=== PATIENT | female | born 1935 | race Caucasian/White ===

== ENCOUNTER 2016-08-29 14:06 | Inpatient (IN) | payer OTHER ==
[2016-08-29 16:04] LABS: BASOPHIL 1.2 % (0-2.0); EOSINOPHIL 2.9 % (0-4.5); MCHC 32.4 g/dl (32.0-36.0); MEAN CELL VOLUME 89.5 fl (80-96); MEAN PLT VOLUME 7.9 fl (7.5-11.1); NEUTROPHILS 77.4 % (42.8-82.8); PLATELET COUNT 467 K/MM3 (134-434); RDW 12.6 % (11.6-15.6); WHITE BLOOD COUNT 13.8 K/mm3 (4.0-10.0)
[2016-08-29 16:20] LABS: INR 1.05 (0.82-1.09); PROTHROMBIN TIME (PATIENT) 11.6 SEC (9.98-11.88)
[2016-08-29 16:31] LABS: ALBUMIN 2.5 g/dl (3.4-5.0); BILIRUBIN,TOTAL 0.1 mg/dL (0.2-1.0); CALCIUM 8.3 mg/dL (8.5-10.1); CREATININE 2.1 mg/dL (0.55-1.02); TOT PROT 6.7 g/dl (6.4-8.2)
--- NOTE | 2016-08-29 17:13 | PDOC ---
[id number] Source: Patient Exam Limitations: No Limitations - History of Present Illness Initial Comments: 81 yo F history DM presents with B/L foot wounds. She states that she had an x- ray of the left foot as an outpatient, which was suggestive of osteomyelitis. She states that she has some pain in the left foot. However, she also notes that she has redness and pain to the right foot, which is much worse. She periodically develops cellulitis. She has been unable to wear her regular shoes , as they have been rubbing on the ulcers on her feet. She has been wearing hard orthopedic shoes. <Paulina Flores - Last Filed: 08/29/16 23:31> - General Chief Complaint: Pain Stated Complaint: FEET PAIN Time Seen by Provider: 08/29/16 16:08 Past History <Adarsh Tripathi - Last Filed: 08/29/16 19:01> - Past Medical History Anemia: Yes Asthma: No Cancer: No Cardiac Disorders: Yes (PAD) CVA: No COPD: No CHF: No DVT: No Dementia: No Diabetes: Yes GI Disorders: No Disorders: No HTN: Yes Hypercholesterolemia: Yes Liver Disease: No Suicide Attempt (Hx): No Seizures: No Thyroid Disease: No - Surgical History Abdominal Surgery: No Appendectomy: No Cardiac Surgery: Yes (FEMORAL BYPASS) Cholecystectomy: Yes Lung Surgery: No Neurologic Surgery: No Orthopedic Surgery: No - Family Disease History Family Disease History: CA: Father (lung), Brother, Sister - Immunization History Immunization Up to Date: Yes - Psycho/Social/Smoking Cessation Hx Anxiety: No Suicidal Ideation: No Smoking Status: Yes Smoking History: Current every day smoker Have you smoked in the past 12 months: Yes Number of Cigarettes Smoked Daily: 20 If you are a former smoker, when did you quit?: 08/10/2012 Cigars Per Day: 0 Information on smoking cessation initiated: No 'Breaking Loose' booklet given: 10/13/15 Hx Alcohol Use: No Drug/Substance Use Hx: No Substance Use Type: None Hx Substance Use Treatment: No <Paulina Flores - Last Filed: 08/29/16 23:31> - Past Medical History Allergies/Adverse Reactions: Allergies Allergy/AdvReac Type Severity Reaction Status Date / Time iodine Allergy Rash Verified 08/29/16 14:28 penicillin V Allergy Verified 08/29/16 14:28 shellfish derived Allergy Rash Verified 08/29/16 14:28 vancomycin Allergy Verified 08/29/16 14:28 azithromycin AdvReac Verified 08/29/16 14:28 Home Medications: Ambulatory Orders Alprazolam 0.25 mg PO BID PRN 08/29/16 Amitriptyline HCl [Elavil -] 50 mg PO HS 08/29/16 Ascorbic Acid [Vitamin C -] 500 mg PO DAILY 08/29/16 Atorvastatin Ca [Lipitor] 10 mg PO HS 08/29/16 Ferrous Sulfate 325 mg PO BID 08/29/16 Furosemide [Lasix] 20 mg PO DAILY 08/29/16 Glipizide [Glipizide ER] 2.5 mg PO DAILY 08/29/16 Isosorbide Mononitrate [Isosorbide Mononitrate ER] 30 mg PO DAILY 08/29/16 Lactobacillus Acidophilus [Bacid -] 1 each PO BID 08/29/16 Metoprolol Tartrate 100 mg PO BID 08/29/16 Nifedipine ER [Procardia Xl -] 60 mg PO BID 08/29/16 Ondansetron [Zofran -] 4 mg PO PRN PRN 08/29/16 Ramipril 10 mg PO DAILY 08/29/16 Review of Systems - Review of Systems Able to Perform ROS?: Yes Comments:: GENERAL/CONSTITUTIONAL: No fever or chills. No weakness. HEAD, EYES, EARS, NOSE AND THROAT: No change in vision. No ear pain or discharge. No sore throat. CARDIOVASCULAR: No chest pain or shortness of breath. RESPIRATORY: No cough, wheezing, or hemoptysis. GASTROINTESTINAL: No nausea, vomiting, diarrhea or constipation. GENITOURINARY: No dysuria, frequency, or change in urination. MUSCULOSKELETAL: No muscle swelling or pain. No neck or back pain. +B/L foot pain. SKIN: +B/L foot ulcers. +Redness R foot. NEUROLOGIC: No headache, vertigo, loss of consciousness, or change in strength/ sensation. ENDOCRINE: No increased thirst. No abnormal weight change. HEMATOLOGIC/LYMPHATIC: No anemia, easy bleeding, or history of blood clots. ALLERGIC/IMMUNOLOGIC: No hives or skin allergy. <Paulina Flores - Last Filed: 08/29/16 23:31> *Physical Exam - Vital Signs Last Vital Signs Temp Pulse Resp BP Pulse Ox 98.5 F 88 18 145/75 99 08/29/16 14:23 08/29/16 14:23 08/29/16 14:23 08/29/16 14:23 08/29/16 14:23 <Adarsh Tripathi - Last Filed: 08/29/16 19:01> - Vital Signs Last Vital Signs Temp Pulse Resp BP Pulse Ox 98.5 F 88 18 145/75 99 08/29/16 14:23 08/29/16 14:23 08/29/16 14:23 08/29/16 14:23 08/29/16 14:23 - Physical Exam Comments: GENERAL: Awake, alert, and fully oriented, in no acute distress HEAD: No signs of trauma EYES: PERRLA, EOMI, sclera anicteric, conjunctiva clear ENT: Auricles normal inspection, hearing grossly normal, nares patent, oropharynx clear without exudates. Moist mucosa NECK: Normal ROM, supple, no lymphadenopathy, JVD, or masses LUNGS: Breath sounds equal, clear to auscultation bilaterally. No wheezes, and no crackles HEART: Regular rate and rhythm, normal S1 and S2, no murmurs, rubs or gallops ABDOMEN: Soft, nontender, normoactive bowel sounds. No guarding, no rebound. No masses EXTREMITIES: Normal range of motion. No clubbing or cyanosis. No cords. R foot with 1st toe amputation, well-healed. R 2nd toe with ulceration on the dorsal surface. +Erythema to the R foot extending into the medial ankle. L foot with ulcerated lesion to the instep. Trace surrounding erythema. NEUROLOGICAL: Cranial nerves II through XII grossly intact. Normal speech, normal gait SKIN: Warm, Dry, normal turgor, no rashes or lesions except as needed. <Paulina Flores - Last Filed: 08/29/16 23:31> Heart Score/ECG Review - ECG Impressions Comment:: EKG read 16:28- NSR 75 bpm, +LVH <Paulina Flores - Last Filed: 08/29/16 23:31> ED Treatment Course - LABORATORY CBC & Chemistry Diagram: 08/29/16 15:32 08/29/16 15:32 - ADDITIONAL ORDERS Additional order review: Laboratory Results 08/29/16 08/29/16 15:55 15:32 INR 1.05 Sodium 140 Potassium 3.9 Chloride 106 Carbon Dioxide 24 Anion Gap 10 BUN 30 H Creatinine 2.1 H D Creat Clearance w eGFR 22.72 Random Glucose 246 H Calcium 8.3 L Total Bilirubin 0.1 L AST 9 L D ALT 13 D Alkaline Phosphatase 88 D Total Protein 6.7 Albumin 2.5 L 08/29/16 15:32 RBC 3.85 MCV 89.5 MCHC 32.4 RDW 12.6 MPV 7.9 Neutrophils % 77.4 Lymphocytes % 12.1 D Monocytes % 6.4 Eosinophils % 2.9 Basophils % 1.2 - RADIOLOGY Radiology Studies Ordered: 08/29/16 19:01 EXAM: RIGHT FOOT X-RAY IMPRESSION: Status post amputation fo the right first toe. Moderate soft tissue swelling over dorsal aspect of the foot. Correlate clinically and correlation MRI would be the study of choice to rule out osteomyelitis, in view of the clinical history. <Adarsh Tripathi - Last Filed: 08/29/16 19:01> - LABORATORY CBC & Chemistry Diagram: 08/29/16 15:32 08/29/16 15:32 - ADDITIONAL ORDERS Additional order review: Laboratory Results 08/29/16 08/29/16 15:55 15:32 INR 1.05 Sodium 140 Potassium 3.9 Chloride 106 Carbon Dioxide 24 Anion Gap 10 BUN 30 H Creatinine 2.1 H D Creat Clearance w eGFR 22.72 Random Glucose 246 H Calcium 8.3 L Total Bilirubin 0.1 L AST 9 L D ALT 13 D Alkaline Phosphatase 88 D Total Protein 6.7 Albumin 2.5 L 08/29/16 15:32 RBC 3.85 MCV 89.5 MCHC 32.4 RDW 12.6 MPV 7.9 Neutrophils % 77.4 Lymphocytes % 12.1 D Monocytes % 6.4 Eosinophils % 2.9 Basophils % 1.2 - RADIOLOGY Radiology Studies Ordered: Category Date Time Status CHEST PA & LAT [RAD] Stat Radiology 08/29/16 15:30 Taken <Paulina Flores - Last Filed: 08/29/16 23:31> Medical Decision Making - Medical Decision Making 08/29/16 17:[address] Barahona. 08/29/16 17:[address] Jarrett Barahona. <Adarsh Tripathi - Last Filed: 08/29/16 19:01> *DC/Admit/Observation/Transfer - Attestations Scribe Attestion: 08/29/16 17:41 Documentation prepared by Adarsh Tripathi, acting as medical appointment scheduler for Paulina Flores MD, . <Adarsh Tripathi - Last Filed: 08/29/16 19:01> - Discharge Dispostion Admit: Yes <Paulina Flores - Last Filed: 08/29/16 23:31> Diagnosis at time of Disposition: Cellulitis and abscess of foot Osteomyelitis Qualifiers: Osteomyelitis location: foot Laterality: right Chronicity: unspecified Qualified Code(s): M86.9 - Osteomyelitis, unspecified - Discharge Dispostion Condition at time of disposition: Stable - Referrals
[2016-08-29] MEDS ORDERED: CLINDAMYCIN 600MG PREMIX IVPB 50 ML IVPB ONE ×2 (17:41→18:22)
[2016-08-29] MEDS ORDERED: LEVOFLOXACIN 500 MG IVPB 100 ML IVPB ONE ×2 (17:41→18:22)
[2016-08-29] MEDS ORDERED: ONDANSETRON 4 MG TABLET PO PRN (18:30)
--- NOTE | 2016-08-29 18:39 | HP ---
Admitting History and Physical - Primary Care Physician PCP: Jarrett Barahona - Admission Chief Complaint: Left foot OM History of Present Illness: Pt with left foot ulcer, on office XR it was noticed to have OM; pt was adviced to come to ER for abtx treatment and further evaluation. History Source: Patient - Past Medical History Cardiovascular: Yes: HTN, Hyperlipdemia, Murmur, Other (PAD) Pulmonary: Yes: Asthma, COPD Hepatobiliary: Yes: Cholelithiasis Heme/Onc: Yes: Anemia Infectious Disease: Yes: Other (history of osteomyelitis in the past) Endocrine: Yes: Diabetes Mellitus - Past Surgical History Past Surgical History: Yes: Amputation (1-st R toe amputation), Bypass (Right fem pop bypass) - Smoking History Smoking history: Current every day smoker Have you smoked in the past 12 months: Yes Aproximately how many cigarettes per day: 20 If you are a former smoker, when did you quit?: 08/10/2012 - Alcohol/Substance Use Hx Alcohol Use: No History of Substance Use: reports: None - Social History ADL: Independent 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, 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, 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 Travel: No Home Medications - Allergies Allergies/Adverse Reactions: Allergies Allergy/AdvReac Type Severity Reaction Status Date / Time iodine Allergy Rash Verified 08/29/16 14:28 penicillin V Allergy Verified 08/29/16 14:28 shellfish derived Allergy Rash Verified 08/29/16 14:28 vancomycin Allergy Verified 08/29/16 14:28 azithromycin AdvReac Verified 08/29/16 14:28 - Home Medications Home Medications: Ambulatory Orders Alprazolam 0.25 mg PO BID PRN 08/29/16 Amitriptyline HCl [Elavil -] 50 mg PO HS 08/29/16 Ascorbic Acid [Vitamin C -] 500 mg PO DAILY 08/29/16 Atorvastatin Ca [Lipitor] 10 mg PO HS 08/29/16 Ferrous Sulfate 325 mg PO BID 08/29/16 Furosemide [Lasix] 20 mg PO DAILY 08/29/16 Glipizide [Glipizide ER] 2.5 mg PO DAILY 08/29/16 Isosorbide Mononitrate [Isosorbide Mononitrate ER] 30 mg PO DAILY 08/29/16 Lactobacillus Acidophilus [Bacid -] 1 each PO BID 08/29/16 Metoprolol Tartrate 100 mg PO BID 08/29/16 Nifedipine ER [Procardia Xl -] 60 mg PO BID 08/29/16 Ondansetron [Zofran -] 4 mg PO PRN PRN 08/29/16 Ramipril 10 mg PO DAILY 08/29/16 Family Disease History - Family Disease History Family Disease History: CA: Father (lung ca), Mother (, lung ca), Sister (lung ca) Review of Systems - Review of Systems Constitutional: denies: Chills, Fever Eyes: denies: Blurred Vision, Double Vision, Eye Pain HENT: reports: Throat Pain. denies: Ear Discharge, Ear Pain, Nasal Congestion Neck: denies: Decreased ROM, Stiffness Cardiovascular: denies: Chest Pain, Edema, Palpitations, Shortness of Breath Respiratory: denies: Cough, SOB, SOB on Exertion Gastrointestinal: denies: Abdominal Pain, Diarrhea, Vomiting Genitourinary: denies: Burning, Discharge, Dysuria, Flank Pain Musculoskeletal: denies: Back Pain, Muscle Pain Integumentary: reports: Eczema, Rash, Other. denies: Bruising Neurological: denies: Change in LOC Endocrine: denies: Excessive Sweating, Intolerance to Cold Hematology/Lymphatic: denies: Easily Bruised, Excessive Bleeding Psychiatric: denies: Anxiety, Depression Physical Examination Vital Signs: Vital Signs Temperature 98.5 F 08/29/16 14:23 Pulse Rate 88 08/29/16 14:23 Respiratory Rate 18 08/29/16 14:23 Blood Pressure 145/75 08/29/16 14:23 O2 Sat by Pulse Oximetry (%) 99 08/29/16 14:23 Constitutional: Yes: No Distress, Calm Eyes: Yes: Conjunctiva Clear, EOM Intact, PERRL HENT: Yes: Normocephalic. No: Pharyngeal Erythema Neck: Yes: Trachea Midline. No: Lymphadenopathy Cardiovascular: Yes: Regular Rate and Rhythm, S1, S2 Respiratory: Yes: Regular, CTA Bilaterally, Other (coarse BS) Gastrointestinal: Yes: Normal Bowel Sounds, Soft. No: Tenderness ...Rectal Exam: Yes: Deferred Renal/: No: Bladder Distention, CVA Tenderness - Left, CVA Tenderness - Right Extremities: Yes: Other (Right leg (below knee)with erythema, calor, swelling, pain with palpation; 2-nd toe with ulcer. Left). No: Cold, Cool Edema: RLE: 1+ Neurological: Yes: Alert, Oriented, Other ( ogor and sensory symmetric in UE, LE , Face) Psychiatric: Yes: Alert, Oriented Labs: CBC, BMP 08/29/16 15:32 08/29/16 15:32 Imaging - Results X-ray: Report Reviewed Problem List - Problems (1) Osteomyelitis Assessment/Plan: BAtx ID consult Code(s): M86.9 - OSTEOMYELITIS, UNSPECIFIED Qualifiers: Osteomyelitis location: foot Laterality: right Chronicity: unspecified Qualified Code(s): M86.9 - Osteomyelitis, unspecified (2) Diabetes Assessment/Plan: cont current meds F/u BGM Code(s): E11.9 - TYPE 2 DIABETES MELLITUS WITHOUT COMPLICATIONS Qualifiers: Diabetes mellitus type: type 2 Diabetes mellitus complication status: with skin complications Diabetes mellitus complication detail: with foot ulcer (3) Cellulitis of right foot due to methicillin-resistant Staphylococcus aureus Code(s): L03.115 - CELLULITIS OF RIGHT LOWER LIMB B95.62 - METHICILLIN RESIS STAPH INFCT CAUSING DISEASES CLASSD ELSWHR (4) Cellulitis of left foot Code(s): L03.116 - CELLULITIS OF LEFT LOWER LIMB Assessment/Plan AM Labs
[2016-08-29] MEDS ORDERED: ACETAMINOPHEN 325 MG TABLET (FP) PO SCH (18:45)
[2016-08-29] MEDS ORDERED: ACETAMINOPHEN 325 MG TABLET (FP) ONE (20:04)
[2016-08-29] MEDS ORDERED: OXYCODONE/APAP 5/325MG COMBO TABLET PO ONE (21:18)
[2016-08-29] MEDS ORDERED: PATIENT'S OWN MEDICATION (NON-FORMULARY) (Metoprolol Tartrate [Metoprolol Tartrate] 100 MG PO SCH (22:00)
[2016-08-29] MEDS ORDERED: AMITRIPTYLINE HCL 50 MG TABLET PO SCH (22:00)
[2016-08-29] MEDS ORDERED: PATIENT'S OWN MEDICATION (NON-FORMULARY) (Ferrous Sulfate [Ferrous Sulfate] 325 MG) PO SCH (22:00)
[2016-08-29] MEDS: LACTOBACILLUS ACIDOPHILUS 1 EACH TAB (FP) PO SCH (23:57)
[2016-08-29] MEDS: FERROUS SO4 325 MG TABLET (FP) PO SCH (23:57)
[2016-08-29] MEDS: ATORVASTATIN CA 10 MG TABLET (FP) PO SCH (23:57)
[2016-08-30] MEDS: AMITRIPTYLINE HCL 25 MG TABLET (FP) PO SCH ×2 (00:01→21:44)
[2016-08-30] MEDS: ACETAMINOPHEN 325 MG TABLET (FP) PO SCH ×4 (00:01→17:44)
[2016-08-30 00:31] VITALS: BMI 22.4
[2016-08-30] MEDS: CLINDAMYCIN 600MG PREMIX IVPB 50 ML IVPB SCH ×2 (02:59→10:19)
[2016-08-30] MEDS: glipiZIDE-XL 2.5 MG TAB.ER.24 PO SCH (06:37)
[2016-08-30 07:16] LABS: MCH 30.6 pg (25.7-33.7); MEAN CELL VOLUME 89.8 fl (80-96); MEAN PLT VOLUME 7.8 fl (7.5-11.1); PLATELET COUNT 380 K/MM3 (134-434); RDW 12.4 % (11.6-15.6); WHITE BLOOD COUNT 13.1 K/mm3 (4.0-10.0)
[2016-08-30 07:35] LABS: ALBUMIN 2.1 g/dl (3.4-5.0); CALCIUM 8.1 mg/dL (8.5-10.1); CREATININE 2.2 mg/dL (0.55-1.02)
[2016-08-30 07:37] LABS: BILIRUBIN,TOTAL 0.3 mg/dL (0.2-1.0); TOT PROT 5.6 g/dl (6.4-8.2)
--- NOTE | 2016-08-30 10:15 | PN ---
[id number] List Current Medications: Active Medications Acetaminophen (Tylenol -) 650 mg PO Q6HPO [facility] Last Admin: 08/30/16 06:37 Dose: 650 mg Alprazolam (Xanax -) 0.25 mg PO Q12H PRN PRN Reason: ANXIETY Amitriptyline HCl (Elavil -) 50 mg PO HS [facility] Last Admin: 08/30/16 00:01 Dose: 50 mg Ascorbic Acid (Vitamin C -) 500 mg PO DAILY [facility] Atorvastatin Calcium (Lipitor -) 10 mg PO HS [facility] Last Admin: 08/29/16 23:57 Dose: 10 mg Ferrous Sulfate (Feosol -) 325 mg PO BID [facility] Last Admin: 08/29/16 23:57 Dose: 325 mg Glipizide (Glucotrol Xl -) 2.5 mg PO ACBK [facility] Last Admin: 08/30/16 06:37 Dose: 2.5 mg Clindamycin Phosphate (Cleocin 600 Mg Premix Ivpb -) 50 mls @ 100 mls/hr IVPB Q6H-IV [facility] Last Admin: 08/30/16 02:59 Dose: 100 mls/hr Isosorbide Mononitrate (Imdur -) 30 mg PO DAILY [facility] Lactobacillus Acidophilus (Bacid -) 1 tab PO BID [facility] Last Admin: 08/29/16 23:57 Dose: 1 tab Metoprolol Tartrate (Lopressor -) 100 mg PO BID [facility] Last Admin: 08/30/16 00:00 Dose: Not Given Nifedipine (Procardia Xl -) 60 mg PO BID [facility] Last Admin: 08/30/16 00:00 Dose: Not Given Ondansetron HCl (Zofran -) 4 mg PO Q8H PRN PRN Reason: NAUSEA - Objective Vital Signs: Vital Signs Temperature 98.2 F 08/30/16 06:43 Pulse Rate 83 08/30/16 06:43 Respiratory Rate 20 08/29/16 19:48 Blood Pressure 134/59 08/30/16 06:43 O2 Sat by Pulse Oximetry (%) 99 08/29/16 19:48 Constitutional: Yes: No Distress Eyes: Yes: Conjunctiva Clear HENT: Yes: Atraumatic Neck: Yes: Supple Cardiovascular: Yes: Regular Rate and Rhythm Respiratory: Yes: CTA Bilaterally Gastrointestinal: Yes: Soft. No: Distention, Tenderness Musculoskeletal: No: Joint Stiffness, Joint Swelling Extremities: Yes: Other (R foot toe and foot rash and swelling). No: Cold, Cool Edema: No Peripheral Pulses WNL: Yes Integumentary: No: Pressure Ulcer, Venous Stasis Changes Neurological: Yes: WNL, Alert, Oriented ...Motor Strength: WNL Psychiatric: Yes: WNL, Alert, Oriented. No: Agitated Labs: CBC, BMP 08/30/16 06:25 08/30/16 06:25 INR, PTT INR 1.05 (0.82-1.09) 08/29/16 15:55 - ....Imaging Other: Report Reviewed Assessment/Plan ASHD PVD smoker, h/o foot osteomyelitis DM, CRF R foot cellulitis r/o osteomyelitis IV ATB per ID foot MRI or bone scan stop smoking falls PFX continue meds, d/w pt
[2016-08-30] MEDS: LACTOBACILLUS ACIDOPHILUS 1 EACH TAB (FP) PO SCH ×2 (10:20→21:45)
[2016-08-30] MEDS: ISOSORBIDE MONONITRATE 30 MG TAB.SR.24H (FP) PO SCH (10:20)
[2016-08-30] MEDS: NIFEdipine E.R 60 MG TABLET (UD) PO SCH ×3 (10:20→21:45)
[2016-08-30] MEDS: METOPROLOL TARTRATE 50 MG TABLET (FP) PO SCH ×3 (10:20→21:45)
[2016-08-30] MEDS: ASCORBIC ACID 500 MG TABLET (FP) PO SCH (10:21)
[2016-08-30] MEDS: FERROUS SO4 325 MG TABLET (FP) PO SCH ×2 (10:21→21:45)
--- NOTE | 2016-08-30 11:19 | PN ---
Progress Note (short form) - Note Progress Note: ID Consult dictated Cellulitis R foot Infected ulcer, possible osteomyelitis R 2nd toe Cellulitis L foot, possible osteomyelitis L 1st MT head Multiple antibiotic allergies DM Hx MRSA Azotemia Await c/s Obtain ESR CRP MRI Surgical evaluation [facility] ceftaroline
--- NOTE | 2016-08-30 12:51 | CONS ---
DATE OF CONSULTATION: HISTORY: The patient is a 81-year-old female evaluated for cellulitis of the feet bilaterally. The patient has had a history of infected diabetic foot ulcers, cellulitis, and osteomyelitis in the past. She now presents with cellulitis of the feet bilaterally. The patient reports wearing ill-fitting shoes. She had developed erythema involving the left 1st metatarsal head as well as the 2nd right toe. She now has ulcerations present over the left 1st metatarsal head and dorsal aspect of the right 2nd toe. She did notice some drainage from the 2nd toe. She presented to her primary care doctor where x-rays were done as an outpatient. She was admitted with a possible diagnosis of osteomyelitis. She denies any pain. No associated fever or chills. The patient has had a long history of diabetic foot infections. She has had osteomyelitis of the right great toe in the past and is status post amputation 2012. She was recently hospitalized with cellulitis and osteomyelitis of the foot in July 2016. She has a remote history of MRSA from a wound culture. PAST MEDICAL HISTORY: Positive for diabetes, history of diabetic foot infections including cellulitis and osteomyelitis, atrial fibrillation, hypertension, hyperlipidemia, chronic obstructive pulmonary disease. PAST SURGICAL HISTORY: Status post acute cholecystitis. She is status post cholecystectomy. Her hospital course in March 2016 was complicated by gallstone pancreatitis, respiratory failure requiring intubation. She is status post right femoropopliteal bypass and amputation of the right great toe. ALLERGIES: IODINE, PENICILLIN, VANCOMYCIN, and ZITHROMAX. The PENICILLIN allergy consisted of a rash many years ago. VANCOMYCIN primarily is GI intolerance. She has tolerated cephalosporins and carbapenems in the past. MEDICATIONS: Include nifedipine, metoprolol, ramipril, isosorbide, aspirin, Glipizide, Bacid, Elavil, alprazolam, Lasix, Lipitor. SOCIAL HISTORY: Lives in the community. Positive history of tobacco use. REVIEW OF SYSTEMS: Neurologic: No loss of consciousness, seizure activity, focal weakness. Cardiac: Negative chest pain or palpitations. Respiratory: Negative cough or sputum production. Gastrointestinal: Negative vomiting or diarrhea. Genitourinary: Negative for urinary tract infection LABORATORY DATA: White count 13.1, hematocrit 27.6, platelet count 380, BUN 30, creatinine 2.2. Blood cultures pending. PHYSICAL EXAMINATION: General: She is in no acute distress. Vital Signs: Temperature 98.2, blood pressure 134/59, pulse 75 and regular, respirations 20 per minute. HEENT: Sclerae anicteric. Heart: Sounds irregular. S1, S2. Lungs: Clear. Abdomen: Soft. No tenderness elicited. No mass, rebound, or rigidity. Extremities: Lower extremities: There is a superficial ulceration present over the medial aspect of the left 1st metatarsal head approximately 1 cm in diameter. There is surrounding erythema, warmth, and swelling. No expressible pus. Examination of the right foot, she is status post amputation of the right great toe. There is diffuse swelling of the right 2nd toe with a 1-cm ulceration present over the dorsal aspect of the toe with scant amount of drainage. There is erythema extending to the dorsum of the foot. IMPRESSION: 1. Cellulitis right foot. 2. Infected ulcer, possibly osteomyelitis of the right 2nd toe. 3. Cellulitis of the left foot, possible osteomyelitis of the left 1st metatarsal head. 4. Multiple antibiotic allergies. 5. Diabetes mellitus. 6. History of methicillin-resistant Staphylococcus aureus. Blood cultures were obtained. We will obtain wound culture, sedimentation rate, C-reactive protein, MRI of the feet, surgical evaluation. [facility] antibiotic coverage in this patient with multiple allergies with Ceftaroline adjusted for azotemia. Local wound care. We will follow. Thank you for the kind referral. DELMY MCCABE M.D. [id number]
[2016-08-30] MEDS: CEFTAROLINE FOSAMIL ACETATE 400 MG in DEXTROSE 5%-WATER - 100 ML IVPB SCH ×2 (16:48→23:37)
[2016-08-30] MEDS ORDERED: PT OWN MED DRAWER 7, Y5N ONE ×2 (17:37→21:16)
--- NOTE | 2016-08-30 18:04 | EKG ---
Test Reason : Blood Pressure : / mmHG Vent. Rate : 075 BPM Atrial Rate : 075 BPM P-R Int : 166 ms QRS Dur : 096 ms QT Int : 396 ms P-R-T Axes : 033 012 063 degrees QTc Int : 442 ms NORMAL SINUS RHYTHM MINIMAL VOLTAGE CRITERIA FOR LVH, MAY BE NORMAL VARIANT NONSPECIFIC ST ABNORMALITY ABNORMAL ECG WHEN COMPARED WITH ECG OF 01-MAY-2016 19:17, NO SIGNIFICANT CHANGE WAS FOUND Confirmed by AFSHAN NOYOLA MD ([id number]) on 08/30/2016 6:04:27 PM Referred By: Confirmed By:AFSHAN NOYOLA MD
[2016-08-30] MEDS: oxyCODONE HCL 5 MG TABLET PO PRN (21:44)
[2016-08-30] MEDS: ACETAMINOPHEN 325 MG TABLET (FP) PO PRN (21:45)
[2016-08-30] MEDS: ATORVASTATIN CA 10 MG TABLET (FP) PO SCH (21:45)
[2016-08-30] MEDS: ALPRAZolam 0.25 MG TABLET PO PRN (23:37)
[2016-08-31] MEDS: ACETAMINOPHEN 325 MG TABLET (FP) PO SCH ×4 (00:47→17:21)
[2016-08-31] MEDS ORDERED: PT OWN MED DRAWER 7, Y5N ONE ×3 (05:13→20:41)
[2016-08-31] MEDS: glipiZIDE-XL 2.5 MG TAB.ER.24 PO SCH (06:07)
[2016-08-31 07:56] LABS: BASOPHIL 0.8 % (0-2.0); EOSINOPHIL 4.5 % (0-4.5); MCH 30.7 pg (25.7-33.7); MCHC 34.4 g/dl (32.0-36.0); MEAN CELL VOLUME 89.4 fl (80-96); NEUTROPHILS 65.7 % (42.8-82.8); PLATELET COUNT 405 K/MM3 (134-434); RDW 12.4 % (11.6-15.6); WHITE BLOOD COUNT 12.8 K/mm3 (4.0-10.0)
[2016-08-31 08:30] LABS: CALCIUM 7.7 mg/dL (8.5-10.1); CREATININE 2.9 mg/dL (0.55-1.02)
[2016-08-31 09:39] LABS: ERYTHROCYTE SEDIMENTATION RATE > 130 mm/hr (0-30)
[2016-08-31] MEDS: LACTOBACILLUS ACIDOPHILUS 1 EACH TAB (FP) PO SCH ×2 (09:48→21:08)
[2016-08-31] MEDS: NIFEdipine E.R 60 MG TABLET (UD) PO SCH ×2 (09:48→21:11)
[2016-08-31] MEDS: FERROUS SO4 325 MG TABLET (FP) PO SCH ×2 (09:49→21:09)
[2016-08-31] MEDS: METOPROLOL TARTRATE 50 MG TABLET (FP) PO SCH ×2 (09:49→21:09)
[2016-08-31] MEDS: ASCORBIC ACID 500 MG TABLET (FP) PO SCH (09:49)
[2016-08-31] MEDS: CEFTAROLINE FOSAMIL ACETATE 400 MG in DEXTROSE 5%-WATER - 100 ML IVPB SCH ×2 (09:52→21:11)
[2016-08-31] MEDS: ISOSORBIDE MONONITRATE 30 MG TAB.SR.24H (FP) PO SCH (09:52)
--- NOTE | 2016-08-31 11:29 | PN ---
Progress Note, Physician Chief Complaint: still with foot pain,asked for percocet prn - Current Medication List Current Medications: Active Medications Acetaminophen (Tylenol -) 650 mg PO Q6HPO [facility] Last Admin: 08/31/16 06:08 Dose: 650 mg Acetaminophen (Tylenol -) 325 mg PO BID PRN PRN Reason: PAIN Last Admin: 08/30/16 21:45 Dose: 325 mg Alprazolam (Xanax -) 0.25 mg PO Q12H PRN PRN Reason: ANXIETY Last Admin: 08/30/16 23:37 Dose: 0.25 mg Amitriptyline HCl (Elavil -) 50 mg PO HS [facility] Last Admin: 08/30/16 21:44 Dose: 50 mg Ascorbic Acid (Vitamin C -) 500 mg PO DAILY [facility] Last Admin: 08/31/16 09:49 Dose: 500 mg Atorvastatin Calcium (Lipitor -) 10 mg PO HS [facility] Last Admin: 08/30/16 21:45 Dose: 10 mg Ferrous Sulfate (Feosol -) 325 mg PO BID [facility] Last Admin: 08/31/16 09:49 Dose: 325 mg Glipizide (Glucotrol Xl -) 2.5 mg PO ACBK [facility] Last Admin: 08/31/16 06:07 Dose: 2.5 mg Ceftaroline Fosamil 400 mg/ (Dextrose) 100 mls @ 100 mls/hr IVPB BID [facility] Last Admin: 08/31/16 09:52 Dose: 100 mls/hr Isosorbide Mononitrate (Imdur -) 30 mg PO DAILY [facility] Last Admin: 08/31/16 09:52 Dose: 30 mg Lactobacillus Acidophilus (Bacid -) 1 tab PO BID [facility] Last Admin: 08/31/16 09:48 Dose: 1 tab Metoprolol Tartrate (Lopressor -) 100 mg PO BID [facility] Last Admin: 08/31/16 09:49 Dose: 100 mg Nifedipine (Procardia Xl -) 60 mg PO BID [facility] Last Admin: 08/31/16 09:48 Dose: 60 mg Ondansetron HCl (Zofran -) 4 mg PO Q8H PRN PRN Reason: NAUSEA Oxycodone HCl (Roxicodone -) 5 mg PO BID PRN PRN Reason: PAIN Last Admin: 08/30/16 21:44 Dose: 5 mg - Objective Vital Signs: Vital Signs Temperature 97.9 F 08/31/16 06:56 Pulse Rate 60 08/31/16 06:56 Respiratory Rate 20 08/31/16 06:56 Blood Pressure 100/50 08/31/16 06:56 O2 Sat by Pulse Oximetry (%) 99 08/30/16 22:00 Constitutional: Yes: No Distress Eyes: Yes: Conjunctiva Clear HENT: Yes: Atraumatic Neck: Yes: Supple Cardiovascular: Yes: Regular Rate and Rhythm Respiratory: Yes: CTA Bilaterally Gastrointestinal: Yes: Soft. No: Distention, Tenderness Musculoskeletal: No: Joint Stiffness, Joint Swelling Extremities: Yes: Other (R foot toe wound rash and some swelling, a little better today). No: Calf Tenderness, Cold Edema: No Peripheral Pulses WNL: Yes Integumentary: No: Pressure Ulcer, Venous Stasis Changes Neurological: Yes: WNL, Alert, Oriented ...Motor Strength: WNL Psychiatric: Yes: WNL, Alert, Oriented. No: Agitated Labs: CBC, BMP 08/31/16 06:20 08/31/16 06:20 INR, PTT INR 1.05 (0.82-1.09) 08/29/16 15:55 - ....Imaging Other: Report Reviewed Assessment/Plan ASHD PVD smoker, h/o foot osteomyelitis DM, CRF ARF on CRF creat 2.9 R foot cellulitis r/o osteomyelitis IV ATB per ID foot MRI or bone scan, ID f/u vascular sx, podiatry eval renal eval gentle IVF started percocet prn, d/w pt risks and falls tolerance addiction, constipation etc, to use as needed only stools softeners prn stop smoking falls PFX continue meds, d/w pt t time 40 min
[2016-08-31] MEDS: DOCUSATE SODIUM 100 MG CAPSULE (FP) PO SCH (11:57)
[2016-08-31] MEDS: SODIUM CHLORIDE 1,000 ML IV SCH (11:57)
--- NOTE | 2016-08-31 12:45 | CONSULT ---
Consult - text type - Consultation Consultation Note: Renal Consult for AGUSTÍN on CKD This is a 81 year old woman with PMhx of CKD stage 3 (baseline Cr 1-1.2), Renal Artery stenosis (30% no intervention), Hypertension, DM Type 2, PVD who presented with suspected osteomylitis on b/l feet and found to have AGUSTÍN with BUN /Cr of 30/2.9. Pt states that she had been using frequent Advil for 2 weeks for her foot pain. She was also on Ramipril for hypertension at home. Reports good oral intake. No N/V/D. No chest pain or sob. No fever or chills. Good urine output. No hematuria. No Flank pain. PMhx: as above allergies: NKDA Family hx: NC Social Hx: No T/A/D ROS: as per HPI, all other pertinent ros negative Home Meds: Medication Instructions Recorded Alprazolam 0.25 mg PO BID PRN 08/29/16 Amitriptyline HCl [Elavil -] 50 mg PO HS 08/29/16 Ascorbic Acid [Vitamin C -] 500 mg PO DAILY 08/29/16 Atorvastatin Ca [Lipitor] 10 mg PO HS 08/29/16 Ferrous Sulfate 325 mg PO BID 08/29/16 Furosemide [Lasix] 20 mg PO DAILY 08/29/16 Glipizide [Glipizide ER] 2.5 mg PO DAILY 08/29/16 Isosorbide Mononitrate [Isosorbide 30 mg PO DAILY 08/29/16 Mononitrate ER] Lactobacillus Acidophilus [Bacid -] 1 each PO BID 08/29/16 Metoprolol Tartrate 100 mg PO BID 08/29/16 Nifedipine ER [Procardia Xl -] 60 mg PO BID 08/29/16 Ondansetron [Zofran -] 4 mg PO PRN PRN 08/29/16 Ramipril 10 mg PO DAILY 08/29/16 Vital Signs Temperature 97.9 F 08/31/16 06:56 Pulse Rate 60 08/31/16 06:56 Respiratory Rate 20 08/31/16 06:56 Blood Pressure 100/50 08/31/16 06:56 O2 Sat by Pulse Oximetry (%) 99 08/30/16 22:00 Intake & Output 08/28/16 08/29/16 08/30/16 08/31/16 23:59 23:59 23:59 23:59 Intake Total 120 1400 250 Balance 120 1400 250 Weight 126 lb 6.4 oz Gen: NAD, awake and alert HEENT: NC/AT, MMM, No JVD, Neck Supple CVS: RRR, No M/R Lungs: CTA Abd: soft NT/ND Ext: Trace edema b/l. + erythema on right 2nd digit. Derssing on left foot. Neuro: AAOx3, no focal defects : No bladder distension CBC, BMP 08/31/16 06:20 08/31/16 06:20 Current Medications Acetaminophen (Tylenol -) 650 mg PO Q6HPO [facility] Last Admin: 08/31/16 11:58 Dose: 650 mg Acetaminophen (Tylenol -) 325 mg PO BID PRN PRN Reason: PAIN Last Admin: 08/30/16 21:45 Dose: 325 mg Alprazolam (Xanax -) 0.25 mg PO Q12H PRN PRN Reason: ANXIETY Last Admin: 08/30/16 23:37 Dose: 0.25 mg Amitriptyline HCl (Elavil -) 50 mg PO HS [facility] Last Admin: 08/30/16 21:44 Dose: 50 mg Ascorbic Acid (Vitamin C -) 500 mg PO DAILY [facility] Last Admin: 08/31/16 09:49 Dose: 500 mg Atorvastatin Calcium (Lipitor -) 10 mg PO HS [facility] Last Admin: 08/30/16 21:45 Dose: 10 mg Docusate Sodium (Colace -) 100 mg PO DAILY [facility] Last Admin: 08/31/16 11:57 Dose: 100 mg Ferrous Sulfate (Feosol -) 325 mg PO BID [facility] Last Admin: 08/31/16 09:49 Dose: 325 mg Glipizide (Glucotrol Xl -) 2.5 mg PO ACBK [facility] Last Admin: 08/31/16 06:07 Dose: 2.5 mg Ceftaroline Fosamil 400 mg/ (Dextrose) 100 mls @ 100 mls/hr IVPB BID [facility] Last Admin: 08/31/16 09:52 Dose: 100 mls/hr Sodium Chloride (Normal Saline -) 1,000 mls @ 50 mls/hr IV ASDIR [facility] Stop: 09/01/16 11:30 Last Admin: 08/31/16 11:57 Dose: 50 mls/hr Insulin Aspart (Novolog Vial Sliding Scale -) 1 vial SQ ACHS [facility] PRN Reason: Protocol Isosorbide Mononitrate (Imdur -) 30 mg PO DAILY [facility] Last Admin: 08/31/16 09:52 Dose: 30 mg Lactobacillus Acidophilus (Bacid -) 1 tab PO BID [facility] Last Admin: 08/31/16 09:48 Dose: 1 tab Metoprolol Tartrate (Lopressor -) 100 mg PO BID [facility] Last Admin: 08/31/16 09:49 Dose: 100 mg Nifedipine (Procardia Xl -) 60 mg PO BID [facility] Last Admin: 08/31/16 09:48 Dose: 60 mg Ondansetron HCl (Zofran -) 4 mg PO Q8H PRN PRN Reason: NAUSEA Oxycodone HCl (Roxicodone -) 5 mg PO BID PRN PRN Reason: PAIN Last Admin: 08/30/16 21:44 Dose: 5 mg A/P 81 year old woman with PMhx of CKD stage 3 (baseline Cr 1-1.2), Renal Artery stenosis (30% no intervention), Hypertension, DM Type 2, PVD who presented with suspected osteomylitis on b/l feet and found to have AGUSTÍN with BUN/Cr of 30/2.9. #Non-oliguirc AGUSTÍN on CKD secondary to NSAID use + JEANETTE -> renal hypoperufison/ATN off ACEi and nsaids at this time Agree with isotonic IVF at 84cc per hour keep MAP> 65 avoid contrast at this time no indication for [employer] Check FeNa Dose all meds for Cr Cl less then 30 #Suspected Osteo elevated ESR/CRP on Ceftaroline as per ID #Hypertension Continue Procardia xl 60mg BID goal BP < 150/90 #Anemia Check iron studies no indication for transfusion thank you Will follow Quentin Goyal DO
[2016-08-31] MEDS: oxyCODONE HCL 5 MG TABLET PO PRN ×2 (15:03→22:07)
[2016-08-31] MEDS: ACETAMINOPHEN 325 MG TABLET (FP) PO PRN ×2 (15:04→22:07)
--- NOTE | 2016-08-31 16:49 | CONSULT ---
Consultation: REQUESTING PROVIDER:Vascular surgery-Dr. Jane CONSULT REQUEST: We have been asked to surgically evaluate this patient for PVD , foot ulcer. HISTORY OF PRESENT ILLNESS:The patient is a 81 yo female known to the surgical service. She has been treated for PVD/osteomyelitis. In the past she had a RLE femoral bypass with 1st toe amputation. All which have healed well. In the past 1 to 2 weeks she noted a progressive right foot swelling with a ulcer on her 2nd toe. This area is red and tender. The patient thinks that it may have started because of poor fitting shoe. She also has a callous on her left great toe(bunion). This area was red a few weeks ago but that has resolved and is mildly tender without any drainage. PMHX: DM, anemia, PVC, asthma/copd, HTN, osteomyelitis PSHX: Right lower ext bypass, right 1st great to amp REVIEW OF SYSTEMS: CONSTITUTIONAL: Absent: fever, chills CARDIOVASCULAR: Absent: chest pain, syncope, palpitations RESPIRATORY: Absent: cough, shortness of breath GASTROINTESTINAL: Absent: abdominal pain, abdominal distension GENITOURINARY: Absent: dysuria, frequency MUSCULOSKELETAL: Absent: myalgia, arthralgia, joint swelling SKIN: Present:right foot swelling, pain and erythema HEMATOLOGIC/IMMUNOLOGIC: Absent: easy bleeding, easy bruising NEUROLOGIC: Absent: headache, no peripheral neuropathy PHYSICAL EXAMINATION Vital Signs Temperature 98.9 F 08/31/16 13:27 Pulse Rate 57 L 08/31/16 13:27 Respiratory Rate 16 08/31/16 13:27 Blood Pressure 101/41 08/31/16 13:27 O2 Sat by Pulse Oximetry (%) 99 08/31/16 09:00 GENERAL: Awake, alert, and fully oriented, in no acute distress. HEAD: Normal with no signs of trauma. EYES: Pupils equal, round and reactive to light NECK: Normal range of motion, supple without lymphadenopathy, JVD, or masses. LUNGS: Breath sounds equal, clear to auscultation bilaterally. HEART: Regular rate and rhythm, normal S1 and S2 without murmur, rub or gallop. ABDOMEN: Soft, nontender, not distended, normoactive bowel sounds, no guarding, no rebound, no masses. MUSCULOSKELETAL: Normal range of motion at all joints. No bony deformities or tenderness. No CVA tenderness. UPPER EXTREMITIES: 2+ pulses, warm, well-perfused. No cyanosis. Cap refill <2 seconds. No peripheral edema. LOWER EXTREMITIES: 2+ pulses, warm, well-perfused. No calf tenderness. Right foot with erythema/swelling. 2nd toe with superficial ulcer. Left great toe with callous, not draining. No erythema. NEUROLOGICAL: Normal speech, gait not observed. PSYCH: Cooperative. Good eye contact. Appropriate mood and affect. SKIN: Warm, dry, normal turgor, no rashes or lesions noted. LABS: Laboratory Results - last 24 hr 08/31/16 08/31/16 08/31/16 06:20 06:20 06:20 WBC 12.8 H RBC 3.10 L Hgb 9.5 L Hct 27.7 L MCV 89.4 MCHC 34.4 RDW 12.4 Plt Count 405 MPV 8.0 Neutrophils % 65.7 Lymphocytes % 18.5 D Monocytes % 10.5 H Eosinophils % 4.5 Basophils % 0.8 ESR > 130 H Sodium 137 Potassium 4.6 Chloride 107 Carbon Dioxide 21 Anion Gap 9 BUN 30 H Creatinine 2.9 H D POC Glucometer Random Glucose 192 H D Calcium 7.7 L C-Reactive Protein 10.8 H D right foot xray-SQ swelling, right 1stoe with mid metatarsal amputation Problem List - Problems (1) Cellulitis of foot, right Assessment/Plan: Pt seen and examined with Dr. Jane, will continue with local wound care. Pt with a history of RLE bypass, clinically with palpable pulse to foot. Now with 2nd toe infection most likely from ill fitting shoe(trauma) IV abx as per ID, her foot remains erythematous and swollen MRI of right foot with/without contrast ordered to evaluate for osteomyelitis Surgery to follow patient. Code(s): L03.115 - CELLULITIS OF RIGHT LOWER LIMB Visit type - Case Type Case Type: ED Admission - Emergency Emergency Visit: Yes ED Registration Date: 08/29/16 Care time: The patient presented to the Emergency Department on the above date and was hospitalized for further evaluation of their emergent condition. - New patient This patient is new to me today: Yes Date on this admission: 08/31/16 - Critical Care Critical Care patient: No
[2016-08-31] MEDS: INSULIN SLIDING SCALE (NOVOLOG) 1 VIAL SQ SCH ×2 (17:21→21:07)
[2016-08-31] MEDS: BACITRACIN 30 GM TUBE TOPICAL OINTMENT TP SCH (18:51)
[2016-08-31] MEDS ORDERED: INSULIN (NOVOLOG) ASPART 100 UNITS/ML 10ML VIAL ONE (18:53)
[2016-08-31] MEDS: AMITRIPTYLINE HCL 25 MG TABLET (FP) PO SCH (21:08)
[2016-08-31] MEDS: ATORVASTATIN CA 10 MG TABLET (FP) PO SCH (21:09)
[2016-09-01] MEDS: ACETAMINOPHEN 325 MG TABLET (FP) PO SCH ×4 (00:43→17:30)
[2016-09-01] MEDS: glipiZIDE-XL 2.5 MG TAB.ER.24 PO SCH (06:27)
[2016-09-01] MEDS: INSULIN SLIDING SCALE (NOVOLOG) 1 VIAL SQ SCH ×3 (06:28→16:38)
[2016-09-01 07:19] LABS: BASOPHIL 0.7 % (0-2.0); EOSINOPHIL 4.6 % (0-4.5); MCH 30.3 pg (25.7-33.7); MCHC 33.5 g/dl (32.0-36.0); MEAN CELL VOLUME 90.6 fl (80-96); NEUTROPHILS 64.1 % (42.8-82.8); PLATELET COUNT 417 K/MM3 (134-434); RDW 12.2 % (11.6-15.6); WHITE BLOOD COUNT 13.9 K/mm3 (4.0-10.0)
[2016-09-01 08:41] LABS: CALCIUM 8.3 mg/dL (8.5-10.1); CREATININE 2.9 mg/dL (0.55-1.02); MAGNESIUM 2.2 mg/dL (1.8-2.4)
[2016-09-01] MEDS ORDERED: PT OWN MED DRAWER 7, Y5N ONE ×2 (09:43→20:12)
[2016-09-01] MEDS: BACITRACIN 30 GM TUBE TOPICAL OINTMENT TP SCH (09:49)
[2016-09-01] MEDS: LACTOBACILLUS ACIDOPHILUS 1 EACH TAB (FP) PO SCH ×2 (09:49→21:07)
[2016-09-01] MEDS: ISOSORBIDE MONONITRATE 30 MG TAB.SR.24H (FP) PO SCH (09:50)
[2016-09-01] MEDS: METOPROLOL TARTRATE 50 MG TABLET (FP) PO SCH ×2 (09:50→21:08)
[2016-09-01] MEDS: NIFEdipine E.R 60 MG TABLET (UD) PO SCH ×2 (09:50→21:07)
[2016-09-01] MEDS: FERROUS SO4 325 MG TABLET (FP) PO SCH ×2 (09:50→21:07)
[2016-09-01] MEDS: ASCORBIC ACID 500 MG TABLET (FP) PO SCH (09:50)
[2016-09-01] MEDS: DOCUSATE SODIUM 100 MG CAPSULE (FP) PO SCH (09:50)
[2016-09-01] MEDS: CEFTAROLINE FOSAMIL ACETATE 400 MG in DEXTROSE 5%-WATER - 100 ML IVPB SCH ×2 (09:51→21:07)
[2016-09-01] MEDS: SODIUM CHLORIDE 1,000 ML IV SCH ×3 (09:51→16:15)
[2016-09-01] MEDS ORDERED: INSULIN (NOVOLOG) ASPART 100 UNITS/ML 10ML VIAL ONE (11:52)
--- NOTE | 2016-09-01 12:30 | PN ---
Progress Note (short form) - Note Progress Note: Awaiting MRI of right foot with/without contrast to evaluate for osteomyelitis. Continue medical management
--- NOTE | 2016-09-01 15:38 | PN ---
Progress Note, Physician History of Present Illness: No c/o foot pain Reports scant serous drainage from 2nd toe No fever/ chills Tolerating antibiotic - Current Medication List Current Medications: Active Medications Acetaminophen (Tylenol -) 650 mg PO Q6HPO [facility] Last Admin: 09/01/16 11:55 Dose: Not Given Acetaminophen (Tylenol -) 325 mg PO BID PRN PRN Reason: PAIN Last Admin: 08/31/16 22:07 Dose: 325 mg Alprazolam (Xanax -) 0.25 mg PO Q12H PRN PRN Reason: ANXIETY Last Admin: 08/30/16 23:37 Dose: 0.25 mg Amitriptyline HCl (Elavil -) 50 mg PO HS [facility] Last Admin: 08/31/16 21:08 Dose: 50 mg Ascorbic Acid (Vitamin C -) 500 mg PO DAILY [facility] Last Admin: 09/01/16 09:50 Dose: 500 mg Atorvastatin Calcium (Lipitor -) 10 mg PO HS [facility] Last Admin: 08/31/16 21:09 Dose: 10 mg Bacitracin (Bacitracin -) 1 applic TP DAILY [facility] Last Admin: 09/01/16 09:49 Dose: 1 applic Docusate Sodium (Colace -) 100 mg PO DAILY [facility] Last Admin: 09/01/16 09:50 Dose: 100 mg Ferrous Sulfate (Feosol -) 325 mg PO BID [facility] Last Admin: 09/01/16 09:50 Dose: 325 mg Glipizide (Glucotrol Xl -) 2.5 mg PO ACBK [facility] Last Admin: 09/01/16 06:27 Dose: 2.5 mg Ceftaroline Fosamil 400 mg/ (Dextrose) 100 mls @ 100 mls/hr IVPB BID [facility] Last Admin: 09/01/16 09:51 Dose: 100 mls/hr Insulin Aspart (Novolog Vial Sliding Scale -) 1 vial SQ ACHS [facility] PRN Reason: Protocol Last Admin: 09/01/16 11:56 Dose: Not Given Isosorbide Mononitrate (Imdur -) 30 mg PO DAILY [facility] Last Admin: 09/01/16 09:50 Dose: 30 mg Lactobacillus Acidophilus (Bacid -) 1 tab PO BID [facility] Last Admin: 09/01/16 09:49 Dose: 1 tab Metoprolol Tartrate (Lopressor -) 100 mg PO BID [facility] Last Admin: 09/01/16 09:50 Dose: Not Given Nifedipine (Procardia Xl -) 60 mg PO BID [facility] Last Admin: 09/01/16 09:50 Dose: Not Given Ondansetron HCl (Zofran -) 4 mg PO Q8H PRN PRN Reason: NAUSEA Oxycodone HCl (Roxicodone -) 5 mg PO BID PRN PRN Reason: PAIN Last Admin: 08/31/16 22:07 Dose: 5 mg - Objective Vital Signs: Vital Signs Temperature 98.8 F 09/01/16 15:13 Pulse Rate 74 09/01/16 15:13 Respiratory Rate 17 09/01/16 15:13 Blood Pressure 148/71 09/01/16 15:13 O2 Sat by Pulse Oximetry (%) 93 L 09/01/16 09:00 Constitutional: Yes: No Distress Eyes: Yes: Conjunctiva Clear Cardiovascular: Yes: Regular Rate and Rhythm, S1, S2 Respiratory: Yes: CTA Bilaterally Gastrointestinal: Yes: Normal Bowel Sounds, Soft. No: Tenderness Extremities: Yes: Other (+ dry ulcer R 2nd toe decreased erythema/ swelling decreased erythema L 1st MTH) Labs: CBC, BMP 09/01/16 06:45 09/01/16 06:45 INR, PTT INR 1.05 (0.82-1.09) 08/29/16 15:55 Assessment/Plan Cellulitis, probable osteo R 2nd toe DM Azotemia Antibiotic allergies Await c/s, MRI Continue ceftaroline
--- NOTE | 2016-09-01 15:45 | PN ---
Progress Note (short form) - Note Progress Note: Renal Follow up for AGUSTÍN on CKD Pt seen and examined at the bedside no acute complaints denies sob, chest pain, abd pain N/V/D on IVF Vital Signs Temperature 98.8 F 09/01/16 15:13 Pulse Rate 74 09/01/16 15:13 Respiratory Rate 17 09/01/16 15:13 Blood Pressure 148/71 09/01/16 15:13 O2 Sat by Pulse Oximetry (%) 93 L 09/01/16 09:00 Intake & Output 08/29/16 08/30/16 08/31/16 09/01/16 23:59 23:59 23:59 23:59 Intake Total 120 1400 1870 420 Balance 120 1400 1870 420 Weight 126 lb 6.4 oz Gen: NAD, awake and alert CVS: RRR, No M/R Lungs: CTA Abd: soft NT/ND Ext: Trace edema b/l. + erythema on right 2nd digit. Dressing on left foot. CBC, BMP 09/01/16 06:45 09/01/16 06:45 Current Medications Acetaminophen (Tylenol -) 650 mg PO Q6HPO [facility] Last Admin: 09/01/16 11:55 Dose: Not Given Acetaminophen (Tylenol -) 325 mg PO BID PRN PRN Reason: PAIN Last Admin: 08/31/16 22:07 Dose: 325 mg Alprazolam (Xanax -) 0.25 mg PO Q12H PRN PRN Reason: ANXIETY Last Admin: 08/30/16 23:37 Dose: 0.25 mg Amitriptyline HCl (Elavil -) 50 mg PO HS [facility] Last Admin: 08/31/16 21:08 Dose: 50 mg Ascorbic Acid (Vitamin C -) 500 mg PO DAILY [facility] Last Admin: 09/01/16 09:50 Dose: 500 mg Atorvastatin Calcium (Lipitor -) 10 mg PO HS [facility] Last Admin: 08/31/16 21:09 Dose: 10 mg Bacitracin (Bacitracin -) 1 applic TP DAILY [facility] Last Admin: 09/01/16 09:49 Dose: 1 applic Docusate Sodium (Colace -) 100 mg PO DAILY [facility] Last Admin: 09/01/16 09:50 Dose: 100 mg Ferrous Sulfate (Feosol -) 325 mg PO BID [facility] Last Admin: 01/12/17 09:50 Dose: 325 mg Glipizide (Glucotrol Xl -) 2.5 mg PO ACBK [facility] Last Admin: 09/01/16 06:27 Dose: 2.5 mg Ceftaroline Fosamil 400 mg/ (Dextrose) 100 mls @ 100 mls/hr IVPB BID [facility] Last Admin: 09/01/16 09:51 Dose: 100 mls/hr Insulin Aspart (Novolog Vial Sliding Scale -) 1 vial SQ ACHS [facility] PRN Reason: Protocol Last Admin: 09/01/16 11:56 Dose: Not Given Isosorbide Mononitrate (Imdur -) 30 mg PO DAILY [facility] Last Admin: 09/01/16 09:50 Dose: 30 mg Lactobacillus Acidophilus (Bacid -) 1 tab PO BID [facility] Last Admin: 09/01/16 09:49 Dose: 1 tab Metoprolol Tartrate (Lopressor -) 100 mg PO BID [facility] Last Admin: 09/01/16 09:50 Dose: Not Given Nifedipine (Procardia Xl -) 60 mg PO BID [facility] Last Admin: 09/01/16 09:50 Dose: Not Given Ondansetron HCl (Zofran -) 4 mg PO Q8H PRN PRN Reason: NAUSEA Oxycodone HCl (Roxicodone -) 5 mg PO BID PRN PRN Reason: PAIN Last Admin: 08/31/16 22:07 Dose: 5 mg A/P 81 year old woman with PMhx of CKD stage 3 (baseline Cr 1-1.2), Renal Artery stenosis (30% no intervention), Hypertension, DM Type 2, PVD who presented with suspected osteomylitis on b/l feet and found to have AGUSTÍN with BUN/Cr of 30/2.9. 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
--- NOTE | 2016-09-01 15:51 | PN ---
Progress Note, Physician History of Present Illness: on/off R foot pain - Current Medication List Current Medications: Active Medications Acetaminophen (Tylenol -) 650 mg PO Q6HPO [facility] Last Admin: 09/01/16 11:55 Dose: Not Given Acetaminophen (Tylenol -) 325 mg PO BID PRN PRN Reason: PAIN Last Admin: 08/31/16 22:07 Dose: 325 mg Alprazolam (Xanax -) 0.25 mg PO Q12H PRN PRN Reason: ANXIETY Last Admin: 08/30/16 23:37 Dose: 0.25 mg Amitriptyline HCl (Elavil -) 50 mg PO HS [facility] Last Admin: 08/31/16 21:08 Dose: 50 mg Ascorbic Acid (Vitamin C -) 500 mg PO DAILY [facility] Last Admin: 09/01/16 09:50 Dose: 500 mg Atorvastatin Calcium (Lipitor -) 10 mg PO [facility] Last Admin: 08/31/16 21:09 Dose: 10 mg Bacitracin (Bacitracin -) 1 applic TP DAILY [facility] Last Admin: 09/01/16 09:49 Dose: 1 applic Docusate Sodium (Colace -) 100 mg PO DAILY [facility] Last Admin: 09/01/16 09:50 Dose: 100 mg Ferrous Sulfate (Feosol -) 325 mg PO BID [facility] Last Admin: 09/01/16 09:50 Dose: 325 mg Glipizide (Glucotrol Xl -) 2.5 mg PO ACBK [facility] Last Admin: 09/01/16 06:27 Dose: 2.5 mg Ceftaroline Fosamil 400 mg/ (Dextrose) 100 mls @ 100 mls/hr IVPB BID [facility] Last Admin: 09/01/16 09:51 Dose: 100 mls/hr Sodium Chloride (Normal Saline -) 1,000 mls @ 83 mls/hr IV ASDIR [facility] Insulin Aspart (Novolog Vial Sliding Scale -) 1 vial SQ ACHS [facility] PRN Reason: Protocol Last Admin: 09/01/16 11:56 Dose: Not Given Isosorbide Mononitrate (Imdur -) 30 mg PO DAILY [facility] Last Admin: 09/01/16 09:50 Dose: 30 mg Lactobacillus Acidophilus (Bacid -) 1 tab PO BID [facility] Last Admin: 09/01/16 09:49 Dose: 1 tab Metoprolol Tartrate (Lopressor -) 100 mg PO BID [facility] Last Admin: 09/01/16 09:50 Dose: Not Given Nifedipine (Procardia Xl -) 60 mg PO BID [facility] Last Admin: 09/01/16 09:50 Dose: Not Given Ondansetron HCl (Zofran -) 4 mg PO Q8H PRN PRN Reason: NAUSEA Oxycodone HCl (Roxicodone -) 5 mg PO BID PRN PRN Reason: PAIN Last Admin: 08/31/16 22:07 Dose: 5 mg - Objective Vital Signs: Vital Signs Temperature 98.8 F 09/01/16 15:13 Pulse Rate 74 09/01/16 15:13 Respiratory Rate 17 09/01/16 15:13 Blood Pressure 148/71 09/01/16 15:13 O2 Sat by Pulse Oximetry (%) 93 L 09/01/16 09:00 Constitutional: Yes: No Distress Eyes: Yes: Conjunctiva Clear HENT: Yes: Atraumatic Neck: Yes: Supple Cardiovascular: Yes: Regular Rate and Rhythm Respiratory: Yes: CTA Bilaterally Gastrointestinal: Yes: Soft. No: Distention Genitourinary: No: CVA Tenderness - Left, CVA Tenderness - Right Musculoskeletal: No: Joint Stiffness, Joint Swelling Extremities: No: Cold, Cool Edema: No Peripheral Pulses WNL: Yes Integumentary: No: Rash, Venous Stasis Changes Neurological: Yes: WNL, Alert, Oriented ...Motor Strength: WNL Psychiatric: Yes: WNL, Alert, Oriented. No: Agitated, Suicidal Ideation Labs: CBC, BMP 09/01/16 06:45 09/01/16 06:45 INR, PTT INR 1.05 (0.82-1.09) 08/29/16 15:55 - ....Imaging Other: Report Reviewed Assessment/Plan ASHD PVD smoker, h/o foot osteomyelitis DM, CRF ARF on CRF creat 2.9 R foot cellulitis r/o osteomyelitis IV ATB per ID foot MRI or bone scan, ID f/u vascular sx, podiatry eval renal eval gentle IVF started percocet prn, d/w pt risks and falls tolerance addiction, constipation etc, to use as needed only stools softeners prn stop smoking falls PFX continue meds, d/w pt
[2016-09-01] MEDS: oxyCODONE HCL 5 MG TABLET PO PRN (20:15)
[2016-09-01] MEDS: ACETAMINOPHEN 325 MG TABLET (FP) PO PRN (20:17)
[2016-09-01] MEDS: ATORVASTATIN CA 10 MG TABLET (FP) PO SCH (21:07)
[2016-09-01] MEDS: AMITRIPTYLINE HCL 25 MG TABLET (FP) PO SCH (21:07)
[2016-09-02] MEDS: ALPRAZolam 0.25 MG TABLET PO PRN ×2 (00:35→23:55)
[2016-09-02] MEDS: ACETAMINOPHEN 325 MG TABLET (FP) PO SCH ×5 (00:35→23:56)
[2016-09-02] MEDS: INSULIN SLIDING SCALE (NOVOLOG) 1 VIAL SQ SCH ×5 (01:44→23:00)
[2016-09-02] MEDS ORDERED: PT OWN MED DRAWER 7, Y5N ONE ×2 (06:15→09:41)
[2016-09-02] MEDS: glipiZIDE-XL 2.5 MG TAB.ER.24 PO SCH (06:17)
[2016-09-02] MEDS: SODIUM CHLORIDE 1,000 ML IV SCH ×2 (06:43→17:24)
[2016-09-02 08:39] LABS: CALCIUM 7.6 mg/dL (8.5-10.1); CREATININE 2.5 mg/dL (0.55-1.02); MAGNESIUM 2.1 mg/dL (1.8-2.4); PHOSPHOROUS 4.7 mg/dL (2.5-4.9)
[2016-09-02] MEDS: CEFTAROLINE FOSAMIL ACETATE 400 MG in DEXTROSE 5%-WATER - 100 ML IVPB SCH (09:46)
[2016-09-02] MEDS: FERROUS SO4 325 MG TABLET (FP) PO SCH ×2 (09:47→22:42)
[2016-09-02] MEDS: METOPROLOL TARTRATE 50 MG TABLET (FP) PO SCH ×2 (09:47→22:43)
[2016-09-02] MEDS: DOCUSATE SODIUM 100 MG CAPSULE (FP) PO SCH (09:47)
[2016-09-02] MEDS: ASCORBIC ACID 500 MG TABLET (FP) PO SCH (09:47)
[2016-09-02] MEDS: BACITRACIN 30 GM TUBE TOPICAL OINTMENT TP SCH (09:48)
[2016-09-02] MEDS: ISOSORBIDE MONONITRATE 30 MG TAB.SR.24H (FP) PO SCH (09:48)
[2016-09-02] MEDS: LACTOBACILLUS ACIDOPHILUS 1 EACH TAB (FP) PO SCH ×2 (09:48→22:43)
[2016-09-02] MEDS: NIFEdipine E.R 60 MG TABLET (UD) PO SCH ×2 (09:49→22:43)
--- NOTE | 2016-09-02 10:15 | PN ---
Progress Note (short form) - Note Progress Note: Pt seen and examined. Resting comfortably without complaint. Ambulating hallways. Pt with a history of RLE bypass. Now with 2nd toe infection (right foot) most likely from ill fitting shoe(trauma) Last Vital Signs Temp Pulse Resp BP Pulse Ox 98.8 F 61 16 116/56 96 09/02/16 06:27 09/02/16 06:27 09/02/16 06:27 09/02/16 06:27 09/01/16 22:00 CBC, BMP 09/01/16 06:45 09/02/16 07:00 PE General: NAD RLE: palpable pulse to foot. 2nd toe with swollen/erythematous 2nd toe, no foul odor (h/o hallux amp) Problem List - Problems (1) Cellulitis of foot, right Assessment/Plan: Awaiting result of Foot MRI to r/o osteo Cont IV abx as per ID, her foot remains erythematous and swollen Surgery to follow patient. Code(s): L03.115 - CELLULITIS OF RIGHT LOWER LIMB
--- NOTE | 2016-09-02 15:27 | PN ---
Progress Note, Physician History of Present Illness: No c/o foot pain Reports nausea/ diarrhea with ceftaroline No fever/ chills MRI pending Wound c/s mixed, incl MRSA - Current Medication List Current Medications: Active Medications Acetaminophen (Tylenol -) 650 mg PO Q6HPO [facility] Last Admin: 09/02/16 14:25 Dose: Not Given Acetaminophen (Tylenol -) 325 mg PO BID PRN PRN Reason: PAIN Last Admin: 09/01/16 20:17 Dose: 325 mg Alprazolam (Xanax -) 0.25 mg PO Q12H PRN PRN Reason: ANXIETY Last Admin: 09/02/16 00:35 Dose: 0.25 mg Amitriptyline HCl (Elavil -) 50 mg PO HS [facility] Last Admin: 09/01/16 21:07 Dose: 50 mg Ascorbic Acid (Vitamin C -) 500 mg PO DAILY [facility] Last Admin: 09/02/16 09:47 Dose: 500 mg Atorvastatin Calcium (Lipitor -) 10 mg PO HS [facility] Last Admin: 09/01/16 21:07 Dose: 10 mg Bacitracin (Bacitracin -) 1 applic TP DAILY [facility] Last Admin: 09/02/16 09:48 Dose: 1 applic Docusate Sodium (Colace -) 100 mg PO DAILY [facility] Last Admin: 09/02/16 09:47 Dose: 100 mg Ferrous Sulfate (Feosol -) 325 mg PO BID [facility] Last Admin: 09/02/16 09:47 Dose: 325 mg Glipizide (Glucotrol Xl -) 2.5 mg PO ACBK [facility] Last Admin: 09/02/16 06:17 Dose: 2.5 mg Ceftaroline Fosamil 400 mg/ (Dextrose) 100 mls @ 100 mls/hr IVPB BID [facility] Last Admin: 09/02/16 09:46 Dose: 100 mls/hr Sodium Chloride (Normal Saline -) 1,000 mls @ 83 mls/hr IV ASDIR [facility] Last Admin: 09/02/16 06:43 Dose: 83 mls/hr Insulin Aspart (Novolog Vial Sliding Scale -) 1 vial SQ ACHS [facility] PRN Reason: Protocol Last Admin: 09/02/16 11:37 Dose: Not Given Isosorbide Mononitrate (Imdur -) 30 mg PO DAILY [facility] Last Admin: 09/02/16 09:48 Dose: 30 mg Lactobacillus Acidophilus (Bacid -) 1 tab PO BID [facility] Last Admin: 09/02/16 09:48 Dose: 1 tab Metoprolol Tartrate (Lopressor -) 100 mg PO BID [facility] Last Admin: 09/02/16 09:47 Dose: Not Given Nifedipine (Procardia Xl -) 60 mg PO BID [facility] Last Admin: 09/02/16 09:49 Dose: Not Given Ondansetron HCl (Zofran -) 4 mg PO Q8H PRN PRN Reason: NAUSEA Last Admin: 09/02/16 13:35 Dose: 4 mg Oxycodone HCl (Roxicodone -) 5 mg PO BID PRN PRN Reason: PAIN Last Admin: 09/01/16 20:15 Dose: 5 mg - Objective Vital Signs: Vital Signs Temperature 98.1 F 09/02/16 10:00 Pulse Rate 64 09/02/16 10:00 Respiratory Rate 18 09/02/16 10:00 Blood Pressure 104/47 09/02/16 10:00 O2 Sat by Pulse Oximetry (%) 96 09/02/16 09:00 Constitutional: Yes: No Distress Eyes: Yes: Conjunctiva Clear Cardiovascular: Yes: Regular Rate and Rhythm, S1, S2 Respiratory: Yes: CTA Bilaterally Gastrointestinal: Yes: Normal Bowel Sounds, Soft. No: Tenderness Extremities: Yes: Other (R 2nd toe slightly less swollen. Still red + wound drainage Less erythema L 1st MT head) Labs: CBC, BMP 09/01/16 06:45 09/02/16 07:00 INR, PTT INR 1.05 (0.82-1.09) 08/29/16 15:55 Assessment/Plan Cellulitis, probable osteo R 2nd toe DM Azotemia Antibiotic allergies Ceftaroline intolerance Await MRI result Substitute daptomycin , adjusted for azotemia
--- NOTE | 2016-09-02 15:38 | PN ---
Progress Note (short form) - Note Progress Note: Renal Follow up for AGUSTÍN on CKD Pt seen and examined at the bedside no acute complaints Vital Signs Temperature 98.4 F 09/02/16 14:29 Pulse Rate 73 09/02/16 14:29 Respiratory Rate 18 09/02/16 10:00 Blood Pressure 163/74 09/02/16 14:29 O2 Sat by Pulse Oximetry (%) 96 09/02/16 09:00 Intake & Output 08/30/16 08/31/16 09/01/16 09/02/16 23:59 23:59 23:59 23:59 Intake Total 1400 1870 2565 1015 Balance 1400 1870 2565 1015 Gen: NAD, awake and alert CVS: RRR, No M/R Lungs: CTA Abd: soft NT/ND Ext: Trace edema b/l. + erythema on right 2nd digit. Dressing on left foot. CBC, BMP 09/01/16 06:45 09/02/16 07:00 Current Medications Acetaminophen (Tylenol -) 650 mg PO Q6HPO [facility] Last Admin: 09/02/16 14:25 Dose: Not Given Acetaminophen (Tylenol -) 325 mg PO BID PRN PRN Reason: PAIN Last Admin: 09/01/16 20:17 Dose: 325 mg Alprazolam (Xanax -) 0.25 mg PO Q12H PRN PRN Reason: ANXIETY Last Admin: 09/02/16 00:35 Dose: 0.25 mg Amitriptyline HCl (Elavil -) 50 mg PO HS [facility] Last Admin: 09/01/16 21:07 Dose: 50 mg Ascorbic Acid (Vitamin C -) 500 mg PO DAILY [facility] Last Admin: 09/02/16 09:47 Dose: 500 mg Atorvastatin Calcium (Lipitor -) 10 mg PO HS [facility] Last Admin: 09/01/16 21:07 Dose: 10 mg Bacitracin (Bacitracin -) 1 applic TP DAILY [facility] Last Admin: 09/02/16 09:48 Dose: 1 applic Docusate Sodium (Colace -) 100 mg PO DAILY [facility] Last Admin: 09/02/16 09:47 Dose: 100 mg Ferrous Sulfate (Feosol -) 325 mg PO BID [facility] Last Admin: 09/02/16 09:47 Dose: 325 mg Glipizide (Glucotrol Xl -) 2.5 mg PO ACBK [facility] Last Admin: 09/02/16 06:17 Dose: 2.5 mg Sodium Chloride (Normal Saline -) 1,000 mls @ 83 mls/hr IV ASDIR [facility] Last Admin: 09/02/16 06:43 Dose: 83 mls/hr Daptomycin 240 mg/ Sodium (Chloride) 50 mls @ 50 mls/hr IVPB Q48H [facility] Insulin Aspart (Novolog Vial Sliding Scale -) 1 vial SQ ACHS [facility] PRN Reason: Protocol Last Admin: 09/02/16 11:37 Dose: Not Given Isosorbide Mononitrate (Imdur -) 30 mg PO DAILY [facility] Last Admin: 09/02/16 09:48 Dose: 30 mg Lactobacillus Acidophilus (Bacid -) 1 tab PO BID [facility] Last Admin: 09/02/16 09:48 Dose: 1 tab Metoprolol Tartrate (Lopressor -) 100 mg PO BID [facility] Last Admin: 09/02/16 09:47 Dose: Not Given Nifedipine (Procardia Xl -) 60 mg PO BID [facility] Last Admin: 09/02/16 09:49 Dose: Not Given Ondansetron HCl (Zofran -) 4 mg PO Q8H PRN PRN Reason: NAUSEA Last Admin: 09/02/16 13:35 Dose: 4 mg Oxycodone HCl (Roxicodone -) 5 mg PO BID PRN PRN Reason: PAIN Last Admin: 09/01/16 20:15 Dose: 5 mg A/P 81 year old woman with PMhx of CKD stage 3 (baseline Cr 1-1.2), Renal Artery stenosis (30% no intervention), Hypertension, DM Type 2, PVD who presented with suspected osteomylitis on b/l feet and found to have AGUSTÍN with BUN/Cr of 30/2.9. 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
--- NOTE | 2016-09-02 17:05 | PN ---
Progress Note (short form) - Note Progress Note: Vascular Surgery Awaiting MRI results. Rule out osteo of second toe. Will follow Bob Jane DO
[2016-09-02] MEDS: SODIUM CHLORIDE IVPB SCH (17:17)
[2016-09-02] MEDS: DAPTOMYCIN IVPB SCH (17:17)
--- NOTE | 2016-09-02 22:26 | PN ---
Progress Note, Physician Chief Complaint: less foot pain, had some N/V this am - Current Medication List Current Medications: Active Medications Acetaminophen (Tylenol -) 650 mg PO Q6HPO [facility] Last Admin: 09/02/16 17:23 Dose: 650 mg Acetaminophen (Tylenol -) 325 mg PO BID PRN PRN Reason: PAIN Last Admin: 09/01/16 20:17 Dose: 325 mg Alprazolam (Xanax -) 0.25 mg PO Q12H PRN PRN Reason: ANXIETY Last Admin: 09/02/16 00:35 Dose: 0.25 mg Amitriptyline HCl (Elavil -) 50 mg PO HS [facility] Last Admin: 09/01/16 21:07 Dose: 50 mg Ascorbic Acid (Vitamin C -) 500 mg PO DAILY [facility] Last Admin: 09/02/16 09:47 Dose: 500 mg Atorvastatin Calcium (Lipitor -) 10 mg PO HS [facility] Last Admin: 09/01/16 21:07 Dose: 10 mg Bacitracin (Bacitracin -) 1 applic TP DAILY [facility] Last Admin: 09/02/16 09:48 Dose: 1 applic Docusate Sodium (Colace -) 100 mg PO DAILY [facility] Last Admin: 09/02/16 09:47 Dose: 100 mg Ferrous Sulfate (Feosol -) 325 mg PO BID [facility] Last Admin: 09/02/16 09:47 Dose: 325 mg Glipizide (Glucotrol Xl -) 2.5 mg PO ACBK [facility] Last Admin: 09/02/16 06:17 Dose: 2.5 mg Sodium Chloride (Normal Saline -) 1,000 mls @ 83 mls/hr IV ASDIR [facility] Last Admin: 09/02/16 17:24 Dose: 83 mls/hr Daptomycin 240 mg/ Sodium (Chloride) 50 mls @ 50 mls/hr IVPB Q48H [facility] Last Admin: 09/02/16 17:17 Dose: 50 mls/hr Insulin Aspart (Novolog Vial Sliding Scale -) 1 vial SQ ACHS [facility] PRN Reason: Protocol Last Admin: 09/02/16 17:16 Dose: Not Given Isosorbide Mononitrate (Imdur -) 30 mg PO DAILY [facility] Last Admin: 09/02/16 09:48 Dose: 30 mg Lactobacillus Acidophilus (Bacid -) 1 tab PO BID [facility] Last Admin: 09/02/16 09:48 Dose: 1 tab Metoprolol Tartrate (Lopressor -) 100 mg PO BID [facility] Last Admin: 09/02/16 09:47 Dose: Not Given Nifedipine (Procardia Xl -) 60 mg PO BID [facility] Last Admin: 09/02/16 09:49 Dose: Not Given Ondansetron HCl (Zofran -) 4 mg PO Q8H PRN PRN Reason: NAUSEA Last Admin: 09/02/16 13:35 Dose: 4 mg Oxycodone HCl (Roxicodone -) 5 mg PO BID PRN PRN Reason: PAIN Last Admin: 09/01/16 20:15 Dose: 5 mg - Objective Vital Signs: Vital Signs Temperature 98.5 F 09/02/16 18:00 Pulse Rate 76 09/02/16 18:00 Respiratory Rate 20 09/02/16 18:00 Blood Pressure 150/81 09/02/16 18:00 O2 Sat by Pulse Oximetry (%) 96 09/02/16 09:00 Constitutional: Yes: No Distress Eyes: Yes: Conjunctiva Clear HENT: Yes: Atraumatic Neck: Yes: Supple Cardiovascular: Yes: Regular Rate and Rhythm Respiratory: Yes: Regular Gastrointestinal: Yes: Normal Bowel Sounds Musculoskeletal: No: Joint Stiffness Extremities: No: Calf Tenderness, Cold Peripheral Pulses WNL: Yes Integumentary: No: Rash, Venous Stasis Changes Neurological: Yes: WNL, Alert, Oriented ...Motor Strength: WNL Psychiatric: Yes: WNL, Alert, Oriented. No: Agitated Labs: CBC, BMP 09/01/16 06:45 09/02/16 07:00 INR, PTT INR 1.05 (0.82-1.09) 08/29/16 15:55 - ....Imaging Other: Report Reviewed Assessment/Plan ASHD PVD smoker, h/o foot osteomyelitis DM, CRF ARF on CRF better creat 2.5 R foot cellulitis r/o osteomyelitis IV ATB per ID foot MRI or bone scan, ID f/u vascular sx, podiatry eval renal eval gentle IVF started percocet prn, d/w pt risks and falls tolerance addiction, constipation etc, to use as needed only stools softeners prn zofran prn stop smoking falls PFX continue meds, d/w pt
[2016-09-02] MEDS: AMITRIPTYLINE HCL 25 MG TABLET (FP) PO SCH (22:43)
[2016-09-02] MEDS: ATORVASTATIN CA 10 MG TABLET (FP) PO SCH (22:43)
[2016-09-03] MEDS: glipiZIDE-XL 2.5 MG TAB.ER.24 PO SCH (06:18)
[2016-09-03] MEDS: ACETAMINOPHEN 325 MG TABLET (FP) PO SCH ×3 (06:18→17:14)
[2016-09-03] MEDS: INSULIN SLIDING SCALE (NOVOLOG) 1 VIAL SQ SCH ×4 (06:19→22:05)
[2016-09-03] MEDS ORDERED: PICC LINE 8 ML FLUSH PROTOCOL IVPUSH PRN (10:23)
--- NOTE | 2016-09-03 10:23 | PN ---
Progress Note (short form) - Note Progress Note: Pt seen and examined. Resting comfortably without complaint. Ambulating hallways. Pt with a history of RLE bypass. Now with 2nd toe infection (right foot) most likely from ill fitting shoe(trauma) AVSS. Afebrile. MRI: + osteomyelitis to 2nd toe right foot PE General: NAD RLE: palpable pulse to foot. 2nd toe with swollen/erythematous 2nd toe, no foul odor (h/o hallux amp) Problem List - Problems (1) Cellulitis of foot, right Assessment/Plan: Patient has osteomyelitis to her 2nd toe on her right foot. Patient wants to try ferry terminal agent antibiotics to avoid another toe amputation at this time. I spoke with ID --> Dr. Leong regarding a PICC...he is ok with (order placed) Continue IV abx Above plan discussed with both Dr.s Jane and Salo and agree. Code(s): L03.115 - CELLULITIS OF RIGHT LOWER LIMB Code(s): L03.115 - CELLULITIS OF RIGHT LOWER LIMB
[2016-09-03 10:24] LABS: CALCIUM 8.2 mg/dL (8.5-10.1); CREATININE 2.2 mg/dL (0.55-1.02); MAGNESIUM 2.2 mg/dL (1.8-2.4); PHOSPHOROUS 4.4 mg/dL (2.5-4.9)
[2016-09-03] MEDS: ASCORBIC ACID 500 MG TABLET (FP) PO SCH (10:36)
[2016-09-03] MEDS: LACTOBACILLUS ACIDOPHILUS 1 EACH TAB (FP) PO SCH ×2 (10:36→21:50)
[2016-09-03] MEDS: DOCUSATE SODIUM 100 MG CAPSULE (FP) PO SCH (10:36)
[2016-09-03] MEDS: FERROUS SO4 325 MG TABLET (FP) PO SCH ×2 (10:36→21:50)
[2016-09-03] MEDS: NIFEdipine E.R 60 MG TABLET (UD) PO SCH ×2 (11:41→21:54)
[2016-09-03] MEDS: METOPROLOL TARTRATE 50 MG TABLET (FP) PO SCH ×3 (11:41→21:54)
[2016-09-03] MEDS: ISOSORBIDE MONONITRATE 30 MG TAB.SR.24H (FP) PO SCH (11:41)
--- NOTE | 2016-09-03 13:14 | PN ---
Progress Note (short form) - Note Progress Note: Renal Follow up for AGUSTÍN on CKD Pt seen and examined at the bedside no acute complaints on IVF denies sob, chest pain no fevers Vital Signs Temperature 98.7 F 09/03/16 10:00 Pulse Rate 64 09/03/16 10:00 Respiratory Rate 18 09/03/16 10:00 Blood Pressure 109/50 09/03/16 10:00 O2 Sat by Pulse Oximetry (%) 96 09/02/16 22:00 Intake & Output 08/31/16 09/01/16 09/02/16 09/03/16 23:59 23:59 23:59 23:59 Intake Total 1870 2565 2894 498 Balance 1870 2565 2894 498 Gen: NAD, awake and alert CVS: RRR, No M/R Lungs: CTA Abd: soft NT/ND Ext: Trace edema b/l. + erythema on right 2nd digit. Dressing on left foot. CBC, BMP 09/01/16 06:45 09/03/16 06:15 Current Medications Acetaminophen (Tylenol -) 650 mg PO Q6HPO [facility] Last Admin: 09/03/16 11:39 Dose: 650 mg Acetaminophen (Tylenol -) 325 mg PO BID PRN PRN Reason: PAIN Last Admin: 09/01/16 20:17 Dose: 325 mg Alprazolam (Xanax -) 0.25 mg PO Q12H PRN PRN Reason: ANXIETY Last Admin: 09/02/16 23:55 Dose: 0.25 mg Amitriptyline HCl (Elavil -) 50 mg PO HS [facility] Last Admin: 09/02/16 22:43 Dose: 50 mg Ascorbic Acid (Vitamin C -) 500 mg PO DAILY [facility] Last Admin: 09/03/16 10:36 Dose: 500 mg Atorvastatin Calcium (Lipitor -) 10 mg PO HS [facility] Last Admin: 09/02/16 22:43 Dose: 10 mg Bacitracin (Bacitracin -) 1 applic TP DAILY [facility] Last Admin: 09/02/16 09:48 Dose: 1 applic Docusate Sodium (Colace -) 100 mg PO DAILY [facility] Last Admin: 09/03/16 10:36 Dose: 100 mg Ferrous Sulfate (Feosol -) 325 mg PO BID [facility] Last Admin: 09/03/16 10:36 Dose: 325 mg Glipizide (Glucotrol Xl -) 2.5 mg PO ACBK [facility] Last Admin: 09/03/16 06:18 Dose: 2.5 mg IV Flush (Picc Line Flush) 8 ml IVPUSH PRN PRN PRN Reason: Protocol Sodium Chloride (Normal Saline -) 1,000 mls @ 83 mls/hr IV ASDIR [facility] Last Admin: 09/02/16 17:24 Dose: 83 mls/hr Daptomycin 240 mg/ Sodium (Chloride) 50 mls @ 50 mls/hr IVPB Q48H [facility] Last Admin: 09/02/16 17:17 Dose: 50 mls/hr Insulin Aspart (Novolog Vial Sliding Scale -) 1 vial SQ ACHS [facility] PRN Reason: Protocol Last Admin: 09/03/16 11:20 Dose: Not Given Isosorbide Mononitrate (Imdur -) 30 mg PO DAILY [facility] Last Admin: 09/03/16 11:41 Dose: Not Given Lactobacillus Acidophilus (Bacid -) 1 tab PO BID [facility] Last Admin: 09/03/16 10:36 Dose: 1 tab Metoprolol Tartrate (Lopressor -) 100 mg PO BID [facility] Last Admin: 09/03/16 11:41 Dose: Not Given Nifedipine (Procardia Xl -) 60 mg PO BID [facility] Last Admin: 09/03/16 11:41 Dose: Not Given Ondansetron HCl (Zofran -) 4 mg PO Q8H PRN PRN Reason: NAUSEA Last Admin: 09/02/16 13:35 Dose: 4 mg Oxycodone HCl (Roxicodone -) 5 mg PO BID PRN PRN Reason: PAIN Last Admin: 09/01/16 20:15 Dose: 5 mg A/P 81 year old woman with PMhx of CKD stage 3 (baseline Cr 1-1.2), Renal Artery stenosis (30% no intervention), Hypertension, DM Type 2, PVD who presented with suspected osteomylitis on b/l feet and found to have AGUSTÍN with BUN/Cr of 30/2.9. #Non-oliguirc AGUSTÍN on CKD secondary to NSAID use + JEANETTE -> renal hypoperufison/ATN Renal function improving Continue isotonic IVF for now Baseline Cr 1.6 Proteinuria work up pending #Osteomylitis of LE continue Dapto as per ID Check CK levels Quentin Goyal DO
[2016-09-03] MEDS: BACITRACIN 30 GM TUBE TOPICAL OINTMENT TP SCH (15:15)
--- NOTE | 2016-09-03 16:02 | PN ---
Progress Note, Physician Chief Complaint: in bed nad afebrile; no N/V, ATB per ID foot less rash - Current Medication List Current Medications: Active Medications Acetaminophen (Tylenol -) 650 mg PO Q6HPO [facility] Last Admin: 09/03/16 11:39 Dose: 650 mg Acetaminophen (Tylenol -) 325 mg PO BID PRN PRN Reason: PAIN Last Admin: 09/01/16 20:17 Dose: 325 mg Alprazolam (Xanax -) 0.25 mg PO Q12H PRN PRN Reason: ANXIETY Last Admin: 09/02/16 23:55 Dose: 0.25 mg Amitriptyline HCl (Elavil -) 50 mg PO HS [facility] Last Admin: 09/02/16 22:43 Dose: 50 mg Ascorbic Acid (Vitamin C -) 500 mg PO DAILY [facility] Last Admin: 09/03/16 10:36 Dose: 500 mg Atorvastatin Calcium (Lipitor -) 10 mg PO HS [facility] Last Admin: 09/02/16 22:43 Dose: 10 mg Bacitracin (Bacitracin -) 1 applic TP DAILY [facility] Last Admin: 09/03/16 15:15 Dose: 1 applic Docusate Sodium (Colace -) 100 mg PO DAILY [facility] Last Admin: 09/03/16 10:36 Dose: 100 mg Ferrous Sulfate (Feosol -) 325 mg PO BID [facility] Last Admin: 09/03/16 10:36 Dose: 325 mg Glipizide (Glucotrol Xl -) 2.5 mg PO ACBK [facility] Last Admin: 09/03/16 06:18 Dose: 2.5 mg IV Flush (Picc Line Flush) 8 ml IVPUSH PRN PRN PRN Reason: Protocol Sodium Chloride (Normal Saline -) 1,000 mls @ 83 mls/hr IV ASDIR [facility] Last Admin: 09/02/16 17:24 Dose: 83 mls/hr Daptomycin 240 mg/ Sodium (Chloride) 50 mls @ 50 mls/hr IVPB Q48H [facility] Last Admin: 09/02/16 17:17 Dose: 50 mls/hr Insulin Aspart (Novolog Vial Sliding Scale -) 1 vial SQ ACHS [facility] PRN Reason: Protocol Last Admin: 09/03/16 11:20 Dose: Not Given Isosorbide Mononitrate (Imdur -) 30 mg PO DAILY [facility] Last Admin: 09/03/16 11:41 Dose: Not Given Lactobacillus Acidophilus (Bacid -) 1 tab PO BID [facility] Last Admin: 09/03/16 10:36 Dose: 1 tab Metoprolol Tartrate (Lopressor -) 100 mg PO BID [facility] Last Admin: 09/03/16 11:41 Dose: Not Given Nifedipine (Procardia Xl -) 60 mg PO BID [facility] Last Admin: 09/03/16 11:41 Dose: Not Given Ondansetron HCl (Zofran -) 4 mg PO Q8H PRN PRN Reason: NAUSEA Last Admin: 09/02/16 13:35 Dose: 4 mg Oxycodone HCl (Roxicodone -) 5 mg PO BID PRN PRN Reason: PAIN Last Admin: 09/01/16 20:15 Dose: 5 mg - Objective Vital Signs: Vital Signs Temperature 98.5 F 09/03/16 15:20 Pulse Rate 70 09/03/16 15:20 Respiratory Rate 18 09/03/16 15:20 Blood Pressure 92/66 09/03/16 15:20 O2 Sat by Pulse Oximetry (%) 96 09/02/16 22:00 Constitutional: Yes: No Distress Eyes: Yes: Conjunctiva Clear HENT: Yes: Atraumatic Neck: Yes: Supple Cardiovascular: Yes: Regular Rate and Rhythm Respiratory: Yes: CTA Bilaterally Gastrointestinal: Yes: Soft. No: Distention Genitourinary: No: Hematuria Musculoskeletal: No: Joint Stiffness, Joint Swelling Extremities: No: Cold, Cool Edema: No Peripheral Pulses WNL: Yes Integumentary: No: Rash, Venous Stasis Changes Neurological: Yes: WNL, Alert, Oriented ...Motor Strength: WNL Psychiatric: Yes: WNL, Alert, Oriented. No: Agitated Labs: CBC, BMP 09/01/16 06:45 09/03/16 06:15 INR, PTT INR 1.05 (0.82-1.09) 08/29/16 15:55 - ....Imaging Other: Report Reviewed Assessment/Plan ASHD PVD smoker, h/o foot osteomyelitis DM, CRF ARF on CRF better creat R foot cellulitis r/o osteomyelitis IV ATB per ID foot MRI or bone scan, ID f/u vascular sx, podiatry eval renal eval gentle IVF started percocet prn, d/w pt risks and falls tolerance addiction, constipation etc, to use as needed only stools softeners prn zofran prn stop smoking falls PFX continue meds, d/w pt
[2016-09-03] MEDS: SODIUM CHLORIDE 1,000 ML IV SCH (17:15)
[2016-09-03] MEDS: ATORVASTATIN CA 10 MG TABLET (FP) PO SCH (21:50)
[2016-09-03] MEDS: AMITRIPTYLINE HCL 25 MG TABLET (FP) PO SCH (22:02)
[2016-09-04] MEDS: NIFEdipine E.R 60 MG TABLET (UD) PO SCH ×3 (00:08→22:02)
[2016-09-04] MEDS: ACETAMINOPHEN 325 MG TABLET (FP) PO SCH ×5 (02:51→20:19)
[2016-09-04] MEDS ORDERED: PT OWN MED DRAWER 7, Y5N ONE (06:25)
[2016-09-04] MEDS: glipiZIDE-XL 2.5 MG TAB.ER.24 PO SCH (07:06)
[2016-09-04] MEDS: INSULIN SLIDING SCALE (NOVOLOG) 1 VIAL SQ SCH ×4 (07:06→22:02)
[2016-09-04 07:42] LABS: BASOPHIL 1.2 % (0-2.0); EOSINOPHIL 5.5 % (0-4.5); MCH 30.2 pg (25.7-33.7); MCHC 33.8 g/dl (32.0-36.0); MEAN CELL VOLUME 89.3 fl (80-96); MEAN PLT VOLUME 7.6 fl (7.5-11.1); NEUTROPHILS 65.5 % (42.8-82.8); PLATELET COUNT 402 K/MM3 (134-434); RDW 12.6 % (11.6-15.6); WHITE BLOOD COUNT 11.4 K/mm3 (4.0-10.0)
[2016-09-04 08:09] LABS: CALCIUM 7.9 mg/dL (8.5-10.1); CREATININE 2.2 mg/dL (0.55-1.02); MAGNESIUM 2.1 mg/dL (1.8-2.4)
--- NOTE | 2016-09-04 10:56 | PN ---
Progress Note (short form) - Note Progress Note: Patient doesn't want amputation of toe if at all possible and wishes to proceed with a conservative alternative. Risks / benefits / alternatives discussed with patient and made her decision after all questions answered. PICC ordered 09/04/16 ID --> Dr. Leong to decide on snf antibiotic. Cont care per primary medical team Problem List - Problems (1) Cellulitis of foot, right Code(s): L03.115 - CELLULITIS OF RIGHT LOWER LIMB
[2016-09-04] MEDS: FERROUS SO4 325 MG TABLET (FP) PO SCH ×2 (11:17→22:03)
[2016-09-04] MEDS: METOPROLOL TARTRATE 50 MG TABLET (FP) PO SCH ×2 (11:18→22:02)
[2016-09-04] MEDS: ASCORBIC ACID 500 MG TABLET (FP) PO SCH (11:18)
[2016-09-04] MEDS: ISOSORBIDE MONONITRATE 30 MG TAB.SR.24H (FP) PO SCH (11:18)
[2016-09-04] MEDS: DOCUSATE SODIUM 100 MG CAPSULE (FP) PO SCH (11:18)
[2016-09-04] MEDS: LACTOBACILLUS ACIDOPHILUS 1 EACH TAB (FP) PO SCH ×2 (11:18→22:00)
[2016-09-04] MEDS: ALPRAZolam 0.25 MG TABLET PO PRN (12:02)
--- NOTE | 2016-09-04 13:53 | PN ---
Progress Note, Physician Chief Complaint: no new c.o no N/V - Current Medication List Current Medications: Active Medications Acetaminophen (Tylenol -) 650 mg PO Q6HPO [facility] Last Admin: 09/04/16 12:23 Dose: 650 mg Acetaminophen (Tylenol -) 325 mg PO BID PRN PRN Reason: PAIN Last Admin: 09/01/16 20:17 Dose: 325 mg Alprazolam (Xanax -) 0.25 mg PO Q12H PRN PRN Reason: ANXIETY Last Admin: 09/04/16 12:02 Dose: 0.25 mg Amitriptyline HCl (Elavil -) 50 mg PO HS [facility] Last Admin: 09/03/16 22:02 Dose: 50 mg Ascorbic Acid (Vitamin C -) 500 mg PO DAILY [facility] Last Admin: 09/04/16 11:18 Dose: 500 mg Atorvastatin Calcium (Lipitor -) 10 mg PO [facility] Last Admin: 09/03/16 21:50 Dose: 10 mg Bacitracin (Bacitracin -) 1 applic TP DAILY [facility] Last Admin: 09/03/16 15:15 Dose: 1 applic Docusate Sodium (Colace -) 100 mg PO DAILY [facility] Last Admin: 09/04/16 11:18 Dose: 100 mg Ferrous Sulfate (Feosol -) 325 mg PO BID [facility] Last Admin: 09/04/16 11:17 Dose: 325 mg Glipizide (Glucotrol Xl -) 2.5 mg PO ACBK [facility] Last Admin: 09/04/16 07:06 Dose: 2.5 mg IV Flush (Picc Line Flush) 8 ml IVPUSH PRN PRN PRN Reason: Protocol Daptomycin 240 mg/ Sodium (Chloride) 50 mls @ 50 mls/hr IVPB Q48H [facility] Last Admin: 09/02/16 17:17 Dose: 50 mls/hr Insulin Aspart (Novolog Vial Sliding Scale -) 1 vial SQ ACHS [facility] PRN Reason: Protocol Last Admin: 09/04/16 12:24 Dose: Not Given Isosorbide Mononitrate (Imdur -) 60 mg PO DAILY [facility] Lactobacillus Acidophilus (Bacid -) 1 tab PO BID [facility] Last Admin: 09/04/16 11:18 Dose: 1 tab Metoprolol Tartrate (Lopressor -) 100 mg PO BID [facility] Last Admin: 09/04/16 11:18 Dose: 100 mg Nifedipine (Procardia Xl -) 60 mg PO BID [facility] Last Admin: 09/04/16 11:18 Dose: 60 mg Ondansetron HCl (Zofran -) 4 mg PO Q8H PRN PRN Reason: NAUSEA Last Admin: 09/02/16 13:35 Dose: 4 mg Oxycodone HCl (Roxicodone -) 5 mg PO BID PRN PRN Reason: PAIN Last Admin: 09/01/16 20:15 Dose: 5 mg - Objective Vital Signs: Vital Signs Temperature 97.5 F L 09/04/16 10:00 Pulse Rate 68 09/04/16 10:00 Respiratory Rate 20 09/04/16 10:00 Blood Pressure 188/122 09/04/16 10:00 O2 Sat by Pulse Oximetry (%) 92 L 09/03/16 21:00 Constitutional: Yes: No Distress, Calm Eyes: Yes: Conjunctiva Clear HENT: Yes: Atraumatic Neck: Yes: Supple Cardiovascular: Yes: Regular Rate and Rhythm Respiratory: Yes: CTA Bilaterally Gastrointestinal: Yes: Soft. No: Distention, Tenderness Musculoskeletal: No: Joint Stiffness, Joint Swelling Extremities: No: Cold, Cool Edema: No Peripheral Pulses WNL: Yes Neurological: Yes: WNL, Alert, Oriented ...Motor Strength: WNL Psychiatric: Yes: WNL, Alert, Oriented. No: Agitated Labs: CBC, BMP 09/04/16 06:20 09/04/16 06:20 INR, PTT INR 1.05 (0.82-1.09) 08/29/16 15:55 - ....Imaging Other: Report Reviewed Assessment/Plan ASHD PVD smoker, h/o foot osteomyelitis DM, CRF ARF on CRF better creat R foot cellulitis r/o osteomyelitis IV ATB per ID foot MRI or bone scan, ID f/u vascular sx, podiatry eval renal eval gentle IVF started percocet prn, d/w pt risks and falls tolerance addiction, constipation etc, to use as needed only stools softeners prn zofran prn stop smoking falls PFX continue meds, d/w pt
[2016-09-04 16:08] LABS: KAPPA LAMBDA RATIO URIN 4.82 (2.04-10.37)
--- NOTE | 2016-09-04 18:38 | PN ---
Progress Note, Physician History of Present Illness: No c/o foot pain Tolerated daptomycin without adverse reaction - Current Medication List Current Medications: Active Medications Acetaminophen (Tylenol -) 650 mg PO Q6HPO [facility] Last Admin: 09/04/16 12:23 Dose: 650 mg Acetaminophen (Tylenol -) 325 mg PO BID PRN PRN Reason: PAIN Last Admin: 09/01/16 20:17 Dose: 325 mg Alprazolam (Xanax -) 0.25 mg PO Q12H PRN PRN Reason: ANXIETY Last Admin: 09/04/16 12:02 Dose: 0.25 mg Amitriptyline HCl (Elavil -) 50 mg PO [facility] Last Admin: 09/03/16 22:02 Dose: 50 mg Ascorbic Acid (Vitamin C -) 500 mg PO DAILY [facility] Last Admin: 09/04/16 11:18 Dose: 500 mg Atorvastatin Calcium (Lipitor -) 10 mg PO [facility] Last Admin: 09/03/16 21:50 Dose: 10 mg Bacitracin (Bacitracin -) 1 applic TP DAILY [facility] Last Admin: 09/03/16 15:15 Dose: 1 applic Docusate Sodium (Colace -) 100 mg PO DAILY [facility] Last Admin: 09/04/16 11:18 Dose: 100 mg Ferrous Sulfate (Feosol -) 325 mg PO BID [facility] Last Admin: 09/04/16 11:17 Dose: 325 mg Glipizide (Glucotrol Xl -) 2.5 mg PO ACBK [facility] Last Admin: 09/04/16 07:06 Dose: 2.5 mg IV Flush (Picc Line Flush) 8 ml IVPUSH PRN PRN PRN Reason: Protocol Daptomycin 240 mg/ Sodium (Chloride) 50 mls @ 50 mls/hr IVPB Q48H [facility] Last Admin: 09/02/16 17:17 Dose: 50 mls/hr Insulin Aspart (Novolog Vial Sliding Scale -) 1 vial SQ ACHS [facility] PRN Reason: Protocol Last Admin: 09/04/16 18:24 Dose: Not Given Isosorbide Mononitrate (Imdur -) 60 mg PO DAILY [facility] Lactobacillus Acidophilus (Bacid -) 1 tab PO BID [facility] Last Admin: 09/04/16 11:18 Dose: 1 tab Metoprolol Tartrate (Lopressor -) 100 mg PO BID [facility] Last Admin: 09/04/16 11:18 Dose: 100 mg Nifedipine (Procardia Xl -) 60 mg PO BID [facility] Last Admin: 09/04/16 11:18 Dose: 60 mg Ondansetron HCl (Zofran -) 4 mg PO Q8H PRN PRN Reason: NAUSEA Last Admin: 09/02/16 13:35 Dose: 4 mg Oxycodone HCl (Roxicodone -) 5 mg PO BID PRN PRN Reason: PAIN Last Admin: 09/01/16 20:15 Dose: 5 mg - Objective Vital Signs: Vital Signs Temperature 97.5 F L 09/04/16 17:37 Pulse Rate 70 09/04/16 17:37 Respiratory Rate 16 09/04/16 17:37 Blood Pressure 157/72 09/04/16 17:37 O2 Sat by Pulse Oximetry (%) 96 09/04/16 09:00 Constitutional: Yes: No Distress Eyes: Yes: Conjunctiva Clear Cardiovascular: Yes: Regular Rate and Rhythm, S1, S2 Respiratory: Yes: CTA Bilaterally Gastrointestinal: Yes: Normal Bowel Sounds, Soft. No: Tenderness Extremities: Yes: Other (decreased R 2nd toe swelling/ erythema dry ulcer, dorsal aspect of toe) Labs: CBC, BMP 09/04/16 06:20 09/04/16 06:20 INR, PTT INR 1.05 (0.82-1.09) 08/29/16 15:55 Assessment/Plan Cellulitis, probable osteo R 2nd toe DM Azotemia Antibiotic allergies Ceftaroline intolerance Continue daptomycin , adjusted for azotemia
[2016-09-04] MEDS: DAPTOMYCIN IVPB SCH (19:10)
[2016-09-04] MEDS: BACITRACIN 30 GM TUBE TOPICAL OINTMENT TP SCH (19:10)
[2016-09-04] MEDS: SODIUM CHLORIDE IVPB SCH (19:10)
[2016-09-04] MEDS ORDERED: INSULIN (NOVOLOG) ASPART 100 UNITS/ML 10ML VIAL ONE (21:52)
[2016-09-04] MEDS: ATORVASTATIN CA 10 MG TABLET (FP) PO SCH (22:01)
[2016-09-04] MEDS: AMITRIPTYLINE HCL 25 MG TABLET (FP) PO SCH (22:01)
[2016-09-05] MEDS: ALPRAZolam 0.25 MG TABLET PO PRN ×2 (00:19→19:25)
[2016-09-05] MEDS: ACETAMINOPHEN 325 MG TABLET (FP) PO SCH ×5 (00:20→23:47)
[2016-09-05] MEDS ORDERED: PT OWN MED DRAWER 7, Y5N ONE (06:34)
[2016-09-05] MEDS: glipiZIDE-XL 2.5 MG TAB.ER.24 PO SCH (06:36)
[2016-09-05] MEDS: INSULIN SLIDING SCALE (NOVOLOG) 1 VIAL SQ SCH ×4 (07:03→22:56)
--- NOTE | 2016-09-05 08:45 | PN ---
Progress Note (short form) - Note Progress Note: Renal Follow up for AGUSTÍN on CKD Pt seen and examined at the bedside no acute complaints off IVF No sob or chest pain appetite remains poor no N/V Vital Signs Temperature 98.2 F 09/05/16 07:00 Pulse Rate 62 09/05/16 07:00 Respiratory Rate 18 09/05/16 07:00 Blood Pressure 128/62 09/05/16 07:00 O2 Sat by Pulse Oximetry (%) 97 09/04/16 21:00 Intake & Output 09/02/16 09/03/16 09/04/16 09/05/16 23:59 23:59 23:59 23:59 Intake Total 2894 2918 2332 Balance 2894 2918 2332 Gen: NAD, awake and alert CVS: RRR, No M/R Lungs: + rales LLL Abd: soft NT/ND Ext: Trace edema b/l. + erythema on right 2nd digit. Dressing on left foot. Todays labs pending CBC, BMP 09/04/16 06:20 09/04/16 06:20 Current Medications Acetaminophen (Tylenol -) 650 mg PO Q6HPO [facility] Last Admin: 09/05/16 06:36 Dose: 650 mg Acetaminophen (Tylenol -) 325 mg PO BID PRN PRN Reason: PAIN Last Admin: 09/01/16 20:17 Dose: 325 mg Alprazolam (Xanax -) 0.25 mg PO Q12H PRN PRN Reason: ANXIETY Last Admin: 09/05/16 00:19 Dose: 0.25 mg Amitriptyline HCl (Elavil -) 50 mg PO HS [facility] Last Admin: 09/04/16 22:01 Dose: 50 mg Ascorbic Acid (Vitamin C -) 500 mg PO DAILY [facility] Last Admin: 09/04/16 11:18 Dose: Not Given Atorvastatin Calcium (Lipitor -) 10 mg PO HS [facility] Last Admin: 09/04/16 22:01 Dose: 10 mg Bacitracin (Bacitracin -) 1 applic TP DAILY [facility] Last Admin: 09/04/16 19:10 Dose: 1 applic Docusate Sodium (Colace -) 100 mg PO DAILY [facility] Last Admin: 09/04/16 11:18 Dose: Not Given Ferrous Sulfate (Feosol -) 325 mg PO BID [facility] Last Admin: 09/04/16 22:03 Dose: Not Given Glipizide (Glucotrol Xl -) 2.5 mg PO ACBK [facility] Last Admin: 09/05/16 06:36 Dose: 2.5 mg IV Flush (Picc Line Flush) 8 ml IVPUSH PRN PRN PRN Reason: Protocol Daptomycin 240 mg/ Sodium (Chloride) 50 mls @ 50 mls/hr IVPB Q48H [facility] Last Admin: 09/04/16 19:10 Dose: Not Given Insulin Aspart (Novolog Vial Sliding Scale -) 1 vial SQ ACHS [facility] PRN Reason: Protocol Last Admin: 09/04/16 22:02 Dose: Not Given Isosorbide Mononitrate (Imdur -) 60 mg PO DAILY [facility] Lactobacillus Acidophilus (Bacid -) 1 tab PO BID [facility] Last Admin: 09/04/16 22:00 Dose: 1 tab Metoprolol Tartrate (Lopressor -) 100 mg PO BID [facility] Last Admin: 09/04/16 22:02 Dose: 100 mg Nifedipine (Procardia Xl -) 60 mg PO BID [facility] Last Admin: 09/04/16 22:02 Dose: 60 mg Ondansetron HCl (Zofran -) 4 mg PO Q8H PRN PRN Reason: NAUSEA Last Admin: 09/02/16 13:35 Dose: 4 mg Oxycodone HCl (Roxicodone -) 5 mg PO BID PRN PRN Reason: PAIN Last Admin: 09/01/16 20:15 Dose: 5 mg A/P 81 year old woman with PMhx of CKD stage 3 (baseline Cr 1.6), Renal Artery stenosis (30% no intervention), Hypertension, DM Type 2, PVD who presented with suspected osteomylitis on b/l feet and found to have AGUSTÍN with BUN/Cr of 30/2.9. #Non-oliguirc AGUSTÍN on CKD secondary to NSAID use + JEANETTE -> renal hypoperufison/ATN Renal function improving as of yesterday todays labs pending off IVF avoid IV contrast, NSAIDs, Fleet enemas dose all meds for Cr cl less then 30 #Osteomylitis of LE continue Dapto as per ID Check CK levels periodically Quentin Goyal DO
[2016-09-05 09:01] LABS: EOSINOPHIL 7.7 % (0-4.5); MCH 30.6 pg (25.7-33.7); MEAN CELL VOLUME 90.2 fl (80-96); MEAN PLT VOLUME 7.8 fl (7.5-11.1); NEUTROPHILS 57.8 % (42.8-82.8); PLATELET COUNT 441 K/MM3 (134-434); RDW 12.3 % (11.6-15.6); WHITE BLOOD COUNT 9.6 K/mm3 (4.0-10.0)
[2016-09-05 09:24] LABS: CALCIUM 7.6 mg/dL (8.5-10.1); CREATININE 2.1 mg/dL (0.55-1.02); MAGNESIUM 2.2 mg/dL (1.8-2.4); PHOSPHOROUS 4.9 mg/dL (2.5-4.9)
[2016-09-05] MEDS ORDERED: DAPTOMYCIN IVPB ONE (11:00)
[2016-09-05] MEDS ORDERED: SODIUM CHLORIDE IVPB ONE (11:00)
[2016-09-05] MEDS: NIFEdipine E.R 60 MG TABLET (UD) PO SCH ×2 (11:10→23:51)
[2016-09-05] MEDS: METOPROLOL TARTRATE 50 MG TABLET (FP) PO SCH ×2 (11:10→23:46)
[2016-09-05] MEDS: ISOSORBIDE MONONITRATE 30 MG TAB.SR.24H (FP) PO SCH (11:11)
[2016-09-05] MEDS: LACTOBACILLUS ACIDOPHILUS 1 EACH TAB (FP) PO SCH ×2 (11:11→23:45)
[2016-09-05] MEDS: DOCUSATE SODIUM 100 MG CAPSULE (FP) PO SCH (11:13)
[2016-09-05] MEDS: ASCORBIC ACID 500 MG TABLET (FP) PO SCH (11:13)
[2016-09-05] MEDS: FERROUS SO4 325 MG TABLET (FP) PO SCH ×2 (11:13→23:46)
[2016-09-05] MEDS: BACITRACIN 30 GM TUBE TOPICAL OINTMENT TP SCH (11:16)
--- NOTE | 2016-09-05 12:07 | PN ---
Progress Note, Physician History of Present Illness: No c/o foot pain Refused daptomycin yesterday because of diarrhea Now willing to take dose No c/o fever/ chills - Current Medication List Current Medications: Active Medications Acetaminophen (Tylenol -) 650 mg PO Q6HPO [facility] Last Admin: 09/05/16 06:36 Dose: 650 mg Acetaminophen (Tylenol -) 325 mg PO BID PRN PRN Reason: PAIN Last Admin: 09/01/16 20:17 Dose: 325 mg Alprazolam (Xanax -) 0.25 mg PO Q12H PRN PRN Reason: ANXIETY Last Admin: 09/05/16 00:19 Dose: 0.25 mg Amitriptyline HCl (Elavil -) 50 mg PO HS [facility] Last Admin: 09/04/16 22:01 Dose: 50 mg Ascorbic Acid (Vitamin C -) 500 mg PO DAILY [facility] Last Admin: 09/05/16 11:13 Dose: Not Given Atorvastatin Calcium (Lipitor -) 10 mg PO [facility] Last Admin: 09/04/16 22:01 Dose: 10 mg Bacitracin (Bacitracin -) 1 applic TP DAILY [facility] Last Admin: 09/05/16 11:16 Dose: 1 applic Docusate Sodium (Colace -) 100 mg PO DAILY [facility] Last Admin: 09/05/16 11:13 Dose: Not Given Ferrous Sulfate (Feosol -) 325 mg PO BID [facility] Last Admin: 09/05/16 11:13 Dose: Not Given Glipizide (Glucotrol Xl -) 2.5 mg PO ACBK [facility] Last Admin: 09/05/16 06:36 Dose: 2.5 mg IV Flush (Picc Line Flush) 8 ml IVPUSH PRN PRN PRN Reason: Protocol Daptomycin 240 mg/ Sodium (Chloride) 50 mls @ 50 mls/hr IVPB Q48H [facility] Last Admin: 09/04/16 19:10 Dose: Not Given Insulin Aspart (Novolog Vial Sliding Scale -) 1 vial SQ ACHS [facility] PRN Reason: Protocol Last Admin: 09/04/16 22:02 Dose: Not Given Isosorbide Mononitrate (Imdur -) 60 mg PO DAILY [facility] Last Admin: 09/05/16 11:11 Dose: 60 mg Lactobacillus Acidophilus (Bacid -) 1 tab PO BID [facility] Last Admin: 09/05/16 11:11 Dose: 1 tab Metoprolol Tartrate (Lopressor -) 100 mg PO BID [facility] Last Admin: 09/05/16 11:10 Dose: 100 mg Nifedipine (Procardia Xl -) 60 mg PO BID [facility] Last Admin: 09/05/16 11:10 Dose: 60 mg Ondansetron HCl (Zofran -) 4 mg PO Q8H PRN PRN Reason: NAUSEA Last Admin: 09/02/16 13:35 Dose: 4 mg Oxycodone HCl (Roxicodone -) 5 mg PO BID PRN PRN Reason: PAIN Last Admin: 09/01/16 20:15 Dose: 5 mg - Objective Vital Signs: Vital Signs Temperature 98.2 F 09/05/16 07:00 Pulse Rate 62 09/05/16 07:00 Respiratory Rate 18 09/05/16 07:00 Blood Pressure 128/62 09/05/16 07:00 O2 Sat by Pulse Oximetry (%) 97 09/04/16 21:00 Constitutional: Yes: No Distress Eyes: Yes: Conjunctiva Clear Cardiovascular: Yes: Regular Rate and Rhythm, S1, S2 Respiratory: Yes: CTA Bilaterally Gastrointestinal: Yes: Normal Bowel Sounds, Soft. No: Tenderness Extremities: Yes: Other (decreased swelling, R 2nd toe + ulcer, dorsum of toe) Labs: CBC, BMP 09/05/16 07:43 09/05/16 07:43 INR, PTT INR 1.05 (0.82-1.09) 08/29/16 15:55 Assessment/Plan Cellulitis, probable osteo R 2nd toe DM Azotemia Antibiotic allergies Ceftaroline intolerance Continue daptomycin , adjusted for azotemia
--- NOTE | 2016-09-05 12:52 | PN ---
Progress Note, Physician Chief Complaint: had some diarrhea yesterday and refused daptomycin last night but better today and she took it; d/w ID dr Leong pt will need IV ATB x 6 weeks for osteomyelitis and PICC line, ordered and d/w pt and staff, GILBERTO loco in am - Current Medication List Current Medications: Active Medications Acetaminophen (Tylenol -) 650 mg PO Q6HPO [facility] Last Admin: 09/05/16 06:36 Dose: 650 mg Acetaminophen (Tylenol -) 325 mg PO BID PRN PRN Reason: PAIN Last Admin: 09/01/16 20:17 Dose: 325 mg Alprazolam (Xanax -) 0.25 mg PO Q12H PRN PRN Reason: ANXIETY Last Admin: 09/05/16 00:19 Dose: 0.25 mg Amitriptyline HCl (Elavil -) 50 mg PO [facility] Last Admin: 09/04/16 22:01 Dose: 50 mg Ascorbic Acid (Vitamin C -) 500 mg PO DAILY [facility] Last Admin: 09/05/16 11:13 Dose: Not Given Atorvastatin Calcium (Lipitor -) 10 mg PO [facility] Last Admin: 09/04/16 22:01 Dose: 10 mg Bacitracin (Bacitracin -) 1 applic TP DAILY [facility] Last Admin: 09/05/16 11:16 Dose: 1 applic Docusate Sodium (Colace -) 100 mg PO DAILY [facility] Last Admin: 09/05/16 11:13 Dose: Not Given Ferrous Sulfate (Feosol -) 325 mg PO BID [facility] Last Admin: 09/05/16 11:13 Dose: Not Given Glipizide (Glucotrol Xl -) 2.5 mg PO ACBK [facility] Last Admin: 09/05/16 06:36 Dose: 2.5 mg IV Flush (Picc Line Flush) 8 ml IVPUSH PRN PRN PRN Reason: Protocol Daptomycin 240 mg/ Sodium (Chloride) 50 mls @ 50 mls/hr IVPB Q48H [facility] Last Admin: 09/04/16 19:10 Dose: Not Given Insulin Aspart (Novolog Vial Sliding Scale -) 1 vial SQ ACHS [facility] PRN Reason: Protocol Last Admin: 09/05/16 12:15 Dose: Not Given Isosorbide Mononitrate (Imdur -) 60 mg PO DAILY [facility] Last Admin: 09/05/16 11:11 Dose: 60 mg Lactobacillus Acidophilus (Bacid -) 1 tab PO BID [facility] Last Admin: 09/05/16 11:11 Dose: 1 tab Metoprolol Tartrate (Lopressor -) 100 mg PO BID [facility] Last Admin: 09/05/16 11:10 Dose: 100 mg Nifedipine (Procardia Xl -) 60 mg PO BID [facility] Last Admin: 09/05/16 11:10 Dose: 60 mg Ondansetron HCl (Zofran -) 4 mg PO Q8H PRN PRN Reason: NAUSEA Last Admin: 09/02/16 13:35 Dose: 4 mg Oxycodone HCl (Roxicodone -) 5 mg PO BID PRN PRN Reason: PAIN Last Admin: 09/01/16 20:15 Dose: 5 mg - Objective Vital Signs: Vital Signs Temperature 98.2 F 09/05/16 07:00 Pulse Rate 62 09/05/16 07:00 Respiratory Rate 18 09/05/16 07:00 Blood Pressure 128/62 09/05/16 07:00 O2 Sat by Pulse Oximetry (%) 97 09/04/16 21:00 Constitutional: Yes: No Distress Eyes: Yes: Conjunctiva Clear HENT: Yes: Atraumatic Neck: Yes: Supple Cardiovascular: Yes: Regular Rate and Rhythm Respiratory: Yes: CTA Bilaterally Gastrointestinal: Yes: Soft. No: Distention, Tenderness Genitourinary: No: CVA Tenderness - Left, CVA Tenderness - Right Musculoskeletal: No: Joint Stiffness, Joint Swelling Extremities: No: Cold, Cool Edema: No Peripheral Pulses WNL: Yes Integumentary: Yes: Rash (R foot, better). No: Venous Stasis Changes Neurological: Yes: WNL, Alert, Oriented ...Motor Strength: WNL Psychiatric: Yes: WNL, Alert, Oriented. No: Agitated, Suicidal Ideation Labs: CBC, BMP 09/05/16 07:43 09/05/16 07:43 INR, PTT INR 1.05 (0.82-1.09) 08/29/16 15:55 - ....Imaging Other: Report Reviewed Assessment/Plan ASHD PVD smoker, h/o foot osteomyelitis DM, CRF ARF on CRF better creat R foot cellulitis and suspected osteomyelitis IV ATB per ID PICC line placement and DC planning per pt and CM percocet prn, d/w pt risks and falls tolerance addiction, constipation etc, to use as needed only stools softeners prn zofran prn stop smoking falls PFX continue meds, d/w pt
--- NOTE | 2016-09-05 13:54 | PN ---
Progress Note (short form) - Note Progress Note: Patient with osteo to her 2nd toe right foot. Patient is refusing to have a PICC placed. States the last time she had a PICC, the iv abx made her severely nauseous. She would rather take an oral medication. Patient understands the risks and is aware that her decision may result in a toe amputation down the road. Reconsult surgery prn. On behalf of Dr. Jane, thank you for the opportunity to participate in your patient's care. Problem List - Problems (1) Cellulitis of foot, right Code(s): L03.115 - CELLULITIS OF RIGHT LOWER LIMB
[2016-09-05] MEDS: AMITRIPTYLINE HCL 25 MG TABLET (FP) PO SCH (23:45)
[2016-09-05] MEDS: ATORVASTATIN CA 10 MG TABLET (FP) PO SCH (23:46)
[2016-09-06 00:06] LABS: C-ANCA <1:20 titer (Neg:<1:20); MYELOPEROXIDASE ANTIBODY <9.0 U/mL (0.0-9.0); P-ANCA <1:20 titer (Neg:<1:20); PROTEINASE-3 ANTIBODY <3.5 U/mL (0.0-3.5)
[2016-09-06] MEDS ORDERED: PT OWN MED DRAWER 7, Y5N ONE (06:54)
[2016-09-06] MEDS: ACETAMINOPHEN 325 MG TABLET (FP) PO SCH ×4 (06:57→23:52)
[2016-09-06] MEDS: glipiZIDE-XL 2.5 MG TAB.ER.24 PO SCH (06:57)
[2016-09-06] MEDS: INSULIN SLIDING SCALE (NOVOLOG) 1 VIAL SQ SCH ×4 (07:08→21:08)
[2016-09-06 09:00] LABS: BILIRUBIN,TOTAL 0.2 mg/dL (0.2-1.0); CALCIUM 7.5 mg/dL (8.5-10.1); CREATININE 2.4 mg/dL (0.55-1.02); MAGNESIUM 2.2 mg/dL (1.8-2.4); PHOSPHOROUS 4.8 mg/dL (2.5-4.9); TOT PROT 5.4 g/dl (6.4-8.2)
[2016-09-06 09:10] LABS: BASOPHIL 1.1 % (0-2.0); EOSINOPHIL 7.4 % (0-4.5); MCH 30.4 pg (25.7-33.7); MCHC 33.9 g/dl (32.0-36.0); MEAN CELL VOLUME 89.7 fl (80-96); MEAN PLT VOLUME 7.7 fl (7.5-11.1); NEUTROPHILS 56.3 % (42.8-82.8); PLATELET COUNT 444 K/MM3 (134-434); RDW 12.3 % (11.6-15.6); WHITE BLOOD COUNT 10.3 K/mm3 (4.0-10.0)
[2016-09-06] MEDS: ALPRAZolam 0.25 MG TABLET PO PRN ×2 (09:13→20:48)
[2016-09-06] MEDS: ASCORBIC ACID 500 MG TABLET (FP) PO SCH ×2 (10:51→12:13)
[2016-09-06] MEDS: METOPROLOL TARTRATE 50 MG TABLET (FP) PO SCH ×2 (10:51→21:07)
[2016-09-06] MEDS: ISOSORBIDE MONONITRATE 30 MG TAB.SR.24H (FP) PO SCH (10:51)
[2016-09-06] MEDS: FERROUS SO4 325 MG TABLET (FP) PO SCH ×3 (10:51→21:07)
[2016-09-06] MEDS: NIFEdipine E.R 60 MG TABLET (UD) PO SCH ×2 (10:52→21:07)
[2016-09-06] MEDS: LACTOBACILLUS ACIDOPHILUS 1 EACH TAB (FP) PO SCH ×2 (10:52→21:07)
[2016-09-06] MEDS: DOCUSATE SODIUM 100 MG CAPSULE (FP) PO SCH (10:53)
--- NOTE | 2016-09-06 11:46 | PN ---
Progress Note (short form) - Note Progress Note: Renal Follow up for AGUSTÍN on CKD Pt seen and examined at the bedside has diarrhea x 2 this morning no abd pain, N/V no chest pain, fever, sob good oral intake Vital Signs Temperature 98.4 F 09/06/16 10:46 Pulse Rate 65 09/06/16 10:46 Respiratory Rate 20 09/06/16 10:46 Blood Pressure 178/77 09/06/16 10:46 O2 Sat by Pulse Oximetry (%) 100 09/05/16 21:00 Intake & Output 09/03/16 09/04/16 09/05/16 09/06/16 23:59 23:59 23:59 23:59 Intake Total 2918 2332 890 265 Balance 2918 2332 890 265 Gen: NAD, awake and alert CVS: RRR, No M/R Lungs: + rales LLL Abd: soft NT/ND Ext: Trace edema b/l. + erythema on right 2nd digit. Dressing on left foot. Todays labs pending CBC, BMP 09/06/16 07:48 09/06/16 07:48 Current Medications Acetaminophen (Tylenol -) 650 mg PO Q6HPO [facility] Last Admin: 09/06/16 06:57 Dose: 650 mg Acetaminophen (Tylenol -) 325 mg PO BID PRN PRN Reason: PAIN Last Admin: 09/01/16 20:17 Dose: 325 mg Alprazolam (Xanax -) 0.25 mg PO Q12H PRN PRN Reason: ANXIETY Last Admin: 09/06/16 09:13 Dose: 0.25 mg Amitriptyline HCl (Elavil -) 50 mg PO HS [facility] Last Admin: 09/05/16 23:45 Dose: 50 mg Ascorbic Acid (Vitamin C -) 500 mg PO DAILY [facility] Last Admin: 09/05/16 11:13 Dose: Not Given Atorvastatin Calcium (Lipitor -) 10 mg PO HS [facility] Last Admin: 09/05/16 23:46 Dose: 10 mg Bacitracin (Bacitracin -) 1 applic TP DAILY [facility] Last Admin: 09/05/16 11:16 Dose: 1 applic Docusate Sodium (Colace -) 100 mg PO DAILY [facility] Last Admin: 09/06/16 10:53 Dose: Not Given Ferrous Sulfate (Feosol -) 325 mg PO BID [facility] Last Admin: 09/06/16 10:57 Dose: Not Given Glipizide (Glucotrol Xl -) 2.5 mg PO ACBK [facility] Last Admin: 09/06/16 06:57 Dose: 2.5 mg IV Flush (Picc Line Flush) 8 ml IVPUSH PRN PRN PRN Reason: Protocol Daptomycin 240 mg/ Sodium (Chloride) 50 mls @ 50 mls/hr IVPB Q48H [facility] Insulin Aspart (Novolog Vial Sliding Scale -) 1 vial SQ ACHS [facility] PRN Reason: Protocol Last Admin: 09/06/16 07:08 Dose: Not Given Isosorbide Mononitrate (Imdur -) 60 mg PO DAILY [facility] Last Admin: 09/06/16 10:51 Dose: 60 mg Lactobacillus Acidophilus (Bacid -) 1 tab PO BID [facility] Last Admin: 09/06/16 10:52 Dose: 1 tab Metoprolol Tartrate (Lopressor -) 100 mg PO BID [facility] Last Admin: 09/06/16 10:51 Dose: 100 mg Nifedipine (Procardia Xl -) 60 mg PO BID [facility] Last Admin: 09/06/16 10:52 Dose: 60 mg Ondansetron HCl (Zofran -) 4 mg PO Q8H PRN PRN Reason: NAUSEA Last Admin: 09/02/16 13:35 Dose: 4 mg Oxycodone HCl (Roxicodone -) 5 mg PO BID PRN PRN Reason: PAIN Last Admin: 09/01/16 20:15 Dose: 5 mg A/P 81 year old woman with PMhx of CKD stage 3 (baseline Cr 1.6), Renal Artery stenosis (30% no intervention), Hypertension, DM Type 2, PVD who presented with suspected osteomylitis on b/l feet and found to have AGUSTÍN with BUN/Cr of 30/2.9. #Non-oliguirc AGUSTÍN on CKD secondary to NSAID use + JEANETTE -> renal hypoperufison/ATN Cr worse today -? volume depletion secondary to diarrhea Restart NS today at 100cc per hour for 24 hours repeat BMP tomorrow #Osteomylitis of LE continue Dapto as per MEGHA Goyal DO
--- NOTE | 2016-09-06 11:49 | PN ---
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 or not; inclined to sign out AMA and leave the hospital - Current Medication List Current Medications: Active Medications Acetaminophen (Tylenol -) 650 mg PO Q6HPO [facility] Last Admin: 09/06/16 06:57 Dose: 650 mg Acetaminophen (Tylenol -) 325 mg PO BID PRN PRN Reason: PAIN Last Admin: 09/01/16 20:17 Dose: 325 mg Alprazolam (Xanax -) 0.25 mg PO Q12H PRN PRN Reason: ANXIETY Last Admin: 09/06/16 09:13 Dose: 0.25 mg Amitriptyline HCl (Elavil -) 50 mg PO HS [facility] Last Admin: 09/05/16 23:45 Dose: 50 mg Ascorbic Acid (Vitamin C -) 500 mg PO DAILY [facility] Last Admin: 09/05/16 11:13 Dose: Not Given Atorvastatin Calcium (Lipitor -) 10 mg PO HS [facility] Last Admin: 09/05/16 23:46 Dose: 10 mg Bacitracin (Bacitracin -) 1 applic TP DAILY [facility] Last Admin: 09/05/16 11:16 Dose: 1 applic Docusate Sodium (Colace -) 100 mg PO DAILY [facility] Last Admin: 09/06/16 10:53 Dose: Not Given Ferrous Sulfate (Feosol -) 325 mg PO BID [facility] Last Admin: 09/06/16 10:57 Dose: Not Given Glipizide (Glucotrol Xl -) 2.5 mg PO ACBK [facility] Last Admin: 09/06/16 06:57 Dose: 2.5 mg IV Flush (Picc Line Flush) 8 ml IVPUSH PRN PRN PRN Reason: Protocol Daptomycin 240 mg/ Sodium (Chloride) 50 mls @ 50 mls/hr IVPB Q48H [facility] Sodium Chloride (Normal Saline -) 1,000 mls @ 100 mls/hr IV ASDIR [facility] Stop: 09/07/16 11:44 Insulin Aspart (Novolog Vial Sliding Scale -) 1 vial SQ ACHS [facility] PRN Reason: Protocol Last Admin: 09/06/16 07:08 Dose: Not Given Isosorbide Mononitrate (Imdur -) 60 mg PO DAILY [facility] Last Admin: 01/17/17 10:51 Dose: 60 mg Lactobacillus Acidophilus (Bacid -) 1 tab PO BID [facility] Last Admin: 09/06/16 10:52 Dose: 1 tab Metoprolol Tartrate (Lopressor -) 100 mg PO BID [facility] Last Admin: 09/06/16 10:51 Dose: 100 mg Nifedipine (Procardia Xl -) 60 mg PO BID [facility] Last Admin: 09/06/16 10:52 Dose: 60 mg Ondansetron HCl (Zofran -) 4 mg PO Q8H PRN PRN Reason: NAUSEA Last Admin: 09/02/16 13:35 Dose: 4 mg Oxycodone HCl (Roxicodone -) 5 mg PO BID PRN PRN Reason: PAIN Last Admin: 09/01/16 20:15 Dose: 5 mg - Objective Vital Signs: Vital Signs Temperature 98.4 F 09/06/16 10:46 Pulse Rate 65 09/06/16 10:46 Respiratory Rate 20 09/06/16 10:46 Blood Pressure 178/77 09/06/16 10:46 O2 Sat by Pulse Oximetry (%) 100 09/05/16 21:00 Constitutional: Yes: No Distress Eyes: Yes: Conjunctiva Clear HENT: Yes: Atraumatic Neck: Yes: Supple Cardiovascular: Yes: Regular Rate and Rhythm Respiratory: Yes: CTA Bilaterally Gastrointestinal: Yes: Soft. No: Distention Extremities: No: Cold, Cool Edema: No Peripheral Pulses WNL: Yes Integumentary: No: Rash, Venous Stasis Changes Neurological: Yes: WNL, Alert, Oriented ...Motor Strength: WNL Psychiatric: Yes: WNL, Alert, Oriented. No: Agitated Labs: CBC, BMP 09/06/16 07:48 09/06/16 07:48 INR, PTT INR 1.05 (0.82-1.09) 08/29/16 15:55 - ....Imaging Other: Report Reviewed Assessment/Plan ASHD PVD smoker, h/o foot osteomyelitis DM, CRF ARF on CRF better creat R foot cellulitis and suspected osteomyelitis IV ATB per ID PICC line placement and DC planning per pt and CM, other [facility] pt to sign out AMA percocet prn, d/w pt risks and falls tolerance addiction, constipation etc, to use as needed only stools softeners prn zofran prn stop smoking falls PFX continue meds, d/w pt
[2016-09-06] MEDS: SODIUM CHLORIDE 1,000 ML IV SCH ×3 (12:30→15:31)
--- NOTE | 2016-09-06 13:37 | PN ---
Progress Note, Physician Chief Complaint: No c/o foot pain Tolerated Dapto. No diarrhea today No fever/ chills Pt ambulating - Current Medication List Current Medications: Active Medications Acetaminophen (Tylenol -) 650 mg PO Q6HPO [facility] Last Admin: 09/06/16 12:15 Dose: 650 mg Acetaminophen (Tylenol -) 325 mg PO BID PRN PRN Reason: PAIN Last Admin: 09/01/16 20:17 Dose: 325 mg Alprazolam (Xanax -) 0.25 mg PO Q12H PRN PRN Reason: ANXIETY Last Admin: 09/06/16 09:13 Dose: 0.25 mg Amitriptyline HCl (Elavil -) 50 mg PO HS [facility] Last Admin: 09/05/16 23:45 Dose: 50 mg Ascorbic Acid (Vitamin C -) 500 mg PO DAILY [facility] Last Admin: 09/06/16 12:13 Dose: Not Given Atorvastatin Calcium (Lipitor -) 10 mg PO [facility] Last Admin: 09/05/16 23:46 Dose: 10 mg Bacitracin (Bacitracin -) 1 applic TP DAILY [facility] Last Admin: 09/05/16 11:16 Dose: 1 applic Docusate Sodium (Colace -) 100 mg PO DAILY [facility] Last Admin: 09/06/16 10:53 Dose: Not Given Ferrous Sulfate (Feosol -) 325 mg PO BID [facility] Last Admin: 09/06/16 10:57 Dose: Not Given Glipizide (Glucotrol Xl -) 2.5 mg PO ACBK [facility] Last Admin: 09/06/16 06:57 Dose: 2.5 mg IV Flush (Picc Line Flush) 8 ml IVPUSH PRN PRN PRN Reason: Protocol Daptomycin 240 mg/ Sodium (Chloride) 50 mls @ 50 mls/hr IVPB Q48H [facility] Sodium Chloride (Normal Saline -) 1,000 mls @ 100 mls/hr IV ASDIR [facility] Stop: 09/07/16 11:44 Last Admin: 09/06/16 12:30 Dose: 100 mls/hr Insulin Aspart (Novolog Vial Sliding Scale -) 1 vial SQ ACHS [facility] PRN Reason: Protocol Last Admin: 09/06/16 12:13 Dose: Not Given Isosorbide Mononitrate (Imdur -) 60 mg PO DAILY [facility] Last Admin: 09/06/16 10:51 Dose: 60 mg Lactobacillus Acidophilus (Bacid -) 1 tab PO BID [facility] Last Admin: 09/06/16 10:52 Dose: 1 tab Metoprolol Tartrate (Lopressor -) 100 mg PO BID [facility] Last Admin: 09/06/16 10:51 Dose: 100 mg Nifedipine (Procardia Xl -) 60 mg PO BID [facility] Last Admin: 09/06/16 10:52 Dose: 60 mg Ondansetron HCl (Zofran -) 4 mg PO Q8H PRN PRN Reason: NAUSEA Last Admin: 09/02/16 13:35 Dose: 4 mg Oxycodone HCl (Roxicodone -) 5 mg PO BID PRN PRN Reason: PAIN Last Admin: 09/01/16 20:15 Dose: 5 mg - Objective Vital Signs: Vital Signs Temperature 98.4 F 09/06/16 10:46 Pulse Rate 65 09/06/16 10:46 Respiratory Rate 20 09/06/16 10:46 Blood Pressure 178/77 09/06/16 10:46 O2 Sat by Pulse Oximetry (%) 100 09/05/16 21:00 Constitutional: Yes: No Distress Eyes: Yes: Conjunctiva Clear Cardiovascular: Yes: Regular Rate and Rhythm, S1, S2 Respiratory: Yes: CTA Bilaterally Gastrointestinal: Yes: Normal Bowel Sounds, Soft. No: Tenderness Extremities: Yes: Other (R LE more swollen decreased erythema/ swelling 2nd toe No drainage) Labs: CBC, BMP 09/06/16 07:48 09/06/16 07:48 INR, PTT INR 1.05 (0.82-1.09) 08/29/16 15:55 Assessment/Plan Cellulitis, probable osteo R 2nd toe DM Azotemia Antibiotic allergies Ceftaroline intolerance Continue daptomycin , adjusted for azotemia Elevation . Asked pt to limit ambulation
[2016-09-06] MEDS: oxyCODONE HCL 5 MG TABLET PO PRN (15:36)
[2016-09-06] MEDS: ACETAMINOPHEN 325 MG TABLET (FP) PO PRN (15:37)
[2016-09-06] MEDS: BACITRACIN 30 GM TUBE TOPICAL OINTMENT TP SCH (18:00)
[2016-09-06] MEDS: AMITRIPTYLINE HCL 25 MG TABLET (FP) PO SCH (21:07)
[2016-09-06] MEDS: ATORVASTATIN CA 10 MG TABLET (FP) PO SCH (21:07)
[2016-09-07] MEDS: ACETAMINOPHEN 325 MG TABLET (FP) PO SCH ×3 (06:00→17:16)
[2016-09-07] MEDS: glipiZIDE-XL 2.5 MG TAB.ER.24 PO SCH (06:00)
[2016-09-07] MEDS: INSULIN SLIDING SCALE (NOVOLOG) 1 VIAL SQ SCH ×4 (06:02→22:02)
[2016-09-07 08:52] LABS: CALCIUM 7.4 mg/dL (8.5-10.1); CREATININE 2.3 mg/dL (0.55-1.02); MAGNESIUM 2.2 mg/dL (1.8-2.4); PHOSPHOROUS 4.5 mg/dL (2.5-4.9)
[2016-09-07] MEDS ORDERED: PT OWN MED DRAWER 7, Y5N ONE (09:17)
[2016-09-07] MEDS: LACTOBACILLUS ACIDOPHILUS 1 EACH TAB (FP) PO SCH ×2 (09:56→21:45)
[2016-09-07] MEDS: FERROUS SO4 325 MG TABLET (FP) PO SCH ×2 (09:56→21:46)
[2016-09-07] MEDS: METOPROLOL TARTRATE 50 MG TABLET (FP) PO SCH ×2 (09:57→21:46)
[2016-09-07] MEDS: ISOSORBIDE MONONITRATE 30 MG TAB.SR.24H (FP) PO SCH (09:57)
[2016-09-07] MEDS: NIFEdipine E.R 60 MG TABLET (UD) PO SCH ×2 (09:57→21:45)
[2016-09-07] MEDS: DOCUSATE SODIUM 100 MG CAPSULE (FP) PO SCH (09:58)
[2016-09-07] MEDS: ASCORBIC ACID 500 MG TABLET (FP) PO SCH (09:58)
[2016-09-07] MEDS: ALPRAZolam 0.25 MG TABLET PO PRN (10:17)
--- NOTE | 2016-09-07 10:50 | PN ---
Progress Note, Physician History of Present Illness: No c/o toe pain No fever/ chills Tolerating antibiotic - Current Medication List Current Medications: Active Medications Acetaminophen (Tylenol -) 650 mg PO Q6HPO [facility] Last Admin: 09/07/16 06:00 Dose: 650 mg Acetaminophen (Tylenol -) 325 mg PO BID PRN PRN Reason: PAIN Last Admin: 09/06/16 15:37 Dose: 325 mg Alprazolam (Xanax -) 0.25 mg PO Q12H PRN PRN Reason: ANXIETY Last Admin: 09/07/16 10:17 Dose: 0.25 mg Amitriptyline HCl (Elavil -) 50 mg PO HS [facility] Last Admin: 09/06/16 21:07 Dose: 50 mg Ascorbic Acid (Vitamin C -) 500 mg PO DAILY [facility] Last Admin: 09/07/16 09:58 Dose: 500 mg Atorvastatin Calcium (Lipitor -) 10 mg PO HS [facility] Last Admin: 09/06/16 21:07 Dose: 10 mg Bacitracin (Bacitracin -) 1 applic TP DAILY [facility] Last Admin: 09/06/16 18:00 Dose: 1 applic Docusate Sodium (Colace -) 100 mg PO DAILY [facility] Last Admin: 09/07/16 09:58 Dose: Not Given Ferrous Sulfate (Feosol -) 325 mg PO BID [facility] Last Admin: 09/07/16 09:56 Dose: 325 mg Glipizide (Glucotrol Xl -) 2.5 mg PO ACBK [facility] Last Admin: 09/07/16 06:00 Dose: 2.5 mg IV Flush (Picc Line Flush) 8 ml IVPUSH PRN PRN PRN Reason: Protocol Daptomycin 240 mg/ Sodium (Chloride) 50 mls @ 50 mls/hr IVPB Q48H [facility] Sodium Chloride (Normal Saline -) 1,000 mls @ 100 mls/hr IV ASDIR [facility] Stop: 09/07/16 11:44 Last Admin: 09/06/16 15:31 Dose: 100 mls/hr Insulin Aspart (Novolog Vial Sliding Scale -) 1 vial SQ ACHS [facility]AT[facility]Z PRN Reason: Protocol Last Admin: 09/07/16 06:02 Dose: Not Given Isosorbide Mononitrate (Imdur -) 60 mg PO DAILY [facility] Last Admin: 09/07/16 09:57 Dose: 60 mg Lactobacillus Acidophilus (Bacid -) 1 tab PO BID [facility] Last Admin: 09/07/16 09:56 Dose: 1 tab Metoprolol Tartrate (Lopressor -) 100 mg PO BID [facility] Last Admin: 09/07/16 09:57 Dose: 100 mg Nifedipine (Procardia Xl -) 60 mg PO BID [facility] Last Admin: 09/07/16 09:57 Dose: 60 mg Ondansetron HCl (Zofran -) 4 mg PO Q8H PRN PRN Reason: NAUSEA Last Admin: 09/02/16 13:35 Dose: 4 mg Oxycodone HCl (Roxicodone -) 5 mg PO BID PRN PRN Reason: PAIN Last Admin: 09/06/16 15:36 Dose: 5 mg - Objective Vital Signs: Vital Signs Temperature 97.8 F 09/07/16 10:00 Pulse Rate 76 09/07/16 10:00 Respiratory Rate 20 09/07/16 10:00 Blood Pressure 135/77 09/07/16 10:00 O2 Sat by Pulse Oximetry (%) 98 09/06/16 22:00 Constitutional: Yes: No Distress Eyes: Yes: Conjunctiva Clear Cardiovascular: Yes: Regular Rate and Rhythm, S1, S2 Respiratory: Yes: CTA Bilaterally Gastrointestinal: Yes: Normal Bowel Sounds, Soft. No: Tenderness Extremities: Yes: Other (decreased R 2nd toe swelling / erythema) Labs: CBC, BMP 09/06/16 07:48 09/07/16 06:35 INR, PTT INR 1.05 (0.82-1.09) 08/29/16 15:55 Assessment/Plan Cellulitis / R 2nd toe DM Azotemia Antibiotic allergies Ceftaroline intolerance Day # antibiotic therapy Will need roughly additional month of IV antibiotic therapy Continue daptomycin , adjusted for azotemia Elevation . Asked pt to limit ambulation
[2016-09-07] MEDS: DAPTOMYCIN IVPB SCH (11:05)
[2016-09-07] MEDS: SODIUM CHLORIDE IVPB SCH (11:05)
[2016-09-07] MEDS: BACITRACIN 30 GM TUBE TOPICAL OINTMENT TP SCH (12:04)
--- NOTE | 2016-09-07 14:56 | PN ---
Progress Note (short form) - Note Progress Note: Renal Follow up for AGUSTÍN on CKD Pt seen and examined at the bedside no acute complaints denies any sob or chest pain on IVF good urine output denies any muscle aches or pains Vital Signs Temperature 97.8 F 09/07/16 10:00 Pulse Rate 76 09/07/16 10:00 Respiratory Rate 20 09/07/16 10:00 Blood Pressure 135/77 09/07/16 10:00 O2 Sat by Pulse Oximetry (%) 98 09/07/16 09:00 Intake & Output 09/04/16 09/05/16 09/06/16 09/07/16 23:59 23:59 23:59 23:59 Intake Total 2332 890 1365 1850 Balance 2332 890 1365 1850 Gen: NAD, awake and alert CVS: RRR, No M/R Lungs: + rales LLL Abd: soft NT/ND Ext: Trace edema b/l. + erythema on right 2nd digit. Dressing on left foot. CBC, BMP 09/06/16 07:48 09/07/16 06:35 Current Medications Acetaminophen (Tylenol -) 650 mg PO Q6HPO [facility] Last Admin: 09/07/16 12:03 Dose: 650 mg Acetaminophen (Tylenol -) 325 mg PO BID PRN PRN Reason: PAIN Last Admin: 09/06/16 15:37 Dose: 325 mg Alprazolam (Xanax -) 0.25 mg PO Q12H PRN PRN Reason: ANXIETY Last Admin: 09/07/16 10:17 Dose: 0.25 mg Amitriptyline HCl (Elavil -) 50 mg PO HS [facility] Last Admin: 09/06/16 21:07 Dose: 50 mg Ascorbic Acid (Vitamin C -) 500 mg PO DAILY [facility] Last Admin: 09/07/16 09:58 Dose: 500 mg Atorvastatin Calcium (Lipitor -) 10 mg PO HS [facility] Last Admin: 09/06/16 21:07 Dose: 10 mg Bacitracin (Bacitracin -) 1 applic TP DAILY [facility] Last Admin: 09/07/16 12:04 Dose: 1 applic Docusate Sodium (Colace -) 100 mg PO DAILY [facility] Last Admin: 09/07/16 09:58 Dose: Not Given Ferrous Sulfate (Feosol -) 325 mg PO BID [facility] Last Admin: 09/07/16 09:56 Dose: 325 mg Glipizide (Glucotrol Xl -) 2.5 mg PO ACBK [facility] Last Admin: 09/07/16 06:00 Dose: 2.5 mg IV Flush (Picc Line Flush) 8 ml IVPUSH PRN PRN PRN Reason: Protocol Daptomycin 240 mg/ Sodium (Chloride) 50 mls @ 50 mls/hr IVPB Q48H [facility] Last Admin: 09/07/16 11:05 Dose: 50 mls/hr Insulin Aspart (Novolog Vial Sliding Scale -) 1 vial SQ ACHS [facility] PRN Reason: Protocol Last Admin: 09/07/16 12:04 Dose: Not Given Isosorbide Mononitrate (Imdur -) 60 mg PO DAILY [facility] Last Admin: 09/07/16 09:57 Dose: 60 mg Lactobacillus Acidophilus (Bacid -) 1 tab PO BID [facility] Last Admin: 09/07/16 09:56 Dose: 1 tab Metoprolol Tartrate (Lopressor -) 100 mg PO BID [facility] Last Admin: 09/07/16 09:57 Dose: 100 mg Nifedipine (Procardia Xl -) 60 mg PO BID [facility] Last Admin: 09/07/16 09:57 Dose: 60 mg Ondansetron HCl (Zofran -) 4 mg PO Q8H PRN PRN Reason: NAUSEA Last Admin: 09/02/16 13:35 Dose: 4 mg Oxycodone HCl (Roxicodone -) 5 mg PO BID PRN PRN Reason: PAIN Last Admin: 09/06/16 15:36 Dose: 5 mg Sodium Bicarbonate (Sodium Bicarbonate -) 650 mg PO DAILY [facility] A/P 81 year old woman with PMhx of CKD stage 3 (baseline Cr 1.6), Renal Artery stenosis (30% no intervention), Hypertension, DM Type 2, PVD who presented with suspected osteomylitis on b/l feet and found to have AGUSTÍN with BUN/Cr of 30/2.9. #Non-oliguirc AGUSTÍN on CKD secondary to NSAID use + JEANETTE -> renal hypoperufison/ATN Renal function w/o signifcant improvement despite IVF CK levels only 91 so no dapto induced rhabdo Repeat UA, UPCR, FeNa now continue NS for 1 more day #Osteomylitis of LE continue Dapto as per ID picc line placement pending Quentin Goyal DO
[2016-09-07] MEDS ORDERED: SODIUM CHLORIDE 1,000 ML IV SCH (15:00)
[2016-09-07] MEDS: SODIUM BICARBONATE 650 MG TABLET PO SCH (15:30)
[2016-09-07 17:52] LABS: URINE APPEARANCE SLCLOUDY; URINE BILIRUBIN NEGATIVE (NEGATIVE); URINE BLOOD NEGATIVE (NEGATIVE); URINE COLOR YELLOW; URINE GLUCOSE (UA) 3+ (NEGATIVE); URINE KETONE TRACE (NEGATIVE); URINE LEUK ESTERASE NEGATIVE (NEGATIVE); URINE NITRITE NEGATIVE (NEGATIVE); URINE UROBILINOGEN NEGATIVE E.U./dl (0.2-1.0)
[2016-09-07 17:59] LABS: URINE PROTEIN 3+ (NEGATIVE)
[2016-09-07 18:10] LABS: URINE RBC 1 /hpf (0-3); URINE WBC 2 /hpf (3-5)
--- NOTE | 2016-09-07 19:26 | PN ---
Progress Note (short form) - Note Progress Note: Vascular Surgery Pt seen and examined. Right second toe with bone protrusion. Best treatment is toe amputation. This way pt does not need antibiotics and can get back to daily living. Palpable DP pulse. Will plan for amputation on monday. Spoke to pt and she agrees. will discuss plan with ID. Bob Jane DO
--- NOTE | 2016-09-07 21:02 | PN ---
Progress Note, Physician Chief Complaint: in bed afebrile NAD decided to go ahead with the tunneled catheter if she can do it in hospital every other day and the hospital and arrange for daptomycin and transportation - Current Medication List Current Medications: Active Medications Acetaminophen (Tylenol -) 650 mg PO Q6HPO [facility] Last Admin: 09/07/16 17:16 Dose: 650 mg Acetaminophen (Tylenol -) 325 mg PO BID PRN PRN Reason: PAIN Last Admin: 09/06/16 15:37 Dose: 325 mg Alprazolam (Xanax -) 0.25 mg PO Q12H PRN PRN Reason: ANXIETY Last Admin: 09/07/16 10:17 Dose: 0.25 mg Amitriptyline HCl (Elavil -) 50 mg PO [facility] Last Admin: 09/06/16 21:07 Dose: 50 mg Ascorbic Acid (Vitamin C -) 500 mg PO DAILY [facility] Last Admin: 09/07/16 09:58 Dose: 500 mg Atorvastatin Calcium (Lipitor -) 10 mg PO [facility] Last Admin: 09/06/16 21:07 Dose: 10 mg Bacitracin (Bacitracin -) 1 applic TP DAILY [facility] Last Admin: 09/07/16 12:04 Dose: 1 applic Docusate Sodium (Colace -) 100 mg PO DAILY [facility] Last Admin: 09/07/16 09:58 Dose: Not Given Ferrous Sulfate (Feosol -) 325 mg PO BID [facility] Last Admin: 09/07/16 09:56 Dose: 325 mg Glipizide (Glucotrol Xl -) 2.5 mg PO ACBK [facility] Last Admin: 09/07/16 06:00 Dose: 2.5 mg IV Flush (Picc Line Flush) 8 ml IVPUSH PRN PRN PRN Reason: Protocol Daptomycin 240 mg/ Sodium (Chloride) 50 mls @ 50 mls/hr IVPB Q48H [facility] Last Admin: 09/07/16 11:05 Dose: 50 mls/hr Sodium Chloride (Normal Saline -) 1,000 mls @ 100 mls/hr IV ASDIR [facility] Last Admin: 09/07/16 15:28 Dose: 100 mls/hr Insulin Aspart (Novolog Vial Sliding Scale -) 1 vial SQ ACHS [facility] PRN Reason: Protocol Last Admin: 09/07/16 17:15 Dose: Not Given Isosorbide Mononitrate (Imdur -) 60 mg PO DAILY [facility] Last Admin: 09/07/16 09:57 Dose: 60 mg Lactobacillus Acidophilus (Bacid -) 1 tab PO BID [facility] Last Admin: 09/07/16 09:56 Dose: 1 tab Metoprolol Tartrate (Lopressor -) 100 mg PO BID [facility] Last Admin: 09/07/16 09:57 Dose: 100 mg Nifedipine (Procardia Xl -) 60 mg PO BID [facility] Last Admin: 09/07/16 09:57 Dose: 60 mg Ondansetron HCl (Zofran -) 4 mg PO Q8H PRN PRN Reason: NAUSEA Last Admin: 09/02/16 13:35 Dose: 4 mg Oxycodone HCl (Roxicodone -) 5 mg PO BID PRN PRN Reason: PAIN Last Admin: 09/06/16 15:36 Dose: 5 mg Sodium Bicarbonate (Sodium Bicarbonate -) 650 mg PO DAILY [facility] Last Admin: 09/07/16 15:30 Dose: 650 mg - Objective Vital Signs: Vital Signs Temperature 98.2 F 09/07/16 18:42 Pulse Rate 62 09/07/16 18:42 Respiratory Rate 20 09/07/16 18:42 Blood Pressure 149/58 09/07/16 18:42 O2 Sat by Pulse Oximetry (%) 98 09/07/16 09:00 Constitutional: Yes: No Distress Eyes: Yes: Conjunctiva Clear HENT: Yes: Atraumatic Neck: Yes: Supple Cardiovascular: Yes: Regular Rate and Rhythm Respiratory: Yes: CTA Bilaterally Gastrointestinal: Yes: Soft. No: Distention, Tenderness Genitourinary: No: CVA Tenderness - Left, CVA Tenderness - Right Musculoskeletal: No: Joint Stiffness, Joint Swelling Extremities: No: Cold, Cool Edema: No Peripheral Pulses WNL: Yes Integumentary: No: Rash (much less R foot rash), Venous Stasis Changes Neurological: Yes: WNL, Alert, Oriented ...Motor Strength: WNL Psychiatric: Yes: WNL, Alert, Oriented. No: Agitated Labs: CBC, BMP 09/06/16 07:48 09/07/16 06:35 INR, PTT INR 1.05 (0.82-1.09) 08/29/16 15:55 - ....Imaging Other: Report Reviewed Assessment/Plan ASHD PVD smoker, h/o foot osteomyelitis DM, CRF ARF on CRF better creat R foot cellulitis and suspected osteomyelitis IV ATB per ID tunneled catheter line placement and DC planning per pt and CM, other [facility] pt to sign out AMA percocet prn, d/w pt risks and falls tolerance addiction, constipation etc, to use as needed only stools softeners prn zofran prn stop smoking falls PFX continue meds, d/w pt
[2016-09-07] MEDS: ATORVASTATIN CA 10 MG TABLET (FP) PO SCH (21:45)
[2016-09-07] MEDS: AMITRIPTYLINE HCL 25 MG TABLET (FP) PO SCH (21:46)
[2016-09-08] MEDS: ACETAMINOPHEN 325 MG TABLET (FP) PO SCH ×4 (00:14→17:15)
[2016-09-08] MEDS: glipiZIDE-XL 2.5 MG TAB.ER.24 PO SCH (06:01)
[2016-09-08] MEDS: INSULIN SLIDING SCALE (NOVOLOG) 1 VIAL SQ SCH ×4 (06:02→21:59)
[2016-09-08 07:37] LABS: BASOPHIL 1.2 % (0-2.0); EOSINOPHIL 5.9 % (0-4.5); MCH 30.9 pg (25.7-33.7); MCHC 34.6 g/dl (32.0-36.0); MEAN CELL VOLUME 89.3 fl (80-96); MEAN PLT VOLUME 7.7 fl (7.5-11.1); NEUTROPHILS 59.3 % (42.8-82.8); PLATELET COUNT 532 K/MM3 (134-434); RDW 12.5 % (11.6-15.6)
[2016-09-08] MEDS: ALPRAZolam 0.25 MG TABLET PO PRN ×2 (07:59→20:02)
[2016-09-08 08:00] LABS: ALBUMIN 2.5 g/dl (3.4-5.0); ALK PHOS 75 U/L (45-117); ANION GAP 9 (8-16); CALCIUM 7.7 mg/dL (8.5-10.1); CO2 19 mmol/L (21-32); CREATININE 2.1 mg/dL (0.55-1.02); GLUCOSE,RANDOM 146 mg/dL (74-106); SGOT/AST 16 U/L (15-37); SGPT/ALT 14 U/L (12-78); TOT PROT 6.4 g/dl (6.4-8.2)
[2016-09-08 08:10] LABS: BILIRUBIN,TOTAL < 0.1 mg/dL (0.2-1.0)
[2016-09-08] MEDS: ASCORBIC ACID 500 MG TABLET (FP) PO SCH (09:56)
[2016-09-08] MEDS: METOPROLOL TARTRATE 50 MG TABLET (FP) PO SCH ×2 (09:56→22:00)
[2016-09-08] MEDS: LACTOBACILLUS ACIDOPHILUS 1 EACH TAB (FP) PO SCH ×2 (09:56→21:57)
[2016-09-08] MEDS: FERROUS SO4 325 MG TABLET (FP) PO SCH ×2 (09:56→22:02)
[2016-09-08] MEDS: ISOSORBIDE MONONITRATE 30 MG TAB.SR.24H (FP) PO SCH (09:56)
[2016-09-08] MEDS: SODIUM BICARBONATE 650 MG TABLET PO SCH (09:56)
[2016-09-08] MEDS: DOCUSATE SODIUM 100 MG CAPSULE (FP) PO SCH (09:56)
[2016-09-08] MEDS: NIFEdipine E.R 60 MG TABLET (UD) PO SCH ×2 (09:56→21:59)
[2016-09-08] MEDS: BACITRACIN 30 GM TUBE TOPICAL OINTMENT TP SCH (09:57)
--- NOTE | 2016-09-08 11:50 | PN ---
Progress Note, Physician History of Present Illness: No c/o foot pain no fever/chills - Current Medication List Current Medications: Active Medications Acetaminophen (Tylenol -) 650 mg PO Q6HPO [facility] Last Admin: 09/08/16 06:01 Dose: 650 mg Acetaminophen (Tylenol -) 325 mg PO BID PRN PRN Reason: PAIN Last Admin: 09/06/16 15:37 Dose: 325 mg Alprazolam (Xanax -) 0.25 mg PO Q12H PRN PRN Reason: ANXIETY Last Admin: 09/08/16 07:59 Dose: 0.25 mg Amitriptyline HCl (Elavil -) 50 mg PO [facility] Last Admin: 09/07/16 21:46 Dose: 50 mg Ascorbic Acid (Vitamin C -) 500 mg PO DAILY [facility] Last Admin: 09/08/16 09:56 Dose: 500 mg Atorvastatin Calcium (Lipitor -) 10 mg PO [facility] Last Admin: 09/07/16 21:45 Dose: 10 mg Bacitracin (Bacitracin -) 1 applic TP DAILY [facility] Last Admin: 09/08/16 09:57 Dose: 1 applic Docusate Sodium (Colace -) 100 mg PO DAILY [facility] Last Admin: 09/08/16 09:56 Dose: 100 mg Ferrous Sulfate (Feosol -) 325 mg PO BID [facility] Last Admin: 09/08/16 09:56 Dose: 325 mg Glipizide (Glucotrol Xl -) 2.5 mg PO ACBK [facility] Last Admin: 09/08/16 06:01 Dose: 2.5 mg IV Flush (Picc Line Flush) 8 ml IVPUSH PRN PRN PRN Reason: Protocol Daptomycin 240 mg/ Sodium (Chloride) 50 mls @ 50 mls/hr IVPB Q48H [facility] Last Admin: 09/07/16 11:05 Dose: 50 mls/hr Sodium Chloride (Normal Saline -) 1,000 mls @ 100 mls/hr IV ASDIR [facility] Last Admin: 09/07/16 15:28 Dose: 100 mls/hr Insulin Aspart (Novolog Vial Sliding Scale -) 1 vial SQ ACHS [facility] PRN Reason: Protocol Last Admin: 09/08/16 06:02 Dose: Not Given Isosorbide Mononitrate (Imdur -) 60 mg PO DAILY [facility] Last Admin: 09/08/16 09:56 Dose: 60 mg Lactobacillus Acidophilus (Bacid -) 1 tab PO BID [facility] Last Admin: 09/08/16 09:56 Dose: 1 tab Metoprolol Tartrate (Lopressor -) 100 mg PO BID [facility] Last Admin: 09/08/16 09:56 Dose: 100 mg Nifedipine (Procardia Xl -) 60 mg PO BID [facility] Last Admin: 09/08/16 09:56 Dose: 60 mg Ondansetron HCl (Zofran -) 4 mg PO Q8H PRN PRN Reason: NAUSEA Last Admin: 09/02/16 13:35 Dose: 4 mg Oxycodone HCl (Roxicodone -) 5 mg PO BID PRN PRN Reason: PAIN Last Admin: 09/06/16 15:36 Dose: 5 mg Sodium Bicarbonate (Sodium Bicarbonate -) 650 mg PO DAILY [facility] Last Admin: 09/08/16 09:56 Dose: 650 mg - Objective Vital Signs: Vital Signs Temperature 98.4 F 09/08/16 06:00 Pulse Rate 64 09/08/16 06:00 Respiratory Rate 18 09/08/16 06:00 Blood Pressure 156/76 09/08/16 06:00 O2 Sat by Pulse Oximetry (%) 98 09/07/16 22:00 Constitutional: Yes: No Distress Eyes: Yes: Conjunctiva Clear Cardiovascular: Yes: Regular Rate and Rhythm, S1, S2 Gastrointestinal: Yes: Normal Bowel Sounds, Soft Extremities: Yes: Other (decreased erythema/ swelling 2nd toe) Labs: CBC, BMP 09/08/16 06:30 09/08/16 06:30 INR, PTT INR 1.05 (0.82-1.09) 08/29/16 15:55 Assessment/Plan Cellulitis /osteomyelitis R 2nd toe DM Azotemia Antibiotic allergies Ceftaroline intolerance Day # antibiotic therapy Discussed with vascular surgery who reports exposed bone at toe ulcer As healing with medical therapy unlikely, he recommends toe amputation at this time
--- NOTE | 2016-09-08 12:58 | PN ---
Progress Note (short form) - Note Progress Note: Renal Follow up for AGUSTÍN on CKD Pt seen and examined at the bedside no acute complaints denies any diarrhea, abd pain, N/V on IVF good urine output Vital Signs Temperature 98.4 F 09/08/16 06:00 Pulse Rate 64 09/08/16 06:00 Respiratory Rate 18 09/08/16 06:00 Blood Pressure 156/76 09/08/16 06:00 O2 Sat by Pulse Oximetry (%) 98 09/07/16 22:00 Intake & Output 09/05/16 09/06/16 09/07/16 09/08/16 23:59 23:59 23:59 23:59 Intake Total 890 1365 3250 1500 Balance 890 1365 3250 1500 Gen: NAD, awake and alert CVS: RRR, No M/R Lungs: + rales LLL Abd: soft NT/ND Ext: Trace edema b/l. + erythema on right 2nd digit. Dressing on left foot. CBC, BMP 09/08/16 06:30 09/08/16 06:30 Current Medications Acetaminophen (Tylenol -) 650 mg PO Q6HPO [facility] Last Admin: 09/08/16 12:09 Dose: Not Given Acetaminophen (Tylenol -) 325 mg PO BID PRN PRN Reason: PAIN Last Admin: 09/06/16 15:37 Dose: 325 mg Alprazolam (Xanax -) 0.25 mg PO Q12H PRN PRN Reason: ANXIETY Last Admin: 09/08/16 07:59 Dose: 0.25 mg Amitriptyline HCl (Elavil -) 50 mg PO HS [facility] Last Admin: 09/07/16 21:46 Dose: 50 mg Ascorbic Acid (Vitamin C -) 500 mg PO DAILY [facility] Last Admin: 09/08/16 09:56 Dose: 500 mg Atorvastatin Calcium (Lipitor -) 10 mg PO HS [facility] Last Admin: 09/07/16 21:45 Dose: 10 mg Bacitracin (Bacitracin -) 1 applic TP DAILY [facility] Last Admin: 09/08/16 09:57 Dose: 1 applic Docusate Sodium (Colace -) 100 mg PO DAILY [facility] Last Admin: 09/08/16 09:56 Dose: 100 mg Ferrous Sulfate (Feosol -) 325 mg PO BID [facility] Last Admin: 01/19/17 09:56 Dose: 325 mg Glipizide (Glucotrol Xl -) 2.5 mg PO ACBK [facility] Last Admin: 09/08/16 06:01 Dose: 2.5 mg IV Flush (Picc Line Flush) 8 ml IVPUSH PRN PRN PRN Reason: Protocol Daptomycin 240 mg/ Sodium (Chloride) 50 mls @ 50 mls/hr IVPB Q48H [facility] Last Admin: 09/07/16 11:05 Dose: 50 mls/hr Sodium Chloride (1/2 Normal Saline) 1,000 mls @ 75 mls/hr IV ASDIR [facility] Insulin Aspart (Novolog Vial Sliding Scale -) 1 vial SQ ACHS [facility] PRN Reason: Protocol Last Admin: 09/08/16 12:08 Dose: Not Given Isosorbide Mononitrate (Imdur -) 60 mg PO DAILY [facility] Last Admin: 09/08/16 09:56 Dose: 60 mg Lactobacillus Acidophilus (Bacid -) 1 tab PO BID [facility] Last Admin: 09/08/16 09:56 Dose: 1 tab Metoprolol Tartrate (Lopressor -) 100 mg PO BID [facility] Last Admin: 09/08/16 09:56 Dose: 100 mg Nifedipine (Procardia Xl -) 60 mg PO BID [facility] Last Admin: 09/08/16 09:56 Dose: 60 mg Ondansetron HCl (Zofran -) 4 mg PO Q8H PRN PRN Reason: NAUSEA Last Admin: 09/02/16 13:35 Dose: 4 mg Oxycodone HCl (Roxicodone -) 5 mg PO BID PRN PRN Reason: PAIN Last Admin: 09/06/16 15:36 Dose: 5 mg Sodium Bicarbonate (Sodium Bicarbonate -) 650 mg PO DAILY [facility] Last Admin: 09/08/16 09:56 Dose: 650 mg A/P 81 year old woman with PMhx of CKD stage 3 (baseline Cr 1.6), Renal Artery stenosis (30% no intervention), Hypertension, DM Type 2, PVD who presented with suspected osteomylitis on b/l feet and found to have AGUSTÍN with BUN/Cr of 30/2.9. #Non-oliguirc AGUSTÍN on CKD secondary to NSAID use + JEANETTE -> renal hypoperufison/ATN Renal function now improved change IVF to hypotonic solution given high BP but continue for now Trend BUN/cr #Osteomylitis of LE continue Dapto as per ID for amputation of infected digit tomorrow #Hypertension BP is above goal Continue Nifedipine and Metoprolol Trend BP on / NS -> should be improved with less salt load Quentin Goyal DO
[2016-09-08] MEDS ORDERED: SODIUM CHLORIDE 0.45% 1,000 ML IV SCH (13:00)
--- NOTE | 2016-09-08 16:11 | PN ---
Progress Note (short form) - Note Progress Note: Vascular Surgery PRE-Op note: Procedure: right, second toe amputation Labs: CBC, BMP 09/08/16 06:30 09/08/16 06:30 INR, PTT INR 1.05 (0.82-1.09) 08/29/16 15:55 Problem List - Problems (1) Cellulitis of foot, right Assessment/Plan: Pt with right second toe infection/bony protrusion with palpable DP pulse s/p RLE bypass several years ago Will plan for right second toe amputation tomorrow Npo after midnight T&S for the OR Code(s): L03.115 - CELLULITIS OF RIGHT LOWER LIMB
--- NOTE | 2016-09-08 16:39 | CON.CARD ---
Consult Consult Specialty:: Cardiology Referred by:: Angela Barahona MD Reason for Consultation:: Pre-operative CV evaluation - History of Present Illness Chief Complaint: right 2nd toe cellulitis History of Present Illness: Patient is a 80 year old female with history of PAD S/P right fem pop bypass and toe amputations, CKD, HTN/HCVD, type 2 DM, CAD with abnl MPI, h/o hypercapneic respiratory failure due to anesthesia post ERCP, post cholecystectomy admitted for infected right 2nd toe with bone protrusion planned for toe amputation tomorrow. She is asymptomatic from CV standpoint and denies chest pain, SOB, near or true syncope, palpitations, orthopnea, PND or LE edema. - History Source History Provided By: Patient Limitations to Obtaining History: No Limitations - Past Medical History Cardio/Vascular: Yes: HTN, Hyperlipdemia, Murmur, Other (PAD) Pulmonary: Yes: Asthma, COPD Hepatobiliary: Yes: Cholelithiasis Infectious Disease: Yes: Other (history of osteomyelitis in the past) Endocrine: Yes: Diabetes Mellitus - Past Surgical History Past Surgical History: Yes: Amputation (1-st R toe amputation), Bypass (Right fem pop bypass) - Alcohol/Substance Use Hx Alcohol Use: No History of Substance Use: reports: None - Smoking History Smoking history: Current every day smoker Have you smoked in the past 12 months: Yes Aproximately how many cigarettes per day: 20 If you are a former smoker, when did you quit?: 08/10/2012 - Social History Usual Living Arrangement: Alone ADL: Independent 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, 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, 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 Travel: No Home Medications - Allergies Allergies/Adverse Reactions: Allergies Allergy/AdvReac Type Severity Reaction Status Date / Time iodine Allergy Rash Verified 08/29/16 14:28 penicillin V Allergy Verified 08/29/16 14:28 shellfish derived Allergy Rash Verified 08/29/16 14:28 vancomycin Allergy Verified 08/29/16 14:28 azithromycin AdvReac Verified 08/29/16 14:28 - Home Medications Home Medications: Ambulatory Orders Alprazolam 0.25 mg PO BID PRN 08/29/16 Amitriptyline HCl [Elavil -] 50 mg PO HS 08/29/16 Ascorbic Acid [Vitamin C -] 500 mg PO DAILY 08/29/16 Atorvastatin Ca [Lipitor] 10 mg PO HS 08/29/16 Ferrous Sulfate 325 mg PO BID 08/29/16 Furosemide [Lasix] 20 mg PO DAILY 08/29/16 Glipizide [Glipizide ER] 2.5 mg PO DAILY 08/29/16 Isosorbide Mononitrate [Isosorbide Mononitrate ER] 30 mg PO DAILY 08/29/16 Lactobacillus Acidophilus [Bacid -] 1 each PO BID 08/29/16 Metoprolol Tartrate 100 mg PO BID 08/29/16 Nifedipine ER [Procardia Xl -] 60 mg PO BID 08/29/16 Ondansetron [Zofran -] 4 mg PO PRN PRN 08/29/16 Ramipril 10 mg PO DAILY 08/29/16 Family Disease History - Family Disease History Family Disease History: CA: Father (lung ca), Mother (, lung ca), Sister (lung ca) Vital Signs: Vital Signs Temperature 98.9 F 09/08/16 14:08 Pulse Rate 55 L 09/08/16 14:08 Respiratory Rate 20 09/08/16 14:08 Blood Pressure 121/45 09/08/16 14:08 O2 Sat by Pulse Oximetry (%) 98 09/08/16 09:00 Constitutional: Yes: No Distress, Calm Neck: Yes: Supple Respiratory: Yes: Regular, CTA Bilaterally Gastrointestinal: Yes: Normal Bowel Sounds, Soft Cardiovascular: Yes: Regular Rate and Rhythm JVD: No Carotid Bruit: No Heart Sounds: Yes: S1, S2 Edema: No - Other Data Labs, Other Data: CBC, BMP 09/08/16 06:30 09/08/16 06:30 INR, PTT INR 1.05 (0.82-1.09) 08/29/16 15:55 NSR @ 75 min criteria LVH with nonspec ST changes Ejection Fraction %: LVEF > or = 40 % Problem List - Problems (1) Cellulitis of foot, right Code(s): L03.115 - CELLULITIS OF RIGHT LOWER LIMB (2) [id number] kidney injury Code(s): N17.9 - ACUTE KIDNEY FAILURE, UNSPECIFIED N18.9 - CHRONIC KIDNEY DISEASE, UNSPECIFIED (3) HTN (hypertension) Code(s): I10 - ESSENTIAL (PRIMARY) HYPERTENSION Qualifiers: Hypertension type: essential hypertension Qualified Code(s): I10 - Essential (primary) hypertension (4) Hyperlipidemia associated with type 2 diabetes mellitus Code(s): E11.69 - TYPE 2 DIABETES MELLITUS WITH OTHER SPECIFIED COMPLICATION E78.5 - HYPERLIPIDEMIA, UNSPECIFIED (5) PAD (peripheral artery disease) Code(s): I73.9 - PERIPHERAL VASCULAR DISEASE, UNSPECIFIED (6) Pre-operative cardiovascular examination, myocardial ischemia Code(s): I25.5 - ISCHEMIC CARDIOMYOPATHY Z01.810 - ENCOUNTER FOR PREPROCEDURAL CARDIOVASCULAR EXAMINATION (7) S/P femoropopliteal bypass surgery Code(s): Z95.828 - PRESENCE OF OTHER VASCULAR IMPLANTS AND GRAFTS (8) Anemia Code(s): D64.9 - ANEMIA, UNSPECIFIED Qualifiers: Anemia type: iron deficiency (9) COPD (chronic obstructive pulmonary disease) Code(s): J44.9 - CHRONIC OBSTRUCTIVE PULMONARY DISEASE, UNSPECIFIED Assessment/Plan 03/28/2016 Echo; Normal LV size and fxn, mod TR, mild MR 04/01/2016 P-Myoview: Mild apical ischemia, mild inferoapical ischemia, LVEF 70% 1. Pre-operative CV evaluation for right 2nd toe osteomyelitis/cellulitis 2. H/o acute hypercapneic respiratory failure post ERCP related to anesthesia 3. CAD angina pectoris, abnormal MPI 4. HTN 5. DM 6. Hypercholesterolemia 7. COPD 8. Acute on CKD improved 9. Anemia 10. History of PAD post right fem-pop bypass history of right toe osteomyelitis post amputation PLAN: 1. Given absence of sxs of acute coronary syndrome, decompensated CHF or malignant arrhythmia and low risk recent MPI, may proceed with toe amputation from CV standpoint without further testing, caution given h/o anesthesia- associated hypercapneic respiratory failure, check post-op EKG and cardiac enzymes 2. Continue Lopressor 100 bid and Procardia XL 60 bid, resume ramipril 10 qd once renal fxn at baseline 3. Continue Lipitor 10 qhs, Lasix 20 qd and Imdur 30 qd, hold ASA 81 qd and resume once hemostasis achieved 4. Thank you for consultative opportunity
[2016-09-08] MEDS: AMITRIPTYLINE HCL 25 MG TABLET (FP) PO SCH (21:57)
[2016-09-08] MEDS: ATORVASTATIN CA 10 MG TABLET (FP) PO SCH (21:59)
--- NOTE | 2016-09-08 22:20 | PN ---
Progress Note, Physician Chief Complaint: pt spoke with ID dr Leong and manager case management earlier today for possible infusion of IV ATB while pt DCd home but there were challenges. On the other hand, vascular surgery suggested toe amputation because has bone exposed, pt to think about it. - Current Medication List Current Medications: Active Medications Acetaminophen (Tylenol -) 650 mg PO Q6HPO [facility] Last Admin: 09/08/16 17:15 Dose: 650 mg Acetaminophen (Tylenol -) 325 mg PO BID PRN PRN Reason: PAIN Last Admin: 09/06/16 15:37 Dose: 325 mg Alprazolam (Xanax -) 0.25 mg PO Q12H PRN PRN Reason: ANXIETY Last Admin: 09/08/16 20:02 Dose: 0.25 mg Amitriptyline HCl (Elavil -) 50 mg PO HS [facility] Last Admin: 09/08/16 21:57 Dose: 50 mg Ascorbic Acid (Vitamin C -) 500 mg PO DAILY [facility] Last Admin: 09/08/16 09:56 Dose: 500 mg Atorvastatin Calcium (Lipitor -) 10 mg PO [facility] Last Admin: 09/08/16 21:59 Dose: 10 mg Bacitracin (Bacitracin -) 1 applic TP DAILY [facility] Last Admin: 09/08/16 09:57 Dose: 1 applic Docusate Sodium (Colace -) 100 mg PO DAILY [facility] Last Admin: 09/08/16 09:56 Dose: 100 mg Ferrous Sulfate (Feosol -) 325 mg PO BID [facility] Last Admin: 09/08/16 22:02 Dose: Not Given Glipizide (Glucotrol Xl -) 2.5 mg PO ACBK [facility] Last Admin: 09/08/16 06:01 Dose: 2.5 mg IV Flush (Picc Line Flush) 8 ml IVPUSH PRN PRN PRN Reason: Protocol Daptomycin 240 mg/ Sodium (Chloride) 50 mls @ 50 mls/hr IVPB Q48H [facility] Last Admin: 09/07/16 11:05 Dose: 50 mls/hr Sodium Chloride (1/2 Normal Saline) 1,000 mls @ 75 mls/hr IV ASDIR [facility] Last Admin: 09/08/16 14:34 Dose: 75 mls/hr Insulin Aspart (Novolog Vial Sliding Scale -) 1 vial SQ ACHS [facility] PRN Reason: Protocol Last Admin: 09/08/16 21:59 Dose: Not Given Isosorbide Mononitrate (Imdur -) 60 mg PO DAILY [facility] Last Admin: 09/08/16 09:56 Dose: 60 mg Lactobacillus Acidophilus (Bacid -) 1 tab PO BID [facility] Last Admin: 09/08/16 21:57 Dose: 1 tab Metoprolol Tartrate (Lopressor -) 100 mg PO BID [facility] Last Admin: 09/08/16 22:00 Dose: 100 mg Nifedipine (Procardia Xl -) 60 mg PO BID [facility] Last Admin: 09/08/16 21:59 Dose: 60 mg Ondansetron HCl (Zofran -) 4 mg PO Q8H PRN PRN Reason: NAUSEA Last Admin: 09/02/16 13:35 Dose: 4 mg Oxycodone HCl (Roxicodone -) 5 mg PO BID PRN PRN Reason: PAIN Last Admin: 09/06/16 15:36 Dose: 5 mg Sodium Bicarbonate (Sodium Bicarbonate -) 650 mg PO DAILY [facility] Last Admin: 09/08/16 09:56 Dose: 650 mg - Objective Vital Signs: Vital Signs Temperature 98.7 F 09/08/16 19:00 Pulse Rate 64 09/08/16 19:00 Respiratory Rate 20 09/08/16 19:00 Blood Pressure 124/58 09/08/16 19:00 O2 Sat by Pulse Oximetry (%) 98 09/08/16 20:08 Constitutional: Yes: No Distress Eyes: Yes: Conjunctiva Clear HENT: Yes: Atraumatic Neck: Yes: Supple Cardiovascular: Yes: Regular Rate and Rhythm Respiratory: Yes: CTA Bilaterally Gastrointestinal: Yes: Soft. No: Distention, Tenderness Genitourinary: No: CVA Tenderness - Left, CVA Tenderness - Right Musculoskeletal: No: Joint Stiffness, Joint Swelling Extremities: No: Cold, Cool Edema: No Peripheral Pulses WNL: Yes Neurological: Yes: WNL, Alert, Oriented ...Motor Strength: WNL Psychiatric: Yes: WNL, Alert, Oriented. No: Agitated Labs: CBC, BMP 09/08/16 06:30 09/08/16 06:30 INR, PTT INR 1.05 (0.82-1.09) 08/29/16 15:55 - ....Imaging Other: Report Reviewed Assessment/Plan ASHD PVD smoker, h/o foot osteomyelitis DM, CRF ARF on CRF better creat R foot cellulitis and suspected osteomyelitis IV ATB per ID possible toe amputation per vascular sx; cardiac cleared by dr Lam postop O2 sat (pt developed respiratory failure postop in the past) postop EKG and labs NO absolute contraindications for the proposed surgery NPO in am falls PFX continue meds, d/w pt
[2016-09-09] MEDS: ACETAMINOPHEN 325 MG TABLET (FP) PO SCH ×4 (01:01→17:17)
[2016-09-09] MEDS: INSULIN SLIDING SCALE (NOVOLOG) 1 VIAL SQ SCH ×4 (07:00→21:34)
[2016-09-09] MEDS: glipiZIDE-XL 2.5 MG TAB.ER.24 PO SCH (07:15)
[2016-09-09 07:59] LABS: EOSINOPHIL 6.2 % (0-4.5); MCH 30.9 pg (25.7-33.7); MCHC 34.2 g/dl (32.0-36.0); MEAN CELL VOLUME 90.4 fl (80-96); MEAN PLT VOLUME 7.5 fl (7.5-11.1); NEUTROPHILS 58.3 % (42.8-82.8); PLATELET COUNT 405 K/MM3 (134-434); RDW 12.5 % (11.6-15.6); WHITE BLOOD COUNT 10.3 K/mm3 (4.0-10.0)
[2016-09-09 08:18] LABS: CALCIUM 7.6 mg/dL (8.5-10.1); CREATININE 2.1 mg/dL (0.55-1.02)
[2016-09-09] MEDS ORDERED: BUPIVACAINE HCL/PF 0.5% (5MG/ML) 10 ML VIAL ONE (09:09)
[2016-09-09] MEDS ORDERED: LIDOCAINE HCL 1%, 10 MG/ML (20ML VIAL) ONE (09:09)
[2016-09-09] MEDS: NIFEdipine E.R 60 MG TABLET (UD) PO SCH ×2 (09:21→21:26)
[2016-09-09] MEDS: METOPROLOL TARTRATE 50 MG TABLET (FP) PO SCH ×2 (09:21→21:26)
[2016-09-09] MEDS: ISOSORBIDE MONONITRATE 30 MG TAB.SR.24H (FP) PO SCH (09:21)
[2016-09-09] MEDS ORDERED: MIDAZOLAM HCL 2 MG/2 ML SINGLE DOSE VIAL ONE (09:44)
[2016-09-09] MEDS ORDERED: PROPOFOL 20 ML ONE (10:06)
[2016-09-09] MEDS ORDERED: LIDOCAINE HCL 1%, 10 MG/ML (20ML VIAL) IJ ONE (10:13)
[2016-09-09] MEDS ORDERED: BACITRACIN 30 GM TUBE TOPICAL OINTMENT TP ONE (10:30)
[2016-09-09] MEDS ORDERED: BACITRACIN 30 GM TUBE TOPICAL OINTMENT ONE (10:31)
--- NOTE | 2016-09-09 11:03 | OP ---
Operative Note - Note: Operative Date: 09/09/16 Pre-Operative Diagnosis: right second toe osteomyleitis Operation: right second toe amputation Post-Operative Diagnosis: Same as Pre-op Surgeon: Bob Jane Anesthesia: Fractional Estimated Blood Loss (mls): 10 Operative Report Dictated: Yes
[2016-09-09 11:51] LABS: TROPONIN I < 0.02 ng/ml (0.00-0.05)
[2016-09-09] MEDS: SODIUM CHLORIDE IVPB SCH (12:37)
[2016-09-09] MEDS: DAPTOMYCIN IVPB SCH (12:37)
[2016-09-09] MEDS: BACITRACIN 30 GM TUBE TOPICAL OINTMENT TP SCH (12:40)
--- NOTE | 2016-09-09 12:46 | PN ---
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 - Current Medication List Current Medications: Active Medications Acetaminophen (Tylenol -) 650 mg PO Q6HPO [facility] Last Admin: 09/09/16 12:00 Dose: Not Given Acetaminophen (Tylenol -) 325 mg PO BID PRN PRN Reason: PAIN Last Admin: 09/06/16 15:37 Dose: 325 mg Alprazolam (Xanax -) 0.25 mg PO Q12H PRN PRN Reason: ANXIETY Last Admin: 09/08/16 20:02 Dose: 0.25 mg Amitriptyline HCl (Elavil -) 50 mg PO HS [facility] Last Admin: 09/08/16 21:57 Dose: 50 mg Ascorbic Acid (Vitamin C -) 500 mg PO DAILY [facility] Last Admin: 09/08/16 09:56 Dose: 500 mg Atorvastatin Calcium (Lipitor -) 10 mg PO HS [facility] Last Admin: 09/08/16 21:59 Dose: 10 mg Bacitracin (Bacitracin -) 1 applic TP DAILY [facility] Last Admin: 09/09/16 12:40 Dose: Not Given Docusate Sodium (Colace -) 100 mg PO DAILY [facility] Last Admin: 09/08/16 09:56 Dose: 100 mg Ferrous Sulfate (Feosol -) 325 mg PO BID [facility] Last Admin: 09/08/16 22:02 Dose: Not Given Glipizide (Glucotrol Xl -) 2.5 mg PO ACBK [facility] Last Admin: 09/09/16 07:15 Dose: Not Given IV Flush (Picc Line Flush) 8 ml IVPUSH PRN PRN PRN Reason: Protocol Daptomycin 240 mg/ Sodium (Chloride) 50 mls @ 50 mls/hr IVPB Q48H [facility] Last Admin: 09/09/16 12:37 Dose: 50 mls/hr Sodium Chloride (1/2 Normal Saline) 1,000 mls @ 75 mls/hr IV ASDIR [facility] Last Admin: 09/08/16 14:34 Dose: 75 mls/hr Insulin Aspart (Novolog Vial Sliding Scale -) 1 vial SQ ACHS [facility] PRN Reason: Protocol Last Admin: 09/09/16 12:41 Dose: Not Given Isosorbide Mononitrate (Imdur -) 60 mg PO DAILY [facility] Last Admin: 09/09/16 09:21 Dose: 60 mg Lactobacillus Acidophilus (Bacid -) 1 tab PO BID [facility] Last Admin: 09/08/16 21:57 Dose: 1 tab Metoprolol Tartrate (Lopressor -) 100 mg PO BID [facility] Last Admin: 09/09/16 09:21 Dose: 100 mg Nifedipine (Procardia Xl -) 60 mg PO BID [facility] Last Admin: 09/09/16 09:21 Dose: 60 mg Ondansetron HCl (Zofran -) 4 mg PO Q8H PRN PRN Reason: NAUSEA Last Admin: 09/02/16 13:35 Dose: 4 mg Oxycodone HCl (Roxicodone -) 5 mg PO BID PRN PRN Reason: PAIN Last Admin: 09/06/16 15:36 Dose: 5 mg Sodium Bicarbonate (Sodium Bicarbonate -) 650 mg PO DAILY [facility] Last Admin: 09/08/16 09:56 Dose: 650 mg - Objective Vital Signs: Vital Signs Temperature 98.3 F 09/09/16 09:25 Pulse Rate 74 09/09/16 09:25 Respiratory Rate 20 09/09/16 09:25 Blood Pressure 179/84 09/09/16 09:25 O2 Sat by Pulse Oximetry (%) 98 09/08/16 20:08 Constitutional: Yes: No Distress, Calm Neck: Yes: Supple Cardiovascular: Yes: Regular Rate and Rhythm Respiratory: Yes: Regular, CTA Bilaterally Gastrointestinal: Yes: Normal Bowel Sounds, Soft Edema: No Labs: CBC, BMP 09/09/16 06:15 09/09/16 06:15 INR, PTT INR 1.05 (0.82-1.09) 08/29/16 15:55 - ....Imaging EKG: Report Reviewed (EKG: SB @ [address]-T changes) Problem List - Problems (1) Cellulitis of foot, right Code(s): L03.115 - CELLULITIS OF RIGHT LOWER LIMB (2) [id number] kidney injury Code(s): N17.9 - ACUTE KIDNEY FAILURE, UNSPECIFIED N18.9 - CHRONIC KIDNEY DISEASE, UNSPECIFIED (3) HTN (hypertension) Code(s): I10 - ESSENTIAL (PRIMARY) HYPERTENSION Qualifiers: Hypertension type: essential hypertension Qualified Code(s): I10 - Essential (primary) hypertension (4) Hyperlipidemia associated with type 2 diabetes mellitus Code(s): E11.69 - TYPE 2 DIABETES MELLITUS WITH OTHER SPECIFIED COMPLICATION E78.5 - HYPERLIPIDEMIA, UNSPECIFIED (5) PAD (peripheral artery disease) Code(s): I73.9 - PERIPHERAL VASCULAR DISEASE, UNSPECIFIED (6) Pre-operative cardiovascular examination, myocardial ischemia Code(s): I25.5 - ISCHEMIC CARDIOMYOPATHY Z01.810 - ENCOUNTER FOR PREPROCEDURAL CARDIOVASCULAR EXAMINATION (7) S/P femoropopliteal bypass surgery Code(s): Z95.828 - PRESENCE OF OTHER VASCULAR IMPLANTS AND GRAFTS (8) Anemia Code(s): D64.9 - ANEMIA, UNSPECIFIED Qualifiers: Anemia type: iron deficiency (9) COPD (chronic obstructive pulmonary disease) Code(s): J44.9 - CHRONIC OBSTRUCTIVE PULMONARY DISEASE, UNSPECIFIED Assessment/Plan 03/28/2016 Echo; Normal LV size and fxn, mod TR, mild MR 04/01/2016 P-Myoview: Mild apical ischemia, mild inferoapical ischemia, LVEF 70% 1. Post-operative CV evaluation s/p 2nd toe amputation for osteomyelitis/ cellulitis stable CV [place] 2. H/o acute hypercapneic respiratory failure post ERCP related to anesthesia 3. CAD angina pectoris, abnormal MPI 4. HTN 5. DM 6. Hypercholesterolemia 7. COPD 8. Acute on CKD improved 9. Anemia 10. History of PAD post right fem-pop bypass history of right toe osteomyelitis post amputation PLAN: 1. F/u cardiac enzymes 2. Continue Lopressor 100 bid and Procardia XL 60 bid, resume ramipril 10 qd once renal fxn at baseline 3. Continue Lipitor 10 qhs, Lasix 20 qd and Imdur 30 qd, resume ASA 81 qd once hemostasis achieved 4. Abx course per ID
[2016-09-09] MEDS ORDERED: ACETAMINOPHEN 325 MG TABLET (FP) PO PRN (13:10)
[2016-09-09] MEDS ORDERED: PICC LINE 8 ML FLUSH PROTOCOL IVPUSH PRN (13:10)
[2016-09-09] MEDS ORDERED: SODIUM CHLORIDE 0.45% 1,000 ML IV SCH (13:10)
[2016-09-09] MEDS ORDERED: ONDANSETRON 4 MG TABLET PO PRN (13:10)
[2016-09-09] MEDS: ASCORBIC ACID 500 MG TABLET (FP) PO SCH (13:54)
[2016-09-09] MEDS: SODIUM BICARBONATE 650 MG TABLET PO SCH (13:55)
[2016-09-09] MEDS: LACTOBACILLUS ACIDOPHILUS 1 EACH TAB (FP) PO SCH ×2 (13:56→21:24)
[2016-09-09] MEDS: FERROUS SO4 325 MG TABLET (FP) PO SCH ×2 (13:57→21:25)
[2016-09-09] MEDS: DOCUSATE SODIUM 100 MG CAPSULE (FP) PO SCH (13:57)
--- NOTE | 2016-09-09 14:34 | PN ---
Progress Note (short form) - Note Progress Note: Renal Follow up for AGUSTÍN on CKD Pt seen and examined at the bedside s/p OR for Amputation has watery stools with mild abd discomfort Vital Signs Temperature 98.3 F 09/09/16 12:49 Pulse Rate 62 09/09/16 12:49 Respiratory Rate 20 09/09/16 12:49 Blood Pressure 129/81 09/09/16 12:49 O2 Sat by Pulse Oximetry (%) 95 09/09/16 12:49 Intake & Output 09/06/16 09/07/16 09/08/16 09/09/16 23:59 23:59 23:59 23:59 Intake Total 1365 3250 3530 750 Balance 1365 3250 3530 750 Gen: NAD, awake and alert CVS: RRR, No M/R Lungs: + rales LLL Abd: soft NT/ND Ext: Trace edema b/l. + erythema on right 2nd digit. Dressing on left foot. CBC, BMP 09/09/16 06:15 09/09/16 06:15 Current Medications Acetaminophen (Tylenol -) 325 mg PO BID PRN PRN Reason: PAIN Acetaminophen (Tylenol -) 650 mg PO Q6HPO [facility] Alprazolam (Xanax -) 0.25 mg PO Q12H PRN PRN Reason: ANXIETY Amitriptyline HCl (Elavil -) 50 mg PO HS [facility] Ascorbic Acid (Vitamin C -) 500 mg PO DAILY [facility] Atorvastatin Calcium (Lipitor -) 10 mg PO HS [facility] Bacitracin (Bacitracin -) 1 applic TP DAILY [facility] Docusate Sodium (Colace -) 100 mg PO DAILY [facility] Ferrous Sulfate (Feosol -) 325 mg PO BID [facility] Glipizide (Glucotrol Xl -) 2.5 mg PO ACBK [facility] IV Flush (Picc Line Flush) 8 ml IVPUSH PRN PRN PRN Reason: Protocol Daptomycin 240 mg/ Sodium (Chloride) 50 mls @ 50 mls/hr IVPB Q48H [facility] Sodium Chloride (1/2 Normal Saline) 1,000 mls @ 75 mls/hr IV ASDIR [facility] Insulin Aspart (Novolog Vial Sliding Scale -) 1 vial SQ ACHS [facility] PRN Reason: Protocol Isosorbide Mononitrate (Imdur -) 60 mg PO DAILY [facility] Lactobacillus Acidophilus (Bacid -) 1 tab PO BID [facility] Metoprolol Tartrate (Lopressor -) 100 mg PO BID [facility] Nifedipine (Procardia Xl -) 60 mg PO BID [facility] Ondansetron HCl (Zofran -) 4 mg PO Q8H PRN PRN Reason: NAUSEA Oxycodone HCl (Roxicodone -) 5 mg PO BID PRN PRN Reason: PAIN Sodium Bicarbonate (Sodium Bicarbonate -) 650 mg PO DAILY [facility] A/P 81 year old woman with PMhx of CKD stage 3 (baseline Cr 1.6), Renal Artery stenosis (30% no intervention), Hypertension, DM Type 2, PVD who presented with suspected osteomylitis on b/l feet and found to have AGUSTÍN with BUN/Cr of 30/2.9. #Non-oliguirc AGUSTÍN on CKD secondary to NSAID use + JEANETTE -> renal hypoperufison/ATN Renal function improved but not at baseline continue hypotonic IVF for now given pt has diarrhea trend BUN/Cr #Osteomylitis of LE continue Dapto as per ID s/p amputation #Hypertension BP now within goal continue current meds Quentin Goyal DO
--- NOTE | 2016-09-09 15:21 | EKG ---
Test Reason : Blood Pressure : / mmHG Vent. Rate : 057 BPM Atrial Rate : 057 BPM P-R Int : 200 ms QRS Dur : 090 ms QT Int : 454 ms P-R-T Axes : 050 024 041 degrees QTc Int : 441 ms SINUS BRADYCARDIA WHEN COMPARED WITH ECG OF 29-AUG-2016 16:24, NO SIGNIFICANT CHANGE WAS FOUND Confirmed by DELMY JACKSON MD ([id number]) on 09/09/2016 3:21:34 PM Referred By: RUDI LOPEZ Confirmed By:DELMY JACKSON MD
[2016-09-09] MEDS: oxyCODONE HCL 5 MG TABLET PO PRN ×2 (15:52→21:26)
--- NOTE | 2016-09-09 16:02 | PN ---
Progress Note, Physician Chief Complaint: post op toe amputation afebrile no c/o pain at present - Current Medication List Current Medications: Active Medications Acetaminophen (Tylenol -) 325 mg PO BID PRN PRN Reason: PAIN Acetaminophen (Tylenol -) 650 mg PO Q6HPO [facility] Alprazolam (Xanax -) 0.25 mg PO Q12H PRN PRN Reason: ANXIETY Amitriptyline HCl (Elavil -) 50 mg PO HS [facility] Ascorbic Acid (Vitamin C -) 500 mg PO DAILY [facility] Atorvastatin Calcium (Lipitor -) 10 mg PO HS [facility] Bacitracin (Bacitracin -) 1 applic TP DAILY [facility] Docusate Sodium (Colace -) 100 mg PO DAILY [facility] Ferrous Sulfate (Feosol -) 325 mg PO BID [facility] Glipizide (Glucotrol Xl -) 2.5 mg PO ACBK [facility] IV Flush (Picc Line Flush) 8 ml IVPUSH PRN PRN PRN Reason: Protocol Daptomycin 240 mg/ Sodium (Chloride) 50 mls @ 50 mls/hr IVPB Q48H [facility] Sodium Chloride (1/2 Normal Saline) 1,000 mls @ 75 mls/hr IV ASDIR [facility] Last Admin: 09/09/16 13:25 Dose: 75 mls/hr Insulin Aspart (Novolog Vial Sliding Scale -) 1 vial SQ ACHS [facility] PRN Reason: Protocol Isosorbide Mononitrate (Imdur -) 60 mg PO DAILY [facility] Lactobacillus Acidophilus (Bacid -) 1 tab PO BID [facility] Metoprolol Tartrate (Lopressor -) 100 mg PO BID [facility] Nifedipine (Procardia Xl -) 60 mg PO BID [facility] Ondansetron HCl (Zofran -) 4 mg PO Q8H PRN PRN Reason: NAUSEA Oxycodone HCl (Roxicodone -) 5 mg PO BID PRN PRN Reason: PAIN Last Admin: 09/09/16 15:52 Dose: 5 mg Sodium Bicarbonate (Sodium Bicarbonate -) 650 mg PO DAILY [facility] - Objective Vital Signs: Vital Signs Temperature 97.8 F 09/09/16 15:19 Pulse Rate 63 09/09/16 15:19 Respiratory Rate 20 09/09/16 15:19 Blood Pressure 150/56 09/09/16 15:19 O2 Sat by Pulse Oximetry (%) 95 09/09/16 12:49 Constitutional: Yes: No Distress Eyes: Yes: Conjunctiva Clear Cardiovascular: Yes: Regular Rate and Rhythm, S1, S2 Respiratory: Yes: CTA Bilaterally Gastrointestinal: Yes: Normal Bowel Sounds, Soft. No: Tenderness Extremities: Yes: Other (post op dressing in place) Labs: CBC, BMP 09/09/16 06:15 09/09/16 06:15 INR, PTT INR 1.05 (0.82-1.09) 08/29/16 15:55 Assessment/Plan Cellulitis /osteomyelitis R 2nd toe s/p amputation DM Azotemia Antibiotic allergies Ceftaroline intolerance Will D/C antibiotics post-operatively
[2016-09-09] MEDS: ALPRAZolam 0.25 MG TABLET PO PRN (18:01)
[2016-09-09] MEDS ORDERED: INSULIN (NOVOLOG) ASPART 100 UNITS/ML 10ML VIAL ONE (20:13)
--- NOTE | 2016-09-09 21:21 | PN ---
Progress Note, Physician Chief Complaint: s/p toe amputation, feels well, no CP/SOB - Current Medication List Current Medications: Active Medications Acetaminophen (Tylenol -) 325 mg PO BID PRN PRN Reason: PAIN Acetaminophen (Tylenol -) 650 mg PO Q6HPO [facility] Last Admin: 09/09/16 17:17 Dose: 650 mg Alprazolam (Xanax -) 0.25 mg PO Q12H PRN PRN Reason: ANXIETY Last Admin: 09/09/16 18:01 Dose: 0.25 mg Amitriptyline HCl (Elavil -) 50 mg PO HS [facility] Ascorbic Acid (Vitamin C -) 500 mg PO DAILY [facility] Atorvastatin Calcium (Lipitor -) 10 mg PO HS [facility] Bacitracin (Bacitracin -) 1 applic TP DAILY [facility] Docusate Sodium (Colace -) 100 mg PO DAILY [facility] Ferrous Sulfate (Feosol -) 325 mg PO BID [facility] Glipizide (Glucotrol Xl -) 2.5 mg PO ACBK [facility] IV Flush (Picc Line Flush) 8 ml IVPUSH PRN PRN PRN Reason: Protocol Daptomycin 240 mg/ Sodium (Chloride) 50 mls @ 50 mls/hr IVPB Q48H [facility] Sodium Chloride (1/2 Normal Saline) 1,000 mls @ 75 mls/hr IV ASDIR [facility] Last Admin: 09/09/16 13:25 Dose: 75 mls/hr Insulin Aspart (Novolog Vial Sliding Scale -) 1 vial SQ ACHS [facility] PRN Reason: Protocol Last Admin: 09/09/16 17:18 Dose: Not Given Isosorbide Mononitrate (Imdur -) 60 mg PO DAILY [facility] Lactobacillus Acidophilus (Bacid -) 1 tab PO BID [facility] Metoprolol Tartrate (Lopressor -) 100 mg PO BID [facility] Nifedipine (Procardia Xl -) 60 mg PO BID [facility] Ondansetron HCl (Zofran -) 4 mg PO Q8H PRN PRN Reason: NAUSEA Oxycodone HCl (Roxicodone -) 5 mg PO BID PRN PRN Reason: PAIN Last Admin: 09/09/16 15:52 Dose: 5 mg Sodium Bicarbonate (Sodium Bicarbonate -) 650 mg PO DAILY [facility] - Objective Vital Signs: Vital Signs Temperature 98.5 F 09/09/16 18:00 Pulse Rate 68 09/09/16 18:00 Respiratory Rate 18 09/09/16 18:00 Blood Pressure 148/60 09/09/16 18:00 O2 Sat by Pulse Oximetry (%) 95 09/09/16 12:49 Constitutional: Yes: No Distress Eyes: Yes: Conjunctiva Clear HENT: Yes: Atraumatic Neck: Yes: Supple Cardiovascular: Yes: Regular Rate and Rhythm Respiratory: Yes: CTA Bilaterally Gastrointestinal: Yes: Soft. No: Distention, Tenderness Genitourinary: No: Hematuria Musculoskeletal: No: Joint Stiffness, Joint Swelling Extremities: No: Cold, Cool Edema: No Peripheral Pulses WNL: Yes Integumentary: No: Rash, Venous Stasis Changes Neurological: Yes: WNL, Alert, Oriented ...Motor Strength: WNL Psychiatric: Yes: WNL, Alert, Oriented. No: Agitated Labs: CBC, BMP 09/09/16 06:15 09/09/16 06:15 INR, PTT INR 1.05 (0.82-1.09) 08/29/16 15:55 - ....Imaging Other: Report Reviewed Assessment/Plan ASHD PVD smoker, h/o foot osteomyelitis DM, CRF ARF on CRF better creat R foot cellulitis and suspected osteomyelitis IV ATB per ID s/p toe amputation per vascular sx; cardiac cleared by dr Lam PT rehab, further atb per ID; wound care per surgery falls PFX continue meds, d/w pt
[2016-09-09] MEDS: AMITRIPTYLINE HCL 25 MG TABLET (FP) PO SCH (21:25)
[2016-09-09] MEDS: ATORVASTATIN CA 10 MG TABLET (FP) PO SCH (21:25)
[2016-09-10] MEDS: ACETAMINOPHEN 325 MG TABLET (FP) PO SCH ×4 (01:48→17:52)
[2016-09-10] MEDS: oxyCODONE HCL 5 MG TABLET PO PRN ×2 (06:15→11:52)
[2016-09-10] MEDS: glipiZIDE-XL 2.5 MG TAB.ER.24 PO SCH (06:16)
[2016-09-10] MEDS: INSULIN SLIDING SCALE (NOVOLOG) 1 VIAL SQ SCH ×4 (06:16→21:41)
[2016-09-10 08:39] LABS: BASOPHIL 1.1 % (0-2.0); EOSINOPHIL 6.4 % (0-4.5); MCH 30.4 pg (25.7-33.7); MEAN CELL VOLUME 89.5 fl (80-96); MEAN PLT VOLUME 7.4 fl (7.5-11.1); NEUTROPHILS 59.2 % (42.8-82.8); PLATELET COUNT 365 K/MM3 (134-434); RDW 12.6 % (11.6-15.6); WHITE BLOOD COUNT 9.5 K/mm3 (4.0-10.0)
[2016-09-10 09:03] LABS: CALCIUM 7.3 mg/dL (8.5-10.1); CREATININE 1.9 mg/dL (0.55-1.02); PHOSPHOROUS 4.3 mg/dL (2.5-4.9)
[2016-09-10] MEDS ORDERED: SODIUM BICARBONATE 650 MG TABLET PO SCH (10:00)
--- NOTE | 2016-09-10 10:07 | PN ---
Progress Note (short form) - Note Progress Note: Renal Follow up for AGUSTÍN on CKD Pt seen and examined at the bedside no acute complaints no sob, chest pain good urine output Vital Signs Temperature 98.4 F 09/10/16 06:04 Pulse Rate 58 L 09/10/16 06:04 Respiratory Rate 18 09/10/16 06:04 Blood Pressure 124/54 09/10/16 06:04 O2 Sat by Pulse Oximetry (%) 95 09/09/16 21:00 Intake & Output 09/07/16 09/08/16 09/09/16 09/10/16 23:59 23:59 23:59 23:59 Intake Total 3250 3530 1950 570 Balance 3250 3530 1950 570 Gen: NAD, awake and alert CVS: RRR, No M/R Lungs: Dec BS Lung bases Abd: soft NT/ND Ext: Right foot in dressing. Minimal to trace edema in LE CBC, BMP 09/10/16 07:30 09/10/16 07:30 Current Medications Acetaminophen (Tylenol -) 325 mg PO BID PRN PRN Reason: PAIN Last Admin: 09/09/16 21:27 Dose: 325 mg Acetaminophen (Tylenol -) 650 mg PO Q6HPO [facility] Last Admin: 09/10/16 06:14 Dose: 650 mg Alprazolam (Xanax -) 0.25 mg PO Q12H PRN PRN Reason: ANXIETY Last Admin: 09/09/16 18:01 Dose: 0.25 mg Amitriptyline HCl (Elavil -) 50 mg PO [facility] Last Admin: 09/09/16 21:25 Dose: 50 mg Ascorbic Acid (Vitamin C -) 500 mg PO DAILY [facility] Atorvastatin Calcium (Lipitor -) 10 mg PO HS [facility] Last Admin: 09/09/16 21:25 Dose: 10 mg Bacitracin (Bacitracin -) 1 applic TP DAILY [facility] Docusate Sodium (Colace -) 100 mg PO DAILY [facility] Ferrous Sulfate (Feosol -) 325 mg PO BID [facility] Last Admin: 09/09/16 21:25 Dose: Not Given Glipizide (Glucotrol Xl -) 2.5 mg PO ACBK [facility] Last Admin: 09/10/16 06:16 Dose: 2.5 mg IV Flush (Picc Line Flush) 8 ml IVPUSH PRN PRN PRN Reason: Protocol Daptomycin 240 mg/ Sodium (Chloride) 50 mls @ 50 mls/hr IVPB Q48H [facility] Insulin Aspart (Novolog Vial Sliding Scale -) 1 vial SQ ACHS [facility] PRN Reason: Protocol Last Admin: 09/10/16 06:16 Dose: Not Given Isosorbide Mononitrate (Imdur -) 60 mg PO DAILY [facility] Lactobacillus Acidophilus (Bacid -) 1 tab PO BID [facility] Last Admin: 09/09/16 21:24 Dose: 1 tab Metoprolol Tartrate (Lopressor -) 100 mg PO BID [facility] Last Admin: 09/09/16 21:26 Dose: 100 mg Nifedipine (Procardia Xl -) 60 mg PO BID [facility] Last Admin: 09/09/16 21:26 Dose: 60 mg Ondansetron HCl (Zofran -) 4 mg PO Q8H PRN PRN Reason: NAUSEA Oxycodone HCl (Roxicodone -) 5 mg PO Q6H PRN PRN Reason: PAIN Last Admin: 09/10/16 06:15 Dose: 5 mg Sodium Bicarbonate (Sodium Bicarbonate -) 650 mg PO BID [facility] A/P 81 year old woman with PMhx of CKD stage 3 (baseline Cr 1.6), Renal Artery stenosis (30% no intervention), Hypertension, DM Type 2, PVD who presented with suspected osteomylitis on b/l feet and found to have AGUSTÍN with BUN/Cr of 30/2.9. #Non-oliguirc AGUSTÍN on CKD secondary to NSAID use + JEANETTE -> renal hypoperufison/ATN Renal function improving d/C IVF today trend BUN/cr off fluids Check CPK level in the morning increase sodium bicarb to BID #Osteomylitis of LE ? need for further Abx after amputation management as per ID and Vascular Sx #Hypertension BP elevated trend off IVF Quentin Goyal DO
[2016-09-10] MEDS ORDERED: PT OWN MED DRAWER 7, Y5N ONE (10:20)
[2016-09-10] MEDS: METOPROLOL TARTRATE 50 MG TABLET (FP) PO SCH ×2 (10:22→21:40)
[2016-09-10] MEDS: DOCUSATE SODIUM 100 MG CAPSULE (FP) PO SCH ×2 (10:22→10:30)
[2016-09-10] MEDS: LACTOBACILLUS ACIDOPHILUS 1 EACH TAB (FP) PO SCH ×2 (10:22→21:40)
[2016-09-10] MEDS: NIFEdipine E.R 60 MG TABLET (UD) PO SCH ×2 (10:22→21:41)
[2016-09-10] MEDS: ASCORBIC ACID 500 MG TABLET (FP) PO SCH (10:23)
[2016-09-10] MEDS: BACITRACIN 30 GM TUBE TOPICAL OINTMENT TP SCH (10:23)
[2016-09-10] MEDS: FERROUS SO4 325 MG TABLET (FP) PO SCH ×3 (10:23→21:41)
[2016-09-10] MEDS: SODIUM BICARBONATE 650 MG TABLET PO SCH ×2 (10:23→21:41)
[2016-09-10] MEDS: ISOSORBIDE MONONITRATE 30 MG TAB.SR.24H (FP) PO SCH (10:23)
--- NOTE | 2016-09-10 11:21 | PN ---
Progress Note, Physician Chief Complaint: in bed nad no pain no fever/chills; no weight bearing on R foot until monday per sx - Current Medication List Current Medications: Active Medications Acetaminophen (Tylenol -) 325 mg PO BID PRN PRN Reason: PAIN Last Admin: 09/09/16 21:27 Dose: 325 mg Acetaminophen (Tylenol -) 650 mg PO Q6HPO [facility] Last Admin: 09/10/16 06:14 Dose: 650 mg Alprazolam (Xanax -) 0.25 mg PO Q12H PRN PRN Reason: ANXIETY Last Admin: 09/09/16 18:01 Dose: 0.25 mg Amitriptyline HCl (Elavil -) 50 mg PO HS [facility] Last Admin: 09/09/16 21:25 Dose: 50 mg Ascorbic Acid (Vitamin C -) 500 mg PO DAILY [facility] Last Admin: 09/10/16 10:23 Dose: 500 mg Atorvastatin Calcium (Lipitor -) 10 mg PO HS [facility] Last Admin: 09/09/16 21:25 Dose: 10 mg Bacitracin (Bacitracin -) 1 applic TP DAILY [facility] Last Admin: 09/10/16 10:23 Dose: Not Given Docusate Sodium (Colace -) 100 mg PO DAILY [facility] Last Admin: 09/10/16 10:30 Dose: Not Given Ferrous Sulfate (Feosol -) 325 mg PO BID [facility] Last Admin: 09/10/16 10:29 Dose: Not Given Glipizide (Glucotrol Xl -) 2.5 mg PO ACBK [facility] Last Admin: 09/10/16 06:16 Dose: 2.5 mg IV Flush (Picc Line Flush) 8 ml IVPUSH PRN PRN PRN Reason: Protocol Daptomycin 240 mg/ Sodium (Chloride) 50 mls @ 50 mls/hr IVPB Q48H [facility] Insulin Aspart (Novolog Vial Sliding Scale -) 1 vial SQ ACHS [facility] PRN Reason: Protocol Last Admin: 09/10/16 06:16 Dose: Not Given Isosorbide Mononitrate (Imdur -) 60 mg PO DAILY [facility] Last Admin: 09/10/16 10:23 Dose: 60 mg Lactobacillus Acidophilus (Bacid -) 1 tab PO BID [facility] Last Admin: 09/10/16 10:22 Dose: 1 tab Metoprolol Tartrate (Lopressor -) 100 mg PO BID [facility] Last Admin: 09/10/16 10:22 Dose: 100 mg Nifedipine (Procardia Xl -) 60 mg PO BID [facility] Last Admin: 09/10/16 10:22 Dose: 60 mg Ondansetron HCl (Zofran -) 4 mg PO Q8H PRN PRN Reason: NAUSEA Oxycodone HCl (Roxicodone -) 5 mg PO Q6H PRN PRN Reason: PAIN Last Admin: 09/10/16 06:15 Dose: 5 mg Sodium Bicarbonate (Sodium Bicarbonate -) 650 mg PO BID [facility] Last Admin: 09/10/16 10:23 Dose: 650 mg - Objective Vital Signs: Vital Signs Temperature 98.4 F 09/10/16 09:30 Pulse Rate 63 09/10/16 09:30 Respiratory Rate 18 09/10/16 09:30 Blood Pressure 175/72 09/10/16 09:30 O2 Sat by Pulse Oximetry (%) 95 09/09/16 21:00 Constitutional: Yes: No Distress Eyes: Yes: Conjunctiva Clear HENT: Yes: Atraumatic Neck: Yes: Supple Cardiovascular: Yes: Regular Rate and Rhythm Respiratory: Yes: CTA Bilaterally Gastrointestinal: Yes: Soft. No: Distention, Tenderness Genitourinary: No: CVA Tenderness - Left, CVA Tenderness - Right Musculoskeletal: No: Joint Stiffness, Joint Swelling Extremities: Yes: Other (R foot s/p 2nd toe amputation wound dressed). No: Cold , Cool Edema: No Peripheral Pulses WNL: Yes Integumentary: No: Rash, Venous Stasis Changes Neurological: Yes: WNL, Alert, Oriented ...Motor Strength: WNL Psychiatric: Yes: WNL, Alert, Oriented. No: Agitated Labs: CBC, BMP 09/10/16 07:30 09/10/16 07:30 INR, PTT INR 1.05 (0.82-1.09) 08/29/16 15:55 - ....Imaging Other: Report Reviewed Assessment/Plan ASHD PVD smoker, h/o foot osteomyelitis DM, CRF ARF on CRF better creat R foot cellulitis and suspected osteomyelitis IV ATB per ID s/p toe amputation per vascular sx; doing well postop PT rehab, further atb per ID; wound care per surgery falls PFX continue meds, d/w pt
[2016-09-10] MEDS: RANITIDINE HCL 150 MG TABLET (FP) PO SCH (11:53)
--- NOTE | 2016-09-10 12:35 | PN ---
Progress Note, Physician - Current Medication List Current Medications: Active Medications Acetaminophen (Tylenol -) 325 mg PO BID PRN PRN Reason: PAIN Last Admin: 09/09/16 21:27 Dose: 325 mg Acetaminophen (Tylenol -) 650 mg PO Q6HPO [facility] Last Admin: 09/10/16 11:51 Dose: 650 mg Alprazolam (Xanax -) 0.25 mg PO Q12H PRN PRN Reason: ANXIETY Last Admin: 09/09/16 18:01 Dose: 0.25 mg Amitriptyline HCl (Elavil -) 50 mg PO HS [facility] Last Admin: 09/09/16 21:25 Dose: 50 mg Ascorbic Acid (Vitamin C -) 500 mg PO DAILY [facility] Last Admin: 09/10/16 10:23 Dose: 500 mg Atorvastatin Calcium (Lipitor -) 10 mg PO HS [facility] Last Admin: 09/09/16 21:25 Dose: 10 mg Bacitracin (Bacitracin -) 1 applic TP DAILY [facility] Last Admin: 09/10/16 10:23 Dose: Not Given Docusate Sodium (Colace -) 100 mg PO DAILY [facility] Last Admin: 09/10/16 10:30 Dose: Not Given Ferrous Sulfate (Feosol -) 325 mg PO BID [facility] Last Admin: 09/10/16 10:29 Dose: Not Given Glipizide (Glucotrol Xl -) 2.5 mg PO ACBK [facility] Last Admin: 09/10/16 06:16 Dose: 2.5 mg IV Flush (Picc Line Flush) 8 ml IVPUSH PRN PRN PRN Reason: Protocol Daptomycin 240 mg/ Sodium (Chloride) 50 mls @ 50 mls/hr IVPB Q48H [facility] Insulin Aspart (Novolog Vial Sliding Scale -) 1 vial SQ ACHS [facility] PRN Reason: Protocol Last Admin: 09/10/16 11:45 Dose: Not Given Isosorbide Mononitrate (Imdur -) 60 mg PO DAILY [facility] Last Admin: 09/10/16 10:23 Dose: 60 mg Lactobacillus Acidophilus (Bacid -) 1 tab PO BID [facility] Last Admin: 09/10/16 10:22 Dose: 1 tab Metoprolol Tartrate (Lopressor -) 100 mg PO BID [facility] Last Admin: 09/10/16 10:22 Dose: 100 mg Nifedipine (Procardia Xl -) 60 mg PO BID [facility] Last Admin: 09/10/16 10:22 Dose: 60 mg Ondansetron HCl (Zofran -) 4 mg PO Q8H PRN PRN Reason: NAUSEA Oxycodone HCl (Roxicodone -) 5 mg PO Q6H PRN PRN Reason: PAIN Last Admin: 09/10/16 11:52 Dose: 5 mg Ranitidine HCl (Zantac -) 150 mg PO DAILY [facility] Last Admin: 09/10/16 11:53 Dose: 150 mg Sodium Bicarbonate (Sodium Bicarbonate -) 650 mg PO BID [facility] Last Admin: 09/10/16 10:23 Dose: 650 mg - Objective Vital Signs: Vital Signs Temperature 98.4 F 09/10/16 09:30 Pulse Rate 63 09/10/16 09:30 Respiratory Rate 18 09/10/16 09:30 Blood Pressure 175/72 09/10/16 09:30 O2 Sat by Pulse Oximetry (%) 95 09/09/16 21:00 Labs: CBC, BMP 09/10/16 07:30 09/10/16 07:30 INR, PTT INR 1.05 (0.82-1.09) 08/29/16 15:55
--- NOTE | 2016-09-10 12:58 | PN ---
Progress Note (short form) - Note Progress Note: Patient seen and examined. Patient states she is doing well, pain is controlled with oxycodone and Tylenol. No complaints, denies F/C/N/V. Last Vital Signs Temp Pulse Resp BP Pulse Ox 98.4 F 63 18 175/72 95 09/10/16 09:30 09/10/16 09:30 09/10/16 09:30 09/10/16 09:30 09/09/16 21:00 CBC, BMP 09/10/16 07:30 09/10/16 07:30 PE: Gen: NAD, resting comfortably in bed RLE: sutures intact, no drainage, erythema, or hematoma, dressing replaced Problem List - Problems (1) Osteomyelitis Assessment/Plan: POD#1 s/p right second toe amputation for osteomyleitis Dressing changed on rounds Continue non-weightbearing RLE Code(s): M86.9 - OSTEOMYELITIS, UNSPECIFIED Qualifiers: Osteomyelitis location: foot Laterality: right Chronicity: unspecified Qualified Code(s): M86.9 - Osteomyelitis, unspecified
--- NOTE | 2016-09-10 18:34 | PN ---
Progress Note, Physician History of Present Illness: POD #1 No c/o foot pain No fever/ chills - Current Medication List Current Medications: Active Medications Acetaminophen (Tylenol -) 325 mg PO BID PRN PRN Reason: PAIN Last Admin: 09/09/16 21:27 Dose: 325 mg Acetaminophen (Tylenol -) 650 mg PO Q6HPO [facility] Last Admin: 09/10/16 17:52 Dose: Not Given Alprazolam (Xanax -) 0.25 mg PO Q12H PRN PRN Reason: ANXIETY Last Admin: 09/09/16 18:01 Dose: 0.25 mg Amitriptyline HCl (Elavil -) 50 mg PO HS [facility] Last Admin: 09/09/16 21:25 Dose: 50 mg Ascorbic Acid (Vitamin C -) 500 mg PO DAILY [facility] Last Admin: 09/10/16 10:23 Dose: 500 mg Atorvastatin Calcium (Lipitor -) 10 mg PO HS [facility] Last Admin: 09/09/16 21:25 Dose: 10 mg Bacitracin (Bacitracin -) 1 applic TP DAILY [facility] Last Admin: 09/10/16 10:23 Dose: Not Given Docusate Sodium (Colace -) 100 mg PO DAILY [facility] Last Admin: 09/10/16 10:30 Dose: Not Given Ferrous Sulfate (Feosol -) 325 mg PO BID [facility] Last Admin: 09/10/16 10:29 Dose: Not Given Glipizide (Glucotrol Xl -) 2.5 mg PO ACBK [facility] Last Admin: 09/10/16 06:16 Dose: 2.5 mg IV Flush (Picc Line Flush) 8 ml IVPUSH PRN PRN PRN Reason: Protocol Daptomycin 240 mg/ Sodium (Chloride) 50 mls @ 50 mls/hr IVPB Q48H [facility] Insulin Aspart (Novolog Vial Sliding Scale -) 1 vial SQ ACHS [facility] PRN Reason: Protocol Last Admin: 09/10/16 16:25 Dose: Not Given Isosorbide Mononitrate (Imdur -) 60 mg PO DAILY [facility] Last Admin: 09/10/16 10:23 Dose: 60 mg Lactobacillus Acidophilus (Bacid -) 1 tab PO BID [facility] Last Admin: 09/10/16 10:22 Dose: 1 tab Metoprolol Tartrate (Lopressor -) 100 mg PO BID [facility] Last Admin: 09/10/16 10:22 Dose: 100 mg Nifedipine (Procardia Xl -) 60 mg PO BID [facility] Last Admin: 09/10/16 10:22 Dose: 60 mg Ondansetron HCl (Zofran -) 4 mg PO Q8H PRN PRN Reason: NAUSEA Oxycodone HCl (Roxicodone -) 5 mg PO Q6H PRN PRN Reason: PAIN Last Admin: 09/10/16 11:52 Dose: 5 mg Ranitidine HCl (Zantac -) 150 mg PO DAILY [facility] Last Admin: 09/10/16 11:53 Dose: 150 mg Sodium Bicarbonate (Sodium Bicarbonate -) 650 mg PO BID [facility] Last Admin: 09/10/16 10:23 Dose: 650 mg - Objective Vital Signs: Vital Signs Temperature 98.7 F 09/10/16 14:00 Pulse Rate 60 09/10/16 14:00 Respiratory Rate 18 09/10/16 14:00 Blood Pressure 112/54 09/10/16 14:00 O2 Sat by Pulse Oximetry (%) 93 L 09/10/16 09:00 Constitutional: Yes: No Distress Cardiovascular: Yes: Regular Rate and Rhythm, S1, S2 Respiratory: Yes: CTA Bilaterally Gastrointestinal: Yes: Normal Bowel Sounds, Soft Extremities: Yes: Other (post op dressing in place) Labs: CBC, BMP 09/10/16 07:30 09/10/16 07:30 INR, PTT INR 1.05 (0.82-1.09) 08/29/16 15:55 Assessment/Plan Cellulitis /osteomyelitis R 2nd toe s/p amputation DM Azotemia Antibiotic allergies Ceftaroline intolerance D/C antibiotics after next dose
[2016-09-10] MEDS: ALPRAZolam 0.25 MG TABLET PO PRN (19:50)
[2016-09-10] MEDS ORDERED: INSULIN (NOVOLOG) ASPART 100 UNITS/ML 10ML VIAL ONE (21:25)
[2016-09-10] MEDS: ATORVASTATIN CA 10 MG TABLET (FP) PO SCH (21:40)
[2016-09-10] MEDS: AMITRIPTYLINE HCL 25 MG TABLET (FP) PO SCH (21:41)
--- NOTE | 2016-09-10 22:30 | PN ---
Progress Note, Physician Chief Complaint: Not in distress History of Present Illness: Patient was seen and examined. Awake and alert. Chart was reviewed Denies chest pain, SOB or palpitation 2nd toe amputation - Current Medication List Current Medications: Active Medications Acetaminophen (Tylenol -) 325 mg PO BID PRN PRN Reason: PAIN Last Admin: 09/09/16 21:27 Dose: 325 mg Acetaminophen (Tylenol -) 650 mg PO Q6HPO [facility] Last Admin: 09/10/16 17:52 Dose: Not Given Alprazolam (Xanax -) 0.25 mg PO Q12H PRN PRN Reason: ANXIETY Last Admin: 09/10/16 19:50 Dose: 0.25 mg Amitriptyline HCl (Elavil -) 50 mg PO HS [facility] Last Admin: 09/10/16 21:41 Dose: 50 mg Ascorbic Acid (Vitamin C -) 500 mg PO DAILY [facility] Last Admin: 09/10/16 10:23 Dose: 500 mg Atorvastatin Calcium (Lipitor -) 10 mg PO HS [facility] Last Admin: 09/10/16 21:40 Dose: 10 mg Bacitracin (Bacitracin -) 1 applic TP DAILY [facility] Last Admin: 09/10/16 10:23 Dose: Not Given Docusate Sodium (Colace -) 100 mg PO DAILY [facility] Last Admin: 09/10/16 10:30 Dose: Not Given Ferrous Sulfate (Feosol -) 325 mg PO BID [facility] Last Admin: 09/10/16 21:41 Dose: 325 mg Glipizide (Glucotrol Xl -) 2.5 mg PO ACBK [facility] Last Admin: 09/10/16 06:16 Dose: 2.5 mg IV Flush (Picc Line Flush) 8 ml IVPUSH PRN PRN PRN Reason: Protocol Daptomycin 240 mg/ Sodium (Chloride) 50 mls @ 50 mls/hr IVPB Q48H [facility] Insulin Aspart (Novolog Vial Sliding Scale -) 1 vial SQ ACHS [facility] PRN Reason: Protocol Last Admin: 09/10/16 21:41 Dose: Not Given Isosorbide Mononitrate (Imdur -) 60 mg PO DAILY [facility] Last Admin: 09/10/16 10:23 Dose: 60 mg Lactobacillus Acidophilus (Bacid -) 1 tab PO BID [facility] Last Admin: 09/10/16 21:40 Dose: 1 tab Metoprolol Tartrate (Lopressor -) 100 mg PO BID [facility] Last Admin: 09/10/16 21:40 Dose: 100 mg Nifedipine (Procardia Xl -) 60 mg PO BID [facility] Last Admin: 09/10/16 21:41 Dose: 60 mg Ondansetron HCl (Zofran -) 4 mg PO Q8H PRN PRN Reason: NAUSEA Oxycodone HCl (Roxicodone -) 5 mg PO Q6H PRN PRN Reason: PAIN Last Admin: 09/10/16 11:52 Dose: 5 mg Ranitidine HCl (Zantac -) 150 mg PO DAILY [facility] Last Admin: 09/10/16 11:53 Dose: 150 mg Sodium Bicarbonate (Sodium Bicarbonate -) 650 mg PO BID [facility] Last Admin: 09/10/16 21:41 Dose: 650 mg - Objective Vital Signs: Vital Signs Temperature 98.3 F 09/10/16 19:00 Pulse Rate 72 09/10/16 19:00 Respiratory Rate 18 09/10/16 19:00 Blood Pressure 150/59 09/10/16 19:00 O2 Sat by Pulse Oximetry (%) 93 L 09/10/16 09:00 Neck: Yes: Supple Cardiovascular: Yes: Regular Rate and Rhythm, S1, S2 Respiratory: Yes: CTA Bilaterally Gastrointestinal: Yes: Normal Bowel Sounds, Soft. No: Tenderness Extremities: Yes: Amputation Edema: No Labs: CBC, BMP 09/10/16 07:30 09/10/16 07:30 Problem List - Problems (1) COPD (chronic obstructive pulmonary disease) Code(s): J44.9 - CHRONIC OBSTRUCTIVE PULMONARY DISEASE, UNSPECIFIED (2) Osteomyelitis Code(s): M86.9 - OSTEOMYELITIS, UNSPECIFIED Qualifiers: Osteomyelitis location: foot Laterality: right Chronicity: unspecified Qualified Code(s): M86.9 - Osteomyelitis, unspecified (3) [id number] kidney injury Code(s): N17.9 - ACUTE KIDNEY FAILURE, UNSPECIFIED N18.9 - CHRONIC KIDNEY DISEASE, UNSPECIFIED (4) Amputated toe Code(s): Z89.429 - ACQUIRED ABSENCE OF OTHER TOE(S), UNSPECIFIED SIDE Qualifiers: Laterality: right Qualified Code(s): Z89.421 - Acquired absence of other right toe(s) (5) Anxiety Code(s): F41.9 - ANXIETY DISORDER, UNSPECIFIED (6) Diabetes Code(s): E11.9 - TYPE 2 DIABETES MELLITUS WITHOUT COMPLICATIONS Qualifiers: Diabetes mellitus type: type 2 Diabetes mellitus complication status: with skin complications Diabetes mellitus complication detail: with foot ulcer (7) HTN (hypertension) Code(s): I10 - ESSENTIAL (PRIMARY) HYPERTENSION Qualifiers: Hypertension type: essential hypertension Qualified Code(s): I10 - Essential (primary) hypertension (8) PAD (peripheral artery disease) Code(s): I73.9 - PERIPHERAL VASCULAR DISEASE, UNSPECIFIED (9) S/P femoropopliteal bypass surgery Code(s): Z95.828 - PRESENCE OF OTHER VASCULAR IMPLANTS AND GRAFTS (10) CAD (coronary artery disease) Code(s): I25.10 - ATHSCL HEART DISEASE OF [place] CORONARY ARTERY W/O ANG PCTRS Qualifiers: Coronary Disease-Associated Artery/Lesion type: [place] artery [place] vs. transplanted heart: [place] heart Associated angina: without angina Qualified Code(s): I25.10 - Atherosclerotic heart disease of [place] coronary artery without angina pectoris Assessment/Plan 1. Status post 2nd toe amputation for osteomyelitis/cellulitis 2. History of acute hypercapneic respiratory failure post ERCP related to anesthesia 3. CAD angina pectoris, abnormal MPI 4. HTN 5. DM 6. Hypercholesterolemia 7. COPD 8. Acute on CKD improved 9. Anemia 10. History of PAD post right fem-pop bypass history of right toe osteomyelitis post amputation PLAN: 1. Continue Lopressor 100 mg BID and Procardia XL 60 mg BID and resume Ramipril once renal function stabilizes 2. Continue Lipitor 10 mg QHS, Lasix 20 mg QD and Imdur 30 mg QD. Resume ASA 81 mg QD once when feasible 3. Antibiotics coverage Joseph Abbott MD
[2016-09-11] MEDS: ACETAMINOPHEN 325 MG TABLET (FP) PO SCH ×5 (02:03→17:53)
[2016-09-11] MEDS: glipiZIDE-XL 2.5 MG TAB.ER.24 PO SCH (06:36)
[2016-09-11] MEDS: INSULIN SLIDING SCALE (NOVOLOG) 1 VIAL SQ SCH ×4 (06:36→21:37)
[2016-09-11 07:48] LABS: BASOPHIL 1.1 % (0-2.0); EOSINOPHIL 4.5 % (0-4.5); MCH 30.2 pg (25.7-33.7); MEAN CELL VOLUME 88.9 fl (80-96); MEAN PLT VOLUME 7.7 fl (7.5-11.1); NEUTROPHILS 63.4 % (42.8-82.8); PLATELET COUNT 399 K/MM3 (134-434); RDW 12.4 % (11.6-15.6); WHITE BLOOD COUNT 11.1 K/mm3 (4.0-10.0)
[2016-09-11 09:05] LABS: CALCIUM 7.7 mg/dL (8.5-10.1)
[2016-09-11 09:08] LABS: CREATININE 2.1 mg/dL (0.55-1.02); PHOSPHOROUS 4.9 mg/dL (2.5-4.9)
[2016-09-11 09:12] LABS: FERRITIN 63.349 ng/ml (6.9-282.5); THYROID STIMULATING HORMONE 3.09 uIU/ml (0.358-3.74)
[2016-09-11] MEDS ORDERED: PT OWN MED DRAWER 7, Y5N ONE (10:49)
[2016-09-11] MEDS: SODIUM BICARBONATE 650 MG TABLET PO SCH ×2 (10:58→21:37)
[2016-09-11] MEDS: RANITIDINE HCL 150 MG TABLET (FP) PO SCH (10:58)
[2016-09-11] MEDS: ASCORBIC ACID 500 MG TABLET (FP) PO SCH (10:58)
[2016-09-11] MEDS: NIFEdipine E.R 60 MG TABLET (UD) PO SCH ×2 (10:58→21:37)
[2016-09-11] MEDS: LACTOBACILLUS ACIDOPHILUS 1 EACH TAB (FP) PO SCH ×2 (10:58→21:36)
[2016-09-11] MEDS: BACITRACIN 30 GM TUBE TOPICAL OINTMENT TP SCH (10:59)
[2016-09-11] MEDS: ISOSORBIDE MONONITRATE 30 MG TAB.SR.24H (FP) PO SCH (10:59)
[2016-09-11] MEDS: DOCUSATE SODIUM 100 MG CAPSULE (FP) PO SCH (10:59)
[2016-09-11] MEDS: FERROUS SO4 325 MG TABLET (FP) PO SCH ×2 (10:59→21:36)
[2016-09-11] MEDS: DAPTOMYCIN IVPB SCH (11:00)
[2016-09-11] MEDS: SODIUM CHLORIDE IVPB SCH (11:00)
[2016-09-11] MEDS: METOPROLOL TARTRATE 50 MG TABLET (FP) PO SCH ×2 (11:00→21:37)
--- NOTE | 2016-09-11 12:49 | PN ---
Progress Note, Physician Chief Complaint: s/p 2nd toe amputation POD3 doing well no c/o, no pain or bleed; was on ASA baby dose daily before, will restart it; po zantac for GI pfx not ambulatory, per pt she was told by surgery she can not step on it yet; start sq heparin; PT and CM eval in am - Current Medication List Current Medications: Active Medications Acetaminophen (Tylenol -) 325 mg PO BID PRN PRN Reason: PAIN Last Admin: 09/09/16 21:27 Dose: 325 mg Acetaminophen (Tylenol -) 650 mg PO Q6HPO [facility] Last Admin: 09/11/16 11:42 Dose: Not Given Alprazolam (Xanax -) 0.25 mg PO Q12H PRN PRN Reason: ANXIETY Last Admin: 09/10/16 19:50 Dose: 0.25 mg Amitriptyline HCl (Elavil -) 50 mg PO HS [facility] Last Admin: 09/10/16 21:41 Dose: 50 mg Ascorbic Acid (Vitamin C -) 500 mg PO DAILY [facility] Last Admin: 09/11/16 10:58 Dose: 500 mg Aspirin (Ecotrin -) 81 mg PO DAILY [facility] Atorvastatin Calcium (Lipitor -) 10 mg PO HS [facility] Last Admin: 09/10/16 21:40 Dose: 10 mg Bacitracin (Bacitracin -) 1 applic TP DAILY [facility] Last Admin: 09/11/16 10:59 Dose: Not Given Docusate Sodium (Colace -) 100 mg PO DAILY [facility] Last Admin: 09/11/16 10:59 Dose: 100 mg Ferrous Sulfate (Feosol -) 325 mg PO BID [facility] Last Admin: 09/11/16 10:59 Dose: 325 mg Glipizide (Glucotrol Xl -) 2.5 mg PO ACBK [facility] Last Admin: 09/11/16 06:36 Dose: 2.5 mg Heparin Sodium (Porcine) (Heparin -) 5,000 unit SQ BID [facility] IV Flush (Picc Line Flush) 8 ml IVPUSH PRN PRN PRN Reason: Protocol Daptomycin 240 mg/ Sodium (Chloride) 50 mls @ 50 mls/hr IVPB Q48H [facility] Last Admin: 09/11/16 11:00 Dose: 50 mls/hr Insulin Aspart (Novolog Vial Sliding Scale -) 1 vial SQ ACHS [facility] PRN Reason: Protocol Last Admin: 09/11/16 11:42 Dose: Not Given Isosorbide Mononitrate (Imdur -) 90 mg PO DAILY [facility] Lactobacillus Acidophilus (Bacid -) 1 tab PO BID [facility] Last Admin: 09/11/16 10:58 Dose: 1 tab Metoprolol Tartrate (Lopressor -) 100 mg PO BID [facility] Last Admin: 09/11/16 11:00 Dose: 100 mg Nifedipine (Procardia Xl -) 60 mg PO BID [facility] Last Admin: 09/11/16 10:58 Dose: 60 mg Ondansetron HCl (Zofran -) 4 mg PO Q8H PRN PRN Reason: NAUSEA Oxycodone HCl (Roxicodone -) 5 mg PO Q6H PRN PRN Reason: PAIN Last Admin: 09/10/16 11:52 Dose: 5 mg Ranitidine HCl (Zantac -) 150 mg PO DAILY [facility] Last Admin: 09/11/16 10:58 Dose: 150 mg Sodium Bicarbonate (Sodium Bicarbonate -) 650 mg PO BID [facility] Last Admin: 09/11/16 10:58 Dose: 650 mg - Objective Vital Signs: Vital Signs Temperature 98.1 F 09/11/16 09:20 Pulse Rate 69 09/11/16 09:20 Respiratory Rate 16 09/11/16 09:20 Blood Pressure 181/99 09/11/16 09:20 O2 Sat by Pulse Oximetry (%) 94 L 09/10/16 21:00 Constitutional: Yes: No Distress Eyes: Yes: Conjunctiva Clear HENT: Yes: Atraumatic Neck: Yes: Supple Cardiovascular: Yes: Regular Rate and Rhythm Respiratory: Yes: CTA Bilaterally Gastrointestinal: Yes: Soft. No: Distention, Tenderness Musculoskeletal: No: Joint Stiffness, Joint Swelling Extremities: No: Cold, Cool Edema: No Peripheral Pulses WNL: Yes Integumentary: No: Rash, Venous Stasis Changes Neurological: Yes: WNL, Alert, Oriented ...Motor Strength: WNL Psychiatric: Yes: WNL, Alert, Oriented Labs: CBC, BMP 09/11/16 07:00 09/11/16 07:00 INR, PTT INR 1.05 (0.82-1.09) 08/29/16 15:55 - ....Imaging Other: Report Reviewed Assessment/Plan ASHD PVD smoker, h/o foot osteomyelitis DM, CRF ARF on CRF better creat R foot cellulitis and suspected osteomyelitis IV ATB per ID s/p toe amputation per vascular sx; doing well postop PT rehab, further atb per ID; wound care per surgery falls PFX DVT pfx continue meds, d/w pt
--- NOTE | 2016-09-11 17:31 | PN ---
Progress Note, Physician Chief Complaint: Not in distress History of Present Illness: Patient was seen and examined. Awake and alert. Chart was reviewed Denies chest pain, SOB or palpitation 2nd toe amputation - Current Medication List Current Medications: Active Medications Acetaminophen (Tylenol -) 325 mg PO BID PRN PRN Reason: PAIN Last Admin: 09/09/16 21:27 Dose: 325 mg Acetaminophen (Tylenol -) 650 mg PO Q6HPO [facility] Last Admin: 09/11/16 14:27 Dose: 650 mg Alprazolam (Xanax -) 0.25 mg PO Q12H PRN PRN Reason: ANXIETY Last Admin: 09/10/16 19:50 Dose: 0.25 mg Amitriptyline HCl (Elavil -) 50 mg PO HS [facility] Last Admin: 09/10/16 21:41 Dose: 50 mg Ascorbic Acid (Vitamin C -) 500 mg PO DAILY [facility] Last Admin: 09/11/16 10:58 Dose: 500 mg Aspirin (Ecotrin -) 81 mg PO DAILY [facility] Atorvastatin Calcium (Lipitor -) 10 mg PO HS [facility] Last Admin: 09/10/16 21:40 Dose: 10 mg Bacitracin (Bacitracin -) 1 applic TP DAILY [facility] Last Admin: 09/11/16 10:59 Dose: Not Given Docusate Sodium (Colace -) 100 mg PO DAILY [facility] Last Admin: 09/11/16 10:59 Dose: 100 mg Ferrous Sulfate (Feosol -) 325 mg PO BID [facility] Last Admin: 09/11/16 10:59 Dose: 325 mg Glipizide (Glucotrol Xl -) 2.5 mg PO ACBK [facility] Last Admin: 09/11/16 06:36 Dose: 2.5 mg Heparin Sodium (Porcine) (Heparin -) 5,000 unit SQ BID [facility] IV Flush (Picc Line Flush) 8 ml IVPUSH PRN PRN PRN Reason: Protocol Daptomycin 240 mg/ Sodium (Chloride) 50 mls @ 50 mls/hr IVPB Q48H [facility] Last Admin: 09/11/16 11:00 Dose: 50 mls/hr Insulin Aspart (Novolog Vial Sliding Scale -) 1 vial SQ ACHS [facility] PRN Reason: Protocol Last Admin: 09/11/16 16:21 Dose: Not Given Isosorbide Mononitrate (Imdur -) 90 mg PO DAILY [facility] Lactobacillus Acidophilus (Bacid -) 1 tab PO BID [facility] Last Admin: 09/11/16 10:58 Dose: 1 tab Metoprolol Tartrate (Lopressor -) 100 mg PO BID [facility] Last Admin: 09/11/16 11:00 Dose: 100 mg Nifedipine (Procardia Xl -) 60 mg PO BID [facility] Last Admin: 09/11/16 10:58 Dose: 60 mg Ondansetron HCl (Zofran -) 4 mg PO Q8H PRN PRN Reason: NAUSEA Oxycodone HCl (Roxicodone -) 5 mg PO Q6H PRN PRN Reason: PAIN Last Admin: 09/10/16 11:52 Dose: 5 mg Ranitidine HCl (Zantac -) 150 mg PO DAILY [facility] Last Admin: 09/11/16 10:58 Dose: 150 mg Sodium Bicarbonate (Sodium Bicarbonate -) 650 mg PO BID [facility] Last Admin: 09/11/16 10:58 Dose: 650 mg - Objective Vital Signs: Vital Signs Temperature 98.8 F 09/11/16 14:53 Pulse Rate 70 09/11/16 13:08 Respiratory Rate 09/11/16 13:08 Blood Pressure 151/73 09/11/16 13:08 O2 Sat by Pulse Oximetry (%) 98 09/11/16 09:00 Neck: Yes: Supple Cardiovascular: Yes: Regular Rate and Rhythm, S1, S2 Respiratory: Yes: CTA Bilaterally Gastrointestinal: Yes: Normal Bowel Sounds, Soft. No: Tenderness Extremities: Yes: Amputation Edema: No Labs: CBC, BMP 09/11/16 07:00 09/11/16 07:00 Problem List - Problems (1) COPD (chronic obstructive pulmonary disease) Code(s): J44.9 - CHRONIC OBSTRUCTIVE PULMONARY DISEASE, UNSPECIFIED (2) Osteomyelitis Code(s): M86.9 - OSTEOMYELITIS, UNSPECIFIED Qualifiers: Osteomyelitis location: foot Laterality: right Chronicity: unspecified Qualified Code(s): M86.9 - Osteomyelitis, unspecified (3) Amybn-yn-tpioaep kidney injury Code(s): N17.9 - ACUTE KIDNEY FAILURE, UNSPECIFIED N18.9 - CHRONIC KIDNEY DISEASE, UNSPECIFIED (4) Amputated toe Code(s): Z89.429 - ACQUIRED ABSENCE OF OTHER TOE(S), UNSPECIFIED SIDE Qualifiers: Laterality: right Qualified Code(s): Z89.421 - Acquired absence of other right toe(s) (5) Anxiety Code(s): F41.9 - ANXIETY DISORDER, UNSPECIFIED (6) Diabetes Code(s): E11.9 - TYPE 2 DIABETES MELLITUS WITHOUT COMPLICATIONS Qualifiers: Diabetes mellitus type: type 2 Diabetes mellitus complication status: with skin complications Diabetes mellitus complication detail: with foot ulcer (7) HTN (hypertension) Code(s): I10 - ESSENTIAL (PRIMARY) HYPERTENSION Qualifiers: Hypertension type: essential hypertension Qualified Code(s): I10 - Essential (primary) hypertension (8) PAD (peripheral artery disease) Code(s): I73.9 - PERIPHERAL VASCULAR DISEASE, UNSPECIFIED (9) S/P femoropopliteal bypass surgery Code(s): Z95.828 - PRESENCE OF OTHER VASCULAR IMPLANTS AND GRAFTS (10) CAD (coronary artery disease) Code(s): I25.10 - ATHSCL HEART DISEASE OF [place] CORONARY ARTERY W/O ANG PCTRS Qualifiers: Coronary Disease-Associated Artery/Lesion type: [place] artery [place] vs. transplanted heart: [place] heart Associated angina: without angina Qualified Code(s): I25.10 - Atherosclerotic heart disease of [place] coronary artery without angina pectoris Assessment/Plan 1. Status post 2nd toe amputation for osteomyelitis/cellulitis 2. History of acute hypercapneic respiratory failure post ERCP related to anesthesia 3. CAD angina pectoris, abnormal MPI 4. HTN 5. DM 6. Hypercholesterolemia 7. COPD 8. Acute on CKD improved 9. Anemia 10. History of PAD post right fem-pop bypass history of right toe osteomyelitis post amputation PLAN: 1. Continue Lopressor 100 mg BID and Procardia XL 60 mg BID and resume Ramipril once renal function stabilizes 2. Continue Lipitor 10 mg QHS, Lasix 20 mg QD and Imdur 30 mg QD. Ecotrin 81 mg QD resumed 3. Antibiotics coverage 4. Wound care Joseph Abbott MD
[2016-09-11] MEDS: ALPRAZolam 0.25 MG TABLET PO PRN (18:07)
[2016-09-11] MEDS: AMITRIPTYLINE HCL 25 MG TABLET (FP) PO SCH (21:36)
[2016-09-11] MEDS: HEPARIN NA (PORCINE) 5,000 UNITS/ML 1ML VIAL SQ SCH (21:36)
[2016-09-11] MEDS: ATORVASTATIN CA 10 MG TABLET (FP) PO SCH (21:37)
[2016-09-12] MEDS: ACETAMINOPHEN 325 MG TABLET (FP) PO SCH ×4 (02:24→17:20)
[2016-09-12] MEDS: INSULIN SLIDING SCALE (NOVOLOG) 1 VIAL SQ SCH ×4 (06:23→21:59)
[2016-09-12] MEDS: glipiZIDE-XL 2.5 MG TAB.ER.24 PO SCH (06:24)
[2016-09-12 08:09] LABS: BASOPHIL 1.3 % (0-2.0); EOSINOPHIL 7.4 % (0-4.5); MCH 30.2 pg (25.7-33.7); MCHC 33.9 g/dl (32.0-36.0); MEAN CELL VOLUME 89.1 fl (80-96); MEAN PLT VOLUME 7.5 fl (7.5-11.1); NEUTROPHILS 53.1 % (42.8-82.8); PLATELET COUNT 347 K/MM3 (134-434); RDW 12.8 % (11.6-15.6); WHITE BLOOD COUNT 8.7 K/mm3 (4.0-10.0)
[2016-09-12 09:00] LABS: CALCIUM 7.8 mg/dL (8.5-10.1); CREATININE 2.1 mg/dL (0.55-1.02)
[2016-09-12] MEDS: DOCUSATE SODIUM 100 MG CAPSULE (FP) PO SCH ×2 (10:00→11:20)
--- NOTE | 2016-09-12 10:20 | PN ---
Progress Note, Physician Chief Complaint: Not in distress History of Present Illness: Patient was seen and examined. Awake and alert. Chart was reviewed Denies chest pain, SOB or palpitation 2nd toe amputation - hemodynamically stable - Current Medication List Current Medications: Active Medications Acetaminophen (Tylenol -) 325 mg PO BID PRN PRN Reason: PAIN Last Admin: 09/09/16 21:27 Dose: 325 mg Acetaminophen (Tylenol -) 650 mg PO Q6HPO [facility] Last Admin: 09/12/16 06:10 Dose: Not Given Alprazolam (Xanax -) 0.25 mg PO Q12H PRN PRN Reason: ANXIETY Last Admin: 09/11/16 18:07 Dose: 0.25 mg Amitriptyline HCl (Elavil -) 50 mg PO HS [facility] Last Admin: 09/11/16 21:36 Dose: 50 mg Ascorbic Acid (Vitamin C -) 500 mg PO DAILY [facility] Last Admin: 09/11/16 10:58 Dose: 500 mg Aspirin (Ecotrin -) 81 mg PO DAILY [facility] Atorvastatin Calcium (Lipitor -) 10 mg PO HS [facility] Last Admin: 09/11/16 21:37 Dose: 10 mg Bacitracin (Bacitracin -) 1 applic TP DAILY [facility] Last Admin: 09/11/16 10:59 Dose: Not Given Docusate Sodium (Colace -) 100 mg PO DAILY [facility] Last Admin: 09/11/16 10:59 Dose: 100 mg Ferrous Sulfate (Feosol -) 325 mg PO BID [facility] Last Admin: 09/11/16 21:36 Dose: 325 mg Glipizide (Glucotrol Xl -) 2.5 mg PO ACBK [facility] Last Admin: 09/12/16 06:24 Dose: 2.5 mg Heparin Sodium (Porcine) (Heparin -) 5,000 unit SQ BID [facility] Last Admin: 09/11/16 21:36 Dose: 5,000 unit IV Flush (Picc Line Flush) 8 ml IVPUSH PRN PRN PRN Reason: Protocol Daptomycin 240 mg/ Sodium (Chloride) 50 mls @ 50 mls/hr IVPB Q48H [facility] Last Admin: 09/11/16 11:00 Dose: 50 mls/hr Insulin Aspart (Novolog Vial Sliding Scale -) 1 vial SQ ACHS [facility] PRN Reason: Protocol Last Admin: 09/12/16 06:23 Dose: Not Given Isosorbide Mononitrate (Imdur -) 90 mg PO DAILY [facility] Lactobacillus Acidophilus (Bacid -) 1 tab PO BID [facility] Last Admin: 09/11/16 21:36 Dose: 1 tab Metoprolol Tartrate (Lopressor -) 100 mg PO BID [facility] Last Admin: 09/11/16 21:37 Dose: 100 mg Nifedipine (Procardia Xl -) 60 mg PO BID [facility] Last Admin: 09/11/16 21:37 Dose: 60 mg Ondansetron HCl (Zofran -) 4 mg PO Q8H PRN PRN Reason: NAUSEA Oxycodone HCl (Roxicodone -) 5 mg PO Q6H PRN PRN Reason: PAIN Last Admin: 09/10/16 11:52 Dose: 5 mg Ranitidine HCl (Zantac -) 150 mg PO DAILY [facility] Last Admin: 09/11/16 10:58 Dose: 150 mg Sodium Bicarbonate (Sodium Bicarbonate -) 650 mg PO BID [facility] Last Admin: 09/11/16 21:37 Dose: 650 mg - Objective Vital Signs: Vital Signs Temperature 98.4 F 09/12/16 09:24 Pulse Rate 74 09/12/16 09:24 Respiratory Rate 20 09/12/16 09:24 Blood Pressure 171/70 09/12/16 09:24 O2 Sat by Pulse Oximetry (%) 95 09/11/16 21:00 Neck: Yes: Supple Cardiovascular: Yes: Regular Rate and Rhythm, S1, S2 Respiratory: Yes: CTA Bilaterally Gastrointestinal: Yes: Normal Bowel Sounds, Soft. No: Tenderness Extremities: Yes: Amputation Edema: No Wound/Incision: Yes: Dressing Dry and Intact Labs: CBC, BMP 09/12/16 07:20 09/12/16 07:20 Problem List - Problems (1) COPD (chronic obstructive pulmonary disease) Code(s): J44.9 - CHRONIC OBSTRUCTIVE PULMONARY DISEASE, UNSPECIFIED (2) Osteomyelitis Code(s): M86.9 - OSTEOMYELITIS, UNSPECIFIED Qualifiers: Osteomyelitis location: foot Laterality: right Chronicity: unspecified Qualified Code(s): M86.9 - Osteomyelitis, unspecified (3) Sjclv-gl-bsnsgqq kidney injury Code(s): N17.9 - ACUTE KIDNEY FAILURE, UNSPECIFIED N18.9 - CHRONIC KIDNEY DISEASE, UNSPECIFIED (4) Amputated toe Code(s): Z89.429 - ACQUIRED ABSENCE OF OTHER TOE(S), UNSPECIFIED SIDE Qualifiers: Laterality: right Qualified Code(s): Z89.421 - Acquired absence of other right toe(s) (5) Anxiety Code(s): F41.9 - ANXIETY DISORDER, UNSPECIFIED (6) Diabetes Code(s): E11.9 - TYPE 2 DIABETES MELLITUS WITHOUT COMPLICATIONS Qualifiers: Diabetes mellitus type: type 2 Diabetes mellitus complication status: with skin complications Diabetes mellitus complication detail: with foot ulcer (7) HTN (hypertension) Code(s): I10 - ESSENTIAL (PRIMARY) HYPERTENSION Qualifiers: Hypertension type: essential hypertension Qualified Code(s): I10 - Essential (primary) hypertension (8) PAD (peripheral artery disease) Code(s): I73.9 - PERIPHERAL VASCULAR DISEASE, UNSPECIFIED (9) S/P femoropopliteal bypass surgery Code(s): Z95.828 - PRESENCE OF OTHER VASCULAR IMPLANTS AND GRAFTS (10) CAD (coronary artery disease) Code(s): I25.10 - ATHSCL HEART DISEASE OF [place] CORONARY ARTERY W/O ANG PCTRS Qualifiers: Coronary Disease-Associated Artery/Lesion type: [place] artery [place] vs. transplanted heart: [place] heart Associated angina: without angina Qualified Code(s): I25.10 - Atherosclerotic heart disease of [place] coronary artery without angina pectoris Assessment/Plan 1. Status post 2nd toe amputation for osteomyelitis/cellulitis 2. History of acute hypercapneic respiratory failure post ERCP related to anesthesia 3. CAD angina pectoris, abnormal MPI 4. HTN 5. DM 6. Hypercholesterolemia 7. COPD 8. Acute on CKD improved 9. Anemia 10. History of PAD post right fem-pop bypass history of right toe osteomyelitis post amputation PLAN: 1. Continue Lopressor and Procardia XL. Resume Ramipril once renal function stabilizes 2. Continue Lipitor, Lasix and Imdur. Continue Ecotrin 3. Antibiotics coverage 4. Wound care 5. Ambulate as tolerated Joseph Abbott MD
[2016-09-12] MEDS ORDERED: PT OWN MED DRAWER 7, Y5N ONE (11:16)
[2016-09-12] MEDS: SODIUM BICARBONATE 650 MG TABLET PO SCH ×2 (11:19→21:53)
[2016-09-12] MEDS: LACTOBACILLUS ACIDOPHILUS 1 EACH TAB (FP) PO SCH ×2 (11:19→21:53)
[2016-09-12] MEDS: ASCORBIC ACID 500 MG TABLET (FP) PO SCH ×2 (11:20→12:13)
[2016-09-12] MEDS: RANITIDINE HCL 150 MG TABLET (FP) PO SCH (11:20)
[2016-09-12] MEDS: ASPIRIN COATED 81 MG TABLET.EC PO SCH (11:21)
[2016-09-12] MEDS: ISOSORBIDE MONONITRATE 30 MG TAB.SR.24H (FP) PO SCH (11:21)
[2016-09-12] MEDS: METOPROLOL TARTRATE 50 MG TABLET (FP) PO SCH ×2 (11:23→21:50)
[2016-09-12] MEDS: FERROUS SO4 325 MG TABLET (FP) PO SCH ×3 (11:23→21:53)
[2016-09-12] MEDS: NIFEdipine E.R 60 MG TABLET (UD) PO SCH ×2 (11:27→21:53)
[2016-09-12] MEDS: HEPARIN NA (PORCINE) 5,000 UNITS/ML 1ML VIAL SQ SCH (11:28)
[2016-09-12] MEDS: BACITRACIN 30 GM TUBE TOPICAL OINTMENT TP SCH (11:29)
--- NOTE | 2016-09-12 11:53 | PN ---
Progress Note (short form) - Note Progress Note: POD #3 s/p right second toe amputation (osteo) No acute events per RN notes. Doing well. Pain managed well via prn meds. Non-weight bearing RLE as instructed. Denies n/v/f/c, CP or SOB. AVSS. Afebrile. CBC, BMP // 07:20 3 // 07:20 3 PE General: NAD RLE: incision c/d/i with silk interrupted sutures. No erythema or signs of infection. Problem List - Problems (1) Osteomyelitis Assessment/Plan: POD #3 s/p second toe amputation of right foot Dressing changed on rounds. No need for PICC line. PO abx per ID No further surgical intervention. On behalf of Dr. Jane, thank you for the opportunity to allow us to participate in your patient's care. Code(s): M86.9 - OSTEOMYELITIS, UNSPECIFIED Qualifiers: Osteomyelitis location: foot Laterality: right Chronicity: unspecified Qualified Code(s): M86.9 - Osteomyelitis, unspecified
--- NOTE | 2016-09-12 13:19 | PN ---
Progress Note, Physician Chief Complaint: Patient seen in her bed. Says she is waiting for the vascular surgeon to evaluate her. No urinary complaints. Good urine output. Patient knows her history wel. Has an underlying CKD, with the Serum Creatinine close to 1.9. Off IV fluids now. Oral intake good. - Current Medication List Current Medications: Active Medications Acetaminophen (Tylenol -) 325 mg PO BID PRN PRN Reason: PAIN Last Admin: 09/09/16 21:27 Dose: 325 mg Acetaminophen (Tylenol -) 650 mg PO Q6HPO [facility] Last Admin: 09/12/16 12:16 Dose: Not Given Alprazolam (Xanax -) 0.25 mg PO Q12H PRN PRN Reason: ANXIETY Last Admin: 09/11/16 18:07 Dose: 0.25 mg Amitriptyline HCl (Elavil -) 50 mg PO HS [facility] Last Admin: 09/11/16 21:36 Dose: 50 mg Ascorbic Acid (Vitamin C -) 500 mg PO DAILY [facility] Last Admin: 09/12/16 12:13 Dose: Not Given Aspirin (Ecotrin -) 81 mg PO DAILY [facility] Last Admin: 09/12/16 11:21 Dose: 81 mg Atorvastatin Calcium (Lipitor -) 10 mg PO HS [facility] Last Admin: 09/11/16 21:37 Dose: 10 mg Bacitracin (Bacitracin -) 1 applic TP DAILY [facility] Last Admin: 09/12/16 11:29 Dose: Not Given Docusate Sodium (Colace -) 100 mg PO DAILY [facility] Last Admin: 09/12/16 11:20 Dose: 100 mg Ferrous Sulfate (Feosol -) 325 mg PO BID [facility] Last Admin: 09/12/16 12:13 Dose: Not Given Glipizide (Glucotrol Xl -) 2.5 mg PO ACBK [facility] Last Admin: 09/12/16 06:24 Dose: 2.5 mg Heparin Sodium (Porcine) (Heparin -) 5,000 unit SQ BID [facility] Last Admin: 09/12/16 11:28 Dose: 5,000 unit IV Flush (Picc Line Flush) 8 ml IVPUSH PRN PRN PRN Reason: Protocol Daptomycin 240 mg/ Sodium (Chloride) 50 mls @ 50 mls/hr IVPB Q48H [facility] Last Admin: 09/11/16 11:00 Dose: 50 mls/hr Insulin Aspart (Novolog Vial Sliding Scale -) 1 vial SQ ACHS [facility] PRN Reason: Protocol Last Admin: 09/12/16 12:16 Dose: Not Given Isosorbide Mononitrate (Imdur -) 90 mg PO DAILY [facility] Last Admin: 09/12/16 11:21 Dose: 90 mg Lactobacillus Acidophilus (Bacid -) 1 tab PO BID [facility] Last Admin: 09/12/16 11:19 Dose: 1 tab Metoprolol Tartrate (Lopressor -) 100 mg PO BID [facility] Last Admin: 09/12/16 11:23 Dose: 100 mg Nifedipine (Procardia Xl -) 60 mg PO BID [facility] Last Admin: 09/12/16 11:27 Dose: 60 mg Ondansetron HCl (Zofran -) 4 mg PO Q8H PRN PRN Reason: NAUSEA Oxycodone HCl (Roxicodone -) 5 mg PO Q6H PRN PRN Reason: PAIN Last Admin: 09/10/16 11:52 Dose: 5 mg Ranitidine HCl (Zantac -) 150 mg PO DAILY [facility] Last Admin: 09/12/16 11:20 Dose: 150 mg Sodium Bicarbonate (Sodium Bicarbonate -) 650 mg PO BID [facility] Last Admin: 09/12/16 11:19 Dose: 650 mg - Objective Vital Signs: Vital Signs Temperature 98.4 F 09/12/16 09:24 Pulse Rate 74 09/12/16 09:24 Respiratory Rate 20 09/12/16 09:24 Blood Pressure 171/70 09/12/16 09:24 O2 Sat by Pulse Oximetry (%) 95 09/11/16 21:00 Constitutional: Yes: No Distress, Calm, Thin Eyes: Yes: Conjunctiva Clear HENT: Yes: Atraumatic Neck: Yes: Trachea Midline Cardiovascular: Yes: S1, S2 Respiratory: Yes: WNL, CTA Bilaterally Gastrointestinal: Yes: Normal Bowel Sounds, Soft Genitourinary: No: CVA Tenderness - Right, Hematuria, Incontinence Extremities: Yes: Amputation, Delayed Capillary Refill Neurological: Yes: Alert, Oriented Labs: CBC, BMP 09/12/16 07:20 09/12/16 07:20 INR, PTT INR 1.05 (0.82-1.09) 08/29/16 15:55 Problem List - Problems (1) CAD (coronary artery disease) Code(s): I25.10 - ATHSCL HEART DISEASE OF [place] CORONARY ARTERY W/O ANG PCTRS Qualifiers: Coronary Disease-Associated Artery/Lesion type: [place] artery [place] vs. transplanted heart: [place] heart Associated angina: without angina Qualified Code(s): I25.10 - Atherosclerotic heart disease of [place] coronary artery without angina pectoris (2) COPD (chronic obstructive pulmonary disease) Code(s): J44.9 - CHRONIC OBSTRUCTIVE PULMONARY DISEASE, UNSPECIFIED (3) Cellulitis of foot, right Code(s): L03.115 - CELLULITIS OF RIGHT LOWER LIMB (4) Cellulitis of left foot Code(s): L03.116 - CELLULITIS OF LEFT LOWER LIMB (5) Cellulitis of right foot due to methicillin-resistant Staphylococcus aureus Code(s): L03.115 - CELLULITIS OF RIGHT LOWER LIMB B95.62 - METHICILLIN RESIS STAPH INFCT CAUSING DISEASES CLASSD [id number] (6) Xkxgz-ht-bzjtony kidney injury Code(s): N17.9 - ACUTE KIDNEY FAILURE, UNSPECIFIED N18.9 - CHRONIC KIDNEY DISEASE, UNSPECIFIED (7) Amputated toe Code(s): Z89.429 - ACQUIRED ABSENCE OF OTHER TOE(S), UNSPECIFIED SIDE Qualifiers: Laterality: right Qualified Code(s): Z89.421 - Acquired absence of other right toe(s) (8) Anemia Code(s): D64.9 - ANEMIA, UNSPECIFIED Qualifiers: Anemia type: iron deficiency (9) Cellulitis Code(s): L03.90 - CELLULITIS, UNSPECIFIED (10) Chronic renal disease Code(s): N18.9 - CHRONIC KIDNEY DISEASE, UNSPECIFIED (11) Diabetic foot infection Code(s): E11.69 - TYPE 2 DIABETES MELLITUS WITH OTHER SPECIFIED COMPLICATION L08.9 - LOCAL INFECTION OF THE SKIN AND SUBCUTANEOUS TISSUE, UNSP (12) HTN (hypertension) Code(s): I10 - ESSENTIAL (PRIMARY) HYPERTENSION Qualifiers: Hypertension type: essential hypertension Qualified Code(s): I10 - Essential (primary) hypertension (13) Osteomyelitis of ankle and foot Code(s): M86.9 - OSTEOMYELITIS, UNSPECIFIED (14) PAD (peripheral artery disease) Code(s): I73.9 - PERIPHERAL VASCULAR DISEASE, UNSPECIFIED (15) Uncontrolled hypertension Code(s): I10 - ESSENTIAL (PRIMARY) HYPERTENSION Assessment/Plan [place] with Chronic Kidney disease, with Non oliguric AGUSTÍN. Serum creatinine tends to stabilize. Awaiting further management with regards to the weight bearing on the foot. Patient will require outpatient renal follow up in the office, up on discharge. Cristela Canales MD
--- NOTE | 2016-09-12 15:08 | PN ---
Progress Note, Physician History of Present Illness: Post op toe amputation No c/o toe pain No fever / chills - Current Medication List Current Medications: Active Medications Acetaminophen (Tylenol -) 325 mg PO BID PRN PRN Reason: PAIN Last Admin: 09/09/16 21:27 Dose: 325 mg Acetaminophen (Tylenol -) 650 mg PO Q6HPO [facility] Last Admin: 09/12/16 12:16 Dose: Not Given Alprazolam (Xanax -) 0.25 mg PO Q12H PRN PRN Reason: ANXIETY Last Admin: 09/11/16 18:07 Dose: 0.25 mg Amitriptyline HCl (Elavil -) 50 mg PO HS [facility] Last Admin: 09/11/16 21:36 Dose: 50 mg Ascorbic Acid (Vitamin C -) 500 mg PO DAILY [facility] Last Admin: 09/12/16 12:13 Dose: Not Given Aspirin (Ecotrin -) 81 mg PO DAILY [facility] Last Admin: 09/12/16 11:21 Dose: 81 mg Atorvastatin Calcium (Lipitor -) 10 mg PO [facility] Last Admin: 09/11/16 21:37 Dose: 10 mg Bacitracin (Bacitracin -) 1 applic TP DAILY [facility] Last Admin: 09/12/16 11:29 Dose: Not Given Docusate Sodium (Colace -) 100 mg PO DAILY [facility] Last Admin: 09/12/16 11:20 Dose: 100 mg Ferrous Sulfate (Feosol -) 325 mg PO BID [facility] Last Admin: 09/12/16 12:13 Dose: Not Given Glipizide (Glucotrol Xl -) 2.5 mg PO ACBK [facility] Last Admin: 09/12/16 06:24 Dose: 2.5 mg Heparin Sodium (Porcine) (Heparin -) 5,000 unit SQ BID [facility] Last Admin: 09/12/16 11:28 Dose: 5,000 unit IV Flush (Picc Line Flush) 8 ml IVPUSH PRN PRN PRN Reason: Protocol Daptomycin 240 mg/ Sodium (Chloride) 50 mls @ 50 mls/hr IVPB Q48H [facility] Last Admin: 09/11/16 11:00 Dose: 50 mls/hr Insulin Aspart (Novolog Vial Sliding Scale -) 1 vial SQ ACHS [facility] PRN Reason: Protocol Last Admin: 09/12/16 12:16 Dose: Not Given Isosorbide Mononitrate (Imdur -) 90 mg PO DAILY [facility] Last Admin: 09/12/16 11:21 Dose: 90 mg Lactobacillus Acidophilus (Bacid -) 1 tab PO BID [facility] Last Admin: 09/12/16 11:19 Dose: 1 tab Metoprolol Tartrate (Lopressor -) 100 mg PO BID [facility] Last Admin: 09/12/16 11:23 Dose: 100 mg Nifedipine (Procardia Xl -) 60 mg PO BID [facility] Last Admin: 09/12/16 11:27 Dose: 60 mg Ondansetron HCl (Zofran -) 4 mg PO Q8H PRN PRN Reason: NAUSEA Oxycodone HCl (Roxicodone -) 5 mg PO Q6H PRN PRN Reason: PAIN Last Admin: 09/10/16 11:52 Dose: 5 mg Ranitidine HCl (Zantac -) 150 mg PO DAILY [facility] Last Admin: 09/12/16 11:20 Dose: 150 mg Sodium Bicarbonate (Sodium Bicarbonate -) 650 mg PO BID [facility] Last Admin: 09/12/16 11:19 Dose: 650 mg - Objective Vital Signs: Vital Signs Temperature 98.4 F 09/12/16 09:24 Pulse Rate 73 09/12/16 10:17 Respiratory Rate 20 09/12/16 09:24 Blood Pressure 171/70 09/12/16 09:24 O2 Sat by Pulse Oximetry (%) 96 09/12/16 10:17 Constitutional: Yes: No Distress Eyes: Yes: Conjunctiva Clear Cardiovascular: Yes: Regular Rate and Rhythm, S1, S2 Respiratory: Yes: CTA Bilaterally Gastrointestinal: Yes: Normal Bowel Sounds, Soft. No: Tenderness Extremities: Yes: Other (surgical wound with sutures intact slight erythema at wound site no drainage) Labs: CBC, BMP 09/12/16 07:20 09/12/16 07:20 INR, PTT INR 1.05 (0.82-1.09) 08/29/16 15:55 Assessment/Plan Cellulitis /osteomyelitis R 2nd toe s/p amputation DM Azotemia Antibiotic allergies Ceftaroline intolerance Await path report- if surgical margins free of infected bone will not need watermaster antibiotic course
[2016-09-12] MEDS: ALPRAZolam 0.25 MG TABLET PO PRN (15:39)
--- NOTE | 2016-09-12 20:32 | PN ---
Progress Note, Physician Chief Complaint: in bed nad afebrile, events noted; guaiac positive diarrhea; Cdiff pending - Current Medication List Current Medications: Active Medications Acetaminophen (Tylenol -) 325 mg PO BID PRN PRN Reason: PAIN Last Admin: 09/09/16 21:27 Dose: 325 mg Acetaminophen (Tylenol -) 650 mg PO Q6HPO [facility] Last Admin: 09/12/16 17:20 Dose: Not Given Alprazolam (Xanax -) 0.25 mg PO Q12H PRN PRN Reason: ANXIETY Last Admin: 09/12/16 15:39 Dose: 0.25 mg Amitriptyline HCl (Elavil -) 50 mg PO HS [facility] Last Admin: 09/11/16 21:36 Dose: 50 mg Ascorbic Acid (Vitamin C -) 500 mg PO DAILY [facility] Last Admin: 09/12/16 12:13 Dose: Not Given Aspirin (Ecotrin -) 81 mg PO DAILY [facility] Last Admin: 09/12/16 11:21 Dose: 81 mg Atorvastatin Calcium (Lipitor -) 10 mg PO HS [facility] Last Admin: 09/11/16 21:37 Dose: 10 mg Bacitracin (Bacitracin -) 1 applic TP DAILY [facility] Last Admin: 09/12/16 11:29 Dose: Not Given Cholestyramine Resin (Questran Packet -) 2 gm PO DAILY [facility] Docusate Sodium (Colace -) 100 mg PO DAILY [facility] Last Admin: 09/12/16 10:00 Dose: Not Given Ferrous Sulfate (Feosol -) 325 mg PO BID [facility] Last Admin: 09/12/16 12:13 Dose: Not Given Glipizide (Glucotrol Xl -) 2.5 mg PO ACBK [facility] Last Admin: 09/12/16 06:24 Dose: 2.5 mg Heparin Sodium (Porcine) (Heparin -) 5,000 unit SQ BID [facility] Last Admin: 09/12/16 11:28 Dose: 5,000 unit IV Flush (Picc Line Flush) 8 ml IVPUSH PRN PRN PRN Reason: Protocol Daptomycin 240 mg/ Sodium (Chloride) 50 mls @ 50 mls/hr IVPB Q48H [facility] Last Admin: 09/11/16 11:00 Dose: 50 mls/hr Insulin Aspart (Novolog Vial Sliding Scale -) 1 vial SQ ACHS [facility] PRN Reason: Protocol Last Admin: 09/12/16 17:20 Dose: Not Given Isosorbide Mononitrate (Imdur -) 90 mg PO DAILY [facility] Last Admin: 09/12/16 11:21 Dose: 90 mg Lactobacillus Acidophilus (Bacid -) 1 tab PO BID [facility] Last Admin: 09/12/16 11:19 Dose: 1 tab Metoprolol Tartrate (Lopressor -) 100 mg PO BID [facility] Last Admin: 09/12/16 11:23 Dose: 100 mg Nifedipine (Procardia Xl -) 60 mg PO BID [facility] Last Admin: 09/12/16 11:27 Dose: 60 mg Ondansetron HCl (Zofran -) 4 mg PO Q8H PRN PRN Reason: NAUSEA Oxycodone HCl (Roxicodone -) 5 mg PO Q6H PRN PRN Reason: PAIN Last Admin: 09/10/16 11:52 Dose: 5 mg Ranitidine HCl (Zantac -) 150 mg PO DAILY [facility] Last Admin: 09/12/16 11:20 Dose: 150 mg Sodium Bicarbonate (Sodium Bicarbonate -) 650 mg PO BID [facility] Last Admin: 09/12/16 11:19 Dose: 650 mg - Objective Vital Signs: Vital Signs Temperature 98.1 F 09/12/16 15:07 Pulse Rate 68 09/12/16 15:07 Respiratory Rate 20 09/12/16 15:07 Blood Pressure 180/77 09/12/16 15:07 O2 Sat by Pulse Oximetry (%) 96 09/12/16 10:17 Constitutional: Yes: No Distress Eyes: Yes: Conjunctiva Clear HENT: Yes: Atraumatic Neck: Yes: Supple Cardiovascular: Yes: Regular Rate and Rhythm Respiratory: Yes: CTA Bilaterally Gastrointestinal: Yes: Soft. No: Distention, Tenderness Genitourinary: No: CVA Tenderness - Left, CVA Tenderness - Right Musculoskeletal: No: Joint Stiffness, Joint Swelling Extremities: No: Cold, Cool Edema: No Peripheral Pulses WNL: Yes Integumentary: No: Rash, Venous Stasis Changes Neurological: Yes: WNL, Alert, Oriented ...Motor Strength: WNL Psychiatric: Yes: WNL, Alert, Oriented. No: Agitated Labs: CBC, BMP 09/12/16 07:20 09/12/16 07:20 INR, PTT INR 1.05 (0.82-1.09) 08/29/16 15:55 - ....Imaging Other: Report Reviewed Assessment/Plan ASHD PVD smoker, h/o foot osteomyelitis DM, CRF ARF on CRF better creat R foot cellulitis and suspected osteomyelitis IV ATB per ID s/p toe amputation per vascular sx; doing well postop PT rehab, further atb per ID; path pendong diarrhea, anemia, guaiac positive: GI eval wound care per surgery falls PFX DVT pfx continue meds, d/w pt
[2016-09-12] MEDS: AMITRIPTYLINE HCL 25 MG TABLET (FP) PO SCH (21:50)
[2016-09-12] MEDS: ATORVASTATIN CA 10 MG TABLET (FP) PO SCH (21:53)
[2016-09-13] MEDS: ACETAMINOPHEN 325 MG TABLET (FP) PO SCH ×4 (00:30→18:51)
--- NOTE | 2016-09-13 05:37 | CONS ---
DATE OF CONSULTATION: DATE OF DICTATION: 09/12/2016 REQUESTING PHYSICIAN: Angela Barahona MD HISTORY OF PRESENT ILLNESS: The patient is a 81-year-old female admitted through [facility] Emergency Room on August 29 for evaluation of bilateral foot wounds. On September 09, she underwent right 2nd toe amputation secondary to right 2nd toe osteomyelitis. She has been on antibiotics. I am asked to evaluate for guaiac positive stool. She has had endoscopic evaluation in the recent past. On January 29, 2014, she underwent EGD that revealed hiatal hernia, gastritis, duodenitis, and esophagitis. She underwent upper endoscopy with biopsy January 28, 2014, performed by myself that revealed a 2-cm hiatal hernia, patchy erythema in the body of the stomach, nonerosive duodenitis in the bulb of the duodenum, and otherwise was unrevealing. Pathology from that procedure revealed duodenal mucosa with chronic inflammation, Brunners gland, hyperplasia, and focal gastric metaplasia, and she was noted to be H. pylori negative. She then underwent colonoscopy January 29, 2014, performed by Dr. Sylvia De Paz revealing diminutive polyp in the rectum and sigmoid colon, sessile polyp in the cecum, sessile polyp in the distal transverse colon and mild diverticulosis in the sigmoid colon. Pathology revealed the rectal polyps to be hyperplastic, descending colon polyps to be colon mucosa with no pathological changes. The cecal polyp was noted to be a tubular adenoma, and the tubular adenoma of the transverse colon as well. She also was noted to have suspected biliary sepsis in September of 2015. At that time, she refused ERCP and cholecystectomy and stated that she wants it to . She declined interventions at that time. She then was admitted in March of 2016 with suspicion for biliary sepsis. She had an MRI revealing an upper normal limit CVD. She ultimately underwent ERCP March 25, 2016, revealing a distal common bile duct stone that was extracted, and she was reintubated post ERCP due to respiratory distress. She was eventually extubated in the ICU and underwent laparoscopic cholecystectomy April 06, performed by Dr. Holland Trejo. She denies any rectal bleeding, but states that since her cholecystectomy, she has been having diarrhea and has been living on Imodium. She has not called my office, has not followed up in the office regarding this or previous recommendations of capsule endoscopy at the time of her previous GI evaluations when there was concern given guaiac positive stool and anemia. She self-admittedly states that she has not sought followup. PAST MEDICAL HISTORY: Includes hypertension, hyperlipidemia, history of heart murmur, peripheral arterial disease, asthma, COPD, cholelithiasis, history of osteomyelitis in the past, diabetes mellitus. PAST SURGICAL HISTORY: Includes right femoral popliteal bypass, laparoscopic cholecystectomy, ERCP, and now amputation of right 2nd toe secondary to osteomyelitis. SOCIAL HISTORY: She denies any alcohol use. She is a smoker. She lives independently. 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 CURRENT MEDICATIONS: Include Lipitor, Bacid, Elavil, vitamin C, Procardia, Ramipril, Zofran, metoprolol, isosorbide, glipizide, Lasix, ferrous sulfate, and alprazolam. REVIEW OF SYSTEMS: She denies any chest pain or shortness of breath, dysphagia, odynophagia. She complains of diarrhea. No overt rectal bleeding. PHYSICAL EXAMINATION: General: The patient is found lying in her bed. She appears to be in no apparent distress. HEENT: Sclerae anicteric. Neck: Supple. Heart: Examination of the heart revealed a regular rate and rhythm. She did have a systolic murmur heard best at the right sternal border. Lungs: Examination of the lungs revealed mild occasional expiratory wheezing bilaterally. Abdomen: Examination of the abdomen revealed healed trocar scars. Abdomen was otherwise nondistended. Normoactive bowel sounds. No hepatosplenomegaly was appreciated. No masses were palpated. No hernias were detected. No tenderness was elicited. Extremities: Examination of the extremities revealed a dressing on her right foot. Digital Rectal: No external lesions, no masses. She had brown stool in the rectal vault, which was guaiac negative. LABORATORY EVALUATION: White blood count 8.7, hemoglobin 8.5, hematocrit 25, platelets of 347. INR 1.05. Sodium 137, potassium 4.3, chloride 114, bicarbonate 19, BUN of 25, creatinine 2.1, glucose of 108. Urinalysis 3+ protein, 3+ glucose. IMPRESSION: This is a 81-year-old female admitted with prolonged hospitalization secondary to osteomyelitis, currently receiving antibiotics. She is noted to be guaiac positive on a specimen sent to the lab. However, guaiac negative on my exam. She also complains of chronic diarrhea, for which she has never sought evaluation. I did explain the importance of outpatient followup to the patient. She was concerned because she had issues regarding Dr. De Paz and her previous ERCP as she felt that her diarrhea and her issues during her last admission stemmed from that procedure. I did explain to her that the ERCP did lead to the extraction of a stone, which was likely contributing to her biliary sepsis. I did also explain that if she does have issues with Dr. De Paz, that potentially he could cover her at any given occasion if I was not available to her when she was admitted as an inpatient. She did state that she would be okay with her seeing her in that situation. I did advise her that if she felt more comfortable, another GI group could be contacted to continue her further management if she did not want to go down that route. Check stool for Clostridium difficile, ovum parasite, and culture. Try cholestyramine. I questioned whether her diarrhea is related to her gallbladder being removed, and she could follow up as an outpatient for further evaluation and for further evaluation of her guaiac positive stool. I think you for this consultative opportunity. ALEJO GUADALUPE DO [id number]
[2016-09-13] MEDS ORDERED: PT OWN MED DRAWER 7, Y5N ONE ×2 (05:52→13:16)
[2016-09-13] MEDS: glipiZIDE-XL 2.5 MG TAB.ER.24 PO SCH (06:00)
[2016-09-13] MEDS: INSULIN SLIDING SCALE (NOVOLOG) 1 VIAL SQ SCH ×4 (06:04→21:46)
[2016-09-13 08:08] LABS: CREATININE 2.3 mg/dL (0.55-1.02); GLUCOSE,RANDOM 151 mg/dL (74-106)
[2016-09-13 08:09] LABS: ALBUMIN 2.1 g/dl (3.4-5.0); ALK PHOS 57 U/L (45-117); ANION GAP 7 (8-16); CALCIUM 7.9 mg/dL (8.5-10.1); CO2 21 mmol/L (21-32); SGOT/AST 9 U/L (15-37); SGPT/ALT 11 U/L (12-78); TOT PROT 5.4 g/dl (6.4-8.2)
[2016-09-13 08:28] LABS: BILIRUBIN,TOTAL < 0.1 mg/dL (0.2-1.0)
--- NOTE | 2016-09-13 10:17 | CONS ---
GI CONSULTATION DATE OF CONSULTATION: 09/12/2016 REQUESTING PHYSICIAN: Angela Barahona MD HISTORY OF PRESENT ILLNESS: The patient is a 81-year-old female admitted through [facility] emergency room on August 29 for evaluation of bilateral foot wounds. On September 09, she underwent right second toe amputation secondary to right second toe osteomyelitis. She has been on antibiotics. I am asked to evaluate for guaiac-positive stool. She has had an endoscopic evaluation in the recent past, August. She underwent upper endoscopy with biopsy January 28, 2014 performed by myself that revealed a 2-cm hiatal hernia. Patchy erythema in the body of the stomach, non-erosive duodenitis in the bulb of the duodenum, and otherwise was unrevealing. Pathology from that procedure revealed duodenal mucosa with chronic inflammation, Xander's gland hyperplasia and focal gastric metaplasia, and she was noticed to be H. pylori negative. She then underwent a colonoscopy January performed by Dr. Sylvia De Paz, revealing a diminutive polyp in the rectum and sigmoid colon, sessile polyp in the cecum, sessile polyp in the distal transverse colon and mild diverticulosis in the sigmoid colon. Pathology revealed the rectal polyps to be hyperplastic, descending colon polyps to be colon mucosa with no pathological changes. The fecal polyp was noted to be a tubular adenoma and the tubular adenoma of the transverse colon as well. She also was suspected to have biliary sepsis in September of 2015, and she declined interventions at that time. She then was admitted in March of 2016 with suspicion for biliary sepsis. She had an MRI revealing an upper normal limit CBD, ultimately underwent ERCP March 252015, revealing a distal common bile duct stone that was extracted, and she was re-intubated post ERCP due to respiratory distress. She was eventually extubated in the ICU and underwent laparoscopic cholecystectomy March 28, [address] Holland Trejo. She denies any rectal bleeding but states that since her cholecystectomy, she has been having diarrhea and has been living on Imodium. She has not called my office or has been followed up in the office regarding this or previous recommendations of capsule endoscopy at the time of her previous GI evaluations when there was concern given her guaiac-positive stool and anemia. She self-admittedly states that she has not sought followup. PAST MEDICAL HISTORY: 1. Hypertension 2. Hyperlipidemia 3. History of heart murmur 4. Peripheral arterial disease 5. Asthma 6. COPD 7. Cholelithiasis 8. Diabetes mellitus 9. Osteomyelitis in the past PAST SURGICAL HISTORY: 1. Right femoral popliteal bypass 2. Laparoscopic cholecystectomy 3. ERCP 4. Amputation of right second toe secondary to osteomyelitis SOCIAL HISTORY: Denies any alcohol use. She is a smoker. She lives independently. 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 CURRENT MEDICATIONS: 1. Lipitor 2. Bacid 3. Elavil 4. Vitamin C 5. Procardia 6. Ramipril 7. Zofran 8. Metoprolol 9. Isosorbide 10. Glipizide 11. Lasix 12. Ferrous sulfate 13. Alprazolam REVIEW OF SYSTEMS: She denies any chest pain or shortness of breath, dysphagia or odynophagia. Complains of diarrhea. No overt rectal bleeding. PHYSICAL EXAM: General: Patient is examined in a bed. She appears to be in no apparent distress. HEENT: Sclera are anicteric. Neck was supple. Heart: Examination of the heart revealed a regular rate and rhythm. She did have a systolic murmur heard best at the right sternal border. Lungs: Lungs reveal occasional expiratory wheezing bilaterally. Abdomen: Examination of the abdomen revealed healed trocar scars. Abdomen is otherwise nondistended. Normal active bowel sounds. No hepatosplenomegaly is appreciated. No mass is palpated. No hernia is detected. No tenderness is elicited. Extremities: Examination of the extremities revealed a dressing on her right foot. Digital rectal exam: No external lesions, no masses. She had brown stool in the rectal vault, which was guaiac negative. LABORATORY EVALUATION: White blood count 8.7, hemoglobin 8.5, hematocrit 25. Platelets of 347. INR 1.05. Sodium 137, potassium 4.3, chloride 114, bicarbonate 19. BUN of 25, creatinine 2.1. Glucose of 108. Urinalysis: 3+ protein, 3+ glucose. IMPRESSION: 81-year-old female admitted with prolonged hospitalization secondary to osteomyelitis, currently receiving antibiotics. She is noted to be guaiac positive on a specimen sent from the to the lab; however, guaiac negative on my exam. She has complaints of chronic diarrhea, which she has never sought evaluation of. RECOMMENDATIONS: 1. I did explain the importance of outpatient followup to the patient. She was concerned because she had issues regarding Dr. De Paz and her previous ERCP. She felt that her diarrhea and her issues during her last admission stemmed from that procedure. I did explain to her that the ERCP did lead to the extraction of a stone, which is likely contributing to her biliary sepsis. I did also explain that if she does have issues with Dr. De Paz that potentially he could cover her at any given occasion if I was not available to see her when she was admitted as an inpatient. She did state that she would be okay with him seeing her in that situation. I did advise her that if she felt more comfortable, another GI group could be contacted to continue her further management. She did not want to go down that route. 2. Check stool for C. diff, ova and parasite and culture. 3. Try cholestyramine. I question if her diarrhea is related to her gallbladder being removed. Hence, she could follow up as an outpatient for further evaluation and further evaluation of her guaiac positive stool. I thank you for this consultation. ALEJO GUADALUPE DO [id number]
[2016-09-13] MEDS: DOCUSATE SODIUM 100 MG CAPSULE (FP) PO SCH (10:18)
[2016-09-13] MEDS: BACITRACIN 30 GM TUBE TOPICAL OINTMENT TP SCH (10:18)
[2016-09-13] MEDS: SODIUM CHLORIDE IVPB SCH ×2 (10:21→11:52)
[2016-09-13] MEDS: DAPTOMYCIN IVPB SCH ×2 (10:21→11:52)
[2016-09-13] MEDS: ASCORBIC ACID 500 MG TABLET (FP) PO SCH (10:24)
[2016-09-13] MEDS: FERROUS SO4 325 MG TABLET (FP) PO SCH ×3 (10:24→21:47)
[2016-09-13] MEDS: NIFEdipine E.R 60 MG TABLET (UD) PO SCH ×2 (10:24→21:46)
[2016-09-13] MEDS: PANTOPRAZOLE 20 MG TABLET (FP) PO SCH (10:24)
[2016-09-13] MEDS: RANITIDINE HCL 150 MG TABLET (FP) PO SCH (10:24)
[2016-09-13] MEDS: SODIUM BICARBONATE 650 MG TABLET PO SCH ×2 (10:24→21:47)
[2016-09-13] MEDS: ASPIRIN COATED 81 MG TABLET.EC PO SCH (10:24)
[2016-09-13] MEDS: LACTOBACILLUS ACIDOPHILUS 1 EACH TAB (FP) PO SCH ×2 (10:24→21:45)
[2016-09-13] MEDS: ISOSORBIDE MONONITRATE 30 MG TAB.SR.24H (FP) PO SCH (10:24)
[2016-09-13] MEDS: METOPROLOL TARTRATE 50 MG TABLET (FP) PO SCH ×2 (10:24→21:46)
--- NOTE | 2016-09-13 11:21 | PN ---
Progress Note (short form) - Note Progress Note: Chief Complaint: Events noted, notes reviewed, denies any chest pain or dyspnea History of Present Illness: Seen and examined. Events noted, notes reviewed, denies any chest pain or dyspnea - Current Medication List Current Medications Acetaminophen (Tylenol -) 325 mg PO BID PRN PRN Reason: PAIN Last Admin: 09/09/16 21:27 Dose: 325 mg Acetaminophen (Tylenol -) 650 mg PO Q6HPO [facility] Last Admin: 09/13/16 05:59 Dose: Not Given Alprazolam (Xanax -) 0.25 mg PO Q12H PRN PRN Reason: ANXIETY Last Admin: 09/12/16 15:39 Dose: 0.25 mg Amitriptyline HCl (Elavil -) 50 mg PO [facility] Last Admin: 09/12/16 21:50 Dose: 50 mg Ascorbic Acid (Vitamin C -) 500 mg PO DAILY [facility] Last Admin: 09/13/16 10:24 Dose: 500 mg Aspirin (Ecotrin -) 81 mg PO DAILY [facility] Last Admin: 09/13/16 10:24 Dose: 81 mg Atorvastatin Calcium (Lipitor -) 10 mg PO HS [facility] Last Admin: 09/12/16 21:53 Dose: 10 mg Bacitracin (Bacitracin -) 1 applic TP DAILY [facility] Last Admin: 09/13/16 10:18 Dose: Not Given Cholestyramine Resin (Questran Packet -) 2 gm PO DAILY@1300 [facility] Docusate Sodium (Colace -) 100 mg PO DAILY [facility] Last Admin: 09/13/16 10:18 Dose: Not Given Ferrous Sulfate (Feosol -) 325 mg PO BID [facility] Last Admin: 09/13/16 10:42 Dose: Not Given Glipizide (Glucotrol Xl -) 2.5 mg PO ACBK [facility] Last Admin: 09/13/16 06:00 Dose: 2.5 mg IV Flush (Picc Line Flush) 8 ml IVPUSH PRN PRN PRN Reason: Protocol Daptomycin 240 mg/ Sodium (Chloride) 50 mls @ 50 mls/hr IVPB Q48H [facility] Last Admin: 09/13/16 10:21 Dose: 50 mls/hr Insulin Aspart (Novolog Vial Sliding Scale -) 1 vial SQ ACHS [facility] PRN Reason: Protocol Last Admin: 09/13/16 06:04 Dose: Not Given Isosorbide Mononitrate (Imdur -) 90 mg PO DAILY [facility] Last Admin: 09/13/16 10:24 Dose: 90 mg Lactobacillus Acidophilus (Bacid -) 1 tab PO BID [facility] Last Admin: 09/13/16 10:24 Dose: 1 tab Metoprolol Tartrate (Lopressor -) 100 mg PO BID [facility] Last Admin: 09/13/16 10:24 Dose: 100 mg Nifedipine (Procardia Xl -) 60 mg PO BID [facility] Last Admin: 09/13/16 10:24 Dose: 60 mg Ondansetron HCl (Zofran -) 4 mg PO Q8H PRN PRN Reason: NAUSEA Oxycodone HCl (Roxicodone -) 5 mg PO Q6H PRN PRN Reason: PAIN Last Admin: 09/10/16 11:52 Dose: 5 mg Pantoprazole Sodium (Protonix -) 20 mg PO DAILY [facility] Last Admin: 09/13/16 10:24 Dose: 20 mg Ranitidine HCl (Zantac -) 150 mg PO DAILY [facility] Last Admin: 09/13/16 10:24 Dose: 150 mg Sodium Bicarbonate (Sodium Bicarbonate -) 650 mg PO BID [facility] Last Admin: 09/13/16 10:24 Dose: 650 mg - Objective Vital Signs: Last Vital Signs Temp Pulse Resp BP Pulse Ox 99.2 F 66 20 159/62 98 09/13/16 10:00 09/13/16 10:00 09/13/16 10:00 09/13/16 10:00 09/12/16 21:00 Neck: Supple Negative JVD No Bruit Cardiovascular: S1 S2 Regular Rate and Rhythm Respiratory: Clear to A&P Bilaterally Gastrointestinal: Soft Benign Normal Bowel Sounds Extremities: No Edema dressing Noted Labs: CBC, BMP 09/12/16 07:20 09/13/16 06:30 Assessment/Plan ASSESSMENT: 1. Post toe amputation for osteomyelitis/cellulitis 2. History of acute hypercapneic respiratory failure post ERCP related to anesthesia 3. CAD abnormal MPI angina pectoris 4. HTN 5. DM 6. Hypercholesterolemia 7. History of PAD post right fem-pop bypass 8. COPD 9. Acute on CKD improved 10. Anemia PLAN: 1. Continue Lopressor 2. Continue Procardia XL 3. Resume Ramipril +/- Lasix once renal function stabilizes 4. Continue Imdur 5. Continue ASA 6. Continue Lipitor 7. Antibiotics coverage as per the primary team Mary Sewell MD
[2016-09-13 11:27] LABS: BASOPHIL 1.2 % (0-2.0); EOSINOPHIL 6.4 % (0-4.5); MCH 30.6 pg (25.7-33.7); MCHC 33.8 g/dl (32.0-36.0); MEAN CELL VOLUME 90.6 fl (80-96); MEAN PLT VOLUME 7.9 fl (7.5-11.1); NEUTROPHILS 56.1 % (42.8-82.8); PLATELET COUNT 356 K/MM3 (134-434); RDW 12.6 % (11.6-15.6); WHITE BLOOD COUNT 9.1 K/mm3 (4.0-10.0)
--- NOTE | 2016-09-13 12:24 | PN ---
Progress Note, Physician Chief Complaint: Patient seen in her bed. Feels better awaiting the special shoes to put the foot down No urinary complaints. Denies much pain Eating well - Current Medication List Current Medications: Active Medications Acetaminophen (Tylenol -) 325 mg PO BID PRN PRN Reason: PAIN Last Admin: 09/09/16 21:27 Dose: 325 mg Acetaminophen (Tylenol -) 650 mg PO Q6HPO [facility] Last Admin: 09/13/16 05:59 Dose: Not Given Alprazolam (Xanax -) 0.25 mg PO Q12H PRN PRN Reason: ANXIETY Last Admin: 09/12/16 15:39 Dose: 0.25 mg Amitriptyline HCl (Elavil -) 50 mg PO HS [facility] Last Admin: 09/12/16 21:50 Dose: 50 mg Ascorbic Acid (Vitamin C -) 500 mg PO DAILY [facility] Last Admin: 09/13/16 10:24 Dose: 500 mg Aspirin (Ecotrin -) 81 mg PO DAILY [facility] Last Admin: 09/13/16 10:24 Dose: 81 mg Atorvastatin Calcium (Lipitor -) 10 mg PO [facility] Last Admin: 09/12/16 21:53 Dose: 10 mg Bacitracin (Bacitracin -) 1 applic TP DAILY [facility] Last Admin: 09/13/16 10:18 Dose: Not Given Cholestyramine Resin (Questran Packet -) 2 gm PO DAILY@1300 [facility] Docusate Sodium (Colace -) 100 mg PO DAILY [facility] Last Admin: 09/13/16 10:18 Dose: Not Given Ferrous Sulfate (Feosol -) 325 mg PO BID [facility] Last Admin: 09/13/16 10:42 Dose: Not Given Glipizide (Glucotrol Xl -) 2.5 mg PO ACBK [facility] Last Admin: 09/13/16 06:00 Dose: 2.5 mg IV Flush (Picc Line Flush) 8 ml IVPUSH PRN PRN PRN Reason: Protocol Daptomycin 240 mg/ Sodium (Chloride) 50 mls @ 50 mls/hr IVPB Q48H [facility] Last Admin: 09/13/16 11:52 Dose: 50 mls/hr Insulin Aspart (Novolog Vial Sliding Scale -) 1 vial SQ ACHS [facility] PRN Reason: Protocol Last Admin: 09/13/16 06:04 Dose: Not Given Isosorbide Mononitrate (Imdur -) 90 mg PO DAILY [facility] Last Admin: 09/13/16 10:24 Dose: 90 mg Lactobacillus Acidophilus (Bacid -) 1 tab PO BID [facility] Last Admin: 09/13/16 10:24 Dose: 1 tab Metoprolol Tartrate (Lopressor -) 100 mg PO BID [facility] Last Admin: 09/13/16 10:24 Dose: 100 mg Nifedipine (Procardia Xl -) 60 mg PO BID [facility] Last Admin: 09/13/16 10:24 Dose: 60 mg Ondansetron HCl (Zofran -) 4 mg PO Q8H PRN PRN Reason: NAUSEA Oxycodone HCl (Roxicodone -) 5 mg PO Q6H PRN PRN Reason: PAIN Last Admin: 09/10/16 11:52 Dose: 5 mg Pantoprazole Sodium (Protonix -) 20 mg PO DAILY [facility] Last Admin: 09/13/16 10:24 Dose: 20 mg Ranitidine HCl (Zantac -) 150 mg PO DAILY [facility] Last Admin: 09/13/16 10:24 Dose: 150 mg Sodium Bicarbonate (Sodium Bicarbonate -) 650 mg PO BID [facility] Last Admin: 09/13/16 10:24 Dose: 650 mg - Objective Vital Signs: Vital Signs Temperature 99.2 F 09/13/16 10:00 Pulse Rate 66 09/13/16 10:00 Respiratory Rate 20 09/13/16 10:00 Blood Pressure 159/62 09/13/16 10:00 O2 Sat by Pulse Oximetry (%) 98 09/12/16 21:00 Constitutional: Yes: No Distress, Calm Eyes: Yes: Conjunctiva Clear HENT: Yes: Atraumatic, Normocephalic Neck: Yes: Trachea Midline Cardiovascular: Yes: Regular Rate and Rhythm, S1, S2 Respiratory: Yes: CTA Bilaterally Gastrointestinal: Yes: Normal Bowel Sounds, Soft Genitourinary: Yes: WNL Labs: CBC, BMP 09/13/16 06:00 09/13/16 06:30 INR, PTT INR 1.05 (0.82-1.09) 08/29/16 15:55 Problem List - Problems (1) CAD (coronary artery disease) Code(s): I25.10 - ATHSCL HEART DISEASE OF [place] CORONARY ARTERY W/O ANG PCTRS Qualifiers: Coronary Disease-Associated Artery/Lesion type: [place] artery [place] vs. transplanted heart: [place] heart Associated angina: without angina Qualified Code(s): I25.10 - Atherosclerotic heart disease of [place] coronary artery without angina pectoris (2) COPD (chronic obstructive pulmonary disease) Code(s): J44.9 - CHRONIC OBSTRUCTIVE PULMONARY DISEASE, UNSPECIFIED (3) Cellulitis of foot, right Code(s): L03.115 - CELLULITIS OF RIGHT LOWER LIMB (4) Cellulitis of left foot Code(s): L03.116 - CELLULITIS OF LEFT LOWER LIMB (5) Cellulitis of right foot due to methicillin-resistant Staphylococcus aureus Code(s): L03.115 - CELLULITIS OF RIGHT LOWER LIMB B95.62 - METHICILLIN RESIS STAPH INFCT CAUSING DISEASES CLASSD ELSWHR (6) Zeasg-hu-wakxtps kidney injury Code(s): N17.9 - ACUTE KIDNEY FAILURE, UNSPECIFIED N18.9 - CHRONIC KIDNEY DISEASE, UNSPECIFIED (7) Amputated toe Code(s): Z89.429 - ACQUIRED ABSENCE OF OTHER TOE(S), UNSPECIFIED SIDE Qualifiers: Laterality: right Qualified Code(s): Z89.421 - Acquired absence of other right toe(s) (8) Anemia Code(s): D64.9 - ANEMIA, UNSPECIFIED Qualifiers: Anemia type: iron deficiency (9) Cellulitis Code(s): L03.90 - CELLULITIS, UNSPECIFIED (10) Chronic renal disease Code(s): N18.9 - CHRONIC KIDNEY DISEASE, UNSPECIFIED (11) Diabetic foot infection Code(s): E11.69 - TYPE 2 DIABETES MELLITUS WITH OTHER SPECIFIED COMPLICATION L08.9 - LOCAL INFECTION OF THE SKIN AND SUBCUTANEOUS TISSUE, UNSP (12) HTN (hypertension) Code(s): I10 - ESSENTIAL (PRIMARY) HYPERTENSION Qualifiers: Hypertension type: essential hypertension Qualified Code(s): I10 - Essential (primary) hypertension (13) Osteomyelitis of ankle and foot Code(s): M86.9 - OSTEOMYELITIS, UNSPECIFIED (14) PAD (peripheral artery disease) Code(s): I73.9 - PERIPHERAL VASCULAR DISEASE, UNSPECIFIED (15) Uncontrolled hypertension Code(s): I10 - ESSENTIAL (PRIMARY) HYPERTENSION Assessment/Plan [place] with Chronic Kidney disease, Advanced Will need outpatient f/u when discharged She will need tube rebuilder in the future Will keep her off the ACEI? ARBs fr now. Will restart them if the Renal functions improve Thank you. Will follow with you Cristela Canales MD
[2016-09-13] MEDS: ALPRAZolam 0.25 MG TABLET PO PRN (13:21)
[2016-09-13] MEDS: CHOLESTYRAMINE/SUCROSE 4 GM PACKET PO SCH ×2 (13:21→14:34)
--- NOTE | 2016-09-13 13:27 | PN ---
Progress Note (short form) - Note Progress Note: Vascular Surgery Dressing changed. S/P amputation. Incision clean and intact. Cleared for DC from vascular standpoint. Come to wound care clinic on a monday. [phone] Bob Jane DO
--- NOTE | 2016-09-13 14:00 | PATH ---
Surgical Pathology Report Patient Name: CONG DOMINGUEZ [facility]. Rec. #: [id number] /Age/Gender: 1935 (Age: 81) / F Account: [id number] Location: [address] [place] [address]/[facility] Taken: 09/09/2016 Received: 09/09/2016 Reported: 09/13/2016 Physicians: Bob Jane Specimen(s) Received AMPUTATION RIGHT 2ND TOE Clinical History Osteomyelitis/abscess of foot Final Diagnosis SECOND TOE, RIGHT, AMPUTATION: ULCERATED AND NECROTIC SKIN WITH PSEUDOEPITHELIOMATOUS HYPERPLASIA, UNDERLYING SOFT TISSUE IS NECROTIZING AND CHRONIC INFLAMMATION AND FOCI OF GANGRENOUS NECROSIS. UNDERLYING BONE WITH ACUTE OSTEOMYELITIS. ACUTE AND CHRONIC INFLAMMATION EXTENDS TO THE SKIN AND SOFT TISSUE RESECTION MARGIN. BONE AT THE RESECTION MARGIN APPEARS VIABLE. SEPARATE FRAGMENTS OF BONE AND CARTILAGE APPEARS VIABLE. Electronically Signed Quinn Wayne M.D. Gross Description Received in formalin, labeled "right second toe" is a 4.0 x 2.5 x 2.0 cm toe amputation specimen. The epidermal surface displays a 1.2 x 0.7 cm castro, ulcerated lesion on the dorsal surface. The lesion extends to and appears to involve the underlying bone. Separately received within the same container is a 2.5 x 1.2 x 0.3 cm aggregate of castro bone fragments. Real Estate Rep sections are submitted in 4 cassettes as follows: 1-lesion with underlying bone, following decalcification; 2-skin and soft tissue margin; 3-bone margin, following decalcification; 4-separately received bone fragments, following decalcification. 09/12/2016 saudi09/12/2016
--- NOTE | 2016-09-13 15:29 | PN ---
Progress Note, Physician History of Present Illness: No c/o foot pain No fever / chills Path report shows viable bone at resection margin - Current Medication List Current Medications: Active Medications Acetaminophen (Tylenol -) 325 mg PO BID PRN PRN Reason: PAIN Last Admin: 09/09/16 21:27 Dose: 325 mg Acetaminophen (Tylenol -) 650 mg PO Q6HPO [facility] Last Admin: 09/13/16 13:18 Dose: Not Given Alprazolam (Xanax -) 0.25 mg PO Q12H PRN PRN Reason: ANXIETY Last Admin: 09/13/16 13:21 Dose: 0.25 mg Amitriptyline HCl (Elavil -) 50 mg PO HS [facility] Last Admin: 09/12/16 21:50 Dose: 50 mg Ascorbic Acid (Vitamin C -) 500 mg PO DAILY [facility] Last Admin: 09/13/16 10:24 Dose: 500 mg Aspirin (Ecotrin -) 81 mg PO DAILY [facility] Last Admin: 09/13/16 10:24 Dose: 81 mg Atorvastatin Calcium (Lipitor -) 10 mg PO [facility] Last Admin: 09/12/16 21:53 Dose: 10 mg Bacitracin (Bacitracin -) 1 applic TP DAILY [facility] Last Admin: 09/13/16 10:18 Dose: Not Given Cholestyramine Resin (Questran Packet -) 2 gm PO DAILY@1300 [facility] Last Admin: 09/13/16 14:34 Dose: Not Given Docusate Sodium (Colace -) 100 mg PO DAILY [facility] Last Admin: 09/13/16 10:18 Dose: Not Given Ferrous Sulfate (Feosol -) 325 mg PO BID [facility] Last Admin: 09/13/16 10:42 Dose: Not Given Glipizide (Glucotrol Xl -) 2.5 mg PO ACBK [facility] Last Admin: 09/13/16 06:00 Dose: 2.5 mg IV Flush (Picc Line Flush) 8 ml IVPUSH PRN PRN PRN Reason: Protocol Daptomycin 240 mg/ Sodium (Chloride) 50 mls @ 50 mls/hr IVPB Q48H [facility] Last Admin: 09/13/16 11:52 Dose: 50 mls/hr Insulin Aspart (Novolog Vial Sliding Scale -) 1 vial SQ ACHS [facility] PRN Reason: Protocol Last Admin: 09/13/16 13:18 Dose: Not Given Isosorbide Mononitrate (Imdur -) 90 mg PO DAILY [facility] Last Admin: 09/13/16 10:24 Dose: 90 mg Lactobacillus Acidophilus (Bacid -) 1 tab PO BID [facility] Last Admin: 09/13/16 10:24 Dose: 1 tab Metoprolol Tartrate (Lopressor -) 100 mg PO BID [facility] Last Admin: 09/13/16 10:24 Dose: 100 mg Nifedipine (Procardia Xl -) 60 mg PO BID [facility] Last Admin: 09/13/16 10:24 Dose: 60 mg Ondansetron HCl (Zofran -) 4 mg PO Q8H PRN PRN Reason: NAUSEA Oxycodone HCl (Roxicodone -) 5 mg PO Q6H PRN PRN Reason: PAIN Last Admin: 09/10/16 11:52 Dose: 5 mg Pantoprazole Sodium (Protonix -) 20 mg PO DAILY [facility] Last Admin: 09/13/16 10:24 Dose: 20 mg Ranitidine HCl (Zantac -) 150 mg PO DAILY [facility] Last Admin: 09/13/16 10:24 Dose: 150 mg Sodium Bicarbonate (Sodium Bicarbonate -) 650 mg PO BID [facility] Last Admin: 09/13/16 10:24 Dose: 650 mg - Objective Vital Signs: Vital Signs Temperature 97.9 F 09/13/16 14:00 Pulse Rate 63 09/13/16 14:00 Respiratory Rate 19 09/13/16 14:00 Blood Pressure 166/68 09/13/16 14:00 O2 Sat by Pulse Oximetry (%) 96 09/13/16 09:00 Constitutional: Yes: No Distress Eyes: Yes: Conjunctiva Clear Cardiovascular: Yes: Regular Rate and Rhythm, S1, S2 Respiratory: Yes: CTA Bilaterally Gastrointestinal: Yes: Normal Bowel Sounds, Soft. No: Tenderness Extremities: Yes: Other (R foot amputation site with sutures intact no wound drainage) Labs: CBC, BMP 09/13/16 06:00 09/13/16 06:30 INR, PTT INR 1.05 (0.82-1.09) 08/29/16 15:55 Assessment/Plan Cellulitis /osteomyelitis R 2nd toe s/p amputation DM Azotemia Antibiotic allergies Ceftaroline intolerance surgical margins free of infected bone will not need residential antibiotic course D/C antibiotics, observe No objection to discharge
--- NOTE | 2016-09-13 18:02 | PN ---
Progress Note, Physician Chief Complaint: in bed NAD afebrile no new c.o; seen by GI for TYRA, outpt f/u; pt refused to take iron po; advised to take it; has some diarrhea; further ATB per ID; seen by dr Jane; can start stepping on the foot. - Current Medication List Current Medications: Active Medications Acetaminophen (Tylenol -) 325 mg PO BID PRN PRN Reason: PAIN Last Admin: 09/09/16 21:27 Dose: 325 mg Acetaminophen (Tylenol -) 650 mg PO Q6HPO [facility] Last Admin: 09/13/16 13:18 Dose: Not Given Alprazolam (Xanax -) 0.25 mg PO Q12H PRN PRN Reason: ANXIETY Last Admin: 09/13/16 13:21 Dose: 0.25 mg Amitriptyline HCl (Elavil -) 50 mg PO [facility] Last Admin: 09/12/16 21:50 Dose: 50 mg Ascorbic Acid (Vitamin C -) 500 mg PO DAILY [facility] Last Admin: 09/13/16 10:24 Dose: 500 mg Aspirin (Ecotrin -) 81 mg PO DAILY [facility] Last Admin: 09/13/16 10:24 Dose: 81 mg Atorvastatin Calcium (Lipitor -) 10 mg PO [facility] Last Admin: 09/12/16 21:53 Dose: 10 mg Bacitracin (Bacitracin -) 1 applic TP DAILY [facility] Last Admin: 09/13/16 10:18 Dose: Not Given Cholestyramine Resin (Questran Packet -) 2 gm PO DAILY@1300 [facility] Last Admin: 09/13/16 14:34 Dose: Not Given Docusate Sodium (Colace -) 100 mg PO DAILY [facility] Last Admin: 09/13/16 10:18 Dose: Not Given Ferrous Sulfate (Feosol -) 325 mg PO BID [facility] Last Admin: 09/13/16 10:42 Dose: Not Given Glipizide (Glucotrol Xl -) 2.5 mg PO ACBK [facility] Last Admin: 09/13/16 06:00 Dose: 2.5 mg IV Flush (Picc Line Flush) 8 ml IVPUSH PRN PRN PRN Reason: Protocol Daptomycin 240 mg/ Sodium (Chloride) 50 mls @ 50 mls/hr IVPB Q48H [facility] Last Admin: 09/13/16 11:52 Dose: 50 mls/hr Insulin Aspart (Novolog Vial Sliding Scale -) 1 vial SQ ACHS [facility] PRN Reason: Protocol Last Admin: 09/13/16 13:18 Dose: Not Given Isosorbide Mononitrate (Imdur -) 90 mg PO DAILY [facility] Last Admin: 09/13/16 10:24 Dose: 90 mg Lactobacillus Acidophilus (Bacid -) 1 tab PO BID [facility] Last Admin: 09/13/16 10:24 Dose: 1 tab Metoprolol Tartrate (Lopressor -) 100 mg PO BID [facility] Last Admin: 09/13/16 10:24 Dose: 100 mg Nifedipine (Procardia Xl -) 60 mg PO BID [facility] Last Admin: 09/13/16 10:24 Dose: 60 mg Ondansetron HCl (Zofran -) 4 mg PO Q8H PRN PRN Reason: NAUSEA Oxycodone HCl (Roxicodone -) 5 mg PO Q6H PRN PRN Reason: PAIN Last Admin: 09/10/16 11:52 Dose: 5 mg Pantoprazole Sodium (Protonix -) 20 mg PO DAILY [facility] Last Admin: 09/13/16 10:24 Dose: 20 mg Ranitidine HCl (Zantac -) 150 mg PO DAILY [facility] Last Admin: 09/13/16 10:24 Dose: 150 mg Sodium Bicarbonate (Sodium Bicarbonate -) 650 mg PO BID [facility] Last Admin: 09/13/16 10:24 Dose: 650 mg - Objective Vital Signs: Vital Signs Temperature 97.9 F 09/13/16 14:00 Pulse Rate 63 09/13/16 14:00 Respiratory Rate 19 09/13/16 14:00 Blood Pressure 166/68 09/13/16 14:00 O2 Sat by Pulse Oximetry (%) 96 09/13/16 09:00 Constitutional: Yes: No Distress, Calm Eyes: Yes: Conjunctiva Clear HENT: Yes: Atraumatic Neck: Yes: Supple Cardiovascular: Yes: Regular Rate and Rhythm Respiratory: Yes: CTA Bilaterally Gastrointestinal: Yes: Soft. No: Distention, Tenderness Genitourinary: No: CVA Tenderness - Left, CVA Tenderness - Right Musculoskeletal: No: Joint Stiffness, Joint Swelling Extremities: No: Cold, Cool Edema: No Peripheral Pulses WNL: Yes Integumentary: No: Rash, Venous Stasis Changes Neurological: Yes: WNL, Alert, Oriented ...Motor Strength: WNL Psychiatric: Yes: WNL, Alert, Oriented. 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
[2016-09-13] MEDS: AMITRIPTYLINE HCL 25 MG TABLET (FP) PO SCH (21:45)
[2016-09-13] MEDS: ATORVASTATIN CA 10 MG TABLET (FP) PO SCH (21:46)
[2016-09-14] MEDS: ACETAMINOPHEN 325 MG TABLET (FP) PO SCH ×5 (00:37→18:14)
[2016-09-14] MEDS: INSULIN SLIDING SCALE (NOVOLOG) 1 VIAL SQ SCH ×4 (06:24→21:14)
[2016-09-14] MEDS: glipiZIDE-XL 2.5 MG TAB.ER.24 PO SCH (06:46)
[2016-09-14 08:44] LABS: ALBUMIN 2.3 g/dl (3.4-5.0); BILIRUBIN,TOTAL 0.2 mg/dL (0.2-1.0); CALCIUM 7.5 mg/dL (8.5-10.1); CREATININE 2.8 mg/dL (0.55-1.02); TOT PROT 5.4 g/dl (6.4-8.2)
[2016-09-14 09:33] LABS: BASOPHIL 1.1 % (0-2.0); EOSINOPHIL 5.9 % (0-4.5); MCH 30.5 pg (25.7-33.7); MCHC 33.9 g/dl (32.0-36.0); MEAN CELL VOLUME 89.7 fl (80-96); MEAN PLT VOLUME 7.8 fl (7.5-11.1); NEUTROPHILS 61.1 % (42.8-82.8); PLATELET COUNT 338 K/MM3 (134-434); RDW 12.6 % (11.6-15.6); WHITE BLOOD COUNT 11.1 K/mm3 (4.0-10.0)
[2016-09-14] MEDS ORDERED: PT OWN MED DRAWER 7, Y5N ONE (09:55)
[2016-09-14] MEDS: LACTOBACILLUS ACIDOPHILUS 1 EACH TAB (FP) PO SCH ×2 (10:02→21:13)
[2016-09-14] MEDS: ASPIRIN COATED 81 MG TABLET.EC PO SCH (10:02)
[2016-09-14] MEDS: METOPROLOL TARTRATE 50 MG TABLET (FP) PO SCH ×2 (10:02→21:13)
[2016-09-14] MEDS: ISOSORBIDE MONONITRATE 30 MG TAB.SR.24H (FP) PO SCH (10:02)
[2016-09-14] MEDS: PANTOPRAZOLE 20 MG TABLET (FP) PO SCH (10:02)
[2016-09-14] MEDS: DOCUSATE SODIUM 100 MG CAPSULE (FP) PO SCH (10:02)
[2016-09-14] MEDS: RANITIDINE HCL 150 MG TABLET (FP) PO SCH (10:03)
[2016-09-14] MEDS: ASCORBIC ACID 500 MG TABLET (FP) PO SCH ×2 (10:03→10:09)
[2016-09-14] MEDS: SODIUM BICARBONATE 650 MG TABLET PO SCH ×2 (10:03→21:14)
[2016-09-14] MEDS: NIFEdipine E.R 60 MG TABLET (UD) PO SCH ×2 (10:04→21:14)
[2016-09-14] MEDS: FERROUS SO4 325 MG TABLET (FP) PO SCH ×2 (10:04→21:13)
--- NOTE | 2016-09-14 11:52 | PN ---
Progress Note, Physician History of Present Illness: Feels well, denies chest pain or dyspnea. Ordered for 1 U pRBC. - Current Medication List Current Medications: Active Medications Acetaminophen (Tylenol -) 325 mg PO BID PRN PRN Reason: PAIN Last Admin: 09/09/16 21:27 Dose: 325 mg Acetaminophen (Tylenol -) 650 mg PO Q6HPO [facility] Last Admin: 09/14/16 06:24 Dose: Not Given Alprazolam (Xanax -) 0.25 mg PO Q12H PRN PRN Reason: ANXIETY Last Admin: 09/13/16 13:21 Dose: 0.25 mg Amitriptyline HCl (Elavil -) 50 mg PO HS [facility] Last Admin: 09/13/16 21:45 Dose: 50 mg Ascorbic Acid (Vitamin C -) 500 mg PO DAILY [facility] Last Admin: 09/14/16 10:09 Dose: Not Given Aspirin (Ecotrin -) 81 mg PO DAILY [facility] Last Admin: 09/14/16 10:02 Dose: 81 mg Atorvastatin Calcium (Lipitor -) 10 mg PO HS [facility] Last Admin: 09/13/16 21:46 Dose: 10 mg Bacitracin (Bacitracin -) 1 applic TP DAILY [facility] Last Admin: 09/13/16 10:18 Dose: Not Given Cholestyramine Resin (Questran Packet -) 2 gm PO DAILY@1300 [facility] Last Admin: 09/13/16 14:34 Dose: Not Given Docusate Sodium (Colace -) 100 mg PO DAILY [facility] Last Admin: 09/14/16 10:02 Dose: 100 mg Ferrous Sulfate (Feosol -) 325 mg PO BID [facility] Last Admin: 09/14/16 10:04 Dose: Not Given Glipizide (Glucotrol Xl -) 2.5 mg PO ACBK [facility] Last Admin: 09/14/16 06:46 Dose: 2.5 mg IV Flush (Picc Line Flush) 8 ml IVPUSH PRN PRN PRN Reason: Protocol Daptomycin 240 mg/ Sodium (Chloride) 50 mls @ 50 mls/hr IVPB Q48H [facility] Last Admin: 09/13/16 11:52 Dose: 50 mls/hr Insulin Aspart (Novolog Vial Sliding Scale -) 1 vial SQ ACHS [facility] PRN Reason: Protocol Last Admin: 09/14/16 06:24 Dose: Not Given Isosorbide Mononitrate (Imdur -) 90 mg PO DAILY [facility] Last Admin: 09/14/16 10:02 Dose: 90 mg Lactobacillus Acidophilus (Bacid -) 1 tab PO BID [facility] Last Admin: 09/14/16 10:02 Dose: 1 tab Metoprolol Tartrate (Lopressor -) 100 mg PO BID [facility] Last Admin: 09/14/16 10:02 Dose: 100 mg Nifedipine (Procardia Xl -) 60 mg PO BID [facility] Last Admin: 09/14/16 10:04 Dose: 60 mg Ondansetron HCl (Zofran -) 4 mg PO Q8H PRN PRN Reason: NAUSEA Oxycodone HCl (Roxicodone -) 5 mg PO Q6H PRN PRN Reason: PAIN Last Admin: 09/10/16 11:52 Dose: 5 mg Pantoprazole Sodium (Protonix -) 20 mg PO DAILY [facility] Last Admin: 09/14/16 10:02 Dose: 20 mg Ranitidine HCl (Zantac -) 150 mg PO DAILY [facility] Last Admin: 09/14/16 10:03 Dose: 150 mg Sodium Bicarbonate (Sodium Bicarbonate -) 650 mg PO BID [facility] Last Admin: 09/14/16 10:03 Dose: 650 mg - Objective Vital Signs: Vital Signs Temperature 98.5 F 09/14/16 10:00 Pulse Rate 76 09/14/16 10:00 Respiratory Rate 20 09/14/16 10:00 Blood Pressure 128/80 09/14/16 10:00 O2 Sat by Pulse Oximetry (%) 96 09/13/16 21:00 Constitutional: Yes: No Distress, Calm, Thin Neck: Yes: Supple Cardiovascular: Yes: Regular Rate and Rhythm Respiratory: Yes: Regular, Diminished Gastrointestinal: Yes: Normal Bowel Sounds, Soft Extremities: Yes: Amputation Edema: No Labs: CBC, BMP 09/14/16 06:00 09/14/16 07:00 INR, PTT INR 1.05 (0.82-1.09) 08/29/16 15:55 Problem List - Problems (1) Cellulitis of foot, right Code(s): L03.115 - CELLULITIS OF RIGHT LOWER LIMB (2) Dvvey-hi-xrwsoge kidney injury Code(s): N17.9 - ACUTE KIDNEY FAILURE, UNSPECIFIED N18.9 - CHRONIC KIDNEY DISEASE, UNSPECIFIED (3) HTN (hypertension) Code(s): I10 - ESSENTIAL (PRIMARY) HYPERTENSION Qualifiers: Hypertension type: essential hypertension Qualified Code(s): I10 - Essential (primary) hypertension (4) Hyperlipidemia associated with type 2 diabetes mellitus Code(s): E11.69 - TYPE 2 DIABETES MELLITUS WITH OTHER SPECIFIED COMPLICATION E78.5 - HYPERLIPIDEMIA, UNSPECIFIED (5) PAD (peripheral artery disease) Code(s): I73.9 - PERIPHERAL VASCULAR DISEASE, UNSPECIFIED (6) Pre-operative cardiovascular examination, myocardial ischemia Code(s): I25.5 - ISCHEMIC CARDIOMYOPATHY Z01.810 - ENCOUNTER FOR PREPROCEDURAL CARDIOVASCULAR EXAMINATION (7) S/P femoropopliteal bypass surgery Code(s): Z95.828 - PRESENCE OF OTHER VASCULAR IMPLANTS AND GRAFTS (8) Anemia Code(s): D64.9 - ANEMIA, UNSPECIFIED Qualifiers: Anemia type: iron deficiency (9) COPD (chronic obstructive pulmonary disease) Code(s): J44.9 - CHRONIC OBSTRUCTIVE PULMONARY DISEASE, UNSPECIFIED Assessment/Plan 1. Post toe amputation for osteomyelitis/cellulitis 2. History of acute hypercapneic respiratory failure post ERCP related to anesthesia 3. CAD abnormal MPI angina pectoris 4. HTN 5. DM 6. Hypercholesterolemia 7. History of PAD post right fem-pop bypass 8. COPD 9. Acute on CKD with hyperkalemia 10. Anemia PLAN: 1. Continue Lopressor 100 bid 2. Continue Procardia XL 60 bid 3. Resume Ramipril +/- Lasix once renal function stabilizes 4. Continue Imdur 90 qd 5. Continue ASA 81 qd 6. Continue Lipitor 10 qhs 7. Antibiotics d/itzel per ID team 8. Oral hydration with monitor renal recovery 9. Monitor Hgb post-transfusion
--- NOTE | 2016-09-14 13:18 | PN ---
Progress Note, Physician Chief Complaint: still with diarrhea, no n/v/ abdominal pain hg 7.8 advised blood transfusion pt agreed - Current Medication List Current Medications: Active Medications Acetaminophen (Tylenol -) 325 mg PO BID PRN PRN Reason: PAIN Last Admin: 09/09/16 21:27 Dose: 325 mg Acetaminophen (Tylenol -) 650 mg PO Q6HPO [facility] Last Admin: 09/14/16 06:24 Dose: Not Given Alprazolam (Xanax -) 0.25 mg PO Q12H PRN PRN Reason: ANXIETY Last Admin: 09/13/16 13:21 Dose: 0.25 mg Amitriptyline HCl (Elavil -) 50 mg PO HS [facility] Last Admin: 09/13/16 21:45 Dose: 50 mg Ascorbic Acid (Vitamin C -) 500 mg PO DAILY [facility] Last Admin: 09/14/16 10:09 Dose: Not Given Aspirin (Ecotrin -) 81 mg PO DAILY [facility] Last Admin: 09/14/16 10:02 Dose: 81 mg Atorvastatin Calcium (Lipitor -) 10 mg PO HS [facility] Last Admin: 09/13/16 21:46 Dose: 10 mg Bacitracin (Bacitracin -) 1 applic TP DAILY [facility] Last Admin: 09/13/16 10:18 Dose: Not Given Cholestyramine Resin (Questran Packet -) 2 gm PO DAILY@1300 [facility] Last Admin: 09/13/16 14:34 Dose: Not Given Docusate Sodium (Colace -) 100 mg PO DAILY [facility] Last Admin: 09/14/16 10:02 Dose: 100 mg Ferrous Sulfate (Feosol -) 325 mg PO BID [facility] Last Admin: 09/14/16 10:04 Dose: Not Given Glipizide (Glucotrol Xl -) 2.5 mg PO ACBK [facility] Last Admin: 09/14/16 06:46 Dose: 2.5 mg IV Flush (Picc Line Flush) 8 ml IVPUSH PRN PRN PRN Reason: Protocol Daptomycin 240 mg/ Sodium (Chloride) 50 mls @ 50 mls/hr IVPB Q48H [facility] Last Admin: 09/13/16 11:52 Dose: 50 mls/hr Insulin Aspart (Novolog Vial Sliding Scale -) 1 vial SQ ACHS [facility] PRN Reason: Protocol Last Admin: 09/14/16 06:24 Dose: Not Given Isosorbide Mononitrate (Imdur -) 90 mg PO DAILY [facility] Last Admin: 09/14/16 10:02 Dose: 90 mg Lactobacillus Acidophilus (Bacid -) 1 tab PO BID [facility] Last Admin: 09/14/16 10:02 Dose: 1 tab Metoprolol Tartrate (Lopressor -) 100 mg PO BID [facility] Last Admin: 09/14/16 10:02 Dose: 100 mg Nifedipine (Procardia Xl -) 60 mg PO BID [facility] Last Admin: 09/14/16 10:04 Dose: 60 mg Ondansetron HCl (Zofran -) 4 mg PO Q8H PRN PRN Reason: NAUSEA Oxycodone HCl (Roxicodone -) 5 mg PO Q6H PRN PRN Reason: PAIN Last Admin: 09/10/16 11:52 Dose: 5 mg Pantoprazole Sodium (Protonix -) 20 mg PO DAILY [facility] Last Admin: 09/14/16 10:02 Dose: 20 mg Ranitidine HCl (Zantac -) 150 mg PO DAILY [facility] Last Admin: 09/14/16 10:03 Dose: 150 mg Sodium Bicarbonate (Sodium Bicarbonate -) 650 mg PO BID [facility] Last Admin: 09/14/16 10:03 Dose: 650 mg - Objective Vital Signs: Vital Signs Temperature 98.5 F 09/14/16 10:00 Pulse Rate 76 09/14/16 10:00 Respiratory Rate 20 09/14/16 10:00 Blood Pressure 128/80 09/14/16 10:00 O2 Sat by Pulse Oximetry (%) 96 09/13/16 21:00 Constitutional: Yes: No Distress Eyes: Yes: Conjunctiva Clear HENT: Yes: Atraumatic Neck: Yes: Supple Cardiovascular: Yes: Regular Rate and Rhythm Respiratory: Yes: CTA Bilaterally Gastrointestinal: Yes: Soft. No: Distention, Tenderness Genitourinary: No: CVA Tenderness - Left, CVA Tenderness - Right Musculoskeletal: No: Joint Stiffness, Joint Swelling Extremities: No: Cold, Cool Edema: No Peripheral Pulses WNL: Yes Integumentary: No: Rash, Venous Stasis Changes Neurological: Yes: WNL, Alert, Oriented ...Motor Strength: WNL Psychiatric: Yes: WNL, Alert, Oriented. 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
[2016-09-14] MEDS: CHOLESTYRAMINE/SUCROSE 4 GM PACKET PO SCH (13:42)
[2016-09-14] MEDS: ALPRAZolam 0.25 MG TABLET PO PRN (14:46)
--- NOTE | 2016-09-14 17:02 | PN ---
Progress Note (short form) - Note Progress Note: Renal Follow up for AGUSTÍN on CKD Pt seen and examined at the bedside reports diarrhea x 7 episodes yesterday no chest pain or sob getting IVF good urine output Vital Signs Temperature 98.3 F 09/14/16 15:36 Pulse Rate 64 09/14/16 15:36 Respiratory Rate 18 09/14/16 15:36 Blood Pressure 144/62 09/14/16 15:36 O2 Sat by Pulse Oximetry (%) 96 09/14/16 09:00 Intake & Output 09/11/16 09/12/16 09/13/16 09/14/16 23:59 23:59 23:59 23:59 Intake Total 300 1460 600 200 Output Total 250 Balance 300 1210 600 200 Gen: NAD, awake and alert CVS: RRR, No M/R Lungs: Dec BS Lung bases Abd: soft NT/ND Ext: Right foot in dressing. Minimal to trace edema in LE CBC, BMP 09/14/16 06:00 09/14/16 07:00 Current Medications Acetaminophen (Tylenol -) 325 mg PO BID PRN PRN Reason: PAIN Last Admin: 09/09/16 21:27 Dose: 325 mg Acetaminophen (Tylenol -) 650 mg PO Q6HPO [facility] Last Admin: 09/14/16 13:45 Dose: 650 mg Alprazolam (Xanax -) 0.25 mg PO Q12H PRN PRN Reason: ANXIETY Last Admin: 09/14/16 14:46 Dose: 0.25 mg Amitriptyline HCl (Elavil -) 50 mg PO HS [facility] Last Admin: 09/13/16 21:45 Dose: 50 mg Ascorbic Acid (Vitamin C -) 500 mg PO DAILY [facility] Last Admin: 09/14/16 10:09 Dose: Not Given Aspirin (Ecotrin -) 81 mg PO DAILY [facility] Last Admin: 09/14/16 10:02 Dose: 81 mg Atorvastatin Calcium (Lipitor -) 10 mg PO HS [facility] Last Admin: 09/13/16 21:46 Dose: 10 mg Bacitracin (Bacitracin -) 1 applic TP DAILY [facility] Last Admin: 09/13/16 10:18 Dose: Not Given Cholestyramine Resin (Questran Packet -) 2 gm PO DAILY@1300 [facility] Last Admin: 09/14/16 13:42 Dose: Not Given Docusate Sodium (Colace -) 100 mg PO DAILY [facility] Last Admin: 09/14/16 10:02 Dose: 100 mg Ferrous Sulfate (Feosol -) 325 mg PO BID [facility] Last Admin: 09/14/16 10:04 Dose: Not Given Glipizide (Glucotrol Xl -) 2.5 mg PO ACBK [facility] Last Admin: 09/14/16 06:46 Dose: 2.5 mg IV Flush (Picc Line Flush) 8 ml IVPUSH PRN PRN PRN Reason: Protocol Daptomycin 240 mg/ Sodium (Chloride) 50 mls @ 50 mls/hr IVPB Q48H [facility] Last Admin: 09/13/16 11:52 Dose: 50 mls/hr Insulin Aspart (Novolog Vial Sliding Scale -) 1 vial SQ ACHS [facility] PRN Reason: Protocol Last Admin: 09/14/16 14:48 Dose: Not Given Isosorbide Mononitrate (Imdur -) 90 mg PO DAILY [facility] Last Admin: 09/14/16 10:02 Dose: 90 mg Lactobacillus Acidophilus (Bacid -) 1 tab PO BID [facility] Last Admin: 09/14/16 10:02 Dose: 1 tab Metoprolol Tartrate (Lopressor -) 100 mg PO BID [facility] Last Admin: 09/14/16 10:02 Dose: 100 mg Nifedipine (Procardia Xl -) 60 mg PO BID [facility] Last Admin: 09/14/16 10:04 Dose: 60 mg Ondansetron HCl (Zofran -) 4 mg PO Q8H PRN PRN Reason: NAUSEA Oxycodone HCl (Roxicodone -) 5 mg PO Q6H PRN PRN Reason: PAIN Last Admin: 09/10/16 11:52 Dose: 5 mg Pantoprazole Sodium (Protonix -) 20 mg PO DAILY [facility] Last Admin: 09/14/16 10:02 Dose: 20 mg Ranitidine HCl (Zantac -) 150 mg PO DAILY [facility] Last Admin: 09/14/16 10:03 Dose: 150 mg Sodium Bicarbonate (Sodium Bicarbonate -) 650 mg PO BID [facility] Last Admin: 09/14/16 10:03 Dose: 650 mg A/P 81 year old woman with PMhx of CKD stage 3 (baseline Cr 1.6), Renal Artery stenosis (30% no intervention), Hypertension, DM Type 2, PVD who presented with suspected osteomylitis on b/l feet and found to have AGUSTÍN with BUN/Cr of 30/2.9. #Non-oliguirc AGUSTÍN on CKD secondary to NSAID use + JEANETTE -> renal hypoperufison/ATN renal function slighly worse today -> ? volume depletion from diarrhea getting PRBC transfusion currently Trend BUN/Cr No IVF for now oral hydration No indication for PROGRAM ADMINISTRATOR Dose all mes for Cr Cl less then 30 #Osteomylitis of LE ? need for further Abx after amputation management as per ID and Vascular Sx #Diarrhea Ceeck stool c-diff (prior C diff was negative) Quentin Goyal DO
[2016-09-14] MEDS: ATORVASTATIN CA 10 MG TABLET (FP) PO SCH (21:13)
[2016-09-14] MEDS: AMITRIPTYLINE HCL 25 MG TABLET (FP) PO SCH (21:13)
[2016-09-15] MEDS: ACETAMINOPHEN 325 MG TABLET (FP) PO SCH ×4 (02:30→19:11)
[2016-09-15] MEDS: INSULIN SLIDING SCALE (NOVOLOG) 1 VIAL SQ SCH ×4 (06:37→22:37)
[2016-09-15] MEDS: glipiZIDE-XL 2.5 MG TAB.ER.24 PO SCH (06:37)
[2016-09-15 07:44] LABS: BASOPHIL 1.1 % (0-2.0); EOSINOPHIL 7.7 % (0-4.5); MCH 30.5 pg (25.7-33.7); MCHC 34.1 g/dl (32.0-36.0); MEAN CELL VOLUME 89.5 fl (80-96); MEAN PLT VOLUME 7.9 fl (7.5-11.1); NEUTROPHILS 61.4 % (42.8-82.8); PLATELET COUNT 389 K/MM3 (134-434); RDW 13.6 % (11.6-15.6)
[2016-09-15 08:14] LABS: CALCIUM 8.4 mg/dL (8.5-10.1); CREATININE 2.6 mg/dL (0.55-1.02)
[2016-09-15] MEDS: ALPRAZolam 0.25 MG TABLET PO PRN ×2 (09:19→21:58)
[2016-09-15] MEDS: NIFEdipine E.R 60 MG TABLET (UD) PO SCH ×2 (09:20→21:50)
[2016-09-15] MEDS: LACTOBACILLUS ACIDOPHILUS 1 EACH TAB (FP) PO SCH ×2 (09:24→21:54)
[2016-09-15] MEDS: ISOSORBIDE MONONITRATE 30 MG TAB.SR.24H (FP) PO SCH (09:24)
[2016-09-15] MEDS: FERROUS SO4 325 MG TABLET (FP) PO SCH ×2 (09:25→21:54)
[2016-09-15] MEDS: DOCUSATE SODIUM 100 MG CAPSULE (FP) PO SCH (09:25)
[2016-09-15] MEDS: ASPIRIN COATED 81 MG TABLET.EC PO SCH (09:25)
[2016-09-15] MEDS: METOPROLOL TARTRATE 50 MG TABLET (FP) PO SCH ×2 (09:26→21:50)
[2016-09-15] MEDS: PANTOPRAZOLE 20 MG TABLET (FP) PO SCH (09:26)
[2016-09-15] MEDS: SODIUM BICARBONATE 650 MG TABLET PO SCH ×2 (09:26→21:55)
[2016-09-15] MEDS: ASCORBIC ACID 500 MG TABLET (FP) PO SCH (09:26)
[2016-09-15] MEDS: RANITIDINE HCL 150 MG TABLET (FP) PO SCH (09:27)
[2016-09-15] MEDS ORDERED: SODIUM POLYSTYRENE SULFONATE 15 GM/60 ML BOTTLE PO ONE (10:30)
[2016-09-15] MEDS ORDERED: SODIUM CHLORIDE 1,000 ML IV SCH (10:30)
--- NOTE | 2016-09-15 10:42 | PN ---
Progress Note, Physician Chief Complaint: no more diarrhea; afebrile; s/p 2 U PRBC Hg 12 Creat 2.6, K 5.4 has some legs edema R>L used to be on lasix at home, but held here b/o high creat; d/w renal will give IVF x 24 h and kayexalate po and f/u labs walks in hallway with walker but off sq heparin b/o guaiac + stools and drop in H&H - Current Medication List Current Medications: Active Medications Acetaminophen (Tylenol -) 325 mg PO BID PRN PRN Reason: PAIN Last Admin: 09/09/16 21:27 Dose: 325 mg Acetaminophen (Tylenol -) 650 mg PO Q6HPO [facility] Last Admin: 09/15/16 06:36 Dose: Not Given Alprazolam (Xanax -) 0.25 mg PO Q12H PRN PRN Reason: ANXIETY Last Admin: 09/15/16 09:19 Dose: 0.25 mg Amitriptyline HCl (Elavil -) 50 mg PO HS [facility] Last Admin: 09/14/16 21:13 Dose: 50 mg Ascorbic Acid (Vitamin C -) 500 mg PO DAILY [facility] Last Admin: 09/15/16 09:26 Dose: 500 mg Aspirin (Ecotrin -) 81 mg PO DAILY [facility] Last Admin: 09/15/16 09:25 Dose: 81 mg Atorvastatin Calcium (Lipitor -) 10 mg PO HS [facility] Last Admin: 09/14/16 21:13 Dose: 10 mg Bacitracin (Bacitracin -) 1 applic TP DAILY [facility] Last Admin: 09/13/16 10:18 Dose: Not Given Cholestyramine Resin (Questran Packet -) 2 gm PO DAILY@1300 [facility] Last Admin: 09/14/16 13:42 Dose: Not Given Docusate Sodium (Colace -) 100 mg PO DAILY [facility] Last Admin: 09/15/16 09:25 Dose: Not Given Ferrous Sulfate (Feosol -) 325 mg PO BID [facility] Last Admin: 09/15/16 09:25 Dose: 325 mg Glipizide (Glucotrol Xl -) 2.5 mg PO ACBK [facility] Last Admin: 09/15/16 06:37 Dose: 2.5 mg IV Flush (Picc Line Flush) 8 ml IVPUSH PRN PRN PRN Reason: Protocol Sodium Chloride (Normal Saline -) 1,000 mls @ 50 mls/hr IV ASDIR [facility] Stop: 09/16/16 10:23 Insulin Aspart (Novolog Vial Sliding Scale -) 1 vial SQ ACHS [facility] PRN Reason: Protocol Last Admin: 09/15/16 06:37 Dose: Not Given Isosorbide Mononitrate (Imdur -) 90 mg PO DAILY [facility] Last Admin: 09/15/16 09:24 Dose: 90 mg Lactobacillus Acidophilus (Bacid -) 1 tab PO BID [facility] Last Admin: 09/15/16 09:24 Dose: 1 tab Metoprolol Tartrate (Lopressor -) 100 mg PO BID [facility] Last Admin: 09/15/16 09:26 Dose: 100 mg Nifedipine (Procardia Xl -) 60 mg PO BID [facility] Last Admin: 09/15/16 09:20 Dose: 60 mg Ondansetron HCl (Zofran -) 4 mg PO Q8H PRN PRN Reason: NAUSEA Oxycodone HCl (Roxicodone -) 5 mg PO Q6H PRN PRN Reason: PAIN Last Admin: 09/10/16 11:52 Dose: 5 mg Pantoprazole Sodium (Protonix -) 20 mg PO DAILY [facility] Last Admin: 09/15/16 09:26 Dose: 20 mg Ranitidine HCl (Zantac -) 150 mg PO DAILY [facility] Last Admin: 09/15/16 09:27 Dose: 150 mg Sodium Bicarbonate (Sodium Bicarbonate -) 650 mg PO BID [facility] Last Admin: 09/15/16 09:26 Dose: 650 mg - Objective Vital Signs: Vital Signs Temperature 97.9 F 09/15/16 09:27 Pulse Rate 62 09/15/16 09:27 Respiratory Rate 20 09/15/16 09:27 Blood Pressure 153/85 09/15/16 09:27 O2 Sat by Pulse Oximetry (%) 96 09/14/16 21:00 Constitutional: Yes: No Distress, Calm Eyes: Yes: Conjunctiva Clear HENT: Yes: Atraumatic Neck: Yes: Supple Cardiovascular: Yes: Regular Rate and Rhythm Respiratory: Yes: CTA Bilaterally Gastrointestinal: Yes: Soft. No: Distention, Tenderness Genitourinary: No: CVA Tenderness - Left, CVA Tenderness - Right Musculoskeletal: No: Joint Stiffness, Joint Swelling Extremities: No: Cold, Cool Edema: Yes (R>L; 1+> trace) Peripheral Pulses WNL: Yes Integumentary: No: Rash, Venous Stasis Changes Neurological: Yes: WNL, Alert, Oriented ...Motor Strength: WNL Psychiatric: Yes: WNL, Alert, Oriented. No: Agitated, Suicidal Ideation Labs: CBC, BMP 09/15/16 07:05 09/15/16 07:05 INR, PTT INR 1.05 (0.82-1.09) 08/29/16 15:55 - ....Imaging Other: Report Reviewed Assessment/Plan ASHD PVD smoker, h/o foot osteomyelitis DM, CRF R foot cellulitis and suspected osteomyelitis; IV ATB per ID; path no residual osteomyelitis; stop ATB per ID s/p toe amputation per vascular sx; Acute on CRF, hyperK IVF x 24 h see above legs edema: legs venous US; restart lasix in am if creatinine better anemia s/p PRBC TYRA GI bleed acute blood loss anemia can not use TEDs or SCD b/o PVD ambulate with walker f/u labs DC planning if stable 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
[2016-09-15] MEDS: BACITRACIN 30 GM TUBE TOPICAL OINTMENT TP SCH (11:46)
[2016-09-15] MEDS ORDERED: PT OWN MED DRAWER 7, Y5N ONE (13:52)
[2016-09-15] MEDS: CHOLESTYRAMINE/SUCROSE 4 GM PACKET PO SCH (14:01)
--- NOTE | 2016-09-15 14:37 | PN ---
Progress Note, Physician History of Present Illness: Feels well, denies chest pain or dyspnea. Hgb stable post transfusion. - Current Medication List Current Medications: Active Medications Acetaminophen (Tylenol -) 325 mg PO BID PRN PRN Reason: PAIN Last Admin: 09/09/16 21:27 Dose: 325 mg Acetaminophen (Tylenol -) 650 mg PO Q6HPO [facility] Last Admin: 09/15/16 12:00 Dose: Not Given Alprazolam (Xanax -) 0.25 mg PO Q12H PRN PRN Reason: ANXIETY Last Admin: 09/15/16 09:19 Dose: 0.25 mg Amitriptyline HCl (Elavil -) 50 mg PO HS [facility] Last Admin: 09/14/16 21:13 Dose: 50 mg Ascorbic Acid (Vitamin C -) 500 mg PO DAILY [facility] Last Admin: 09/15/16 09:26 Dose: 500 mg Aspirin (Ecotrin -) 81 mg PO DAILY [facility] Last Admin: 09/15/16 09:25 Dose: 81 mg Atorvastatin Calcium (Lipitor -) 10 mg PO [facility] Last Admin: 09/14/16 21:13 Dose: 10 mg Bacitracin (Bacitracin -) 1 applic TP DAILY [facility] Last Admin: 09/15/16 11:46 Dose: 1 applic Cholestyramine Resin (Questran Packet -) 2 gm PO DAILY@1300 [facility] Last Admin: 09/15/16 14:01 Dose: Not Given Docusate Sodium (Colace -) 100 mg PO DAILY [facility] Last Admin: 09/15/16 09:25 Dose: Not Given Ferrous Sulfate (Feosol -) 325 mg PO BID [facility] Last Admin: 09/15/16 09:25 Dose: 325 mg Furosemide (Lasix -) 20 mg PO DAILY [facility] Glipizide (Glucotrol Xl -) 2.5 mg PO ACBK [facility] Last Admin: 09/15/16 06:37 Dose: 2.5 mg IV Flush (Picc Line Flush) 8 ml IVPUSH PRN PRN PRN Reason: Protocol Sodium Chloride (Normal Saline -) 1,000 mls @ 50 mls/hr IV ASDIR [facility] Stop: 09/16/16 10:23 Last Admin: 09/15/16 11:45 Dose: 50 mls/hr Insulin Aspart (Novolog Vial Sliding Scale -) 1 vial SQ ACHS [facility] PRN Reason: Protocol Last Admin: 09/15/16 11:51 Dose: Not Given Isosorbide Mononitrate (Imdur -) 90 mg PO DAILY [facility] Last Admin: 09/15/16 09:24 Dose: 90 mg Lactobacillus Acidophilus (Bacid -) 1 tab PO BID [facility] Last Admin: 09/15/16 09:24 Dose: 1 tab Metoprolol Tartrate (Lopressor -) 100 mg PO BID [facility] Last Admin: 09/15/16 09:26 Dose: 100 mg Nifedipine (Procardia Xl -) 60 mg PO BID [facility] Last Admin: 09/15/16 09:20 Dose: 60 mg Ondansetron HCl (Zofran -) 4 mg PO Q8H PRN PRN Reason: NAUSEA Oxycodone HCl (Roxicodone -) 5 mg PO Q6H PRN PRN Reason: PAIN Last Admin: 09/10/16 11:52 Dose: 5 mg Pantoprazole Sodium (Protonix -) 20 mg PO DAILY [facility] Last Admin: 09/15/16 09:26 Dose: 20 mg Ranitidine HCl (Zantac -) 150 mg PO DAILY [facility] Last Admin: 09/15/16 09:27 Dose: 150 mg Sodium Bicarbonate (Sodium Bicarbonate -) 650 mg PO BID [facility] Last Admin: 09/15/16 09:26 Dose: 650 mg - Objective Vital Signs: Vital Signs Temperature 98.3 F 09/15/16 13:29 Pulse Rate 63 09/15/16 13:29 Respiratory Rate 19 09/15/16 13:29 Blood Pressure 145/67 09/15/16 13:29 O2 Sat by Pulse Oximetry (%) 96 09/14/16 21:00 Constitutional: Yes: No Distress, Calm, Thin Neck: Yes: Supple Cardiovascular: Yes: Regular Rate and Rhythm Respiratory: Yes: Regular, Diminished Gastrointestinal: Yes: Normal Bowel Sounds, Soft Extremities: Yes: Amputation Edema: No Labs: CBC, BMP 09/15/16 07:05 09/15/16 07:05 INR, PTT INR 1.05 (0.82-1.09) 08/29/16 15:55 Problem List - Problems (1) Cellulitis of foot, right Code(s): L03.115 - CELLULITIS OF RIGHT LOWER LIMB (2) [id number] kidney injury Code(s): N17.9 - ACUTE KIDNEY FAILURE, UNSPECIFIED N18.9 - CHRONIC KIDNEY DISEASE, UNSPECIFIED (3) HTN (hypertension) Code(s): I10 - ESSENTIAL (PRIMARY) HYPERTENSION Qualifiers: Hypertension type: essential hypertension Qualified Code(s): I10 - Essential (primary) hypertension (4) Hyperlipidemia associated with type 2 diabetes mellitus Code(s): E11.69 - TYPE 2 DIABETES MELLITUS WITH OTHER SPECIFIED COMPLICATION E78.5 - HYPERLIPIDEMIA, UNSPECIFIED (5) PAD (peripheral artery disease) Code(s): I73.9 - PERIPHERAL VASCULAR DISEASE, UNSPECIFIED (6) Pre-operative cardiovascular examination, myocardial ischemia Code(s): I25.5 - ISCHEMIC CARDIOMYOPATHY Z01.810 - ENCOUNTER FOR PREPROCEDURAL CARDIOVASCULAR EXAMINATION (7) S/P femoropopliteal bypass surgery Code(s): Z95.828 - PRESENCE OF OTHER VASCULAR IMPLANTS AND GRAFTS (8) Anemia Code(s): D64.9 - ANEMIA, UNSPECIFIED Qualifiers: Anemia type: iron deficiency (9) COPD (chronic obstructive pulmonary disease) Code(s): J44.9 - CHRONIC OBSTRUCTIVE PULMONARY DISEASE, UNSPECIFIED Assessment/Plan 1. Post toe amputation for osteomyelitis/cellulitis 2. History of acute hypercapneic respiratory failure post ERCP related to anesthesia 3. CAD abnormal MPI angina pectoris 4. HTN 5. DM 6. Hypercholesterolemia 7. History of PAD post right fem-pop bypass 8. COPD 9. Acute on CKD with hyperkalemia improving 10. Anemia post transfusion PLAN: 1. Continue Lopressor 100 bid 2. Continue Procardia XL 60 bid 3. Resume Ramipril +/- Lasix once renal function stabilizes and hyperkalemia resolves 4. Continue Imdur 90 qd 5. Continue ASA 81 qd 6. Continue Lipitor 10 qhs 7. Antibiotics d/itzel per ID team 8. Continue hydration with monitor renal recovery 9. Monitor Hgb post-transfusion
--- NOTE | 2016-09-15 14:38 | PN ---
Progress Note (short form) - Note Progress Note: Renal Follow up for AGUSTÍN on CKD Pt seen and examined at the bedside no acute complaints feels well started on IVF no chest pain or sob Vital Signs Temperature 98.3 F 09/15/16 13:29 Pulse Rate 63 09/15/16 13:29 Respiratory Rate 19 09/15/16 13:29 Blood Pressure 145/67 09/15/16 13:29 O2 Sat by Pulse Oximetry (%) 96 09/14/16 21:00 Intake & Output 09/12/16 09/13/16 09/14/16 09/15/16 23:59 23:59 23:59 23:59 Intake Total 4131 912 3851 Output Total 250 Balance 5849 196 0876 Gen: NAD, awake and alert CVS: RRR, No M/R Lungs: Dec BS Lung bases Abd: soft NT/ND Ext: Right foot in dressing. Minimal to trace edema in LE CBC, BMP 09/15/16 07:05 09/15/16 07:05 Current Medications Acetaminophen (Tylenol -) 325 mg PO BID PRN PRN Reason: PAIN Last Admin: 09/09/16 21:27 Dose: 325 mg Acetaminophen (Tylenol -) 650 mg PO Q6HPO [facility] Last Admin: 09/15/16 12:00 Dose: Not Given Alprazolam (Xanax -) 0.25 mg PO Q12H PRN PRN Reason: ANXIETY Last Admin: 09/15/16 09:19 Dose: 0.25 mg Amitriptyline HCl (Elavil -) 50 mg PO HS [facility] Last Admin: 09/14/16 21:13 Dose: 50 mg Ascorbic Acid (Vitamin C -) 500 mg PO DAILY [facility] Last Admin: 09/15/16 09:26 Dose: 500 mg Aspirin (Ecotrin -) 81 mg PO DAILY [facility] Last Admin: 09/15/16 09:25 Dose: 81 mg Atorvastatin Calcium (Lipitor -) 10 mg PO HS [facility] Last Admin: 09/14/16 21:13 Dose: 10 mg Bacitracin (Bacitracin -) 1 applic TP DAILY [facility] Last Admin: 09/15/16 11:46 Dose: 1 applic Cholestyramine Resin (Questran Packet -) 2 gm PO DAILY@1300 [facility] Last Admin: 09/15/16 14:01 Dose: Not Given Docusate Sodium (Colace -) 100 mg PO DAILY [facility] Last Admin: 09/15/16 09:25 Dose: Not Given Ferrous Sulfate (Feosol -) 325 mg PO BID [facility] Last Admin: 09/15/16 09:25 Dose: 325 mg Furosemide (Lasix -) 20 mg PO DAILY [facility] Glipizide (Glucotrol Xl -) 2.5 mg PO ACBK [facility] Last Admin: 09/15/16 06:37 Dose: 2.5 mg IV Flush (Picc Line Flush) 8 ml IVPUSH PRN PRN PRN Reason: Protocol Sodium Chloride (Normal Saline -) 1,000 mls @ 50 mls/hr IV ASDIR [facility] Stop: 09/16/16 10:23 Last Admin: 09/15/16 11:45 Dose: 50 mls/hr Insulin Aspart (Novolog Vial Sliding Scale -) 1 vial SQ ACHS [facility] PRN Reason: Protocol Last Admin: 09/15/16 11:51 Dose: Not Given Isosorbide Mononitrate (Imdur -) 90 mg PO DAILY [facility] Last Admin: 09/15/16 09:24 Dose: 90 mg Lactobacillus Acidophilus (Bacid -) 1 tab PO BID [facility] Last Admin: 09/15/16 09:24 Dose: 1 tab Metoprolol Tartrate (Lopressor -) 100 mg PO BID [facility] Last Admin: 09/15/16 09:26 Dose: 100 mg Nifedipine (Procardia Xl -) 60 mg PO BID [facility] Last Admin: 09/15/16 09:20 Dose: 60 mg Ondansetron HCl (Zofran -) 4 mg PO Q8H PRN PRN Reason: NAUSEA Oxycodone HCl (Roxicodone -) 5 mg PO Q6H PRN PRN Reason: PAIN Last Admin: 09/10/16 11:52 Dose: 5 mg Pantoprazole Sodium (Protonix -) 20 mg PO DAILY [facility] Last Admin: 09/15/16 09:26 Dose: 20 mg Ranitidine HCl (Zantac -) 150 mg PO DAILY [facility] Last Admin: 09/15/16 09:27 Dose: 150 mg Sodium Bicarbonate (Sodium Bicarbonate -) 650 mg PO BID [facility] Last Admin: 09/15/16 09:26 Dose: 650 mg A/P 81 year old woman with PMhx of CKD stage 3 (baseline Cr 1.6), Renal Artery stenosis (30% no intervention), Hypertension, DM Type 2, PVD who presented with suspected osteomylitis on b/l feet and found to have AGUSTÍN with BUN/Cr of 30/2.9. #Non-oliguirc AGUSTÍN on CKD secondary to NSAID use + JEANETTE -> renal hypoperufison/ATN renal function improved from yesterday but not at baseline agree with trial of IVF repeat BMP in the am hold diuretics for now #Hyperkalemia s/p kayexalate today low K diet for now D/c Gatorade as it contains a lot of potassium #Osteomylitis of LE ? need for further Abx after amputation management as per ID and Vascular Sx #Diarrhea Ceeck stool c-diff (prior C diff was negative) Quentin Goyal DO
[2016-09-15] MEDS: ATORVASTATIN CA 10 MG TABLET (FP) PO SCH (21:54)
[2016-09-15] MEDS: AMITRIPTYLINE HCL 25 MG TABLET (FP) PO SCH (21:55)
[2016-09-16] MEDS: ACETAMINOPHEN 325 MG TABLET (FP) PO SCH ×3 (00:49→12:00)
[2016-09-16] MEDS ORDERED: PT OWN MED DRAWER 7, Y5N ONE (06:23)
[2016-09-16] MEDS: glipiZIDE-XL 2.5 MG TAB.ER.24 PO SCH (06:30)
[2016-09-16 06:31] LABS: BASOPHIL 0.9 % (0-2.0); EOSINOPHIL 7.7 % (0-4.5); MCH 30.6 pg (25.7-33.7); MCHC 34.1 g/dl (32.0-36.0); MEAN CELL VOLUME 89.8 fl (80-96); MEAN PLT VOLUME 8.1 fl (7.5-11.1); NEUTROPHILS 57.2 % (42.8-82.8); PLATELET COUNT 396 K/MM3 (134-434); RDW 13.7 % (11.6-15.6); WHITE BLOOD COUNT 9.4 K/mm3 (4.0-10.0)
[2016-09-16 06:56] LABS: ALBUMIN 2.2 g/dl (3.4-5.0); BILIRUBIN,TOTAL 0.2 mg/dL (0.2-1.0); CALCIUM 7.3 mg/dL (8.5-10.1); CREATININE 2.1 mg/dL (0.55-1.02); TOT PROT 5.7 g/dl (6.4-8.2)
[2016-09-16] MEDS: INSULIN SLIDING SCALE (NOVOLOG) 1 VIAL SQ SCH ×2 (07:27→12:00)
[2016-09-16] MEDS ORDERED: FUROSEMIDE 20 MG TABLET (FP) PO SCH (10:00)
--- NOTE | 2016-09-16 10:27 | DS ---
Physical Examination Vital Signs: Vital Signs Temperature 97.8 F 09/16/16 06:00 Pulse Rate 58 L 09/16/16 06:00 Respiratory Rate 20 09/16/16 06:00 Blood Pressure 112/44 09/16/16 06:00 O2 Sat by Pulse Oximetry (%) 98 09/15/16 21:00 Findings/Remarks: in bed nad afebrile feels well; ambulates in hallway, O2 sat>90% on RA legs US no DVT VSS no pain no SOB no diarrhea d/w pt and CM will go home with home PT and VNS; f/u as advised scripts done, d/w pt all questions answered; DC home today, d/w pt and staff; T time 40 min Constitutional: Yes: No Distress, Calm Eyes: Yes: Conjunctiva Clear HENT: Yes: Atraumatic Neck: Yes: Supple Cardiovascular: Yes: Regular Rate and Rhythm Respiratory: Yes: CTA Bilaterally Gastrointestinal: Yes: Soft. No: Distention, Tenderness Renal/: No: CVA Tenderness - Left, CVA Tenderness - Right Musculoskeletal: No: Joint Stiffness, Joint Swelling Extremities: No: Cold, Cool Edema: No Peripheral Pulses WNL: Yes Integumentary: No: Rash, Venous Stasis Changes Wound/Incision: Yes: Dressing Dry and Intact (s/p surgery wound healing) Neurological: Yes: WNL, Alert, Oriented ...Motor Strength: WNL Psychiatric: Yes: WNL, Alert, Oriented. No: Agitated, Suicidal Ideation Labs: CBC, BMP 09/16/16 05:15 09/16/16 05:15 Discharge Summary Reason For Visit: OSTEOMYELITIS/CELLULI & ABSCESS OF FOOT Current Active Problems CAD (coronary artery disease) (Acute) COPD (chronic obstructive pulmonary disease) (Acute) Cellulitis of foot, right (Acute) Cellulitis of left foot (Acute) Cellulitis of right foot due to methicillin-resistant Staphylococcus aureus ( Acute) Osteomyelitis (Acute) Procedures: Principal: admitted with foot cellulitis Other Procedures: IV ATB per ID; surgery eval; 2nd toe amputation Hospital Course: improbed with above; DC home with VNS and PT see DC instructions wound care per dr Jane no tob;falls PFX; RTER if worse or recurrent c/o; percocet and xanax prn will order from office; d/w pt to limit use as much as possible; d/w pt risks falls tolerance dependence with fdc use; EMILIO checked Condition: Stable - Instructions Diet, Activity, Other Instructions: f/u PCP and wound care dr Jane in 1 week wound care at home VNS home PT check labs CBC CMP in 1 week f/u cardiology & renal in 2-4 weeks RTER if worse or recurrent no smoking Referrals: Angela Barahona [Primary Care Provider] - Bob Jane MD [Staff Physician] - Quentin Goyal MD [Staff Physician] - Oswaldo Lam MD [Staff Physician] - Sylvia De Paz MD [Staff Physician] - Disposition: VNS/HOME HEALTH CARE - Home Medications Comprehensive Discharge Medication List: Ambulatory Orders Alprazolam 0.25 mg PO BID PRN 08/29/16 Amitriptyline HCl [Elavil -] 50 mg PO HS 08/29/16 Ascorbic Acid [Vitamin C -] 500 mg PO DAILY 08/29/16 Atorvastatin Ca [Lipitor] 10 mg PO HS 08/29/16 Ferrous Sulfate 325 mg PO BID 08/29/16 Furosemide [Lasix] 20 mg PO DAILY 08/29/16 Glipizide [Glipizide ER] 2.5 mg PO DAILY 08/29/16 Lactobacillus Acidophilus [Bacid -] 1 each PO BID 08/29/16 Metoprolol Tartrate 100 mg PO BID 08/29/16 Nifedipine ER [Procardia XL -] 60 mg PO BID 08/29/16 Acetaminophen [Tylenol .Regular Strength -] 325 mg PO BID PRN #0 tablet Aspirin Coated [Ecotrin -] 81 mg PO DAILY tablet.ec 09/15/16 Bacitracin - [Bacitracin Topical Ointment -] 1 applic TP DAILY tube 09/15/16 Cholestyramine/Sucrose [Questran Packet -] 2 gm PO DAILY@1300 #30 packet Docusate Sodium [Colace -] 100 mg PO DAILY PRN capsule 09/15/16 Insulin Sliding Scale [Novolog Vial Sliding Scale -] 1 vial SQ ACHS units 09/15 Oxycodone HCl [Roxicodone -] 5 mg PO Q6H PRN #0 tablet MDD 4 09/15/16 Pantoprazole Sodium [Protonix -] 20 mg PO DAILY #90 tablet.ec 09/15/16 Ranitidine [Zantac -] 150 mg PO DAILY tablet 09/15/16 Sodium Bicarbonate - 650 mg PO BID #60 tablet 09/15/16 Furosemide [Lasix -] 20 mg PO DAILY #90 tablet 09/16/16 Isosorbide Mononitrate [Imdur -] 90 mg PO DAILY #90 tab.sr.24h 09/16/16
[2016-09-16] MEDS: LACTOBACILLUS ACIDOPHILUS 1 EACH TAB (FP) PO SCH (10:32)
[2016-09-16] MEDS: BACITRACIN 30 GM TUBE TOPICAL OINTMENT TP SCH (10:32)
[2016-09-16] MEDS: FERROUS SO4 325 MG TABLET (FP) PO SCH (10:33)
[2016-09-16] MEDS: DOCUSATE SODIUM 100 MG CAPSULE (FP) PO SCH (10:33)
[2016-09-16] MEDS: ISOSORBIDE MONONITRATE 30 MG TAB.SR.24H (FP) PO SCH (10:33)
[2016-09-16] MEDS: ASPIRIN COATED 81 MG TABLET.EC PO SCH (10:33)
[2016-09-16] MEDS: METOPROLOL TARTRATE 50 MG TABLET (FP) PO SCH (10:34)
[2016-09-16] MEDS: PANTOPRAZOLE 20 MG TABLET (FP) PO SCH (10:35)
[2016-09-16] MEDS: ASCORBIC ACID 500 MG TABLET (FP) PO SCH (10:35)
[2016-09-16] MEDS: NIFEdipine E.R 60 MG TABLET (UD) PO SCH (10:35)
[2016-09-16] MEDS: SODIUM BICARBONATE 650 MG TABLET PO SCH (10:35)
[2016-09-16] MEDS: RANITIDINE HCL 150 MG TABLET (FP) PO SCH (10:36)
[2016-09-16 10:37] VITALS: BP 148/73; PULSE 62; TEMP 79.7
[2016-09-16] MEDS ORDERED: LOPERAMIDE HCL 2 MG CAPSULE PO ONE (12:00)
--- NOTE | 2016-09-16 13:12 | PN ---
Progress Note (short form) - Note Progress Note: Renal Follow up for AGUSTÍN on CKD Pt seen and examined at the bedside still reports some diarrhea no abd pain, fever or chills no N/V for discharge today Vital Signs Temperature 79.7 F L 09/16/16 10:00 Pulse Rate 62 09/16/16 10:00 Respiratory Rate 20 09/16/16 10:00 Blood Pressure 148/73 09/16/16 10:00 O2 Sat by Pulse Oximetry (%) 98 09/16/16 09:00 Intake & Output 09/13/16 09/14/16 09/15/16 09/16/16 23:59 23:59 23:59 23:59 Intake Total 600 1650 1370 90 Balance 600 1650 1370 90 Gen: NAD, awake and alert CVS: RRR, No M/R Lungs: Dec BS Lung bases Abd: soft NT/ND Ext: Right foot in dressing. Minimal to trace edema in LE CBC, BMP 09/16/16 05:15 09/16/16 05:15 Current Medications Acetaminophen (Tylenol -) 325 mg PO BID PRN PRN Reason: PAIN Last Admin: 09/09/16 21:27 Dose: 325 mg Acetaminophen (Tylenol -) 650 mg PO Q6HPO ON LICENSE OF [facility] Last Admin: 09/16/16 12:00 Dose: Not Given Alprazolam (Xanax -) 0.25 mg PO Q12H PRN PRN Reason: ANXIETY Last Admin: 09/15/16 21:58 Dose: 0.25 mg Amitriptyline HCl (Elavil -) 50 mg PO HS ON LICENSE OF [facility] Last Admin: 09/15/16 21:55 Dose: 50 mg Ascorbic Acid (Vitamin C -) 500 mg PO DAILY ON LICENSE OF [facility] Last Admin: 09/16/16 10:35 Dose: 500 mg Aspirin (Ecotrin -) 81 mg PO DAILY ON LICENSE OF [facility] Last Admin: 09/16/16 10:33 Dose: 81 mg Atorvastatin Calcium (Lipitor -) 10 mg PO HS ON LICENSE OF [facility] Last Admin: 09/15/16 21:54 Dose: 10 mg Bacitracin (Bacitracin -) 1 applic TP DAILY ON LICENSE OF [facility] Last Admin: 09/16/16 10:32 Dose: 1 applic Cholestyramine Resin (Questran Packet -) 2 gm PO DAILY@1300 ON LICENSE OF [facility] Last Admin: 09/15/16 14:01 Dose: Not Given Docusate Sodium (Colace -) 100 mg PO DAILY ON LICENSE OF [facility] Last Admin: 09/16/16 10:33 Dose: Not Given Ferrous Sulfate (Feosol -) 325 mg PO BID ON LICENSE OF [facility] Last Admin: 09/16/16 10:33 Dose: 325 mg Furosemide (Lasix -) 20 mg PO DAILY ON LICENSE OF [facility] Last Admin: 09/16/16 10:34 Dose: 20 mg Glipizide (Glucotrol Xl -) 2.5 mg PO ACBK ON LICENSE OF [facility] Last Admin: 09/16/16 06:30 Dose: 2.5 mg IV Flush (Picc Line Flush) 8 ml IVPUSH PRN PRN PRN Reason: Protocol Insulin Aspart (Novolog Vial Sliding Scale -) 1 vial SQ ACHS ON LICENSE OF [facility] PRN Reason: Protocol Last Admin: 09/16/16 12:00 Dose: Not Given Isosorbide Mononitrate (Imdur -) 90 mg PO DAILY ON LICENSE OF [facility] Last Admin: 09/16/16 10:33 Dose: 90 mg Lactobacillus Acidophilus (Bacid -) 1 tab PO BID ON LICENSE OF [facility] Last Admin: 09/16/16 10:32 Dose: 1 tab Metoprolol Tartrate (Lopressor -) 100 mg PO BID ON LICENSE OF [facility] Last Admin: 09/16/16 10:34 Dose: 100 mg Nifedipine (Procardia Xl -) 60 mg PO BID ON LICENSE OF [facility] Last Admin: 09/16/16 10:35 Dose: 60 mg Ondansetron HCl (Zofran -) 4 mg PO Q8H PRN PRN Reason: NAUSEA Oxycodone HCl (Roxicodone -) 5 mg PO Q6H PRN PRN Reason: PAIN Last Admin: 09/10/16 11:52 Dose: 5 mg Pantoprazole Sodium (Protonix -) 20 mg PO DAILY ON LICENSE OF [facility] Last Admin: 09/16/16 10:35 Dose: 20 mg Ranitidine HCl (Zantac -) 150 mg PO DAILY ON LICENSE OF [facility] Last Admin: 09/16/16 10:36 Dose: 150 mg Sodium Bicarbonate (Sodium Bicarbonate -) 650 mg PO BID ON LICENSE OF [facility] Last Admin: 09/16/16 10:35 Dose: 650 mg A/P 81 year old woman with PMhx of CKD stage 3 (baseline Cr 1.6), Renal Artery stenosis (30% no intervention), Hypertension, DM Type 2, PVD who presented with suspected osteomylitis on b/l feet and found to have AGUSTÍN with BUN/Cr of 30/2.9. #Non-oliguirc AGUSTÍN on CKD secondary to NSAID use + JEANETTE -> renal hypoperufison/ATN Renal function improved discontinue IVF ok for discharge with output follow up in 1-2 weeks avoid nsaids, fleet enemas, IV contrast no indication of HOSPITAL FELLOW advised to improved oral fluid intake #Hyperkalemia resolved s/p Kayexalte repeat bmp next week Thank you Will monitor as an outpatient Quentin Goyal DO
== END 2016-09-16 13:15 | disposition home health service (06) | DRG 617 ==
LOC: JER 14:06 → JERBED 18:08 → J5S 23:01
PROVIDERS: ADMIT Internal Medicine; ATTEND Internal Medicine
PROC: 0Y6R0Z0 Detachment at Right 2nd Toe, Complete, Open Approach (ICD-10-PCS; principal; 2016-09-09 10:00)
PROC: 30233N1 Transfusion of Nonautologous Red Blood Cells into Peripheral Vein, Percutaneous Approach (ICD-10-PCS; 2016-09-14)
DX: E11.69 Type 2 diabetes mellitus with other specified complication (principal); M86.171 Other acute osteomyelitis, right ankle and foot; L03.115 Cellulitis of right lower limb; D62 Acute posthemorrhagic anemia; L03.116 Cellulitis of left lower limb; N17.0 Acute kidney failure with tubular necrosis; N17.9 Acute kidney failure, unspecified; I73.9 Peripheral vascular disease, unspecified; E78.00 Pure hypercholesterolemia, unspecified; J45.909 Unspecified asthma, uncomplicated; I25.10 Atherosclerotic heart disease of native coronary artery without angina pectoris; I70.1 Atherosclerosis of renal artery; D50.8 Other iron deficiency anemias; B95.62 Methicillin resistant Staphylococcus aureus infection as the cause of diseases classified elsewhere; E11.22 Type 2 diabetes mellitus with diabetic chronic kidney disease; E11.621 Type 2 diabetes mellitus with foot ulcer; I12.9 Hypertensive chronic kidney disease with stage 1 through stage 4 chronic kidney disease, or unspecified chronic kidney disease; N18.3 Chronic kidney disease, stage 3 (moderate); F41.9 Anxiety disorder, unspecified; E87.5 Hyperkalemia; Z89.421 Acquired absence of other right toe(s); Z87.891 Personal history of nicotine dependence
CPT/HCPCS: 36415; 36430; 71020-TC; 73630-TC-RT; 73718-TC; 76775-TC; 80048; 80053; 81003; 81015; 82272; 82550; 82570; 82607; 82728; 83520; 83540; 83605; 83735; 83883; 84100; 84156; 84300; 84443; 84484; 85025; 85027; 85610; 85651; 86140; 86256; 86850; 86900; 86901; 86922; 87040; 87045; 87046; 87070; 87177; 87186; 87205; 87207; 87209; 87324; 87328; 87329; 87449; 88305-TC; 88311-TC; 93005; 93010; 93970-TC; 94760; 94761; 97116-GP; 97162-PG; 99284-25; J0878; J1644; P9038; P9058

== ENCOUNTER 2017-04-06 08:44 | Observation (INO) | payer OTHER ==
--- NOTE | 2017-04-06 09:01 | PDOC ---
History of Present Illness - General Stated Complaint: WEAKNESS Time Seen by Provider: 04/06/17 08:59 History Source: Patient Exam Limitations: No Limitations - History of Present Illness Initial Comments: 04/06/17 09:22 CC: Acute onset of weakness Patient is a 81 y.o. female with a PMH of HTN, NIDDM, PAD and possible chronic renal failure who presents to our facility today c/o lightheadedness. Patient states she woke up this morning, sat on the edge of the bed and felt "lightheaded" without any associated dizziness, shortness of breath or visual changes. Patient denies any associated trauma. Patient notes she did not take her BP medications (Nidedipine 60 mg BID, Metoprolol Tartrate (100 mg BID) or Imdur (30 mg QD) or her Glipizide (2.5 mg BID) yesterday evening or this morning. Patient also notes a h/o decreased PO intake secondary to the summer heat. Past History - Past Medical History Allergies/Adverse Reactions: Allergies Allergy/AdvReac Type Severity Reaction Status Date / Time iodine Allergy Rash Verified 08/29/16 14:28 penicillin V Allergy Verified 08/29/16 14:28 shellfish derived Allergy Rash Verified 08/29/16 14:28 vancomycin Allergy Verified 08/29/16 14:28 azithromycin AdvReac Verified 08/29/16 14:28 Home Medications: Ambulatory Orders Alprazolam 0.25 mg PO BID PRN 08/29/16 Amitriptyline HCl [Elavil -] 50 mg PO HS 08/29/16 Ascorbic Acid [Vitamin C -] 500 mg PO DAILY 08/29/16 Atorvastatin Ca [Lipitor] 10 mg PO HS 08/29/16 Ferrous Sulfate 325 mg PO BID 08/29/16 Furosemide [Lasix] 20 mg PO DAILY 08/29/16 Glipizide [Glipizide ER] 2.5 mg PO DAILY 08/29/16 Metoprolol Tartrate 100 mg PO BID 08/29/16 Nifedipine ER [Procardia XL -] 60 mg PO BID 08/29/16 Aspirin Coated [Ecotrin -] 81 mg PO DAILY tablet.ec 09/15/16 Isosorbide Mononitrate [Imdur -] 30 mg PO DAILY 04/06/17 Anemia: Yes Asthma: No Cancer: No Cardiac Disorders: Yes (PAD) CVA: No COPD: No CHF: No DVT: No Dementia: No Diabetes: Yes GI Disorders: No Disorders: No HTN: Yes Hypercholesterolemia: Yes Liver Disease: No Suicide Attempt (Hx): No Seizures: No Thyroid Disease: No - Surgical History Abdominal Surgery: No Appendectomy: No Cardiac Surgery: Yes (FEMORAL BYPASS) Cholecystectomy: Yes Lung Surgery: No Neurologic Surgery: No Orthopedic Surgery: No - Family Disease History Family Disease History: CA: Father (lung), Brother, Sister - Immunization History Immunization Up to Date: Yes - Psycho/Social/Smoking Cessation Hx Anxiety: No Suicidal Ideation: No Smoking Status: Yes Smoking History: Current every day smoker Have you smoked in the past 12 months: Yes Number of Cigarettes Smoked Daily: 20 If you are a former smoker, when did you quit?: 08/10/2012 Cigars Per Day: 0 'Breaking Loose' booklet given: 10/13/15 Hx Alcohol Use: No Drug/Substance Use Hx: No Substance Use Type: None Hx Substance Use Treatment: No Review of Systems - Review of Systems Constitutional: Yes: Loss of Appetite, Weakness. No: Chills, Diaphoresis HEENTM: No: Blurred Vision, Double Vision, Hearing Loss, Throat Pain Respiratory: No: Cough, Orthopnea, Shortness of Breath, Hemoptysis Cardiac (ROS): Yes: Lightheadedness. No: Chest Pain, Edema, Palpitations, Syncope ABD/GI: No: Constipated, Diarrhea, Nausea, Vomiting : No: Burning, Dysuria Musculoskeletal: No: Back Pain, Joint Pain, Muscle Weakness, Neck Pain Integumentary: No: Bruising, Change in Color, Erythema, Lesions Neurological: No: Headache, Numbness, Tingling, Tremors Psychiatric: No: Anxiety, Depression Endocrine: No: Intolerance to Cold, Intolerance to Heat, Increased Hunger, Increased Thirst Hematologic/Lymphatic: Yes: Anemia All Other Systems: Reviewed and Negative *Physical Exam - Physical Exam General Appearance: Yes: Appropriately Dressed HEENT: positive: EOMI, CHRISTINA Neck: positive: Tender, Supple Respiratory/Chest: positive: Lungs Clear, Normal Breath Sounds Cardiovascular: positive: Regular Rhythm, Regular Rate, S1, S2 Gastrointestinal/Abdominal: positive: Normal Bowel Sounds, Flat, Soft Musculoskeletal: positive: Other (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 Initial differential diagnosis includes arrhythmia vs. dehydration vs. anemia. EKG shows NSR with HR 72 BPM, no ST segment elevations or QTc prolongation. Patient's CBC and BMP were within normal limits. As patient continued to c/o lightheadedness following 500 mL gentle hydration, patient's PCP, Dr. Barahona was contacted who recommended admission for observation. Patient was admitted under Dr. Roman. \\ *DC/Admit/Observation/Transfer Diagnosis at time of Disposition: Lightheadedness - Discharge Dispostion Condition at time of disposition: Good Admit: Yes - Attestations Physician Attestion: 04/06/17 15:18 I, Dr. Di Ennis, attest that this document has been prepared under my direction and personally reviewed by me in its entirety. I further attest, that it accurately reflects all work, treatment, procedures and medical decision -making performed by me.
[2017-04-06] MEDS ORDERED: METOPROLOL TARTRATE 50 MG TABLET (FP) PO ONE (09:58)
[2017-04-06] MEDS ORDERED: ISOSORBIDE MONONITRATE 30 MG TAB.SR.24H (FP) PO SCH (10:00)
[2017-04-06] MEDS ORDERED: NIFEdipine E.R 60 MG TABLET (UD) PO SCH (10:00)
[2017-04-06] MEDS ORDERED: glipiZIDE 5 MG TABLET (FP) PO ONE (10:05)
[2017-04-06 10:06] LABS: URINE APPEARANCE CLEAR; URINE BILIRUBIN NEGATIVE (NEGATIVE); URINE BLOOD NEGATIVE (NEGATIVE); URINE COLOR STRAW; URINE GLUCOSE (UA) 2+ (NEGATIVE); URINE KETONE NEGATIVE (NEGATIVE); URINE LEUK ESTERASE NEGATIVE (NEGATIVE); URINE NITRITE NEGATIVE (NEGATIVE); URINE UROBILINOGEN NEGATIVE mg/dL (0.2-1.0)
[2017-04-06 10:09] LABS: MCH 31.4 pg (25.7-33.7); MCHC 34.6 g/dl (32.0-36.0); MEAN CELL VOLUME 90.7 fl (80-96); MEAN PLT VOLUME 8.4 fl (7.5-11.1); PLATELET COUNT 428 K/MM3 (134-434); RDW 13.1 % (11.6-15.6); WHITE BLOOD COUNT 9.4 K/mm3 (4.0-10.0)
[2017-04-06 10:17] LABS: URINE PROTEIN 3+ (NEGATIVE)
[2017-04-06 10:22] LABS: ANION GAP 7 (8-16); CALCIUM 9.1 mg/dL (8.5-10.1); CO2 24 mmol/L (21-32); CREATININE 3.1 mg/dL (0.55-1.02); GLUCOSE,RANDOM 195 mg/dL (74-106)
--- NOTE | 2017-04-06 10:29 | PDOC ---
Attending Attestation - Resident Resident Name: Di Ennis - ED Attending Attestation I have performed the following: I have examined & evaluated the patient, The case was reviewed & discussed with the resident, I agree w/resident's findings & plan, Exceptions are as noted - HPI HPI: 04/06/17 12:32 81y F hx of HTN, NIDDM, PAD, CKD, presents with complaint of feeling lightheaded , especially when she turns her head and sits up - she denies any associated room spining or sensation of movement, headache, vision changes, nausea/vomiting , abdominal pain, back pain, chest pain, shortness of breath, palpitations, fever/chills, cough. pt noted to be hyeprtensive in ED, states she has not had her BP meds since last night. Pt givena dose of her htn meds here today pts exam unremarkable although pt notes she feels lightheaded when she is sitting up during exam and as documented by resident pts labs reviewed noted for Cr of 3.1, up from high 2s form previous 2 sets of lab work. will give some fluids to see if symptoms are improved will d/w dr. Barahona regarding disposition 04/06/17 13:32 pt still feeling lightheaded after hydration will admit to observation for further evaluation of acute on chronic renal failure and dehdyration stable for med surge - Physicial Exam PE: 04/08/17 16:17 see above - Medical Decision Making 04/08/17 16:18 see above Heart Score/ECG Review - ECG Impressions Comment:: 04/06/17 10:29 Twelve-lead EKG was performed and reviewed by me. There is normal sinus rhythm with a normal rate. Rate of 72 Incomplete right bundle-branch block Q waves in lead [address]-T wave changes suggestive of acute ischemia
[2017-04-06] MEDS ORDERED: METOPROLOL TARTRATE 50 MG TABLET (FP) ONE (10:45)
[2017-04-06] MEDS ORDERED: glipiZIDE 5 MG TABLET (FP) ONE (10:45)
[2017-04-06] MEDS ORDERED: SODIUM CHLORIDE 500 ML IV STA (12:32)
--- NOTE | 2017-04-06 15:04 | EKG ---
Test Reason : Blood Pressure : / mmHG Vent. Rate : 072 BPM Atrial Rate : 072 BPM P-R Int : 200 ms QRS Dur : 098 ms QT Int : 420 ms P-R-T Axes : 046 026 093 degrees QTc Int : 459 ms NORMAL SINUS RHYTHM INCOMPLETE RIGHT BUNDLE BRANCH BLOCK ABNORMAL QRS-T ANGLE, CONSIDER PRIMARY T WAVE ABNORMALITY ABNORMAL ECG WHEN COMPARED WITH ECG OF 09-SEP-2016 11:02, NO SIGNIFICANT CHANGE WAS FOUND Confirmed by LORETA RENNER MD ([id number]) on 04/06/2017 3:04:10 PM Referred By: Confirmed By:LORETA RENNER MD
--- NOTE | 2017-04-06 17:29 | HP ---
CHIEF COMPLAINT: lightheadedness PCP: Dr. Barahona HISTORY OF PRESENT ILLNESS: 81 year old F with pmh of HTN, NIDDM, PAD, scarlet fever, and chronic kidney disease presented to the ED with complaints of lightheadedness. Patient woke up this morning and said she felt lightheaded when she got out of bed. She could not describe the feeling, but she states that it has lasted ever since. She denied any dizziness, shortness of breath, vision changes. She denies any new medication changes. Patient states she has had decreased PO intake over the last year with a 6 pound weight loss. No history of any cardiac disease. ER course was notable for: (1)CBC, BMP (2)EKG (3)UA Recent Travel: denies PAST MEDICAL HISTORY: as stated above PAST SURGICAL HISTORY: right lower extremity bypass, and cholecystectomy Social History: Smokin ppd for 60 years Alcohol: denies Drugs: denies Family History: dm in mother Allergies iodine Allergy (Verified 08/29/16 14:28) Rash penicillin V Allergy (Verified 08/29/16 14:28) shellfish derived Allergy (Verified 08/29/16 14:28) Rash vancomycin Allergy (Verified 08/29/16 14:28) azithromycin Adverse Reaction (Verified 08/29/16 14:28) diarrhea HOME MEDICATIONS: Home Medications Medication Instructions Recorded Alprazolam 0.25 mg PO BID PRN 08/29/16 Amitriptyline HCl [Elavil -] 50 mg PO HS 08/29/16 Ascorbic Acid [Vitamin C -] 500 mg PO DAILY 08/29/16 Atorvastatin Ca [Lipitor] 10 mg PO HS 08/29/16 Ferrous Sulfate 325 mg PO BID 08/29/16 Furosemide [Lasix] 20 mg PO DAILY 08/29/16 Glipizide [Glipizide ER] 2.5 mg PO DAILY 08/29/16 Metoprolol Tartrate 100 mg PO BID 08/29/16 Nifedipine ER [Procardia XL -] 60 mg PO BID 08/29/16 Aspirin Coated [Ecotrin -] 81 mg PO DAILY tablet.ec 09/15/16 Isosorbide Mononitrate [Imdur -] 30 mg PO DAILY 04/06/17 REVIEW OF SYSTEMS CONSTITUTIONAL: Absent: fever, chills, diaphoresis, generalized weakness, malaise, loss of appetite, weight change HEENT: Absent: rhinorrhea, nasal congestion, throat pain, throat swelling, difficulty swallowing, mouth swelling, ear pain, eye pain, visual changes CARDIOVASCULAR: Absent: chest pain, syncope, palpitations, irregular heart rate, lightheadedness , peripheral edema RESPIRATORY: Absent: cough, shortness of breath, dyspnea with exertion, orthopnea, wheezing, stridor, hemoptysis GASTROINTESTINAL: Absent: abdominal pain, abdominal distension, nausea, vomiting, diarrhea, constipation, melena, hematochezia GENITOURINARY: Absent: dysuria, frequency, urgency, hesitancy, hematuria, flank pain, genital pain MUSCULOSKELETAL: Absent: myalgia, arthralgia, joint swelling, back pain, neck pain SKIN: Absent: rash, itching, pallor HEMATOLOGIC/IMMUNOLOGIC: Absent: easy bleeding, easy bruising, lymphadenopathy, frequent infections ENDOCRINE: Absent: unexplained weight gain, unexplained weight loss, heat intolerance, cold intolerance NEUROLOGIC: Absent: headache, focal weakness or paresthesias, dizziness, unsteady gait, seizure, mental status changes, bladder or bowel incontinence PSYCHIATRIC: Absent: anxiety, depression, suicidal or homicidal ideation, hallucinations. PHYSICAL EXAMINATION GENERAL: Awake, alert, and fully oriented, in no acute distress. HEAD: Normal with no signs of trauma. EYES: Pupils equal, round and reactive to light, extraocular movements intact, sclera anicteric, conjunctiva clear. No lid lag. EARS, NOSE, THROAT: Ears normal, nares patent, oropharynx clear without exudates. dry mucous membranes. NECK: Normal range of motion, supple without lymphadenopathy, JVD, or masses. LUNGS: Breath sounds equal, clear to auscultation bilaterally. No wheezes, and no crackles. No accessory muscle use. HEART: Regular rate and rhythm, normal S1 and S2, 2/6 systolic ejection murmr ABDOMEN: Soft, nontender, not distended, normoactive bowel sounds, no guarding, no rebound, no masses. No hepatomegaly or splenomegaly. MUSCULOSKELETAL: Normal range of motion at all joints. No bony deformities or tenderness. No CVA tenderness. UPPER EXTREMITIES: 2+ pulses, warm, well-perfused. No cyanosis. No clubbing. No peripheral edema. LOWER EXTREMITIES: 2+ pulses, warm, well-perfused. No calf tenderness. No peripheral edema. NEUROLOGICAL: Cranial nerves II-XII intact. Normal speech. Normal gait. 4/5 strength in LLE, 5/5 strength in RLE PSYCHIATRIC: Cooperative. Good eye contact. Appropriate mood and affect. SKIN: Warm, dry, normal turgor, no rashes or lesions noted, normal capillary refill. ASSESSMENT/PLAN: 81 year old F with pmh of HTN, NIDDM, PAD, scarlet fever, and chronic kidney disease presented to the ED with complaints of lightheadedness. #Lightheadedness 2/2 to volume depletion -Patient did not receive any fluids in the ED -Orthostatics never checked in ED, order as placed -Patient eloped prior to any management #HTN -Patient received home medications in the ED Visit type - Emergency Visit Emergency Visit: Yes ED Registration Date: 04/06/17 Care time: The patient presented to the Emergency Department on the above date and was hospitalized for further evaluation of their emergent condition. - New Patient This patient is new to me today: Yes Date on this admission: 04/06/17 - Critical Care Critical Care patient: No
--- NOTE | 2017-04-06 17:29 | DS ---
Physical Exam: HOSPITAL COURSE: Date of Admission:04/06/17 Date of Discharge: 04/06/17 Called because patient wanted to sign out AMA. Prior to arriving to the ED, patient had eloped. I was unable to discuss risks and benefits of leaving against medical advice with the patient. Minutes to complete discharge: 15 Discharge Summary Reason For Visit: LIGHTHEADEDNESS Current Active Problems Lightheadedness (Acute) Condition: Good - Instructions Referrals: Angela Barahona [Primary Care Provider] - - Home Medications Comprehensive Discharge Medication List: Ambulatory Orders Alprazolam 0.25 mg PO BID PRN 08/29/16 Amitriptyline HCl [Elavil -] 50 mg PO HS 08/29/16 Ascorbic Acid [Vitamin C -] 500 mg PO DAILY 08/29/16 Atorvastatin Ca [Lipitor] 10 mg PO HS 08/29/16 Ferrous Sulfate 325 mg PO BID 08/29/16 Furosemide [Lasix] 20 mg PO DAILY 08/29/16 Glipizide [Glipizide ER] 2.5 mg PO DAILY 08/29/16 Metoprolol Tartrate 100 mg PO BID 08/29/16 Nifedipine ER [Procardia XL -] 60 mg PO BID 08/29/16 Aspirin Coated [Ecotrin -] 81 mg PO DAILY tablet.ec 09/15/16 Isosorbide Mononitrate [Imdur -] 30 mg PO DAILY 04/06/17 This patient is new to me today: Yes Date on this admission: 04/06/17 Emergency Visit: Yes ED Registration Date: 04/06/17 Care time: The patient presented to the Emergency Department on the above date and was hospitalized for further evaluation of their emergent condition. Critical Care patient: No - Discharge Referral Referred to [facility] Med [facility] No
--- NOTE | 2017-04-06 17:31 | PN ---
Teaching Attending Note Name of Resident: Jonathan Mejia ATTENDING PHYSICIAN STATEMENT I saw and evaluated the patient. I reviewed the resident's note and discussed the case with the resident. I agree with the resident's findings and plan as documented. SUBJECTIVE:pt eloped prior to my evaluation. OBJECTIVE: ASSESSMENT AND PLAN:
[2017-04-06 18:24] VITALS: BP 160/60; PULSE 61; TEMP 98.2
[2017-04-06 18:27] VITALS: BMI 22.4
== END 2017-04-06 22:00 | disposition left against medical advice (07) ==
LOC: JER 08:44 → JERBED 15:19 → J8W 17:45
PROVIDERS: ADMIT Internal Medicine; ATTEND Internal Medicine
PROC: 3E0337Z Introduction of Electrolytic and Water Balance Substance into Peripheral Vein, Percutaneous Approach (ICD-10-PCS; principal; 2017-04-06)
DX: R42 Dizziness and giddiness (principal); E86.9 Volume depletion, unspecified; I10 Essential (primary) hypertension; E11.9 Type 2 diabetes mellitus without complications; E78.00 Pure hypercholesterolemia, unspecified; I73.9 Peripheral vascular disease, unspecified; D64.9 Anemia, unspecified; F17.210 Nicotine dependence, cigarettes, uncomplicated; Z91.013 Allergy to seafood; Z88.0 Allergy status to penicillin
CPT/HCPCS: 36415; 80048; 81003; 81015; 85027; 93005; 93010; 99284-25; G0378

== ENCOUNTER 2017-06-26 13:30 | Inpatient (IN) | payer OTHER ==
[2017-06-26] MEDS ORDERED: SODIUM CHLORIDE 500 ML IV STA (14:14)
--- NOTE | 2017-06-26 15:05 | PDOC ---
History of Present Illness - General Chief Complaint: Diarrhea Stated Complaint: DIARRHEA Time Seen by Provider: 06/26/17 13:44 History Source: Patient Exam Limitations: No Limitations - History of Present Illness Initial Comments: 06/26/17 15:04 Patient is a 81F with history of bronchitis, HTN, NIDDM, cellulitis, rheumatic fever and osteomyelitis here today complaining of diarrhea for the past 7-10 days with associated weakness. Patient states that she has had problems with diarrhea for about a year since having an ERCP that was complicated by respiratory failure after extubation, but the diarrhea has gotten worse recently. The patient took levaquin for bronchitis about three weeks ago. She says that she has a mild amount of abdominal pain before having a bowel movement that resolves with having a bowel movement. She denies blood and melena in stool. She denies shortness of breath, chest pain, orthopnea and increased swelling in legs. Past History - Past Medical History Allergies/Adverse Reactions: Allergies Allergy/AdvReac Type Severity Reaction Status Date / Time iodine Allergy Rash Verified 06/26/17 13:33 penicillin V Allergy Verified 06/26/17 13:33 shellfish derived Allergy Rash Verified 06/26/17 13:33 vancomycin Allergy Verified 06/26/17 13:33 azithromycin AdvReac Verified 06/26/17 13:33 Home Medications: Ambulatory Orders Alprazolam 0.25 mg PO BID PRN 08/29/16 Amitriptyline HCl [Elavil -] 50 mg PO HS PRN 08/29/16 Ascorbic Acid [Vitamin C -] 500 mg PO DAILY 08/29/16 Atorvastatin Ca [Lipitor] 10 mg PO HS 08/29/16 Ferrous Sulfate 325 mg PO BID 08/29/16 Furosemide [Lasix] 20 mg PO DAILY 08/29/16 Glipizide [Glipizide ER] 2.5 mg PO ACDIN 08/29/16 Metoprolol Tartrate 100 mg PO BID 08/29/16 Nifedipine ER [Procardia XL -] 60 mg PO BID 08/29/16 Aspirin Coated [Ecotrin -] 81 mg PO DAILY tablet.ec 09/15/16 Isosorbide Mononitrate [Imdur -] 30 mg PO DAILY 04/06/17 Anemia: Yes Asthma: No Cancer: No Cardiac Disorders: Yes (PAD) CVA: No COPD: No CHF: No DVT: No Dementia: No Diabetes: Yes GI Disorders: No Disorders: No HTN: Yes Hypercholesterolemia: Yes Liver Disease: No Seizures: No Thyroid Disease: No - Surgical History Abdominal Surgery: No Appendectomy: No Cardiac Surgery: Yes (FEMORAL BYPASS) Cholecystectomy: Yes Lung Surgery: No Neurologic Surgery: No Orthopedic Surgery: No - Family Disease History Family Disease History: CA: Father (lung), Brother, Sister - Immunization History Immunization Up to Date: Yes - Suicide/Smoking/Psychosocial Hx Smoking Status: Yes Smoking History: Current every day smoker Have you smoked in the past 12 months: Yes Number of Cigarettes Smoked Daily: 20 If you are a former smoker, when did you quit?: 08/10/2012 Cigars Per Day: 0 Information on smoking cessation initiated: No 'Breaking Loose' booklet given: 10/13/15 Hx Alcohol Use: No Drug/Substance Use Hx: No Substance Use Type: None Hx Substance Use Treatment: No Review of Systems - Review of Systems Comments:: 06/26/17 15:18 GENERAL/CONSTITUTIONAL: No fever or chills. Positive for weakness HEAD, EYES, EARS, NOSE AND THROAT: No change in vision. No ear pain or discharge. No sore throat. CARDIOVASCULAR: No chest pain or shortness of breath RESPIRATORY: No cough, wheezing, or hemoptysis. GASTROINTESTINAL: No vomiting, or constipation. Positive for nausea and diarrhea GENITOURINARY: No dysuria, frequency, or change in urination. MUSCULOSKELETAL: No joint or muscle swelling or pain. No neck or back pain. SKIN: No rash NEUROLOGIC: No headache, vertigo, loss of consciousness, or change in strength/ sensation. ENDOCRINE: No increased thirst. No abnormal weight change ALLERGIC/IMMUNOLOGIC: No hives or skin allergy. *Physical Exam - Vital Signs Last Vital Signs Temp Pulse Resp BP Pulse Ox 97.4 F L 79 18 181/82 100 06/26/17 13:30 06/26/17 13:30 06/26/17 13:30 06/26/17 13:30 06/26/17 13:30 - Physical Exam Comments: 06/26/17 15:20 GENERAL: Awake, alert, and fully oriented, in no acute distress HEAD: No signs of trauma, normocephalic, atraumatic EYES: PERRLA, EOMI, sclera anicteric, conjunctiva clear ENT: Auricles normal inspection, hearing grossly normal, nares patent, oropharynx clear without exudates. Dry mucosa NECK: Normal ROM, supple, no lymphadenopathy, JVD, or masses LUNGS: No distress, speaks full sentences, clear to auscultation bilaterally HEART: Regular rate and rhythm, normal S1 and S2, no murmurs, rubs or gallops, peripheral pulses normal and equal bilaterally. ABDOMEN: Soft, nontender, normoactive bowel sounds. No guarding, no rebound. No masses EXTREMITIES: Normal inspection, Normal range of motion, no edema. No clubbing or cyanosis. NEUROLOGICAL: Cranial nerves II through XII grossly intact. Normal speech, no focal sensorimotor deficits SKIN: Warm, Dry, normal turgor, no rashes or lesions noted. ED Treatment Course - LABORATORY CBC & Chemistry Diagram: 06/26/17 15:38 06/26/17 15:38 - RADIOLOGY Radiology Studies Ordered: Category Date Time Status CHEST X-RAY PORTABLE* [RAD] Stat Radiology 06/26/17 14:19 Ordered Medical Decision Making - Medical Decision Making 06/26/17 15:21 Patient is a 81F with history of bronchitis, HTN, NIDDM, cellulitis, rheumatic fever and osteomyelitis here today complaining of diarrhea for the past 7-10 days with associated weakness. Vital signs stable. BP elevated to 181/82, but appears dry. Unsure of etiology of diarrhea, but have concern for c. diff due to recent antibiotic use. Concern for patient's fluid status given patient is on diuretic, has diarrhea, and appears dry. Will assess for ACS due to diabetic , woman, and weakness. 06/26/17 15:26 EKG shows normal rate and rhythm. No st elevations, no t-wave inversions. ME and QTc intervals normal. Reassuring EKG. 06/26/17 15:55 CXR shows no acute cardiopulmonary process. 06/26/17 16:49 Laboratory Tests 06/26/17 06/26/17 06/26/17 15:38 15:38 15:38 WBC 12.4 H D Hgb 11.3 Hct 33.4 Plt Count 465 H INR 0.94 BUN Creatinine Troponin I < 0.02 06/26/17 15:38 WBC Hgb Hct Plt Count INR BUN 22 H D Creatinine 3.1 H Troponin I CBC shows white count of 12.4. INR is normal, trop negative. Cr is 3.1, baseline seems to hover around 2.5 on prior visits. C diff pending. Will treat with metro empirically. Will admit to inpatient under Dr Barahona. *DC/Admit/Observation/Transfer Diagnosis at time of Disposition: Diarrhea - Discharge Dispostion Condition at time of disposition: Stable Admit: Yes
[2017-06-26 15:50] LABS: BASOPHIL 1.4 % (0-2.0); EOSINOPHIL 4.4 % (0-4.5); MCH 30.5 pg (25.7-33.7); MCHC 33.8 g/dl (32.0-36.0); MEAN CELL VOLUME 90.2 fl (80-96); MEAN PLT VOLUME 7.8 fl (7.5-11.1); NEUTROPHILS 64.5 % (42.8-82.8); PLATELET COUNT 465 K/MM3 (134-434); RDW 12.7 % (11.6-15.6); WHITE BLOOD COUNT 12.4 K/mm3 (4.0-10.0)
[2017-06-26 16:22] LABS: ALBUMIN 2.8 g/dl (3.4-5.0); ALK PHOS 87 U/L (45-117); ANION GAP 10 (8-16); BILIRUBIN,TOTAL 0.2 mg/dL (0.2-1.0); CALCIUM 7.8 mg/dL (8.5-10.1); CO2 22 mmol/L (21-32); CREATININE 3.1 mg/dL (0.55-1.02); GLUCOSE,RANDOM 165 mg/dL (74-106); SGOT/AST 15 U/L (15-37); SGPT/ALT 17 U/L (12-78); TOT PROT 6.9 g/dl (6.4-8.2)
[2017-06-26 16:25] LABS: CPK 163 IU/L (26-192); TROPONIN I < 0.02 ng/ml (0.00-0.05)
[2017-06-26 16:36] LABS: INR 0.94 (0.82-1.09); PROTHROMBIN TIME (PATIENT) 10.6 SEC (9.98-11.88)
[2017-06-26] MEDS ORDERED: metroNIDAZOLE 250 MG TABLET PO ONE (16:57)
[2017-06-26] MEDS ORDERED: metroNIDAZOLE 250 MG TABLET ONE (17:47)
[2017-06-26] MEDS ORDERED: SODIUM CHLORIDE 1,000 ML IV SCH (22:15)
[2017-06-26 22:35] VITALS: BMI 22.6
[2017-06-26] MEDS: glipiZIDE 5 MG TABLET (FP) PO SCH (23:05)
[2017-06-26] MEDS: ALPRAZolam 0.25 MG TABLET PO PRN (23:05)
[2017-06-26] MEDS: AMITRIPTYLINE HCL 25 MG TABLET (FP) PO PRN (23:10)
[2017-06-27] MEDS: METRONIDAZOLE 500 MG PREMIXED 100 ML IVPB SCH ×3 (01:21→17:41)
[2017-06-27 02:20] LABS: URINE APPEARANCE CLEAR; URINE BILIRUBIN NEGATIVE (NEGATIVE); URINE BLOOD TRACE-INTA (NEGATIVE); URINE COLOR LT. YELLOW; URINE GLUCOSE (UA) 1+ (NEGATIVE); URINE KETONE NEGATIVE (NEGATIVE); URINE NITRITE NEGATIVE (NEGATIVE); URINE UROBILINOGEN 0.2 mg/dL (0.2-1.0)
[2017-06-27 02:22] LABS: URINE PROTEIN 3+ (NEGATIVE)
[2017-06-27 02:37] LABS: URINE BACTERIA RARE /hpf (NONE SEEN); URINE HYALINE CAST 72 /lpf; URINE MUCUS RARE; URINE RBC 21 /hpf (0-3); URINE WBC 11 /hpf (3-5)
--- NOTE | 2017-06-27 06:27 | HP ---
Admitting History and Physical - Primary Care Physician PCP: Angela Barahona - Admission Chief Complaint: diarrhea, weakness History of Present Illness: Patient is a 81F with history of bronchitis, HTN, NIDDM, cellulitis, rheumatic fever and osteomyelitis complaining of diarrhea for the past 7-10 days with associated weakness. Patient states that she has had problems with diarrhea for about a year since having an ERCP that was complicated by respiratory failure after extubation, but the diarrhea has gotten worse recently. The patient took levaquin for bronchitis about three weeks ago. She says that she has a mild amount of abdominal pain before having a bowel movement that resolves with having a bowel movement. She denies blood and melena in stool. She denies shortness of breath, chest pain, orthopnea and increased swelling in legs. History Source: Patient, Medical Record Limitations to Obtaining History: No Limitations - Past Medical History Cardiovascular: Yes: HTN, Hyperlipdemia, Murmur, Other (PAD) Pulmonary: Yes: Asthma, COPD Hepatobiliary: Yes: Cholelithiasis ...: No Heme/Onc: Yes: Anemia Infectious Disease: Yes: Other (history of osteomyelitis in the past) Endocrine: Yes: Diabetes Mellitus - Past Surgical History Past Surgical History: Yes: Amputation (1-st R toe amputation), Bypass (Right fem pop bypass) - Smoking History Smoking history: Current every day smoker Have you smoked in the past 12 months: Yes Aproximately how many cigarettes per day: 20 If you are a former smoker, when did you quit?: 08/10/2012 - Alcohol/Substance Use Hx Alcohol Use: No History of Substance Use: reports: None - Social History Usual Living Arrangement: Yes: Alone ADL: Independent 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, 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, 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 Travel: No Home Medications - Allergies Allergies/Adverse Reactions: Allergies Allergy/AdvReac Type Severity Reaction Status Date / Time iodine Allergy Rash Verified 06/26/17 13:33 penicillin V Allergy Verified 06/26/17 13:33 shellfish derived Allergy Rash Verified 06/26/17 13:33 vancomycin Allergy Verified 06/26/17 13:33 azithromycin AdvReac Verified 06/26/17 13:33 - Home Medications Home Medications: Ambulatory Orders Alprazolam 0.25 mg PO BID PRN 08/29/16 Amitriptyline HCl [Elavil -] 50 mg PO HS PRN 08/29/16 Atorvastatin Ca [Lipitor] 10 mg PO HS 08/29/16 Ferrous Sulfate 325 mg PO BID 08/29/16 Furosemide [Lasix] 20 mg PO DAILY 08/29/16 Glipizide [Glipizide ER] 2.5 mg PO HS PRN 08/29/16 Metoprolol Tartrate 100 mg PO BID 08/29/16 Nifedipine ER [Procardia XL -] 60 mg PO BID 08/29/16 Aspirin Coated [Ecotrin -] 81 mg PO DAILY tablet.ec 09/15/16 Isosorbide Mononitrate [Imdur -] 30 mg PO DAILY 04/06/17 Glipizide 2.5 mg PO HS 06/26/17 Glipizide 5 mg PO DAILY 06/26/17 Family Disease History - Family Disease History Family Disease History: CA: Father (lung ca), Mother (, lung ca), Sister (lung ca) Review of Systems - Review of Systems Constitutional: reports: Loss of Appetite, Weakness. denies: Chills, Fever, Lethargy Eyes: denies: Blind Spots, Blurred Vision HENT: denies: Difficult Swallowing, Ear Pain, Epistaxis Neck: denies: Stiffness, Tenderness Cardiovascular: denies: Chest Pain, Shortness of Breath Respiratory: denies: Cough, SOB Gastrointestinal: reports: Abdominal Pain, Diarrhea, Indigestion. denies: Vomiting, Vomiting Blood Genitourinary: denies: Dysuria, Flank Pain, Hematuria Musculoskeletal: denies: Back Pain, Extremity Pain Integumentary: denies: Eczema, Erythema, Wound Neurological: reports: Weakness (general). denies: Change in LOC, Change in Speech, Confusion, Dizziness, Seizure, Syncope, Tremors, Unsteady Gait Endocrine: denies: Excessive Sweating, Flushing Hematology/Lymphatic: denies: Easily Bruised, Excessive Bleeding Psychiatric: denies: Altered Sleep Pattern, Anxiety, Depression, Suicidal Physical Examination Vital Signs: Vital Signs Temperature 98.3 F 06/27/17 05:28 Pulse Rate 76 06/27/17 05:28 Respiratory Rate 20 06/27/17 05:28 Blood Pressure 152/69 06/27/17 05:28 O2 Sat by Pulse Oximetry (%) 98 06/26/17 22:02 Constitutional: Yes: No Distress, Calm Eyes: Yes: Conjunctiva Clear HENT: Yes: Atraumatic Neck: Yes: Supple Cardiovascular: Yes: Regular Rate and Rhythm Respiratory: Yes: CTA Bilaterally Gastrointestinal: Yes: Soft. No: Distention, Tenderness Renal/: No: CVA Tenderness - Left, CVA Tenderness - Right, Hematuria Musculoskeletal: No: Joint Stiffness, Joint Swelling Extremities: No: Cold, Cool, Cyanosis Edema: No Integumentary: No: Rash, Venous Stasis Changes Neurological: Yes: WNL, Alert, Oriented ...Motor Strength: WNL Psychiatric: Yes: WNL, Alert, Oriented. No: Agitated, Suicidal Ideation Imaging - Results Chest X-ray: Report Reviewed Other: Report Reviewed Assessment/Plan Patient is a 81F with history of bronchitis, HTN, NIDDM, cellulitis, rheumatic fever and osteomyelitis admitted with intractable diarrhea with associated weakness. Dehydration, ARF admit; IVF; IV flagyl; check CDiff GI eval renal eval DM control falls decubs DVT PFX d/w pt and staff
[2017-06-27] MEDS: glipiZIDE 5 MG TABLET (FP) PO SCH ×2 (06:48→21:48)
[2017-06-27 07:28] LABS: BASOPHIL 1.3 % (0-2.0); EOSINOPHIL 5.4 % (0-4.5); MCH 30.8 pg (25.7-33.7); MEAN CELL VOLUME 90.6 fl (80-96); MEAN PLT VOLUME 7.8 fl (7.5-11.1); NEUTROPHILS 54.4 % (42.8-82.8); PLATELET COUNT 370 K/MM3 (134-434); RDW 12.8 % (11.6-15.6); WHITE BLOOD COUNT 9.5 K/mm3 (4.0-10.0)
[2017-06-27 07:46] LABS: ALBUMIN 2.5 g/dl (3.4-5.0); ANION GAP 8 (8-16); CALCIUM 7.4 mg/dL (8.5-10.1); CO2 22 mmol/L (21-32); GLUCOSE,RANDOM 137 mg/dL (74-106)
[2017-06-27 07:59] LABS: ALK PHOS 79 U/L (45-117); BILIRUBIN,TOTAL 0.2 mg/dL (0.2-1.0); SGOT/AST 12 U/L (15-37); SGPT/ALT 15 U/L (12-78); THYROID STIMULATING HORMONE 3.83 uIU/ml (0.358-3.74)
[2017-06-27 09:03] LABS: URINE LEUK ESTERASE Negative (NEGATIVE)
[2017-06-27] MEDS ORDERED: FUROSEMIDE 20 MG TABLET (FP) PO SCH (10:00)
[2017-06-27] MEDS ORDERED: PT OWN MED DRAWER 7, Y5N ONE (11:38)
[2017-06-27] MEDS: NIFEdipine E.R 60 MG TABLET (UD) PO SCH ×2 (11:41→21:48)
[2017-06-27] MEDS: HEPARIN NA (PORCINE) 5,000 UNITS/ML 1ML VIAL SQ SCH ×2 (11:41→21:48)
[2017-06-27] MEDS: ISOSORBIDE MONONITRATE 30 MG TAB.SR.24H (FP) PO SCH (11:41)
[2017-06-27] MEDS: METOPROLOL TARTRATE 50 MG TABLET (FP) PO SCH ×2 (11:41→21:48)
[2017-06-27] MEDS: ASPIRIN COATED 81 MG TABLET.EC PO SCH (11:42)
[2017-06-27] MEDS: FERROUS SO4 325 MG TABLET (FP) PO SCH ×2 (11:42→21:48)
--- NOTE | 2017-06-27 14:44 | CON.GI ---
Consult Consult Specialty:: gastroenterology Referred by:: Dr Barahona - History of Present Illness History of Present Illness: 81 y/o female with PMH of cholecystectomy has 1 year history of chronic diarrhea. She denies weight loss and abdominal pain. She had a colonoscopy 2 years ago. - Past Medical History Cardio/Vascular: Yes: HTN, Hyperlipdemia, Murmur, Other (PAD) Pulmonary: Yes: Asthma, COPD Hepatobiliary: Yes: Cholelithiasis ...: No Infectious Disease: Yes: Other (history of osteomyelitis in the past) Endocrine: Yes: Diabetes Mellitus - Past Surgical History Past Surgical History: Yes: Amputation (1-st R toe amputation), Bypass (Right fem pop bypass) - Alcohol/Substance Use Hx Alcohol Use: No History of Substance Use: reports: None - Smoking History Smoking history: Current every day smoker Have you smoked in the past 12 months: Yes Aproximately how many cigarettes per day: 20 If you are a former smoker, when did you quit?: 08/10/2012 - Social History Usual Living Arrangement: Alone ADL: Independent 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, 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, 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 Travel: No Home 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 - Allergies Allergies/Adverse Reactions: Allergies Allergy/AdvReac Type Severity Reaction Status Date / Time iodine Allergy Rash Verified 06/26/17 13:33 penicillin V Allergy Verified 06/26/17 13:33 shellfish derived Allergy Rash Verified 06/26/17 13:33 vancomycin Allergy Verified 06/26/17 13:33 azithromycin AdvReac Verified 06/26/17 13:33 - Home Medications Home Medications: Ambulatory Orders Alprazolam 0.25 mg PO BID PRN 08/29/16 Amitriptyline HCl [Elavil -] 50 mg PO HS PRN 08/29/16 Atorvastatin Ca [Lipitor] 10 mg PO HS 08/29/16 Ferrous Sulfate 325 mg PO BID 08/29/16 Furosemide [Lasix] 20 mg PO DAILY 08/29/16 Glipizide [Glipizide ER] 2.5 mg PO HS PRN 08/29/16 Metoprolol Tartrate 100 mg PO BID 08/29/16 Nifedipine ER [Procardia XL -] 60 mg PO BID 08/29/16 Aspirin Coated [Ecotrin -] 81 mg PO DAILY tablet.ec 09/15/16 Isosorbide Mononitrate [Imdur -] 30 mg PO DAILY 04/06/17 Glipizide 2.5 mg PO HS 06/26/17 Glipizide 5 mg PO DAILY 06/26/17 Family Disease History - Family Disease History Family History: Denies (denies colon and gastric cancer) Family Disease History: CA: Father (lung ca), Mother (, lung ca), Sister (lung ca) Review of Systems - Review of Systems Constitutional: denies: No Symptoms, Chills, Diaphoresis, Fever, Lethargy, Loss of Appetite, Malaise, Night Sweats, Unintentional Wgt. Loss, Weakness, Other Eyes: denies: No Symptoms, Blind Spots, Blurred Vision, Double Vision, Eye Pain , Floaters, Photophobia, Recent Change in Vision, Other HENT: denies: No Symptoms, Difficult Swallowing, Ear Discharge, Ear Pain, Epistaxis, Gingival Bleeding, Hearing Loss, Mouth Swelling, Nasal Congestion, Ocular Prosthesis, Throat Pain, Toothache, Ringing in Ears, Other Neck: denies: No Symptoms, Decreased ROM, Lumps, Pain on Movement, Stiffness, Swollen Glands, Tenderness, Other Gastrointestinal: reports: Diarrhea Physical Exam-GI Vital Signs: Vital Signs Temperature 97.2 F L 06/27/17 11:51 Pulse Rate 79 06/27/17 11:51 Respiratory Rate 18 06/27/17 11:51 Blood Pressure 153/81 06/27/17 11:51 O2 Sat by Pulse Oximetry (%) 98 06/26/17 22:02 Constitutional: Yes: Well Nourished Eyes: Yes: Conjunctiva Clear HENT: Yes: Atraumatic Neck: Yes: Supple Cardiovascular: Yes: Regular Rate and Rhythm Respiratory: Yes: CTA Bilaterally ...Palpate: Yes: Soft. No: Firm/Rigid, Guarding, Hepatomegaly, Mass, Pulsatile Mass, Splenomegaly, Tenderness, Tenderness, Epigastium Labs: CBC, BMP 06/27/17 06:00 06/27/17 06:00 INR, PTT INR 0.94 (0.82-1.09) 06/26/17 15:38 Hepatic Panel Total Bilirubin 0.2 mg/dL (0.2-1.0) 06/27/17 06:00 AST 12 U/L (15-37) L 06/27/17 06:00 ALT 15 U/L (12-78) 06/27/17 06:00 Alkaline Phosphatase 79 U/L (45-117) 06/27/17 06:00 Albumin 2.5 g/dl (3.4-5.0) L 06/27/17 06:00 Problem List - Problems (1) Chronic diarrhea Assessment/Plan: r/o bile acid diarrhea vs infectious > stool for calprotectin stool for c.diff low residue lactose free diet made aware to follow -up Questran 4 grams in 8 oz of water daily Code(s): K52.9 - NONINFECTIVE GASTROENTERITIS AND COLITIS, UNSPECIFIED
--- NOTE | 2017-06-27 16:40 | CON.NEP ---
Consult Consult Specialty:: Nephrology Referred by:: Dr. Barahona Reason for Consultation:: AGUSTÍN on CKD - History of Present Illness Chief Complaint: Diarrhea History of Present Illness: This is a 81 year old woman with PMhx of 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 Cr noted to be 3. Denies any NSAID use. No recent contrast exposure. Making urine. No symptoms of retention. NO rash, no recent abx use. - History Source History Provided By: Patient Limitations to Obtaining History: No Limitations - Past Medical History Cardio/Vascular: Yes: HTN, Hyperlipdemia, Murmur, Other (PAD) Pulmonary: Yes: Asthma, COPD Hepatobiliary: Yes: Cholelithiasis Renal/: Yes: Renal Inusuff ...: No Infectious Disease: Yes: Other (history of osteomyelitis in the past) Endocrine: Yes: Diabetes Mellitus - Past Surgical History Past Surgical History: Yes: Amputation (1-st R toe amputation), Bypass (Right fem pop bypass) - Alcohol/Substance Use Hx Alcohol Use: No History of Substance Use: reports: None - Smoking History Smoking history: Current every day smoker Have you smoked in the past 12 months: Yes Aproximately how many cigarettes per day: 20 If you are a former smoker, when did you quit?: 08/10/2012 - Social History Usual Living Arrangement: Alone ADL: Independent 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, 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, 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 Travel: No Home 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 - Allergies Allergies/Adverse Reactions: Allergies Allergy/AdvReac Type Severity Reaction Status Date / Time iodine Allergy Rash Verified 06/26/17 13:33 penicillin V Allergy Verified 06/26/17 13:33 shellfish derived Allergy Rash Verified 06/26/17 13:33 vancomycin Allergy Verified 06/26/17 13:33 azithromycin AdvReac Verified 06/26/17 13:33 - Home Medications Home Medications: Ambulatory Orders Alprazolam 0.25 mg PO BID PRN 08/29/16 Amitriptyline HCl [Elavil -] 50 mg PO HS PRN 08/29/16 Atorvastatin Ca [Lipitor] 10 mg PO HS 08/29/16 Ferrous Sulfate 325 mg PO BID 08/29/16 Furosemide [Lasix] 20 mg PO DAILY 08/29/16 Glipizide [Glipizide ER] 2.5 mg PO HS PRN 08/29/16 Metoprolol Tartrate 100 mg PO BID 08/29/16 Nifedipine ER [Procardia XL -] 60 mg PO BID 08/29/16 Aspirin Coated [Ecotrin -] 81 mg PO DAILY tablet.ec 09/15/16 Isosorbide Mononitrate [Imdur -] 30 mg PO DAILY 04/06/17 Glipizide 2.5 mg PO HS 06/26/17 Glipizide 5 mg PO DAILY 06/26/17 Family Disease History - Family Disease History Family Disease History: CA: Father (lung ca), Mother (, lung ca), Sister (lung ca) Review of Systems - Review of Systems Constitutional: reports: Lethargy, Loss of Appetite Eyes: reports: No Symptoms HENT: reports: No Symptoms Neck: reports: No Symptoms Cardiovascular: reports: No Symptoms Respiratory: reports: No Symptoms Gastrointestinal: reports: Diarrhea. denies: Abdominal Pain Genitourinary: reports: No Symptoms Musculoskeletal: reports: No Symptoms Integumentary: reports: No Symptoms Neurological: reports: No Symptoms Nephrology Consult - Height Height: 5 ft 3 in - Weight Weight: 127 lb 9.6 oz - BMI Body Mass Index (BMI): 22.6 - Lab Results CBC,BMP: CBC, BMP 06/27/17 06:00 06/27/17 06:00 Anion Gap: Anion Gap Anion Gap 8 (8-16) 06/27/17 06:00 - Imaging Chest X-ray: Report Reviewed - Physical Examination Vital Signs: Vital Signs Temperature 98.0 F 06/27/17 15:13 Pulse Rate 57 L 06/27/17 15:13 Respiratory Rate 18 06/27/17 15:13 Blood Pressure 111/50 06/27/17 15:13 O2 Sat by Pulse Oximetry (%) 98 06/26/17 22:02 Assessment/Plan 81 year old woman with PMhx of 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 Cr noted to be 3. 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
[2017-06-27] MEDS: CHOLESTYRAMINE/ASPARTAME 4 GM PACKET PO SCH (17:42)
[2017-06-27] MEDS: SODIUM CHLORIDE 1,000 ML IV SCH (17:43)
[2017-06-27] MEDS: AMITRIPTYLINE HCL 25 MG TABLET (FP) PO PRN (21:48)
[2017-06-27] MEDS: ATORVASTATIN CA 10 MG TABLET (FP) PO SCH (21:48)
[2017-06-27] MEDS: ALPRAZolam 0.25 MG TABLET PO PRN (23:48)
[2017-06-28] MEDS: METRONIDAZOLE 500 MG PREMIXED 100 ML IVPB SCH (01:17)
[2017-06-28 08:15] LABS: BASOPHIL 1.2 % (0-2.0); EOSINOPHIL 6.6 % (0-4.5); MCH 30.4 pg (25.7-33.7); MCHC 33.4 g/dl (32.0-36.0); MEAN PLT VOLUME 8.1 fl (7.5-11.1); NEUTROPHILS 58.1 % (42.8-82.8); PLATELET COUNT 398 K/MM3 (134-434); RDW 13.1 % (11.6-15.6); WHITE BLOOD COUNT 9.9 K/mm3 (4.0-10.0)
[2017-06-28 08:52] LABS: ALBUMIN 2.6 g/dl (3.4-5.0); ANION GAP 10 (8-16); CALCIUM 7.2 mg/dL (8.5-10.1); CO2 18 mmol/L (21-32); GLUCOSE,RANDOM 144 mg/dL (74-106); MAGNESIUM 1.6 mg/dL (1.8-2.4); PHOSPHOROUS 4.1 mg/dL (2.5-4.9); SGOT/AST 12 U/L (15-37); SGPT/ALT 12 U/L (12-78)
[2017-06-28 08:54] LABS: ALK PHOS 76 U/L (45-117); BILIRUBIN,TOTAL 0.1 mg/dL (0.2-1.0); TOT PROT 5.9 g/dl (6.4-8.2)
[2017-06-28] MEDS ORDERED: PT OWN MED DRAWER 7, Y5N ONE (09:44)
[2017-06-28] MEDS: HEPARIN NA (PORCINE) 5,000 UNITS/ML 1ML VIAL SQ SCH ×2 (09:50→22:06)
[2017-06-28] MEDS: ISOSORBIDE MONONITRATE 30 MG TAB.SR.24H (FP) PO SCH (09:51)
[2017-06-28] MEDS: metroNIDAZOLE 250 MG TABLET PO SCH ×3 (09:51→22:07)
[2017-06-28] MEDS: FERROUS SO4 325 MG TABLET (FP) PO SCH ×2 (09:51→22:07)
[2017-06-28] MEDS: METOPROLOL TARTRATE 50 MG TABLET (FP) PO SCH ×2 (09:51→22:07)
[2017-06-28] MEDS: ASPIRIN COATED 81 MG TABLET.EC PO SCH (09:51)
[2017-06-28] MEDS: NIFEdipine E.R 60 MG TABLET (UD) PO SCH ×2 (09:51→22:07)
[2017-06-28] MEDS: CHOLESTYRAMINE/ASPARTAME 4 GM PACKET PO SCH (09:51)
--- NOTE | 2017-06-28 11:43 | PN ---
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 and meaning goes outside few times a day to smoke, advised to stop - Current Medication List Current Medications: Active Medications Alprazolam (Xanax -) 0.25 mg PO BID PRN PRN Reason: ANXIETY Last Admin: 06/27/17 23:48 Dose: 0.25 mg Amitriptyline HCl (Elavil -) 50 mg PO HS PRN PRN Reason: INSOMNIA Last Admin: 06/27/17 21:48 Dose: 50 mg Aspirin (Ecotrin -) 81 mg PO DAILY [facility] Last Admin: 06/28/17 09:51 Dose: 81 mg Atorvastatin Calcium (Lipitor -) 10 mg PO HS [facility] Last Admin: 06/27/17 21:48 Dose: 10 mg Cholestyramine Resin (Questran Light Packet -) 4 gm PO DAILY [facility] Last Admin: 06/28/17 09:51 Dose: 4 gm Ferrous Sulfate (Feosol -) 325 mg PO BID [facility] Last Admin: 06/28/17 09:51 Dose: 325 mg Glipizide (Glucotrol -) 5 mg PO DAILY@0700 [facility] Last Admin: 06/27/17 06:48 Dose: 5 mg Glipizide (Glucotrol -) 2.5 mg PO HS [facility] Last Admin: 06/27/17 21:48 Dose: 2.5 mg Heparin Sodium (Porcine) (Heparin -) 5,000 unit SQ BID [facility] Last Admin: 06/28/17 09:50 Dose: 5,000 unit Sodium Chloride (Normal Saline -) 1,000 mls @ 75 mls/hr IV ASDIR [facility] Last Admin: 06/27/17 17:43 Dose: Not Given Isosorbide Mononitrate (Imdur -) 30 mg PO DAILY [facility] Last Admin: 06/28/17 09:51 Dose: 30 mg Metoprolol Tartrate (Lopressor -) 100 mg PO BID [facility] Last Admin: 06/28/17 09:51 Dose: 100 mg Metronidazole (Flagyl -) 500 mg PO TID [facility] Last Admin: 06/28/17 09:51 Dose: 500 mg Nifedipine (Procardia Xl -) 60 mg PO BID [facility] Last Admin: 06/28/17 09:51 Dose: 60 mg - Objective Vital Signs: Vital Signs Temperature 98.2 F 06/27/17 22:00 Pulse Rate 88 06/27/17 22:00 Respiratory Rate 18 06/27/17 22:00 Blood Pressure 142/75 06/27/17 22:00 O2 Sat by Pulse Oximetry (%) 94 L 06/27/17 21:00 Constitutional: Yes: No Distress, Calm Eyes: Yes: Conjunctiva Clear HENT: Yes: Atraumatic Neck: Yes: Supple Cardiovascular: Yes: Regular Rate and Rhythm Respiratory: Yes: CTA Bilaterally Gastrointestinal: Yes: Soft. No: Distention, Tenderness Genitourinary: No: CVA Tenderness - Left, CVA Tenderness - Right Musculoskeletal: No: Joint Stiffness, Joint Swelling Extremities: No: Cold, Cool, Cyanosis Edema: No Peripheral Pulses WNL: Yes Integumentary: No: Rash, Venous Stasis Changes Neurological: Yes: WNL, Alert, Oriented ...Motor Strength: WNL Psychiatric: Yes: WNL, Alert, Oriented. No: Agitated, Suicidal Ideation Labs: CBC, BMP 06/28/17 07:00 06/28/17 08:00 INR, PTT INR 0.94 (0.82-1.09) 06/26/17 15:38 - ....Imaging Other: Report Reviewed Assessment/Plan Patient is a 81F with history of bronchitis, HTN, NIDDM, cellulitis, rheumatic fever and osteomyelitis admitted with intractable diarrhea with associated weakness. Dehydration, ARF CDiff Ag+ Tox- IVF; po flagyl; GI, renal f/u strongly advised stop smoking pt to sign DNR DNI DM control falls decubs DVT PFX d/w pt and staff
[2017-06-28] MEDS ORDERED: MAGNESIUM SULF 50% (8.12 MEQ/2 ML-1 GM VIAL) IVPB ONE (13:59)
--- NOTE | 2017-06-28 18:28 | PN ---
Progress Note (short form) - Note Progress Note: Renal follow up for AGUSTÍN on CKD Pt seen and examined at the bedside no acute complaints getting IVF making urine no sob, chest pain, swelling, abd pain, N/V/D Vital Signs Temperature 97.3 F L 06/28/17 14:29 Pulse Rate 63 06/28/17 14:29 Respiratory Rate 18 06/28/17 14:29 Blood Pressure 138/59 06/28/17 14:29 O2 Sat by Pulse Oximetry (%) 95 06/28/17 09:00 Intake & Output 06/25/17 06/26/17 06/27/17 06/28/17 23:59 23:59 23:59 23:59 Intake Total 725 815 Balance 725 815 Weight 127 lb 9.6 oz 127 lb 9.6 oz NAD awake and alert RRR CTA, no rales soft NT/ND No LE edema CBC, BMP 06/28/17 07:00 06/28/17 08:00 Current Medications Alprazolam (Xanax -) 0.25 mg PO BID PRN PRN Reason: ANXIETY Last Admin: 06/27/17 23:48 Dose: 0.25 mg Amitriptyline HCl (Elavil -) 50 mg PO HS PRN PRN Reason: INSOMNIA Last Admin: 06/27/17 21:48 Dose: 50 mg Aspirin (Ecotrin -) 81 mg PO DAILY [facility] Last Admin: 06/28/17 09:51 Dose: 81 mg Atorvastatin Calcium (Lipitor -) 10 mg PO HS [facility] Last Admin: 06/27/17 21:48 Dose: 10 mg Cholestyramine Resin (Questran Light Packet -) 4 gm PO DAILY [facility] Last Admin: 06/28/17 09:51 Dose: 4 gm Ferrous Sulfate (Feosol -) 325 mg PO BID [facility] Last Admin: 06/28/17 09:51 Dose: 325 mg Glipizide (Glucotrol -) 5 mg PO DAILY@0700 [facility] Last Admin: 06/27/17 06:48 Dose: 5 mg Glipizide (Glucotrol -) 2.5 mg PO HS [facility] Last Admin: 06/27/17 21:48 Dose: 2.5 mg Heparin Sodium (Porcine) (Heparin -) 5,000 unit SQ BID [facility] Last Admin: 06/28/17 09:50 Dose: 5,000 unit Sodium Chloride (Normal Saline -) 1,000 mls @ 75 mls/hr IV ASDIR [facility] Last Admin: 06/27/17 17:43 Dose: Not Given Isosorbide Mononitrate (Imdur -) 30 mg PO DAILY [facility] Last Admin: 06/28/17 09:51 Dose: 30 mg Metoprolol Tartrate (Lopressor -) 100 mg PO BID [facility] Last Admin: 06/28/17 09:51 Dose: 100 mg Metronidazole (Flagyl -) 500 mg PO TID [facility] Last Admin: 06/28/17 13:27 Dose: 500 mg Nifedipine (Procardia Xl -) 60 mg PO BID [facility] Last Admin: 06/28/17 09:51 Dose: 60 mg 81 year old woman with PMhx of 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 Cr noted to be 3. 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
[2017-06-28] MEDS: ATORVASTATIN CA 10 MG TABLET (FP) PO SCH (22:07)
[2017-06-28] MEDS: glipiZIDE 5 MG TABLET (FP) PO SCH (22:07)
[2017-06-28] MEDS: AMITRIPTYLINE HCL 25 MG TABLET (FP) PO PRN (23:41)
[2017-06-29] MEDS: glipiZIDE 5 MG TABLET (FP) PO SCH ×3 (03:11→23:28)
[2017-06-29] MEDS: metroNIDAZOLE 250 MG TABLET PO SCH ×3 (06:49→23:23)
[2017-06-29] MEDS: SODIUM CHLORIDE 1,000 ML IV SCH (06:49)
[2017-06-29 07:10] LABS: BASOPHIL 0.8 % (0-2.0); EOSINOPHIL 5.2 % (0-4.5); MCH 30.9 pg (25.7-33.7); MCHC 33.9 g/dl (32.0-36.0); MEAN CELL VOLUME 91.1 fl (80-96); MEAN PLT VOLUME 7.8 fl (7.5-11.1); NEUTROPHILS 67.3 % (42.8-82.8); PLATELET COUNT 320 K/MM3 (134-434); RDW 13.2 % (11.6-15.6); WHITE BLOOD COUNT 9.6 K/mm3 (4.0-10.0)
[2017-06-29 08:39] LABS: ALBUMIN 2.2 g/dl (3.4-5.0); ALK PHOS 62 U/L (45-117); ANION GAP 7 (8-16); BILIRUBIN,TOTAL 0.4 mg/dL (0.2-1.0); CO2 20 mmol/L (21-32); CREATININE 3.1 mg/dL (0.55-1.02); GLUCOSE,RANDOM 121 mg/dL (74-106); PHOSPHOROUS 3.6 mg/dL (2.5-4.9); SGOT/AST 10 U/L (15-37); SGPT/ALT 11 U/L (12-78); TOT PROT 5.2 g/dl (6.4-8.2)
[2017-06-29 08:52] LABS: CALCIUM 6.8 mg/dL (8.5-10.1)
[2017-06-29] MEDS ORDERED: PT OWN MED DRAWER 7, Y5N ONE (09:31)
[2017-06-29] MEDS: ASPIRIN COATED 81 MG TABLET.EC PO SCH (10:13)
[2017-06-29] MEDS: FERROUS SO4 325 MG TABLET (FP) PO SCH ×2 (10:13→23:22)
[2017-06-29] MEDS: METOPROLOL TARTRATE 50 MG TABLET (FP) PO SCH ×2 (10:13→23:22)
[2017-06-29] MEDS: CHOLESTYRAMINE/ASPARTAME 4 GM PACKET PO SCH (10:13)
[2017-06-29] MEDS: NIFEdipine E.R 60 MG TABLET (UD) PO SCH ×2 (10:13→23:22)
[2017-06-29] MEDS: ISOSORBIDE MONONITRATE 30 MG TAB.SR.24H (FP) PO SCH (10:13)
[2017-06-29] MEDS: HEPARIN NA (PORCINE) 5,000 UNITS/ML 1ML VIAL SQ SCH ×2 (10:14→23:24)
--- NOTE | 2017-06-29 12:42 | DS ---
Physical Examination Vital Signs: Vital Signs Temperature 98.1 F 06/29/17 10:00 Pulse Rate 78 06/29/17 10:00 Respiratory Rate 20 06/29/17 10:00 Blood Pressure 157/84 06/29/17 10:00 O2 Sat by Pulse Oximetry (%) 94 L 06/29/17 09:00 Findings/Remarks: still has some diarrhea but less; no abdominal pain no N/V; goes out from the floor to smoke outside few times a day despite being advised not to; wants to go home today; DC scripts and instructions d.w pt in detail t time 40 min Constitutional: Yes: No Distress, Calm Eyes: Yes: Conjunctiva Clear HENT: Yes: Atraumatic Neck: Yes: Supple Cardiovascular: Yes: Regular Rate and Rhythm Respiratory: Yes: CTA Bilaterally Gastrointestinal: Yes: Soft. No: Distention Renal/: No: CVA Tenderness - Left, CVA Tenderness - Right, Hematuria Musculoskeletal: No: Joint Stiffness, Joint Swelling Extremities: No: Cold, Cool, Cyanosis Edema: No Integumentary: No: Rash, Skin Tear, Venous Stasis Changes Neurological: Yes: WNL, Alert, Oriented ...Motor Strength: WNL Psychiatric: Yes: WNL, Alert, Oriented. No: Agitated, Suicidal Ideation Labs: CBC, BMP 06/29/17 06:00 06/29/17 06:00 Discharge Summary Reason For Visit: DIARRHEA Current Active Problems Chronic diarrhea (Acute) Diarrhea (Acute) Procedures: Principal: admitted with intractable diarrhea and dehydration Other Procedures: IVF; po flagyl for +CDiff Ag;. seen by renal dr and GI dr Hospital Course: improved with above; DC home and f/u as advised Condition: Stable - Instructions Diet, Activity, Other Instructions: f/u PCP renal and GI drs in 2-4 weeks f/u labs CBC CMP in 1-2 weeks stop smoking falls PFX RTER if worse or recurrent c/o. Referrals: Angela Barahona [Primary Care Provider] - Quentin Goyal MD [Staff Physician] - Mode Mcfarland MD [Staff Physician] - Disposition: VNS/HOME HEALTH CARE - Home Medications Comprehensive Discharge Medication List: Ambulatory Orders Alprazolam 0.25 mg PO BID PRN 08/29/16 Amitriptyline HCl [Elavil -] 50 mg PO HS PRN 08/29/16 Atorvastatin Ca [Lipitor] 10 mg PO HS 08/29/16 Ferrous Sulfate 325 mg PO BID 08/29/16 Furosemide [Lasix] 20 mg PO DAILY 08/29/16 Glipizide [Glipizide ER] 2.5 mg PO HS PRN 08/29/16 Metoprolol Tartrate 100 mg PO BID 08/29/16 Nifedipine ER [Procardia XL -] 60 mg PO BID 08/29/16 Aspirin Coated [Ecotrin -] 81 mg PO DAILY tablet.ec 09/15/16 Isosorbide Mononitrate [Imdur -] 30 mg PO DAILY 04/06/17 Glipizide 5 mg PO DAILY 06/26/17 Cholestyramine/Aspartame [Questran Light Packet -] 4 gm PO DAILY #90 packet 05/07 Metronidazole [Flagyl -] 500 mg PO TID #42 tablet 06/29/17
--- NOTE | 2017-06-29 14:35 | PN ---
GI Progress Note Subjective: saw patient yesterday, abdominal pain and diarrhea, resolved while on questran and Flagyl - Objective Vital Signs: Vital Signs Temperature 98.1 F 06/29/17 10:00 Pulse Rate 78 06/29/17 10:00 Respiratory Rate 20 06/29/17 10:00 Blood Pressure 157/84 06/29/17 10:00 O2 Sat by Pulse Oximetry (%) 94 L 06/29/17 09:00 Constitutional: Well Nourished Eyes: Yes: Conjunctiva Clear HENT: Yes: Atraumatic Neck: Yes: Supple Cardiovascular: Yes: Regular Rate and Rhythm Respiratory: Yes: CTA Bilaterally ...Palpate: Yes: Soft. No: Firm/Rigid, Guarding, Hepatomegaly, Mass, Pulsatile Mass, Splenomegaly, Tenderness Labs: CBC, BMP 06/29/17 06:00 06/29/17 06:00 INR, PTT INR 0.94 (0.82-1.09) 06/26/17 15:38 Problem List - Problems (1) Chronic diarrhea Assessment/Plan: R> continue questran and Flagyl made awre to follow -up Code(s): K52.9 - NONINFECTIVE GASTROENTERITIS AND COLITIS, UNSPECIFIED
--- NOTE | 2017-06-29 15:31 | PN ---
Progress Note (short form) - Note Progress Note: Renal follow up for AGUSTÍN on CKD Pt seen and examined at the bedside reports continued diarrhea good urine output no sob, chest pain Vital Signs Temperature 97.5 F L 06/29/17 14:49 Pulse Rate 67 06/29/17 14:49 Respiratory Rate 20 06/29/17 14:49 Blood Pressure 133/75 06/29/17 14:49 O2 Sat by Pulse Oximetry (%) 94 L 06/29/17 09:00 Intake & Output 06/26/17 06/27/17 06/28/17 06/29/17 23:59 23:59 23:59 23:59 Intake Total 975 501 4650 750 Balance 984 464 1706 750 Weight 127 lb 9.6 oz 127 lb 9.6 oz NAD awake and alert no Le edema CBC, BMP 06/29/17 06:00 06/29/17 06:00 Current Medications Alprazolam (Xanax -) 0.25 mg PO BID PRN PRN Reason: ANXIETY Last Admin: 06/27/17 23:48 Dose: 0.25 mg Amitriptyline HCl (Elavil -) 50 mg PO HS PRN PRN Reason: INSOMNIA Last Admin: 06/28/17 23:41 Dose: 50 mg Aspirin (Ecotrin -) 81 mg PO DAILY [facility] Last Admin: 06/29/17 10:13 Dose: 81 mg Atorvastatin Calcium (Lipitor -) 10 mg PO HS [facility] Last Admin: 06/28/17 22:07 Dose: 10 mg Cholestyramine Resin (Questran Light Packet -) 4 gm PO DAILY [facility] Last Admin: 06/29/17 10:13 Dose: Not Given Ferrous Sulfate (Feosol -) 325 mg PO BID [facility] Last Admin: 06/29/17 10:13 Dose: 325 mg Glipizide (Glucotrol -) 5 mg PO DAILY@0700 [facility] Last Admin: 06/29/17 06:49 Dose: 5 mg Glipizide (Glucotrol -) 2.5 mg PO HS [facility] Last Admin: 06/28/17 22:07 Dose: 2.5 mg Heparin Sodium (Porcine) (Heparin -) 5,000 unit SQ BID [facility] Last Admin: 06/29/17 10:14 Dose: Not Given Sodium Chloride (Normal Saline -) 1,000 mls @ 75 mls/hr IV ASDIR [facility] Last Admin: 06/29/17 06:49 Dose: 75 mls/hr Isosorbide Mononitrate (Imdur -) 30 mg PO DAILY [facility] Last Admin: 06/29/17 10:13 Dose: 30 mg Metoprolol Tartrate (Lopressor -) 100 mg PO BID [facility] Last Admin: 06/29/17 10:13 Dose: 100 mg Metronidazole (Flagyl -) 500 mg PO TID [facility] Last Admin: 06/29/17 13:50 Dose: 500 mg Nifedipine (Procardia Xl -) 60 mg PO BID [facility] Last Admin: 06/29/17 10:13 Dose: 60 mg 81 year old woman with PMhx of 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 Cr noted to be 3. 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
--- NOTE | 2017-06-29 18:38 | PN ---
Progress Note (short form) - Note Progress Note: came to see patient for dark stool and anemia. She is on iron for anemia. She did not have recent EGD and colonoscopy. She is ASA as an outpatient R> if there id progressive anemia will need EGD prior to discharge Problem List - Problems (1) Chronic diarrhea Code(s): K52.9 - NONINFECTIVE GASTROENTERITIS AND COLITIS, UNSPECIFIED
[2017-06-29] MEDS: PANTOPRAZOLE 40 MG TABLET (FP) PO SCH (19:31)
[2017-06-29] MEDS: ATORVASTATIN CA 10 MG TABLET (FP) PO SCH (23:24)
[2017-06-29] MEDS: AMITRIPTYLINE HCL 25 MG TABLET (FP) PO PRN (23:26)
[2017-06-30 00:06] LABS: A/G RATIO 0.8 (0.7-1.7); ALBUMIN 2.5 g/dL (2.9-4.4); GLOBULIN, TOTAL 3.2 g/dL (2.2-3.9); M-SPIKE Not Observed g/dL (Not Observed); TOTAL PROTEIN 5.7 g/dL (6.0-8.5)
[2017-06-30] MEDS: metroNIDAZOLE 250 MG TABLET PO SCH (06:29)
[2017-06-30] MEDS: glipiZIDE 5 MG TABLET (FP) PO SCH (06:30)
[2017-06-30 08:29] VITALS: BP 145/76; PULSE 78; TEMP 97.5
[2017-06-30] MEDS ORDERED: PT OWN MED DRAWER 7, Y5N ONE (09:45)
[2017-06-30] MEDS: HEPARIN NA (PORCINE) 5,000 UNITS/ML 1ML VIAL SQ SCH (09:46)
[2017-06-30] MEDS: NIFEdipine E.R 60 MG TABLET (UD) PO SCH (09:47)
[2017-06-30] MEDS: PANTOPRAZOLE 40 MG TABLET (FP) PO SCH (09:47)
[2017-06-30] MEDS: FERROUS SO4 325 MG TABLET (FP) PO SCH (09:48)
[2017-06-30] MEDS: METOPROLOL TARTRATE 50 MG TABLET (FP) PO SCH (09:48)
[2017-06-30] MEDS: ISOSORBIDE MONONITRATE 30 MG TAB.SR.24H (FP) PO SCH (09:48)
[2017-06-30] MEDS: ALPRAZolam 0.25 MG TABLET PO PRN (09:48)
[2017-06-30] MEDS: CHOLESTYRAMINE/ASPARTAME 4 GM PACKET PO SCH (09:48)
[2017-06-30 10:31] LABS: MCH 30.3 pg (25.7-33.7); MCHC 33.1 g/dl (32.0-36.0); MEAN CELL VOLUME 91.5 fl (80-96); PLATELET COUNT 361 K/MM3 (134-434); WHITE BLOOD COUNT 9.4 K/mm3 (4.0-10.0)
[2017-06-30 11:03] LABS: ALBUMIN 2.5 g/dl (3.4-5.0); ALK PHOS 67 U/L (45-117); ANION GAP 9 (8-16); BILIRUBIN,TOTAL 0.2 mg/dL (0.2-1.0); CALCIUM 7.3 mg/dL (8.5-10.1); CO2 18 mmol/L (21-32); CREATININE 3.1 mg/dL (0.55-1.02); GLUCOSE,RANDOM 248 mg/dL (74-106); SGOT/AST 15 U/L (15-37); SGPT/ALT 12 U/L (12-78); TOT PROT 5.8 g/dl (6.4-8.2)
--- NOTE | 2017-06-30 11:32 | PN ---
Progress Note, Physician Chief Complaint: was supposed to go home yesterday but still had diarrhea and GI ordered colonoscopy for today however, she feels better today and wants to go home, refused colonoscopy; will f/u with GI all scripts done d./w pt and staff; t time 40 min - Current Medication List Current Medications: Active Medications Alprazolam (Xanax -) 0.25 mg PO BID PRN PRN Reason: ANXIETY Last Admin: 06/30/17 09:48 Dose: 0.25 mg Amitriptyline HCl (Elavil -) 50 mg PO HS PRN PRN Reason: INSOMNIA Last Admin: 06/29/17 23:26 Dose: 50 mg Aspirin (Ecotrin -) 81 mg PO DAILY [facility] Last Admin: 06/29/17 10:13 Dose: 81 mg Atorvastatin Calcium (Lipitor -) 10 mg PO HS [facility] Last Admin: 06/29/17 23:24 Dose: 10 mg Cholestyramine Resin (Questran Light Packet -) 4 gm PO DAILY [facility] Last Admin: 06/30/17 09:48 Dose: Not Given Ferrous Sulfate (Feosol -) 325 mg PO BID [facility] Last Admin: 06/30/17 09:48 Dose: 325 mg Glipizide (Glucotrol -) 5 mg PO DAILY@0700 [facility] Last Admin: 06/30/17 06:30 Dose: Not Given Glipizide (Glucotrol -) 2.5 mg PO HS [facility] Last Admin: 06/29/17 23:28 Dose: Not Given Heparin Sodium (Porcine) (Heparin -) 5,000 unit SQ BID [facility] Last Admin: 06/30/17 09:46 Dose: Not Given Isosorbide Mononitrate (Imdur -) 30 mg PO DAILY [facility] Last Admin: 06/30/17 09:48 Dose: 30 mg Metoprolol Tartrate (Lopressor -) 100 mg PO BID [facility] Last Admin: 06/30/17 09:48 Dose: 100 mg Metronidazole (Flagyl -) 500 mg PO TID [facility] Last Admin: 06/30/17 06:29 Dose: 500 mg Nifedipine (Procardia Xl -) 60 mg PO BID [facility] Last Admin: 06/30/17 09:47 Dose: 60 mg Pantoprazole Sodium (Protonix -) 40 mg PO DAILY [facility] Last Admin: 06/30/17 09:47 Dose: 40 mg - Objective Vital Signs: Vital Signs Temperature 97.5 F L 06/30/17 08:28 Pulse Rate 78 06/30/17 08:28 Respiratory Rate 18 06/30/17 08:28 Blood Pressure 145/76 06/30/17 08:28 O2 Sat by Pulse Oximetry (%) 100 06/30/17 09:00 Constitutional: Yes: No Distress, Calm Eyes: Yes: Conjunctiva Clear HENT: Yes: Atraumatic Neck: Yes: Supple Cardiovascular: Yes: Regular Rate and Rhythm Respiratory: Yes: CTA Bilaterally Gastrointestinal: Yes: Soft. No: Distention Genitourinary: No: CVA Tenderness - Left, CVA Tenderness - Right Musculoskeletal: No: Joint Stiffness, Joint Swelling Extremities: No: Cold, Cool, Cyanosis Edema: No Integumentary: No: Rash, Venous Stasis Changes Neurological: Yes: WNL, Alert, Oriented ...Motor Strength: WNL Psychiatric: Yes: WNL, Alert, Oriented. No: Agitated, Suicidal Ideation Labs: CBC, BMP 06/30/17 10:00 06/30/17 10:00 INR, PTT INR 0.94 (0.82-1.09) 06/26/17 15:38 - ....Imaging Other: Report Reviewed Assessment/Plan Patient is a 81F with history of bronchitis, HTN, NIDDM, cellulitis, rheumatic fever and osteomyelitis admitted with intractable diarrhea with associated weakness. Dehydration, ARF CDiff Ag+ Tox- possible enterocolitis sec to CDiff infection, refused colonoscopy on po flagyl; to be DC home today with VNS, GI, renal f/u as outpt strongly advised stop smoking pt signed DNR DNI but the rescinded it, noted in chart DM control falls decubs DVT PFX DC instructions d/w pt in detail; scripts done d/w pt and staff
--- NOTE | 2017-06-30 11:54 | EKG ---
Test Reason : Blood Pressure : / mmHG Vent. Rate : 072 BPM Atrial Rate : 072 BPM P-R Int : 168 ms QRS Dur : 096 ms QT Int : 416 ms P-R-T Axes : 034 021 050 degrees QTc Int : 455 ms POOR DATA QUALITY, INTERPRETATION MAY BE ADVERSELY AFFECTED NORMAL SINUS RHYTHM MINIMAL VOLTAGE CRITERIA FOR LVH, MAY BE NORMAL VARIANT WHEN COMPARED WITH ECG OF 06-APR-2017 09:15, NO SIGNIFICANT CHANGE WAS FOUND Confirmed by DELMY JACKSON MD ([id number]) on 06/30/2017 11:54:41 AM Referred By: Confirmed By:DELMY JACKSON MD
--- NOTE | 2017-06-30 18:01 | PN ---
Progress Note (short form) - Note Progress Note: Renal follow up for AGUSTÍN on CKD Pt seen and examined at the bedside prior to discharge no acute complaints Vital Signs Temperature 97.5 F L 06/30/17 08:28 Pulse Rate 78 06/30/17 08:28 Respiratory Rate 18 06/30/17 08:28 Blood Pressure 145/76 06/30/17 08:28 O2 Sat by Pulse Oximetry (%) 100 06/30/17 09:00 Intake & Output 06/27/17 06/28/17 06/29/17 06/30/17 23:59 23:59 23:59 23:59 Intake Total 815 1125 1530 120 Balance 815 1125 1530 120 Weight 127 lb 9.6 oz NAD awake and alert no Le edema CBC, BMP 06/30/17 10:00 06/30/17 10:00 81 year old woman with PMhx of 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 Cr noted to be 3. 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
[2017-07-03 14:13] LABS: C-ANCA <1:20 titer (Neg:<1:20); MYELOPEROXIDASE ANTIBODY <9.0 U/mL (0.0-9.0); P-ANCA <1:20 titer (Neg:<1:20); PROTEINASE-3 ANTIBODY <3.5 U/mL (0.0-3.5)
== END 2017-06-30 12:00 | disposition home health service (06) | DRG 372 ==
LOC: JER 13:30 → JERBED 17:00 → J6S 19:57 → J7W 20:17
PROVIDERS: ADMIT Internal Medicine; ATTEND Internal Medicine
DX: A04.72 Enterocolitis due to Clostridium difficile, not specified as recurrent (principal); N17.9 Acute kidney failure, unspecified; N18.4 Chronic kidney disease, stage 4 (severe); K52.9 Noninfective gastroenteritis and colitis, unspecified; E86.0 Dehydration; E11.21 Type 2 diabetes mellitus with diabetic nephropathy; I10 Essential (primary) hypertension; Z88.0 Allergy status to penicillin; Z79.84 Long term (current) use of oral hypoglycemic drugs; F17.210 Nicotine dependence, cigarettes, uncomplicated; I12.9 Hypertensive chronic kidney disease with stage 1 through stage 4 chronic kidney disease, or unspecified chronic kidney disease
CPT/HCPCS: 36415; 71010-TC; 74176-TC; 80048; 80053; 81003; 81015; 82272; 82550; 82553; 82570; 83036; 83520; 83690; 83735; 83993; 84100; 84155; 84156; 84165; 84300; 84443; 84484; 84540; 85025; 85027; 85610; 86038; 86256; 87324; 87449; 93005; 93010; 99282-25; J1644

== ENCOUNTER 2017-12-25 09:20 | Inpatient (IN) | payer OTHER ==
[2017-12-25 09:46] VITALS: BMI 22.1
[2017-12-25] MEDS ORDERED: SODIUM CHLORIDE 1,000 ML IV STA (09:52)
--- NOTE | 2017-12-25 09:56 | PDOC ---
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 The patient states she has had recurrent diarrhea since her cholecystectomy in 03/2016, which she states has been successfully controlled with Cholestyramine. She reports suddenly developing worsening diarrhea with associated itching and abdominal discomfort since last despite compliance with medications. The patient states she came in today as she was concerned about dehydration. The patient denies any recent antibiotic use. The patient denies chest pain, shortness of breath, headache and dizziness. Denies fever, chills, nausea, vomit, and constipation. Denies dysuria, frequency, urgency and hematuria. Allergies: Iodine, Penicillin V, Vancomycin, Azithromycin Past surgical history: Cholecystectomy (03/2016). Femoral bypass. Social history: Cigarette use. No reported alcohol or drug use. PCP: Dr. Angela Barahona GI: Dr. Mcfarland <Benjamin Limon - Last Filed: 12/25/17 16:49> <Paulina Flores - Last Filed: 12/25/17 17:29> - General Chief Complaint: Diarrhea Stated Complaint: DIARRHEA Time Seen by Provider: 12/25/17 09:28 Past History <Benjamin Limon - Last Filed: 12/25/17 16:49> - Past Medical History Anemia: Yes Asthma: No Cancer: No Cardiac Disorders: Yes (PAD) CVA: No COPD: No CHF: No DVT: No Dementia: No Diabetes: Yes GI Disorders: No Disorders: No HTN: Yes Hypercholesterolemia: Yes Liver Disease: No Seizures: No Thyroid Disease: No - Surgical History Abdominal Surgery: No Appendectomy: No Cardiac Surgery: Yes (FEMORAL BYPASS) Cholecystectomy: Yes Lung Surgery: No Neurologic Surgery: No Orthopedic Surgery: No - Family Disease History Family Disease History: CA: Father (lung), Brother, Sister - Immunization History Immunization Up to Date: Yes - Suicide/Smoking/Psychosocial Hx Smoking Status: Yes Smoking History: Never smoked Have you smoked in the past 12 months: Yes Number of Cigarettes Smoked Daily: 20 If you are a former smoker, when did you quit?: 08/10/2012 Cigars Per Day: 30 'Breaking Loose' booklet given: 10/13/15 Hx Alcohol Use: No Drug/Substance Use Hx: No Substance Use Type: None Hx Substance Use Treatment: No <Paulina Flores - Last Filed: 12/25/17 17:29> - Past Medical History Allergies/Adverse Reactions: Allergies Allergy/AdvReac Type Severity Reaction Status Date / Time iodine Allergy Rash Verified 12/25/17 09:35 penicillin V Allergy Verified 12/25/17 09:35 shellfish derived Allergy Rash Verified 12/25/17 09:35 vancomycin Allergy Verified 12/25/17 09:35 azithromycin AdvReac Verified 12/25/17 09:35 Home Medications: Ambulatory Orders Alprazolam 0.25 mg PO BID PRN 08/29/16 Amitriptyline HCl [Elavil -] 25 mg PO BID 08/29/16 Atorvastatin Ca [Lipitor] 10 mg PO HS 08/29/16 Ferrous Sulfate 325 mg PO BID 08/29/16 Glipizide [Glipizide ER] 2.5 mg PO HS PRN 08/29/16 Metoprolol Tartrate 100 mg PO BID 08/29/16 Nifedipine ER [Procardia XL -] 60 mg PO BID 08/29/16 Aspirin Coated [Ecotrin -] 81 mg PO DAILY tablet.ec 09/15/16 Isosorbide Mononitrate [Imdur -] 30 mg PO DAILY 04/06/17 Glipizide 5 mg PO DAILY 06/26/17 Cholestyramine/Aspartame [Questran Light Packet -] 1 pack PO DAILY 12/25/17 Sodium Acetate - [SODIUM ACETATE 40MEQ/20ML Vial] 657 mg PO BID 12/25/17 Sodium Bicarbonate - 325 mg PO BID 12/25/17 Review of Systems - Review of Systems Able to Perform ROS?: Yes Comments:: 12/25/17 10:06 GENERAL/CONSTITUTIONAL: No fever or chills. No weakness. HEAD, EYES, EARS, NOSE AND THROAT: No change in vision. No ear pain or discharge. No sore throat. CARDIOVASCULAR: No chest pain or shortness of breath. RESPIRATORY: No cough, wheezing, or hemoptysis. GASTROINTESTINAL: (+) Diarrhea. (+) Abdominal discomfort. No nausea, vomiting, or constipation. GENITOURINARY: No dysuria, frequency, or change in urination. MUSCULOSKELETAL: No joint or muscle swelling or pain. No neck or back pain. SKIN: (+) Diffuse itching. NEUROLOGIC: No headache, vertigo, loss of consciousness, or change in strength/ sensation. ENDOCRINE: No increased thirst. No abnormal weight change. HEMATOLOGIC/LYMPHATIC: No anemia, easy bleeding, or history of blood clots. ALLERGIC/IMMUNOLOGIC: No hives. <Benjamin Limon - Last Filed: 12/25/17 16:49> *Physical Exam - Vital Signs Last Vital Signs Temp Pulse Resp BP Pulse Ox 97.6 F 84 18 127/78 96 12/25/17 09:35 12/25/17 09:35 12/25/17 09:35 12/25/17 09:35 12/25/17 09:35 <Benjamin Limon - Last Filed: 12/25/17 16:49> - Vital Signs Last Vital Signs Temp Pulse Resp BP Pulse Ox 97.6 F 84 18 127/78 96 12/25/17 09:35 12/25/17 09:35 12/25/17 09:35 12/25/17 09:35 12/25/17 09:35 - Physical Exam Comments: GENERAL: Awake, alert, and fully oriented, in no acute distress HEAD: No signs of trauma EYES: PERRLA, EOMI, sclera anicteric, conjunctiva clear ENT: Auricles normal inspection, hearing grossly normal, nares patent, oropharynx clear without exudates. Dry mucosa NECK: Normal ROM, supple, no lymphadenopathy, JVD, or masses LUNGS: Breath sounds equal, clear to auscultation bilaterally. No wheezes, and no crackles HEART: Regular rate and rhythm, normal S1 and S2, no murmurs, rubs or gallops ABDOMEN: Soft, nontender, +hyperactive bowel sounds. No guarding, no rebound. No masses EXTREMITIES: Normal range of motion, no edema. No clubbing or cyanosis. No cords, erythema, or tenderness NEUROLOGICAL: Cranial nerves II through XII grossly intact. Normal speech, normal gait SKIN: Warm, Dry, normal turgor, no rashes or lesions noted. <Paulina Flores - Last Filed: 12/25/17 17:29> Heart Score/ECG Review - ECG Impressions Comment:: EKG read 10:35- NSR 84 bpm, no acute ST/T changes <Paulina Flores - Last Filed: 12/25/17 17:29> ED Treatment Course - LABORATORY CBC & Chemistry Diagram: 12/25/17 09:54 12/25/17 09:54 <Benjamin Limon - Last Filed: 12/25/17 16:49> - LABORATORY CBC & Chemistry Diagram: 12/25/17 09:54 12/25/17 09:54 <Paulina Flores - Last Filed: 12/25/17 17:29> Medical Decision Making - Medical Decision Making 12/25/17 16:49 Pt. has decided to stay. Message sent to Dr. Angela Barahona through answering service <Benjamin Limon - Last Filed: 12/25/17 16:49> - Medical Decision Making 12/25/17 10:35 Called to bedside. Patient drank half of PO contrast and states she feels chest pain and nausea. EKG obtained, wnl. Pt has history of multiple medication allergies and sensitivities, this may be related. No signs of anaphylactic reaction. I asked her to discontinue the contrast. Will cont to monitor. 12/25/17 15:59 Dr. Barahona at bedside, patient now refusing admission. Wishes to sign out AMA. 12/25/17 16:12 Pt changed her mind, states she wants to stay in hospital. Will contact Dr. Barahona to update her. <Paulina Flores - Last Filed: 12/25/17 17:29> *DC/Admit/Observation/Transfer - Attestations Scribe Attestion: 12/25/17 10:06 Documentation prepared by Benjamin Limon, acting as medical investigator for Paulina Flores MD. <Benjamin Limon - Last Filed: 12/25/17 16:49> - Discharge Dispostion Admit: Yes <Paulina Flores - Last Filed: 12/25/17 17:29> Diagnosis at time of Disposition: Dehydration Diarrhea Qualifiers: Diarrhea type: unspecified type Qualified Code(s): R19.7 - Diarrhea, unspecified Chest pain Qualifiers: Chest pain type: unspecified Qualified Code(s): R07.9 - Chest pain, unspecified - Discharge Dispostion Condition at time of disposition: Stable
[2017-12-25 10:07] LABS: BASO % 0.6 % (0-2.0); EOS % 6.1 % (0-4.5); HEMATOCRIT 27.6 % (32.4-45.2); HEMOGLOBIN 9.4 GM/dL (10.7-15.3); LYMPH % 12.2 % (8-40); MCH 32.4 pg (25.7-33.7); MCHC 34.2 g/dl (32.0-36.0); MEAN CELL VOLUME 94.8 fl (80-96); MONO % 8.1 % (3.8-10.2); PLATELET COUNT 348 K/MM3 (134-434); RBC 2.91 M/mm3 (3.60-5.2); RDW 13.1 % (11.6-15.6); WHITE BLOOD COUNT 6.7 K/mm3 (4.0-10.0)
[2017-12-25] MEDS ORDERED: ONDANSETRON 4 MG/2 ML VIAL IVPUSH ONE (10:26)
[2017-12-25 10:30] LABS: INR 0.99 (0.82-1.09); PROTHROMBIN TIME (PATIENT) 11.2 SEC (9.7-13.0)
[2017-12-25 10:37] LABS: ALBUMIN 2.7 g/dl (3.4-5.0); ALK PHOS 86 U/L (45-117); ANION GAP 9 (8-16); BILIRUBIN,TOTAL 0.1 mg/dL (0.2-1.0); BLOOD UREA NITROGEN 38 mg/dL (7-18); CALCIUM 7.4 mg/dL (8.5-10.1); CHLORIDE 116 mmol/L (98-107); CO2 15 mmol/L (21-32); CREATININE 4.1 mg/dL (0.55-1.02); GLUCOSE,RANDOM 123 mg/dL (74-106); MAGNESIUM 1.9 mg/dL (1.8-2.4); POTASSIUM 4.8 mmol/L (3.5-5.1); SGOT/AST 39 U/L (15-37); SGPT/ALT 30 U/L (12-78); SODIUM 140 mmol/L (136-145); TOT PROT 6.3 g/dl (6.4-8.2)
[2017-12-25 10:38] LABS: LIPASE 403 U/L (73-393)
[2017-12-25 10:39] LABS: BILIRUBIN,DIRECT < 0.2 mg/dL (0.0-0.2)
--- NOTE | 2017-12-25 12:37 | EKG ---
Test Reason : Blood Pressure : / mmHG Vent. Rate : 084 BPM Atrial Rate : 084 BPM P-R Int : 184 ms QRS Dur : 090 ms QT Int : 394 ms P-R-T Axes : 035 045 106 degrees QTc Int : 465 ms NORMAL SINUS RHYTHM RULE OUT ISCHEMIA ABNORMAL ECG WHEN COMPARED WITH ECG OF 26-JUN-2017 14:50, CLINICAL CORRELATION IS RECOMMENDED Confirmed by AFSHAN NOYOLA MD ([id number]) on 12/25/2017 12:36:49 PM Referred By: Confirmed By:AFSHAN NOYOLA MD
[2017-12-25] MEDS ORDERED: METOPROLOL TARTRATE 50 MG TABLET (FP) PO ONE (15:24)
[2017-12-25] MEDS ORDERED: ISOSORBIDE MONONITRATE 30 MG TAB.SR.24H (FP) PO SCH (15:30)
[2017-12-25] MEDS ORDERED: NIFEdipine E.R 60 MG TABLET (UD) PO SCH (15:30)
[2017-12-25] MEDS ORDERED: glipiZIDE-XL 2.5 MG TAB.ER.24 PO PRN (17:23)
--- NOTE | 2017-12-25 17:33 | HP ---
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 The patient states she has had recurrent diarrhea since her cholecystectomy in 03/2016, which she states has been successfully controlled with Cholestyramine. She reports suddenly developing worsening diarrhea with associated itching and abdominal discomfort since last despite compliance with medications, however not taking cholestyramine as prescribed b/ o cost. The patient states she came in today as she was concerned about dehydration. The patient denies any recent antibiotic use. of note pt saw GI dr De Paz then dr Mcfarland in the past as inpt but did not f/u with any GI as outpt despite being advised mutiple times to f/u with GI; also per previous discussions with me and renal dr, she is close to dialysis but she refused to be eval and start preparing for it because she said she could not deal with it physically mentally and cost [place] pt seen in ER. She was informed she will be admitted to hospital but she is fully dressed she wants to go outside to smoke, she also is upset because she said she did not receive her meds and "no one pays any attention to her" and she would rather go home than stay here History Source: Patient, Medical Record Limitations to Obtaining History: No Limitations - Past Medical History Cardiovascular: Yes: HTN, Hyperlipdemia, Murmur, Other (PAD) Pulmonary: Yes: Asthma, COPD Hepatobiliary: Yes: Cholelithiasis Renal/: Yes: Renal Inusuff Heme/Onc: Yes: Anemia Infectious Disease: Yes: Other (history of osteomyelitis in the past) Endocrine: Yes: Diabetes Mellitus - Past Surgical History Past Surgical History: Yes: Amputation (1-st R toe amputation), Bypass (Right fem pop bypass) - Smoking History Smoking history: Current every day smoker Have you smoked in the past 12 months: Yes Aproximately how many cigarettes per day: 20 If you are a former smoker, when did you quit?: 08/10/2012 - Alcohol/Substance Use Hx Alcohol Use: No History of Substance Use: reports: None - Social History Usual Living Arrangement: Yes: Alone ADL: Independent 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, [employer], 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 Travel: No Home Medications - Allergies Allergies/Adverse Reactions: Allergies Allergy/AdvReac Type Severity Reaction Status Date / Time iodine Allergy Rash Verified 12/25/17 09:35 penicillin V Allergy Verified 12/25/17 09:35 shellfish derived Allergy Rash Verified 12/25/17 09:35 vancomycin Allergy Verified 12/25/17 09:35 azithromycin AdvReac Verified 12/25/17 09:35 - Home Medications Home Medications: Ambulatory Orders Alprazolam 0.25 mg PO BID PRN 08/29/16 Amitriptyline HCl [Elavil -] 25 mg PO BID 08/29/16 Atorvastatin Ca [Lipitor] 10 mg PO HS 08/29/16 Ferrous Sulfate 325 mg PO BID 08/29/16 Glipizide [Glipizide ER] 2.5 mg PO HS PRN 08/29/16 Metoprolol Tartrate 100 mg PO BID 08/29/16 Nifedipine ER [Procardia XL -] 60 mg PO BID 08/29/16 Aspirin Coated [Ecotrin -] 81 mg PO DAILY tablet.ec 09/15/16 Isosorbide Mononitrate [Imdur -] 30 mg PO DAILY 04/06/17 Glipizide 5 mg PO DAILY 06/26/17 Cholestyramine/Aspartame [Questran Light Packet -] 1 pack PO DAILY 12/25/17 Sodium Acetate - [SODIUM ACETATE 40MEQ/20ML Vial] 657 mg PO BID 12/25/17 Sodium Bicarbonate - 325 mg PO BID 12/25/17 Family Disease History - Family Disease History Family Disease History: CA: Father (lung ca), Mother (, lung ca), Sister (lung ca) Review of Systems - Review of Systems Constitutional: reports: Loss of Appetite, Weakness. denies: Chills, Fever, Lethargy Eyes: denies: Blurred Vision, Double Vision HENT: denies: Difficult Swallowing, Epistaxis Neck: denies: Stiffness, Tenderness Cardiovascular: denies: Chest Pain, Edema, Palpitations, Shortness of Breath Respiratory: denies: Cough, SOB Gastrointestinal: reports: Abdominal Pain, Bloating, Diarrhea. denies: Constipation, Melena, Rectal Bleeding, Vomiting, Vomiting Blood Genitourinary: denies: Discharge, Dysuria, Flank Pain Musculoskeletal: denies: Back Pain, Joint Pain Integumentary: denies: Rash, Wound Neurological: reports: Weakness (general). denies: Change in LOC, Change in Speech, Confusion, Dizziness, Unsteady Gait Endocrine: denies: Excessive Sweating, Intolerance to Cold, Intolerance to Heat Hematology/Lymphatic: denies: Easily Bruised, Excessive Bleeding Psychiatric: denies: Altered Sleep Pattern, Anxiety, Depression, Hallucinations , Panic, Paranoia, Suicidal Physical Examination Vital Signs: Vital Signs Temperature 97.3 F L 12/25/17 11:41 Pulse Rate 90 12/25/17 11:41 Respiratory Rate 18 12/25/17 11:41 Blood Pressure 197/90 12/25/17 11:41 O2 Sat by Pulse Oximetry (%) 100 12/25/17 11:41 Constitutional: Yes: No Distress, Anxious Eyes: Yes: Conjunctiva Clear, EOM Intact HENT: Yes: Atraumatic Neck: Yes: Supple. No: Tenderness Cardiovascular: Yes: Regular Rate and Rhythm Respiratory: Yes: CTA Bilaterally Gastrointestinal: Yes: Soft. No: Distention, Tenderness Renal/: No: CVA Tenderness - Left, CVA Tenderness - Right, Hematuria Musculoskeletal: No: Joint Stiffness, Joint Swelling Extremities: No: Cold, Cool, Cyanosis Edema: No Integumentary: No: Rash, Venous Stasis Changes Neurological: Yes: WNL, Alert, Oriented ...Motor Strength: WNL Psychiatric: Yes: WNL, Alert, Oriented. 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 The patient states she has had recurrent diarrhea since her cholecystectomy in 03/2016, which she states has been successfully controlled with Cholestyramine. She reports suddenly developing worsening diarrhea with associated itching and abdominal discomfort since last despite compliance with medications. The patient states she came in today as she was concerned about dehydration. The patient denies any recent antibiotic use. admit in OBSERVATION per current guidelines IVF GI and renal eval falls decubs DVT pfx stop smoking d/w pt and staff all the above pt wants to leave from ER to sign out AMA d/w pt possible risks and consequences she is aware but does not want to stay in hospital advised to f/u with PCP GI and renal outpt within 1-2 days; RTER if worse or recurrent c/o
[2017-12-25 18:30] LABS: URINE APPEARANCE CLEAR; URINE BILIRUBIN NEGATIVE (<2.0 mg/dL); URINE COLOR STRAW; URINE GLUCOSE (UA) 1+ (NEGATIVE); URINE KETONE NEGATIVE (NEGATIVE); URINE LEUK ESTERASE NEGATIVE (NEGATIVE); URINE NITRITE NEGATIVE (NEGATIVE); URINE PROTEIN 3+ (NEGATIVE); URINE UROBILINOGEN NEGATIVE mg/dL (0.2-1.0)
[2017-12-25 18:36] LABS: EPI CELLS RARE /HPF (FEW); URINE MUCUS RARE
[2017-12-25] MEDS ORDERED: PATIENT'S OWN MEDICATION (NON-FORMULARY) (Ferrous Sulfate [Ferrous Sulfate] 325 MG) PO SCH (22:00)
[2017-12-25] MEDS ORDERED: PATIENT'S OWN MEDICATION (NON-FORMULARY) (Metoprolol Tartrate [Metoprolol Tartrate] 100 MG PO SCH (22:00)
[2017-12-25] MEDS: FERROUS SO4 325 MG TABLET (FP) PO SCH (22:37)
[2017-12-25] MEDS: INSULIN SLIDING SCALE (NOVOLOG) 1 VIAL SQ SCH (22:38)
[2017-12-25] MEDS: ATORVASTATIN CA 10 MG TABLET (FP) PO SCH (22:44)
[2017-12-25] MEDS: AMITRIPTYLINE HCL 25 MG TABLET (FP) PO SCH (22:44)
[2017-12-25] MEDS: NIFEdipine E.R 60 MG TABLET (UD) PO SCH (22:45)
[2017-12-25] MEDS: METOPROLOL TARTRATE 50 MG TABLET (FP) PO SCH (22:45)
[2017-12-25] MEDS: SODIUM BICARBONATE 325 MG TABLET PO SCH (23:48)
[2017-12-26] MEDS: ALPRAZolam 0.25 MG TABLET PO PRN (00:40)
[2017-12-26] MEDS: INSULIN SLIDING SCALE (NOVOLOG) 1 VIAL SQ SCH ×4 (06:14→23:15)
--- NOTE | 2017-12-26 06:19 | PN ---
Progress Note, Physician Chief Complaint: events noted; pt eventually changed her mind last evening and stayed in hospital ; labs this am HG drop from 9 to 7, no bleed, possible sec to IVF, previously hemoconcentrated - Current Medication List Current Medications: Active Medications Alprazolam (Xanax -) 0.25 mg PO Q12H PRN PRN Reason: ANXIETY Last Admin: 12/26/17 00:40 Dose: 0.25 mg Amitriptyline HCl (Elavil -) 25 mg PO BID [facility] Last Admin: 12/25/17 22:44 Dose: 25 mg Aspirin (Ecotrin -) 81 mg PO DAILY [facility] Atorvastatin Calcium (Lipitor -) 10 mg PO HS [facility] Last Admin: 12/25/17 22:44 Dose: 10 mg Cholestyramine Resin (Questran Light Packet -) 4 gm PO DAILY [facility] Ferrous Sulfate (Feosol -) 325 mg PO BID [facility] Last Admin: 12/25/17 22:37 Dose: 325 mg Glipizide (Glucotrol -) 5 mg PO AM [facility] Glipizide (Glucotrol Xl -) 2.5 mg PO HS PRN PRN Reason: depending on bs Insulin Aspart (Novolog Vial Sliding Scale -) 1 vial SQ ACHS [facility] PRN Reason: Protocol Last Admin: 12/26/17 06:14 Dose: Not Given Isosorbide Mononitrate (Imdur -) 30 mg PO DAILY [facility] Metoprolol Tartrate (Lopressor -) 100 mg PO BID [facility] Last Admin: 12/25/17 22:45 Dose: Not Given Nifedipine (Procardia Xl -) 60 mg PO BID [facility] Last Admin: 12/25/17 22:45 Dose: Not Given Sodium Bicarbonate (Sodium Bicarbonate -) 325 mg PO BID [facility] Last Admin: 12/25/17 23:48 Dose: 325 mg - Objective Vital Signs: Vital Signs Temperature 98 F 12/26/17 06:00 Pulse Rate 64 12/26/17 06:00 Respiratory Rate 20 12/26/17 06:00 Blood Pressure 124/60 12/26/17 06:00 O2 Sat by Pulse Oximetry (%) 100 12/26/17 01:25 Constitutional: Yes: No Distress, Calm Eyes: Yes: Conjunctiva Clear HENT: Yes: Atraumatic Neck: Yes: Supple Cardiovascular: Yes: Regular Rate and Rhythm Respiratory: Yes: CTA Bilaterally Gastrointestinal: Yes: Soft. No: Distention, Tenderness Genitourinary: No: CVA Tenderness - Left, CVA Tenderness - Right Musculoskeletal: No: Joint Stiffness, Joint Swelling Extremities: No: Cold, Cool, Cyanosis Edema: No Integumentary: No: Rash, Venous Stasis Changes Neurological: Yes: WNL, Alert, Oriented ...Motor Strength: WNL Psychiatric: Yes: WNL, Alert, Oriented. 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 The patient states she has had recurrent diarrhea since her cholecystectomy in 03/2016, which she states has been successfully controlled with Cholestyramine. She reports suddenly developing worsening diarrhea with associated itching and abdominal discomfort since last despite compliance with medications. placed in OBSERVATION per current guidelines IVF drop in Hg repeat if real would transfuse PRBC; pt however does not want blood transfusions at this point GI and renal eval falls decubs DVT pfx stop smoking d/w pt and staff all the above
[2017-12-26] MEDS: glipiZIDE 5 MG TABLET (FP) PO SCH (06:22)
[2017-12-26 06:58] LABS: BASO % 0.5 % (0-2.0); EOS % 6.1 % (0-4.5); HEMATOCRIT 20.4 % (32.4-45.2); LYMPH % 27.9 % (8-40); MCH 32.5 pg (25.7-33.7); MCHC 34.5 g/dl (32.0-36.0); MEAN CELL VOLUME 94.3 fl (80-96); MEAN PLT VOLUME 7.9 fl (7.5-11.1); MONO % 10.2 % (3.8-10.2); NEUT % 55.3 % (42.8-82.8); PLATELET COUNT 285 K/MM3 (134-434); RBC 2.17 M/mm3 (3.60-5.2); RDW 13.6 % (11.6-15.6); WHITE BLOOD COUNT 6.5 K/mm3 (4.0-10.0)
[2017-12-26 07:15] LABS: ALBUMIN 2.3 g/dl (3.4-5.0); ANION GAP 7 (8-16); BILIRUBIN,TOTAL 0.1 mg/dL (0.2-1.0); BLOOD UREA NITROGEN 38 mg/dL (7-18); CALCIUM 7.1 mg/dL (8.5-10.1); CHLORIDE 118 mmol/L (98-107); CO2 16 mmol/L (21-32); CREATININE 4.2 mg/dL (0.55-1.02); GLUCOSE,RANDOM 72 mg/dL (74-106); POTASSIUM 5.5 mmol/L (3.5-5.1); SGOT/AST 27 U/L (15-37); SGPT/ALT 29 U/L (12-78); SODIUM 141 mmol/L (136-145); TOT PROT 5.1 g/dl (6.4-8.2)
[2017-12-26 07:23] LABS: ALK PHOS 79 U/L (45-117)
--- NOTE | 2017-12-26 08:28 | CON.GI ---
Consult Consult Specialty:: GI Reason for Consultation:: chronic diarrhea, getting worse - History of Present Illness History of Present Illness: and 82-year-old female with chronic diarrhea with other medical issues. Patient reports onset of diarrhea after she had ERCP 3 years ago. She was managed with cholestyramine up until 3 days ago. 3 days ago her diarrhea symptoms became worse. She reports 10-20 bowel movements per day. Small volume , non-watery, non-melanotic, no hematochezia, fever, chills, nausea, vomiting, abdominal pain. The patient denies recent travel, exposure to ill, eating out. She was started on calcium citrate about 3 days ago. She also reports chewing sugar-free gum for the last 2 weeks. The patient is known diabetic and consumes Splenda on a daily basis. She is not known to be lactose intolerant. Her diarrheal symptoms unrelated to any specific diet, or foods. She never tried to stop using artificial sweeteners to see if diarrhea improves. She had EGD and colonoscopy [address] Mcfarland. EGD and colonoscopy 2013 revealed gastritis, negative for microscopic colitis. Of note , cholestyramine works very well for the patient however the is a large co-pay , which she was able to afford thus far. admission labs revealed a normocytic, normochromic anemia, renal insufficiency (chronic) insignificant liver chemistry , CT abdomen and pelvis without contrast without acute pathology. - History Source History Provided By: Patient, Medical Record - Past Medical History Cardio/Vascular: Yes: HTN, Hyperlipdemia, Murmur, Other (PAD) Pulmonary: Yes: Asthma, COPD Hepatobiliary: Yes: Cholelithiasis Renal/: Yes: Renal Inusuff ...: No Infectious Disease: Yes: Other (history of osteomyelitis in the past) Endocrine: Yes: Diabetes Mellitus - Past Surgical History Past Surgical History: Yes: Amputation (1-st R toe amputation), Bypass (Right fem pop bypass) - Alcohol/Substance Use Hx Alcohol Use: No History of Substance Use: reports: None - Smoking History Smoking history: Former smoker Have you smoked in the past 12 months: No Aproximately how many cigarettes per day: 20 If you are a former smoker, when did you quit?: 08/10/2012 - Social History Usual Living Arrangement: Alone ADL: Independent 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, [employer], 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 Travel: No Home Medications - Allergies Allergies/Adverse Reactions: Allergies Allergy/AdvReac Type Severity Reaction Status Date / Time iodine Allergy Rash Verified 12/25/17 09:35 penicillin V Allergy Verified 12/25/17 09:35 shellfish derived Allergy Rash Verified 12/25/17 09:35 vancomycin Allergy Verified 12/25/17 09:35 azithromycin AdvReac Verified 12/25/17 09:35 - Home Medications Home Medications: Ambulatory Orders Alprazolam 0.25 mg PO BID PRN 08/29/16 Amitriptyline HCl [Elavil -] 25 mg PO BID 08/29/16 Atorvastatin Ca [Lipitor] 10 mg PO HS 08/29/16 Ferrous Sulfate 325 mg PO BID 08/29/16 Glipizide [Glipizide ER] 2.5 mg PO HS PRN 08/29/16 Metoprolol Tartrate 100 mg PO BID 08/29/16 Nifedipine ER [Procardia XL -] 60 mg PO BID 08/29/16 Aspirin Coated [Ecotrin -] 81 mg PO DAILY tablet.ec 09/15/16 Isosorbide Mononitrate [Imdur -] 30 mg PO DAILY 04/06/17 Glipizide 5 mg PO DAILY 06/26/17 Cholestyramine/Aspartame [Questran Light Packet -] 1 pack PO DAILY 12/25/17 Sodium Acetate - [SODIUM ACETATE 40MEQ/20ML Vial] 657 mg PO BID 12/25/17 Sodium Bicarbonate - 325 mg PO BID 12/25/17 Family Disease History - Family Disease History Family History: Unremarkable Family Disease History: CA: Father (lung ca), Mother (, lung ca), Sister (lung ca) Review of Systems Findings/Remarks: as per H&P and HPI Physical Exam-GI Vital Signs: Vital Signs Temperature 98 F 12/26/17 06:00 Pulse Rate 64 12/26/17 06:00 Respiratory Rate 20 12/26/17 06:00 Blood Pressure 124/60 12/26/17 06:00 O2 Sat by Pulse Oximetry (%) 100 12/26/17 01:25 Constitutional: Yes: Well Nourished, No Distress, Calm Eyes: Yes: Conjunctiva Clear HENT: Yes: Atraumatic Neck: Yes: Supple Cardiovascular: Yes: Regular Rate and Rhythm Respiratory: Yes: Regular Gastrointestinal Inspection: No: Ascites, Distention ...Auscultate: Yes: Normoactive Bowel Sounds ...Palpate: Yes: Soft. No: Firm/Rigid, Guarding, Mass, Tenderness, Tenderness, Rebound Neurological: Yes: Alert, Oriented Labs: CBC, BMP 12/26/17 05:40 12/26/17 05:40 INR, PTT INR 0.99 (0.82-1.09) 12/25/17 09:54 Laboratory Last Values WBC 6.4 K/mm3 (4.0-10.0) 12/26/17 10:15 RBC 2.52 M/mm3 (3.60-5.2) L 12/26/17 10:15 Hgb 8.0 GM/dL (10.7-15.3) L D 12/26/17 10:15 Hct 23.7 % (32.4-45.2) L D 12/26/17 10:15 MCV 94.3 fl (80-96) 12/26/17 10:15 MCH 31.9 pg (25.7-33.7) 12/26/17 10:15 MCHC 33.8 g/dl (32.0-36.0) 12/26/17 10:15 RDW 13.6 % (11.6-15.6) 12/26/17 10:15 Plt Count 320 K/MM3 (134-434) 12/26/17 10:15 MPV 7.6 fl (7.5-11.1) 12/26/17 10:15 Neutrophils % 55.3 % (42.8-82.8) D 12/26/17 05:40 Lymphocytes % 27.9 % (8-40) D 12/26/17 05:40 Monocytes % 10.2 % (3.8-10.2) 12/26/17 05:40 Eosinophils % 6.1 % (0-4.5) H 12/26/17 05:40 Basophils % 0.5 % (0-2.0) 12/26/17 05:40 ESR 97 mm/hr (0-30) H 12/26/17 10:15 PT with INR 11.20 SEC (9.7-13.0) 12/25/17 09:54 INR 0.99 (0.82-1.09) 12/25/17 09:54 Sodium 141 mmol/L (136-145) 12/26/17 05:40 Potassium 5.5 mmol/L (3.5-5.1) H 12/26/17 05:40 Chloride 118 mmol/L (98-107) H 12/26/17 05:40 Carbon Dioxide 16 mmol/L (21-32) L 12/26/17 05:40 Anion Gap 7 (8-16) L 12/26/17 05:40 BUN 38 mg/dL (7-18) H 12/26/17 05:40 Creatinine 4.2 mg/dL (0.55-1.02) H 12/26/17 05:40 Creat Clearance w eGFR 10.18 (>60) 12/26/17 05:40 POC Glucometer 120 UNITS (80-120) 12/26/17 12:21 Random Glucose 72 mg/dL (74-106) L 12/26/17 05:40 Calcium 7.1 mg/dL (8.5-10.1) L 12/26/17 05:40 Magnesium 1.9 mg/dL (1.8-2.4) 12/25/17 09:54 Ferritin 25.644 ng/ml (6.9-282.5) 12/26/17 05:40 Total Bilirubin 0.1 mg/dL (0.2-1.0) L 12/26/17 05:40 Direct Bilirubin < 0.2 mg/dL (0.0-0.2) 12/25/17 09:54 AST 27 U/L (15-37) 12/26/17 05:40 ALT 29 U/L (12-78) 12/26/17 05:40 Alkaline Phosphatase 79 U/L (45-117) 12/26/17 05:40 Creatine Kinase 193 IU/L (26-192) H 12/25/17 09:54 Creatine Kinase Index 2.8 % (0.0-5.0) 12/25/17 09:54 CK-MB (CK-2) 5.405 ng/mL (0.5-3.6) H 12/25/17 09:54 Troponin I < 0.02 ng/ml (0.00-0.05) 12/25/17 09:54 Total Protein 5.1 g/dl (6.4-8.2) L 12/26/17 05:40 Albumin 2.3 g/dl (3.4-5.0) L 12/26/17 05:40 [id number] (%) Cancelled 12/26/17 10:35 [id number] (%) Cancelled 12/26/17 10:35 Beta Globulins (%) Cancelled 12/26/17 10:35 Gamma Globulins (%) Cancelled 12/26/17 10:35 M-[place] % Cancelled 12/26/17 10:35 Lipase 403 U/L (73-393) H 12/25/17 09:54 Vitamin B12 346 pg/ml (180-914) 12/26/17 05:40 TSH 2.50 uIU/ml (0.358-3.74) 12/26/17 05:40 Urine Color Straw 12/25/17 18:15 Urine Appearance Clear 12/25/17 18:15 Urine pH 6.0 (5.0-8.0) 12/25/17 18:15 Ur Specific [place] 1.007 (1.001-1.035) 12/25/17 18:15 Urine Protein 3+ (NEGATIVE) H 12/25/17 18:15 Urine Glucose (UA) 1+ (NEGATIVE) H D 12/25/17 18:15 Urine Ketones Negative (NEGATIVE) 12/25/17 18:15 Urine Blood Negative (NEGATIVE) 12/25/17 18:15 Urine Nitrite Negative (NEGATIVE) 12/25/17 18:15 Urine Bilirubin Negative (<2.0 mg/dL) 12/25/17 18:15 Urine Urobilinogen Negative mg/dL (0.2-1.0) 12/25/17 18:15 Ur Leukocyte Esterase Negative (NEGATIVE) 12/25/17 18:15 Urine WBC (Auto) <1 /hpf (3-5) 12/25/17 18:15 Urine RBC (Auto) 1 /hpf (0-3) 12/25/17 18:15 Ur Epithelial Cells Rare /HPF (FEW) 12/25/17 18:15 Urine Mucus Rare 12/25/17 18:15 Ref Test Comments Cancelled 12/26/17 10:35 Blood Type B POSITIVE 12/26/17 10:35 Antibody Screen Negative 12/26/17 10:35 Crossmatch See Detail 12/26/17 10:35 Imaging - Results Cat Scan: Report Reviewed Problem List - Problems (1) Diarrhea Code(s): R19.7 - DIARRHEA, UNSPECIFIED Qualifiers: Diarrhea type: unspecified type Qualified Code(s): R19.7 - Diarrhea, unspecified Assessment/Plan Appears to be chronic diarrhea which got worse recently. No obvious prodromal events, however there is chronic use of artificial sweeteners. The only new medication is calcium citrate. Abnormal renal function and normocytic, normochromic anemia. No stigmata of gastrointestinal blood loss. The diarrhea is likely Multifactorial (?IBS, renal insufficiency, diabetes mellitus, Diet) . Doubt infectious etiology, bacterial overgrowth, or microscopic colitis. EGD with biopsies in 2013 revealed chronic gastritis without evidence of H. pylori and tubular adenoma with negative random mucosal biopsies colonoscopy. The patient had follow-up EGD and colonoscopy [address] Mcfarland[address] by mouth hydration, BRAT diet, stool for ova and parasites, C. difficile, avoid artificial sweeteners and dairy products. Check gastrin level, celiac serology, VIP
[2017-12-26] MEDS: FERROUS SO4 325 MG TABLET (FP) PO SCH ×2 (09:30→23:14)
[2017-12-26] MEDS: METOPROLOL TARTRATE 50 MG TABLET (FP) PO SCH ×2 (09:30→23:15)
[2017-12-26] MEDS: ISOSORBIDE MONONITRATE 30 MG TAB.SR.24H (FP) PO SCH (09:30)
[2017-12-26] MEDS: ASPIRIN COATED 81 MG TABLET.EC PO SCH (09:30)
[2017-12-26] MEDS: SODIUM BICARBONATE 325 MG TABLET PO SCH ×2 (09:31→23:16)
[2017-12-26] MEDS: NIFEdipine E.R 60 MG TABLET (UD) PO SCH ×2 (09:31→23:15)
[2017-12-26] MEDS: AMITRIPTYLINE HCL 25 MG TABLET (FP) PO SCH ×2 (09:33→23:14)
[2017-12-26] MEDS ORDERED: CHOLESTYRAMINE/ASPARTAME 4 GM PACKET PO SCH ×2 (10:00→14:15)
[2017-12-26] MEDS ORDERED: SODIUM POLYSTYRENE SULFONATE 15 GM/60 ML BOTTLE PO ONE (10:23)
[2017-12-26 10:31] LABS: HEMATOCRIT 23.7 % (32.4-45.2); MCH 31.9 pg (25.7-33.7); MCHC 33.8 g/dl (32.0-36.0); MEAN CELL VOLUME 94.3 fl (80-96); MEAN PLT VOLUME 7.6 fl (7.5-11.1); PLATELET COUNT 320 K/MM3 (134-434); RBC 2.52 M/mm3 (3.60-5.2); RDW 13.6 % (11.6-15.6); WHITE BLOOD COUNT 6.4 K/mm3 (4.0-10.0)
[2017-12-26] MEDS ORDERED: SODIUM CHLORIDE 1,000 ML IV SCH (12:00)
--- NOTE | 2017-12-26 12:18 | CONSULT ---
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 The patient states she has had recurrent diarrhea since her cholecystectomy in 03/2016, which she states has been successfully controlled with Cholestyramine. She reports suddenly developing worsening diarrhea with associated itching and abdominal discomfort since last despite compliance with medications. The patient states she came in today as she was concerned about dehydration. The patient denies any recent antibiotic use. - History Source History Provided By: Patient - Past Medical History Cardio/Vascular: Yes: HTN, Hyperlipdemia, Murmur, Other (PAD) Pulmonary: Yes: Asthma, COPD Hepatobiliary: Yes: Cholelithiasis Renal/: Yes: Renal Inusuff ...: No Infectious Disease: Yes: Other (history of osteomyelitis in the past) Endocrine: Yes: Diabetes Mellitus - Past Surgical History Past Surgical History: Yes: Amputation (1-st R toe amputation), Bypass (Right fem pop bypass) - Alcohol/Substance Use Hx Alcohol Use: No History of Substance Use: reports: None - Smoking History Smoking history: Former smoker Have you smoked in the past 12 months: No Aproximately how many cigarettes per day: 20 If you are a former smoker, when did you quit?: 08/10/2012 - Social History Usual Living Arrangement: Alone ADL: Independent 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, [employer], 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 Travel: No Home Medications - Allergies Allergies/Adverse Reactions: Allergies Allergy/AdvReac Type Severity Reaction Status Date / Time iodine Allergy Rash Verified 12/25/17 09:35 penicillin V Allergy Verified 12/25/17 09:35 shellfish derived Allergy Rash Verified 12/25/17 09:35 vancomycin Allergy Verified 12/25/17 09:35 azithromycin AdvReac Verified 12/25/17 09:35 - Home Medications Home Medications: Ambulatory Orders Alprazolam 0.25 mg PO BID PRN 08/29/16 Amitriptyline HCl [Elavil -] 25 mg PO BID 08/29/16 Atorvastatin Ca [Lipitor] 10 mg PO HS 08/29/16 Ferrous Sulfate 325 mg PO BID 08/29/16 Glipizide [Glipizide ER] 2.5 mg PO HS PRN 08/29/16 Metoprolol Tartrate 100 mg PO BID 08/29/16 Nifedipine ER [Procardia XL -] 60 mg PO BID 08/29/16 Aspirin Coated [Ecotrin -] 81 mg PO DAILY tablet.ec 09/15/16 Isosorbide Mononitrate [Imdur -] 30 mg PO DAILY 04/06/17 Glipizide 5 mg PO DAILY 06/26/17 Cholestyramine/Aspartame [Questran Light Packet -] 1 pack PO DAILY 12/25/17 Sodium Acetate - [SODIUM ACETATE 40MEQ/20ML Vial] 657 mg PO BID 12/25/17 Sodium Bicarbonate - 325 mg PO BID 12/25/17 Family Disease History - Family Disease History Family Disease History: CA: Father (lung ca), Mother (, lung ca), Sister (lung ca) Physical Exam Vital Signs: Vital Signs Temperature 98 F 12/26/17 06:00 Pulse Rate 64 12/26/17 06:00 Respiratory Rate 20 12/26/17 06:00 Blood Pressure 124/60 12/26/17 06:00 O2 Sat by Pulse Oximetry (%) 100 12/26/17 01:25 Constitutional: Yes: Well Nourished, No Distress, Calm Eyes: Yes: Conjunctiva Clear HENT: Yes: Atraumatic Neck: Yes: Supple Cardiovascular: Yes: Regular Rate and Rhythm Respiratory: Yes: Regular, CTA Bilaterally Gastrointestinal: Yes: Normal Bowel Sounds, Soft Edema: No Labs: CBC, BMP 12/26/17 10:15 12/26/17 05:40 Assessment/Plan Normocytic anemia: Likely ACD/ACI in the setting of worsening CKD , also has now active infection. Will follow regular transfusions thresholds JACOB/Venofer per renal protocol. for anemia w/u will follow
[2017-12-26] MEDS: PANTOPRAZOLE 20 MG TABLET (FP) PO SCH (13:02)
--- NOTE | 2017-12-26 13:24 | CONSULT ---
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 Pt denies any change in urine output or quality. No NSAID use or contrast expsoure. Denies any flank pain, dysuira. No N/V. No overt uremic symptoms. Pt follows with me in the office and has defided not to pursue dialysis and dialysis planning. PMhx: as above Allergies: As listed in EMR Family Hx: NC Social hx: No T/A/D ROS: as per HPI Home Medications Medication Instructions Recorded Alprazolam 0.25 mg PO BID PRN 08/29/16 Amitriptyline HCl [Elavil -] 25 mg PO BID 08/29/16 Atorvastatin Ca [Lipitor] 10 mg PO HS 08/29/16 Ferrous Sulfate 325 mg PO BID 08/29/16 Glipizide [Glipizide ER] 2.5 mg PO HS PRN 08/29/16 Metoprolol Tartrate 100 mg PO BID 08/29/16 Nifedipine ER [Procardia XL -] 60 mg PO BID 08/29/16 Aspirin Coated [Ecotrin -] 81 mg PO DAILY tablet.ec 09/15/16 Isosorbide Mononitrate [Imdur -] 30 mg PO DAILY 04/06/17 Glipizide 5 mg PO DAILY 06/26/17 Cholestyramine/Aspartame [Questran 1 pack PO DAILY 12/25/17 Light Packet -] Sodium Acetate - [SODIUM ACETATE 657 mg PO BID 12/25/17 40MEQ/20ML Vial] Sodium Bicarbonate - 325 mg PO BID 12/25/17 Vital Signs Temperature 98 F 12/26/17 06:00 Pulse Rate 64 12/26/17 06:00 Respiratory Rate 20 12/26/17 06:00 Blood Pressure 124/60 12/26/17 06:00 O2 Sat by Pulse Oximetry (%) 100 12/26/17 01:25 Intake & Output 12/23/17 12/24/17 12/25/17 12/26/17 23:59 23:59 23:59 23:59 Intake Total 240 120 Balance 240 120 Weight 56.699 kg NAD, well appearing Dry MM, No JVD, Neck supple RRR, No M/R CTA, no wheeze or rales soft NT/ND Abd, no bladder distension No LE edmea, cyanosis No asterxis No focal neurologic defects awake and alert CBC, BMP 12/26/17 10:15 12/26/17 05:40 Laboratory Tests 06/29/17 06/29/17 12/25/17 06:00 06:00 18:15 MCV Anion Gap Hemoglobin A1c % 7.4 H D Calcium 6.8 L* Phosphorus 3.6 Magnesium 2.0 D Albumin 2.2 L Urine Protein 3+ H Urine Glucose (UA) 1+ H D 12/26/17 12/26/17 05:40 10:15 MCV 94.3 Anion Gap 7 L Hemoglobin A1c % Calcium 7.1 L Phosphorus Magnesium Albumin 2.3 L Urine Protein Urine Glucose (UA) Current Medications Alprazolam (Xanax -) 0.25 mg PO Q12H PRN PRN Reason: ANXIETY Last Admin: 12/26/17 00:40 Dose: 0.25 mg Amitriptyline HCl (Elavil -) 25 mg PO BID [facility] Last Admin: 12/26/17 09:33 Dose: Not Given Aspirin (Ecotrin -) 81 mg PO DAILY [facility] Last Admin: 12/26/17 09:30 Dose: 81 mg Atorvastatin Calcium (Lipitor -) 10 mg PO HS [facility] Last Admin: 12/25/17 22:44 Dose: 10 mg Cholestyramine Resin (Questran Light Packet -) 4 gm PO DAILY [facility] Last Admin: 12/26/17 11:29 Dose: 4 gm Ferrous Sulfate (Feosol -) 325 mg PO BID [facility] Last Admin: 12/26/17 09:30 Dose: 325 mg Glipizide (Glucotrol -) 5 mg PO AM [facility] Last Admin: 12/26/17 06:22 Dose: 5 mg Glipizide (Glucotrol Xl -) 2.5 mg PO HS PRN PRN Reason: depending on bs Sodium Chloride (Normal Saline -) 1,000 mls @ 75 mls/hr IV ASDIR [facility] Last Admin: 12/26/17 12:33 Dose: 75 mls/hr Insulin Aspart (Novolog Vial Sliding Scale -) 1 vial SQ ACHS [facility] PRN Reason: Protocol Last Admin: 12/26/17 12:32 Dose: Not Given Isosorbide Mononitrate (Imdur -) 30 mg PO DAILY [facility] Last Admin: 12/26/17 09:30 Dose: 30 mg Metoprolol Tartrate (Lopressor -) 100 mg PO BID [facility] Last Admin: 12/26/17 09:30 Dose: 100 mg Nifedipine (Procardia Xl -) 60 mg PO BID [facility] Last Admin: 12/26/17 09:31 Dose: 60 mg Pantoprazole Sodium (Protonix -) 20 mg PO DAILY [facility] Last Admin: 12/26/17 13:02 Dose: 20 mg Sodium Bicarbonate (Sodium Bicarbonate -) 325 mg PO BID [facility] Last Admin: 12/26/17 09:31 Dose: 325 mg 82 year old woman with PMhx of 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 #CKD Stage 5 #Non-anion gap metabolic acidosis likely due to GI Losses #Hyperkalemia #Diarrhea/C.diff colitis #Hypertension #Anemia Renal function is sliglhy worse now compared to a few months ago but that could be from acute hypvolemia in setting of diarrhea, will continue isotonic saline there is no acute indication for dialysis but the topic of dialysis was brought up with the patient and she still does not wish to pursue dialysis at this time and she is understanding of the risks of progressive renal failure Renal diet for now given hyperkalemia, repeat BMP in the evening Avoid NSAIDs, JEANETTE/ARBs at this time Start IV bicarbonate as pt with non-gap acidosis Start PO Vanco for suspected C.diff Continue Nifedpine for BP Check Iron studies, will plan on giving IV iron and JACOB Thank you Will follow Quentin Goyal DO
[2017-12-26] MEDS: CHOLESTYRAMINE/ASPARTAME 4 GM PACKET PO SCH (14:28)
[2017-12-26] MEDS: SODIUM BICARBONATE 8.4% - 75 MEQ in SODIUM CHLORIDE 0.45% 1,000 ML IV SCH ×2 (17:42→23:16)
[2017-12-26] MEDS ORDERED: PT OWN MED DRAWER 7, Y5N ONE (22:50)
[2017-12-26] MEDS: metroNIDAZOLE 250 MG TABLET PO SCH (23:14)
[2017-12-26] MEDS: ATORVASTATIN CA 10 MG TABLET (FP) PO SCH (23:15)
[2017-12-27] MEDS: INSULIN SLIDING SCALE (NOVOLOG) 1 VIAL SQ SCH ×4 (06:14→22:47)
[2017-12-27] MEDS: glipiZIDE 5 MG TABLET (FP) PO SCH (06:20)
[2017-12-27] MEDS: metroNIDAZOLE 250 MG TABLET PO SCH ×3 (06:20→22:47)
--- NOTE | 2017-12-27 06:26 | PN ---
Progress Note, Physician Chief Complaint: repeat Hg yesterday 8 today 7.8 no bleed, told by GI she does not need blood transfusions seen by heme also started on iron CDiff Ag+ started on flagyl feels hopeless and upset; still with diarrhea - Current Medication List Current Medications: Active Medications Alprazolam (Xanax -) 0.25 mg PO Q12H PRN PRN Reason: ANXIETY Last Admin: 12/26/17 00:40 Dose: 0.25 mg Amitriptyline HCl (Elavil -) 25 mg PO BID [facility] Last Admin: 12/26/17 23:14 Dose: 25 mg Aspirin (Ecotrin -) 81 mg PO DAILY [facility] Last Admin: 12/26/17 09:30 Dose: 81 mg Atorvastatin Calcium (Lipitor -) 10 mg PO HS [facility] Last Admin: 12/26/17 23:15 Dose: 10 mg Cholestyramine Resin (Questran Light Packet -) 4 gm PO BID [facility] Last Admin: 12/26/17 14:28 Dose: Not Given Ferrous Sulfate (Feosol -) 325 mg PO BID [facility] Last Admin: 12/26/17 23:14 Dose: 325 mg Glipizide (Glucotrol -) 5 mg PO AM [facility] Last Admin: 12/27/17 06:20 Dose: 5 mg Glipizide (Glucotrol Xl -) 2.5 mg PO HS PRN PRN Reason: depending on bs Sodium Bicarbonate 75 meq/ (Sodium Chloride) 1,075 mls @ 100 mls/hr IV Q10H [facility] Last Admin: 12/26/17 23:16 Dose: 100 mls/hr Insulin Aspart (Novolog Vial Sliding Scale -) 1 vial SQ ACHS [facility] PRN Reason: Protocol Last Admin: 12/27/17 06:14 Dose: Not Given Isosorbide Mononitrate (Imdur -) 30 mg PO DAILY [facility] Last Admin: 12/26/17 09:30 Dose: 30 mg Metoprolol Tartrate (Lopressor -) 100 mg PO BID [facility] Last Admin: 12/26/17 23:15 Dose: 100 mg Metronidazole (Flagyl -) 500 mg PO TID [facility] Last Admin: 12/27/17 06:20 Dose: 500 mg Nifedipine (Procardia Xl -) 60 mg PO BID [facility] Last Admin: 12/26/17 23:15 Dose: 60 mg Pantoprazole Sodium (Protonix -) 20 mg PO DAILY [facility] Last Admin: 12/26/17 13:02 Dose: 20 mg Sodium Bicarbonate (Sodium Bicarbonate -) 325 mg PO BID [facility] Last Admin: 12/26/17 23:16 Dose: Not Given - Objective Vital Signs: Vital Signs Temperature 98.2 F 12/27/17 01:00 Pulse Rate 56 L 12/27/17 01:00 Respiratory Rate 18 12/27/17 01:00 Blood Pressure 109/47 12/27/17 01:00 O2 Sat by Pulse Oximetry (%) 96 12/26/17 22:00 Constitutional: Yes: No Distress, Anxious Eyes: Yes: Conjunctiva Clear HENT: Yes: Atraumatic Neck: Yes: Supple Cardiovascular: Yes: Regular Rate and Rhythm Respiratory: Yes: CTA Bilaterally Gastrointestinal: Yes: Soft. No: Distention, Tenderness Genitourinary: No: CVA Tenderness - Left, CVA Tenderness - Right Musculoskeletal: No: Joint Stiffness, Joint Swelling Extremities: No: Cold, Cool, Cyanosis Edema: No Integumentary: No: Rash, Venous Stasis Changes Neurological: Yes: WNL, Alert, Oriented ...Motor Strength: WNL Psychiatric: Yes: WNL, Alert, Oriented. 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 The patient states she has had recurrent diarrhea since her cholecystectomy in 03/2016, which she states has been successfully controlled with Cholestyramine. She reports suddenly developing worsening diarrhea with associated itching and abdominal discomfort since last despite compliance with medications. placed in OBSERVATION per current guidelines IVF if further drop in Hg would transfuse PRBC; pt however does not want blood transfusions at this point GI and renal eval falls decubs DVT pfx do not get OOB alone; bed alarm stop smoking d/w pt and staff all the above
[2017-12-27 08:08] LABS: SERUM IRON SATURATION 27 % (15-55); TOTAL IRON BINDING CAPACITY 259 ug/dL (250-450); UIBC 189 ug/dL (118-369)
--- NOTE | 2017-12-27 09:44 | PN ---
Progress Note, Physician History of Present Illness: No bowel movement since yesterday. 1 g drop in hemoglobin yesterday however no stigmata recent, or active gastrointestinal bleed. The patient is comfortable. Pain-free. - Current Medication List Current Medications: Active Medications Alprazolam (Xanax -) 0.25 mg PO Q12H PRN PRN Reason: ANXIETY Last Admin: 12/26/17 00:40 Dose: 0.25 mg Amitriptyline HCl (Elavil -) 25 mg PO BID [facility] Last Admin: 12/26/17 23:14 Dose: 25 mg Aspirin (Ecotrin -) 81 mg PO DAILY [facility] Last Admin: 12/26/17 09:30 Dose: 81 mg Atorvastatin Calcium (Lipitor -) 10 mg PO HS [facility] Last Admin: 12/26/17 23:15 Dose: 10 mg Cholestyramine Resin (Questran Light Packet -) 4 gm PO BID [facility] Last Admin: 12/26/17 14:28 Dose: Not Given Ferrous Sulfate (Feosol -) 325 mg PO BID [facility] Last Admin: 12/26/17 23:14 Dose: 325 mg Glipizide (Glucotrol -) 5 mg PO AM [facility] Last Admin: 12/27/17 06:20 Dose: 5 mg Glipizide (Glucotrol Xl -) 2.5 mg PO HS PRN PRN Reason: depending on bs Sodium Bicarbonate 75 meq/ (Sodium Chloride) 1,075 mls @ 100 mls/hr IV Q10H [facility] Last Admin: 12/26/17 23:16 Dose: 100 mls/hr Insulin Aspart (Novolog Vial Sliding Scale -) 1 vial SQ ACHS [facility] PRN Reason: Protocol Last Admin: 12/27/17 06:14 Dose: Not Given Isosorbide Mononitrate (Imdur -) 30 mg PO DAILY [facility] Last Admin: 12/26/17 09:30 Dose: 30 mg Metoprolol Tartrate (Lopressor -) 100 mg PO BID [facility] Last Admin: 12/26/17 23:15 Dose: 100 mg Metronidazole (Flagyl -) 500 mg PO TID [facility] Last Admin: 12/27/17 06:20 Dose: 500 mg Nifedipine (Procardia Xl -) 60 mg PO BID [facility] Last Admin: 12/26/17 23:15 Dose: 60 mg Pantoprazole Sodium (Protonix -) 20 mg PO DAILY [facility] Last Admin: 12/26/17 13:02 Dose: 20 mg Sodium Bicarbonate (Sodium Bicarbonate -) 325 mg PO BID [facility] Last Admin: 12/26/17 23:16 Dose: Not Given - Objective Vital Signs: Vital Signs Temperature 98.2 F 12/27/17 01:00 Pulse Rate 63 12/27/17 05:00 Respiratory Rate 18 12/27/17 05:00 Blood Pressure 126/65 12/27/17 05:00 O2 Sat by Pulse Oximetry (%) 96 12/26/17 22:00 Constitutional: Yes: Well Nourished, No Distress, Calm, Pallor Gastrointestinal: Yes: Soft. No: Tenderness Labs: CBC, BMP 12/26/17 10:15 INR, PTT INR 0.99 (0.82-1.09) 12/25/17 09:54 Problem List - Problems (1) Diarrhea Code(s): R19.7 - DIARRHEA, UNSPECIFIED Qualifiers: Diarrhea type: unspecified type Qualified Code(s): R19.7 - Diarrhea, unspecified (2) Anemia Code(s): D64.9 - ANEMIA, UNSPECIFIED Assessment/Plan diarrheal symptoms improved on cholestyramine twice a day. Anemia however no signs of Recent, or ongoinggastrointestinal bleed. EGD and colonoscopy within 1 year. No need for blood transfusion in my opinion. Continue current care. Observe. Discussed with the patient.
[2017-12-27 09:51] LABS: BASO % 0.8 % (0-2.0); EOS % 5.5 % (0-4.5); HEMATOCRIT 23.3 % (32.4-45.2); HEMOGLOBIN 7.8 GM/dL (10.7-15.3); LYMPH % 19.8 % (8-40); MCH 31.7 pg (25.7-33.7); MCHC 33.5 g/dl (32.0-36.0); MEAN CELL VOLUME 94.6 fl (80-96); MEAN PLT VOLUME 8.3 fl (7.5-11.1); MONO % 9.4 % (3.8-10.2); NEUT % 64.5 % (42.8-82.8); PLATELET COUNT 312 K/MM3 (134-434); RBC 2.46 M/mm3 (3.60-5.2); RDW 13.3 % (11.6-15.6); WHITE BLOOD COUNT 8.1 K/mm3 (4.0-10.0)
[2017-12-27] MEDS ORDERED: PT OWN MED DRAWER 7, Y5N ONE ×3 (10:07→22:36)
[2017-12-27] MEDS: CHOLESTYRAMINE/ASPARTAME 4 GM PACKET PO SCH ×2 (10:11→22:47)
[2017-12-27] MEDS: SODIUM BICARBONATE 8.4% - 75 MEQ in SODIUM CHLORIDE 0.45% 1,000 ML IV SCH (10:55)
[2017-12-27] MEDS: FERROUS SO4 325 MG TABLET (FP) PO SCH ×2 (11:03→22:46)
[2017-12-27] MEDS: ASPIRIN COATED 81 MG TABLET.EC PO SCH (11:03)
[2017-12-27] MEDS: ISOSORBIDE MONONITRATE 30 MG TAB.SR.24H (FP) PO SCH (11:04)
[2017-12-27] MEDS: METOPROLOL TARTRATE 50 MG TABLET (FP) PO SCH ×2 (11:04→22:46)
[2017-12-27] MEDS: PANTOPRAZOLE 20 MG TABLET (FP) PO SCH (11:05)
[2017-12-27] MEDS: SODIUM BICARBONATE 325 MG TABLET PO SCH (11:05)
[2017-12-27] MEDS: NIFEdipine E.R 60 MG TABLET (UD) PO SCH ×2 (11:05→22:46)
[2017-12-27 11:12] LABS: CHLORIDE 115 mmol/L (98-107); POTASSIUM 4.6 mmol/L (3.5-5.1); SODIUM 141 mmol/L (136-145)
[2017-12-27] MEDS: AMITRIPTYLINE HCL 25 MG TABLET (FP) PO SCH ×2 (12:12→22:46)
[2017-12-27 12:25] LABS: ALBUMIN 2.6 g/dl (3.4-5.0); ALK PHOS 84 U/L (45-117); ANION GAP 13 (8-16); BILIRUBIN,TOTAL 0.2 mg/dL (0.2-1.0); BLOOD UREA NITROGEN 35 mg/dL (7-18); CALCIUM 7.2 mg/dL (8.5-10.1); CO2 13 mmol/L (21-32); CREATININE 4.1 mg/dL (0.55-1.02); GLUCOSE,RANDOM 117 mg/dL (74-106); SGOT/AST 20 U/L (15-37); SGPT/ALT 26 U/L (12-78); TOT PROT 5.7 g/dl (6.4-8.2)
[2017-12-27] MEDS ORDERED: IRON SUCROSE INJECTION 100 MG in SODIUM CHLORIDE 95 ML IVPB ONE (16:22)
--- NOTE | 2017-12-27 18:36 | PN ---
Progress Note (short form) - Note Progress Note: Renal Follow up for CKD Pt seen and examined at the bedside continuing to have diarrhea no sob, chest pain, abd pain, N/V/D Vital Signs Temperature 98 F 12/27/17 14:05 Pulse Rate 58 L 12/27/17 14:05 Respiratory Rate 18 12/27/17 14:05 Blood Pressure 131/48 12/27/17 14:05 O2 Sat by Pulse Oximetry (%) 97 12/27/17 17:30 Intake & Output 12/24/17 12/25/17 12/26/17 12/27/17 23:59 23:59 23:59 23:59 Intake Total 244 824 0844 Balance 884 610 4834 Weight 56.699 kg NAD, well appearing CTA, no wheeze or rales soft NT/ND Abd, no bladder distension No LE edmea, cyanosis No asterxis awake and alert CBC, BMP 12/27/17 06:30 12/27/17 06:30 Current Medications Alprazolam (Xanax -) 0.25 mg PO Q12H PRN PRN Reason: ANXIETY Last Admin: 12/26/17 00:40 Dose: 0.25 mg Amitriptyline HCl (Elavil -) 25 mg PO BID [facility] Last Admin: 12/27/17 12:12 Dose: 25 mg Aspirin (Ecotrin -) 81 mg PO DAILY [facility] Last Admin: 12/27/17 11:03 Dose: 81 mg Atorvastatin Calcium (Lipitor -) 10 mg PO HS [facility] Last Admin: 12/26/17 23:15 Dose: 10 mg Cholestyramine Resin (Questran Light Packet -) 4 gm PO BID [facility] Last Admin: 12/27/17 10:11 Dose: 4 gm Epoetin Paco (Procrit -) 20,000 unit SQ ONCE ONE Stop: 12/27/17 18:31 Ferrous Sulfate (Feosol -) 325 mg PO BID [facility] Last Admin: 12/27/17 11:03 Dose: 325 mg Glipizide (Glucotrol -) 5 mg PO AM [facility] Last Admin: 12/27/17 06:20 Dose: 5 mg Insulin Aspart (Novolog Vial Sliding Scale -) 1 vial SQ ACHS [facility] PRN Reason: Protocol Last Admin: 12/27/17 18:07 Dose: Not Given Isosorbide Mononitrate (Imdur -) 30 mg PO DAILY [facility] Last Admin: 12/27/17 11:04 Dose: 30 mg Metoprolol Tartrate (Lopressor -) 100 mg PO BID [facility] Last Admin: 12/27/17 11:04 Dose: 100 mg Metronidazole (Flagyl -) 500 mg PO TID [facility] Last Admin: 12/27/17 14:42 Dose: 500 mg Nifedipine (Procardia Xl -) 60 mg PO BID [facility] Last Admin: 12/27/17 11:05 Dose: 60 mg Pantoprazole Sodium (Protonix -) 20 mg PO DAILY [facility] Last Admin: 12/27/17 11:05 Dose: 20 mg Sodium Bicarbonate (Sodium Bicarbonate -) 650 mg PO TID [facility] 82 year old woman with PMhx of 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 #CKD Stage 5 #Non-anion gap metabolic acidosis likely due to GI Losses #Hyperkalemia #Diarrhea/C.diff colitis #Hypertension #Anemia Renal function unchanged despite IVF D/c IVF Give sodium bicarb 650mg TID Continue Flagl PO will given Epogen 01450 units sC x 1 today agree with IV iron no acute need for blood transfusion Renal diet pt does not wish to pursue dialysis Quentin Goyal DO
[2017-12-27] MEDS: ATORVASTATIN CA 10 MG TABLET (FP) PO SCH (22:46)
[2017-12-27] MEDS: SODIUM BICARBONATE 650 MG TABLET PO SCH (22:47)
[2017-12-27] MEDS ORDERED: EPOETIN ALFA 20,000 UNIT/1 ML VIAL SQ ONE (23:15)
--- NOTE | 2017-12-28 05:51 | PN ---
Progress Note, Physician Chief Complaint: in bed NAD VSS afebrile, no bleed; Hg 7 pt agreed for blood transfusion less diarrhea - Current Medication List Current Medications: Active Medications Alprazolam (Xanax -) 0.25 mg PO Q12H PRN PRN Reason: ANXIETY Last Admin: 12/26/17 00:40 Dose: 0.25 mg Amitriptyline HCl (Elavil -) 25 mg PO BID [facility] Last Admin: 12/27/17 22:46 Dose: 25 mg Aspirin (Ecotrin -) 81 mg PO DAILY [facility] Last Admin: 12/27/17 11:03 Dose: 81 mg Atorvastatin Calcium (Lipitor -) 10 mg PO HS [facility] Last Admin: 12/27/17 22:46 Dose: 10 mg Cholestyramine Resin (Questran Light Packet -) 4 gm PO BID [facility] Last Admin: 12/27/17 22:47 Dose: 4 gm Ferrous Sulfate (Feosol -) 325 mg PO BID [facility] Last Admin: 12/27/17 22:46 Dose: 325 mg Glipizide (Glucotrol -) 5 mg PO AM [facility] Last Admin: 12/27/17 06:20 Dose: 5 mg Insulin Aspart (Novolog Vial Sliding Scale -) 1 vial SQ ACHS [facility] PRN Reason: Protocol Last Admin: 12/27/17 22:47 Dose: Not Given Isosorbide Mononitrate (Imdur -) 30 mg PO DAILY [facility] Last Admin: 12/27/17 11:04 Dose: 30 mg Metoprolol Tartrate (Lopressor -) 100 mg PO BID [facility] Last Admin: 12/27/17 22:46 Dose: 100 mg Metronidazole (Flagyl -) 500 mg PO TID [facility] Last Admin: 12/27/17 22:47 Dose: 500 mg Nifedipine (Procardia Xl -) 60 mg PO BID [facility] Last Admin: 12/27/17 22:46 Dose: 60 mg Pantoprazole Sodium (Protonix -) 20 mg PO DAILY [facility] Last Admin: 12/27/17 11:05 Dose: 20 mg Sodium Bicarbonate (Sodium Bicarbonate -) 650 mg PO TID [facility] Last Admin: 12/27/17 22:47 Dose: 650 mg - Objective Vital Signs: Vital Signs Temperature 98.4 F 12/28/17 02:00 Pulse Rate 56 L 12/28/17 02:00 Respiratory Rate 20 12/28/17 02:00 Blood Pressure 110/42 12/28/17 02:00 O2 Sat by Pulse Oximetry (%) 98 12/27/17 22:00 Constitutional: Yes: No Distress, Calm Eyes: Yes: Conjunctiva Clear HENT: Yes: Atraumatic Neck: Yes: Supple Cardiovascular: Yes: Regular Rate and Rhythm Respiratory: Yes: CTA Bilaterally Gastrointestinal: Yes: Soft. No: Distention, Tenderness Genitourinary: No: CVA Tenderness - Left, CVA Tenderness - Right Musculoskeletal: No: Joint Stiffness, Joint Swelling Extremities: No: Cold, Cool, Cyanosis Edema: No Integumentary: No: Rash, Venous Stasis Changes Neurological: Yes: WNL, Alert, Oriented ...Motor Strength: WNL Psychiatric: Yes: WNL, Alert, Oriented. 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 The patient states she has had recurrent diarrhea since her cholecystectomy in 03/2016, which she states has been successfully controlled with Cholestyramine. She reports suddenly developing worsening diarrhea with associated itching and abdominal discomfort since last despite compliance with medications. admitted to INPT IVF noted further drop in Hg will transfuse PRBC; pt agreed GI and renal eval falls decubs DVT pfx do not get OOB alone; bed alarm stop smoking d/w pt and staff all the above
[2017-12-28] MEDS: metroNIDAZOLE 250 MG TABLET PO SCH ×3 (06:03→21:23)
[2017-12-28] MEDS: INSULIN SLIDING SCALE (NOVOLOG) 1 VIAL SQ SCH ×4 (06:03→21:24)
[2017-12-28] MEDS: SODIUM BICARBONATE 650 MG TABLET PO SCH ×3 (06:03→21:25)
[2017-12-28] MEDS: glipiZIDE 5 MG TABLET (FP) PO SCH (06:16)
[2017-12-28 06:31] LABS: BASO % 0.5 % (0-2.0); EOS % 4.2 % (0-4.5); HEMATOCRIT 20.5 % (32.4-45.2); HEMOGLOBIN 7.1 GM/dL (10.7-15.3); LYMPH % 15.3 % (8-40); MCH 32.4 pg (25.7-33.7); MCHC 34.8 g/dl (32.0-36.0); MEAN CELL VOLUME 93.3 fl (80-96); MEAN PLT VOLUME 8.2 fl (7.5-11.1); MONO % 9.1 % (3.8-10.2); NEUT % 70.9 % (42.8-82.8); PLATELET COUNT 275 K/MM3 (134-434); RDW 13.1 % (11.6-15.6); WHITE BLOOD COUNT 7.7 K/mm3 (4.0-10.0)
[2017-12-28] MEDS: ASPIRIN COATED 81 MG TABLET.EC PO SCH (09:09)
[2017-12-28] MEDS: FERROUS SO4 325 MG TABLET (FP) PO SCH ×2 (09:09→21:22)
[2017-12-28] MEDS: AMITRIPTYLINE HCL 25 MG TABLET (FP) PO SCH ×2 (09:09→21:22)
[2017-12-28] MEDS: PANTOPRAZOLE 20 MG TABLET (FP) PO SCH (09:09)
[2017-12-28] MEDS: NIFEdipine E.R 60 MG TABLET (UD) PO SCH ×2 (09:09→21:24)
[2017-12-28] MEDS: ISOSORBIDE MONONITRATE 30 MG TAB.SR.24H (FP) PO SCH (09:09)
[2017-12-28] MEDS: CHOLESTYRAMINE/ASPARTAME 4 GM PACKET PO SCH ×2 (09:15→21:25)
[2017-12-28] MEDS: METOPROLOL TARTRATE 50 MG TABLET (FP) PO SCH ×2 (09:15→21:23)
[2017-12-28] MEDS: NICOTINE 14 MG/24 HOURS TOPICAL PATCH TD SCH (09:45)
--- NOTE | 2017-12-28 09:51 | PN ---
Progress Note (short form) - Note Progress Note: Pt seen and examined. chart reviewed PRBCs already ordered O/E:Constitutional: Yes: Well Nourished, No Distress, Calm Eyes: Yes: Conjunctiva Clear HENT: Yes: Atraumatic Neck: Yes: Supple Cardiovascular: Yes: Regular Rate and Rhythm Respiratory: Yes: Regular, CTA Bilaterally Gastrointestinal: Yes: Normal Bowel Sounds, Soft Last Vital Signs Temp Pulse Resp BP Pulse Ox 98.4 F 68 20 137/62 98 12/28/17 02:00 12/28/17 06:00 12/28/17 06:00 12/28/17 06:00 12/27/17 22:00 CBC, BMP 12/28/17 06:05 Current Medications Generic Name Dose Route Start Last Admin Trade Name Freq PRN Reason Stop Dose Admin Alprazolam 0.25 mg 12/25/17 17:23 12/26/17 00:40 Xanax - PO 0.25 mg Q12H PRN Administration ANXIETY Amitriptyline HCl 25 mg 12/25/17 22:00 12/28/17 09:09 Elavil - PO 25 mg BID [facility] Administration Aspirin 81 mg 12/26/17 10:00 12/28/17 09:09 Ecotrin - PO 81 mg DAILY [facility] Administration Atorvastatin Calcium 10 mg 12/25/17 22:00 12/27/17 22:46 Lipitor - PO 10 mg HS [facility] Administration Cholestyramine Resin 4 gm 12/26/17 14:15 12/28/17 09:15 Questran Light Packet - PO 4 gm BID [facility] Administration Ferrous Sulfate 325 mg 12/25/17 22:00 12/28/17 09:09 Feosol - PO 325 mg BID [facility] Administration Glipizide 5 mg 12/26/17 07:00 12/28/17 06:16 Glucotrol - PO Not Given AM [facility] Insulin Aspart 1 vial 12/25/17 22:00 12/28/17 06:03 Novolog Vial Sliding Scale - SQ Not Given ACHS [facility] Protocol Isosorbide Mononitrate 30 mg 12/26/17 10:00 12/28/17 09:09 Imdur - PO 30 mg DAILY [facility] Administration Metoprolol Tartrate 100 mg 12/25/17 22:00 12/28/17 09:15 Lopressor - PO 100 mg BID [facility] Administration Metronidazole 500 mg 12/26/17 22:00 12/28/17 06:03 Flagyl - PO 500 mg TID [facility] Administration Nicotine 14 mg 12/28/17 10:00 12/28/17 09:45 Nicoderm Patch - TD 14 mg DAILY [facility] Administration Nifedipine 60 mg 12/25/17 22:00 12/28/17 09:09 Procardia Xl - PO 60 mg BID [facility] Administration Pantoprazole Sodium 20 mg 12/26/17 10:30 12/28/17 09:09 Protonix - PO 20 mg DAILY [facility] Administration Sodium Bicarbonate 650 mg 12/27/17 22:00 12/28/17 06:03 Sodium Bicarbonate - PO 650 mg TID [facility] Administration Normocytic anemia: Likely ACD/ACI in the setting of worsening CKD , also has now active infection. Will follow regular transfusions thresholds, PRBCs today JACOB/Venofer per renal protocol.( s/p doses yesterday) FOBT pending GI/Renal f/u noted d/w pt Pt says she has "long" work-up for her anemia and she was told "no cause". will follow
[2017-12-28 10:30] LABS: CHLORIDE 117 mmol/L (98-107); POTASSIUM 4.3 mmol/L (3.5-5.1); SODIUM 143 mmol/L (136-145)
[2017-12-28 10:44] LABS: ANION GAP 12 (8-16); BLOOD UREA NITROGEN 33 mg/dL (7-18); CO2 14 mmol/L (21-32); GLUCOSE,RANDOM 96 mg/dL (74-106); MAGNESIUM 1.6 mg/dL (1.8-2.4); PHOSPHOROUS 3.6 mg/dL (2.5-4.9)
[2017-12-28 10:50] LABS: CALCIUM 6.7 mg/dL (8.5-10.1)
--- NOTE | 2017-12-28 15:15 | PN ---
Progress Note, Physician History of Present Illness: Clinically the same. Hemoglobin 7.1 g/dL without signs of gastrointestinal blood loss. Had 1 loose bowel movement today. - Current Medication List Current Medications: Active Medications Alprazolam (Xanax -) 0.25 mg PO Q12H PRN PRN Reason: ANXIETY Last Admin: 12/26/17 00:40 Dose: 0.25 mg Amitriptyline HCl (Elavil -) 25 mg PO BID [facility] Last Admin: 12/28/17 09:09 Dose: 25 mg Aspirin (Ecotrin -) 81 mg PO DAILY [facility] Last Admin: 12/28/17 09:09 Dose: 81 mg Atorvastatin Calcium (Lipitor -) 10 mg PO HS [facility] Last Admin: 12/27/17 22:46 Dose: 10 mg Cholestyramine Resin (Questran Light Packet -) 4 gm PO BID [facility] Last Admin: 12/28/17 09:15 Dose: 4 gm Ferrous Sulfate (Feosol -) 325 mg PO BID [facility] Last Admin: 12/28/17 09:09 Dose: 325 mg Glipizide (Glucotrol -) 5 mg PO AM [facility] Last Admin: 12/28/17 06:16 Dose: Not Given Insulin Aspart (Novolog Vial Sliding Scale -) 1 vial SQ ACHS [facility] PRN Reason: Protocol Last Admin: 12/28/17 11:56 Dose: Not Given Isosorbide Mononitrate (Imdur -) 30 mg PO DAILY [facility] Last Admin: 12/28/17 09:09 Dose: 30 mg Metoprolol Tartrate (Lopressor -) 100 mg PO BID [facility] Last Admin: 12/28/17 09:15 Dose: 100 mg Metronidazole (Flagyl -) 500 mg PO TID [facility] Last Admin: 12/28/17 13:57 Dose: 500 mg Nicotine (Nicoderm Patch -) 14 mg TD DAILY [facility] Last Admin: 12/28/17 09:45 Dose: 14 mg Nifedipine (Procardia Xl -) 60 mg PO BID [facility] Last Admin: 12/28/17 09:09 Dose: 60 mg Pantoprazole Sodium (Protonix -) 20 mg PO DAILY [facility] Last Admin: 12/28/17 09:09 Dose: 20 mg Sodium Bicarbonate (Sodium Bicarbonate -) 650 mg PO TID [facility] Last Admin: 12/28/17 13:58 Dose: 650 mg - Objective Vital Signs: Vital Signs Temperature 98.2 F 12/28/17 14:05 Pulse Rate 56 L 12/28/17 14:05 Respiratory Rate 20 12/28/17 14:05 Blood Pressure 127/59 12/28/17 14:05 O2 Sat by Pulse Oximetry (%) 100 12/28/17 10:00 Labs: CBC, BMP 12/28/17 06:05 12/28/17 06:05 INR, PTT INR 0.99 (0.82-1.09) 12/25/17 09:54 Problem List - Problems (1) Diarrhea Code(s): R19.7 - DIARRHEA, UNSPECIFIED Qualifiers: Diarrhea type: unspecified type Qualified Code(s): R19.7 - Diarrhea, unspecified (2) Anemia Code(s): D64.9 - ANEMIA, UNSPECIFIED Assessment/Plan Multifactorial anemia. No overt signs ofgastrointestinal blood loss. No melena. Stool for Hemoccult was ordered 2. EGD and colonoscopy discussed with the patient - currently refuses. If stools positive for occult blood, we will revisit the EGD and colonoscopy with patient again. Continue supportive care. Monitor.
--- NOTE | 2017-12-28 17:30 | PN ---
Progress Note (short form) - Note Progress Note: Renal Follow up for CKD Pt seen and examined at the bedside no acute complaints diarrhea improving, only one episode today no N/V, SOB, chest pain, abd pain Vital Signs Temperature 98.2 F 12/28/17 14:05 Pulse Rate 56 L 12/28/17 14:05 Respiratory Rate 20 12/28/17 14:05 Blood Pressure 127/59 12/28/17 14:05 O2 Sat by Pulse Oximetry (%) 100 12/28/17 10:00 Intake & Output 12/25/17 12/26/17 12/27/17 12/28/17 23:59 23:59 23:59 23:59 Intake Total 769 450 2437 600 Balance 908 162 3290 600 Weight 56.699 kg NAD, well appearing CTA, no wheeze or rales soft NT/ND Abd, no bladder distension No LE edmea, cyanosis No asterxis awake and alert CBC, BMP 12/28/17 06:05 12/28/17 06:05 Current Medications Alprazolam (Xanax -) 0.25 mg PO Q12H PRN PRN Reason: ANXIETY Last Admin: 12/26/17 00:40 Dose: 0.25 mg Amitriptyline HCl (Elavil -) 25 mg PO BID [facility] Last Admin: 12/28/17 09:09 Dose: 25 mg Aspirin (Ecotrin -) 81 mg PO DAILY [facility] Last Admin: 12/28/17 09:09 Dose: 81 mg Atorvastatin Calcium (Lipitor -) 10 mg PO HS [facility] Last Admin: 12/27/17 22:46 Dose: 10 mg Cholestyramine Resin (Questran Light Packet -) 4 gm PO BID [facility] Last Admin: 12/28/17 09:15 Dose: 4 gm Ferrous Sulfate (Feosol -) 325 mg PO BID [facility] Last Admin: 12/28/17 09:09 Dose: 325 mg Glipizide (Glucotrol -) 5 mg PO AM [facility] Last Admin: 12/28/17 06:16 Dose: Not Given Insulin Aspart (Novolog Vial Sliding Scale -) 1 vial SQ ACHS [facility] PRN Reason: Protocol Last Admin: 12/28/17 17:09 Dose: Not Given Isosorbide Mononitrate (Imdur -) 30 mg PO DAILY [facility] Last Admin: 12/28/17 09:09 Dose: 30 mg Metoprolol Tartrate (Lopressor -) 100 mg PO BID [facility] Last Admin: 12/28/17 09:15 Dose: 100 mg Metronidazole (Flagyl -) 500 mg PO TID [facility] Last Admin: 12/28/17 13:57 Dose: 500 mg Nicotine (Nicoderm Patch -) 14 mg TD DAILY [facility] Last Admin: 12/28/17 09:45 Dose: 14 mg Nifedipine (Procardia Xl -) 60 mg PO BID [facility] Last Admin: 12/28/17 09:09 Dose: 60 mg Pantoprazole Sodium (Protonix -) 20 mg PO DAILY [facility] Last Admin: 12/28/17 09:09 Dose: 20 mg Sodium Bicarbonate (Sodium Bicarbonate -) 1,300 mg PO BID [facility] 82 year old woman with PMhx of 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
[2017-12-28] MEDS: ATORVASTATIN CA 10 MG TABLET (FP) PO SCH (21:23)
[2017-12-29 00:06] LABS: GLIADIN ANTIBODY IGA 7 units (0-19); GLIADIN ANTIBODY IGG 4 units (0-19); TRANSGLUTAMINASE IGG 4 U/mL (0-5)
[2017-12-29] MEDS: metroNIDAZOLE 250 MG TABLET PO SCH ×2 (06:32→13:35)
[2017-12-29] MEDS: INSULIN SLIDING SCALE (NOVOLOG) 1 VIAL SQ SCH ×2 (06:32→11:00)
[2017-12-29] MEDS: glipiZIDE 5 MG TABLET (FP) PO SCH (06:40)
[2017-12-29 07:29] LABS: BASO % 0.7 % (0-2.0); EOS % 4.3 % (0-4.5); HEMATOCRIT 29.8 % (32.4-45.2); HEMOGLOBIN 10.4 GM/dL (10.7-15.3); LYMPH % 17.6 % (8-40); MCH 31.9 pg (25.7-33.7); MCHC 34.9 g/dl (32.0-36.0); MEAN CELL VOLUME 91.3 fl (80-96); MEAN PLT VOLUME 8.4 fl (7.5-11.1); MONO % 11.6 % (3.8-10.2); NEUT % 65.8 % (42.8-82.8); PLATELET COUNT 283 K/MM3 (134-434); RBC 3.26 M/mm3 (3.60-5.2); RDW 14.6 % (11.6-15.6); WHITE BLOOD COUNT 8.7 K/mm3 (4.0-10.0)
[2017-12-29 07:51] LABS: ALBUMIN 2.5 g/dl (3.4-5.0); BLOOD UREA NITROGEN 32 mg/dL (7-18); CHLORIDE 118 mmol/L (98-107); POTASSIUM 4.5 mmol/L (3.5-5.1); SODIUM 145 mmol/L (136-145)
[2017-12-29 07:56] LABS: ALK PHOS 76 U/L (45-117); ANION GAP 8 (8-16); BILIRUBIN,TOTAL 0.3 mg/dL (0.2-1.0); CO2 19 mmol/L (21-32); CREATININE 4.2 mg/dL (0.55-1.02); GLUCOSE,RANDOM 76 mg/dL (74-106); SGOT/AST 15 U/L (15-37); SGPT/ALT 18 U/L (12-78); TOT PROT 5.4 g/dl (6.4-8.2)
[2017-12-29 08:22] LABS: CALCIUM 6.8 mg/dL (8.5-10.1)
--- NOTE | 2017-12-29 08:34 | DS ---
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 d/w pt in detail her current condition, diagnoses, treatment and plan for f/u; she feels sad and hopeless and upset and feels like we misunderstand them d/w Pat again that her renal fct is so low that she needs dialysis - however she does not want it, said she can not afford it, I asked pt and CM to discuss with renal dr about it; I d/w pt risks and possible consequences about not having dialysis - including but not limited to uremia, hyperkalemia, lethargy and arrhythmia associated with the above conditions, disability and ; she is aware, she understands all of the risks and said she would rather than to go on dialysis. t time spent with pt and staff 45 minutes Constitutional: Yes: No Distress, Anxious Eyes: Yes: Conjunctiva Clear HENT: Yes: Atraumatic Neck: Yes: Supple Cardiovascular: Yes: Regular Rate and Rhythm Respiratory: Yes: CTA Bilaterally Gastrointestinal: Yes: Soft. No: Distention, Tenderness Renal/: No: CVA Tenderness - Left, CVA Tenderness - Right Musculoskeletal: No: Joint Stiffness, Joint Swelling Extremities: No: Cold, Cool, Cyanosis Edema: No Integumentary: No: Rash, Venous Stasis Changes Neurological: Yes: WNL, Alert, Oriented ...Motor Strength: WNL Psychiatric: Yes: WNL, Alert, Oriented. No: Agitated, Suicidal Ideation Labs: CBC, BMP 12/29/17 06:15 12/29/17 06:15 Discharge Summary Reason For Visit: DIARRHEA; CHEST PAIN; DEHYDRATION Current Active Problems Anemia (Acute) Chest pain (Acute) Dehydration (Acute) Diarrhea (Acute) Procedures: Principal: admitted with diarrhea dehydration ARF anemia and weakness Other Procedures: seen by GI and renal drs; started on flagyl and cholestyramine ;. also received PRBC; UTI: po levaquin 3 days low dose; pt refused dialysis. PT rehab; needs SNF Hospital Course: see above; will transfer to SNF and f/u as advised Condition: Stable - Instructions Diet, Activity, Other Instructions: f/u PCP GI dr John and renal dr Goyal in 1- 2 weeks of DC home f/u cardiology dr Abbott and vascular surgery dr Yogesh Jane in 1 month stop smoking RTER if worse or recurrent c/o Referrals: Angela Barahona [Primary Care Provider] - Quentin Goyal MD [Staff Physician] - Patric John MD [Staff Physician] - [facility]position: [facility] - Home Medications Comprehensive Discharge Medication List: Ambulatory Orders Alprazolam 0.25 mg PO BID PRN 08/29/16 Amitriptyline HCl [Elavil -] 25 mg PO BID 08/29/16 Atorvastatin Ca [Lipitor] 10 mg PO HS 08/29/16 Ferrous Sulfate 325 mg PO BID 08/29/16 Glipizide [Glipizide ER] 2.5 mg PO HS PRN 08/29/16 Metoprolol Tartrate 100 mg PO BID 08/29/16 Nifedipine ER [Procardia XL -] 60 mg PO BID 08/29/16 Aspirin Coated [Ecotrin -] 81 mg PO DAILY tablet.ec 09/15/16 Isosorbide Mononitrate [Imdur -] 30 mg PO DAILY 04/06/17 Glipizide 5 mg PO DAILY 06/26/17 Cholestyramine/Aspartame [Questran Light Packet -] 1 pack PO DAILY 12/25/17 Sodium Acetate - [SODIUM ACETATE 40MEQ/20ML Vial] 657 mg PO BID 12/25/17 Sodium Bicarbonate - 325 mg PO BID 12/25/17
[2017-12-29] MEDS: CHOLESTYRAMINE/ASPARTAME 4 GM PACKET PO SCH (09:19)
[2017-12-29] MEDS: FERROUS SO4 325 MG TABLET (FP) PO SCH (09:27)
[2017-12-29] MEDS: METOPROLOL TARTRATE 50 MG TABLET (FP) PO SCH (09:27)
[2017-12-29] MEDS: ISOSORBIDE MONONITRATE 30 MG TAB.SR.24H (FP) PO SCH (09:27)
[2017-12-29] MEDS: SODIUM BICARBONATE 650 MG TABLET PO SCH (09:27)
[2017-12-29] MEDS: PANTOPRAZOLE 20 MG TABLET (FP) PO SCH (09:27)
[2017-12-29] MEDS: ASPIRIN COATED 81 MG TABLET.EC PO SCH (09:28)
[2017-12-29] MEDS: AMITRIPTYLINE HCL 25 MG TABLET (FP) PO SCH (09:29)
[2017-12-29] MEDS: NICOTINE 14 MG/24 HOURS TOPICAL PATCH TD SCH (09:29)
[2017-12-29] MEDS: NIFEdipine E.R 60 MG TABLET (UD) PO SCH (09:29)
[2017-12-29] MEDS ORDERED: ISOSORBIDE MONONITRATE 30 MG TAB.SR.24H (FP) PO SCH (10:00)
[2017-12-29] MEDS ORDERED: CALCITRIOL 0.25 MCG CAPSULE (FP) PO SCH (10:00)
[2017-12-29] MEDS ORDERED: NIFEdipine E.R. 30 MG TABLET (FP) PO SCH (10:00)
[2017-12-29] MEDS ORDERED: LACTOBACILLUS ACIDOPHILUS 1 TABLET PO SCH (10:00)
[2017-12-29] MEDS ORDERED: MUPIROCIN 2% TOPICAL OINTMENT FOR DECOLONIZATION NS SCH ×2 (11:00→11:15)
[2017-12-29] MEDS ORDERED: PT OWN MED DRAWER 7, Y5N ONE (13:34)
[2017-12-29] MEDS: ALPRAZolam 0.25 MG TABLET PO PRN (13:39)
[2017-12-29 14:01] VITALS: BP 132/68; PULSE 62; TEMP 97.8
[2018-01-03 14:13] LABS: VASOACTIVE INTEST, POLYPEPTIDE 30.9 pg/mL (0.0-58.8)
== END 2017-12-29 15:22 | DRG 372 ==
LOC: JER 09:20 → JERBED 14:42 → UNDOADMOB 14:42 → JERBED 16:12 → UNDOADMOB 16:12 → J4W 20:16 → JERBED 20:16 → OBSVTOIN 12-26 10:20 → INTOOBSV 12-26 10:20 → OBSVTOIN 12-27 10:27 → J4W 12-27 10:27 → JERBED 12-27 10:27
PROVIDERS: ADMIT Internal Medicine; ATTEND Internal Medicine
DX: A04.72 Enterocolitis due to Clostridium difficile, not specified as recurrent (principal); N18.5 Chronic kidney disease, stage 5; I12.0 Hypertensive chronic kidney disease with stage 5 chronic kidney disease or end stage renal disease; E87.2 Acidosis; B96.29 Other Escherichia coli [E. coli] as the cause of diseases classified elsewhere; E11.22 Type 2 diabetes mellitus with diabetic chronic kidney disease; E11.21 Type 2 diabetes mellitus with diabetic nephropathy; D89.0 Polyclonal hypergammaglobulinemia; E87.5 Hyperkalemia; E86.1 Hypovolemia; Z79.84 Long term (current) use of oral hypoglycemic drugs; D64.9 Anemia, unspecified; Z87.891 Personal history of nicotine dependence; E78.5 Hyperlipidemia, unspecified; I73.9 Peripheral vascular disease, unspecified; Z89.411 Acquired absence of right great toe; E83.51 Hypocalcemia; E86.0 Dehydration; Z79.4 Long term (current) use of insulin
CPT/HCPCS: 36415; 36430; 74176-TC; 80048; 80053; 80076; 81003; 81015; 82550; 82553; 82607; 82728; 82784; 82941; 82962; 83516; 83540; 83550; 83690; 83735; 84100; 84155; 84165; 84443; 84484; 84586; 85025; 85027; 85610; 85651; 86038; 86140; 86922; 87045; 87046; 87081; 87086; 87186; 87324; 87449; 93005; 93010; 97116-GP; 97161-GP; 99285-25; G0378; J0885; J1756; J7030; P9038; P9058

== ENCOUNTER 2018-05-05 10:35 | Inpatient (IN) | payer OTHER ==
[2018-05-05 10:49] VITALS: BMI 21.2
--- NOTE | 2018-05-05 11:15 | PDOC ---
Attending Attestation - Resident Resident Name: Joe Tinoco - ED Attending Attestation I have performed the following: I have examined & evaluated the patient, The case was reviewed & discussed with the resident, I agree w/resident's findings & plan, Exceptions are as noted - HPI HPI: 05/05/18 11:14 82yo F hx HTN, DM, CKD (BL 4) c/b chronic anemia presents to ED with outpt hgb 7.5. Last hgb was 10 two months ago. Endorses dark stools but attributes to taking iron. Denies CP, SOB, dizziness, abd pain, N/V/D, LE edema, rashes. Pt sent in by Dr. Barahona. - Physicial Exam PE: 05/05/18 11:19 agree with resident exam - Medical Decision Making 05/05/18 11:19 82yo F hx MMP including PAD, HTN, CKD presents to the ED with low hgb. Stool occult negative, repeat labs, discuss with Dr. Barahona 05/05/18 13:23 hGB 8. Allergist Immunologist up to 5. Given hx CV risk factors, will transfuse. Case discussed with Dr. Barahona, pt to be admitted to hospitalist obs. Case discussed in detail with admitting physician Dr. Whittaker including history, physical exam and ancillary studies. Admitting physician has assumed care for the patient, will follow all pending diagnostics and will complete the evaluation and treatment.
[2018-05-05 11:40] LABS: BASO % 1.1 % (0-2.0); HEMATOCRIT 23.9 % (32.4-45.2); LYMPH % 17.2 % (8-40); MCH 31.3 pg (25.7-33.7); MCHC 33.5 g/dl (32.0-36.0); MEAN CELL VOLUME 93.6 fl (80-96); MEAN PLT VOLUME 7.1 fl (7.5-11.1); MONO % 7.6 % (3.8-10.2); NEUT % 69.1 % (42.8-82.8); PLATELET COUNT 384 K/MM3 (134-434); RBC 2.56 M/mm3 (3.60-5.2); RDW 13.9 % (11.6-15.6); WHITE BLOOD COUNT 8.8 K/mm3 (4.0-10.0)
--- NOTE | 2018-05-05 11:51 | PDOC ---
History of Present Illness - General Chief Complaint: Revisit, Lab Variance Stated Complaint: PCP SENT Time Seen by Provider: 05/05/18 10:57 History Source: Patient Exam Limitations: No Limitations - History of Present Illness Initial Comments: 05/05/18 11:44 Patient is an 82F with history of HTN, DM, CKD, PAD, anemia here today complaining of abnormal lab results. She was told she was anemic by her PCP (Dr Angela Barahona) yesterday. Patient denies chest pain, shortness of breath, weakness , dyspnea on exertion, leg swelling, vomiting, and diarrhea. She states that she has had some dark stools, but states that this has not changed and is due to her taking iron. Denies fevers, chills, nausea. Denies leg swelling, pain with urination. Past History - Past Medical History Allergies/Adverse Reactions: Allergies Allergy/AdvReac Type Severity Reaction Status Date / Time iodine Allergy Rash Verified 05/05/18 10:50 penicillin V Allergy Verified 05/05/18 10:50 shellfish derived Allergy Rash Verified 05/05/18 10:50 vancomycin Allergy Verified 05/05/18 10:50 azithromycin AdvReac Verified 05/05/18 10:50 Home Medications: Ambulatory Orders Ferrous Sulfate 325 mg PO BID 08/29/16 Nifedipine ER [Procardia XL -] 60 mg PO BID 08/29/16 Aspirin Coated [Ecotrin -] 81 mg PO DAILY tablet.ec 09/15/16 Glipizide 5 mg PO DAILY 06/26/17 Calcitriol [Calcitriol -] 0.25 mcg PO DAILY capsule 12/29/17 Cholestyramine/Aspartame [Questran Light Packet -] 4 gm PO BID packet 12/29/17 Ferrous Sulfate [Feosol] 325 mg PO BID ud 12/29/17 Metoprolol Tartrate [Lopressor -] 100 mg PO BID tablet 12/29/17 Alprazolam [Xanax] 0.25 mg PO Q8H PRN 05/05/18 Amitriptyline HCl [Elavil -] 25 mg PO HS 05/05/18 Atorvastatin Ca [Lipitor] 10 mg PO HS 05/05/18 Furosemide [Lasix] 20 mg PO ASDIR PRN 05/05/18 Isosorbide Mononitrate [Imdur -] 30 mg PO DAILY 05/05/18 Ondansetron HCl [Zofran] 8 mg PO TID PRN 05/05/18 Sodium Bicarbonate - 650 mg PO BID 05/05/18 Anemia: Yes Asthma: No Cancer: No Cardiac Disorders: Yes (PAD) CVA: No COPD: No CHF: No DVT: No Dementia: No Diabetes: Yes GI Disorders: No Disorders: No HTN: Yes Hypercholesterolemia: Yes Liver Disease: No Seizures: No Thyroid Disease: No - Surgical History Abdominal Surgery: No Appendectomy: No Cardiac Surgery: Yes (FEMORAL BYPASS) Cholecystectomy: Yes Lung Surgery: No Neurologic Surgery: No Orthopedic Surgery: Yes (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) - Family Disease History Family Disease History: CA: Father (lung), Brother, Sister - Immunization History Immunization Up to Date: Yes - Suicide/Smoking/Psychosocial Hx Smoking Status: Yes Smoking History: Current every day smoker Have you smoked in the past 12 months: Yes Number of Cigarettes Smoked Daily: 20 If you are a former smoker, when did you quit?: 08/10/2012 Cigars Per Day: 30 Information on smoking cessation initiated: No 'Breaking Loose' booklet given: 12/25/17 Hx Alcohol Use: No Drug/Substance Use Hx: No Substance Use Type: None Hx Substance Use Treatment: No Review of Systems - Review of Systems Comments:: 05/05/18 11:51 GENERAL/CONSTITUTIONAL: No fever or chills. No weakness. HEAD, EYES, EARS, NOSE AND THROAT: No change in vision. No ear pain or discharge. No sore throat. CARDIOVASCULAR: No chest pain or shortness of breath RESPIRATORY: No cough, wheezing, or hemoptysis. GASTROINTESTINAL: No nausea, vomiting, diarrhea or constipation. GENITOURINARY: No dysuria, frequency, or change in urination. MUSCULOSKELETAL: No joint or muscle swelling or pain. No neck or back pain. SKIN: No rash NEUROLOGIC: No headache, vertigo, loss of consciousness, or change in strength/ sensation. ENDOCRINE: No increased thirst. No abnormal weight change HEMATOLOGIC/LYMPHATIC: No anemia, easy bleeding, or history of blood clots. ALLERGIC/IMMUNOLOGIC: No hives or skin allergy. *Physical Exam - Vital Signs Last Vital Signs Temp Pulse Resp BP Pulse Ox 98.7 F 73 18 152/55 100 05/05/18 10:43 05/05/18 10:43 05/05/18 10:43 05/05/18 10:43 05/05/18 10:43 - Physical Exam Comments: 05/05/18 11:51 GENERAL: Awake, alert, and fully oriented, in no acute distress HEAD: No signs of trauma, normocephalic, atraumatic EYES: PERRLA, EOMI, sclera anicteric, conjunctiva clear ENT: Auricles normal inspection, hearing grossly normal, nares patent, oropharynx clear without exudates. Moist mucosa NECK: Normal ROM, supple, no lymphadenopathy, JVD, or masses LUNGS: No distress, speaks full sentences, clear to auscultation bilaterally HEART: Regular rate and rhythm, normal S1 and S2, no murmurs, rubs or gallops, peripheral pulses normal and equal bilaterally. ABDOMEN: Soft, nontender, normoactive bowel sounds. No guarding, no rebound. No masses EXTREMITIES: Normal inspection, Normal range of motion, no edema. No clubbing or cyanosis. NEUROLOGICAL: Cranial nerves II through XII grossly intact. Normal speech, normal gait, no focal sensorimotor deficits SKIN: Warm, Dry, normal turgor, no rashes or lesions noted. ED Treatment Course - LABORATORY CBC & Chemistry Diagram: 05/05/18 11:16 05/05/18 11:16 - ADDITIONAL ORDERS Additional order review: 05/05/18 11:16 RBC 2.56 L MCV 93.6 MCHC 33.5 RDW 13.9 MPV 7.1 L Neutrophils % 69.1 Lymphocytes % 17.2 Monocytes % 7.6 Eosinophils % 5.0 H Basophils % 1.1 - RADIOLOGY Radiology Studies Ordered: Category Date Time Status CXRPORT [CHEST X-RAY PORTABLE*] [RAD] Stat Radiology 05/05/18 11:13 Completed Medical Decision Making - Medical Decision Making 05/05/18 11:51 Patient is 82F with history of HTN, DM, CKD, anemia here today with hgb of 7.5 as outpatient. Vital signs normal and stable. Asymptomatic. Will recheck labs, do stool for occult blood. Will call Dr Barahona with results. EKG shows normal sinus rhythm with rate of 68. No st elevations/depressions. Normal t wave morphology. Normal axis. Normal intervals. CXR shows no acute cardiopulmonary process. Rectal exam shows no gross blood, stool for occult blood sent. Pending CBC/CMP/FOBT. 05/05/18 12:50 Laboratory Tests 05/05/18 05/05/18 05/05/18 11:16 11:16 11:50 WBC 8.8 Hgb 8.0 L Plt Count 384 BUN 49 H Creatinine 5.1 H Stool Occult Blood Negative Hgb 8, improved. Cr 5.1, highest for patient. FOBT negative. Believe patient's anemia likely 2/2 renal failure. D/w Dr Barahona, who requests transfusion and starting patient on dialysis. Patient is agreeing to transfusion, refusing dialysis. Will transfuse one unit and place in observation. 05/05/18 13:[address] Whittaker. *DC/Admit/Observation/Transfer Diagnosis at time of Disposition: Anemia - Discharge Dispostion Condition at time of disposition: Stable Decision to Admit order: Yes - Referrals Referrals: Angela Barahona [Primary Care Provider] - - Patient Instructions - Post Discharge Activity
[2018-05-05 12:10] LABS: INR 0.99 (0.83-1.09); PROTHROMBIN TIME (PATIENT) 11.2 SEC (9.7-13.0)
[2018-05-05 12:21] LABS: ALBUMIN 2.7 g/dl (3.4-5.0); ALK PHOS 68 U/L (45-117); ANION GAP 9 MMOL/L (8-16); BILIRUBIN,TOTAL 0.2 mg/dL (0.2-1.0); BLOOD UREA NITROGEN 49 mg/dL (7-18); CALCIUM 7.7 mg/dL (8.5-10.1); CHLORIDE 111 mmol/L (98-107); CO2 21 mmol/L (21-32); CREATININE 5.1 mg/dL (0.55-1.3); GLUCOSE,RANDOM 114 mg/dL (74-106); SGOT/AST 17 U/L (15-37); SGPT/ALT 18 U/L (13-61); SODIUM 141 mmol/L (136-145); TOT PROT 6.5 g/dl (6.4-8.2)
[2018-05-05] MEDS ORDERED: FUROSEMIDE 40 MG/4 ML INJECTABLE VIAL IVPUSH ONE (13:31)
[2018-05-05] MEDS ORDERED: ONDANSETRON 8 MG TABLET (FP) PO PRN (13:34)
[2018-05-05] MEDS ORDERED: ALPRAZolam 0.25 MG TABLET PO PRN (13:34)
--- NOTE | 2018-05-05 13:38 | HP ---
Admitting History and Physical - Admission Chief Complaint: shortness of breath with exertion. History of Present Illness: 82 /o female with hx of chronic anemia, CKD stage 5, HTN , presented to the hospital for the hospital for shortness of breath from symptomatic anemia. Limitations to Obtaining History: No Limitations, Clinical Condition - Past Medical History Cardiovascular: Yes: HTN, Hyperlipdemia, Murmur, Other (PAD) Pulmonary: Yes: Asthma, COPD Hepatobiliary: Yes: Cholelithiasis Renal/: Yes: Renal Inusuff Heme/Onc: Yes: Anemia Infectious Disease: Yes: Other (history of osteomyelitis in the past) Endocrine: Yes: Diabetes Mellitus - Past Surgical History Past Surgical History: Yes: Amputation (1-st R toe amputation), Bypass (Right fem pop bypass) - Smoking History Smoking history: Current every day smoker Have you smoked in the past 12 months: Yes Aproximately how many cigarettes per day: 20 If you are a former smoker, when did you quit?: 08/10/2012 - Alcohol/Substance Use Hx Alcohol Use: No History of Substance Use: reports: None - Social History ADL: Independent 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, 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, 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 Travel: No Home Medications - Allergies Allergies/Adverse Reactions: Allergies Allergy/AdvReac Type Severity Reaction Status Date / Time iodine Allergy Rash Verified 05/05/18 10:50 penicillin V Allergy Verified 05/05/18 10:50 shellfish derived Allergy Rash Verified 05/05/18 10:50 vancomycin Allergy Verified 05/05/18 10:50 azithromycin AdvReac Verified 05/05/18 10:50 - Home Medications Home Medications: Ambulatory Orders Ferrous Sulfate 325 mg PO BID 08/29/16 Nifedipine ER [Procardia XL -] 60 mg PO BID 08/29/16 Aspirin Coated [Ecotrin -] 81 mg PO DAILY tablet.ec 09/15/16 Glipizide 5 mg PO DAILY 06/26/17 Calcitriol [Calcitriol -] 0.25 mcg PO DAILY capsule 12/29/17 Cholestyramine/Aspartame [Questran Light Packet -] 4 gm PO BID packet 12/29/17 Ferrous Sulfate [Feosol] 325 mg PO BID ud 12/29/17 Metoprolol Tartrate [Lopressor -] 100 mg PO BID tablet 12/29/17 Alprazolam [Xanax] 0.25 mg PO Q8H PRN 05/05/18 Amitriptyline HCl [Elavil -] 25 mg PO HS 05/05/18 Atorvastatin Ca [Lipitor] 10 mg PO HS 05/05/18 Furosemide [Lasix] 20 mg PO ASDIR PRN 05/05/18 Isosorbide Mononitrate [Imdur -] 30 mg PO DAILY 05/05/18 Ondansetron HCl [Zofran] 8 mg PO TID PRN 05/05/18 Sodium Bicarbonate - 650 mg PO BID 05/05/18 Family Disease History - Family Disease History Family Disease History: CA: Father (lung ca), Mother (, lung ca), Sister (lung ca) Physical Examination Vital Signs: Vital Signs Temperature 98.7 F 05/05/18 10:43 Pulse Rate 73 05/05/18 10:43 Respiratory Rate 18 05/05/18 10:43 Blood Pressure 152/55 05/05/18 10:43 O2 Sat by Pulse Oximetry (%) 100 05/05/18 10:43 Constitutional: Yes: Well Nourished, No Distress, Calm Eyes: Yes: WNL, Conjunctiva Clear, EOM Intact HENT: Yes: WNL, Atraumatic, Normocephalic Neck: Yes: WNL, Supple, Trachea Midline Cardiovascular: Yes: WNL, Regular Rate and Rhythm Respiratory: Yes: WNL, Regular, CTA Bilaterally Gastrointestinal: Yes: WNL, Normal Bowel Sounds, Soft Musculoskeletal: Yes: WNL Extremities: Yes: WNL Labs: CBC, BMP 05/05/18 11:16 05/05/18 11:16 Imaging - Results Chest X-ray: Image Reviewed Problem List - Problems (1) CKD stage 5 secondary to hypertension Assessment/Plan: stable c/w nephrology follow up Code(s): I12.0 - HYP CHR KIDNEY DISEASE W STAGE 5 CHR KIDNEY DISEASE OR ESRD; N18.5 - CHRONIC KIDNEY DISEASE, STAGE 5 (2) Anemia Assessment/Plan: stable can be 2/2 Anemia of chronic disease due kidney disease transfuse 2 units of blood give 20mg IVP lasix during transfusion and after transfusion Code(s): D64.9 - ANEMIA, UNSPECIFIED Qualifiers: Anemia type: iron deficiency (3) Anxiety Assessment/Plan: x/w alprazolam Code(s): F41.9 - ANXIETY DISORDER, UNSPECIFIED (4) CAD (coronary artery disease) Assessment/Plan: stable c/w aspirin Code(s): I25.10 - ATHSCL HEART DISEASE OF [place] CORONARY ARTERY W/O ANG PCTRS Qualifiers: Coronary Disease-Associated Artery/Lesion type: [place] artery [place] vs. 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
[2018-05-05] MEDS ORDERED: FUROSEMIDE 40 MG/4 ML INJECTABLE VIAL ONE (18:51)
[2018-05-05] MEDS ORDERED: METOPROLOL TARTRATE 50 MG TABLET (FP) ONE (21:11)
[2018-05-05] MEDS ORDERED: NIFEdipine 10 MG CAPSULE (FP) ONE (21:12)
[2018-05-05] MEDS ORDERED: AMITRIPTYLINE HCL 25 MG TABLET (FP) ONE (21:12)
[2018-05-05] MEDS ORDERED: NIFEdipine E.R 60 MG TABLET (UD) PO SCH (22:00)
[2018-05-05] MEDS ORDERED: METOPROLOL TARTRATE 50 MG TABLET (FP) PO SCH (22:00)
[2018-05-05] MEDS ORDERED: CHOLESTYRAMINE/ASPARTAME 4 GM PACKET PO SCH (22:00)
[2018-05-05] MEDS ORDERED: SODIUM BICARBONATE 650 MG TABLET PO SCH (22:00)
[2018-05-05] MEDS ORDERED: AMITRIPTYLINE HCL 25 MG TABLET (FP) PO SCH (22:00)
[2018-05-05] MEDS ORDERED: ATORVASTATIN CA 10 MG TABLET (FP) PO SCH (22:00)
[2018-05-05] MEDS ORDERED: FERROUS SO4 325 MG TABLET (FP) PO SCH (22:00)
[2018-05-05 22:16] VITALS: TEMP 98.4
[2018-05-06] MEDS ORDERED: ONDANSETRON 4 MG TABLET PO PRN (05:25)
--- NOTE | 2018-05-06 06:03 | HOSP ---
Subjective - Review of Symptoms Events since last encounter: Hospitalist Encounter Was asked by the RN to see the patient who is refusing further care and wants to sign out AMA. Subjective: Arrived to [facility], patient was standing at the nursing station. Patient is alert, awake and oriented. Patient adamantly refuses further care or treatment. Patient requests to go outside to smoke and wants a sleeping pill. Advised patient that the facility is smoke free, but that I could give her a sleep aid, patient declined and insisted on signing out AMA. Risks and Dangers including Stroke, [place], were fully explained, patient verbalized understanding. The RN obtained vitals and removed her IV site. Patient left the unit ambulatory with her Rollator accompanied with a EXPLOSIVE OPERATOR FUSE @0501 Physical Examination Vital Signs: Vital Signs Temperature 98.4 F 05/05/18 21:36 Pulse Rate 68 05/05/18 22:02 Respiratory Rate 20 05/05/18 22:02 Blood Pressure 164/72 05/05/18 22:02 O2 Sat by Pulse Oximetry (%) 98 05/05/18 22:02 Constitutional: Yes: No Distress, Anxious, Pallor, Thin Eyes: Yes: Conjunctiva Clear, EOM Intact, PERRL HENT: Yes: WNL, Atraumatic, Normocephalic Neck: Yes: WNL, Supple, Trachea Midline Cardiovascular: Yes: WNL, Regular Rate and Rhythm, S1, S2 Respiratory: Yes: WNL, Regular, CTA Bilaterally Gastrointestinal: Yes: WNL, Normal Bowel Sounds, Soft Breast(s): Yes: WNL Musculoskeletal: Yes: WNL Extremities: Yes: WNL Edema: No Peripheral Pulses WNL: Yes Neurological: Yes: WNL, Alert, Oriented, Cran Nerves II-XII Intact ...Motor Strength: WNL Psychiatric: Yes: Alert, Oriented, Agitated Labs: CBC, BMP 05/05/18 11:16 05/05/18 11:16 Laboratory Results - last 24 hr 05/05/18 05/05/18 05/05/18 11:16 11:16 11:16 WBC 8.8 RBC 2.56 L Hgb 8.0 L Hct 23.9 L MCV 93.6 MCH 31.3 MCHC 33.5 RDW 13.9 Plt Count 384 MPV 7.1 L Absolute Neuts (auto) 6.1 Neutrophils % 69.1 Lymphocytes % 17.2 Monocytes % 7.6 Eosinophils % 5.0 H Basophils % 1.1 Nucleated RBC % 0 PT with INR 11.20 INR 0.99 Sodium 141 Potassium 5.0 Chloride 111 H Carbon Dioxide 21 Anion Gap 9 BUN 49 H Creatinine 5.1 H Creat Clearance w eGFR 8.14 Random Glucose 114 H Calcium 7.7 L Total Bilirubin 0.2 AST 17 ALT 18 Alkaline Phosphatase 68 Total Protein 6.5 Albumin 2.7 L Stool Occult Blood Blood Type Antibody Screen Crossmatch 05/05/18 05/05/18 11:16 11:50 WBC RBC Hgb Hct MCV MCH MCHC RDW Plt Count MPV Absolute Neuts (auto) Neutrophils % Lymphocytes % Monocytes % Eosinophils % Basophils % Nucleated RBC % PT with INR INR Sodium Potassium Chloride Carbon Dioxide Anion Gap BUN Creatinine Creat Clearance w eGFR Random Glucose Calcium Total Bilirubin AST ALT Alkaline Phosphatase Total Protein Albumin Stool Occult Blood Negative Blood Type B POSITIVE Antibody Screen Negative Crossmatch See Detail Current Medications Generic Name Dose Route Start Last Admin Trade Name Freq PRN Reason Stop Dose Admin Alprazolam 0.25 mg 05/05/18 13:34 Xanax - PO Q8H PRN ANXIETY Amitriptyline HCl 25 mg 05/05/18 22:00 05/05/18 21:02 Elavil - PO 25 mg HS BEATRIZ Administration Aspirin 81 mg 05/06/18 10:00 Ecotrin - PO DAILY BEATRIZ Atorvastatin Calcium 10 mg 05/05/18 22:00 05/05/18 23:11 Lipitor - PO 10 mg HS BEATRIZ Administration Calcitriol 0.25 mcg 05/06/18 10:00 Rocaltrol - PO DAILY BEATRIZ Cholestyramine Resin 4 gm 05/05/18 22:00 05/05/18 23:11 Questran Light Packet - PO 4 gm BID BEATRIZ Administration Ferrous Sulfate 325 mg 05/05/18 22:00 05/05/18 23:11 Feosol - PO 325 mg BID BEATRIZ Administration Isosorbide Mononitrate 30 mg 05/06/18 10:00 Imdur - PO DAILY BEATRIZ Metoprolol Tartrate 100 mg 05/05/18 22:00 05/05/18 21:02 Lopressor - PO 100 mg BID BEATRIZ Administration Nifedipine 60 mg 05/05/18 22:00 05/05/18 21:36 Procardia Xl - PO 60 mg BID BEATRIZ Administration Ondansetron HCl 8 mg 05/06/18 05:25 Zofran - PO Q8H PRN NAUSEA Sodium Bicarbonate 650 mg 05/05/18 22:00 05/05/18 23:11 Sodium Bicarbonate - PO 650 mg BID BEATRIZ Administration Last Vital Signs Temp Pulse Resp BP Pulse Ox 98.4 F 72 18 136/72 98 05/05/18 21:36 05/06/18 05:50 05/06/18 05:50 05/06/18 05:50 05/05/18 22:02
--- NOTE | 2018-05-06 06:15 | DS ---
Physical Examination Vital Signs: Vital Signs Temperature 98.4 F 05/05/18 21:36 Pulse Rate 68 05/05/18 22:02 Respiratory Rate 20 05/05/18 22:02 Blood Pressure 164/72 05/05/18 22:02 O2 Sat by Pulse Oximetry (%) 98 05/05/18 22:02 Constitutional: Yes: Anxious, Pallor, Thin Eyes: Yes: Conjunctiva Clear, EOM Intact, PERRL HENT: Yes: WNL, Atraumatic, Normocephalic Neck: Yes: WNL, Supple, Trachea Midline Cardiovascular: Yes: WNL, Regular Rate and Rhythm, S1, S2 Respiratory: Yes: WNL, Regular, CTA Bilaterally Gastrointestinal: Yes: WNL, Normal Bowel Sounds, Soft Renal/: Yes: WNL Breast(s): Yes: WNL Musculoskeletal: Yes: WNL Extremities: Yes: WNL Edema: No Peripheral Pulses WNL: Yes Neurological: Yes: WNL, Alert, Oriented, Cran Nerves II-XII Intact ...Motor Strength: WNL Psychiatric: Yes: Alert, Oriented, Agitated Labs: CBC, BMP 05/05/18 11:16 05/05/18 11:16 Discharge Summary Reason For Visit: ANEMIA Current Active Problems CKD stage 5 secondary to hypertension (Acute) Insulin dependent diabetes mellitus (Acute) Hospital Course: Patient received one unit of PRBC and Lasix post transfusion in the ED Patient had a chest xray weaker inspiration central crowding, no infiltration no failure Condition: Unchanged/Unknown - Instructions Diet, Activity, Other Instructions: Patient advised to follow up with her PCP in 2 days for CBC check Patient advised to return to the ED for SOB, Dizziness, CP or Palpitations Referrals: Angela Barahona [Primary Care Provider] - Disposition: AGAINST MEDICAL ADVICE - Home Medications Comprehensive Discharge Medication List: Ambulatory Orders Ferrous Sulfate 325 mg PO BID 08/29/16 Nifedipine ER [Procardia XL -] 60 mg PO BID 08/29/16 Aspirin Coated [Ecotrin -] 81 mg PO DAILY tablet.ec 09/15/16 Glipizide 5 mg PO DAILY 06/26/17 Calcitriol [Calcitriol -] 0.25 mcg PO DAILY capsule 12/29/17 Cholestyramine/Aspartame [Questran Light Packet -] 4 gm PO BID packet 12/29/17 Ferrous Sulfate [Feosol] 325 mg PO BID ud 12/29/17 Metoprolol Tartrate [Lopressor -] 100 mg PO BID tablet 12/29/17 Alprazolam [Xanax] 0.25 mg PO Q8H PRN 05/05/18 Amitriptyline HCl [Elavil -] 25 mg PO HS 05/05/18 Atorvastatin Ca [Lipitor] 10 mg PO HS 05/05/18 Furosemide [Lasix] 20 mg PO ASDIR PRN 05/05/18 Isosorbide Mononitrate [Imdur -] 30 mg PO DAILY 05/05/18 Ondansetron HCl [Zofran] 8 mg PO TID PRN 05/05/18 Sodium Bicarbonate - 650 mg PO BID 05/05/18 This patient is new to me today: Yes Date on this admission: 05/06/18 Emergency Visit: Yes ED Registration Date: 05/05/18 Care time: The patient presented to the Emergency Department on the above date and was hospitalized for further evaluation of their emergent condition. Critical Care patient: No - Discharge Referral Referred to [facility] No
[2018-05-06] MEDS ORDERED: glipiZIDE 5 MG TABLET (FP) PO SCH (07:00)
[2018-05-06 07:47] VITALS: BP 136/72; PULSE 72
[2018-05-06] MEDS ORDERED: CALCITRIOL 0.25 MCG CAPSULE (FP) PO SCH (10:00)
[2018-05-06] MEDS ORDERED: ASPIRIN COATED 81 MG TABLET.EC PO SCH (10:00)
[2018-05-06] MEDS ORDERED: ISOSORBIDE MONONITRATE 30 MG TAB.SR.24H (FP) PO SCH (10:00)
--- NOTE | 2018-05-06 21:36 | EKG ---
Test Reason : Blood Pressure : / mmHG Vent. Rate : 068 BPM Atrial Rate : 068 BPM P-R Int : 174 ms QRS Dur : 076 ms QT Int : 416 ms P-R-T Axes : 039 035 101 degrees QTc Int : 442 ms NORMAL SINUS RHYTHM ABNORMAL QRS-T ANGLE, CONSIDER PRIMARY T WAVE ABNORMALITY ABNORMAL ECG WHEN COMPARED WITH ECG OF 25-DEC-2017 10:34, ST NO LONGER DEPRESSED IN LATERAL LEADS NONSPECIFIC T WAVE ABNORMALITY NO LONGER EVIDENT IN INFERIOR LEADS Confirmed by ARTURO BANKS MD ([id number]) on 05/06/2018 9:36:27 PM Referred By: Confirmed By:ARTURO BANKS MD
== END 2018-05-06 06:55 | disposition left against medical advice (07) | DRG 812 ==
LOC: JER 10:35 → JERBED 13:23 → J4S 22:22
PROVIDERS: ADMIT Internal Medicine; ATTEND Internal Medicine
PROC: 30233N1 Transfusion of Nonautologous Red Blood Cells into Peripheral Vein, Percutaneous Approach (ICD-10-PCS; principal; 2018-05-05)
DX: D64.9 Anemia, unspecified (principal); I12.0 Hypertensive chronic kidney disease with stage 5 chronic kidney disease or end stage renal disease; N18.5 Chronic kidney disease, stage 5; F41.9 Anxiety disorder, unspecified; I25.10 Atherosclerotic heart disease of native coronary artery without angina pectoris; J44.9 Chronic obstructive pulmonary disease, unspecified; E11.22 Type 2 diabetes mellitus with diabetic chronic kidney disease; F17.210 Nicotine dependence, cigarettes, uncomplicated
CPT/HCPCS: 36415; 36430; 71045-TC-FY; 80053; 82272; 85025; 85610; 86850; 86900; 86901; 86922; 93005; 93010; 99285-25; P9038; P9058

== ENCOUNTER 2018-05-06 05:53 | Emergency (ER) | payer OTHER ==
[2018-05-06 06:31] VITALS: BP 132/98; PULSE 61; TEMP 98.5; BMI 21.6
--- NOTE | 2018-05-06 07:09 | PDOC ---
History of Present Illness - General Chief Complaint: Weakness Stated Complaint: WEAKNESS Time Seen by Provider: 05/06/18 07:09 - History of Present Illness Initial Comments: 05/06/18 08:35 The patient is an 82 year old female with a history of HTN, HLD, DM, Anemia who presents for evaluation of weakness. The patient reports that she was admitted 1-2 days ago due to generalized weakness and was noted to be anemic. She received 1 unit of PRBC, however she left AMA yesterday evening and returns this morning for repeat blood work. The patient states that she is now otherwise asymptomatic and otherwise denies fevers, chills, SOB, chest pain, nausea, vomiting, abdominal pain, numbness, tingling, weakness, or changes with urination or bowel movements. Past History - Past Medical History Allergies/Adverse Reactions: Allergies Allergy/AdvReac Type Severity Reaction Status Date / Time iodine Allergy Rash Verified 05/06/18 06:29 penicillin V Allergy Verified 05/06/18 06:29 shellfish derived Allergy Rash Verified 05/06/18 06:29 vancomycin Allergy Verified 05/06/18 06:29 azithromycin AdvReac Verified 05/06/18 06:29 Home Medications: Ambulatory Orders Ferrous Sulfate 325 mg PO BID 08/29/16 Nifedipine ER [Procardia XL -] 60 mg PO BID 08/29/16 Aspirin Coated [Ecotrin -] 81 mg PO DAILY tablet.ec 09/15/16 Glipizide 5 mg PO DAILY 06/26/17 Calcitriol [Calcitriol -] 0.25 mcg PO DAILY capsule 12/29/17 Cholestyramine/Aspartame [Questran Light Packet -] 4 gm PO BID packet 12/29/17 Ferrous Sulfate [Feosol] 325 mg PO BID ud 12/29/17 Metoprolol Tartrate [Lopressor -] 100 mg PO BID tablet 12/29/17 Alprazolam [Xanax] 0.25 mg PO Q8H PRN 05/05/18 Amitriptyline HCl [Elavil -] 25 mg PO HS 05/05/18 Atorvastatin Ca [Lipitor] 10 mg PO HS 05/05/18 Furosemide [Lasix] 20 mg PO ASDIR PRN 05/05/18 Isosorbide Mononitrate [Imdur -] 30 mg PO DAILY 05/05/18 Ondansetron HCl [Zofran] 8 mg PO TID PRN 05/05/18 Sodium Bicarbonate - 650 mg PO BID 05/05/18 Anemia: Yes Asthma: No Cancer: No Cardiac Disorders: Yes (PAD) CVA: No COPD: No CHF: No DVT: No Dementia: No Diabetes: Yes GI Disorders: No Disorders: No HTN: Yes Hypercholesterolemia: Yes Liver Disease: No Seizures: No Thyroid Disease: No - Surgical History Abdominal Surgery: No Appendectomy: No Cardiac Surgery: Yes (FEMORAL BYPASS) Cholecystectomy: Yes Lung Surgery: No Neurologic Surgery: No Orthopedic Surgery: Yes (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) - Family Disease History Family Disease History: CA: Father (lung), Brother, Sister - Immunization History Immunization Up to Date: Yes - Suicide/Smoking/Psychosocial Hx Smoking Status: Yes Smoking History: Current every day smoker Have you smoked in the past 12 months: Yes Number of Cigarettes Smoked Daily: 10 If you are a former smoker, when did you quit?: 08/10/2012 Cigars Per Day: 30 Information on smoking cessation initiated: No 'Breaking Loose' booklet given: 12/25/17 Hx Alcohol Use: No Drug/Substance Use Hx: No Substance Use Type: None Hx Substance Use Treatment: No Review of Systems - Review of Systems Comments:: 05/06/18 08:38 Constitutional: No fevers, chills, fatigue, malaise HEENT: No Rhinorrhea, nasal congestion, visual changes Cardiovascular: No chest pain, syncope, palpitations, lightheadedness Respiratory: No Cough, SOB, Hemoptysis, Gastrointestinal: No Abdominal pain, Nausea, Vomiting, Constipation, Diarrhea, Melena Genitourinary: No Dysuria, Frequency, Urgency, Hesitancy, Hematuria, Flank pain Musculoskeletal: No Myalgia, arthralgia Skin: No rashes, itching, bruising, pallor Neurologic: No Headache, Dizziness, Numbness, Weakness, or Tingling Psychiatric: No Hallucinations. No SI or HI *Physical Exam - Vital Signs Last Vital Signs Temp Pulse Resp BP Pulse Ox 98.5 F 61 18 132/98 99 05/06/18 06:29 05/06/18 06:29 05/06/18 06:29 05/06/18 06:29 05/06/18 06:29 - Physical Exam Comments: 05/06/18 08:39 General Appearance: Nourished. No Apparent Distress HEENT: EOMI, CHRISTINA. No Pharyngeal Erythema, Tonsillar Exudate, Tonsillar Erythema Neck: No Cervical Lymphadenopathy Respiratory/Chest: Lungs Clear, Normal Breath Sounds. No Crackles, Rales, Rhonchi, Wheezing Cardiovascular: Regular Rhythm, Regular Rate. No Murmur, Gallops, Rubs Gastrointestinal/Abdominal: Normal Bowel Sounds, Soft. No Guarding, Rebound, Tenderness Musculoskeletal: No CVA Tenderness Extremity: Normal Capillary Refill Integumentary: Normal Color, Dry, Warm Neurologic: Fully Oriented, Alert, Normal Mood/Affect, Normal Response, Motor Strength 5/5, ED Treatment Course - LABORATORY CBC & Chemistry Diagram: 05/06/18 07:45 05/06/18 07:45 Medical Decision Making - Medical Decision Making 05/06/18 08:39 The patient is an 82 year old female with a history of HTN, HLD, DM, Anemia who presents for evaluation of weakness. Differential includes but is not limited to: Anemia, infectious, metabolic derangement. Given the patient's history and physical exam, we obtained a cbc and cmp to evaluate further. CBC demonstrates improving hgb to 8.9. We discussed the case with the patient's primary care provider Dr. Barahona and are comfortable discharging the patient home with primary care provider follow up. We discussed the results, plan, and return precautions with the patient who voiced understanding and is agreeable with the plan. *DC/Admit/Observation/Transfer Diagnosis at time of Disposition: Anemia Qualifiers: Anemia type: unspecified type Qualified Code(s): D64.9 - Anemia, unspecified - Discharge Dispostion Disposition: HOME Condition at time of disposition: Good - Referrals Referrals: Angela Barahona [Primary Care Provider] - - Patient Instructions Printed Discharge Instructions: DI for Iron Deficiency Anemia-Adult Additional Instructions: Your repeat Hgb is 8.9. Please follow up with your primary care physician. Call to schedule an appointment. - Post Discharge Activity
[2018-05-06 07:54] LABS: BASO % 1.6 % (0-2.0); EOS % 5.6 % (0-4.5); HEMATOCRIT 26.2 % (32.4-45.2); HEMOGLOBIN 8.9 GM/dL (10.7-15.3); LYMPH % 18.6 % (8-40); MCH 31.1 pg (25.7-33.7); MEAN CELL VOLUME 91.2 fl (80-96); MEAN PLT VOLUME 7.1 fl (7.5-11.1); MONO % 9.9 % (3.8-10.2); NEUT % 64.3 % (42.8-82.8); PLATELET COUNT 338 K/MM3 (134-434); RBC 2.87 M/mm3 (3.60-5.2); RDW 15.5 % (11.6-15.6); WHITE BLOOD COUNT 8.4 K/mm3 (4.0-10.0)
--- NOTE | 2018-05-06 08:12 | PDOC ---
Attending Attestation - Resident Resident Name: Ross Guerrier - ED Attending Attestation I have performed the following: I have examined & evaluated the patient, The case was reviewed & discussed with the resident, I agree w/resident's findings & plan, Exceptions are as noted - HPI HPI: 05/06/18 08:11 82-year-old female with history of hypertension, diabetes, chronic kidney disease, peripheral arterial disease, anemia presents back for repeat CBC check. The patient was admitted yesterday for anemia on her routine blood work. She was transfused one unit of PRBCs yesterday. The patient was admitted but had a bad interaction with one of the staff members in the hospital and left AGAINST MEDICAL ADVICE. Patient reports she never got a repeat CBC so came to the ER today for checkup. She currently has no complaints. - Physicial Exam PE: 05/06/18 08:11 GENERAL: Awake, alert, and fully oriented, in no acute distress HEAD: No signs of trauma EYES: EOMI, sclera anicteric, conjunctiva clear ENT: Auricles normal inspection, hearing grossly normal, nares patent, Moist mucosa NECK: Normal ROM, supple, no lymphadenopathy, JVD, or masses LUNGS: Breath sounds equal, clear to auscultation bilaterally. No wheezes, and no crackles HEART: Regular rate and rhythm, normal S1 and S2, no murmurs, rubs or gallops EXTREMITIES: Normal range of motion, no edema. No clubbing or cyanosis. No cords, erythema, or tenderness NEUROLOGICAL: Cranial nerves II through XII grossly intact. Normal speech SKIN: Warm, Dry, normal turgor, no rashes or lesions noted. - Medical Decision Making 05/06/18 08:11 Vital Signs Temp Pulse Resp BP Pulse Ox 98.5 F 61 18 132/98 99 05/06/18 06:29 05/06/18 06:29 05/06/18 06:29 05/06/18 06:29 05/06/18 06:29 Patient is here for repeat CBC. CBC reviewed and noted hemoglobin 8.9. We'll inform patient's primary care physician and discharge patient home. CBC, BMP 05/06/18 07:45 05/06/18 08:27 Dr. Barahona informed and agrees with follow up as outpatient. Discharge Disposition - Diagnosis Anemia Qualifiers: Anemia type: unspecified type Qualified Code(s): D64.9 - Anemia, unspecified - Discharge Dispostion Disposition: HOME Condition at time of disposition: Good Last Admission D/C Date: 12/29/17 Decision to Admit order: No - Referrals Referrals: Angela Barahona [Primary Care Provider] - - Patient Instructions Printed Discharge Instructions: DI for Iron Deficiency Anemia-Adult Additional Instructions: Your repeat Hgb is 8.9. Please follow up with your primary care physician. Call to schedule an appointment. - Post Discharge Activity
[2018-05-06 08:21] LABS: ALBUMIN 2.6 g/dl (3.4-5.0); ANION GAP 11 MMOL/L (8-16); BLOOD UREA NITROGEN 54 mg/dL (7-18); CALCIUM 7.6 mg/dL (8.5-10.1); CHLORIDE 113 mmol/L (98-107); CO2 17 mmol/L (21-32); CREATININE 5.1 mg/dL (0.55-1.3); GLUCOSE,RANDOM 143 mg/dL (74-106); POTASSIUM 5.1 mmol/L (3.5-5.1); SGOT/AST 19 U/L (15-37); SGPT/ALT 17 U/L (13-61); SODIUM 141 mmol/L (136-145)
[2018-05-06 08:23] LABS: ALK PHOS 61 U/L (45-117); BILIRUBIN,TOTAL 0.2 mg/dL (0.2-1.0)
== END 2018-05-06 08:37 | disposition home or self-care (01) ==
LOC: JER 05:53
DX: D64.9 Anemia, unspecified (principal); I10 Essential (primary) hypertension; E78.5 Hyperlipidemia, unspecified; E11.9 Type 2 diabetes mellitus without complications
CPT/HCPCS: 36415; 80053; 85025; 99282-25

== ENCOUNTER 2018-05-31 19:14 | Inpatient (IN) | payer OTHER ==
[2018-05-31] MEDS ORDERED: LABETALOL HCL 5 MG/1 ML (100MG/20 ML VIAL) IVPUSH ONE (20:28)
[2018-05-31] MEDS ORDERED: LABETALOL HCL 5 MG/1 ML (200MG/40ML VIAL) IVPB ONE (20:37)
--- NOTE | 2018-05-31 20:37 | PDOC ---
History of Present Illness - General Chief Complaint: Weakness Stated Complaint: WEAKNESS Time Seen by Provider: 05/31/18 20:13 - History of Present Illness Initial Comments: 05/31/18 20:33 The patient is an 82 year old female with a PMH of HTN, NIDDM, HLD and -- was BIBEMS for a 2 day h/o weakness. Patient state she felt more tired than usual when she woke up yesterday morning and over the last two days she felt increasingly weak including not wanting to eat, drink or walk around her apartment today prompting her to call 911. At baseline patient ambulates without difficulty and completes her ADL's. Patient lives independently in a prison community. ROS is positive for diarrhea and black stools ( patient takes Fe pills). Patient denies chest pain, shortness of breath, fevers/chills, numbness, tingling, dizziness. Allergy: Iodine, penicillin, vancomycin, azithromycin Surgical: none Social: 1 ppd > 60 years, denies alcohol, denies recreational drugs PMD: Dr. Angela Barahona As per EMR, patient was evaluated for similar complaints in 05/08 at which time basic labs were unremarkable and patient was discharged home with close primary care follow-up. 05/31/18 20:40 Past History - Past Medical History Allergies/Adverse Reactions: Allergies Allergy/AdvReac Type Severity Reaction Status Date / Time iodine Allergy Rash Verified 05/31/18 19:39 penicillin V Allergy Verified 05/31/18 19:39 shellfish derived Allergy Rash Verified 05/31/18 19:39 vancomycin Allergy Verified 05/31/18 19:39 azithromycin AdvReac Verified 05/31/18 19:39 Home Medications: Ambulatory Orders Ferrous Sulfate 325 mg PO BID 08/29/16 Nifedipine ER [Procardia XL -] 60 mg PO BID 08/29/16 Aspirin Coated [Ecotrin -] 81 mg PO DAILY tablet.ec 09/15/16 Glipizide 5 mg PO DAILY 06/26/17 Calcitriol [Calcitriol -] 0.25 mcg PO DAILY capsule 12/29/17 Cholestyramine/Aspartame [Questran Light Packet -] 4 gm PO BID packet 12/29/17 Ferrous Sulfate [Feosol] 325 mg PO BID ud 12/29/17 Metoprolol Tartrate [Lopressor -] 100 mg PO BID tablet 12/29/17 Alprazolam [Xanax] 0.25 mg PO Q8H PRN 05/05/18 Amitriptyline HCl [Elavil -] 25 mg PO HS 05/05/18 Atorvastatin Ca [Lipitor] 10 mg PO HS 05/05/18 Furosemide [Lasix] 20 mg PO ASDIR PRN 05/05/18 Isosorbide Mononitrate [Imdur -] 30 mg PO DAILY 05/05/18 Ondansetron HCl [Zofran] 8 mg PO TID PRN 05/05/18 Sodium Bicarbonate - 650 mg PO BID 05/05/18 Anemia: Yes Asthma: No Cancer: No Cardiac Disorders: Yes (PAD) CVA: No COPD: No CHF: No DVT: No Dementia: No Diabetes: Yes GI Disorders: No Disorders: No HTN: Yes Hypercholesterolemia: Yes Liver Disease: No Seizures: No Thyroid Disease: No - Surgical History Abdominal Surgery: No Appendectomy: No Cardiac Surgery: Yes (FEMORAL BYPASS) Cholecystectomy: Yes Lung Surgery: No Neurologic Surgery: No Orthopedic Surgery: Yes (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) - Family Disease History Family Disease History: CA: Father (lung), Brother, Sister - Immunization History Immunization Up to Date: Yes - Suicide/Smoking/Psychosocial Hx Smoking Status: Yes Smoking History: Never smoked Have you smoked in the past 12 months: No Number of Cigarettes Smoked Daily: 10 If you are a former smoker, when did you quit?: 08/10/2012 Cigars Per Day: 30 Information on smoking cessation initiated: No 'Breaking Loose' booklet given: 12/25/17 Hx Alcohol Use: No Drug/Substance Use Hx: No Substance Use Type: None Hx Substance Use Treatment: No Review of Systems - Review of Systems Constitutional: Yes: Weakness. No: Chills, Fever HEENTM: No: Blurred Vision, Double Vision Respiratory: No: Cough, Orthopnea, Shortness of Breath, Wheezing Cardiac (ROS): No: Chest Pain, Lightheadedness, Palpitations, Syncope ABD/GI: Yes: Diarrhea. No: Constipated, Nausea, Vomiting : No: Burning, Dysuria *Physical Exam - Vital Signs Last Vital Signs Temp Pulse Resp BP Pulse Ox 97.7 F 83 20 221/71 H 99 05/31/18 19:39 05/31/18 19:39 05/31/18 19:39 05/31/18 19:39 05/31/18 19:39 - Physical Exam General Appearance: Yes: Nourished, Appropriately Dressed HEENT: positive: Normal Voice, Hearing Grossly Normal Neck: positive: Trachea midline, Supple Respiratory/Chest: positive: Lungs Clear, Normal Breath Sounds. negative: Labored Respiration, Rapid RR Cardiovascular: positive: S1, S2. negative: Edema, JVD Vascular Pulses: Dorsalis-Pedis (R): 2+, Doralis-Pedis (L): 2+ Gastrointestinal/Abdominal: positive: Normal Bowel Sounds, Soft. negative: Rebound, Tenderness, Hernia, Mass Musculoskeletal: negative: CVA Tenderness (R), CVA Tenderness (L) Extremity: positive: Normal Capillary Refill, Normal Inspection Integumentary: positive: Normal Color, Dry, Warm ED Treatment Course - LABORATORY CBC & Chemistry Diagram: 06/01/18 11:05 06/01/18 11:05 Medical Decision Making - Medical Decision Making 05/31/18 20:37 82 year old female with weakness. Hypertensive (220's/170's) @ presentation. Other VS unremarkable. Frontal diagnosis: Electrolyte abnormality, Infectious including UTI less likely ACS. Will obtain basic labs, UA/culture, Troponin x1 , EKG. Labetalol for HTN. Reassess. 05/31/18 21:59 Reassesed patient @ bedside s/p Labetalol BP 206/75 Will give dose of home medications - as patient did not take her medications this morning Reassess 05/31/18 22:27 Troponin 0.14, previous Trop negative in 01/05 - ? ACS vs. LV strain ASA ECG pending 05/31/18 22:53 Repeat BP 184/79 05/31/18 23:29 ECG shows NSR, HR 71, TWI in Lead II - not c/w previous ECG Hyperkalemia 5.6 Cr 4.5 - stable (previous Cr 5.1 in 05/08) Will page Dr. Shore, patient's PMD, for admission. Repeat Troponin ordered for 0100 *DC/Admit/Observation/Transfer Diagnosis at time of Disposition: Elevated troponin - Referrals - Patient Instructions - Post Discharge Activity
[2018-05-31 20:54] LABS: BASO % 1.2 % (0-2.0); EOS % 3.3 % (0-4.5); HEMATOCRIT 28.7 % (32.4-45.2); HEMOGLOBIN 9.6 GM/dL (10.7-15.3); LYMPH % 16.8 % (8-40); MCH 31.3 pg (25.7-33.7); MCHC 33.4 g/dl (32.0-36.0); MEAN CELL VOLUME 93.7 fl (80-96); MEAN PLT VOLUME 8.1 fl (7.5-11.1); MONO % 7.1 % (3.8-10.2); NEUT % 71.6 % (42.8-82.8); PLATELET COUNT 369 K/MM3 (134-434); RBC 3.06 M/mm3 (3.60-5.2); RDW 14.1 % (11.6-15.6); WHITE BLOOD COUNT 10.8 K/mm3 (4.0-10.0)
[2018-05-31] MEDS ORDERED: ONDANSETRON 4 MG/2 ML VIAL IVPUSH ONE (21:12)
[2018-05-31] MEDS ORDERED: ONDANSETRON 4 MG/2 ML VIAL ONE (21:12)
[2018-05-31 21:34] LABS: URINE APPEARANCE CLEAR; URINE BILIRUBIN NEGATIVE (<2.0 mg/dL); URINE COLOR STRAW; URINE GLUCOSE (UA) 1+ (NEGATIVE); URINE KETONE NEGATIVE (NEGATIVE); URINE LEUK ESTERASE NEGATIVE (NEGATIVE); URINE NITRITE NEGATIVE (NEGATIVE); URINE PROTEIN 3+ (NEGATIVE); URINE UROBILINOGEN NEGATIVE mg/dL (0.2-1.0)
[2018-05-31 21:37] LABS: EPI CELLS RARE /HPF (FEW); URINE MUCUS RARE
[2018-05-31 21:38] LABS: ALBUMIN 2.9 g/dl (3.4-5.0); ALK PHOS 76 U/L (45-117); ANION GAP 6 MMOL/L (8-16); BILIRUBIN,TOTAL 0.2 mg/dL (0.2-1); BLOOD UREA NITROGEN 55 mg/dL (7-18); CHLORIDE 116 mmol/L (98-107); CO2 16 mmol/L (21-32); CREATININE 4.5 mg/dL (0.55-1.3); GLUCOSE,RANDOM 95 mg/dL (74-106); MAGNESIUM 1.8 mg/dL (1.8-2.4); POTASSIUM 5.6 mmol/L (3.5-5.1); SGOT/AST 19 U/L (15-37); SGPT/ALT 24 U/L (13-61); SODIUM 139 mmol/L (136-145); TOT PROT 6.6 g/dl (6.4-8.2)
[2018-05-31] MEDS: NIFEdipine E.R 60 MG TABLET (UD) PO SCH (21:47)
[2018-05-31] MEDS: ISOSORBIDE MONONITRATE 30 MG TAB.SR.24H (FP) PO SCH (21:47)
[2018-05-31] MEDS ORDERED: FUROSEMIDE 20 MG TABLET (FP) PO ONE (23:31)
--- NOTE | 2018-05-31 23:33 | PDOC ---
Attending Attestation - Resident Resident Name: Di Ennis - ED Attending Attestation I have performed the following: I have examined & evaluated the patient, The case was reviewed & discussed with the resident, I agree w/resident's findings & plan, Exceptions are as noted - Medical Decision Making 05/31/18 23:32 82yoF w/ severe weakness and nausea today. Found upon ED arrival to have significant elevated in BP in setting of not taking her medications today. no cp /sob, no palps, no vomiting, no syncope. EKG w/ + new inferolaterally] labs w/ + Tn 0.14 and hyperkalemia w/o EKG changes. -BP control - admit.
[2018-05-31] MEDS ORDERED: ASPIRIN 81 MG CHEWABLE TABLETS PO ONE (23:34)
[2018-06-01] MEDS ORDERED: AMITRIPTYLINE HCL 50 MG TABLET PO ONE (00:02)
[2018-06-01] MEDS ORDERED: FUROSEMIDE 40 MG TABLET (FP) ONE (00:53)
[2018-06-01] MEDS ORDERED: AMITRIPTYLINE HCL 25 MG TABLET (FP) ONE (00:54)
[2018-06-01] MEDS ORDERED: ASPIRIN COATED 81 MG TABLET.EC ONE (00:54)
--- NOTE | 2018-06-01 09:42 | EKG ---
Test Reason : Blood Pressure : / mmHG Vent. Rate : 068 BPM Atrial Rate : 068 BPM P-R Int : 134 ms QRS Dur : 078 ms QT Int : 418 ms P-R-T Axes : -15 029 146 degrees QTc Int : 444 ms POOR DATA QUALITY, INTERPRETATION MAY BE ADVERSELY AFFECTED NORMAL SINUS RHYTHM T WAVE ABNORMALITY, CONSIDER LATERAL ISCHEMIA ABNORMAL ECG Confirmed by DELMY JACKSON MD ([id number]) on 06/01/2018 9:42:09 AM Referred By: Confirmed By:DELMY JACKSON MD
--- NOTE | 2018-06-01 09:56 | HP ---
Admitting History and Physical - Primary Care Physician PCP: Angela Barahona - Admission Chief Complaint: fatigue SOB History of Present Illness: The patient is an 82 year old female with a PMH of HTN, NIDDM, HLD and -- was BIBEMS for a 2 day h/o weakness. Patient state she felt more tired than usual when she woke up yesterday morning and over the last two days she felt increasingly weak including not wanting to eat, drink or walk around her apartment today prompting her to call 911. At baseline patient ambulates without difficulty and completes her ADL's. Patient lives independently in a longterm community. ROS is positive for diarrhea and black stools ( patient takes Fe pills). Patient denies chest pain, shortness of breath, fevers/chills, numbness, tingling, dizziness. History Source: Patient Limitations to Obtaining History: No Limitations - Past Medical History Cardiovascular: Yes: HTN, Hyperlipdemia, Murmur, Other (PAD) Pulmonary: Yes: Asthma, COPD Hepatobiliary: Yes: Cholelithiasis Renal/: Yes: Renal Inusuff Heme/Onc: Yes: Anemia Infectious Disease: Yes: Other (history of osteomyelitis in the past) Endocrine: Yes: Diabetes Mellitus - Past Surgical History Past Surgical History: Yes: Amputation (1-st R toe amputation), Bypass (Right fem pop bypass) - Smoking History Smoking history: Never smoked Have you smoked in the past 12 months: No Aproximately how many cigarettes per day: 10 If you are a former smoker, when did you quit?: 08/10/2012 - Alcohol/Substance Use Hx Alcohol Use: No History of Substance Use: reports: None - Social History Usual Living Arrangement: Yes: Alone ADL: Independent 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, 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, 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 Travel: No Home Medications - Allergies Allergies/Adverse Reactions: Allergies Allergy/AdvReac Type Severity Reaction Status Date / Time iodine Allergy Rash Verified 05/31/18 19:39 penicillin V Allergy Verified 05/31/18 19:39 shellfish derived Allergy Rash Verified 05/31/18 19:39 vancomycin Allergy Verified 05/31/18 19:39 azithromycin AdvReac Verified 05/31/18 19:39 - Home Medications Home Medications: Ambulatory Orders RX: Ferrous Sulfate 325 mg PO BID 08/29/16 RX: Nifedipine ER [Procardia XL -] 60 mg PO BID 08/29/16 RX: Aspirin Coated [Ecotrin -] 81 mg PO DAILY tablet.ec 09/15/16 RX: Glipizide 5 mg PO DAILY 06/26/17 RX: Calcitriol [Calcitriol -] 0.25 mcg PO DAILY capsule 12/29/17 RX: Cholestyramine/Aspartame [Questran Light Packet -] 4 gm PO BID packet 12/29 RX: Ferrous Sulfate [Feosol] 325 mg PO BID ud 12/29/17 RX: Metoprolol Tartrate [Lopressor -] 100 mg PO BID tablet 12/29/17 Alprazolam [Xanax] 0.25 mg PO Q8H PRN 05/05/18 Amitriptyline HCl [Elavil -] 25 mg PO HS 05/05/18 Atorvastatin Ca [Lipitor] 10 mg PO HS 05/05/18 Furosemide [Lasix] 20 mg PO ASDIR PRN 05/05/18 Ondansetron HCl [Zofran] 8 mg PO TID PRN 05/05/18 RX: Isosorbide Mononitrate [Imdur -] 30 mg PO DAILY 05/05/18 RX: Sodium Bicarbonate - 650 mg PO BID 05/05/18 Family Disease History - Family Disease History Family Disease History: CA: Father (lung ca), Mother (, lung ca), Sister (lung ca) Review of Systems - Review of Systems Constitutional: denies: Chills, Fever Eyes: denies: Blind Spots, Double Vision HENT: denies: Epistaxis Neck: denies: Stiffness, Tenderness Cardiovascular: reports: Shortness of Breath. denies: Chest Pain, Edema, Palpitations Respiratory: reports: Exercise Intolerance, SOB, SOB on Exertion. denies: Cough , Hemoptysis Gastrointestinal: reports: Diarrhea. denies: Abdominal Pain, Constipation, Vomiting Genitourinary: reports: Pain. denies: Flank Pain Musculoskeletal: denies: Back Pain, Joint Swelling Neurological: reports: Weakness (general). denies: Change in LOC, Change in Speech, Confusion, Dizziness, Syncope Hematology/Lymphatic: denies: Easily Bruised, Excessive Bleeding Physical Examination Vital Signs: Vital Signs Temperature 98.3 F 06/01/18 06:30 Pulse Rate 65 06/01/18 06:30 Respiratory Rate 18 06/01/18 06:30 Blood Pressure 149/65 06/01/18 06:30 O2 Sat by Pulse Oximetry (%) 96 06/01/18 06:30 Constitutional: Yes: No Distress, Calm Eyes: Yes: Conjunctiva Clear HENT: Yes: Atraumatic Neck: Yes: Supple Cardiovascular: Yes: Regular Rate and Rhythm Respiratory: Yes: CTA Bilaterally Gastrointestinal: Yes: Soft, Distention Renal/: No: CVA Tenderness - Left, CVA Tenderness - Right Musculoskeletal: No: Joint Stiffness, Joint Swelling Extremities: No: Cold, Cool, Cyanosis Edema: No Integumentary: No: Rash, Venous Stasis Changes Neurological: Yes: WNL, Alert, Oriented. No: Confusion ...Motor Strength: WNL Psychiatric: Yes: WNL, Alert, Oriented. No: Agitated, Suicidal Ideation Labs: CBC, BMP 05/31/18 20:30 05/31/18 20:30 Imaging - Results Chest X-ray: Report Reviewed Other: Report Reviewed Assessment/Plan The patient is an 82 year old female with a PMH of HTN, NIDDM, HLD and -- was BIBEMS for a 2 day h/o weakness. Found to have positive troponins and ARF/CRF hyperK admit to telemetry cardiology and renal eval f/u CE ASA po, further w/u per cardio and renal might need dyalsis d/w pt and staff
[2018-06-01] MEDS: NIFEdipine E.R 60 MG TABLET (UD) PO SCH ×2 (10:15→21:49)
[2018-06-01] MEDS: ISOSORBIDE MONONITRATE 30 MG TAB.SR.24H (FP) PO SCH (10:15)
[2018-06-01] MEDS ORDERED: ONDANSETRON 8 MG TABLET (FP) PO PRN (10:32)
[2018-06-01] MEDS ORDERED: FUROSEMIDE 20 MG TABLET (FP) PO PRN (10:32)
[2018-06-01] MEDS ORDERED: ACETAMINOPHEN 325 MG TABLET (FP) PO PRN (10:39)
[2018-06-01 11:18] LABS: BASO % 1.2 % (0-2.0); EOS % 3.8 % (0-4.5); HEMATOCRIT 26.9 % (32.4-45.2); HEMOGLOBIN 8.9 GM/dL (10.7-15.3); LYMPH % 16.2 % (8-40); MCH 31.1 pg (25.7-33.7); MCHC 32.9 g/dl (32.0-36.0); MEAN CELL VOLUME 94.4 fl (80-96); MEAN PLT VOLUME 7.6 fl (7.5-11.1); MONO % 7.3 % (3.8-10.2); NEUT % 71.5 % (42.8-82.8); PLATELET COUNT 317 K/MM3 (134-434); RBC 2.85 M/mm3 (3.60-5.2); RDW 14.3 % (11.6-15.6); WHITE BLOOD COUNT 8.4 K/mm3 (4.0-10.0)
--- NOTE | 2018-06-01 11:33 | CON.CARD ---
Consult Consult Specialty:: Cardiology Referred by:: Angela Barahona MD Reason for Consultation:: Demand ischemia, hypertensive urgency - History of Present Illness Chief Complaint: Weakness, fatigue History of Present Illness: Patient is a 82 year old female with history of PAD S/P right fem pop bypass and toe amputations, CKD, HTN/HCVD, type 2 DM, CAD with abnl MPI, h/o hypercapneic respiratory failure due to anesthesia post ERCP, post cholecystectomy admitted for weakness, fatigue, anorexia, nausea and elevated BP. She is asymptomatic from CV standpoint and denies chest pain, SOB, near or true syncope, palpitations, orthopnea, PND or LE edema. Previously hesitant for [employer] during discussions with nephrology. - History Source History Provided By: Patient Limitations to Obtaining History: No Limitations - Past Medical History Cardio/Vascular: Yes: HTN, Hyperlipdemia, Murmur, Other (PAD) Pulmonary: Yes: Asthma, COPD Hepatobiliary: Yes: Cholelithiasis Renal/: Yes: Renal Inusuff Infectious Disease: Yes: Other (history of osteomyelitis in the past) Endocrine: Yes: Diabetes Mellitus - Past Surgical History Past Surgical History: Yes: Amputation (1-st R toe amputation), Bypass (Right fem pop bypass) - Alcohol/Substance Use Hx Alcohol Use: No History of Substance Use: reports: None - Smoking History Smoking history: Never smoked Have you smoked in the past 12 months: No Aproximately how many cigarettes per day: 10 If you are a former smoker, when did you quit?: 08/10/2012 - Social History Usual Living Arrangement: Alone ADL: Independent 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, 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, 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 Travel: No Home Medications - Allergies Allergies/Adverse Reactions: Allergies Allergy/AdvReac Type Severity Reaction Status Date / Time iodine Allergy Rash Verified 05/31/18 19:39 penicillin V Allergy Verified 05/31/18 19:39 shellfish derived Allergy Rash Verified 05/31/18 19:39 vancomycin Allergy Verified 05/31/18 19:39 azithromycin AdvReac Verified 05/31/18 19:39 - Home Medications Home Medications: Ambulatory Orders Ferrous Sulfate 325 mg PO BID 08/29/16 Nifedipine ER [Procardia XL -] 60 mg PO BID 08/29/16 Aspirin Coated [Ecotrin -] 81 mg PO DAILY tablet.ec 09/15/16 Glipizide 5 mg PO DAILY 06/26/17 Calcitriol [Calcitriol -] 0.25 mcg PO DAILY capsule 12/29/17 Cholestyramine/Aspartame [Questran Light Packet -] 4 gm PO BID packet 12/29/17 Ferrous Sulfate [Feosol] 325 mg PO BID ud 12/29/17 Metoprolol Tartrate [Lopressor -] 100 mg PO BID tablet 12/29/17 Alprazolam [Xanax] 0.25 mg PO Q8H PRN 05/05/18 Amitriptyline HCl [Elavil -] 25 mg PO HS 05/05/18 Atorvastatin Ca [Lipitor] 10 mg PO HS 05/05/18 Furosemide [Lasix] 20 mg PO ASDIR PRN 05/05/18 Isosorbide Mononitrate [Imdur -] 30 mg PO DAILY 05/05/18 Ondansetron HCl [Zofran] 8 mg PO TID PRN 05/05/18 Sodium Bicarbonate - 650 mg PO BID 05/05/18 Family Disease History - Family Disease History Family Disease History: CA: Father (lung ca), Mother (, lung ca), Sister (lung ca) Review of Systems - Review of Systems Constitutional: reports: Loss of Appetite, Weakness Eyes: reports: No Symptoms HENT: reports: No Symptoms Neck: reports: No Symptoms Cardiovascular: reports: No Symptoms Respiratory: reports: No Symptoms Gastrointestinal: reports: Nausea Genitourinary: reports: No Symptoms Musculoskeletal: reports: No Symptoms Integumentary: reports: No Symptoms Neurological: reports: Weakness Endocrine: reports: No Symptoms Hematology/Lymphatic: reports: No Symptoms Vital Signs: Vital Signs Temperature 98 F 06/01/18 09:57 Pulse Rate 67 06/01/18 09:57 Respiratory Rate 20 06/01/18 09:57 Blood Pressure 155/70 06/01/18 09:57 O2 Sat by Pulse Oximetry (%) 99 06/01/18 09:57 Constitutional: Yes: No Distress, Calm, Thin Neck: Yes: Supple Respiratory: Yes: Regular, CTA Bilaterally Gastrointestinal: Yes: Normal Bowel Sounds, Soft Cardiovascular: Yes: Regular Rate and Rhythm JVD: No Carotid Bruit: No Heart Sounds: Yes: S1, S2 Murmur: Yes: Systolic Murmur, Grade 1 Edema: No - Other Data Labs, Other Data: CBC, BMP 06/01/18 11:05 Troponin, BNP 05/31/18 06/01/18 20:30 01:20 Troponin I 0.14 H 0.11 H Troponin, BNP 05/31/18 06/01/18 20:30 01:20 Troponin I 0.14 H 0.11 H NSR @ 68 lateral TWI Echo: Pending Ejection Fraction %: LVEF > or = 40 % Imaging - Results Chest X-ray: Report Reviewed (NAD) Problem List - Problems (1) Subendocardial ischemia Code(s): I24.8 - OTHER FORMS OF ACUTE ISCHEMIC HEART DISEASE (2) Hypertensive heart disease Code(s): I11.9 - HYPERTENSIVE HEART DISEASE WITHOUT HEART FAILURE Qualifiers: Heart failure presence: without heart failure Qualified Code(s): I11.9 - Hypertensive heart disease without heart failure (3) [id number]-[id number] kidney injury Code(s): N17.9 - ACUTE KIDNEY FAILURE, UNSPECIFIED; N18.9 - CHRONIC KIDNEY DISEASE, UNSPECIFIED Qualifiers: Chronic kidney disease stage: stage 5, not on chronic dialysis (4) Anemia Code(s): D64.9 - ANEMIA, UNSPECIFIED Qualifiers: Anemia type: due to chronic kidney disease Chronic kidney disease stage: stage 5, not on chronic dialysis Qualified Code(s): N18.5 - Chronic kidney disease, stage 5; D63.1 - Anemia in chronic kidney disease (5) CAD (coronary artery disease) Code(s): I25.10 - ATHSCL HEART DISEASE OF [place] CORONARY ARTERY W/O ANG PCTRS Qualifiers: Coronary Disease-Associated Artery/Lesion type: [place] artery [place] vs. transplanted heart: [place] heart Associated angina: without angina Qualified Code(s): I25.10 - Atherosclerotic heart disease of [place] coronary artery without angina pectoris (6) Hyperlipidemia associated with type 2 diabetes mellitus Code(s): E11.69 - TYPE 2 DIABETES MELLITUS WITH OTHER SPECIFIED COMPLICATION; E78.5 - HYPERLIPIDEMIA, UNSPECIFIED (7) PAD (peripheral artery disease) Code(s): I73.9 - PERIPHERAL VASCULAR DISEASE, UNSPECIFIED (8) S/P femoropopliteal bypass surgery Code(s): Z95.828 - PRESENCE OF OTHER VASCULAR IMPLANTS AND GRAFTS (9) Uncontrolled hypertension Code(s): I10 - ESSENTIAL (PRIMARY) HYPERTENSION Assessment/Plan 04/01/16 Nuc stress: Mild apical ischemia, inferoseptal ischemia LVEF 70% 1. CKD - pre dialysis suspect early uremia 2. CAD subendocardial [place] in context of 3. HTN urgency 4. DM 5. Hypercholesterolemia 6. COPD h/o acute hypercapneic respiratory failure post ERCP related to anesthesia 7. Anemia of CKD PLAN: 1. Renal input for [employer] consideration 2. Trops are downtrending 3. Echo to assess ventricular and valve fxn 4. Continue Lopressor 100 bid, Procardia XL 60 bid, ASA 81 qd, Lipitor 10 qd, Imdur 30 qd, holding ramipril and Lasix 5. Thank you for consultative opportunity
[2018-06-01 11:42] LABS: ALBUMIN 2.7 g/dl (3.4-5.0); ALK PHOS 68 U/L (45-117); ANION GAP 10 MMOL/L (8-16); BILIRUBIN,TOTAL 0.2 mg/dL (0.2-1); BLOOD UREA NITROGEN 58 mg/dL (7-18); CALCIUM 7.6 mg/dL (8.5-10.1); CHLORIDE 115 mmol/L (98-107); CO2 14 mmol/L (21-32); GLUCOSE,RANDOM 177 mg/dL (74-106); POTASSIUM 5.5 mmol/L (3.5-5.1); SGOT/AST 18 U/L (15-37); SGPT/ALT 21 U/L (13-61); SODIUM 139 mmol/L (136-145); TOT PROT 6.1 g/dl (6.4-8.2)
[2018-06-01] MEDS ORDERED: INSULIN (NOVOLOG) ASPART 100 UNITS/ML 10ML VIAL ONE (12:24)
[2018-06-01] MEDS: INSULIN SLIDING SCALE (NOVOLOG) 1 VIAL SQ SCH ×3 (12:26→22:02)
--- NOTE | 2018-06-01 13:34 | CONSULT ---
Consult - text type - Consultation Consultation Note: Renal consult for CKD stage 5 This is a 82 year old woman with hx of CKD stage 5 likely due to diabetic nephropathy, Hypertension, CAD, PVD who presented with weakness, fatigue and anorexia and found to have hypertensive urgency and eGFR< 10. Pt reports she did not take her BP meds for 1 day. Denies any CP, SOB, Abd pain. has some diarrhea at home. No flank pain. Making urine w/o difficulty. Pt had refused dialysis and dialysis planning in the past. PMhx: as above Allergies: As listed in EMR Family Hx: NC Social Hx: No T/A/D ROS: as per HPI, all other pertinent ros negative Home Medications Medication Instructions Recorded Ferrous Sulfate 325 mg PO BID 08/29/16 Nifedipine ER [Procardia XL -] 60 mg PO BID 08/29/16 Aspirin Coated [Ecotrin -] 81 mg PO DAILY tablet.ec 09/15/16 Glipizide 5 mg PO DAILY 06/26/17 Calcitriol [Calcitriol -] 0.25 mcg PO DAILY capsule 12/29/17 Cholestyramine/Aspartame [Questran 4 gm PO BID packet 12/29/17 Light Packet -] Ferrous Sulfate [Feosol] 325 mg PO BID ud 12/29/17 Metoprolol Tartrate [Lopressor -] 100 mg PO BID tablet 12/29/17 Alprazolam [Xanax] 0.25 mg PO Q8H PRN 05/05/18 Amitriptyline HCl [Elavil -] 25 mg PO HS 05/05/18 Atorvastatin Ca [Lipitor] 10 mg PO HS 05/05/18 Furosemide [Lasix] 20 mg PO ASDIR PRN 05/05/18 Isosorbide Mononitrate [Imdur -] 30 mg PO DAILY 05/05/18 Ondansetron HCl [Zofran] 8 mg PO TID PRN 05/05/18 Sodium Bicarbonate - 650 mg PO BID 05/05/18 Vital Signs Temperature 98 F 06/01/18 09:57 Pulse Rate 67 06/01/18 09:57 Respiratory Rate 20 06/01/18 09:57 Blood Pressure 155/70 06/01/18 09:57 O2 Sat by Pulse Oximetry (%) 99 06/01/18 09:57 NAD awake and alert RRR CTA soft NT/ND no LE edema, clubbing or cyanosis CBC, BMP 06/01/18 11:05 06/01/18 11:05 Current Medications Acetaminophen (Tylenol -) 650 mg PO Q6H PRN PRN Reason: PAIN Alprazolam (Xanax -) 0.25 mg PO Q8H PRN PRN Reason: ANXIETY Amitriptyline HCl (Elavil -) 25 mg PO HS REPLACED BY [facility] Aspirin (Ecotrin -) 81 mg PO DAILY REPLACED BY [facility] Atorvastatin Calcium (Lipitor -) 10 mg PO HS REPLACED BY [facility] Calcitriol (Rocaltrol -) 0.25 mcg PO DAILY REPLACED BY [facility] Cholestyramine Resin (Questran Light Packet -) 4 gm PO BID REPLACED BY [facility] Ferrous Sulfate (Feosol -) 325 mg PO BID REPLACED BY [facility] Furosemide (Lasix -) 20 mg PO ASDIR PRN PRN Reason: asdir Glipizide (Glucotrol -) 5 mg PO AM REPLACED BY [facility] Heparin Sodium (Porcine) (Heparin -) 5,000 unit SQ BID REPLACED BY [facility] Insulin Aspart (Novolog Vial Sliding Scale -) 1 vial SQ ACHS REPLACED BY [facility]; Protocol Last Admin: 06/01/18 12:26 Dose: Not Given Isosorbide Mononitrate (Imdur -) 30 mg PO DAILY REPLACED BY [facility] Metoprolol Tartrate (Lopressor -) 100 mg PO BID REPLACED BY [facility] Nifedipine (Procardia Xl -) 60 mg PO BID REPLACED BY [facility] Ondansetron HCl (Zofran -) 8 mg PO TID PRN PRN Reason: NAUSEA Sodium Bicarbonate (Sodium Bicarbonate -) 650 mg PO BID REPLACED BY [facility] 82 year old woman with hx of CKD stage 5 likely due to diabetic nephropathy, Hypertension, CAD, PVD who presented with weakness, fatigue and anorexia and found to have hypertensive urgency and eGFR< 10. #CKD stage 5 with mild uremic symptoms #Hypertension (uncontrolled due to medication non-compliance) #Anemia related to CKD vs. blood loss #Metabolic acidosis BP is improved with oral meds, continue Metoprolol, Nifedpine, Imdur Start gentle IVF hydration with 1/2 NS to see if volume repletion will improve some of her symptoms pt is hesitant to start dialysis because of out of pocket expense because her insurance will not cover full cost of dialysis intially will discuss with social economist at dialysis unit to see if this is accurate no emergent indication for OPTOMETRY DOCTOR at this time check iron profile, will likely need JACOB Increase sodium bicarb to 1300mg BID, goal bicarb > 22 Dose all meds for CrCl < 10 avoid nsaids, fleets, IV contrast Thank you Will follow Quentin Goyal DO
[2018-06-01] MEDS: SODIUM CHLORIDE 0.45% 1,000 ML IV SCH (14:17)
[2018-06-01] MEDS: SODIUM BICARBONATE 650 MG TABLET PO SCH ×2 (14:45→21:47)
--- NOTE | 2018-06-01 15:25 | ECHO ---
Name: CONG DOMINGUEZ Exam:Adult Echocardiogram Study Date: 06/01/2018 01:11 PM Age: 82 yrs Reason For Study: HTN Height: 63 in Weight: 125 lb BSA: 1.6 m2 MMode/2D Measurements & Calculations IVSd: 1.0 cm Ao root diam: 2.4 cm LVIDd: 4.5 cm LA dimension: 3.5 cm LVIDs: 3.1 cm LVPWd: 0.87 cm EDV(Teich): 91.1 ml ESV(Teich): 38.8 ml Doppler Measurements & Calculations MV E max yaw: 101.2 cm/sec Ao V2 max: 138.8 cm/sec MV A max yaw: 106.1 cm/sec Ao max P.7 mmHg MV E/A: 0.95 AI P1/2t: 546.2 msec MV dec time: 0.25 sec AI max yaw: 331.1 cm/sec LV V1 max P.2 mmHg AI max P.0 mmHg LV V1 max: 74.4 cm/sec AI dec slope: 177.6 cm/sec2 TR max yaw: 208.9 cm/sec Med Peak E' Yaw: 4.5 cm/sec TR max P.7 mmHg Med E/e': 22.6 Lat Peak E' Yaw: 4.3 cm/sec Lat E/e': 23.6 Left Ventricle There is mild concentric left ventricular hypertrophy. Left ventricular systolic function is normal. Right Ventricle The right ventricle is normal in size and function. Atria The left atrium is mildly dilated. Mitral Valve There is mild mitral annular calcification. There is no mitral valve stenosis. There is mild mitral regurgitation. Tricuspid Valve The tricuspid valve is normal in structure and function. There is mild tricuspid regurgitation. Aortic Valve There is mild aortic sclerosis.;. No hemodynamically significant valvular aortic stenosis. Mild aorti c regurgitation. Pulmonic Valve The pulmonic valve is not well seen, but is grossly normal. There is no pulmonic valvular stenosis. Great Vessels The aortic root is normal size. Pericardium/Pleura There is no pericardial effusion. Interpretation Summary Left ventricular systolic function is normal. The right ventricle is normal in size and function. There is mild concentric left ventricular hypertrophy. There is mild mitral annular calcification. There is mild mitral regurgitation. There is mild tricuspid regurgitation. There is mild aortic sclerosis.; Mild aortic regurgitation. There is no pericardial effusion. MD Ronald Mackey 06/01/2018 03:24 PM
[2018-06-01] MEDS ORDERED: ALPRAZolam 0.25 MG TABLET ONE (16:25)
[2018-06-01] MEDS: ALPRAZolam 0.25 MG TABLET PO PRN (16:39)
[2018-06-01] MEDS ORDERED: ONDANSETRON 4 MG TABLET PO PRN (19:58)
[2018-06-01] MEDS ORDERED: PT OWN MED DRAWER 7, Y5N ONE (21:33)
[2018-06-01] MEDS: AMITRIPTYLINE HCL 25 MG TABLET (FP) PO SCH (21:45)
[2018-06-01] MEDS: METOPROLOL TARTRATE 50 MG TABLET (FP) PO SCH (21:47)
[2018-06-01] MEDS: FERROUS SO4 325 MG TABLET (FP) PO SCH (21:48)
[2018-06-01] MEDS: ATORVASTATIN CA 10 MG TABLET (FP) PO SCH (21:48)
[2018-06-01] MEDS: HEPARIN NA (PORCINE) 5,000 UNITS/ML 1ML VIAL SQ SCH (21:50)
[2018-06-01] MEDS ORDERED: SODIUM BICARBONATE 650 MG TABLET PO SCH (22:00)
[2018-06-01] MEDS ORDERED: PATIENT'S OWN MEDICATION (NON-FORMULARY) (Ferrous Sulfate [Ferrous Sulfate] 325 MG) PO SCH (22:00)
[2018-06-01] MEDS: CHOLESTYRAMINE/ASPARTAME 4 GM PACKET PO SCH (22:02)
[2018-06-02 06:32] LABS: EOS % 4.7 % (0-4.5); HEMATOCRIT 24.1 % (32.4-45.2); HEMOGLOBIN 8.1 GM/dL (10.7-15.3); LYMPH % 24.9 % (8-40); MCH 31.3 pg (25.7-33.7); MCHC 33.7 g/dl (32.0-36.0); MEAN CELL VOLUME 93.1 fl (80-96); MONO % 8.9 % (3.8-10.2); NEUT % 60.5 % (42.8-82.8); PLATELET COUNT 283 K/MM3 (134-434); RBC 2.59 M/mm3 (3.60-5.2); WHITE BLOOD COUNT 7.7 K/mm3 (4.0-10.0)
[2018-06-02] MEDS: INSULIN SLIDING SCALE (NOVOLOG) 1 VIAL SQ SCH ×4 (06:54→23:45)
[2018-06-02 07:00] LABS: ALBUMIN 2.6 g/dl (3.4-5.0); ALK PHOS 60 U/L (45-117); ANION GAP 9 MMOL/L (8-16); BILIRUBIN,TOTAL 0.1 mg/dL (0.2-1); BLOOD UREA NITROGEN 62 mg/dL (7-18); CALCIUM 7.4 mg/dL (8.5-10.1); CHLORIDE 116 mmol/L (98-107); CO2 17 mmol/L (21-32); CREATININE 5.3 mg/dL (0.55-1.3); GLUCOSE,RANDOM 106 mg/dL (74-106); MAGNESIUM 1.8 mg/dL (1.8-2.4); PHOSPHOROUS 5.6 mg/dL (2.5-4.9); POTASSIUM 5.3 mmol/L (3.5-5.1); SGOT/AST 13 U/L (15-37); SGPT/ALT 20 U/L (13-61); SODIUM 143 mmol/L (136-145); TOT PROT 5.6 g/dl (6.4-8.2)
[2018-06-02] MEDS: NIFEdipine E.R 60 MG TABLET (UD) PO SCH ×2 (09:20→21:22)
[2018-06-02] MEDS: CALCITRIOL 0.25 MCG CAPSULE (FP) PO SCH (09:20)
[2018-06-02] MEDS: ISOSORBIDE MONONITRATE 30 MG TAB.SR.24H (FP) PO SCH (09:21)
[2018-06-02] MEDS: ASPIRIN COATED 81 MG TABLET.EC PO SCH (09:21)
[2018-06-02] MEDS: FERROUS SO4 325 MG TABLET (FP) PO SCH ×2 (09:21→21:22)
[2018-06-02] MEDS: METOPROLOL TARTRATE 50 MG TABLET (FP) PO SCH ×2 (09:21→21:22)
[2018-06-02] MEDS: SODIUM BICARBONATE 650 MG TABLET PO SCH ×2 (09:21→21:23)
[2018-06-02] MEDS: HEPARIN NA (PORCINE) 5,000 UNITS/ML 1ML VIAL SQ SCH ×2 (09:22→21:22)
[2018-06-02] MEDS: glipiZIDE 5 MG TABLET (FP) PO SCH (09:22)
[2018-06-02] MEDS: CHOLESTYRAMINE/ASPARTAME 4 GM PACKET PO SCH ×2 (09:22→21:22)
--- NOTE | 2018-06-02 10:54 | PN ---
Progress Note, Physician Chief Complaint: consults reviewed pt in telemetry no CP/SOB but feels weak - Current Medication List Current Medications: Active Medications Acetaminophen (Tylenol -) 650 mg PO Q6H PRN PRN Reason: PAIN Alprazolam (Xanax -) 0.25 mg PO Q8H PRN PRN Reason: ANXIETY Last Admin: 06/01/18 16:39 Dose: 0.25 mg Amitriptyline HCl (Elavil -) 50 mg PO HS [facility] Last Admin: 06/01/18 21:45 Dose: 50 mg Aspirin (Ecotrin -) 81 mg PO DAILY [facility] Last Admin: 06/02/18 09:21 Dose: 81 mg Atorvastatin Calcium (Lipitor -) 10 mg PO HS [facility] Last Admin: 06/01/18 21:48 Dose: 10 mg Calcitriol (Rocaltrol -) 0.25 mcg PO DAILY [facility] Last Admin: 06/02/18 09:20 Dose: 0.25 mcg Cholestyramine Resin (Questran Light Packet -) 4 gm PO BID [facility] Last Admin: 06/02/18 09:22 Dose: 4 gm Ferrous Sulfate (Feosol -) 325 mg PO BID [facility] Last Admin: 06/02/18 09:21 Dose: 325 mg Glipizide (Glucotrol -) 5 mg PO AM [facility] Last Admin: 06/02/18 09:22 Dose: 5 mg Heparin Sodium (Porcine) (Heparin -) 5,000 unit SQ BID [facility] Last Admin: 06/02/18 09:22 Dose: 5,000 unit Sodium Chloride (1/2 Normal Saline) 1,000 mls @ 75 mls/hr IV ASDIR [facility] Last Admin: 06/01/18 14:17 Dose: 75 mls/hr Insulin Aspart (Novolog Vial Sliding Scale -) 1 vial SQ ACHS [facility]; Protocol Last Admin: 06/02/18 06:54 Dose: Not Given Isosorbide Mononitrate (Imdur -) 30 mg PO DAILY [facility] Last Admin: 06/02/18 09:21 Dose: 30 mg Metoprolol Tartrate (Lopressor -) 100 mg PO BID [facility] Last Admin: 06/02/18 09:21 Dose: 100 mg Nifedipine (Procardia Xl -) 60 mg PO BID [facility] Last Admin: 06/02/18 09:20 Dose: 60 mg Ondansetron HCl (Zofran -) 8 mg PO TID PRN PRN Reason: NAUSEA Sodium Bicarbonate (Sodium Bicarbonate -) 1,300 mg PO BID [facility] Last Admin: 06/02/18 09:21 Dose: 1,300 mg - Objective Vital Signs: Vital Signs Temperature 98.1 F 06/02/18 08:22 Pulse Rate 74 06/02/18 08:22 Respiratory Rate 19 06/02/18 08:22 Blood Pressure 175/67 H 06/02/18 08:22 O2 Sat by Pulse Oximetry (%) 96 06/02/18 10:19 Constitutional: Yes: No Distress, Calm Eyes: Yes: Conjunctiva Clear HENT: Yes: Atraumatic Neck: Yes: Supple Cardiovascular: Yes: Regular Rate and Rhythm Respiratory: Yes: CTA Bilaterally Gastrointestinal: Yes: Soft. No: Tenderness Musculoskeletal: No: Joint Stiffness, Joint Swelling Extremities: No: Cold, Cool, Cyanosis Edema: No Integumentary: No: Rash, Venous Stasis Changes Neurological: Yes: WNL, Alert, Oriented ...Motor Strength: WNL Psychiatric: Yes: WNL, Alert, Oriented. No: Agitated, Suicidal Ideation Labs: CBC, BMP 06/02/18 05:30 06/02/18 05:30 - ....Imaging Other: Report Reviewed Assessment/Plan The patient is an 82 year old female with a PMH of HTN, NIDDM, HLD, CRF, PVD, ASHD - admitted to telemetry with weakness. Found to have positive troponins and ARF/CRF hyperK cardiology and renal f/u f/u CE ASA po, further w/u per cardio and renal might need dyalsis d/w pt and staff
--- NOTE | 2018-06-02 10:56 | PN ---
Progress Note (short form) - Note Progress Note: Renal follow up for CKD stage 5 pt seen and examined at the bedside no acute complaints no sob, cp, abd pain feels weak was not on IVF overnight making urine Vital Signs Temperature 98.1 F 06/02/18 08:22 Pulse Rate 74 06/02/18 08:22 Respiratory Rate 19 06/02/18 08:22 Blood Pressure 175/67 H 06/02/18 08:22 O2 Sat by Pulse Oximetry (%) 96 06/02/18 10:19 Intake & Output 05/30/18 05/31/18 06/01/18 06/02/18 23:59 23:59 23:59 23:59 Weight 56.699 kg 57.606 kg NAD awake and alert RRR CTA soft NT/ND no LE edema, clubbing or cyanosis CBC, BMP 06/02/18 05:30 06/02/18 05:30 Current Medications Acetaminophen (Tylenol -) 650 mg PO Q6H PRN PRN Reason: PAIN Alprazolam (Xanax -) 0.25 mg PO Q8H PRN PRN Reason: ANXIETY Last Admin: 06/01/18 16:39 Dose: 0.25 mg Amitriptyline HCl (Elavil -) 50 mg PO HS [facility] Last Admin: 06/01/18 21:45 Dose: 50 mg Aspirin (Ecotrin -) 81 mg PO DAILY [facility] Last Admin: 06/02/18 09:21 Dose: 81 mg Atorvastatin Calcium (Lipitor -) 10 mg PO HS [facility] Last Admin: 06/01/18 21:48 Dose: 10 mg Calcitriol (Rocaltrol -) 0.25 mcg PO DAILY [facility] Last Admin: 06/02/18 09:20 Dose: 0.25 mcg Cholestyramine Resin (Questran Light Packet -) 4 gm PO BID [facility] Last Admin: 06/02/18 09:22 Dose: 4 gm Ferrous Sulfate (Feosol -) 325 mg PO BID [facility] Last Admin: 06/02/18 09:21 Dose: 325 mg Glipizide (Glucotrol -) 5 mg PO AM [facility] Last Admin: 06/02/18 09:22 Dose: 5 mg Heparin Sodium (Porcine) (Heparin -) 5,000 unit SQ BID [facility] Last Admin: 06/02/18 09:22 Dose: 5,000 unit Sodium Chloride (1/2 Normal Saline) 1,000 mls @ 75 mls/hr IV ASDIR [facility] Last Admin: 06/01/18 14:17 Dose: 75 mls/hr Insulin Aspart (Novolog Vial Sliding Scale -) 1 vial SQ ACHS [facility]; Protocol Last Admin: 06/02/18 11:01 Dose: Not Given Isosorbide Mononitrate (Imdur -) 30 mg PO DAILY [facility] Last Admin: 06/02/18 09:21 Dose: 30 mg Metoprolol Tartrate (Lopressor -) 100 mg PO BID [facility] Last Admin: 06/02/18 09:21 Dose: 100 mg Nifedipine (Procardia Xl -) 60 mg PO BID [facility] Last Admin: 06/02/18 09:20 Dose: 60 mg Ondansetron HCl (Zofran -) 8 mg PO TID PRN PRN Reason: NAUSEA Sodium Bicarbonate (Sodium Bicarbonate -) 1,300 mg PO BID [facility] Last Admin: 06/02/18 09:21 Dose: 1,300 mg 82 year old woman with hx of CKD stage 5 likely due to diabetic nephropathy, Hypertension, CAD, PVD who presented with weakness, fatigue and anorexia and found to have hypertensive urgency and eGFR< 10. #CKD stage 5 with mild uremic symptoms #Hypertension (uncontrolled due to medication non-compliance) #Anemia related to CKD vs. blood loss #Metabolic acidosis BP improved overnight, high again this am if BP not well controlled can consider addition of clonidine (no hydralazien b/ c of + RAYMUNDO in the past, no JEANETTE/ARB given low eGFR) unfortunately based on her insurance she will be responsible for some portion of the dialysis cost at the beginning of treatment however she does not have an income she would qualify for grants and assistance she is agreeable to starting dialysis if needed f/u iron profile, hold JACOB until bp better controlled continue sodium bicarb BID dose all meds for CrCl less then 10 Quentin Goayl DO
[2018-06-02] MEDS: SODIUM CHLORIDE 0.45% 1,000 ML IV SCH (14:37)
[2018-06-02] MEDS ORDERED: PT OWN MED DRAWER 7, Y5N ONE ×2 (18:08→21:16)
[2018-06-02] MEDS: AMITRIPTYLINE HCL 25 MG TABLET (FP) PO SCH (21:21)
[2018-06-02] MEDS: ATORVASTATIN CA 10 MG TABLET (FP) PO SCH (21:22)
[2018-06-02 23:48] VITALS: BMI 21.8
[2018-06-03] MEDS: ALPRAZolam 0.25 MG TABLET PO PRN ×2 (02:43→19:56)
[2018-06-03 06:46] LABS: EOS % 5.8 % (0-4.5); HEMATOCRIT 23.2 % (32.4-45.2); LYMPH % 23.7 % (8-40); MCH 32.1 pg (25.7-33.7); MCHC 34.4 g/dl (32.0-36.0); MEAN CELL VOLUME 93.1 fl (80-96); MEAN PLT VOLUME 8.2 fl (7.5-11.1); MONO % 9.3 % (3.8-10.2); NEUT % 60.2 % (42.8-82.8); PLATELET COUNT 290 K/MM3 (134-434); RBC 2.49 M/mm3 (3.60-5.2); RDW 13.8 % (11.6-15.6); WHITE BLOOD COUNT 7.5 K/mm3 (4.0-10.0)
[2018-06-03 07:08] LABS: ALBUMIN 2.4 g/dl (3.4-5.0); ALK PHOS 60 U/L (45-117); ANION GAP 9 MMOL/L (8-16); BILIRUBIN,TOTAL 0.1 mg/dL (0.2-1); BLOOD UREA NITROGEN 57 mg/dL (7-18); CALCIUM 7.2 mg/dL (8.5-10.1); CHLORIDE 114 mmol/L (98-107); CO2 17 mmol/L (21-32); CREATININE 4.9 mg/dL (0.55-1.3); GLUCOSE,RANDOM 114 mg/dL (74-106); MAGNESIUM 1.8 mg/dL (1.8-2.4); PHOSPHOROUS 5.4 mg/dL (2.5-4.9); POTASSIUM 4.7 mmol/L (3.5-5.1); SGOT/AST 17 U/L (15-37); SGPT/ALT 17 U/L (13-61); SODIUM 141 mmol/L (136-145); TOT PROT 5.5 g/dl (6.4-8.2)
[2018-06-03] MEDS ORDERED: PT OWN MED DRAWER 7, Y5N ONE (07:50)
[2018-06-03] MEDS: INSULIN SLIDING SCALE (NOVOLOG) 1 VIAL SQ SCH ×4 (08:01→21:42)
[2018-06-03] MEDS: glipiZIDE 5 MG TABLET (FP) PO SCH (08:02)
[2018-06-03 08:08] LABS: SERUM IRON SATURATION 22 % (15-55); TOTAL IRON BINDING CAPACITY 206 ug/dL (250-450); UIBC 160 ug/dL (118-369)
[2018-06-03] MEDS ORDERED: IRON SUCROSE INJECTION 100 MG in SODIUM CHLORIDE 95 ML IVPB ONE (09:24)
--- NOTE | 2018-06-03 09:24 | PN ---
Progress Note (short form) - Note Progress Note: Renal follow up for CKD stage 5 pt seen and examined at the bedside pt upset, feels like she is trapped here no sob, cp, abd pain, n/v/d Vital Signs Temperature 98 F 06/02/18 22:00 Pulse Rate 69 06/03/18 08:05 Respiratory Rate 10 06/03/18 04:30 Blood Pressure 153/64 06/03/18 08:05 O2 Sat by Pulse Oximetry (%) 96 06/02/18 22:00 NAD awake and alert RRR CTA soft NT/ND no LE edema, clubbing or cyanosis CBC, BMP 06/03/18 05:30 06/03/18 05:30 Current Medications Acetaminophen (Tylenol -) 650 mg PO Q6H PRN PRN Reason: PAIN Alprazolam (Xanax -) 0.25 mg PO Q8H PRN PRN Reason: ANXIETY Last Admin: 06/03/18 02:43 Dose: 0.25 mg Amitriptyline HCl (Elavil -) 50 mg PO HS [facility] Last Admin: 06/02/18 21:21 Dose: 50 mg Aspirin (Ecotrin -) 81 mg PO DAILY [facility] Last Admin: 06/02/18 09:21 Dose: 81 mg Atorvastatin Calcium (Lipitor -) 10 mg PO HS [facility] Last Admin: 06/02/18 21:22 Dose: 10 mg Calcitriol (Rocaltrol -) 0.25 mcg PO DAILY [facility] Last Admin: 06/02/18 09:20 Dose: 0.25 mcg Cholestyramine Resin (Questran Light Packet -) 4 gm PO BID [facility] Last Admin: 06/02/18 21:22 Dose: 4 gm Ferrous Sulfate (Feosol -) 325 mg PO BID [facility] Last Admin: 06/02/18 21:22 Dose: 325 mg Glipizide (Glucotrol -) 5 mg PO AM [facility] Last Admin: 06/03/18 08:02 Dose: Not Given Heparin Sodium (Porcine) (Heparin -) 5,000 unit SQ BID [facility] Last Admin: 06/02/18 21:22 Dose: 5,000 unit Sodium Chloride (1/2 Normal Saline) 1,000 mls @ 75 mls/hr IV ASDIR [facility] Last Admin: 06/02/18 14:37 Dose: 75 mls/hr Insulin Aspart (Novolog Vial Sliding Scale -) 1 vial SQ ACHS [facility]; Protocol Last Admin: 06/03/18 08:01 Dose: Not Given Isosorbide Mononitrate (Imdur -) 30 mg PO DAILY [facility] Last Admin: 06/02/18 09:21 Dose: 30 mg Metoprolol Tartrate (Lopressor -) 100 mg PO BID [facility] Last Admin: 06/02/18 21:22 Dose: 100 mg Nifedipine (Procardia Xl -) 60 mg PO BID [facility] Last Admin: 06/02/18 21:22 Dose: 60 mg Ondansetron HCl (Zofran -) 8 mg PO TID PRN PRN Reason: NAUSEA Sodium Bicarbonate (Sodium Bicarbonate -) 1,300 mg PO BID [facility] Last Admin: 06/02/18 21:23 Dose: 1,300 mg 82 year old woman with hx of CKD stage 5 likely due to diabetic nephropathy, Hypertension, CAD, PVD who presented with weakness, fatigue and anorexia and found to have hypertensive urgency and eGFR< 10. #CKD stage 5 with mild uremic symptoms #Hypertension (uncontrolled due to medication non-compliance) #Anemia related to CKD vs. 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
[2018-06-03] MEDS: METOPROLOL TARTRATE 50 MG TABLET (FP) PO SCH ×2 (09:50→21:41)
[2018-06-03] MEDS: HEPARIN NA (PORCINE) 5,000 UNITS/ML 1ML VIAL SQ SCH ×2 (09:51→21:39)
[2018-06-03] MEDS: SODIUM BICARBONATE 650 MG TABLET PO SCH ×2 (09:51→21:39)
[2018-06-03] MEDS: ASPIRIN COATED 81 MG TABLET.EC PO SCH (09:51)
[2018-06-03] MEDS: ISOSORBIDE MONONITRATE 30 MG TAB.SR.24H (FP) PO SCH (09:51)
[2018-06-03] MEDS: FERROUS SO4 325 MG TABLET (FP) PO SCH ×2 (09:51→21:39)
[2018-06-03] MEDS: NIFEdipine E.R 60 MG TABLET (UD) PO SCH ×2 (09:51→21:42)
[2018-06-03] MEDS: CALCITRIOL 0.25 MCG CAPSULE (FP) PO SCH (09:52)
[2018-06-03] MEDS: CHOLESTYRAMINE/ASPARTAME 4 GM PACKET PO SCH ×2 (10:00→22:07)
--- NOTE | 2018-06-03 12:00 | PN ---
Progress Note, Physician History of Present Illness: Denies chest pain, dyspnea. Weakness, fatigue, anorexia, nausea and elevated BP improving. - Current Medication List Current Medications: Active Medications Acetaminophen (Tylenol -) 650 mg PO Q6H PRN PRN Reason: PAIN Alprazolam (Xanax -) 0.25 mg PO Q8H PRN PRN Reason: ANXIETY Last Admin: 06/03/18 02:43 Dose: 0.25 mg Amitriptyline HCl (Elavil -) 50 mg PO [facility] Last Admin: 06/02/18 21:21 Dose: 50 mg Aspirin (Ecotrin -) 81 mg PO DAILY [facility] Last Admin: 06/03/18 09:51 Dose: 81 mg Atorvastatin Calcium (Lipitor -) 10 mg PO HS [facility] Last Admin: 06/02/18 21:22 Dose: 10 mg Calcitriol (Rocaltrol -) 0.25 mcg PO DAILY [facility] Last Admin: 06/03/18 09:52 Dose: 0.25 mcg Cholestyramine Resin (Questran Light Packet -) 4 gm PO BID [facility] Last Admin: 06/02/18 21:22 Dose: 4 gm Ferrous Sulfate (Feosol -) 325 mg PO BID [facility] Last Admin: 06/03/18 09:51 Dose: 325 mg Glipizide (Glucotrol -) 5 mg PO AM [facility] Last Admin: 06/03/18 08:02 Dose: Not Given Heparin Sodium (Porcine) (Heparin -) 5,000 unit SQ BID [facility] Last Admin: 06/03/18 09:51 Dose: 5,000 unit Sodium Chloride (1/2 Normal Saline) 1,000 mls @ 75 mls/hr IV ASDIR [facility] Last Admin: 06/02/18 14:37 Dose: 75 mls/hr Insulin Aspart (Novolog Vial Sliding Scale -) 1 vial SQ [facility]; Protocol Last Admin: 06/03/18 08:01 Dose: Not Given Isosorbide Mononitrate (Imdur -) 30 mg PO DAILY [facility] Last Admin: 06/03/18 09:51 Dose: 30 mg Metoprolol Tartrate (Lopressor -) 100 mg PO BID [facility] Last Admin: 06/03/18 09:50 Dose: 100 mg Nifedipine (Procardia Xl -) 60 mg PO BID [facility] Last Admin: 06/03/18 09:51 Dose: 60 mg Ondansetron HCl (Zofran -) 8 mg PO TID PRN PRN Reason: NAUSEA Sodium Bicarbonate (Sodium Bicarbonate -) 1,300 mg PO BID [facility] Last Admin: 06/03/18 09:51 Dose: 1,300 mg - Objective Vital Signs: Vital Signs Temperature 98 F 06/02/18 22:00 Pulse Rate 69 06/03/18 08:05 Respiratory Rate 16 06/03/18 10:00 Blood Pressure 153/64 06/03/18 08:05 O2 Sat by Pulse Oximetry (%) 96 06/03/18 10:00 Constitutional: Yes: No Distress, Calm, Thin Neck: Yes: Supple Cardiovascular: Yes: Regular Rate and Rhythm Respiratory: Yes: Regular, Diminished, On Nasal O2 Gastrointestinal: Yes: Normal Bowel Sounds, Soft Edema: No Labs: CBC, BMP 06/03/18 05:30 06/03/18 05:30 - ....Imaging EKG: Report Reviewed (Tele: NSR) Problem List - Problems (1) Subendocardial ischemia Code(s): I24.8 - OTHER FORMS OF ACUTE ISCHEMIC HEART DISEASE (2) Hypertensive heart disease Code(s): I11.9 - HYPERTENSIVE HEART DISEASE WITHOUT HEART FAILURE Qualifiers: Heart failure presence: without heart failure Qualified Code(s): I11.9 - Hypertensive heart disease without heart failure (3) [id number] kidney injury Code(s): N17.9 - ACUTE KIDNEY FAILURE, UNSPECIFIED; N18.9 - CHRONIC KIDNEY DISEASE, UNSPECIFIED Qualifiers: Chronic kidney disease stage: stage 5, not on chronic dialysis (4) Anemia Code(s): D64.9 - ANEMIA, UNSPECIFIED Qualifiers: Anemia type: due to chronic kidney disease Chronic kidney disease stage: stage 5, not on chronic dialysis Qualified Code(s): N18.5 - Chronic kidney disease, stage 5; D63.1 - Anemia in chronic kidney disease (5) CAD (coronary artery disease) Code(s): I25.10 - ATHSCL HEART DISEASE OF [place] CORONARY ARTERY W/O ANG PCTRS Qualifiers: Coronary Disease-Associated Artery/Lesion type: [place] artery [place] vs. transplanted heart: [place] heart Associated angina: without angina Qualified Code(s): I25.10 - Atherosclerotic heart disease of [place] coronary artery without angina pectoris (6) Hyperlipidemia associated with type 2 diabetes mellitus Code(s): E11.69 - TYPE 2 DIABETES MELLITUS WITH OTHER SPECIFIED COMPLICATION; E78.5 - HYPERLIPIDEMIA, UNSPECIFIED (7) PAD (peripheral artery disease) Code(s): I73.9 - PERIPHERAL VASCULAR DISEASE, UNSPECIFIED (8) S/P femoropopliteal bypass surgery Code(s): Z95.828 - PRESENCE OF OTHER VASCULAR IMPLANTS AND GRAFTS (9) Uncontrolled hypertension Code(s): I10 - ESSENTIAL (PRIMARY) HYPERTENSION Assessment/Plan 04/01/16 Nuc stress: Mild apical ischemia, inferoseptal ischemia LVEF 70% 06/01/2018 Echo: Normal RV and LV size and fxn, mild cLVH, mild MR, TR, AR 1. CKD - pre dialysis with mild uremia 2. CAD subendocardial ishemia in context of 3. HTN urgency (uncontrolled due to medication non-compliance) 4. DM 5. Hypercholesterolemia 6. COPD h/o acute hypercapneic respiratory failure post ERCP related to anesthesia 7. Anemia of CKD PLAN: 1. 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 Trops have downtrended 3. Continue Lopressor 100 bid, Procardia XL 60 bid, ASA 81 qd, Lipitor 10 qd, Imdur 30 qd, holding ramipril and Lasix
[2018-06-03] MEDS: SODIUM CHLORIDE 0.45% 1,000 ML IV SCH (13:57)
--- NOTE | 2018-06-03 15:07 | PN ---
Progress Note, Physician Chief Complaint: feels better said she thought about dyalisis and needs more time to think about it aware of risks and complications of having it and not having it; dw pt in detail indications, risks, alternatives, technical details - pt worried about cost; working with dr Goyal and his human resources office manager together with pt's insurance - Current Medication List Current Medications: Active Medications Acetaminophen (Tylenol -) 650 mg PO Q6H PRN PRN Reason: PAIN Alprazolam (Xanax -) 0.25 mg PO Q8H PRN PRN Reason: ANXIETY Last Admin: 06/03/18 02:43 Dose: 0.25 mg Amitriptyline HCl (Elavil -) 50 mg PO HS [facility] Last Admin: 06/02/18 21:21 Dose: 50 mg Aspirin (Ecotrin -) 81 mg PO DAILY [facility] Last Admin: 06/03/18 09:51 Dose: 81 mg Atorvastatin Calcium (Lipitor -) 10 mg PO HS [facility] Last Admin: 06/02/18 21:22 Dose: 10 mg Calcitriol (Rocaltrol -) 0.25 mcg PO DAILY [facility] Last Admin: 06/03/18 09:52 Dose: 0.25 mcg Cholestyramine Resin (Questran Light Packet -) 4 gm PO BID [facility] Last Admin: 06/03/18 10:00 Dose: 4 gm Ferrous Sulfate (Feosol -) 325 mg PO BID [facility] Last Admin: 06/03/18 09:51 Dose: 325 mg Glipizide (Glucotrol -) 5 mg PO AM [facility] Last Admin: 06/03/18 08:02 Dose: Not Given Heparin Sodium (Porcine) (Heparin -) 5,000 unit SQ BID [facility] Last Admin: 06/03/18 09:51 Dose: 5,000 unit Sodium Chloride (1/2 Normal Saline) 1,000 mls @ 75 mls/hr IV ASDIR [facility] Last Admin: 06/03/18 13:57 Dose: 75 mls/hr Insulin Aspart (Novolog Vial Sliding Scale -) 1 vial SQ ACHS [facility]; Protocol Last Admin: 06/03/18 11:00 Dose: Not Given Isosorbide Mononitrate (Imdur -) 30 mg PO DAILY [facility] Last Admin: 06/03/18 09:51 Dose: 30 mg Metoprolol Tartrate (Lopressor -) 100 mg PO BID [facility] Last Admin: 06/03/18 09:50 Dose: 100 mg Nifedipine (Procardia Xl -) 60 mg PO BID [facility] Last Admin: 06/03/18 09:51 Dose: 60 mg Ondansetron HCl (Zofran -) 8 mg PO TID PRN PRN Reason: NAUSEA Sodium Bicarbonate (Sodium Bicarbonate -) 1,300 mg PO BID [facility] Last Admin: 06/03/18 09:51 Dose: 1,300 mg - Objective Vital Signs: Vital Signs Temperature 98 F 06/02/18 22:00 Pulse Rate 69 06/03/18 08:05 Respiratory Rate 16 06/03/18 10:00 Blood Pressure 153/64 06/03/18 08:05 O2 Sat by Pulse Oximetry (%) 96 06/03/18 10:00 Constitutional: Yes: No Distress, Calm Eyes: Yes: Conjunctiva Clear HENT: Yes: Atraumatic Neck: Yes: Supple Labs: CBC, BMP 06/03/18 05:30 06/03/18 05:30 Assessment/Plan The patient is an 82 year old female with a PMH of HTN, NIDDM, HLD, CRF, PVD, ASHD - admitted to telemetry with weakness. Found to have positive troponins and ARF/CRF hyperK cardiology and renal f/u ASA po, further w/u per cardio and renal might need dyalsis pt to decide further treatment d/w pt and staff
[2018-06-03] MEDS: ATORVASTATIN CA 10 MG TABLET (FP) PO SCH (21:39)
[2018-06-03] MEDS: AMITRIPTYLINE HCL 25 MG TABLET (FP) PO SCH (22:07)
[2018-06-04] MEDS: ALPRAZolam 0.25 MG TABLET PO PRN (06:24)
[2018-06-04] MEDS: glipiZIDE 5 MG TABLET (FP) PO SCH (06:25)
[2018-06-04 06:35] LABS: BASO % 1.1 % (0-2.0); EOS % 4.8 % (0-4.5); HEMATOCRIT 23.3 % (32.4-45.2); HEMOGLOBIN 7.8 GM/dL (10.7-15.3); LYMPH % 21.9 % (8-40); MCH 31.4 pg (25.7-33.7); MCHC 33.7 g/dl (32.0-36.0); MEAN CELL VOLUME 93.4 fl (80-96); MEAN PLT VOLUME 8.4 fl (7.5-11.1); MONO % 8.5 % (3.8-10.2); NEUT % 63.7 % (42.8-82.8); PLATELET COUNT 269 K/MM3 (134-434); RBC 2.49 M/mm3 (3.60-5.2); RDW 13.9 % (11.6-15.6); WHITE BLOOD COUNT 8.2 K/mm3 (4.0-10.0)
[2018-06-04] MEDS: INSULIN SLIDING SCALE (NOVOLOG) 1 VIAL SQ SCH ×4 (07:04→21:24)
[2018-06-04 08:18] LABS: ANION GAP 8 MMOL/L (8-16); BLOOD UREA NITROGEN 56 mg/dL (7-18); CALCIUM 7.2 mg/dL (8.5-10.1); CHLORIDE 113 mmol/L (98-107); CO2 19 mmol/L (21-32); CREATININE 4.9 mg/dL (0.55-1.3); GLUCOSE,RANDOM 103 mg/dL (74-106); MAGNESIUM 1.8 mg/dL (1.8-2.4); PHOSPHOROUS 5.4 mg/dL (2.5-4.9); POTASSIUM 4.9 mmol/L (3.5-5.1); SODIUM 140 mmol/L (136-145)
[2018-06-04] MEDS ORDERED: PT OWN MED DRAWER 7, Y5N ONE (09:17)
[2018-06-04] MEDS: ASPIRIN COATED 81 MG TABLET.EC PO SCH (09:22)
[2018-06-04] MEDS: FERROUS SO4 325 MG TABLET (FP) PO SCH ×2 (09:22→21:24)
[2018-06-04] MEDS: HEPARIN NA (PORCINE) 5,000 UNITS/ML 1ML VIAL SQ SCH ×2 (09:22→21:24)
[2018-06-04] MEDS: METOPROLOL TARTRATE 50 MG TABLET (FP) PO SCH ×2 (09:23→21:24)
[2018-06-04] MEDS: ISOSORBIDE MONONITRATE 30 MG TAB.SR.24H (FP) PO SCH (09:23)
[2018-06-04] MEDS: NIFEdipine E.R 60 MG TABLET (UD) PO SCH ×2 (09:23→21:25)
[2018-06-04] MEDS: CHOLESTYRAMINE/ASPARTAME 4 GM PACKET PO SCH (09:24)
[2018-06-04] MEDS: SODIUM BICARBONATE 650 MG TABLET PO SCH ×2 (09:24→21:23)
[2018-06-04] MEDS: CALCITRIOL 0.25 MCG CAPSULE (FP) PO SCH (09:24)
--- NOTE | 2018-06-04 09:43 | PN ---
Progress Note, Physician Chief Complaint: had diarrhea last night feels weak; BP better controlled anemia on IV iron, ordered sq epogen awaiting decision about dyalisis pt to d/w renal today - Current Medication List Current Medications: Active Medications Acetaminophen (Tylenol -) 650 mg PO Q6H PRN PRN Reason: PAIN Alprazolam (Xanax -) 0.25 mg PO Q8H PRN PRN Reason: ANXIETY Last Admin: 06/04/18 06:24 Dose: 0.25 mg Amitriptyline HCl (Elavil -) 50 mg PO HS [facility] Last Admin: 06/03/18 22:07 Dose: 50 mg Aspirin (Ecotrin -) 81 mg PO DAILY [facility] Last Admin: 06/04/18 09:22 Dose: 81 mg Atorvastatin Calcium (Lipitor -) 10 mg PO HS [facility] Last Admin: 06/03/18 21:39 Dose: 10 mg Calcitriol (Rocaltrol -) 0.25 mcg PO DAILY [facility] Last Admin: 06/04/18 09:24 Dose: 0.25 mcg Cholestyramine Resin (Questran Light Packet -) 4 gm PO BID [facility] Last Admin: 06/04/18 09:24 Dose: 4 gm Ferrous Sulfate (Feosol -) 325 mg PO BID [facility] Last Admin: 06/04/18 09:22 Dose: 325 mg Glipizide (Glucotrol -) 5 mg PO AM [facility] Last Admin: 06/04/18 06:25 Dose: 5 mg Heparin Sodium (Porcine) (Heparin -) 5,000 unit SQ BID [facility] Last Admin: 06/04/18 09:22 Dose: 5,000 unit Sodium Chloride (1/2 Normal Saline) 1,000 mls @ 75 mls/hr IV ASDIR [facility] Last Admin: 06/03/18 13:57 Dose: 75 mls/hr Insulin Aspart (Novolog Vial Sliding Scale -) 1 vial SQ ACHS [facility]; Protocol Last Admin: 06/04/18 07:04 Dose: Not Given Isosorbide Mononitrate (Imdur -) 30 mg PO DAILY [facility] Last Admin: 06/04/18 09:23 Dose: 30 mg Metoprolol Tartrate (Lopressor -) 100 mg PO BID [facility] Last Admin: 06/04/18 09:23 Dose: 100 mg Nifedipine (Procardia Xl -) 60 mg PO BID [facility] Last Admin: 06/04/18 09:23 Dose: 60 mg Ondansetron HCl (Zofran -) 8 mg PO TID PRN PRN Reason: NAUSEA Sodium Bicarbonate (Sodium Bicarbonate -) 1,300 mg PO BID [facility] Last Admin: 06/04/18 09:24 Dose: 1,300 mg - Objective Vital Signs: Vital Signs Temperature 98.6 F 06/04/18 06:00 Pulse Rate 72 06/04/18 08:05 Respiratory Rate 15 06/04/18 08:05 Blood Pressure 167/70 06/04/18 08:05 O2 Sat by Pulse Oximetry (%) 98 06/04/18 07:57 Constitutional: Yes: No Distress, Calm Eyes: Yes: Conjunctiva Clear HENT: Yes: Atraumatic Neck: Yes: Supple Cardiovascular: Yes: Regular Rate and Rhythm Respiratory: Yes: CTA Bilaterally Gastrointestinal: Yes: Soft. No: Tenderness Genitourinary: No: CVA Tenderness - Left, CVA Tenderness - Right Musculoskeletal: No: Joint Stiffness, Joint Swelling Extremities: No: Cold, Cool Edema: No Integumentary: No: Rash, Venous Stasis Changes Neurological: Yes: WNL, Alert, Oriented ...Motor Strength: WNL Psychiatric: Yes: WNL, Alert, Oriented. No: Agitated, Suicidal Ideation Labs: CBC, BMP 06/04/18 05:30 06/04/18 05:30 - ....Imaging Other: Report Reviewed Assessment/Plan The patient is an 82 year old female with a PMH of HTN, NIDDM, HLD, CRF, PVD, ASHD - admitted to telemetry with weakness. Found to have positive troponins and ARF/CRF hyperK cardiology and renal f/u ASA po, further w/u per cardio and renal might need dyalsis pt to decide further treatment d/w pt and staff
--- NOTE | 2018-06-04 10:02 | PN ---
Progress Note, Physician History of Present Illness: Denies chest pain, dyspnea. Weakness, fatigue, anorexia, nausea and elevated BP improving. Chronic diarrhea amenable to cholestyramine. - Current Medication List Current Medications: Active Medications Acetaminophen (Tylenol -) 650 mg PO Q6H PRN PRN Reason: PAIN Alprazolam (Xanax -) 0.25 mg PO Q8H PRN PRN Reason: ANXIETY Last Admin: 06/04/18 06:24 Dose: 0.25 mg Amitriptyline HCl (Elavil -) 50 mg PO HS [facility] Last Admin: 06/03/18 22:07 Dose: 50 mg Aspirin (Ecotrin -) 81 mg PO DAILY [facility] Last Admin: 06/04/18 09:22 Dose: 81 mg Atorvastatin Calcium (Lipitor -) 10 mg PO HS [facility] Last Admin: 06/03/18 21:39 Dose: 10 mg Calcitriol (Rocaltrol -) 0.25 mcg PO DAILY [facility] Last Admin: 06/04/18 09:24 Dose: 0.25 mcg Cholestyramine Resin (Questran Light Packet -) 4 gm PO BID [facility] Last Admin: 06/04/18 09:24 Dose: 4 gm Epoetin Paco (Procrit -) 10,000 unit SQ ONCE ONE Stop: 06/04/18 10:31 Ferrous Sulfate (Feosol -) 325 mg PO BID [facility] Last Admin: 06/04/18 09:22 Dose: 325 mg Glipizide (Glucotrol -) 5 mg PO AM [facility] Last Admin: 06/04/18 06:25 Dose: 5 mg Heparin Sodium (Porcine) (Heparin -) 5,000 unit SQ BID [facility] Last Admin: 06/04/18 09:22 Dose: 5,000 unit Sodium Chloride (1/2 Normal Saline) 1,000 mls @ 75 mls/hr IV ASDIR [facility] Last Admin: 06/03/18 13:57 Dose: 75 mls/hr Insulin Aspart (Novolog Vial Sliding Scale -) 1 vial SQ [facility]; Protocol Last Admin: 06/04/18 07:04 Dose: Not Given Isosorbide Mononitrate (Imdur -) 30 mg PO DAILY [facility] Last Admin: 06/04/18 09:23 Dose: 30 mg Metoprolol Tartrate (Lopressor -) 100 mg PO BID [facility] Last Admin: 06/04/18 09:23 Dose: 100 mg Nifedipine (Procardia Xl -) 60 mg PO BID [facility] Last Admin: 06/04/18 09:23 Dose: 60 mg Ondansetron HCl (Zofran -) 8 mg PO TID PRN PRN Reason: NAUSEA Sodium Bicarbonate (Sodium Bicarbonate -) 1,300 mg PO BID [facility] Last Admin: 06/04/18 09:24 Dose: 1,300 mg - Objective Vital Signs: Vital Signs Temperature 98.6 F 06/04/18 06:00 Pulse Rate 72 06/04/18 08:05 Respiratory Rate 15 06/04/18 08:05 Blood Pressure 167/70 06/04/18 08:05 O2 Sat by Pulse Oximetry (%) 98 06/04/18 07:57 Constitutional: Yes: No Distress, Calm, Thin Neck: Yes: Supple Cardiovascular: Yes: Regular Rate and Rhythm Respiratory: Yes: Regular, Diminished Gastrointestinal: Yes: Normal Bowel Sounds, Soft Edema: No Labs: CBC, BMP 06/04/18 05:30 06/04/18 05:30 - ....Imaging EKG: Report Reviewed (Tele: NSR) Problem List - Problems (1) Subendocardial ischemia Code(s): I24.8 - OTHER FORMS OF ACUTE ISCHEMIC HEART DISEASE (2) Hypertensive heart disease Code(s): I11.9 - HYPERTENSIVE HEART DISEASE WITHOUT HEART FAILURE Qualifiers: Heart failure presence: without heart failure Qualified Code(s): I11.9 - Hypertensive heart disease without heart failure (3) Iibhv-da-wuwkbim kidney injury Code(s): N17.9 - ACUTE KIDNEY FAILURE, UNSPECIFIED; N18.9 - CHRONIC KIDNEY DISEASE, UNSPECIFIED Qualifiers: Chronic kidney disease stage: stage 5, not on chronic dialysis (4) Anemia Code(s): D64.9 - ANEMIA, UNSPECIFIED Qualifiers: Anemia type: due to chronic kidney disease Chronic kidney disease stage: stage 5, not on chronic dialysis Qualified Code(s): N18.5 - Chronic kidney disease, stage 5; D63.1 - Anemia in chronic kidney disease (5) CAD (coronary artery disease) Code(s): I25.10 - ATHSCL HEART DISEASE OF [place] CORONARY ARTERY W/O ANG PCTRS Qualifiers: Coronary Disease-Associated Artery/Lesion type: [place] artery [place] vs. transplanted heart: [place] heart Associated angina: without angina Qualified Code(s): I25.10 - Atherosclerotic heart disease of [place] coronary artery without angina pectoris (6) Hyperlipidemia associated with type 2 diabetes mellitus Code(s): E11.69 - TYPE 2 DIABETES MELLITUS WITH OTHER SPECIFIED COMPLICATION; E78.5 - HYPERLIPIDEMIA, UNSPECIFIED (7) PAD (peripheral artery disease) Code(s): I73.9 - PERIPHERAL VASCULAR DISEASE, UNSPECIFIED (8) S/P femoropopliteal bypass surgery Code(s): Z95.828 - PRESENCE OF OTHER VASCULAR IMPLANTS AND GRAFTS (9) Uncontrolled hypertension Code(s): I10 - ESSENTIAL (PRIMARY) HYPERTENSION Assessment/Plan 04/01/16 Nuc stress: Mild apical ischemia, inferoseptal ischemia LVEF 70% 06/01/2018 Echo: Normal RV and LV size and fxn, mild cLVH, mild MR, TR, AR 1. CKD - pre dialysis with mild uremia 2. CAD subendocardial [place] in context of 3. HTN urgency (uncontrolled due to medication non-compliance) 4. DM 5. Hypercholesterolemia 6. COPD h/o acute hypercapneic respiratory failure post ERCP related to anesthesia 7. Anemia of CKD PLAN: 1. Renal input for CUSTOM SHOP WORKER consideration, judicious IVF with monitor renal recovery 2. Trops have downtrended 3. Continue Lopressor 100 bid, Procardia XL 60 bid, ASA 81 qd, Lipitor 10 qd, increase Imdur 60 qd, holding ramipril and Lasix
[2018-06-04] MEDS ORDERED: EPOETIN ALFA 10,000 UNIT/1 ML VIAL SQ ONE (10:30)
[2018-06-04] MEDS ORDERED: INSULIN (NOVOLOG) ASPART 100 UNITS/ML 10ML VIAL ONE (11:13)
--- NOTE | 2018-06-04 11:26 | PN ---
Progress Note (short form) - Note Progress Note: Renal follow up for CKD stage 5 pt seen and examined at the bedside awake and alert no acute complaints no sob, cp, abd pain feels weak Vital Signs Temperature 98.6 F 06/04/18 06:00 Pulse Rate 72 06/04/18 08:05 Respiratory Rate 15 06/04/18 08:05 Blood Pressure 167/70 06/04/18 08:05 O2 Sat by Pulse Oximetry (%) 98 06/04/18 07:57 Intake & Output 06/01/18 06/02/18 06/03/18 06/04/18 23:59 23:59 23:59 23:59 Intake Total 1020 1150 1000 Balance 1020 1150 1000 Weight 57.606 kg NAD awake and alert RRR CTA soft NT/ND no LE edema, clubbing or cyanosis CBC, BMP 06/04/18 05:30 06/04/18 05:30 Current Medications Acetaminophen (Tylenol -) 650 mg PO Q6H PRN PRN Reason: PAIN Alprazolam (Xanax -) 0.25 mg PO Q8H PRN PRN Reason: ANXIETY Last Admin: 06/04/18 06:24 Dose: 0.25 mg Amitriptyline HCl (Elavil -) 50 mg PO HS [facility] Last Admin: 06/03/18 22:07 Dose: 50 mg Aspirin (Ecotrin -) 81 mg PO DAILY [facility] Last Admin: 06/04/18 09:22 Dose: 81 mg Atorvastatin Calcium (Lipitor -) 10 mg PO HS [facility] Last Admin: 06/03/18 21:39 Dose: 10 mg Calcitriol (Rocaltrol -) 0.25 mcg PO DAILY [facility] Last Admin: 06/04/18 09:24 Dose: 0.25 mcg Cholestyramine Resin (Questran Light Packet -) 4 gm PO BID [facility] Last Admin: 06/04/18 09:24 Dose: 4 gm Ferrous Sulfate (Feosol -) 325 mg PO BID [facility] Last Admin: 06/04/18 09:22 Dose: 325 mg Glipizide (Glucotrol -) 5 mg PO AM [facility] Last Admin: 06/04/18 06:25 Dose: 5 mg Heparin Sodium (Porcine) (Heparin -) 5,000 unit SQ BID [facility] Last Admin: 06/04/18 09:22 Dose: 5,000 unit Sodium Chloride (1/2 Normal Saline) 1,000 mls @ 75 mls/hr IV ASDIR [facility] Last Admin: 06/03/18 13:57 Dose: 75 mls/hr Insulin Aspart (Novolog Vial Sliding Scale -) 1 vial SQ ACHS [facility]; Protocol Last Admin: 06/04/18 07:04 Dose: Not Given Isosorbide Mononitrate (Imdur -) 60 mg PO DAILY [facility] Isosorbide Mononitrate (Imdur -) 30 mg PO ONCE ONE Stop: 06/04/18 11:10 Metoprolol Tartrate (Lopressor -) 100 mg PO BID [facility] Last Admin: 06/04/18 09:23 Dose: 100 mg Nifedipine (Procardia Xl -) 60 mg PO BID [facility] Last Admin: 06/04/18 09:23 Dose: 60 mg Ondansetron HCl (Zofran -) 8 mg PO TID PRN PRN Reason: NAUSEA Sodium Bicarbonate (Sodium Bicarbonate -) 1,300 mg PO BID [facility] Last Admin: 06/04/18 09:24 Dose: 1,300 mg 82 year old woman with hx of CKD stage 5 likely due to diabetic nephropathy, Hypertension, CAD, PVD who presented with weakness, fatigue and anorexia and found to have hypertensive urgency and eGFR< 10. #CKD stage 5 with mild uremic symptoms #Hypertension #Anemia related to CKD vs. blood loss #Metabolic acidosis will d/c IVF today case discussed with social work at dialysis unit and pt is eligible for bill forgiveness if she does not have income pt agreeable to starting dialysis but wants to think about if she wants to start it now will ask vascular to see her and tentatively schedule for access placement continue present meds to get JACOB today s/p IV iron yesterday trend H/H, BUN/Cr and electrolytes continue sodium bicarb continue present BP meds dose all meds for CrCl < 10 Quentin Goyal DO
[2018-06-04] MEDS ORDERED: ISOSORBIDE MONONITRATE 60 MG TAB.SR.24H (FP) PO ONE (11:45)
--- NOTE | 2018-06-04 12:36 | PN ---
Progress Note (short form) - Note Progress Note: Vascular Surgery For permacath insertion annalise afternoon. Please optimize from medical standpoint. Bob Jane DO
[2018-06-04] MEDS ORDERED: NIFEdipine E.R. 30 MG TABLET (FP) PO STA (15:41)
--- NOTE | 2018-06-04 16:38 | CON.GI ---
Consult Consult Specialty:: GI: Dr. Sandoval for Dr. Zuniga Referred by:: Dr. Angela Barahona Reason for Consultation:: Diarrhea - History of Present Illness Chief Complaint: Renal issues History of Present Illness: 82F previously evaluated for anemia in 2013 when I was with the [facility]. EGD and colonoscopy were unremarkable at that time. Seen while admitted to [facility] 10/06 and had suspected cholecystitis/ choledocholithiasis (via MRCP). She refused ERCP/Cholecystectomy at that time. 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 She complains of diarrhea since that time. She was admitted for weakness. She has elevated troponins, chronic anemia. She was last seen by Dr. Patric John who alluded to Ms. Mckeon having had a colonoscopy [address] Mc[address]land[address] Ms. Mckeon does not remember this. Cholestyramine seems to control her symptoms. She is being evaluated for dialysis catheter placement. Scant loose BM reported by nursing. - History Source History Provided By: Patient - Past Medical History Cardio/Vascular: Yes: HTN, Hyperlipdemia, Murmur, Other (PAD) Pulmonary: Yes: Asthma, COPD Hepatobiliary: Yes: Cholelithiasis, Choledocholithiasis Renal/: Yes: Renal Inusuff Infectious Disease: Yes: Other (history of osteomyelitis in the past) Endocrine: Yes: Diabetes Mellitus - Past Surgical History Past Surgical History: Yes: Amputation (1-st R toe amputation), Bypass (Right fem pop bypass) - Alcohol/Substance Use Hx Alcohol Use: No History of Substance Use: reports: None - Smoking History Smoking history: Never smoked Have you smoked in the past 12 months: No Aproximately how many cigarettes per day: 10 If you are a former smoker, when did you quit?: 08/10/2012 - Social History Usual Living Arrangement: Alone ADL: Independent 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, 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, 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 Travel: No Home Medications - Allergies Allergies/Adverse Reactions: Allergies Allergy/AdvReac Type Severity Reaction Status Date / Time iodine Allergy Rash Verified 05/31/18 19:39 penicillin V Allergy Verified 05/31/18 19:39 shellfish derived Allergy Rash Verified 05/31/18 19:39 vancomycin Allergy Verified 05/31/18 19:39 azithromycin AdvReac Verified 05/31/18 19:39 - Home Medications Home Medications: Ambulatory Orders Ferrous Sulfate 325 mg PO BID 08/29/16 Nifedipine ER [Procardia XL -] 60 mg PO BID 08/29/16 Aspirin Coated [Ecotrin -] 81 mg PO DAILY tablet.ec 09/15/16 Glipizide 5 mg PO DAILY 06/26/17 Calcitriol [Calcitriol -] 0.25 mcg PO DAILY capsule 12/29/17 Cholestyramine/Aspartame [Questran Light Packet -] 4 gm PO BID packet 12/29/17 Ferrous Sulfate [Feosol] 325 mg PO BID ud 12/29/17 Metoprolol Tartrate [Lopressor -] 100 mg PO BID tablet 12/29/17 Alprazolam [Xanax] 0.25 mg PO Q8H PRN 05/05/18 Amitriptyline HCl [Elavil -] 25 mg PO HS 05/05/18 Atorvastatin Ca [Lipitor] 10 mg PO HS 05/05/18 Furosemide [Lasix] 20 mg PO ASDIR PRN 05/05/18 Isosorbide Mononitrate [Imdur -] 30 mg PO DAILY 05/05/18 Ondansetron HCl [Zofran] 8 mg PO TID PRN 05/05/18 Sodium Bicarbonate - 650 mg PO BID 05/05/18 Family Disease History - Family Disease History Family Disease History: CA: Father (lung ca), Mother (, lung ca), Sister (lung ca) Review of Systems - Review of Systems Constitutional: denies: Fever Cardiovascular: denies: Chest Pain Respiratory: denies: SOB Gastrointestinal: reports: Diarrhea. denies: Abdominal Pain, Melena, Rectal Bleeding Physical Exam-GI Vital Signs: Vital Signs Temperature 98.7 F 06/04/18 14:00 Pulse Rate 74 06/04/18 14:00 Respiratory Rate 19 06/04/18 14:00 Blood Pressure 187/87 H 06/04/18 14:00 O2 Sat by Pulse Oximetry (%) 98 06/04/18 07:57 Constitutional: Yes: Calm Eyes: No: Sclera Icterus Cardiovascular: Yes: Regular Rate and Rhythm. No: Murmur Respiratory: Yes: CTA Bilaterally Gastrointestinal Inspection: Yes: Scars (healed trochar scars) ...Auscultate: Yes: Normoactive Bowel Sounds ...Palpate: No: Hepatomegaly, Splenomegaly, Tenderness ...Percussion: No: Tympanitic Edema: No (No LE edema) Neurological: Yes: Alert Labs: CBC, BMP 06/04/18 05:30 06/04/18 05:30 Hepatic Panel Total Bilirubin 0.1 mg/dL (0.2-1) L 06/03/18 05:30 AST 17 U/L (15-37) 06/03/18 05:30 ALT 17 U/L (13-61) 06/03/18 05:30 Alkaline Phosphatase 60 U/L (45-117) 06/03/18 05:30 Albumin 2.4 g/dl (3.4-5.0) L 06/03/18 05:30 Problem List - Problems (1) Diarrhea Assessment/Plan: ? if post cholecystecomy syndrome as cholestyramine tends to control her symptoms Decrease the frequency of the cholestyramine to 2g once daily in the afternoon after her morning meds are given Ms. Mckeon is contemplating whether or not she wants to have a dialysis catheter placed. I asked that she discuss this with Dr. Barahona Outpatient follow-up with Dr. Zuniga Code(s): R19.7 - DIARRHEA, UNSPECIFIED Qualifiers: Diarrhea type: unspecified type Qualified Code(s): R19.7 - Diarrhea, unspecified
[2018-06-04] MEDS: AMITRIPTYLINE HCL 25 MG TABLET (FP) PO SCH (21:23)
[2018-06-04] MEDS: ATORVASTATIN CA 10 MG TABLET (FP) PO SCH (21:24)
[2018-06-05 06:13] LABS: BASO % 1.2 % (0-2.0); EOS % 5.9 % (0-4.5); HEMATOCRIT 23.8 % (32.4-45.2); MCH 31.4 pg (25.7-33.7); MCHC 33.8 g/dl (32.0-36.0); MEAN CELL VOLUME 92.9 fl (80-96); MEAN PLT VOLUME 8.4 fl (7.5-11.1); MONO % 9.9 % (3.8-10.2); PLATELET COUNT 275 K/MM3 (134-434); RBC 2.56 M/mm3 (3.60-5.2); RDW 13.9 % (11.6-15.6); WHITE BLOOD COUNT 6.4 K/mm3 (4.0-10.0)
[2018-06-05] MEDS: glipiZIDE 5 MG TABLET (FP) PO SCH (06:22)
--- NOTE | 2018-06-05 06:28 | PN ---
Progress Note (short form) - Note Progress Note: Chief Complaint: Events noted, notes reviewed, denies any chest pain or dyspnea , sinus rhythm is noted History of Present Illness: Seen and examined on telemetry. Events noted, notes reviewed, denies any chest pain or dyspnea, sinus rhythm is noted - Current Medication List Current Medications Acetaminophen (Tylenol -) 650 mg PO Q6H PRN PRN Reason: PAIN Alprazolam (Xanax -) 0.25 mg PO Q8H PRN PRN Reason: ANXIETY Last Admin: 06/04/18 06:24 Dose: 0.25 mg Amitriptyline HCl (Elavil -) 50 mg PO HS [facility] Last Admin: 06/04/18 21:23 Dose: 50 mg Aspirin (Ecotrin -) 81 mg PO DAILY [facility] Last Admin: 06/04/18 09:22 Dose: 81 mg Atorvastatin Calcium (Lipitor -) 10 mg PO HS [facility] Last Admin: 06/04/18 21:24 Dose: 10 mg Calcitriol (Rocaltrol -) 0.25 mcg PO DAILY [facility] Last Admin: 06/04/18 09:24 Dose: 0.25 mcg Cholestyramine Resin (Questran Packet -) 2 gm PO 1200 [facility] Ferrous Sulfate (Feosol -) 325 mg PO BID [facility] Last Admin: 06/04/18 21:24 Dose: 325 mg Glipizide (Glucotrol -) 5 mg PO AM [facility] Last Admin: 06/05/18 06:22 Dose: 5 mg Heparin Sodium (Porcine) (Heparin -) 5,000 unit SQ BID [facility] Last Admin: 06/04/18 21:24 Dose: 5,000 unit Insulin Aspart (Novolog Vial Sliding Scale -) 1 vial SQ [facility]; Protocol Last Admin: 06/04/18 21:24 Dose: Not Given Isosorbide Mononitrate (Imdur -) 60 mg PO DAILY [facility] Metoprolol Tartrate (Lopressor -) 100 mg PO BID [facility] Last Admin: 06/04/18 21:24 Dose: 100 mg Nifedipine (Procardia Xl -) 60 mg PO BID [facility] Last Admin: 06/04/18 21:25 Dose: 60 mg Ondansetron HCl (Zofran -) 8 mg PO TID PRN PRN Reason: NAUSEA Sodium Bicarbonate (Sodium Bicarbonate -) 1,300 mg PO BID [facility] Last Admin: 06/04/18 21:23 Dose: 1,300 mg Review of Systems - Review of Systems Constitutional: no symptoms reported Respiratory: denies Cough or Sputum Production Cardiovascular: as noted above Gastrointestinal: denies Nausea, Vomiting, Diarrhea, Constipation or Abdominal Pain Genitourinary: no symptoms reported Musculoskeletal: no symptoms reported Endocrine: no symptoms reported - Objective Vital Signs: Last Vital Signs Temp Pulse Resp BP Pulse Ox 98.1 F 70 16 147/58 L 98 06/05/18 04:00 06/05/18 04:00 06/05/18 04:00 06/05/18 04:00 06/04/18 19:57 Intake & Output 06/02/18 06/03/18 06/04/18 06/05/18 23:59 23:59 23:59 23:59 Intake Total 1020 1150 1050 Balance 1020 1150 1050 Weight 127 lb Neck: Supple Negative JVD No Bruit Cardiovascular: S1 S2 Regular Rate and Rhythm Respiratory: Clear to A&P Bilaterally Gastrointestinal: Soft Benign Normal Bowel Sounds Extremities: No Edema Labs: CBC, BMP 06/05/18 05:30 06/05/18 05:30 Hepatic Panel Total Bilirubin 0.2 mg/dL (0.2-1) 06/05/18 05:30 AST 13 U/L (15-37) L 06/05/18 05:30 ALT 19 U/L (13-61) 06/05/18 05:30 Alkaline Phosphatase 67 U/L (45-117) 06/05/18 05:30 Albumin 2.6 g/dl (3.4-5.0) L 06/05/18 05:30 Assessment/Plan ASSESSMENT: 1. Acute on chronic kidney disease, pre dialysis 2. CAD angina pectoris with subendocardial ishemia/demand ischemic in jury in context of 3. Hypertensive urgency (uncontrolled due to medication administration non- compliance) 4. Diastolic LV dysfunction with clinical class 0 NYHA classification LV failure 5. DM 6. Hypercholesterolemia 7. History of PAD post right fem-pop bypass 8. COPD with history of acute hypercapneic respiratory failure post ERCP related to anesthesia 9. Anemia of CKD 10. Post toe amputation for osteomyelitis PLAN: 1. Continue Lopressor 2. Continue Procardia XL 3. Resume Ramipril +/- Lasix once renal function stabilizes 4. Continue Imdur 5. Continue ASA 6. Continue Lipitor Saulat Donato MD
[2018-06-05] MEDS: INSULIN SLIDING SCALE (NOVOLOG) 1 VIAL SQ SCH ×2 (06:29→12:46)
[2018-06-05 06:35] LABS: ALBUMIN 2.6 g/dl (3.4-5.0); ALK PHOS 67 U/L (45-117); ANION GAP 7 MMOL/L (8-16); BILIRUBIN,TOTAL 0.2 mg/dL (0.2-1); BLOOD UREA NITROGEN 49 mg/dL (7-18); CALCIUM 7.6 mg/dL (8.5-10.1); CHLORIDE 116 mmol/L (98-107); CO2 18 mmol/L (21-32); CREATININE 4.9 mg/dL (0.55-1.3); GLUCOSE,RANDOM 85 mg/dL (74-106); POTASSIUM 4.5 mmol/L (3.5-5.1); SGOT/AST 13 U/L (15-37); SGPT/ALT 19 U/L (13-61); SODIUM 141 mmol/L (136-145); TOT PROT 5.8 g/dl (6.4-8.2)
--- NOTE | 2018-06-05 09:35 | DS ---
Physical Examination Vital Signs: Vital Signs Temperature 98 F 06/05/18 06:00 Pulse Rate 70 06/05/18 06:00 Respiratory Rate 16 06/05/18 06:00 Blood Pressure 141/54 L 06/05/18 06:00 O2 Sat by Pulse Oximetry (%) 98 06/04/18 19:57 Findings/Remarks: no new c/o feels better less fatigue, no CP/SOB, no diarrhea. Hg 8.0 received iv iron, I ordered sq epogen yesterday but pt refused it yesterday now she accepted to have it, will give it sq; regarding dyalisis she said she is not ready to make this commitment yet, she spoke with dr Goyal at length who told her that the [facility] and her insurance will work to wave her copays and give her grants to help her do it but she said she still is not ready to do it and wants to go home and f/u woth renal as outpt, she is fully aware it is a time sensitive issue and she could without it ( uremia, hyperK, arrythmia etc); she was supposed to have permacath today inserted by dr Jane but she refused it. She will go home and f/u labs renal dr within 1 week. Also I d/w pt b/o TYRA she should see GI and have EGD colonoscopy which were proposed to her in the past and she refused them as well, and she is still refusing them currently. Pt seems AxOx3 NAD able to understand issues appropriately. all meds and DC instructions d/w pt - f/u with renal, GI and cardio as outpt over the next few days d.w renal dr Goyal d/w staff t time 40 min Constitutional: Yes: No Distress, Calm Eyes: Yes: Conjunctiva Clear HENT: Yes: Atraumatic Neck: Yes: Supple Cardiovascular: Yes: Regular Rate and Rhythm Respiratory: Yes: CTA Bilaterally Gastrointestinal: Yes: Soft. No: Tenderness Renal/: No: CVA Tenderness - Left, CVA Tenderness - Right Musculoskeletal: No: Joint Stiffness, Joint Swelling Extremities: No: Cold, Cool, Cyanosis Edema: No Integumentary: No: Rash, Venous Stasis Changes Neurological: Yes: WNL, Alert, Oriented ...Motor Strength: WNL Psychiatric: Yes: WNL, Alert, Oriented. No: Agitated, Suicidal Ideation Labs: CBC, BMP 06/05/18 05:30 06/05/18 05:30 Discharge Summary Reason For Visit: ELEVATED TROPONIN LEVEL Current Active Problems Elevated troponin (Acute) Hypertensive heart disease (Acute) Subendocardial ischemia (Acute) Procedures: Principal: admitted with fatigue and uremia, + CE and anemia probably sec to worsening renal failure Other Procedures: seen by cardiology and renal; advised again to start dyalsis but pt refused again Hospital Course: DC home and f/u with cardio, GI and renal drs within 1-2 weeks; f/u labs within 1 week; RTER if worse or recurrent c/o Condition: Fair - Instructions Diet, Activity, Other Instructions: f/u PCP Renal and labs within 1 week f/u cardiology, GI in 2-4 weeks falls PFX stop smoking RTER if worse or recurrent c/o Referrals: Angela Barahona [Primary Care Provider] - Sonya Zuniga DO [Staff Physician] - Quentin Goyal MD [Staff Physician] - Oswaldo Lam MD [Staff Physician] - Disposition: VNS/HOME HEALTH CARE - Home Medications Comprehensive Discharge Medication List: Ambulatory Orders Ferrous Sulfate 325 mg PO BID 08/29/16 Nifedipine ER [Procardia XL -] 60 mg PO BID 08/29/16 Aspirin Coated [Ecotrin -] 81 mg PO DAILY tablet.ec 09/15/16 Glipizide 5 mg PO DAILY 06/26/17 Calcitriol [Calcitriol -] 0.25 mcg PO DAILY capsule 12/29/17 Cholestyramine/Aspartame [Questran Light Packet -] 4 gm PO BID packet 12/29/17 Ferrous Sulfate [Feosol] 325 mg PO BID ud 12/29/17 Metoprolol Tartrate [Lopressor -] 100 mg PO BID tablet 12/29/17 Alprazolam [Xanax] 0.25 mg PO Q8H PRN 05/05/18 Amitriptyline HCl [Elavil -] 25 mg PO HS 05/05/18 Atorvastatin Ca [Lipitor] 10 mg PO HS 05/05/18 Furosemide [Lasix] 20 mg PO ASDIR PRN 05/05/18 Isosorbide Mononitrate [Imdur -] 30 mg PO DAILY 05/05/18 Ondansetron HCl [Zofran] 8 mg PO TID PRN 05/05/18 Sodium Bicarbonate - 650 mg PO BID 05/05/18
[2018-06-05] MEDS: METOPROLOL TARTRATE 50 MG TABLET (FP) PO SCH (09:54)
[2018-06-05] MEDS: SODIUM BICARBONATE 650 MG TABLET PO SCH (09:54)
[2018-06-05] MEDS: HEPARIN NA (PORCINE) 5,000 UNITS/ML 1ML VIAL SQ SCH (09:55)
[2018-06-05] MEDS: FERROUS SO4 325 MG TABLET (FP) PO SCH (09:55)
[2018-06-05] MEDS: ASPIRIN COATED 81 MG TABLET.EC PO SCH (09:55)
[2018-06-05] MEDS: CALCITRIOL 0.25 MCG CAPSULE (FP) PO SCH (09:56)
[2018-06-05] MEDS: NIFEdipine E.R 60 MG TABLET (UD) PO SCH (09:57)
[2018-06-05] MEDS ORDERED: ISOSORBIDE MONONITRATE 60 MG TAB.SR.24H (FP) PO SCH (10:00)
[2018-06-05] MEDS ORDERED: CHOLESTYRAMINE/SUCROSE 4 GM PACKET PO SCH (12:00)
[2018-06-05] MEDS ORDERED: EPOETIN ALFA 10,000 UNIT/1 ML VIAL SQ ONE (13:15)
[2018-06-05] MEDS ORDERED: LIDOCAINE HCL 1%, 10 MG/ML (20ML VIAL) ONE (13:45)
[2018-06-05 13:57] VITALS: BP 140/56; PULSE 76; TEMP 98.2
--- NOTE | 2018-06-05 15:06 | PN ---
Progress Note (short form) - Note Progress Note: Renal follow up for CKD stage 5 pt seen and examined at the bedside earlier today pt says that she does not want to start dialysis now and does not want to talk about it at all now no cp, sob making urine Vital Signs Temperature 98.2 F 06/05/18 13:56 Pulse Rate 76 06/05/18 13:56 Respiratory Rate 16 06/05/18 13:56 Blood Pressure 140/56 L 06/05/18 13:56 O2 Sat by Pulse Oximetry (%) 98 06/05/18 10:00 Intake & Output 06/02/18 06/03/18 06/04/18 06/05/18 23:59 23:59 23:59 23:59 Intake Total 1020 1150 1050 50 Balance 1020 1150 1050 50 Weight 57.606 kg NAD awake and alert RRR CTA soft NT/ND no LE edema, clubbing or cyanosis CBC, BMP 06/05/18 05:30 06/05/18 05:30 82 year old woman with hx of CKD stage 5 likely due to diabetic nephropathy, Hypertension, CAD, PVD who presented with weakness, fatigue and anorexia and found to have hypertensive urgency and eGFR< 10. #CKD stage 5 with mild uremic symptoms #Hypertension #Anemia related to CKD vs. blood loss #Metabolic acidosis pt deferring starting dialysis explained to her the risk of CKD progression and uremia she says she does not want to talk about it no emergent indication for [employer] at the present time can be discharged on present meds including sodium bicarbonate Asked her to follow up with me in the office. Quentin Goyal DO
--- NOTE | 2018-06-05 16:04 | PN ---
Progress Note (short form) - Note Progress Note: I saw and spoke with the pt at [facility] this am between 9 and 9.30 am and at that time she decided against permacath placement and against dialysis and she wanted to go home. I continued my hospital rounds and I got to the office around 11 am when I started to receive multiple phone calls (from the pt herself , from the nurse Winifred, as well as from admin. Areli Gilliam) that pt is ready to go and she is complaining that the discharge is not done yet by me and she wants to leave the jo. I did the DC within few minutes (scripts, instructions and summary) and placed DC order before noon. Around 1 pm I was called again by pt's nurse Winfired that pt changed her mind and she wants to stay and have the permacath placed and start dialysis. I spoke with Areli Gilliam and with dr Goyal and decided to let pt go home and think about dialysis since she refused it so many times in the past, and to f/u as outpt within [address] Goyal; the dyalsis is not an emergency and does not need to be done right now. Pt to have close f/u with cardio GI renal and PCP and if she still wants to do dyalisis she could see dr Buck Zuñiga and have the catheter placed over the next few days.
--- NOTE | 2018-06-05 17:05 | EKG ---
Test Reason : Blood Pressure : / mmHG Vent. Rate : 066 BPM Atrial Rate : 066 BPM P-R Int : 174 ms QRS Dur : 066 ms QT Int : 418 ms P-R-T Axes : 034 019 136 degrees QTc Int : 438 ms NORMAL SINUS RHYTHM NONSPECIFIC T WAVE ABNORMALITY ABNORMAL ECG WHEN COMPARED WITH ECG OF 31-MAY-2018 23:28, NO SIGNIFICANT CHANGE WAS FOUND Confirmed by MD ADAMS PENG ([id number]) on 06/05/2018 5:05:08 PM Referred By: Confirmed By:MICHELE ADAMS MD
[2018-06-06 08:06] LABS: HEP.C VIRUS AB <0.1 s/co ratio (0.0-0.9)
== END 2018-06-05 14:30 | disposition home health service (06) | DRG 305 ==
LOC: JER 19:14 → JERBED 22:55 → J2W 06-01 19:24
PROVIDERS: ADMIT Internal Medicine; ATTEND Internal Medicine
DX: I16.0 Hypertensive urgency (principal); I24.8 Other forms of acute ischemic heart disease; E87.2 Acidosis; N17.9 Acute kidney failure, unspecified; N18.5 Chronic kidney disease, stage 5; E78.5 Hyperlipidemia, unspecified; E11.9 Type 2 diabetes mellitus without complications; I10 Essential (primary) hypertension; D64.9 Anemia, unspecified; E11.51 Type 2 diabetes mellitus with diabetic peripheral angiopathy without gangrene; J44.9 Chronic obstructive pulmonary disease, unspecified; J45.909 Unspecified asthma, uncomplicated; K80.20 Calculus of gallbladder without cholecystitis without obstruction; D63.1 Anemia in chronic kidney disease; R63.0 Anorexia; R19.7 Diarrhea, unspecified; Z68.21 Body mass index [BMI] 21.0-21.9, adult; E11.21 Type 2 diabetes mellitus with diabetic nephropathy; D50.0 Iron deficiency anemia secondary to blood loss (chronic); E87.5 Hyperkalemia; R53.1 Weakness; I25.119 Atherosclerotic heart disease of native coronary artery with unspecified angina pectoris; I13.11 Hypertensive heart and chronic kidney disease without heart failure, with stage 5 chronic kidney disease, or end stage renal disease; E11.22 Type 2 diabetes mellitus with diabetic chronic kidney disease; Z99.2 Dependence on renal dialysis; Z88.0 Allergy status to penicillin; Z91.14 Patient's other noncompliance with medication regimen; Z89.421 Acquired absence of other right toe(s)
CPT/HCPCS: 36415; 71045-TC-FY; 80048; 80053; 80074; 81003; 81015; 82550; 82553; 82728; 82962; 83540; 83550; 83735; 84100; 84484; 85025; 87086; 93005; 93010; 93306-TC; 99285-25; J0885; J1644; J1756

== ENCOUNTER 2018-07-14 11:37 | Inpatient (IN) | payer OTHER ==
--- NOTE | 2018-07-14 12:48 | PDOC ---
History of Present Illness - General Chief Complaint: Diarrhea Stated Complaint: DIRHHEA Time Seen by Provider: 07/14/18 12:47 History Source: Patient Exam Limitations: No Limitations - History of Present Illness Initial Comments: Pt is a 82 yo F, with PMH of cholecystectomy/ERCP, HTN, NIDDM, HLD, chronic renal failure (pt refusing dialysis), chronic diarrhea, and anemia. The pt has current complaints of diarrhea, which has been occurring over the past 2 years, but has worsened over the past few days, associated with nausea and weakness. The pt states her diarrhea started after an ERCP 2 years ago, but her cholestyramine has not helped over the past 3 days. There are no current exacerbating or alleviating factors to her diarrhea. Pt states her stools are always dark due to iron pills, and has noticed no blood in the stool. She also admits to decreased PO food intake and nausea, which improved with her home zofran. The pt did not take any of her medications this AM due to nausea. Pt denies any fevers/chills, headache, vision changes, chest pain, palpitations, SOB, vomiting, abdominal pain, urinary symptoms, constipation, or joint/leg swelling. 07/14/18 17:06 Pt smokes 1 and 1/2 ppd; she denies alcohol or drug use. Pt denies any recent travel or sick contacts. 07/14/18 17:09 Past History - Travel Traveled outside of the country in the last 30 days: No Close contact w/someone who was outside of country & ill: No - Past Medical History Allergies/Adverse Reactions: Allergies Allergy/AdvReac Type Severity Reaction Status Date / Time iodine Allergy Rash Verified 07/14/18 12:09 penicillin V Allergy Verified 07/14/18 12:09 shellfish derived Allergy Rash Verified 07/14/18 12:09 vancomycin Allergy Verified 07/14/18 12:09 azithromycin AdvReac Verified 07/14/18 12:09 Home Medications: Ambulatory Orders Ferrous Sulfate 65 mg PO BID 08/29/16 Nifedipine ER [Procardia XL -] 60 mg PO BID 08/29/16 Aspirin Coated [Ecotrin -] 81 mg PO DAILY tablet.ec 09/15/16 Glipizide 5 mg PO DAILY 06/26/17 Calcitriol [Calcitriol -] 0.25 mcg PO DAILY capsule 12/29/17 Cholestyramine/Aspartame [Questran Light Packet -] 4 gm PO BID packet 12/29/17 Ferrous Sulfate [Feosol] 325 mg PO BID ud 12/29/17 Metoprolol Tartrate [Lopressor -] 100 mg PO BID tablet 12/29/17 Alprazolam [Xanax] 0.25 mg PO Q8H PRN 05/05/18 Amitriptyline HCl [Elavil -] 50 mg PO HS 05/05/18 Atorvastatin Ca [Lipitor] 10 mg PO HS 05/05/18 Furosemide [Lasix] 20 mg PO DAILY 05/05/18 Isosorbide Mononitrate [Imdur -] 30 mg PO DAILY 05/05/18 Ondansetron HCl [Zofran] 8 mg PO TID PRN 05/05/18 Acetaminophen [Tylenol .Regular Strength -] 650 mg PO Q6H PRN tablet 06/05/18 Calcium Acetate [Calphron] 667 mg PO BID 07/14/18 Docusate Sodium [Colace] 100 mg PO ASDIR PRN 07/14/18 Glipizide [Glipizide ER] 2.5 mg PO HS 07/14/18 Sodium Bicarbonate - 650 mg PO TID 07/14/18 Anemia: Yes Asthma: No Cancer: No Cardiac Disorders: Yes (PAD) CVA: No COPD: No CHF: No DVT: No Dementia: No Diabetes: Yes GI Disorders: No Disorders: No HTN: Yes Hypercholesterolemia: Yes Liver Disease: No Seizures: No Thyroid Disease: No - Surgical History Abdominal Surgery: No Appendectomy: No Cardiac Surgery: Yes (FEMORAL BYPASS) Cholecystectomy: Yes Lung Surgery: No Neurologic Surgery: No Orthopedic Surgery: Yes (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) - Family Disease History Family Disease History: CA: Father (lung), Brother, Sister - Immunization History Immunization Up to Date: Yes - Suicide/Smoking/Psychosocial Hx Smoking Status: Yes Smoking History: Never smoked Have you smoked in the past 12 months: No Number of Cigarettes Smoked Daily: 10 If you are a former smoker, when did you quit?: 08/10/2012 Cigars Per Day: 30 Information on smoking cessation initiated: No 'Breaking Loose' booklet given: 12/25/17 Hx Alcohol Use: No Drug/Substance Use Hx: No Substance Use Type: None Hx Substance Use Treatment: No Review of Systems - Review of Systems Able to Perform ROS?: Yes Is the patient limited Latvian proficient: No Constitutional: Yes: Loss of Appetite, Weakness, Weight Stable. No: Chills, Diaphoresis, Fever, Malaise HEENTM: No: Blurred Vision, Double Vision, Nose Congestion, Hearing Loss, Throat Pain, Throat Swelling, Difficulty Swallowing Respiratory: No: Cough, Orthopnea, Shortness of Breath Cardiac (ROS): No: Chest Pain, Edema, Irregular Heart Rate, Lightheadedness, Palpitations, Syncope, Chest Tightness ABD/GI: Yes: Diarrhea, Nausea, Poor Appetite, Other (dark stools with iron pills ). No: Abdominal Distended, Blood Streaked Bowels, Constipated, Poor Fluid Intake, Vomiting, Abdominal cramping, Tarry Stools : No: Burning, Dysuria, Frequency, Flank Pain, Hematuria, Incontinence, Pain, Urgency Musculoskeletal: No: Back Pain, Joint Pain Integumentary: No: Bruising, Rash Neurological: Yes: Weakness. No: Headache, Unsteady Gait, Ataxia, Dizziness Psychiatric: No: Sleep Pattern Change, Change in Appetite Endocrine: No: Increased Urine, Change in Weight Hematologic/Lymphatic: No: Anemia, Blood Clots, Easy Bleeding, Easy Bruising All Other Systems: Reviewed and Negative *Physical Exam - Vital Signs Last Vital Signs Temp Pulse Resp BP Pulse Ox 97.2 F L 92 H 16 211/90 H 100 07/14/18 11:40 07/14/18 11:40 07/14/18 11:40 07/14/18 11:40 07/14/18 11:40 - Physical Exam General Appearance: Yes: Nourished, Appropriately Dressed. No: Apparent Distress HEENT: positive: EOMI, CHRISTINA, Normal ENT Inspection, Normal Voice, Symmetrical, Pharynx Normal, Hearing Grossly Normal. negative: Scleral Icterus (R), Scleral Icterus (L), Pharyngeal Erythema, Tonsillar Exudate, Tonsillar Erythema, Rhinorrhea Neck: positive: Trachea midline, Normal Thyroid, Supple. negative: Tender, Rigid, Lymphadenopathy (R), Lymphadenopathy (L) Respiratory/Chest: positive: Lungs Clear, Normal Breath Sounds. negative: Chest Tender, Respiratory Distress, Accessory Muscle Use, Crackles, Wheezing Cardiovascular: positive: Regular Rhythm, Regular Rate, S1, S2. negative: Edema , JVD, Murmur Vascular Pulses: Carotid (R): 4+, Carotid (L): 4+ Gastrointestinal/Abdominal: positive: Normal Bowel Sounds, Flat, Soft. negative : Tender, Organomegaly, Pulsatile Mass, Distended, Guarding, Rebound Rectal Exam: positive: deferred Lymphatic: negative: Adenopathy, Tenderness Musculoskeletal: positive: Normal Inspection. negative: CVA Tenderness Extremity: positive: Normal Capillary Refill, Normal Inspection, Normal Range of Motion, Pelvis Stable. negative: Tender, Pedal Edema, Swelling Integumentary: positive: Normal Color, Dry, Warm. 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 negative: EOM Palsy, Facial Droop , Numbness ED Treatment Course - LABORATORY CBC & Chemistry Diagram: 07/14/18 13:50 07/14/18 13:50 Medical Decision Making - Medical Decision Making Pt was seen at bedside, also will be seen by attending Dr. Dominique. Pt presenting with complaints of diarrhea, which has been occurring over the past 2 years, but has worsened over the past few days, associated with nausea and weakness. The pt states her diarrhea started after an ERCP 2 years ago, but her cholestyramine has not helped over the past 3 days. Pt states her stools are always dark due to iron pills, and has noticed no blood in the stool. She also admits to nausea, which improved with her home zofran. The pt did not take any of her medications this AM due to nausea. Pt denies any fevers/chills, headache , vision changes, chest pain, palpitations, SOB, vomiting, abdominal pain, urinary symptoms, constipation, or joint/leg swelling. Pt hypertensive 211/90 on presentation, HR 92, afebrile. PE showed dry mucous membranes, slightly decreased skin turgor. Clear heart and lung sounds. No abdominal or CVA tenderness. No b/l pedal edema. Considering acute dehydration vs bacterial/viral enteritis vs anemia due to chronic Fe-deficiency/blood loss. Ordered work-up including CBC, CMP, lipase, lactic acid, ECG. Provided home BP medications (100 mg metoprolol and 60 mg procardia XL) and 500 mL IV NS for improvement of BP control and dehydration. Will continue to reassess pt and monitor for symptomatic improvement. 07/14/18 13:26 ECG showed NSR, HR 74, AZ 176, QRS 90, QTc 448; no significant ST segment changes; no chest pain at this time. CBC: WNL (H/H above pt baseline, maybe due to mild dehydration -- no need for transfusion at this time). CMP: BUN/Cr 55/5.3, within pt baseline -- providing fluids; Mg 1.9, Lipase 1015 (<3x upper limit, pt has had lipase elevations to this point in the past). Lactic 0.6 Coags WNL Will continue to repeat pt BP after interventions and supply additional fluid boluses as tolerated. No need for imaging at this time, as pt does not complain of any bleeding or abdominal pain. 07/14/18 14:56 Provided 60 mg PO Imdur. BP has improved to 193/65 Pt states she is feeling to weak to go home, despite tolerating PO intake and being able to ambulate. Pt has become argumentative with staff and has attempted to get out of bed on her own, nearly pulling out her IV. Nursing staff and security aware. Paging Dr. Maria Luz Barahona to discuss visit and determine disposition, as pt is medically stable to go home. 07/14/18 16:02 Dr. Barahona willing to accept pt for inpatient admission, so she can receive help at home and attempt to convince her for dialysis. Admission order placed. BPs improving to 170s/90s -- providing additional 500 mL IV NS. Pt stable and tolerating PO intake at this time. Will continue to monitor BP and pt status. 07/14/18 16:46 Pt admitted to bed upstairs. Pt was stable in the department and lying comfortably. BP was stables in ~160s/90s. 07/14/18 23:28 *DC/Admit/Observation/Transfer Diagnosis at time of Disposition: Weakness Chronic renal failure Qualifiers: Chronic kidney disease stage: unspecified stage Qualified Code(s): N18.9 - Chronic kidney disease, unspecified Diarrhea Qualifiers: Diarrhea type: unspecified type Qualified Code(s): R19.7 - Diarrhea, unspecified - Discharge Dispostion Condition at time of disposition: Stable Decision to Admit order: Yes - Referrals - Patient Instructions - Post Discharge Activity
[2018-07-14] MEDS ORDERED: SODIUM CHLORIDE 500 ML IV STA ×2 (13:24→16:47)
[2018-07-14] MEDS ORDERED: METOPROLOL TARTRATE 50 MG TABLET (FP) PO ONE (13:24)
[2018-07-14] MEDS ORDERED: NIFEdipine E.R 60 MG TABLET (UD) PO ONE (13:45)
[2018-07-14] MEDS ORDERED: METOPROLOL TARTRATE 50 MG TABLET (FP) ONE (13:49)
[2018-07-14] MEDS ORDERED: NIFEdipine E.R. 30 MG TABLET (FP) ONE (13:49)
[2018-07-14 14:01] LABS: BASO % 0.8 % (0-2.0); EOS % 3.2 % (0-4.5); HEMATOCRIT 31.4 % (32.4-45.2); LYMPH % 17.9 % (8-40); MCH 32.6 pg (25.7-33.7); MCHC 34.9 g/dl (32.0-36.0); MEAN CELL VOLUME 93.3 fl (80-96); MEAN PLT VOLUME 8.3 fl (7.5-11.1); MONO % 6.3 % (3.8-10.2); NEUT % 71.8 % (42.8-82.8); PLATELET COUNT 354 K/MM3 (134-434); RBC 3.36 M/mm3 (3.60-5.2); WHITE BLOOD COUNT 6.7 K/mm3 (4.0-10.0)
[2018-07-14 14:25] LABS: ALBUMIN 3.1 g/dl (3.4-5.0); ALK PHOS 79 U/L (45-117); ANION GAP 9 MMOL/L (8-16); BILIRUBIN,TOTAL 0.2 mg/dL (0.2-1); BLOOD UREA NITROGEN 55 mg/dL (7-18); CALCIUM 7.9 mg/dL (8.5-10.1); CHLORIDE 117 mmol/L (98-107); CO2 14 mmol/L (21-32); CREATININE 5.3 mg/dL (0.55-1.3); GLUCOSE,RANDOM 93 mg/dL (74-106); LIPASE 1015 U/L (73-393); MAGNESIUM 1.9 mg/dL (1.8-2.4); POTASSIUM 5.2 mmol/L (3.5-5.1); SGOT/AST 21 U/L (15-37); SGPT/ALT 27 U/L (13-61); SODIUM 140 mmol/L (136-145); TOT PROT 6.7 g/dl (6.4-8.2)
[2018-07-14 14:36] LABS: INR 0.93 (0.83-1.09)
--- NOTE | 2018-07-14 15:02 | PDOC ---
Attending Attestation - Resident Resident Name: Geovanna Ravi - ED Attending Attestation I have performed the following: I have examined & evaluated the patient, The case was reviewed & discussed with the resident, I agree w/resident's findings & plan, Exceptions are as noted - HPI HPI: 07/14/18 14:57 The patient is an 82-year-old female with a past medical history significant for PAD, NIDDM, HTN, HLD, chronic diarrhea, and anemia presents to the emergency department with diarrhea. Pt reports chronic intermittent diarrhea since 2016. She states it is associated with her cholecystectomy and is usually able to control the diarrhea with her cholestyramine. The patient reports current symptoms started 3 days ago. Pt states that today she had 5 episodes of watery brown diarrhea and was concerned that she may be anemic, though she denies BRBPR or dark stools. Denies abdominal pain. Denies CP/SOB/palpitations/ lightheadedness. Allergies: azithromycin, vancomycin, shellfish derived, penicillin V, iodine Social history: Former smoker, no alcohol or recreational drug use reported. Surgical history: laparoscopic cholecystectomy, lavage, femoral bypass, R. 1st and 2nd toe amputations. PCP: Angela Esparza - Physicial Exam PE: 07/14/18 15:00 GENERAL: Awake, alert, and fully oriented, in no acute distress. HEAD: No signs of trauma EYES: PERRLA, EOMI, sclera anicteric, conjunctiva clear ENT: Auricles normal inspection, hearing grossly normal, nares patent, oropharynx clear without exudates. Moist mucosa NECK: Nontender, no stepoffs, Normal ROM, supple, no lymphadenopathy, JVD, or masses LUNGS: Breath sounds equal, clear to auscultation bilaterally. No wheezes, and no crackles HEART: Regular rate and rhythm, normal S1 and S2, no murmurs, rubs or gallops ABDOMEN: Soft, nontender, normoactive bowel sounds. No guarding, no rebound. No masses EXTREMITIES: Normal range of motion, no edema. No clubbing or cyanosis. No cords, erythema, or tenderness NEUROLOGICAL: Cranial nerves II through XII intact. 5/5 strength and sensation in all extremities, Normal speech, normal gait, normal cerebellar function SKIN: Warm, Dry, normal turgor, no rashes or lesions noted. - Medical Decision Making 07/14/18 15:01 82 F with acute on chronic diarrhea. Pt well appearing with benign abdomen. No tenderness whatsoever on exam. Pt with elevated BP in ED, likely 2/2 missing her home dose of BP meds today. Pt denies CP/SOB/PARR. - Labs - IVF - Home BP meds 07/14/18 15:40 Labs unremarkable Cr 5.3 is at pt's baseline Home BP meds given, will recheck vitals 07/14/18 16:35 BP improving with home meds Pt reports that she feels too ill to go home at this time. Does not feel safe being discharged. Case discussed with Dr. esparza, who accepts pt for admission.
[2018-07-14] MEDS ORDERED: ISOSORBIDE MONONITRATE 30 MG TAB.SR.24H (FP) PO STA (15:24)
[2018-07-14] MEDS ORDERED: ISOSORBIDE MONONITRATE 60 MG TAB.SR.24H (FP) PO ONE (15:29)
[2018-07-14] MEDS ORDERED: CHOLESTYRAMINE/ASPARTAME 4 GM PACKET PO STA (18:10)
[2018-07-14] MEDS ORDERED: ACETAMINOPHEN 325 MG TABLET (FP) PO PRN (20:40)
[2018-07-14] MEDS ORDERED: ONDANSETRON 8 MG TABLET (FP) PO PRN (20:40)
[2018-07-14] MEDS ORDERED: DOCUSATE SODIUM 100 MG CAPSULE (FP) PO PRN (20:40)
[2018-07-14] MEDS: glipiZIDE-XL 2.5 MG TAB.ER.24 PO SCH (22:04)
[2018-07-14] MEDS ORDERED: ONDANSETRON 4 MG TABLET PO PRN (22:45)
[2018-07-14] MEDS: CHOLESTYRAMINE/ASPARTAME 4 GM PACKET PO SCH ×2 (23:11→23:13)
[2018-07-14] MEDS: SODIUM BICARBONATE 650 MG TABLET PO SCH (23:11)
[2018-07-14] MEDS: METOPROLOL TARTRATE 50 MG TABLET (FP) PO SCH (23:11)
[2018-07-14] MEDS: ATORVASTATIN CA 10 MG TABLET (FP) PO SCH (23:11)
[2018-07-14] MEDS: NIFEdipine E.R 60 MG TABLET (UD) PO SCH (23:11)
[2018-07-14] MEDS: AMITRIPTYLINE HCL 25 MG TABLET (FP) PO SCH (23:12)
[2018-07-15] MEDS ORDERED: PT OWN MED DRAWER 7, Y5N ONE ×2 (05:53→09:43)
[2018-07-15] MEDS: SODIUM BICARBONATE 650 MG TABLET PO SCH ×3 (05:58→21:12)
[2018-07-15] MEDS: glipiZIDE 5 MG TABLET (FP) PO SCH (05:59)
[2018-07-15] MEDS: FERROUS SO4 325 MG TABLET (FP) PO SCH ×2 (05:59→13:56)
--- NOTE | 2018-07-15 06:46 | HP ---
Admitting History and Physical - Primary Care Physician PCP: Angela Barahona - Admission Chief Complaint: diarrhea, weakness, dizziness, failure to thrive History of Present Illness: t is a 82 yo F, with PMH of cholecystectomy/ERCP, HTN, NIDDM, HLD, chronic renal failure (pt refusing dialysis), chronic diarrhea, and anemia. The pt has current complaints of diarrhea, which has been occurring over the past 2 years, but has worsened over the past few days, associated with nausea, dizziness, decreased po intake and general weakness. Lost weight in the last few weeks also (per pt close to 10 lbs)./ Pt states her stools are always dark due to iron pills, and has noticed no blood in the stool. She also admits to decreased PO food intake and nausea, which partially improved with her home zofran. Pt denies any fevers/chills, headache, vision changes, chest pain, palpitations, SOB, vomiting, abdominal pain, urinary symptoms, constipation, or joint/leg swelling. Pt smokes 1 and 1/2 ppd; she denies alcohol or drug use. History Source: Patient Limitations to Obtaining History: No Limitations - Past Medical History Cardiovascular: Yes: HTN, Hyperlipdemia, Murmur, Other (PAD) Pulmonary: Yes: Asthma, COPD Hepatobiliary: Yes: Cholelithiasis, Choledocholithiasis Renal/: Yes: Renal Inusuff Heme/Onc: Yes: Anemia Infectious Disease: Yes: Other (history of osteomyelitis in the past) Endocrine: Yes: Diabetes Mellitus - Past Surgical History Past Surgical History: Yes: Amputation (1-st R toe amputation), Bypass (Right fem pop bypass) - Smoking History Smoking history: Never smoked Have you smoked in the past 12 months: No Aproximately how many cigarettes per day: 10 If you are a former smoker, when did you quit?: 08/10/2012 - Alcohol/Substance Use Hx Alcohol Use: No History of Substance Use: reports: None - Social History Usual Living Arrangement: Yes: Alone ADL: Independent 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, 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, 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 Travel: No Home Medications - Allergies Allergies/Adverse Reactions: Allergies Allergy/AdvReac Type Severity Reaction Status Date / Time iodine Allergy Rash Verified 07/14/18 12:09 penicillin V Allergy Verified 07/14/18 12:09 shellfish derived Allergy Rash Verified 07/14/18 12:09 vancomycin Allergy Verified 07/14/18 12:09 azithromycin AdvReac Verified 07/14/18 12:09 - Home Medications Home Medications: Ambulatory Orders Ferrous Sulfate 65 mg PO BID 08/29/16 Nifedipine ER [Procardia XL -] 60 mg PO BID 08/29/16 Aspirin Coated [Ecotrin -] 81 mg PO DAILY tablet.ec 09/15/16 Glipizide 5 mg PO DAILY 06/26/17 Calcitriol [Calcitriol -] 0.25 mcg PO DAILY capsule 12/29/17 Cholestyramine/Aspartame [Questran Light Packet -] 4 gm PO BID packet 12/29/17 Ferrous Sulfate [Feosol] 325 mg PO BID ud 12/29/17 Metoprolol Tartrate [Lopressor -] 100 mg PO BID tablet 12/29/17 Alprazolam [Xanax] 0.25 mg PO BID 05/05/18 Amitriptyline HCl [Elavil -] 50 mg PO HS 05/05/18 Atorvastatin Ca [Lipitor] 10 mg PO HS 05/05/18 Furosemide [Lasix] 20 mg PO DAILY 05/05/18 Isosorbide Mononitrate [Imdur -] 30 mg PO DAILY 05/05/18 Ondansetron HCl [Zofran] 8 mg PO TID PRN 05/05/18 Acetaminophen [Tylenol .Regular Strength -] 650 mg PO Q6H PRN tablet 06/05/18 Calcium Acetate [Calphron] 667 mg PO BID 07/14/18 Docusate Sodium [Colace] 100 mg PO ASDIR PRN 07/14/18 Glipizide [Glipizide ER] 2.5 mg PO HS 07/14/18 Sodium Bicarbonate - 650 mg PO TID 07/14/18 Family Disease History - Family Disease History Family Disease History: CA: Father (lung ca), Mother (, lung ca), Sister (lung ca) Review of Systems - Review of Systems Constitutional: reports: Loss of Appetite, Unintentional Wgt. Loss. denies: Chills, Fever, Lethargy Eyes: denies: Blind Spots, Blurred Vision, Double Vision, Eye Pain HENT: denies: Difficult Swallowing, Ear Pain, Epistaxis Cardiovascular: denies: Chest Pain, Palpitations, Shortness of Breath Respiratory: reports: SOB, SOB on Exertion. denies: Cough, Hemoptysis, Orthopnea, PND, Wheezing Gastrointestinal: reports: Diarrhea, Nausea. denies: Abdominal Pain, Bloating, Constipation, Rectal Bleeding, Vomiting, Vomiting Blood Genitourinary: denies: Discharge, Dysuria, Flank Pain Musculoskeletal: denies: Back Pain, Joint Swelling Neurological: reports: Dizziness, Unsteady Gait, Weakness (general). denies: Change in LOC, Confusion, Headache, Incoordination, Syncope, Tremors Endocrine: reports: Unexplained Weight Loss Hematology/Lymphatic: denies: Easily Bruised, Excessive Bleeding Psychiatric: reports: Anxiety (chronic). denies: Altered Sleep Pattern, Depression, Suicidal Physical Examination Vital Signs: Vital Signs Temperature 98.3 F 07/15/18 06:14 Pulse Rate 65 07/15/18 06:14 Respiratory Rate 20 07/15/18 06:14 Blood Pressure 139/62 07/15/18 06:14 O2 Sat by Pulse Oximetry (%) 96 07/14/18 22:40 Constitutional: Yes: No Distress, Calm Eyes: Yes: Conjunctiva Clear HENT: Yes: Atraumatic Neck: Yes: Supple Cardiovascular: Yes: Regular Rate and Rhythm Respiratory: Yes: CTA Bilaterally Gastrointestinal: Yes: Soft. No: Distention Renal/: No: CVA Tenderness - Left, CVA Tenderness - Right, Hematuria Musculoskeletal: No: Joint Stiffness, Joint Swelling Extremities: No: Cold, Cool, Cyanosis Edema: No Integumentary: No: Rash, Venous Stasis Changes Neurological: Yes: WNL, Alert, Oriented ...Motor Strength: WNL Psychiatric: Yes: WNL, Alert, Oriented. No: Agitated, Suicidal Ideation Labs: CBC, BMP 07/14/18 13:50 07/14/18 13:50 Imaging - Results Chest X-ray: Report Reviewed Other: Report Reviewed Assessment/Plan t is a 82 yo F, with PMH of cholecystectomy/ERCP, HTN, NIDDM, HLD, chronic renal failure (pt refusing dialysis), chronic diarrhea, and anemia. The pt has current complaints of diarrhea, associated with nausea, decreased po intake, weight loss and general weakness. baseline Hg around 8-9 now 11, creat over 5 c/w dehydration admit; IVF GI and renal eval stop smoking advised again; NRT path ordered; check chest CT - pt aware she should have it q1 year for early lung CA detection given her long h/o smoking but she refused it many times in the past d/w pt again about dialysis to address it with renal dr; she is aware she will or have severe complications from worsening renal failure without dialysis she is not suicidal she is able to fully understand risks consequences and alternatives but still does not want dialysis - she is aware it is a time sensitive situation falls decubs DVT pfx dw pt and staff
[2018-07-15] MEDS ORDERED: SODIUM CHLORIDE 1,000 ML IV SCH (07:00)
[2018-07-15] MEDS ORDERED: CALCIUM ACETATE 667 MG CAPSULE (FP) PO SCH (08:00)
--- NOTE | 2018-07-15 09:05 | CONSULT ---
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 Pt reports that diarrhea has been on-going since 2016 but now she feels weaker and that why she came to the hopsital. Reports she was not taking her sodium bicarbonate at home. No flank pain, Cp, sob, abd pain, vomiting. + Nausea taking zofran. No Metallic taste in the mouth. No muscle weakness. PMhx: as above Allergies: as listed in EMR family Hx: NC Social Hx: No T/A/D ROS: as per HPI Home Medications Medication Instructions Recorded Ferrous Sulfate 65 mg PO BID 08/29/16 Nifedipine ER [Procardia XL -] 60 mg PO BID 08/29/16 Aspirin Coated [Ecotrin -] 81 mg PO DAILY tablet.ec 09/15/16 Glipizide 5 mg PO DAILY 06/26/17 Calcitriol [Calcitriol -] 0.25 mcg PO DAILY capsule 12/29/17 Cholestyramine/Aspartame [Questran 4 gm PO BID packet 12/29/17 Light Packet -] Ferrous Sulfate [Feosol] 325 mg PO BID ud 12/29/17 Metoprolol Tartrate [Lopressor -] 100 mg PO BID tablet 12/29/17 Alprazolam [Xanax] 0.25 mg PO BID 05/05/18 Amitriptyline HCl [Elavil -] 50 mg PO HS 05/05/18 Atorvastatin Ca [Lipitor] 10 mg PO HS 05/05/18 Furosemide [Lasix] 20 mg PO DAILY 05/05/18 Isosorbide Mononitrate [Imdur -] 30 mg PO DAILY 05/05/18 Ondansetron HCl [Zofran] 8 mg PO TID PRN 05/05/18 Acetaminophen [Tylenol .Regular 650 mg PO Q6H PRN tablet 06/05/18 Strength -] Calcium Acetate [Calphron] 667 mg PO BID 07/14/18 Docusate Sodium [Colace] 100 mg PO ASDIR PRN 07/14/18 Glipizide [Glipizide ER] 2.5 mg PO HS 07/14/18 Sodium Bicarbonate - 650 mg PO TID 07/14/18 Vital Signs Temperature 98.3 F 07/15/18 06:14 Pulse Rate 65 07/15/18 06:14 Respiratory Rate 20 07/15/18 06:14 Blood Pressure 139/62 07/15/18 06:14 O2 Sat by Pulse Oximetry (%) 96 07/14/18 22:40 Intake & Output 07/12/18 07/13/18 07/14/18 07/15/18 23:59 23:59 23:59 23:59 Intake Total 240 240 Balance 240 240 Weight 52.934 kg 50.369 kg NAD awake and alert Neck supple Dry MM RRR, no Rub CTA soft NT/ND no LE edmea, cyanosis or clubbing CBC, BMP 07/14/18 13:50 07/14/18 13:50 Current Medications Acetaminophen (Tylenol -) 650 mg PO Q6H PRN PRN Reason: PAIN Alprazolam (Xanax -) 0.25 mg PO Q8H PRN PRN Reason: ANXIETY Amitriptyline HCl (Elavil -) 50 mg PO HS [facility] Last Admin: 07/14/18 23:12 Dose: 50 mg Aspirin (Ecotrin -) 81 mg PO DAILY [facility] Atorvastatin Calcium (Lipitor -) 10 mg PO HS [facility] Last Admin: 07/14/18 23:11 Dose: 10 mg Calcitriol (Rocaltrol -) 0.25 mcg PO DAILY [facility] Calcium Acetate (Phoslo -) 667 mg PO BIDWM [facility] Cholestyramine Resin (Questran Light Packet -) 4 gm PO BID [facility] Last Admin: 07/14/18 23:13 Dose: Not Given Docusate Sodium (Colace -) 100 mg PO HS PRN PRN Reason: CONSTIPATION Ferrous Sulfate (Feosol -) 325 mg PO BID@0600,1400 [facility] Last Admin: 07/15/18 05:59 Dose: 325 mg Furosemide (Lasix -) 20 mg PO DAILY [facility] Glipizide (Glucotrol -) 5 mg PO DAILY@0700 [facility] Last Admin: 07/15/18 05:59 Dose: Not Given Glipizide (Glucotrol Xl -) 2.5 mg PO DAILY@1630 [facility] Last Admin: 07/14/18 22:04 Dose: Not Given Sodium Chloride (Normal Saline -) 1,000 mls @ 75 mls/hr IV ASDIR [facility] Isosorbide Mononitrate (Imdur -) 30 mg PO DAILY [facility] Metoprolol Tartrate (Lopressor -) 100 mg PO BID [facility] Last Admin: 07/14/18 23:11 Dose: 100 mg Nifedipine (Procardia Xl -) 60 mg PO BID [facility] Last Admin: 07/14/18 23:11 Dose: 60 mg Ondansetron HCl (Zofran -) 8 mg PO TID PRN PRN Reason: NAUSEA Sodium Bicarbonate (Sodium Bicarbonate -) 650 mg PO TID [facility] Last Admin: 07/15/18 05:58 Dose: 650 mg 82 year old woman with hx of 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 Pt expressed understanding but says she is not ready to do dialysis and wants to deal with her GI issues at this time. Continue moderate IVF hydration with bicarb will plan to resume oral bicarb when off IVF GI follow up for diarrhea Start low potassium diet avoid JEANETTE/ARB given low eGFR and hyperkalemia continue current antihypertensives meds check serum phos, ca daily Thank you Quentin Goyal DO
[2018-07-15] MEDS: ASPIRIN COATED 81 MG TABLET.EC PO SCH (09:46)
[2018-07-15] MEDS: NIFEdipine E.R 60 MG TABLET (UD) PO SCH ×2 (09:46→21:12)
[2018-07-15] MEDS: METOPROLOL TARTRATE 50 MG TABLET (FP) PO SCH ×2 (09:46→21:12)
[2018-07-15] MEDS: ISOSORBIDE MONONITRATE 30 MG TAB.SR.24H (FP) PO SCH (09:46)
[2018-07-15] MEDS: CHOLESTYRAMINE/ASPARTAME 4 GM PACKET PO SCH ×2 (09:46→21:12)
[2018-07-15] MEDS: CALCITRIOL 0.25 MCG CAPSULE (FP) PO SCH (09:46)
[2018-07-15] MEDS ORDERED: FUROSEMIDE 20 MG TABLET (FP) PO SCH (10:00)
[2018-07-15 11:01] LABS: URINE APPEARANCE CLEAR; URINE BILIRUBIN NEGATIVE (<2.0 mg/dL); URINE COLOR STRAW; URINE GLUCOSE (UA) 1+ (NEGATIVE); URINE KETONE NEGATIVE (NEGATIVE); URINE LEUK ESTERASE NEGATIVE (NEGATIVE); URINE NITRITE NEGATIVE (NEGATIVE); URINE PROTEIN 3+ (NEGATIVE); URINE UROBILINOGEN NEGATIVE mg/dL (0.2-1.0)
[2018-07-15 12:21] LABS: EPI CELLS RARE /HPF (FEW); URINE HYALINE CAST 1 /lpf; URINE MUCUS RARE
--- NOTE | 2018-07-15 13:43 | EKG ---
Test Reason : Blood Pressure : / mmHG Vent. Rate : 074 BPM Atrial Rate : 074 BPM P-R Int : 176 ms QRS Dur : 090 ms QT Int : 404 ms P-R-T Axes : 036 031 027 degrees QTc Int : 448 ms NORMAL SINUS RHYTHM NONSPECIFIC T WAVE ABNORMALITY ABNORMAL ECG WHEN COMPARED WITH ECG OF 01-JUN-2018 01:28, NO SIGNIFICANT CHANGE WAS FOUND Confirmed by ARTURO BANKS MD ([id number]) on 07/15/2018 1:42:53 PM Referred By: Confirmed By:ARTURO BANKS MD
[2018-07-15] MEDS: SODIUM BICARBONATE 8.4% - 75 MEQ in DEXTROSE 5%-WATER - 1,000 ML IV SCH (14:35)
[2018-07-15] MEDS: glipiZIDE-XL 2.5 MG TAB.ER.24 PO SCH (17:21)
--- NOTE | 2018-07-15 18:30 | CONS ---
GASTROENTEROLOGY CONSULTATION DATE OF CONSULTATION: DATE OF DICTATION: 07/15/2018 HISTORY OF PRESENT ILLNESS: The patient is an 82-year-old female with a past medical history of cholecystectomy, ERCP, hypertension, noninsulin dependent diabetes, hyperlipidemia, chronic renal failure, refusing dialysis, chronic diarrhea which started in 2016, as per the patient, after having her gallbladder removed and an ERCP. She also has a history of anemia. She states her symptoms of diarrhea have worsened over the past few days and have been associated with nausea and decreased p.o. intake as well as weakness. States she lost about 10. She denies any mucus in the stool, antibiotic use, fevers, chills. Stools are dark secondary to iron supplementation which is not new. She denies any hematochezia or hematemesis. She has not had a recent endoscopic examination. PAST MEDICAL AND SURGICAL HISTORY: As listed in the HPI. In addition to past surgical history, amputation of the right 1st toe and femoral/popliteal bypass. ALLERGIES: IODINE, PENICILLIN, SHELLFISH, VANCOMYCIN, AZITHROMYCIN. SOCIAL HISTORY: She smokes approximately 1/2 pack per day. Does not drink alcohol, no drug abuse. FAMILY HISTORY: Not contributory. REVIEW OF SYSTEMS: Negative except for pertinent positives in the HPI. HOME MEDICATIONS: Reviewed and include: Iron, Procardia, Ecotrin, glipizide, calcitriol, cholestyramine, ferrous sulfate, Lopressor, Xanax, Elavil, Lipitor, Lasix, Imdur, Zofran, Tylenol, Colace and sodium bicarbonate. PHYSICAL EXAMINATION: Vital Signs: Temperature 98, pulse 62, respiratory rate 12, blood pressure 128/ 64, pulse oximetry 96% on room air. General: No acute distress. HEENT: Anicteric sclerae. Cardiovascular: S1, S2. Regular rate and rhythm. Lungs: Bilaterally clear to auscultation. Abdomen: Soft, nontender. Extremities: No edema. LABORATORY: White blood cell count 6.7, hemoglobin 11, hematocrit 34. MCV 93. Platelet count 354. INR 0.93. Sodium 140, potassium 5.2, BUN of 55, creatinine 5.3. Total bilirubin 0.28. AST 21, ALT 27, alkaline phosphatase 79. Lipase 1000. Urine 3+ protein and 1+ glucose. Urine culture still pending. She has no abdominal imaging on this hospitalization. She did have a CT of the chest which revealed mild chronic lung disease without evidence of a mass or acute pathology. IMPRESSION: Acute on chronic diarrhea. Will need to exclude an infectious etiology. Her underlying chronic diarrhea is secondary to her post-cholecystectomy state. RECOMMENDATIONS: Low reside, lactose-free diet. Will start her on cholestyramine b.i.d. dosing. In addition, stool C difficile PCR, stool culture, ova and parasite and leukocyte. This patient will be followed by GI service. DO BENNIE CARVAJAL/[id number] MTDD
[2018-07-15] MEDS: ALPRAZolam 0.25 MG TABLET PO PRN (20:05)
[2018-07-15] MEDS: HEPARIN NA (PORCINE) 5,000 UNITS/ML 1ML VIAL SQ SCH (21:11)
[2018-07-15] MEDS: ATORVASTATIN CA 10 MG TABLET (FP) PO SCH (21:12)
[2018-07-15] MEDS: AMITRIPTYLINE HCL 25 MG TABLET (FP) PO SCH (21:12)
[2018-07-16] MEDS: SODIUM BICARBONATE 8.4% - 75 MEQ in DEXTROSE 5%-WATER - 1,000 ML IV SCH ×3 (03:43→18:38)
[2018-07-16] MEDS: glipiZIDE 5 MG TABLET (FP) PO SCH (06:08)
[2018-07-16] MEDS: SODIUM BICARBONATE 650 MG TABLET PO SCH ×3 (06:08→21:58)
[2018-07-16] MEDS: FERROUS SO4 325 MG TABLET (FP) PO SCH ×2 (06:08→15:20)
--- NOTE | 2018-07-16 06:34 | PN ---
Progress Note, Physician Chief Complaint: feels tired and nauseous; rising BUN; d/w pt she is ESRD at this point and complications of it including but not limited to rising BUN, possible increased K and arrythmia, HTN, fluid retention and possible IN, CVA and d/w pt has less diarrhea pt said she wants to feel better and she is ready to try dialysis; d/w pt her that her symptoms could be related to end stage renal ds and they might improve with dialysis but they might not; however she is willing to try dialysis at this point because she wants to feel better and to live longer. - Current Medication List Current Medications: Active Medications Acetaminophen (Tylenol -) 650 mg PO Q6H PRN PRN Reason: PAIN Alprazolam (Xanax -) 0.25 mg PO Q8H PRN PRN Reason: ANXIETY Last Admin: 07/15/18 20:05 Dose: 0.25 mg Amitriptyline HCl (Elavil -) 50 mg PO HS [facility] Last Admin: 07/15/18 21:12 Dose: 50 mg Aspirin (Ecotrin -) 81 mg PO DAILY [facility] Last Admin: 07/15/18 09:46 Dose: 81 mg Atorvastatin Calcium (Lipitor -) 10 mg PO HS [facility] Last Admin: 07/15/18 21:12 Dose: 10 mg Calcitriol (Rocaltrol -) 0.25 mcg PO DAILY [facility] Last Admin: 07/15/18 09:46 Dose: 0.25 mcg Cholestyramine Resin (Questran Light Packet -) 4 gm PO BID [facility] Last Admin: 07/15/18 21:12 Dose: Not Given Docusate Sodium (Colace -) 100 mg PO PRN PRN Reason: CONSTIPATION Ferrous Sulfate (Feosol -) 325 mg PO BID@0600,1400 [facility] Last Admin: 07/16/18 06:08 Dose: 325 mg Glipizide (Glucotrol -) 5 mg PO DAILY@0700 [facility] Last Admin: 07/16/18 06:08 Dose: 5 mg Glipizide (Glucotrol Xl -) 2.5 mg PO DAILY@1630 [facility] Last Admin: 07/15/18 17:21 Dose: Not Given Heparin Sodium (Porcine) (Heparin -) 5,000 unit SQ BID [facility] Last Admin: 07/15/18 21:11 Dose: 5,000 unit Sodium Bicarbonate 75 meq/ (Dextrose) 1,075 mls @ 83 mls/hr IV Q13H [facility] Last Admin: 07/16/18 03:43 Dose: 83 mls/hr Isosorbide Mononitrate (Imdur -) 30 mg PO DAILY [facility] Last Admin: 07/15/18 09:46 Dose: 30 mg Metoprolol Tartrate (Lopressor -) 100 mg PO BID [facility] Last Admin: 07/15/18 21:12 Dose: 100 mg Nifedipine (Procardia Xl -) 60 mg PO BID [facility] Last Admin: 07/15/18 21:12 Dose: 60 mg Ondansetron HCl (Zofran -) 8 mg PO TID PRN PRN Reason: NAUSEA Sodium Bicarbonate (Sodium Bicarbonate -) 650 mg PO TID [facility] Last Admin: 07/16/18 06:08 Dose: 650 mg - Objective Vital Signs: Vital Signs Temperature 98.4 F 07/15/18 21:13 Pulse Rate 78 07/15/18 21:13 Respiratory Rate 20 07/15/18 21:13 Blood Pressure 152/59 L 07/15/18 21:13 O2 Sat by Pulse Oximetry (%) 100 07/15/18 21:00 Constitutional: Yes: No Distress, Calm Eyes: Yes: Conjunctiva Clear HENT: Yes: Atraumatic Neck: Yes: Supple Cardiovascular: Yes: Regular Rate and Rhythm Respiratory: Yes: CTA Bilaterally Gastrointestinal: Yes: Soft. No: Distention Genitourinary: No: CVA Tenderness - Left, CVA Tenderness - Right, Hematuria Musculoskeletal: No: Joint Stiffness, Joint Swelling Extremities: No: Cold, Cool, Cyanosis Edema: No Integumentary: No: Rash, Venous Stasis Changes Neurological: Yes: WNL, Alert, Oriented ...Motor Strength: WNL Psychiatric: Yes: WNL, Alert, Oriented. No: Agitated, Suicidal Ideation Labs: CBC, BMP 07/14/18 13:50 07/14/18 13:50 INR, PTT INR 0.93 (0.83-1.09) 07/14/18 13:50 - ....Imaging Other: Report Reviewed Assessment/Plan t is a 82 yo F, with PMH of cholecystectomy/ERCP, HTN, NIDDM, HLD, chronic renal failure (pt refusing dialysis), chronic diarrhea, and anemia. The pt has current complaints of diarrhea, associated with nausea, decreased po intake, weight loss and general weakness. IVF f/u labs GI and renal eval stop smoking; NRT patch d/w pt about dialysis to address it with renal dr; falls decubs DVT pfx dw pt and staff
[2018-07-16 07:21] LABS: EOS % 5.5 % (0-4.5); HEMATOCRIT 23.5 % (32.4-45.2); HEMOGLOBIN 8.1 GM/dL (10.7-15.3); MCH 32.3 pg (25.7-33.7); MCHC 34.5 g/dl (32.0-36.0); MEAN CELL VOLUME 93.5 fl (80-96); MEAN PLT VOLUME 8.5 fl (7.5-11.1); MONO % 8.8 % (3.8-10.2); NEUT % 63.7 % (42.8-82.8); PLATELET COUNT 293 K/MM3 (134-434); RBC 2.51 M/mm3 (3.60-5.2); RDW 13.8 % (11.6-15.6); WHITE BLOOD COUNT 6.7 K/mm3 (4.0-10.0)
[2018-07-16 08:02] LABS: MAGNESIUM 1.7 mg/dL (1.8-2.4)
--- NOTE | 2018-07-16 08:20 | PN ---
Progress Note (short form) - Note Progress Note: Patient refuses to see either myself or Dr. De Paz. I cross cover with Dr. Zuniga as well advised nurse to call PMD to have alternate insert molding operator placed on the case.
[2018-07-16 08:28] LABS: ALBUMIN 2.6 g/dl (3.4-5.0); ALK PHOS 62 U/L (45-117); ANION GAP 9 MMOL/L (8-16); BILIRUBIN,TOTAL 0.2 mg/dL (0.2-1); BLOOD UREA NITROGEN 57 mg/dL (7-18); CALCIUM 7.4 mg/dL (8.5-10.1); CHLORIDE 115 mmol/L (98-107); CO2 16 mmol/L (21-32); CREATININE 5.5 mg/dL (0.55-1.3); GLUCOSE,RANDOM 107 mg/dL (74-106); POTASSIUM 4.4 mmol/L (3.5-5.1); SGOT/AST 17 U/L (15-37); SGPT/ALT 19 U/L (13-61); SODIUM 140 mmol/L (136-145); TOT PROT 5.5 g/dl (6.4-8.2)
[2018-07-16] MEDS ORDERED: PT OWN MED DRAWER 7, Y5N ONE ×3 (09:30→21:56)
[2018-07-16] MEDS: NIFEdipine E.R 60 MG TABLET (UD) PO SCH ×2 (09:37→21:57)
[2018-07-16] MEDS: CALCITRIOL 0.25 MCG CAPSULE (FP) PO SCH (09:37)
[2018-07-16] MEDS: ISOSORBIDE MONONITRATE 30 MG TAB.SR.24H (FP) PO SCH (09:37)
[2018-07-16] MEDS: ASPIRIN COATED 81 MG TABLET.EC PO SCH (09:37)
[2018-07-16] MEDS: METOPROLOL TARTRATE 50 MG TABLET (FP) PO SCH ×2 (09:37→21:57)
[2018-07-16] MEDS: CHOLESTYRAMINE/ASPARTAME 4 GM PACKET PO SCH ×3 (09:37→22:11)
[2018-07-16] MEDS: HEPARIN NA (PORCINE) 5,000 UNITS/ML 1ML VIAL SQ SCH ×2 (09:38→21:57)
[2018-07-16] MEDS: ALPRAZolam 0.25 MG TABLET PO PRN (10:56)
--- NOTE | 2018-07-16 12:52 | PN ---
Progress Note, Physician Chief Complaint: The patient seen and examined in her bed. She is feeling very tired and weak. Poor appetite. Overall she feels that all her symptoms are related to advanced kidney failure. Maintains fair amounts of urine output. No chest pain, No shortness of breath. No bleeding. History of Present Illness: This is a 82 year old female with hx of CKD stage 5 with proteinuria likely due to diabetic nephropathy (negative serologic work up, had been refusing dialysis) , Hypertension, DM, HLD, anemia who presented with complaints of diarrhea and weakness. Diarrhea comes and goes. Sleepy all the time. - Current Medication List Current Medications: Active Medications Acetaminophen (Tylenol -) 650 mg PO Q6H PRN PRN Reason: PAIN Alprazolam (Xanax -) 0.25 mg PO Q8H PRN PRN Reason: ANXIETY Last Admin: 07/16/18 10:56 Dose: 0.25 mg Amitriptyline HCl (Elavil -) 50 mg PO HS [facility] Last Admin: 07/15/18 21:12 Dose: 50 mg Aspirin (Ecotrin -) 81 mg PO DAILY [facility] Last Admin: 07/16/18 09:37 Dose: 81 mg Atorvastatin Calcium (Lipitor -) 10 mg PO HS [facility] Last Admin: 07/15/18 21:12 Dose: 10 mg Calcitriol (Rocaltrol -) 0.25 mcg PO DAILY [facility] Last Admin: 07/16/18 09:37 Dose: 0.25 mcg Cholestyramine Resin (Questran Light Packet -) 4 gm PO BID [facility] Last Admin: 07/16/18 09:37 Dose: 4 gm Docusate Sodium (Colace -) 100 mg PO HS PRN PRN Reason: CONSTIPATION Ferrous Sulfate (Feosol -) 325 mg PO BID@0600,1400 [facility] Last Admin: 07/16/18 06:08 Dose: 325 mg Glipizide (Glucotrol -) 5 mg PO DAILY@0700 [facility] Last Admin: 07/16/18 06:08 Dose: 5 mg Glipizide (Glucotrol Xl -) 2.5 mg PO DAILY@1630 [facility] Last Admin: 07/15/18 17:21 Dose: Not Given Heparin Sodium (Porcine) (Heparin -) 5,000 unit SQ BID [facility] Last Admin: 07/16/18 09:38 Dose: 5,000 unit Sodium Bicarbonate 75 meq/ (Dextrose) 1,075 mls @ 83 mls/hr IV Q13H [facility] Last Admin: 07/16/18 03:43 Dose: 83 mls/hr Isosorbide Mononitrate (Imdur -) 30 mg PO DAILY [facility] Last Admin: 07/16/18 09:37 Dose: 30 mg Metoprolol Tartrate (Lopressor -) 100 mg PO BID [facility] Last Admin: 07/16/18 09:37 Dose: 100 mg Nifedipine (Procardia Xl -) 60 mg PO BID [facility] Last Admin: 07/16/18 09:37 Dose: 60 mg Ondansetron HCl (Zofran -) 8 mg PO TID PRN PRN Reason: NAUSEA Last Admin: 07/16/18 09:37 Dose: 8 mg Sodium Bicarbonate (Sodium Bicarbonate -) 650 mg PO TID [facility] Last Admin: 07/16/18 06:08 Dose: 650 mg - Objective Vital Signs: Vital Signs Temperature 98.5 F 07/16/18 06:00 Pulse Rate 73 07/16/18 06:00 Respiratory Rate 20 07/16/18 06:00 Blood Pressure 136/103 H 07/16/18 06:00 O2 Sat by Pulse Oximetry (%) 100 07/15/18 21:00 Constitutional: Yes: Anxious, Pallor Eyes: Yes: Conjunctiva Clear HENT: Yes: Normocephalic Neck: Yes: Trachea Midline Cardiovascular: Yes: Regular Rate and Rhythm, Tachycardia, S1, S2 Respiratory: Yes: Regular, CTA Bilaterally, Diminished Gastrointestinal: Yes: Normal Bowel Sounds, Soft Musculoskeletal: Yes: Back Pain, Joint Stiffness Edema: No Integumentary: Yes: WNL Neurological: Yes: Alert, Oriented Psychiatric: Yes: Alert Labs: CBC, BMP 07/16/18 06:15 07/16/18 06:15 INR, PTT INR 0.93 (0.83-1.09) 07/14/18 13:50 Problem List - Problems (1) Diarrhea Code(s): R19.7 - DIARRHEA, UNSPECIFIED Qualifiers: Diarrhea type: unspecified type Qualified Code(s): R19.7 - Diarrhea, unspecified (2) Renal failure, chronic Code(s): N18.9 - CHRONIC KIDNEY DISEASE, UNSPECIFIED Qualifiers: Chronic kidney disease stage: unspecified stage Qualified Code(s): N18.9 - Chronic kidney disease, unspecified (3) Anemia Code(s): D64.9 - ANEMIA, UNSPECIFIED Qualifiers: Anemia type: due to chronic kidney disease Chronic kidney disease stage: stage 5, not on chronic dialysis Qualified Code(s): N18.5 - Chronic kidney disease, stage 5; D63.1 - Anemia in chronic kidney disease (4) CAD (coronary artery disease) Code(s): I25.10 - ATHSCL HEART DISEASE OF [place] CORONARY ARTERY W/O ANG PCTRS Qualifiers: Coronary Disease-Associated Artery/Lesion type: [place] artery [place] vs. transplanted heart: [place] heart Associated angina: without angina Qualified Code(s): I25.10 - Atherosclerotic heart disease of [place] coronary artery without angina pectoris (5) CKD stage 5 secondary to hypertension Code(s): I12.0 - HYP CHR KIDNEY DISEASE W STAGE 5 CHR KIDNEY DISEASE OR ESRD; N18.5 - CHRONIC KIDNEY DISEASE, STAGE 5 (6) Headache Code(s): R51 - HEADACHE Assessment/Plan This is a 82 year old woman with hx of CKD stage 5 with proteinuria likely due to diabetic nephropathy (negative serologic work up, had been refusing dialysis) , Hypertension, DM, HLD, anemia who presented with complaints of diarrhea and weakness. Had extensive discussion with the patient about the symptoms possibly being related to the Kidney failure. Told her that she has End Stage Renal Disease, and there is no recovery expected of her kidney disease. She wants to try dialysis. She does not want to continue feeling the way she does now. While majority of the way she feels the way she does may be related to uremia, it is unlikely that the GI symptoms are related to it. Will have vascular evaluation for Permacath. Will schedule for dialysis in AM. Thank you. Cristela Canales MD
--- NOTE | 2018-07-16 14:55 | SPA.PREOP ---
- PRE-OP NOTE Dx: ESRD Planned Procedure: Permacath Insertion Surgeon: Carlo Nance Consent: To be obtained by surgeon after all risks, benefits and alternatives explained to patient. Last Vital Signs Temp Pulse Resp BP Pulse Ox 98.5 F 73 20 136/103 H 100 07/16/18 06:00 07/16/18 06:00 07/16/18 06:00 07/16/18 06:00 07/15/18 21:00 Lab Results WBC 6.7 K/mm3 (4.0-10.0) 07/16/18 06:15 RBC 2.51 M/mm3 (3.60-5.2) L 07/16/18 06:15 Hgb 8.1 GM/dL (10.7-15.3) L 07/16/18 06:15 Hct 23.5 % (32.4-45.2) L D 07/16/18 06:15 MCV 93.5 fl (80-96) 07/16/18 06:15 MCHC 34.5 g/dl (32.0-36.0) 07/16/18 06:15 RDW 13.8 % (11.6-15.6) 07/16/18 06:15 Plt Count 293 K/MM3 (134-434) 07/16/18 06:15 Sodium 140 mmol/L (136-145) 07/16/18 06:15 Potassium 4.4 mmol/L (3.5-5.1) 07/16/18 06:15 Chloride 115 mmol/L (98-107) H 07/16/18 06:15 Carbon Dioxide 16 mmol/L (21-32) L 07/16/18 06:15 Anion Gap 9 MMOL/L (8-16) 07/16/18 06:15 BUN 57 mg/dL (7-18) H 07/16/18 06:15 Creatinine 5.5 mg/dL (0.55-1.3) H 07/16/18 06:15 Random Glucose 107 mg/dL (74-106) H 07/16/18 06:15 Calcium 7.4 mg/dL (8.5-10.1) L 07/16/18 06:15 INR 0.93 (0.83-1.09) 07/14/18 13:50 - ASSESSMENT/PLAN 1. Make NPO after midnight except po meds 2. GI/DVT PPX 3. Medical optimization / clearance Visit type - Case Type Case Type: ED Admission - New patient This patient is new to me today: Yes Date on this admission: 07/16/18
--- NOTE | 2018-07-16 17:45 | CONSULT ---
Consult Consult Specialty:: Vascular Surgery Referred by:: Dr. Canales Reason for Consultation:: Dialysis access. - History of Present Illness History of Present Illness: 82 year old woman with CKD stage 5 who will need dialysis to start on this admission. She is right handed. - Past Medical History Cardio/Vascular: Yes: HTN, Hyperlipdemia, Murmur, Other (PAD) Pulmonary: Yes: Asthma, COPD Hepatobiliary: Yes: Cholelithiasis, Choledocholithiasis Renal/: Yes: Renal Inusuff Infectious Disease: Yes: Other (history of osteomyelitis in the past) Endocrine: Yes: Diabetes Mellitus - Past Surgical History Past Surgical History: Yes: Amputation (1-st R toe amputation), Bypass (Right fem pop bypass) - Alcohol/Substance Use Hx Alcohol Use: No History of Substance Use: reports: None - Smoking History Smoking history: Never smoked Have you smoked in the past 12 months: No Aproximately how many cigarettes per day: 10 If you are a former smoker, when did you quit?: 08/10/2012 - Social History Usual Living Arrangement: Alone ADL: Independent 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, 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, 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 Travel: No Home Medications - Allergies Allergies/Adverse Reactions: Allergies Allergy/AdvReac Type Severity Reaction Status Date / Time iodine Allergy Rash Verified 07/14/18 12:09 penicillin V Allergy Verified 07/14/18 12:09 shellfish derived Allergy Rash Verified 07/14/18 12:09 vancomycin Allergy Verified 07/14/18 12:09 azithromycin AdvReac Verified 07/14/18 12:09 - Home Medications Home Medications: Ambulatory Orders Ferrous Sulfate 65 mg PO BID 08/29/16 Nifedipine ER [Procardia XL -] 60 mg PO BID 08/29/16 Aspirin Coated [Ecotrin -] 81 mg PO DAILY tablet.ec 09/15/16 Glipizide 5 mg PO DAILY 06/26/17 Calcitriol [Calcitriol -] 0.25 mcg PO DAILY capsule 12/29/17 Cholestyramine/Aspartame [Questran Light Packet -] 4 gm PO BID packet 12/29/17 Ferrous Sulfate [Feosol] 325 mg PO BID ud 12/29/17 Metoprolol Tartrate [Lopressor -] 100 mg PO BID tablet 12/29/17 Alprazolam [Xanax] 0.25 mg PO BID 05/05/18 Amitriptyline HCl [Elavil -] 50 mg PO HS 05/05/18 Atorvastatin Ca [Lipitor] 10 mg PO HS 05/05/18 Furosemide [Lasix] 20 mg PO DAILY 05/05/18 Isosorbide Mononitrate [Imdur -] 30 mg PO DAILY 05/05/18 Ondansetron HCl [Zofran] 8 mg PO TID PRN 05/05/18 Acetaminophen [Tylenol .Regular Strength -] 650 mg PO Q6H PRN tablet 06/05/18 Calcium Acetate [Calphron] 667 mg PO BID 07/14/18 Docusate Sodium [Colace] 100 mg PO ASDIR PRN 07/14/18 Glipizide [Glipizide ER] 2.5 mg PO HS 07/14/18 Sodium Bicarbonate - 650 mg PO TID 07/14/18 Family Disease History - Family Disease History Family Disease History: CA: Father (lung ca), Mother (, lung ca), Sister (lung ca) Physical Exam Vital Signs: Vital Signs Temperature 98.5 F 07/16/18 06:00 Pulse Rate 73 07/16/18 06:00 Respiratory Rate 20 07/16/18 06:00 Blood Pressure 136/103 H 07/16/18 06:00 O2 Sat by Pulse Oximetry (%) 100 07/15/18 21:00 Constitutional: Yes: No Distress, Thin Eyes: Yes: WNL HENT: Yes: WNL Neck: Yes: Supple Cardiovascular: Yes: Regular Rate and Rhythm Respiratory: Yes: Regular Gastrointestinal: Yes: Soft Extremities: Yes: Other (Left arm no edema, cephalic vein in upper arm 2-3 mm. 2 + brachial pulse.) Labs: CBC, BMP 07/16/18 06:15 07/16/18 06:15 Problem List - Problems (1) Renal failure, chronic Assessment/Plan: Will place Permacath in AM. If she needs chronic dialysis left arm AV fistula will be scheduled. Code(s): N18.9 - CHRONIC KIDNEY DISEASE, UNSPECIFIED Qualifiers: Chronic kidney disease stage: stage 5 Qualified Code(s): N18.5 - Chronic kidney disease, stage 5
[2018-07-16] MEDS: glipiZIDE-XL 2.5 MG TAB.ER.24 PO SCH (18:39)
[2018-07-16] MEDS: AMITRIPTYLINE HCL 25 MG TABLET (FP) PO SCH (21:56)
[2018-07-16] MEDS: ATORVASTATIN CA 10 MG TABLET (FP) PO SCH (21:57)
[2018-07-17] MEDS ORDERED: LIDOCAINE HCL 1%, 10 MG/ML (20ML VIAL) ONE (07:05)
[2018-07-17] MEDS: FERROUS SO4 325 MG TABLET (FP) PO SCH ×3 (07:12→17:07)
[2018-07-17] MEDS: SODIUM BICARBONATE 8.4% - 75 MEQ in DEXTROSE 5%-WATER - 1,000 ML IV SCH ×2 (07:12→18:48)
[2018-07-17] MEDS: SODIUM BICARBONATE 650 MG TABLET PO SCH ×4 (07:13→22:53)
[2018-07-17] MEDS: glipiZIDE 5 MG TABLET (FP) PO SCH (07:13)
[2018-07-17] MEDS ORDERED: MIDAZOLAM HCL 2 MG/2 ML SINGLE DOSE VIAL ONE (07:25)
[2018-07-17] MEDS ORDERED: DEXMEDETOMIDINE HCL 200 MCG/2 ML ML IVPB ONE (07:41)
[2018-07-17] MEDS ORDERED: ONDANSETRON 4 MG/2 ML VIAL IVPUSH PRN ×2 (07:47→09:18)
[2018-07-17 08:04] LABS: ALBUMIN 2.7 g/dl (3.4-5.0); ALK PHOS 63 U/L (45-117); ANION GAP 10 MMOL/L (8-16); BILIRUBIN,TOTAL 0.2 mg/dL (0.2-1); BLOOD UREA NITROGEN 57 mg/dL (7-18); CALCIUM 7.4 mg/dL (8.5-10.1); CHLORIDE 110 mmol/L (98-107); CO2 20 mmol/L (21-32); CREATININE 5.6 mg/dL (0.55-1.3); GLUCOSE,RANDOM 117 mg/dL (74-106); POTASSIUM 4.4 mmol/L (3.5-5.1); SGOT/AST 14 U/L (15-37); SGPT/ALT 18 U/L (13-61); SODIUM 140 mmol/L (136-145); TOT PROT 5.8 g/dl (6.4-8.2)
[2018-07-17] MEDS ORDERED: CLINDAMYCIN PHOSPHATE 600 MG/4 ML VIAL ONE (08:39)
[2018-07-17] MEDS ORDERED: CLINDAMYCIN 300 MG PREMIX BAG IVPB ONE (08:40)
[2018-07-17] MEDS ORDERED: LIDOCAINE HCL 1%, 10 MG/ML (20ML VIAL) INF ONE ×2 (08:43)
[2018-07-17] MEDS ORDERED: ceFAZolin SODIUM 1 GM VIAL ONE (08:44)
[2018-07-17] MEDS ORDERED: DEXAMETHASONE SOD PHOSPHATE 4 MG/1 ML VIAL ONE (08:44)
[2018-07-17] MEDS ORDERED: SODIUM CHLORIDE 0.9% P/F 10 ML VIAL IJ ONE (08:44)
--- NOTE | 2018-07-17 08:44 | PN ---
Progress Note, Physician Chief Complaint: after long d/w me and renal dr Gomez agreed to try dialysis, now is s/p R permacath placed awake alert NAD VSS no c/o feels well - Current Medication List Current Medications: Active Medications Acetaminophen (Tylenol -) 650 mg PO Q6H PRN PRN Reason: PAIN Last Admin: 07/16/18 22:43 Dose: 650 mg Alprazolam (Xanax -) 0.25 mg PO Q8H PRN PRN Reason: ANXIETY Last Admin: 07/16/18 10:56 Dose: 0.25 mg Amitriptyline HCl (Elavil -) 50 mg PO HS [facility] Last Admin: 07/16/18 21:56 Dose: 50 mg Aspirin (Ecotrin -) 81 mg PO DAILY [facility] Last Admin: 07/16/18 09:37 Dose: 81 mg Atorvastatin Calcium (Lipitor -) 10 mg PO HS [facility] Last Admin: 07/16/18 21:57 Dose: 10 mg Calcitriol (Rocaltrol -) 0.25 mcg PO DAILY [facility] Last Admin: 07/16/18 09:37 Dose: 0.25 mcg Cholestyramine Resin (Questran Light Packet -) 4 gm PO BID [facility] Last Admin: 07/16/18 22:11 Dose: Not Given Docusate Sodium (Colace -) 100 mg PO HS PRN PRN Reason: CONSTIPATION Fentanyl (Sublimaze Injection -) 25 mcg IVPUSH [id number] PRN PRN Reason: PAIN-PACU ORDER X 4 DOSES ONLY Ferrous Sulfate (Feosol -) 325 mg PO BID@0600,1400 [facility] Last Admin: 07/17/18 07:12 Dose: Not Given Glipizide (Glucotrol -) 5 mg PO DAILY@0700 [facility] Last Admin: 07/17/18 07:13 Dose: Not Given Glipizide (Glucotrol Xl -) 2.5 mg PO DAILY@1630 [facility] Last Admin: 07/16/18 18:39 Dose: 2.5 mg Sodium Bicarbonate 75 meq/ (Dextrose) 1,075 mls @ 83 mls/hr IV Q13H [facility] Last Admin: 07/17/18 07:12 Dose: Not Given Isosorbide Mononitrate (Imdur -) 30 mg PO DAILY [facility] Last Admin: 07/16/18 09:37 Dose: 30 mg Metoprolol Tartrate (Lopressor -) 100 mg PO BID [facility] Last Admin: 07/16/18 21:57 Dose: 100 mg Nifedipine (Procardia Xl -) 60 mg PO BID [facility] Last Admin: 07/16/18 21:57 Dose: 60 mg Ondansetron HCl (Zofran -) 8 mg PO TID PRN PRN Reason: NAUSEA Last Admin: 07/16/18 09:37 Dose: 8 mg Ondansetron HCl (Zofran Injection) 4 mg IVPUSH Q6H PRN PRN Reason: NAUSEA AND/OR VOMITING Sodium Bicarbonate (Sodium Bicarbonate -) 650 mg PO TID [facility] Last Admin: 07/17/18 07:13 Dose: Not Given - Objective Vital Signs: Vital Signs Temperature 98.3 F 07/17/18 06:00 Pulse Rate 72 07/17/18 06:00 Respiratory Rate 18 07/17/18 06:00 Blood Pressure 128/94 07/17/18 06:00 O2 Sat by Pulse Oximetry (%) 100 07/16/18 21:00 Constitutional: Yes: No Distress, Calm Eyes: Yes: Conjunctiva Clear HENT: Yes: Atraumatic Neck: Yes: Supple Cardiovascular: Yes: Regular Rate and Rhythm Respiratory: Yes: CTA Bilaterally Gastrointestinal: Yes: Soft. No: Distention Genitourinary: No: CVA Tenderness - Left, CVA Tenderness - Right Musculoskeletal: No: Joint Stiffness, Joint Swelling Extremities: No: Cold, Cool, Cyanosis Edema: No Integumentary: No: Rash, Venous Stasis Changes Neurological: Yes: WNL, Alert, Oriented ...Motor Strength: WNL Psychiatric: Yes: WNL, Alert, Oriented. No: Agitated, Suicidal Ideation Labs: CBC, BMP 07/16/18 06:15 07/17/18 06:30 INR, PTT INR 0.93 (0.83-1.09) 07/14/18 13:50 - ....Imaging Other: Report Reviewed Assessment/Plan t is a 82 yo F, with PMH of cholecystectomy/ERCP, HTN, NIDDM, HLD, chronic renal failure (pt refusing dialysis), chronic diarrhea, and anemia. The pt has current complaints of diarrhea, associated with nausea, decreased po intake, weight loss and general weakness. IVF f/u labs GI and renal f/u; stop smoking; NRT patch dialysis per renal cardiology f/u falls decubs DVT pfx dw pt and staff
[2018-07-17] MEDS ORDERED: HEPARIN NA (PORCINE) 1,000 UNITS/ML 10ML M-D VIAL SQ ONE ×2 (08:50)
--- NOTE | 2018-07-17 08:58 | OP ---
Operative Note - Note: Operative Date: 07/17/18 Pre-Operative Diagnosis: ESRD Operation: Placement Permacath Findings: Patent right IJ Implants: 19 cm Permacath Post-Operative Diagnosis: Same as Pre-op Surgeon: Carlo Nance Anesthesiologist/NON CDL DRIVER: Odin Beckman Anesthesia: Fractional
[2018-07-17] MEDS ORDERED: ONDANSETRON 4 MG TABLET PO PRN (09:18)
[2018-07-17] MEDS ORDERED: DOCUSATE SODIUM 100 MG CAPSULE (FP) PO PRN (09:18)
[2018-07-17] MEDS ORDERED: ACETAMINOPHEN 325 MG TABLET (FP) PO PRN (09:18)
--- NOTE | 2018-07-17 09:27 | OP ---
DATE OF OPERATION: 07/17/2018 SURGEON: Carlo Cooper MD OPERATION: Placement of permacath. PREOPERATIVE DIAGNOSIS: Renal failure. POSTOPERATIVE DIAGNOSIS: Renal failure. ANESTHESIA: Fractional. TRIPLE DRUM OPERATOR: Odin Beckman CRNA PROCEDURE: The right neck and chest were prepped with ChloraPrep. Time-out was performed. Using real-time duplex imaging, the right internal jugular vein was identified. it was patent with normal compressibility and phasic flow. Lidocaine 1% was infiltrated in the skin lateral to the vein. The vein was cannulated under ultrasound guidance with a micropuncture needle. A wire was passed proximally into the superior vena cava under fluoroscopic guidance. The needle was exchanged for a 5-[place] catheter and the wire was exchanged for a J-tipped wire, which was advanced through the right atrium into the inferior vena cava. Additional Xylocaine was infiltrated in the chest wall, and a stab wound made. A 19-cm tipped cuff permacath was passed from through the tunneler from chest to neck. Tract around the wire was dilated, and the introducer was placed into superior vena cava under fluoroscopic guidance. The wire and dilator were removed, and the tip of the permacath was advanced into the right atrium. Introducer was peeled away. Each lumen was aspirated for blood and flushed with saline and Heparin solution. The neck wound was closed with a subcuticular suture of 3-0 Vicryl, and the catheter was sutured to the skin at the exit site with 3-0 nylon. Sterile dressings were applied, and the patient was taken to the recovery room for a chest x-ray. CARLO COOPER M.D. [id number]
[2018-07-17] MEDS ORDERED: ONDANSETRON 4 MG/2 ML VIAL ONE (09:59)
--- NOTE | 2018-07-17 11:04 | PN ---
Progress Note (short form) - Note Progress Note: Renal follow up for CKD Pt seen and examined at the bedside s/p tunneled dialysis catheter placement this am no acute complaints denies any sob, cp, abd pain, N/V/D Vital Signs Temperature 97.9 F 07/17/18 10:10 Pulse Rate 70 07/17/18 10:10 Respiratory Rate 20 07/17/18 10:10 Blood Pressure 168/67 07/17/18 10:10 O2 Sat by Pulse Oximetry (%) 95 07/17/18 10:00 Intake & Output 07/14/18 07/15/18 07/16/18 07/17/18 23:59 23:59 23:59 23:59 Intake Total 240 1780 2120 300 Balance 240 1780 2120 300 Weight 52.934 kg 50.369 kg 52.163 kg 52.798 kg NAD Right IJ tunneled dialysis catheter RRR CTA no LE edema CBC, BMP 07/16/18 06:15 07/17/18 06:30 Current Medications Acetaminophen (Tylenol -) 650 mg PO Q6H PRN PRN Reason: PAIN Alprazolam (Xanax -) 0.25 mg PO Q8H PRN PRN Reason: ANXIETY Amitriptyline HCl (Elavil -) 50 mg PO HS [facility] Aspirin (Ecotrin -) 81 mg PO DAILY [facility] Atorvastatin Calcium (Lipitor -) 10 mg PO HS [facility] Calcitriol (Rocaltrol -) 0.25 mcg PO DAILY [facility] Cholestyramine Resin (Questran Light Packet -) 4 gm PO BID [facility] Docusate Sodium (Colace -) 100 mg PO HS PRN PRN Reason: CONSTIPATION Ferrous Sulfate (Feosol -) 325 mg PO BID@0600,1400 [facility] Glipizide (Glucotrol -) 5 mg PO DAILY@0700 [facility] Glipizide (Glucotrol Xl -) 2.5 mg PO DAILY@1630 [facility] Sodium Bicarbonate 75 meq/ (Dextrose) 1,075 mls @ 83 mls/hr IV Q13H [facility] Isosorbide Mononitrate (Imdur -) 30 mg PO DAILY [facility] Metoprolol Tartrate (Lopressor -) 100 mg PO BID [facility] Nifedipine (Procardia Xl -) 60 mg PO BID [facility] Ondansetron HCl (Zofran -) 8 mg PO TID PRN PRN Reason: NAUSEA Sodium Bicarbonate (Sodium Bicarbonate -) 650 mg PO TID [facility] 82 year old woman with hx of 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
[2018-07-17] MEDS: CHOLESTYRAMINE/ASPARTAME 4 GM PACKET PO SCH ×3 (11:29→22:55)
[2018-07-17] MEDS: ISOSORBIDE MONONITRATE 30 MG TAB.SR.24H (FP) PO SCH (11:29)
[2018-07-17] MEDS: NIFEdipine E.R 60 MG TABLET (UD) PO SCH ×2 (11:29→22:53)
[2018-07-17] MEDS: CALCITRIOL 0.25 MCG CAPSULE (FP) PO SCH (11:29)
[2018-07-17] MEDS: METOPROLOL TARTRATE 50 MG TABLET (FP) PO SCH ×2 (11:29→22:52)
[2018-07-17] MEDS: ASPIRIN COATED 81 MG TABLET.EC PO SCH (11:29)
[2018-07-17 13:43] LABS: BASO % 0.8 % (0-2.0); EOS % 4.4 % (0-4.5); HEMATOCRIT 25.4 % (32.4-45.2); LYMPH % 15.7 % (8-40); MCH 32.7 pg (25.7-33.7); MCHC 35.5 g/dl (32.0-36.0); MEAN PLT VOLUME 8.4 fl (7.5-11.1); MONO % 9.3 % (3.8-10.2); NEUT % 69.8 % (42.8-82.8); PLATELET COUNT 276 K/MM3 (134-434); RBC 2.76 M/mm3 (3.60-5.2); RDW 13.9 % (11.6-15.6); WHITE BLOOD COUNT 6.8 K/mm3 (4.0-10.0)
[2018-07-17] MEDS: ONDANSETRON 4 MG/2 ML VIAL IVPB PRN (13:51)
[2018-07-17] MEDS: ALPRAZolam 0.25 MG TABLET PO PRN ×2 (13:52→23:05)
[2018-07-17] MEDS ORDERED: EPOETIN ALFA 20,000 UNIT/1 ML VIAL IVPUSH ONE (14:00)
[2018-07-17] MEDS: glipiZIDE-XL 2.5 MG TAB.ER.24 PO SCH (17:26)
[2018-07-17] MEDS ORDERED: PT OWN MED DRAWER 7, Y5N ONE (22:49)
[2018-07-17] MEDS: AMITRIPTYLINE HCL 25 MG TABLET (FP) PO SCH (22:53)
[2018-07-17] MEDS: ATORVASTATIN CA 10 MG TABLET (FP) PO SCH (22:53)
[2018-07-18] MEDS: SODIUM BICARBONATE 8.4% - 75 MEQ in DEXTROSE 5%-WATER - 1,000 ML IV SCH ×2 (04:35→08:00)
[2018-07-18 06:09] LABS: HBsAG SCREEN Negative (Negative)
[2018-07-18] MEDS: SODIUM BICARBONATE 650 MG TABLET PO SCH ×3 (06:32→21:38)
[2018-07-18] MEDS: FERROUS SO4 325 MG TABLET (FP) PO SCH ×2 (06:32→17:02)
[2018-07-18] MEDS: glipiZIDE 5 MG TABLET (FP) PO SCH (06:35)
--- NOTE | 2018-07-18 06:51 | PN ---
Progress Note, Physician Chief Complaint: feels better no N/V had some loose stools did not want dialysis yesterday bit would agree to have it today, hansel Goyal renal - Current Medication List Current Medications: Active Medications Acetaminophen (Tylenol -) 650 mg PO Q6H PRN PRN Reason: PAIN Alprazolam (Xanax -) 0.25 mg PO Q8H PRN PRN Reason: ANXIETY Last Admin: 07/17/18 23:05 Dose: 0.25 mg Amitriptyline HCl (Elavil -) 50 mg PO HS [facility] Last Admin: 07/17/18 22:53 Dose: 50 mg Aspirin (Ecotrin -) 81 mg PO DAILY [facility] Last Admin: 07/17/18 11:29 Dose: 81 mg Atorvastatin Calcium (Lipitor -) 10 mg PO HS [facility] Last Admin: 07/17/18 22:53 Dose: 10 mg Calcitriol (Rocaltrol -) 0.25 mcg PO DAILY [facility] Last Admin: 07/17/18 11:29 Dose: 0.25 mcg Cholestyramine Resin (Questran Light Packet -) 4 gm PO BID [facility] Last Admin: 07/17/18 22:55 Dose: Not Given Docusate Sodium (Colace -) 100 mg PO HS PRN PRN Reason: CONSTIPATION Ferrous Sulfate (Feosol -) 325 mg PO BID@0600,1400 [facility] Last Admin: 07/18/18 06:32 Dose: 325 mg Glipizide (Glucotrol -) 5 mg PO DAILY@0700 [facility] Last Admin: 07/18/18 06:35 Dose: 5 mg Glipizide (Glucotrol Xl -) 2.5 mg PO DAILY@1630 [facility] Last Admin: 07/17/18 17:26 Dose: 2.5 mg Sodium Bicarbonate 75 meq/ (Dextrose) 1,075 mls @ 83 mls/hr IV Q13H [facility] Last Admin: 07/18/18 04:35 Dose: Not Given Sodium Chloride (Normal Saline -) 250 mls @ 3,000 mls/hr IV PRN PRN PRN Reason: Hypotension during Dialysis Stop: 07/18/18 11:30 Isosorbide Mononitrate (Imdur -) 30 mg PO DAILY [facility] Last Admin: 07/17/18 11:29 Dose: 30 mg Metoprolol Tartrate (Lopressor -) 100 mg PO BID [facility] Last Admin: 07/17/18 22:52 Dose: 100 mg Nifedipine (Procardia Xl -) 60 mg PO BID [facility] Last Admin: 07/17/18 22:53 Dose: 60 mg Ondansetron HCl (Zofran Injection) 8 mg IVPB Q8H PRN PRN Reason: NAUSEA Last Admin: 07/17/18 13:51 Dose: 8 mg Sodium Bicarbonate (Sodium Bicarbonate -) 650 mg PO TID [facility] Last Admin: 07/18/18 06:32 Dose: 650 mg - Objective Vital Signs: Vital Signs Temperature 98.1 F 07/17/18 22:00 Pulse Rate 73 07/17/18 22:00 Respiratory Rate 20 07/17/18 22:00 Blood Pressure 141/43 L 07/17/18 22:00 O2 Sat by Pulse Oximetry (%) 95 07/17/18 10:00 Constitutional: Yes: No Distress, Calm Eyes: Yes: Conjunctiva Clear HENT: Yes: Atraumatic Neck: Yes: Supple Cardiovascular: Yes: Regular Rate and Rhythm Respiratory: Yes: CTA Bilaterally Gastrointestinal: Yes: Soft. No: Distention Genitourinary: No: CVA Tenderness - Left, CVA Tenderness - Right Musculoskeletal: No: Joint Stiffness, Joint Swelling Extremities: No: Cold, Cool, Cyanosis Edema: No Integumentary: No: Rash, Venous Stasis Changes Neurological: Yes: WNL, Alert, Oriented ...Motor Strength: WNL Psychiatric: Yes: WNL, Alert, Oriented. No: Agitated, Suicidal Ideation Labs: CBC, BMP 07/17/18 13:25 07/17/18 06:30 INR, PTT INR 0.93 (0.83-1.09) 07/14/18 13:50 - ....Imaging Other: Report Reviewed Assessment/Plan t is a 82 yo F, with PMH of cholecystectomy/ERCP, HTN, NIDDM, HLD, chronic renal failure (pt refusing dialysis), chronic diarrhea, and anemia. The pt has current complaints of diarrhea, associated with nausea, decreased po intake, weight loss and general weakness. IVF f/u labs GI and renal f/u; stop smoking; NRT patch s/p permacath placement; dialysis per renal cardiology f/u falls decubs DVT pfx dw pt and staff
--- NOTE | 2018-07-18 07:35 | SPA.POSTOP ---
- POST-OP NOTE POD #1 s/p Right IJ tunneled cath No acute events since surgical procedure per RN notes. Patient resting comfortably. Pain management via prn meds. Denies n/v/f/c, CP or SOB. Last Vital Signs Temp Pulse Resp BP Pulse Ox 98.3 F 71 18 153/64 95 07/18/18 06:00 07/18/18 06:00 07/18/18 06:00 07/18/18 06:00 07/17/18 10:00 PE General: No acute distress. Neck: right chest wall permacath insertion secured to skin. Negative hematoma. Tunneled to right IJ. Negative hematoma. LE: Soft, non-tender bilat. Negative edema Problem List - Problems (1) CKD stage 5 secondary to hypertension Assessment/Plan: 82 yo female with h/o CKD stage 5 2/2 diabetic nephropathy now ESRD requiring dialyiss Plan for HD today Will need outpatient HD unit placement Cont care per primary medical team Code(s): I12.0 - HYP CHR KIDNEY DISEASE W STAGE 5 CHR KIDNEY DISEASE OR ESRD; N18.5 - CHRONIC KIDNEY DISEASE, STAGE 5
[2018-07-18 08:08] LABS: SERUM IRON SATURATION 16 % (15-55); TOTAL IRON BINDING CAPACITY 222 ug/dL (250-450); UIBC 186 ug/dL (118-369)
[2018-07-18 08:08] LABS: BASO % 0.9 % (0-2.0); EOS % 4.8 % (0-4.5); HEMATOCRIT 26.3 % (32.4-45.2); HEMOGLOBIN 8.9 GM/dL (10.7-15.3); LYMPH % 17.2 % (8-40); MCH 31.3 pg (25.7-33.7); MEAN CELL VOLUME 92.2 fl (80-96); MEAN PLT VOLUME 8.5 fl (7.5-11.1); MONO % 9.4 % (3.8-10.2); NEUT % 67.7 % (42.8-82.8); PLATELET COUNT 274 K/MM3 (134-434); RBC 2.85 M/mm3 (3.60-5.2); RDW 13.7 % (11.6-15.6); WHITE BLOOD COUNT 6.7 K/mm3 (4.0-10.0)
[2018-07-18 08:44] LABS: ALBUMIN 2.6 g/dl (3.4-5.0); ALK PHOS 63 U/L (45-117); ANION GAP 10 MMOL/L (8-16); BILIRUBIN,TOTAL 0.1 mg/dL (0.2-1); BLOOD UREA NITROGEN 48 mg/dL (7-18); CALCIUM 7.1 mg/dL (8.5-10.1); CHLORIDE 107 mmol/L (98-107); CO2 23 mmol/L (21-32); CREATININE 5.1 mg/dL (0.55-1.3); GLUCOSE,RANDOM 157 mg/dL (74-106); POTASSIUM 3.7 mmol/L (3.5-5.1); SGOT/AST 19 U/L (15-37); SGPT/ALT 18 U/L (13-61); SODIUM 140 mmol/L (136-145); TOT PROT 5.6 g/dl (6.4-8.2)
[2018-07-18] MEDS: CALCITRIOL 0.25 MCG CAPSULE (FP) PO SCH (10:02)
[2018-07-18] MEDS: NIFEdipine E.R 60 MG TABLET (UD) PO SCH ×2 (10:02→21:38)
[2018-07-18] MEDS: CHOLESTYRAMINE/ASPARTAME 4 GM PACKET PO SCH ×2 (10:02→21:38)
[2018-07-18] MEDS: ASPIRIN COATED 81 MG TABLET.EC PO SCH (10:02)
[2018-07-18] MEDS: ISOSORBIDE MONONITRATE 30 MG TAB.SR.24H (FP) PO SCH (10:02)
[2018-07-18] MEDS: METOPROLOL TARTRATE 50 MG TABLET (FP) PO SCH ×2 (10:02→21:38)
[2018-07-18] MEDS: ONDANSETRON 4 MG/2 ML VIAL IVPB PRN (10:30)
--- NOTE | 2018-07-18 11:46 | PN ---
Progress Note (short form) - Note Progress Note: Renal follow up for CKD Pt seen and examined at the bedside awake and alert s/p first dialysis earlier today, tolerated it well had diarrhea earlier today Vital Signs Temperature 98.6 F 07/18/18 09:09 Pulse Rate 79 07/18/18 09:09 Respiratory Rate 20 07/18/18 09:09 Blood Pressure 175/78 H 07/18/18 09:09 O2 Sat by Pulse Oximetry (%) 95 07/17/18 10:00 Intake & Output 07/15/18 07/16/18 07/17/18 07/18/18 23:59 23:59 23:59 23:59 Intake Total 1780 2120 1100 200 Balance 1780 2120 1100 200 Weight 50.369 kg 52.163 kg 52.798 kg 53.342 kg NAD awake and alert neck supple CTA soft NT/ND no LE edema right IJ tunneled HD catheter CBC, BMP 07/18/18 07:15 07/18/18 07:15 Current Medications Acetaminophen (Tylenol -) 650 mg PO Q6H PRN PRN Reason: PAIN Alprazolam (Xanax -) 0.25 mg PO Q8H PRN PRN Reason: ANXIETY Last Admin: 07/17/18 23:05 Dose: 0.25 mg Amitriptyline HCl (Elavil -) 50 mg PO HS [facility] Last Admin: 07/17/18 22:53 Dose: 50 mg Aspirin (Ecotrin -) 81 mg PO DAILY [facility] Last Admin: 07/18/18 10:02 Dose: 81 mg Atorvastatin Calcium (Lipitor -) 10 mg PO HS [facility] Last Admin: 07/17/18 22:53 Dose: 10 mg Calcitriol (Rocaltrol -) 0.25 mcg PO DAILY [facility] Last Admin: 07/18/18 10:02 Dose: 0.25 mcg Cholestyramine Resin (Questran Light Packet -) 4 gm PO BID [facility] Last Admin: 07/18/18 10:02 Dose: 4 gm Docusate Sodium (Colace -) 100 mg PO HS PRN PRN Reason: CONSTIPATION Ferrous Sulfate (Feosol -) 325 mg PO BID@0600,1400 [facility] Last Admin: 07/18/18 06:32 Dose: 325 mg Glipizide (Glucotrol -) 5 mg PO DAILY@0700 [facility] Last Admin: 07/18/18 06:35 Dose: 5 mg Glipizide (Glucotrol Xl -) 2.5 mg PO DAILY@1630 [facility] Last Admin: 07/17/18 17:26 Dose: 2.5 mg Sodium Bicarbonate 75 meq/ (Dextrose) 1,075 mls @ 83 mls/hr IV Q13H [facility] Last Admin: 07/18/18 04:35 Dose: Not Given Sodium Chloride (Normal Saline -) 250 mls @ 3,000 mls/hr IV PRN PRN PRN Reason: Hypotension during Dialysis Stop: 07/18/18 11:30 Isosorbide Mononitrate (Imdur -) 30 mg PO DAILY [facility] Last Admin: 07/18/18 10:02 Dose: 30 mg Metoprolol Tartrate (Lopressor -) 100 mg PO BID [facility] Last Admin: 07/18/18 10:02 Dose: 100 mg Nifedipine (Procardia Xl -) 60 mg PO BID [facility] Last Admin: 07/18/18 10:02 Dose: 60 mg Ondansetron HCl (Zofran Injection) 8 mg IVPB Q8H PRN PRN Reason: NAUSEA Last Admin: 07/18/18 10:30 Dose: 8 mg Sodium Bicarbonate (Sodium Bicarbonate -) 650 mg PO TID [facility] Last Admin: 07/18/18 06:32 Dose: 650 mg 82 year old woman with hx of 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
[2018-07-18] MEDS: ALPRAZolam 0.25 MG TABLET PO PRN ×2 (11:57→22:34)
[2018-07-18] MEDS ORDERED: SODIUM CHLORIDE 250 ML IV PRN (16:52)
[2018-07-18] MEDS ORDERED: EPOETIN ALFA 20,000 UNIT/1 ML VIAL IVPUSH ONE (17:00)
[2018-07-18] MEDS: glipiZIDE-XL 2.5 MG TAB.ER.24 PO SCH (17:02)
--- NOTE | 2018-07-18 17:29 | CON.CARD ---
Consult Consult Specialty:: Cardiology Referred by:: Angela Barahona MD Reason for Consultation:: Mild ischemia - History of Present Illness Chief Complaint: Progressive uremia History of Present Illness: Patient is a 82 year old female with history of PAD S/P right fem pop bypass and toe amputations, stage V CKD, HTN/HCVD, type 2 DM, CAD with abnl MPI, h/o hypercapneic respiratory failure due to anesthesia post ERCP, post cholecystectomy admitted for weakness, diarrhea anorexia, nausea. She is asymptomatic from CV standpoint and denies chest pain, SOB, near or true syncope , palpitations, orthopnea, PND or LE edema. Previously hesitant for [facility] during discussions with nephrology, agrees to initiate HD via [facility]. - History Source History Provided By: Patient Limitations to Obtaining History: No Limitations - Past Medical History Cardio/Vascular: Yes: HTN, Hyperlipdemia, Murmur, Other (PAD) Pulmonary: Yes: Asthma, COPD Hepatobiliary: Yes: Cholelithiasis, Choledocholithiasis Renal/: Yes: Renal Inusuff Infectious Disease: Yes: Other (history of osteomyelitis in the past) Endocrine: Yes: Diabetes Mellitus - Past Surgical History Past Surgical History: Yes: Amputation (1-st R toe amputation), Bypass (Right fem pop bypass) - Alcohol/Substance Use Hx Alcohol Use: No History of Substance Use: reports: None - Smoking History Smoking history: Never smoked Have you smoked in the past 12 months: No Aproximately how many cigarettes per day: 10 If you are a former smoker, when did you quit?: 08/10/2012 - Social History Usual Living Arrangement: Alone ADL: Independent 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, 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, 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 Travel: No Home Medications - Allergies Allergies/Adverse Reactions: Allergies Allergy/AdvReac Type Severity Reaction Status Date / Time iodine Allergy Rash Verified 07/14/18 12:09 penicillin V Allergy Verified 07/14/18 12:09 shellfish derived Allergy Rash Verified 07/14/18 12:09 vancomycin Allergy Verified 07/14/18 12:09 azithromycin AdvReac Verified 07/14/18 12:09 - Home Medications Home Medications: Ambulatory Orders Ferrous Sulfate 65 mg PO BID 08/29/16 Nifedipine ER [Procardia XL -] 60 mg PO BID 08/29/16 Aspirin Coated [Ecotrin -] 81 mg PO DAILY tablet.ec 09/15/16 Glipizide 5 mg PO DAILY 06/26/17 Calcitriol [Calcitriol -] 0.25 mcg PO DAILY capsule 12/29/17 Cholestyramine/Aspartame [Questran Light Packet -] 4 gm PO BID packet 12/29/17 Ferrous Sulfate [Feosol] 325 mg PO BID ud 12/29/17 Metoprolol Tartrate [Lopressor -] 100 mg PO BID tablet 12/29/17 Alprazolam [Xanax] 0.25 mg PO BID 05/05/18 Amitriptyline HCl [Elavil -] 50 mg PO HS 05/05/18 Atorvastatin Ca [Lipitor] 10 mg PO HS 05/05/18 Furosemide [Lasix] 20 mg PO DAILY 05/05/18 Isosorbide Mononitrate [Imdur -] 30 mg PO DAILY 05/05/18 Ondansetron HCl [Zofran] 8 mg PO TID PRN 05/05/18 Acetaminophen [Tylenol .Regular Strength -] 650 mg PO Q6H PRN tablet 06/05/18 Calcium Acetate [Calphron] 667 mg PO BID 07/14/18 Docusate Sodium [Colace] 100 mg PO ASDIR PRN 07/14/18 Glipizide [Glipizide ER] 2.5 mg PO HS 07/14/18 Sodium Bicarbonate - 650 mg PO TID 07/14/18 Family Disease History - Family Disease History Family Disease History: CA: Father (lung ca), Mother (, lung ca), Sister (lung ca) Review of Systems - Review of Systems Constitutional: reports: Lethargy, Weakness Gastrointestinal: reports: Diarrhea, Nausea Vital Signs: Vital Signs Temperature 97.4 F L 07/18/18 13:00 Pulse Rate 60 07/18/18 16:20 Respiratory Rate 18 07/18/18 16:20 Blood Pressure 150/81 07/18/18 16:20 O2 Sat by Pulse Oximetry (%) 98 07/18/18 09:00 Constitutional: Yes: No Distress, Calm, Thin Neck: Yes: Supple Respiratory: Yes: Regular, CTA Bilaterally Gastrointestinal: Yes: Normal Bowel Sounds, Soft Cardiovascular: Yes: Regular Rate and Rhythm JVD: No Carotid Bruit: No Heart Sounds: Yes: S1, S2 Murmur: Yes: Systolic Murmur, Grade 1 Edema: No - Other Data Labs, Other Data: CBC, BMP 07/18/18 07:15 07/18/18 07:15 INR, PTT INR 0.93 (0.83-1.09) 07/14/18 13:50 NSR @ 74 nonspec T wave changes Imaging - Results Chest X-ray: Report Reviewed (NAD) Cat Scan: Report Reviewed (Mild chronic lung disease) Problem List - Problems (1) Renal failure, chronic Code(s): N18.9 - CHRONIC KIDNEY DISEASE, UNSPECIFIED Qualifiers: Chronic kidney disease stage: stage 5 Qualified Code(s): N18.5 - Chronic kidney disease, stage 5 (2) [id number] kidney injury Code(s): N17.9 - ACUTE KIDNEY FAILURE, UNSPECIFIED; N18.9 - CHRONIC KIDNEY DISEASE, UNSPECIFIED Qualifiers: Chronic kidney disease stage: stage 5, not on chronic dialysis (3) Anemia Code(s): D64.9 - ANEMIA, UNSPECIFIED Qualifiers: Anemia type: due to chronic kidney disease Chronic kidney disease stage: stage 5, not on chronic dialysis Qualified Code(s): N18.5 - Chronic kidney disease, stage 5; D63.1 - Anemia in chronic kidney disease (4) CAD (coronary artery disease) Code(s): I25.10 - ATHSCL HEART DISEASE OF [place] CORONARY ARTERY W/O ANG PCTRS Qualifiers: Coronary Disease-Associated Artery/Lesion type: [place] artery [place] vs. transplanted heart: [place] heart Associated angina: without angina Qualified Code(s): I25.10 - Atherosclerotic heart disease of [place] coronary artery without angina pectoris (5) COPD (chronic obstructive pulmonary disease) Code(s): J44.9 - CHRONIC OBSTRUCTIVE PULMONARY DISEASE, UNSPECIFIED (6) Hyperkalemia Code(s): E87.5 - HYPERKALEMIA (7) Hyperlipidemia associated with type 2 diabetes mellitus Code(s): E11.69 - TYPE 2 DIABETES MELLITUS WITH OTHER SPECIFIED COMPLICATION; E78.5 - HYPERLIPIDEMIA, UNSPECIFIED (8) Hypertensive heart disease Code(s): I11.9 - HYPERTENSIVE HEART DISEASE WITHOUT HEART FAILURE Qualifiers: Heart failure presence: without heart failure Qualified Code(s): I11.9 - Hypertensive heart disease without heart failure (9) Insulin dependent diabetes mellitus Code(s): E11.9 - TYPE 2 DIABETES MELLITUS WITHOUT COMPLICATIONS; Z79.4 - JAIL (CURRENT) USE OF INSULIN (10) PAD (peripheral artery disease) Code(s): I73.9 - PERIPHERAL VASCULAR DISEASE, UNSPECIFIED (11) S/P femoropopliteal bypass surgery Code(s): Z95.828 - PRESENCE OF OTHER VASCULAR IMPLANTS AND GRAFTS (12) Uncontrolled hypertension Code(s): I10 - ESSENTIAL (PRIMARY) HYPERTENSION Assessment/Plan 04/01/16 Nuc stress: Mild apical ischemia, inferoseptal ischemia LVEF 70% 06/01/2018 Echo: Normal RV and LV size and fxn, mild cLVH, mild MR, TR, AR 1. ESRD starting on HD with mild uremia and kyperkalemia 2. CAD w/ h/o subendocardial ishemia in context of 3. HTN urgency (uncontrolled due to medication non-compliance) 4. DM 5. Hypercholesterolemia 6. COPD h/o acute hypercapneic respiratory failure post ERCP related to anesthesia 7. Anemia of CKD PLAN: 1. Renal input for HD, LUE vein mapping, d/c IVF 2. Continue Lopressor 100 bid, Procardia XL 60 bid, ASA 81 qd, Lipitor 10 qd, Imdur 30 qd, holding ramipril and Lasix for now 3. Thank you for consultative opportunity
[2018-07-18] MEDS: ATORVASTATIN CA 10 MG TABLET (FP) PO SCH (21:38)
[2018-07-18] MEDS: AMITRIPTYLINE HCL 25 MG TABLET (FP) PO SCH (21:39)
[2018-07-18] MEDS ORDERED: PT OWN MED DRAWER 7, Y5N ONE (21:54)
[2018-07-19] MEDS: SODIUM BICARBONATE 650 MG TABLET PO SCH ×3 (06:39→22:12)
[2018-07-19] MEDS: FERROUS SO4 325 MG TABLET (FP) PO SCH ×2 (06:39→13:51)
[2018-07-19] MEDS: SODIUM BICARBONATE 8.4% - 75 MEQ in DEXTROSE 5%-WATER - 1,000 ML IV SCH ×3 (06:39→19:45)
[2018-07-19] MEDS: glipiZIDE 5 MG TABLET (FP) PO SCH (06:39)
--- NOTE | 2018-07-19 06:50 | PN ---
Progress Note, Physician Chief Complaint: started dialysis tolerated well has occasional nausea no other c/o - Current Medication List Current Medications: Active Medications Acetaminophen (Tylenol -) 650 mg PO Q6H PRN PRN Reason: PAIN Alprazolam (Xanax -) 0.25 mg PO Q8H PRN PRN Reason: ANXIETY Last Admin: 07/18/18 22:34 Dose: 0.25 mg Amitriptyline HCl (Elavil -) 50 mg PO HS [facility] Last Admin: 07/18/18 21:39 Dose: 50 mg Aspirin (Ecotrin -) 81 mg PO DAILY [facility] Last Admin: 07/18/18 10:02 Dose: 81 mg Atorvastatin Calcium (Lipitor -) 10 mg PO HS [facility] Last Admin: 07/18/18 21:38 Dose: 10 mg Calcitriol (Rocaltrol -) 0.25 mcg PO DAILY [facility] Last Admin: 07/18/18 10:02 Dose: 0.25 mcg Cholestyramine Resin (Questran Light Packet -) 4 gm PO BID [facility] Last Admin: 07/18/18 21:38 Dose: Not Given Docusate Sodium (Colace -) 100 mg PO HS PRN PRN Reason: CONSTIPATION Ferrous Sulfate (Feosol -) 325 mg PO BID@0600,1400 [facility] Last Admin: 07/19/18 06:39 Dose: 325 mg Glipizide (Glucotrol -) 5 mg PO DAILY@0700 [facility] Last Admin: 07/19/18 06:39 Dose: 5 mg Glipizide (Glucotrol Xl -) 2.5 mg PO DAILY@1630 [facility] Last Admin: 07/18/18 17:02 Dose: 2.5 mg Sodium Bicarbonate 75 meq/ (Dextrose) 1,075 mls @ 83 mls/hr IV Q13H [facility] Last Admin: 07/19/18 06:39 Dose: 83 mls/hr Sodium Chloride (Normal Saline -) 250 mls @ 3,000 mls/hr IV PRN PRN PRN Reason: Hypotension during Dialysis Stop: 07/19/18 20:07 Iron Sucrose 100 mg/ Sodium (Chloride) 100 mls @ 200 mls/hr IVPB ONCE ONE Stop: 07/19/18 06:29 Isosorbide Mononitrate (Imdur -) 30 mg PO DAILY [facility] Last Admin: 07/18/18 10:02 Dose: 30 mg Metoprolol Tartrate (Lopressor -) 100 mg PO BID [facility] Last Admin: 07/18/18 21:38 Dose: 100 mg Nifedipine (Procardia Xl -) 60 mg PO BID [facility] Last Admin: 07/18/18 21:38 Dose: 60 mg Ondansetron HCl (Zofran Injection) 8 mg IVPB Q8H PRN PRN Reason: NAUSEA Last Admin: 07/18/18 10:30 Dose: 8 mg Sodium Bicarbonate (Sodium Bicarbonate -) 650 mg PO TID [facility] Last Admin: 07/19/18 06:39 Dose: 650 mg - Objective Vital Signs: Vital Signs Temperature 98.4 F 07/19/18 06:00 Pulse Rate 69 07/19/18 06:00 Respiratory Rate 18 07/19/18 06:00 Blood Pressure 158/65 07/19/18 06:00 O2 Sat by Pulse Oximetry (%) 98 07/18/18 21:00 Constitutional: Yes: No Distress, Calm Eyes: Yes: Conjunctiva Clear HENT: Yes: Atraumatic Neck: Yes: Supple Cardiovascular: Yes: Regular Rate and Rhythm Respiratory: Yes: CTA Bilaterally Gastrointestinal: Yes: Soft. No: Distention Genitourinary: No: CVA Tenderness - Left, CVA Tenderness - Right, Hematuria Musculoskeletal: No: Joint Stiffness, Joint Swelling Extremities: No: Cold, Cool, Cyanosis Edema: No Integumentary: No: Rash, Venous Stasis Changes Neurological: Yes: WNL, Alert, Oriented ...Motor Strength: WNL Psychiatric: Yes: WNL, Alert, Oriented. No: Agitated, Suicidal Ideation Labs: CBC, BMP 07/18/18 07:15 07/18/18 07:15 INR, PTT INR 0.93 (0.83-1.09) 07/14/18 13:50 - ....Imaging Other: Report Reviewed Assessment/Plan t is a 82 yo F, with PMH of cholecystectomy/ERCP, HTN, NIDDM, HLD, chronic renal failure (pt refusing dialysis), chronic diarrhea, and anemia. The pt has current complaints of diarrhea, associated with nausea, decreased po intake, weight loss and general weakness. IVF f/u labs GI and renal f/u; stop smoking; NRT patch s/p permacath placement; dialysis per renal cardiology f/u falls decubs DVT pfx dw pt and staff DC planning to home with VNS, PT AND IF POSSIBLE M[employer]ION ASSESSMENT SPECIALIST when cleared by renal
[2018-07-19 10:04] LABS: HEMATOCRIT 22.8 % (32.4-45.2); MEAN CELL VOLUME 91.3 fl (80-96); PLATELET COUNT 257 K/MM3 (134-434); RDW 13.6 % (11.6-15.6)
[2018-07-19] MEDS: NIFEdipine E.R 60 MG TABLET (UD) PO SCH ×2 (10:07→22:12)
[2018-07-19] MEDS: METOPROLOL TARTRATE 50 MG TABLET (FP) PO SCH ×2 (10:07→22:12)
[2018-07-19] MEDS: ISOSORBIDE MONONITRATE 30 MG TAB.SR.24H (FP) PO SCH (10:08)
[2018-07-19 10:40] LABS: ANION GAP 9 MMOL/L (8-16); BLOOD UREA NITROGEN 22 mg/dL (7-18); CALCIUM 7.3 mg/dL (8.5-10.1); CHLORIDE 102 mmol/L (98-107); CO2 29 mmol/L (21-32); CREATININE 3.9 mg/dL (0.55-1.3); GLUCOSE,RANDOM 116 mg/dL (74-106); POTASSIUM 3.5 mmol/L (3.5-5.1); SODIUM 140 mmol/L (136-145)
[2018-07-19] MEDS ORDERED: SODIUM CHLORIDE 250 ML IV PRN (11:00)
[2018-07-19] MEDS ORDERED: IRON SUCROSE INJECTION 100 MG in SODIUM CHLORIDE 95 ML IVPB ONE (11:00)
[2018-07-19] MEDS: ASPIRIN COATED 81 MG TABLET.EC PO SCH (11:07)
[2018-07-19] MEDS: CHOLESTYRAMINE/ASPARTAME 4 GM PACKET PO SCH ×2 (11:08→22:12)
[2018-07-19] MEDS: CALCITRIOL 0.25 MCG CAPSULE (FP) PO SCH (11:08)
--- NOTE | 2018-07-19 11:19 | PN ---
Progress Note (short form) - Note Progress Note: Renal follow up for CKD Vital Signs Temperature 98.5 F 07/19/18 08:40 Pulse Rate 70 07/19/18 11:18 Respiratory Rate 18 07/19/18 11:18 Blood Pressure 180/85 H 07/19/18 11:18 O2 Sat by Pulse Oximetry (%) 98 07/18/18 21:00 Intake & Output 07/16/18 07/17/18 07/18/18 07/19/18 23:59 23:59 23:59 23:59 Intake Total 2119 1100 213 Balance 2119 1100 213 Weight 52.163 kg 52.798 kg 53.342 kg 53.025 kg CBC, BMP 07/19/18 08:45 07/19/18 08:45 Current Medications Acetaminophen (Tylenol -) 650 mg PO Q6H PRN PRN Reason: PAIN Alprazolam (Xanax -) 0.25 mg PO Q8H PRN PRN Reason: ANXIETY Last Admin: 07/18/18 22:34 Dose: 0.25 mg Amitriptyline HCl (Elavil -) 50 mg PO HS [facility] Last Admin: 07/18/18 21:39 Dose: 50 mg Aspirin (Ecotrin -) 81 mg PO DAILY [facility] Last Admin: 07/19/18 11:07 Dose: Not Given Atorvastatin Calcium (Lipitor -) 10 mg PO HS [facility] Last Admin: 07/18/18 21:38 Dose: 10 mg Calcitriol (Rocaltrol -) 0.25 mcg PO DAILY [facility] Last Admin: 07/19/18 11:08 Dose: Not Given Cholestyramine Resin (Questran Light Packet -) 4 gm PO BID [facility] Last Admin: 07/19/18 11:08 Dose: Not Given Docusate Sodium (Colace -) 100 mg PO HS PRN PRN Reason: CONSTIPATION Ferrous Sulfate (Feosol -) 325 mg PO BID@0600,1400 [facility] Last Admin: 07/19/18 06:39 Dose: 325 mg Glipizide (Glucotrol -) 5 mg PO DAILY@0700 [facility] Last Admin: 07/19/18 06:39 Dose: 5 mg Glipizide (Glucotrol Xl -) 2.5 mg PO DAILY@1630 [facility] Last Admin: 07/18/18 17:02 Dose: 2.5 mg Sodium Bicarbonate 75 meq/ (Dextrose) 1,075 mls @ 83 mls/hr IV Q13H [facility] Last Admin: 07/19/18 06:39 Dose: 83 mls/hr Iron Sucrose 100 mg/ Sodium (Chloride) 100 mls @ 200 mls/hr IVPB ONCE ONE Stop: 07/19/18 11:29 Last Admin: 07/19/18 10:10 Dose: 200 mls/hr Isosorbide Mononitrate (Imdur -) 30 mg PO DAILY [facility] Last Admin: 07/19/18 10:08 Dose: 30 mg Metoprolol Tartrate (Lopressor -) 100 mg PO BID [facility] Last Admin: 07/19/18 10:07 Dose: 100 mg Nifedipine (Procardia Xl -) 60 mg PO BID [facility] Last Admin: 07/19/18 10:07 Dose: 60 mg Ondansetron HCl (Zofran Injection) 8 mg IVPB Q8H PRN PRN Reason: NAUSEA Last Admin: 07/18/18 10:30 Dose: 8 mg Sodium Bicarbonate (Sodium Bicarbonate -) 650 mg PO TID [facility] Last Admin: 07/19/18 06:39 Dose: 650 mg 82 year old woman with hx of 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
[2018-07-19] MEDS: ALPRAZolam 0.25 MG TABLET PO PRN (12:42)
[2018-07-19] MEDS ORDERED: ONDANSETRON 4 MG TABLET PO PRN (17:35)
[2018-07-19] MEDS: glipiZIDE-XL 2.5 MG TAB.ER.24 PO SCH (18:49)
[2018-07-19] MEDS: ATORVASTATIN CA 10 MG TABLET (FP) PO SCH (22:12)
[2018-07-19] MEDS: AMITRIPTYLINE HCL 25 MG TABLET (FP) PO SCH (22:13)
[2018-07-20] MEDS: glipiZIDE 5 MG TABLET (FP) PO SCH (06:14)
[2018-07-20] MEDS: SODIUM BICARBONATE 650 MG TABLET PO SCH ×2 (06:14→16:24)
[2018-07-20] MEDS: FERROUS SO4 325 MG TABLET (FP) PO SCH ×2 (06:14→16:24)
[2018-07-20 06:59] VITALS: TEMP 98.7
--- NOTE | 2018-07-20 07:13 | PN ---
Progress Note, Physician Chief Complaint: tolerated dialysis well, but still generally weak; walked 30 feet with PT d/w pt SNF she is thinking about it versus going home BP high adjust meds per cardio d/w dr Lam will change toprol to coreg - Current Medication List Current Medications: Active Medications Acetaminophen (Tylenol -) 650 mg PO Q6H PRN PRN Reason: PAIN Alprazolam (Xanax -) 0.25 mg PO Q8H PRN PRN Reason: ANXIETY Last Admin: 07/19/18 12:42 Dose: 0.25 mg Amitriptyline HCl (Elavil -) 50 mg PO HS [facility] Last Admin: 07/19/18 22:13 Dose: 50 mg Aspirin (Ecotrin -) 81 mg PO DAILY [facility] Last Admin: 07/19/18 11:07 Dose: Not Given Atorvastatin Calcium (Lipitor -) 10 mg PO HS [facility] Last Admin: 07/19/18 22:12 Dose: 10 mg Calcitriol (Rocaltrol -) 0.25 mcg PO DAILY [facility] Last Admin: 07/19/18 11:08 Dose: Not Given Cholestyramine Resin (Questran Light Packet -) 4 gm PO BID [facility] Last Admin: 07/19/18 22:12 Dose: 4 gm Docusate Sodium (Colace -) 100 mg PO HS PRN PRN Reason: CONSTIPATION Ferrous Sulfate (Feosol -) 325 mg PO BID@0600,1400 [facility] Last Admin: 07/20/18 06:14 Dose: 325 mg Glipizide (Glucotrol -) 5 mg PO DAILY@0700 [facility] Last Admin: 07/20/18 06:14 Dose: 5 mg Glipizide (Glucotrol Xl -) 2.5 mg PO DAILY@1630 [facility] Last Admin: 07/19/18 18:49 Dose: 2.5 mg Sodium Bicarbonate 75 meq/ (Dextrose) 1,075 mls @ 83 mls/hr IV Q13H [facility] Last Admin: 07/19/18 19:45 Dose: 83 mls/hr Isosorbide Mononitrate (Imdur -) 30 mg PO DAILY [facility] Last Admin: 07/19/18 10:08 Dose: 30 mg Metoprolol Tartrate (Lopressor -) 100 mg PO BID [facility] Last Admin: 07/19/18 22:12 Dose: 100 mg Nifedipine (Procardia Xl -) 60 mg PO BID [facility] Last Admin: 07/19/18 22:12 Dose: 60 mg Ondansetron HCl (Zofran Injection) 8 mg IVPB Q8H PRN PRN Reason: NAUSEA Last Admin: 07/18/18 10:30 Dose: 8 mg Ondansetron HCl (Zofran -) 4 mg PO Q6H PRN PRN Reason: NAUSEA Sodium Bicarbonate (Sodium Bicarbonate -) 650 mg PO TID [facility] Last Admin: 07/20/18 06:14 Dose: 650 mg - Objective Vital Signs: Vital Signs Temperature 98.7 F 07/20/18 06:00 Pulse Rate 67 07/20/18 06:00 Respiratory Rate 18 07/20/18 06:00 Blood Pressure 178/68 H 07/20/18 06:00 O2 Sat by Pulse Oximetry (%) 98 07/18/18 21:00 Constitutional: Yes: No Distress, Calm Eyes: Yes: Conjunctiva Clear HENT: Yes: Atraumatic Neck: Yes: Supple Cardiovascular: Yes: Regular Rate and Rhythm Respiratory: Yes: CTA Bilaterally Gastrointestinal: Yes: Soft. No: Distention Genitourinary: No: CVA Tenderness - Left, CVA Tenderness - Right Musculoskeletal: No: Joint Stiffness, Joint Swelling Extremities: No: Cold, Cool, Cyanosis Edema: No Integumentary: No: Rash, Venous Stasis Changes Neurological: Yes: WNL, Alert, Oriented ...Motor Strength: WNL Psychiatric: Yes: WNL, Alert, Oriented. No: Agitated, Suicidal Ideation Labs: CBC, BMP 07/19/18 08:45 07/19/18 08:45 INR, PTT INR 0.93 (0.83-1.09) 07/14/18 13:50 - ....Imaging Other: Report Reviewed Assessment/Plan t is a 82 yo F, with PMH of cholecystectomy/ERCP, HTN, NIDDM, HLD, chronic renal failure (pt refusing dialysis), chronic diarrhea, and anemia. The pt has current complaints of diarrhea, associated with nausea, decreased po intake, weight loss and general weakness. IVF f/u labs GI and renal f/u; BP control coreg instaed of toprol stop smoking; NRT patch s/p permacath placement; dialysis per renal cardiology f/u falls decubs DVT pfx dw pt and staff DC planning to [place]/SNF versus home with VNS, PT AND IF POSSIBLE UR COORDINATOR when cleared by renal to have outpt HD 3 days /week per renal d/w pt and staff
[2018-07-20] MEDS: ALPRAZolam 0.25 MG TABLET PO PRN (07:58)
[2018-07-20] MEDS: METOPROLOL TARTRATE 50 MG TABLET (FP) PO SCH (09:41)
[2018-07-20] MEDS: CALCITRIOL 0.25 MCG CAPSULE (FP) PO SCH (09:42)
[2018-07-20] MEDS: ISOSORBIDE MONONITRATE 30 MG TAB.SR.24H (FP) PO SCH (09:42)
[2018-07-20] MEDS: NIFEdipine E.R 60 MG TABLET (UD) PO SCH (09:42)
[2018-07-20] MEDS: ASPIRIN COATED 81 MG TABLET.EC PO SCH (09:42)
[2018-07-20] MEDS: CHOLESTYRAMINE/ASPARTAME 4 GM PACKET PO SCH (09:42)
[2018-07-20] MEDS: SODIUM BICARBONATE 8.4% - 75 MEQ in DEXTROSE 5%-WATER - 1,000 ML IV SCH (12:50)
[2018-07-20 13:28] VITALS: BMI 19.9
--- NOTE | 2018-07-20 13:52 | PN ---
Progress Note, Physician History of Present Illness: Tolerating HD via [facility]. Denies chest pain or dyspnea, BP remains elevated. - Current Medication List Current Medications: Active Medications Acetaminophen (Tylenol -) 650 mg PO Q6H PRN PRN Reason: PAIN Amitriptyline HCl (Elavil -) 50 mg PO HS [facility] Last Admin: 07/19/18 22:13 Dose: 50 mg Aspirin (Ecotrin -) 81 mg PO DAILY [facility] Last Admin: 07/20/18 09:42 Dose: 81 mg Atorvastatin Calcium (Lipitor -) 10 mg PO HS [facility] Last Admin: 07/19/18 22:12 Dose: 10 mg Calcitriol (Rocaltrol -) 0.25 mcg PO DAILY [facility] Last Admin: 07/20/18 09:42 Dose: 0.25 mcg Cholestyramine Resin (Questran Light Packet -) 4 gm PO BID [facility] Last Admin: 07/20/18 09:42 Dose: 4 gm Docusate Sodium (Colace -) 100 mg PO HS PRN PRN Reason: CONSTIPATION Ferrous Sulfate (Feosol -) 325 mg PO BID@0600,1400 [facility] Last Admin: 07/20/18 06:14 Dose: 325 mg Glipizide (Glucotrol -) 5 mg PO DAILY@0700 [facility] Last Admin: 07/20/18 06:14 Dose: 5 mg Glipizide (Glucotrol Xl -) 2.5 mg PO DAILY@1630 [facility] Last Admin: 07/19/18 18:49 Dose: 2.5 mg Isosorbide Mononitrate (Imdur -) 30 mg PO DAILY [facility] Last Admin: 07/20/18 09:42 Dose: 30 mg Metoprolol Tartrate (Lopressor -) 100 mg PO BID [facility] Last Admin: 07/20/18 09:41 Dose: 100 mg Nifedipine (Procardia Xl -) 60 mg PO BID [facility] Last Admin: 07/20/18 09:42 Dose: 60 mg Ondansetron HCl (Zofran Injection) 8 mg IVPB Q8H PRN PRN Reason: NAUSEA Last Admin: 07/18/18 10:30 Dose: 8 mg Ondansetron HCl (Zofran -) 4 mg PO Q6H PRN PRN Reason: NAUSEA Sodium Bicarbonate (Sodium Bicarbonate -) 650 mg PO TID [facility] Last Admin: 07/20/18 06:14 Dose: 650 mg - Objective Vital Signs: Vital Signs Temperature 98.7 F 07/20/18 10:00 Pulse Rate 75 07/20/18 10:00 Respiratory Rate 18 07/20/18 10:00 Blood Pressure 181/95 H 07/20/18 10:00 O2 Sat by Pulse Oximetry (%) 98 07/18/18 21:00 Constitutional: Yes: No Distress, Calm, Thin Neck: Yes: Supple Cardiovascular: Yes: Regular Rate and Rhythm Respiratory: Yes: Regular, CTA Bilaterally Gastrointestinal: Yes: Normal Bowel Sounds, Soft Edema: No Labs: CBC, BMP 07/19/18 08:45 07/19/18 08:45 INR, PTT INR 0.93 (0.83-1.09) 07/14/18 13:50 Problem List - Problems (1) Renal failure, chronic Code(s): N18.9 - CHRONIC KIDNEY DISEASE, UNSPECIFIED Qualifiers: Chronic kidney disease stage: stage 5 Qualified Code(s): N18.5 - Chronic kidney disease, stage 5 (2) [id number] kidney injury Code(s): N17.9 - ACUTE KIDNEY FAILURE, UNSPECIFIED; N18.9 - CHRONIC KIDNEY DISEASE, UNSPECIFIED Qualifiers: Chronic kidney disease stage: stage 5, not on chronic dialysis (3) Anemia Code(s): D64.9 - ANEMIA, UNSPECIFIED Qualifiers: Anemia type: due to chronic kidney disease Chronic kidney disease stage: stage 5, not on chronic dialysis Qualified Code(s): N18.5 - Chronic kidney disease, stage 5; D63.1 - Anemia in chronic kidney disease (4) CAD (coronary artery disease) Code(s): I25.10 - ATHSCL HEART DISEASE OF [place] CORONARY ARTERY W/O ANG PCTRS Qualifiers: Coronary Disease-Associated Artery/Lesion type: [place] artery [place] vs. transplanted heart: [place] heart Associated angina: without angina Qualified Code(s): I25.10 - Atherosclerotic heart disease of [place] coronary artery without angina pectoris (5) COPD (chronic obstructive pulmonary disease) Code(s): J44.9 - CHRONIC OBSTRUCTIVE PULMONARY DISEASE, UNSPECIFIED (6) Hyperkalemia Code(s): E87.5 - HYPERKALEMIA (7) Hyperlipidemia associated with type 2 diabetes mellitus Code(s): E11.69 - TYPE 2 DIABETES MELLITUS WITH OTHER SPECIFIED COMPLICATION; E78.5 - HYPERLIPIDEMIA, UNSPECIFIED (8) Hypertensive heart disease Code(s): I11.9 - HYPERTENSIVE HEART DISEASE WITHOUT HEART FAILURE Qualifiers: Heart failure presence: without heart failure Qualified Code(s): I11.9 - Hypertensive heart disease without heart failure (9) Insulin dependent diabetes mellitus Code(s): E11.9 - TYPE 2 DIABETES MELLITUS WITHOUT COMPLICATIONS; Z79.4 - FITNESS AND WELLNESS INSTRUCTOR (CURRENT) USE OF INSULIN (10) PAD (peripheral artery disease) Code(s): I73.9 - PERIPHERAL VASCULAR DISEASE, UNSPECIFIED (11) S/P femoropopliteal bypass surgery Code(s): Z95.828 - PRESENCE OF OTHER VASCULAR IMPLANTS AND GRAFTS (12) Uncontrolled hypertension Code(s): I10 - ESSENTIAL (PRIMARY) HYPERTENSION Assessment/Plan 04/01/16 Nuc stress: Mild apical ischemia, inferoseptal ischemia LVEF 70% 06/01/2018 Echo: Normal RV and LV size and fxn, mild cLVH, mild MR, TR, AR 1. ESRD starting on HD with mild uremia and kyperkalemia 2. CAD w/ h/o subendocardial ishemia in context of 3. HTN urgency, BP uncontrolled 4. DM with nephropathy 5. Hypercholesterolemia 6. COPD h/o acute hypercapneic respiratory failure post ERCP related to anesthesia 7. Anemia of CKD PLAN: 1. Renal input for HD, LUE vein mapping 2. Change Lopressor 100 bid to carvedilol 12.5 bid with uptitration as tolerated , Procardia XL 60 bid, ASA 81 qd, Lipitor 10 qd, Imdur 30 qd, holding ramipril and Lasix for now 3. D/c planning
[2018-07-20] MEDS ORDERED: CARVEDILOL 12.5 MG TABLET (FP) PO SCH (14:01)
--- NOTE | 2018-07-20 14:52 | PN ---
Progress Note (short form) - Note Progress Note: Renal follow up for CKD Pt seen and examined at the bedside no acute complaints Vital Signs Temperature 98.5 F 07/19/18 08:40 Pulse Rate 70 07/19/18 11:18 Respiratory Rate 18 07/19/18 11:18 Blood Pressure 180/85 H 07/19/18 11:18 O2 Sat by Pulse Oximetry (%) 98 07/18/18 21:00 Intake & Output 07/16/18 07/17/18 07/18/18 07/19/18 23:59 23:59 23:59 23:59 Intake Total 2119 1100 213 Balance 2119 1100 2130 Weight 52.163 kg 52.798 kg 53.342 kg 53.025 kg NAD awake and alert neck supple, no JVD No Le edema CBC, BMP 07/19/18 08:45 07/19/18 08:45 Current Medications Acetaminophen (Tylenol -) 650 mg PO Q6H PRN PRN Reason: PAIN Alprazolam (Xanax -) 0.25 mg PO Q8H PRN PRN Reason: ANXIETY Last Admin: 07/18/18 22:34 Dose: 0.25 mg Amitriptyline HCl (Elavil -) 50 mg PO HS [facility] Last Admin: 07/18/18 21:39 Dose: 50 mg Aspirin (Ecotrin -) 81 mg PO DAILY [facility] Last Admin: 07/19/18 11:07 Dose: Not Given Atorvastatin Calcium (Lipitor -) 10 mg PO HS [facility] Last Admin: 07/18/18 21:38 Dose: 10 mg Calcitriol (Rocaltrol -) 0.25 mcg PO DAILY [facility] Last Admin: 07/19/18 11:08 Dose: Not Given Cholestyramine Resin (Questran Light Packet -) 4 gm PO BID [facility] Last Admin: 07/19/18 11:08 Dose: Not Given Docusate Sodium (Colace -) 100 mg PO HS PRN PRN Reason: CONSTIPATION Ferrous Sulfate (Feosol -) 325 mg PO BID@0600,1400 [facility] Last Admin: 07/19/18 06:39 Dose: 325 mg Glipizide (Glucotrol -) 5 mg PO DAILY@0700 [facility] Last Admin: 07/19/18 06:39 Dose: 5 mg Glipizide (Glucotrol Xl -) 2.5 mg PO DAILY@1630 [facility] Last Admin: 07/18/18 17:02 Dose: 2.5 mg Sodium Bicarbonate 75 meq/ (Dextrose) 1,075 mls @ 83 mls/hr IV Q13H [facility] Last Admin: 07/19/18 06:39 Dose: 83 mls/hr Iron Sucrose 100 mg/ Sodium (Chloride) 100 mls @ 200 mls/hr IVPB ONCE ONE Stop: 07/19/18 11:29 Last Admin: 07/19/18 10:10 Dose: 200 mls/hr Isosorbide Mononitrate (Imdur -) 30 mg PO DAILY [facility] Last Admin: 07/19/18 10:08 Dose: 30 mg Metoprolol Tartrate (Lopressor -) 100 mg PO BID [facility] Last Admin: 07/19/18 10:07 Dose: 100 mg Nifedipine (Procardia Xl -) 60 mg PO BID [facility] Last Admin: 07/19/18 10:07 Dose: 60 mg Ondansetron HCl (Zofran Injection) 8 mg IVPB Q8H PRN PRN Reason: NAUSEA Last Admin: 07/18/18 10:30 Dose: 8 mg Sodium Bicarbonate (Sodium Bicarbonate -) 650 mg PO TID [facility] Last Admin: 07/19/18 06:39 Dose: 650 mg 82 year old woman with hx of 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, next tx to be done on Monday GI follow up continue present antihypertensives Thank you Quentin Goyal DO
[2018-07-20 15:46] VITALS: BP 152/62; PULSE 68
[2018-07-20] MEDS: glipiZIDE-XL 2.5 MG TAB.ER.24 PO SCH (16:46)
--- NOTE | 2018-07-21 07:36 | DS ---
Physical Examination Vital Signs: Vital Signs Temperature 98.7 F 07/20/18 15:44 Pulse Rate 68 07/20/18 15:44 Respiratory Rate 18 07/20/18 15:44 Blood Pressure 152/62 07/20/18 15:44 O2 Sat by Pulse Oximetry (%) 98 07/18/18 21:00 Findings/Remarks: pt DC [facility] yesterday see 07/20 note (not seen today) ESRD / HD, HTN, PVD, DM; severe malnutrition f/u as advised d/w pt Labs: CBC, BMP 07/19/18 08:45 07/19/18 08:45 Discharge Summary Reason For Visit: CHRONIC RENAL FAILURE, DEHYDRATION started dyalsis Procedures: Principal: ARF/CRF seen by renal; agreed to start dialysis Other Procedures: permacath placed by surgery Hospital Course: tolerated dialysis well; BP meds adjusted; DC to SNF then f/u outpt as advised Condition: Improved - Instructions Diet, Activity, Other Instructions: Renal, ADA, Low cholesterol Referrals: Angela Barahona [Staff Physician] - (within one week from Rehab DC ) Quentin Goyal MD [Staff Physician] - (1-2 weeks from Rehab DC ) Disposition: INTERMEDIATE FACILITY - Home Medications Comprehensive Discharge Medication List: Ambulatory Orders Nifedipine ER [Procardia XL -] 60 mg PO BID 08/29/16 Aspirin Coated [Ecotrin -] 81 mg PO DAILY tablet.ec 09/15/16 Glipizide 5 mg PO DAILY 06/26/17 Calcitriol [Calcitriol -] 0.25 mcg PO DAILY capsule 12/29/17 Cholestyramine/Aspartame [Questran Light Packet -] 4 gm PO BID packet 12/29/17 Ferrous Sulfate [Feosol] 325 mg PO BID ud 12/29/17 Alprazolam [Xanax] 0.25 mg PO BID 05/05/18 Amitriptyline HCl [Elavil -] 50 mg PO HS 05/05/18 Atorvastatin Ca [Lipitor] 10 mg PO HS 05/05/18 Isosorbide Mononitrate [Imdur -] 30 mg PO DAILY 05/05/18 Acetaminophen [Tylenol .Regular Strength -] 650 mg PO Q6H PRN tablet 06/05/18 Docusate Sodium [Colace] 100 mg PO ASDIR PRN 07/14/18 Glipizide [Glipizide ER] 2.5 mg PO HS 07/14/18 Sodium Bicarbonate - 650 mg PO TID 07/14/18 Carvedilol [Coreg -] 12.5 mg PO BID tablet 07/20/18 Ondansetron [Zofran -] 4 mg PO Q6H PRN #60 tablet MDD 4 07/20/18
== END 2018-07-20 16:54 | DRG 682 ==
LOC: JER 11:37 → JERBED 16:47 → J8W 22:37
PROVIDERS: ADMIT Internal Medicine; ATTEND Internal Medicine
PROC: B518ZZA Fluoroscopy of Superior Vena Cava, Guidance (ICD-10-PCS; 2018-07-17)
PROC: 02HV33Z Insertion of Infusion Device into Superior Vena Cava, Percutaneous Approach (ICD-10-PCS; principal; 2018-07-17 08:00)
PROC: 5A1D70Z Performance of Urinary Filtration, Intermittent, Less than 6 Hours Per Day (ICD-10-PCS; 2018-07-19)
DX: I12.0 Hypertensive chronic kidney disease with stage 5 chronic kidney disease or end stage renal disease (principal); N18.6 End stage renal disease; E43 Unspecified severe protein-calorie malnutrition; E87.2 Acidosis; E11.21 Type 2 diabetes mellitus with diabetic nephropathy; E11.22 Type 2 diabetes mellitus with diabetic chronic kidney disease; R19.7 Diarrhea, unspecified; I16.0 Hypertensive urgency; Z91.15 Patient's noncompliance with renal dialysis; Z87.891 Personal history of nicotine dependence; Z89.411 Acquired absence of right great toe; Z89.421 Acquired absence of other right toe(s); J44.9 Chronic obstructive pulmonary disease, unspecified; E87.5 Hyperkalemia; Z91.14 Patient's other noncompliance with medication regimen; I73.9 Peripheral vascular disease, unspecified; E86.0 Dehydration
CPT/HCPCS: 36415; 71045-TC-FY; 71250-TC; 76000-TC-FY; 80048; 80053; 81003; 81015; 82150; 82272; 82962; 83540; 83550; 83605; 83690; 83735; 84100; 84439; 84443; 84481; 85025; 85027; 85610; 86803; 86850; 86900; 86901; 87086; 87340; 93005; 93010; 93970-TC; 94760; 97116-GP; 97161-GP; 99283-25; J0885; J1644; J1756; J7030

== ENCOUNTER 2018-08-28 09:05 | Inpatient (IN) | payer OTHER ==
--- NOTE | 2018-08-28 10:06 | HP ---
Admitting History and Physical - Primary Care Physician PCP: Angela Barahona - Admission Chief Complaint: ARF missed dyalisis x 10 days History of Present Illness: Pt. is a 83 y.o. F with extensive PMHx. including ESRD on HD, HTN, NIDDM, PVD, presents to the ER for HD. Pt. had a telephone call with her Ladle Filler, Dr. Goyal, who advised her ot come to the ED after not having Hd since 08/19/18 due to financial reasons. Pt. at this time denies any symptoms including chest pain , shortness of breath, palpitations, muscle spasms, aches or pain, or headache. History Source: Patient - Past Medical History Cardiovascular: Yes: HTN, Hyperlipdemia, Murmur, Other (PAD) Pulmonary: Yes: Asthma, COPD Hepatobiliary: Yes: Cholelithiasis, Choledocholithiasis Renal/: Yes: Renal Inusuff Heme/Onc: Yes: Anemia Infectious Disease: Yes: Other (history of osteomyelitis in the past) Endocrine: Yes: Diabetes Mellitus - Past Surgical History Past Surgical History: Yes: Amputation (1-st R toe amputation), Bypass (Right fem pop bypass) - Smoking History Smoking history: Current every day smoker Have you smoked in the past 12 months: No Aproximately how many cigarettes per day: 20 If you are a former smoker, when did you quit?: 08/10/2012 - Alcohol/Substance Use Hx Alcohol Use: No History of Substance Use: reports: None - Social History Usual Living Arrangement: Yes: Alone ADL: Independent 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, 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, 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 Travel: No Home Medications - Allergies Allergies/Adverse Reactions: Allergies Allergy/AdvReac Type Severity Reaction Status Date / Time iodine Allergy Rash Verified 08/28/18 09:24 penicillin V Allergy Verified 08/28/18 09:24 shellfish derived Allergy Rash Verified 08/28/18 09:24 vancomycin Allergy Verified 08/28/18 09:24 azithromycin AdvReac Verified 08/28/18 09:24 - Home Medications Home Medications: Ambulatory Orders Nifedipine ER [Procardia XL -] 60 mg PO BID 08/29/16 Aspirin Coated [Ecotrin -] 81 mg PO DAILY tablet.ec 09/15/16 Glipizide 5 mg PO DAILY 06/26/17 Calcitriol [Calcitriol -] 0.25 mcg PO DAILY capsule 12/29/17 Ferrous Sulfate [Feosol] 325 mg PO BID ud 12/29/17 Alprazolam [Xanax] 0.25 mg PO BID 05/05/18 Amitriptyline HCl [Elavil -] 50 mg PO HS 05/05/18 Atorvastatin Ca [Lipitor] 10 mg PO HS 05/05/18 Isosorbide Mononitrate [Imdur -] 30 mg PO DAILY 05/05/18 Acetaminophen [Tylenol .Regular Strength -] 650 mg PO Q6H PRN tablet 06/05/18 Glipizide [Glipizide ER] 2.5 mg PO HS 07/14/18 Sodium Bicarbonate - 650 mg PO TID 07/14/18 Amitriptyline HCl [Elavil -] 50 mg PO HS 08/28/18 Ondansetron [Zofran -] 8 mg PO Q6H PRN MDD 4 08/28/18 Family Disease History - Family Disease History Family Disease History: CA: Father (lung ca), Mother (, lung ca), Sister (lung ca) Review of Systems - Review of Systems Constitutional: denies: Chills, Fever Eyes: denies: Double Vision, Eye Pain HENT: denies: Difficult Swallowing, Ear Pain, Epistaxis Neck: denies: Stiffness Cardiovascular: denies: Chest Pain, Shortness of Breath Respiratory: denies: Cough, SOB Gastrointestinal: denies: Abdominal Pain, Constipation, Diarrhea, Vomiting Genitourinary: denies: Dysuria, Flank Pain Musculoskeletal: denies: Back Pain Integumentary: denies: Eczema, Rash, Wound Neurological: denies: Change in LOC, Change in Speech, Confusion, Dizziness Hematology/Lymphatic: denies: Easily Bruised, Excessive Bleeding Psychiatric: reports: Anxiety. denies: Altered Sleep Pattern, Depression, Suicidal Physical Examination Vital Signs: Vital Signs Temperature 97.6 F 08/28/18 09:15 Pulse Rate 74 08/28/18 09:15 Respiratory Rate 22 H 08/28/18 09:15 Blood Pressure 181/82 H 08/28/18 09:15 O2 Sat by Pulse Oximetry (%) 98 08/28/18 09:34 Constitutional: Yes: No Distress, Calm Eyes: Yes: Conjunctiva Clear HENT: Yes: Atraumatic Neck: Yes: Supple Cardiovascular: Yes: Regular Rate and Rhythm Respiratory: Yes: CTA Bilaterally Gastrointestinal: Yes: Soft. No: Distention Renal/: No: CVA Tenderness - Left, CVA Tenderness - Right Musculoskeletal: No: Joint Stiffness, Joint Swelling Extremities: No: Cold, Cool, Cyanosis Edema: No Integumentary: No: Rash, Venous Stasis Changes Neurological: Yes: WNL, Alert, Oriented ...Motor Strength: WNL Psychiatric: Yes: WNL, Alert, Oriented. No: Agitated, Suicidal Ideation Imaging - Results Chest X-ray: Report Reviewed Other: Report Reviewed Assessment/Plan Pt. is a 83 y.o. F with extensive PMHx. including ESRD on HD, HTN, NIDDM, PVD, presents to the ER after not having Hd since 08/19/18 due to financial reasons. admit to H dyalisis per renal vascular sx if access needed dw pt importance of compliance with meds, consults and procedures and to stop smoking falls DVT pfx d/w pt and staff
[2018-08-28 10:07] LABS: HEMATOCRIT 40.6 % (32.4-45.2); HEMOGLOBIN 13.4 GM/dL (10.7-15.3); MCH 31.4 pg (25.7-33.7); MEAN CELL VOLUME 95.3 fl (80-96); MEAN PLT VOLUME 7.8 fl (7.5-11.1); PLATELET COUNT 344 K/MM3 (134-434); RBC 4.26 M/mm3 (3.60-5.2); RDW 15.8 % (11.6-15.6); WHITE BLOOD COUNT 7.3 K/mm3 (4.0-10.0)
--- NOTE | 2018-08-28 10:14 | PDOC ---
History of Present Illness <Jabari Freyearnest Bobo - Last Filed: 08/28/18 11:11> - General History Source: Patient Exam Limitations: No Limitations - History of Present Illness Initial Comments: 08/28/18 10:10 Pt. is a 83 y.o. F with extensive PMHx. including ESRD on HD, HTN, NIDDM, PVD, presents to the ER for HD. Pt. had a telephone call with her Paper Sample Clerk, Dr. Goyal, who advised her ot come to the ED after not having Hd since 07/23/18 due to financial reasons. Pt. at this time denies any symptoms including chest pain , shortness of breath, palpitations, muscle spasms, aches or pain, or headache. EKG, CBC, CMP, and CXR ordered. Dr. Goyal consulted. Dr. Angela Barahona made aware of Pt. being admitted. 08/28/18 11:[address] Barahona and with Dr. Goyal. Pt. cleared for admission and for HD today. Dr. Goyal advised to hold off on givein D50, Insulin and albuterol for elevated Potassium. Timing/Duration: resolved prior to arrival Severity: mild Modifying Factors: worse with: other Associated Symptoms: reports: denies symptoms Aspirin Received prior to arrival: Yes: no aspirin today, 81 mg x 1 Beta Jennifer Taken at Home(Core Measure): Yes <Sukhi Barker - Last Filed: 08/28/18 11:27> - General Chief Complaint: Weakness Stated Complaint: WEAKNESS Time Seen by Provider: 08/28/18 09:19 Past History <ShanteRachael Bobo - Last Filed: 08/28/18 11:11> - Travel Traveled outside of the country in the last 30 days: No Close contact w/someone who was outside of country & ill: No - Past Medical History Anemia: Yes Asthma: Yes Cancer: No Cardiac Disorders: Yes (PAD,CAD) CVA: No COPD: Yes CHF: No DVT: No Dementia: No Diabetes: Yes GI Disorders: No Disorders: No HTN: Yes Hypercholesterolemia: Yes Liver Disease: No Seizures: No Thyroid Disease: No Other medical history: CONNER MONTEZ 06/2018 - Surgical History Abdominal Surgery: No Appendectomy: No Cardiac Surgery: Yes (FEMORAL BYPASS) Cholecystectomy: Yes Lung Surgery: No Neurologic Surgery: No Orthopedic Surgery: Yes (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) - Family Disease History Family Disease History: CA: Father (lung), Brother, Sister - Immunization History Immunization Up to Date: Yes - Suicide/Smoking/Psychosocial Hx Smoking Status: Yes Smoking History: Current every day smoker Have you smoked in the past 12 months: No Number of Cigarettes Smoked Daily: 20 If you are a former smoker, when did you quit?: 08/10/2012 Cigars Per Day: 30 Information on smoking cessation initiated: Yes 'Breaking Loose' booklet given: 12/25/17 Hx Alcohol Use: No Drug/Substance Use Hx: No Substance Use Type: None Hx Substance Use Treatment: No <Sukhi Barker - Last Filed: 08/28/18 11:27> - Past Medical History Allergies/Adverse Reactions: Allergies Allergy/AdvReac Type Severity Reaction Status Date / Time iodine Allergy Rash Verified 08/28/18 09:24 penicillin V Allergy Verified 08/28/18 09:24 shellfish derived Allergy Rash Verified 08/28/18 09:24 vancomycin Allergy Verified 08/28/18 09:24 azithromycin AdvReac Verified 08/28/18 09:24 Home Medications: Ambulatory Orders Nifedipine ER [Procardia XL -] 60 mg PO BID 08/29/16 Aspirin Coated [Ecotrin -] 81 mg PO DAILY tablet.ec 09/15/16 Glipizide 5 mg PO DAILY 06/26/17 Calcitriol [Calcitriol -] 0.25 mcg PO DAILY capsule 12/29/17 Ferrous Sulfate [Feosol] 325 mg PO BID ud 12/29/17 Alprazolam [Xanax] 0.25 mg PO BID 05/05/18 Amitriptyline HCl [Elavil -] 50 mg PO HS 05/05/18 Atorvastatin Ca [Lipitor] 10 mg PO HS 05/05/18 Isosorbide Mononitrate [Imdur -] 30 mg PO DAILY 05/05/18 Acetaminophen [Tylenol .Regular Strength -] 650 mg PO Q6H PRN tablet 06/05/18 Glipizide [Glipizide ER] 2.5 mg PO HS 07/14/18 Sodium Bicarbonate - 650 mg PO TID 07/14/18 Amitriptyline HCl [Elavil -] 50 mg PO HS 08/28/18 Ondansetron [Zofran -] 8 mg PO Q6H PRN MDD 4 08/28/18 Review of Systems - Review of Systems Constitutional: No: Symptoms Reported HEENTM: No: Symptoms Reported Respiratory: No: Symptoms reported Cardiac (ROS): No: Symptoms Reported, Chest Pain, Edema, Palpitations ABD/GI: No: Symptoms Reported : No: Symptoms Reported Musculoskeletal: Yes: Joint Pain (chronic joint pain form old age ), Joint Stiffness Integumentary: No: Symptoms Reported Neurological: No: Symptoms reported Endocrine: No: Symptoms Reported Hematologic/Lymphatic: No: Symptoms Reported <MjSukhi - Last Filed: 08/28/18 11:27> *Physical Exam - Vital Signs Last Vital Signs Temp Pulse Resp BP Pulse Ox 97.6 F 74 22 H 181/82 H 98 08/28/18 09:15 08/28/18 09:15 08/28/18 09:15 08/28/18 09:15 08/28/18 09:34 <Rachael Frey - Last Filed: 08/28/18 11:11> - Vital Signs Last Vital Signs Temp Pulse Resp BP Pulse Ox 97.6 F 74 22 H 181/82 H 98 08/28/18 09:15 08/28/18 09:15 08/28/18 09:15 08/28/18 09:15 08/28/18 09:34 - Physical Exam General Appearance: Yes: Nourished, Appropriately Dressed. No: Apparent Distress HEENT: positive: Normal ENT Inspection, Normal Voice, Symmetrical Neck: positive: Trachea midline. negative: Tender Respiratory/Chest: positive: Lungs Clear, Normal Breath Sounds. negative: Chest Tender, Respiratory Distress, Accessory Muscle Use, Labored Respiration, Crackles, Rales, Rhonchi, Wheezing Cardiovascular: positive: Regular Rhythm, Regular Rate, S1, S2, Edema. negative : JVD, Murmur Vascular Pulses: Dorsalis-Pedis (R): 2+, Doralis-Pedis (L): 2+ Gastrointestinal/Abdominal: positive: Normal Bowel Sounds, Soft. negative: Guarding, Rebound, Tenderness Rectal Exam: positive: deferred Musculoskeletal: positive: Normal Inspection. negative: CVA Tenderness, Vertebral Tenderness Extremity: positive: Normal Capillary Refill, Normal Inspection, Pelvis Stable, Pedal Edema. negative: Tender, Coldness, Swelling, Calf Tenderness Neurologic: positive: Fully Oriented, Alert, Normal Mood/Affect, Normal Response , Respond to painful stimul, Responsive <Sukhi Barker - Last Filed: 08/28/18 11:27> Moderate Sedation - Procedure Monitoring Vital Signs: Procedure Monitoring Vital Signs Temperature 97.6 F 08/28/18 09:15 Pulse Rate 74 08/28/18 09:15 Respiratory Rate 22 H 08/28/18 09:15 Blood Pressure 181/82 H 08/28/18 09:15 O2 Sat by Pulse Oximetry (%) 98 08/28/18 09:34 <Rachael Frey - Last Filed: 08/28/18 11:11> - Procedure Monitoring Vital Signs: Procedure Monitoring Vital Signs Temperature 97.6 F 08/28/18 09:15 Pulse Rate 74 08/28/18 09:15 Respiratory Rate 22 H 08/28/18 09:15 Blood Pressure 181/82 H 08/28/18 09:15 O2 Sat by Pulse Oximetry (%) 98 08/28/18 09:34 <Sukhi Barker - Last Filed: 08/28/18 11:27> ED Treatment Course - LABORATORY CBC & Chemistry Diagram: 08/28/18 09:55 08/28/18 09:55 - ADDITIONAL ORDERS Additional order review: Laboratory Results 08/28/18 09:55 Sodium 141 Potassium 5.7 H Chloride 113 H Carbon Dioxide 17 L Anion Gap 11 BUN 62 H Creatinine 6.6 H Creat Clearance w eGFR 6.03 Random Glucose 95 Calcium 7.7 L Total Bilirubin 0.2 AST 22 ALT 22 Alkaline Phosphatase 88 Total Protein 7.0 Albumin 3.0 L 08/28/18 09:55 RBC 4.26 MCV 95.3 MCHC 33.0 RDW 15.8 H D MPV 7.8 D <Rachael Frey - Last Filed: 08/28/18 11:11> - LABORATORY CBC & Chemistry Diagram: 08/28/18 09:55 08/28/18 09:55 - RADIOLOGY Radiology Studies Ordered: Category Date Time Status CHEST X-RAY PORTABLE* [RAD] Stat Radiology 08/28/18 10:04 Ordered <Sukhi Barker - Last Filed: 08/28/18 11:27> *DC/Admit/Observation/Transfer - Discharge Dispostion Decision to Admit order: Yes Decision to Admit order Date/Time: Decision to Admit Order Category Date Time Status Decision to Admit to Hospital Routine Admission 08/28/18 11:05 Active <Rachael Frey - Last Filed: 08/28/18 11:11> - Discharge Dispostion Decision to Admit order: Yes <Sukhi Barker - Last Filed: 08/28/18 11:27> Diagnosis at time of Disposition: Hyperkalemia, ESRD (end stage renal disease), Hemodialysis patient - Referrals Referrals: Angela Barahona [Primary Care Provider] - Quentin Goyal MD [Staff Physician] - - Patient Instructions - Post Discharge Activity
[2018-08-28 10:25] LABS: ALK PHOS 88 U/L (45-117); ANION GAP 11 MMOL/L (8-16); BILIRUBIN,TOTAL 0.2 mg/dL (0.2-1); BLOOD UREA NITROGEN 62 mg/dL (7-18); CALCIUM 7.7 mg/dL (8.5-10.1); CHLORIDE 113 mmol/L (98-107); CO2 17 mmol/L (21-32); CREATININE 6.6 mg/dL (0.55-1.3); GLUCOSE,RANDOM 95 mg/dL (74-106); POTASSIUM 5.7 mmol/L (3.5-5.1); SGOT/AST 22 U/L (15-37); SGPT/ALT 22 U/L (13-61); SODIUM 141 mmol/L (136-145)
[2018-08-28] MEDS ORDERED: INSULIN (NOVOLOG) ASPART 100 UNITS/ML 10ML VIAL SQ ONE (11:03)
[2018-08-28] MEDS ORDERED: DEXTROSE 50%-WATER - 25 GM/50 ML VIAL IVPUSH ONE (11:05)
[2018-08-28] MEDS ORDERED: ALBUTEROL SO4 0.083% IH SOL 2.5 MG/3 ML VIAL.NEB. NEB ONE (11:06)
--- NOTE | 2018-08-28 11:10 | PDOC ---
Attending Attestation - Resident Resident Name: Sukhi Barker - ED Attending Attestation I have performed the following: I have examined & evaluated the patient, The case was reviewed & discussed with the resident, I agree w/resident's findings & plan - [facility] HPI: 08/28/18 11:07 The patient is a 83 year old female, with a significant past medical history of ESRD (on M/W/F HD), HTN, PVD, DM, severe malnutrition, who presents to the emergency department sent by Dr. Goyal for HD today. She has missed one week of HD since 08/19/18 due to financial/transportation issues. The patient denies any complaints at this time, however, reports it has been very difficult for her to make it to hemodialysis. The patient denies chest pain, shortness of breath, headache and dizziness. The patient denies fever, chills, nausea, vomit, diarrhea and constipation. The patient denies dysuria, frequency, urgency and hematuria. Allergy: Iodine, penicillin, vancomycin, azithromycin Surgical: none Social: 1 ppd > 60 years, denies alcohol, denies recreational drugs PMD: Dr. Angela Barahona - Physicial Exam PE: 08/28/18 11:07 NAD, well appearing, MMM, nl conjunctiva, anicteric; no JVD. neck supple. right upper chest wall HD port site visualized, nontender. lungs clear, RRR, abdomen soft nontender. HORVATH x4, no focal neuro deficits. No peripheral edema. normal color for ethnicity, WWP. 08/28/18 11:11 - Medical Decision Making 08/28/18 11:06 I, Rachael Frey MD, attest that this document has been prepared under my direction and personally reviewed by me in its entirety. I further attest, that it accurately reflects all work, treatment, procedures and medical decision -making performed by me. See HPI for details Vital signs reviewed, wnl. Prior notes reviewed, including admissions, discharges and consultations. laboratory results and imaging reviewed, basic labs and lytes with mild hyper-K to 5.7, baseline ESRD. does not appear fluid overloaded, clear lungs and no distress EKG normal sinus rhythm, no interval abnormalities, narrow QRS, ST and T wave segments and morphology normal. Nonspecific T wave abnormalities ED course: will be getting HD today, called out to nephro Dr Goyal will be getting definitive elimination by HD. Admit to Dr Barahona for hyper-K but stable, social issues and arrangement of HD. pt made aware of impression and plan, agreeable. 08/28/18 11:07 08/28/18 11:12 Heart Score/ECG Review - ECG Impressions Normal ECG: No Comment:: 08/28/18 11:13 EKG normal sinus rhythm, no interval abnormalities, narrow QRS, ST and T wave segments and morphology normal. Nonspecific T wave abnormalities
[2018-08-28] MEDS ORDERED: SODIUM CHLORIDE 250 ML IV PRN (11:13)
[2018-08-28] MEDS ORDERED: SODIUM BICARBONATE 650 MG TABLET PO SCH (14:00)
[2018-08-28] MEDS ORDERED: ALTEPLASE 2 MG VIAL CVP ONE ×2 (14:15)
--- NOTE | 2018-08-28 14:32 | EKG ---
Test Reason : Blood Pressure : / mmHG Vent. Rate : 070 BPM Atrial Rate : 070 BPM P-R Int : 172 ms QRS Dur : 086 ms QT Int : 434 ms P-R-T Axes : 031 009 070 degrees QTc Int : 468 ms POOR DATA QUALITY, INTERPRETATION MAY BE ADVERSELY AFFECTED NORMAL SINUS RHYTHM MINIMAL VOLTAGE CRITERIA FOR LVH, MAY BE NORMAL VARIANT ANTEROSEPTAL INFARCT , AGE UNDETERMINED ABNORMAL ECG Confirmed by Nate Ryan MD ([id number]) on 08/28/2018 2:31:33 PM Referred By: Confirmed By:Nate Ryan MD
--- NOTE | 2018-08-28 14:37 | CONSULT ---
Consult - text type - Consultation Consultation Note: Renal Consult for ESRD on HD This is a 83 year old woman with hx of 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 Pt reports feeling fine. Said she could not get to dialysis because she could not afford to pay for the taxi. She denies any sob, cp, abd pain, fever, chills, N/V/D. Makes urine still. No PARR, confusion or lethargy. PMhx: as above Allergies: as listed in MAR Family Hx: NC Social Hx: + tobacco, no ETOH or drugs. Not working. Lives on her own. ROS: as per HPI Home Medications Medication Instructions Recorded Nifedipine ER [Procardia XL -] 60 mg PO BID 08/29/16 Aspirin Coated [Ecotrin -] 81 mg PO DAILY tablet.ec 09/15/16 Glipizide 5 mg PO DAILY 06/26/17 Calcitriol [Calcitriol -] 0.25 mcg PO DAILY capsule 12/29/17 Ferrous Sulfate [Feosol] 325 mg PO BID ud 12/29/17 Alprazolam [Xanax] 0.25 mg PO BID 05/05/18 Amitriptyline HCl [Elavil -] 50 mg PO HS 05/05/18 Atorvastatin Ca [Lipitor] 10 mg PO HS 05/05/18 Isosorbide Mononitrate [Imdur -] 30 mg PO DAILY 05/05/18 Acetaminophen [Tylenol .Regular 650 mg PO Q6H PRN tablet 06/05/18 Strength -] Glipizide [Glipizide ER] 2.5 mg PO HS 07/14/18 Sodium Bicarbonate - 650 mg PO TID 07/14/18 Amitriptyline HCl [Elavil -] 50 mg PO HS 08/28/18 Ondansetron [Zofran -] 8 mg PO Q6H PRN MDD 4 08/28/18 Vital Signs Temperature 98.3 F 08/28/18 12:02 Pulse Rate 74 08/28/18 12:02 Respiratory Rate 20 08/28/18 12:02 Blood Pressure 153/75 08/28/18 12:02 O2 Sat by Pulse Oximetry (%) 96 08/28/18 12:02 Intake & Output 08/25/18 08/26/18 08/27/1819 23:59 23:59 23:59 23:59 Weight 54.431 kg NAD awake and alert neck supple, no JVD RRR, no M/R CTA, no rales or wheeze soft NT/ND no Le edmea right IJ tunneled HD catheter CBC, BMP 08/28/18 09:55 08/28/18 09:55 Laboratory Tests 06/01/18 06/04/18 07/17/18 11:05 05:30 06:30 Calcium 7.6 L 7.2 L 7.4 L Phosphorus 5.4 H Magnesium 1.8 AST ALT Alkaline Phosphatase Albumin 2.7 L 2.7 L 07/18/18 08/28/18 07:15 09:55 Calcium 7.1 L 7.7 L Phosphorus Magnesium AST 22 ALT 22 Alkaline Phosphatase 88 Albumin 2.6 L 3.0 L CXR - no evidence of fluid overload 83 year old woman with hx of 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 #ESRD on HD with multiple missed dialysis treatments #Hyperkalemia #Metabolic acidosis #Renal Osteodystrophy #Hypertension Pt currently getting dialysis, catheter with poor flow. Will use cath-jose and reaccess. Will consult vascular surgery for catheter evalulation and possible AVF placement. Will reaccess need for additional HD tomorrow based on labs and clinical status Renal diet, 1.2L fluid restriction Start Calcitrol 0.25mcg Daily Start Losartan 50mg Daily for hypertension Continue nifedpine ER 60mg Daily Goal BP < 140/90 Will need placement in rehab/NH Will consult social work/case management Thank you Will follow Quentin Goyal DO
--- NOTE | 2018-08-28 16:36 | PN ---
Progress Note (short form) - Note Progress Note: Called by primary team for evaluation for nursing home HD access creation. Briefly, pt is an 83 y/o F w/ a PMHx of ESRD on HD via R IJ PC (Dr Nance, 06/2018) secondary to diabetic nephropathy, DM, Hypertension, Chronic diarrhea, now admitted after missing 4HD appts. Pt is R hand dominant, denies prior surgeries to LUE. Denies prior chest catheters other than current PC. On exam, pt is laying on stretcher, alert, cooperative and in NAD receiving HD via R PC. LUE with IV in place, + ecchymosis on forearm from prior phlebotomy. P: Limb alert bracelet placed on LUE, no IVS/blood draws/bp measurement Vein mapping ordered Pt currently adamantly refusing creation of permanent HD access Dr Jane aware and will discuss further with pt Will continue to follow for further planning above d/w attending Dr Jane
--- NOTE | 2018-08-28 18:35 | PN ---
Progress Note (short form) - Note Progress Note: Vascular Surgery Pt seen and examined HD unit. Pt understands why she needs avf. VEin mapping ordered. Pt willing to have avf creation prior to DC. Please take out IV from left arm, and place in right arm. We need to save the left arm Bob Jane DO
[2018-08-28 20:02] LABS: ANION GAP 9 MMOL/L (8-16); BLOOD UREA NITROGEN 14 mg/dL (7-18); CHLORIDE 100 mmol/L (98-107); CO2 31 mmol/L (21-32); CREATININE 1.8 mg/dL (0.55-1.3); GLUCOSE,RANDOM 113 mg/dL (74-106); POTASSIUM 3.2 mmol/L (3.5-5.1); SODIUM 140 mmol/L (136-145)
[2018-08-28] MEDS: glipiZIDE-XL 2.5 MG TAB.ER.24 PO SCH (21:37)
[2018-08-28] MEDS: ATORVASTATIN CA 10 MG TABLET (FP) PO SCH (21:37)
[2018-08-28] MEDS: AMITRIPTYLINE HCL 25 MG TABLET (FP) PO SCH (21:37)
[2018-08-28] MEDS: FERROUS SO4 325 MG TABLET (FP) PO SCH (21:37)
[2018-08-28] MEDS: HEPARIN NA (PORCINE) 5,000 UNITS/ML 1ML VIAL SQ SCH (21:37)
[2018-08-28] MEDS ORDERED: NIFEdipine E.R 60 MG TABLET (UD) PO SCH (22:00)
[2018-08-29] MEDS: glipiZIDE 5 MG TABLET (FP) PO SCH ×2 (06:47→06:50)
--- NOTE | 2018-08-29 07:30 | PN ---
Progress Note, Physician Chief Complaint: s/p dialysis feeling well no c.o seen by vascular sx for possible AVF - Current Medication List Current Medications: Active Medications Acetaminophen (Tylenol -) 650 mg PO Q6H PRN PRN Reason: PAIN Alprazolam (Xanax -) 0.25 mg PO BID PRN PRN Reason: ANXIETY Amitriptyline HCl (Elavil -) 50 mg PO HS [facility] Last Admin: 08/28/18 21:37 Dose: 50 mg Aspirin (Ecotrin -) 81 mg PO DAILY [facility] Atorvastatin Calcium (Lipitor -) 10 mg PO HS [facility] Last Admin: 08/28/18 21:37 Dose: 10 mg Calcitriol (Rocaltrol -) 0.25 mcg PO DAILY [facility] Ferrous Sulfate (Feosol -) 325 mg PO BID [facility] Last Admin: 08/28/18 21:37 Dose: 325 mg Glipizide (Glucotrol -) 5 mg PO AM [facility] Last Admin: 08/29/18 06:50 Dose: Not Given Glipizide (Glucotrol Xl -) 2.5 mg PO HS [facility] Last Admin: 08/28/18 21:37 Dose: 2.5 mg Heparin Sodium (Porcine) (Heparin -) 5,000 unit SQ BID [facility] Last Admin: 08/28/18 21:37 Dose: 5,000 unit Sodium Chloride (Normal Saline -) 250 mls @ 3,000 mls/hr IV PRN PRN PRN Reason: Hypotension during Dialysis Stop: 08/29/18 11:13 Isosorbide Mononitrate (Imdur -) 30 mg PO DAILY [facility] Losartan Potassium (Cozaar -) 50 mg PO DAILY [facility] Nifedipine (Procardia Xl -) 60 mg PO DAILY [facility] Ondansetron HCl (Zofran -) 8 mg PO Q6H PRN PRN Reason: NAUSEA - Objective Vital Signs: Vital Signs Temperature 98.1 F 08/29/18 07:10 Pulse Rate 78 08/29/18 07:10 Respiratory Rate 20 08/29/18 07:10 Blood Pressure 188/84 H 08/29/18 07:10 O2 Sat by Pulse Oximetry (%) 97 08/28/18 21:00 Constitutional: Yes: No Distress, Calm Eyes: Yes: Conjunctiva Clear HENT: Yes: Atraumatic Neck: Yes: Supple Cardiovascular: Yes: Regular Rate and Rhythm Respiratory: Yes: CTA Bilaterally Gastrointestinal: Yes: Soft. No: Distention Genitourinary: No: CVA Tenderness - Left, CVA Tenderness - Right, Hematuria Musculoskeletal: No: Joint Stiffness, Joint Swelling Extremities: No: Cold, Cool, Cyanosis Edema: No Integumentary: No: Rash, Venous Stasis Changes Neurological: Yes: WNL, Alert, Oriented ...Motor Strength: WNL Psychiatric: Yes: WNL, Alert, Oriented. No: Agitated, Suicidal Ideation Labs: CBC, BMP 08/28/18 09:55 08/28/18 19:15 - ....Imaging Other: Report Reviewed Assessment/Plan Pt. is a 83 y.o. F with extensive PMHx. including ESRD on HD, HTN, NIDDM, PVD, presents to the ER after not having Hd since 08/19/18 due to financial reasons. dyalisis per renal vascular sx if access needed; cardiac preop clearance e if surgery needed dw pt importance of compliance with meds, consults and procedures and to stop smoking falls DVT pfx d/w pt and staff
[2018-08-29 08:30] LABS: ANION GAP 10 MMOL/L (8-16); BLOOD UREA NITROGEN 26 mg/dL (7-18); CALCIUM 7.4 mg/dL (8.5-10.1); CHLORIDE 107 mmol/L (98-107); CO2 26 mmol/L (21-32); CREATININE 3.9 mg/dL (0.55-1.3); GLUCOSE,RANDOM 82 mg/dL (74-106); POTASSIUM 3.6 mmol/L (3.5-5.1); SODIUM 143 mmol/L (136-145)
[2018-08-29] MEDS ORDERED: PT OWN MED DRAWER 7, Y5N ONE ×2 (09:24→16:14)
[2018-08-29] MEDS: HEPARIN NA (PORCINE) 5,000 UNITS/ML 1ML VIAL SQ SCH ×2 (09:35→21:15)
[2018-08-29] MEDS: ASPIRIN COATED 81 MG TABLET.EC PO SCH (09:35)
[2018-08-29] MEDS: FERROUS SO4 325 MG TABLET (FP) PO SCH ×2 (09:35→21:15)
[2018-08-29] MEDS: CALCITRIOL 0.25 MCG CAPSULE (FP) PO SCH (09:35)
[2018-08-29] MEDS: ISOSORBIDE MONONITRATE 30 MG TAB.SR.24H (FP) PO SCH (09:35)
[2018-08-29] MEDS: LOSARTAN POTASSIUM 50 MG TABLET (FP) PO SCH (09:35)
[2018-08-29] MEDS ORDERED: NIFEdipine E.R 60 MG TABLET (UD) PO SCH (10:00)
[2018-08-29] MEDS: CHOLESTYRAMINE/ASPARTAME 4 GM PACKET PO SCH ×2 (10:52→21:14)
[2018-08-29] MEDS: ALPRAZolam 0.25 MG TABLET PO PRN (11:24)
[2018-08-29] MEDS ORDERED: CALCIUM GLUCONATE 10% - 1,000 MG/10 ML VIAL IVPB ONE (13:31)
--- NOTE | 2018-08-29 13:33 | PN ---
Progress Note (short form) - Note Progress Note: Renal follow up for ESRD on HD Pt seen and examined at the bedside no acute complaints no sob, cp, abd pain reported LE weakness and tremor Vital Signs Temperature 98.5 F 08/29/18 10:00 Pulse Rate 83 08/29/18 10:00 Respiratory Rate 20 08/29/18 10:00 Blood Pressure 181/88 H 08/29/18 10:00 O2 Sat by Pulse Oximetry (%) 93 L 08/29/18 09:00 Intake & Output 08/26/18 08/27/18 08/28/18 08/29/18 23:59 23:59 23:59 23:59 Weight 54.431 kg 48.648 kg NAD no LE edema CBC, BMP 08/28/18 09:55 08/29/18 07:00 Laboratory Tests 08/28/18 08/29/18 09:55 07:00 Calcium 7.4 L Albumin 3.0 L Current Medications Acetaminophen (Tylenol -) 650 mg PO Q6H PRN PRN Reason: PAIN Alprazolam (Xanax -) 0.25 mg PO BID PRN PRN Reason: ANXIETY Last Admin: 08/29/18 11:24 Dose: 0.25 mg Amitriptyline HCl (Elavil -) 50 mg PO HS [facility] Last Admin: 08/28/18 21:37 Dose: 50 mg Aspirin (Ecotrin -) 81 mg PO DAILY [facility] Last Admin: 08/29/18 09:35 Dose: 81 mg Atorvastatin Calcium (Lipitor -) 10 mg PO HS [facility] Last Admin: 08/28/18 21:37 Dose: 10 mg Calcitriol (Rocaltrol -) 0.25 mcg PO DAILY [facility] Last Admin: 08/29/18 09:35 Dose: 0.25 mcg Cholestyramine Resin (Questran Light Packet -) 4 gm PO BID [facility] Last Admin: 08/29/18 10:52 Dose: 4 gm Ferrous Sulfate (Feosol -) 325 mg PO BID [facility] Last Admin: 08/29/18 09:35 Dose: 325 mg Glipizide (Glucotrol -) 5 mg PO AM [facility] Last Admin: 08/29/18 06:50 Dose: Not Given Glipizide (Glucotrol Xl -) 2.5 mg PO HS [facility] Last Admin: 08/28/18 21:37 Dose: 2.5 mg Heparin Sodium (Porcine) (Heparin -) 5,000 unit SQ BID [facility] Last Admin: 08/29/18 09:35 Dose: 5,000 unit Isosorbide Mononitrate (Imdur -) 30 mg PO DAILY [facility] Last Admin: 08/29/18 09:35 Dose: 30 mg Losartan Potassium (Cozaar -) 50 mg PO DAILY [facility] Last Admin: 08/29/18 09:35 Dose: 50 mg Nifedipine (Procardia Xl -) 60 mg PO DAILY [facility] Last Admin: 08/29/18 09:35 Dose: 60 mg Ondansetron HCl (Zofran -) 8 mg PO Q6H PRN PRN Reason: NAUSEA 83 year old woman with hx of 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 #ESRD on HD with multiple missed dialysis treatments #Hyperkalemia #Metabolic acidosis #Renal Osteodystrophy #Hypertension #Hypocalcemia s/p HD yesterday, no acute need for [employer] today next dialysis tomorrow Vascular Sx to place AVF this admission Renal diet, 1.2L fluid restriction Continue Calcitrol 0.25mcg Daily Give Calcium gluconte 1g IV as pt having LE wekanesa and corrected Ca is low Continue Losartan 50mg Daily Continue nifedpine ER 60mg Daily Goal BP < 140/90 Will need placement in rehab/[place] Quentin Goyal DO
--- NOTE | 2018-08-29 16:53 | CON.CARD ---
Consult Consult Specialty:: Cardiology Referred by:: Angela Barahona MD Reason for Consultation:: Pre-operative cardiovascular evaluation - History of Present Illness Chief Complaint: HD noncompliance History of Present Illness: Patient is a 82 year old female with history of PAD S/P right fem pop bypass and toe amputations, ESRD on HD via [facility] PC secondary to diabetic nephropathy, HTN/HCVD, type 2 DM, CAD with abnl MPI, h/o hypercapneic respiratory failure due to anesthesia post ERCP, post cholecystectomy who presented to the ED following 4 missed dialysis treatments with consequent weakness and tremors. She is asymptomatic from CV standpoint and denies chest pain, SOB, near or true syncope, palpitations, orthopnea, PND or LE edema. - History Source History Provided By: Patient Limitations to Obtaining History: No Limitations - Past Medical History Cardio/Vascular: Yes: HTN, Hyperlipdemia, Murmur, Other (PAD) Pulmonary: Yes: Asthma, COPD Hepatobiliary: Yes: Cholelithiasis, Choledocholithiasis Renal/: Yes: Renal Inusuff ...: No Infectious Disease: Yes: Other (history of osteomyelitis in the past) Endocrine: Yes: Diabetes Mellitus - Past Surgical History Past Surgical History: Yes: Amputation (1-st R toe amputation), Bypass (Right fem pop bypass) - Alcohol/Substance Use Hx Alcohol Use: No History of Substance Use: reports: None - Smoking History Smoking history: Current every day smoker Have you smoked in the past 12 months: No Aproximately how many cigarettes per day: 20 If you are a former smoker, when did you quit?: 08/10/2012 - Social History Usual Living Arrangement: Alone ADL: Independent 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, 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, 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 Travel: No Home Medications - Allergies Allergies/Adverse Reactions: Allergies Allergy/AdvReac Type Severity Reaction Status Date / Time iodine Allergy Rash Verified 08/28/18 09:24 penicillin V Allergy Verified 08/28/18 09:24 shellfish derived Allergy Rash Verified 08/28/18 09:24 vancomycin Allergy Verified 08/28/18 09:24 azithromycin AdvReac Verified 08/28/18 09:24 - Home Medications Home Medications: Ambulatory Orders Nifedipine ER [Procardia XL -] 60 mg PO BID 08/29/16 Aspirin Coated [Ecotrin -] 81 mg PO DAILY tablet.ec 09/15/16 Glipizide 5 mg PO DAILY 06/26/17 Calcitriol [Calcitriol -] 0.25 mcg PO DAILY capsule 12/29/17 Ferrous Sulfate [Feosol] 325 mg PO BID ud 12/29/17 Alprazolam [Xanax] 0.25 mg PO BID 05/05/18 Amitriptyline HCl [Elavil -] 50 mg PO HS 05/05/18 Atorvastatin Ca [Lipitor] 10 mg PO HS 05/05/18 Isosorbide Mononitrate [Imdur -] 30 mg PO DAILY 05/05/18 Acetaminophen [Tylenol .Regular Strength -] 650 mg PO Q6H PRN tablet 06/05/18 Glipizide [Glipizide ER] 2.5 mg PO HS 07/14/18 Sodium Bicarbonate - 650 mg PO TID 07/14/18 Amitriptyline HCl [Elavil -] 50 mg PO HS 08/28/18 Ondansetron [Zofran -] 8 mg PO Q6H PRN MDD 4 08/28/18 Cholestyramine/Aspartame [Questran Light Packet -] 4 gm PO BID PRN 08/29/18 Family Disease History - Family Disease History Family Disease History: CA: Father (lung ca), Mother (, lung ca), Sister (lung ca) Review of Systems - Review of Systems Constitutional: reports: Loss of Appetite, Weakness Neurological: reports: Tremors Vital Signs: Vital Signs Temperature 98.1 F 08/29/18 15:34 Pulse Rate 90 08/29/18 15:34 Respiratory Rate 18 08/29/18 15:34 Blood Pressure 159/86 08/29/18 15:34 O2 Sat by Pulse Oximetry (%) 93 L 08/29/18 09:00 Constitutional: Yes: No Distress, Calm, Thin Neck: Yes: Supple Respiratory: Yes: Regular, CTA Bilaterally Gastrointestinal: Yes: Normal Bowel Sounds, Soft Cardiovascular: Yes: Regular Rate and Rhythm JVD: No Carotid Bruit: No Heart Sounds: Yes: S1, S2 Murmur: Yes: Systolic Murmur, Grade 1 Edema: No - Other Data Labs, Other Data: CBC, BMP 08/28/18 09:55 08/29/18 07:00 NSR min criteria for LVH Ejection Fraction %: LVEF > or = 40 % Imaging - Results Chest X-ray: Report Reviewed (NAD) Problem List - Problems (1) Pre-operative cardiovascular examination Code(s): Z01.810 - ENCOUNTER FOR PREPROCEDURAL CARDIOVASCULAR EXAMINATION (2) ESRD (end stage renal disease) Code(s): N18.6 - END STAGE RENAL DISEASE (3) Hemodialysis patient Code(s): Z99.2 - DEPENDENCE ON RENAL DIALYSIS (4) Anemia Code(s): D64.9 - ANEMIA, UNSPECIFIED Qualifiers: Anemia type: due to chronic kidney disease Chronic kidney disease stage: stage 5, not on chronic dialysis Qualified Code(s): N18.5 - Chronic kidney disease, stage 5; D63.1 - Anemia in chronic kidney disease (5) CAD (coronary artery disease) Code(s): I25.10 - ATHSCL HEART DISEASE OF [place] CORONARY ARTERY W/O ANG PCTRS Qualifiers: Coronary Disease-Associated Artery/Lesion type: [place] artery [place] vs. transplanted heart: [place] heart Associated angina: without angina Qualified Code(s): I25.10 - Atherosclerotic heart disease of [place] coronary artery without angina pectoris (6) Diabetes Code(s): E11.9 - TYPE 2 DIABETES MELLITUS WITHOUT COMPLICATIONS Qualifiers: Diabetes mellitus type: type 2 Diabetes mellitus complication status: with skin complications Diabetes mellitus complication detail: with foot ulcer (7) Hyperlipidemia associated with type 2 diabetes mellitus Code(s): E11.69 - TYPE 2 DIABETES MELLITUS WITH OTHER SPECIFIED COMPLICATION; E78.5 - HYPERLIPIDEMIA, UNSPECIFIED (8) Hypertensive heart disease Code(s): I11.9 - HYPERTENSIVE HEART DISEASE WITHOUT HEART FAILURE Qualifiers: Heart failure presence: without heart failure Qualified Code(s): I11.9 - Hypertensive heart disease without heart failure (9) PAD (peripheral artery disease) Code(s): I73.9 - PERIPHERAL VASCULAR DISEASE, UNSPECIFIED (10) S/P femoropopliteal bypass surgery Code(s): Z95.828 - PRESENCE OF OTHER VASCULAR IMPLANTS AND GRAFTS (11) Uncontrolled hypertension Code(s): I10 - ESSENTIAL (PRIMARY) HYPERTENSION Assessment/Plan 04/01/16 Nuc stress: Mild apical ischemia, inferoseptal ischemia LVEF 70% 06/01/2018 Echo: Normal RV and LV size and fxn, mild cLVH, mild MR, TR, AR 1. Pre-operative cardiovascular evaluation prior to LUE AVF 2. ESRD on HD with multiple missed dialysis treatments and hyperkalemia 2. CAD w/ h/o subendocardial ishemia in context of 3. HTN urgency, BP uncontrolled 4. Type 2 DM with nephropathy 5. Hypercholesterolemia 6. COPD h/o acute hypercapneic respiratory failure post ERCP related to anesthesia 7. Anemia of CKD PLAN: 1. HD per renal, LUE vein mapping, plan for LUE AVF. Given low risk stress test within 5 years and absence of symptoms of acute coronary syndrome, decompensated CHF or malignant arrhythmia, may proceed with AVF from CV- standpoint w/o further testing 2. Resume carvedilol 6.25 bid, continue Procardia XL 60 qd, ASA 81 qd, Lipitor 10 qd, Imdur 30 qd, losartan 50qd 3. Will need placement in rehab/NH 4. Thank you for consultative opportunity
[2018-08-29] MEDS: ATORVASTATIN CA 10 MG TABLET (FP) PO SCH (21:14)
[2018-08-29] MEDS: glipiZIDE-XL 2.5 MG TAB.ER.24 PO SCH (21:15)
[2018-08-29] MEDS: AMITRIPTYLINE HCL 25 MG TABLET (FP) PO SCH (21:15)
[2018-08-30] MEDS: glipiZIDE 5 MG TABLET (FP) PO SCH (06:34)
[2018-08-30 07:16] LABS: HBSAG SCREEN Negative (Negative); HEP B CORE AB, TOT Negative (Negative)
--- NOTE | 2018-08-30 08:42 | PN ---
Progress Note, Physician Chief Complaint: no CP/SOB no new c/o for AVF tomorrow d/w surgery dr Jane cleared by cardio - Current Medication List Current Medications: Active Medications Acetaminophen (Tylenol -) 650 mg PO Q6H PRN PRN Reason: PAIN Alprazolam (Xanax -) 0.25 mg PO BID PRN PRN Reason: ANXIETY Last Admin: 08/29/18 11:24 Dose: 0.25 mg Amitriptyline HCl (Elavil -) 50 mg PO HS [facility] Last Admin: 08/29/18 21:15 Dose: 50 mg Aspirin (Ecotrin -) 81 mg PO DAILY [facility] Last Admin: 08/29/18 09:35 Dose: 81 mg Atorvastatin Calcium (Lipitor -) 10 mg PO HS [facility] Last Admin: 08/29/18 21:14 Dose: 10 mg Calcitriol (Rocaltrol -) 0.25 mcg PO DAILY [facility] Last Admin: 08/29/18 09:35 Dose: 0.25 mcg Cholestyramine Resin (Questran Light Packet -) 4 gm PO BID [facility] Last Admin: 08/29/18 21:14 Dose: 4 gm Ferrous Sulfate (Feosol -) 325 mg PO BID [facility] Last Admin: 08/29/18 21:15 Dose: 325 mg Glipizide (Glucotrol -) 5 mg PO AM [facility] Last Admin: 08/30/18 06:34 Dose: 5 mg Glipizide (Glucotrol Xl -) 2.5 mg PO HS [facility] Last Admin: 08/29/18 21:15 Dose: 2.5 mg Heparin Sodium (Porcine) (Heparin -) 5,000 unit SQ BID [facility] Last Admin: 08/29/18 21:15 Dose: 5,000 unit Isosorbide Mononitrate (Imdur -) 30 mg PO DAILY [facility] Last Admin: 08/29/18 09:35 Dose: 30 mg Losartan Potassium (Cozaar -) 50 mg PO DAILY [facility] Last Admin: 08/29/18 09:35 Dose: 50 mg Nifedipine (Procardia Xl -) 90 mg PO DAILY [facility] Ondansetron HCl (Zofran -) 8 mg PO Q6H PRN PRN Reason: NAUSEA - Objective Vital Signs: Vital Signs Temperature 98.3 F 08/30/18 06:31 Pulse Rate 82 08/30/18 06:31 Respiratory Rate 20 08/30/18 06:31 Blood Pressure 187/91 H 08/30/18 06:31 O2 Sat by Pulse Oximetry (%) 93 L 08/29/18 21:00 Constitutional: Yes: No Distress, Calm Eyes: Yes: Conjunctiva Clear HENT: Yes: Atraumatic Neck: Yes: Supple Cardiovascular: Yes: Regular Rate and Rhythm Respiratory: Yes: CTA Bilaterally Gastrointestinal: Yes: Soft. No: Distention Genitourinary: No: CVA Tenderness - Left, CVA Tenderness - Right Musculoskeletal: No: Joint Stiffness, Joint Swelling Extremities: No: Cold, Cool, Cyanosis Edema: No Integumentary: No: Rash, Venous Stasis Changes Neurological: Yes: WNL, Alert, Oriented ...Motor Strength: WNL Psychiatric: Yes: WNL, Alert, Oriented. No: Agitated, Suicidal Ideation Labs: CBC, BMP 08/28/18 09:55 08/29/18 07:00 - ....Imaging Other: Report Reviewed Assessment/Plan Pt. is a 83 y.o. F with extensive PMHx. including ESRD on HD, HTN, NIDDM, PVD, presents to the ER after not having Hd since 08/19/18 due to financial reasons. dyalisis per renal vascular sx for AVF in am no absolute CI for the proposed surgery seen by cardiology dw pt importance of compliance with meds, consults and procedures and to stop smoking falls DVT pfx d/w pt and staff
[2018-08-30] MEDS ORDERED: PT OWN MED DRAWER 7, Y5N ONE (09:07)
[2018-08-30] MEDS: CALCITRIOL 0.25 MCG CAPSULE (FP) PO SCH (09:19)
[2018-08-30] MEDS: FERROUS SO4 325 MG TABLET (FP) PO SCH ×2 (09:19→22:03)
[2018-08-30] MEDS: ISOSORBIDE MONONITRATE 30 MG TAB.SR.24H (FP) PO SCH (09:19)
[2018-08-30] MEDS: LOSARTAN POTASSIUM 50 MG TABLET (FP) PO SCH (09:19)
[2018-08-30] MEDS: ASPIRIN COATED 81 MG TABLET.EC PO SCH (09:19)
[2018-08-30] MEDS: CHOLESTYRAMINE/ASPARTAME 4 GM PACKET PO SCH ×2 (09:20→22:04)
[2018-08-30] MEDS: HEPARIN NA (PORCINE) 5,000 UNITS/ML 1ML VIAL SQ SCH ×2 (09:20→22:03)
[2018-08-30] MEDS: NIFEdipine E.R. 90 MG TABLET (FP) PO SCH (09:20)
--- NOTE | 2018-08-30 10:40 | PN ---
Progress Note (short form) - Note Progress Note: Vascular Surgery For creation of left avf annalise. SMILEY past midnite Bob nichols DO
[2018-08-30] MEDS: ONDANSETRON 4 MG TABLET PO PRN (10:50)
--- NOTE | 2018-08-30 12:28 | PN ---
Progress Note, Physician History of Present Illness: BP elevated. - Current Medication List Current Medications: Active Medications Acetaminophen (Tylenol -) 650 mg PO Q6H PRN PRN Reason: PAIN Alprazolam (Xanax -) 0.25 mg PO BID PRN PRN Reason: ANXIETY Last Admin: 08/29/18 11:24 Dose: 0.25 mg Amitriptyline HCl (Elavil -) 50 mg PO HS [facility] Last Admin: 08/29/18 21:15 Dose: 50 mg Aspirin (Ecotrin -) 81 mg PO DAILY [facility] Last Admin: 08/30/18 09:19 Dose: 81 mg Atorvastatin Calcium (Lipitor -) 10 mg PO HS [facility] Last Admin: 08/29/18 21:14 Dose: 10 mg Calcitriol (Rocaltrol -) 0.25 mcg PO DAILY [facility] Last Admin: 08/30/18 09:19 Dose: 0.25 mcg Cholestyramine Resin (Questran Light Packet -) 4 gm PO BID [facility] Last Admin: 08/30/18 09:20 Dose: 4 gm Ferrous Sulfate (Feosol -) 325 mg PO BID [facility] Last Admin: 08/30/18 09:19 Dose: 325 mg Glipizide (Glucotrol -) 5 mg PO AM [facility] Last Admin: 08/30/18 06:34 Dose: 5 mg Glipizide (Glucotrol Xl -) 2.5 mg PO HS [facility] Last Admin: 08/29/18 21:15 Dose: 2.5 mg Heparin Sodium (Porcine) (Heparin -) 5,000 unit SQ BID [facility] Last Admin: 08/30/18 09:20 Dose: 5,000 unit Isosorbide Mononitrate (Imdur -) 30 mg PO DAILY [facility] Last Admin: 08/30/18 09:19 Dose: 30 mg Losartan Potassium (Cozaar -) 50 mg PO ONCE ONE Stop: 08/30/18 12:19 Losartan Potassium (Cozaar -) 100 mg PO DAILY [facility] Nifedipine (Procardia Xl -) 90 mg PO DAILY [facility] Last Admin: 08/30/18 09:20 Dose: 90 mg Ondansetron HCl (Zofran -) 8 mg PO Q6H PRN PRN Reason: NAUSEA Last Admin: 08/30/18 10:50 Dose: 8 mg - Objective Vital Signs: Vital Signs Temperature 98.3 F 08/30/18 06:31 Pulse Rate 86 08/30/18 09:17 Respiratory Rate 18 08/30/18 09:17 Blood Pressure 218/102 H 08/30/18 09:17 O2 Sat by Pulse Oximetry (%) 93 L 08/29/18 21:00 Constitutional: Yes: No Distress, Calm, Thin Neck: Yes: Supple Cardiovascular: Yes: Regular Rate and Rhythm Respiratory: Yes: Regular, Diminished Gastrointestinal: Yes: Normal Bowel Sounds, Soft Edema: No Labs: CBC, BMP 08/28/18 09:55 08/29/18 07:00 Problem List - Problems (1) Pre-operative cardiovascular examination Code(s): Z01.810 - ENCOUNTER FOR PREPROCEDURAL CARDIOVASCULAR EXAMINATION (2) ESRD (end stage renal disease) Code(s): N18.6 - END STAGE RENAL DISEASE (3) Hemodialysis patient Code(s): Z99.2 - DEPENDENCE ON RENAL DIALYSIS (4) Anemia Code(s): D64.9 - ANEMIA, UNSPECIFIED Qualifiers: Anemia type: due to chronic kidney disease Chronic kidney disease stage: stage 5, not on chronic dialysis Qualified Code(s): N18.5 - Chronic kidney disease, stage 5; D63.1 - Anemia in chronic kidney disease (5) CAD (coronary artery disease) Code(s): I25.10 - ATHSCL HEART DISEASE OF [place] CORONARY ARTERY W/O ANG PCTRS Qualifiers: Coronary Disease-Associated Artery/Lesion type: [place] artery [place] vs. transplanted heart: [place] heart Associated angina: without angina Qualified Code(s): I25.10 - Atherosclerotic heart disease of [place] coronary artery without angina pectoris (6) Diabetes Code(s): E11.9 - TYPE 2 DIABETES MELLITUS WITHOUT COMPLICATIONS Qualifiers: Diabetes mellitus type: type 2 Diabetes mellitus complication status: with skin complications Diabetes mellitus complication detail: with foot ulcer (7) Hyperlipidemia associated with type 2 diabetes mellitus Code(s): E11.69 - TYPE 2 DIABETES MELLITUS WITH OTHER SPECIFIED COMPLICATION; E78.5 - HYPERLIPIDEMIA, UNSPECIFIED (8) Hypertensive heart disease Code(s): I11.9 - HYPERTENSIVE HEART DISEASE WITHOUT HEART FAILURE Qualifiers: Heart failure presence: without heart failure Qualified Code(s): I11.9 - Hypertensive heart disease without heart failure (9) PAD (peripheral artery disease) Code(s): I73.9 - PERIPHERAL VASCULAR DISEASE, UNSPECIFIED (10) S/P femoropopliteal bypass surgery Code(s): Z95.828 - PRESENCE OF OTHER VASCULAR IMPLANTS AND GRAFTS (11) Uncontrolled hypertension Code(s): I10 - ESSENTIAL (PRIMARY) HYPERTENSION Assessment/Plan 04/01/16 Nuc stress: Mild apical ischemia, inferoseptal ischemia LVEF 70% 06/01/2018 Echo: Normal RV and LV size and fxn, mild cLVH, mild MR, TR, AR 1. Pre-operative cardiovascular evaluation prior to LUE AVF 2. ESRD on HD with multiple missed dialysis treatments and hyperkalemia 2. CAD w/ h/o subendocardial [place]hemia in context of 3. HTN urgency, BP uncontrolled 4. Type 2 DM with nephropathy 5. Hypercholesterolemia 6. COPD h/o acute hypercapneic respiratory failure post ERCP related to anesthesia 7. Anemia of CKD PLAN: 1. HD per renal, LUE vein mapping, plan for LUE AVF. Given low risk stress test within 5 years and absence of symptoms of acute coronary syndrome, decompensated CHF or malignant arrhythmia, may proceed with AVF from CV- standpoint w/o further testing 2. Resume Toprol XL 100 bid, increased Procardia XL 90 qd, ASA 81 qd, Lipitor 10 qd, Imdur 30 qd, losartan 100qd 3. Will need placement in rehab/NH
[2018-08-30] MEDS ORDERED: LOSARTAN POTASSIUM 25 MG TABLET PO ONE (13:00)
[2018-08-30] MEDS: ALPRAZolam 0.25 MG TABLET PO PRN (14:34)
[2018-08-30] MEDS ORDERED: SODIUM CHLORIDE 250 ML IV PRN (15:17)
[2018-08-30] MEDS ORDERED: HEPARIN NA (PORCINE) 5,000 UNITS/ML 1ML VIAL IVPUSH ONE (15:17)
[2018-08-30] MEDS ORDERED: HEPARIN NA (PORCINE) 5,000 UNITS/ML 1ML VIAL IVPUSH SCH (15:30)
--- NOTE | 2018-08-30 16:20 | PN ---
Progress Note (short form) - Note Progress Note: Renal follow up for ESRD on HD Pt seen and examined at the bedside had N/V this am w/o abd pain no PARR, blurry vison cp or sob BP remains elevated Vital Signs Temperature 98.4 F 08/30/18 14:29 Pulse Rate 90 08/30/18 14:29 Respiratory Rate 18 08/30/18 14:29 Blood Pressure 205/84 H 08/30/18 14:29 O2 Sat by Pulse Oximetry (%) 93 L 08/29/18 21:00 NAD no LE edema CBC, BMP 08/28/18 09:55 08/29/18 07:00 Current Medications Acetaminophen (Tylenol -) 650 mg PO Q6H PRN PRN Reason: PAIN Alprazolam (Xanax -) 0.25 mg PO BID PRN PRN Reason: ANXIETY Last Admin: 08/30/18 14:34 Dose: 0.25 mg Amitriptyline HCl (Elavil -) 50 mg PO HS [facility] Last Admin: 08/29/18 21:15 Dose: 50 mg Aspirin (Ecotrin -) 81 mg PO DAILY [facility] Last Admin: 08/30/18 09:19 Dose: 81 mg Atorvastatin Calcium (Lipitor -) 10 mg PO HS [facility] Last Admin: 08/29/18 21:14 Dose: 10 mg Calcitriol (Rocaltrol -) 0.25 mcg PO DAILY [facility] Last Admin: 08/30/18 09:19 Dose: 0.25 mcg Cholestyramine Resin (Questran Light Packet -) 4 gm PO BID [facility] Last Admin: 08/30/18 09:20 Dose: 4 gm Ferrous Sulfate (Feosol -) 325 mg PO BID [facility] Last Admin: 08/30/18 09:19 Dose: 325 mg Glipizide (Glucotrol -) 5 mg PO AM [facility] Last Admin: 08/30/18 06:34 Dose: 5 mg Glipizide (Glucotrol Xl -) 2.5 mg PO HS [facility] Last Admin: 08/29/18 21:15 Dose: 2.5 mg Heparin Sodium (Porcine) (Heparin -) 5,000 unit SQ BID [facility] Last Admin: 08/30/18 09:20 Dose: 5,000 unit Heparin Sodium (Porcine) (Heparin -) 500 unit IVPUSH ONCE ONE Stop: 08/30/18 15:18 Heparin Sodium (Porcine) (Heparin -) 300 unit IVPUSH Q1H [facility] Stop: 08/30/18 17:31 Sodium Chloride (Normal Saline -) 250 mls @ 3,000 mls/hr IV PRN PRN PRN Reason: Hypotension during Dialysis Stop: 08/31/18 15:17 Isosorbide Mononitrate (Imdur -) 30 mg PO DAILY [facility] Last Admin: 08/30/18 09:19 Dose: 30 mg Labetalol HCl (Normodyne -) 300 mg PO TID [facility] Losartan Potassium (Cozaar -) 100 mg PO DAILY [facility] Nifedipine (Procardia Xl -) 90 mg PO DAILY [facility] Last Admin: 08/30/18 09:20 Dose: 90 mg Nifedipine (Procardia Xl -) 30 mg PO DAILY@2200 [facility] Ondansetron HCl (Zofran -) 8 mg PO Q6H PRN PRN Reason: NAUSEA Last Admin: 08/30/18 10:50 Dose: 8 mg 83 year old woman with hx of 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 #ESRD on HD with multiple missed dialysis treatments #Hyperkalemia #Metabolic acidosis #Renal Osteodystrophy #Hypertension #Hypocalcemia BP remains high, will change Metoprolol to Labetalol 300mg TID Continue losartan 100mg Daily, Imdur 30mg Daily, Nifedipine 90mg, add 30mg QHS Continue Calcitroil, repeat labs with dialysis today AVF tentatively planned for tomorrow HD today for 2.5 hours Labs pending Quentin Goyal DO
[2018-08-30] MEDS: LABETALOL HCL 100 MG TABLET (FP) PO SCH ×2 (16:57→22:03)
[2018-08-30] MEDS: ATORVASTATIN CA 10 MG TABLET (FP) PO SCH (22:03)
[2018-08-30] MEDS: NIFEdipine E.R. 30 MG TABLET (FP) PO SCH (22:03)
[2018-08-30] MEDS: glipiZIDE-XL 2.5 MG TAB.ER.24 PO SCH (22:04)
[2018-08-30] MEDS: AMITRIPTYLINE HCL 25 MG TABLET (FP) PO SCH (22:04)
[2018-08-31] MEDS: LABETALOL HCL 100 MG TABLET (FP) PO SCH ×3 (06:01→22:37)
[2018-08-31] MEDS: glipiZIDE 5 MG TABLET (FP) PO SCH (06:03)
[2018-08-31 07:58] LABS: BASO % 1.1 % (0-2.0); EOS % 7.6 % (0-4.5); HEMOGLOBIN 12.5 GM/dL (10.7-15.3); LYMPH % 21.3 % (8-40); MCH 29.5 pg (25.7-33.7); MCHC 31.3 g/dl (32.0-36.0); MEAN CELL VOLUME 94.2 fl (80-96); MEAN PLT VOLUME 8.4 fl (7.5-11.1); MONO % 9.8 % (3.8-10.2); NEUT % 60.2 % (42.8-82.8); PLATELET COUNT 233 K/MM3 (134-434); RBC 4.25 M/mm3 (3.60-5.2); RDW 14.7 % (11.6-15.6); WHITE BLOOD COUNT 5.7 K/mm3 (4.0-10.0)
[2018-08-31 08:21] LABS: ANION GAP 11 MMOL/L (8-16); BLOOD UREA NITROGEN 47 mg/dL (7-18); CALCIUM 7.9 mg/dL (8.5-10.1); CHLORIDE 106 mmol/L (98-107); CO2 23 mmol/L (21-32); CREATININE 5.9 mg/dL (0.55-1.3); GLUCOSE,RANDOM 80 mg/dL (74-106); MAGNESIUM 1.9 mg/dL (1.8-2.4); POTASSIUM 4.1 mmol/L (3.5-5.1); SODIUM 140 mmol/L (136-145)
--- NOTE | 2018-08-31 08:34 | PN ---
Progress Note, Physician Chief Complaint: awaiting for dyalisis (not done yesterday) surgery for AVF postponed for now pending dyalsis - Current Medication List Current Medications: Active Medications Acetaminophen (Tylenol -) 650 mg PO Q6H PRN PRN Reason: PAIN Alprazolam (Xanax -) 0.25 mg PO BID PRN PRN Reason: ANXIETY Last Admin: 08/30/18 14:34 Dose: 0.25 mg Amitriptyline HCl (Elavil -) 50 mg PO HS [facility] Last Admin: 08/30/18 22:04 Dose: 50 mg Aspirin (Ecotrin -) 81 mg PO DAILY [facility] Last Admin: 08/30/18 09:19 Dose: 81 mg Atorvastatin Calcium (Lipitor -) 10 mg PO HS [facility] Last Admin: 08/30/18 22:03 Dose: 10 mg Calcitriol (Rocaltrol -) 0.25 mcg PO DAILY [facility] Last Admin: 08/30/18 09:19 Dose: 0.25 mcg Cholestyramine Resin (Questran Light Packet -) 4 gm PO BID [facility] Last Admin: 08/30/18 22:04 Dose: 4 gm Ferrous Sulfate (Feosol -) 325 mg PO BID [facility] Last Admin: 08/30/18 22:03 Dose: 325 mg Glipizide (Glucotrol -) 5 mg PO AM [facility] Last Admin: 08/31/18 06:03 Dose: 5 mg Glipizide (Glucotrol Xl -) 2.5 mg PO HS [facility] Last Admin: 08/30/18 22:04 Dose: 2.5 mg Heparin Sodium (Porcine) (Heparin -) 5,000 unit SQ BID [facility] Last Admin: 08/30/18 22:03 Dose: 5,000 unit Sodium Chloride (Normal Saline -) 250 mls @ 3,000 mls/hr IV PRN PRN PRN Reason: Hypotension during Dialysis Stop: 08/31/18 15:17 Isosorbide Mononitrate (Imdur -) 30 mg PO DAILY [facility] Last Admin: 08/30/18 09:19 Dose: 30 mg Labetalol HCl (Normodyne -) 300 mg PO TID [facility] Last Admin: 08/31/18 06:01 Dose: 300 mg Losartan Potassium (Cozaar -) 100 mg PO DAILY [facility] Nifedipine (Procardia Xl -) 90 mg PO DAILY [facility] Last Admin: 08/30/18 09:20 Dose: 90 mg Nifedipine (Procardia Xl -) 30 mg PO DAILY@2200 [facility] Last Admin: 08/30/18 22:03 Dose: 30 mg Ondansetron HCl (Zofran -) 8 mg PO Q6H PRN PRN Reason: NAUSEA Last Admin: 08/30/18 10:50 Dose: 8 mg - Objective Vital Signs: Vital Signs Temperature 98 F 08/31/18 06:05 Pulse Rate 74 08/31/18 06:05 Respiratory Rate 18 08/31/18 06:05 Blood Pressure 138/64 08/31/18 06:05 O2 Sat by Pulse Oximetry (%) 93 L 08/30/18 21:00 Constitutional: Yes: No Distress, Calm Eyes: Yes: Conjunctiva Clear HENT: Yes: Atraumatic Neck: Yes: Supple Cardiovascular: Yes: Regular Rate and Rhythm Respiratory: Yes: CTA Bilaterally Gastrointestinal: Yes: Soft. No: Distention Genitourinary: No: CVA Tenderness - Left, CVA Tenderness - Right Musculoskeletal: No: Joint Stiffness, Joint Swelling Extremities: No: Cold, Cool Edema: No Neurological: Yes: WNL, Alert, Oriented ...Motor Strength: WNL Psychiatric: Yes: WNL, Alert, Oriented. No: Agitated, Suicidal Ideation Labs: CBC, BMP 08/31/18 06:30 08/31/18 06:30 - ....Imaging Other: Report Reviewed Assessment/Plan Pt. is a 83 y.o. F with extensive PMHx. including ESRD on HD, HTN, NIDDM, PVD, admitted after missed dyalsis x 1 week dyalsis per renal vascular sx for AVF no absolute CI for the proposed surgery seen by cardiology dw pt importance of compliance with meds, consults and procedures and to stop smoking falls DVT pfx d/w pt and staff
[2018-08-31] MEDS: CHOLESTYRAMINE/ASPARTAME 4 GM PACKET PO SCH ×3 (08:51→22:37)
[2018-08-31] MEDS: ALPRAZolam 0.25 MG TABLET PO PRN ×2 (09:38→22:37)
[2018-08-31] MEDS: ISOSORBIDE MONONITRATE 30 MG TAB.SR.24H (FP) PO SCH (09:38)
[2018-08-31] MEDS: CALCITRIOL 0.25 MCG CAPSULE (FP) PO SCH (09:38)
[2018-08-31] MEDS: FERROUS SO4 325 MG TABLET (FP) PO SCH ×2 (09:38→22:37)
[2018-08-31] MEDS: HEPARIN NA (PORCINE) 5,000 UNITS/ML 1ML VIAL SQ SCH ×2 (09:38→22:37)
[2018-08-31] MEDS: ASPIRIN COATED 81 MG TABLET.EC PO SCH (09:38)
--- NOTE | 2018-08-31 12:48 | PN ---
Progress Note, Physician History of Present Illness: BP improved after medication adjustment. Tolerating HD. - Current Medication List Current Medications: Active Medications Acetaminophen (Tylenol -) 650 mg PO Q6H PRN PRN Reason: PAIN Alprazolam (Xanax -) 0.25 mg PO BID PRN PRN Reason: ANXIETY Last Admin: 08/31/18 09:38 Dose: 0.25 mg Amitriptyline HCl (Elavil -) 50 mg PO HS [facility] Last Admin: 08/30/18 22:04 Dose: 50 mg Aspirin (Ecotrin -) 81 mg PO DAILY [facility] Last Admin: 08/31/18 09:38 Dose: 81 mg Atorvastatin Calcium (Lipitor -) 10 mg PO HS [facility] Last Admin: 08/30/18 22:03 Dose: 10 mg Calcitriol (Rocaltrol -) 0.25 mcg PO DAILY [facility] Last Admin: 08/31/18 09:38 Dose: 0.25 mcg Cholestyramine Resin (Questran Light Packet -) 4 gm PO BID [facility] Last Admin: 08/31/18 09:39 Dose: Not Given Ferrous Sulfate (Feosol -) 325 mg PO BID [facility] Last Admin: 08/31/18 09:38 Dose: 325 mg Glipizide (Glucotrol -) 5 mg PO AM [facility] Last Admin: 08/31/18 06:03 Dose: 5 mg Glipizide (Glucotrol Xl -) 2.5 mg PO HS [facility] Last Admin: 08/30/18 22:04 Dose: 2.5 mg Heparin Sodium (Porcine) (Heparin -) 5,000 unit SQ BID [facility] Last Admin: 08/31/18 09:38 Dose: 5,000 unit Sodium Chloride (Normal Saline -) 250 mls @ 3,000 mls/hr IV PRN PRN PRN Reason: Hypotension during Dialysis Stop: 08/31/18 15:17 Isosorbide Mononitrate (Imdur -) 30 mg PO DAILY [facility] Last Admin: 08/31/18 09:38 Dose: 30 mg Labetalol HCl (Normodyne -) 300 mg PO TID [facility] Last Admin: 08/31/18 06:01 Dose: 300 mg Losartan Potassium (Cozaar -) 100 mg PO DAILY [facility] Nifedipine (Procardia Xl -) 90 mg PO DAILY [facility] Last Admin: 08/30/18 09:20 Dose: 90 mg Nifedipine (Procardia Xl -) 30 mg PO DAILY@2200 [facility] Last Admin: 08/30/18 22:03 Dose: 30 mg Ondansetron HCl (Zofran -) 8 mg PO Q6H PRN PRN Reason: NAUSEA Last Admin: 08/30/18 10:50 Dose: 8 mg - Objective Vital Signs: Vital Signs Temperature 98.6 F 08/31/18 08:47 Pulse Rate 69 08/31/18 08:47 Respiratory Rate 18 08/31/18 08:47 Blood Pressure 128/58 L 08/31/18 08:47 O2 Sat by Pulse Oximetry (%) 93 L 08/30/18 21:00 Constitutional: Yes: No Distress, Calm, Thin Neck: Yes: Supple Cardiovascular: Yes: Regular Rate and Rhythm Respiratory: Yes: Regular, CTA Bilaterally Gastrointestinal: Yes: Normal Bowel Sounds, Soft Edema: No Labs: CBC, BMP 08/31/18 06:30 08/31/18 06:30 Problem List - Problems (1) Pre-operative cardiovascular examination Code(s): Z01.810 - ENCOUNTER FOR PREPROCEDURAL CARDIOVASCULAR EXAMINATION (2) ESRD (end stage renal disease) Code(s): N18.6 - END STAGE RENAL DISEASE (3) Hemodialysis patient Code(s): Z99.2 - DEPENDENCE ON RENAL DIALYSIS (4) Anemia Code(s): D64.9 - ANEMIA, UNSPECIFIED Qualifiers: Anemia type: due to chronic kidney disease Chronic kidney disease stage: stage 5, not on chronic dialysis Qualified Code(s): N18.5 - Chronic kidney disease, stage 5; D63.1 - Anemia in chronic kidney disease (5) CAD (coronary artery disease) Code(s): I25.10 - ATHSCL HEART DISEASE OF [place] CORONARY ARTERY W/O ANG PCTRS Qualifiers: Coronary Disease-Associated Artery/Lesion type: [place] artery [place] vs. transplanted heart: [place] heart Associated angina: without angina Qualified Code(s): I25.10 - Atherosclerotic heart disease of [place] coronary artery without angina pectoris (6) Diabetes Code(s): E11.9 - TYPE 2 DIABETES MELLITUS WITHOUT COMPLICATIONS Qualifiers: Diabetes mellitus type: type 2 Diabetes mellitus complication status: with skin complications Diabetes mellitus complication detail: with foot ulcer (7) Hyperlipidemia associated with type 2 diabetes mellitus Code(s): E11.69 - TYPE 2 DIABETES MELLITUS WITH OTHER SPECIFIED COMPLICATION; E78.5 - HYPERLIPIDEMIA, UNSPECIFIED (8) Hypertensive heart disease Code(s): I11.9 - HYPERTENSIVE HEART DISEASE WITHOUT HEART FAILURE Qualifiers: Heart failure presence: without heart failure Qualified Code(s): I11.9 - Hypertensive heart disease without heart failure (9) PAD (peripheral artery disease) Code(s): I73.9 - PERIPHERAL VASCULAR DISEASE, UNSPECIFIED (10) S/P femoropopliteal bypass surgery Code(s): Z95.828 - PRESENCE OF OTHER VASCULAR IMPLANTS AND GRAFTS (11) Uncontrolled hypertension Code(s): I10 - ESSENTIAL (PRIMARY) HYPERTENSION Assessment/Plan 04/01/16 Nuc stress: Mild apical ischemia, inferoseptal ischemia LVEF 70% 06/01/2018 Echo: Normal RV and LV size and fxn, mild cLVH, mild MR, TR, AR 1. Pre-operative cardiovascular evaluation prior to LUE AVF 2. ESRD on HD with multiple missed dialysis treatments and hyperkalemia 2. CAD w/ h/o subendocardial ishemia in context of 3. HTN urgency, BP uncontrolled 4. Type 2 DM with nephropathy 5. Hypercholesterolemia 6. COPD h/o acute hypercapneic respiratory failure post ERCP related to anesthesia 7. Anemia of CKD PLAN: 1. HD per renal, LUE vein mapping, plan for LUE AVF. Given low risk stress test within 5 years and absence of symptoms of acute coronary syndrome, decompensated CHF or malignant arrhythmia, may proceed with AVF from CV- standpoint w/o further testing 2. Placed on labetolol 300 tid, increased Procardia XL 120 qd, ASA 81 qd, Lipitor 10 qd, Imdur 30 qd, losartan 100qd 3. Will need placement in rehab/NH
[2018-08-31] MEDS: NIFEdipine E.R. 90 MG TABLET (FP) PO SCH (12:50)
[2018-08-31] MEDS: LOSARTAN POTASSIUM 50 MG TABLET (FP) PO SCH (12:50)
--- NOTE | 2018-08-31 15:13 | PN ---
Progress Note (short form) - Note Progress Note: Renal follow up for ESRD on HD Pt seen and examined at the bedside no acute complaints refused AVF placement no further N/V, no PARR legs still feel weak s/p HD this am, tolerated it well Vital Signs Temperature 98.4 F 08/31/18 11:00 Pulse Rate 62 08/31/18 14:10 Respiratory Rate 18 08/31/18 14:10 Blood Pressure 158/70 08/31/18 14:10 O2 Sat by Pulse Oximetry (%) 93 L 08/30/18 21:00 NAD no LE edema CBC, BMP 08/31/18 06:30 08/31/18 06:30 Current Medications Acetaminophen (Tylenol -) 650 mg PO Q6H PRN PRN Reason: PAIN Alprazolam (Xanax -) 0.25 mg PO BID PRN PRN Reason: ANXIETY Last Admin: 08/31/18 09:38 Dose: 0.25 mg Amitriptyline HCl (Elavil -) 50 mg PO HS [facility] Last Admin: 08/30/18 22:04 Dose: 50 mg Aspirin (Ecotrin -) 81 mg PO DAILY [facility] Last Admin: 08/31/18 09:38 Dose: 81 mg Atorvastatin Calcium (Lipitor -) 10 mg PO HS [facility] Last Admin: 08/30/18 22:03 Dose: 10 mg Calcitriol (Rocaltrol -) 0.25 mcg PO DAILY [facility] Last Admin: 08/31/18 09:38 Dose: 0.25 mcg Calcium Acetate (Phoslo -) 667 mg PO TIDCM [facility] Cholestyramine Resin (Questran Light Packet -) 4 gm PO BID [facility] Last Admin: 08/31/18 09:39 Dose: Not Given Ferrous Sulfate (Feosol -) 325 mg PO BID [facility] Last Admin: 08/31/18 09:38 Dose: 325 mg Glipizide (Glucotrol -) 5 mg PO AM [facility] Last Admin: 08/31/18 06:03 Dose: 5 mg Glipizide (Glucotrol Xl -) 2.5 mg PO HS [facility] Last Admin: 08/30/18 22:04 Dose: 2.5 mg Heparin Sodium (Porcine) (Heparin -) 5,000 unit SQ BID [facility] Last Admin: 08/31/18 09:38 Dose: 5,000 unit Sodium Chloride (Normal Saline -) 250 mls @ 3,000 mls/hr IV PRN PRN PRN Reason: Hypotension during Dialysis Stop: 08/31/18 15:17 Isosorbide Mononitrate (Imdur -) 30 mg PO DAILY [facility] Last Admin: 08/31/18 09:38 Dose: 30 mg Labetalol HCl (Normodyne -) 300 mg PO TID [facility] Last Admin: 08/31/18 06:01 Dose: 300 mg Losartan Potassium (Cozaar -) 100 mg PO DAILY [facility] Last Admin: 08/31/18 12:50 Dose: Not Given Nifedipine (Procardia Xl -) 90 mg PO DAILY [facility] Last Admin: 08/31/18 12:50 Dose: Not Given Nifedipine (Procardia Xl -) 30 mg PO DAILY@2200 [facility] Last Admin: 08/30/18 22:03 Dose: 30 mg Ondansetron HCl (Zofran -) 8 mg PO Q6H PRN PRN Reason: NAUSEA Last Admin: 08/30/18 10:50 Dose: 8 mg 83 year old woman with hx of 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 #ESRD on HD with multiple missed dialysis treatments #Hyperkalemia #Metabolic acidosis #Renal Osteodystrophy #Hypertension #Hypocalcemia tolerated HD well today AVF deferred as per pt wishes BP is much better controlled now N/V resolved, may have been due to elevated BP PT eval for placement start calcium acetate 667mg with meals Quentin Goyal DO
[2018-08-31] MEDS: CALCIUM ACETATE 667 MG CAPSULE (FP) PO SCH (19:23)
[2018-08-31] MEDS: NIFEdipine E.R. 30 MG TABLET (FP) PO SCH (22:37)
[2018-08-31] MEDS: ATORVASTATIN CA 10 MG TABLET (FP) PO SCH (22:37)
[2018-08-31] MEDS: glipiZIDE-XL 2.5 MG TAB.ER.24 PO SCH (22:38)
[2018-08-31] MEDS: AMITRIPTYLINE HCL 25 MG TABLET (FP) PO SCH (22:38)
[2018-09-01] MEDS: LABETALOL HCL 100 MG TABLET (FP) PO SCH ×3 (06:32→21:15)
[2018-09-01] MEDS: glipiZIDE 5 MG TABLET (FP) PO SCH (06:33)
--- NOTE | 2018-09-01 06:34 | PN ---
Progress Note, Physician Chief Complaint: upset; had diarrhea; ordered questran bid - refused to see GI for now - Current Medication List Current Medications: Active Medications Acetaminophen (Tylenol -) 650 mg PO Q6H PRN PRN Reason: PAIN Alprazolam (Xanax -) 0.25 mg PO BID PRN PRN Reason: ANXIETY Last Admin: 08/31/18 22:37 Dose: 0.25 mg Amitriptyline HCl (Elavil -) 50 mg PO HS [facility] Last Admin: 08/31/18 22:38 Dose: 50 mg Aspirin (Ecotrin -) 81 mg PO DAILY [facility] Last Admin: 08/31/18 09:38 Dose: 81 mg Atorvastatin Calcium (Lipitor -) 10 mg PO HS [facility] Last Admin: 08/31/18 22:37 Dose: 10 mg Calcitriol (Rocaltrol -) 0.25 mcg PO DAILY [facility] Last Admin: 08/31/18 09:38 Dose: 0.25 mcg Calcium Acetate (Phoslo -) 667 mg PO TIDCM [facility] Last Admin: 08/31/18 19:23 Dose: 667 mg Cholestyramine Resin (Questran Light Packet -) 4 gm PO BID [facility] Last Admin: 08/31/18 22:37 Dose: 4 gm Ferrous Sulfate (Feosol -) 325 mg PO BID [facility] Last Admin: 08/31/18 22:37 Dose: 325 mg Glipizide (Glucotrol -) 5 mg PO AM [facility] Last Admin: 09/01/18 06:33 Dose: Not Given Glipizide (Glucotrol Xl -) 2.5 mg PO HS [facility] Last Admin: 08/31/18 22:38 Dose: 2.5 mg Heparin Sodium (Porcine) (Heparin -) 5,000 unit SQ BID [facility] Last Admin: 08/31/18 22:37 Dose: 5,000 unit Sodium Chloride (Normal Saline -) 250 mls @ 3,000 mls/hr IV PRN PRN PRN Reason: Hypotension during Dialysis Stop: 08/31/18 15:17 Isosorbide Mononitrate (Imdur -) 30 mg PO DAILY [facility] Last Admin: 08/31/18 09:38 Dose: 30 mg Labetalol HCl (Normodyne -) 300 mg PO TID [facility] Last Admin: 09/01/18 06:32 Dose: 300 mg Losartan Potassium (Cozaar -) 100 mg PO DAILY [facility] Last Admin: 08/31/18 12:50 Dose: Not Given Nifedipine (Procardia Xl -) 90 mg PO DAILY [facility] Last Admin: 08/31/18 12:50 Dose: Not Given Nifedipine (Procardia Xl -) 30 mg PO DAILY@2200 [facility] Last Admin: 08/31/18 22:37 Dose: 30 mg Ondansetron HCl (Zofran -) 8 mg PO Q6H PRN PRN Reason: NAUSEA Last Admin: 08/30/18 10:50 Dose: 8 mg - Objective Vital Signs: Vital Signs Temperature 97.9 F 09/01/18 06:00 Pulse Rate 69 09/01/18 06:00 Respiratory Rate 20 09/01/18 06:00 Blood Pressure 155/66 09/01/18 06:00 O2 Sat by Pulse Oximetry (%) 93 L 08/30/18 21:00 Constitutional: Yes: No Distress, Anxious Eyes: Yes: Conjunctiva Clear HENT: Yes: Atraumatic Neck: Yes: Supple Cardiovascular: Yes: Regular Rate and Rhythm Respiratory: Yes: CTA Bilaterally Gastrointestinal: Yes: Soft. No: Distention Genitourinary: No: CVA Tenderness - Left, CVA Tenderness - Right Musculoskeletal: No: Joint Stiffness, Joint Swelling Extremities: No: Cold, Cool, Cyanosis Edema: No Integumentary: No: Rash, Venous Stasis Changes Neurological: Yes: WNL, Alert, Oriented ...Motor Strength: WNL Psychiatric: Yes: WNL, Alert, Oriented. No: Agitated, Suicidal Ideation Labs: CBC, BMP 08/31/18 06:30 08/31/18 06:30 - ....Imaging Other: Report Reviewed Assessment/Plan Pt. is a 83 y.o. F with extensive PMHx. including ESRD on HD, HTN, NIDDM, PVD, admitted after missed dyalsis x 1 week dyalsis per renal vascular sx for AVF ; no absolute CI for the proposed surgery seen and cleared by cardiology for surgery kaiserran for diarrhea; if not better will d/w pt about GI eval dw pt importance of compliance with meds, consults and procedures and to stop smoking falls DVT pfx d/w pt and staff
[2018-09-01] MEDS: CALCIUM ACETATE 667 MG CAPSULE (FP) PO SCH ×3 (08:30→17:52)
[2018-09-01] MEDS ORDERED: PT OWN MED DRAWER 7, Y5N ONE (09:00)
[2018-09-01] MEDS: LOSARTAN POTASSIUM 50 MG TABLET (FP) PO SCH (09:04)
[2018-09-01] MEDS: ASPIRIN COATED 81 MG TABLET.EC PO SCH (09:04)
[2018-09-01] MEDS: CHOLESTYRAMINE/ASPARTAME 4 GM PACKET PO SCH ×3 (09:05→21:15)
[2018-09-01] MEDS: NIFEdipine E.R. 90 MG TABLET (FP) PO SCH (09:05)
[2018-09-01] MEDS: FERROUS SO4 325 MG TABLET (FP) PO SCH ×2 (09:05→21:14)
[2018-09-01] MEDS: CALCITRIOL 0.25 MCG CAPSULE (FP) PO SCH (09:05)
[2018-09-01] MEDS: ISOSORBIDE MONONITRATE 30 MG TAB.SR.24H (FP) PO SCH (09:05)
[2018-09-01] MEDS: HEPARIN NA (PORCINE) 5,000 UNITS/ML 1ML VIAL SQ SCH ×2 (09:06→21:15)
--- NOTE | 2018-09-01 09:10 | PN ---
Progress Note (short form) - Note Progress Note: Renal follow up for ESRD on HD Pt seen and examined at the bedside complains of diarrhea no abd pain, no sob, cp last dialysis was yesterday Vital Signs Temperature 97.9 F 09/01/18 06:00 Pulse Rate 69 09/01/18 06:00 Respiratory Rate 20 09/01/18 06:00 Blood Pressure 155/66 09/01/18 06:00 O2 Sat by Pulse Oximetry (%) 93 L 08/30/18 21:00 Vital Signs Temperature 97.9 F 09/01/18 06:00 Pulse Rate 69 09/01/18 06:00 Respiratory Rate 20 09/01/18 06:00 Blood Pressure 155/66 09/01/18 06:00 O2 Sat by Pulse Oximetry (%) 93 L 08/30/18 21:00 NAD no LE edema CBC, BMP 08/31/18 06:30 08/31/18 06:30 Current Medications Acetaminophen (Tylenol -) 650 mg PO Q6H PRN PRN Reason: PAIN Alprazolam (Xanax -) 0.25 mg PO BID PRN PRN Reason: ANXIETY Last Admin: 08/31/18 22:37 Dose: 0.25 mg Amitriptyline HCl (Elavil -) 50 mg PO HS [facility] Last Admin: 08/31/18 22:38 Dose: 50 mg Aspirin (Ecotrin -) 81 mg PO DAILY [facility] Last Admin: 09/01/18 09:04 Dose: 81 mg Atorvastatin Calcium (Lipitor -) 10 mg PO HS [facility] Last Admin: 08/31/18 22:37 Dose: 10 mg Calcitriol (Rocaltrol -) 0.25 mcg PO DAILY [facility] Last Admin: 09/01/18 09:05 Dose: 0.25 mcg Calcium Acetate (Phoslo -) 667 mg PO TIDCM [facility] Last Admin: 09/01/18 08:30 Dose: 667 mg Cholestyramine Resin (Questran Light Packet -) 4 gm PO BID [facility] Last Admin: 09/01/18 09:05 Dose: 4 gm Ferrous Sulfate (Feosol -) 325 mg PO BID [facility] Last Admin: 09/01/18 09:05 Dose: 325 mg Glipizide (Glucotrol -) 5 mg PO AM [facility] Last Admin: 09/01/18 06:33 Dose: Not Given Glipizide (Glucotrol Xl -) 2.5 mg PO HS [facility] Last Admin: 08/31/18 22:38 Dose: 2.5 mg Heparin Sodium (Porcine) (Heparin -) 5,000 unit SQ BID [facility] Last Admin: 09/01/18 09:06 Dose: 5,000 unit Sodium Chloride (Normal Saline -) 250 mls @ 3,000 mls/hr IV PRN PRN PRN Reason: Hypotension during Dialysis Stop: 08/31/18 15:17 Isosorbide Mononitrate (Imdur -) 30 mg PO DAILY [facility] Last Admin: 09/01/18 09:05 Dose: 30 mg Labetalol HCl (Normodyne -) 300 mg PO TID [facility] Last Admin: 09/01/18 06:32 Dose: 300 mg Losartan Potassium (Cozaar -) 100 mg PO DAILY [facility] Last Admin: 09/01/18 09:04 Dose: 100 mg Nifedipine (Procardia Xl -) 90 mg PO DAILY [facility] Last Admin: 09/01/18 09:05 Dose: 90 mg Nifedipine (Procardia Xl -) 30 mg PO DAILY@2200 [facility] Last Admin: 08/31/18 22:37 Dose: 30 mg Ondansetron HCl (Zofran -) 8 mg PO Q6H PRN PRN Reason: NAUSEA Last Admin: 08/30/18 10:50 Dose: 8 mg 83 year old woman with hx of 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 #ESRD on HD with multiple missed dialysis treatments #Hyperkalemia #Metabolic acidosis #Renal Osteodystrophy #Hypertension #Hypocalcemia no indication for [facility] today, next dialysis planned for Monday BP is improved, contniue nifedpine 90/30, Losartan 100mg Daily, Labetalol 300mg TID Cholestyramine for diarrhea vascular follow up regarding AVF placement outpatient placement for rehab and HD Quentin Goyal DO
--- NOTE | 2018-09-01 10:08 | PN ---
Progress Note, Physician History of Present Illness: BP improved after medication adjustment. Tolerated HD. - Current Medication List Current Medications: Active Medications Acetaminophen (Tylenol -) 650 mg PO Q6H PRN PRN Reason: PAIN Alprazolam (Xanax -) 0.25 mg PO BID PRN PRN Reason: ANXIETY Last Admin: 08/31/18 22:37 Dose: 0.25 mg Amitriptyline HCl (Elavil -) 50 mg PO HS [facility] Last Admin: 08/31/18 22:38 Dose: 50 mg Aspirin (Ecotrin -) 81 mg PO DAILY [facility] Last Admin: 09/01/18 09:04 Dose: 81 mg Atorvastatin Calcium (Lipitor -) 10 mg PO HS [facility] Last Admin: 08/31/18 22:37 Dose: 10 mg Calcitriol (Rocaltrol -) 0.25 mcg PO DAILY [facility] Last Admin: 09/01/18 09:05 Dose: 0.25 mcg Calcium Acetate (Phoslo -) 667 mg PO TIDCM [facility] Last Admin: 09/01/18 08:30 Dose: 667 mg Cholestyramine Resin (Questran Light Packet -) 4 gm PO BID [facility] Last Admin: 09/01/18 09:05 Dose: 4 gm Ferrous Sulfate (Feosol -) 325 mg PO BID [facility] Last Admin: 09/01/18 09:05 Dose: 325 mg Glipizide (Glucotrol -) 5 mg PO AM [facility] Last Admin: 09/01/18 06:33 Dose: Not Given Glipizide (Glucotrol Xl -) 2.5 mg PO HS [facility] Last Admin: 08/31/18 22:38 Dose: 2.5 mg Heparin Sodium (Porcine) (Heparin -) 5,000 unit SQ BID [facility] Last Admin: 09/01/18 09:06 Dose: 5,000 unit Sodium Chloride (Normal Saline -) 250 mls @ 3,000 mls/hr IV PRN PRN PRN Reason: Hypotension during Dialysis Stop: 08/31/18 15:17 Isosorbide Mononitrate (Imdur -) 30 mg PO DAILY [facility] Last Admin: 09/01/18 09:05 Dose: 30 mg Labetalol HCl (Normodyne -) 300 mg PO TID [facility] Last Admin: 09/01/18 06:32 Dose: 300 mg Losartan Potassium (Cozaar -) 100 mg PO DAILY [facility] Last Admin: 09/01/18 09:04 Dose: 100 mg Nifedipine (Procardia Xl -) 90 mg PO DAILY [facility] Last Admin: 09/01/18 09:05 Dose: 90 mg Nifedipine (Procardia Xl -) 30 mg PO DAILY@2200 [facility] Last Admin: 08/31/18 22:37 Dose: 30 mg Ondansetron HCl (Zofran -) 8 mg PO Q6H PRN PRN Reason: NAUSEA Last Admin: 08/30/18 10:50 Dose: 8 mg - Objective Vital Signs: Vital Signs Temperature 97.9 F 09/01/18 06:00 Pulse Rate 69 09/01/18 06:00 Respiratory Rate 20 09/01/18 06:00 Blood Pressure 155/66 09/01/18 06:00 O2 Sat by Pulse Oximetry (%) 93 L 08/30/18 21:00 Constitutional: Yes: No Distress, Calm, Thin Neck: Yes: Supple Cardiovascular: Yes: Regular Rate and Rhythm Respiratory: Yes: Regular, Diminished Gastrointestinal: Yes: Normal Bowel Sounds, Soft Edema: No Labs: CBC, BMP 08/31/18 06:30 08/31/18 06:30 Problem List - Problems (1) Pre-operative cardiovascular examination Code(s): Z01.810 - ENCOUNTER FOR PREPROCEDURAL CARDIOVASCULAR EXAMINATION (2) ESRD (end stage renal disease) Code(s): N18.6 - END STAGE RENAL DISEASE (3) Hemodialysis patient Code(s): Z99.2 - DEPENDENCE ON RENAL DIALYSIS (4) Anemia Code(s): D64.9 - ANEMIA, UNSPECIFIED Qualifiers: Anemia type: due to chronic kidney disease Chronic kidney disease stage: stage 5, not on chronic dialysis Qualified Code(s): N18.5 - Chronic kidney disease, stage 5; D63.1 - Anemia in chronic kidney disease (5) CAD (coronary artery disease) Code(s): I25.10 - ATHSCL HEART DISEASE OF [place] CORONARY ARTERY W/O ANG PCTRS Qualifiers: Coronary Disease-Associated Artery/Lesion type: [place] artery [place] vs. transplanted heart: [place] heart Associated angina: without angina Qualified Code(s): I25.10 - Atherosclerotic heart disease of [place] coronary artery without angina pectoris (6) Diabetes Code(s): E11.9 - TYPE 2 DIABETES MELLITUS WITHOUT COMPLICATIONS Qualifiers: Diabetes mellitus type: type 2 Diabetes mellitus complication status: with skin complications Diabetes mellitus complication detail: with foot ulcer (7) Hyperlipidemia associated with type 2 diabetes mellitus Code(s): E11.69 - TYPE 2 DIABETES MELLITUS WITH OTHER SPECIFIED COMPLICATION; E78.5 - HYPERLIPIDEMIA, UNSPECIFIED (8) Hypertensive heart disease Code(s): I11.9 - HYPERTENSIVE HEART DISEASE WITHOUT HEART FAILURE Qualifiers: Heart failure presence: without heart failure Qualified Code(s): I11.9 - Hypertensive heart disease without heart failure (9) PAD (peripheral artery disease) Code(s): I73.9 - PERIPHERAL VASCULAR DISEASE, UNSPECIFIED (10) S/P femoropopliteal bypass surgery Code(s): Z95.828 - PRESENCE OF OTHER VASCULAR IMPLANTS AND GRAFTS (11) Uncontrolled hypertension Code(s): I10 - ESSENTIAL (PRIMARY) HYPERTENSION Assessment/Plan 04/01/16 Nuc stress: Mild apical ischemia, inferoseptal ischemia LVEF 70% 06/01/2018 Echo: Normal RV and LV size and fxn, mild cLVH, mild MR, TR, AR 1. Pre-operative cardiovascular evaluation prior to LUE AVF 2. ESRD on HD with multiple missed dialysis treatments and hyperkalemia 3. CAD w/ h/o subendocardial ishemia in context of 4. HTN urgency, BP uncontrolled 5. Type 2 DM with nephropathy 6. Hypercholesterolemia 7. COPD h/o acute hypercapneic respiratory failure post ERCP related to anesthesia 8. Anemia of CKD PLAN: 1. HD per renal, LUE vein mapping, plan for LUE AVF. Given low risk stress test within 5 years and absence of symptoms of acute coronary syndrome, decompensated CHF or malignant arrhythmia, may proceed with AVF from CV- standpoint w/o further testing 2. Placed on labetolol 300 tid, increased Procardia XL 90/30 qd, ASA 81 qd, Lipitor 10 qd, Imdur 30 qd, losartan 100qd 3. Will need placement in rehab/NH
[2018-09-01] MEDS: ONDANSETRON 4 MG TABLET PO PRN (13:08)
[2018-09-01] MEDS: glipiZIDE-XL 2.5 MG TAB.ER.24 PO SCH (21:14)
[2018-09-01] MEDS: AMITRIPTYLINE HCL 25 MG TABLET (FP) PO SCH (21:14)
[2018-09-01] MEDS: ATORVASTATIN CA 10 MG TABLET (FP) PO SCH (21:14)
[2018-09-01] MEDS: NIFEdipine E.R. 30 MG TABLET (FP) PO SCH (21:15)
[2018-09-02] MEDS: glipiZIDE 5 MG TABLET (FP) PO SCH (05:59)
[2018-09-02] MEDS: LABETALOL HCL 100 MG TABLET (FP) PO SCH ×3 (06:00→22:57)
--- NOTE | 2018-09-02 06:11 | PN ---
Progress Note, Physician Chief Complaint: had more diarrhea yesterday, questran increased to QID; a little better today; some inguinal rash will order nystatin cream for possible AVF surgery in am if pt agrees - Current Medication List Current Medications: Active Medications Acetaminophen (Tylenol -) 650 mg PO Q6H PRN PRN Reason: PAIN Alprazolam (Xanax -) 0.25 mg PO BID PRN PRN Reason: ANXIETY Last Admin: 08/31/18 22:37 Dose: 0.25 mg Amitriptyline HCl (Elavil -) 50 mg PO HS [facility] Last Admin: 09/01/18 21:14 Dose: 50 mg Aspirin (Ecotrin -) 81 mg PO DAILY [facility] Last Admin: 09/01/18 09:04 Dose: 81 mg Atorvastatin Calcium (Lipitor -) 10 mg PO HS [facility] Last Admin: 09/01/18 21:14 Dose: 10 mg Calcitriol (Rocaltrol -) 0.25 mcg PO DAILY [facility] Last Admin: 09/01/18 09:05 Dose: 0.25 mcg Calcium Acetate (Phoslo -) 667 mg PO TIDCM [facility] Last Admin: 09/01/18 17:52 Dose: 667 mg Cholestyramine Resin (Questran Light Packet -) 4 gm PO QID [facility] Last Admin: 09/01/18 21:15 Dose: 4 gm Ferrous Sulfate (Feosol -) 325 mg PO BID [facility] Last Admin: 09/01/18 21:14 Dose: 325 mg Glipizide (Glucotrol -) 5 mg PO AM [facility] Last Admin: 09/02/18 05:59 Dose: Not Given Glipizide (Glucotrol Xl -) 2.5 mg PO HS [facility] Last Admin: 09/01/18 21:14 Dose: 2.5 mg Heparin Sodium (Porcine) (Heparin -) 5,000 unit SQ BID [facility] Last Admin: 09/01/18 21:15 Dose: 5,000 unit Sodium Chloride (Normal Saline -) 250 mls @ 3,000 mls/hr IV PRN PRN PRN Reason: Hypotension during Dialysis Stop: 08/31/18 15:17 Isosorbide Mononitrate (Imdur -) 30 mg PO DAILY [facility] Last Admin: 09/01/18 09:05 Dose: 30 mg Labetalol HCl (Normodyne -) 300 mg PO TID [facility] Last Admin: 09/02/18 06:00 Dose: 300 mg Losartan Potassium (Cozaar -) 100 mg PO DAILY [facility] Last Admin: 09/01/18 09:04 Dose: 100 mg Nifedipine (Procardia Xl -) 90 mg PO DAILY [facility] Last Admin: 09/01/18 09:05 Dose: 90 mg Nifedipine (Procardia Xl -) 30 mg PO DAILY@2200 [facility] Last Admin: 09/01/18 21:15 Dose: 30 mg Ondansetron HCl (Zofran -) 8 mg PO Q6H PRN PRN Reason: NAUSEA Last Admin: 09/01/18 13:08 Dose: 8 mg - Objective Vital Signs: Vital Signs Temperature 97.6 F 09/02/18 05:50 Pulse Rate 64 09/02/18 05:50 Respiratory Rate 20 09/02/18 05:50 Blood Pressure 137/54 L 09/02/18 05:50 O2 Sat by Pulse Oximetry (%) 93 L 09/01/18 21:00 Constitutional: Yes: No Distress, Calm Eyes: Yes: Conjunctiva Clear HENT: Yes: Atraumatic Neck: Yes: Supple Cardiovascular: Yes: Regular Rate and Rhythm Respiratory: Yes: CTA Bilaterally Gastrointestinal: Yes: Soft. No: Tenderness Genitourinary: No: CVA Tenderness - Left, CVA Tenderness - Right Musculoskeletal: No: Joint Stiffness, Joint Swelling Extremities: No: Cold, Cool, Cyanosis Edema: No Integumentary: No: Rash, Venous Stasis Changes Neurological: Yes: WNL, Alert, Oriented ...Motor Strength: WNL Psychiatric: Yes: WNL, Alert, Oriented. No: Agitated, Suicidal Ideation Labs: CBC, BMP 08/31/18 06:30 08/31/18 06:30 - ....Imaging Other: Report Reviewed Assessment/Plan Pt. is a 83 y.o. F with extensive PMHx. including ESRD on HD, HTN, NIDDM, PVD, admitted after missed dyalsis x 1 week dyalsis per renal vascular sx for AVF ; no absolute CI for the proposed surgery seen and cleared by cardiology for surgery questran for diarrhea; if not better will d/w pt about GI eval dw pt importance of compliance with meds, consults and procedures and to stop smoking falls DVT pfx d/w pt and staff
[2018-09-02] MEDS: CALCIUM ACETATE 667 MG CAPSULE (FP) PO SCH ×3 (08:33→17:12)
[2018-09-02] MEDS ORDERED: PT OWN MED DRAWER 7, Y5N ONE (09:02)
[2018-09-02] MEDS: LOSARTAN POTASSIUM 50 MG TABLET (FP) PO SCH (09:05)
[2018-09-02] MEDS: ISOSORBIDE MONONITRATE 30 MG TAB.SR.24H (FP) PO SCH (09:06)
[2018-09-02] MEDS: FERROUS SO4 325 MG TABLET (FP) PO SCH ×2 (09:06→22:57)
[2018-09-02] MEDS: NIFEdipine E.R. 90 MG TABLET (FP) PO SCH (09:06)
[2018-09-02] MEDS: ASPIRIN COATED 81 MG TABLET.EC PO SCH (09:06)
[2018-09-02] MEDS: HEPARIN NA (PORCINE) 5,000 UNITS/ML 1ML VIAL SQ SCH ×2 (09:07→22:58)
[2018-09-02] MEDS: CALCITRIOL 0.25 MCG CAPSULE (FP) PO SCH (09:07)
[2018-09-02] MEDS: CHOLESTYRAMINE/ASPARTAME 4 GM PACKET PO SCH ×4 (09:07→22:58)
[2018-09-02] MEDS: ACETAMINOPHEN 325 MG TABLET (FP) PO PRN (09:08)
[2018-09-02 09:35] LABS: BASO % 1.3 % (0-2.0); EOS % 8.8 % (0-4.5); HEMATOCRIT 38.7 % (32.4-45.2); HEMOGLOBIN 12.7 GM/dL (10.7-15.3); LYMPH % 20.8 % (8-40); MCH 31.2 pg (25.7-33.7); MCHC 32.9 g/dl (32.0-36.0); MEAN CELL VOLUME 94.9 fl (80-96); MONO % 9.5 % (3.8-10.2); NEUT % 59.6 % (42.8-82.8); PLATELET COUNT 258 K/MM3 (134-434); RBC 4.08 M/mm3 (3.60-5.2); RDW 14.8 % (11.6-15.6); WHITE BLOOD COUNT 5.4 K/mm3 (4.0-10.0)
[2018-09-02 10:21] LABS: ALBUMIN 2.7 g/dl (3.4-5.0); ALK PHOS 68 U/L (45-117); ANION GAP 11 MMOL/L (8-16); BILIRUBIN,TOTAL 0.4 mg/dL (0.2-1); BLOOD UREA NITROGEN 26 mg/dL (7-18); CALCIUM 8.6 mg/dL (8.5-10.1); CHLORIDE 107 mmol/L (98-107); CO2 24 mmol/L (21-32); CREATININE 5.2 mg/dL (0.55-1.3); GLUCOSE,RANDOM 73 mg/dL (74-106); POTASSIUM 4.7 mmol/L (3.5-5.1); SGOT/AST 16 U/L (15-37); SGPT/ALT 20 U/L (13-61); SODIUM 142 mmol/L (136-145)
[2018-09-02] MEDS: NYSTATIN 100000 UNIT/GM TOPICAL OINTMENT 15 GM TUBE TP SCH ×2 (11:40→23:03)
--- NOTE | 2018-09-02 12:46 | PN ---
Progress Note, Physician History of Present Illness: BP improved after medication adjustment. Tolerated HD. Diarrhea improved on Questran. - Current Medication List Current Medications: Active Medications Acetaminophen (Tylenol -) 650 mg PO Q6H PRN PRN Reason: PAIN Last Admin: 09/02/18 09:08 Dose: 650 mg Alprazolam (Xanax -) 0.25 mg PO BID PRN PRN Reason: ANXIETY Last Admin: 08/31/18 22:37 Dose: 0.25 mg Amitriptyline HCl (Elavil -) 50 mg PO HS [facility] Last Admin: 09/01/18 21:14 Dose: 50 mg Aspirin (Ecotrin -) 81 mg PO DAILY [facility] Last Admin: 09/02/18 09:06 Dose: 81 mg Atorvastatin Calcium (Lipitor -) 10 mg PO HS [facility] Last Admin: 09/01/18 21:14 Dose: 10 mg Calcitriol (Rocaltrol -) 0.25 mcg PO DAILY [facility] Last Admin: 09/02/18 09:07 Dose: 0.25 mcg Calcium Acetate (Phoslo -) 667 mg PO TIDCM [facility] Last Admin: 09/02/18 12:02 Dose: 667 mg Cholestyramine Resin (Questran Light Packet -) 4 gm PO QID [facility] Last Admin: 09/02/18 09:07 Dose: 4 gm Ferrous Sulfate (Feosol -) 325 mg PO BID [facility] Last Admin: 09/02/18 09:06 Dose: 325 mg Glipizide (Glucotrol -) 5 mg PO AM [facility] Last Admin: 09/02/18 05:59 Dose: Not Given Glipizide (Glucotrol Xl -) 2.5 mg PO HS [facility] Last Admin: 09/01/18 21:14 Dose: 2.5 mg Heparin Sodium (Porcine) (Heparin -) 5,000 unit SQ BID [facility] Last Admin: 09/02/18 09:07 Dose: 5,000 unit Sodium Chloride (Normal Saline -) 250 mls @ 3,000 mls/hr IV PRN PRN PRN Reason: Hypotension during Dialysis Stop: 08/31/18 15:17 Isosorbide Mononitrate (Imdur -) 30 mg PO DAILY [facility] Last Admin: 09/02/18 09:06 Dose: 30 mg Labetalol HCl (Normodyne -) 300 mg PO TID [facility] Last Admin: 09/02/18 06:00 Dose: 300 mg Losartan Potassium (Cozaar -) 100 mg PO DAILY [facility] Last Admin: 09/02/18 09:05 Dose: 100 mg Nifedipine (Procardia Xl -) 90 mg PO DAILY [facility] Last Admin: 09/02/18 09:06 Dose: 90 mg Nifedipine (Procardia Xl -) 30 mg PO DAILY@2200 [facility] Last Admin: 09/01/18 21:15 Dose: 30 mg Nystatin (Mycostatin Ointment -) 1 applic TP BID [facility] Last Admin: 09/02/18 11:40 Dose: 1 applic Ondansetron HCl (Zofran -) 8 mg PO Q6H PRN PRN Reason: NAUSEA Last Admin: 09/01/18 13:08 Dose: 8 mg - Objective Vital Signs: Vital Signs Temperature 98.1 F 09/02/18 08:00 Pulse Rate 60 09/02/18 08:00 Respiratory Rate 20 09/02/18 08:00 Blood Pressure 150/70 09/02/18 08:00 O2 Sat by Pulse Oximetry (%) 93 L 09/01/18 21:00 Constitutional: Yes: No Distress, Calm, Thin Neck: Yes: Supple Cardiovascular: Yes: Regular Rate and Rhythm Respiratory: Yes: Regular, Diminished Gastrointestinal: Yes: Normal Bowel Sounds, Soft Edema: No Labs: CBC, BMP 09/02/18 08:30 09/02/18 08:30 Problem List - Problems (1) Pre-operative cardiovascular examination Code(s): Z01.810 - ENCOUNTER FOR PREPROCEDURAL CARDIOVASCULAR EXAMINATION (2) ESRD (end stage renal disease) Code(s): N18.6 - END STAGE RENAL DISEASE (3) Hemodialysis patient Code(s): Z99.2 - DEPENDENCE ON RENAL DIALYSIS (4) Anemia Code(s): D64.9 - ANEMIA, UNSPECIFIED Qualifiers: Anemia type: due to chronic kidney disease Chronic kidney disease stage: stage 5, not on chronic dialysis Qualified Code(s): N18.5 - Chronic kidney disease, stage 5; D63.1 - Anemia in chronic kidney disease (5) CAD (coronary artery disease) Code(s): I25.10 - ATHSCL HEART DISEASE OF [place] CORONARY ARTERY W/O ANG PCTRS Qualifiers: Coronary Disease-Associated Artery/Lesion type: [place] artery [place] vs. transplanted heart: [place] heart Associated angina: without angina Qualified Code(s): I25.10 - Atherosclerotic heart disease of [place] coronary artery without angina pectoris (6) Diabetes Code(s): E11.9 - TYPE 2 DIABETES MELLITUS WITHOUT COMPLICATIONS Qualifiers: Diabetes mellitus type: type 2 Diabetes mellitus complication status: with skin complications Diabetes mellitus complication detail: with foot ulcer (7) Hyperlipidemia associated with type 2 diabetes mellitus Code(s): E11.69 - TYPE 2 DIABETES MELLITUS WITH OTHER SPECIFIED COMPLICATION; E78.5 - HYPERLIPIDEMIA, UNSPECIFIED (8) Hypertensive heart disease Code(s): I11.9 - HYPERTENSIVE HEART DISEASE WITHOUT HEART FAILURE Qualifiers: Heart failure presence: without heart failure Qualified Code(s): I11.9 - Hypertensive heart disease without heart failure (9) PAD (peripheral artery disease) Code(s): I73.9 - PERIPHERAL VASCULAR DISEASE, UNSPECIFIED (10) S/P femoropopliteal bypass surgery Code(s): Z95.828 - PRESENCE OF OTHER VASCULAR IMPLANTS AND GRAFTS (11) Uncontrolled hypertension Code(s): I10 - ESSENTIAL (PRIMARY) HYPERTENSION Assessment/Plan 04/01/16 Nuc stress: Mild apical ischemia, inferoseptal ischemia LVEF 70% 06/01/2018 Echo: Normal RV and LV size and fxn, mild cLVH, mild MR, TR, AR 1. Pre-operative cardiovascular evaluation prior to LUE AVF 2. ESRD on HD with multiple missed dialysis treatments and hyperkalemia 3. CAD w/ h/o subendocardial ishemia in context of 4. HTN urgency, BP uncontrolled 5. Type 2 DM with nephropathy 6. Hypercholesterolemia 7. COPD h/o acute hypercapneic respiratory failure post ERCP related to anesthesia 8. Anemia of CKD 9. Diarrhea PLAN: 1. HD per renal, LUE vein mapping, plan for LUE AVF. Given low risk stress test within 5 years and absence of symptoms of acute coronary syndrome, decompensated CHF or malignant arrhythmia, may proceed with AVF from CV- standpoint w/o further testing 2. Placed on labetolol 300 tid, increased Procardia XL 90/30 qd, ASA 81 qd, Lipitor 10 qd, Imdur 30 qd, losartan 100qd 3. Will need placement in rehab/NH
[2018-09-02] MEDS: ALPRAZolam 0.25 MG TABLET PO PRN (18:28)
[2018-09-02] MEDS: ATORVASTATIN CA 10 MG TABLET (FP) PO SCH (22:57)
[2018-09-02] MEDS: NIFEdipine E.R. 30 MG TABLET (FP) PO SCH (22:57)
[2018-09-02] MEDS: glipiZIDE-XL 2.5 MG TAB.ER.24 PO SCH (22:57)
[2018-09-02] MEDS: AMITRIPTYLINE HCL 25 MG TABLET (FP) PO SCH (22:58)
[2018-09-03] MEDS: glipiZIDE 5 MG TABLET (FP) PO SCH (06:43)
[2018-09-03] MEDS: LABETALOL HCL 100 MG TABLET (FP) PO SCH ×3 (06:43→21:02)
--- NOTE | 2018-09-03 06:47 | PN ---
Progress Note, Physician Chief Complaint: still with diarrhea no abdominal pain; for HD today and AVF tomorrow pt agreed - Current Medication List Current Medications: Active Medications Acetaminophen (Tylenol -) 650 mg PO Q6H PRN PRN Reason: PAIN Last Admin: 09/02/18 09:08 Dose: 650 mg Alprazolam (Xanax -) 0.25 mg PO BID PRN PRN Reason: ANXIETY Last Admin: 09/02/18 18:28 Dose: 0.25 mg Amitriptyline HCl (Elavil -) 50 mg PO HS [facility] Last Admin: 09/02/18 22:58 Dose: 50 mg Aspirin (Ecotrin -) 81 mg PO DAILY [facility] Last Admin: 09/02/18 09:06 Dose: 81 mg Atorvastatin Calcium (Lipitor -) 10 mg PO HS [facility] Last Admin: 09/02/18 22:57 Dose: 10 mg Calcitriol (Rocaltrol -) 0.25 mcg PO DAILY [facility] Last Admin: 09/02/18 09:07 Dose: 0.25 mcg Calcium Acetate (Phoslo -) 667 mg PO TIDCM [facility] Last Admin: 09/02/18 17:12 Dose: 667 mg Cholestyramine Resin (Questran Light Packet -) 4 gm PO QID [facility] Last Admin: 09/02/18 22:58 Dose: Not Given Ferrous Sulfate (Feosol -) 325 mg PO BID [facility] Last Admin: 09/02/18 22:57 Dose: 325 mg Glipizide (Glucotrol -) 5 mg PO AM [facility] Last Admin: 09/03/18 06:43 Dose: Not Given Glipizide (Glucotrol Xl -) 2.5 mg PO HS [facility] Last Admin: 09/02/18 22:57 Dose: Not Given Heparin Sodium (Porcine) (Heparin -) 5,000 unit SQ BID [facility] Last Admin: 09/02/18 22:58 Dose: 5,000 unit Isosorbide Mononitrate (Imdur -) 30 mg PO DAILY [facility] Last Admin: 09/02/18 09:06 Dose: 30 mg Labetalol HCl (Normodyne -) 300 mg PO TID [facility] Last Admin: 09/03/18 06:43 Dose: 300 mg Losartan Potassium (Cozaar -) 100 mg PO DAILY [facility] Last Admin: 09/02/18 09:05 Dose: 100 mg Nifedipine (Procardia Xl -) 90 mg PO DAILY [facility] Last Admin: 09/02/18 09:06 Dose: 90 mg Nifedipine (Procardia Xl -) 30 mg PO DAILY@2200 [facility] Last Admin: 09/02/18 22:57 Dose: 30 mg Nystatin (Mycostatin Ointment -) 1 applic TP BID [facility] Last Admin: 09/02/18 23:03 Dose: 1 applic Ondansetron HCl (Zofran -) 8 mg PO Q6H PRN PRN Reason: NAUSEA Last Admin: 09/01/18 13:08 Dose: 8 mg - Objective Vital Signs: Vital Signs Temperature 98 F 09/02/18 22:00 Pulse Rate 68 09/02/18 22:00 Respiratory Rate 20 09/02/18 22:00 Blood Pressure 134/66 09/02/18 22:00 O2 Sat by Pulse Oximetry (%) 93 L 09/01/18 21:00 Constitutional: Yes: No Distress, Calm Eyes: Yes: Conjunctiva Clear HENT: Yes: Atraumatic Neck: Yes: Supple Cardiovascular: Yes: Regular Rate and Rhythm Respiratory: Yes: CTA Bilaterally Gastrointestinal: Yes: Soft. No: Tenderness Genitourinary: No: CVA Tenderness - Left, CVA Tenderness - Right Musculoskeletal: No: Joint Stiffness, Joint Swelling Extremities: No: Cold, Cool Edema: No Integumentary: No: Rash, Venous Stasis Changes Neurological: Yes: WNL, Alert, Oriented ...Motor Strength: WNL Psychiatric: Yes: WNL, Alert, Oriented. No: Agitated, Suicidal Ideation Labs: CBC, BMP 09/02/18 08:30 09/02/18 08:30 - ....Imaging Other: Report Reviewed Assessment/Plan Pt. is a 83 y.o. F with extensive PMHx. including ESRD on HD, HTN, NIDDM, PVD, admitted after missed dyalsis x 1 week dyalsis per renal vascular sx for AVF ; no absolute CI for the proposed surgery seen and cleared by cardiology for surgery [place] for diarrhea; if not better will d/w pt about GI eval - called today dw pt importance of compliance with meds, consults and procedures and to stop smoking falls DVT pfx d/w pt and staff
[2018-09-03 07:34] LABS: BASO % 1.5 % (0-2.0); EOS % 8.7 % (0-4.5); HEMATOCRIT 38.5 % (32.4-45.2); HEMOGLOBIN 11.9 GM/dL (10.7-15.3); LYMPH % 21.5 % (8-40); MCH 29.5 pg (25.7-33.7); MCHC 30.9 g/dl (32.0-36.0); MEAN CELL VOLUME 95.5 fl (80-96); MEAN PLT VOLUME 8.9 fl (7.5-11.1); MONO % 9.8 % (3.8-10.2); NEUT % 58.5 % (42.8-82.8); PLATELET COUNT 264 K/MM3 (134-434); RBC 4.03 M/mm3 (3.60-5.2); RDW 14.7 % (11.6-15.6)
[2018-09-03 07:57] LABS: INR 0.88 (0.83-1.09); PROTHROMBIN TIME (PATIENT) 10.4 SEC (9.7-13.0)
[2018-09-03] MEDS ORDERED: SODIUM CHLORIDE 250 ML IV PRN (08:09)
[2018-09-03 08:21] LABS: ALBUMIN 2.7 g/dl (3.4-5.0); ALK PHOS 67 U/L (45-117); ANION GAP 9 MMOL/L (8-16); BILIRUBIN,TOTAL 0.2 mg/dL (0.2-1); BLOOD UREA NITROGEN 36 mg/dL (7-18); CALCIUM 8.6 mg/dL (8.5-10.1); CHLORIDE 109 mmol/L (98-107); CO2 23 mmol/L (21-32); CREATININE 6.3 mg/dL (0.55-1.3); GLUCOSE,RANDOM 79 mg/dL (74-106); POTASSIUM 5.1 mmol/L (3.5-5.1); SGOT/AST 20 U/L (15-37); SGPT/ALT 22 U/L (13-61); SODIUM 141 mmol/L (136-145); TOT PROT 6.1 g/dl (6.4-8.2)
[2018-09-03] MEDS: CALCIUM ACETATE 667 MG CAPSULE (FP) PO SCH ×3 (09:09→17:48)
--- NOTE | 2018-09-03 09:19 | PN ---
Progress Note (short form) - Note Progress Note: VAscular Surgery VEin mapping ordered for avf placement . Last vein mapping is from jul 20. Will plan for avf placement annalise taran Jane DO
[2018-09-03] MEDS: ALPRAZolam 0.25 MG TABLET PO PRN ×3 (10:00→21:02)
[2018-09-03] MEDS: ONDANSETRON 4 MG TABLET PO PRN (10:00)
--- NOTE | 2018-09-03 11:27 | PN ---
Progress Note, Physician History of Present Illness: BP improved after medication adjustment. Tolerated HD. Diarrhea continues despite Questran. - Current Medication List Current Medications: Active Medications Acetaminophen (Tylenol -) 650 mg PO Q6H PRN PRN Reason: PAIN Last Admin: 09/02/18 09:08 Dose: 650 mg Alprazolam (Xanax -) 0.25 mg PO BID PRN PRN Reason: ANXIETY Last Admin: 09/03/18 10:00 Dose: 0.25 mg Amitriptyline HCl (Elavil -) 50 mg PO HS [facility] Last Admin: 09/02/18 22:58 Dose: 50 mg Aspirin (Ecotrin -) 81 mg PO DAILY [facility] Last Admin: 09/02/18 09:06 Dose: 81 mg Atorvastatin Calcium (Lipitor -) 10 mg PO HS [facility] Last Admin: 09/02/18 22:57 Dose: 10 mg Calcitriol (Rocaltrol -) 0.25 mcg PO DAILY [facility] Last Admin: 09/02/18 09:07 Dose: 0.25 mcg Calcium Acetate (Phoslo -) 667 mg PO TIDCM [facility] Last Admin: 09/03/18 09:09 Dose: 667 mg Cholestyramine Resin (Questran Light Packet -) 4 gm PO QID [facility] Last Admin: 09/02/18 22:58 Dose: Not Given Ferrous Sulfate (Feosol -) 325 mg PO BID [facility] Last Admin: 09/02/18 22:57 Dose: 325 mg Glipizide (Glucotrol -) 5 mg PO AM [facility] Last Admin: 09/03/18 06:43 Dose: Not Given Glipizide (Glucotrol Xl -) 2.5 mg PO HS [facility] Last Admin: 09/02/18 22:57 Dose: Not Given Heparin Sodium (Porcine) (Heparin -) 5,000 unit SQ BID [facility] Last Admin: 09/02/18 22:58 Dose: 5,000 unit Sodium Chloride (Normal Saline -) 250 mls @ 3,000 mls/hr IV PRN PRN PRN Reason: Hypotension during Dialysis Stop: 09/04/18 08:09 Isosorbide Mononitrate (Imdur -) 30 mg PO DAILY [facility] Last Admin: 09/02/18 09:06 Dose: 30 mg Labetalol HCl (Normodyne -) 300 mg PO TID [facility] Last Admin: 09/03/18 06:43 Dose: 300 mg Losartan Potassium (Cozaar -) 100 mg PO DAILY [facility] Last Admin: 09/02/18 09:05 Dose: 100 mg Nifedipine (Procardia Xl -) 90 mg PO DAILY [facility] Last Admin: 09/02/18 09:06 Dose: 90 mg Nifedipine (Procardia Xl -) 30 mg PO DAILY@2200 [facility] Last Admin: 09/02/18 22:57 Dose: 30 mg Nystatin (Mycostatin Ointment -) 1 applic TP BID [facility] Last Admin: 09/02/18 23:03 Dose: 1 applic Ondansetron HCl (Zofran -) 8 mg PO Q6H PRN PRN Reason: NAUSEA Last Admin: 09/03/18 10:00 Dose: 8 mg - Objective Vital Signs: Vital Signs Temperature 98.3 F 09/03/18 06:57 Pulse Rate 65 09/03/18 06:57 Respiratory Rate 20 09/03/18 06:57 Blood Pressure 152/70 09/03/18 06:57 O2 Sat by Pulse Oximetry (%) 93 L 09/01/18 21:00 Constitutional: Yes: No Distress, Calm, Thin Neck: Yes: Supple Cardiovascular: Yes: Regular Rate and Rhythm Respiratory: Yes: Regular, Diminished Gastrointestinal: Yes: Normal Bowel Sounds, Soft Edema: No Labs: CBC, BMP 09/03/18 07:00 09/03/18 07:00 INR, PTT INR 0.88 (0.83-1.09) 09/03/18 07:00 Problem List - Problems (1) Pre-operative cardiovascular examination Code(s): Z01.810 - ENCOUNTER FOR PREPROCEDURAL CARDIOVASCULAR EXAMINATION (2) ESRD (end stage renal disease) Code(s): N18.6 - END STAGE RENAL DISEASE (3) Hemodialysis patient Code(s): Z99.2 - DEPENDENCE ON RENAL DIALYSIS (4) Anemia Code(s): D64.9 - ANEMIA, UNSPECIFIED Qualifiers: Anemia type: due to chronic kidney disease Chronic kidney disease stage: stage 5, not on chronic dialysis Qualified Code(s): N18.5 - Chronic kidney disease, stage 5; D63.1 - Anemia in chronic kidney disease (5) CAD (coronary artery disease) Code(s): I25.10 - ATHSCL HEART DISEASE OF [place] CORONARY ARTERY W/O ANG PCTRS Qualifiers: Coronary Disease-Associated Artery/Lesion type: [place] artery [place] vs. transplanted heart: [place] heart Associated angina: without angina Qualified Code(s): I25.10 - Atherosclerotic heart disease of [place] coronary artery without angina pectoris (6) Diabetes Code(s): E11.9 - TYPE 2 DIABETES MELLITUS WITHOUT COMPLICATIONS Qualifiers: Diabetes mellitus type: type 2 Diabetes mellitus complication status: with skin complications Diabetes mellitus complication detail: with foot ulcer (7) Hyperlipidemia associated with type 2 diabetes mellitus Code(s): E11.69 - TYPE 2 DIABETES MELLITUS WITH OTHER SPECIFIED COMPLICATION; E78.5 - HYPERLIPIDEMIA, UNSPECIFIED (8) Hypertensive heart disease Code(s): I11.9 - HYPERTENSIVE HEART DISEASE WITHOUT HEART FAILURE Qualifiers: Heart failure presence: without heart failure Qualified Code(s): I11.9 - Hypertensive heart disease without heart failure (9) PAD (peripheral artery disease) Code(s): I73.9 - PERIPHERAL VASCULAR DISEASE, UNSPECIFIED (10) S/P femoropopliteal bypass surgery Code(s): Z95.828 - PRESENCE OF OTHER VASCULAR IMPLANTS AND GRAFTS (11) Uncontrolled hypertension Code(s): I10 - ESSENTIAL (PRIMARY) HYPERTENSION Assessment/Plan 04/01/16 Nuc stress: Mild apical ischemia, inferoseptal ischemia LVEF 70% 06/01/2018 Echo: Normal RV and LV size and fxn, mild cLVH, mild MR, TR, AR 1. Pre-operative cardiovascular evaluation prior to LUE AVF 2. ESRD on HD with multiple missed dialysis treatments and hyperkalemia 3. CAD w/ h/o subendocardial ishemia in context of 4. HTN urgency, BP uncontrolled 5. Type 2 DM with nephropathy 6. Hypercholesterolemia 7. COPD h/o acute hypercapneic respiratory failure post ERCP related to anesthesia 8. Anemia of CKD 9. Diarrhea PLAN: 1. HD per renal, LUE vein mapping, plan for LUE AVF. Given low risk stress test within 5 years and absence of symptoms of acute coronary syndrome, decompensated CHF or malignant arrhythmia, may proceed with AVF from CV- standpoint w/o further testing 2. Placed on labetolol 300 tid, Procardia XL 90/30 qd, ASA 81 qd, Lipitor 10 qd , Imdur 30 qd, losartan 100qd 3. Will need placement in rehab/NH
[2018-09-03] MEDS ORDERED: PT OWN MED DRAWER 7, Y5N ONE ×2 (11:32→20:05)
[2018-09-03] MEDS: HEPARIN NA (PORCINE) 5,000 UNITS/ML 1ML VIAL SQ SCH ×2 (11:34→21:02)
[2018-09-03] MEDS: ASPIRIN COATED 81 MG TABLET.EC PO SCH (11:34)
[2018-09-03] MEDS: ISOSORBIDE MONONITRATE 30 MG TAB.SR.24H (FP) PO SCH (11:34)
[2018-09-03] MEDS: LOSARTAN POTASSIUM 50 MG TABLET (FP) PO SCH (11:34)
[2018-09-03] MEDS: FERROUS SO4 325 MG TABLET (FP) PO SCH ×2 (11:34→21:02)
[2018-09-03] MEDS: CHOLESTYRAMINE/ASPARTAME 4 GM PACKET PO SCH ×2 (11:34→15:01)
[2018-09-03] MEDS: CALCITRIOL 0.25 MCG CAPSULE (FP) PO SCH (11:34)
[2018-09-03] MEDS: NIFEdipine E.R. 90 MG TABLET (FP) PO SCH (11:35)
[2018-09-03] MEDS: NYSTATIN 100000 UNIT/GM TOPICAL OINTMENT 15 GM TUBE TP SCH ×2 (11:36→21:04)
--- NOTE | 2018-09-03 13:41 | PN ---
Progress Note (short form) - Note Progress Note: Renal follow up for ESRD on HD Pt seen and examined at the bedside Reports continued diarrhea no sob, cp refused to go to dialysis this am no fever or chills Vital Signs Temperature 98.4 F 09/03/18 10:00 Pulse Rate 97 H 09/03/18 10:00 Respiratory Rate 16 09/03/18 10:00 Blood Pressure 130/54 L 09/03/18 10:00 O2 Sat by Pulse Oximetry (%) 93 L 09/01/18 21:00 NAD no LE edema CBC, BMP 09/03/18 07:00 09/03/18 07:00 Current Medications Acetaminophen (Tylenol -) 650 mg PO Q6H PRN PRN Reason: PAIN Last Admin: 09/02/18 09:08 Dose: 650 mg Alprazolam (Xanax -) 0.25 mg PO BID PRN PRN Reason: ANXIETY Last Admin: 09/03/18 10:00 Dose: 0.25 mg Amitriptyline HCl (Elavil -) 50 mg PO HS [facility] Last Admin: 09/02/18 22:58 Dose: 50 mg Aspirin (Ecotrin -) 81 mg PO DAILY [facility] Last Admin: 09/03/18 11:34 Dose: 81 mg Atorvastatin Calcium (Lipitor -) 10 mg PO HS [facility] Last Admin: 09/02/18 22:57 Dose: 10 mg Calcitriol (Rocaltrol -) 0.25 mcg PO DAILY [facility] Last Admin: 09/03/18 11:34 Dose: 0.25 mcg Calcium Acetate (Phoslo -) 667 mg PO TIDCM [facility] Last Admin: 09/03/18 11:34 Dose: 667 mg Cholestyramine Resin (Questran Light Packet -) 4 gm PO QID [facility] Last Admin: 09/03/18 11:34 Dose: 4 gm Ferrous Sulfate (Feosol -) 325 mg PO BID [facility] Last Admin: 09/03/18 11:34 Dose: 325 mg Glipizide (Glucotrol -) 5 mg PO AM [facility] Last Admin: 09/03/18 06:43 Dose: Not Given Glipizide (Glucotrol Xl -) 2.5 mg PO HS [facility] Last Admin: 09/02/18 22:57 Dose: Not Given Heparin Sodium (Porcine) (Heparin -) 5,000 unit SQ BID [facility] Last Admin: 09/03/18 11:34 Dose: 5,000 unit Sodium Chloride (Normal Saline -) 250 mls @ 3,000 mls/hr IV PRN PRN PRN Reason: Hypotension during Dialysis Stop: 09/04/18 08:09 Isosorbide Mononitrate (Imdur -) 30 mg PO DAILY [facility] Last Admin: 09/03/18 11:34 Dose: 30 mg Labetalol HCl (Normodyne -) 300 mg PO TID [facility] Last Admin: 09/03/18 06:43 Dose: 300 mg Losartan Potassium (Cozaar -) 100 mg PO DAILY [facility] Last Admin: 09/03/18 11:34 Dose: 100 mg Nifedipine (Procardia Xl -) 90 mg PO DAILY [facility] Last Admin: 09/03/18 11:35 Dose: 90 mg Nifedipine (Procardia Xl -) 30 mg PO DAILY@2200 [facility] Last Admin: 09/02/18 22:57 Dose: 30 mg Nystatin (Mycostatin Ointment -) 1 applic TP BID [facility] Last Admin: 09/03/18 11:36 Dose: 1 applic Ondansetron HCl (Zofran -) 8 mg PO Q6H PRN PRN Reason: NAUSEA Last Admin: 09/03/18 10:00 Dose: 8 mg 83 year old woman with hx of 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 #ESRD on HD with multiple missed dialysis treatments #Hyperkalemia #Metabolic acidosis #Renal Osteodystrophy #Hypertension #Hypocalcemia pt refused today, no overt fluid overload, acidosis or hyperkaemia so will defer dialysis to tomorrow Vascular Sx to place AVF tomorrow if pt is agreeable PT evaluation on going diarrhea management as per primary/GI Continue present BP meds Quentin Goyal DO
--- NOTE | 2018-09-03 15:38 | CON.GI ---
Consult Consult Specialty:: GI Referred by:: Medicine Reason for Consultation:: diarrhea - History of Present Illness Chief Complaint: weakness History of Present Illness: GI for Dr. Zuniga 83F with h/o HTN, HL, CAD, DM, COPD, ESRD/HD. GI asked to assist with evaluation of diarrhea. h/o choledocholithiasis/cholangitis 09/2015, refused ERCP, represented 03/2016 with recurrent cholangitis and had ERCP with stone extraction and laparoscopic cholecystectomy. Has had diarrhea since that time. ? colonoscopy about a year ago with Dr. Mcfarland that patient does not recall. Per [facility] reports, last colonoscopy in 2013 with few small polyps, otherwise unremarkable. She does not think cholestyramine is helping her anymore. Reports multiple bm's per day. Reports she is mostly at home between the toilet and the shower. Diarrhea is nonbloody. No abdominal pain. - History Source History Provided By: Caregiver Limitations to Obtaining History: No Limitations - Past Medical History Cardio/Vascular: Yes: HTN, Hyperlipdemia, Murmur, Other (PAD) Pulmonary: Yes: Asthma, COPD Hepatobiliary: Yes: Cholelithiasis, Choledocholithiasis Renal/: Yes: Renal Inusuff ...: No Infectious Disease: Yes: Other (history of osteomyelitis in the past) Endocrine: Yes: Diabetes Mellitus - Past Surgical History Past Surgical History: Yes: Amputation (1-st R toe amputation), Bypass (Right fem pop bypass) - Alcohol/Substance Use Hx Alcohol Use: No History of Substance Use: reports: None - Smoking History Smoking history: Current every day smoker Have you smoked in the past 12 months: No Aproximately how many cigarettes per day: 20 If you are a former smoker, when did you quit?: 08/10/2012 - Social History Usual Living Arrangement: Alone ADL: Independent 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, 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, 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 Travel: No Home Medications - Allergies Allergies/Adverse Reactions: Allergies Allergy/AdvReac Type Severity Reaction Status Date / Time iodine Allergy Rash Verified 08/28/18 09:24 penicillin V Allergy Verified 08/28/18 09:24 shellfish derived Allergy Rash Verified 08/28/18 09:24 vancomycin Allergy Verified 08/28/18 09:24 azithromycin AdvReac Verified 08/28/18 09:24 - Home Medications Home Medications: Ambulatory Orders Nifedipine ER [Procardia XL -] 60 mg PO BID 08/29/16 Aspirin Coated [Ecotrin -] 81 mg PO DAILY tablet.ec 09/15/16 Glipizide 5 mg PO DAILY 06/26/17 Calcitriol [Calcitriol -] 0.25 mcg PO DAILY capsule 12/29/17 Ferrous Sulfate [Feosol] 325 mg PO BID ud 12/29/17 Alprazolam [Xanax] 0.25 mg PO BID 05/05/18 Amitriptyline HCl [Elavil -] 50 mg PO HS 05/05/18 Atorvastatin Ca [Lipitor] 10 mg PO HS 05/05/18 Isosorbide Mononitrate [Imdur -] 30 mg PO DAILY 05/05/18 Acetaminophen [Tylenol .Regular Strength -] 650 mg PO Q6H PRN tablet 06/05/18 Glipizide [Glipizide ER] 2.5 mg PO HS 07/14/18 Sodium Bicarbonate - 650 mg PO TID 07/14/18 Amitriptyline HCl [Elavil -] 50 mg PO HS 08/28/18 Ondansetron [Zofran -] 8 mg PO Q6H PRN MDD 4 08/28/18 Cholestyramine/Aspartame [Questran Light Packet -] 4 gm PO BID PRN 08/29/18 Family Disease History - Family Disease History Family Disease History: CA: Father (lung ca), Mother (, lung ca), Sister (lung ca) Review of Systems - Review of Systems Constitutional: reports: Weakness Eyes: reports: No Symptoms HENT: reports: No Symptoms Neck: reports: No Symptoms Cardiovascular: reports: No Symptoms Respiratory: reports: No Symptoms Gastrointestinal: reports: Diarrhea. denies: Abdominal Pain, Rectal Bleeding Musculoskeletal: reports: No Symptoms Integumentary: reports: No Symptoms Neurological: reports: No Symptoms Endocrine: reports: No Symptoms Physical Exam-GI Vital Signs: Vital Signs Temperature 98.4 F 09/03/18 10:00 Pulse Rate 97 H 09/03/18 10:00 Respiratory Rate 16 09/03/18 10:00 Blood Pressure 130/54 L 09/03/18 10:00 O2 Sat by Pulse Oximetry (%) 93 L 09/01/18 21:00 Constitutional: Yes: No Distress Eyes: Yes: WNL Cardiovascular: Yes: Regular Rate and Rhythm, Murmur Respiratory: Yes: CTA Bilaterally ...Palpate: Yes: Soft. No: Tenderness ...Rectal Exam: Yes: Deferred Neurological: Yes: WNL, Alert, Oriented Labs: CBC, BMP 09/03/18 07:00 09/03/18 07:00 INR, PTT INR 0.88 (0.83-1.09) 09/03/18 07:00 C. diff antigen positive but PCR negative Assessment/Plan Diarrhea - ? post cholecystectomy. Per patient it began the day after cholecystectomy. Reported that cholestyramine helped for a while, but doesn't report significant benefit from it in the last 6-8 months. Discussed in detail with patient - will do trial off cholestyramine for 24 hours -- that way she can see if it was actually helping her. Tomorrow afternoon, if patient requests , given negative C. diff, would be appropriate to start loperamide, 2mg q4h, not to exceed 16mg in a 24 hour period. If loperamide is not helpful, then could consider trying lomotil. Other consideration would be microscopic colitis , but seems so temporally associated with cholecystectomy. If anti-diarrheals are not beneficial, could also consider endoscopic evaluation for further assessment.
[2018-09-03] MEDS: NIFEdipine E.R. 30 MG TABLET (FP) PO SCH (21:02)
[2018-09-03] MEDS: AMITRIPTYLINE HCL 25 MG TABLET (FP) PO SCH (21:02)
[2018-09-03] MEDS: ATORVASTATIN CA 10 MG TABLET (FP) PO SCH (21:02)
[2018-09-03] MEDS: glipiZIDE-XL 2.5 MG TAB.ER.24 PO SCH (21:04)
[2018-09-04] MEDS: ACETAMINOPHEN 325 MG TABLET (FP) PO PRN (03:06)
[2018-09-04] MEDS: LABETALOL HCL 100 MG TABLET (FP) PO SCH ×3 (05:23→23:35)
[2018-09-04] MEDS: glipiZIDE 5 MG TABLET (FP) PO SCH (06:24)
[2018-09-04 07:25] LABS: BASO % 1.8 % (0-2.0); EOS % 8.6 % (0-4.5); HEMATOCRIT 40.5 % (32.4-45.2); HEMOGLOBIN 12.3 GM/dL (10.7-15.3); LYMPH % 23.6 % (8-40); MCH 29.1 pg (25.7-33.7); MCHC 30.4 g/dl (32.0-36.0); MEAN CELL VOLUME 95.7 fl (80-96); MEAN PLT VOLUME 8.7 fl (7.5-11.1); PLATELET COUNT 261 K/MM3 (134-434); RBC 4.23 M/mm3 (3.60-5.2); RDW 14.9 % (11.6-15.6); WHITE BLOOD COUNT 5.7 K/mm3 (4.0-10.0)
[2018-09-04 08:03] LABS: ALBUMIN 2.6 g/dl (3.4-5.0); ALK PHOS 70 U/L (45-117); ANION GAP 10 MMOL/L (8-16); BILIRUBIN,TOTAL 0.2 mg/dL (0.2-1); BLOOD UREA NITROGEN 41 mg/dL (7-18); CALCIUM 8.7 mg/dL (8.5-10.1); CHLORIDE 109 mmol/L (98-107); CO2 20 mmol/L (21-32); GLUCOSE,RANDOM 51 mg/dL (74-106); SGOT/AST 18 U/L (15-37); SGPT/ALT 20 U/L (13-61); SODIUM 140 mmol/L (136-145)
[2018-09-04] MEDS ORDERED: PT OWN MED DRAWER 7, Y5N ONE ×2 (09:27→22:59)
--- NOTE | 2018-09-04 09:36 | PN ---
Progress Note, Physician - Current Medication List Current Medications: Active Medications Acetaminophen (Tylenol -) 650 mg PO Q6H PRN PRN Reason: PAIN Last Admin: 09/04/18 03:06 Dose: 650 mg Alprazolam (Xanax -) 0.25 mg PO BID PRN PRN Reason: ANXIETY Last Admin: 09/03/18 21:02 Dose: 0.25 mg Amitriptyline HCl (Elavil -) 50 mg PO HS [facility] Last Admin: 09/03/18 21:02 Dose: 50 mg Aspirin (Ecotrin -) 81 mg PO DAILY [facility] Last Admin: 09/03/18 11:34 Dose: 81 mg Atorvastatin Calcium (Lipitor -) 10 mg PO HS [facility] Last Admin: 09/03/18 21:02 Dose: 10 mg Calcitriol (Rocaltrol -) 0.25 mcg PO DAILY [facility] Last Admin: 09/03/18 11:34 Dose: 0.25 mcg Calcium Acetate (Phoslo -) 667 mg PO TIDCM [facility] Last Admin: 09/03/18 17:48 Dose: 667 mg Ferrous Sulfate (Feosol -) 325 mg PO BID [facility] Last Admin: 09/03/18 21:02 Dose: 325 mg Glipizide (Glucotrol -) 5 mg PO AM [facility] Last Admin: 09/04/18 06:24 Dose: Not Given Glipizide (Glucotrol Xl -) 2.5 mg PO HS [facility] Last Admin: 09/03/18 21:04 Dose: 2.5 mg Heparin Sodium (Porcine) (Heparin -) 5,000 unit SQ BID [facility] Last Admin: 09/03/18 21:02 Dose: 5,000 unit Isosorbide Mononitrate (Imdur -) 30 mg PO DAILY [facility] Last Admin: 09/03/18 11:34 Dose: 30 mg Labetalol HCl (Normodyne -) 300 mg PO TID [facility] Last Admin: 09/04/18 05:23 Dose: Not Given Loperamide HCl (Imodium -) 2 mg PO Q6H PRN PRN Reason: DIARRHEA Losartan Potassium (Cozaar -) 100 mg PO DAILY [facility] Last Admin: 09/03/18 11:34 Dose: 100 mg Nifedipine (Procardia Xl -) 90 mg PO DAILY [facility] Last Admin: 09/03/18 11:35 Dose: 90 mg Nifedipine (Procardia Xl -) 30 mg PO DAILY@2200 [facility] Last Admin: 09/03/18 21:02 Dose: 30 mg Nystatin (Mycostatin Ointment -) 1 applic TP BID [facility] Last Admin: 09/03/18 21:04 Dose: Not Given Ondansetron HCl (Zofran -) 8 mg PO Q6H PRN PRN Reason: NAUSEA Last Admin: 09/03/18 10:00 Dose: 8 mg - Objective Vital Signs: Vital Signs Temperature 97.4 F L 09/04/18 06:39 Pulse Rate 62 09/04/18 06:39 Respiratory Rate 20 09/04/18 06:39 Blood Pressure 128/49 L 09/04/18 06:39 O2 Sat by Pulse Oximetry (%) 100 09/03/18 21:00 Labs: CBC, BMP 09/04/18 06:15 09/04/18 06:15 INR, PTT INR 0.88 (0.83-1.09) 09/03/18 07:00
[2018-09-04] MEDS: HEPARIN NA (PORCINE) 5,000 UNITS/ML 1ML VIAL SQ SCH ×2 (09:44→23:36)
[2018-09-04] MEDS: LOSARTAN POTASSIUM 50 MG TABLET (FP) PO SCH (09:44)
[2018-09-04] MEDS: ASPIRIN COATED 81 MG TABLET.EC PO SCH (09:45)
[2018-09-04] MEDS: FERROUS SO4 325 MG TABLET (FP) PO SCH ×2 (09:45→23:35)
[2018-09-04] MEDS: NIFEdipine E.R. 90 MG TABLET (FP) PO SCH (09:45)
[2018-09-04] MEDS: CALCIUM ACETATE 667 MG CAPSULE (FP) PO SCH ×3 (09:45→18:10)
[2018-09-04] MEDS: CALCITRIOL 0.25 MCG CAPSULE (FP) PO SCH (09:45)
[2018-09-04] MEDS: ISOSORBIDE MONONITRATE 30 MG TAB.SR.24H (FP) PO SCH (09:45)
[2018-09-04] MEDS: NYSTATIN 100000 UNIT/GM TOPICAL OINTMENT 15 GM TUBE TP SCH ×2 (09:49→23:37)
--- NOTE | 2018-09-04 10:52 | PN ---
Progress Note (short form) - Note Progress Note: Vascular Surgery Pt refused vein mapping and HD yest. GI saw pt for diahhrea. Will hold off avf today. Pt was not agreeable yesterday. Bob Jane DO
--- NOTE | 2018-09-04 11:27 | DS ---
Physical Examination Vital Signs: Vital Signs Temperature 97.4 F L 09/04/18 06:39 Pulse Rate 62 09/04/18 06:39 Respiratory Rate 20 09/04/18 06:39 Blood Pressure 128/49 L 09/04/18 06:39 O2 Sat by Pulse Oximetry (%) 100 09/03/18 21:00 Findings/Remarks: in bed awake alert NAD VSS afebrile; less diarrhea now, seen by dr Saeid RODRIGUEZ and advised to f/u with her outpt. Was supposed to have mapping L AVF yesterday and she went downstairs accompanied by floor nurse but when she got to US department she did not want to do it anymore at that point and was sent back upstairs, and now she does not want to do the mapping or the surgery at this point, said she will think about it in the future. Was supposed to have HD this am but wanted to eat first and will have it done later today, then she agreed to go to [facility]; f/u needed d/w pt. D/w pt and staff about plan and DC to SNF they all agreed. Constitutional: Yes: No Distress, Calm Eyes: Yes: Conjunctiva Clear HENT: Yes: Atraumatic Neck: Yes: Supple Cardiovascular: Yes: Regular Rate and Rhythm Respiratory: Yes: CTA Bilaterally Gastrointestinal: Yes: Soft. No: Tenderness Renal/: No: CVA Tenderness - Left, CVA Tenderness - Right Musculoskeletal: No: Joint Stiffness, Joint Swelling Extremities: No: Cold, Cool, Cyanosis Edema: No Integumentary: No: Pressure Ulcer, Rash, Venous Stasis Changes Neurological: Yes: WNL, Alert, Oriented ...Motor Strength: WNL Psychiatric: Yes: WNL, Alert, Oriented. No: Agitated, Suicidal Ideation Labs: CBC, BMP 09/04/18 06:15 09/04/18 06:15 Discharge Summary Reason For Visit: HYPERKALEMIA,ESRD,DIALYSIS Current Active Problems ESRD (end stage renal disease) (Acute) Hemodialysis patient (Acute) Hyperkalemia (Acute) Pre-operative cardiovascular examination (Acute) Procedures: Principal: admitted with ARF after she missed 1 week dyalisis Other Procedures: seen by renal and vascular surgery; was supposed to have vein mapping and AVFistula but pt postponed them for now; will go to SNF for rehab. Hospital Course: improbed with above; seen also by GI for diarrhea; see meds; to have outpt EGD; dyalisis 3 days a week per renal; f/u as advised. Condition: Guarded - Instructions Diet, Activity, Other Instructions: PT/Rehab at SNF; f/u PCP and all specialists as advised within 2-4 weeks after DC home; stop smoking; GI f/u outpt [facility] if worse or recurrent; Referrals: Angela Barahona [Primary Care Provider] - Andreia Willingham MD [Staff Physician] - Bob Jane MD [Staff Physician] - Quentin Goyal MD [Staff Physician] - Oswaldo Lam MD [Staff Physician] - Disposition: INTERMEDIATE FACILITY - Home Medications Comprehensive Discharge Medication List: Ambulatory Orders Aspirin Coated [Ecotrin -] 81 mg PO DAILY tablet.ec 09/15/16 Glipizide 5 mg PO DAILY 06/26/17 Calcitriol [Calcitriol -] 0.25 mcg PO DAILY capsule 12/29/17 Ferrous Sulfate [Feosol] 325 mg PO BID ud 12/29/17 Alprazolam [Xanax] 0.25 mg PO BID 05/05/18 Amitriptyline HCl [Elavil -] 50 mg PO HS 05/05/18 Atorvastatin Ca [Lipitor] 10 mg PO HS 05/05/18 Isosorbide Mononitrate [Imdur -] 30 mg PO DAILY 05/05/18 Acetaminophen [Tylenol .Regular Strength -] 650 mg PO Q6H PRN tablet 06/05/18 Glipizide [Glipizide ER] 2.5 mg PO HS 07/14/18 Amitriptyline HCl [Elavil -] 50 mg PO HS 08/28/18 Ondansetron [Zofran -] 8 mg PO Q6H PRN MDD 4 08/28/18 Calcium Acetate [Phoslo -] 667 mg PO TIDCM capsule 09/04/18 Cholestyramine/Aspartame [Questran Light Packet -] 4 gm PO QID packet 09/04/18 Heparin - 5,000 unit SQ BID vial 09/04/18 Labetalol HCl [Normodyne -] 300 mg PO TID tablet 09/04/18 Loperamide HCl [Imodium -] 2 mg PO Q6H PRN capsule 09/04/18 Losartan Potassium [Cozaar -] 100 mg PO DAILY tablet 09/04/18 Nifedipine ER [Procardia XL -] 90 mg PO DAILY tab.er.24 09/04/18 Nystatin Ointment [Mycostatin Ointment -] 1 applic TP BID applic 09/04/18
[2018-09-04] MEDS: ALPRAZolam 0.25 MG TABLET PO PRN ×2 (12:02→23:35)
[2018-09-04 13:33] VITALS: BMI 18.2
--- NOTE | 2018-09-04 13:33 | PN ---
Progress Note, Physician Chief Complaint: Not in distress History of Present Illness: Patient was seen and examined in HD unit. Awake and alert. Chart was reviewed Denies chest pain, SOB or palpitations - Current Medication List Current Medications: Active Medications Acetaminophen (Tylenol -) 650 mg PO Q6H PRN PRN Reason: PAIN Last Admin: 09/04/18 03:06 Dose: 650 mg Alprazolam (Xanax -) 0.25 mg PO BID PRN PRN Reason: ANXIETY Last Admin: 09/04/18 12:02 Dose: 0.25 mg Amitriptyline HCl (Elavil -) 50 mg PO HS [facility] Last Admin: 09/03/18 21:02 Dose: 50 mg Aspirin (Ecotrin -) 81 mg PO DAILY [facility] Last Admin: 09/04/18 09:45 Dose: 81 mg Atorvastatin Calcium (Lipitor -) 10 mg PO HS [facility] Last Admin: 09/03/18 21:02 Dose: 10 mg Calcitriol (Rocaltrol -) 0.25 mcg PO DAILY [facility] Last Admin: 09/04/18 09:45 Dose: 0.25 mcg Calcium Acetate (Phoslo -) 667 mg PO TIDCM [facility] Last Admin: 09/04/18 09:45 Dose: 667 mg Ferrous Sulfate (Feosol -) 325 mg PO BID [facility] Last Admin: 09/04/18 09:45 Dose: 325 mg Glipizide (Glucotrol -) 5 mg PO AM [facility] Last Admin: 09/04/18 06:24 Dose: Not Given Glipizide (Glucotrol Xl -) 2.5 mg PO HS [facility] Last Admin: 09/03/18 21:04 Dose: 2.5 mg Heparin Sodium (Porcine) (Heparin -) 5,000 unit SQ BID [facility] Last Admin: 09/04/18 09:44 Dose: 5,000 unit Isosorbide Mononitrate (Imdur -) 30 mg PO DAILY [facility] Last Admin: 09/04/18 09:45 Dose: 30 mg Labetalol HCl (Normodyne -) 300 mg PO TID [facility] Last Admin: 09/04/18 05:23 Dose: Not Given Loperamide HCl (Imodium -) 2 mg PO Q6H PRN PRN Reason: DIARRHEA Losartan Potassium (Cozaar -) 100 mg PO DAILY [facility] Last Admin: 09/04/18 09:44 Dose: 100 mg Nifedipine (Procardia Xl -) 90 mg PO DAILY [facility] Last Admin: 09/04/18 09:45 Dose: 90 mg Nifedipine (Procardia Xl -) 30 mg PO DAILY@2200 [facility] Last Admin: 09/03/18 21:02 Dose: 30 mg Nystatin (Mycostatin Ointment -) 1 applic TP BID [facility] Last Admin: 09/04/18 09:49 Dose: 1 applic Ondansetron HCl (Zofran -) 8 mg PO Q6H PRN PRN Reason: NAUSEA Last Admin: 09/03/18 10:00 Dose: 8 mg - Objective Vital Signs: Vital Signs Temperature 97.7 F 09/04/18 10:00 Pulse Rate 67 09/04/18 13:05 Respiratory Rate 18 09/04/18 13:05 Blood Pressure 127/58 L 09/04/18 13:05 O2 Sat by Pulse Oximetry (%) 100 09/03/18 21:00 Eyes: Yes: PERRL HENT: Yes: Atraumatic Neck: Yes: Supple Cardiovascular: Yes: Regular Rate and Rhythm, S1, S2 Respiratory: Yes: CTA Bilaterally Gastrointestinal: Yes: Normal Bowel Sounds, Soft. No: Tenderness Edema: No Labs: CBC, BMP 09/04/18 06:15 09/04/18 06:15 INR, PTT INR 0.88 (0.83-1.09) 09/03/18 07:00 Problem List - Problems (1) ESRD (end stage renal disease) Code(s): N18.6 - END STAGE RENAL DISEASE (2) Hemodialysis patient Code(s): Z99.2 - DEPENDENCE ON RENAL DIALYSIS (3) Hyperkalemia Code(s): E87.5 - HYPERKALEMIA (4) Anemia Code(s): D64.9 - ANEMIA, UNSPECIFIED Qualifiers: Anemia type: due to chronic kidney disease Chronic kidney disease stage: stage 5, not on chronic dialysis Qualified Code(s): N18.5 - Chronic kidney disease, stage 5; D63.1 - Anemia in chronic kidney disease (5) Asthma Code(s): J45.909 - UNSPECIFIED ASTHMA, UNCOMPLICATED (6) CAD (coronary artery disease) Code(s): I25.10 - ATHSCL HEART DISEASE OF [place] CORONARY ARTERY W/O ANG PCTRS Qualifiers: Coronary Disease-Associated Artery/Lesion type: [place] artery [place] vs. transplanted heart: [place] heart Associated angina: without angina Qualified Code(s): I25.10 - Atherosclerotic heart disease of [place] coronary artery without angina pectoris (7) COPD (chronic obstructive pulmonary disease) Code(s): J44.9 - CHRONIC OBSTRUCTIVE PULMONARY DISEASE, UNSPECIFIED (8) HTN (hypertension) Code(s): I10 - ESSENTIAL (PRIMARY) HYPERTENSION Qualifiers: Hypertension type: essential hypertension Qualified Code(s): I10 - Essential (primary) hypertension (9) Hypertensive heart disease Code(s): I11.9 - HYPERTENSIVE HEART DISEASE WITHOUT HEART FAILURE Qualifiers: Heart failure presence: without heart failure Qualified Code(s): I11.9 - Hypertensive heart disease without heart failure (10) Insulin dependent diabetes mellitus Code(s): E11.9 - TYPE 2 DIABETES MELLITUS WITHOUT COMPLICATIONS; Z79.4 - DETENTION (CURRENT) USE OF INSULIN (11) PAD (peripheral artery disease) Code(s): I73.9 - PERIPHERAL VASCULAR DISEASE, UNSPECIFIED (12) S/P femoropopliteal bypass surgery Code(s): Z95.828 - PRESENCE OF OTHER VASCULAR IMPLANTS AND GRAFTS Assessment/Plan 1. Await LUE AVF 2. ESRD on HD with multiple missed dialysis treatments and hyperkalemia 3. CAD w/ h/o subendocardial ishemia 4. HTN 5. Type 2 DM with nephropathy 6. Hypercholesterolemia 7. COPD h/o acute hypercapneic respiratory failure post ERCP related to anesthesia 8. Anemia of CKD 9. Diarrhea PLAN: 1. HD per renal, LUE vein mapping, plan for LUE AVF. No absolute contraindication in view of absence of ischemic symptoms, decompensated congestive heart failure or malignant arrhythmias. She might have it done as outpatient 2. Continue Labetolol, Procardia XL, ASA, Lipitor, Imdur and Losartan Further plans are to follow Joseph Abbott MD
[2018-09-04] MEDS ORDERED: LOPERAMIDE HCL 2 MG CAPSULE PO PRN (15:00)
--- NOTE | 2018-09-04 17:25 | PN ---
Progress Note, Physician Chief Complaint: diarrhea History of Present Illness: Mrs. Mckeon was seen at this morning. She states she is feeling ok at this time. SHe has refused any endoscopic examinations - states she is feeling weak and would prefer to schedule outpt. - Current Medication List Current Medications: Active Medications Acetaminophen (Tylenol -) 650 mg PO Q6H PRN PRN Reason: PAIN Last Admin: 09/04/18 03:06 Dose: 650 mg Alprazolam (Xanax -) 0.25 mg PO BID PRN PRN Reason: ANXIETY Last Admin: 09/04/18 12:02 Dose: 0.25 mg Amitriptyline HCl (Elavil -) 50 mg PO HS [facility] Last Admin: 09/03/18 21:02 Dose: 50 mg Aspirin (Ecotrin -) 81 mg PO DAILY [facility] Last Admin: 09/04/18 09:45 Dose: 81 mg Atorvastatin Calcium (Lipitor -) 10 mg PO HS [facility] Last Admin: 09/03/18 21:02 Dose: 10 mg Calcitriol (Rocaltrol -) 0.25 mcg PO DAILY [facility] Last Admin: 09/04/18 09:45 Dose: 0.25 mcg Calcium Acetate (Phoslo -) 667 mg PO TIDCM [facility] Last Admin: 09/04/18 15:17 Dose: 667 mg Ferrous Sulfate (Feosol -) 325 mg PO BID [facility] Last Admin: 09/04/18 09:45 Dose: 325 mg Glipizide (Glucotrol -) 5 mg PO AM [facility] Last Admin: 09/04/18 06:24 Dose: Not Given Glipizide (Glucotrol Xl -) 2.5 mg PO HS [facility] Last Admin: 09/03/18 21:04 Dose: 2.5 mg Heparin Sodium (Porcine) (Heparin -) 5,000 unit SQ BID [facility] Last Admin: 09/04/18 09:44 Dose: 5,000 unit Isosorbide Mononitrate (Imdur -) 30 mg PO DAILY [facility] Last Admin: 09/04/18 09:45 Dose: 30 mg Labetalol HCl (Normodyne -) 300 mg PO TID [facility] Last Admin: 09/04/18 15:17 Dose: 300 mg Loperamide HCl (Imodium -) 2 mg PO Q6H PRN PRN Reason: DIARRHEA Losartan Potassium (Cozaar -) 100 mg PO DAILY [facility] Last Admin: 09/04/18 09:44 Dose: 100 mg Nifedipine (Procardia Xl -) 90 mg PO DAILY [facility] Last Admin: 09/04/18 09:45 Dose: 90 mg Nifedipine (Procardia Xl -) 30 mg PO DAILY@2200 [facility] Last Admin: 09/03/18 21:02 Dose: 30 mg Nystatin (Mycostatin Ointment -) 1 applic TP BID [facility] Last Admin: 09/04/18 09:49 Dose: 1 applic Ondansetron HCl (Zofran -) 8 mg PO Q6H PRN PRN Reason: NAUSEA Last Admin: 09/03/18 10:00 Dose: 8 mg - Objective Vital Signs: Vital Signs Temperature 97.7 F 09/04/18 10:00 Pulse Rate 75 09/04/18 14:47 Respiratory Rate 18 09/04/18 14:47 Blood Pressure 153/69 09/04/18 14:47 O2 Sat by Pulse Oximetry (%) 100 09/04/18 09:00 Constitutional: Yes: Well Nourished Eyes: Yes: WNL HENT: Yes: WNL Cardiovascular: Yes: WNL Respiratory: Yes: WNL, Regular Gastrointestinal: Yes: WNL, Normal Bowel Sounds, Soft Musculoskeletal: Yes: WNL Extremities: Yes: WNL Edema: No Labs: CBC, BMP 09/04/18 06:15 09/04/18 06:15 INR, PTT INR 0.88 (0.83-1.09) 09/03/18 07:00 Problem List - Problems (1) Diarrhea Code(s): R19.7 - DIARRHEA, UNSPECIFIED (2) ESRD (end stage renal disease) Assessment/Plan: - stool c.diff negative - c/w cholestyramine therapy - low residue lactose free diet - outpt diagnostic colonoscopy Code(s): N18.6 - END STAGE RENAL DISEASE
[2018-09-04] MEDS: ATORVASTATIN CA 10 MG TABLET (FP) PO SCH (23:35)
[2018-09-04] MEDS: NIFEdipine E.R. 30 MG TABLET (FP) PO SCH (23:35)
[2018-09-04] MEDS: AMITRIPTYLINE HCL 25 MG TABLET (FP) PO SCH (23:35)
[2018-09-04] MEDS: glipiZIDE-XL 2.5 MG TAB.ER.24 PO SCH ×2 (23:36→23:40)
--- NOTE | 2018-09-05 06:42 | PN ---
Progress Note, Physician Chief Complaint: awaiting SNF placement d/w CM in bed NAD no new c/o on lomotil; diarrhea better for now; will need GI outpt; also will need vascular sx f/u for AVF d/w pt - Current Medication List Current Medications: Active Medications Acetaminophen (Tylenol -) 650 mg PO Q6H PRN PRN Reason: PAIN Last Admin: 09/04/18 03:06 Dose: 650 mg Alprazolam (Xanax -) 0.25 mg PO BID PRN PRN Reason: ANXIETY Last Admin: 09/04/18 23:35 Dose: 0.25 mg Amitriptyline HCl (Elavil -) 50 mg PO HS [facility] Last Admin: 09/04/18 23:35 Dose: 50 mg Aspirin (Ecotrin -) 81 mg PO DAILY [facility] Last Admin: 09/04/18 09:45 Dose: 81 mg Atorvastatin Calcium (Lipitor -) 10 mg PO HS [facility] Last Admin: 09/04/18 23:35 Dose: 10 mg Calcitriol (Rocaltrol -) 0.25 mcg PO DAILY [facility] Last Admin: 09/04/18 09:45 Dose: 0.25 mcg Calcium Acetate (Phoslo -) 667 mg PO TIDCM [facility] Last Admin: 09/04/18 18:10 Dose: 667 mg Ferrous Sulfate (Feosol -) 325 mg PO BID [facility] Last Admin: 09/04/18 23:35 Dose: 325 mg Glipizide (Glucotrol -) 5 mg PO AM [facility] Last Admin: 09/04/18 06:24 Dose: Not Given Glipizide (Glucotrol Xl -) 2.5 mg PO HS [facility] Last Admin: 09/04/18 23:40 Dose: Not Given Heparin Sodium (Porcine) (Heparin -) 5,000 unit SQ BID [facility] Last Admin: 09/04/18 23:36 Dose: 5,000 unit Isosorbide Mononitrate (Imdur -) 30 mg PO DAILY [facility] Last Admin: 09/04/18 09:45 Dose: 30 mg Labetalol HCl (Normodyne -) 300 mg PO TID [facility] Last Admin: 09/04/18 23:35 Dose: 300 mg Loperamide HCl (Imodium -) 2 mg PO Q6H PRN PRN Reason: DIARRHEA Losartan Potassium (Cozaar -) 100 mg PO DAILY [facility] Last Admin: 09/04/18 09:44 Dose: 100 mg Nifedipine (Procardia Xl -) 90 mg PO DAILY [facility] Last Admin: 09/04/18 09:45 Dose: 90 mg Nifedipine (Procardia Xl -) 30 mg PO DAILY@2200 [facility] Last Admin: 09/04/18 23:35 Dose: 30 mg Nystatin (Mycostatin Ointment -) 1 applic TP BID [facility] Last Admin: 09/04/18 23:37 Dose: Not Given Ondansetron HCl (Zofran -) 8 mg PO Q6H PRN PRN Reason: NAUSEA Last Admin: 09/03/18 10:00 Dose: 8 mg - Objective Vital Signs: Vital Signs Temperature 98 F 09/04/18 22:00 Pulse Rate 72 09/04/18 22:00 Respiratory Rate 16 09/04/18 23:00 Blood Pressure 133/55 L 09/04/18 22:00 O2 Sat by Pulse Oximetry (%) 100 09/04/18 23:00 Constitutional: Yes: No Distress, Calm Eyes: Yes: Conjunctiva Clear HENT: Yes: Atraumatic Neck: Yes: Supple Cardiovascular: Yes: Regular Rate and Rhythm Respiratory: Yes: CTA Bilaterally Gastrointestinal: Yes: Soft. No: Tenderness Genitourinary: No: CVA Tenderness - Left, CVA Tenderness - Right Musculoskeletal: No: Joint Stiffness, Joint Swelling Extremities: No: Cold, Cool Edema: No Integumentary: No: Rash, Venous Stasis Changes Neurological: Yes: WNL, Alert, Oriented ...Motor Strength: WNL Psychiatric: Yes: WNL, Alert, Oriented. No: Agitated, Suicidal Ideation Labs: CBC, BMP 09/04/18 06:15 09/04/18 06:15 INR, PTT INR 0.88 (0.83-1.09) 09/03/18 07:00 - ....Imaging Other: Report Reviewed Assessment/Plan Pt. is a 83 y.o. F with extensive PMHx. including ESRD on HD, HTN, NIDDM, PVD, admitted after missed dyalsis x 1 week dyalsis per renal questran or lomotil for diarrhea; GI and vascular sx f/u outpt dw pt importance of compliance with meds, consults and procedures and to stop smoking falls DVT pfx awaiting SNF placement; pt agreed with plan; d/w pt and staff
[2018-09-05] MEDS: glipiZIDE 5 MG TABLET (FP) PO SCH (07:07)
[2018-09-05] MEDS: LABETALOL HCL 100 MG TABLET (FP) PO SCH ×2 (07:07→14:05)
[2018-09-05] MEDS: CALCIUM ACETATE 667 MG CAPSULE (FP) PO SCH ×3 (08:39→17:41)
[2018-09-05] MEDS ORDERED: PT OWN MED DRAWER 7, Y5N ONE (10:22)
[2018-09-05] MEDS: LOSARTAN POTASSIUM 50 MG TABLET (FP) PO SCH (10:30)
[2018-09-05] MEDS: ASPIRIN COATED 81 MG TABLET.EC PO SCH (10:30)
[2018-09-05] MEDS: CALCITRIOL 0.25 MCG CAPSULE (FP) PO SCH (10:31)
[2018-09-05] MEDS: HEPARIN NA (PORCINE) 5,000 UNITS/ML 1ML VIAL SQ SCH (10:31)
[2018-09-05] MEDS: FERROUS SO4 325 MG TABLET (FP) PO SCH (10:31)
[2018-09-05] MEDS: ISOSORBIDE MONONITRATE 30 MG TAB.SR.24H (FP) PO SCH (10:31)
[2018-09-05] MEDS: NIFEdipine E.R. 90 MG TABLET (FP) PO SCH (10:31)
[2018-09-05] MEDS: NYSTATIN 100000 UNIT/GM TOPICAL OINTMENT 15 GM TUBE TP SCH (10:32)
--- NOTE | 2018-09-05 11:39 | PN ---
Progress Note, Physician History of Present Illness: BP improved after medication adjustment. Tolerated HD. Diarrhea persists, now starting Imodium. - Current Medication List Current Medications: Active Medications Acetaminophen (Tylenol -) 650 mg PO Q6H PRN PRN Reason: PAIN Last Admin: 09/04/18 03:06 Dose: 650 mg Alprazolam (Xanax -) 0.25 mg PO BID PRN PRN Reason: ANXIETY Last Admin: 09/04/18 23:35 Dose: 0.25 mg Amitriptyline HCl (Elavil -) 50 mg PO HS [facility] Last Admin: 09/04/18 23:35 Dose: 50 mg Aspirin (Ecotrin -) 81 mg PO DAILY [facility] Last Admin: 09/05/18 10:30 Dose: 81 mg Atorvastatin Calcium (Lipitor -) 10 mg PO HS [facility] Last Admin: 09/04/18 23:35 Dose: 10 mg Calcitriol (Rocaltrol -) 0.25 mcg PO DAILY [facility] Last Admin: 09/05/18 10:31 Dose: 0.25 mcg Calcium Acetate (Phoslo -) 667 mg PO TIDCM [facility] Last Admin: 09/05/18 08:39 Dose: 667 mg Ferrous Sulfate (Feosol -) 325 mg PO BID [facility] Last Admin: 09/05/18 10:31 Dose: 325 mg Glipizide (Glucotrol -) 5 mg PO AM [facility] Last Admin: 09/05/18 07:07 Dose: 5 mg Glipizide (Glucotrol Xl -) 2.5 mg PO HS [facility] Last Admin: 09/04/18 23:40 Dose: Not Given Heparin Sodium (Porcine) (Heparin -) 5,000 unit SQ BID [facility] Last Admin: 09/05/18 10:31 Dose: 5,000 unit Isosorbide Mononitrate (Imdur -) 30 mg PO DAILY [facility] Last Admin: 09/05/18 10:31 Dose: 30 mg Labetalol HCl (Normodyne -) 300 mg PO TID [facility] Last Admin: 09/05/18 07:07 Dose: 300 mg Loperamide HCl (Imodium -) 2 mg PO Q6H PRN PRN Reason: DIARRHEA Losartan Potassium (Cozaar -) 100 mg PO DAILY [facility] Last Admin: 09/05/18 10:30 Dose: 100 mg Nifedipine (Procardia Xl -) 90 mg PO DAILY [facility] Last Admin: 09/05/18 10:31 Dose: 90 mg Nifedipine (Procardia Xl -) 30 mg PO DAILY@2200 [facility] Last Admin: 09/04/18 23:35 Dose: 30 mg Nystatin (Mycostatin Ointment -) 1 applic TP BID [facility] Last Admin: 09/05/18 10:32 Dose: 1 applic Ondansetron HCl (Zofran -) 8 mg PO Q6H PRN PRN Reason: NAUSEA Last Admin: 09/03/18 10:00 Dose: 8 mg - Objective Vital Signs: Vital Signs Temperature 97.5 F L 09/05/18 06:44 Pulse Rate 67 09/05/18 06:44 Respiratory Rate 20 09/05/18 06:44 Blood Pressure 119/88 09/05/18 06:44 O2 Sat by Pulse Oximetry (%) 100 09/04/18 23:00 Constitutional: Yes: No Distress, Calm, Thin Neck: Yes: Supple Cardiovascular: Yes: Regular Rate and Rhythm Respiratory: Yes: Regular, Diminished Gastrointestinal: Yes: Normal Bowel Sounds, Soft Labs: CBC, BMP 09/04/18 06:15 09/04/18 06:15 INR, PTT INR 0.88 (0.83-1.09) 09/03/18 07:00 Problem List - Problems (1) Pre-operative cardiovascular examination Code(s): Z01.810 - ENCOUNTER FOR PREPROCEDURAL CARDIOVASCULAR EXAMINATION (2) ESRD (end stage renal disease) Code(s): N18.6 - END STAGE RENAL DISEASE (3) Hemodialysis patient Code(s): Z99.2 - DEPENDENCE ON RENAL DIALYSIS (4) Anemia Code(s): D64.9 - ANEMIA, UNSPECIFIED Qualifiers: Anemia type: due to chronic kidney disease Chronic kidney disease stage: stage 5, not on chronic dialysis Qualified Code(s): N18.5 - Chronic kidney disease, stage 5; D63.1 - Anemia in chronic kidney disease (5) CAD (coronary artery disease) Code(s): I25.10 - ATHSCL HEART DISEASE OF [place] CORONARY ARTERY W/O ANG PCTRS Qualifiers: Coronary Disease-Associated Artery/Lesion type: [place] artery [place] vs. transplanted heart: [place] heart Associated angina: without angina Qualified Code(s): I25.10 - Atherosclerotic heart disease of [place] coronary artery without angina pectoris (6) Diabetes Code(s): E11.9 - TYPE 2 DIABETES MELLITUS WITHOUT COMPLICATIONS Qualifiers: Diabetes mellitus type: type 2 Diabetes mellitus complication status: with skin complications Diabetes mellitus complication detail: with foot ulcer (7) Hyperlipidemia associated with type 2 diabetes mellitus Code(s): E11.69 - TYPE 2 DIABETES MELLITUS WITH OTHER SPECIFIED COMPLICATION; E78.5 - HYPERLIPIDEMIA, UNSPECIFIED (8) Hypertensive heart disease Code(s): I11.9 - HYPERTENSIVE HEART DISEASE WITHOUT HEART FAILURE Qualifiers: Heart failure presence: without heart failure Qualified Code(s): I11.9 - Hypertensive heart disease without heart failure (9) PAD (peripheral artery disease) Code(s): I73.9 - PERIPHERAL VASCULAR DISEASE, UNSPECIFIED (10) S/P femoropopliteal bypass surgery Code(s): Z95.828 - PRESENCE OF OTHER VASCULAR IMPLANTS AND GRAFTS (11) Uncontrolled hypertension Code(s): I10 - ESSENTIAL (PRIMARY) HYPERTENSION Assessment/Plan 04/01/16 Nuc stress: Mild apical ischemia, inferoseptal ischemia LVEF 70% 06/01/2018 Echo: Normal RV and LV size and fxn, mild cLVH, mild MR, TR, AR 1. Pre-operative cardiovascular evaluation prior to LUE AVF 2. ESRD on HD with multiple missed dialysis treatments and hyperkalemia 3. CAD w/ h/o subendocardial ishemia in context of 4. HTN urgency, BP uncontrolled 5. Type 2 DM with nephropathy 6. Hypercholesterolemia 7. COPD h/o acute hypercapneic respiratory failure post ERCP related to anesthesia 8. Anemia of CKD 9. Diarrhea PLAN: 1. HD per renal, LUE vein mapping, plan for LUE AVF. Given low risk stress test within 5 years and absence of symptoms of acute coronary syndrome, decompensated CHF or malignant arrhythmia, may proceed with AVF from CV- standpoint w/o further testing 2. Placed on labetolol 300 tid, Procardia XL 90/30 qd, ASA 81 qd, Lipitor 10 qd , Imdur 30 qd, losartan 100qd 3. Will need placement in rehab/NH 4. Immodium as needed, colonoscopy as outpatient to evaluate for microscopic colitis
[2018-09-05] MEDS: ACETAMINOPHEN 325 MG TABLET (FP) PO PRN ×2 (11:49→18:14)
--- NOTE | 2018-09-05 13:47 | PN ---
Progress Note (short form) - Note Progress Note: Renal follow up for ESRD on HD Pt seen and examined at the bedside diarreha is improved but pt feels weak no sob, cp, abd pain, N/V Vital Signs Temperature 97.9 F 09/05/18 08:35 Pulse Rate 70 09/05/18 08:35 Respiratory Rate 20 09/05/18 08:35 Blood Pressure 149/85 09/05/18 08:35 O2 Sat by Pulse Oximetry (%) 100 09/04/18 23:00 Intake & Output 09/02/18 09/03/18 09/04/18 09/05/18 23:59 23:59 23:59 23:59 Intake Total 240 240 300 Balance 240 240 300 Weight 47.259 kg 48.648 kg 46.72 kg 47.826 kg NAD no LE edema CBC, BMP 09/04/18 06:15 09/04/18 06:15 Current Medications Acetaminophen (Tylenol -) 650 mg PO Q6H PRN PRN Reason: PAIN Last Admin: 09/05/18 11:49 Dose: 650 mg Alprazolam (Xanax -) 0.25 mg PO BID PRN PRN Reason: ANXIETY Last Admin: 09/04/18 23:35 Dose: 0.25 mg Amitriptyline HCl (Elavil -) 50 mg PO HS [facility] Last Admin: 09/04/18 23:35 Dose: 50 mg Aspirin (Ecotrin -) 81 mg PO DAILY [facility] Last Admin: 09/05/18 10:30 Dose: 81 mg Atorvastatin Calcium (Lipitor -) 10 mg PO HS [facility] Last Admin: 09/04/18 23:35 Dose: 10 mg Calcitriol (Rocaltrol -) 0.25 mcg PO DAILY [facility] Last Admin: 09/05/18 10:31 Dose: 0.25 mcg Calcium Acetate (Phoslo -) 667 mg PO TIDCM [facility] Last Admin: 09/05/18 11:50 Dose: 667 mg Ferrous Sulfate (Feosol -) 325 mg PO BID [facility] Last Admin: 09/05/18 10:31 Dose: 325 mg Glipizide (Glucotrol -) 5 mg PO AM [facility] Last Admin: 09/05/18 07:07 Dose: 5 mg Glipizide (Glucotrol Xl -) 2.5 mg PO HS [facility] Last Admin: 09/04/18 23:40 Dose: Not Given Heparin Sodium (Porcine) (Heparin -) 5,000 unit SQ BID [facility] Last Admin: 09/05/18 10:31 Dose: 5,000 unit Dextrose/Sodium Chloride (D5-1/2ns -) 1,000 mls @ 60 mls/hr IV ASDIR [facility] Isosorbide Mononitrate (Imdur -) 30 mg PO DAILY [facility] Last Admin: 09/05/18 10:31 Dose: 30 mg Labetalol HCl (Normodyne -) 300 mg PO TID [facility] Last Admin: 09/05/18 07:07 Dose: 300 mg Loperamide HCl (Imodium -) 2 mg PO Q6H PRN PRN Reason: DIARRHEA Last Admin: 09/05/18 11:49 Dose: 2 mg Losartan Potassium (Cozaar -) 100 mg PO DAILY [facility] Last Admin: 09/05/18 10:30 Dose: 100 mg Nifedipine (Procardia Xl -) 90 mg PO DAILY [facility] Last Admin: 09/05/18 10:31 Dose: 90 mg Nifedipine (Procardia Xl -) 30 mg PO DAILY@2200 [facility] Last Admin: 09/04/18 23:35 Dose: 30 mg Nystatin (Mycostatin Ointment -) 1 applic TP BID [facility] Last Admin: 09/05/18 10:32 Dose: 1 applic Ondansetron HCl (Zofran -) 8 mg PO Q6H PRN PRN Reason: NAUSEA Last Admin: 09/03/18 10:00 Dose: 8 mg 83 year old woman with hx of 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 #ESRD on HD with multiple missed dialysis treatments #Hyperkalemia #Metabolic acidosis #Renal Osteodystrophy #Hypertension #Hypocalcemia s/p [employer] yesterday, no acute need for dialysis today Continue management of diarrhea as per GI continued physical therapy will start gentle IVF today as pt had diarrhea and is weak continue present antihypertensive meds outpatient rehab placement pending Quentin Goyal DO
[2018-09-05] MEDS ORDERED: DEXTROSE 5%-0.45% SALINE 1,000 ML IV SCH (14:00)
[2018-09-05 14:46] VITALS: BP 113/57; PULSE 68; TEMP 97.8
== END 2018-09-05 19:10 | DRG 682 ==
LOC: JER 09:05 → JERBED 11:05 → J8W 15:34
PROVIDERS: ADMIT Internal Medicine; ATTEND Internal Medicine
PROC: 5A1D70Z Performance of Urinary Filtration, Intermittent, Less than 6 Hours Per Day (ICD-10-PCS; principal; 2018-08-28)
PROC: 5A1D70Z Performance of Urinary Filtration, Intermittent, Less than 6 Hours Per Day (ICD-10-PCS; 2018-08-31)
PROC: 5A1D70Z Performance of Urinary Filtration, Intermittent, Less than 6 Hours Per Day (ICD-10-PCS; 2018-09-04)
DX: I12.0 Hypertensive chronic kidney disease with stage 5 chronic kidney disease or end stage renal disease (principal); N18.6 End stage renal disease; E43 Unspecified severe protein-calorie malnutrition; E87.2 Acidosis; Z68.1 Body mass index [BMI] 19.9 or less, adult; J96.12 Chronic respiratory failure with hypercapnia; N17.9 Acute kidney failure, unspecified; E78.5 Hyperlipidemia, unspecified; I73.9 Peripheral vascular disease, unspecified; J44.9 Chronic obstructive pulmonary disease, unspecified; I11.9 Hypertensive heart disease without heart failure; E11.51 Type 2 diabetes mellitus with diabetic peripheral angiopathy without gangrene; F17.210 Nicotine dependence, cigarettes, uncomplicated; I25.10 Atherosclerotic heart disease of native coronary artery without angina pectoris; J45.909 Unspecified asthma, uncomplicated; I16.0 Hypertensive urgency; E83.51 Hypocalcemia; D63.1 Anemia in chronic kidney disease; E87.5 Hyperkalemia; N25.0 Renal osteodystrophy; K52.9 Noninfective gastroenteritis and colitis, unspecified; E11.22 Type 2 diabetes mellitus with diabetic chronic kidney disease; Z99.2 Dependence on renal dialysis; Z89.421 Acquired absence of other right toe(s); Z88.0 Allergy status to penicillin
CPT/HCPCS: 36415; 71045-TC-FY; 80048; 80053; 82962; 83735; 84100; 85025; 85027; 85610; 86704; 86706; 86708; 86803; 87324; 87340; 87449; 93005; 93010; 97116-GP; 97161-GP; 99285-25; J1644; J2997

== ENCOUNTER 2018-09-15 11:23 | Emergency (ER) | payer OTHER ==
[2018-09-15 11:30] VITALS: TEMP 97.4; BMI 18.6
--- NOTE | 2018-09-15 11:54 | PDOC ---
History of Present Illness - General Chief Complaint: Blood Sugar Problem Stated Complaint: BLOOD SUGAR PROBLEM Time Seen by Provider: 09/15/18 11:33 - History of Present Illness Initial Comments: Mervat Mckeon is an 83yo woman with a PMH of HTN, ESRD on HD, NIDDM, chronic diarrhea who presents from [facility] with symptomatic hyperglycemia to the 50's this morning. She was given dextrose by EMS with imrovement in her glucose to the 200s per report. Ms Mckeon states that she had an episode of hypoglycemia to 46 yesterday evening and requested to be sent to the ED then, but she was apparently unable to do so as she had dialysis yesterday. She had a snack and felt better, and she was able to complete dialysis without difficulty. When she woke up this morning, she felt "off." She states that she "thought she had a stroke." When her glucose was checked, it was 52, and an ambulance was called. Ms Mckeon states that she has been eating very little lately as she does not like the food in rehab, but she has been taking her medications as directed. She has been on the same DM meds for "years" without any changes. She denies any changes to her overall health over the past few days and specifically denies fevers/chills, nausea, vomiting, change in bowel habits, dysuria, rash, or open wounds. She has not had any pain, redness or drainage around her dialysis port. She believes the hypoglycemia is due to poor PO intake. Past History - Past Medical History Allergies/Adverse Reactions: Allergies Allergy/AdvReac Type Severity Reaction Status Date / Time iodine Allergy Rash Verified 09/15/18 11:25 penicillin V Allergy Verified 09/15/18 11:25 shellfish derived Allergy Rash Verified 09/15/18 11:25 vancomycin Allergy Verified 09/15/18 11:25 azithromycin AdvReac Verified 09/15/18 11:25 Home Medications: Ambulatory Orders Aspirin Coated [Ecotrin -] 81 mg PO DAILY tablet.ec 09/15/16 Glipizide 5 mg PO DAILY 06/26/17 Calcitriol [Calcitriol -] 0.25 mcg PO DAILY capsule 12/29/17 Ferrous Sulfate [Feosol] 325 mg PO BID ud 12/29/17 Alprazolam [Xanax] 0.25 mg PO BID 05/05/18 Amitriptyline HCl [Elavil -] 50 mg PO HS 05/05/18 Atorvastatin Ca [Lipitor] 10 mg PO HS 05/05/18 Isosorbide Mononitrate [Imdur -] 30 mg PO DAILY 05/05/18 Acetaminophen [Tylenol .Regular Strength -] 650 mg PO Q6H PRN tablet 06/05/18 Glipizide [Glipizide ER] 2.5 mg PO HS 07/14/18 Amitriptyline HCl [Elavil -] 50 mg PO HS 08/28/18 Ondansetron [Zofran -] 8 mg PO Q6H PRN MDD 4 08/28/18 Calcium Acetate [Phoslo -] 667 mg PO TIDCM capsule 09/04/18 Cholestyramine/Aspartame [Questran Light Packet -] 4 gm PO QID packet 09/04/18 Heparin - 5,000 unit SQ BID vial 09/04/18 Labetalol HCl [Normodyne -] 300 mg PO TID tablet 09/04/18 Loperamide HCl [Imodium -] 2 mg PO Q6H PRN capsule 09/04/18 Losartan Potassium [Cozaar -] 100 mg PO DAILY tablet 09/04/18 Nifedipine ER [Procardia XL -] 90 mg PO DAILY tab.er.24 09/04/18 Nystatin Ointment [Mycostatin Ointment -] 1 applic TP BID applic 09/04/18 Cephalexin Monohydrate [Keflex -] 500 mg PO BID #10 capsule 09/15/18 Ondansetron [Zofran *Odt*] 8 mg SL TID PRN 09/15/18 Anemia: Yes Asthma: Yes Cancer: No Cardiac Disorders: Yes (PAD,CAD) CVA: No COPD: No CHF: No DVT: No Dementia: No Diabetes: Yes GI Disorders: No Disorders: No HTN: Yes Hypercholesterolemia: Yes Liver Disease: No Seizures: No Thyroid Disease: No - Surgical History Abdominal Surgery: No Appendectomy: No Cardiac Surgery: Yes (FEMORAL BYPASS) Cholecystectomy: Yes Lung Surgery: No Neurologic Surgery: No Orthopedic Surgery: Yes (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) - Family Disease History Family Disease History: CA: Father (lung), Brother, Sister - Immunization History Immunization Up to Date: Yes - Suicide/Smoking/Psychosocial Hx Smoking Status: Yes Smoking History: Former smoker Have you smoked in the past 12 months: No Number of Cigarettes Smoked Daily: 20 If you are a former smoker, when did you quit?: 08/10/2012 Cigars Per Day: 30 Information on smoking cessation initiated: No 'Breaking Loose' booklet given: 08/28/18 Hx Alcohol Use: No Drug/Substance Use Hx: No Substance Use Type: None Hx Substance Use Treatment: No Review of Systems - Review of Systems Comments:: General: No fevers, no chills, +poor appetite, no malaise HEENT: No changes in vision, no changes in hearing, no congestion, no sore throat CV: No chest pain, no palpitations, no LE edema Pulm: No SOB, no cough, no wheezing GI: No nausea or vomiting, no change in bowel habits, no melena : No dysuria, +ESRD on HD, still makes urine Musc: No back pain, no joint swelling, no recent injury Skin: No rash, no lesions, no erythema Endo: No excessive thirst, no heat/cold intolerance Heme: No unusual bruising or bleeding, no swollen glands Neuro: No syncope, no numbness/tingling, no focal weakness Vasc: No claudication Psych: No recent change in mood, no SI or HI *Physical Exam - Vital Signs Last Vital Signs Temp Pulse Resp BP Pulse Ox 97.4 F L 62 18 185/89 H 100 09/15/18 11:25 09/15/18 11:25 09/15/18 11:25 09/15/18 11:25 09/15/18 11:25 - Physical Exam Comments: General: No acute distress HEENT: PERRL, EOMI, MMM, voice normal Cards: RRR, no murmur appreciated Chest: Dialysis catheter in place, clean dressing, no erythema or drainage Pulm: Comfortable on room air, clear to auscultation bilaterally Abd: Soft, nontender, nondistended : No CVA tenderness Ext: Atraumatic. No LE edema. ROM intact. Strength equal bilaterally. R foot s/ p 2x toe amp, well healed. No wounds noted. Vasc: Extremities WWP. Skin: Normal color, no rashes or lesions Neuro: A&Ox3, CN grossly intact, normal speech, motor/sensory grossly intact and symmetric Psych: Mood appropriate to situation Moderate Sedation - Procedure Monitoring Vital Signs: Procedure Monitoring Vital Signs Temperature 97.4 F L 09/15/18 11:25 Pulse Rate 62 09/15/18 11:25 Respiratory Rate 18 09/15/18 11:25 Blood Pressure 185/89 H 09/15/18 11:25 O2 Sat by Pulse Oximetry (%) 100 09/15/18 11:25 ED Treatment Course - LABORATORY CBC & Chemistry Diagram: 09/15/18 12:13 09/15/18 12:13 Medical Decision Making - Medical Decision Making 09/15/18 11:51 Mervat Mckeon is an 83yo woman with a PMH of HTN, ESRD on HD, NIDDM, chronic diarrhea who presents from [facility] with symptomatic hyperglycemia to the 50's this morning. She additionally reports a glucose of 46 yesterday evening before dialysis. - Hypoglycemia could be due to poor PO intake, accidentally taking excess medication, or occult infection. - Fingerstick ordered on arrival. Per EMS, came up to 200 after receiving dextrose - CBC, CMP, mag, phos, UA, UCx ordered 09/15/18 13:30 - Glucose recheck 101 on fingerstick - Labs reviewed. Notable for Cr 4.6, appears to be in pt's recent range. - UA with 7WBC, +leuk esterase, rare bacteria. Given recent hypoglycemia, may truly be a UTI. Culture was sent - Blood cultures sent as Ms Mckeon has an indwelling dialysis catheter 09/15/18 13:46 - Ordered repeat BGM to evaluate whether glucose drops again - Call placed to Dr Barahona, her PMD, regarding dispo 09/15/18 14:46 - Spoke to Dr Angela Barahona 30 minutes ago, OK with discharge back to [facility] given UTI and otherwise unremarkable workup - Advised Ms Mckeon of plan. She states that she "will not go back" and would "rather go out on the street," that we "cannot make her go back." - 2nd call to Dr Barahona, requests admission to hospitalist for potential placement. - Ceftriaxone ordered for presumed UTI - Repeat BGM 63, Patient now eating lunch, will recheck. Had not previously eaten today. 09/15/18 16:19 - Ms Mckeon continues to decline to go back to [facility] - Social work spoke with her, advised that she may have the SNF help arrange transport for her. Ms Clearly declines this option - Will recheck glucose to ensure that she is maintaining her glucose after eating 09/15/18 17:20 - BGM recheck was 110. 09/15/18 17:56 - Discussed with Dr Ramirez. Length of duration for glipizide is up to 24hrs, may be admitted for obs - Page to hospitalist for admission per request of Dr Barahona. 09/15/18 18:15 - Pt now requests to be discharged back to [facility] but would like her home dose of xanax. States she did not take her glipizide for several days due to low PO intake, unlikely to have repeate hypoglycemia. Will set up transportation. Will cancel admission request Discussed with Dr Garza. Ani Jade PGY1 09/15/18 18:17 *DC/Admit/Observation/Transfer Diagnosis at time of Disposition: Hypoglycemia, UTI (urinary tract infection) - Discharge Dispostion Disposition: HOME Condition at time of disposition: Stable Decision to Admit order: No - Prescriptions Prescriptions: Cephalexin Monohydrate [Keflex -] 500 mg PO BID #10 capsule - Referrals - Patient Instructions Printed Discharge Instructions: DI for Hypoglycemia Additional Instructions: Discharge Instructions: You were seen in the emergency department for low blood sugar. Your sugar was normal on arrival, but it dropped to the 60's a while later. However after eating, your sugar stayed around 100. - You were found to likely have a urinary tract infection on your urine test. You were given an antibiotic in the emergency department and will need to continue this at home. You have been prescribed cephalexin (keflex) 500mg to be taken twice daily for 5 days. Do not stop taking this medication early, even if you feel well. - Check your blood sugar regularly at home. You should check at every meal and before bed. Keep a record of these values so that you can discuss them with your primary doctor. - Hold your diabetes medications. Do not start taking them again until you see your doctor for follow up. - Make an appointment to see your doctor (Dr Barahona) for follow up on Monday or Monday next week. She was contacted to inform her that you were in the emergency room, and she will probably be expecting your call. - Seek immediate medical care if you have continued low blood sugar or if you continue to feel unwell and are concerned, or for any other medical emergency. - Post Discharge Activity
--- NOTE | 2018-09-15 12:03 | PDOC ---
Attending Attestation - HPI HPI: 09/15/18 12:58 The patient is a 83 year old female with a significant past medical history of diabetes, anemia, asthma, COPD, hypercholesterolemia, PVD, hypertension, ESRD ( MWF), and severe malnutrition who presents to the emergency department with hypoglycemia episode since yesterday. The patient reports that she was at [facility] yesterday when her glucose was read as 46. The patient reports that she wanted to come to the ED for further evaluation but, she had a dialysis appointment. The patient reports that since her recent discharge to rehab at [facility] she has not been eating as much as she should and, she attributes her symptoms to this. The patient denies any other symptoms. She denies any fever, chills, nausea, vomiting, diarrhea, constipation or urinary symptoms. She denies any chest pain, shortness or breath, headache or dizziness. Pt has not had any recent changes to her diabetes medications. Allergies: iodine, penicillin V, shellfish derived, vancomycin, azithromycin - Medical Decision Making 09/15/18 14:00 Dr. Angela Barahona was paged via phone service. Awaiting call back. 09/15/18 14:02 Case was discussed with Dr. Jade. 09/15/18 14:18 Dr. Angela Barahona was paged via phone service. Awaiting call back. 09/15/18 14:25 Case was discussed with Dr. Jade <Suni Teran - Last Filed: 09/15/18 14:39> - Resident Resident Name: Ani Jade - ED Attending Attestation I have performed the following: I have examined & evaluated the patient, The case was reviewed & discussed with the resident, I agree w/resident's findings & plan, Exceptions are as noted - Physicial Exam PE: 09/15/18 12:57 GENERAL: The patient is awake, alert, and fully oriented, Nontoxic - in no acute distress. HEAD: Normocephalic, atraumatic. EYES: extraocular movements intact, sclera anicteric, conjunctiva clear. ENT: Normal voice, Moist mucous membranes. NECK: Normal range of motion, supple LUNGS: Breath sounds equal, clear to auscultation bilaterally. No wheezes, no rhonchi, no rales. HEART: Regular rate and rhythm, normal S1 and S2 without murmur, rub or gallop. ABDOMEN: Soft, nontender, normoactive bowel sounds. No guarding, no rebound. . No CVA tenderness EXTREMITIES: Normal range of motion, no edema. NEUROLOGICAL: No facial assymetry, Normal speech, PSYCH: Normal mood, normal affect. SKIN: permcath in the R chest, c/d/i, Warm, Dry, normal turgor, - Medical Decision Making 09/15/18 12:00 83y F hx of ESRD(newly on dialysis), htn, PVD, NIDDM, chronic diarrhea, presents with symptomatic hypoglycemia to the 50s, was given d10 by EMS with improvement of her AMS. Per family, the pt wasnt feeling well last night, had her BGM checked and it was in the 40s, and went to dialysis, and felt the same waay today and was noted to be hypoglycemic to the 50s and sent to ED for evalution. Pt malka any other cmplaints including fever/chills, cough, cp, sob, n/v,d, diaphoresis, dysuria, melena/bpr. pt does not she is eating minimally due to the poor food quality. GENERAL: The patient is awake, alert, and fully oriented, Nontoxic - in no acute distress. HEAD: Normocephalic, atraumatic. EYES: extraocular movements intact, sclera anicteric, conjunctiva clear. ENT: Normal voice, Moist mucous membranes. NECK: Normal range of motion, supple LUNGS: Breath sounds equal, clear to auscultation bilaterally. No wheezes, no rhonchi, no rales. HEART: Regular rate and rhythm, normal S1 and S2 without murmur, rub or gallop. ABDOMEN: Soft, nontender, normoactive bowel sounds. No guarding, no rebound. . No CVA tenderness EXTREMITIES: Normal range of motion, no edema. No clubbing or cyanosis. No cords, erythema, or tenderness. NEUROLOGICAL: No facial assymetry, Normal speech, PSYCH: Normal mood, normal affect. SKIN: Warm, Dry, normal turgor, ddx - w/o occult infection, metabolic derangement will ck labs, blood cultures, ua, cxr, ekg will recheck her BGM was recently admitted to the hospital and was d/c to rehab Allergy: Iodine, penicillin, vancomycin, azithromycin Surgical: none Social: 1 ppd > 60 years, denies alcohol, denies recreational drugs PMD: Dr. Angela Barahona 09/15/18 14:07 the pts labs reviewed cr/bun noted, likely baseline for pt bgm on repeat slightly low - pt on glipizide - suspect hypoglycemia exacerbated due to the patients decerased oral intake case dw dr. Barahona by dr Jade, agreed with d/c her glipizide and recheck BGMs. pt UA with +LE, will dc with further management at [place] and encourage pt to continue oral intake <Austin Garza - Last Filed: 09/15/18 17:30> Heart Score/ECG Review - ECG Impressions Comment:: 09/15/18 17:06 Twelve-lead EKG was performed and reviewed by me. There is normal sinus rhythm with a normal rate. rate of 65 incomplete RBBB twi in ineferior leads <Austin Garza - Last Filed: 09/15/18 17:30> Attestations - Attestations 09/15/18 13:00 Documentation prepared by Suni Teran, acting as medical claims manager for Austin Garza MD. <Suni Teran - Last Filed: 09/15/18 14:39>
[2018-09-15 12:52] LABS: ALBUMIN 3.5 g/dl (3.4-5.0); ALK PHOS 81 U/L (45-117); ANION GAP 9 MMOL/L (8-16); BILIRUBIN,TOTAL 0.2 mg/dL (0.2-1); BLOOD UREA NITROGEN 29 mg/dL (7-18); CALCIUM 8.4 mg/dL (8.5-10.1); CHLORIDE 102 mmol/L (98-107); CO2 28 mmol/L (21-32); CREATININE 4.6 mg/dL (0.55-1.3); GLUCOSE,RANDOM 88 mg/dL (74-106); SGOT/AST 26 U/L (15-37); SGPT/ALT 34 U/L (13-61); SODIUM 139 mmol/L (136-145); TOT PROT 7.5 g/dl (6.4-8.2)
[2018-09-15 13:05] LABS: URINE APPEARANCE CLEAR; URINE BILIRUBIN NEGATIVE (<2.0 mg/dL); URINE COLOR LTYELLOW; URINE GLUCOSE (UA) 1+ (NEGATIVE); URINE KETONE NEGATIVE (NEGATIVE); URINE LEUK ESTERASE 1+ (NEGATIVE); URINE NITRITE NEGATIVE (NEGATIVE); URINE PROTEIN 2+ (NEGATIVE); URINE UROBILINOGEN NEGATIVE mg/dL (0.2-1.0)
[2018-09-15 13:08] LABS: EPI CELLS RARE /HPF (FEW); URINE BACTERIA RARE /hpf (NONE SEEN)
[2018-09-15 13:14] LABS: BASO % 1.3 % (0-2.0); EOS % 4.1 % (0-4.5); HEMATOCRIT 40.3 % (32.4-45.2); HEMOGLOBIN 13.9 GM/dL (10.7-15.3); LYMPH % 20.7 % (8-40); MCH 31.9 pg (25.7-33.7); MCHC 34.4 g/dl (32.0-36.0); MEAN CELL VOLUME 92.6 fl (80-96); MONO % 7.8 % (3.8-10.2); NEUT % 66.1 % (42.8-82.8); PLATELET COUNT 239 K/MM3 (134-434); RBC 4.36 M/mm3 (3.60-5.2); RDW 14.6 % (11.6-15.6); WHITE BLOOD COUNT 5.7 K/mm3 (4.0-10.0)
[2018-09-15] MEDS ORDERED: CEFTRIAXONE 1,000 MG in DEXTROSE 5%-WATER - 50 ML IVPB ONE (14:44)
[2018-09-15] MEDS ORDERED: CEFTRIAXONE 1 GM/50 ML BAG ONE (15:03)
[2018-09-15] MEDS ORDERED: ALPRAZolam 0.25 MG TABLET PO ONE (18:18)
[2018-09-15] MEDS ORDERED: ALPRAZolam 0.25 MG TABLET ONE (18:19)
[2018-09-15 18:23] VITALS: BP 166/82; PULSE 68
--- NOTE | 2018-09-16 11:21 | EKG ---
Test Reason : Blood Pressure : / mmHG Vent. Rate : 065 BPM Atrial Rate : 065 BPM P-R Int : 126 ms QRS Dur : 102 ms QT Int : 430 ms P-R-T Axes : 017 044 -28 degrees QTc Int : 447 ms NORMAL SINUS RHYTHM INCOMPLETE RIGHT BUNDLE BRANCH BLOCK NONSPECIFIC ST ABNORMALITY ABNORMAL ECG Confirmed by DELMY JACKSON MD ([id number]) on 09/16/2018 11:21:29 AM Referred By: Confirmed By:DELMY JACKSON MD
== END 2018-09-15 19:15 ==
LOC: JER 11:23
DX: E11.649 Type 2 diabetes mellitus with hypoglycemia without coma (principal); Z79.84 Long term (current) use of oral hypoglycemic drugs; N39.0 Urinary tract infection, site not specified; I25.10 Atherosclerotic heart disease of native coronary artery without angina pectoris; I13.11 Hypertensive heart and chronic kidney disease without heart failure, with stage 5 chronic kidney disease, or end stage renal disease; N18.6 End stage renal disease; Z99.2 Dependence on renal dialysis; I73.9 Peripheral vascular disease, unspecified; D64.9 Anemia, unspecified; J45.909 Unspecified asthma, uncomplicated; Z89.411 Acquired absence of right great toe; Z89.421 Acquired absence of other right toe(s); Z90.49 Acquired absence of other specified parts of digestive tract
CPT/HCPCS: 36415; 80053; 81003; 81015; 82962; 83735; 84100; 85025; 87040; 87086; 87186; 93005; 93010; 96365; 99285-25

== ENCOUNTER 2018-09-20 19:38 | Emergency (ER) | payer OTHER ==
--- NOTE | 2018-09-20 20:17 | PDOC ---
History of Present Illness - General Stated Complaint: FALL Time Seen by Provider: 09/20/18 20:17 - History of Present Illness Initial Comments: Mervat Mckeon is an 83yo woman with a PMH of HTN, ESRD on HD, NIDDM, chronic diarrhea who presents from [facility] with reported fall after weakness. States that this has happened a few times and describes an episode where she was walking without her walker and her legs gave out then she fell and hit her head. Denies LOC, syncope, nausea, vomiting, or FND. During our exam she continuously told the provider that she wanted to see a neurologist and wouldn' t be leaving without a neurology evaluation. 09/20/18 20:28 Past History - Past Medical History Allergies/Adverse Reactions: Allergies Allergy/AdvReac Type Severity Reaction Status Date / Time iodine Allergy Rash Verified 09/20/18 20:35 penicillin V Allergy Verified 09/20/18 20:35 shellfish derived Allergy Rash Verified 09/20/18 20:35 vancomycin Allergy Verified 09/20/18 20:35 azithromycin AdvReac Verified 09/20/18 20:35 Home Medications: Ambulatory Orders Aspirin Coated [Ecotrin -] 81 mg PO DAILY tablet.ec 09/15/16 Glipizide 5 mg PO DAILY 06/26/17 Calcitriol [Calcitriol -] 0.25 mcg PO DAILY capsule 12/29/17 Ferrous Sulfate [Feosol] 325 mg PO BID ud 12/29/17 Alprazolam [Xanax] 0.25 mg PO BID 05/05/18 Amitriptyline HCl [Elavil -] 50 mg PO HS 05/05/18 Atorvastatin Ca [Lipitor] 10 mg PO HS 05/05/18 Isosorbide Mononitrate [Imdur -] 30 mg PO DAILY 05/05/18 Acetaminophen [Tylenol .Regular Strength -] 650 mg PO Q6H PRN tablet 06/05/18 Glipizide [Glipizide ER] 2.5 mg PO HS 07/14/18 Amitriptyline HCl [Elavil -] 50 mg PO HS 08/28/18 Ondansetron [Zofran -] 8 mg PO Q6H PRN MDD 4 08/28/18 Calcium Acetate [Phoslo -] 667 mg PO TIDCM capsule 09/04/18 Cholestyramine/Aspartame [Questran Light Packet -] 4 gm PO QID packet 09/04/18 Heparin - 5,000 unit SQ BID vial 09/04/18 Labetalol HCl [Normodyne -] 300 mg PO TID tablet 09/04/18 Loperamide HCl [Imodium -] 2 mg PO Q6H PRN capsule 09/04/18 Losartan Potassium [Cozaar -] 100 mg PO DAILY tablet 09/04/18 Nifedipine ER [Procardia XL -] 90 mg PO DAILY tab.er.24 09/04/18 Nystatin Ointment [Mycostatin Ointment -] 1 applic TP BID applic 09/04/18 Cephalexin Monohydrate [Keflex -] 500 mg PO BID #10 capsule 09/15/18 Ondansetron [Zofran *Odt*] 8 mg SL TID PRN 09/15/18 Anemia: Yes Asthma: Yes Cancer: No Cardiac Disorders: Yes (PAD,CAD) CVA: No COPD: No CHF: No DVT: No Dementia: No Diabetes: Yes GI Disorders: No Disorders: No HTN: Yes Hypercholesterolemia: Yes Liver Disease: No Seizures: No Thyroid Disease: No - Surgical History Abdominal Surgery: No Appendectomy: No Cardiac Surgery: Yes (FEMORAL BYPASS) Cholecystectomy: Yes Lung Surgery: No Neurologic Surgery: No Orthopedic Surgery: Yes (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) - Family Disease History Family Disease History: CA: Father (lung), Brother, Sister - Immunization History Immunization Up to Date: Yes - Suicide/Smoking/Psychosocial Hx Smoking Status: Yes Smoking History: Former smoker Have you smoked in the past 12 months: No Number of Cigarettes Smoked Daily: 20 If you are a former smoker, when did you quit?: 08/10/2012 Cigars Per Day: 30 'Breaking Loose' booklet given: 08/28/18 Hx Alcohol Use: No Drug/Substance Use Hx: No Substance Use Type: None Hx Substance Use Treatment: No Review of Systems - Review of Systems Constitutional: No: Chills, Diaphoresis HEENTM: No: Eye Pain, Blurred Vision Respiratory: No: Cough, Orthopnea, SOB with Exertion Cardiac (ROS): No: Chest Pain, Edema ABD/GI: No: Diarrhea, Nausea : No: Burning, Dysuria Musculoskeletal: No: Joint Pain, Joint Swelling Integumentary: No: Bruising, Dryness, Lumps Neurological: Yes: Weakness, Unsteady Gait. No: Headache, Numbness, Tingling, Dizziness Psychiatric: No: Anxiety, Depression Endocrine: No: Flushing, Intolerance to Cold Hematologic/Lymphatic: No: Anemia, Blood Clots, Easy Bleeding *Physical Exam - Physical Exam General Appearance: Yes: Nourished, Appropriately Dressed. No: Apparent Distress HEENT: positive: EOMI, CHRISTINA, Normal ENT Inspection, Normal Voice Neck: positive: Trachea midline, Normal Thyroid, Supple. negative: Tender, Rigid Respiratory/Chest: positive: Lungs Clear, Normal Breath Sounds. negative: Chest Tender, Respiratory Distress, Accessory Muscle Use Cardiovascular: positive: Regular Rhythm, Regular Rate Gastrointestinal/Abdominal: positive: Normal Bowel Sounds, Flat, Soft. negative : Tender Lymphatic: negative: Adenopathy, Tenderness Musculoskeletal: positive: Normal Inspection (Although she has a generally slowed gait and she keeps complaining about the chance of her becming weak, her gait is steady and she has good strength and sensation.), Other Extremity: positive: Normal Capillary Refill, Normal Inspection, Normal Range of Motion. negative: Tender Integumentary: positive: Normal Color, Dry, Warm Neurologic: positive: Fully Oriented, Alert, Normal Response, Motor Strength 5/ 5. negative: Normal Mood/Affect (Easily agitated) Medical Decision Making - Medical Decision Making 83 year old patient presenting from [facility] rehab waking unsupervised without her walker presenting for acute leg weakness. Her exam was completely non focal and she was able to ambulate without issue with mild assistance. SHe had no neck pain whatsoever and was able to fully range her neck without difficulty. Head CT negative and will DC to [facility] with neuro referral and return precautions. 09/20/18 23:12 *DC/Admit/Observation/Transfer Diagnosis at time of Disposition: Fall Qualifiers: Encounter type: initial encounter Qualified Code(s): W19.XXXA - Unspecified fall, initial encounter - Discharge Dispostion Disposition: [facility] Condition at time of disposition: Stable Decision to Admit order: No - Referrals Referrals: Jacinda Frey MD [Primary Care Provider] - Wiley Chopra MD [Staff Physician] - - Patient Instructions Printed Discharge Instructions: How to Prevent Falls Additional Instructions: You have no bleed in your head. You have to use a walker when you ambulate. Please return to the ED if you have new or worsening symptoms. You can follow up with the neurologist on this sheet. - Post Discharge Activity
[2018-09-20 20:35] VITALS: BP 155/88; PULSE 68; TEMP 97.8; BMI 23.8
[2018-09-20] MEDS ORDERED: ACETAMINOPHEN 325 MG TABLET (FP) PO ONE (23:35)
--- NOTE | 2018-09-20 23:45 | PDOC ---
Attending Attestation - HPI HPI: 09/20/18 23:46 The patient is an 83 year old female with a significant past medical history of HTN, ESRD on HD, NIDDM, chronic diarrhea, who presents to the emergency department today s/p fall. The patient reports several other episodes of fall, including one where she was ambulating without her walker when her legs got weak, and she fell and hit her head. Patient denies LOC. Patient insists on seeing a neurologist while in the hospital for her lower extremity weakness. The patient denies chest pain, shortness of breath, headache and dizziness. Denies fever, chills, nausea, vomit, diarrhea and constipation. Denies dysuria, frequency, urgency and hematuria. 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 PCP: Dr. Frey <Vanesa Camarillo - Last Filed: 09/20/18 23:46> - Resident Resident Name: Pam Cortes - ED Attending Attestation I have performed the following: I have examined & evaluated the patient, The case was reviewed & discussed with the resident, I agree w/resident's findings & plan, Exceptions are as noted - Physicial Exam PE: 09/21/18 01:40 Agree with exam as documented by resident - Medical Decision Making 09/21/18 01:41 83F here after mechanical fall imaging negative for trauma dc home <Ta Castro - Last Filed: 09/21/18 01:41> Attestations - Attestations 09/20/18 23:47 Documentation prepared by Vanesa Camarillo, acting as medical director/head team physician for Ta Castro MD. <Vanesa Camarillo - Last Filed: 09/20/18 23:46>
[2018-09-20] MEDS ORDERED: ACETAMINOPHEN 325 MG TABLET (FP) ONE (23:48)
--- NOTE | 2018-09-21 00:55 | PDOC ---
*Physical Exam - Vital Signs Last Vital Signs Temp Pulse Resp BP Pulse Ox 97.8 F 68 18 155/88 97 09/20/18 20:32 09/20/18 20:32 09/20/18 20:32 09/20/18 20:32 09/20/18 20:32 ED Treatment Course - Medications Given in the ED: ED Medications Discontinued Medications Generic Name Dose Route Start Last Admin Trade Name Nafisa PRN Reason Stop Dose Admin Acetaminophen 650 mg 09/20/18 23:35 09/20/18 23:46 Tylenol - PO 09/20/18 23:36 650 mg ONCE ONE Administration Medical Decision Making - Medical Decision Making 09/21/18 00:[address] Cortes. Patient is an 83yo woman with a PMH of HTN, ESRD on HD, NIDDM, chronic diarrhea here today after mechanical fall. CT head normal. Lumbar x-ray shows no acute abnormalities. Pending cervical spine CT and discharge. 09/21/18 01:21 C-spine negative. D/w Dr Castro. Patient given return precautions and instructed to follow up with PCP. *DC/Admit/Observation/Transfer Diagnosis at time of Disposition: Fall Qualifiers: Encounter type: initial encounter Qualified Code(s): W19.XXXA - Unspecified fall, initial encounter - Discharge Dispostion Disposition: [facility] FACILITY Condition at time of disposition: Good Decision to Admit order: No - Referrals Referrals: Jacinda Frey MD [Primary Care Provider] - Wiley Chopra MD [Staff Physician] - - Patient Instructions Printed Discharge Instructions: How to Prevent Falls Additional Instructions: You have no bleed in your head. You have to use a walker when you ambulate. Please return to the ED if you have new or worsening symptoms. You can follow up with the neurologist on this sheet. - Post Discharge Activity
== END 2018-09-21 02:16 ==
LOC: JER 19:38
DX: S09.90XA Unspecified injury of head, initial encounter (principal); W18.39XA Other fall on same level, initial encounter; Y93.89 Activity, other specified; Y92.099 Unspecified place in other non-institutional residence as the place of occurrence of the external cause; Z87.891 Personal history of nicotine dependence; E11.9 Type 2 diabetes mellitus without complications; I10 Essential (primary) hypertension; E78.00 Pure hypercholesterolemia, unspecified; I25.10 Atherosclerotic heart disease of native coronary artery without angina pectoris
CPT/HCPCS: 70450-TC; 72100-TC-FY; 72125-TC; 99281-25

== ENCOUNTER 2018-09-25 15:52 | Emergency (ER) | payer OTHER ==
[2018-09-25 16:17] VITALS: BP 174/84; PULSE 71; TEMP 98; BMI 18.6
--- NOTE | 2018-09-25 16:42 | PDOC ---
History of Present Illness - General Chief Complaint: Injury Stated Complaint: FALL Time Seen by Provider: 09/25/18 16:42 - History of Present Illness Initial Comments: Mervat Mckeon is an 83yo woman with a PMH of HTN, ESRD on HD, NIDDM, chronic diarrhea who presents from [facility] with reported fall after weakness. States that this has happened a few times and describes an episode where she was walking without and she tripped and fell hitting the back of her had. Denies syncope or LOC. 09/25/18 16:43 Past History - Past Medical History Allergies/Adverse Reactions: Allergies Allergy/AdvReac Type Severity Reaction Status Date / Time iodine Allergy Rash Verified 09/25/18 16:17 penicillin V Allergy Verified 09/25/18 16:17 shellfish derived Allergy Rash Verified 09/25/18 16:17 vancomycin Allergy Verified 09/25/18 16:17 azithromycin AdvReac Verified 09/25/18 16:17 Home Medications: Ambulatory Orders Aspirin Coated [Ecotrin -] 81 mg PO DAILY tablet.ec 09/15/16 Glipizide 5 mg PO DAILY 06/26/17 Calcitriol [Calcitriol -] 0.25 mcg PO DAILY capsule 12/29/17 Ferrous Sulfate [Feosol] 325 mg PO BID ud 12/29/17 Alprazolam [Xanax] 0.25 mg PO BID 05/05/18 Amitriptyline HCl [Elavil -] 50 mg PO HS 05/05/18 Atorvastatin Ca [Lipitor] 10 mg PO HS 05/05/18 Isosorbide Mononitrate [Imdur -] 30 mg PO DAILY 05/05/18 Acetaminophen [Tylenol .Regular Strength -] 650 mg PO Q6H PRN tablet 06/05/18 Glipizide [Glipizide ER] 2.5 mg PO HS 07/14/18 Amitriptyline HCl [Elavil -] 50 mg PO HS 08/28/18 Ondansetron [Zofran -] 8 mg PO Q6H PRN MDD 4 08/28/18 Calcium Acetate [Phoslo -] 667 mg PO TIDCM capsule 09/04/18 Cholestyramine/Aspartame [Questran Light Packet -] 4 gm PO QID packet 09/04/18 Heparin - 5,000 unit SQ BID vial 09/04/18 Labetalol HCl [Normodyne -] 300 mg PO TID tablet 09/04/18 Loperamide HCl [Imodium -] 2 mg PO Q6H PRN capsule 09/04/18 Losartan Potassium [Cozaar -] 100 mg PO DAILY tablet 09/04/18 Nifedipine ER [Procardia XL -] 90 mg PO DAILY tab.er.24 09/04/18 Nystatin Ointment [Mycostatin Ointment -] 1 applic TP BID applic 09/04/18 Cephalexin Monohydrate [Keflex -] 500 mg PO BID #10 capsule 09/15/18 Ondansetron [Zofran *Odt*] 8 mg SL TID PRN 09/15/18 Anemia: Yes Asthma: Yes Cancer: No Cardiac Disorders: Yes (PAD,CAD) CVA: No COPD: No CHF: No DVT: No Dementia: No Diabetes: Yes GI Disorders: No Disorders: No HTN: Yes Hypercholesterolemia: Yes Liver Disease: No Seizures: No Thyroid Disease: No - Surgical History Abdominal Surgery: No Appendectomy: No Cardiac Surgery: Yes (FEMORAL BYPASS) Cholecystectomy: Yes Lung Surgery: No Neurologic Surgery: No Orthopedic Surgery: Yes (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) - Family Disease History Family Disease History: CA: Father (lung), Brother, Sister - Immunization History Immunization Up to Date: Yes - Suicide/Smoking/Psychosocial Hx Smoking Status: Yes Smoking History: Never smoked Have you smoked in the past 12 months: No Number of Cigarettes Smoked Daily: 20 If you are a former smoker, when did you quit?: 08/10/2012 Cigars Per Day: 30 Information on smoking cessation initiated: No 'Breaking Loose' booklet given: 08/28/18 Hx Alcohol Use: No Drug/Substance Use Hx: No Substance Use Type: None Hx Substance Use Treatment: No Review of Systems - Review of Systems Constitutional: No: Chills, Diaphoresis HEENTM: No: Eye Pain, Blurred Vision Respiratory: No: Cough, Orthopnea, Shortness of Breath Cardiac (ROS): No: Chest Pain, Edema ABD/GI: No: Diarrhea, Nausea, Vomiting : No: Burning, Dysuria, Discharge Integumentary: No: Bruising, Flushing, Lesions Neurological: Yes: Weakness. No: Headache, Numbness, Paresthesia Psychiatric: No: Anxiety, Depression Hematologic/Lymphatic: No: Anemia, Blood Clots, Easy Bleeding *Physical Exam - Vital Signs Last Vital Signs Temp Pulse Resp BP Pulse Ox 98.0 F 71 16 174/84 H 97 09/25/18 15:52 09/25/18 15:52 09/25/18 15:52 09/25/18 15:52 09/25/18 15:52 - Physical Exam General Appearance: Yes: Nourished, Appropriately Dressed. No: Apparent Distress HEENT: positive: EOMI, CHRISTINA, Normal ENT Inspection, Normal Voice Neck: positive: Trachea midline, Normal Thyroid, Supple. negative: Tender, Rigid Respiratory/Chest: positive: Lungs Clear, Normal Breath Sounds. negative: Chest Tender, Respiratory Distress, Accessory Muscle Use Cardiovascular: positive: Regular Rhythm, Regular Rate Gastrointestinal/Abdominal: positive: Normal Bowel Sounds, Flat, Soft. negative : Tender Lymphatic: negative: Adenopathy, Tenderness Musculoskeletal: positive: Decreased Range of Motion. negative: Normal Inspection (bilateral leg weakness) Extremity: positive: Normal Capillary Refill. negative: Normal Inspection, Normal Range of Motion, Tender Integumentary: positive: Normal Color, Warm. negative: Dry Neurologic: positive: Fully Oriented, Alert. negative: Normal Mood/Affect ( easily irritated), Normal Response, Motor Strength 5/5 (5/5 upper strength with 3/5 le strength) Moderate Sedation - Procedure Monitoring Vital Signs: Procedure Monitoring Vital Signs Temperature 98.0 F 09/25/18 15:52 Pulse Rate 71 09/25/18 15:52 Respiratory Rate 16 09/25/18 15:52 Blood Pressure 174/84 H 09/25/18 15:52 O2 Sat by Pulse Oximetry (%) 97 09/25/18 15:52 ED Treatment Course - LABORATORY CBC & Chemistry Diagram: 09/25/18 19:05 09/25/18 19:05 Medical Decision Making - Medical Decision Making 83 year old female with history of many falls but AOx4 and occasionally ornery. Patient CT head/ neck negative. Her mild headache on presentation has now resolved after cranberry juice. She will be DC'd to her rehab NH. She is ambulatory with mild assistance on discharge. 09/25/18 18:14 *DC/Admit/Observation/Transfer Diagnosis at time of Disposition: Falls Qualifiers: Encounter type: initial encounter Qualified Code(s): W19.XXXA - Unspecified fall, initial encounter - Discharge Dispostion Disposition: SNF FACILITY Condition at time of disposition: Stable Decision to Admit order: No - Referrals Referrals: Wiley Chopra MD [Staff Physician] - - Patient Instructions Additional Instructions: Please use the walker when you walk so you do not fall. Please follow up with Dr. Chopra. Please return to the ED for new or worsening symptoms. - Post Discharge Activity
--- NOTE | 2018-09-25 19:13 | PDOC ---
Attending Attestation - HPI HPI: 09/25/18 19:17 The patient is an 83 year old female with a significant past medical history of HTN, ESRD on HD, NIDDM, chronic diarrhea, and falls who presents from [facility] s /p fall secondary to lower extremity weakness. She denies syncope or LOC. She states she had been here multiple times requesting to be admitted and evaluated by neurology, however, denies having that done and would like it done at this time. The patient denies chest pain, shortness of breath, headache and dizziness. The patient denies fever, chills, nausea, vomit, diarrhea and constipation. The patient denies dysuria, frequency, urgency and hematuria. Allergies: NKDA Documentation prepared by Laura Flores, acting as medical office scheduler for Eunice Diaz MD. - Physicial Exam PE: 09/25/18 19:17 *Exam Limited. Pt refused cardiac and pulm exam. GENERAL: Well-appearing, well-nourished. No apparent distress. HEENT: Normocephalic, atraumatic. PERRL, EOM intact. ABDOMEN: Soft, non-distended, non-tender. EXTREMITIES: Normal ROM in all four extremities. No gross deformities. SKIN: Warm, dry. No rash NEUROLOGICAL: Gait unassessed. No focal neurological deficits. <Laura Flores - Last Filed: 09/25/18 19:17> - Resident Resident Name: [email or web address] - ED Attending Attestation I have performed the following: I have examined & evaluated the patient, The case was reviewed & discussed with the resident, I agree w/resident's findings & plan, Exceptions are as noted - Medical Decision Making 09/25/18 20:33 ct scan of the head no acute intracranial pathology,no fracture, no bleed <Eunice Diaz - Last Filed: 09/25/18 20:33>
[2018-09-25 19:24] LABS: HEMATOCRIT 34.6 % (32.4-45.2); HEMOGLOBIN 11.5 GM/dL (10.7-15.3); LYMPH % 18.1 % (8-40); MCH 31.4 pg (25.7-33.7); MCHC 33.3 g/dl (32.0-36.0); MEAN CELL VOLUME 94.2 fl (80-96); MEAN PLT VOLUME 8.3 fl (7.5-11.1); MONO % 7.8 % (3.8-10.2); NEUT % 67.1 % (42.8-82.8); PLATELET COUNT 284 K/MM3 (134-434); RBC 3.68 M/mm3 (3.60-5.2); WHITE BLOOD COUNT 7.2 K/mm3 (4.0-10.0)
[2018-09-25] MEDS ORDERED: ACETAMINOPHEN 500 MG TABLET (FP) PO ONE (19:56)
[2018-09-25] MEDS ORDERED: ACETAMINOPHEN 325 MG TABLET (FP) ONE (19:59)
[2018-09-25 20:31] LABS: ALBUMIN 3.4 g/dl (3.4-5.0); ALK PHOS 83 U/L (45-117); ANION GAP 14 MMOL/L (8-16); BILIRUBIN,TOTAL 0.3 mg/dL (0.2-1); BLOOD UREA NITROGEN 87 mg/dL (7-18); CALCIUM 8.8 mg/dL (8.5-10.1); CHLORIDE 110 mmol/L (98-107); CO2 18 mmol/L (21-32); GLUCOSE,RANDOM 119 mg/dL (74-106); POTASSIUM 4.8 mmol/L (3.5-5.1); SGOT/AST 17 U/L (15-37); SGPT/ALT 24 U/L (13-61); SODIUM 141 mmol/L (136-145); TOT PROT 7.2 g/dl (6.4-8.2)
[2018-09-25 20:51] LABS: CREATININE 8.2 mg/dL (0.55-1.3)
== END 2018-09-25 22:24 ==
LOC: JER 15:52
DX: R53.1 Weakness (principal); W18.39XA Other fall on same level, initial encounter; Z91.81 History of falling; Y93.89 Activity, other specified; Y92.128 Other place in nursing home as the place of occurrence of the external cause; Y99.8 Other external cause status; I12.0 Hypertensive chronic kidney disease with stage 5 chronic kidney disease or end stage renal disease; E11.22 Type 2 diabetes mellitus with diabetic chronic kidney disease; N18.6 End stage renal disease; N17.8 Other acute kidney failure; Z99.2 Dependence on renal dialysis; Z79.84 Long term (current) use of oral hypoglycemic drugs; E78.00 Pure hypercholesterolemia, unspecified; R19.7 Diarrhea, unspecified; D64.9 Anemia, unspecified; J45.909 Unspecified asthma, uncomplicated; I73.9 Peripheral vascular disease, unspecified; Z89.411 Acquired absence of right great toe; Z89.421 Acquired absence of other right toe(s); Z90.49 Acquired absence of other specified parts of digestive tract; Z88.0 Allergy status to penicillin; Z88.1 Allergy status to other antibiotic agents; Z91.013 Allergy to seafood; R26.89 Other abnormalities of gait and mobility; Z99.89 Dependence on other enabling machines and devices
CPT/HCPCS: 36415; 70450-TC; 72125-TC; 80053; 82962; 85025; 99281-25

== ENCOUNTER 2018-09-26 10:25 | Inpatient (IN) | payer OTHER ==
[2018-09-26 10:34] VITALS: BMI 18.6
[2018-09-26] MEDS ORDERED: diazePAM 2 MG TABLET PO ONE (12:15)
[2018-09-26] MEDS ORDERED: LIDOCAINE 5% TOPICAL PATCH TP ONE (12:15)
[2018-09-26] MEDS ORDERED: LIDOCAINE 5% TOPICAL PATCH ONE (12:40)
[2018-09-26] MEDS ORDERED: diazePAM 2 MG TABLET ONE (12:41)
[2018-09-26] MEDS ORDERED: ACETAMINOPHEN 325 MG TABLET (FP) ONE (12:56)
[2018-09-26 13:15] LABS: BASO % 1.3 % (0-2.0); EOS % 4.8 % (0-4.5); HEMATOCRIT 33.4 % (32.4-45.2); HEMOGLOBIN 11.3 GM/dL (10.7-15.3); LYMPH % 15.5 % (8-40); MCH 31.8 pg (25.7-33.7); MCHC 33.8 g/dl (32.0-36.0); MEAN PLT VOLUME 8.2 fl (7.5-11.1); MONO % 6.5 % (3.8-10.2); NEUT % 71.9 % (42.8-82.8); PLATELET COUNT 274 K/MM3 (134-434); RBC 3.55 M/mm3 (3.60-5.2); RDW 14.8 % (11.6-15.6); WHITE BLOOD COUNT 7.5 K/mm3 (4.0-10.0)
[2018-09-26 13:45] LABS: ALBUMIN 3.2 g/dl (3.4-5.0); ALK PHOS 84 U/L (45-117); ANION GAP 11 MMOL/L (8-16); BILIRUBIN,TOTAL 0.3 mg/dL (0.2-1); BLOOD UREA NITROGEN 87 mg/dL (7-18); CALCIUM 8.5 mg/dL (8.5-10.1); CHLORIDE 111 mmol/L (98-107); CO2 18 mmol/L (21-32); GLUCOSE,RANDOM 114 mg/dL (74-106); MAGNESIUM 2.6 mg/dL (1.8-2.4); PHOSPHOROUS 5.3 mg/dL (2.5-4.9); POTASSIUM 5.1 mmol/L (3.5-5.1); SGOT/AST 16 U/L (15-37); SGPT/ALT 25 U/L (13-61); SODIUM 140 mmol/L (136-145); TOT PROT 6.9 g/dl (6.4-8.2)
[2018-09-26 13:51] LABS: CREATININE 8.3 mg/dL (0.55-1.3)
--- NOTE | 2018-09-26 14:09 | PDOC ---
*Physical Exam - Vital Signs Last Vital Signs Temp Pulse Resp BP Pulse Ox 84 18 164/78 99 09/26/18 10:29 09/26/18 10:29 09/26/18 10:29 09/26/18 10:29 - Physical Exam Comments: 09/26/18 14:08 The patient was examined by [RAYMOND Morin] under my direct supervision. I personally evaluated the patient. I concur with the above findings and the plan of care. ED Treatment Course - LABORATORY CBC & Chemistry Diagram: 10/01/18 09:30 10/01/18 18:10 - ADDITIONAL ORDERS Additional order review: Laboratory Results 09/26/18 13:05 Sodium 140 Potassium 5.1 Chloride 111 H Carbon Dioxide 18 L Anion Gap 11 BUN 87 H Creatinine 8.3 H* Creat Clearance w eGFR 4.63 Random Glucose 114 H Calcium 8.5 Phosphorus 5.3 H Magnesium 2.6 H Total Bilirubin 0.3 AST 16 ALT 25 Alkaline Phosphatase 84 Total Protein 6.9 Albumin 3.2 L 09/26/18 13:05 RBC 3.55 L MCV 94.0 MCHC 33.8 RDW 14.8 MPV 8.2 Neutrophils % 71.9 Lymphocytes % 15.5 Monocytes % 6.5 Eosinophils % 4.8 H Basophils % 1.3 - Medications Given in the ED: ED Medications Discontinued Medications Generic Name Dose Route Start Last Admin Trade Name Freq PRN Reason Stop Dose Admin Diazepam 2 mg 09/26/18 12:15 09/26/18 13:15 Valium - PO 09/26/18 12:16 Not Given ONCE ONE Lidocaine 1 patch 09/26/18 12:15 09/26/18 13:13 Lidoderm Patch - TP 09/26/18 12:16 Not Given ONCE ONE Oxycodone/Acetaminophen 1 combo 09/26/18 12:15 09/26/18 13:15 Percocet 5/325 - PO 09/26/18 12:16 Not Given ONCE ONE *DC/Admit/Observation/Transfer Diagnosis at time of Disposition: Herniated disc, Lumbar nerve root impingement - Discharge Dispostion Condition at time of disposition: Stable - Referrals - Patient Instructions - Post Discharge Activity
--- NOTE | 2018-09-26 15:34 | PDOC ---
History of Present Illness - General Chief Complaint: Injury Stated Complaint: FALL Time Seen by Provider: 09/26/18 11:45 History Source: Patient Exam Limitations: No Limitations - History of Present Illness Initial Comments: 09/26/18 17:38 Patient is an 83-year-old female with PA MH of hypertension, end-stage renal disease on hemodialysis, NIDDM, chronic diarrhea, frequent falls, who presents to the ER from home status post fall to lower extremity weakness. Patient states she was walking and her legs felt weak so she fell down. Patient also states that she hit her head. Denies losing consciousness. She states that her back pain is along her right side and running down the leg. Denies fevers, chills, shortness of breath, headache, dizziness, nausea, vomiting, diarrhea, frequency, urgency and hematuria. Past History - Travel Traveled outside of the country in the last 30 days: No Close contact w/someone who was outside of country & ill: No - Past Medical History Allergies/Adverse Reactions: Allergies Allergy/AdvReac Type Severity Reaction Status Date / Time iodine Allergy Rash Verified 09/25/18 16:17 penicillin V Allergy Verified 09/25/18 16:17 shellfish derived Allergy Rash Verified 09/25/18 16:17 vancomycin Allergy Verified 09/25/18 16:17 azithromycin AdvReac Verified 09/25/18 16:17 Home Medications: Ambulatory Orders Aspirin Coated [Ecotrin -] 81 mg PO DAILY tablet.ec 09/15/16 Glipizide 5 mg PO DAILY 06/26/17 Calcitriol [Calcitriol -] 0.25 mcg PO DAILY capsule 12/29/17 Ferrous Sulfate [Feosol] 325 mg PO BID ud 12/29/17 Alprazolam [Xanax] 0.25 mg PO BID 05/05/18 Amitriptyline HCl [Elavil -] 50 mg PO HS 05/05/18 Atorvastatin Ca [Lipitor] 10 mg PO HS 05/05/18 Isosorbide Mononitrate [Imdur -] 30 mg PO DAILY 05/05/18 Acetaminophen [Tylenol .Regular Strength -] 650 mg PO Q6H PRN tablet 06/05/18 Glipizide [Glipizide ER] 2.5 mg PO HS 07/14/18 Amitriptyline HCl [Elavil -] 50 mg PO HS 08/28/18 Ondansetron [Zofran -] 8 mg PO Q6H PRN MDD 4 08/28/18 Calcium Acetate [Phoslo -] 667 mg PO TIDCM capsule 09/04/18 Cholestyramine/Aspartame [Questran Light Packet -] 4 gm PO QID packet 09/04/18 Heparin - 5,000 unit SQ BID vial 09/04/18 Labetalol HCl [Normodyne -] 300 mg PO TID tablet 09/04/18 Loperamide HCl [Imodium -] 2 mg PO Q6H PRN capsule 09/04/18 Losartan Potassium [Cozaar -] 100 mg PO DAILY tablet 09/04/18 Nifedipine ER [Procardia XL -] 90 mg PO DAILY tab.er.24 09/04/18 Nystatin Ointment [Mycostatin Ointment -] 1 applic TP BID applic 09/04/18 Cephalexin Monohydrate [Keflex -] 500 mg PO BID #10 capsule 09/15/18 Ondansetron [Zofran *Odt*] 8 mg SL TID PRN 09/15/18 Anemia: Yes Asthma: Yes Cancer: No Cardiac Disorders: Yes (PAD,CAD) CVA: No COPD: No CHF: No DVT: No Dementia: No Diabetes: Yes GI Disorders: No Disorders: No HTN: Yes Hypercholesterolemia: Yes Liver Disease: No Seizures: No Thyroid Disease: No - Surgical History Abdominal Surgery: No Appendectomy: No Cardiac Surgery: Yes (FEMORAL BYPASS) Cholecystectomy: Yes Lung Surgery: No Neurologic Surgery: No Orthopedic Surgery: Yes (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) - Family Disease History Family Disease History: CA: Father (lung), Brother, Sister - Immunization History Immunization Up to Date: Yes - Suicide/Smoking/Psychosocial Hx Smoking Status: Yes Smoking History: Current every day smoker Have you smoked in the past 12 months: Yes Number of Cigarettes Smoked Daily: 3 If you are a former smoker, when did you quit?: 08/10/2012 Cigars Per Day: 30 Information on smoking cessation initiated: No 'Breaking Loose' booklet given: 08/28/18 Hx Alcohol Use: No Drug/Substance Use Hx: No Substance Use Type: None Hx Substance Use Treatment: No Review of Systems - Review of Systems Able to Perform ROS?: Yes Comments:: 09/26/18 13:23 CONSTITUTIONAL: Present: falls Absent: fever, chills, diaphoresis, generalized weakness, malaise , loss of appetite HEENT: Absent: rhinorrhea, nasal congestion, throat pain, throat swelling, difficulty swallowing, mouth swelling, ear pain, eye pain, visual Changes CARDIOVASCULAR: Absent: chest pain, loss of consciousness, palpitations, irregular heart rate, peripheral edema RESPIRATORY: Absent: cough, shortness of breath, dyspnea with exertion, orthopnea, wheezing, stridor, hemoptysis GASTROINTESTINAL: Absent: abdominal pain, abdominal distension, nausea, vomiting, diarrhea, constipation, melena, hematochezia GENITOURINARY: Absent: dysuria, frequency, urgency, hesitancy, hematuria, flank pain, genital pain MUSCULOSKELETAL: Present: low back pain Absent: myalgia, arthralgia, joint swelling SKIN: Absent: rash, itching, pallor HEMATOLOGIC/IMMUNOLOGIC: Absent: easy bleeding, easy bruising, lymphadenopathy, frequent infections ENDOCRINE: Absent: unexplained weight gain, unexplained weight loss, heat intolerance, cold intolerance NEUROLOGIC: Absent: headache, focal weakness or paresthesias, dizziness, unsteady gait, seizure, mental status changes, bladder or bowel incontinence PSYCHIATRIC: Absent: anxiety, depression, suicidal or homicidal ideation, hallucinations. Is the patient limited Telugu proficient: No *Physical Exam - Vital Signs Last Vital Signs Temp Pulse Resp BP Pulse Ox 84 18 164/78 99 09/26/18 10:29 09/26/18 10:29 09/26/18 10:29 09/26/18 10:29 - Physical Exam Comments: 09/26/18 17:23 GENERAL: Well developed, well nourished. Awake and alert. No acute distress. HEENT: Normocephalic, atraumatic. PERRLA, EOMI. No conjunctival pallor. Sclera are non- icteric. Moist mucous membranes. Oropharynx is clear. NECK: Supple. Full ROM. No JVD. Carotid pulses 2+ and symmetric, without bruits. No thyromegaly. No lymphadenopathy. CARDIOVASCULAR: Regular rate and rhythm. No murmurs, rubs, or gallops. Distal pulses are 2+ and symmetric. PULMONARY: No evidence of respiratory distress. Lungs clear to auscultation bilaterally. No wheezing, rales or rhonchi. ABDOMINAL: Soft. Non-tender. Non-distended. No rebound or guarding. No organomegaly. Normoactive bowel sounds. MUSCULOSKELETAL TTP of the R paraspinous muscles, L3-L5, with palpable knot and midline tenderness. Normal range of motion at all joints. No CVA tenderness. EXTREMITIES: No cyanosis. No clubbing. No edema. No calf tenderness. SKIN: Warm and dry. Normal capillary refill. No rashes. No jaundice. NEUROLOGICAL: Alert, awake, appropriate. Cranial nerves 2-12 intact. No deficits to light touch and temperature in face, upper extremities and lower extremities. No motor deficits in the in face, upper extremities and lower extremities. Normoreflexic in the upper and lower extremities. Normal speech. Toes are down- going bilaterally. Gait is normal without ataxia. PSYCHIATRIC: Cooperative. Good eye contact. Appropriate mood and affect. Moderate Sedation - Procedure Monitoring Vital Signs: Procedure Monitoring Vital Signs Temperature Pulse Rate 84 09/26/18 10:29 Respiratory Rate 18 09/26/18 10:29 Blood Pressure 164/78 09/26/18 10:29 O2 Sat by Pulse Oximetry (%) 99 09/26/18 10:29 ED Treatment Course - LABORATORY CBC & Chemistry Diagram: 09/26/18 13:05 09/26/18 13:05 - ADDITIONAL ORDERS Additional order review: Laboratory Results 09/26/18 13:05 Sodium 140 Potassium 5.1 Chloride 111 H Carbon Dioxide 18 L Anion Gap 11 BUN 87 H Creatinine 8.3 H* Creat Clearance w eGFR 4.63 Random Glucose 114 H Calcium 8.5 Phosphorus 5.3 H Magnesium 2.6 H Total Bilirubin 0.3 AST 16 ALT 25 Alkaline Phosphatase 84 Total Protein 6.9 Albumin 3.2 L 09/26/18 13:05 RBC 3.55 L MCV 94.0 MCHC 33.8 RDW 14.8 MPV 8.2 Neutrophils % 71.9 Lymphocytes % 15.5 Monocytes % 6.5 Eosinophils % 4.8 H Basophils % 1.3 - RADIOLOGY Radiology Studies Ordered: Category Date Time Status HEAD CT WITHOUT CONTRAST [CT] Stat CT Scan 09/26/18 12:[address] W/O CONTRAST [CT] Stat CT Scan 09/26/18 12:12 Completed - Medications Given in the ED: ED Medications Discontinued Medications Generic Name Dose Route Start Last Admin Trade Name Freq PRN Reason Stop Dose Admin Diazepam 2 mg 09/26/18 12:15 09/26/18 13:15 Valium - PO 09/26/18 12:16 Not Given ONCE ONE Lidocaine 1 patch 09/26/18 12:15 09/26/18 13:13 Lidoderm Patch - TP 09/26/18 12:16 Not Given ONCE ONE Oxycodone/Acetaminophen 1 combo 09/26/18 12:15 09/26/18 13:15 Percocet 5/325 - PO 09/26/18 12:16 Not Given ONCE ONE Medical Decision Making - Medical Decision Making 09/26/18 17:31 -Pt presents to the ED for evaluation for falls and low back pain. Pt was seen last night in our ED -Pt with TTP of the R paraspinous muscles, L3-L5, with palpable knot and midline tenderness. -No fever. No saddle anesthesia or bladder/bowel incontinence. No CVA tenderness. -Pt is neurologically intact on exam with no focal findings. -Given multiple falls and complaints of weakness in the legs; lumbar spine CT ordered -CT shows impinged nerve root to the R L4/L5 with associated herniated disc -Most likely the cause of her falls -Tylenol given for pain; pt refusing all other medication at this time. -Lab work is unremarkable; K+ WNL -Pt unsure of last dialysis; however, K is normal -Will place patient for admission for neuro follow up and MRI -Pt endorsed to Dr. Barahona. *DC/Admit/Observation/Transfer Diagnosis at time of Disposition: Lumbar nerve root impingement Herniated disc Qualifiers: Spinal region: lumbar Qualified Code(s): M51.26 - Other intervertebral disc displacement, lumbar region - Discharge Dispostion Condition at time of disposition: Stable Decision to Admit order: Yes - Referrals - Patient Instructions - Post Discharge Activity
[2018-09-26] MEDS ORDERED: LOPERAMIDE HCL 2 MG CAPSULE PO PRN (21:54)
[2018-09-26] MEDS ORDERED: MORPHINE SULFATE 2 MG/ML VIAL IVPB PRN (22:00)
[2018-09-26] MEDS ORDERED: LABETALOL HCL 100 MG TABLET (FP) PO SCH (22:00)
[2018-09-26] MEDS: AMITRIPTYLINE HCL 25 MG TABLET (FP) PO SCH (22:53)
[2018-09-26] MEDS: LIDOCAINE PATCH REMOVAL MC SCH (22:54)
[2018-09-26] MEDS: glipiZIDE-XL 2.5 MG TAB.ER.24 PO SCH (22:54)
[2018-09-26] MEDS: NYSTATIN 100000 UNIT/GM TOPICAL OINTMENT 15 GM TUBE TP SCH (22:54)
[2018-09-26] MEDS: FERROUS SO4 325 MG TABLET (FP) PO SCH (22:54)
[2018-09-26] MEDS: HEPARIN NA (PORCINE) 5,000 UNITS/ML 1ML VIAL SQ SCH (22:54)
[2018-09-26] MEDS: ATORVASTATIN CA 10 MG TABLET (FP) PO SCH (22:54)
[2018-09-26] MEDS: CHOLESTYRAMINE/ASPARTAME 4 GM PACKET PO SCH (22:54)
[2018-09-26] MEDS: LABETALOL HCL 200 MG, LABETALOL HCL 100 MG PO SCH (22:55)
[2018-09-27] MEDS: ATORVASTATIN CA 10 MG TABLET (FP) PO SCH
[2018-09-27] MEDS ORDERED: glipiZIDE 5 MG TABLET (FP) ONE ×2 (06:55→22:10)
[2018-09-27] MEDS ORDERED: LABETALOL HCL 100 MG TABLET (FP) ONE ×3 (06:55→22:09)
[2018-09-27] MEDS: glipiZIDE 5 MG TABLET (FP) PO SCH (07:13)
[2018-09-27] MEDS: LABETALOL HCL 200 MG, LABETALOL HCL 100 MG PO SCH ×3 (07:13→23:00)
[2018-09-27] MEDS: CALCIUM ACETATE 667 MG CAPSULE (FP) PO SCH ×3 (09:03→17:38)
[2018-09-27] MEDS: HEPARIN NA (PORCINE) 5,000 UNITS/ML 1ML VIAL SQ SCH ×2 (09:04→23:00)
[2018-09-27] MEDS: ASPIRIN COATED 81 MG TABLET.EC PO SCH (09:04)
[2018-09-27] MEDS: FERROUS SO4 325 MG TABLET (FP) PO SCH ×2 (09:04→23:19)
[2018-09-27] MEDS: LOSARTAN POTASSIUM 50 MG TABLET (FP) PO SCH (09:04)
[2018-09-27] MEDS: NYSTATIN 100000 UNIT/GM TOPICAL OINTMENT 15 GM TUBE TP SCH (09:05)
[2018-09-27] MEDS: NIFEdipine E.R. 90 MG TABLET (FP) PO SCH (09:05)
[2018-09-27] MEDS: ISOSORBIDE MONONITRATE 30 MG TAB.SR.24H (FP) PO SCH (09:05)
[2018-09-27] MEDS: CHOLESTYRAMINE/ASPARTAME 4 GM PACKET PO SCH ×3 (09:05→17:39)
[2018-09-27] MEDS: CALCITRIOL 0.25 MCG CAPSULE (FP) PO SCH (09:06)
--- NOTE | 2018-09-27 09:06 | HP ---
Admitting History and Physical - Primary Care Physician PCP: Angela Barahona S - Admission Chief Complaint: s/p fall back pain History of Present Illness: Patient is an 83-year-old female with PA MH of hypertension, end-stage renal disease on hemodialysis, NIDDM, chronic diarrhea, frequent falls, who presents to the ER from home status post fall sec to lower extremities weakness. Patient states she was walking and her legs felt weak so she fell down. Patient also states that she hit her head. Denies losing consciousness. She states that her back pain is along her right side and running down the leg. Denies fevers, chills, shortness of breath, headache, dizziness, nausea, vomiting, diarrhea, frequency, urgency and hematuria. Pt was recently DCd home from SNF/NH; missed dialysis for 1 week said she could not arrange transportation b/o financial reasons. pt seen in ER; said she was seen by psych doctors and was admitted to psych unit (although dw pt [facility] does not have a psych unit and no psych drs were called to see her now) might confuse it with [facility] History Source: Patient Limitations to Obtaining History: Clinical Condition - Past Medical History Cardiovascular: Yes: HTN, Hyperlipdemia, Murmur, Other (PAD) Pulmonary: Yes: Asthma, COPD Hepatobiliary: Yes: Cholelithiasis, Choledocholithiasis Renal/: Yes: Renal Inusuff Heme/Onc: Yes: Anemia Infectious Disease: Yes: Other (history of osteomyelitis in the past) Endocrine: Yes: Diabetes Mellitus - Past Surgical History Past Surgical History: Yes: Amputation (1-st R toe amputation), Bypass (Right fem pop bypass) - Smoking History Smoking history: Current every day smoker Have you smoked in the past 12 months: Yes Aproximately how many cigarettes per day: 3 If you are a former smoker, when did you quit?: 08/10/2012 - Alcohol/Substance Use Hx Alcohol Use: No History of Substance Use: reports: None - Social History Usual Living Arrangement: Yes: Alone ADL: Independent 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, 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, 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 Travel: No Home Medications - Allergies Allergies/Adverse Reactions: Allergies Allergy/AdvReac Type Severity Reaction Status Date / Time iodine Allergy Rash Verified 09/25/18 16:17 penicillin V Allergy Verified 09/25/18 16:17 shellfish derived Allergy Rash Verified 09/25/18 16:17 vancomycin Allergy Verified 09/25/18 16:17 azithromycin AdvReac Verified 09/25/18 16:17 - Home Medications Home Medications: Ambulatory Orders Aspirin Coated [Ecotrin -] 81 mg PO DAILY tablet.ec 09/15/16 Glipizide 5 mg PO DAILY 06/26/17 Calcitriol [Calcitriol -] 0.25 mcg PO DAILY capsule 12/29/17 Ferrous Sulfate [Feosol] 325 mg PO BID ud 12/29/17 Alprazolam [Xanax] 0.25 mg PO BID 05/05/18 Amitriptyline HCl [Elavil -] 50 mg PO HS 05/05/18 Atorvastatin Ca [Lipitor] 10 mg PO HS 05/05/18 Isosorbide Mononitrate [Imdur -] 30 mg PO DAILY 05/05/18 Acetaminophen [Tylenol .Regular Strength -] 650 mg PO Q6H PRN tablet 06/05/18 Glipizide [Glipizide ER] 2.5 mg PO HS 07/14/18 Calcium Acetate [Phoslo -] 667 mg PO TIDCM capsule 09/04/18 Cholestyramine/Aspartame [Questran Light Packet -] 4 gm PO QID packet 09/04/18 Labetalol HCl [Normodyne -] 300 mg PO TID tablet 09/04/18 Loperamide HCl [Imodium -] 2 mg PO Q6H PRN capsule 09/04/18 Losartan Potassium [Cozaar -] 100 mg PO DAILY tablet 09/04/18 Nifedipine ER [Procardia XL -] 90 mg PO DAILY tab.er.24 09/04/18 Nystatin Ointment [Mycostatin Ointment -] 1 applic TP BID applic 09/04/18 Cephalexin Monohydrate [Keflex -] 500 mg PO BID #10 capsule 09/15/18 Ondansetron [Zofran *Odt*] 8 mg SL TID PRN 09/15/18 Family Disease History - Family Disease History Family Disease History: CA: Father (lung ca), Mother (, lung ca), Sister (lung ca) Review of Systems - Review of Systems Constitutional: denies: Chills, Fever Eyes: denies: Blind Spots, Blurred Vision HENT: denies: Ear Pain, Epistaxis Cardiovascular: denies: Chest Pain, Edema, Shortness of Breath Respiratory: denies: Cough, SOB Gastrointestinal: denies: Abdominal Pain, Diarrhea, Vomiting Genitourinary: denies: Dysuria, Flank Pain Musculoskeletal: reports: Back Pain Integumentary: denies: Bruising, Eczema Neurological: reports: Confusion, Unsteady Gait, Weakness (general). denies: Change in LOC, Change in Speech, Dizziness Hematology/Lymphatic: denies: Easily Bruised, Excessive Bleeding Psychiatric: reports: Anxiety. denies: Suicidal Physical Examination Vital Signs: Vital Signs Temperature 98.5 F 09/26/18 19:07 Pulse Rate 80 09/27/18 07:57 Respiratory Rate 17 09/27/18 07:57 Blood Pressure 155/87 09/27/18 07:57 O2 Sat by Pulse Oximetry (%) 99 09/27/18 07:57 Constitutional: Yes: Anxious Eyes: Yes: Conjunctiva Clear HENT: Yes: Atraumatic Neck: Yes: Supple Cardiovascular: Yes: Regular Rate and Rhythm Respiratory: Yes: CTA Bilaterally Gastrointestinal: Yes: Soft. No: Tenderness Renal/: No: Hematuria Musculoskeletal: No: Joint Stiffness, Joint Swelling Extremities: No: Cold, Cool, Cyanosis, External Rotation Edema: No Integumentary: No: Rash, Venous Stasis Changes Neurological: Yes: WNL, Alert, Oriented. No: Tremors ...Motor Strength: WNL Psychiatric: Yes: WNL, Alert, Oriented. No: Agitated Labs: CBC, BMP 09/26/18 13:05 09/26/18 13:05 Imaging - Results Chest X-ray: Report Reviewed Other: Report Reviewed Assessment/Plan Patient is an 83-year-old female with PA MH of hypertension, end-stage renal disease on hemodialysis, NIDDM, chronic diarrhea, frequent falls, non compliant with dialysis b/o financial reasons admitted via ER from home status post fall sec to lower extremities weakness. Possible nerve compression on spine CT neurology, PT and rehab eval pain meds prn dialysis per renal DVT pfx falls PFX d/w pt and staff
[2018-09-27] MEDS ORDERED: SODIUM CHLORIDE 250 ML IV PRN (11:19)
--- NOTE | 2018-09-27 12:24 | CONSULT ---
Consult - text type - Consultation Consultation Note: Renal Consult for ESRD on HD This is a 83 year old woman with hx of ESRD on Hd (twice weekly), DM, Hypertension, hyperlipidemia who presented s/p fall with complaints of weak legs. Pt missed last dialysis on Monday. pt denies any sob, cp, abd pain, N/V/ D. Making urine still. No leg swelling. No dizziness. Pt is known to be non- compliant with dialysis. PMhx: as above Allergies: NKDA Family Hx: NC Social hx: No T/A/D ROS: as per HPI, all other ros negative Home Medications Medication Instructions Recorded Aspirin Coated [Ecotrin -] 81 mg PO DAILY tablet.ec 09/15/16 Glipizide 5 mg PO DAILY 06/26/17 Calcitriol [Calcitriol -] 0.25 mcg PO DAILY capsule 12/29/17 Ferrous Sulfate [Feosol] 325 mg PO BID ud 12/29/17 Alprazolam [Xanax] 0.25 mg PO BID 05/05/18 Amitriptyline HCl [Elavil -] 50 mg PO HS 05/05/18 Atorvastatin Ca [Lipitor] 10 mg PO HS 05/05/18 Isosorbide Mononitrate [Imdur -] 30 mg PO DAILY 05/05/18 Acetaminophen [Tylenol .Regular 650 mg PO Q6H PRN tablet 06/05/18 Strength -] Glipizide [Glipizide ER] 2.5 mg PO HS 07/14/18 Calcium Acetate [Phoslo -] 667 mg PO TIDCM capsule 09/04/18 Cholestyramine/Aspartame [Questran 4 gm PO QID packet 09/04/18 Light Packet -] Labetalol HCl [Normodyne -] 300 mg PO TID tablet 09/04/18 Loperamide HCl [Imodium -] 2 mg PO Q6H PRN capsule 09/04/18 Losartan Potassium [Cozaar -] 100 mg PO DAILY tablet 09/04/18 Nifedipine ER [Procardia XL -] 90 mg PO DAILY tab.er.24 09/04/18 Nystatin Ointment [Mycostatin 1 applic TP BID applic 09/04/18 Ointment -] Cephalexin Monohydrate [Keflex -] 500 mg PO BID #10 capsule 09/15/18 Ondansetron [Zofran *Odt*] 8 mg SL TID PRN 09/15/18 Vital Signs Temperature 97.8 F 09/27/18 09:59 Pulse Rate 77 09/27/18 09:59 Respiratory Rate 15 09/27/18 09:59 Blood Pressure 203/98 H 09/27/18 11:18 O2 Sat by Pulse Oximetry (%) 99 09/27/18 07:57 NAD awake and alert neck supple RRR CTA soft NT/ND no LE edema, clubbing or cyanosis No N/V/D CBC, BMP 09/26/18 13:05 09/26/18 13:05 Current Medications Acetaminophen (Tylenol -) 650 mg PO Q6H PRN PRN Reason: PAIN Alprazolam (Xanax -) 0.25 mg PO BID PRN PRN Reason: ANXIETY Amitriptyline HCl (Elavil -) 50 mg PO HS [facility] Last Admin: 09/26/18 22:53 Dose: Not Given Aspirin (Ecotrin -) 81 mg PO DAILY [facility] Last Admin: 09/27/18 09:04 Dose: 81 mg Atorvastatin Calcium (Lipitor -) 10 mg PO HS [facility] Last Admin: 09/26/18 22:54 Dose: Not Given Calcitriol (Rocaltrol -) 0.25 mcg PO DAILY [facility] Last Admin: 09/27/18 09:06 Dose: 0.25 mcg Calcium Acetate (Phoslo -) 667 mg PO TIDCM [facility] Last Admin: 09/27/18 09:03 Dose: 667 mg Cholestyramine Resin (Questran Light Packet -) 4 gm PO QID [facility] Last Admin: 09/27/18 09:05 Dose: 4 gm Ferrous Sulfate (Feosol -) 325 mg PO BID [facility] Last Admin: 09/27/18 09:04 Dose: 325 mg Glipizide (Glucotrol -) 5 mg PO DAILY@0700 [facility] Last Admin: 09/27/18 07:13 Dose: Not Given Glipizide (Glucotrol Xl -) 2.5 mg PO HS [facility] Last Admin: 09/26/18 22:54 Dose: Not Given Heparin Sodium (Porcine) (Heparin -) 5,000 unit SQ BID [facility] Last Admin: 09/27/18 09:04 Dose: 5,000 unit Heparin Sodium (Porcine) (Heparin -) 500 unit IVPUSH ONCE ONE Stop: 09/28/18 08:01 Heparin Sodium (Porcine) (Heparin -) 300 unit IVPUSH Q1H [facility] Stop: 09/28/18 11:01 Sodium Chloride (Normal Saline -) 250 mls @ 3,000 mls/hr IV PRN PRN PRN Reason: Hypotension during Dialysis Stop: 09/28/18 11:19 Isosorbide Mononitrate (Imdur -) 30 mg PO DAILY [facility] Last Admin: 09/27/18 09:05 Dose: 30 mg Labetalol HCl 200 mg/ (Labetalol HCl 100 mg) 300 mg PO TID [facility] Last Admin: 09/27/18 07:13 Dose: Not Given Loperamide HCl (Imodium -) 2 mg PO Q6H PRN PRN Reason: DIARRHEA Losartan Potassium (Cozaar -) 100 mg PO DAILY [facility] Last Admin: 09/27/18 09:04 Dose: 100 mg Miscellaneous (Lidoderm Patch Removal) 1 each MC DAILY@2200 [facility] Last Admin: 09/26/18 22:54 Dose: Not Given Morphine Sulfate (Morphine Sulfate) 1 mg IVPB Q6H PRN PRN Reason: PAIN LEVEL 7 - 10 Nifedipine (Procardia Xl -) 90 mg PO DAILY [facility] Last Admin: 09/27/18 09:05 Dose: 90 mg Nystatin (Mycostatin Ointment -) 1 applic TP BID [facility] Last Admin: 09/27/18 09:05 Dose: Not Given Ondansetron HCl (Zofran Odt -) 8 mg SL Q8H PRN PRN Reason: NAUSEA 83 year old woman with hx of ESRD on Hd (twice weekly), DM, Hypertension, hyperlipidemia who presented s/p fall with complaints of weak legs. #ESRD on HD #LE weakness with lumbar radiculopathy and nerve root impingement #Hypertension #Metabolic acidosis No emergent indication for SAMPLE EXAMINER today, will plan for dialysis tomorrow Renal diet Dose all meds for intermittent HD (twice weekly) Physical therapy pain control PMNR/Neurology consult pending continue Losartan, Labetalol, Nifedpine ER goal BP < 140/90 expect serum bicarb to improve s/p dialysis Thank you Quentin Goyal DO
[2018-09-27] MEDS ORDERED: MORPHINE SULFATE 2 MG/ML VIAL ONE (17:53)
[2018-09-27] MEDS: ACETAMINOPHEN 325 MG TABLET (FP) PO PRN (18:03)
--- NOTE | 2018-09-27 19:16 | CONS ---
DATE OF ADMISSION: DATE OF DICTATION: 09/27/2018 REFERRING PHYSICIAN: Angela Barahona MD PHYSICAL MEDICINE REHABILITATION CONSULTATION HISTORY OF PRESENT ILLNESS: The patient is an 83-year-old woman with a past medical history of end-stage renal disease on hemodialysis, [id number] diabetes and chronic diarrhea who was admitted after she fell at home. Recently, the patient has evidently been falling frequently and states that her lower extremities give out on her. She has hit her back as well as her head. On admission, she underwent a CT of the head which was negative for any acute intracranial pathology. She also underwent a CT of the lumbar spine which showed marked degenerative narrowing at the L4-5 intervertebral disk space with central disk bulge, likely impinging the right L5 nerve root. There was also a disk bulge at L5-S1. The patient notes that the pain radiates all the way down her right lower extremity into the calf at times. Her admitting CBC showed a WBC of 7.5, hemoglobin 11.3, platelet count 274. Her BUN was elevated at 87, creatinine was 8.3, albumin was low at 3.2. CO2 was low at 18. She had a normal sodium of 140. Potassium was borderline at 5.1. The patient states that at baseline, she has some loss of balance, numbness and tingling in both lower extremities and again, she has a chronic bowel problem which is long standing since 2016. The patient reports no dizziness or lightheadedness, no nausea or vomiting, no difficulty swallowing or chewing. PAST MEDICAL AND SURGICAL HISTORY: As above, as well as hypertension. Again, she is diabetic. She has end-stage renal disease on hemodialysis and has chronic diarrhea. She has had femoral bypass surgery due to peripheral arterial disease as well as coronary artery disease as listed. She also has hypercholesterolemia. SOCIAL HISTORY: The patient smokes tobacco. She lives alone in an apartment with an elevator. She does have a walker but states that her falls have occurred when she is not using the walker. CURRENT FUNCTION: She has been at bed rest since she was taken to the emergency room and is waiting for admission. REVIEW OF SYSTEMS: No dizziness, blurry vision, double vision, no headache, no lightheadedness, no nausea or vomiting, no difficulty swallowing or chewing, no dyspnea on exertion, no cough or abdominal discomfort. Again, she has chronic diarrhea. No bladder changes. Again, she has pain in the right side of her back and buttock, down the right lower extremity at times, numbness and tingling in the lower extremities distally. No numbness or tingling in the upper extremities. No other joint arthralgias. No skin breakdown or rash. No fever or chills. No significant weight change. PHYSICAL EXAMINATION: GENERAL: The patient is a thin elderly woman who is awake, alert, seen while lying on a stretcher. She is in no acute distress. HEENT: Normocephalic, atraumatic. Her extraocular muscles appear intact. NECK: Supple. EXTREMITIES: No pitting edema or calf tenderness. SKIN: No rash or breakdown. No discoloration in her back. NEUROMUSCULAR: She is awake, alert, oriented x3. Cranial nerves 2 through 12 appear grossly intact. Good strength and range throughout her upper extremities. In the lower extremities, she has proximal weakness in the hip adductors and hip flexors, 3+/5, knee extensors 4+/5. Good dorsiflexion, plantar flexion and knee flexion strength. Diminished sensation below the knees to pinprick and absent reflexes in the lower extremities. Normal sensation in the proximal thighs to pinprick as well as throughout the upper extremities. OVERALL IMPRESSION: 1. Deficits in mobility in the elderly, multifactorial. 2. Status post multiple falls. 3. Weakness of the proximal lower extremities. 4. 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 5. Deconditioning of the lower extremities. 6. Cannot rule out diabetic amyotrophy. However, this condition is usually much more painful. 7. Probable right L5 or S1 radiculopathy with underlying degenerative changes as noted on CT scan. 8. Chronic diarrhea. 9. Diabetes. 10. End-stage renal disease on hemodialysis. 11. Peripheral arterial disease status post femoral bypass surgery. PLANS/SUGGESTIONS: 1. Physical therapy, to include strengthening of the proximal lower extremities, bed mobility, transfers, gait training, balance training and reconditioning. 2. Out of bed to chair. 3. Agree with subcutaneous heparin for deep vein thrombosis prophylaxis. 4. Follow up chemistries per Nephrology. 5. Skin precaution. 6. Case management. Would highly suggest short-term rehab in a nursing home facility that provides hemodialysis, possibly [facility]. 7. Agree with dietary consultation. 8. We will follow the patient. Thank you for this referral. GIOVANY ULLOA M.D. MURTAZA/[id number]
[2018-09-27] MEDS ORDERED: ONDANSETRON *ODT* 4 MG TABLET ONE (20:16)
[2018-09-27] MEDS: ONDANSETRON *ODT* 4 MG TABLET SL PRN (20:18)
[2018-09-27] MEDS ORDERED: LIDOCAINE 5% TOPICAL PATCH ONE (22:10)
[2018-09-27] MEDS ORDERED: AMITRIPTYLINE HCL 25 MG TABLET (FP) ONE (22:10)
[2018-09-27] MEDS ORDERED: ATORVASTATIN CA 10 MG TABLET (FP) ONE (22:10)
[2018-09-27] MEDS ORDERED: FERROUS SO4 325 MG TABLET (FP) ONE (22:10)
[2018-09-27] MEDS ORDERED: HEPARIN NA (PORCINE) 5,000 UNITS/ML 1ML VIAL ONE (22:11)
[2018-09-27] MEDS: LIDOCAINE PATCH REMOVAL MC SCH (23:00)
[2018-09-27] MEDS: glipiZIDE-XL 2.5 MG TAB.ER.24 PO SCH (23:00)
[2018-09-27] MEDS: AMITRIPTYLINE HCL 25 MG TABLET (FP) PO SCH (23:00)
[2018-09-28] MEDS: NYSTATIN 100000 UNIT/GM TOPICAL OINTMENT 15 GM TUBE TP SCH ×3 (02:21→22:56)
[2018-09-28] MEDS: CHOLESTYRAMINE/ASPARTAME 4 GM PACKET PO SCH ×5 (02:22→23:08)
[2018-09-28] MEDS ORDERED: LABETALOL HCL 100 MG TABLET (FP) ONE ×2 (06:04→22:19)
[2018-09-28] MEDS ORDERED: glipiZIDE 5 MG TABLET (FP) ONE (06:05)
[2018-09-28] MEDS: glipiZIDE 5 MG TABLET (FP) PO SCH (06:09)
[2018-09-28] MEDS: LABETALOL HCL 200 MG, LABETALOL HCL 100 MG PO SCH ×4 (06:09→23:06)
--- NOTE | 2018-09-28 06:51 | PN ---
Progress Note, Physician Chief Complaint: in bed NAD no new c/o generally weak no pain currently d/w renal: for dialysis today if pt agrees will need placement - Current Medication List Current Medications: Active Medications Acetaminophen (Tylenol -) 650 mg PO Q6H PRN PRN Reason: PAIN Last Admin: 09/27/18 18:03 Dose: 650 mg Alprazolam (Xanax -) 0.25 mg PO BID PRN PRN Reason: ANXIETY Amitriptyline HCl (Elavil -) 50 mg PO [facility] Last Admin: 09/27/18 23:00 Dose: 50 mg Aspirin (Ecotrin -) 81 mg PO DAILY [facility] Last Admin: 09/27/18 09:04 Dose: 81 mg Atorvastatin Calcium (Lipitor -) 10 mg PO [facility] Last Admin: 09/27/18 00:00 Dose: 10 mg Calcitriol (Rocaltrol -) 0.25 mcg PO DAILY [facility] Last Admin: 09/27/18 09:06 Dose: 0.25 mcg Calcium Acetate (Phoslo -) 667 mg PO TIDCM [facility] Last Admin: 09/27/18 17:38 Dose: 667 mg Cholestyramine Resin (Questran Light Packet -) 4 gm PO QID [facility] Last Admin: 09/28/18 02:22 Dose: Not Given Ferrous Sulfate (Feosol -) 325 mg PO BID [facility] Last Admin: 09/27/18 23:19 Dose: 325 mg Glipizide (Glucotrol -) 5 mg PO DAILY@0700 [facility] Last Admin: 09/28/18 06:09 Dose: 5 mg Glipizide (Glucotrol Xl -) 2.5 mg PO [facility] Last Admin: 09/27/18 23:00 Dose: 2.5 mg Heparin Sodium (Porcine) (Heparin -) 5,000 unit SQ BID [facility] Last Admin: 09/27/18 23:00 Dose: 5,000 unit Heparin Sodium (Porcine) (Heparin -) 500 unit IVPUSH ONCE ONE Stop: 09/28/18 08:01 Heparin Sodium (Porcine) (Heparin -) 300 unit IVPUSH Q1H [facility] Stop: 09/28/18 11:01 Sodium Chloride (Normal Saline -) 250 mls @ 3,000 mls/hr IV PRN PRN PRN Reason: Hypotension during Dialysis Stop: 09/28/18 11:19 Isosorbide Mononitrate (Imdur -) 30 mg PO DAILY [facility] Last Admin: 09/27/18 09:05 Dose: 30 mg Labetalol HCl 200 mg/ (Labetalol HCl 100 mg) 300 mg PO TID [facility] Last Admin: 09/28/18 06:09 Dose: 300 mg Loperamide HCl (Imodium -) 2 mg PO Q6H PRN PRN Reason: DIARRHEA Losartan Potassium (Cozaar -) 100 mg PO DAILY [facility] Last Admin: 09/27/18 09:04 Dose: 100 mg Miscellaneous (Lidoderm Patch Removal) 1 each MC DAILY@2200 [facility] Last Admin: 09/27/18 23:00 Dose: 1 each Morphine Sulfate (Morphine Sulfate) 1 mg IVPB Q6H PRN PRN Reason: PAIN LEVEL 7 - 10 Nifedipine (Procardia Xl -) 90 mg PO DAILY [facility] Last Admin: 09/27/18 09:05 Dose: 90 mg Nystatin (Mycostatin Ointment -) 1 applic TP BID [facility] Last Admin: 09/28/18 02:21 Dose: Not Given Ondansetron HCl (Zofran Odt -) 8 mg SL Q8H PRN PRN Reason: NAUSEA Last Admin: 09/27/18 20:18 Dose: 8 mg - Objective Vital Signs: Vital Signs Temperature 98.4 F 09/27/18 20:14 Pulse Rate 68 09/28/18 05:56 Respiratory Rate 18 09/28/18 05:56 Blood Pressure 139/50 L 09/28/18 05:56 O2 Sat by Pulse Oximetry (%) 98 09/28/18 05:56 Constitutional: Yes: No Distress, Calm Eyes: Yes: Conjunctiva Clear HENT: Yes: Atraumatic Neck: Yes: Supple Cardiovascular: Yes: Regular Rate and Rhythm Respiratory: Yes: CTA Bilaterally Gastrointestinal: Yes: Soft. No: Tenderness Genitourinary: No: Hematuria Musculoskeletal: No: Joint Stiffness, Joint Swelling Extremities: No: Cold, Cool, Cyanosis Edema: No Integumentary: No: Rash, Venous Stasis Changes Neurological: Yes: WNL, Alert ...Motor Strength: WNL Psychiatric: Yes: WNL, Alert. No: Agitated Labs: CBC, BMP 09/26/18 13:05 09/26/18 13:05 - ....Imaging Other: Report Reviewed Assessment/Plan Patient is an 83-year-old female with PA MH of hypertension, end-stage renal disease on hemodialysis, NIDDM, chronic diarrhea, frequent falls, non compliant with dialysis, status post fall sec to lower extremities weakness. Possible nerve compression on spine CT neurology, PT and rehab eval pain meds prn dialysis per renal DVT pfx falls PFX will need SNF / NH placement d/w pt and staff
--- NOTE | 2018-09-28 09:36 | CONSULT ---
Consult - text type - Consultation Consultation Note: Neurology Chief Complaint: s/p fall back pain History of Present Illness: 83-year-old female with PA MH of hypertension, end-stage renal disease on hemodialysis, NIDDM, chronic diarrhea, frequent falls, who presented to the ER from home status post fall sec to lower extremities weakness. Patient stated she was walking and her legs felt weak so she fell down. Patient also stated that she hit her head. Denied losing consciousness. She statedd that her back pain is along her right side and running down the leg. Denies fevers, chills, shortness of breath, headache, dizziness, nausea, vomiting, diarrhea, frequency , urgency and hematuria. Pt was recently DCd home from SNF/NH; missed dialysis for 1 week said she could not arrange transportation b/o financial reasons. Does report back discomfort but comfortable appearing. CT head completed and without acute changes. CT L spine with L4/L5 disc bulge/protrusion with impingement of R L5 root, also with L5/S1 minimal bulge impingement of L5 root. - Past Medical History Cardiovascular: Yes: HTN, Hyperlipdemia, Murmur, Other (PAD) Pulmonary: Yes: Asthma, COPD Hepatobiliary: Yes: Cholelithiasis, Choledocholithiasis Renal/: Yes: Renal Inusuff Heme/Onc: Yes: Anemia Infectious Disease: Yes: Other (history of osteomyelitis in the past) Endocrine: Yes: Diabetes Mellitus - Past Surgical History Past Surgical History: Yes: Amputation (1-st R toe amputation), Bypass (Right fem pop bypass) - Smoking History Smoking history: Current every day smoker Have you smoked in the past 12 months: Yes Aproximately how many cigarettes per day: 3 If you are a former smoker, when did you quit?: 08/10/2012 - Alcohol/Substance Use Hx Alcohol Use: No History of Substance Use: reports: None - Social History Usual Living Arrangement: Yes: Alone ADL: Independent 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, 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, 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 Travel: No Home Medications - Allergies Allergies/Adverse Reactions: Allergies Allergy/AdvReac Type Severity Reaction Status Date / Time iodine Allergy Rash Verified 09/25/18 16:17 penicillin V Allergy Verified 09/25/18 16:17 shellfish derived Allergy Rash Verified 09/25/18 16:17 vancomycin Allergy Verified 09/25/18 16:17 azithromycin AdvReac Verified 09/25/18 16:17 - Home Medications Home Medications: Ambulatory Orders Aspirin Coated [Ecotrin -] 81 mg PO DAILY tablet.ec 09/15/16 Glipizide 5 mg PO DAILY 06/26/17 Calcitriol [Calcitriol -] 0.25 mcg PO DAILY capsule 12/29/17 Ferrous Sulfate [Feosol] 325 mg PO BID ud 12/29/17 Alprazolam [Xanax] 0.25 mg PO BID 05/05/18 Amitriptyline HCl [Elavil -] 50 mg PO HS 05/05/18 Atorvastatin Ca [Lipitor] 10 mg PO HS 05/05/18 Isosorbide Mononitrate [Imdur -] 30 mg PO DAILY 05/05/18 Acetaminophen [Tylenol .Regular Strength -] 650 mg PO Q6H PRN tablet 06/05/18 Glipizide [Glipizide ER] 2.5 mg PO HS 07/14/18 Calcium Acetate [Phoslo -] 667 mg PO TIDCM capsule 09/04/18 Cholestyramine/Aspartame [Questran Light Packet -] 4 gm PO QID packet 09/04/18 Labetalol HCl [Normodyne -] 300 mg PO TID tablet 09/04/18 Loperamide HCl [Imodium -] 2 mg PO Q6H PRN capsule 09/04/18 Losartan Potassium [Cozaar -] 100 mg PO DAILY tablet 09/04/18 Nifedipine ER [Procardia XL -] 90 mg PO DAILY tab.er.24 09/04/18 Nystatin Ointment [Mycostatin Ointment -] 1 applic TP BID applic 09/04/18 Cephalexin Monohydrate [Keflex -] 500 mg PO BID #10 capsule 09/15/18 Ondansetron [Zofran *Odt*] 8 mg SL TID PRN 09/15/18 Family Disease History - Family Disease History Family Disease History: CA: Father (lung ca), Mother (, lung ca), Sister (lung ca) Review of Systems - Review of Systems Constitutional: denies: Chills, Fever Eyes: denies: Blind Spots, Blurred Vision HENT: denies: Ear Pain, Epistaxis Cardiovascular: denies: Chest Pain, Edema, Shortness of Breath Respiratory: denies: Cough, SOB Gastrointestinal: denies: Abdominal Pain, Diarrhea, Vomiting Genitourinary: denies: Dysuria, Flank Pain Musculoskeletal: reports: Back Pain Integumentary: denies: Bruising, Eczema Neurological: reports: Confusion, Unsteady Gait, Weakness (general). denies: Change in LOC, Change in Speech, Dizziness Hematology/Lymphatic: denies: Easily Bruised, Excessive Bleeding Psychiatric: reports: Anxiety. denies: Suicidal Physical Examination CBCD WBC 7.5 K/mm3 (4.0-10.0) 09/26/18 13:05 RBC 3.55 M/mm3 (3.60-5.2) L 09/26/18 13:05 Hgb 11.3 GM/dL (10.7-15.3) 09/26/18 13:05 Hct 33.4 % (32.4-45.2) 09/26/18 13:05 MCV 94.0 fl (80-96) 09/26/18 13:05 MCHC 33.8 g/dl (32.0-36.0) 09/26/18 13:05 RDW 14.8 % (11.6-15.6) 09/26/18 13:05 Plt Count 274 K/MM3 (134-434) 09/26/18 13:05 MPV 8.2 fl (7.5-11.1) 09/26/18 13:05 CMP Sodium 140 mmol/L (136-145) 09/26/18 13:05 Potassium 5.1 mmol/L (3.5-5.1) 09/26/18 13:05 Chloride 111 mmol/L (98-107) H 09/26/18 13:05 Carbon Dioxide 18 mmol/L (21-32) L 09/26/18 13:05 Anion Gap 11 MMOL/L (8-16) 09/26/18 13:05 BUN 87 mg/dL (7-18) H 09/26/18 13:05 Creatinine 8.3 mg/dL (0.55-1.3) H* 09/26/18 13:05 Creat Clearance w eGFR 4.63 (>60) 09/26/18 13:05 Random Glucose 114 mg/dL (74-106) H 09/26/18 13:05 Calcium 8.5 mg/dL (8.5-10.1) 09/26/18 13:05 Total Bilirubin 0.3 mg/dL (0.2-1) 09/26/18 13:05 AST 16 U/L (15-37) 09/26/18 13:05 ALT 25 U/L (13-61) 09/26/18 13:05 Alkaline Phosphatase 84 U/L (45-117) 09/26/18 13:05 Total Protein 6.9 g/dl (6.4-8.2) 09/26/18 13:05 Albumin 3.2 g/dl (3.4-5.0) L 09/26/18 13:05 Constitutional: Yes: Anxious Eyes: Yes: Conjunctiva Clear HENT: Yes: Atraumatic Neck: Yes: Supple Cardiovascular: Yes: Regular Rate and Rhythm Respiratory: Yes: CTA Bilaterally Gastrointestinal: Yes: Soft. No: Tenderness Renal/: No: Hematuria Musculoskeletal: No: Joint Stiffness, Joint Swelling Extremities: No: Cold, Cool, Cyanosis, External Rotation Edema: No Integumentary: No: Rash, Venous Stasis Changes Neurological: Yes: WNL, Alert, Oriented. No: Tremors ...Motor Strength: WNL Psychiatric: Yes: WNL, Alert, Oriented. No: Agitated CBCD WBC 7.5 K/mm3 (4.0-10.0) 09/26/18 13:05 RBC 3.55 M/mm3 (3.60-5.2) L 09/26/18 13:05 Hgb 11.3 GM/dL (10.7-15.3) 09/26/18 13:05 Hct 33.4 % (32.4-45.2) 09/26/18 13:05 MCV 94.0 fl (80-96) 09/26/18 13:05 MCHC 33.8 g/dl (32.0-36.0) 09/26/18 13:05 RDW 14.8 % (11.6-15.6) 09/26/18 13:05 Plt Count 274 K/MM3 (134-434) 09/26/18 13:05 MPV 8.2 fl (7.5-11.1) 09/26/18 13:05 CMP Sodium 140 mmol/L (136-145) 09/26/18 13:05 Potassium 5.1 mmol/L (3.5-5.1) 09/26/18 13:05 Chloride 111 mmol/L (98-107) H 09/26/18 13:05 Carbon Dioxide 18 mmol/L (21-32) L 09/26/18 13:05 Anion Gap 11 MMOL/L (8-16) 09/26/18 13:05 BUN 87 mg/dL (7-18) H 09/26/18 13:05 Creatinine 8.3 mg/dL (0.55-1.3) H* 09/26/18 13:05 Creat Clearance w eGFR 4.63 (>60) 09/26/18 13:05 Random Glucose 114 mg/dL (74-106) H 09/26/18 13:05 Calcium 8.5 mg/dL (8.5-10.1) 09/26/18 13:05 Total Bilirubin 0.3 mg/dL (0.2-1) 09/26/18 13:05 AST 16 U/L (15-37) 09/26/18 13:05 ALT 25 U/L (13-61) 09/26/18 13:05 Alkaline Phosphatase 84 U/L (45-117) 09/26/18 13:05 Total Protein 6.9 g/dl (6.4-8.2) 09/26/18 13:05 Albumin 3.2 g/dl (3.4-5.0) L 09/26/18 13:05 Assessment/Plan 83-year-old female with PA MH of hypertension, end-stage renal disease on hemodialysis, NIDDM, chronic diarrhea, frequent falls, who presented to the ER from home status post fall sec to lower extremities weakness. Patient stated she was walking and her legs felt weak so she fell down. Patient also stated that she hit her head. Denied losing consciousness. She statedd that her back pain is along her right side and running down the leg. Denies fevers, chills, shortness of breath, headache, dizziness, nausea, vomiting, diarrhea, frequency , urgency and hematuria. Pt was recently [place]; missed dialysis for 1 week said she could not arrange transportation b/o financial reasons. Does report back discomfort but comfortable appearing. CT head completed and without acute changes. CT L spine with L4/L5 disc bulge/protrusion with impingement of R L5 root, also with L5/S1 minimal bulge impingement of L5 root. Will add gabapentin 300 bid to regiment for lumbar radiculopathy. Pain mgmt as able. Physicial therapy as tolerated, fall precautions. May require short term rehab.
[2018-09-28] MEDS: ISOSORBIDE MONONITRATE 30 MG TAB.SR.24H (FP) PO SCH (11:00)
[2018-09-28] MEDS: HEPARIN NA (PORCINE) 5,000 UNITS/ML 1ML VIAL SQ SCH ×3 (11:00→23:08)
[2018-09-28] MEDS: FERROUS SO4 325 MG TABLET (FP) PO SCH ×3 (11:00→23:08)
[2018-09-28] MEDS: CALCIUM ACETATE 667 MG CAPSULE (FP) PO SCH ×2 (11:00→22:48)
[2018-09-28] MEDS: NIFEdipine E.R. 90 MG TABLET (FP) PO SCH (11:00)
[2018-09-28] MEDS: GABAPENTIN 300 MG CAPSULE (FP) PO SCH ×3 (11:00→23:08)
[2018-09-28] MEDS: ASPIRIN COATED 81 MG TABLET.EC PO SCH (11:00)
[2018-09-28] MEDS: LOSARTAN POTASSIUM 50 MG TABLET (FP) PO SCH (11:00)
[2018-09-28] MEDS: CALCITRIOL 0.25 MCG CAPSULE (FP) PO SCH (11:00)
[2018-09-28] MEDS ORDERED: GABAPENTIN 100 MG CAPSULE (FP) ONE (11:11)
[2018-09-28 12:28] LABS: HEMATOCRIT 31.6 % (32.4-45.2); HEMOGLOBIN 10.6 GM/dL (10.7-15.3); MCHC 33.4 g/dl (32.0-36.0); MEAN CELL VOLUME 92.6 fl (80-96); MEAN PLT VOLUME 8.5 fl (7.5-11.1); PLATELET COUNT 279 K/MM3 (134-434); RBC 3.41 M/mm3 (3.60-5.2); WHITE BLOOD COUNT 5.7 K/mm3 (4.0-10.0)
[2018-09-28] MEDS: HEPARIN NA (PORCINE) 5,000 UNITS/ML 1ML VIAL IVPUSH SCH ×2 (12:30→22:49)
[2018-09-28] MEDS ORDERED: SODIUM CHLORIDE 250 ML IV PRN (12:33)
[2018-09-28] MEDS ORDERED: HEPARIN NA (PORCINE) 5,000 UNITS/ML 1ML VIAL IVPUSH ONE (13:00)
[2018-09-28 13:03] LABS: ANION GAP 10 MMOL/L (8-16); BLOOD UREA NITROGEN 86 mg/dL (7-18); CALCIUM 8.9 mg/dL (8.5-10.1); CHLORIDE 111 mmol/L (98-107); CO2 17 mmol/L (21-32); PHOSPHOROUS 5.5 mg/dL (2.5-4.9); POTASSIUM 4.6 mmol/L (3.5-5.1); SODIUM 138 mmol/L (136-145)
[2018-09-28 13:32] LABS: GLUCOSE,RANDOM 46 mg/dL (74-106)
--- NOTE | 2018-09-28 15:32 | PN ---
Progress Note (short form) - Note Progress Note: Renal follow up for ESRD on HD Pt seen and examined during dialysis BP stable catheter with good flow complains of Nausea no sob, cp, abd pain Vital Signs Temperature 98.2 F 09/28/18 10:23 Pulse Rate 71 09/28/18 13:30 Respiratory Rate 18 09/28/18 13:30 Blood Pressure 137/67 09/28/18 13:30 O2 Sat by Pulse Oximetry (%) 98 09/28/18 10:23 Intake & Output 09/25/18 09/26/18 09/27/18 09/28/18 23:59 23:59 23:59 23:59 Intake Total 480 Balance 480 Weight 47.627 kg NAD RRR CTA soft NT/ND no LE edema, clubbing or cyanosis No N/V/D CBC, BMP 09/28/18 12:00 09/28/18 12:00 Current Medications Acetaminophen (Tylenol -) 650 mg PO Q6H PRN PRN Reason: PAIN Last Admin: 09/27/18 18:03 Dose: 650 mg Alprazolam (Xanax -) 0.25 mg PO BID PRN PRN Reason: ANXIETY Amitriptyline HCl (Elavil -) 50 mg PO HS [facility] Last Admin: 09/27/18 23:00 Dose: 50 mg Aspirin (Ecotrin -) 81 mg PO DAILY [facility] Last Admin: 09/28/18 11:00 Dose: 81 mg Atorvastatin Calcium (Lipitor -) 10 mg PO HS [facility] Last Admin: 09/27/18 00:00 Dose: 10 mg Calcitriol (Rocaltrol -) 0.25 mcg PO DAILY [facility] Last Admin: 09/28/18 11:00 Dose: 0.25 mcg Calcium Acetate (Phoslo -) 667 mg PO TIDCM [facility] Last Admin: 09/28/18 11:00 Dose: 667 mg Cholestyramine Resin (Questran Light Packet -) 4 gm PO QID [facility] Last Admin: 09/28/18 11:00 Dose: 4 gm Ferrous Sulfate (Feosol -) 325 mg PO BID [facility] Last Admin: 09/28/18 11:00 Dose: 325 mg Gabapentin (Neurontin -) 300 mg PO BID [facility] Last Admin: 09/28/18 11:00 Dose: 300 mg Glipizide (Glucotrol -) 5 mg PO DAILY@0700 [facility] Last Admin: 09/28/18 06:09 Dose: 5 mg Glipizide (Glucotrol Xl -) 2.5 mg PO HS [facility] Last Admin: 09/27/18 23:00 Dose: 2.5 mg Heparin Sodium (Porcine) (Heparin -) 5,000 unit SQ BID [facility] Last Admin: 09/28/18 11:00 Dose: 5,000 unit Sodium Chloride (Normal Saline -) 250 mls @ 3,000 mls/hr IV PRN PRN PRN Reason: Hypotension during Dialysis Stop: 09/29/18 12:33 Isosorbide Mononitrate (Imdur -) 30 mg PO DAILY [facility] Last Admin: 09/28/18 11:00 Dose: 30 mg Labetalol HCl 200 mg/ (Labetalol HCl 100 mg) 300 mg PO TID [facility] Last Admin: 09/28/18 12:00 Dose: 300 mg Loperamide HCl (Imodium -) 2 mg PO Q6H PRN PRN Reason: DIARRHEA Losartan Potassium (Cozaar -) 100 mg PO DAILY [facility] Last Admin: 09/28/18 11:00 Dose: 100 mg Miscellaneous (Lidoderm Patch Removal) 1 each MC DAILY@2200 [facility] Last Admin: 09/27/18 23:00 Dose: 1 each Morphine Sulfate (Morphine Sulfate) 1 mg IVPB Q6H PRN PRN Reason: PAIN LEVEL 7 - 10 Nifedipine (Procardia Xl -) 90 mg PO DAILY [facility] Last Admin: 09/28/18 11:00 Dose: 90 mg Nystatin (Mycostatin Ointment -) 1 applic TP BID [facility] Last Admin: 09/28/18 11:23 Dose: Not Given Ondansetron HCl (Zofran Odt -) 8 mg SL Q8H PRN PRN Reason: NAUSEA Last Admin: 09/27/18 20:18 Dose: 8 mg 83 year old woman with hx of ESRD on Hd (twice weekly), DM, Hypertension, hyperlipidemia who presented s/p fall with complaints of weak legs. #ESRD on HD #LE weakness with lumbar radiculopathy and nerve root impingement #Hypertension #Metabolic acidosis Tolerating dialysis well continue zofran for nausea etiology of nausea unclear, may be from uremia as pt had missed her last treatment on Monday pt evaluation Neurology follow up Thank you Quentin Goyal DO
[2018-09-28] MEDS ORDERED: LABETALOL HCL 200 MG TABLET (FP) ONE (22:19)
[2018-09-28] MEDS ORDERED: PT OWN MED DRAWER 7, Y5N ONE (22:20)
[2018-09-28] MEDS: ALBUMIN HUMAN 25% 12.5 GM/50 ML VIAL IVPB SCH (22:48)
[2018-09-28] MEDS: LIDOCAINE PATCH REMOVAL MC SCH (22:51)
[2018-09-28] MEDS: ALPRAZolam 0.25 MG TABLET PO PRN (22:51)
[2018-09-28] MEDS: ATORVASTATIN CA 10 MG TABLET (FP) PO SCH ×2 (22:51→23:08)
[2018-09-28] MEDS: AMITRIPTYLINE HCL 25 MG TABLET (FP) PO SCH (22:52)
[2018-09-28] MEDS: glipiZIDE-XL 2.5 MG TAB.ER.24 PO SCH (22:56)
[2018-09-29] MEDS: LABETALOL HCL 200 MG, LABETALOL HCL 100 MG PO SCH ×3 (06:01→22:43)
[2018-09-29] MEDS: glipiZIDE 5 MG TABLET (FP) PO SCH (06:01)
[2018-09-29] MEDS ORDERED: PT OWN MED DRAWER 7, Y5N ONE ×4 (09:02→22:24)
[2018-09-29] MEDS: ONDANSETRON *ODT* 4 MG TABLET SL PRN (09:04)
--- NOTE | 2018-09-29 09:05 | PN ---
Progress Note, Physician Chief Complaint: had an episode of anxoety and confusion eraly today when she did not know where she is and she refused to take her meds but by the time I saw her and dr Goyal saw her she felt better and she said she will take her meds; will check UA UCx r /o UTI tolerated HD well yesterday said she had diarrhea and abdominal pain but her belly is benign and no diarrhea at present - Current Medication List Current Medications: Active Medications Acetaminophen (Tylenol -) 650 mg PO Q6H PRN PRN Reason: PAIN Last Admin: 09/27/18 18:03 Dose: 650 mg Alprazolam (Xanax -) 0.25 mg PO BID PRN PRN Reason: ANXIETY Amitriptyline HCl (Elavil -) 50 mg PO [facility] Last Admin: 09/28/18 22:52 Dose: Not Given Aspirin (Ecotrin -) 81 mg PO DAILY [facility] Last Admin: 09/28/18 11:00 Dose: 81 mg Atorvastatin Calcium (Lipitor -) 10 mg PO [facility] Last Admin: 09/28/18 23:08 Dose: Not Given Calcitriol (Rocaltrol -) 0.25 mcg PO DAILY [facility] Last Admin: 09/28/18 11:00 Dose: 0.25 mcg Calcium Acetate (Phoslo -) 667 mg PO TIDCM [facility] Last Admin: 09/28/18 22:48 Dose: Not Given Cholestyramine Resin (Questran Light Packet -) 4 gm PO QID [facility] Last Admin: 09/28/18 23:08 Dose: Not Given Ferrous Sulfate (Feosol -) 325 mg PO BID [facility] Last Admin: 09/28/18 23:08 Dose: Not Given Gabapentin (Neurontin -) 300 mg PO BID [facility] Last Admin: 09/28/18 23:08 Dose: Not Given Glipizide (Glucotrol -) 5 mg PO DAILY@0700 [facility] Last Admin: 09/29/18 06:01 Dose: Not Given Glipizide (Glucotrol Xl -) 2.5 mg PO [facility] Last Admin: 09/28/18 22:56 Dose: Not Given Heparin Sodium (Porcine) (Heparin -) 5,000 unit SQ BID [facility] Last Admin: 09/28/18 23:08 Dose: Not Given Sodium Chloride (Normal Saline -) 250 mls @ 3,000 mls/hr IV PRN PRN PRN Reason: Hypotension during Dialysis Stop: 09/29/18 12:33 Isosorbide Mononitrate (Imdur -) 30 mg PO DAILY [facility] Last Admin: 09/28/18 11:00 Dose: 30 mg Labetalol HCl 200 mg/ (Labetalol HCl 100 mg) 300 mg PO TID [facility] Last Admin: 09/29/18 06:01 Dose: Not Given Loperamide HCl (Imodium -) 2 mg PO Q6H PRN PRN Reason: DIARRHEA Losartan Potassium (Cozaar -) 100 mg PO DAILY [facility] Last Admin: 09/28/18 11:00 Dose: 100 mg Miscellaneous (Lidoderm Patch Removal) 1 each MC DAILY@2200 [facility] Last Admin: 09/28/18 22:51 Dose: 1 each Nifedipine (Procardia Xl -) 90 mg PO DAILY [facility] Last Admin: 09/28/18 11:00 Dose: 90 mg Nystatin (Mycostatin Ointment -) 1 applic TP BID [facility] Last Admin: 09/28/18 22:56 Dose: Not Given Ondansetron HCl (Zofran Odt -) 8 mg SL Q8H PRN PRN Reason: NAUSEA Last Admin: 09/27/18 20:18 Dose: 8 mg - Objective Vital Signs: Vital Signs Temperature 98.9 F 09/29/18 05:00 Pulse Rate 80 09/29/18 05:00 Respiratory Rate 22 H 09/28/18 23:48 Blood Pressure 133/61 09/29/18 05:00 O2 Sat by Pulse Oximetry (%) 94 L 09/28/18 21:00 Constitutional: Yes: No Distress, Calm Eyes: Yes: Conjunctiva Clear HENT: Yes: Atraumatic Neck: Yes: Supple Cardiovascular: Yes: Regular Rate and Rhythm Respiratory: Yes: CTA Bilaterally Gastrointestinal: Yes: Soft. No: Tenderness Genitourinary: No: CVA Tenderness - Left, CVA Tenderness - Right Musculoskeletal: No: Joint Stiffness, Joint Swelling Extremities: No: Cold, Cool, Cyanosis Edema: No Integumentary: No: Rash, Venous Stasis Changes Neurological: Yes: WNL, Alert ...Motor Strength: WNL Psychiatric: Yes: WNL, Alert. No: Agitated, Suicidal Ideation Labs: CBC, BMP 09/28/18 12:00 09/28/18 12:00 - ....Imaging Other: Report Reviewed Assessment/Plan Patient is an 83-year-old female with PA MH of hypertension, end-stage renal disease on hemodialysis, NIDDM, chronic diarrhea, frequent falls, non compliant with dialysis, status post fall sec to lower extremities weakness. Nerve compression on spine CT neurology, PT and rehab eval pain meds prn dialysis per renal DVT pfx falls PFX check UA Ucx r/o UTI po questran for diarrhea - can see GI outpt will need SNF / NH placement d/w pt and staff
--- NOTE | 2018-09-29 10:41 | PN ---
Progress Note (short form) - Note Progress Note: Renal follow up for ESRD on HD Pt seen and examined at the bedside no acute complaints no sob, cp, abd pain s/p dialysis yesterday but pt claims she does not remember getting treatment continue to have some nausea today Vital Signs Temperature 98.9 F 09/29/18 05:00 Pulse Rate 80 09/29/18 05:00 Respiratory Rate 22 H 09/28/18 23:48 Blood Pressure 133/61 09/29/18 05:00 O2 Sat by Pulse Oximetry (%) 94 L 09/28/18 21:00 Intake & Output 09/26/18 09/27/18 09/28/18 09/29/18 23:59 23:59 23:59 23:59 Intake Total 480 0 Balance 480 0 Weight 47.627 kg 47.627 kg NAD RRR CTA soft NT/ND no LE edema, clubbing or cyanosis No N/V/D CBC, BMP 09/28/18 12:00 09/28/18 12:00 Current Medications Acetaminophen (Tylenol -) 650 mg PO Q6H PRN PRN Reason: PAIN Last Admin: 09/27/18 18:03 Dose: 650 mg Alprazolam (Xanax -) 0.25 mg PO BID PRN PRN Reason: ANXIETY Amitriptyline HCl (Elavil -) 50 mg PO HS [facility] Last Admin: 09/28/18 22:52 Dose: Not Given Aspirin (Ecotrin -) 81 mg PO DAILY [facility] Last Admin: 09/28/18 11:00 Dose: 81 mg Atorvastatin Calcium (Lipitor -) 10 mg PO HS [facility] Last Admin: 09/28/18 23:08 Dose: Not Given Calcitriol (Rocaltrol -) 0.25 mcg PO DAILY [facility] Last Admin: 09/28/18 11:00 Dose: 0.25 mcg Calcium Acetate (Phoslo -) 667 mg PO TIDCM [facility] Last Admin: 09/28/18 22:48 Dose: Not Given Cholestyramine Resin (Questran Light Packet -) 4 gm PO QID [facility] Last Admin: 09/28/18 23:08 Dose: Not Given Ferrous Sulfate (Feosol -) 325 mg PO BID [facility] Last Admin: 09/28/18 23:08 Dose: Not Given Gabapentin (Neurontin -) 300 mg PO BID [facility] Last Admin: 09/28/18 23:08 Dose: Not Given Glipizide (Glucotrol -) 5 mg PO DAILY@0700 [facility] Last Admin: 09/29/18 06:01 Dose: Not Given Glipizide (Glucotrol Xl -) 2.5 mg PO HS [facility] Last Admin: 09/28/18 22:56 Dose: Not Given Heparin Sodium (Porcine) (Heparin -) 5,000 unit SQ BID [facility] Last Admin: 09/28/18 23:08 Dose: Not Given Sodium Chloride (Normal Saline -) 250 mls @ 3,000 mls/hr IV PRN PRN PRN Reason: Hypotension during Dialysis Stop: 09/29/18 12:33 Isosorbide Mononitrate (Imdur -) 30 mg PO DAILY [facility] Last Admin: 09/28/18 11:00 Dose: 30 mg Labetalol HCl 200 mg/ (Labetalol HCl 100 mg) 300 mg PO TID [facility] Last Admin: 09/29/18 06:01 Dose: Not Given Loperamide HCl (Imodium -) 2 mg PO Q6H PRN PRN Reason: DIARRHEA Losartan Potassium (Cozaar -) 100 mg PO DAILY [facility] Last Admin: 09/28/18 11:00 Dose: 100 mg Miscellaneous (Lidoderm Patch Removal) 1 each MC DAILY@2200 [facility] Last Admin: 09/28/18 22:51 Dose: 1 each Nifedipine (Procardia Xl -) 90 mg PO DAILY [facility] Last Admin: 09/28/18 11:00 Dose: 90 mg Nystatin (Mycostatin Ointment -) 1 applic TP BID [facility] Last Admin: 09/28/18 22:56 Dose: Not Given Ondansetron HCl (Zofran Odt -) 8 mg SL Q8H PRN PRN Reason: NAUSEA Last Admin: 09/29/18 09:04 Dose: 8 mg 83 year old woman with hx of ESRD on Hd (twice weekly), DM, Hypertension, hyperlipidemia who presented s/p fall with complaints of weak legs. #ESRD on HD #LE weakness with lumbar radiculopathy and nerve root impingement #Hypertension #Metabolic acidosis s/p dialysis yesterday, next treatment planned for Monday Renal diet continue neuro work up continue present antihypertensvies Thank you Quentin Goyal DO
[2018-09-29] MEDS: CALCIUM ACETATE 667 MG CAPSULE (FP) PO SCH ×3 (11:03→17:19)
[2018-09-29] MEDS: ISOSORBIDE MONONITRATE 30 MG TAB.SR.24H (FP) PO SCH (11:03)
[2018-09-29] MEDS: GABAPENTIN 300 MG CAPSULE (FP) PO SCH ×2 (11:03→22:44)
[2018-09-29] MEDS: CALCITRIOL 0.25 MCG CAPSULE (FP) PO SCH (11:03)
[2018-09-29] MEDS: LOSARTAN POTASSIUM 50 MG TABLET (FP) PO SCH (11:03)
[2018-09-29] MEDS: ASPIRIN COATED 81 MG TABLET.EC PO SCH (11:03)
[2018-09-29] MEDS: FERROUS SO4 325 MG TABLET (FP) PO SCH ×2 (11:03→22:43)
[2018-09-29] MEDS: ALPRAZolam 0.25 MG TABLET PO PRN ×2 (11:04→22:44)
[2018-09-29] MEDS: NIFEdipine E.R. 90 MG TABLET (FP) PO SCH (11:04)
[2018-09-29] MEDS: CHOLESTYRAMINE/ASPARTAME 4 GM PACKET PO SCH ×4 (11:10→22:47)
[2018-09-29] MEDS: HEPARIN NA (PORCINE) 5,000 UNITS/ML 1ML VIAL SQ SCH ×2 (11:10→22:44)
[2018-09-29] MEDS: NYSTATIN 100000 UNIT/GM TOPICAL OINTMENT 15 GM TUBE TP SCH ×2 (11:10→22:46)
[2018-09-29] MEDS ORDERED: LABETALOL HCL 100 MG TABLET (FP) ONE ×2 (13:41→22:23)
[2018-09-29] MEDS ORDERED: LABETALOL HCL 200 MG TABLET (FP) ONE ×2 (13:42→22:23)
[2018-09-29] MEDS: ACETAMINOPHEN 325 MG TABLET (FP) PO PRN (13:46)
[2018-09-29] MEDS: ATORVASTATIN CA 10 MG TABLET (FP) PO SCH (22:43)
[2018-09-29] MEDS: LIDOCAINE PATCH REMOVAL MC SCH (22:44)
[2018-09-29] MEDS: AMITRIPTYLINE HCL 25 MG TABLET (FP) PO SCH (22:44)
[2018-09-29] MEDS: glipiZIDE-XL 2.5 MG TAB.ER.24 PO SCH (22:44)
[2018-09-30] MEDS ORDERED: LABETALOL HCL 100 MG TABLET (FP) ONE ×3 (05:53→21:48)
[2018-09-30] MEDS ORDERED: LABETALOL HCL 200 MG TABLET (FP) ONE ×3 (05:54→21:48)
[2018-09-30] MEDS: LABETALOL HCL 200 MG, LABETALOL HCL 100 MG PO SCH ×3 (05:56→21:59)
[2018-09-30] MEDS: glipiZIDE 5 MG TABLET (FP) PO SCH (06:00)
[2018-09-30 08:42] LABS: BASO % 1.1 % (0-2.0); EOS % 8.1 % (0-4.5); HEMATOCRIT 33.8 % (32.4-45.2); HEMOGLOBIN 11.1 GM/dL (10.7-15.3); LYMPH % 25.8 % (8-40); MCH 30.6 pg (25.7-33.7); MEAN CELL VOLUME 92.9 fl (80-96); MEAN PLT VOLUME 8.6 fl (7.5-11.1); MONO % 13.3 % (3.8-10.2); NEUT % 51.7 % (42.8-82.8); PLATELET COUNT 219 K/MM3 (134-434); RBC 3.64 M/mm3 (3.60-5.2); RDW 15.1 % (11.6-15.6); WHITE BLOOD COUNT 4.3 K/mm3 (4.0-10.0)
[2018-09-30 09:19] LABS: ALBUMIN 2.9 g/dl (3.4-5.0); ALK PHOS 77 U/L (45-117); ANION GAP 8 MMOL/L (8-16); BILIRUBIN,TOTAL 0.2 mg/dL (0.2-1); BLOOD UREA NITROGEN 35 mg/dL (7-18); CALCIUM 8.2 mg/dL (8.5-10.1); CHLORIDE 103 mmol/L (98-107); CHOLESTEROL 104 mg/dL (50-200); CO2 28 mmol/L (21-32); CREATININE 5.5 mg/dL (0.55-1.3); GLUCOSE,RANDOM 71 mg/dL (74-106); HDL CHOLESTEROL 66 mg/dL (40-60); POTASSIUM 3.6 mmol/L (3.5-5.1); SGOT/AST 23 U/L (15-37); SGPT/ALT 22 U/L (13-61); SODIUM 139 mmol/L (136-145); TOT PROT 6.2 g/dl (6.4-8.2); TRIGLYCERIDES 138 mg/dL (0-150)
[2018-09-30] MEDS: CALCIUM ACETATE 667 MG CAPSULE (FP) PO SCH ×3 (09:20→17:04)
[2018-09-30] MEDS: LOSARTAN POTASSIUM 50 MG TABLET (FP) PO SCH (09:20)
[2018-09-30] MEDS: HEPARIN NA (PORCINE) 5,000 UNITS/ML 1ML VIAL SQ SCH ×2 (09:20→21:59)
[2018-09-30] MEDS: FERROUS SO4 325 MG TABLET (FP) PO SCH ×2 (09:20→22:00)
[2018-09-30] MEDS: ASPIRIN COATED 81 MG TABLET.EC PO SCH (09:21)
[2018-09-30] MEDS: ISOSORBIDE MONONITRATE 30 MG TAB.SR.24H (FP) PO SCH (09:21)
[2018-09-30] MEDS: GABAPENTIN 300 MG CAPSULE (FP) PO SCH ×2 (09:21→21:59)
[2018-09-30] MEDS: CALCITRIOL 0.25 MCG CAPSULE (FP) PO SCH (09:21)
[2018-09-30] MEDS: ACETAMINOPHEN 325 MG TABLET (FP) PO PRN ×2 (09:22→22:01)
[2018-09-30] MEDS: NIFEdipine E.R. 90 MG TABLET (FP) PO SCH (09:22)
[2018-09-30] MEDS: CHOLESTYRAMINE/ASPARTAME 4 GM PACKET PO SCH ×4 (09:23→21:57)
[2018-09-30] MEDS: NYSTATIN 100000 UNIT/GM TOPICAL OINTMENT 15 GM TUBE TP SCH ×2 (09:23→22:10)
[2018-09-30] MEDS: ALPRAZolam 0.25 MG TABLET PO PRN (09:25)
--- NOTE | 2018-09-30 11:00 | PN ---
Progress Note, Physician Chief Complaint: in bed feels and looks better no c/o wants to go to Rehab will d/w CM in am - Current Medication List Current Medications: Active Medications Acetaminophen (Tylenol -) 650 mg PO Q6H PRN PRN Reason: PAIN Last Admin: 09/30/18 09:22 Dose: 650 mg Alprazolam (Xanax -) 0.25 mg PO BID PRN PRN Reason: ANXIETY Last Admin: 09/30/18 09:25 Dose: 0.25 mg Amitriptyline HCl (Elavil -) 50 mg PO [facility] Last Admin: 09/29/18 22:44 Dose: 50 mg Aspirin (Ecotrin -) 81 mg PO DAILY [facility] Last Admin: 09/30/18 09:21 Dose: 81 mg Atorvastatin Calcium (Lipitor -) 10 mg PO [facility] Last Admin: 09/29/18 22:43 Dose: 10 mg Calcitriol (Rocaltrol -) 0.25 mcg PO DAILY [facility] Last Admin: 09/30/18 09:21 Dose: 0.25 mcg Calcium Acetate (Phoslo -) 667 mg PO TIDCM [facility] Last Admin: 09/30/18 09:20 Dose: 667 mg Cholestyramine Resin (Questran Light Packet -) 4 gm PO QID [facility] Last Admin: 09/30/18 09:23 Dose: 4 gm Ferrous Sulfate (Feosol -) 325 mg PO BID [facility] Last Admin: 09/30/18 09:20 Dose: 325 mg Gabapentin (Neurontin -) 300 mg PO BID [facility] Last Admin: 09/30/18 09:21 Dose: 300 mg Glipizide (Glucotrol -) 5 mg PO DAILY@0700 [facility] Last Admin: 09/30/18 06:00 Dose: Not Given Glipizide (Glucotrol Xl -) 2.5 mg PO [facility] Last Admin: 09/29/18 22:44 Dose: 2.5 mg Heparin Sodium (Porcine) (Heparin -) 5,000 unit SQ BID [facility] Last Admin: 09/30/18 09:20 Dose: 5,000 unit Sodium Chloride (Normal Saline -) 250 mls @ 3,000 mls/hr IV PRN PRN PRN Reason: Hypotension during Dialysis Stop: 09/29/18 12:33 Isosorbide Mononitrate (Imdur -) 30 mg PO DAILY [facility] Last Admin: 09/30/18 09:21 Dose: 30 mg Labetalol HCl 200 mg/ (Labetalol HCl 100 mg) 300 mg PO TID [facility] Last Admin: 09/30/18 05:56 Dose: Not Given Loperamide HCl (Imodium -) 2 mg PO Q6H PRN PRN Reason: DIARRHEA Last Admin: 09/29/18 22:43 Dose: 2 mg Losartan Potassium (Cozaar -) 100 mg PO DAILY [facility] Last Admin: 09/30/18 09:20 Dose: 100 mg Miscellaneous (Lidoderm Patch Removal) 1 each MC DAILY@2200 [facility] Last Admin: 09/29/18 22:44 Dose: 1 each Nifedipine (Procardia Xl -) 90 mg PO DAILY [facility] Last Admin: 09/30/18 09:22 Dose: 90 mg Nystatin (Mycostatin Ointment -) 1 applic TP BID [facility] Last Admin: 09/30/18 09:23 Dose: 1 applic Ondansetron HCl (Zofran Odt -) 8 mg SL Q8H PRN PRN Reason: NAUSEA Last Admin: 09/29/18 09:04 Dose: 8 mg - Objective Vital Signs: Vital Signs Temperature 98.6 F 09/30/18 06:00 Pulse Rate 62 09/30/18 06:00 Respiratory Rate 18 09/30/18 06:00 Blood Pressure 134/59 L 09/30/18 06:00 O2 Sat by Pulse Oximetry (%) 97 09/29/18 21:00 Constitutional: Yes: No Distress, Calm Eyes: Yes: Conjunctiva Clear HENT: Yes: Atraumatic Neck: Yes: Supple Cardiovascular: Yes: Regular Rate and Rhythm Respiratory: Yes: CTA Bilaterally Gastrointestinal: Yes: Soft. No: Tenderness Genitourinary: No: CVA Tenderness - Left, CVA Tenderness - Right Musculoskeletal: No: Joint Stiffness, Joint Swelling Extremities: No: Cold, Cool, Cyanosis Edema: No Integumentary: No: Rash, Venous Stasis Changes Neurological: Yes: WNL, Alert, Oriented ...Motor Strength: WNL Psychiatric: Yes: WNL, Alert, Oriented. No: Agitated, Suicidal Ideation Labs: CBC, BMP 09/30/18 07:30 09/30/18 07:30 - ....Imaging Other: Report Reviewed Assessment/Plan Patient is an 83-year-old female with PA MH of hypertension, end-stage renal disease on hemodialysis, NIDDM, chronic diarrhea, frequent falls, non compliant with dialysis, status post fall sec to lower extremities weakness. Nerve compression on spine CT neurology, PT and rehab eval pain meds prn dialysis per renal DVT pfx falls PFX check UA Ucx r/o UTI po questran for diarrhea prn improved - can see GI outpt will need SNF / NH placement d/w pt and staff
[2018-09-30] MEDS ORDERED: PT OWN MED DRAWER 7, Y5N ONE (21:50)
[2018-09-30] MEDS: ATORVASTATIN CA 10 MG TABLET (FP) PO SCH (21:59)
[2018-09-30] MEDS: glipiZIDE-XL 2.5 MG TAB.ER.24 PO SCH (22:00)
[2018-09-30] MEDS: AMITRIPTYLINE HCL 25 MG TABLET (FP) PO SCH (22:01)
[2018-09-30] MEDS: LIDOCAINE PATCH REMOVAL MC SCH ×2 (22:09→22:18)
[2018-10-01] MEDS ORDERED: LABETALOL HCL 100 MG TABLET (FP) ONE ×2 (06:19→21:07)
[2018-10-01] MEDS ORDERED: LABETALOL HCL 200 MG TABLET (FP) ONE ×2 (06:20→21:08)
[2018-10-01] MEDS: glipiZIDE 5 MG TABLET (FP) PO SCH (06:38)
[2018-10-01] MEDS: LABETALOL HCL 200 MG, LABETALOL HCL 100 MG PO SCH ×3 (06:38→21:22)
--- NOTE | 2018-10-01 08:46 | PN ---
Progress Note, Physician Chief Complaint: in bed no new c/o said she is feeling better consults appreciated d/w pt for dialysis today then DC to SNF pt agreed d.w CM - Current Medication List Current Medications: Active Medications Acetaminophen (Tylenol -) 650 mg PO Q6H PRN PRN Reason: PAIN Last Admin: 09/30/18 22:01 Dose: 650 mg Alprazolam (Xanax -) 0.25 mg PO BID PRN PRN Reason: ANXIETY Last Admin: 09/30/18 09:25 Dose: 0.25 mg Amitriptyline HCl (Elavil -) 50 mg PO HS [facility] Last Admin: 09/30/18 22:01 Dose: 50 mg Aspirin (Ecotrin -) 81 mg PO DAILY [facility] Last Admin: 09/30/18 09:21 Dose: 81 mg Atorvastatin Calcium (Lipitor -) 10 mg PO HS [facility] Last Admin: 09/30/18 21:59 Dose: 10 mg Calcitriol (Rocaltrol -) 0.25 mcg PO DAILY [facility] Last Admin: 09/30/18 09:21 Dose: 0.25 mcg Calcium Acetate (Phoslo -) 667 mg PO TIDCM [facility] Last Admin: 09/30/18 17:04 Dose: 667 mg Cholestyramine Resin (Questran Light Packet -) 4 gm PO QID [facility] Last Admin: 09/30/18 21:57 Dose: 4 gm Ferrous Sulfate (Feosol -) 325 mg PO BID [facility] Last Admin: 09/30/18 22:00 Dose: 325 mg Gabapentin (Neurontin -) 300 mg PO BID [facility] Last Admin: 09/30/18 21:59 Dose: 300 mg Glipizide (Glucotrol -) 5 mg PO DAILY@0700 [facility] Last Admin: 10/01/18 06:38 Dose: Not Given Glipizide (Glucotrol Xl -) 2.5 mg PO HS [facility] Last Admin: 09/30/18 22:00 Dose: 2.5 mg Heparin Sodium (Porcine) (Heparin -) 5,000 unit SQ BID [facility] Last Admin: 09/30/18 21:59 Dose: 5,000 unit Heparin Sodium (Porcine) (Heparin -) 500 unit IVPUSH ONCE ONE Stop: 10/01/18 07:00 Heparin Sodium (Porcine) (Heparin -) 300 unit IVPUSH Q1H [facility] Stop: 10/01/18 09:01 Sodium Chloride (Normal Saline -) 250 mls @ 3,000 mls/hr IV PRN PRN PRN Reason: Hypotension during Dialysis Stop: 09/29/18 12:33 Sodium Chloride (Normal Saline -) 250 mls @ 3,000 mls/hr IV PRN PRN PRN Reason: Hypotension during Dialysis Stop: 10/02/18 06:59 Isosorbide Mononitrate (Imdur -) 30 mg PO DAILY [facility] Last Admin: 09/30/18 09:21 Dose: 30 mg Labetalol HCl 200 mg/ (Labetalol HCl 100 mg) 300 mg PO TID [facility] Last Admin: 10/01/18 06:38 Dose: Not Given Loperamide HCl (Imodium -) 2 mg PO Q6H PRN PRN Reason: DIARRHEA Last Admin: 09/29/18 22:43 Dose: 2 mg Losartan Potassium (Cozaar -) 100 mg PO DAILY [facility] Last Admin: 09/30/18 09:20 Dose: 100 mg Miscellaneous (Lidoderm Patch Removal) 1 each MC DAILY@2200 [facility] Last Admin: 09/30/18 22:18 Dose: Not Given Nifedipine (Procardia Xl -) 90 mg PO DAILY [facility] Last Admin: 09/30/18 09:22 Dose: 90 mg Nystatin (Mycostatin Ointment -) 1 applic TP BID [facility] Last Admin: 09/30/18 22:10 Dose: 1 applic Ondansetron HCl (Zofran Odt -) 8 mg SL Q8H PRN PRN Reason: NAUSEA Last Admin: 09/29/18 09:04 Dose: 8 mg - Objective Vital Signs: Vital Signs Temperature 98.4 F 10/01/18 06:00 Pulse Rate 103 H 10/01/18 06:00 Respiratory Rate 18 10/01/18 06:00 Blood Pressure 141/92 10/01/18 06:00 O2 Sat by Pulse Oximetry (%) 96 09/30/18 21:00 Constitutional: Yes: No Distress, Calm Eyes: Yes: Conjunctiva Clear HENT: Yes: Atraumatic Neck: Yes: Supple Cardiovascular: Yes: Regular Rate and Rhythm Respiratory: Yes: CTA Bilaterally Gastrointestinal: Yes: Soft. No: Tenderness Genitourinary: No: Hematuria Musculoskeletal: No: Joint Stiffness, Joint Swelling Extremities: No: Cold, Cool Edema: No Integumentary: No: Rash, Venous Stasis Changes Neurological: Yes: WNL, Alert ...Motor Strength: WNL Psychiatric: Yes: WNL, Alert. No: Agitated, Suicidal Ideation Labs: CBC, BMP 09/30/18 07:30 09/30/18 07:30 - ....Imaging Other: Report Reviewed Assessment/Plan Patient is an 83-year-old female with PA MH of hypertension, end-stage renal disease on hemodialysis, NIDDM, chronic diarrhea, frequent falls, non compliant with dialysis, status post fall sec to lower extremities weakness. Nerve compression on spine CT neurology, PT and rehab eval pain meds prn dialysis per renal DVT pfx falls PFX check UA Ucx r/o UTI po questran for diarrhea prn improved - can see GI outpt will need SNF / NH placement d/w pt and staff
--- NOTE | 2018-10-01 09:00 | PN ---
Progress Note (short form) - Note Progress Note: Neurology History of Present Illness: 83-year-old female with PA MH of hypertension, end-stage renal disease on hemodialysis, NIDDM, chronic diarrhea, frequent falls, who presented to the ER from home status post fall sec to lower extremities weakness. Patient stated she was walking and her legs felt weak so she fell down. Patient also stated that she hit her head. Denied losing consciousness. She statedd that her back pain is along her right side and running down the leg. Denies fevers, chills, shortness of breath, headache, dizziness, nausea, vomiting, diarrhea, frequency , urgency and hematuria. Pt was recently DCd home from SNF/AK; missed dialysis for 1 week said she could not arrange transportation b/o financial reasons. Does report back discomfort but comfortable appearing. CT head completed and without acute changes. CT L spine with L4/L5 disc bulge/protrusion with impingement of R L5 root, also with L5/S1 minimal bulge impingement of L5 root. Comfortable in bed, no new complaints, remains stable this AM. No events over the weekend. Planned for rehab placement. - Allergies Allergies/Adverse Reactions: Allergies Allergy/AdvReac Type Severity Reaction Status Date / Time iodine Allergy Rash Verified 09/25/18 16:17 penicillin V Allergy Verified 09/25/18 16:17 shellfish derived Allergy Rash Verified 09/25/18 16:17 vancomycin Allergy Verified 09/25/18 16:17 azithromycin AdvReac Verified 09/25/18 16:17 Active Medications Acetaminophen (Tylenol -) 650 mg PO Q6H PRN PRN Reason: PAIN Last Admin: 09/30/18 22:01 Dose: 650 mg Alprazolam (Xanax -) 0.25 mg PO BID PRN PRN Reason: ANXIETY Last Admin: 09/30/18 09:25 Dose: 0.25 mg Amitriptyline HCl (Elavil -) 50 mg PO HS [facility] Last Admin: 09/30/18 22:01 Dose: 50 mg Aspirin (Ecotrin -) 81 mg PO DAILY [facility] Last Admin: 09/30/18 09:21 Dose: 81 mg Atorvastatin Calcium (Lipitor -) 10 mg PO HS [facility] Last Admin: 09/30/18 21:59 Dose: 10 mg Calcitriol (Rocaltrol -) 0.25 mcg PO DAILY [facility] Last Admin: 09/30/18 09:21 Dose: 0.25 mcg Calcium Acetate (Phoslo -) 667 mg PO TIDCM [facility] Last Admin: 09/30/18 17:04 Dose: 667 mg Cholestyramine Resin (Questran Light Packet -) 4 gm PO QID [facility] Last Admin: 09/30/18 21:57 Dose: 4 gm Ferrous Sulfate (Feosol -) 325 mg PO BID [facility] Last Admin: 09/30/18 22:00 Dose: 325 mg Gabapentin (Neurontin -) 300 mg PO BID [facility] Last Admin: 09/30/18 21:59 Dose: 300 mg Glipizide (Glucotrol -) 5 mg PO DAILY@0700 [facility] Last Admin: 10/01/18 06:38 Dose: Not Given Glipizide (Glucotrol Xl -) 2.5 mg PO HS [facility] Last Admin: 09/30/18 22:00 Dose: 2.5 mg Heparin Sodium (Porcine) (Heparin -) 5,000 unit SQ BID [facility] Last Admin: 09/30/18 21:59 Dose: 5,000 unit Heparin Sodium (Porcine) (Heparin -) 500 unit IVPUSH ONCE ONE Stop: 10/01/18 07:00 Heparin Sodium (Porcine) (Heparin -) 300 unit IVPUSH Q1H [facility] Stop: 10/01/18 09:01 Sodium Chloride (Normal Saline -) 250 mls @ 3,000 mls/hr IV PRN PRN PRN Reason: Hypotension during Dialysis Stop: 09/29/18 12:33 Sodium Chloride (Normal Saline -) 250 mls @ 3,000 mls/hr IV PRN PRN PRN Reason: Hypotension during Dialysis Stop: 10/02/18 06:59 Isosorbide Mononitrate (Imdur -) 30 mg PO DAILY [facility] Last Admin: 09/30/18 09:21 Dose: 30 mg Labetalol HCl 200 mg/ (Labetalol HCl 100 mg) 300 mg PO TID [facility] Last Admin: 10/01/18 06:38 Dose: Not Given Loperamide HCl (Imodium -) 2 mg PO Q6H PRN PRN Reason: DIARRHEA Last Admin: 09/29/18 22:43 Dose: 2 mg Losartan Potassium (Cozaar -) 100 mg PO DAILY [facility] Last Admin: 09/30/18 09:20 Dose: 100 mg Miscellaneous (Lidoderm Patch Removal) 1 each DAILY@2200 [facility] Last Admin: 09/30/18 22:18 Dose: Not Given Nifedipine (Procardia Xl -) 90 mg PO DAILY [facility] Last Admin: 09/30/18 09:22 Dose: 90 mg Nystatin (Mycostatin Ointment -) 1 applic TP BID [facility] Last Admin: 09/30/18 22:10 Dose: 1 applic Ondansetron HCl (Zofran Odt -) 8 mg SL Q8H PRN PRN Reason: NAUSEA Last Admin: 09/29/18 09:04 Dose: 8 mg Physical Examination Vital Signs Period Temp Pulse Resp BP Sys/Banuelos Pulse Ox Last 24 Hr 97.4 F-99.2 F 57-103 17-18 130-145/53-92 96 Constitutional: Yes: Anxious Eyes: Yes: Conjunctiva Clear HENT: Yes: Atraumatic Neck: Yes: Supple Cardiovascular: Yes: Regular Rate and Rhythm Respiratory: Yes: CTA Bilaterally Gastrointestinal: Yes: Soft. No: Tenderness Renal/: No: Hematuria Musculoskeletal: No: Joint Stiffness, Joint Swelling Extremities: No: Cold, Cool, Cyanosis, External Rotation Edema: No Integumentary: No: Rash, Venous Stasis Changes Neurological: Yes: WNL, Alert, Oriented. No: Tremors ...Motor Strength: WNL Psychiatric: Yes: WNL, Alert, Oriented. No: Agitated CBCD WBC 4.3 K/mm3 (4.0-10.0) 09/30/18 07:30 RBC 3.64 M/mm3 (3.60-5.2) 09/30/18 07:30 Hgb 11.1 GM/dL (10.7-15.3) 09/30/18 07:30 Hct 33.8 % (32.4-45.2) 09/30/18 07:30 MCV 92.9 fl (80-96) 09/30/18 07:30 MCHC 33.0 g/dl (32.0-36.0) 09/30/18 07:30 RDW 15.1 % (11.6-15.6) 09/30/18 07:30 Plt Count 219 K/MM3 (134-434) D 09/30/18 07:30 MPV 8.6 fl (7.5-11.1) 09/30/18 07:30 CMP Sodium 139 mmol/L (136-145) 09/30/18 07:30 Potassium 3.6 mmol/L (3.5-5.1) 09/30/18 07:30 Chloride 103 mmol/L (98-107) 09/30/18 07:30 Carbon Dioxide 28 mmol/L (21-32) 09/30/18 07:30 Anion Gap 8 MMOL/L (8-16) 09/30/18 07:30 BUN 35 mg/dL (7-18) H 09/30/18 07:30 Creatinine 5.5 mg/dL (0.55-1.3) H 09/30/18 07:30 Creat Clearance w eGFR 7.44 (>60) 09/30/18 07:30 Random Glucose 71 mg/dL (74-106) L 09/30/18 07:30 Calcium 8.2 mg/dL (8.5-10.1) L 09/30/18 07:30 Total Bilirubin 0.2 mg/dL (0.2-1) 09/30/18 07:30 AST 23 U/L (15-37) 09/30/18 07:30 ALT 22 U/L (13-61) 09/30/18 07:30 Alkaline Phosphatase 77 U/L (45-117) 09/30/18 07:30 Total Protein 6.2 g/dl (6.4-8.2) L 09/30/18 07:30 Albumin 2.9 g/dl (3.4-5.0) L 09/30/18 07:30 CARDIAC ENZYMES Creatine Kinase 344 U/L (26-192) H 09/30/18 07:30 Assessment/Plan 83-year-old female with PA MH of hypertension, end-stage renal disease on hemodialysis, NIDDM, chronic diarrhea, frequent falls, who presented to the ER from home status post fall sec to lower extremities weakness. Patient stated she was walking and her legs felt weak so she fell down. Patient also stated that she hit her head. Denied losing consciousness. She statedd that her back pain is along her right side and running down the leg. Denies fevers, chills, shortness of breath, headache, dizziness, nausea, vomiting, diarrhea, frequency , urgency and hematuria. Pt was recently DCd home from SNF/NH; missed dialysis for 1 week said she could not arrange transportation b/o financial reasons. Does report back discomfort but comfortable appearing. CT head completed and without acute changes. CT L spine with L4/L5 disc bulge/protrusion with impingement of R L5 root, also with L5/S1 minimal bulge impingement of L5 root. Comfortable in bed, no new complaints, remains stable this AM. No events over the weekend. Planned for rehab placement. Added gabapentin 300 bid to regiment for lumbar radiculopathy, no side effects, some relief. Pain mgmt as able. Physicial therapy as tolerated, fall precautions. May benefit from short term rehab.
[2018-10-01] MEDS: NYSTATIN 100000 UNIT/GM TOPICAL OINTMENT 15 GM TUBE TP SCH ×2 (10:00→21:22)
[2018-10-01] MEDS: FERROUS SO4 325 MG TABLET (FP) PO SCH ×2 (10:00→21:22)
[2018-10-01] MEDS: HEPARIN NA (PORCINE) 5,000 UNITS/ML 1ML VIAL SQ SCH ×2 (10:00→21:22)
[2018-10-01] MEDS: NIFEdipine E.R. 90 MG TABLET (FP) PO SCH (10:00)
[2018-10-01] MEDS: ISOSORBIDE MONONITRATE 30 MG TAB.SR.24H (FP) PO SCH (10:00)
[2018-10-01 10:03] LABS: HEMOGLOBIN 10.8 GM/dL (10.7-15.3); MCH 31.2 pg (25.7-33.7); MCHC 33.6 g/dl (32.0-36.0); MEAN CELL VOLUME 92.9 fl (80-96); MEAN PLT VOLUME 8.7 fl (7.5-11.1); PLATELET COUNT 215 K/MM3 (134-434); RBC 3.45 M/mm3 (3.60-5.2); WHITE BLOOD COUNT 4.1 K/mm3 (4.0-10.0)
[2018-10-01 10:18] LABS: ANION GAP 8 MMOL/L (8-16); BLOOD UREA NITROGEN 47 mg/dL (7-18); CHLORIDE 106 mmol/L (98-107); CO2 27 mmol/L (21-32); CREATININE 6.5 mg/dL (0.55-1.3); GLUCOSE,RANDOM 65 mg/dL (74-106); PHOSPHOROUS 4.5 mg/dL (2.5-4.9); POTASSIUM 4.4 mmol/L (3.5-5.1); SODIUM 140 mmol/L (136-145)
--- NOTE | 2018-10-01 11:31 | PN ---
Progress Note (short form) - Note Progress Note: Renal follow up for ESRD on HD Pt seen and examined at the bedside reports still being confused no sob, cp, abd pain, N/V/D Vital Signs Temperature 98.4 F 10/01/18 06:00 Pulse Rate 103 H 10/01/18 06:00 Respiratory Rate 18 10/01/18 06:00 Blood Pressure 141/92 10/01/18 06:00 O2 Sat by Pulse Oximetry (%) 96 09/30/18 21:00 Intake & Output 09/28/18 09/29/18 09/30/18 10/01/18 23:59 23:59 23:59 23:59 Intake Total 0 530 520 120 Balance 0 530 520 120 Weight 47.627 kg NAD RRR CTA soft NT/ND no LE edema, clubbing or cyanosis No N/V/D CBC, BMP 10/01/18 09:30 10/01/18 09:30 Current Medications Acetaminophen (Tylenol -) 650 mg PO Q6H PRN PRN Reason: PAIN Last Admin: 09/30/18 22:01 Dose: 650 mg Alprazolam (Xanax -) 0.25 mg PO BID PRN PRN Reason: ANXIETY Last Admin: 09/30/18 09:25 Dose: 0.25 mg Amitriptyline HCl (Elavil -) 50 mg PO HS [facility] Last Admin: 09/30/18 22:01 Dose: 50 mg Aspirin (Ecotrin -) 81 mg PO DAILY [facility] Last Admin: 09/30/18 09:21 Dose: 81 mg Atorvastatin Calcium (Lipitor -) 10 mg PO HS [facility] Last Admin: 09/30/18 21:59 Dose: 10 mg Calcitriol (Rocaltrol -) 0.25 mcg PO DAILY [facility] Last Admin: 09/30/18 09:21 Dose: 0.25 mcg Calcium Acetate (Phoslo -) 667 mg PO TIDCM [facility] Last Admin: 09/30/18 17:04 Dose: 667 mg Cholestyramine Resin (Questran Light Packet -) 4 gm PO QID [facility] Last Admin: 09/30/18 21:57 Dose: 4 gm Ferrous Sulfate (Feosol -) 325 mg PO BID [facility] Last Admin: 09/30/18 22:00 Dose: 325 mg Gabapentin (Neurontin -) 300 mg PO DAILY [facility] Glipizide (Glucotrol -) 5 mg PO DAILY@0700 [facility] Last Admin: 10/01/18 06:38 Dose: Not Given Glipizide (Glucotrol Xl -) 2.5 mg PO HS [facility] Last Admin: 09/30/18 22:00 Dose: 2.5 mg Heparin Sodium (Porcine) (Heparin -) 5,000 unit SQ BID [facility] Last Admin: 09/30/18 21:59 Dose: 5,000 unit Heparin Sodium (Porcine) (Heparin -) 500 unit IVPUSH ONCE ONE Stop: 10/01/18 07:00 Heparin Sodium (Porcine) (Heparin -) 300 unit IVPUSH Q1H [facility] Stop: 10/01/18 09:01 Sodium Chloride (Normal Saline -) 250 mls @ 3,000 mls/hr IV PRN PRN PRN Reason: Hypotension during Dialysis Stop: 09/29/18 12:33 Sodium Chloride (Normal Saline -) 250 mls @ 3,000 mls/hr IV PRN PRN PRN Reason: Hypotension during Dialysis Stop: 10/02/18 06:59 Isosorbide Mononitrate (Imdur -) 30 mg PO DAILY [facility] Last Admin: 09/30/18 09:21 Dose: 30 mg Labetalol HCl 200 mg/ (Labetalol HCl 100 mg) 300 mg PO TID [facility] Last Admin: 10/01/18 06:38 Dose: Not Given Loperamide HCl (Imodium -) 2 mg PO Q6H PRN PRN Reason: DIARRHEA Last Admin: 09/29/18 22:43 Dose: 2 mg Losartan Potassium (Cozaar -) 100 mg PO DAILY [facility] Last Admin: 09/30/18 09:20 Dose: 100 mg Miscellaneous (Lidoderm Patch Removal) 1 each MC DAILY@2200 [facility] Last Admin: 09/30/18 22:18 Dose: Not Given Nifedipine (Procardia Xl -) 90 mg PO DAILY [facility] Last Admin: 09/30/18 09:22 Dose: 90 mg Nystatin (Mycostatin Ointment -) 1 applic TP BID [facility] Last Admin: 09/30/18 22:10 Dose: 1 applic Ondansetron HCl (Zofran Odt -) 8 mg SL Q8H PRN PRN Reason: NAUSEA Last Admin: 09/29/18 09:04 Dose: 8 mg 83 year old woman with hx of ESRD on Hd (twice weekly), DM, Hypertension, hyperlipidemia who presented s/p fall with complaints of weak legs. #ESRD on HD #LE weakness with lumbar radiculopathy and nerve root impingement #Hypertension #Metabolic acidosis For dialysis today via catheter Gabapentin dose adjusted for ESRD Neurology follow up Physical therapy Thank you Quentin Goyal DO
[2018-10-01] MEDS: ASPIRIN COATED 81 MG TABLET.EC PO SCH (18:26)
[2018-10-01] MEDS ORDERED: SODIUM CHLORIDE 250 ML IV PRN (18:26)
[2018-10-01] MEDS ORDERED: HEPARIN NA (PORCINE) 5,000 UNITS/ML 1ML VIAL IVPUSH ONE (18:30)
[2018-10-01] MEDS: HEPARIN NA (PORCINE) 5,000 UNITS/ML 1ML VIAL IVPUSH SCH ×3 (18:30→21:22)
[2018-10-01] MEDS: CALCITRIOL 0.25 MCG CAPSULE (FP) PO SCH (18:34)
[2018-10-01] MEDS: CHOLESTYRAMINE/ASPARTAME 4 GM PACKET PO SCH ×2 (18:34→21:23)
[2018-10-01 20:04] LABS: CREATININE 3.1 mg/dL (0.55-1.3)
[2018-10-01] MEDS: ALPRAZolam 0.25 MG TABLET PO PRN (21:14)
[2018-10-01] MEDS ORDERED: PT OWN MED DRAWER 7, Y5N ONE (21:16)
[2018-10-01] MEDS: ATORVASTATIN CA 10 MG TABLET (FP) PO SCH (21:22)
[2018-10-01] MEDS: glipiZIDE-XL 2.5 MG TAB.ER.24 PO SCH (21:22)
[2018-10-01] MEDS: LIDOCAINE PATCH REMOVAL MC SCH (21:22)
[2018-10-01] MEDS: AMITRIPTYLINE HCL 25 MG TABLET (FP) PO SCH (21:22)
[2018-10-02] MEDS ORDERED: LABETALOL HCL 200 MG TABLET (FP) ONE ×3 (05:03→21:13)
[2018-10-02] MEDS ORDERED: LABETALOL HCL 100 MG TABLET (FP) ONE ×3 (05:03→21:13)
--- NOTE | 2018-10-02 07:17 | DS ---
Physical Examination Vital Signs: Vital Signs Temperature 98 F 10/02/18 05:20 Pulse Rate 76 10/02/18 05:20 Respiratory Rate 18 10/02/18 05:20 Blood Pressure 168/88 10/02/18 05:20 O2 Sat by Pulse Oximetry (%) 97 10/01/18 21:00 Findings/Remarks: feeling well not confused asgreed with SNF 'd/w CM can be DC to NH - per CM awaiting insurance approval Constitutional: Yes: No Distress, Calm Eyes: Yes: Conjunctiva Clear HENT: Yes: Atraumatic Neck: Yes: Supple Cardiovascular: Yes: Regular Rate and Rhythm Respiratory: Yes: CTA Bilaterally Gastrointestinal: Yes: Soft. No: Tenderness Renal/: No: CVA Tenderness - Left, CVA Tenderness - Right Musculoskeletal: No: Joint Stiffness Extremities: No: Calf Tenderness, Cold, Cool Edema: No Integumentary: No: Rash, Venous Stasis Changes Neurological: Yes: WNL, Alert, Oriented ...Motor Strength: WNL Psychiatric: Yes: WNL, Alert, Oriented. No: Agitated, Suicidal Ideation Labs: CBC, BMP 10/01/18 09:30 10/01/18 18:10 Discharge Summary Reason For Visit: HERNIATION OF INTERVERTEBRAL DISC/ Current Active Problems Herniated disc (Acute) Lumbar nerve root impingement (Acute) Procedures: Principal: s/p fall back pain, compression neuropathy Other Procedures: seen by neurology, PT rehab;. dialysed by renal;. medical management for back pain Hospital Course: improved with above; DC to [place] for SNF/PT rehab Condition: Stable - Instructions Diet, Activity, Other Instructions: f/u PCP neurology and PT rehab in 1-2 weeks after DC from [place] f/u GI, cardiology, in 2-4 weeks after DC from [place]; dialysis per renal falls decubs PFX take meds as advised; Referrals: Angela Barahona [Primary Care Provider] - Sonya Zuniga DO [Staff Physician] - Quentin Goyal MD [Staff Physician] - Wiley Chopra MD [Staff Physician] - Oswaldo Lam MD [Staff Physician] - Bob Jane MD [Staff Physician] - Dany Holt MD [Staff Physician] - Disposition: [facility] - Home Medications Comprehensive Discharge Medication List: Ambulatory Orders Aspirin Coated [Ecotrin -] 81 mg PO DAILY tablet.ec 09/15/16 Glipizide 5 mg PO DAILY 06/26/17 Calcitriol [Calcitriol -] 0.25 mcg PO DAILY capsule 12/29/17 Ferrous Sulfate [Feosol] 325 mg PO BID ud 12/29/17 Alprazolam [Xanax] 0.25 mg PO BID 05/05/18 Amitriptyline HCl [Elavil -] 50 mg PO HS 05/05/18 Atorvastatin Ca [Lipitor] 10 mg PO HS 05/05/18 Isosorbide Mononitrate [Imdur -] 30 mg PO DAILY 05/05/18 Acetaminophen [Tylenol .Regular Strength -] 650 mg PO Q6H PRN tablet 06/05/18 Glipizide [Glipizide ER] 2.5 mg PO HS 07/14/18 Calcium Acetate [Phoslo -] 667 mg PO TIDCM capsule 09/04/18 Cholestyramine/Aspartame [Questran Light Packet -] 4 gm PO QID packet 09/04/18 Labetalol HCl [Normodyne -] 300 mg PO TID tablet 09/04/18 Loperamide HCl [Imodium -] 2 mg PO Q6H PRN capsule 09/04/18 Losartan Potassium [Cozaar -] 100 mg PO DAILY tablet 09/04/18 Nifedipine ER [Procardia XL -] 90 mg PO DAILY tab.er.24 09/04/18 Nystatin Ointment [Mycostatin Ointment -] 1 applic TP BID applic 09/04/18 Cephalexin Monohydrate [Keflex -] 500 mg PO BID #10 capsule 09/15/18 Ondansetron [Zofran *Odt*] 8 mg SL TID PRN 09/15/18
--- NOTE | 2018-10-02 09:07 | PN ---
Progress Note (short form) - Note Progress Note: Neurology History of Present Illness: 83-year-old female with PA MH of hypertension, end-stage renal disease on hemodialysis, NIDDM, chronic diarrhea, frequent falls, who presented to the ER from home status post fall sec to lower extremities weakness. Patient stated she was walking and her legs felt weak so she fell down. Patient also stated that she hit her head. Denied losing consciousness. She statedd that her back pain is along her right side and running down the leg. Denies fevers, chills, shortness of breath, headache, dizziness, nausea, vomiting, diarrhea, frequency , urgency and hematuria. Pt was recently DCd home from SNF/[facility]; missed dialysis for 1 week said she could not arrange transportation b/o financial reasons. Does report back discomfort but comfortable appearing. CT head completed and without acute changes. CT L spine with L4/L5 disc bulge/protrusion with impingement of R L5 root, also with L5/S1 minimal bulge impingement of L5 root. Comfortable in bed, no new complaints, remains stable this AM. Knows her and name of president. Still unaware of where she is but this may be baseline. Planned for rehab placement. - Allergies Allergies/Adverse Reactions: Allergies Allergy/AdvReac Type Severity Reaction Status Date / Time iodine Allergy Rash Verified 09/25/18 16:17 penicillin V Allergy Verified 09/25/18 16:17 shellfish derived Allergy Rash Verified 09/25/18 16:17 vancomycin Allergy Verified 09/25/18 16:17 azithromycin AdvReac Verified 09/25/18 16:17 Active Medications Acetaminophen (Tylenol -) 650 mg PO Q6H PRN PRN Reason: PAIN Last Admin: 09/30/18 22:01 Dose: 650 mg Alprazolam (Xanax -) 0.25 mg PO BID PRN PRN Reason: ANXIETY Last Admin: 09/30/18 09:25 Dose: 0.25 mg Amitriptyline HCl (Elavil -) 50 mg PO HS [facility] Last Admin: 10/01/18 21:22 Dose: Not Given Aspirin (Ecotrin -) 81 mg PO DAILY [facility] Last Admin: 10/01/18 18:26 Dose: 81 mg Atorvastatin Calcium (Lipitor -) 10 mg PO HS [facility] Last Admin: 10/01/18 21:22 Dose: Not Given Calcitriol (Rocaltrol -) 0.25 mcg PO DAILY [facility] Last Admin: 10/01/18 18:34 Dose: Not Given Calcium Acetate (Phoslo -) 667 mg PO TIDCM [facility] Last Admin: 09/30/18 17:04 Dose: 667 mg Cholestyramine Resin (Questran Light Packet -) 4 gm PO QID [facility] Last Admin: 10/01/18 21:23 Dose: Not Given Ferrous Sulfate (Feosol -) 325 mg PO BID [facility] Last Admin: 10/01/18 21:22 Dose: Not Given Gabapentin (Neurontin -) 300 mg PO DAILY [facility] Glipizide (Glucotrol -) 5 mg PO DAILY@0700 [facility] Last Admin: 10/01/18 06:38 Dose: Not Given Glipizide (Glucotrol Xl -) 2.5 mg PO HS [facility] Last Admin: 10/01/18 21:22 Dose: Not Given Heparin Sodium (Porcine) (Heparin -) 5,000 unit SQ BID [facility] Last Admin: 10/01/18 21:22 Dose: Not Given Isosorbide Mononitrate (Imdur -) 30 mg PO DAILY [facility] Last Admin: 10/01/18 10:00 Dose: Not Given Labetalol HCl 200 mg/ (Labetalol HCl 100 mg) 300 mg PO TID [facility] Last Admin: 10/01/18 21:22 Dose: Not Given Loperamide HCl (Imodium -) 2 mg PO Q6H PRN PRN Reason: DIARRHEA Last Admin: 09/29/18 22:43 Dose: 2 mg Losartan Potassium (Cozaar -) 100 mg PO DAILY [facility] Last Admin: 09/30/18 09:20 Dose: 100 mg Miscellaneous (Lidoderm Patch Removal) 1 each MC DAILY@2200 [facility] Last Admin: 10/01/18 21:22 Dose: Not Given Nifedipine (Procardia Xl -) 90 mg PO DAILY [facility] Last Admin: 10/01/18 10:00 Dose: Not Given Nystatin (Mycostatin Ointment -) 1 applic TP BID [facility] Last Admin: 10/01/18 21:22 Dose: Not Given Ondansetron HCl (Zofran Odt -) 8 mg SL Q8H PRN PRN Reason: NAUSEA Last Admin: 09/29/18 09:04 Dose: 8 mg Physical Examination Vital Signs Period Temp Pulse Resp BP Sys/Banuelos Pulse Ox Last 24 Hr 98 F-98.4 F 63-78 17-18 130-197/45-98 97 Constitutional: Yes: Anxious Eyes: Yes: Conjunctiva Clear HENT: Yes: Atraumatic Neck: Yes: Supple Cardiovascular: Yes: Regular Rate and Rhythm Respiratory: Yes: CTA Bilaterally Gastrointestinal: Yes: Soft. No: Tenderness Renal/: No: Hematuria Musculoskeletal: No: Joint Stiffness, Joint Swelling Extremities: No: Cold, Cool, Cyanosis, External Rotation Edema: No Integumentary: No: Rash, Venous Stasis Changes Neurological: Yes: WNL, Alert, Oriented. No: Tremors ...Motor Strength: WNL Psychiatric: Yes: WNL, Alert, Oriented. No: Agitated CBCD WBC 4.1 K/mm3 (4.0-10.0) 10/01/18 09:30 RBC 3.45 M/mm3 (3.60-5.2) L 10/01/18 09:30 Hgb 10.8 GM/dL (10.7-15.3) 10/01/18 09:30 Hct 32.0 % (32.4-45.2) L 10/01/18 09:30 MCV 92.9 fl (80-96) 10/01/18 09:30 MCHC 33.6 g/dl (32.0-36.0) 10/01/18 09:30 RDW 15.0 % (11.6-15.6) 10/01/18 09:30 Plt Count 215 K/MM3 (134-434) 10/01/18 09:30 MPV 8.7 fl (7.5-11.1) 10/01/18 09:30 CMP Sodium 140 mmol/L (136-145) 10/01/18 09:30 Potassium 4.4 mmol/L (3.5-5.1) 10/01/18 09:30 Chloride 106 mmol/L (98-107) 10/01/18 09:30 Carbon Dioxide 27 mmol/L (21-32) 10/01/18 09:30 Anion Gap 8 MMOL/L (8-16) 10/01/18 09:30 BUN 22 mg/dL (7-18) H 10/01/18 18:10 Creatinine 3.1 mg/dL (0.55-1.3) H 10/01/18 18:10 Creat Clearance w eGFR 6.14 (>60) 10/01/18 09:30 Random Glucose 65 mg/dL (74-106) L 10/01/18 09:30 Calcium 9.0 mg/dL (8.5-10.1) 10/01/18 09:30 Total Bilirubin 0.2 mg/dL (0.2-1) 09/30/18 07:30 AST 23 U/L (15-37) 09/30/18 07:30 ALT 22 U/L (13-61) 09/30/18 07:30 Alkaline Phosphatase 77 U/L (45-117) 09/30/18 07:30 Total Protein 6.2 g/dl (6.4-8.2) L 09/30/18 07:30 Albumin 2.9 g/dl (3.4-5.0) L 09/30/18 07:30 CARDIAC ENZYMES Creatine Kinase 344 U/L (26-192) H 09/30/18 07:30 Assessment/Plan 83-year-old female with PA MH of hypertension, end-stage renal disease on hemodialysis, NIDDM, chronic diarrhea, frequent falls, who presented to the ER from home status post fall sec to lower extremities weakness. Patient stated she was walking and her legs felt weak so she fell down. Patient also stated that she hit her head. Denied losing consciousness. She statedd that her back pain is along her right side and running down the leg. Denies fevers, chills, shortness of breath, headache, dizziness, nausea, vomiting, diarrhea, frequency , urgency and hematuria. Pt was recently DCd home [facility]; missed dialysis for 1 week said she could not arrange transportation b/o financial reasons. Does report back discomfort but comfortable appearing. CT head completed and without acute changes. CT L spine with L4/L5 disc bulge/protrusion with impingement of R L5 root, also with L5/S1 minimal bulge impingement of L5 root. Comfortable in bed, no new complaints, remains stable this AM. No events over the weekend. Planned for rehab placement. Added gabapentin 300 bid to regiment for lumbar radiculopathy, no side effects, some relief. Pain mgmt as able. Physicial therapy as tolerated, fall precautions. Rehab placement
[2018-10-02] MEDS: FERROUS SO4 325 MG TABLET (FP) PO SCH ×2 (09:45→21:43)
[2018-10-02] MEDS: CALCITRIOL 0.25 MCG CAPSULE (FP) PO SCH (09:45)
[2018-10-02] MEDS: ISOSORBIDE MONONITRATE 30 MG TAB.SR.24H (FP) PO SCH (09:45)
[2018-10-02] MEDS: ALPRAZolam 0.25 MG TABLET PO PRN ×2 (09:45→21:45)
[2018-10-02] MEDS: LOSARTAN POTASSIUM 50 MG TABLET (FP) PO SCH (09:46)
[2018-10-02] MEDS: ASPIRIN COATED 81 MG TABLET.EC PO SCH (09:46)
[2018-10-02] MEDS: CALCIUM ACETATE 667 MG CAPSULE (FP) PO SCH ×3 (09:46→17:58)
[2018-10-02] MEDS: GABAPENTIN 300 MG CAPSULE (FP) PO SCH (09:46)
[2018-10-02] MEDS: HEPARIN NA (PORCINE) 5,000 UNITS/ML 1ML VIAL SQ SCH ×2 (09:47→21:43)
[2018-10-02] MEDS: NYSTATIN 100000 UNIT/GM TOPICAL OINTMENT 15 GM TUBE TP SCH ×2 (09:47→21:44)
[2018-10-02] MEDS: NIFEdipine E.R. 90 MG TABLET (FP) PO SCH (09:48)
[2018-10-02] MEDS: CHOLESTYRAMINE/ASPARTAME 4 GM PACKET PO SCH ×4 (09:51→21:44)
--- NOTE | 2018-10-02 11:31 | PN ---
Progress Note (short form) - Note Progress Note: Renal follow up for ESRD on HD Pt seen and examined at the bedside no acute complaints feels better has cough today no sob, cp, abd pain Vital Signs Temperature 98.0 F 10/02/18 10:00 Pulse Rate 72 10/02/18 10:00 Respiratory Rate 18 10/02/18 10:00 Blood Pressure 148/72 10/02/18 10:00 O2 Sat by Pulse Oximetry (%) 94 L 10/02/18 09:00 NAD RRR CTA soft NT/ND no LE edema, clubbing or cyanosis No N/V/D CBC, BMP 10/01/18 09:30 10/01/18 18:10 Current Medications Acetaminophen (Tylenol -) 650 mg PO Q6H PRN PRN Reason: PAIN Last Admin: 09/30/18 22:01 Dose: 650 mg Alprazolam (Xanax -) 0.25 mg PO BID PRN PRN Reason: ANXIETY Last Admin: 10/02/18 09:45 Dose: 0.25 mg Amitriptyline HCl (Elavil -) 50 mg PO HS [facility] Last Admin: 10/01/18 21:22 Dose: Not Given Aspirin (Ecotrin -) 81 mg PO DAILY [facility] Last Admin: 10/02/18 09:46 Dose: 81 mg Atorvastatin Calcium (Lipitor -) 10 mg PO HS [facility] Last Admin: 10/01/18 21:22 Dose: Not Given Calcitriol (Rocaltrol -) 0.25 mcg PO DAILY [facility] Last Admin: 10/02/18 09:45 Dose: 0.25 mcg Calcium Acetate (Phoslo -) 667 mg PO TIDCM [facility] Last Admin: 10/02/18 09:46 Dose: 667 mg Cholestyramine Resin (Questran Light Packet -) 4 gm PO QID [facility] Last Admin: 10/02/18 09:51 Dose: 4 gm Ferrous Sulfate (Feosol -) 325 mg PO BID [facility] Last Admin: 10/02/18 09:45 Dose: 325 mg Gabapentin (Neurontin -) 300 mg PO DAILY [facility] Last Admin: 10/02/18 09:46 Dose: 300 mg Glipizide (Glucotrol -) 5 mg PO DAILY@0700 [facility] Last Admin: 10/01/18 06:38 Dose: Not Given Glipizide (Glucotrol Xl -) 2.5 mg PO HS [facility] Last Admin: 10/01/18 21:22 Dose: Not Given Heparin Sodium (Porcine) (Heparin -) 5,000 unit SQ BID [facility] Last Admin: 10/02/18 09:47 Dose: 5,000 unit Isosorbide Mononitrate (Imdur -) 30 mg PO DAILY [facility] Last Admin: 10/02/18 09:45 Dose: 30 mg Labetalol HCl 200 mg/ (Labetalol HCl 100 mg) 300 mg PO TID [facility] Last Admin: 10/01/18 21:22 Dose: Not Given Loperamide HCl (Imodium -) 2 mg PO Q6H PRN PRN Reason: DIARRHEA Last Admin: 09/29/18 22:43 Dose: 2 mg Losartan Potassium (Cozaar -) 100 mg PO DAILY [facility] Last Admin: 10/02/18 09:46 Dose: 100 mg Miscellaneous (Lidoderm Patch Removal) 1 each MC DAILY@2200 [facility] Last Admin: 10/01/18 21:22 Dose: Not Given Nifedipine (Procardia Xl -) 90 mg PO DAILY [facility] Last Admin: 10/02/18 09:48 Dose: 90 mg Nystatin (Mycostatin Ointment -) 1 applic TP BID [facility] Last Admin: 10/02/18 09:47 Dose: 1 applic Ondansetron HCl (Zofran Odt -) 8 mg SL Q8H PRN PRN Reason: NAUSEA Last Admin: 09/29/18 09:04 Dose: 8 mg 83 year old woman with hx of ESRD on Hd (twice weekly), DM, Hypertension, hyperlipidemia who presented s/p fall with complaints of weak legs. #ESRD on HD with mild uremic symptoms from missed dialysis #LE weakness with lumbar radiculopathy and nerve root impingement #Hypertension #Metabolic acidosis Clinically improved awaiting rehab placement will continue dialysis twice weekly on Monday and Monday no acute indication for [employer] today continue Losartan, Labetalol and Nifedpine for BP control Thank you Quentin Goyal DO
[2018-10-02] MEDS: LABETALOL HCL 200 MG, LABETALOL HCL 100 MG PO SCH ×2 (14:52→21:43)
[2018-10-02] MEDS ORDERED: PT OWN MED DRAWER 7, Y5N ONE (21:14)
[2018-10-02] MEDS: AMITRIPTYLINE HCL 25 MG TABLET (FP) PO SCH (21:43)
[2018-10-02] MEDS: glipiZIDE-XL 2.5 MG TAB.ER.24 PO SCH (21:43)
[2018-10-02] MEDS: ATORVASTATIN CA 10 MG TABLET (FP) PO SCH (21:44)
[2018-10-02] MEDS: LIDOCAINE PATCH REMOVAL MC SCH (21:44)
[2018-10-03 03:13] LABS: HBSAG SCREEN Negative (Negative); HEP B CORE AB, TOT Negative (Negative)
[2018-10-03] MEDS ORDERED: LABETALOL HCL 100 MG TABLET (FP) ONE ×3 (06:33→21:17)
[2018-10-03] MEDS ORDERED: LABETALOL HCL 200 MG TABLET (FP) ONE ×3 (06:33→21:18)
[2018-10-03] MEDS: LABETALOL HCL 200 MG, LABETALOL HCL 100 MG PO SCH ×3 (06:54→21:44)
[2018-10-03] MEDS: glipiZIDE 5 MG TABLET (FP) PO SCH (06:54)
--- NOTE | 2018-10-03 06:54 | PN ---
Progress Note, Physician Chief Complaint: awake alert no new c/o except said she had diarrhea again but she does not want to take cholestyramine or immodium as ordered (per pt's nurse); she saw multiple GI drs in the past - she saw dr Willingham (from [facility]) 1 month ago in hospital and she was advised to see her outpt but pt. said she could not go to her yet as outpt; pt. wants to see dr Ball now and she wants to have colonoscopy now; call placed to dr Ball to see if possible to be done this admission (pt is aware her DC order is in and she could do GI w/u as outpt) ; pt does not want to see any utter GI drs (she saw dr De Paz, dr Mcfarland, dr Alcaraz in the past); D/W PT AND WELDING TESTER pt can be DC to SNF for rehab; she can go to [facility] or in other facilities that do dialysis - pt. does not want [facility] she said she prefers [facility] but per staff they do not do dialsysis anymore and [facility] denied this pt this time, d/w pt she will have to pay for transport to go to dialysis if she goes to [facility] and pt said she will if she goes to [facility], d/w shoe parts caser and renal dr - Current Medication List Current Medications: Active Medications Acetaminophen (Tylenol -) 650 mg PO Q6H PRN PRN Reason: PAIN Last Admin: 09/30/18 22:01 Dose: 650 mg Alprazolam (Xanax -) 0.25 mg PO BID PRN PRN Reason: ANXIETY Last Admin: 10/02/18 21:45 Dose: 0.25 mg Amitriptyline HCl (Elavil -) 50 mg PO HS [facility] Last Admin: 10/02/18 21:43 Dose: 50 mg Aspirin (Ecotrin -) 81 mg PO DAILY [facility] Last Admin: 10/02/18 09:46 Dose: 81 mg Atorvastatin Calcium (Lipitor -) 10 mg PO HS [facility] Last Admin: 10/02/18 21:44 Dose: 10 mg Calcitriol (Rocaltrol -) 0.25 mcg PO DAILY [facility] Last Admin: 10/02/18 09:45 Dose: 0.25 mcg Calcium Acetate (Phoslo -) 667 mg PO TIDCM [facility] Last Admin: 10/02/18 17:58 Dose: 667 mg Cholestyramine Resin (Questran Light Packet -) 4 gm PO QID [facility] Last Admin: 10/02/18 21:44 Dose: 4 gm Ferrous Sulfate (Feosol -) 325 mg PO BID [facility] Last Admin: 10/02/18 21:43 Dose: 325 mg Gabapentin (Neurontin -) 300 mg PO DAILY [facility] Last Admin: 10/02/18 09:46 Dose: 300 mg Glipizide (Glucotrol -) 5 mg PO DAILY@0700 [facility] Last Admin: 10/03/18 06:54 Dose: 5 mg Glipizide (Glucotrol Xl -) 2.5 mg PO HS [facility] Last Admin: 10/02/18 21:43 Dose: 2.5 mg Heparin Sodium (Porcine) (Heparin -) 5,000 unit SQ BID [facility] Last Admin: 10/02/18 21:43 Dose: 5,000 unit Isosorbide Mononitrate (Imdur -) 30 mg PO DAILY [facility] Last Admin: 10/02/18 09:45 Dose: 30 mg Labetalol HCl 200 mg/ (Labetalol HCl 100 mg) 300 mg PO TID [facility] Last Admin: 10/03/18 06:54 Dose: 300 mg Loperamide HCl (Imodium -) 2 mg PO Q6H PRN PRN Reason: DIARRHEA Last Admin: 09/29/18 22:43 Dose: 2 mg Losartan Potassium (Cozaar -) 100 mg PO DAILY [facility] Last Admin: 10/02/18 09:46 Dose: 100 mg Miscellaneous (Lidoderm Patch Removal) 1 each MC DAILY@2200 [facility] Last Admin: 10/02/18 21:44 Dose: 1 each Nifedipine (Procardia Xl -) 90 mg PO DAILY [facility] Last Admin: 10/02/18 09:48 Dose: 90 mg Nystatin (Mycostatin Ointment -) 1 applic TP BID [facility] Last Admin: 10/02/18 21:44 Dose: 1 applic Ondansetron HCl (Zofran Odt -) 8 mg SL Q8H PRN PRN Reason: NAUSEA Last Admin: 09/29/18 09:04 Dose: 8 mg - Objective Vital Signs: Vital Signs Temperature 98.1 F 10/03/18 05:53 Pulse Rate 61 10/03/18 05:53 Respiratory Rate 20 10/03/18 05:53 Blood Pressure 164/76 10/03/18 05:53 O2 Sat by Pulse Oximetry (%) 96 10/02/18 21:00 Constitutional: Yes: Anxious Eyes: Yes: Conjunctiva Clear HENT: Yes: Atraumatic Neck: Yes: Supple Cardiovascular: Yes: Regular Rate and Rhythm Respiratory: Yes: CTA Bilaterally Gastrointestinal: Yes: Soft. No: Tenderness Genitourinary: No: CVA Tenderness - Left, CVA Tenderness - Right Musculoskeletal: No: Joint Stiffness, Joint Swelling Extremities: No: Cold, Cool, Cyanosis Edema: No Integumentary: No: Rash, Venous Stasis Changes Neurological: Yes: WNL, Alert, Oriented ...Motor Strength: WNL Psychiatric: Yes: WNL, Alert, Oriented. No: Agitated, Suicidal Ideation Labs: CBC, BMP 10/01/18 09:30 10/01/18 18:10 - ....Imaging Other: Report Reviewed Assessment/Plan Patient is an 83-year-old female with PA MH of hypertension, end-stage renal disease on hemodialysis, NIDDM, chronic diarrhea, frequent falls, non compliant with dialysis, status post fall sec to lower extremities weakness. Nerve compression on spine CT neurology, PT and rehab f/u pain meds prn dialysis per renal DVT pfx falls PFX check UA Ucx r/o UTI recurrent diarrhea (pt refused to take her meds) pt asked for GI eval and colonoscopy now with dr Willingham - d/w pt to take meds as ordered and GI eval could be done as outpt - will ask GI input if dr Ball available will need SNF / [place] placement needs dialsysis d/w renal dr and shoe parts caser, challenging DC disposition d/w pt and staff
--- NOTE | 2018-10-03 09:26 | PN ---
Progress Note (short form) - Note Progress Note: Neurology History of Present Illness: 83-year-old female with PA MH of hypertension, end-stage renal disease on hemodialysis, NIDDM, chronic diarrhea, frequent falls, who presented to the ER from home status post fall sec to lower extremities weakness. Patient stated she was walking and her legs felt weak so she fell down. Patient also stated that she hit her head. Denied losing consciousness. She statedd that her back pain is along her right side and running down the leg. Denies fevers, chills, shortness of breath, headache, dizziness, nausea, vomiting, diarrhea, frequency , urgency and hematuria. Pt was recently DCd home from SN[facility]; missed dialysis for 1 week said she could not arrange transportation b/o financial reasons. Does report back discomfort but comfortable appearing. CT head completed and without acute changes. CT L spine with L4/L5 disc bulge/protrusion with impingement of R L5 root, also with L5/S1 minimal bulge impingement of L5 root. Comfortable in bed, no new complaints, remains stable this AM. Knows her and name of president. Now also knows she's at [place], this is likely her baseline. Planned for rehab placement. - Allergies Allergies/Adverse Reactions: Allergies Allergy/AdvReac Type Severity Reaction Status Date / Time iodine Allergy Rash Verified 09/25/18 16:17 penicillin V Allergy Verified 09/25/18 16:17 shellfish derived Allergy Rash Verified 09/25/18 16:17 vancomycin Allergy Verified 09/25/18 16:17 azithromycin AdvReac Verified 09/25/18 16:17 Active Medications Acetaminophen (Tylenol -) 650 mg PO Q6H PRN PRN Reason: PAIN Last Admin: 09/30/18 22:01 Dose: 650 mg Alprazolam (Xanax -) 0.25 mg PO BID PRN PRN Reason: ANXIETY Last Admin: 10/02/18 21:45 Dose: 0.25 mg Amitriptyline HCl (Elavil -) 50 mg PO HS [facility] Last Admin: 10/02/18 21:43 Dose: 50 mg Aspirin (Ecotrin -) 81 mg PO DAILY [facility] Last Admin: 10/02/18 09:46 Dose: 81 mg Atorvastatin Calcium (Lipitor -) 10 mg PO HS [facility] Last Admin: 10/02/18 21:44 Dose: 10 mg Calcitriol (Rocaltrol -) 0.25 mcg PO DAILY [facility] Last Admin: 10/02/18 09:45 Dose: 0.25 mcg Calcium Acetate (Phoslo -) 667 mg PO TIDCM [facility] Last Admin: 10/02/18 17:58 Dose: 667 mg Cholestyramine Resin (Questran Light Packet -) 4 gm PO QID [facility] Last Admin: 10/02/18 21:44 Dose: 4 gm Ferrous Sulfate (Feosol -) 325 mg PO BID [facility] Last Admin: 10/02/18 21:43 Dose: 325 mg Gabapentin (Neurontin -) 300 mg PO DAILY [facility] Last Admin: 10/02/18 09:46 Dose: 300 mg Glipizide (Glucotrol -) 5 mg PO DAILY@0700 [facility] Last Admin: 10/03/18 06:54 Dose: 5 mg Glipizide (Glucotrol Xl -) 2.5 mg PO HS [facility] Last Admin: 10/02/18 21:43 Dose: 2.5 mg Heparin Sodium (Porcine) (Heparin -) 5,000 unit SQ BID [facility] Last Admin: 10/02/18 21:43 Dose: 5,000 unit Isosorbide Mononitrate (Imdur -) 30 mg PO DAILY [facility] Last Admin: 10/02/18 09:45 Dose: 30 mg Labetalol HCl 200 mg/ (Labetalol HCl 100 mg) 300 mg PO TID [facility] Last Admin: 10/03/18 06:54 Dose: 300 mg Loperamide HCl (Imodium -) 2 mg PO Q6H PRN PRN Reason: DIARRHEA Last Admin: 09/29/18 22:43 Dose: 2 mg Losartan Potassium (Cozaar -) 100 mg PO DAILY [facility] Last Admin: 10/02/18 09:46 Dose: 100 mg Miscellaneous (Lidoderm Patch Removal) 1 each MC DAILY@2200 [facility] Last Admin: 10/02/18 21:44 Dose: 1 each Nifedipine (Procardia Xl -) 90 mg PO DAILY [facility] Last Admin: 10/02/18 09:48 Dose: 90 mg Nystatin (Mycostatin Ointment -) 1 applic TP BID [facility] Last Admin: 10/02/18 21:44 Dose: 1 applic Ondansetron HCl (Zofran Odt -) 8 mg SL Q8H PRN PRN Reason: NAUSEA Last Admin: 02/09/19 09:04 Dose: 8 mg Physical Examination Vital Signs Period Temp Pulse Resp BP Sys/Banuelos Pulse Ox Last 24 Hr 97.9 F-98.1 F 61-78 18-20 141-164/61-76 96 Constitutional: Yes: Anxious Eyes: Yes: Conjunctiva Clear HENT: Yes: Atraumatic Neck: Yes: Supple Cardiovascular: Yes: Regular Rate and Rhythm Respiratory: Yes: CTA Bilaterally Gastrointestinal: Yes: Soft. No: Tenderness Renal/: No: Hematuria Musculoskeletal: No: Joint Stiffness, Joint Swelling Extremities: No: Cold, Cool, Cyanosis, External Rotation Edema: No Integumentary: No: Rash, Venous Stasis Changes Neurological: Yes: WNL, Alert, Oriented. No: Tremors ...Motor Strength: WNL Psychiatric: Yes: WNL, Alert, Oriented. No: Agitated CBCD WBC 4.1 K/mm3 (4.0-10.0) 10/01/18 09:30 RBC 3.45 M/mm3 (3.60-5.2) L 10/01/18 09:30 Hgb 10.8 GM/dL (10.7-15.3) 10/01/18 09:30 Hct 32.0 % (32.4-45.2) L 10/01/18 09:30 MCV 92.9 fl (80-96) 10/01/18 09:30 MCHC 33.6 g/dl (32.0-36.0) 10/01/18 09:30 RDW 15.0 % (11.6-15.6) 10/01/18 09:30 Plt Count 215 K/MM3 (134-434) 10/01/18 09:30 MPV 8.7 fl (7.5-11.1) 10/01/18 09:30 CMP Sodium 140 mmol/L (136-145) 10/01/18 09:30 Potassium 4.4 mmol/L (3.5-5.1) 10/01/18 09:30 Chloride 106 mmol/L (98-107) 10/01/18 09:30 Carbon Dioxide 27 mmol/L (21-32) 10/01/18 09:30 Anion Gap 8 MMOL/L (8-16) 10/01/18 09:30 BUN 22 mg/dL (7-18) H 10/01/18 18:10 Creatinine 3.1 mg/dL (0.55-1.3) H 10/01/18 18:10 Creat Clearance w eGFR 6.14 (>60) 10/01/18 09:30 Random Glucose 65 mg/dL (74-106) L 10/01/18 09:30 Calcium 9.0 mg/dL (8.5-10.1) 10/01/18 09:30 Total Bilirubin 0.2 mg/dL (0.2-1) 09/30/18 07:30 AST 23 U/L (15-37) 09/30/18 07:30 ALT 22 U/L (13-61) 09/30/18 07:30 Alkaline Phosphatase 77 U/L (45-117) 09/30/18 07:30 Total Protein 6.2 g/dl (6.4-8.2) L 09/30/18 07:30 Albumin 2.9 g/dl (3.4-5.0) L 09/30/18 07:30 CARDIAC ENZYMES Creatine Kinase 344 U/L (26-192) H 09/30/18 07:30 Assessment/Plan 83-year-old female with PA MH of hypertension, end-stage renal disease on hemodialysis, NIDDM, chronic diarrhea, frequent falls, who presented to the ER from home status post fall sec to lower extremities weakness. Patient stated she was walking and her legs felt weak so she fell down. Patient also stated that she hit her head. Denied losing consciousness. She statedd that her back pain is along her right side and running down the leg. Denies fevers, chills, shortness of breath, headache, dizziness, nausea, vomiting, diarrhea, frequency , urgency and hematuria. Pt [facility]; missed dialysis for 1 week said she could not arrange transportation b/o financial reasons. Does report back discomfort but comfortable appearing. CT head completed and without acute changes. CT L spine with L4/L5 disc bulge/protrusion with impingement of R L5 root, also with L5/S1 minimal bulge impingement of L5 root. Comfortable in bed, no new complaints, remains stable this AM. No events over the weekend. Planned for rehab placement. Added gabapentin 300 bid to regiment for lumbar radiculopathy, no side effects, some relief. Pain mgmt as able. Physicial therapy as tolerated, fall precautions. Rehab placement
[2018-10-03] MEDS: ASPIRIN COATED 81 MG TABLET.EC PO SCH (09:56)
[2018-10-03] MEDS: CALCIUM ACETATE 667 MG CAPSULE (FP) PO SCH ×3 (09:56→17:39)
[2018-10-03] MEDS: GABAPENTIN 300 MG CAPSULE (FP) PO SCH (09:56)
[2018-10-03] MEDS: LOSARTAN POTASSIUM 50 MG TABLET (FP) PO SCH (09:56)
[2018-10-03] MEDS: FERROUS SO4 325 MG TABLET (FP) PO SCH ×2 (09:57→21:45)
[2018-10-03] MEDS: HEPARIN NA (PORCINE) 5,000 UNITS/ML 1ML VIAL SQ SCH ×2 (09:57→21:45)
[2018-10-03] MEDS: ISOSORBIDE MONONITRATE 30 MG TAB.SR.24H (FP) PO SCH (09:57)
[2018-10-03] MEDS: ALPRAZolam 0.25 MG TABLET PO PRN ×2 (09:58→21:46)
[2018-10-03] MEDS: CHOLESTYRAMINE/ASPARTAME 4 GM PACKET PO SCH ×4 (09:58→21:45)
[2018-10-03] MEDS: NIFEdipine E.R. 90 MG TABLET (FP) PO SCH (09:58)
[2018-10-03] MEDS: NYSTATIN 100000 UNIT/GM TOPICAL OINTMENT 15 GM TUBE TP SCH ×2 (09:59→21:45)
[2018-10-03] MEDS: CALCITRIOL 0.25 MCG CAPSULE (FP) PO SCH (10:00)
--- NOTE | 2018-10-03 12:06 | PN ---
Progress Note (short form) - Note Progress Note: Renal follow up for ESRD on HD Pt seen and examined at the bedside has some diarrhea no sob, cp, abd pain last dialysis was Monday Vital Signs Temperature 97.9 F 10/03/18 09:00 Pulse Rate 65 10/03/18 09:00 Respiratory Rate 20 10/03/18 09:00 Blood Pressure 160/66 10/03/18 09:00 O2 Sat by Pulse Oximetry (%) 95 10/03/18 09:00 Intake & Output 09/30/18 10/01/18 10/02/18 10/03/18 23:59 23:59 23:59 23:59 Intake Total 520 570 700 275 Balance 520 570 700 275 NAD RRR CTA soft NT/ND no LE edema, clubbing or cyanosis No N/V/D CBC, BMP 10/01/18 09:30 10/01/18 18:10 Current Medications Acetaminophen (Tylenol -) 650 mg PO Q6H PRN PRN Reason: PAIN Last Admin: 09/30/18 22:01 Dose: 650 mg Alprazolam (Xanax -) 0.25 mg PO BID PRN PRN Reason: ANXIETY Last Admin: 10/03/18 09:58 Dose: 0.25 mg Amitriptyline HCl (Elavil -) 50 mg PO HS [facility] Last Admin: 10/02/18 21:43 Dose: 50 mg Aspirin (Ecotrin -) 81 mg PO DAILY [facility] Last Admin: 10/03/18 09:56 Dose: 81 mg Atorvastatin Calcium (Lipitor -) 10 mg PO HS [facility] Last Admin: 10/02/18 21:44 Dose: 10 mg Calcitriol (Rocaltrol -) 0.25 mcg PO DAILY [facility] Last Admin: 10/03/18 10:00 Dose: 0.25 mcg Calcium Acetate (Phoslo -) 667 mg PO TIDCM [facility] Last Admin: 10/03/18 09:56 Dose: 667 mg Cholestyramine Resin (Questran Light Packet -) 4 gm PO QID [facility] Last Admin: 10/03/18 09:58 Dose: 4 gm Ferrous Sulfate (Feosol -) 325 mg PO BID [facility] Last Admin: 10/03/18 09:57 Dose: 325 mg Gabapentin (Neurontin -) 300 mg PO DAILY [facility] Last Admin: 10/03/18 09:56 Dose: 300 mg Glipizide (Glucotrol -) 5 mg PO DAILY@0700 [facility] Last Admin: 10/03/18 06:54 Dose: 5 mg Glipizide (Glucotrol Xl -) 2.5 mg PO HS [facility] Last Admin: 10/02/18 21:43 Dose: 2.5 mg Heparin Sodium (Porcine) (Heparin -) 5,000 unit SQ BID [facility] Last Admin: 10/03/18 09:57 Dose: 5,000 unit Isosorbide Mononitrate (Imdur -) 30 mg PO DAILY [facility] Last Admin: 10/03/18 09:57 Dose: 30 mg Labetalol HCl 200 mg/ (Labetalol HCl 100 mg) 300 mg PO TID [facility] Last Admin: 10/03/18 06:54 Dose: 300 mg Loperamide HCl (Imodium -) 2 mg PO Q6H PRN PRN Reason: DIARRHEA Last Admin: 09/29/18 22:43 Dose: 2 mg Losartan Potassium (Cozaar -) 100 mg PO DAILY [facility] Last Admin: 10/03/18 09:56 Dose: 100 mg Miscellaneous (Lidoderm Patch Removal) 1 each MC DAILY@2200 [facility] Last Admin: 10/02/18 21:44 Dose: 1 each Nifedipine (Procardia Xl -) 90 mg PO DAILY [facility] Last Admin: 10/03/18 09:58 Dose: 90 mg Nystatin (Mycostatin Ointment -) 1 applic TP BID [facility] Last Admin: 10/03/18 09:59 Dose: 1 applic Ondansetron HCl (Zofran Odt -) 8 mg SL Q8H PRN PRN Reason: NAUSEA Last Admin: 09/29/18 09:04 Dose: 8 mg 83 year old woman with hx of ESRD on Hd (twice weekly), DM, Hypertension, hyperlipidemia who presented s/p fall with complaints of weak legs. #ESRD on HD with mild uremic symptoms from missed dialysis #LE weakness with lumbar radiculopathy and nerve root impingement #Hypertension #Metabolic acidosis Clinically stable no indication for [employer] today next dialysis planned for Monday Check labs in AM discharge planning as per primary Thank you Quentin Goyal DO
--- NOTE | 2018-10-03 19:31 | CONS ---
DATE OF CONSULTATION: DATE OF DICTATION: 10/03/2018 GASTROINTESTINAL CONSULTATION The patient is an 83-year-old female with a past medical history of hypertension, end-stage renal disease on hemodialysis, [id number] diabetes, chronic diarrhea status post cholecystectomy, ERCP, frequent falls and a history of choledocholithiasis. She presented from home status post a fall and lower extremity weakness. During her course, she stated that she stopped her cholestyramine to see if her symptoms of diarrhea would improve; they did not. She denies any abdominal pain, nausea, vomiting, hematemesis, melena, hematochezia, fevers or chills. PAST MEDICAL AND SURGICAL HISTORY: These are as listed in the HPI. SOCIAL HISTORY: She does not smoke, drink or use drugs. FAMILY HISTORY: Noncontributory. ALLERGIES: IODINE, PENICILLIN, VANCOMYCIN, AZITHROMYCIN. PHYSICAL EXAMINATION: Vital Signs: Temperature 98, pulse 62, blood pressure 160/66, respiratory rate 12, oxygen saturation 95% on room air. General: The patient is in no acute distress. HEENT: Anicteric sclerae. Cardiovascular: S1, S2. Regular rate and rhythm. Lungs: Bilaterally clear to auscultation. Abdomen: Soft and nontender. Extremities: No edema. LABS: White blood cell count was 4, hemoglobin 10.8, hematocrit 32, MCV 92, platelet count 215, sodium 140, potassium 4.4, BUN 47, creatinine 6.5, glucose 65, creatine kinase 344. Liver tests within normal limits. Total bilirubin 0.2. AST 23, ALT 22, alkaline phosphatase 77. The patient has had no abdominal imaging during this hospitalization. IMPRESSION: Chronic diarrhea, most likely secondary to bile salt metabolism status post cholecystectomy in the past. Also to be included would be an infectious etiology. RECOMMENDATIONS: 1. Stool cultures with Clostridium difficile. 2. Low-residue, lactose-free diet. 3. Would continue her cholestyramine, one packet b.i.d. 4. The patient would benefit from an outpatient colonoscopy. DO BENNIE CARVAJAL/[id number]
[2018-10-03] MEDS ORDERED: PT OWN MED DRAWER 7, Y5N ONE (21:19)
[2018-10-03] MEDS: LIDOCAINE PATCH REMOVAL MC SCH (21:45)
[2018-10-03] MEDS: ATORVASTATIN CA 10 MG TABLET (FP) PO SCH (21:45)
[2018-10-03] MEDS: ACETAMINOPHEN 325 MG TABLET (FP) PO PRN (21:46)
[2018-10-03] MEDS: glipiZIDE-XL 2.5 MG TAB.ER.24 PO SCH ×2 (22:00→22:20)
[2018-10-03] MEDS: AMITRIPTYLINE HCL 25 MG TABLET (FP) PO SCH ×2 (22:00→22:20)
[2018-10-04] MEDS ORDERED: LABETALOL HCL 200 MG TABLET (FP) ONE ×3 (05:56→20:56)
[2018-10-04] MEDS ORDERED: LABETALOL HCL 100 MG TABLET (FP) ONE ×3 (05:56→20:56)
[2018-10-04] MEDS: LABETALOL HCL 200 MG, LABETALOL HCL 100 MG PO SCH ×3 (06:14→21:23)
[2018-10-04] MEDS: glipiZIDE 5 MG TABLET (FP) PO SCH (06:15)
[2018-10-04 08:50] LABS: ANION GAP 6 MMOL/L (8-16); BLOOD UREA NITROGEN 34 mg/dL (7-18); CALCIUM 7.8 mg/dL (8.5-10.1); CHLORIDE 105 mmol/L (98-107); CO2 30 mmol/L (21-32); CREATININE 5.1 mg/dL (0.55-1.3); GLUCOSE,RANDOM 100 mg/dL (74-106); POTASSIUM 3.9 mmol/L (3.5-5.1); SODIUM 140 mmol/L (136-145)
--- NOTE | 2018-10-04 08:51 | PN ---
Progress Note, Physician Chief Complaint: in bed awake alert NAD no diarrhea today (pt accepted to take the questran and immodium) but pt wants to see GI dr and to have colonoscopy - called GI who recommended colonoscopy as outpt, d/w pt; also pt requested to go to [facility] but per CM [facility] did not offer her a bed, and [facility] will not [facility] anymore, d/ w pt she said she will pay herself to go out to dialysis twice a week from [facility] (although she did not in the past and this is why she missed dialysis sessions in the past) d/w CM to address with her the above - Current Medication List Current Medications: Active Medications Acetaminophen (Tylenol -) 650 mg PO Q6H PRN PRN Reason: PAIN Last Admin: 10/03/18 21:46 Dose: 650 mg Alprazolam (Xanax -) 0.25 mg PO BID PRN PRN Reason: ANXIETY Last Admin: 10/03/18 21:46 Dose: 0.25 mg Amitriptyline HCl (Elavil -) 50 mg PO [facility] Last Admin: 10/03/18 22:20 Dose: 50 mg Aspirin (Ecotrin -) 81 mg PO DAILY [facility] Last Admin: 10/03/18 09:56 Dose: 81 mg Atorvastatin Calcium (Lipitor -) 10 mg PO [facility] Last Admin: 10/03/18 21:45 Dose: 10 mg Calcitriol (Rocaltrol -) 0.25 mcg PO DAILY [facility] Last Admin: 10/03/18 10:00 Dose: 0.25 mcg Calcium Acetate (Phoslo -) 667 mg PO TIDCM [facility] Last Admin: 10/03/18 17:39 Dose: 667 mg Cholestyramine Resin (Questran Light Packet -) 4 gm PO QID [facility] Last Admin: 10/03/18 21:45 Dose: 4 gm Ferrous Sulfate (Feosol -) 325 mg PO BID [facility] Last Admin: 10/03/18 21:45 Dose: 325 mg Gabapentin (Neurontin -) 300 mg PO DAILY [facility] Last Admin: 10/03/18 09:56 Dose: 300 mg Glipizide (Glucotrol -) 5 mg PO DAILY@0700 [facility] Last Admin: 10/04/18 06:15 Dose: 5 mg Glipizide (Glucotrol Xl -) 2.5 mg PO [facility] Last Admin: 10/03/18 22:00 Dose: Not Given Heparin Sodium (Porcine) (Heparin -) 5,000 unit SQ BID [facility] Last Admin: 10/03/18 21:45 Dose: 5,000 unit Isosorbide Mononitrate (Imdur -) 30 mg PO DAILY [facility] Last Admin: 10/03/18 09:57 Dose: 30 mg Labetalol HCl 200 mg/ (Labetalol HCl 100 mg) 300 mg PO TID [facility] Last Admin: 10/04/18 06:14 Dose: 300 mg Loperamide HCl (Imodium -) 2 mg PO Q6H PRN PRN Reason: DIARRHEA Last Admin: 09/29/18 22:43 Dose: 2 mg Losartan Potassium (Cozaar -) 100 mg PO DAILY [facility] Last Admin: 10/03/18 09:56 Dose: 100 mg Miscellaneous (Lidoderm Patch Removal) 1 each MC DAILY@2200 [facility] Last Admin: 10/03/18 21:45 Dose: 1 each Nifedipine (Procardia Xl -) 90 mg PO DAILY [facility] Last Admin: 10/03/18 09:58 Dose: 90 mg Nystatin (Mycostatin Ointment -) 1 applic TP BID [facility] Last Admin: 10/03/18 21:45 Dose: 1 applic Ondansetron HCl (Zofran Odt -) 8 mg SL Q8H PRN PRN Reason: NAUSEA Last Admin: 09/29/18 09:04 Dose: 8 mg - Objective Vital Signs: Vital Signs Temperature 97.7 F 10/04/18 06:00 Pulse Rate 58 L 10/04/18 06:00 Respiratory Rate 20 10/03/18 18:00 Blood Pressure 132/52 L 10/04/18 06:00 O2 Sat by Pulse Oximetry (%) 94 L 10/04/18 07:48 Constitutional: Yes: No Distress, Calm Eyes: Yes: Conjunctiva Clear HENT: Yes: Atraumatic Neck: Yes: Supple Cardiovascular: Yes: Regular Rate and Rhythm Respiratory: Yes: CTA Bilaterally Gastrointestinal: Yes: Soft. No: Tenderness Genitourinary: No: Hematuria Musculoskeletal: No: Joint Stiffness, Joint Swelling Extremities: No: Cold, Cool, Cyanosis Edema: No Integumentary: No: Pressure Ulcer, Venous Stasis Changes Neurological: Yes: WNL, Alert, Oriented ...Motor Strength: WNL Psychiatric: Yes: WNL, Alert, Oriented. No: Agitated, Suicidal Ideation Labs: CBC, BMP 10/01/18 09:30 10/04/18 07:25 - ....Imaging Other: Report Reviewed Assessment/Plan Patient is an 83-year-old female with PA MH of hypertension, end-stage renal disease on hemodialysis, NIDDM, chronic diarrhea, frequent falls, non compliant with dialysis, status post fall sec to lower extremities weakness. Nerve compression on spine CT unable to walk; lives alone neurology, PT and rehab f/u pain meds prn dialysis per renal DVT pfx falls PFX recurrent diarrhea to f/u with GI outpt will need SNF / NH placement needs dialysis d/w renal dr and family caseworker, challenging DC disposition called [facility] to appeal admission denial d/w pt and staff
[2018-10-04] MEDS: CHOLESTYRAMINE/ASPARTAME 4 GM PACKET PO SCH ×4 (09:18→21:23)
[2018-10-04] MEDS: FERROUS SO4 325 MG TABLET (FP) PO SCH ×2 (09:18→21:23)
[2018-10-04] MEDS: LOSARTAN POTASSIUM 50 MG TABLET (FP) PO SCH (09:18)
[2018-10-04] MEDS: NIFEdipine E.R. 90 MG TABLET (FP) PO SCH (09:18)
[2018-10-04] MEDS: GABAPENTIN 300 MG CAPSULE (FP) PO SCH (09:18)
[2018-10-04] MEDS: ASPIRIN COATED 81 MG TABLET.EC PO SCH (09:19)
[2018-10-04] MEDS: HEPARIN NA (PORCINE) 5,000 UNITS/ML 1ML VIAL SQ SCH ×2 (09:19→21:22)
[2018-10-04] MEDS: CALCIUM ACETATE 667 MG CAPSULE (FP) PO SCH ×3 (09:19→17:20)
[2018-10-04] MEDS: ACETAMINOPHEN 325 MG TABLET (FP) PO PRN ×2 (09:19→21:20)
--- NOTE | 2018-10-04 09:19 | PN ---
Progress Note (short form) - Note Progress Note: Neurology History of Present Illness: 83-year-old female with PA MH of hypertension, end-stage renal disease on hemodialysis, NIDDM, chronic diarrhea, frequent falls, who presented to the ER from home status post fall sec to lower extremities weakness. Patient stated she was walking and her legs felt weak so she fell down. Patient also stated that she hit her head. Denied losing consciousness. She statedd that her back pain is along her right side and running down the leg. Denies fevers, chills, shortness of breath, headache, dizziness, nausea, vomiting, diarrhea, frequency , urgency and hematuria. Pt was recently DCd home from SNF/NH; missed dialysis for 1 week said she could not arrange transportation b/o financial reasons. Does report back discomfort but comfortable appearing. CT head completed and without acute changes. CT L spine with L4/L5 disc bulge/protrusion with impingement of R L5 root, also with L5/S1 minimal bulge impingement of L5 root. Comfortable in bed, no new complaints, remains stable this AM. Knows her and name of president. Now also knows she's at [place], this is likely her baseline. Planned for rehab placement. No acute neurologic events overnight, remains clinically stable. - Allergies Allergies/Adverse Reactions: Allergies Allergy/AdvReac Type Severity Reaction Status Date / Time iodine Allergy Rash Verified 09/25/18 16:17 penicillin V Allergy Verified 09/25/18 16:17 shellfish derived Allergy Rash Verified 09/25/18 16:17 vancomycin Allergy Verified 09/25/18 16:17 azithromycin AdvReac Verified 09/25/18 16:17 Active Medications Acetaminophen (Tylenol -) 650 mg PO Q6H PRN PRN Reason: PAIN Last Admin: 10/03/18 21:46 Dose: 650 mg Alprazolam (Xanax -) 0.25 mg PO BID PRN PRN Reason: ANXIETY Last Admin: 10/03/18 21:46 Dose: 0.25 mg Amitriptyline HCl (Elavil -) 50 mg PO HS [facility] Last Admin: 10/03/18 22:20 Dose: 50 mg Aspirin (Ecotrin -) 81 mg PO DAILY [facility] Last Admin: 10/03/18 09:56 Dose: 81 mg Atorvastatin Calcium (Lipitor -) 10 mg PO HS [facility] Last Admin: 10/03/18 21:45 Dose: 10 mg Calcitriol (Rocaltrol -) 0.25 mcg PO DAILY [facility] Last Admin: 10/03/18 10:00 Dose: 0.25 mcg Calcium Acetate (Phoslo -) 667 mg PO TIDCM [facility] Last Admin: 10/03/18 17:39 Dose: 667 mg Cholestyramine Resin (Questran Light Packet -) 4 gm PO QID [facility] Last Admin: 10/03/18 21:45 Dose: 4 gm Ferrous Sulfate (Feosol -) 325 mg PO BID [facility] Last Admin: 10/03/18 21:45 Dose: 325 mg Gabapentin (Neurontin -) 300 mg PO DAILY [facility] Last Admin: 10/03/18 09:56 Dose: 300 mg Glipizide (Glucotrol -) 5 mg PO DAILY@0700 [facility] Last Admin: 10/04/18 06:15 Dose: 5 mg Glipizide (Glucotrol Xl -) 2.5 mg PO HS [facility] Last Admin: 10/03/18 22:00 Dose: Not Given Heparin Sodium (Porcine) (Heparin -) 5,000 unit SQ BID [facility] Last Admin: 10/03/18 21:45 Dose: 5,000 unit Isosorbide Mononitrate (Imdur -) 30 mg PO DAILY [facility] Last Admin: 10/03/18 09:57 Dose: 30 mg Labetalol HCl 200 mg/ (Labetalol HCl 100 mg) 300 mg PO TID [facility] Last Admin: 10/04/18 06:14 Dose: 300 mg Loperamide HCl (Imodium -) 2 mg PO Q6H PRN PRN Reason: DIARRHEA Last Admin: 09/29/18 22:43 Dose: 2 mg Losartan Potassium (Cozaar -) 100 mg PO DAILY [facility] Last Admin: 10/03/18 09:56 Dose: 100 mg Miscellaneous (Lidoderm Patch Removal) 1 each MC DAILY@2200 [facility] Last Admin: 10/03/18 21:45 Dose: 1 each Nifedipine (Procardia Xl -) 90 mg PO DAILY [facility] Last Admin: 10/03/18 09:58 Dose: 90 mg Nystatin (Mycostatin Ointment -) 1 applic TP BID [facility] Last Admin: 10/03/18 21:45 Dose: 1 applic Ondansetron HCl (Zofran Odt -) 8 mg SL Q8H PRN PRN Reason: NAUSEA Last Admin: 09/29/18 09:04 Dose: 8 mg Physical Examination Vital Signs Period Temp Pulse Resp BP Sys/Banuelos Pulse Ox Last 24 Hr 97.7 F-98.2 F 58-61 20 111-132/46-52 94-97 Constitutional: Yes: Anxious Eyes: Yes: Conjunctiva Clear HENT: Yes: Atraumatic Neck: Yes: Supple Cardiovascular: Yes: Regular Rate and Rhythm Respiratory: Yes: CTA Bilaterally Gastrointestinal: Yes: Soft. No: Tenderness Renal/: No: Hematuria Musculoskeletal: No: Joint Stiffness, Joint Swelling Extremities: No: Cold, Cool, Cyanosis, External Rotation Edema: No Integumentary: No: Rash, Venous Stasis Changes Neurological: Yes: WNL, Alert, Oriented. No: Tremors ...Motor Strength: WNL Psychiatric: Yes: WNL, Alert, Oriented. No: Agitated CBCD WBC 4.1 K/mm3 (4.0-10.0) 10/01/18 09:30 RBC 3.45 M/mm3 (3.60-5.2) L 10/01/18 09:30 Hgb 10.8 GM/dL (10.7-15.3) 10/01/18 09:30 Hct 32.0 % (32.4-45.2) L 10/01/18 09:30 MCV 92.9 fl (80-96) 10/01/18 09:30 MCHC 33.6 g/dl (32.0-36.0) 10/01/18 09:30 RDW 15.0 % (11.6-15.6) 10/01/18 09:30 Plt Count 215 K/MM3 (134-434) 10/01/18 09:30 MPV 8.7 fl (7.5-11.1) 10/01/18 09:30 CMP Sodium 140 mmol/L (136-145) 10/04/18 07:25 Potassium 3.9 mmol/L (3.5-5.1) 10/04/18 07:25 Chloride 105 mmol/L (98-107) 10/04/18 07:25 Carbon Dioxide 30 mmol/L (21-32) 10/04/18 07:25 Anion Gap 6 MMOL/L (8-16) L 10/04/18 07:25 BUN 34 mg/dL (7-18) H 10/04/18 07:25 Creatinine 5.1 mg/dL (0.55-1.3) H 10/04/18 07:25 Creat Clearance w eGFR 8.12 (>60) 10/04/18 07:25 Random Glucose 100 mg/dL (74-106) 10/04/18 07:25 Calcium 7.8 mg/dL (8.5-10.1) L 10/04/18 07:25 Total Bilirubin 0.2 mg/dL (0.2-1) 09/30/18 07:30 AST 23 U/L (15-37) 09/30/18 07:30 ALT 22 U/L (13-61) 09/30/18 07:30 Alkaline Phosphatase 77 U/L (45-117) 09/30/18 07:30 Total Protein 6.2 g/dl (6.4-8.2) L 09/30/18 07:30 Albumin 2.9 g/dl (3.4-5.0) L 09/30/18 07:30 CARDIAC ENZYMES Creatine Kinase 344 U/L (26-192) H 09/30/18 07:30 Assessment/Plan 83-year-old female with PA MH of hypertension, end-stage renal disease on hemodialysis, NIDDM, chronic diarrhea, frequent falls, who presented to the ER from home status post fall sec to lower extremities weakness. Patient stated she was walking and her legs felt weak so she fell down. Patient also stated that she hit her head. Denied losing consciousness. She statedd that her back pain is along her right side and running down the leg. Denies fevers, chills, shortness of breath, headache, dizziness, nausea, vomiting, diarrhea, frequency , urgency and hematuria. Pt was recently DCd home from SNF/NH; missed dialysis for 1 week said she could not arrange transportation b/o financial reasons. Does report back discomfort but comfortable appearing. CT head completed and without acute changes. CT L spine with L4/L5 disc bulge/protrusion with impingement of R L5 root, also with L5/S1 minimal bulge impingement of L5 root. Comfortable in bed, no new complaints, remains stable this AM. No events over the weekend. Planned for rehab placement. Added gabapentin 300 bid to regiment for lumbar radiculopathy, no side effects, some relief. Pain mgmt as able. Physicial therapy as tolerated, fall precautions. Rehab placement, no further recommendations at this time.
[2018-10-04] MEDS: CALCITRIOL 0.25 MCG CAPSULE (FP) PO SCH (09:20)
[2018-10-04] MEDS: ISOSORBIDE MONONITRATE 30 MG TAB.SR.24H (FP) PO SCH (09:20)
[2018-10-04] MEDS: NYSTATIN 100000 UNIT/GM TOPICAL OINTMENT 15 GM TUBE TP SCH ×2 (09:20→21:31)
[2018-10-04] MEDS: ALPRAZolam 0.25 MG TABLET PO PRN ×2 (09:21→21:25)
[2018-10-04] MEDS: ATORVASTATIN CA 10 MG TABLET (FP) PO SCH (21:22)
[2018-10-04] MEDS: AMITRIPTYLINE HCL 25 MG TABLET (FP) PO SCH (21:23)
[2018-10-04] MEDS: glipiZIDE-XL 2.5 MG TAB.ER.24 PO SCH (21:24)
[2018-10-04] MEDS: LIDOCAINE PATCH REMOVAL MC SCH (21:35)
[2018-10-05 05:30] VITALS: TEMP 98.1
[2018-10-05] MEDS ORDERED: LABETALOL HCL 100 MG TABLET (FP) ONE ×2 (06:13→15:10)
[2018-10-05] MEDS ORDERED: LABETALOL HCL 200 MG TABLET (FP) ONE ×2 (06:14→15:10)
[2018-10-05] MEDS: glipiZIDE 5 MG TABLET (FP) PO SCH (06:29)
[2018-10-05] MEDS: LABETALOL HCL 200 MG, LABETALOL HCL 100 MG PO SCH ×3 (06:29→15:26)
--- NOTE | 2018-10-05 08:30 | PN ---
Progress Note, Physician Chief Complaint: awake alert NAD VSS afebrile in bed NAD no new c/o awaiting insurance approval for SNF also I was informed by CM that the admission was denied by pt's insurance; I called to appeal it and spoke with dr Oviedo gave update about pt's condition treatment and findings but she still did not approve it; dr Oviedo states it should been OBS d/w CM and Areli iGlliam d/w pt DC instructions - Current Medication List Current Medications: Active Medications Acetaminophen (Tylenol -) 650 mg PO Q6H PRN PRN Reason: PAIN Last Admin: 10/04/18 21:20 Dose: 650 mg Alprazolam (Xanax -) 0.25 mg PO BID PRN PRN Reason: ANXIETY Last Admin: 10/04/18 21:25 Dose: 0.25 mg Amitriptyline HCl (Elavil -) 50 mg PO HS [facility] Last Admin: 10/04/18 21:23 Dose: 50 mg Aspirin (Ecotrin -) 81 mg PO DAILY [facility] Last Admin: 10/04/18 09:19 Dose: 81 mg Atorvastatin Calcium (Lipitor -) 10 mg PO HS [facility] Last Admin: 10/04/18 21:22 Dose: 10 mg Calcitriol (Rocaltrol -) 0.25 mcg PO DAILY [facility] Last Admin: 10/04/18 09:20 Dose: 0.25 mcg Calcium Acetate (Phoslo -) 667 mg PO TIDCM [facility] Last Admin: 10/04/18 17:20 Dose: 667 mg Cholestyramine Resin (Questran Light Packet -) 4 gm PO QID [facility] Last Admin: 10/04/18 21:23 Dose: 4 gm Ferrous Sulfate (Feosol -) 325 mg PO BID [facility] Last Admin: 10/04/18 21:23 Dose: 325 mg Gabapentin (Neurontin -) 300 mg PO DAILY [facility] Last Admin: 10/04/18 09:18 Dose: 300 mg Glipizide (Glucotrol -) 5 mg PO DAILY@0700 [facility] Last Admin: 10/05/18 06:29 Dose: 5 mg Glipizide (Glucotrol Xl -) 2.5 mg PO HS [facility] Last Admin: 10/04/18 21:24 Dose: 2.5 mg Heparin Sodium (Porcine) (Heparin -) 5,000 unit SQ BID [facility] Last Admin: 10/04/18 21:22 Dose: 5,000 unit Isosorbide Mononitrate (Imdur -) 30 mg PO DAILY [facility] Last Admin: 10/04/18 09:20 Dose: 30 mg Labetalol HCl 200 mg/ (Labetalol HCl 100 mg) 300 mg PO TID [facility] Last Admin: 10/05/18 06:29 Dose: 300 mg Loperamide HCl (Imodium -) 2 mg PO Q6H PRN PRN Reason: DIARRHEA Last Admin: 09/29/18 22:43 Dose: 2 mg Losartan Potassium (Cozaar -) 100 mg PO DAILY [facility] Last Admin: 10/04/18 09:18 Dose: 100 mg Miscellaneous (Lidoderm Patch Removal) 1 each MC DAILY@2200 [facility] Last Admin: 10/04/18 21:35 Dose: 1 each Nifedipine (Procardia Xl -) 90 mg PO DAILY [facility] Last Admin: 10/04/18 09:18 Dose: 90 mg Nystatin (Mycostatin Ointment -) 1 applic TP BID [facility] Last Admin: 10/04/18 21:31 Dose: 1 applic Ondansetron HCl (Zofran Odt -) 8 mg SL Q8H PRN PRN Reason: NAUSEA Last Admin: 09/29/18 09:04 Dose: 8 mg - Objective Vital Signs: Vital Signs Temperature 98.1 F 10/05/18 05:29 Pulse Rate 64 10/05/18 05:29 Respiratory Rate 20 10/05/18 05:29 Blood Pressure 150/77 10/05/18 05:29 O2 Sat by Pulse Oximetry (%) 95 10/04/18 21:00 Constitutional: Yes: No Distress, Calm Eyes: Yes: Conjunctiva Clear HENT: Yes: Atraumatic Neck: Yes: Supple Cardiovascular: Yes: Regular Rate and Rhythm Respiratory: Yes: CTA Bilaterally Gastrointestinal: Yes: Soft. No: Tenderness Genitourinary: No: Hematuria Musculoskeletal: No: Joint Stiffness, Joint Swelling Extremities: No: Cold, Cool, Cyanosis Edema: No Integumentary: No: Rash, Venous Stasis Changes Neurological: Yes: WNL, Alert, Oriented ...Motor Strength: WNL Psychiatric: Yes: WNL, Alert, Oriented. No: Agitated, Suicidal Ideation Labs: CBC, BMP 10/01/18 09:30 10/04/18 07:25 - ....Imaging Other: Report Reviewed Assessment/Plan Patient is an 83-year-old female with PA MH of hypertension, end-stage renal disease on hemodialysis, NIDDM, chronic diarrhea, frequent falls, non compliant with dialysis, status post fall sec to lower extremities weakness. Nerve compression on spine CT unable to walk; lives alone neurology, PT and rehab f/u pain meds prn dialysis per renal DVT pfx falls PFX recurrent diarrhea to f/u with GI outpt will need SNF / NH placement needs dialysis d/w renal dr and correctional case manager called [facility] to appeal admission denial see DC summary 10/02 d/w pt and staff
--- NOTE | 2018-10-05 09:27 | PN ---
Progress Note (short form) - Note Progress Note: Neurology History of Present Illness: 83-year-old female with PA MH of hypertension, end-stage renal disease on hemodialysis, NIDDM, chronic diarrhea, frequent falls, who presented to the ER from home status post fall sec to lower extremities weakness. Patient stated she was walking and her legs felt weak so she fell down. Patient also stated that she hit her head. Denied losing consciousness. She statedd that her back pain is along her right side and running down the leg. Denies fevers, chills, shortness of breath, headache, dizziness, nausea, vomiting, diarrhea, frequency , urgency and hematuria. Pt was recently DCd home from SNF/[facility]; missed dialysis for 1 week said she could not arrange transportation b/o financial reasons. Does report back discomfort but comfortable appearing. CT head completed and without acute changes. CT L spine with L4/L5 disc bulge/protrusion with impingement of R L5 root, also with L5/S1 minimal bulge impingement of L5 root. Comfortable in bed, no new complaints, remains stable this AM. Knows her and name of president. Now also knows she's at [place], remains at her baseline. Planned for placement. No acute neurologic events overnight, remains clinically stable. - Allergies Allergies/Adverse Reactions: Allergies Allergy/AdvReac Type Severity Reaction Status Date / Time iodine Allergy Rash Verified 09/25/18 16:17 penicillin V Allergy Verified 09/25/18 16:17 shellfish derived Allergy Rash Verified 09/25/18 16:17 vancomycin Allergy Verified 09/25/18 16:17 azithromycin AdvReac Verified 09/25/18 16:17 Active Medications Acetaminophen (Tylenol -) 650 mg PO Q6H PRN PRN Reason: PAIN Last Admin: 10/04/18 21:20 Dose: 650 mg Alprazolam (Xanax -) 0.25 mg PO BID PRN PRN Reason: ANXIETY Last Admin: 10/04/18 21:25 Dose: 0.25 mg Amitriptyline HCl (Elavil -) 50 mg PO HS [facility] Last Admin: 10/04/18 21:23 Dose: 50 mg Aspirin (Ecotrin -) 81 mg PO DAILY [facility] Last Admin: 10/04/18 09:19 Dose: 81 mg Atorvastatin Calcium (Lipitor -) 10 mg PO HS [facility] Last Admin: 10/04/18 21:22 Dose: 10 mg Calcitriol (Rocaltrol -) 0.25 mcg PO DAILY [facility] Last Admin: 10/04/18 09:20 Dose: 0.25 mcg Calcium Acetate (Phoslo -) 667 mg PO TIDCM [facility] Last Admin: 10/04/18 17:20 Dose: 667 mg Cholestyramine Resin (Questran Light Packet -) 4 gm PO QID [facility] Last Admin: 10/04/18 21:23 Dose: 4 gm Ferrous Sulfate (Feosol -) 325 mg PO BID [facility] Last Admin: 10/04/18 21:23 Dose: 325 mg Gabapentin (Neurontin -) 300 mg PO DAILY [facility] Last Admin: 10/04/18 09:18 Dose: 300 mg Glipizide (Glucotrol -) 5 mg PO DAILY@0700 [facility] Last Admin: 10/05/18 06:29 Dose: 5 mg Glipizide (Glucotrol Xl -) 2.5 mg PO HS [facility] Last Admin: 10/04/18 21:24 Dose: 2.5 mg Heparin Sodium (Porcine) (Heparin -) 5,000 unit SQ BID [facility] Last Admin: 10/04/18 21:22 Dose: 5,000 unit Isosorbide Mononitrate (Imdur -) 30 mg PO DAILY [facility] Last Admin: 10/04/18 09:20 Dose: 30 mg Labetalol HCl 200 mg/ (Labetalol HCl 100 mg) 300 mg PO TID [facility] Last Admin: 10/05/18 06:29 Dose: 300 mg Loperamide HCl (Imodium -) 2 mg PO Q6H PRN PRN Reason: DIARRHEA Last Admin: 09/29/18 22:43 Dose: 2 mg Losartan Potassium (Cozaar -) 100 mg PO DAILY [facility] Last Admin: 10/04/18 09:18 Dose: 100 mg Miscellaneous (Lidoderm Patch Removal) 1 each MC DAILY@2200 [facility] Last Admin: 10/04/18 21:35 Dose: 1 each Nifedipine (Procardia Xl -) 90 mg PO DAILY [facility] Last Admin: 10/04/18 09:18 Dose: 90 mg Nystatin (Mycostatin Ointment -) 1 applic TP BID [facility] Last Admin: 10/04/18 21:31 Dose: 1 applic Ondansetron HCl (Zofran Odt -) 8 mg SL Q8H PRN PRN Reason: NAUSEA Last Admin: 09/29/18 09:04 Dose: 8 mg Physical Examination Vital Signs Temperature 98.1 F 10/05/18 05:29 Pulse Rate 64 10/05/18 05:29 Respiratory Rate 20 10/05/18 05:29 Blood Pressure 150/77 10/05/18 05:29 O2 Sat by Pulse Oximetry (%) 95 10/04/18 21:00 Constitutional: Yes: Anxious Eyes: Yes: Conjunctiva Clear HENT: Yes: Atraumatic Neck: Yes: Supple Cardiovascular: Yes: Regular Rate and Rhythm Respiratory: Yes: CTA Bilaterally Gastrointestinal: Yes: Soft. No: Tenderness Renal/: No: Hematuria Musculoskeletal: No: Joint Stiffness, Joint Swelling Extremities: No: Cold, Cool, Cyanosis, External Rotation Edema: No Integumentary: No: Rash, Venous Stasis Changes Neurological: Yes: WNL, Alert, Oriented. No: Tremors ...Motor Strength: WNL Psychiatric: Yes: WNL, Alert, Oriented. No: Agitated CBCD WBC 4.1 K/mm3 (4.0-10.0) 10/01/18 09:30 RBC 3.45 M/mm3 (3.60-5.2) L 10/01/18 09:30 Hgb 10.8 GM/dL (10.7-15.3) 10/01/18 09:30 Hct 32.0 % (32.4-45.2) L 10/01/18 09:30 MCV 92.9 fl (80-96) 10/01/18 09:30 MCHC 33.6 g/dl (32.0-36.0) 10/01/18 09:30 RDW 15.0 % (11.6-15.6) 10/01/18 09:30 Plt Count 215 K/MM3 (134-434) 10/01/18 09:30 MPV 8.7 fl (7.5-11.1) 10/01/18 09:30 CMP Sodium 140 mmol/L (136-145) 10/04/18 07:25 Potassium 3.9 mmol/L (3.5-5.1) 10/04/18 07:25 Chloride 105 mmol/L (98-107) 10/04/18 07:25 Carbon Dioxide 30 mmol/L (21-32) 10/04/18 07:25 Anion Gap 6 MMOL/L (8-16) L 10/04/18 07:25 BUN 34 mg/dL (7-18) H 10/04/18 07:25 Creatinine 5.1 mg/dL (0.55-1.3) H 10/04/18 07:25 Creat Clearance w eGFR 8.12 (>60) 10/04/18 07:25 Random Glucose 100 mg/dL (74-106) 10/04/18 07:25 Calcium 7.8 mg/dL (8.5-10.1) L 10/04/18 07:25 Total Bilirubin 0.2 mg/dL (0.2-1) 09/30/18 07:30 AST 23 U/L (15-37) 09/30/18 07:30 ALT 22 U/L (13-61) 09/30/18 07:30 Alkaline Phosphatase 77 U/L (45-117) 09/30/18 07:30 Total Protein 6.2 g/dl (6.4-8.2) L 09/30/18 07:30 Albumin 2.9 g/dl (3.4-5.0) L 09/30/18 07:30 CARDIAC ENZYMES Creatine Kinase 344 U/L (26-192) H 09/30/18 07:30 Assessment/Plan 83-year-old female with PA MH of hypertension, end-stage renal disease on hemodialysis, NIDDM, chronic diarrhea, frequent falls, who presented to the ER from home status post fall sec to lower extremities weakness. Patient stated she was walking and her legs felt weak so she fell down. Patient also stated that she hit her head. Denied losing consciousness. She statedd that her back pain is along her right side and running down the leg. Denies fevers, chills, shortness of breath, headache, dizziness, nausea, vomiting, diarrhea, frequency , urgency and hematuria. Pt was recently DCd home from [place]; missed dialysis for 1 week said she could not arrange transportation b/o financial reasons. Does report back discomfort but comfortable appearing. CT head completed and without acute changes. CT L spine with L4/L5 disc bulge/protrusion with impingement of R L5 root, also with L5/S1 minimal bulge impingement of L5 root. Comfortable in bed, no new complaints, remains stable this AM. No events over the weekend. Planned for rehab placement. Added gabapentin 300 bid to regiment for lumbar radiculopathy, no side effects, can be continued once a day. Placement per primary/returned case inspector.
[2018-10-05] MEDS: LOSARTAN POTASSIUM 50 MG TABLET (FP) PO SCH (09:46)
[2018-10-05] MEDS: ASPIRIN COATED 81 MG TABLET.EC PO SCH (09:46)
[2018-10-05] MEDS: CALCIUM ACETATE 667 MG CAPSULE (FP) PO SCH ×2 (09:46→12:00)
[2018-10-05] MEDS: FERROUS SO4 325 MG TABLET (FP) PO SCH (09:46)
[2018-10-05] MEDS: ISOSORBIDE MONONITRATE 30 MG TAB.SR.24H (FP) PO SCH (09:47)
[2018-10-05] MEDS: HEPARIN NA (PORCINE) 5,000 UNITS/ML 1ML VIAL SQ SCH (09:47)
[2018-10-05] MEDS: GABAPENTIN 300 MG CAPSULE (FP) PO SCH (09:47)
[2018-10-05] MEDS: NIFEdipine E.R. 90 MG TABLET (FP) PO SCH (09:47)
[2018-10-05] MEDS: CALCITRIOL 0.25 MCG CAPSULE (FP) PO SCH (09:49)
[2018-10-05] MEDS: CHOLESTYRAMINE/ASPARTAME 4 GM PACKET PO SCH ×2 (09:49→15:25)
[2018-10-05] MEDS ORDERED: SODIUM CHLORIDE 250 ML IV PRN (10:20)
[2018-10-05] MEDS: HEPARIN NA (PORCINE) 5,000 UNITS/ML 1ML VIAL IVPUSH SCH ×3 (10:30→12:30)
[2018-10-05] MEDS ORDERED: HEPARIN NA (PORCINE) 5,000 UNITS/ML 1ML VIAL IVPUSH ONE (11:00)
[2018-10-05 11:14] LABS: HEMATOCRIT 29.5 % (32.4-45.2); HEMOGLOBIN 9.6 GM/dL (10.7-15.3); MCH 30.4 pg (25.7-33.7); MCHC 32.6 g/dl (32.0-36.0); MEAN CELL VOLUME 93.4 fl (80-96); PLATELET COUNT 220 K/MM3 (134-434); RBC 3.16 M/mm3 (3.60-5.2); WHITE BLOOD COUNT 4.9 K/mm3 (4.0-10.0)
[2018-10-05 11:35] LABS: ANION GAP 7 MMOL/L (8-16); BLOOD UREA NITROGEN 43 mg/dL (7-18); CALCIUM 8.2 mg/dL (8.5-10.1); CHLORIDE 106 mmol/L (98-107); CO2 25 mmol/L (21-32); CREATININE 5.7 mg/dL (0.55-1.3); GLUCOSE,RANDOM 112 mg/dL (74-106); POTASSIUM 4.6 mmol/L (3.5-5.1); SODIUM 138 mmol/L (136-145)
[2018-10-05 13:49] VITALS: BP 131/72
--- NOTE | 2018-10-05 13:51 | PN ---
Progress Note (short form) - Note Progress Note: Renal follow up for ESRD on HD Pt seen and examined duriing dialysis feels weak BP stable, catheter with good flow no sob, cp, abd pain UF goal 1L Vital Signs Temperature 98.1 F 10/05/18 10:20 Pulse Rate 66 10/05/18 13:48 Respiratory Rate 18 10/05/18 13:48 Blood Pressure 131/72 10/05/18 13:48 O2 Sat by Pulse Oximetry (%) 95 10/04/18 21:00 Intake & Output 10/02/18 10/03/18 10/04/18 10/05/18 23:59 23:59 23:59 23:59 Intake Total 700 525 335 415 Balance 700 525 335 415 NAD RRR CTA soft NT/ND no LE edema, clubbing or cyanosis No N/V/D CBC, BMP 10/05/18 10:25 10/05/18 10:25 Current Medications Acetaminophen (Tylenol -) 650 mg PO Q6H PRN PRN Reason: PAIN Last Admin: 10/04/18 21:20 Dose: 650 mg Alprazolam (Xanax -) 0.25 mg PO BID PRN PRN Reason: ANXIETY Last Admin: 10/04/18 21:25 Dose: 0.25 mg Amitriptyline HCl (Elavil -) 50 mg PO HS [facility] Last Admin: 10/04/18 21:23 Dose: 50 mg Aspirin (Ecotrin -) 81 mg PO DAILY [facility] Last Admin: 10/05/18 09:46 Dose: Not Given Atorvastatin Calcium (Lipitor -) 10 mg PO HS [facility] Last Admin: 10/04/18 21:22 Dose: 10 mg Calcitriol (Rocaltrol -) 0.25 mcg PO DAILY [facility] Last Admin: 10/05/18 09:49 Dose: Not Given Calcium Acetate (Phoslo -) 667 mg PO TIDCM [facility] Last Admin: 10/05/18 09:46 Dose: Not Given Cholestyramine Resin (Questran Light Packet -) 4 gm PO QID [facility] Last Admin: 10/05/18 09:49 Dose: Not Given Ferrous Sulfate (Feosol -) 325 mg PO BID [facility] Last Admin: 10/05/18 09:46 Dose: Not Given Gabapentin (Neurontin -) 300 mg PO DAILY [facility] Last Admin: 10/05/18 09:47 Dose: Not Given Glipizide (Glucotrol -) 5 mg PO DAILY@0700 [facility] Last Admin: 10/05/18 06:29 Dose: 5 mg Glipizide (Glucotrol Xl -) 2.5 mg PO HS [facility] Last Admin: 10/04/18 21:24 Dose: 2.5 mg Heparin Sodium (Porcine) (Heparin -) 5,000 unit SQ BID [facility] Last Admin: 10/05/18 09:47 Dose: Not Given Sodium Chloride (Normal Saline -) 250 mls @ 3,000 mls/hr IV PRN PRN PRN Reason: Hypotension during Dialysis Stop: 10/06/18 10:20 Isosorbide Mononitrate (Imdur -) 30 mg PO DAILY [facility] Last Admin: 10/05/18 09:47 Dose: Not Given Labetalol HCl 200 mg/ (Labetalol HCl 100 mg) 300 mg PO TID [facility] Last Admin: 10/05/18 06:29 Dose: 300 mg Loperamide HCl (Imodium -) 2 mg PO Q6H PRN PRN Reason: DIARRHEA Last Admin: 09/29/18 22:43 Dose: 2 mg Losartan Potassium (Cozaar -) 100 mg PO DAILY [facility] Last Admin: 10/05/18 09:46 Dose: Not Given Miscellaneous (Lidoderm Patch Removal) 1 each MC DAILY@2200 [facility] Last Admin: 10/04/18 21:35 Dose: 1 each Nifedipine (Procardia Xl -) 90 mg PO DAILY [facility] Last Admin: 10/05/18 09:47 Dose: Not Given Nystatin (Mycostatin Ointment -) 1 applic TP BID [facility] Last Admin: 10/04/18 21:31 Dose: 1 applic Ondansetron HCl (Zofran Odt -) 8 mg SL Q8H PRN PRN Reason: NAUSEA Last Admin: 09/29/18 09:04 Dose: 8 mg 83 year old woman with hx of ESRD on Hd (twice weekly), DM, Hypertension, hyperlipidemia who presented s/p fall with complaints of weak legs. #ESRD on HD with mild uremic symptoms from missed dialysis #LE weakness with lumbar radiculopathy and nerve root impingement #Hypertension #Metabolic acidosis Tolerating dialysis we can continue twice weekly dialysis as an outpatient discharge planning as per primary awaiting placement Thank you Quentin Goyal DO
[2018-10-05 15:48] VITALS: PULSE 65
== END 2018-10-05 18:43 | DRG 551 ==
LOC: JER 10:25 → JERBED 17:03 → J6S 09-28 15:49
PROVIDERS: ADMIT Internal Medicine; ATTEND Internal Medicine
PROC: 5A1D70Z Performance of Urinary Filtration, Intermittent, Less than 6 Hours Per Day (ICD-10-PCS; principal; 2018-09-27)
DX: M51.16 Intervertebral disc disorders with radiculopathy, lumbar region (principal); N18.6 End stage renal disease; E87.2 Acidosis; I12.0 Hypertensive chronic kidney disease with stage 5 chronic kidney disease or end stage renal disease; E11.22 Type 2 diabetes mellitus with diabetic chronic kidney disease; Z99.2 Dependence on renal dialysis; R29.6 Repeated falls; Z88.0 Allergy status to penicillin; Z79.84 Long term (current) use of oral hypoglycemic drugs; Z91.15 Patient's noncompliance with renal dialysis; R19.7 Diarrhea, unspecified
CPT/HCPCS: 36415; 70450-TC; 72131-TC; 80048; 80053; 80061; 82550; 82553; 82565; 82607; 82962; 83036; 83721; 83735; 84100; 84443; 84520; 85025; 85027; 86704; 86706; 86708; 86803; 87081; 87340; 97116-GP; 97161-GP; 99285-25; J1644; Q0162

== ENCOUNTER 2019-01-05 20:02 | Inpatient (IN) | payer OTHER | END 2019-01-17 15:42 | disposition home health service (06) | LOC: JERBED 22:49 → JER 20:02 → JICU 01-06 02:08 → J4S 01-06 10:46 ==

== ENCOUNTER 2019-02-19 11:40 | Inpatient (IN) | payer OTHER ==
[2019-02-19 11:55] VITALS: BMI 19.3
--- NOTE | 2019-02-19 12:02 | PDOC ---
History of Present Illness <Young Quintanilla - Last Filed: 02/19/19 18:02> - General History Source: Patient Exam Limitations: No Limitations - History of Present Illness Initial Comments: 02/19/19 12:26 83 yo F pmh HTN, HLD, NIDDM, ESRD on HD (//), and chronic diarrhea p/w b/ l tingling of b/l hands in the fingers and palm area. States tingling has been on and off for the past few weeks lasting seconds. Pt woke up today at 6am with the tingling, has been constant. She notes tingling is more pronounced in the Right hand over left, specifically in the thumb, first, and second digits. Denies h/o CVA/TIA, thyroid dz, abdominal pain, changes in balance, and weakness. Last HD on Monday02/16/19, scheduled for HD today at 10:45am but canceled d/ t medical concern above. <Sukhi Galaviz - Last Filed: 02/20/19 00:13> - General Chief Complaint: CVA/TIA Stated Complaint: NUMBNESS IN HANDS Time Seen by Provider: 02/19/19 11:59 Past History <Young Quintanilla - Last Filed: 02/19/19 18:02> - Past Medical History Anemia: Yes Asthma: Yes Cancer: No Cardiac Disorders: Yes (PAD,CAD) CVA: No COPD: No CHF: No DVT: No Dementia: No Diabetes: Yes Dialysis: Yes (,,) GI Disorders: (chronic diarrhea) Disorders: No HTN: Yes Hypercholesterolemia: Yes Liver Disease: No Seizures: No Thyroid Disease: No - Surgical History Abdominal Surgery: No Appendectomy: No Cardiac Surgery: Yes (FEMORAL BYPASS) Cholecystectomy: Yes Lung Surgery: No Neurologic Surgery: No Orthopedic Surgery: Yes (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) - Family Disease History Family Disease History: CA: Father (lung), Brother, Sister - Immunization History Immunization Up to Date: Yes - Suicide/Smoking/Psychosocial Hx Smoking Status: Yes Smoking History: Current every day smoker Have you smoked in the past 12 months: Yes Number of Cigarettes Smoked Daily: 20 If you are a former smoker, when did you quit?: 08/10/2012 Cigars Per Day: 30 Information on smoking cessation initiated: No 'Breaking Loose' booklet given: 08/28/18 Hx Alcohol Use: No Drug/Substance Use Hx: No Substance Use Type: None Hx Substance Use Treatment: No <Sukhi Galaviz - Last Filed: 02/20/19 00:13> - Past Medical History Allergies/Adverse Reactions: Allergies Allergy/AdvReac Type Severity Reaction Status Date / Time iodine Allergy Rash Verified 02/19/19 11:55 penicillin V Allergy Verified 02/19/19 11:55 shellfish derived Allergy Rash Verified 02/19/19 11:55 vancomycin Allergy Verified 02/19/19 11:55 azithromycin AdvReac Verified 02/19/19 11:55 Home Medications: Ambulatory Orders Alprazolam [Xanax] 0.25 mg PO BID PRN 02/19/19 Amitriptyline HCl [Elavil -] 25 mg PO DAILY 02/19/19 Aspirin [ASA -] 81 mg PO DAILY 02/19/19 Atorvastatin Ca [Lipitor] 10 mg PO HS 02/19/19 Atorvastatin Ca [Lipitor] 10 mg PO HS 02/19/19 Calcitriol [Rocaltrol -] 0.25 mcg PO DAILY 02/19/19 Calcium Acetate 667 mg PO TID 02/19/19 Carvedilol [Coreg -] 6.25 mg PO BID 02/19/19 Cholestyramine [Cholestyramine Resin] 1 gm PO DAILY 02/19/19 Ferrous Gluconate [Fergon -] 324 mg PO DAILY 02/19/19 Losartan Potassium [Cozaar] 100 mg PO DAILY 02/19/19 Nifedipine [Procardia Xl] 90 mg PO DAILY 02/19/19 Review of Systems - Review of Systems Able to Perform ROS?: Yes Is the patient limited Mongolian proficient: No Constitutional: No: Symptoms Reported, See HPI, Chills, Diaphoresis, Fever, Loss of Appetite, Malaise, Night Sweats, Weakness, Weight Stable, Unintentional Wgt. Loss, Unexplained wgt Loss, Other HEENTM: No: Symptoms Reported, See HPI, Eye Pain, Blurred Vision, Tearing, Recent change in vision, Double Vision, Cataracts, Ear Pain, Ocular Prothesis, Ear Discharge, Nose Pain, Nose Congestion, Tinnitus, Nose Bleeding, Hearing Loss , Throat Pain, Throat Swelling, Mouth Pain, Dental Problems, Difficulty Swallowing, Mouth Swelling, Other Respiratory: No: Symptoms reported, See HPI, Cough, Orthopnea, Shortness of Breath, SOB with Exertion, SOB at Rest, Stridor, Wheezing, Productive cough, Hemoptysis, Other Cardiac (ROS): No: Symptoms Reported, See HPI, Chest Pain, Edema, Irregular Heart Rate, Lightheadedness, Palpitations, Syncope, Chest Tightness, Other ABD/GI: No: Symptoms Reported, See HPI, Abdominal Distended, Abd. Pain w/ defecation, Blood Streaked Bowels, Constipated, Diarrhea, Difficulty Swallowing , Nausea, Poor Appetite, Poor Fluid Intake, Rectal Bleeding, Vomiting, Indigestion, Abdominal cramping, Tarry Stools, Other : No: Symptoms Reported, See HPI, Burning, Dysuria, Discharge, Frequency, Flank Pain, Hematuria, Incontinence, Pain, Urgency, Testicular Mass, Testicular Swelling, Lesions, Testicular Pain, Other Musculoskeletal: No: Symptoms Reported, See HPI, Back Pain, Gout, Joint Pain, Joint Swelling, Muscle Pain, Muscle Weakness, Neck Pain, Joint Stiffness, Other Neurological: Yes: Numbness, Paresthesia, Tingling. No: Symptoms reported, See HPI, Headache, Pre-Existing Deficit, Seizure, Tremors, Weakness, Unsteady Gait, Ataxia, Dizziness, Other Psychiatric: No: Anxiety, Depression, Frequent Crying, Stressors, Sleep Pattern Change, Emotional Problems, Mood Swings, Change in Appetite, Other Endocrine: No: Symptoms Reported, See HPI, Excessive Sweating, Flushing, Intolerance to Cold, Intolerance to Heat, Increased Hunger, Increased Thirst, Increased Urine, Unexplained Weight Gain, Unexplained Weight Loss, Change in Weight, Other Hematologic/Lymphatic: No: Symptoms Reported, See HPI, Anemia, Blood Clots, Easy Bleeding, Easy Bruising, Bleeding Diathesis, Lymph Node Abnormalities, Swollen Glands, Other <Sukhi Galaviz - Last Filed: 02/20/19 00:13> *Physical Exam - Vital Signs Last Vital Signs Temp Pulse Resp BP Pulse Ox 98.1 F 72 18 146/66 100 02/19/19 11:52 02/19/19 11:52 02/19/19 11:52 02/19/19 11:52 02/19/19 11:52 <Young Quintanilla - Last Filed: 02/19/19 18:02> - Vital Signs Last Vital Signs Temp Pulse Resp BP Pulse Ox 98.1 F 72 18 146/66 100 02/19/19 11:52 02/19/19 11:52 02/19/19 11:52 02/19/19 11:52 02/19/19 11:52 - Physical Exam Comments: 02/19/19 12:48 VS reviewed/reassuring GEN: well appearing, NAD, AAOx3 NEENT: no facial asymmetry. Eyes PERRLA, EOMI. cranial nerves II-XII intact. Neuro: 5/5 strength b/l UE, hands, and bass string winder. Legs moving freely. Intact sensation to sharp and dull in all extremities but less in the hands (with right affected > left; less sensation in the right thumb, 1st, and 2nd fingers, palmar aspect). CV: S1/S2, RRR Lungs: CTA b/l Abd: soft, ntnd <Sukhi Galaviz - Last Filed: 02/20/19 00:13> ED Treatment Course - LABORATORY CBC & Chemistry Diagram: 02/19/19 13:35 02/19/19 15:54 - ADDITIONAL ORDERS Additional order review: Laboratory Results 02/19/19 02/19/19 15:54 13:35 Sodium 137 Cancelled Potassium 6.8 H* Cancelled Chloride 106 Cancelled Carbon Dioxide 20 L Cancelled Anion Gap 10 Cancelled BUN 61.7 H Cancelled Creatinine 7.0 H Cancelled Est GFR (CKD-EPI)AfAm 5.82 Cancelled Est GFR (CKD-EPI)NonAf 5.02 Cancelled Random Glucose 127 H Cancelled Calcium 8.3 L Cancelled Total Bilirubin 0.2 Cancelled AST 12 L Cancelled ALT 16 Cancelled Alkaline Phosphatase 59 Cancelled Total Protein 6.6 Cancelled Albumin 3.0 L Cancelled TSH 2.25 Cancelled 02/19/19 13:35 RBC 3.24 L MCV 93.8 MCHC 32.9 RDW 14.4 MPV 8.3 Neutrophils % 69.3 D Lymphocytes % 19.6 Monocytes % 5.8 Eosinophils % 4.2 Basophils % 1.1 <Young Quintanilla - Last Filed: 02/19/19 18:02> - LABORATORY CBC & Chemistry Diagram: 02/19/19 13:35 02/19/19 23:12 <Sukhi Galaviz - Last Filed: 02/20/19 00:13> Medical Decision Making - Medical Decision Making 02/19/19 18:[address] Howe by Dr. Quintanilla Admit to medicine tele. <Young Quintanilla - Last Filed: 02/19/19 18:02> - Medical Decision Making 02/19/19 12:53 83 yo F p/w constant numbness in the hands, more pronounced on the right side especially in the thumb, 1st, and 2nd fingers. Pmh of ESRD on HD (//), NIDDM, chronic diarrhea, HTN, and HLD. She is without weakness, changes in balance, h/o CVA/TIA, and thyroid dz. Physical exam demonstrated numbness in the b/l hands with more pronounced change of sensation in the right hand, median nerve distribution. Intact sensation and strength. Pt condition likely 2/2 electrolyte abnormality in setting of ESRD on HD vs peripheral neuropathy. Signs/Sx not consistent with CVA/TIA. - will obtain EKG, CBC, CMP, Thyroid panel. - K 6.8 w/o EKG changes Dispo: admitted to medicine for HD d/w Dr. Quintanilla 02/19/19 23:54 <Sukhi Galaviz - Last Filed: 02/20/19 00:13> *DC/Admit/Observation/Transfer - Discharge Dispostion Decision to Admit order Date/Time: Decision to Admit Order Category Date Time Status Decision to Admit to Hospital Routine Admission 02/19/19 17:38 Active <Young Quintanilla - Last Filed: 02/19/19 18:02> - Discharge Dispostion Decision to Admit order: Yes <Sukhi Galaviz - Last Filed: 02/20/19 00:13> Diagnosis at time of Disposition: Hyperkalemia - Discharge Dispostion Disposition: TRANSFER ACUTE CARE/OTHER HOSP
--- NOTE | 2019-02-19 13:21 | PDOC ---
Documentation entered by Benjamin Limon SCRIBE, acting as scribe for Sharon Chapman MD. Sharon Chapman MD: This documentation has been prepared by the [employer] Joel, SCRIBE, under my direction and personally reviewed by me in its entirety. I confirm that the documentation accurately reflects all work, treatment, procedures, and medical decision making performed by me. Attending Attestation - Resident Resident Name: Sukhi Galaviz - HPI HPI: 02/19/19 13:15 The patient is an 83 year old female with a significant PMH of ESRD (dialysis TThSa), COPD, HTN, and DM who presents to the emergency department for evaluation of bilateral hand/fingertip numbness for the past 2 weeks which has been persistent today. The patient states she has had intermittent 30 minute episodes of bilateral numbness in the hands and fingertips which usually stops suddenly with no aggravating or alleviating factors. She states however her bilateral hand numbness has been persistent today and she called her Dr. Cristela Canales, which prompted her to miss dialysis today and visit the ED. The patient denies weakness. The patient denies chest pain, shortness of breath, headache and dizziness. Denies fever, chills, nausea, vomit, diarrhea and constipation. Denies dysuria, frequency, urgency and hematuria. Allergies: Penicillin V, Iodine, Vancomycin, Azithromycin Past surgical history: Femoral bypass. Cholecystectomy. 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 Social history: Former everyday smoker. No reported alcohol or drug use. PCP: Dr. Angela Barahona Nephro: Dr. Jay Jay Saavedra - Physicial Exam PE: 02/19/19 13:15 Agree with resident exam. Pt is alert and in no acute distress. Neuro exam: AAOx3, normal mood and affect, CN grossly intact. - Medical Decision Making 02/19/19 13:18 Pt presents to the ED complaining of numbness without weakness that is confined to her hands and fingers. Differential includes electrolyte disturbance and peripheral neuropathy. No signs or symptoms consistent with stroke. Will check labs, likely discharge home if labs are within normal limits.
--- NOTE | 2019-02-19 13:50 | EKG ---
Test Reason : Blood Pressure : / mmHG Vent. Rate : 072 BPM Atrial Rate : 072 BPM P-R Int : 176 ms QRS Dur : 094 ms QT Int : 404 ms P-R-T Axes : 049 038 073 degrees QTc Int : 442 ms NORMAL SINUS RHYTHM NORMAL ECG WHEN COMPARED WITH ECG OF 05-JAN-2019 22:11, CRITERIA FOR LATERAL INFARCT ARE NO LONGER PRESENT ST NO LONGER DEPRESSED IN LATERAL LEADS T WAVE INVERSION NO LONGER EVIDENT IN INFERIOR LEADS T WAVE INVERSION NO LONGER EVIDENT IN LATERAL LEADS Confirmed by MD BRYAN, MICHELE ([id number]) on 02/19/2019 1:50:05 PM Referred By: Confirmed By:MICHELE ADAMS MD
[2019-02-19 13:54] LABS: BASO % 1.1 % (0-2.0); EOS % 4.2 % (0-4.5); HEMATOCRIT 30.4 % (32.4-45.2); LYMPH % 19.6 % (8-40); MCH 30.9 pg (25.7-33.7); MCHC 32.9 g/dl (32.0-36.0); MEAN CELL VOLUME 93.8 fl (80-96); MEAN PLT VOLUME 8.3 fl (7.5-11.1); MONO % 5.8 % (3.8-10.2); NEUT % 69.3 % (42.8-82.8); PLATELET COUNT 266 K/MM3 (134-434); RBC 3.24 M/mm3 (3.60-5.2); RDW 14.4 % (11.6-15.6); WHITE BLOOD COUNT 8.5 K/mm3 (4.0-10.0)
[2019-02-19 16:50] LABS: BILIRUBIN,TOTAL 0.2 mg/dL (0.2-1); BLOOD UREA NITROGEN 61.7 mg/dL (7-18); CALCIUM 8.3 mg/dL (8.5-10.1); TOT PROT 6.6 g/dl (6.4-8.2)
[2019-02-19 17:03] LABS: POTASSIUM 6.8 mmol/L (3.5-5.1)
--- NOTE | 2019-02-19 17:49 | HP ---
Admitting History and Physical - Admission History of Present Illness: 83 year old woman with hx of ESRD on HD (suspected diabetic nephropathy), Hypertension, DM, Hypertension, chronic diarrhea presented with complaints of generalized weakness and found to have K of 7.4 and BUN of >90. #ESRD on HD #Hypertension #DM #Hyperphosphatemia #Anemia tolerating dialysis as inpatient today accepted to [facility] HD, first tx to be on Monday continue present antihypertensives as outpatient will give JACOB with HD for anemia continue phos binders The patient is an 83 year old female with a significant PMH of ESRD (dialysis TThSa), COPD, HTN, and DM who presents to the emergency department for evaluation of bilateral hand/fingertip numbness for the past 2 weeks which has been persistent today. The patient states she has had intermittent 30 minute episodes of bilateral numbness in the hands and fingertips which usually stops suddenly with no aggravating or alleviating factors. She states however her bilateral hand numbness has been persistent today and she called her Dr. Cristela Canales, which prompted her to miss dialysis today and visit the ED. The patient denies weakness. The patient denies chest pain, shortness of breath, headache and dizziness. Denies fever, chills, nausea, vomit, diarrhea and constipation. Denies dysuria, frequency, urgency and hematuria. Allergies: Penicillin V, Iodine, Vancomycin, Azithromycin Past surgical history: Femoral bypass. Cholecystectomy. 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 Social history: Former everyday smoker. No reported alcohol or drug use. PCP: Dr. Angela Barahona Nephro: Dr. Jay Jay Saavedar Pt woke up today at 6am with the tingling, has been constant. She notes tingling is more pronounced in the Right hand over left, specifically in the thumb, first, and second digits. Denies h/o CVA/TIA, thyroid dz, abdominal pain , changes in balance, and weakness. Last HD on Monday02/16/19, scheduled for HD today at 10:45am but canceled d/ t medical concern above. - Past Medical History Cardiovascular: Yes: HTN, Hyperlipdemia, Murmur, Other (PAD) Pulmonary: Yes: Asthma, COPD Hepatobiliary: Yes: Cholelithiasis, Choledocholithiasis Renal/: Yes: Renal Inusuff Heme/Onc: Yes: Anemia Infectious Disease: Yes: Other (history of osteomyelitis in the past) Endocrine: Yes: Diabetes Mellitus - Past Surgical History Past Surgical History: Yes: Amputation (1-st R toe amputation), Bypass (Right fem pop bypass) - Smoking History Smoking history: Current every day smoker Have you smoked in the past 12 months: Yes Aproximately how many cigarettes per day: 20 If you are a former smoker, when did you quit?: 08/10/2012 - Alcohol/Substance Use Hx Alcohol Use: No History of Substance Use: reports: None - Social History ADL: Independent 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, 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, 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 Travel: No Home Medications - Allergies Allergies/Adverse Reactions: Allergies Allergy/AdvReac Type Severity Reaction Status Date / Time iodine Allergy Rash Verified 02/19/19 11:55 penicillin V Allergy Verified 02/19/19 11:55 shellfish derived Allergy Rash Verified 02/19/19 11:55 vancomycin Allergy Verified 02/19/19 11:55 azithromycin AdvReac Verified 02/19/19 11:55 - Home Medications Home Medications: Ambulatory Orders Alprazolam [Xanax] 0.25 mg PO BID PRN 02/19/19 Amitriptyline HCl [Elavil -] 25 mg PO DAILY 02/19/19 Aspirin [ASA -] 81 mg PO DAILY 02/19/19 Atorvastatin Ca [Lipitor] 10 mg PO HS 02/19/19 Atorvastatin Ca [Lipitor] 10 mg PO HS 02/19/19 Calcitriol [Rocaltrol -] 0.25 mcg PO DAILY 02/19/19 Calcium Acetate 667 mg PO TID 02/19/19 Carvedilol [Coreg -] 6.25 mg PO BID 02/19/19 Cholestyramine [Cholestyramine Resin] 1 gm PO DAILY 02/19/19 Ferrous Gluconate [Fergon -] 324 mg PO DAILY 02/19/19 Losartan Potassium [Cozaar] 100 mg PO DAILY 02/19/19 Nifedipine [Procardia Xl] 90 mg PO DAILY 02/19/19 Family Disease History - Family Disease History Family Disease History: CA: Father (lung ca), Mother (, lung ca), Sister (lung ca) Physical Examination Vital Signs: Vital Signs Temperature 98.1 F 02/19/19 11:52 Pulse Rate 72 02/19/19 11:52 Respiratory Rate 18 02/19/19 11:52 Blood Pressure 146/66 02/19/19 11:52 O2 Sat by Pulse Oximetry (%) 100 02/19/19 11:52 Labs: CBC, BMP 02/19/19 13:35 02/19/19 15:54
[2019-02-19] MEDS ORDERED: CALCIUM GLUCONATE 10% - 1,000 MG/10 ML VIAL IVPB ONE (17:56)
[2019-02-19] MEDS ORDERED: ALBUTEROL SO4 0.5 % INH SOLN 2.5 MG/0.5 ML VIAL.NEB. NEB ONE (17:57)
--- NOTE | 2019-02-19 18:09 | HP ---
Admitting History and Physical - Primary Care Physician PCP: Angela Barahona S - Admission Chief Complaint: needs dialysis History of Present Illness: The patient is an 83 year old female with a significant PMH of ESRD (dialysis TThSa), COPD, HTN, and DM who presents to the emergency department for evaluation of intermittent tingling to both hands and fingers over the last two weeks. She awoke this morning with increased intensity of symptoms and decided not to present for her routine HD session. She denies chest pain, shortness of breath, headache and dizziness, fever, chills, nausea, vomit, diarrhea and constipation. In ED: EKG NSR 72bpm Labs: BUN/Cr 61.7/7.0, K 6.8 Decision made to admit for iHD, observe overnight and d/c home in AM. Allergies: Penicillin V, Iodine, Vancomycin, Azithromycin Past surgical history: Femoral bypass. Cholecystectomy. 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 Social history: Former everyday smoker. No reported alcohol or drug use. PCP: Dr. Angela Barahona Nephro: Dr. Jay Jay Saavedra History Source: Patient Limitations to Obtaining History: No Limitations - Past Medical History Cardiovascular: Yes: HTN, Hyperlipdemia, Murmur, Other (PAD) Pulmonary: Yes: Asthma, COPD Hepatobiliary: Yes: Cholelithiasis, Choledocholithiasis Renal/: Yes: Renal Inusuff Reproductive: Yes: Postmenopausal Heme/Onc: Yes: Anemia Infectious Disease: Yes: Other (history of osteomyelitis in the past) Endocrine: Yes: Diabetes Mellitus - Past Surgical History Past Surgical History: Yes: Amputation (1-st R toe amputation), Bypass (Right fem pop bypass) - Smoking History Smoking history: Current every day smoker Have you smoked in the past 12 months: Yes Aproximately how many cigarettes per day: 20 If you are a former smoker, when did you quit?: 08/10/2012 - Alcohol/Substance Use Hx Alcohol Use: No History of Substance Use: reports: None - Social History Usual Living Arrangement: Yes: Alone ADL: Independent 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, 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, 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 Travel: No Home Medications - Allergies Allergies/Adverse Reactions: Allergies Allergy/AdvReac Type Severity Reaction Status Date / Time iodine Allergy Rash Verified 02/19/19 11:55 penicillin V Allergy Verified 02/19/19 11:55 shellfish derived Allergy Rash Verified 02/19/19 11:55 vancomycin Allergy Verified 02/19/19 11:55 azithromycin AdvReac Verified 02/19/19 11:55 - Home Medications Home Medications: Ambulatory Orders Alprazolam [Xanax] 0.25 mg PO BID PRN 02/19/19 Amitriptyline HCl [Elavil -] 25 mg PO DAILY 02/19/19 Aspirin [ASA -] 81 mg PO DAILY 02/19/19 Atorvastatin Ca [Lipitor] 10 mg PO HS 02/19/19 Atorvastatin Ca [Lipitor] 10 mg PO HS 02/19/19 Calcitriol [Rocaltrol -] 0.25 mcg PO DAILY 02/19/19 Calcium Acetate 667 mg PO TID 02/19/19 Carvedilol [Coreg -] 6.25 mg PO BID 02/19/19 Cholestyramine [Cholestyramine Resin] 1 gm PO DAILY 02/19/19 Ferrous Gluconate [Fergon -] 324 mg PO DAILY 02/19/19 Losartan Potassium [Cozaar] 100 mg PO DAILY 02/19/19 Nifedipine [Procardia Xl] 90 mg PO DAILY 02/19/19 Family Disease History - Family Disease History Family Disease History: CA: Father (lung ca), Mother (, lung ca), Sister (lung ca) Review of Systems - Review of Systems Constitutional: reports: No Symptoms Eyes: reports: No Symptoms HENT: reports: No Symptoms Neck: reports: No Symptoms Cardiovascular: reports: No Symptoms Respiratory: reports: No Symptoms Gastrointestinal: reports: No Symptoms Genitourinary: reports: No Symptoms Breasts: reports: No Symptoms Reported Musculoskeletal: reports: No Symptoms Integumentary: reports: No Symptoms Neurological: reports: Other (paresthesias) Endocrine: reports: No Symptoms Hematology/Lymphatic: reports: No Symptoms Psychiatric: reports: No Symptoms Physical Examination Vital Signs: Vital Signs Temperature 98.1 F 02/19/19 11:52 Pulse Rate 72 02/19/19 11:52 Respiratory Rate 18 02/19/19 11:52 Blood Pressure 146/66 02/19/19 11:52 O2 Sat by Pulse Oximetry (%) 100 02/19/19 11:52 Constitutional: Yes: No Distress, Calm, Thin Eyes: Yes: Conjunctiva Clear, PERRL, Other (edentulous) HENT: Yes: Atraumatic, Normocephalic Neck: Yes: Supple, Trachea Midline Cardiovascular: Yes: Regular Rate and Rhythm Respiratory: Yes: Regular, CTA Bilaterally Gastrointestinal: Yes: Normal Bowel Sounds, Soft ...Rectal Exam: Yes: Deferred Musculoskeletal: Yes: WNL Extremities: Yes: WNL Edema: No Peripheral Pulses WNL: Yes Peripheral Pulses: Left Radial: 2+, Right Radial: 2+, Left Doralis Pedis: 2+, Right Dorsalis Pedis: 2+ Integumentary: Yes: WNL Neurological: Yes: Alert, Oriented ...Motor Strength: WNL Psychiatric: Yes: WNL Labs: CBC, BMP 02/19/19 13:35 02/19/19 15:54 Problem List - Problems (1) Anemia Assessment/Plan: ferrous glu 325mg daily procrit 10,000u x 1 today Code(s): D64.9 - ANEMIA, UNSPECIFIED Qualifiers: Anemia type: unspecified type Qualified Code(s): D64.9 - Anemia, unspecified (2) Anxiety Assessment/Plan: c/w xanax 0.25mg BID elavil 25mg daily Code(s): F41.9 - ANXIETY DISORDER, UNSPECIFIED (3) CAD (coronary artery disease) Assessment/Plan: Aspirin 81mg daily lipitor 10mg qhs coreg 6.25mg BID Code(s): I25.10 - ATHSCL HEART DISEASE OF [place] CORONARY ARTERY W/O ANG PCTRS Qualifiers: Coronary Disease-Associated Artery/Lesion type: [place] artery [place] vs. transplanted heart: [place] heart Associated angina: without angina Qualified Code(s): I25.10 - Atherosclerotic heart disease of [place] coronary artery without angina pectoris (4) COPD (chronic obstructive pulmonary disease) Assessment/Plan: Duonebs PRN PRN O2 NC Code(s): J44.9 - CHRONIC OBSTRUCTIVE PULMONARY DISEASE, UNSPECIFIED (5) ESRD (end stage renal disease) Assessment/Plan: iHD today c/w phoslo and calcitriol Code(s): N18.6 - END STAGE RENAL DISEASE (6) HTN (hypertension) Assessment/Plan: nifedipine 90mg daily cardiac-renal diet losartan 100mg daily Code(s): I10 - ESSENTIAL (PRIMARY) HYPERTENSION Qualifiers: Hypertension type: essential hypertension Qualified Code(s): I10 - Essential (primary) hypertension (7) Hyperlipidemia associated with type 2 diabetes mellitus Assessment/Plan: c/w statin cholestyramine 1gm daily Code(s): E11.69 - TYPE 2 DIABETES MELLITUS WITH OTHER SPECIFIED COMPLICATION; E78.5 - HYPERLIPIDEMIA, UNSPECIFIED Assessment/Plan DISPO: full code Visit type - Emergency Visit Emergency Visit: Yes ED Registration Date: 02/19/19 Care time: The patient presented to the Emergency Department on the above date and was hospitalized for further evaluation of their emergent condition. - New Patient This patient is new to me today: Yes Date on this admission: 02/19/19 - Critical Care Critical Care patient: No
[2019-02-19] MEDS ORDERED: ALBUTEROL SO4 2.5/IPRATROPIUM 0.5 INH SOL 3 ML VIAL.NEB. NEB PRN (18:57)
[2019-02-19] MEDS ORDERED: EPOETIN ALFA 10,000 UNIT/1 ML VIAL IVPUSH ONE (20:00)
[2019-02-19] MEDS: ALPRAZolam 0.25 MG TABLET PO PRN (20:26)
[2019-02-19] MEDS ORDERED: ATORVASTATIN CA 10 MG TABLET (FP) PO SCH (22:00)
[2019-02-19] MEDS: CARVEDILOL 6.25 MG TABLET (FP) PO SCH (22:44)
[2019-02-20 00:02] LABS: BLOOD UREA NITROGEN 11.5 mg/dL (7-18); CREATININE 1.9 mg/dL (0.55-1.3); POTASSIUM 3.7 mmol/L (3.5-5.1)
[2019-02-20] MEDS ORDERED: AMITRIPTYLINE HCL 25 MG TABLET (FP) PO SCH (00:30)
[2019-02-20] MEDS: CARVEDILOL 6.25 MG TABLET (FP) PO SCH (09:12)
[2019-02-20] MEDS ORDERED: CHOLESTYRAMINE PO SCH (10:00)
[2019-02-20] MEDS ORDERED: CALCITRIOL 0.25 MCG CAPSULE (FP) PO SCH (10:00)
[2019-02-20] MEDS ORDERED: FERROUS GLUCONATE 324 MG TAB (FP) PO SCH (10:00)
[2019-02-20] MEDS ORDERED: NIFEdipine E.R. 90 MG TABLET (FP) PO SCH (10:00)
[2019-02-20] MEDS ORDERED: LOSARTAN POTASSIUM 50 MG TABLET (FP) PO SCH (10:00)
[2019-02-20] MEDS ORDERED: ASPIRIN 81 MG CHEWABLE TABLETS PO SCH (10:00)
--- NOTE | 2019-02-20 10:37 | DS ---
Physical Examination Vital Signs: Vital Signs Temperature 98.3 F 02/20/19 02:00 Pulse Rate 85 02/20/19 02:00 Respiratory Rate 18 02/20/19 02:00 Blood Pressure 164/78 02/20/19 02:00 O2 Sat by Pulse Oximetry (%) 98 02/19/19 22:00 Constitutional: Yes: Well Nourished, No Distress, Calm Eyes: Yes: WNL, Conjunctiva Clear, EOM Intact HENT: Yes: WNL, Atraumatic, Normocephalic Neck: Yes: WNL, Supple, Trachea Midline Cardiovascular: Yes: WNL, Regular Rate and Rhythm Respiratory: Yes: WNL, Regular, CTA Bilaterally Gastrointestinal: Yes: WNL, Normal Bowel Sounds, Soft ...Rectal Exam: Yes: Deferred Renal/: Yes: WNL Musculoskeletal: Yes: WNL Extremities: Yes: Other (R AV fistula) Edema: No Peripheral Pulses WNL: Yes Integumentary: Yes: WNL Neurological: Yes: WNL, Alert, Oriented ...Motor Strength: WNL Psychiatric: Yes: WNL, Alert, Oriented Labs: CBC, BMP 02/19/19 13:35 02/19/19 23:12 Discharge Summary Reason For Visit: MISSED DIALYSIS HPERKALEMIA Current Active Problems Hyperkalemia (Acute) Hospital Course: Presented to ED with Hyperkalemia 6.8. Emergent HD performed. Post HD labs all within normal limits. To Follow with Dr Barahona Problem List - Problems (1) Anemia Assessment/Plan: ferrous glu 325mg daily procrit 10,000u x 1 today (2) Anxiety Assessment/Plan: c/w xanax 0.25mg BID elavil 25mg daily (3) CAD (coronary artery disease) Assessment/Plan: Cont all home meds Aspirin 81mg daily lipitor 10mg qhs coreg 6.25mg BID (4) COPD (chronic obstructive pulmonary disease) Assessment/Plan: Broncholdilators as needed No need for supplemental O2 (5) ESRD (end stage renal disease) Assessment/Plan: HD as scheduled (6) HTN (hypertension) Assessment/Plan: Contiue all home medsnifedipine 90mg daily cardiac-renal diet losartan 100mg daily (7) Hyperlipidemia associated with type 2 diabetes mellitus Assessment/Plan: c/w statin cholestyramine 1gm daily To return with follow up with Dr Barahona - Instructions Diet, Activity, Other Instructions: Patient to return home. Resume renal diet, low potassium, low protein diet. Resume dialysis as scheduled, next session on 02/21. Patient has appointment with Dr Barahona on monday. Resume all medications you were taking at home Disposition: HOME - Home Medications Comprehensive Discharge Medication List: Ambulatory Orders Alprazolam [Xanax] 0.25 mg PO BID PRN 02/19/19 Amitriptyline HCl [Elavil -] 25 mg PO HS 02/19/19 Aspirin [ASA -] 81 mg PO DAILY 02/19/19 Atorvastatin Ca [Lipitor] 10 mg PO HS 02/19/19 Atorvastatin Ca [Lipitor] 10 mg PO HS 02/19/19 Calcitriol [Calcitriol -] 0.25 mcg PO DAILY 02/19/19 Calcium Acetate 667 mg PO TID 02/19/19 Carvedilol [Coreg -] 6.25 mg PO BID 02/19/19 Cholestyramine [Cholestyramine Resin] 1 gm PO DAILY 02/19/19 Ferrous Gluconate [Fergon -] 324 mg PO DAILY 02/19/19 Losartan Potassium [Cozaar] 100 mg PO DAILY 02/19/19 Nifedipine [Procardia Xl] 90 mg PO DAILY 02/19/19 Amitriptyline HCl [Elavil -] 25 mg PO DAILY PRN 02/20/19 This patient is new to me today: Yes Date on this admission: 02/20/19 Emergency Visit: Yes ED Registration Date: 02/19/19 Care time: The patient presented to the Emergency Department on the above date and was hospitalized for further evaluation of their emergent condition. Critical Care patient: No - Discharge Referral Referred to [facility] Med [facility] No
[2019-02-20] MEDS: ALPRAZolam 0.25 MG TABLET PO PRN (10:56)
--- NOTE | 2019-02-20 11:39 | CONSULT ---
Consult - text type - Consultation Consultation Note: Renal consult for ESRD and hyperkalemia This is a 83 year old woman with history of ESRD on HD (TTS) due to diabetic nephropathy, hypertension, COPD, Former smoker who presented to the ED with complaints of bilateral arm tingling and weakness and found to have hyperkalemia with K of 6.8. Pt last had dialysis as an outpatient on Monday w/ o complication. s/p emergent HD last night. Pt tolerated the dialysis well. No acute complaints this morning. No flank pain, dizziness, chest pain, fever, chills, N/V/D, PARR, or confusion. For discharge home today. PMHx: as above Allergies: as listed in EMR Family Hx: NC Social Hx: Former smoker ROS: As per HPI, all other pertinent ros negative Home Medications Medication Instructions Recorded Alprazolam [Xanax] 0.25 mg PO BID PRN 02/19/19 Amitriptyline HCl [Elavil -] 25 mg PO HS 02/19/19 Aspirin [ASA -] 81 mg PO DAILY 02/19/19 Atorvastatin Ca [Lipitor] 10 mg PO HS 02/19/19 Atorvastatin Ca [Lipitor] 10 mg PO HS 02/19/19 Calcitriol [Calcitriol -] 0.25 mcg PO DAILY 02/19/19 Calcium Acetate 667 mg PO TID 02/19/19 Carvedilol [Coreg -] 6.25 mg PO BID 02/19/19 Cholestyramine [Cholestyramine 1 gm PO DAILY 02/19/19 Resin] Ferrous Gluconate [Fergon -] 324 mg PO DAILY 02/19/19 Losartan Potassium [Cozaar] 100 mg PO DAILY 02/19/19 Nifedipine [Procardia Xl] 90 mg PO DAILY 02/19/19 Amitriptyline HCl [Elavil -] 25 mg PO DAILY PRN 02/20/19 Vital Signs Temperature 98.3 F 02/20/19 02:00 Pulse Rate 85 02/20/19 02:00 Respiratory Rate 18 02/20/19 02:00 Blood Pressure 164/78 02/20/19 02:00 O2 Sat by Pulse Oximetry (%) 98 02/19/19 22:00 NAD awake and alert neck supple, no JVD RRR, no M/R CTA no LE edema tunneled HD catheter in place CBC, BMP 02/19/19 13:35 02/19/19 23:12 Current Medications Albuterol/Ipratropium (Duoneb -) 1 amp NEB Q6H PRN PRN Reason: SHORTNESS OF BREATH Alprazolam (Xanax -) 0.25 mg PO Q12H PRN PRN Reason: ANXIETY Last Admin: 02/20/19 10:56 Dose: 0.25 mg Amitriptyline HCl (Elavil -) 25 mg PO HS [facility] Last Admin: 02/20/19 00:34 Dose: 25 mg Aspirin (Asa -) 81 mg PO DAILY [facility] Last Admin: 02/20/19 09:12 Dose: 81 mg Atorvastatin Calcium (Lipitor -) 10 mg PO HS [facility] Last Admin: 02/19/19 22:44 Dose: 10 mg Calcitriol (Rocaltrol -) 0.25 mcg PO DAILY [facility] Last Admin: 02/20/19 09:12 Dose: 0.25 mcg Calcium Acetate (Phoslo -) 667 mg PO TIDCM [facility] Carvedilol (Coreg -) 6.25 mg PO BID [facility] Last Admin: 02/20/19 09:12 Dose: 6.25 mg Ferrous Gluconate (Fergon -) 324 mg PO DAILY [facility] Last Admin: 02/20/19 09:12 Dose: Not Given Losartan Potassium (Cozaar -) 100 mg PO DAILY [facility] Last Admin: 02/20/19 09:12 Dose: 100 mg Nifedipine (Procardia Xl -) 90 mg PO DAILY [facility] Last Admin: 02/20/19 09:12 Dose: 90 mg 83 year old woman with history of ESRD on HD (TTS) due to diabetic nephropathy, hypertension, COPD, Former smoker who presented to the ED with complaints of bilateral arm tingling and weakness and found to have hyperkalemia with K of 6.8. #ESRD on HD #Hyperkalemia #DM #Hypertension #Arm weakness (now resolved) #Anemia Pt likely with hyperkalemia due to dietiary indiscretion. Do not suspect catheter recirculation as potassium is much improved this morning. Counseled pt regarding importance of potassium restriction in her diet. Tolerated dialysis well yesterday. No further treatment needed today can be discharged and get next treatment as outpatient on . Continue current antihypertensives including ARB, may need to hold ARB if potassium remains elevated H/H at [facility] Thank you Quentin Goyal DO
[2019-02-20 11:41] VITALS: BP 172/78; PULSE 75; TEMP 98
[2019-02-20] MEDS ORDERED: CALCIUM ACETATE 667 MG CAPSULE (FP) PO SCH (19:15)
== END 2019-02-20 12:24 | disposition home or self-care (01) | DRG 640 ==
LOC: JER 11:40 → JERBED 17:38 → J4S 18:53
PROVIDERS: ADMIT Internal Medicine; ATTEND Nurse Practitioner Acute Care
DX: E87.5 Hyperkalemia (principal); N18.6 End stage renal disease; I12.0 Hypertensive chronic kidney disease with stage 5 chronic kidney disease or end stage renal disease; I11.0 Hypertensive heart disease with heart failure; E11.22 Type 2 diabetes mellitus with diabetic chronic kidney disease; E11.21 Type 2 diabetes mellitus with diabetic nephropathy; E11.42 Type 2 diabetes mellitus with diabetic polyneuropathy; J44.9 Chronic obstructive pulmonary disease, unspecified; D64.9 Anemia, unspecified; I25.10 Atherosclerotic heart disease of native coronary artery without angina pectoris; E78.5 Hyperlipidemia, unspecified; Z99.2 Dependence on renal dialysis; Z88.0 Allergy status to penicillin; Z87.891 Personal history of nicotine dependence; Z89.411 Acquired absence of right great toe; Z89.421 Acquired absence of other right toe(s); K80.50 Calculus of bile duct without cholangitis or cholecystitis without obstruction
CPT/HCPCS: 36415; 80048; 80053; 84443; 85025; 86803; 87340; 93005; 93010; 99283-25; J0885

== ENCOUNTER 2019-04-17 09:45 | Inpatient (IN) | payer OTHER ==
[2019-04-17 10:51] LABS: BASO % 1.2 % (0-2.0); EOS % 2.1 % (0-4.5); HEMATOCRIT 31.6 % (32.4-45.2); HEMOGLOBIN 10.4 GM/dL (10.7-15.3); LYMPH % 14.1 % (8-40); MCH 32.6 pg (25.7-33.7); MCHC 32.9 g/dl (32.0-36.0); MEAN PLT VOLUME 8.1 fl (7.5-11.1); MONO % 10.6 % (3.8-10.2); PLATELET COUNT 233 K/MM3 (134-434); RBC 3.19 M/mm3 (3.60-5.2); RDW 17.4 % (11.6-15.6); WHITE BLOOD COUNT 8.1 K/mm3 (4.0-10.0)
[2019-04-17 11:35] LABS: ALBUMIN 3.3 g/dl (3.4-5.0); BILIRUBIN,TOTAL 0.3 mg/dL (0.2-1); BLOOD UREA NITROGEN 50.8 mg/dL (7-18); CALCIUM 7.4 mg/dL (8.5-10.1); MAGNESIUM 2.4 mg/dL (1.8-2.4); POTASSIUM 4.1 mmol/L (3.5-5.1); TOT PROT 7.1 g/dl (6.4-8.2)
[2019-04-17 11:48] LABS: CREATININE 8.5 mg/dL (0.55-1.3)
--- NOTE | 2019-04-17 12:13 | EKG ---
Test Reason : Blood Pressure : / mmHG Vent. Rate : 072 BPM Atrial Rate : 072 BPM P-R Int : 170 ms QRS Dur : 094 ms QT Int : 418 ms P-R-T Axes : 027 119 159 degrees QTc Int : 457 ms NORMAL SINUS RHYTHM LEFT POSTERIOR FASCICULAR BLOCK POSSIBLE INFERIOR INFARCT , AGE UNDETERMINED ABNORMAL ECG WHEN COMPARED WITH ECG OF 19-FEB-2019 11:50, LEFT POSTERIOR FASCICULAR BLOCK IS NOW PRESENT BORDERLINE CRITERIA FOR INFERIOR INFARCT ARE NOW PRESENT NONSPECIFIC T WAVE ABNORMALITY NOW EVIDENT IN INFERIOR LEADS Confirmed by ANUP DC, JERRY ([id number] on 04/17/2019 12:13:19 PM Referred By: Confirmed By:JERRY HEBERT MD
--- NOTE | 2019-04-17 12:31 | PDOC ---
Documentation entered by Kamila Whyte SCRIBE, acting as scribe for Sj Paris MD. Sj Paris MD: This documentation has been prepared by the Pato box Adrianna, SCRIBE, under my direction and personally reviewed by me in its entirety. I confirm that the documentation accurately reflects all work, treatment, procedures, and medical decision making performed by me. History of Present Illness - General Stated Complaint: FALL Time Seen by Provider: 04/17/19 09:57 - History of Present Illness Initial Comments: 83 Y F, with PMH of ESRD (dialysis TThSa), COPD, HTN, presents s/p fall. Patient notes she got up after breakfast and was walking with her walker, when her legs gave out and she fell. Patient reports falling on her left hip/buttox. She denies LOC, head contusion, or headache. Patient notes she last received dialysis 5 days ago, and was unable to go yesterday. She endorses some weakness , left hip pain, and notes she doesn't feel like herself. Allergies: Penicillin V, Iodine, Vancomycin, Azithromycin Past surgical history: Femoral bypass. Cholecystectomy. 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 Social history: Current everyday smoker (1ppd for >60 years). No reported alcohol or drug use. PCP: Dr. Angela Barahona Nephro: Dr. Jay Jay Saavedra Past History - Past Medical History Allergies/Adverse Reactions: Allergies Allergy/AdvReac Type Severity Reaction Status Date / Time iodine Allergy Rash Verified 02/19/19 11:55 penicillin V Allergy Verified 02/19/19 11:55 shellfish derived Allergy Rash Verified 02/19/19 11:55 vancomycin Allergy Verified 02/19/19 11:55 azithromycin AdvReac Verified 02/19/19 11:55 Home Medications: Ambulatory Orders Alprazolam [Xanax] 0.25 mg PO BID PRN 02/19/19 Amitriptyline HCl [Elavil -] 25 mg PO HS 02/19/19 Aspirin [ASA -] 81 mg PO DAILY 02/19/19 Atorvastatin Ca [Lipitor] 10 mg PO HS 02/19/19 Calcitriol [Calcitriol -] 0.25 mcg PO DAILY 02/19/19 Calcium Acetate 667 mg PO TID 02/19/19 Carvedilol [Coreg -] 6.25 mg PO BID 02/19/19 Cholestyramine [Cholestyramine Resin] 1 gm PO DAILY 02/19/19 Nifedipine [Procardia Xl] 90 mg PO DAILY 02/19/19 Anemia: Yes Asthma: Yes Cancer: No Cardiac Disorders: Yes (PAD,CAD) CVA: No COPD: No CHF: No DVT: No Dementia: No Diabetes: Yes Dialysis: Yes (,th,sa) GI Disorders: (chronic diarrhea) Disorders: No HTN: Yes Hypercholesterolemia: Yes Liver Disease: No Seizures: No Thyroid Disease: No - Surgical History Abdominal Surgery: No Appendectomy: No Cardiac Surgery: Yes (FEMORAL BYPASS) Cholecystectomy: Yes Lung Surgery: No Neurologic Surgery: No Orthopedic Surgery: Yes (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) - Family Disease History Family Disease History: CA: Father (lung), Brother, Sister - Immunization History Immunization Up to Date: Yes - Suicide/Smoking/Psychosocial Hx Smoking Status: Yes Smoking History: Current every day smoker Have you smoked in the past 12 months: Yes Number of Cigarettes Smoked Daily: 20 If you are a former smoker, when did you quit?: 08/10/2012 Cigars Per Day: 30 'Breaking Loose' booklet given: 08/28/18 Hx Alcohol Use: No Drug/Substance Use Hx: No Substance Use Type: None Hx Substance Use Treatment: No Review of Systems - Review of Systems Comments:: CONSTITUTIONAL: +S/p fall. +Generalized weakness. +Doesnt feel like self. No fever, no chills EYES: No visual changes ENT: No ear pain, no sore throat CARDIOVASCULAR: No chest pain, no palpitations RESPIRATORY: No cough, no SOB GI: No abdominal pain, no nausea, no vomiting, no constipation, no diarrhea GENITOURINARY: No dysuria, no frequency, no hematuria MUSKULOSKELETAL: +Left hip pain. No back pain, no myalgias SKIN: No rash NEURO: No headache *Physical Exam - Vital Signs Last Vital Signs Temp Pulse Resp BP Pulse Ox 98.1 F 75 18 172/67 H 97 04/17/19 10:06 04/17/19 10:06 04/17/19 10:06 04/17/19 10:06 04/17/19 10:06 - Physical Exam Comments: CONSTITUTIONAL: +Frail appearing. Well-nourished; in no apparent distress HEAD: Normocephalic; atraumatic EYES: +Pale conjunctiva. PERRL; EOM intact ENMT: External appears normal; normal oropharynx NECK: Supple; non-tender; no cervical lymphadenopathy CARD: +Vascular cath right anterior chest wall. Normal S1, S2; no murmurs, rubs , or gallops RESP: Normal chest excursion with respiration; breath sounds clear and equal bilaterally; no wheezes, rhonchi, or rales ABD: Soft, non-distended; non-tender; no palpable organomegaly, no palpable hernias EXT: Normal ROM in all four extremities; non-tender to palpation; distal pulses intact SKIN: +Diffuse bruising. Warm, dry NEURO: No focal neurological deficiencies. Heart Score/ECG Review - Age Age: >/= 65 - Risk Factors Risk Factors Heart Score: Yes Hx Hypertension, Yes Hx Diabetes, Yes Smoking History - ECG Intrepretation Rhythm: Regular Rhythm - ECG Impressions Comment:: Vent rate 72bpm. WI interval 170 ms QRS duration 94ms QT/QTc 418/457 ms P-R-T axes 27 119 159 Normal sinus rhythm. Left posterior fascicular block Possible inferior infarct, age undetermined Abnormal ECG ED Treatment Course - LABORATORY CBC & Chemistry Diagram: 04/17/19 10:28 04/17/19 10:28 - ADDITIONAL ORDERS Additional order review: Laboratory Results 04/17/19 10:28 Sodium 137 Potassium 4.1 Chloride 100 Carbon Dioxide 21 Anion Gap 16 BUN 50.8 H Creatinine 8.5 H* Est GFR (CKD-EPI)AfAm 4.60 Est GFR (CKD-EPI)NonAf 3.97 Random Glucose 121 H Calcium 7.4 L Magnesium 2.4 Total Bilirubin 0.3 AST 18 ALT 16 Alkaline Phosphatase 83 Total Protein 7.1 Albumin 3.3 L 04/17/19 10:28 RBC 3.19 L MCV 99.0 H MCHC 32.9 RDW 17.4 H MPV 8.1 Neutrophils % 72.0 Lymphocytes % 14.1 D Monocytes % 10.6 H D Eosinophils % 2.1 Basophils % 1.2 - RADIOLOGY Radiology Studies Ordered: Category Date Time Status CHEST - PA [RAD] Stat Radiology 04/17/19 10:21 Completed HIP & PELVIS-LEFT [RAD] Stat Radiology 04/17/19 10:21 Completed Radiograph Interpretation: EXAM#: TYPE/EXAM: RESULT: [id number] RAD/CHEST - PA Rule out fracture. Impression. No evidence of active pulmonary disease. No pleural effusion, or pneumothorax is seen. Reported By: Tomás Jennings MD 04/17/19 11:05 EXAM#: TYPE/EXAM: RESULT: [id number] RAD/HIP PELVIS-LEFT Rule out fracture. Impression. Demineralized osseous structures. No displaced fracture is seen. Symmetrical articulation of the hip joints. Reported By: Tomás Jennings MD 04/17/19 11:11 - Consult/PCP Time Called: 12:15 Case discussed with personal care physician: Jarrett Barahona (spoke with doctor , is in agreement with plan) Case discussed with consulting physician: Beau King (12:12pm- spoke with doctor, in agreement with plan) Medical Decision Making - Medical Decision Making 04/17/19 12:44 Patient is a frail-appearing 83-year-old female with multiple comorbidities, history of end-stage renal disease on hemodialysis was not been dialyzed for the past 4 days who presents with generalized weakness after a fall. In the ER, patient is awake and alert, nontoxic-appearing, without focal neurological deficits. EKG reveals no evidence of significant hyperkalemia. Chest x-ray reveals no evidence of acute pulmonary edema. There is no evidence of significant leukocytosis and left hip and pelvic x-rays reveal no evidence of fracture dislocation. I discussed the case with Dr. Beau King of renal. Patient will undergo inpatient hemodialysis and will be admitted. *DC/Admit/Observation/Transfer Diagnosis at time of Disposition: ESRD (end stage renal disease), Missed dialysis - Discharge Dispostion Condition at time of disposition: Fair Decision to Admit order: Yes - Referrals Referrals: Angela Barahona [Primary Care Provider] - - Patient Instructions - Post Discharge Activity - Attestations Physician Attestion: 04/17/19 12:43 The documentation was prepared by the scribe under my direct supervision. I have reviewed the documentation which correctly represents the findings, medical decision-making and critical action taken by me.
[2019-04-17] MEDS ORDERED: SODIUM CHLORIDE 250 ML IV PRN (13:13)
--- NOTE | 2019-04-17 13:39 | HP ---
Admitting History and Physical - Primary Care Physician PCP: Angela Barahona S - Admission Chief Complaint: s/p fall weakness History of Present Illness: 83 Y F, with PMH of ESRD (dialysis TThSa), COPD, HTN, presents s/p fall. Patient notes she got up after breakfast and was walking with her walker, when her legs gave out and she fell. Patient reports falling on her left hip/buttox. She denies LOC, head contusion, or headache. Patient notes she last received dialysis 5 days ago, and was unable to go yesterday. She endorses some weakness , left hip pain, and notes she doesn't feel like herself. History Source: Patient, Medical Record Limitations to Obtaining History: No Limitations - Past Medical History Cardiovascular: Yes: HTN, Hyperlipdemia, Murmur, Other (PAD) Pulmonary: Yes: Asthma, COPD Hepatobiliary: Yes: Cholelithiasis, Choledocholithiasis Renal/: Yes: Renal Inusuff Heme/Onc: Yes: Anemia Infectious Disease: Yes: Other (history of osteomyelitis in the past) Endocrine: Yes: Diabetes Mellitus - Past Surgical History Past Surgical History: Yes: Amputation (1-st R toe amputation), Bypass (Right fem pop bypass) - Smoking History Smoking history: Current every day smoker Have you smoked in the past 12 months: Yes Aproximately how many cigarettes per day: 20 If you are a former smoker, when did you quit?: 08/10/2012 - Alcohol/Substance Use Hx Alcohol Use: No History of Substance Use: reports: None - Social History Usual Living Arrangement: Yes: Alone ADL: Independent 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, 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, 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 Travel: No Home Medications - Allergies Allergies/Adverse Reactions: Allergies Allergy/AdvReac Type Severity Reaction Status Date / Time iodine Allergy Rash Verified 02/19/19 11:55 penicillin V Allergy Verified 02/19/19 11:55 shellfish derived Allergy Rash Verified 02/19/19 11:55 vancomycin Allergy Verified 02/19/19 11:55 azithromycin AdvReac Verified 02/19/19 11:55 - Home Medications Home Medications: Ambulatory Orders Alprazolam [Xanax] 0.25 mg PO BID PRN 02/19/19 Amitriptyline HCl [Elavil -] 25 mg PO HS 02/19/19 Aspirin [ASA -] 81 mg PO DAILY 02/19/19 Atorvastatin Ca [Lipitor] 10 mg PO HS 02/19/19 Calcitriol [Calcitriol -] 0.25 mcg PO DAILY 02/19/19 Calcium Acetate 667 mg PO TID 02/19/19 Carvedilol [Coreg -] 6.25 mg PO BID 02/19/19 Cholestyramine [Cholestyramine Resin] 1 gm PO DAILY 02/19/19 Nifedipine [Procardia Xl] 90 mg PO DAILY 02/19/19 Family Disease History - Family Disease History Family Disease History: CA: Father (lung ca), Mother (, lung ca), Sister (lung ca) Review of Systems - Review of Systems Constitutional: reports: Loss of Appetite. denies: Chills, Fever Eyes: denies: Blurred Vision, Double Vision Neck: denies: Stiffness, Tenderness Cardiovascular: denies: Chest Pain, Shortness of Breath Respiratory: denies: SOB Gastrointestinal: denies: Abdominal Pain Genitourinary: denies: Dysuria, Flank Pain Musculoskeletal: denies: Back Pain Neurological: reports: Unsteady Gait, Weakness (general). denies: Change in LOC , Confusion, Dizziness, Headache, Seizure, Syncope Hematology/Lymphatic: denies: Easily Bruised, Excessive Bleeding Psychiatric: reports: Altered Sleep Pattern, Anxiety. denies: Suicidal Physical Examination Vital Signs: Vital Signs Temperature 98.1 F 04/17/19 10:06 Pulse Rate 75 04/17/19 10:06 Respiratory Rate 18 04/17/19 10:06 Blood Pressure 172/67 H 04/17/19 10:06 O2 Sat by Pulse Oximetry (%) 97 04/17/19 10:06 Constitutional: Yes: No Distress, Calm Eyes: Yes: Conjunctiva Clear HENT: Yes: Atraumatic Neck: Yes: Supple Cardiovascular: Yes: Regular Rate and Rhythm Respiratory: Yes: CTA Bilaterally Gastrointestinal: Yes: Soft. No: Tenderness Renal/: No: CVA Tenderness - Left, CVA Tenderness - Right Musculoskeletal: No: Joint Stiffness, Joint Swelling Extremities: No: Cold, Cool, Cyanosis Edema: No Integumentary: No: Rash, Skin Tear, Venous Stasis Changes Neurological: Yes: WNL, Alert, Oriented ...Motor Strength: WNL Psychiatric: Yes: WNL, Alert, Oriented. No: Agitated, Suicidal Ideation Labs: CBC, BMP 04/17/19 10:28 04/17/19 10:28 Imaging - Results Chest X-ray: Report Reviewed Other: Report Reviewed Assessment/Plan 83 Y F, with PMH of ESRD (dialysis TThSa), COPD, HTN, PVD, TOE osteomyelitis in the past, presents s/p fall on her left hip/buttox. Missed dyalisis. hips xrays no fractures dyalisis per renal falls pfx; PT rehab \d/w pt and staff
[2019-04-17] MEDS: ALPRAZolam 0.25 MG TABLET PO PRN ×2 (15:01→21:38)
[2019-04-17] MEDS: CALCIUM ACETATE 667 MG CAPSULE (FP) PO SCH (18:35)
[2019-04-17 18:48] VITALS: BMI 20.2
[2019-04-17] MEDS: INSULIN SLIDING SCALE (NOVOLOG) 1 VIAL SQ SCH ×2 (19:07→21:35)
[2019-04-17 20:02] LABS: BLOOD UREA NITROGEN 11.7 mg/dL (7-18); CREATININE 2.6 mg/dL (0.55-1.3)
[2019-04-17] MEDS ORDERED: INSULIN (NOVOLOG) ASPART 100 UNITS/ML 10ML VIAL ONE (21:08)
[2019-04-17] MEDS: HEPARIN NA (PORCINE) 5,000 UNITS/ML 1ML VIAL SQ SCH (21:28)
[2019-04-17] MEDS: ATORVASTATIN CA 10 MG TABLET (FP) PO SCH (21:28)
[2019-04-17] MEDS: CARVEDILOL 6.25 MG TABLET (FP) PO SCH (21:28)
[2019-04-17] MEDS: AMITRIPTYLINE HCL 25 MG TABLET (FP) PO SCH (21:28)
--- NOTE | 2019-04-17 22:01 | CON.NEP ---
Consult Consult Specialty:: nephrology Referred by:: juliana esparza Reason for Consultation:: esrd needs dialysis - History of Present Illness Chief Complaint: generalized weakness History of Present Illness: c/o generalized weakness x months she missed dialysis on monday and she had a fall with no injury this morning from weakness - History Source History Provided By: Patient Limitations to Obtaining History: No Limitations - Past Medical History Cardio/Vascular: Yes: HTN, Hyperlipdemia, Murmur, Other (PAD) Pulmonary: Yes: Asthma, COPD Hepatobiliary: Yes: Cholelithiasis, Choledocholithiasis Renal/: Yes: Renal Inusuff ...: No Infectious Disease: Yes: Other (history of osteomyelitis in the past) Endocrine: Yes: Diabetes Mellitus - Past Surgical History Past Surgical History: Yes: Amputation (1-st R toe amputation), Bypass (Right fem pop bypass) - Alcohol/Substance Use Hx Alcohol Use: No History of Substance Use: reports: None - Smoking History Smoking history: Current every day smoker Have you smoked in the past 12 months: Yes Aproximately how many cigarettes per day: 20 If you are a former smoker, when did you quit?: 08/10/2012 - Social History Usual Living Arrangement: Alone ADL: Independent 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, 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, 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 Travel: No Home Medications - Allergies Allergies/Adverse Reactions: Allergies Allergy/AdvReac Type Severity Reaction Status Date / Time iodine Allergy Rash Verified 02/19/19 11:55 penicillin V Allergy Verified 02/19/19 11:55 shellfish derived Allergy Rash Verified 02/19/19 11:55 vancomycin Allergy Verified 02/19/19 11:55 azithromycin AdvReac Verified 02/19/19 11:55 - Home Medications Home Medications: Ambulatory Orders Alprazolam [Xanax] 0.25 mg PO BID PRN 02/19/19 Amitriptyline HCl [Elavil -] 25 mg PO HS 02/19/19 Aspirin [ASA -] 81 mg PO DAILY 02/19/19 Atorvastatin Ca [Lipitor] 10 mg PO HS 02/19/19 Calcitriol [Calcitriol -] 0.25 mcg PO DAILY 02/19/19 Calcium Acetate 667 mg PO TID 02/19/19 Carvedilol [Coreg -] 6.25 mg PO BID 02/19/19 Cholestyramine [Cholestyramine Resin] 1 gm PO DAILY 02/19/19 Nifedipine [Procardia Xl] 90 mg PO DAILY 02/19/19 Family Disease History - Family Disease History Family Disease History: CA: Father (lung ca), Mother (, lung ca), Sister (lung ca) Nephrology Consult - Height Height: 5 ft 3 in - Weight Weight: 114 lb - BMI Body Mass Index (BMI): 20.2 - Lab Results CBC,BMP: CBC, BMP 04/17/19 10:28 04/17/19 19:15 Anion Gap: Anion Gap Anion Gap 16 MMOL/L (8-16) 04/17/19 10:28 - Physical Examination Vital Signs: Vital Signs Temperature 99.0 F 04/17/19 18:00 Pulse Rate 85 04/17/19 18:00 Respiratory Rate 20 04/17/19 18:00 Blood Pressure 159/60 04/17/19 18:00 O2 Sat by Pulse Oximetry (%) 98 04/17/19 18:00 Assessment/Plan generalized weakness- may be mood disorder ESRD- missed one tx no fluid overload no electrolyte disorders Plan will dialyze today and tomorrow to keep her on usual schedule will dialyze heparin-free although she has no traume
[2019-04-17] MEDS ORDERED: ACETAMINOPHEN 325 MG TABLET (FP) PO PRN (23:16)
[2019-04-18] MEDS: INSULIN SLIDING SCALE (NOVOLOG) 1 VIAL SQ SCH ×4 (06:51→22:00)
--- NOTE | 2019-04-18 08:29 | PN ---
Progress Note, Physician Chief Complaint: had fever 101 last night CXR and blood cx done, UCx if pt still makes urine to be sent; cath site nontender not red / edema feels anxious and depressed today had dyalsis last evening and now - Current Medication List Current Medications: Active Medications Acetaminophen (Tylenol -) 650 mg PO Q6H PRN PRN Reason: FEVER Last Admin: 04/18/19 00:31 Dose: 650 mg Alprazolam (Xanax -) 0.25 mg PO BID PRN PRN Reason: ANXIETY Last Admin: 04/17/19 21:38 Dose: 0.25 mg Amitriptyline HCl (Elavil -) 25 mg PO HS [facility] Last Admin: 04/17/19 21:28 Dose: 25 mg Aspirin (Asa -) 81 mg PO DAILY [facility] Atorvastatin Calcium (Lipitor -) 10 mg PO HS [facility] Last Admin: 04/17/19 21:28 Dose: 10 mg Calcitriol (Rocaltrol -) 0.25 mcg PO DAILY [facility] Calcium Acetate (Phoslo -) 667 mg PO TIDCM [facility] Last Admin: 04/17/19 18:35 Dose: Not Given Carvedilol (Coreg -) 6.25 mg PO BID [facility] Last Admin: 04/17/19 21:28 Dose: 6.25 mg Cholestyramine Resin (Questran Light Packet -) 4 gm PO DAILY [facility] Heparin Sodium (Porcine) (Heparin -) 5,000 unit SQ BID [facility] Last Admin: 04/17/19 21:28 Dose: 5,000 unit Sodium Chloride (Normal Saline -) 250 mls @ 3,000 mls/hr IV PRN PRN PRN Reason: Hypotension during Dialysis Stop: 04/18/19 13:14 Sodium Chloride (Normal Saline -) 250 mls @ 3,000 mls/hr IV PRN PRN PRN Reason: Hypotension during Dialysis Stop: 04/18/19 22:07 Insulin Aspart (Novolog Vial Sliding Scale -) 1 vial SQ ACHS [facility]; Protocol Last Admin: 04/18/19 06:51 Dose: Not Given Nifedipine (Procardia Xl -) 90 mg PO DAILY [facility] - Objective Vital Signs: Vital Signs Temperature 98.5 F 04/18/19 08:01 Pulse Rate 99 H 04/18/19 08:01 Respiratory Rate 19 04/18/19 08:01 Blood Pressure 170/68 04/18/19 08:01 O2 Sat by Pulse Oximetry (%) 98 04/17/19 21:00 Constitutional: Yes: No Distress, Anxious. No: Calm Eyes: Yes: Conjunctiva Clear HENT: Yes: Atraumatic Neck: Yes: Supple Cardiovascular: Yes: Regular Rate and Rhythm Respiratory: Yes: CTA Bilaterally Gastrointestinal: Yes: Soft. No: Tenderness Musculoskeletal: No: Joint Stiffness, Joint Swelling Extremities: No: Cold, Cool Edema: No Integumentary: No: Rash, Venous Stasis Changes Neurological: Yes: WNL, Alert, Oriented ...Motor Strength: WNL Psychiatric: Yes: WNL, Alert, Oriented. No: Agitated, Suicidal Ideation Labs: CBC, BMP 04/17/19 10:28 04/17/19 19:15 Assessment/Plan 83 Y F, with PMH of ESRD (dialysis TThSa), COPD, HTN, PVD, TOE osteomyelitis in the past, s/p fall on her left hip/buttox. Missed dyalisis. Anxiety depression. Smoker. hips xrays no fractures dyalisis per renal fever r/o sepsis ID eval; check cultures; xanax prn; elavil; consider lexapro? psych eval if pt. agrees falls pfx; PT rehab - d/w pt and staff
[2019-04-18] MEDS: ALPRAZolam 0.25 MG TABLET PO PRN ×2 (09:44→21:58)
[2019-04-18] MEDS: ASPIRIN 81 MG CHEWABLE TABLETS PO SCH (09:45)
[2019-04-18] MEDS: CALCIUM ACETATE 667 MG CAPSULE (FP) PO SCH ×3 (09:45→17:28)
[2019-04-18] MEDS: CARVEDILOL 6.25 MG TABLET (FP) PO SCH ×2 (09:46→21:58)
[2019-04-18] MEDS: NIFEdipine E.R. 90 MG TABLET (FP) PO SCH (09:46)
[2019-04-18] MEDS: CALCITRIOL 0.25 MCG CAPSULE (FP) PO SCH (09:49)
[2019-04-18] MEDS: HEPARIN NA (PORCINE) 5,000 UNITS/ML 1ML VIAL SQ SCH ×2 (09:53→21:58)
[2019-04-18] MEDS ORDERED: NIFEdipine E.R. 90 MG TABLET (FP) PO SCH (10:00)
[2019-04-18] MEDS ORDERED: CHOLESTYRAMINE/ASPARTAME 4 GM PACKET PO SCH (10:00)
[2019-04-18] MEDS ORDERED: SODIUM CHLORIDE 250 ML IV PRN (10:00)
--- NOTE | 2019-04-18 10:32 | CON.ID ---
Consult Consult Specialty:: infectious diseases Referred by:: Reason for Consultation:: sepsis,fever - History of Present Illness Chief Complaint: fall,weakness,fever History of Present Illness: this pleasent 83 y/o femal came t the hospitaly because of fall.According to the patient her legs suddenly gave away and she fell. she denies any other issues she is a dialysis patient but she still makes urine. yesterday patient spiked fever .currently she is stable and undergoing dialysis says she feels better - History Source History Provided By: Patient Limitations to Obtaining History: No Limitations - Past Medical History Cardio/Vascular: Yes: HTN, Hyperlipdemia, Murmur, Other (PAD) Pulmonary: Yes: Asthma, COPD Hepatobiliary: Yes: Cholelithiasis, Choledocholithiasis Renal/: Yes: Renal Inusuff ...: No Infectious Disease: Yes: Other (history of osteomyelitis in the past) Endocrine: Yes: Diabetes Mellitus - Past Surgical History Past Surgical History: Yes: Amputation (1-st R toe amputation), Bypass (Right fem pop bypass) - Alcohol/Substance Use Hx Alcohol Use: No History of Substance Use: reports: None - Smoking History Smoking history: Current every day smoker Have you smoked in the past 12 months: Yes Aproximately how many cigarettes per day: 20 If you are a former smoker, when did you quit?: 08/10/2012 - Social History Usual Living Arrangement: Alone ADL: Independent 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, 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, 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 Travel: No Home Medications - Allergies Allergies/Adverse Reactions: Allergies Allergy/AdvReac Type Severity Reaction Status Date / Time iodine Allergy Rash Verified 02/19/19 11:55 penicillin V Allergy Verified 02/19/19 11:55 shellfish derived Allergy Rash Verified 02/19/19 11:55 vancomycin Allergy Verified 02/19/19 11:55 azithromycin AdvReac Verified 02/19/19 11:55 - Home Medications Home Medications: Ambulatory Orders Alprazolam [Xanax] 0.25 mg PO BID PRN 02/19/19 Amitriptyline HCl [Elavil -] 25 mg PO HS 02/19/19 Aspirin [ASA -] 81 mg PO DAILY 02/19/19 Atorvastatin Ca [Lipitor] 10 mg PO HS 02/19/19 Calcitriol [Calcitriol -] 0.25 mcg PO DAILY 02/19/19 Calcium Acetate 667 mg PO TID 02/19/19 Carvedilol [Coreg -] 6.25 mg PO BID 02/19/19 Cholestyramine [Cholestyramine Resin] 1 gm PO DAILY 02/19/19 Nifedipine [Procardia Xl] 90 mg PO DAILY 02/19/19 Family Disease History - Family Disease History Family Disease History: CA: Father (lung ca), Mother (, lung ca), Sister (lung ca) Review of Systems - Review of Systems Constitutional: reports: Fever, Weakness Eyes: reports: No Symptoms HENT: reports: No Symptoms Neck: reports: No Symptoms Cardiovascular: reports: No Symptoms Respiratory: reports: No Symptoms Gastrointestinal: reports: No Symptoms Genitourinary: reports: No Symptoms Musculoskeletal: reports: Muscle Weakness Integumentary: reports: No Symptoms Neurological: reports: No Symptoms Endocrine: reports: No Symptoms Hematology/Lymphatic: reports: No Symptoms Psychiatric: reports: No Symptoms Physical Exam Vital Signs: Vital Signs Temperature 98.5 F 04/18/19 08:01 Pulse Rate 99 H 04/18/19 08:01 Respiratory Rate 04/18/19 08:01 Blood Pressure 170/68 04/18/19 08:01 O2 Sat by Pulse Oximetry (%) 98 04/17/19 21:00 Constitutional: Yes: No Distress, Calm HENT: Yes: Other (dialysis cath chest) Cardiovascular: Yes: Regular Rate and Rhythm Respiratory: Yes: Regular, CTA Bilaterally Gastrointestinal: Yes: Normal Bowel Sounds, Soft Musculoskeletal: Yes: WNL Extremities: Yes: WNL Neurological: Yes: Alert, Oriented Psychiatric: Yes: Alert, Oriented Labs: CBC, BMP 04/17/19 10:28 04/17/19 19:15 Imaging - Results Chest X-ray: Report Reviewed, Image Reviewed X-ray: Report Reviewed, Image Reviewed Assessment/Plan patient coming in with fall and spiking fever on dialysis the site of central cath looks good,no tenderness noted blood cx have been ordered i am going to also order urine cx will wait for all results at the moment i am going to hold off on starting abx close watch if she spikes fever again then cx from the central line also
[2019-04-18] MEDS: AMITRIPTYLINE HCL 25 MG TABLET (FP) PO SCH (21:58)
[2019-04-18] MEDS: ATORVASTATIN CA 10 MG TABLET (FP) PO SCH (21:58)
[2019-04-18] MEDS ORDERED: AMITRIPTYLINE HCL 25 MG TABLET (FP) PO SCH (22:09)
--- NOTE | 2019-04-18 22:50 | PN ---
Progress Note (short form) - Note Progress Note: Current Medications Acetaminophen (Tylenol -) 650 mg PO Q6H PRN PRN Reason: FEVER Last Admin: 04/18/19 00:31 Dose: 650 mg Alprazolam (Xanax -) 0.25 mg PO BID PRN PRN Reason: ANXIETY Last Admin: 04/18/19 21:58 Dose: 0.25 mg Amitriptyline HCl (Elavil -) 50 mg PO HS [facility] Aspirin (Asa -) 81 mg PO DAILY [facility] Last Admin: 04/18/19 09:45 Dose: 81 mg Atorvastatin Calcium (Lipitor -) 10 mg PO HS [facility] Last Admin: 04/18/19 21:58 Dose: 10 mg Calcitriol (Rocaltrol -) 0.25 mcg PO DAILY [facility] Last Admin: 04/18/19 09:49 Dose: 0.25 mcg Calcium Acetate (Phoslo -) 667 mg PO TIDCM [facility] Last Admin: 04/18/19 17:28 Dose: 667 mg Carvedilol (Coreg -) 6.25 mg PO BID [facility] Last Admin: 04/18/19 21:58 Dose: 6.25 mg Cholestyramine Resin (Questran Light Packet -) 4 gm PO BIDWM [facility] Heparin Sodium (Porcine) (Heparin -) 5,000 unit SQ BID [facility] Last Admin: 04/18/19 21:58 Dose: 5,000 unit Insulin Aspart (Novolog Vial Sliding Scale -) 1 vial SQ [facility]; Protocol Last Admin: 04/18/19 22:00 Dose: Not Given Nifedipine (Procardia Xl -) 90 mg PO DAILY [facility] Last Admin: 04/18/19 09:46 Dose: 90 mg Last Vital Signs Temp Pulse Resp BP Pulse Ox 98.8 F 73 17 145/61 98 04/18/19 22:00 04/18/19 22:00 04/18/19 22:00 04/18/19 22:00 04/18/19 09:00 lungs clear heart reg abd soft nontender ext edema CBC, BMP 04/17/19 10:28 IMP esrd s/p fall fever spike being worked up Plan- being dialyzed today to continue on the monday schedule next hd on monday
[2019-04-19] MEDS: INSULIN SLIDING SCALE (NOVOLOG) 1 VIAL SQ SCH ×4 (06:45→21:47)
--- NOTE | 2019-04-19 09:11 | PN ---
Progress Note, Physician History of Present Illness: patient stable dong well no fevers awaiting for urine cx blood negative - Current Medication List Current Medications: Active Medications Acetaminophen (Tylenol -) 650 mg PO Q6H PRN PRN Reason: FEVER Last Admin: 04/18/19 00:31 Dose: 650 mg Alprazolam (Xanax -) 0.25 mg PO BID PRN PRN Reason: ANXIETY Last Admin: 04/18/19 21:58 Dose: 0.25 mg Amitriptyline HCl (Elavil -) 50 mg PO [facility] Aspirin (Asa -) 81 mg PO DAILY [facility] Last Admin: 04/18/19 09:45 Dose: 81 mg Atorvastatin Calcium (Lipitor -) 10 mg PO HS [facility] Last Admin: 04/18/19 21:58 Dose: 10 mg Calcitriol (Rocaltrol -) 0.25 mcg PO DAILY [facility] Last Admin: 04/18/19 09:49 Dose: 0.25 mcg Calcium Acetate (Phoslo -) 667 mg PO TIDCM [facility] Last Admin: 04/18/19 17:28 Dose: 667 mg Carvedilol (Coreg -) 6.25 mg PO BID [facility] Last Admin: 04/18/19 21:58 Dose: 6.25 mg Cholestyramine Resin (Questran Light Packet -) 4 gm PO BIDWM [facility] Heparin Sodium (Porcine) (Heparin -) 5,000 unit SQ BID [facility] Last Admin: 04/18/19 21:58 Dose: 5,000 unit Insulin Aspart (Novolog Vial Sliding Scale -) 1 vial SQ [facility]; Protocol Last Admin: 04/19/19 06:45 Dose: Not Given Nifedipine (Procardia Xl -) 90 mg PO DAILY [facility] Last Admin: 04/18/19 09:46 Dose: 90 mg - Objective Vital Signs: Vital Signs Temperature 98.8 F 04/18/19 22:00 Pulse Rate 73 04/18/19 22:00 Respiratory Rate 17 04/18/19 22:00 Blood Pressure 145/61 04/18/19 22:00 O2 Sat by Pulse Oximetry (%) 97 04/18/19 21:00 Constitutional: Yes: No Distress, Calm Cardiovascular: Yes: S1, S2 Respiratory: Yes: Regular, CTA Bilaterally Gastrointestinal: Yes: Normal Bowel Sounds, Soft Musculoskeletal: Yes: WNL Extremities: Yes: WNL Neurological: Yes: Alert, Oriented Psychiatric: Yes: Alert, Oriented Labs: CBC, BMP 04/17/19 10:28 04/17/19 19:15 Assessment/Plan esrd fall weakness plan await for urine cx continue to monitor dialysis rest as per the team
[2019-04-19] MEDS ORDERED: PT OWN MED DRAWER 7, Y5N ONE (09:22)
--- NOTE | 2019-04-19 09:34 | DS ---
Physical Examination Vital Signs: Vital Signs Temperature 98.8 F 04/18/19 22:00 Pulse Rate 73 04/18/19 22:00 Respiratory Rate 17 04/18/19 22:00 Blood Pressure 145/61 04/18/19 22:00 O2 Sat by Pulse Oximetry (%) 97 04/18/19 21:00 Findings/Remarks: in bed NAD VSS afebrile > 24H, feels well no fever/chills no cough no rash no dysuria, HD cath site NL all blood cultures negative; UCx contam Constitutional: Yes: No Distress, Calm Eyes: Yes: Conjunctiva Clear HENT: Yes: Atraumatic Neck: Yes: Supple Cardiovascular: Yes: Regular Rate and Rhythm Respiratory: Yes: CTA Bilaterally Gastrointestinal: Yes: Soft. No: Tenderness Renal/: No: Hematuria Musculoskeletal: No: Joint Stiffness, Joint Swelling Extremities: No: Cold, Cool Edema: No Integumentary: No: Rash, Venous Stasis Changes Neurological: Yes: WNL, Alert, Oriented, Weakness (general weakness) ...Motor Strength: WNL Psychiatric: Yes: WNL, Alert, Oriented. No: Agitated, Suicidal Ideation Labs: CBC, BMP 04/17/19 10:28 04/17/19 19:15 Discharge Summary Reason For Visit: END STAGE RENAL DISEASE Current Active Problems ESRD (end stage renal disease) (Acute) Missed dialysis (Acute) Procedures: Principal: 83 YOF ASHD HTN CRF ESRD/HD PVD s/p fall at home general weakness missed dyalisis at home Other Procedures: had one episode of low grade temp but all cultures negative and no signs of infection, seen by ID no ATB; Hospital Course: dyalized x2 per renal improved DC to SNF for PT; f/u as advised close f/u if fever again to reasses the need for ATB Condition: Improved - Instructions Diet, Activity, Other Instructions: f/u PCP in 1-2 weeks after DC from NH / SNF f/u GI cardiology and renal as advised; HD per renal falls precautions; RTER if worse or recurrent c/o Referrals: Angela Barahona [Primary Care Provider] - Sonya Zuniga DO [Staff Physician] - Quentin Goyal MD [Staff Physician] - Oswaldo Lam MD [Staff Physician] - Disposition: [facility] - Home Medications Comprehensive Discharge Medication List: Ambulatory Orders Alprazolam [Xanax] 0.25 mg PO BID PRN 02/19/19 Amitriptyline HCl [Elavil -] 25 mg PO HS 02/19/19 Aspirin [ASA -] 81 mg PO DAILY 02/19/19 Atorvastatin Ca [Lipitor] 10 mg PO HS 02/19/19 Calcitriol [Calcitriol -] 0.25 mcg PO DAILY 02/19/19 Calcium Acetate 667 mg PO TID 02/19/19 Carvedilol [Coreg -] 6.25 mg PO BID 02/19/19 Cholestyramine [Cholestyramine Resin] 1 gm PO DAILY 02/19/19 Nifedipine [Procardia Xl] 90 mg PO DAILY 02/19/19 Acetaminophen [Tylenol .Regular Strength -] 650 mg PO Q6H PRN tablet 04/19/19 Heparin - 5,000 unit SQ BID vial 04/19/19
[2019-04-19] MEDS: ALPRAZolam 0.25 MG TABLET PO PRN ×2 (10:47→23:03)
[2019-04-19] MEDS: CHOLESTYRAMINE/ASPARTAME 4 GM PACKET PO SCH ×2 (10:48→18:06)
[2019-04-19] MEDS: CALCIUM ACETATE 667 MG CAPSULE (FP) PO SCH ×3 (10:48→18:06)
[2019-04-19] MEDS: CALCITRIOL 0.25 MCG CAPSULE (FP) PO SCH (10:48)
[2019-04-19] MEDS: HEPARIN NA (PORCINE) 5,000 UNITS/ML 1ML VIAL SQ SCH ×2 (10:48→21:41)
[2019-04-19] MEDS: ASPIRIN 81 MG CHEWABLE TABLETS PO SCH (10:49)
[2019-04-19] MEDS: NIFEdipine E.R. 90 MG TABLET (FP) PO SCH (10:53)
[2019-04-19] MEDS: CARVEDILOL 6.25 MG TABLET (FP) PO SCH ×2 (10:53→21:41)
--- NOTE | 2019-04-19 15:40 | PN ---
Progress Note (short form) - Note Progress Note: Current Medications Acetaminophen (Tylenol -) 650 mg PO Q6H PRN PRN Reason: FEVER Last Admin: 04/18/19 00:31 Dose: 650 mg Alprazolam (Xanax -) 0.25 mg PO BID PRN PRN Reason: ANXIETY Last Admin: 04/19/19 10:47 Dose: 0.25 mg Amitriptyline HCl (Elavil -) 50 mg PO HS [facility] Aspirin (Asa -) 81 mg PO DAILY [facility] Last Admin: 04/19/19 10:49 Dose: 81 mg Atorvastatin Calcium (Lipitor -) 10 mg PO HS [facility] Last Admin: 04/18/19 21:58 Dose: 10 mg Calcitriol (Rocaltrol -) 0.25 mcg PO DAILY [facility] Last Admin: 04/19/19 10:48 Dose: 0.25 mcg Calcium Acetate (Phoslo -) 667 mg PO TIDCM [facility] Last Admin: 04/19/19 13:06 Dose: 667 mg Carvedilol (Coreg -) 6.25 mg PO BID [facility] Last Admin: 04/19/19 10:53 Dose: 6.25 mg Cholestyramine Resin (Questran Light Packet -) 4 gm PO BIDWM [facility] Last Admin: 04/19/19 10:48 Dose: 4 gm Heparin Sodium (Porcine) (Heparin -) 5,000 unit SQ BID [facility] Last Admin: 04/19/19 10:48 Dose: 5,000 unit Insulin Aspart (Novolog Vial Sliding Scale -) 1 vial SQ [facility]; Protocol Last Admin: 04/19/19 12:28 Dose: Not Given Nifedipine (Procardia Xl -) 90 mg PO DAILY [facility] Last Admin: 04/19/19 10:53 Dose: 90 mg Last Vital Signs Temp Pulse Resp BP Pulse Ox 98 F 69 20 142/60 97 04/19/19 13:52 04/19/19 13:52 04/19/19 13:52 04/19/19 13:52 04/19/19 09:00 lungs clear heart reg abd soft nontender ext edema CBC, BMP 04/17/19 10:28 IMP esrd s/p fall no injury Plan- next hd on monday
[2019-04-19] MEDS ORDERED: SODIUM CHLORIDE 250 ML IV PRN (15:41)
[2019-04-19] MEDS: ATORVASTATIN CA 10 MG TABLET (FP) PO SCH (22:04)
[2019-04-20] MEDS: INSULIN SLIDING SCALE (NOVOLOG) 1 VIAL SQ SCH ×2 (06:13→11:00)
[2019-04-20 08:58] VITALS: TEMP 98
[2019-04-20] MEDS: ALPRAZolam 0.25 MG TABLET PO PRN (09:16)
[2019-04-20] MEDS: CHOLESTYRAMINE/ASPARTAME 4 GM PACKET PO SCH (09:21)
[2019-04-20] MEDS: CALCIUM ACETATE 667 MG CAPSULE (FP) PO SCH ×2 (09:21→13:05)
--- NOTE | 2019-04-20 11:51 | PN ---
Progress Note, Physician Chief Complaint: feels better no new c/o; being dyalized today then will go home (per pt and CM no SNF allowed by her insurance at this point) will have home VNS PT - Current Medication List Current Medications: Active Medications Acetaminophen (Tylenol -) 650 mg PO Q6H PRN PRN Reason: FEVER Last Admin: 04/18/19 00:31 Dose: 650 mg Alprazolam (Xanax -) 0.25 mg PO BID PRN PRN Reason: ANXIETY Last Admin: 04/20/19 09:16 Dose: 0.25 mg Amitriptyline HCl (Elavil -) 50 mg PO HS [facility] Last Admin: 04/19/19 21:35 Dose: 50 mg Aspirin (Asa -) 81 mg PO DAILY [facility] Last Admin: 04/19/19 10:49 Dose: 81 mg Atorvastatin Calcium (Lipitor -) 10 mg PO HS [facility] Last Admin: 04/19/19 22:04 Dose: 10 mg Calcitriol (Rocaltrol -) 0.25 mcg PO DAILY [facility] Last Admin: 04/19/19 10:48 Dose: 0.25 mcg Calcium Acetate (Phoslo -) 667 mg PO TIDCM [facility] Last Admin: 04/20/19 09:21 Dose: Not Given Carvedilol (Coreg -) 6.25 mg PO BID [facility] Last Admin: 04/19/19 21:41 Dose: 6.25 mg Cholestyramine Resin (Questran Light Packet -) 4 gm PO BIDWM [facility] Last Admin: 04/20/19 09:21 Dose: Not Given Heparin Sodium (Porcine) (Heparin -) 5,000 unit SQ BID [facility] Last Admin: 04/19/19 21:41 Dose: 5,000 unit Sodium Chloride (Normal Saline -) 250 mls @ 3,000 mls/hr IV PRN PRN PRN Reason: Hypotension during Dialysis Stop: 04/20/19 15:41 Insulin Aspart (Novolog Vial Sliding Scale -) 1 vial SQ [facility]; Protocol Last Admin: 04/20/19 06:13 Dose: Not Given Nifedipine (Procardia Xl -) 90 mg PO DAILY [facility] Last Admin: 04/19/19 10:53 Dose: 90 mg - Objective Vital Signs: Vital Signs Temperature 98.0 F 04/20/19 08:35 Pulse Rate 68 04/20/19 11:10 Respiratory Rate 18 04/20/19 11:10 Blood Pressure 153/62 04/20/19 11:10 O2 Sat by Pulse Oximetry (%) 97 04/20/19 09:00 Constitutional: Yes: No Distress, Calm Eyes: Yes: Conjunctiva Clear HENT: Yes: Atraumatic Neck: Yes: Supple Cardiovascular: Yes: Regular Rate and Rhythm Respiratory: Yes: CTA Bilaterally Gastrointestinal: Yes: Soft. No: Tenderness Genitourinary: No: Hematuria Musculoskeletal: No: Joint Stiffness, Joint Swelling Extremities: No: Cold, Cool, Cyanosis Edema: No Integumentary: No: Rash, Venous Stasis Changes Neurological: Yes: WNL, Alert, Oriented ...Motor Strength: WNL Psychiatric: Yes: WNL, Alert, Oriented. No: Agitated, Suicidal Ideation Labs: CBC, BMP 04/17/19 10:28 04/17/19 19:15 - ....Imaging Other: Report Reviewed Assessment/Plan 83 Y F, with PMH of ESRD (dialysis TThSa), COPD, HTN, PVD, TOE osteomyelitis in the past, s/p fall on her left hip/buttox. Missed dyalisis. Anxiety depression. Smoker. hips xrays no fractures dyalisis per renal fever r/o sepsis ID eval; check cultures; xanax prn; elavil; falls pfx; PT rehab - at home d/w pt and staff
[2019-04-20] MEDS ORDERED: PT OWN MED DRAWER 7, Y5N ONE (12:01)
[2019-04-20 12:19] VITALS: PULSE 66
[2019-04-20 13:05] VITALS: BP 171/73
[2019-04-20] MEDS: ASPIRIN 81 MG CHEWABLE TABLETS PO SCH (13:06)
[2019-04-20] MEDS: NIFEdipine E.R. 90 MG TABLET (FP) PO SCH (13:06)
[2019-04-20] MEDS: HEPARIN NA (PORCINE) 5,000 UNITS/ML 1ML VIAL SQ SCH (13:06)
[2019-04-20] MEDS: CALCITRIOL 0.25 MCG CAPSULE (FP) PO SCH (13:06)
[2019-04-20] MEDS: CARVEDILOL 6.25 MG TABLET (FP) PO SCH (13:06)
--- NOTE | 2019-04-20 13:19 | PN ---
Progress Note, Physician History of Present Illness: Pt states she feels well. Afebrile without distress. No complaints. Denies SOB/ cough/CP/Abd pain/n/v/d, or dysuria. - Current Medication List Current Medications: Active Medications Acetaminophen (Tylenol -) 650 mg PO Q6H PRN PRN Reason: FEVER Last Admin: 04/18/19 00:31 Dose: 650 mg Alprazolam (Xanax -) 0.25 mg PO BID PRN PRN Reason: ANXIETY Last Admin: 04/20/19 09:16 Dose: 0.25 mg Amitriptyline HCl (Elavil -) 50 mg PO HS [facility] Last Admin: 04/19/19 21:35 Dose: 50 mg Aspirin (Asa -) 81 mg PO DAILY [facility] Last Admin: 04/20/19 13:06 Dose: 81 mg Atorvastatin Calcium (Lipitor -) 10 mg PO HS [facility] Last Admin: 04/19/19 22:04 Dose: 10 mg Calcitriol (Rocaltrol -) 0.25 mcg PO DAILY [facility] Last Admin: 04/20/19 13:06 Dose: 0.25 mcg Calcium Acetate (Phoslo -) 667 mg PO TIDCM [facility] Last Admin: 04/20/19 13:05 Dose: 667 mg Carvedilol (Coreg -) 6.25 mg PO BID [facility] Last Admin: 04/20/19 13:06 Dose: 6.25 mg Cholestyramine Resin (Questran Light Packet -) 4 gm PO BIDWM [facility] Last Admin: 04/20/19 09:21 Dose: Not Given Heparin Sodium (Porcine) (Heparin -) 5,000 unit SQ BID [facility] Last Admin: 04/20/19 13:06 Dose: Not Given Sodium Chloride (Normal Saline -) 250 mls @ 3,000 mls/hr IV PRN PRN PRN Reason: Hypotension during Dialysis Stop: 04/20/19 15:41 Insulin Aspart (Novolog Vial Sliding Scale -) 1 vial SQ [facility]; Protocol Last Admin: 04/20/19 11:00 Dose: Not Given Nifedipine (Procardia Xl -) 90 mg PO DAILY [facility] Last Admin: 04/20/19 13:06 Dose: 90 mg - Objective Vital Signs: Vital Signs Temperature 98.0 F 04/20/19 08:35 Pulse Rate 66 04/20/19 12:18 Respiratory Rate 18 04/20/19 12:18 Blood Pressure 171/73 H 04/20/19 13:03 O2 Sat by Pulse Oximetry (%) 97 04/20/19 09:00 Constitutional: Yes: No Distress, Calm Cardiovascular: Yes: Regular Rate and Rhythm Respiratory: Yes: Regular Gastrointestinal: Yes: Normal Bowel Sounds, Soft Extremities: Yes: WNL Integumentary: Yes: WNL Neurological: Yes: Alert, Oriented Labs: CBC, BMP 04/17/19 10:28 04/17/19 19:15 Microbiology 04/18/19 11:21 Blood - Peripheral Venous Blood Culture - Preliminary NO GROWTH OBTAINED AFTER 48 HOURS, INCUBATION TO CONTINUE FOR 3 DAYS. 04/18/19 11:21 Blood - Peripheral Venous Blood Culture - Preliminary NO GROWTH OBTAINED AFTER 48 HOURS, INCUBATION TO CONTINUE FOR 3 DAYS. 04/18/19 00:00 Blood - Peripheral Venous Blood Culture - Preliminary NO GROWTH OBTAINED AFTER 48 HOURS, INCUBATION TO CONTINUE FOR 3 DAYS. 04/18/19 00:00 Blood - Peripheral Venous Blood Culture - Preliminary NO GROWTH OBTAINED AFTER 48 HOURS, INCUBATION TO CONTINUE FOR 3 DAYS. 04/18/19 14:30 Urine - Urine Clean Catch Urine Culture - Final Contaminated: Please Repeat Problem List - Problems (1) ESRD (end stage renal disease) Code(s): N18.6 - END STAGE RENAL DISEASE (2) Fall Code(s): W19.XXXA - UNSPECIFIED FALL, INITIAL ENCOUNTER Qualifiers: Encounter type: initial encounter Qualified Code(s): W19.XXXA - Unspecified fall, initial encounter (3) Fever Code(s): R50.9 - FEVER, UNSPECIFIED Qualifiers: Fever type: unspecified Qualified Code(s): R50.9 - Fever, unspecified Assessment/Plan s/p Fevers ESRD Fall -- blood cultures neg, urine cx contaminated , pt without dysuria -- Fevers appear to have resolved, pt feels well -- continue hold off on antibiotics -- Pt instructed to seek medical attention if fever returns or does not feel well if d/c home
--- NOTE | 2019-04-20 21:11 | PN ---
Progress Note (short form) - Note Progress Note: seen on dialysis treatment uneventful Current Medications Acetaminophen (Tylenol -) 650 mg PO Q6H PRN PRN Reason: FEVER Last Admin: 04/18/19 00:31 Dose: 650 mg Alprazolam (Xanax -) 0.25 mg PO BID PRN PRN Reason: ANXIETY Last Admin: 04/19/19 10:47 Dose: 0.25 mg Amitriptyline HCl (Elavil -) 50 mg PO HS [facility] Aspirin (Asa -) 81 mg PO DAILY [facility] Last Admin: 04/19/19 10:49 Dose: 81 mg Atorvastatin Calcium (Lipitor -) 10 mg PO HS [facility] Last Admin: 04/18/19 21:58 Dose: 10 mg Calcitriol (Rocaltrol -) 0.25 mcg PO DAILY [facility] Last Admin: 04/19/19 10:48 Dose: 0.25 mcg Calcium Acetate (Phoslo -) 667 mg PO TIDCM [facility] Last Admin: 04/19/19 13:06 Dose: 667 mg Carvedilol (Coreg -) 6.25 mg PO BID [facility] Last Admin: 04/19/19 10:53 Dose: 6.25 mg Cholestyramine Resin (Questran Light Packet -) 4 gm PO BIDWM [facility] Last Admin: 04/19/19 10:48 Dose: 4 gm Heparin Sodium (Porcine) (Heparin -) 5,000 unit SQ BID [facility] Last Admin: 04/19/19 10:48 Dose: 5,000 unit Insulin Aspart (Novolog Vial Sliding Scale -) 1 vial SQ [facility]; Protocol Last Admin: 04/19/19 12:28 Dose: Not Given Nifedipine (Procardia Xl -) 90 mg PO DAILY [facility] Last Admin: 04/19/19 10:53 Dose: 90 mg Last Vital Signs Temp Pulse Resp BP Pulse Ox 98.0 F 66 18 171/73 H 97 04/20/19 08:35 04/20/19 12:18 04/20/19 12:18 04/20/19 13:03 04/20/19 09:00 lungs clear heart reg abd soft nontender ext edema CBC, BMP 04/17/19 10:28 04/17/19 19:15 CBC, BMP 04/17/19 10:28 IMP esrd s/p fall no injury Plan- next hd on monday
== END 2019-04-20 15:08 | DRG 947 ==
LOC: JER 09:45 → JERBED 12:31 → J7W 17:58
PROVIDERS: ADMIT Specialist; ATTEND Specialist
PROC: 5A1D70Z Performance of Urinary Filtration, Intermittent, Less than 6 Hours Per Day (ICD-10-PCS; principal; 2019-04-17)
DX: R53.1 Weakness (principal); N18.6 End stage renal disease; I12.0 Hypertensive chronic kidney disease with stage 5 chronic kidney disease or end stage renal disease; I44.5 Left posterior fascicular block; J44.9 Chronic obstructive pulmonary disease, unspecified; R50.9 Fever, unspecified; I73.9 Peripheral vascular disease, unspecified; F32.9 Major depressive disorder, single episode, unspecified; F41.9 Anxiety disorder, unspecified; Z99.2 Dependence on renal dialysis; Z89.421 Acquired absence of other right toe(s); F17.210 Nicotine dependence, cigarettes, uncomplicated; Z88.0 Allergy status to penicillin
CPT/HCPCS: 36415; 71045-TC-FY; 73523-TC-FY; 80053; 82550; 82565; 82962; 83735; 84484; 84520; 85025; 86803; 87040; 87086; 87340; 93005; 93010; 97116-GP; 97161-GP; 99281-25; J1644

== ENCOUNTER 2019-05-11 06:53 | Inpatient (IN) | payer OTHER ==
[2019-05-11 07:23] VITALS: BMI 20.3
--- NOTE | 2019-05-11 07:44 | PDOC ---
History of Present Illness - General Chief Complaint: Weakness Stated Complaint: WEAKNESS Time Seen by Provider: 05/11/19 07:44 History Source: Patient Exam Limitations: No Limitations - History of Present Illness Initial Comments: 83 year old female with PMH HTN, HLD, COPD, ESRD on HD (//; R chest access ), chronic diarrhea presented to ED for lightheadedness occuring today. Pt reported she went missed dialysis yesterday 2/2 personal issues, but planned to go today at 1030AM. She reported she went to sleep in her normal health, and when she awoke she felt lightheaded, generally weak. Pt denied chest pain, shortness of breath, fall, head injury, nausea, vomiting, diarrhea, abdominal pain. Pt reported she has felt similar symptoms prior when her potassium was high. Pt requesting morning Cholestyramine 1 gm PO DAILY. ROS General: admitted to generalized weakness. denied fever, chills. HEENT: denied sore throat, rhinorrhea, ear pain. Cardiovascular: admitted to pre-syncope. denied chest pain, palpitations, syncope, diaphoresis. Respiratory: denied shortness of breath, cough, sputum production, hemoptysis. Gastrointestinal: denied abdominal pain, nausea, vomiting, diarrhea, constipation, blood in stool. Genitourinary: denied dysuria, increased urinary frequency, hematuria, urinary incontinence, flank pain. Back: denied back pain. Musculoskeletal: denied joint pain, muscle pain, joint swelling. Neurological: denied headache, numbness, tingling, weakness. Integumentary: denied rash, laceration, abrasion. Hematologic/Lymphatic: denied bruising or bleeding. PE Constitutional: Well-nourished, Well-developed, appearing stated age. HEENT: head is normocephalic, atraumatic. EOMI. PERRLA. Neck: supple. Full ROM. Cardiovascular: regular heart rhythm. no murmurs. no pericardial friction rub. Chest: right chest port. Respiratory: left basilar crackles. clear to auscultation right lung chu. speaking full sentences. no labored breathing. no retractions. Gastrointestinal: soft, nontender. normal bowel sounds. no rebound, guarding, masses. Extremities: peripheral pulses intact. no lower extremity edema. Neurological: CN 2-12 grossly intact. moves all four extremities. Psych: awake, alert, oriented x3. follows commands. answers questions appropriately. Past History - Past Medical History Allergies/Adverse Reactions: Allergies Allergy/AdvReac Type Severity Reaction Status Date / Time iodine Allergy Rash Verified 05/11/19 07:19 penicillin V Allergy Verified 05/11/19 07:19 shellfish derived Allergy Rash Verified 05/11/19 07:19 vancomycin Allergy Verified 05/11/19 07:19 azithromycin AdvReac Verified 05/11/19 07:19 Home Medications: Ambulatory Orders Alprazolam [Xanax] 0.25 mg PO BID PRN 02/19/19 Amitriptyline HCl [Elavil -] 25 mg PO HS 02/19/19 Aspirin [ASA -] 81 mg PO DAILY 02/19/19 Atorvastatin Ca [Lipitor] 10 mg PO HS 02/19/19 Calcitriol [Calcitriol -] 0.25 mcg PO DAILY 02/19/19 Calcium Acetate 667 mg PO TID 02/19/19 Carvedilol [Coreg -] 6.25 mg PO BID 02/19/19 Cholestyramine [Cholestyramine Resin] 1 gm PO DAILY 02/19/19 Nifedipine [Procardia Xl] 90 mg PO DAILY 02/19/19 Acetaminophen [Tylenol .Regular Strength -] 650 mg PO Q6H PRN tablet 04/19/19 Heparin - 5,000 unit SQ BID vial 04/19/19 Anemia: Yes Asthma: Yes Cardiac Disorders: Yes (PAD,CAD) Dialysis: Yes (r chest access) GI Disorders: Yes (chronic diarrhea) HTN: Yes Hypercholesterolemia: Yes - Surgical History Cardiac Surgery: Yes (FEMORAL BYPASS) Cholecystectomy: Yes Orthopedic Surgery: Yes (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) - Family Disease History Family Disease History: CA: Father (lung), Brother, Sister - Immunization History Immunization Up to Date: Yes - Suicide/Smoking/Psychosocial Hx Smoking Status: Yes Smoking History: Current every day smoker Have you smoked in the past 12 months: Yes Number of Cigarettes Smoked Daily: 20 If you are a former smoker, when did you quit?: 08/10/2012 Cigars Per Day: 30 Information on smoking cessation initiated: No 'Breaking Loose' booklet given: 08/28/18 Hx Alcohol Use: No Drug/Substance Use Hx: No Substance Use Type: None Hx Substance Use Treatment: No *Physical Exam - Vital Signs Last Vital Signs Temp Pulse Resp BP Pulse Ox 97.8 F 78 16 154/74 100 05/11/19 07:16 05/11/19 07:16 05/11/19 07:16 05/11/19 07:16 05/11/19 07:16 ED Treatment Course - LABORATORY CBC & Chemistry Diagram: 05/11/19 08:00 05/11/19 09:10 - RADIOLOGY Radiograph Interpretation: CXR report: Name: CONG DOMINGUE[facility] DEPARTMENT OF RADIOLOGY Phys: Sari Douglas RESIDENT : 1935 Age: 83 Sex: F [facility] Acct: [id number] Loc: [address] Exam Date: 05/11/19 Status: Q[place] [id number] Unit Number: [id number] EXAM#: TYPE/EXAM: RESULT: [id number] RAD/CHEST X-RAY PORTABLE* Portable chest: Presyncopal episode. Check right central catheter Single view of the chest has been submitted. Since 04/09/2019 there is no significant change. There are clear lungs, prominent knob, normal dorothea and normal heart. Right jugular line is present and the tip is in the right atrium. There is no sign of a pneumothorax. There are bilateral arm calcifications. The soft tissues are intact. Impression : No acute pathology. No significant change since prior study. Right jugular line with tip in right atrium. No pneumothorax Reported By: Beau Zavala MD 05/11/19 0836 Medical Decision Making - Medical Decision Making 83 year old female with above PMH presented to ED for pre-syncope/ lightheadedness/generalized weakness. Initial Vital Signs Temp Pulse Resp BP Pulse Ox 97.8 F 78 16 154/74 100 05/11/19 07:16 05/11/19 07:16 05/11/19 07:16 05/11/19 07:16 05/11/19 07:16 Afebrile. No tachycardia. No tachypnea. Hypertensive. No hypoxia on room air. Labs ordered: CBC, CMP, Mag, trop Imaging ordered: CXR Medications ordered: none EKG performed at 0804: rate 78, regular rhythm, normal axis, normal intervals, no acute ST changes. BGM 99 05/11/19 08:59 CXR report: Name: BENNETT DOMINGUEZIA DEPARTMENT OF RADIOLOGY Phys: Sari Douglas RESIDENT : 1935 Age: 83 Sex: F [facility] Acct: [id number] Loc: [address] Exam Date: 05/11/19 Status: QIANA [id number] Unit Number: [id number] EXAM#: TYPE/EXAM: RESULT: RAD/CHEST X-RAY PORTABLE* Portable chest: Presyncopal episode. Check right central catheter Single view of the chest has been submitted. Since 04/09/2019 there is no significant change. There are clear lungs, prominent knob, normal dorothea and normal heart. Right jugular line is present and the tip is in the right atrium. There is no sign of a pneumothorax. There are bilateral arm calcifications. The soft tissues are intact. Impression : No acute pathology. No significant change since prior study. Right jugular line with tip in right atrium. No pneumothorax Reported By: Beau Zavala MD 05/11/19 0854 05/11/19 09:02 05/11/19 09:59 CMP Sodium 136 mmol/L (136-145) 05/11/19 09:10 Potassium 7.2 mmol/L (3.5-5.1) H* 05/11/19 09:10 Chloride 106 mmol/L (98-107) 05/11/19 09:10 Carbon Dioxide 17 mmol/L (21-32) L 05/11/19 09:10 Anion Gap 13 MMOL/L (8-16) 05/11/19 09:10 BUN 73.8 mg/dL (7-18) H 05/11/19 09:10 Creatinine 7.3 mg/dL (0.55-1.3) H 05/11/19 09:10 Est GFR (CKD-EPI)AfAm 5.53 05/11/19 09:10 Est GFR (CKD-EPI)NonAf 4.77 05/11/19 09:10 POC Glucometer 99 UNITS (80-120) 05/11/19 08:21 Random Glucose 84 mg/dL (74-106) 05/11/19 09:10 Calcium 7.7 mg/dL (8.5-10.1) L 05/11/19 09:10 Magnesium Cancelled 05/11/19 08:00 Total Bilirubin 0.3 mg/dL (0.2-1) 05/11/19 09:10 AST 18 U/L (15-37) 05/11/19 09:10 ALT 18 U/L (13-61) 05/11/19 09:10 Alkaline Phosphatase 77 U/L (45-117) 05/11/19 09:10 Troponin I Cancelled 05/11/19 08:00 Total Protein 6.8 g/dl (6.4-8.2) 05/11/19 09:10 Albumin 3.1 g/dl (3.4-5.0) L 05/11/19 09:10 Hyperkalemia. Medications ordered: albuterol nebulizer, insulin regular 10 units, 1 amp D50, calcium 05/11/19 10:07 Dr. 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 05/11/19 10:39 Urine Test Results Urine Color Yellow 05/11/19 10:20 Urine Appearance Clear 05/11/19 10:20 Urine pH 7.5 (5.0-8.0) 05/11/19 10:20 Ur Specific [place] 1.015 (1.010-1.035) 05/11/19 10:20 Urine Protein 3+ (NEGATIVE) H 05/11/19 10:20 Urine Glucose (UA) 1+ (NEGATIVE) H 05/11/19 10:20 Urine Ketones Negative (NEGATIVE) 05/11/19 10:20 Urine Blood Trace (NEGATIVE) 05/11/19 10:20 Urine Nitrite Negative (NEGATIVE) 05/11/19 10:20 Urine Bilirubin Negative (NEGATIVE) 05/11/19 10:20 Ur Leukocyte Esterase Negative (NEGATIVE) 05/11/19 10:20 Negative for UTI. Positive for proteinuria. Positive for glucosuria. Sign out given to Dr. Barahona, who agrees with plan for admission. Pending nephro consult for dialysis recommendations. 05/11/19 11:[address] Saldaña about the pt, he agreed with plan for care, pt to go to tele floor then have dialysis. He requested Lokelma to be given. Above ordered. *DC/Admit/Observation/Transfer Diagnosis at time of Disposition: Hyperkalemia, Missed dialysis, CKD (chronic kidney disease) - Discharge Dispostion Condition at time of disposition: Stable Decision to Admit order: Yes - Referrals Referrals: Angela Barahona [Primary Care Provider] - - Patient Instructions - Post Discharge Activity
[2019-05-11] MEDS ORDERED: CHOLESTYRAMINE/SUCROSE 4 GM PACKET PO ONE (08:07)
--- NOTE | 2019-05-11 08:26 | PDOC ---
Attending Attestation - Resident Resident Name: Sari Douglas - ED Attending Attestation I have performed the following: I have examined & evaluated the patient, The case was reviewed & discussed with the resident, I agree w/resident's findings & plan, Exceptions are as noted - HPI HPI: 05/11/19 08:20 Ms. Mckeon is an 83 yo F h/od female with PMH HTN, HLD, COPD, ESRD on HD (// ; R chest access), chronic diarrhea presented to ED for lightheadedness occurring today. Pt was unable to go to her regularly scheduled dialysis and rescheduled it for today She awoke this morning feeling lightheaded and generally weak. In the past, this has been due to potassium being high No chest pain, no shortness of breath No nausea, vomiting or diarhea - Physicial Exam PE: 05/11/19 08:19 Constitutional: Well-nourished, Well-developed, appearing stated age. HEENT: head is normocephalic, atraumatic. EOMI. PERRLA. Neck: supple. Full ROM. Cardiovascular: regular heart rhythm. no murmurs. no pericardial friction rub. Chest: right chest port. Respiratory: left basilar crackles. clear to auscultation right lung chu. speaking full sentences. Gastrointestinal: soft, nontender. normal bowel sounds. no rebound, guarding, masses. Extremities: peripheral pulses intact. no lower extremity edema. Neurological: CN 2-12 grossly intact. moves all four extremities. Psych: awake, alert, oriented x3. follows commands. answers questions appropriately. 05/11/19 08:23 - Critical Care Time Total Critical Care Time: 35 Critical Care Statement: The care of this patient involved high complexity decision making to prevent further life threatening deterioration of the patient 's condition and/or to evaluate & treat vital organ system(s) failure or risk of failure. - Medical Decision Making 05/11/19 08:24 83 yo F presenting with a complaint of lightheadedness, missed dialysis yesterday, Concerned about her potassium Will do Labs EKG CXR Re Assess 05/11/19 08:53 EKG : NSR rte of 78 bpm, axis nml, intervals nml, no st elevation or depression, precordial t waves prominent 05/11/19 10:42 Laboratory Tests 05/11/19 09:10 Sodium 136 Potassium 7.2 H* Chloride 106 Carbon Dioxide 17 L Anion Gap 13 BUN 73.8 H Creatinine 7.3 H Random Glucose 84 Troponin I < 0.02 call placed to Renal attending to arrange HD in the hospital Clinical impression: Lightheadedness Hyperkalemia ESRD on HD, missed dialysis session
[2019-05-11 08:30] LABS: EOS % 6.1 % (0-4.5); HEMATOCRIT 33.9 % (32.4-45.2); HEMOGLOBIN 11.1 GM/dL (10.7-15.3); LYMPH % 16.7 % (8-40); MCH 31.1 pg (25.7-33.7); MCHC 32.8 g/dl (32.0-36.0); MEAN CELL VOLUME 94.7 fl (80-96); MEAN PLT VOLUME 8.1 fl (7.5-11.1); MONO % 8.3 % (3.8-10.2); NEUT % 67.9 % (42.8-82.8); PLATELET COUNT 317 K/MM3 (134-434); RBC 3.58 M/mm3 (3.60-5.2); RDW 17.2 % (11.6-15.6); WHITE BLOOD COUNT 8.6 K/mm3 (4.0-10.0)
[2019-05-11 09:51] LABS: ALBUMIN 3.1 g/dl (3.4-5.0); ALK PHOS 77 U/L (45-117); ANION GAP 13 MMOL/L (8-16); BILIRUBIN,TOTAL 0.3 mg/dL (0.2-1); BLOOD UREA NITROGEN 73.8 mg/dL (7-18); CALCIUM 7.7 mg/dL (8.5-10.1); CHLORIDE 106 mmol/L (98-107); CO2 17 mmol/L (21-32); CREATININE 7.3 mg/dL (0.55-1.3); GLUCOSE,RANDOM 84 mg/dL (74-106); SGOT/AST 18 U/L (15-37); SGPT/ALT 18 U/L (13-61); SODIUM 136 mmol/L (136-145); TOT PROT 6.8 g/dl (6.4-8.2)
[2019-05-11 09:58] LABS: POTASSIUM 7.2 mmol/L (3.5-5.1)
[2019-05-11] MEDS ORDERED: DEXTROSE 50%-WATER - 25 GM/50 ML VIAL IVPUSH ONE (09:58)
[2019-05-11] MEDS ORDERED: ALBUTEROL SO4 0.5 % INH SOLN 2.5 MG/0.5 ML VIAL.NEB. NEB ONE (09:58)
[2019-05-11] MEDS ORDERED: INSULIN REGULAR HUMAN 100 UNITS/ML *VIAL IVPUSH ONE (09:58)
[2019-05-11] MEDS ORDERED: CALCIUM GLUCONATE 10% - 1,000 MG/10 ML VIAL IVPUSH ONE (09:59)
[2019-05-11] MEDS ORDERED: ALBUTEROL SO4 0.083% IH SOL 2.5 MG/3 ML VIAL.NEB. NEB ONE (10:08)
[2019-05-11] MEDS ORDERED: CALCIUM CHLORIDE 1 GM/10 ML *DISP.SYRIN ONE (10:08)
[2019-05-11] MEDS ORDERED: DEXTROSE 50%-WATER 25 GM/50 ML DISP.SYRIN ONE (10:08)
[2019-05-11 10:22] LABS: MAGNESIUM 2.3 mg/dL (1.8-2.4)
[2019-05-11] MEDS ORDERED: CALCIUM GLUCONATE 10% - 1,000 MG/10 ML VIAL ONE (10:29)
[2019-05-11 10:32] LABS: EPI CELLS 1.6 /HPF (0-5/HPF); HYALINE CASTS 2 /lpf (0-8); PH,URINE 7.5 (5.0-8.0); URINE APPEARANCE CLEAR; URINE BACTERIA 8.8 /hpf (NEGATIVE); URINE BILIRUBIN NEGATIVE (NEGATIVE); URINE COLOR YELLOW; URINE GLUCOSE (UA) 1+ (NEGATIVE); URINE KETONE NEGATIVE (NEGATIVE); URINE LEUK ESTERASE NEGATIVE (NEGATIVE); URINE NITRITE NEGATIVE (NEGATIVE); URINE PROTEIN 3+ (NEGATIVE); URINE RBC 0 /hpf (0-4); URINE UROBILINOGEN 0.2 mg/dL (0.2-1.0); URINE WBC 3 /hpf (0-5)
[2019-05-11] MEDS ORDERED: SODIUM ZIRCONIUM CYCLOSILICATE (LOKELMA) 5 GM PACKET PO ONE (11:19)
[2019-05-11 13:25] LABS: CALCIUM 9.6 mg/dL (8.5-10.1)
[2019-05-11 13:30] LABS: CREATININE 7.7 mg/dL (0.55-1.3); POTASSIUM 6.3 mmol/L (3.5-5.1)
[2019-05-11 13:45] LABS: ALBUMIN 3.1 g/dl (3.4-5.0); BILIRUBIN,TOTAL 0.4 mg/dL (0.2-1); TOT PROT 7.1 g/dl (6.4-8.2)
--- NOTE | 2019-05-11 14:20 | CONSULT ---
Consult Consult Specialty:: Nephrology Reason for Consultation:: ESRD - History of Present Illness Chief Complaint: malaise History of Present Illness: Pt is an 83 year old female with pmhx of esrd, htn, hld, copd, and diarrhea who presents to the ER with malaise. She missed her last HD on . She was found to be hyperkalemic. She follows with Dr Goyal for HD. She denies chest pain or palpitations. She denies fevers or chills. She says this is how she feels when her potassium is elevated. She is normally on a TTS schedule however says that she could make it on for personal reasons. She denies headache. - History Source History Provided By: Patient, Medical Record - Past Medical History Cardio/Vascular: Yes: HTN, Hyperlipdemia, Murmur, Other (PAD) Pulmonary: Yes: Asthma, COPD Hepatobiliary: Yes: Cholelithiasis, Choledocholithiasis Renal/: Yes: Renal Inusuff, Hemodialysis Infectious Disease: Yes: Other (history of osteomyelitis in the past) Endocrine: Yes: Diabetes Mellitus - Past Surgical History Past Surgical History: Yes: Amputation (1-st R toe amputation), Bypass (Right fem pop bypass) - Alcohol/Substance Use Hx Alcohol Use: No History of Substance Use: reports: None - Smoking History Smoking history: Current every day smoker Have you smoked in the past 12 months: Yes Aproximately how many cigarettes per day: 20 If you are a former smoker, when did you quit?: 08/10/2012 - Social History Usual Living Arrangement: Alone ADL: Independent 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, 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, 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 Travel: No Home Medications - Allergies Allergies/Adverse Reactions: Allergies Allergy/AdvReac Type Severity Reaction Status Date / Time iodine Allergy Rash Verified 05/11/19 07:19 penicillin V Allergy Verified 05/11/19 07:19 shellfish derived Allergy Rash Verified 05/11/19 07:19 vancomycin Allergy Verified 05/11/19 07:19 azithromycin AdvReac Verified 05/11/19 07:19 - Home Medications Home Medications: Ambulatory Orders Alprazolam [Xanax] 0.25 mg PO BID PRN 02/19/19 Amitriptyline HCl [Elavil -] 25 mg PO HS 02/19/19 Aspirin [ASA -] 81 mg PO DAILY 02/19/19 Atorvastatin Ca [Lipitor] 10 mg PO HS 02/19/19 Calcitriol [Calcitriol -] 0.25 mcg PO DAILY 02/19/19 Calcium Acetate 667 mg PO TID 02/19/19 Carvedilol [Coreg -] 6.25 mg PO BID 02/19/19 Cholestyramine [Cholestyramine Resin] 1 gm PO DAILY 02/19/19 Nifedipine [Procardia Xl] 90 mg PO DAILY 02/19/19 Acetaminophen [Tylenol .Regular Strength -] 650 mg PO Q6H PRN tablet 04/19/19 Family Medical History Family History: Denies Review of Systems - Review of Systems Constitutional: reports: Malaise Eyes: reports: No Symptoms HENT: reports: No Symptoms Neck: reports: No Symptoms Cardiovascular: reports: No Symptoms Respiratory: reports: No Symptoms Gastrointestinal: reports: No Symptoms Genitourinary: reports: No Symptoms Musculoskeletal: reports: No Symptoms Integumentary: reports: No Symptoms Neurological: reports: No Symptoms Endocrine: reports: No Symptoms Hematology/Lymphatic: reports: No Symptoms Psychiatric: reports: No Symptoms Physical Exam Vital Signs: Vital Signs Temperature 97.8 F 05/11/19 14:06 Pulse Rate 101 H 05/11/19 14:06 Respiratory Rate 20 05/11/19 14:06 Blood Pressure 183/71 H 05/11/19 14:06 O2 Sat by Pulse Oximetry (%) 99 05/11/19 12:50 Constitutional: Yes: Calm Eyes: Yes: Conjunctiva Clear HENT: Yes: Atraumatic Neck: Yes: Supple Cardiovascular: Yes: S1, S2 Respiratory: Yes: CTA Bilaterally Gastrointestinal: Yes: Soft Renal/: Yes: WNL Musculoskeletal: Yes: WNL Edema: No Neurological: Yes: Oriented Psychiatric: Yes: Oriented Labs: CBC, BMP 05/11/19 08:00 05/11/19 12:28 Laboratory Tests 05/11/19 05/11/19 05/11/19 08:00 09:10 10:20 WBC 8.6 Hgb 11.1 Sodium 136 Potassium 7.2 H* BUN 73.8 H Creatinine 7.3 H Urine Protein 3+ H Urine Blood Trace 05/11/19 12:28 WBC Hgb Sodium 137 Potassium 6.3 H* BUN 75.0 H Creatinine 7.7 H* Urine Protein Urine Blood Imaging - Results Chest X-ray: Report Reviewed Problem List - Problems (1) Hyperkalemia Code(s): E87.5 - HYPERKALEMIA (2) Missed dialysis Code(s): IWW6340 - (3) ESRD (end stage renal disease) Code(s): N18.6 - END STAGE RENAL DISEASE Assessment/Plan Impression 1. esrd 2. dm 3. anemia 4. htn 5. non compliance with HD schedule 6. copd 7. htn 8. hld Plan - will arrange for urgent bedside HD today - potassium treated medically as well in er until HD is set up - resume home meds - renal diet - discussed compliance with HD
[2019-05-11] MEDS ORDERED: SODIUM CHLORIDE 250 ML IV PRN (14:21)
--- NOTE | 2019-05-11 15:51 | HP ---
Admitting History and Physical - Primary Care Physician PCP: Jarrett Barahona - Admission Chief Complaint: Weakness History of Present Illness: Pt with ESRD on HD (/ / Mon), missed HD on and couldn't get a HD on Monday. This AM she felt to weak to go to HD center and came to ER; in ER she ws found to have a high K (7.2). History Source: Patient - Past Medical History Cardiovascular: Yes: HTN, Hyperlipdemia, Murmur, Other (PAD) Pulmonary: Yes: Asthma, COPD Hepatobiliary: Yes: Cholelithiasis, Choledocholithiasis Renal/: Yes: Renal Inusuff, Hemodialysis Heme/Onc: Yes: Anemia Infectious Disease: Yes: Other (history of osteomyelitis in the past) Endocrine: Yes: Diabetes Mellitus - Past Surgical History Past Surgical History: Yes: Amputation (1-st R toe amputation), Bypass (Right fem pop bypass) - Smoking History Smoking history: Current every day smoker Have you smoked in the past 12 months: Yes Aproximately how many cigarettes per day: 20 If you are a former smoker, when did you quit?: 08/10/2012 - Alcohol/Substance Use Hx Alcohol Use: No History of Substance Use: reports: None - Social History ADL: Independent 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, 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, 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 Travel: No Home Medications - Allergies Allergies/Adverse Reactions: Allergies Allergy/AdvReac Type Severity Reaction Status Date / Time iodine Allergy Rash Verified 05/11/19 07:19 penicillin V Allergy Verified 05/11/19 07:19 shellfish derived Allergy Rash Verified 05/11/19 07:19 vancomycin Allergy Verified 05/11/19 07:19 azithromycin AdvReac Verified 05/11/19 07:19 - Home Medications Home Medications: Ambulatory Orders Alprazolam [Xanax] 0.25 mg PO BID PRN 02/19/19 Amitriptyline HCl [Elavil -] 25 mg PO HS 02/19/19 Aspirin [ASA -] 81 mg PO DAILY 02/19/19 Atorvastatin Ca [Lipitor] 10 mg PO HS 02/19/19 Calcitriol [Calcitriol -] 0.25 mcg PO DAILY 02/19/19 Calcium Acetate 667 mg PO TID 02/19/19 Carvedilol [Coreg -] 6.25 mg PO BID 02/19/19 Cholestyramine [Cholestyramine Resin] 1 gm PO DAILY 02/19/19 Nifedipine [Procardia Xl] 90 mg PO DAILY 02/19/19 Acetaminophen [Tylenol .Regular Strength -] 650 mg PO Q6H PRN tablet 04/19/19 Review of Systems - Review of Systems Constitutional: denies: Chills, Fever Eyes: denies: Blind Spots, Double Vision HENT: denies: Ear Discharge, Nasal Congestion, Throat Pain Neck: denies: Pain on Movement, Stiffness Cardiovascular: denies: Chest Pain, Edema, Palpitations Respiratory: denies: Cough, SOB, Wheezing Gastrointestinal: reports: Nausea. denies: Abdominal Pain, Vomiting Genitourinary: denies: Burning, Discharge Musculoskeletal: denies: Back Pain, Muscle Pain Integumentary: denies: Bruising, Eczema, Rash Neurological: reports: Weakness. denies: Change in LOC, Change in Speech Endocrine: denies: Excessive Sweating, Intolerance to Cold Hematology/Lymphatic: denies: Easily Bruised, Excessive Bleeding Psychiatric: denies: Anxiety, Depression Physical Examination Vital Signs: Vital Signs Temperature 97.8 F 05/11/19 14:06 Pulse Rate 101 H 05/11/19 14:06 Respiratory Rate 20 05/11/19 14:09 Blood Pressure 183/71 H 05/11/19 14:06 O2 Sat by Pulse Oximetry (%) 98 05/11/19 14:09 Constitutional: Yes: No Distress, Calm Eyes: Yes: Conjunctiva Clear, EOM Intact HENT: No: Epistaxis, Nasal Congestion, Rhinnorhea, Thrush Neck: Yes: Trachea Midline. No: Lymphadenopathy Cardiovascular: Yes: Regular Rate and Rhythm, S1, S2 Respiratory: Yes: Regular, Other (coarse BS, crackles at bases) Gastrointestinal: Yes: Normal Bowel Sounds, Soft. No: Tenderness ...Rectal Exam: Yes: Deferred Renal/: No: CVA Tenderness - Left, CVA Tenderness - Right Musculoskeletal: Yes: Joint Stiffness. No: Back Pain, Joint Swelling Edema: No Neurological: Yes: Alert, Oriented, Other (motor and sensory exaination is symmetric in UE/ LE/ face.) Psychiatric: Yes: Alert, Oriented Labs: CBC, BMP 05/11/19 08:00 05/11/19 12:28 Imaging - Results Chest X-ray: Report Reviewed Problem List - Problems (1) ESRD (end stage renal disease) on dialysis Code(s): N18.6 - END STAGE RENAL DISEASE; Z99.2 - DEPENDENCE ON RENAL DIALYSIS (2) Hyperkalemia Code(s): E87.5 - HYPERKALEMIA (3) PAD (peripheral artery disease) Code(s): I73.9 - PERIPHERAL VASCULAR DISEASE, UNSPECIFIED (4) COPD (chronic obstructive pulmonary disease) Code(s): J44.9 - CHRONIC OBSTRUCTIVE PULMONARY DISEASE, UNSPECIFIED (5) HTN (hypertension) Code(s): I10 - ESSENTIAL (PRIMARY) HYPERTENSION Qualifiers: Hypertension type: essential hypertension Qualified Code(s): I10 - Essential (primary) hypertension (6) Hypertensive heart disease Code(s): I11.9 - HYPERTENSIVE HEART DISEASE WITHOUT HEART FAILURE Qualifiers: Heart failure presence: without heart failure Qualified Code(s): I11.9 - Hypertensive heart disease without heart failure Assessment/Plan Admit to monitored bed HD today Renal Consult, Dr Fischer at bedside. AM labs Pt's care was d/w pt's nurse
[2019-05-11] MEDS ORDERED: ACETAMINOPHEN 325 MG TABLET (FP) PO PRN (21:12)
[2019-05-11] MEDS: CALCIUM ACETATE 667 MG CAPSULE (FP) PO SCH (21:48)
[2019-05-11] MEDS: CARVEDILOL 6.25 MG TABLET (FP) PO SCH (21:48)
[2019-05-11] MEDS: ATORVASTATIN CA 10 MG TABLET (FP) PO SCH (21:48)
[2019-05-11] MEDS: AMITRIPTYLINE HCL 25 MG TABLET (FP) PO SCH (21:48)
--- NOTE | 2019-05-12 00:42 | RAPID ---
Physical Examination Vital Signs: Vital Signs Temperature 98.3 F 05/11/19 18:00 Pulse Rate 108 H 05/11/19 20:16 Respiratory Rate 18 05/11/19 20:16 Blood Pressure 138/80 05/11/19 20:16 O2 Sat by Pulse Oximetry (%) 98 05/11/19 14:09 Labs: CBC, BMP 05/11/19 08:00 05/11/19 12:28 Rapid Response - Rapid Response Assessment: Rapid response was called because pt was having new onset facial twiching and difficulty articulating her thoughts as she would like. Pt vitals were only notable for a blood pressure of 217/83mmHg . we assessed her. NIHSS stroke scale was a score of 2 and pt had no difficulty articulating her words at the time and was AAox3 with strength 5/5 in all extremities, sensation intact in face and extremities and CN2-[address] scan needed at this time.we gave hydralizine 10mg IVPUSH to lower blood pressure. Pt had a facial twich during rapid but no other abnormalities noted Suspected CVA MD Exam Time (Code Brandon Time): 00:30 CT Stroke ordered: No Stat "Code Brandon" Consult to Neurology called & responded: No Last Known Well (Date): 05/12/19 Last Known Well (Time): 00:25 Symptom Discovery (Date): 05/12/19 Symptom Discovery (Time): 00:30 (facial twitching) - NIH Stroke Scale/Score Level of consciousness: Alert Ask patient the month and their age: Answers both correctly Ask patient to open & close eyes; make fist and let go: Obeys both correctly Best gaze (horizontal eye movement): Normal Visual field testing: No visual field loss Facial paresis (Show teeth/raise eyebrows/close eyes tight): Normal symmetrical movement Motor Function: Left Arm: Normal Motor Function: Right Arm: Normal (extends arm 90 (or 45) degrees for 10 seconds without drift Motor Function: Left Leg: Normal (extends leg 30 degrees for 5 seconds without drift) Motor Function: Right Leg: Normal (extends leg 30 degrees for 5 seconds without drift) Limb Ataxia: Present in one limb Sensory(Use pinprick test arms,legs,trunk,face/side to side): Normal Best language (Describe picture, name items, read sentences): No Aphasia Dysarthria (read several words): Mild to moderate slurring of words Extinction and Inattention: No abnormality NIH Stroke Scale Score: 2
[2019-05-12] MEDS ORDERED: hydrALAZINE HCL 20 MG/ML VIAL IVPUSH ONE (01:00)
[2019-05-12 06:46] LABS: HEMATOCRIT 38.9 % (32.4-45.2); HEMOGLOBIN 12.7 GM/dL (10.7-15.3); MCH 30.8 pg (25.7-33.7); MCHC 32.7 g/dl (32.0-36.0); MEAN CELL VOLUME 94.2 fl (80-96); MEAN PLT VOLUME 8.1 fl (7.5-11.1); PLATELET COUNT 320 K/MM3 (134-434); RBC 4.13 M/mm3 (3.60-5.2); RDW 16.7 % (11.6-15.6); WHITE BLOOD COUNT 5.6 K/mm3 (4.0-10.0)
[2019-05-12] MEDS: CALCIUM ACETATE 667 MG CAPSULE (FP) PO SCH ×4 (06:51→17:18)
[2019-05-12 07:23] LABS: BILIRUBIN,TOTAL 0.5 mg/dL (0.2-1); BLOOD UREA NITROGEN 19.4 mg/dL (7-18); CALCIUM 8.6 mg/dL (8.5-10.1); CREATININE 3.4 mg/dL (0.55-1.3); POTASSIUM 4.5 mmol/L (3.5-5.1)
[2019-05-12] MEDS: CALCITRIOL 0.25 MCG CAPSULE (FP) PO SCH (10:25)
[2019-05-12] MEDS: ASPIRIN 81 MG CHEWABLE TABLETS PO SCH (10:25)
[2019-05-12] MEDS: NIFEdipine E.R. 90 MG TABLET (FP) PO SCH (10:26)
[2019-05-12] MEDS: CARVEDILOL 6.25 MG TABLET (FP) PO SCH ×2 (10:26→21:32)
--- NOTE | 2019-05-12 14:46 | PN ---
Progress Note, Physician History of Present Illness: Pt w/o SOB, CP, palpitations, dizziness. Pt is anxious about next HD (place where would have it is goes home today). - Current Medication List Current Medications: Active Medications Acetaminophen (Tylenol -) 650 mg PO Q6H PRN PRN Reason: FEVER Alprazolam (Xanax -) 0.25 mg PO Q12H PRN PRN Reason: ANXIETY Amitriptyline HCl (Elavil -) 25 mg PO HS [facility] Last Admin: 05/11/19 21:48 Dose: 25 mg Aspirin (Asa -) 81 mg PO DAILY [facility] Last Admin: 05/12/19 10:25 Dose: 81 mg Atorvastatin Calcium (Lipitor -) 10 mg PO HS [facility] Last Admin: 05/11/19 21:48 Dose: 10 mg Calcitriol (Rocaltrol -) 0.25 mcg PO DAILY [facility] Last Admin: 05/12/19 10:25 Dose: 0.25 mcg Calcium Acetate (Phoslo -) 667 mg PO TIDCM [facility] Last Admin: 05/12/19 13:00 Dose: 667 mg Carvedilol (Coreg -) 6.25 mg PO BID [facility] Last Admin: 05/12/19 10:26 Dose: 6.25 mg Sodium Chloride (Normal Saline -) 250 mls @ 3,000 mls/hr IV PRN PRN PRN Reason: Hypotension during Dialysis Stop: 05/12/19 14:21 Nifedipine (Procardia Xl -) 90 mg PO DAILY [facility] Last Admin: 05/12/19 10:26 Dose: 90 mg Non-Formulary Medication (Cholestyramine [Cholestyramine Resin]) 1 gm PO DAILY [facility] - Objective Vital Signs: Vital Signs Temperature 98.0 F 05/12/19 10:00 Pulse Rate 82 05/12/19 10:00 Respiratory Rate 20 05/12/19 10:00 Blood Pressure 181/90 H 05/12/19 10:00 O2 Sat by Pulse Oximetry (%) 95 05/12/19 09:00 Constitutional: Yes: No Distress, Calm Cardiovascular: Yes: Regular Rate and Rhythm, S1, S2 Respiratory: Yes: Regular, Rhonchi (scattered), Other (crackels at bases) Gastrointestinal: Yes: Normal Bowel Sounds, Soft, Tenderness Edema: No Neurological: Yes: Alert, Oriented Labs: CBC, BMP 05/12/19 05:39 05/12/19 05:39 Problem List - Problems (1) ESRD (end stage renal disease) on dialysis Code(s): N18.6 - END STAGE RENAL DISEASE; Z99.2 - DEPENDENCE ON RENAL DIALYSIS (2) Hyperkalemia Code(s): E87.5 - HYPERKALEMIA (3) PAD (peripheral artery disease) Code(s): I73.9 - PERIPHERAL VASCULAR DISEASE, UNSPECIFIED (4) COPD (chronic obstructive pulmonary disease) Code(s): J44.9 - CHRONIC OBSTRUCTIVE PULMONARY DISEASE, UNSPECIFIED (5) HTN (hypertension) Code(s): I10 - ESSENTIAL (PRIMARY) HYPERTENSION Qualifiers: Hypertension type: essential hypertension Qualified Code(s): I10 - Essential (primary) hypertension (6) Hypertensive heart disease Code(s): I11.9 - HYPERTENSIVE HEART DISEASE WITHOUT HEART FAILURE Qualifiers: Heart failure presence: without heart failure Qualified Code(s): I11.9 - Hypertensive heart disease without heart failure Assessment/Plan Admitted to monitored bed Pt's condition was d/w Renal; next HD tomorrow Renal Consult is appreciated. AM labs Pt's care was d/w pt's nurse
--- NOTE | 2019-05-12 16:19 | PN ---
Progress Note, Physician History of Present Illness: Pt seen and examined at bedside. She is awake and alert. She denies shortness of breath. - Current Medication List Current Medications: Active Medications Acetaminophen (Tylenol -) 650 mg PO Q6H PRN PRN Reason: FEVER Alprazolam (Xanax -) 0.25 mg PO Q12H PRN PRN Reason: ANXIETY Amitriptyline HCl (Elavil -) 25 mg PO HS [facility] Last Admin: 05/11/19 21:48 Dose: 25 mg Aspirin (Asa -) 81 mg PO DAILY [facility] Last Admin: 05/12/19 10:25 Dose: 81 mg Atorvastatin Calcium (Lipitor -) 10 mg PO HS [facility] Last Admin: 05/11/19 21:48 Dose: 10 mg Calcitriol (Rocaltrol -) 0.25 mcg PO DAILY [facility] Last Admin: 05/12/19 10:25 Dose: 0.25 mcg Calcium Acetate (Phoslo -) 667 mg PO TIDCM [facility] Last Admin: 05/12/19 13:00 Dose: 667 mg Carvedilol (Coreg -) 6.25 mg PO BID [facility] Last Admin: 05/12/19 10:26 Dose: 6.25 mg Sodium Chloride (Normal Saline -) 250 mls @ 3,000 mls/hr IV PRN PRN PRN Reason: Hypotension during Dialysis Stop: 05/12/19 14:21 Nifedipine (Procardia Xl -) 90 mg PO DAILY [facility] Last Admin: 05/12/19 10:26 Dose: 90 mg Non-Formulary Medication (Cholestyramine [Cholestyramine Resin]) 1 gm PO DAILY [facility] - Objective Vital Signs: Vital Signs Temperature 97.5 F L 05/12/19 14:00 Pulse Rate 106 H 05/12/19 14:00 Respiratory Rate 20 05/12/19 14:00 Blood Pressure 158/86 05/12/19 14:00 O2 Sat by Pulse Oximetry (%) 95 05/12/19 09:00 Constitutional: Yes: Calm Eyes: Yes: Conjunctiva Clear HENT: Yes: Atraumatic Neck: Yes: Supple Cardiovascular: Yes: S1, S2 Respiratory: Yes: CTA Bilaterally Gastrointestinal: Yes: Soft Genitourinary: Yes: WNL Musculoskeletal: Yes: WNL Edema: No Neurological: Yes: Oriented Psychiatric: Yes: Oriented Labs: CBC, BMP 05/12/19 05:39 05/12/19 05:39 Problem List - Problems (1) Hyperkalemia Code(s): E87.5 - HYPERKALEMIA (2) Missed dialysis Code(s): [id number] - (3) ESRD (end stage renal disease) Code(s): N18.6 - END STAGE RENAL DISEASE Assessment/Plan Current Medications Generic Name Dose Route Start Last Admin Trade Name Freq PRN Reason Stop Dose Admin Acetaminophen 650 mg 05/11/19 21:12 Tylenol - PO Q6H PRN FEVER Alprazolam 0.25 mg 05/11/19 21:12 Xanax - PO Q12H PRN ANXIETY Amitriptyline HCl 25 mg 05/11/19 22:00 05/11/19 21:48 Elavil - PO 25 mg HS [facility] Administration Aspirin 81 mg 05/12/19 10:00 05/12/19 10:25 Asa - PO 81 mg DAILY [facility] Administration Atorvastatin Calcium 10 mg 05/11/19 22:00 05/11/19 21:48 Lipitor - PO 10 mg HS [facility] Administration Calcitriol 0.25 mcg 05/12/19 10:00 05/12/19 10:25 Rocaltrol - PO 0.25 mcg DAILY [facility] Administration Calcium Acetate 667 mg 05/12/19 08:00 05/12/19 13:00 Phoslo - PO 667 mg TIDCM [facility] Administration Carvedilol 6.25 mg 05/11/19 22:00 05/12/19 10:26 Coreg - PO 6.25 mg BID [facility] Administration Sodium Chloride 250 mls @ 3,000 mls/hr 05/11/19 14:21 Normal Saline - IV 05/12/19 14:21 PRN PRN Hypotension during Dialysis Nifedipine 90 mg 05/12/19 10:00 05/12/19 10:26 Procardia Xl - PO 90 mg DAILY [facility] Administration Non-Formulary Medication 1 gm 05/12/19 10:00 Cholestyramine [Cholestyramine Resin] PO DAILY [facility] Impression 1. esrd 2. dm 3. anemia 4. htn 5. non compliance with HD schedule 6. copd 7. htn 8. hld Plan - HD again tomorrow - renal diet - low potassium diet - discussed with primary team - discussed compliance with HD
[2019-05-12] MEDS ORDERED: ONDANSETRON *ODT* 4 MG TABLET SL PRN (18:39)
[2019-05-12] MEDS: ATORVASTATIN CA 10 MG TABLET (FP) PO SCH (21:32)
[2019-05-12] MEDS: ALPRAZolam 0.25 MG TABLET PO PRN (21:32)
[2019-05-12] MEDS: AMITRIPTYLINE HCL 25 MG TABLET (FP) PO SCH (21:32)
[2019-05-13] MEDS: ALPRAZolam 0.25 MG TABLET PO PRN ×2 (10:31→21:19)
[2019-05-13] MEDS: CHOLESTYRAMINE/ASPARTAME 4 GM PACKET PO SCH ×2 (10:31→21:19)
[2019-05-13] MEDS ORDERED: CHOLESTYRAMINE/ASPARTAME 4 GM PACKET PO SCH (11:00)
[2019-05-13] MEDS ORDERED: SODIUM CHLORIDE 250 ML IV PRN (11:00)
[2019-05-13 12:38] LABS: HEMATOCRIT 36.4 % (32.4-45.2); HEMOGLOBIN 12.1 GM/dL (10.7-15.3); MCH 31.2 pg (25.7-33.7); MCHC 33.2 g/dl (32.0-36.0); MEAN CELL VOLUME 94.1 fl (80-96); MEAN PLT VOLUME 8.2 fl (7.5-11.1); PLATELET COUNT 322 K/MM3 (134-434); RBC 3.87 M/mm3 (3.60-5.2); RDW 16.4 % (11.6-15.6); WHITE BLOOD COUNT 6.1 K/mm3 (4.0-10.0)
--- NOTE | 2019-05-13 12:53 | PN ---
Progress Note, Physician History of Present Illness: I was asked to see pt bu Dr Goyal. She is awake and alert. She is tolerating HD. - Current Medication List Current Medications: Active Medications Acetaminophen (Tylenol -) 650 mg PO Q6H PRN PRN Reason: FEVER Alprazolam (Xanax -) 0.25 mg PO Q12H PRN PRN Reason: ANXIETY Last Admin: 05/13/19 10:31 Dose: 0.25 mg Amitriptyline HCl (Elavil -) 25 mg PO HS [facility] Last Admin: 05/12/19 21:32 Dose: 25 mg Aspirin (Asa -) 81 mg PO DAILY [facility] Last Admin: 05/12/19 10:25 Dose: 81 mg Atorvastatin Calcium (Lipitor -) 10 mg PO HS [facility] Last Admin: 05/12/19 21:32 Dose: 10 mg Calcitriol (Rocaltrol -) 0.25 mcg PO DAILY [facility] Last Admin: 05/12/19 10:25 Dose: 0.25 mcg Calcium Acetate (Phoslo -) 667 mg PO TIDCM [facility] Last Admin: 05/12/19 17:18 Dose: 667 mg Carvedilol (Coreg -) 6.25 mg PO BID [facility] Last Admin: 05/12/19 21:32 Dose: 6.25 mg Cholestyramine Resin (Questran Light Packet -) 4 gm PO BID [facility] Last Admin: 05/13/19 10:31 Dose: 4 gm Nifedipine (Procardia Xl -) 90 mg PO DAILY [facility] Last Admin: 05/12/19 10:26 Dose: 90 mg Ondansetron HCl (Zofran Odt -) 8 mg SL Q8H PRN PRN Reason: NAUSEA Last Admin: 05/12/19 18:50 Dose: 8 mg - Objective Vital Signs: Vital Signs Temperature 98 F 05/13/19 06:00 Pulse Rate 82 05/13/19 06:00 Respiratory Rate 20 05/13/19 06:00 Blood Pressure 150/88 05/13/19 06:00 O2 Sat by Pulse Oximetry (%) 98 05/12/19 21:00 Constitutional: Yes: Calm Eyes: Yes: Conjunctiva Clear HENT: Yes: Atraumatic Neck: Yes: Supple Cardiovascular: Yes: S1, S2 Respiratory: Yes: CTA Bilaterally Gastrointestinal: Yes: Soft Genitourinary: Yes: WNL Musculoskeletal: Yes: WNL Edema: No Neurological: Yes: Oriented Psychiatric: Yes: Oriented Labs: CBC, BMP 05/13/19 11:45 Problem List - Problems (1) Hyperkalemia Code(s): E87.5 - HYPERKALEMIA (2) Missed dialysis Code(s): [id number] - (3) ESRD (end stage renal disease) Code(s): N18.6 - END STAGE RENAL DISEASE Assessment/Plan Current Medications Generic Name Dose Route Start Last Admin Trade Name Freq PRN Reason Stop Dose Admin Acetaminophen 650 mg 05/11/19 21:12 Tylenol - PO Q6H PRN FEVER Alprazolam 0.25 mg 05/11/19 21:12 05/13/19 10:31 Xanax - PO 0.25 mg Q12H PRN Administration ANXIETY Amitriptyline HCl 25 mg 05/11/19 22:00 05/12/19 21:32 Elavil - PO 25 mg HS [facility] Administration Aspirin 81 mg 05/12/19 10:00 05/12/19 10:25 Asa - PO 81 mg DAILY [facility] Administration Atorvastatin Calcium 10 mg 05/11/19 22:00 05/12/19 21:32 Lipitor - PO 10 mg HS [facility] Administration Calcitriol 0.25 mcg 05/12/19 10:00 05/12/19 10:25 Rocaltrol - PO 0.25 mcg DAILY [facility] Administration Calcium Acetate 667 mg 05/12/19 08:00 05/12/19 17:18 Phoslo - PO 667 mg TIDCM [facility] Administration Carvedilol 6.25 mg 05/11/19 22:00 05/12/19 21:32 Coreg - PO 6.25 mg BID [facility] Administration Cholestyramine Resin 4 gm 05/13/19 10:30 05/13/19 10:31 Questran Light Packet - PO 4 gm BID [facility] Administration Nifedipine 90 mg 05/12/19 10:00 05/12/19 10:26 Procardia Xl - PO 90 mg DAILY [facility] Administration Ondansetron HCl 8 mg 05/12/19 18:39 05/12/19 18:50 Zofran Odt - SL 8 mg Q8H PRN Administration NAUSEA Impression 1. esrd 2. dm 3. anemia 4. htn 5. non compliance with HD schedule 6. copd 7. htn 8. hld Plan - HD today - renal diet - low potassium diet - discussed compliance with HD
[2019-05-13 12:56] LABS: BLOOD UREA NITROGEN 40.3 mg/dL (7-18); CALCIUM 8.4 mg/dL (8.5-10.1); CREATININE 5.8 mg/dL (0.55-1.3); POTASSIUM 4.8 mmol/L (3.5-5.1)
--- NOTE | 2019-05-13 13:42 | DS ---
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 No: Tenderness Renal/: No: Hematuria Musculoskeletal: No: Joint Stiffness, Joint Swelling Extremities: No: Cold, Cool Edema: No Integumentary: No: Rash, Venous Stasis Changes Neurological: Yes: WNL, Alert, Oriented ...Motor Strength: WNL Psychiatric: Yes: WNL, Alert, Oriented. No: Agitated, Suicidal Ideation Labs: CBC, BMP 05/13/19 11:45 05/13/19 11:45 Discharge Summary Reason For Visit: MISSED DIALYSIS,CHRONIC KIDNEY DISEASE, HYPERLAEMI Current Active Problems Chronic renal disease (Acute) ESRD (end stage renal disease) on dialysis (Acute) Hyperkalemia (Acute) Hyperkalemia (Acute) Missed dialysis (Acute) PAD (peripheral artery disease) (Acute) Procedures: Principal: 83 YOF ASHD PVD DM ESRD / HD COPD CHF anemia smoker admitted with Hyper K Other Procedures: dyalized per renal. seen by case specialist for DC planning Hospital Course: improved with above; could be DC home but pt needs close f/u after DC; dw pt to have HD 3d/w as ordered per renal; pt decided to apply for medicaid to have fpc NH coverage and she wants to d/w CM, she feels like she can not manage herself at home alone Condition: Stable - Instructions Diet, Activity, Other Instructions: take medications as ordered and have dialysis 3 days a week as per renal RTER if worse or recurrent VNS and home PT rehab f/u case specialist outpt Referrals: Angela Barahona [Primary Care Provider] - Quentin Goyal MD [Staff Physician] - Disposition: VNS/HOME HEALTH CARE - Home Medications Comprehensive Discharge Medication List: Ambulatory Orders Alprazolam [Xanax] 0.25 mg PO BID PRN 02/19/19 Amitriptyline HCl [Elavil -] 25 mg PO HS 02/19/19 Aspirin [ASA -] 81 mg PO DAILY 02/19/19 Atorvastatin Ca [Lipitor] 10 mg PO HS 02/19/19 Calcitriol [Calcitriol -] 0.25 mcg PO DAILY 02/19/19 Calcium Acetate 667 mg PO TID 02/19/19 Carvedilol [Coreg -] 6.25 mg PO BID 02/19/19 Cholestyramine [Cholestyramine Resin] 4 gm PO BID 02/19/19 Nifedipine [Procardia Xl] 90 mg PO DAILY 02/19/19 Acetaminophen [Tylenol .Regular Strength -] 650 mg PO Q6H PRN tablet 04/19/19
[2019-05-13] MEDS: CALCIUM ACETATE 667 MG CAPSULE (FP) PO SCH ×3 (15:47→17:44)
[2019-05-13] MEDS: CARVEDILOL 6.25 MG TABLET (FP) PO SCH ×2 (15:48→21:24)
[2019-05-13] MEDS: NIFEdipine E.R. 90 MG TABLET (FP) PO SCH (15:48)
[2019-05-13] MEDS: CALCITRIOL 0.25 MCG CAPSULE (FP) PO SCH (15:48)
[2019-05-13] MEDS: ASPIRIN 81 MG CHEWABLE TABLETS PO SCH (15:54)
--- NOTE | 2019-05-13 18:24 | EKG ---
Test Reason : Blood Pressure : / mmHG Vent. Rate : 078 BPM Atrial Rate : 078 BPM P-R Int : 198 ms QRS Dur : 098 ms QT Int : 412 ms P-R-T Axes : 045 046 068 degrees QTc Int : 469 ms NORMAL SINUS RHYTHM NORMAL ECG WHEN COMPARED WITH ECG OF 17-APR-2019 10:34, T WAVE VARIATION Confirmed by AFSHAN NOYOLA MD ([id number]) on 05/13/2019 6:24:36 PM Referred By: Confirmed By:AFSHAN NOYOLA MD
[2019-05-13] MEDS: ATORVASTATIN CA 10 MG TABLET (FP) PO SCH (21:19)
[2019-05-13] MEDS: AMITRIPTYLINE HCL 25 MG TABLET (FP) PO SCH (21:19)
[2019-05-14] MEDS: ALPRAZolam 0.25 MG TABLET PO PRN (07:04)
[2019-05-14] MEDS: NIFEdipine E.R. 90 MG TABLET (FP) PO SCH (09:08)
[2019-05-14] MEDS: CALCIUM ACETATE 667 MG CAPSULE (FP) PO SCH ×2 (09:08→11:58)
[2019-05-14] MEDS: ASPIRIN 81 MG CHEWABLE TABLETS PO SCH (09:08)
[2019-05-14] MEDS: CHOLESTYRAMINE/ASPARTAME 4 GM PACKET PO SCH (09:08)
[2019-05-14] MEDS: CALCITRIOL 0.25 MCG CAPSULE (FP) PO SCH (09:08)
[2019-05-14] MEDS: CARVEDILOL 6.25 MG TABLET (FP) PO SCH (09:23)
--- NOTE | 2019-05-14 11:08 | PN ---
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 as outpt f/u as advised and dw pt to be c/w HD as ordered by renal, important to not miss it - Current Medication List Current Medications: Active Medications Acetaminophen (Tylenol -) 650 mg PO Q6H PRN PRN Reason: FEVER Alprazolam (Xanax -) 0.25 mg PO Q12H PRN PRN Reason: ANXIETY Last Admin: 05/14/19 07:04 Dose: 0.25 mg Amitriptyline HCl (Elavil -) 25 mg PO HS [facility] Last Admin: 05/13/19 21:19 Dose: 25 mg Aspirin (Asa -) 81 mg PO DAILY [facility] Last Admin: 05/14/19 09:08 Dose: 81 mg Atorvastatin Calcium (Lipitor -) 10 mg PO HS [facility] Last Admin: 05/13/19 21:19 Dose: 10 mg Calcitriol (Rocaltrol -) 0.25 mcg PO DAILY [facility] Last Admin: 05/14/19 09:08 Dose: 0.25 mcg Calcium Acetate (Phoslo -) 667 mg PO TIDCM [facility] Last Admin: 05/14/19 09:08 Dose: 667 mg Carvedilol (Coreg -) 6.25 mg PO BID [facility] Last Admin: 05/14/19 09:23 Dose: 6.25 mg Cholestyramine Resin (Questran Light Packet -) 4 gm PO BID [facility] Last Admin: 05/14/19 09:08 Dose: 4 gm Nifedipine (Procardia Xl -) 90 mg PO DAILY [facility] Last Admin: 05/14/19 09:08 Dose: 90 mg Ondansetron HCl (Zofran Odt -) 8 mg SL Q8H PRN PRN Reason: NAUSEA Last Admin: 05/12/19 18:50 Dose: 8 mg - Objective Vital Signs: Vital Signs Temperature 98.9 F 05/14/19 09:06 Pulse Rate 89 05/14/19 09:06 Respiratory Rate 18 05/14/19 09:06 Blood Pressure 179/95 H 05/14/19 09:06 O2 Sat by Pulse Oximetry (%) 98 05/13/19 21:00 Constitutional: Yes: No Distress, Calm Eyes: Yes: Conjunctiva Clear HENT: Yes: Atraumatic Neck: Yes: Supple Cardiovascular: Yes: Regular Rate and Rhythm Respiratory: Yes: CTA Bilaterally Gastrointestinal: Yes: Soft. No: Tenderness Genitourinary: No: Hematuria Musculoskeletal: No: Joint Stiffness, Joint Swelling Extremities: No: Cold, Cool Edema: No Integumentary: No: Rash, Venous Stasis Changes Neurological: Yes: WNL, Alert, Oriented ...Motor Strength: WNL Psychiatric: Yes: WNL, Alert, Oriented. No: Agitated, Suicidal Ideation Labs: CBC, BMP 05/13/19 11:45 05/13/19 11:45 - ....Imaging Other: Report Reviewed Assessment/Plan 83 YOF ESRD/HD HTN DM PVD anemia COPD admitted with hyperK after missed HD responded well to HD d/w pt do not miss HD in the future renal, cardio, CM f/u; home VNS; take meds as prescribed; stop tob; falls PFX d.w pt and staff
--- NOTE | 2019-05-14 12:31 | PN ---
Progress Note, Physician History of Present Illness: Coverage for Dr Goyal Pt seen and examined at bedside. She is awake and alert. - Current Medication List Current Medications: Active Medications Acetaminophen (Tylenol -) 650 mg PO Q6H PRN PRN Reason: FEVER Alprazolam (Xanax -) 0.25 mg PO Q12H PRN PRN Reason: ANXIETY Last Admin: 05/14/19 07:04 Dose: 0.25 mg Amitriptyline HCl (Elavil -) 25 mg PO HS [facility] Last Admin: 05/13/19 21:19 Dose: 25 mg Aspirin (Asa -) 81 mg PO DAILY [facility] Last Admin: 05/14/19 09:08 Dose: 81 mg Atorvastatin Calcium (Lipitor -) 10 mg PO HS [facility] Last Admin: 05/13/19 21:19 Dose: 10 mg Calcitriol (Rocaltrol -) 0.25 mcg PO DAILY [facility] Last Admin: 05/14/19 09:08 Dose: 0.25 mcg Calcium Acetate (Phoslo -) 667 mg PO TIDCM [facility] Last Admin: 05/14/19 11:58 Dose: 667 mg Carvedilol (Coreg -) 6.25 mg PO BID [facility] Last Admin: 05/14/19 09:23 Dose: 6.25 mg Cholestyramine Resin (Questran Light Packet -) 4 gm PO BID [facility] Last Admin: 05/14/19 09:08 Dose: 4 gm Nifedipine (Procardia Xl -) 90 mg PO DAILY [facility] Last Admin: 05/14/19 09:08 Dose: 90 mg Ondansetron HCl (Zofran Odt -) 8 mg SL Q8H PRN PRN Reason: NAUSEA Last Admin: 05/12/19 18:50 Dose: 8 mg - Objective Vital Signs: Vital Signs Temperature 98.9 F 05/14/19 09:06 Pulse Rate 89 05/14/19 09:06 Respiratory Rate 18 05/14/19 09:06 Blood Pressure 179/95 H 05/14/19 09:06 O2 Sat by Pulse Oximetry (%) 98 05/13/19 21:00 Constitutional: Yes: Calm Eyes: Yes: Conjunctiva Clear HENT: Yes: Atraumatic Neck: Yes: Supple Cardiovascular: Yes: S1, S2 Respiratory: Yes: CTA Bilaterally Gastrointestinal: Yes: Soft Genitourinary: Yes: WNL Musculoskeletal: Yes: WNL Edema: No Neurological: Yes: Oriented Psychiatric: Yes: Oriented Labs: CBC, BMP 05/13/19 11:45 05/13/19 11:45 Problem List - Problems (1) Hyperkalemia Code(s): E87.5 - HYPERKALEMIA (2) Missed dialysis Code(s): [id number] - (3) ESRD (end stage renal disease) Code(s): N18.6 - END STAGE RENAL DISEASE Assessment/Plan Current Medications Generic Name Dose Route Start Last Admin Trade Name Freq PRN Reason Stop Dose Admin Acetaminophen 650 mg 05/11/19 21:12 Tylenol - PO Q6H PRN FEVER Alprazolam 0.25 mg 05/11/19 21:12 05/14/19 07:04 Xanax - PO 0.25 mg Q12H PRN Administration ANXIETY Amitriptyline HCl 25 mg 05/11/19 22:00 05/13/19 21:19 Elavil - PO 25 mg HS [facility] Administration Aspirin 81 mg 05/12/19 10:00 05/14/19 09:08 Asa - PO 81 mg DAILY [facility] Administration Atorvastatin Calcium 10 mg 05/11/19 22:00 05/13/19 21:19 Lipitor - PO 10 mg HS [facility] Administration Calcitriol 0.25 mcg 05/12/19 10:00 05/14/19 09:08 Rocaltrol - PO 0.25 mcg DAILY [facility] Administration Calcium Acetate 667 mg 05/12/19 08:00 05/14/19 11:58 Phoslo - PO 667 mg TIDCM [facility] Administration Carvedilol 6.25 mg 05/11/19 22:00 05/14/19 09:23 Coreg - PO 6.25 mg BID [facility] Administration Cholestyramine Resin 4 gm 05/13/19 10:30 05/14/19 09:08 Questran Light Packet - PO 4 gm BID [facility] Administration Nifedipine 90 mg 05/12/19 10:00 05/14/19 09:08 Procardia Xl - PO 90 mg DAILY [facility] Administration Ondansetron HCl 8 mg 05/12/19 18:39 05/12/19 18:50 Zofran Odt - SL 8 mg Q8H PRN Administration NAUSEA Impression 1. esrd 2. dm 3. anemia 4. htn 5. non compliance with HD schedule 6. copd 7. HLD Plan - pt tolerated HD yesterday - she wants to switch to MWF schedule - called HD and she will dialyze tomorrow at 10 30 - pt will see Dr England in HD
[2019-05-14 15:14] VITALS: BP 141/78; PULSE 81; TEMP 98.6
== END 2019-05-14 15:35 | disposition home health service (06) | DRG 640 ==
LOC: JER 06:53 → JERBED 10:02 → J4W 13:21 → J4S 05-12 17:00
PROVIDERS: ADMIT Internal Medicine; ATTEND Internal Medicine
PROC: 5A1D70Z Performance of Urinary Filtration, Intermittent, Less than 6 Hours Per Day (ICD-10-PCS; principal; 2019-05-11)
DX: E87.5 Hyperkalemia (principal); N18.6 End stage renal disease; I13.11 Hypertensive heart and chronic kidney disease without heart failure, with stage 5 chronic kidney disease, or end stage renal disease; J44.9 Chronic obstructive pulmonary disease, unspecified; E11.22 Type 2 diabetes mellitus with diabetic chronic kidney disease; D64.9 Anemia, unspecified; E11.51 Type 2 diabetes mellitus with diabetic peripheral angiopathy without gangrene; E78.5 Hyperlipidemia, unspecified; Z89.421 Acquired absence of other right toe(s); Z99.2 Dependence on renal dialysis; Z91.14 Patient's other noncompliance with medication regimen
CPT/HCPCS: 36415; 71045-TC-FY; 80048; 80053; 81003; 82962; 83735; 84484; 85025; 85027; 86803; 87086; 87340; 93005; 93010; 97116-GP; 97161-GP; 99285-25; Q0162

== ENCOUNTER 2019-05-24 20:01 | Observation (INO) | payer OTHER ==
[2019-05-24 20:41] VITALS: BMI 20.3
--- NOTE | 2019-05-24 21:29 | PDOC ---
Attending Attestation - Resident Resident Name: Waqas Sanchez - ED Attending Attestation I have performed the following: I have examined & evaluated the patient, The case was reviewed & discussed with the resident, I agree w/resident's findings & plan - HPI HPI: 05/24/19 22:31 Pt was at dialysis session and her blood pressure ila. She requested her usual clonidine (she has had this once before) She was told that they would not give it to her. Pt states that her remote broadcast engineer Jaclyn Saavedra was called and she finally received the clonidine 2 hrs into her dialysis session. Pt is anxious and upset that she got only 2/3 of her dialysis. SHe has no SOB; BP is elevated. Pt is taking her own elavil and xanax; nurse will document that. - Physicial Exam PE: 05/24/19 22:58 Clear lungs bilat; afebrile Pt has minimal to no pitting edema noted Pt is anxious Pt has normal abd exam and no flank pain. She has normal chest exam and heart is RRR. - Medical Decision Making 05/24/19 23:39 Pt received her coreg here as well as Nitropaste to the chest. She has EKG changes; HTN urgency; she will be admitted to the telemetry unit under her PMD Androne. PMD is aware. Heart Score/ECG Review - ECG Intrepretation Rhythm: Regular Rhythm - [place]: Normal - P and ND Prominent R with upright T in V1 (true posterior MN): No Delta Wave(s) Present: No WPW: No - QRS Poor R Wave Progression: No Q Wave Present: Yes Comment:: 05/24/19 23:04 New Q wave in V2; V1 pt has had a q wave in the past. Pt may have septal injury. - ST and T Early Repolarization: No Non Specific ST-T Wave changes: No Flattened T Waves: No Prolonged Q-T Interval: No - ECG Impressions Normal ECG: Yes Non-specific ST Elevation: No Ischemic Changes: No Bradycardia: No Torsades miriam Pointes: No
[2019-05-24] MEDS ORDERED: CARVEDILOL 6.25 MG TABLET (FP) PO ONE (21:36)
[2019-05-24] MEDS ORDERED: NITROGLYCERIN 2% OINTMENT - 1GM PACKET TD ONE ×3 (21:41→22:16)
[2019-05-24] MEDS ORDERED: CARVEDILOL 3.125 MG TABLET (FP) ONE (21:46)
--- NOTE | 2019-05-24 22:03 | PDOC ---
History of Present Illness - General Chief Complaint: Blood Pressure Problem Stated Complaint: HYPERTENSION Time Seen by Provider: 05/24/19 21:14 - History of Present Illness Initial Comments: The pt is an 83F w/ a history of ESRD on iHD (MWF, last today, 2/3 session), HTN , HLD, anemia, DM who presents from iHD for asymptomatic HTN. The pt reports HTN to the SBP 190s-200s just prior to and during iHD. She denies having any symptoms at that time or currently. She states she's had this happen once before and was given clonidine for her HTN. She was also given clonidine today, 0.1mg at 1850. The pt reports that she did not take her morning or evening Coreg today (6.25mg). She denies current symptoms including PARR, vision changes, dizziness, chest pain , SOB, abdominal pain, N/V/C/D, dysuria, hematuria, or rash 05/24/19 21:57 Past History - Past Medical History Allergies/Adverse Reactions: Allergies Allergy/AdvReac Type Severity Reaction Status Date / Time iodine Allergy Rash Verified 05/11/19 07:19 penicillin V Allergy Verified 05/11/19 07:19 shellfish derived Allergy Rash Verified 05/11/19 07:19 vancomycin Allergy Verified 05/11/19 07:19 azithromycin AdvReac Verified 05/11/19 07:19 Home Medications: Ambulatory Orders RX: Alprazolam [Xanax] 0.25 mg PO BID PRN 02/19/19 RX: Amitriptyline HCl [Elavil -] 25 mg PO HS 02/19/19 RX: Aspirin [ASA -] 81 mg PO DAILY 02/19/19 RX: Atorvastatin Ca [Lipitor] 10 mg PO HS 02/19/19 RX: Calcitriol [Calcitriol -] 0.25 mcg PO DAILY 02/19/19 RX: Calcium Acetate 667 mg PO TID 02/19/19 RX: Carvedilol [Coreg -] 6.25 mg PO BID 02/19/19 RX: Cholestyramine [Cholestyramine Resin] 4 gm PO BID 02/19/19 RX: Nifedipine [Procardia Xl] 90 mg PO DAILY 02/19/19 RX: Acetaminophen [Tylenol .Regular Strength -] 650 mg PO Q6H PRN tablet Anemia: Yes Asthma: Yes Cancer: No Cardiac Disorders: Yes (PAD,CAD) CVA: No COPD: No CHF: No DVT: No Dementia: No Diabetes: Yes Dialysis: Yes (,,sa) GI Disorders: Yes (chronic diarrhea) Disorders: No HTN: Yes Hypercholesterolemia: Yes Liver Disease: No Seizures: No Thyroid Disease: No - Surgical History Abdominal Surgery: No Appendectomy: No Cardiac Surgery: Yes (FEMORAL BYPASS) Cholecystectomy: Yes Lung Surgery: No Neurologic Surgery: No Orthopedic Surgery: Yes (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) - Immunization History Td Vaccination: Yes TDAP Vaccination: Yes Immunization Up to Date: Yes - Psycho Social/Smoking Cessation Hx Smoking Status: Yes Smoking History: Current every day smoker Have you smoked in the past 12 months: Yes Number of Cigarettes Smoked Daily: 30 If you are a former smoker, when did you quit?: 08/10/2012 Cigars Per Day: 30 Information on smoking cessation initiated: No 'Breaking Loose' booklet given: 08/28/18 Hx Alcohol Use: Yes Drug/Substance Use Hx: No Substance Use Type: None Hx Substance Use Treatment: No Review of Systems - Review of Systems Able to Perform ROS?: Yes Comments:: GENERAL/CONSTITUTIONAL: No fever or chills. No weakness HEAD, EYES, EARS, NOSE AND THROAT: No change in vision. No change in hearing. No sore throat CARDIOVASCULAR: No chest pain or shortness of breath RESPIRATORY: Denies cough GASTROINTESTINAL: No nausea, vomiting, diarrhea or constipation GENITOURINARY: No dysuria MUSCULOSKELETAL: No joint or muscle swelling or pain SKIN: No rash NEUROLOGIC: No headache or change in strength/sensation ENDOCRINE: No increased thirst. No abnormal weight change HEMATOLOGIC/LYMPHATIC: +anemia ALLERGIC/IMMUNOLOGIC: No hives or skin allergy 05/24/19 22:01 Is the patient limited Dutch proficient: No *Physical Exam - Vital Signs Last Vital Signs Temp Pulse Resp BP Pulse Ox 98.7 F 77 20 187/77 H 98 05/24/19 20:39 05/24/19 20:39 05/24/19 20:39 05/24/19 20:39 05/24/19 20:39 - Physical Exam Comments: GENERAL: Awake, alert, and oriented to person/place/time, in no acute distress HEAD: No signs of trauma, normocephalic, atraumatic EYES: PERRLA, EOMI, sclera anicteric, conjunctiva clear ENT: Hearing grossly normal, nares patent, oropharynx clear without exudates. Moist mucosa LUNGS: No distress, speaks in full sentences, clear to auscultation bilaterally HEART: Regular rate and rhythm, normal S1 and S2, no murmurs appreciated, peripheral pulses normal and equal bilaterally CHEST: R HD catheter in place w/ clean overlying dressing ABDOMEN: Soft, nontender, normoactive bowel sounds. No guarding, no rebound EXTREMITIES: Normal inspection, Normal range of motion, no edema. No clubbing or cyanosis NEUROLOGICAL: Cranial nerves II through XII grossly intact. Normal speech, normal gait, no focal sensorimotor deficits SKIN: Warm, Dry 05/24/19 22:02 ED Treatment Course - LABORATORY CBC & Chemistry Diagram: 05/24/19 22:03 05/24/19 22:03 - RADIOLOGY Radiology Studies Ordered: Category Date Time Status CHEST X-RAY PORTABLE* [RAD] Stat Radiology 05/24/19 21:42 Ordered - Medications Given in the ED: ED Medications Discontinued Medications Generic Name Dose Route Start Last Admin Trade Name Freq PRN Reason Stop Dose Admin Carvedilol 6.25 mg 05/24/19 21:36 05/24/19 21:52 Coreg - PO 05/24/19 21:37 6.25 mg ONCE ONE Administration Nitroglycerin 1 inch 05/24/19 21:41 05/24/19 21:53 Nitro-Bid 2% Paste - TD 05/24/19 21:42 Not Given ONCE ONE Medical Decision Making - Medical Decision Making The pt is an 83F w/ a history of HTN, HLD, ESRD on iHD (MWF last today, 2/3 session) who presents for evaluation of asymptomatic HTN. S/p clonidine at iHD. ED Course Labs sent ECG CXR Home Coreg 6.25 given and NTG paste 1in placed Will reassess 05/24/19 22:03 Cr near baseline No leukocytosis No anemia K 4, no need for emergent dialysis LFTs wnl Pt concerned about not receiving total dialysis regimen and expressed similar instances in the past with needed subsequent emergent dialysis 05/24/19 22:56 ECG w/ NSR; HR 80; QTc 482; new Q wave in V2 in addition to Q-wave in V1 which is chronic; No axis deviation; No ALFIE 05/24/19 23:02 Case discussed w/ Dr. Barahona Will admit to Tele for ECG changes, HTN, and possible need for iHD Consult orders placed for Drs. Abbott and Jay Jay Dispo: Tele 05/24/19 23:39 Discharge - Discharge Information Problems reviewed: Yes Clinical Impression/Diagnosis: ESRD (end stage renal disease) Hypertension Qualifiers: Hypertension type: unspecified Qualified Code(s): I10 - Essential (primary) hypertension Anemia Qualifiers: Anemia type: unspecified type Qualified Code(s): D64.9 - Anemia, unspecified Condition: Good - Admission Yes - Follow up/Referral Referrals: Angela Barahona [Primary Care Provider] - - Patient Discharge Instructions - Post Discharge Activity
[2019-05-24 22:12] LABS: BASO % 0.8 % (0-2.0); EOS % 4.9 % (0-4.5); HEMATOCRIT 31.9 % (32.4-45.2); HEMOGLOBIN 10.8 GM/dL (10.7-15.3); LYMPH % 24.8 % (8-40); MCH 31.7 pg (25.7-33.7); MEAN CELL VOLUME 93.3 fl (80-96); MONO % 11.1 % (3.8-10.2); NEUT % 58.4 % (42.8-82.8); PLATELET COUNT 214 K/MM3 (134-434); RBC 3.42 M/mm3 (3.60-5.2); RDW 15.5 % (11.6-15.6); WHITE BLOOD COUNT 6.6 K/mm3 (4.0-10.0)
[2019-05-24 22:41] LABS: ALBUMIN 3.2 g/dl (3.4-5.0); BILIRUBIN,TOTAL 0.1 mg/dL (0.2-1); BLOOD UREA NITROGEN 17.6 mg/dL (7-18); CALCIUM 8.6 mg/dL (8.5-10.1); CREATININE 3.5 mg/dL (0.55-1.3); TOT PROT 6.8 g/dl (6.4-8.2)
[2019-05-24 23:10] LABS: MAGNESIUM 1.9 mg/dL (1.8-2.4)
[2019-05-25] MEDS ORDERED: ACETAMINOPHEN 325 MG TABLET (FP) PO PRN (00:01)
[2019-05-25] MEDS ORDERED: ALPRAZolam 0.25 MG TABLET PO PRN (00:01)
[2019-05-25] MEDS ORDERED: hydrALAZINE HCL 20 MG/ML VIAL IVPUSH ONE (00:11)
[2019-05-25] MEDS: AMITRIPTYLINE HCL 25 MG TABLET (FP) PO SCH ×2 (00:14→21:46)
[2019-05-25] MEDS ORDERED: hydrALAZINE HCL 20 MG/ML VIAL ONE (00:32)
[2019-05-25 07:49] LABS: HEMATOCRIT 32.7 % (32.4-45.2); HEMOGLOBIN 10.8 GM/dL (10.7-15.3); MCH 31.1 pg (25.7-33.7); MCHC 33.1 g/dl (32.0-36.0); MEAN PLT VOLUME 8.2 fl (7.5-11.1); PLATELET COUNT 207 K/MM3 (134-434); RBC 3.48 M/mm3 (3.60-5.2); RDW 15.6 % (11.6-15.6); WHITE BLOOD COUNT 4.5 K/mm3 (4.0-10.0)
[2019-05-25 08:03] LABS: ALBUMIN 2.9 g/dl (3.4-5.0); ALK PHOS 63 U/L (45-117); ANION GAP 7 MMOL/L (8-16); BILIRUBIN,TOTAL 0.2 mg/dL (0.2-1); BLOOD UREA NITROGEN 20.4 mg/dL (7-18); CALCIUM 8.1 mg/dL (8.5-10.1); CHLORIDE 104 mmol/L (98-107); CO2 29 mmol/L (21-32); CREATININE 4.2 mg/dL (0.55-1.3); GLUCOSE,RANDOM 85 mg/dL (74-106); POTASSIUM 4.3 mmol/L (3.5-5.1); SGOT/AST 12 U/L (15-37); SGPT/ALT 13 U/L (13-61); SODIUM 140 mmol/L (136-145); TOT PROT 6.1 g/dl (6.4-8.2)
--- NOTE | 2019-05-25 08:21 | CON.CARD ---
Consult Consult Specialty:: Cardiology for dr. Amaral - History of Present Illness Chief Complaint: high BP History of Present Illness: The pt is an 83F w/ a history of ESRD on iHD (MWF, last today, 2/3 session), HTN , HLD, anemia, DM who presents from iHD for asymptomatic HTN. The pt reports HTN to the SBP 190s-200s just prior to and during iHD. She denies having any symptoms at that time or currently. She states she's had this happen once before and was given clonidine for her HTN. She was also given clonidine today, 0.1mg at 1850. The pt reports that she did not take her morning or evening Coreg today (6.25mg). She denies current symptoms including PARR, vision changes, dizziness, chest pain , SOB, abdominal pain, N/V/C/D, dysuria, hematuria, or rash 05/24/19 21:57 - History Source History Provided By: Patient, Medical Record - Past Medical History Cardio/Vascular: Yes: HTN, Hyperlipdemia, Murmur, Other (PAD) Pulmonary: Yes: Asthma, COPD Hepatobiliary: Yes: Cholelithiasis, Choledocholithiasis Renal/: Yes: Renal Inusuff, Hemodialysis Infectious Disease: Yes: Other (history of osteomyelitis in the past) Endocrine: Yes: Diabetes Mellitus - Past Surgical History Past Surgical History: Yes: Amputation (1-st R toe amputation), Bypass (Right fem pop bypass) - Alcohol/Substance Use Hx Alcohol Use: Yes History of Substance Use: reports: None - Smoking History Smoking history: Current every day smoker Have you smoked in the past 12 months: Yes Aproximately how many cigarettes per day: 30 If you are a former smoker, when did you quit?: 08/10/2012 - Social History Usual Living Arrangement: Alone ADL: Independent 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, 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, 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 Travel: No Home Medications - Allergies Allergies/Adverse Reactions: Allergies Allergy/AdvReac Type Severity Reaction Status Date / Time iodine Allergy Rash Verified 05/11/19 07:19 penicillin V Allergy Verified 05/11/19 07:19 shellfish derived Allergy Rash Verified 05/11/19 07:19 vancomycin Allergy Verified 05/11/19 07:19 azithromycin AdvReac Verified 05/11/19 07:19 - Home Medications Home Medications: Ambulatory Orders Alprazolam [Xanax] 0.25 mg PO BID PRN 02/19/19 Amitriptyline HCl [Elavil -] 25 mg PO HS 02/19/19 Aspirin [ASA -] 81 mg PO DAILY 02/19/19 Atorvastatin Ca [Lipitor] 10 mg PO HS 02/19/19 Calcitriol [Calcitriol -] 0.25 mcg PO DAILY 02/19/19 Calcium Acetate 667 mg PO TID 02/19/19 Carvedilol [Coreg -] 6.25 mg PO BID 02/19/19 Cholestyramine [Cholestyramine Resin] 4 gm PO BID 02/19/19 Nifedipine [Procardia Xl] 90 mg PO DAILY 02/19/19 Acetaminophen [Tylenol .Regular Strength -] 650 mg PO Q6H PRN tablet 04/19/19 Ferrous Sulfate 325 mg PO BID 05/25/19 Losartan Potassium 100 mg PO DAILY 05/25/19 Review of Systems - Review of Systems Constitutional: reports: No Symptoms Eyes: reports: No Symptoms HENT: reports: No Symptoms Neck: reports: No Symptoms Cardiovascular: reports: No Symptoms Respiratory: reports: No Symptoms Gastrointestinal: reports: No Symptoms Genitourinary: reports: No Symptoms Breasts: reports: No Symptoms Reported Musculoskeletal: reports: No Symptoms Integumentary: reports: No Symptoms Neurological: reports: No Symptoms Endocrine: reports: No Symptoms Hematology/Lymphatic: reports: No Symptoms Psychiatric: reports: No Symptoms Vital Signs: Vital Signs Temperature 98.2 F 05/25/19 06:00 Pulse Rate 72 05/25/19 06:00 Respiratory Rate 18 05/25/19 06:00 Blood Pressure 138/54 L 05/25/19 06:00 O2 Sat by Pulse Oximetry (%) 98 05/25/19 02:17 Constitutional: Yes: Well Nourished, No Distress, Calm Eyes: Yes: WNL, Conjunctiva Clear, EOM Intact HENT: Yes: WNL, Atraumatic, Normocephalic Neck: Yes: WNL, Supple, Trachea Midline Respiratory: Yes: WNL, Regular, CTA Bilaterally Gastrointestinal: Yes: WNL, Normal Bowel Sounds Renal/: Yes: WNL Cardiovascular: Yes: WNL, Regular Rate and Rhythm Musculoskeletal: Yes: WNL Extremities: Yes: WNL Integumentary: Yes: WNL Neurological: Yes: WNL, Alert, Oriented ...Motor Strength: WNL Psychiatric: Yes: WNL, Alert, Oriented - Other Data Labs, Other Data: CBC, BMP 05/25/19 06:53 05/25/19 06:53 Troponin, BNP 05/24/19 05/25/19 22:03 06:53 Troponin I < 0.02 < 0.02 Troponin, BNP 05/24/19 05/25/19 22:03 06:53 Troponin I < 0.02 < 0.02 Imaging - Results Chest X-ray: Image Reviewed (no i/e) EKG: Image Reviewed (sr) Problem List - Problems (1) Anemia Code(s): D64.9 - ANEMIA, UNSPECIFIED Qualifiers: Anemia type: unspecified type Qualified Code(s): D64.9 - Anemia, unspecified (2) ESRD (end stage renal disease) Code(s): N18.6 - END STAGE RENAL DISEASE (3) HTN (hypertension) Code(s): I10 - ESSENTIAL (PRIMARY) HYPERTENSION Qualifiers: Hypertension type: unspecified Qualified Code(s): I10 - Essential (primary ) hypertension (4) Abnormal liver function test Code(s): R79.89 - OTHER SPECIFIED ABNORMAL FINDINGS OF BLOOD CHEMISTRY (5) Abscess of lip Code(s): K13.0 - DISEASES OF LIPS (6) Acute bronchitis Code(s): J20.9 - ACUTE BRONCHITIS, UNSPECIFIED (7) Acute cholecystitis Code(s): K81.0 - ACUTE CHOLECYSTITIS (8) Acute prerenal azotemia Code(s): R79.89 - OTHER SPECIFIED ABNORMAL FINDINGS OF BLOOD CHEMISTRY (9) Acute respiratory failure Code(s): J96.00 - ACUTE RESPIRATORY FAILURE, UNSP W HYPOXIA OR HYPERCAPNIA Qualifiers: (10) [id number] kidney injury Code(s): N17.9 - ACUTE KIDNEY FAILURE, UNSPECIFIED; N18.9 - CHRONIC KIDNEY DISEASE, UNSPECIFIED (11) Amputated toe Code(s): Z89.429 - ACQUIRED ABSENCE OF OTHER TOE(S), UNSPECIFIED SIDE (12) Anemia Code(s): D64.9 - ANEMIA, UNSPECIFIED Qualifiers: (13) Anxiety Code(s): F41.9 - ANXIETY DISORDER, UNSPECIFIED (14) Asthma Code(s): J45.909 - UNSPECIFIED ASTHMA, UNCOMPLICATED (15) CAD (coronary artery disease) Code(s): I25.10 - ATHSCL HEART DISEASE OF [place] CORONARY ARTERY W/O ANG PCTRS Qualifiers: (16) CKD stage 5 secondary to hypertension Code(s): I12.0 - HYP CHR KIDNEY DISEASE W STAGE 5 CHR KIDNEY DISEASE OR ESRD; N18.5 - CHRONIC KIDNEY DISEASE, STAGE 5 (17) COPD (chronic obstructive pulmonary disease) Code(s): J44.9 - CHRONIC OBSTRUCTIVE PULMONARY DISEASE, UNSPECIFIED (18) Cellulitis Code(s): L03.90 - CELLULITIS, UNSPECIFIED (19) Cellulitis of foot, right Code(s): L03.115 - CELLULITIS OF RIGHT LOWER LIMB (20) Cellulitis of left foot Code(s): L03.116 - CELLULITIS OF LEFT LOWER LIMB (21) Cellulitis of right foot due to methicillin-resistant Staphylococcus aureus Code(s): L03.115 - CELLULITIS OF RIGHT LOWER LIMB; B95.62 - METHICILLIN RESIS STAPH INFCT CAUSING DISEASES CLASSD ELSWHR (22) Chest pain Code(s): R07.9 - CHEST PAIN, UNSPECIFIED (23) Cholecystitis Code(s): K81.9 - CHOLECYSTITIS, UNSPECIFIED (24) Choledocholithiasis with acute cholecystitis Code(s): K80.42 - CALCULUS OF BILE DUCT W ACUTE CHOLECYSTITIS W/O OBSTRUCTION (25) Choledocholithiasis with obstruction Code(s): K80.51 - CALCULUS OF BILE DUCT W/O CHOLANGITIS OR CHOLECYST W OBST (26) Cholelithiasis Code(s): K80.20 - CALCULUS OF GALLBLADDER W/O CHOLECYSTITIS W/O OBSTRUCTION (27) Cholelithiasis and acute cholecystitis with obstruction Code(s): K80.01 - CALCULUS OF GALLBLADDER W ACUTE CHOLECYSTITIS W OBSTRUCTION (28) Chronic diarrhea Code(s): K52.9 - NONINFECTIVE GASTROENTERITIS AND COLITIS, UNSPECIFIED (29) Chronic renal disease Code(s): N18.9 - CHRONIC KIDNEY DISEASE, UNSPECIFIED (30) Coagulopathy Code(s): D68.9 - COAGULATION DEFECT, UNSPECIFIED (31) Cough Code(s): R05 - COUGH (32) Cyst of left kidney Code(s): 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6 - END STAGE RENAL DISEASE; Z99.2 - DEPENDENCE ON RENAL DIALYSIS (40) Elevated LFTs Code(s): R79.89 - OTHER SPECIFIED ABNORMAL FINDINGS OF BLOOD CHEMISTRY (41) Elevated troponin Code(s): R74.8 - ABNORMAL LEVELS OF OTHER SERUM ENZYMES (42) Fall Code(s): W19.XXXA - UNSPECIFIED FALL, INITIAL ENCOUNTER (43) Fever Code(s): R50.9 - FEVER, UNSPECIFIED (44) Fever and other physiologic disturbances of temperature regulation Code(s): R68.89 - OTHER GENERAL SYMPTOMS AND SIGNS (45) Gall stone pancreatitis Code(s): K85.1 - BILIARY ACUTE PANCREATITIS * DO NOT USE * (46) Headache Code(s): R51 - HEADACHE (47) Hemodialysis patient Code(s): Z99.2 - DEPENDENCE ON RENAL DIALYSIS (48) Herniated disc Code(s): UNB7902 - (49) Hx of antibiotic allergy Code(s): Z88.1 - ALLERGY STATUS TO OTHER ANTIBIOTIC AGENTS STATUS (50) Hyperkalemia Code(s): E87.5 - HYPERKALEMIA (51) Hyperkalemia Code(s): E87.5 - HYPERKALEMIA (52) Hyperlipidemia associated with type 2 diabetes mellitus Code(s): E11.69 - TYPE 2 DIABETES MELLITUS WITH OTHER SPECIFIED COMPLICATION; E78.5 - HYPERLIPIDEMIA, UNSPECIFIED (53) Hypertensive heart disease Code(s): I11.9 - HYPERTENSIVE HEART DISEASE WITHOUT HEART FAILURE Qualifiers: (54) Hypoglycemia Code(s): E16.2 - HYPOGLYCEMIA, UNSPECIFIED (55) Insomnia Code(s): G47.00 - INSOMNIA, UNSPECIFIED (56) Insulin dependent diabetes mellitus Code(s): E11.9 - TYPE 2 DIABETES MELLITUS WITHOUT COMPLICATIONS; Z79.4 - CARE HOME (CURRENT) USE OF INSULIN (57) Knee pain Code(s): M25.569 - PAIN IN UNSPECIFIED KNEE (58) Leukocytosis Code(s): D72.829 - ELEVATED WHITE BLOOD CELL COUNT, UNSPECIFIED (59) Lightheadedness Code(s): R42 - DIZZINESS AND GIDDINESS (60) Lumbar nerve root impingement Code(s): M54.16 - RADICULOPATHY, LUMBAR REGION (61) Missed dialysis Code(s): QTC2018 - (62) Nausea & vomiting Code(s): R11.2 - NAUSEA WITH VOMITING, UNSPECIFIED (63) Osteomyelitis Code(s): M86.9 - OSTEOMYELITIS, UNSPECIFIED (64) Osteomyelitis of ankle and foot Code(s): M86.9 - OSTEOMYELITIS, UNSPECIFIED (65) PAD (peripheral artery disease) Code(s): I73.9 - PERIPHERAL VASCULAR DISEASE, UNSPECIFIED (66) PAD (peripheral artery disease) Code(s): I73.9 - PERIPHERAL VASCULAR DISEASE, UNSPECIFIED (67) Pre-operative cardiovascular examination Code(s): Z01.810 - ENCOUNTER FOR PREPROCEDURAL CARDIOVASCULAR EXAMINATION (68) Pre-operative cardiovascular examination, myocardial ischemia Code(s): I25.5 - ISCHEMIC CARDIOMYOPATHY; Z01.810 - ENCOUNTER FOR PREPROCEDURAL CARDIOVASCULAR EXAMINATION (69) Renal failure, chronic Code(s): N18.9 - CHRONIC KIDNEY DISEASE, UNSPECIFIED Qualifiers: (70) S/P femoropopliteal bypass surgery Code(s): Z95.828 - PRESENCE OF OTHER VASCULAR IMPLANTS AND GRAFTS (71) S/P laparoscopic cholecystectomy Code(s): Z90.49 - ACQUIRED ABSENCE OF OTHER SPECIFIED PARTS OF DIGESTIVE TRACT (72) Subendocardial ischemia Code(s): I24.8 - OTHER FORMS OF ACUTE ISCHEMIC HEART DISEASE (73) UTI (urinary tract infection) Code(s): N39.0 - URINARY TRACT INFECTION, SITE NOT SPECIFIED (74) Uncontrolled hypertension Code(s): I10 - ESSENTIAL (PRIMARY) HYPERTENSION (75) Vasospasm mechanism Code(s): I73.9 - PERIPHERAL VASCULAR DISEASE, UNSPECIFIED (76) Vasospasm of peripheral artery Code(s): I73.9 - PERIPHERAL VASCULAR DISEASE, UNSPECIFIED (77) Viral illness Code(s): B34.9 - VIRAL INFECTION, UNSPECIFIED (78) Weakness Code(s): R53.1 - WEAKNESS Assessment/Plan 83 y.o ESRD on iHD (MWF, last today, 2/3 session), HTN, HLD, anemia, DM who presents from iHD for asymptomatic HTN after missing her Coreg. BP well controlled now after restarting meds Plan cont bp meds, HD telemetry echo Coverage dr. Amaral
[2019-05-25] MEDS: CARVEDILOL 6.25 MG TABLET (FP) PO SCH ×2 (09:08→21:46)
[2019-05-25] MEDS: CALCITRIOL 0.25 MCG CAPSULE (FP) PO SCH (09:09)
[2019-05-25] MEDS: ASPIRIN 81 MG CHEWABLE TABLETS PO SCH (09:10)
[2019-05-25] MEDS: CALCIUM ACETATE 667 MG CAPSULE (FP) PO SCH ×3 (09:11→18:59)
[2019-05-25] MEDS: CHOLESTYRAMINE/ASPARTAME 4 GM PACKET PO SCH ×2 (09:12→21:46)
--- NOTE | 2019-05-25 09:52 | EKG ---
Test Reason : Blood Pressure : / mmHG Vent. Rate : 080 BPM Atrial Rate : 080 BPM P-R Int : 174 ms QRS Dur : 094 ms QT Int : 418 ms P-R-T Axes : 046 041 076 degrees QTc Int : 482 ms NORMAL SINUS RHYTHM SEPTAL INFARCT , AGE UNDETERMINED NONSPECIFIC ST ABNORMALITY ABNORMAL ECG Confirmed by DELMY JACKSON MD ([id number]) on 05/25/2019 9:51:49 AM Referred By: Confirmed By:DELMY JACKSON MD
[2019-05-25] MEDS ORDERED: NIFEdipine E.R. 90 MG TABLET (FP) PO SCH (10:00)
--- NOTE | 2019-05-25 12:20 | HP ---
Admitting History and Physical - Primary Care Physician PCP: Jarrett Barahona - Admission Chief Complaint: High Blood pressure History of Present Illness: Pt wiht ESRD on HD, went to HD center yesterday, wound to have SBP of 190 before HD; during HD SBP atill high, per pt up to 217; pt wa sent to ER before ending HD. In ER it was noticed to have Q in V1 and V2. Pt was admitted to telemetry. History Source: Patient - Past Medical History Cardiovascular: Yes: HTN, Hyperlipdemia, Murmur, Other (PAD) Pulmonary: Yes: Asthma, COPD Hepatobiliary: Yes: Cholelithiasis, Choledocholithiasis Renal/: Yes: Renal Inusuff, Hemodialysis Heme/Onc: Yes: Anemia Infectious Disease: Yes: Other (history of osteomyelitis in the past) Endocrine: Yes: Diabetes Mellitus - Past Surgical History Past Surgical History: Yes: Amputation (1-st R toe amputation), Bypass (Right fem pop bypass) - Smoking History Smoking history: Current every day smoker Have you smoked in the past 12 months: Yes Aproximately how many cigarettes per day: 30 If you are a former smoker, when did you quit?: 08/10/2012 - Alcohol/Substance Use Hx Alcohol Use: Yes History of Substance Use: reports: None - Social History ADL: Independent 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, 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, 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 Travel: No Home Medications - Allergies Allergies/Adverse Reactions: Allergies Allergy/AdvReac Type Severity Reaction Status Date / Time iodine Allergy Rash Verified 05/11/19 07:19 penicillin V Allergy Verified 05/11/19 07:19 shellfish derived Allergy Rash Verified 05/11/19 07:19 vancomycin Allergy Verified 05/11/19 07:19 azithromycin AdvReac Verified 05/11/19 07:19 - Home Medications Home Medications: Ambulatory Orders Alprazolam [Xanax] 0.25 mg PO BID PRN 02/19/19 Amitriptyline HCl [Elavil -] 25 mg PO HS 02/19/19 Aspirin [ASA -] 81 mg PO DAILY 02/19/19 Atorvastatin Ca [Lipitor] 10 mg PO HS 02/19/19 Calcitriol [Calcitriol -] 0.25 mcg PO DAILY 02/19/19 Calcium Acetate 667 mg PO TID 02/19/19 Carvedilol [Coreg -] 6.25 mg PO BID 02/19/19 Cholestyramine [Cholestyramine Resin] 4 gm PO BID 02/19/19 Nifedipine [Procardia Xl] 90 mg PO DAILY 02/19/19 Acetaminophen [Tylenol .Regular Strength -] 650 mg PO Q6H PRN tablet 04/19/19 Ferrous Sulfate 325 mg PO BID 05/25/19 Losartan Potassium 100 mg PO DAILY 05/25/19 Review of Systems - Review of Systems Constitutional: denies: Chills, Fever Eyes: denies: Blurred Vision, Photophobia, Recent Change in Vision HENT: denies: Ear Discharge, Nasal Congestion, Throat Pain Neck: denies: Stiffness, Tenderness Cardiovascular: denies: Chest Pain, Edema, Palpitations Respiratory: denies: Cough, SOB, Wheezing Gastrointestinal: denies: Abdominal Pain, Diarrhea, Nausea Genitourinary: denies: Burning, Dysuria, Flank Pain Musculoskeletal: denies: Back Pain, Joint Pain Integumentary: denies: Eczema, Rash Neurological: denies: Change in LOC, Change in Speech, Numbness, Weakness Endocrine: denies: Excessive Sweating, Intolerance to Cold Hematology/Lymphatic: denies: Easily Bruised, Excessive Bleeding Psychiatric: denies: Anxiety, Depression Physical Examination Vital Signs: Vital Signs Temperature 98.6 F 05/25/19 10:00 Pulse Rate 77 05/25/19 10:00 Respiratory Rate 18 05/25/19 10:00 Blood Pressure 155/79 05/25/19 10:00 O2 Sat by Pulse Oximetry (%) 98 05/25/19 09:00 Constitutional: Yes: No Distress, Calm Eyes: Yes: Conjunctiva Clear, EOM Intact HENT: No: Epistaxis, Pharyngeal Erythema, Rhinnorhea Neck: Yes: Trachea Midline. No: Lymphadenopathy Cardiovascular: Yes: Regular Rate and Rhythm, S1, S2 Respiratory: Yes: Regular, CTA Bilaterally Gastrointestinal: Yes: Normal Bowel Sounds, Soft. No: Tenderness ...Rectal Exam: Yes: Deferred Renal/: No: CVA Tenderness - Left, CVA Tenderness - Right Breast(s): Yes: Other (deferred) Musculoskeletal: No: Back Pain, Joint Swelling Extremities: No: Cold, Cool, Cyanosis Edema: No Neurological: Yes: Alert, Oriented, Other (motor and sensory examination is symetric in UE/ LE/ face) Psychiatric: Yes: Alert, Oriented Labs: CBC, BMP 05/25/19 06:53 05/25/19 06:53 Imaging - Results Chest X-ray: Report Reviewed Problem List - Problems (1) HTN (hypertension) Code(s): I10 - ESSENTIAL (PRIMARY) HYPERTENSION Qualifiers: Hypertension type: unspecified Qualified Code(s): I10 - Essential (primary ) hypertension (2) ESRD (end stage renal disease) Code(s): N18.6 - END STAGE RENAL DISEASE (3) CAD (coronary artery disease) Code(s): I25.10 - ATHSCL HEART DISEASE OF [place] CORONARY ARTERY W/O ANG PCTRS Qualifiers: (4) COPD (chronic obstructive pulmonary disease) Code(s): J44.9 - CHRONIC OBSTRUCTIVE PULMONARY DISEASE, UNSPECIFIED (5) Diabetes Code(s): E11.9 - TYPE 2 DIABETES MELLITUS WITHOUT COMPLICATIONS Assessment/Plan Admit to monitor bed. Cardio consult. Reanal consult. To monitor BP; To use Hydralazine PRN. Consider increasing Nifedipine AM labs
--- NOTE | 2019-05-25 14:05 | CON.NEP ---
Consult Consult Specialty:: nephrology Reason for Consultation:: esrd - History of Present Illness Chief Complaint: htn History of Present Illness: Pt had uncontrolled hypertension yesterday before and during hd. Was sent to hospital. No chest pain or fever reported. - History Source History Provided By: Patient - Past Medical History Cardio/Vascular: Yes: HTN, Hyperlipdemia, Murmur, Other (PAD) Pulmonary: Yes: Asthma, COPD Hepatobiliary: Yes: Cholelithiasis, Choledocholithiasis Renal/: Yes: Renal Inusuff, Hemodialysis Infectious Disease: Yes: Other (history of osteomyelitis in the past) Endocrine: Yes: Diabetes Mellitus - Past Surgical History Past Surgical History: Yes: Amputation (1-st R toe amputation), Bypass (Right fem pop bypass) - Alcohol/Substance Use Hx Alcohol Use: Yes History of Substance Use: reports: None - Smoking History Smoking history: Current every day smoker Have you smoked in the past 12 months: Yes Aproximately how many cigarettes per day: 30 If you are a former smoker, when did you quit?: 08/10/2012 - Social History Usual Living Arrangement: Alone ADL: Independent 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, 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, 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 Travel: No Home Medications - Allergies Allergies/Adverse Reactions: Allergies Allergy/AdvReac Type Severity Reaction Status Date / Time iodine Allergy Rash Verified 05/11/19 07:19 penicillin V Allergy Verified 05/11/19 07:19 shellfish derived Allergy Rash Verified 05/11/19 07:19 vancomycin Allergy Verified 05/11/19 07:19 azithromycin AdvReac Verified 05/11/19 07:19 - Home Medications Home Medications: Ambulatory Orders Alprazolam [Xanax] 0.25 mg PO BID PRN 02/19/19 Amitriptyline HCl [Elavil -] 25 mg PO HS 02/19/19 Aspirin [ASA -] 81 mg PO DAILY 02/19/19 Atorvastatin Ca [Lipitor] 10 mg PO HS 02/19/19 Calcitriol [Calcitriol -] 0.25 mcg PO DAILY 02/19/19 Calcium Acetate 667 mg PO TID 02/19/19 Carvedilol [Coreg -] 6.25 mg PO BID 02/19/19 Cholestyramine [Cholestyramine Resin] 4 gm PO BID 02/19/19 Nifedipine [Procardia Xl] 90 mg PO DAILY 02/19/19 Acetaminophen [Tylenol .Regular Strength -] 650 mg PO Q6H PRN tablet 04/19/19 Ferrous Sulfate 325 mg PO BID 05/25/19 Losartan Potassium 100 mg PO DAILY 05/25/19 Review of Systems - Review of Systems Constitutional: reports: No Symptoms Eyes: reports: No Symptoms HENT: reports: No Symptoms Neck: reports: No Symptoms Cardiovascular: reports: No Symptoms Respiratory: reports: No Symptoms Gastrointestinal: reports: No Symptoms Genitourinary: reports: No Symptoms Breasts: reports: No Symptoms Reported Musculoskeletal: reports: No Symptoms Integumentary: reports: No Symptoms Neurological: reports: No Symptoms Endocrine: reports: No Symptoms Hematology/Lymphatic: reports: No Symptoms Psychiatric: reports: No Symptoms Nephrology Consult - Height Height: 5 ft 3 in - Weight Weight: 115 lb - BMI Body Mass Index (BMI): 20.3 - Lab Results CBC,BMP: CBC, BMP 05/25/19 06:53 05/25/19 06:53 Anion Gap: Anion Gap Anion Gap 7 MMOL/L (8-16) L 05/25/19 06:53 - Imaging Chest X-ray: Report Reviewed - Physical Examination Vital Signs: Vital Signs Temperature 98.2 F 05/25/19 13:29 Pulse Rate 76 05/25/19 13:29 Respiratory Rate 18 05/25/19 13:29 Blood Pressure 162/61 05/25/19 13:29 O2 Sat by Pulse Oximetry (%) 98 05/25/19 09:00 Constitutional: Yes: No Distress, Calm Eyes: Yes: Conjunctiva Clear, EOM Intact HENT: Yes: Atraumatic, Normocephalic Neck: Yes: Supple, Trachea Midline Cardiovascular: Yes: Regular Rate and Rhythm, Murmur Respiratory: Yes: Regular, CTA Bilaterally Renal/: No: Bladder Distention Access for Hemodialysis: Permacath Musculoskeletal: Yes: WNL Extremities: Yes: WNL Edema: No Wound/Incision: Yes: Clean/Dry, Well Approximated Neurological: Yes: Alert, Oriented Psychiatric: Yes: Alert, Oriented Assessment/Plan esrd being dialyzed via a permcath because she has never wanted an avf htn cardiac murmur reported by patient to be due to rheumatic fever as a child phosphorus level is good PLAN continue current management agree with carvedilol and procardia no urgent need for hd for now does not require additional doses of JACOB now MV
[2019-05-25] MEDS: hydrALAZINE HCL 10 MG TABLET PO SCH ×2 (15:14→21:45)
[2019-05-25] MEDS: ALPRAZolam 0.25 MG TABLET PO PRN (17:19)
[2019-05-25] MEDS: ATORVASTATIN CA 10 MG TABLET (FP) PO SCH (21:45)
[2019-05-26 06:33] LABS: HEMATOCRIT 32.2 % (32.4-45.2); HEMOGLOBIN 10.6 GM/dL (10.7-15.3); MCH 31.1 pg (25.7-33.7); MCHC 32.8 g/dl (32.0-36.0); MEAN CELL VOLUME 94.8 fl (80-96); MEAN PLT VOLUME 8.4 fl (7.5-11.1); PLATELET COUNT 222 K/MM3 (134-434); RDW 15.8 % (11.6-15.6); WHITE BLOOD COUNT 6.7 K/mm3 (4.0-10.0)
[2019-05-26 06:53] LABS: ANION GAP 10 MMOL/L (8-16); BLOOD UREA NITROGEN 36.1 mg/dL (7-18); CHLORIDE 107 mmol/L (98-107); CO2 24 mmol/L (21-32); CREATININE 5.9 mg/dL (0.55-1.3); GLUCOSE,RANDOM 93 mg/dL (74-106); POTASSIUM 4.5 mmol/L (3.5-5.1); SODIUM 140 mmol/L (136-145)
[2019-05-26] MEDS: ALPRAZolam 0.25 MG TABLET PO PRN ×3 (08:25→21:29)
[2019-05-26] MEDS: CALCIUM ACETATE 667 MG CAPSULE (FP) PO SCH ×3 (08:25→17:28)
--- NOTE | 2019-05-26 08:35 | PN ---
Progress Note, Physician History of Present Illness: The pt is an 83F w/ a history of ESRD on iHD (MWF, last today, 2/3 session), HTN , HLD, anemia, DM who presents from iHD for asymptomatic HTN. The pt reports HTN to the SBP 190s-200s just prior to and during iHD. She denies having any symptoms at that time or currently. She states she's had this happen once before and was given clonidine for her HTN. She was also given clonidine today, 0.1mg at 1850. The pt reports that she did not take her morning or evening Coreg today (6.25mg). She denies current symptoms including PARR, vision changes, dizziness, chest pain , SOB, abdominal pain, N/V/C/D, dysuria, hematuria, or rash 05/24/19 21:57 - Current Medication List Current Medications: Active Medications Acetaminophen (Tylenol -) 650 mg PO Q6H PRN PRN Reason: FEVER Last Admin: 05/25/19 02:00 Dose: 650 mg Alprazolam (Xanax -) 0.25 mg PO Q6H PRN PRN Reason: ANXIETY Last Admin: 05/26/19 08:25 Dose: 0.25 mg Amitriptyline HCl (Elavil -) 25 mg PO HS [facility] Last Admin: 05/25/19 21:46 Dose: 25 mg Aspirin (Asa -) 81 mg PO DAILY [facility] Last Admin: 05/25/19 09:10 Dose: 81 mg Atorvastatin Calcium (Lipitor -) 10 mg PO HS [facility] Last Admin: 05/25/19 21:45 Dose: 10 mg Calcitriol (Rocaltrol -) 0.25 mcg PO DAILY [facility] Last Admin: 05/25/19 09:09 Dose: 0.25 mcg Calcium Acetate (Phoslo -) 667 mg PO TIDCM [facility] Last Admin: 05/26/19 08:25 Dose: 667 mg Carvedilol (Coreg -) 6.25 mg PO BID [facility] Last Admin: 05/25/19 21:46 Dose: 6.25 mg Cholestyramine Resin (Questran Light Packet -) 4 gm PO BID [facility] Last Admin: 05/25/19 21:46 Dose: 4 gm Nicotine (Nicoderm Patch -) 21 mg TD DAILY [facility] Nifedipine (Procardia Xl -) 120 mg PO DAILY BEATRIZ - Objective Vital Signs: Vital Signs Temperature 98.2 F 05/26/19 06:00 Pulse Rate 74 05/26/19 06:00 Respiratory Rate 18 05/26/19 06:00 Blood Pressure 135/68 05/26/19 06:00 O2 Sat by Pulse Oximetry (%) 99 05/25/19 21:00 Eyes: Yes: WNL, Conjunctiva Clear, EOM Intact HENT: Yes: WNL, Atraumatic, Normocephalic Neck: Yes: WNL, Supple, Trachea Midline Cardiovascular: Yes: WNL, Regular Rate and Rhythm Respiratory: Yes: WNL, Regular, CTA Bilaterally Gastrointestinal: Yes: WNL, Normal Bowel Sounds Genitourinary: Yes: WNL Musculoskeletal: Yes: WNL Extremities: Yes: WNL Edema: No Integumentary: Yes: WNL Neurological: Yes: WNL, Alert, Oriented ...Motor Strength: WNL Psychiatric: Yes: WNL Labs: CBC, BMP 05/26/19 05:24 05/26/19 05:24 Problem List - Problems (1) Anemia Code(s): D64.9 - ANEMIA, UNSPECIFIED Qualifiers: Anemia type: unspecified type Qualified Code(s): D64.9 - Anemia, unspecified (2) ESRD (end stage renal disease) Code(s): N18.6 - END STAGE RENAL DISEASE (3) HTN (hypertension) Code(s): I10 - ESSENTIAL (PRIMARY) HYPERTENSION Qualifiers: Hypertension type: unspecified Qualified Code(s): I10 - Essential (primary ) hypertension (4) Abnormal liver function test Code(s): R79.89 - OTHER SPECIFIED ABNORMAL FINDINGS OF BLOOD CHEMISTRY (5) Abscess of lip Code(s): K13.0 - DISEASES OF LIPS (6) Acute bronchitis Code(s): J20.9 - ACUTE BRONCHITIS, UNSPECIFIED (7) Acute cholecystitis Code(s): K81.0 - ACUTE CHOLECYSTITIS (8) Acute prerenal azotemia Code(s): R79.89 - OTHER SPECIFIED ABNORMAL FINDINGS OF BLOOD CHEMISTRY (9) Acute respiratory failure Code(s): J96.00 - ACUTE RESPIRATORY FAILURE, UNSP W HYPOXIA OR HYPERCAPNIA Qualifiers: (10) [id number] kidney injury Code(s): N17.9 - ACUTE KIDNEY FAILURE, UNSPECIFIED; N18.9 - CHRONIC KIDNEY DISEASE, UNSPECIFIED (11) Amputated toe Code(s): Z89.429 - ACQUIRED ABSENCE OF OTHER TOE(S), UNSPECIFIED SIDE (12) Anemia Code(s): D64.9 - ANEMIA, UNSPECIFIED Qualifiers: (13) Anxiety Code(s): F41.9 - ANXIETY DISORDER, UNSPECIFIED (14) Asthma Code(s): J45.909 - UNSPECIFIED ASTHMA, UNCOMPLICATED (15) CAD (coronary artery disease) Code(s): I25.10 - ATHSCL HEART DISEASE OF [place] CORONARY ARTERY W/O ANG PCTRS Qualifiers: (16) CKD stage 5 secondary to hypertension Code(s): I12.0 - HYP CHR KIDNEY DISEASE W STAGE 5 CHR KIDNEY DISEASE OR ESRD; N18.5 - CHRONIC KIDNEY DISEASE, STAGE 5 (17) COPD (chronic obstructive pulmonary disease) Code(s): J44.9 - CHRONIC OBSTRUCTIVE PULMONARY DISEASE, UNSPECIFIED (18) Cellulitis Code(s): L03.90 - CELLULITIS, UNSPECIFIED (19) Cellulitis of foot, right Code(s): L03.115 - CELLULITIS OF RIGHT LOWER LIMB (20) Cellulitis of left foot Code(s): L03.116 - CELLULITIS OF LEFT LOWER LIMB (21) Cellulitis of right foot due to methicillin-resistant Staphylococcus aureus Code(s): L03.115 - CELLULITIS OF RIGHT LOWER LIMB; B95.62 - METHICILLIN RESIS STAPH INFCT CAUSING DISEASES CLASSD ELSWHR (22) Chest pain Code(s): R07.9 - CHEST PAIN, UNSPECIFIED (23) Cholecystitis Code(s): K81.9 - CHOLECYSTITIS, UNSPECIFIED (24) Choledocholithiasis with acute cholecystitis Code(s): K80.42 - CALCULUS OF BILE DUCT W ACUTE CHOLECYSTITIS W/O OBSTRUCTION (25) Choledocholithiasis with obstruction Code(s): K80.51 - CALCULUS OF BILE DUCT W/O CHOLANGITIS OR CHOLECYST W OBST (26) Cholelithiasis Code(s): K80.20 - CALCULUS OF GALLBLADDER W/O CHOLECYSTITIS W/O OBSTRUCTION (27) Cholelithiasis and acute cholecystitis with obstruction Code(s): K80.01 - CALCULUS OF GALLBLADDER W ACUTE CHOLECYSTITIS W OBSTRUCTION (28) Chronic diarrhea Code(s): K52.9 - NONINFECTIVE GASTROENTERITIS AND COLITIS, UNSPECIFIED (29) Chronic renal disease Code(s): N18.9 - CHRONIC KIDNEY DISEASE, UNSPECIFIED (30) Coagulopathy Code(s): D68.9 - COAGULATION DEFECT, UNSPECIFIED (31) Cough Code(s): R05 - COUGH (32) Cyst of left kidney Code(s): 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6 - END STAGE RENAL DISEASE; Z99.2 - DEPENDENCE ON RENAL DIALYSIS (40) Elevated LFTs Code(s): R79.89 - OTHER SPECIFIED ABNORMAL FINDINGS OF BLOOD CHEMISTRY (41) Elevated troponin Code(s): R74.8 - ABNORMAL LEVELS OF OTHER SERUM ENZYMES (42) Fall Code(s): W19.XXXA - UNSPECIFIED FALL, INITIAL ENCOUNTER (43) Fever Code(s): R50.9 - FEVER, UNSPECIFIED (44) Fever and other physiologic disturbances of temperature regulation Code(s): R68.89 - OTHER GENERAL SYMPTOMS AND SIGNS (45) Gall stone pancreatitis Code(s): K85.1 - BILIARY ACUTE PANCREATITIS * DO NOT USE * (46) Headache Code(s): R51 - HEADACHE (47) Hemodialysis patient Code(s): Z99.2 - DEPENDENCE ON RENAL DIALYSIS (48) Herniated disc Code(s): [id number] - (49) Hx of antibiotic allergy Code(s): Z88.1 - ALLERGY STATUS TO OTHER ANTIBIOTIC AGENTS STATUS (50) Hyperkalemia Code(s): E87.5 - HYPERKALEMIA (51) Hyperkalemia Code(s): E87.5 - HYPERKALEMIA (52) Hyperlipidemia associated with type 2 diabetes mellitus Code(s): E11.69 - TYPE 2 DIABETES MELLITUS WITH OTHER SPECIFIED COMPLICATION; E78.5 - HYPERLIPIDEMIA, UNSPECIFIED (53) Hypertensive heart disease Code(s): I11.9 - HYPERTENSIVE HEART DISEASE WITHOUT HEART FAILURE Qualifiers: (54) Hypoglycemia Code(s): E16.2 - HYPOGLYCEMIA, UNSPECIFIED (55) Insomnia Code(s): G47.00 - INSOMNIA, UNSPECIFIED (56) Insulin dependent diabetes mellitus Code(s): E11.9 - TYPE 2 DIABETES MELLITUS WITHOUT COMPLICATIONS; Z79.4 - CARE HOME (CURRENT) USE OF INSULIN (57) Knee pain Code(s): M25.569 - PAIN IN UNSPECIFIED KNEE (58) Leukocytosis Code(s): D72.829 - ELEVATED WHITE BLOOD CELL COUNT, UNSPECIFIED (59) Lightheadedness Code(s): R42 - DIZZINESS AND GIDDINESS (60) Lumbar nerve root impingement Code(s): M54.16 - RADICULOPATHY, LUMBAR REGION (61) Missed dialysis Code(s): NWL0515 - (62) Nausea & vomiting Code(s): R11.2 - NAUSEA WITH VOMITING, UNSPECIFIED (63) Osteomyelitis Code(s): M86.9 - OSTEOMYELITIS, UNSPECIFIED (64) Osteomyelitis of ankle and foot Code(s): M86.9 - OSTEOMYELITIS, UNSPECIFIED (65) PAD (peripheral artery disease) Code(s): I73.9 - PERIPHERAL VASCULAR DISEASE, UNSPECIFIED (66) PAD (peripheral artery disease) Code(s): I73.9 - PERIPHERAL VASCULAR DISEASE, UNSPECIFIED (67) Pre-operative cardiovascular examination Code(s): Z01.810 - ENCOUNTER FOR PREPROCEDURAL CARDIOVASCULAR EXAMINATION (68) Pre-operative cardiovascular examination, myocardial ischemia Code(s): I25.5 - ISCHEMIC CARDIOMYOPATHY; Z01.810 - ENCOUNTER FOR PREPROCEDURAL CARDIOVASCULAR EXAMINATION (69) Renal failure, chronic Code(s): N18.9 - CHRONIC KIDNEY DISEASE, UNSPECIFIED Qualifiers: (70) S/P femoropopliteal bypass surgery Code(s): Z95.828 - PRESENCE OF OTHER VASCULAR IMPLANTS AND GRAFTS (71) S/P laparoscopic cholecystectomy Code(s): Z90.49 - ACQUIRED ABSENCE OF OTHER SPECIFIED PARTS OF DIGESTIVE TRACT (72) Subendocardial ischemia Code(s): I24.8 - OTHER FORMS OF ACUTE ISCHEMIC HEART DISEASE (73) UTI (urinary tract infection) Code(s): N39.0 - URINARY TRACT INFECTION, SITE NOT SPECIFIED (74) Uncontrolled hypertension Code(s): I10 - ESSENTIAL (PRIMARY) HYPERTENSION (75) Vasospasm mechanism Code(s): I73.9 - PERIPHERAL VASCULAR DISEASE, UNSPECIFIED (76) Vasospasm of peripheral artery Code(s): I73.9 - PERIPHERAL VASCULAR DISEASE, UNSPECIFIED (77) Viral illness Code(s): B34.9 - VIRAL INFECTION, UNSPECIFIED (78) Weakness Code(s): R53.1 - WEAKNESS Assessment/Plan 83 y.o ESRD on iHD (MWF, last today, 2/3 session), HTN, HLD, anemia, DM who presents from iHD for asymptomatic HTN after missing her Coreg. BP well controlled now after restarting meds Plan cont bp meds, HD telemetry echo Coverage dr. Amaral
[2019-05-26] MEDS: ASPIRIN 81 MG CHEWABLE TABLETS PO SCH (10:20)
[2019-05-26] MEDS: CARVEDILOL 6.25 MG TABLET (FP) PO SCH ×2 (10:20→21:29)
[2019-05-26] MEDS: NIFEdipine E.R 60 MG TABLET (UD) PO SCH (10:20)
[2019-05-26] MEDS: CALCITRIOL 0.25 MCG CAPSULE (FP) PO SCH (10:21)
[2019-05-26] MEDS: NICOTINE 21 MG/24 HOURS TOPICAL PATCH TD SCH (10:21)
[2019-05-26] MEDS: CHOLESTYRAMINE/ASPARTAME 4 GM PACKET PO SCH ×2 (10:21→21:29)
--- NOTE | 2019-05-26 12:13 | PN ---
Progress Note (short form) - Note Progress Note: RENAL Awake and alert wants to go home says she never had chest pain Last Vital Signs Temp Pulse Resp BP Pulse Ox 98.6 F 91 H 18 160/73 98 05/26/19 10:00 05/26/19 10:00 05/26/19 11:53 05/26/19 11:53 05/26/19 09:00 lungs clear cvs s1s2 rr abd soft ext no edema neuro a+ox3 CBC, BMP 05/26/19 05:24 05/26/19 05:24 IMPRESSION esrd being dialyzed via a permcath because she has never wanted an avf htn cardiac murmur reported by patient to be due to scarlet fever as a child phosphorus level is good PLAN continue current management agree with carvedilol and procardia will dialyze tomorrow and if stable can be discharged afterwards MV
--- NOTE | 2019-05-26 15:56 | PN ---
Progress Note, Physician History of Present Illness: Pt w/o SOB, CP, palpitations, abd pain, leg edema - Current Medication List Current Medications: Active Medications Acetaminophen (Tylenol -) 650 mg PO Q6H PRN PRN Reason: FEVER Last Admin: 05/25/19 02:00 Dose: 650 mg Alprazolam (Xanax -) 0.25 mg PO Q6H PRN PRN Reason: ANXIETY Last Admin: 05/26/19 15:38 Dose: 0.25 mg Amitriptyline HCl (Elavil -) 25 mg PO HS [facility] Last Admin: 05/25/19 21:46 Dose: 25 mg Aspirin (Asa -) 81 mg PO DAILY [facility] Last Admin: 05/26/19 10:20 Dose: 81 mg Atorvastatin Calcium (Lipitor -) 10 mg PO HS [facility] Last Admin: 05/25/19 21:45 Dose: 10 mg Calcitriol (Rocaltrol -) 0.25 mcg PO DAILY [facility] Last Admin: 05/26/19 10:21 Dose: 0.25 mcg Calcium Acetate (Phoslo -) 667 mg PO TIDCM [facility] Last Admin: 05/26/19 11:51 Dose: 667 mg Carvedilol (Coreg -) 6.25 mg PO BID [facility] Last Admin: 05/26/19 10:20 Dose: 6.25 mg Cholestyramine Resin (Questran Light Packet -) 4 gm PO BID [facility] Last Admin: 05/26/19 10:21 Dose: 4 gm Heparin Sodium (Porcine) (Heparin -) 1,000 unit IVPUSH ONCE ONE Stop: 05/26/19 12:15 Sodium Chloride (Normal Saline -) 250 mls @ 3,000 mls/hr IV PRN PRN PRN Reason: Hypotension during Dialysis Stop: 05/27/19 12:14 Nicotine (Nicoderm Patch -) 21 mg TD DAILY [facility] Last Admin: 05/26/19 10:21 Dose: 21 mg Nifedipine (Procardia Xl -) 120 mg PO DAILY [facility] Last Admin: 05/26/19 10:20 Dose: 120 mg - Objective Vital Signs: Vital Signs Temperature 98.4 F 05/26/19 14:00 Pulse Rate 84 05/26/19 14:00 Respiratory Rate 20 05/26/19 14:00 Blood Pressure 114/57 L 05/26/19 14:00 O2 Sat by Pulse Oximetry (%) 98 05/26/19 09:00 Constitutional: Yes: No Distress, Calm Cardiovascular: Yes: Regular Rate and Rhythm, S1, S2 Respiratory: Yes: Regular, CTA Bilaterally. No: Rales Gastrointestinal: Yes: Normal Bowel Sounds, Soft. No: Tenderness Edema: No Neurological: Yes: Alert, Oriented Labs: CBC, BMP 05/26/19 05:24 05/26/19 05:24 Problem List - Problems (1) HTN (hypertension) Code(s): I10 - ESSENTIAL (PRIMARY) HYPERTENSION Qualifiers: Hypertension type: unspecified Qualified Code(s): I10 - Essential (primary ) hypertension (2) ESRD (end stage renal disease) Code(s): N18.6 - END STAGE RENAL DISEASE (3) CAD (coronary artery disease) Code(s): I25.10 - ATHSCL HEART DISEASE OF [place] CORONARY ARTERY W/O ANG PCTRS Qualifiers: (4) COPD (chronic obstructive pulmonary disease) Code(s): J44.9 - CHRONIC OBSTRUCTIVE PULMONARY DISEASE, UNSPECIFIED (5) Diabetes Code(s): E11.9 - TYPE 2 DIABETES MELLITUS WITHOUT COMPLICATIONS Assessment/Plan Admitted to monitor bed. Cardio, Renal consults are appreciated. BP is better wiht increase in Nifedipine To monitor BP; for HD tomorrow.
[2019-05-26] MEDS: ATORVASTATIN CA 10 MG TABLET (FP) PO SCH (21:28)
[2019-05-26] MEDS: AMITRIPTYLINE HCL 25 MG TABLET (FP) PO SCH (21:29)
[2019-05-27] MEDS ORDERED: SODIUM CHLORIDE 250 ML IV PRN (06:21)
[2019-05-27] MEDS ORDERED: HEPARIN NA (PORCINE) 5,000 UNITS/ML 1ML VIAL IVPUSH ONE (06:30)
[2019-05-27] MEDS: ALPRAZolam 0.25 MG TABLET PO PRN ×3 (08:36→22:29)
[2019-05-27] MEDS: CALCIUM ACETATE 667 MG CAPSULE (FP) PO SCH ×3 (08:36→17:21)
[2019-05-27] MEDS: CALCITRIOL 0.25 MCG CAPSULE (FP) PO SCH (10:33)
[2019-05-27] MEDS: NIFEdipine E.R 60 MG TABLET (UD) PO SCH (10:33)
[2019-05-27] MEDS: ASPIRIN 81 MG CHEWABLE TABLETS PO SCH (10:33)
[2019-05-27] MEDS: NICOTINE 21 MG/24 HOURS TOPICAL PATCH TD SCH (10:33)
[2019-05-27] MEDS: CARVEDILOL 6.25 MG TABLET (FP) PO SCH ×2 (10:33→22:28)
[2019-05-27] MEDS ORDERED: LOSARTAN POTASSIUM 50 MG TABLET (FP) PO SCH (11:45)
--- NOTE | 2019-05-27 12:01 | PN ---
Progress Note, Physician History of Present Illness: Tolerated HD today, denies chest pain or dyspnea. - Current Medication List Current Medications: Active Medications Acetaminophen (Tylenol -) 650 mg PO Q6H PRN PRN Reason: FEVER Last Admin: 05/25/19 02:00 Dose: 650 mg Alprazolam (Xanax -) 0.25 mg PO Q6H PRN PRN Reason: ANXIETY Last Admin: 05/27/19 08:36 Dose: 0.25 mg Amitriptyline HCl (Elavil -) 25 mg PO HS [facility] Last Admin: 05/26/19 21:29 Dose: 25 mg Aspirin (Asa -) 81 mg PO DAILY [facility] Last Admin: 05/27/19 10:33 Dose: 81 mg Atorvastatin Calcium (Lipitor -) 10 mg PO HS [facility] Last Admin: 05/26/19 21:28 Dose: 10 mg Calcitriol (Rocaltrol -) 0.25 mcg PO DAILY [facility] Last Admin: 05/27/19 10:33 Dose: 0.25 mcg Calcium Acetate (Phoslo -) 667 mg PO TIDCM [facility] Last Admin: 05/27/19 11:54 Dose: 667 mg Carvedilol (Coreg -) 6.25 mg PO BID [facility] Last Admin: 05/27/19 10:33 Dose: 6.25 mg Cholestyramine Resin (Questran Light Packet -) 4 gm PO BID [facility] Last Admin: 05/26/19 21:29 Dose: Not Given Sodium Chloride (Normal Saline -) 250 mls @ 3,000 mls/hr IV PRN PRN PRN Reason: Hypotension during Dialysis Stop: 05/28/19 06:20 Losartan Potassium (Cozaar -) 50 mg PO DAILY [facility] Last Admin: 05/27/19 11:53 Dose: Not Given Nicotine (Nicoderm Patch -) 21 mg TD DAILY [facility] Last Admin: 05/27/19 10:33 Dose: 21 mg Nifedipine (Procardia Xl -) 120 mg PO DAILY [facility] Last Admin: 05/27/19 10:33 Dose: 120 mg - Objective Vital Signs: Vital Signs Temperature 98.2 F 05/27/19 07:05 Pulse Rate 87 05/27/19 10:15 Respiratory Rate 18 05/27/19 10:15 Blood Pressure 163/73 05/27/19 10:15 O2 Sat by Pulse Oximetry (%) 98 05/27/19 09:00 Constitutional: Yes: No Distress, Calm Neck: Yes: Supple Cardiovascular: Yes: Regular Rate and Rhythm Respiratory: Yes: Regular, CTA Bilaterally Gastrointestinal: Yes: Normal Bowel Sounds, Soft Edema: No Labs: CBC, BMP 05/26/19 05:24 05/26/19 05:24 - ....Imaging EKG: Report Reviewed (Tele: NSR) Problem List - Problems (1) Anemia Code(s): D64.9 - ANEMIA, UNSPECIFIED Qualifiers: Anemia type: due to chronic kidney disease Chronic kidney disease stage: on chronic dialysis Qualified Code(s): N18.6 - End stage renal disease; D63.1 - Anemia in chronic kidney disease; Z99.2 - Dependence on renal dialysis (2) HTN (hypertension) Code(s): I10 - ESSENTIAL (PRIMARY) HYPERTENSION Qualifiers: Hypertension type: unspecified Qualified Code(s): I10 - Essential (primary ) hypertension (3) CAD (coronary artery disease) Code(s): I25.10 - ATHSCL HEART DISEASE OF [place] CORONARY ARTERY W/O ANG PCTRS Qualifiers: Coronary Disease-Associated Artery/Lesion type: [place] artery [place] vs. transplanted heart: [place] heart Associated angina: without angina Qualified Code(s): I25.10 - Atherosclerotic heart disease of [place] coronary artery without angina pectoris (4) ESRD (end stage renal disease) on dialysis Code(s): N18.6 - END STAGE RENAL DISEASE; Z99.2 - DEPENDENCE ON RENAL DIALYSIS (5) Hyperlipidemia associated with type 2 diabetes mellitus Code(s): E11.69 - TYPE 2 DIABETES MELLITUS WITH OTHER SPECIFIED COMPLICATION; E78.5 - HYPERLIPIDEMIA, UNSPECIFIED (6) Insulin dependent diabetes mellitus Code(s): E11.9 - TYPE 2 DIABETES MELLITUS WITHOUT COMPLICATIONS; Z79.4 - BOBTAILER (CURRENT) USE OF INSULIN (7) PAD (peripheral artery disease) Code(s): I73.9 - PERIPHERAL VASCULAR DISEASE, UNSPECIFIED (8) S/P femoropopliteal bypass surgery Code(s): Z95.828 - PRESENCE OF OTHER VASCULAR IMPLANTS AND GRAFTS Assessment/Plan 06/01/2018 Echo: Normal LV and RV size and fxn, mild cLVH, mild MR, TR and AR 1. Hypertensive urgency after missing Coreg since resolved 2. End-stage renal disease on hemodialysis, dialysis noncompliance and resolved hyperkalemia 3. CAD with history of subendocardial [place]/demand ischemic injury angina pectoris 4. Diastolic LV dysfunction with clinical class 0 NYHA classification LV failure 5. Hypertensive cardiovascular disease 6. DM 7. Hypercholesterolemia 8. History of PAD post right fem-pop bypass, post toe amputation for osteomyelitis 9. COPD 10. Anemia of CKD PLAN: 1. Continue Corag 6.25 bid 2. Increased Procardia XL 120 qd 3. Continue Cozaar 50 qd 4. Continue ASA 81 qd 5. Continue Lipitor 10 qhs, Questran 4 bid 6. Hemodialysis as per renal service 7. F/u repeat echo
[2019-05-27] MEDS: CHOLESTYRAMINE/ASPARTAME 4 GM PACKET PO SCH ×2 (13:25→22:29)
--- NOTE | 2019-05-27 14:14 | PN ---
Progress Note (short form) - Note Progress Note: renal follow-up for ESRD on dialysis Seen and examined at the bedside. Status post dialysis earlier today, tolerated the procedure well with 2 L UF. Blood pressure is improved from admission but remained slightly above goal. She denies any chest pain, shortness of breath, abdominal pain, nausea, vomiting or diarrhea Vital Signs Temperature 98.2 F 05/27/19 12:00 Pulse Rate 83 05/27/19 12:00 Respiratory Rate 16 05/27/19 12:00 Blood Pressure 143/57 L 05/27/19 12:00 O2 Sat by Pulse Oximetry (%) 98 05/27/19 09:00 Intake & Output 05/24/19 05/25/19 05/26/19 05/27/19 23:59 23:59 23:59 23:59 Intake Total 760 800 870 Output Total 2500 Balance 760 800 -1630 Weight 52.163 kg 52.163 kg 51.8 kg 52.254 kg NAD RRR CTA soft NT/ND no LE edema CBC, BMP 05/26/19 05:24 05/26/19 05:24 Current Medications Acetaminophen (Tylenol -) 650 mg PO Q6H PRN PRN Reason: FEVER Last Admin: 05/25/19 02:00 Dose: 650 mg Alprazolam (Xanax -) 0.25 mg PO Q6H PRN PRN Reason: ANXIETY Last Admin: 05/27/19 08:36 Dose: 0.25 mg Amitriptyline HCl (Elavil -) 25 mg PO HS [facility] Last Admin: 05/26/19 21:29 Dose: 25 mg Aspirin (Asa -) 81 mg PO DAILY [facility] Last Admin: 05/27/19 10:33 Dose: 81 mg Atorvastatin Calcium (Lipitor -) 10 mg PO HS [facility] Last Admin: 05/26/19 21:28 Dose: 10 mg Calcitriol (Rocaltrol -) 0.25 mcg PO DAILY [facility] Last Admin: 05/27/19 10:33 Dose: 0.25 mcg Calcium Acetate (Phoslo -) 667 mg PO TIDCM [facility] Last Admin: 05/27/19 11:54 Dose: 667 mg Carvedilol (Coreg -) 6.25 mg PO BID [facility] Last Admin: 05/27/19 10:33 Dose: 6.25 mg Cholestyramine Resin (Questran Light Packet -) 4 gm PO BID [facility] Last Admin: 05/27/19 13:25 Dose: Not Given Sodium Chloride (Normal Saline -) 250 mls @ 3,000 mls/hr IV PRN PRN PRN Reason: Hypotension during Dialysis Stop: 05/28/19 06:20 Nicotine (Nicoderm Patch -) 21 mg TD DAILY [facility] Last Admin: 05/27/19 10:33 Dose: 21 mg Nifedipine (Procardia Xl -) 120 mg PO DAILY [facility] Last Admin: 05/27/19 10:33 Dose: 120 mg 83-year-old woman with history of end-stage kidney disease on dialysis, hypertension, CKD related anemia, hyperlipidemia, CAD who presented with uncontrolled hypertension from the dialysis unit. 1. Hypertensive urgency 2. ESRD on dialysis 3. CKD related anemia 4. Renal osteodystrophy 5. Hyperlipidemia Status post dialysis earlier today without complication. Blood pressure is improved but not yet at goal. Suggested the addition of losartan to her regimen but patient wishes not to start that medication now because her calcium channel pepito was just increased. Losartan can be added on as an outpatient if the blood pressure remains above goal at dialysis. Educated on importance of medication compliance and low-salt diet. next planned dialysis is on Monday as an outpatient. stable for discharge home. Thank you Quentin Goyal DO
--- NOTE | 2019-05-27 16:07 | ECHO ---
Name: CONG DOMINGUEZ Exam:Adult Echocardiogram Study Date: 05/27/2019 02:42 PM Age: 83 yrs Reason For Study: Abnormal ECG Height: 63 in Weight: 114 lb BSA: 1.5 m2 MMode/2D Measurements & Calculations IVSd: 0.72 cm Ao root diam: 2.5 cm LVIDd: 3.7 cm LA dimension: 3.1 cm LVIDs: 2.8 cm LVPWd: 0.72 cm EDV(Teich): 59.1 ml LVOT diam: 2.2 cm ESV(Teich): 29.3 ml Doppler Measurements & Calculations MV A max yaw: 115.0 cm/sec Ao V2 max: 176.5 cm/sec MV dec time: 0.22 sec Ao max P.5 mmHg Ao V2 mean: 137.2 cm/sec Ao mean P.8 mmHg Ao V2 VTI: 39.1 cm AI P1/2t: 429.9 msec LAMIN(V,D): 2.4 cm2 AI max yaw: 386.7 cm/sec LV V1 max P.8 mmHg AI max P.8 mmHg LV V1 max: 109.1 cm/sec AI dec slope: 263.5 cm/sec2 TR max yaw: 159.7 cm/sec Med Peak E' Yaw: 4.2 cm/sec TR max P.3 mmHg Lat Peak E' Yaw: 5.5 cm/sec Procedure A complete two-dimensional transthoracic echocardiogram was performed (2D, M-mode, Doppler and color flow Doppler). Left Ventricle The left ventricle is normal in size. Left ventricular systolic function is normal. Ejection Fraction = 55- 60%. Grade I diastolic dysfunction, (abnormal relaxation pattern). No regional wall motion abnormalit ies noted. Right Ventricle The right ventricle is normal size. The right ventricular systolic function is normal. Atria The left atrial size is normal. Right atrial size is normal. Mitral Valve There is mild mitral annular calcification. There is mild mitral valve thickening. There is mild mitr al regurgitation. Tricuspid Valve The tricuspid valve is normal in structure and function. There is mild tricuspid regurgitation. Right ventricular systolic pressure is normal. Aortic Valve There is mild aortic sclerosis.;. Mild aortic regurgitation. Pulmonic Valve The pulmonic valve is not well visualized. Great Vessels The aortic root is normal size. Pericardium/Pleura There is no pericardial effusion. Interpretation Summary The left ventricle is normal in size. Left ventricular systolic function is normal. No regional wall motion abnormalities noted. Ejection Fraction = 55-60%. Grade I diastolic dysfunction, (abnormal relaxation pattern). The right ventricular systolic function is normal. The left atrial size is normal. Right atrial size is normal. There is mild mitral annular calcification. There is mild mitral valve thickening. There is mild mitral regurgitation. There is mild tricuspid regurgitation. Right ventricular systolic pressure is normal. There is mild aortic sclerosis. Mild aortic regurgitation. There is no pericardial effusion. Joseph Abbott MD 05/27/2019 04:07 PM
--- NOTE | 2019-05-27 20:24 | PN ---
Progress Note, Physician Chief Complaint: feeling better - wants to go outside to smoke; advised to stop smoking - Current Medication List Current Medications: Active Medications Acetaminophen (Tylenol -) 650 mg PO Q6H PRN PRN Reason: FEVER Last Admin: 05/25/19 02:00 Dose: 650 mg Alprazolam (Xanax -) 0.25 mg PO Q6H PRN PRN Reason: ANXIETY Last Admin: 05/27/19 14:35 Dose: 0.25 mg Amitriptyline HCl (Elavil -) 25 mg PO HS [facility] Last Admin: 05/26/19 21:29 Dose: 25 mg Aspirin (Asa -) 81 mg PO DAILY [facility] Last Admin: 05/27/19 10:33 Dose: 81 mg Atorvastatin Calcium (Lipitor -) 10 mg PO HS [facility] Last Admin: 05/26/19 21:28 Dose: 10 mg Calcitriol (Rocaltrol -) 0.25 mcg PO DAILY [facility] Last Admin: 05/27/19 10:33 Dose: 0.25 mcg Calcium Acetate (Phoslo -) 667 mg PO TIDCM [facility] Last Admin: 05/27/19 17:21 Dose: 667 mg Carvedilol (Coreg -) 6.25 mg PO BID [facility] Last Admin: 05/27/19 10:33 Dose: 6.25 mg Cholestyramine Resin (Questran Light Packet -) 4 gm PO BID [facility] Last Admin: 05/27/19 13:25 Dose: Not Given Sodium Chloride (Normal Saline -) 250 mls @ 3,000 mls/hr IV PRN PRN PRN Reason: Hypotension during Dialysis Stop: 05/28/19 06:20 Nicotine (Nicoderm Patch -) 21 mg TD DAILY [facility] Last Admin: 05/27/19 10:33 Dose: 21 mg Nifedipine (Procardia Xl -) 120 mg PO DAILY [facility] Last Admin: 05/27/19 10:33 Dose: 120 mg Nystatin (Mycostatin Cream -) 1 applic TP BID [facility] - Objective Vital Signs: Vital Signs Temperature 98.2 F 05/27/19 18:00 Pulse Rate 84 05/27/19 18:00 Respiratory Rate 16 05/27/19 18:00 Blood Pressure 138/69 05/27/19 18:00 O2 Sat by Pulse Oximetry (%) 98 05/27/19 09:00 Constitutional: Yes: No Distress, Calm Eyes: Yes: Conjunctiva Clear HENT: Yes: Atraumatic Neck: Yes: Supple Cardiovascular: Yes: Regular Rate and Rhythm Respiratory: Yes: CTA Bilaterally Gastrointestinal: Yes: Soft. No: Tenderness Genitourinary: No: Hematuria Musculoskeletal: No: Joint Stiffness, Joint Swelling Extremities: No: Cold, Cool Edema: No Integumentary: No: Rash, Venous Stasis Changes Neurological: Yes: WNL, Alert, Oriented ...Motor Strength: WNL Psychiatric: Yes: WNL, Alert, Oriented. No: Agitated, Suicidal Ideation Labs: CBC, BMP 05/26/19 05:24 05/26/19 05:24 - ....Imaging Other: Report Reviewed Assessment/Plan 83 YOF ASHD HTN ESRD DM PVD anemia smoker adnitted with HTN urgency BP meds adjusted cardiology f/u; dyalisis per renal advised again stop smoking falls PFX d.w pt and staff
[2019-05-27] MEDS: ATORVASTATIN CA 10 MG TABLET (FP) PO SCH (22:28)
[2019-05-27] MEDS: AMITRIPTYLINE HCL 25 MG TABLET (FP) PO SCH (22:28)
[2019-05-27] MEDS: NYSTATIN 100,000 UNIT/GM TOPICAL CREAM 15 GM TUBE TP SCH (22:28)
--- NOTE | 2019-05-28 07:06 | PN ---
Progress Note (short form) - Note Progress Note: Chief Complaint: Events noted, notes reviewed, denies any chest pain or dyspnea History of Present Illness: Seen and examined on telemetry. Events noted, notes reviewed, denies any chest pain or dyspnea - Current Medication List Current Medications Acetaminophen (Tylenol -) 650 mg PO Q6H PRN PRN Reason: FEVER Last Admin: 05/25/19 02:00 Dose: 650 mg Alprazolam (Xanax -) 0.25 mg PO Q6H PRN PRN Reason: ANXIETY Last Admin: 05/27/19 22:29 Dose: 0.25 mg Amitriptyline HCl (Elavil -) 25 mg PO HS [facility] Last Admin: 05/27/19 22:28 Dose: 25 mg Aspirin (Asa -) 81 mg PO DAILY [facility] Last Admin: 05/27/19 10:33 Dose: 81 mg Atorvastatin Calcium (Lipitor -) 10 mg PO HS [facility] Last Admin: 05/27/19 22:28 Dose: 10 mg Calcitriol (Rocaltrol -) 0.25 mcg PO DAILY [facility] Last Admin: 05/27/19 10:33 Dose: 0.25 mcg Calcium Acetate (Phoslo -) 667 mg PO TIDCM [facility] Last Admin: 05/27/19 17:21 Dose: 667 mg Carvedilol (Coreg -) 6.25 mg PO BID [facility] Last Admin: 05/27/19 22:28 Dose: 6.25 mg Cholestyramine Resin (Questran Light Packet -) 4 gm PO BID [facility] Last Admin: 05/27/19 22:29 Dose: Not Given Nicotine (Nicoderm Patch -) 21 mg TD DAILY [facility] Last Admin: 05/27/19 10:33 Dose: 21 mg Nifedipine (Procardia Xl -) 120 mg PO DAILY [facility] Last Admin: 05/27/19 10:33 Dose: 120 mg Nystatin (Mycostatin Cream -) 1 applic TP BID [facility] Last Admin: 05/27/19 22:28 Dose: 1 applic Review of Systems - Review of Systems Constitutional: no symptoms reported Respiratory: denies Cough or Sputum Production Cardiovascular: as noted above Gastrointestinal: denies Nausea, Vomiting, Diarrhea, Constipation or Abdominal Pain Genitourinary: no symptoms reported Musculoskeletal: no symptoms reported Endocrine: no symptoms reported - Objective Vital Signs: Last Vital Signs Temp Pulse Resp BP Pulse Ox 98.7 F 83 16 157/84 98 05/28/19 06:00 05/28/19 06:00 05/28/19 06:00 05/28/19 06:00 05/27/19 20:50 Intake & Output 05/25/19 05/26/19 05/27/19 05/28/19 23:59 23:59 23:59 23:59 Intake Total 163 493 5832 Output Total 2500 Balance 760 800 -990 Weight 115 lb 114 lb 3.2 oz 115 lb 3.2 oz 112 lb 4 oz Neck: Supple Negative JVD No Bruit Cardiovascular: S1 S2 Regular Rate and Rhythm Respiratory: Clear to A&P Bilaterally Gastrointestinal: Soft Benign Normal Bowel Sounds Extremities: No Edema Labs: CBC, BMP 05/26/19 05:24 05/26/19 05:24 Hepatic Panel Total Bilirubin 0.2 mg/dL (0.2-1) 05/25/19 06:53 AST 12 U/L (15-37) L 05/25/19 06:53 ALT 13 U/L (13-61) 05/25/19 06:53 Alkaline Phosphatase 63 U/L (45-117) 05/25/19 06:53 Albumin 2.9 g/dl (3.4-5.0) L 05/25/19 06:53 Assessment/Plan ASSESSMENT: 1. Hypertensive urgency in a patient with known history of hypertensive cardiovascular disease, since resolved 2. End-stage renal disease on hemodialysis, dialysis noncompliance 3. 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 Diastolic LV dysfunction with clinical class 0 NYHA classification LV failure 5. DM 6. Hypercholesterolemia 7. History of PAD post right fem-pop bypass 8. COPD 9. Anemia 10. Post toe amputation for osteomyelitis PLAN: 1. Continue Corag 2. Continue Procardia XL 3. Recommend resumption of Cozaar therapy unless it is contraindicated 4. Continue ASA 5. Continue Lipitor 6. Hemodialysis as per renal service, and emphasized importance of compliance 7. Patient can be discharged home from the cardiovascular point of view and advised followup in the office with Dr. Oswaldo Sewell MD
--- NOTE | 2019-05-28 07:43 | DS ---
Physical Examination Vital Signs: Vital Signs Temperature 98.7 F 05/28/19 06:00 Pulse Rate 83 05/28/19 06:00 Respiratory Rate 16 05/28/19 06:00 Blood Pressure 157/84 05/28/19 06:00 O2 Sat by Pulse Oximetry (%) 98 05/27/19 20:50 Findings/Remarks: in bed feels better wants to go home BP fluctuating; no CP/SOB no PARR/dizziness echo WNL, cleared by cardiology to go home d/w pt Constitutional: Yes: No Distress, Calm Eyes: Yes: Conjunctiva Clear HENT: Yes: Atraumatic Neck: Yes: Supple Cardiovascular: Yes: Regular Rate and Rhythm Respiratory: Yes: CTA Bilaterally Gastrointestinal: Yes: Soft. No: Tenderness Renal/: No: CVA Tenderness - Left, CVA Tenderness - Right Musculoskeletal: No: Joint Stiffness, Joint Swelling Extremities: No: Cold, Cool Edema: No Integumentary: No: Erythema, Rash, Venous Stasis Changes Neurological: Yes: WNL, Alert, Oriented ...Motor Strength: WNL Psychiatric: Yes: WNL, Alert, Oriented. No: Agitated, Suicidal Ideation Labs: CBC, BMP 05/26/19 05:24 05/26/19 05:24 Discharge Summary Problems reviewed: Yes Reason For Visit: DIABETES MELLITUS, HYPERTENSION, END STAGE RENAL Current Active Problems Anemia (Acute) ESRD (end stage renal disease) (Acute) HTN (hypertension) (Acute) Procedures: Principal: 83 YOF Ashd HTN ESRD DM PVD anemia smoker OA DJD anxiety admitted from [facility] for HTN Urgency / emergency Other Procedures: admitted to telemetry; BP treatment meds per cardiology; dyalised per renal. Hospital Course: improved with above; DC home and f/u as advised Plan of Treatment: take BP meds as prescribed; dialyses per renal; stop tobacco; Condition: Good - Instructions Diet, Activity, Other Instructions: f/u PCP cardiology in 1-2 weeks; dyalisis per renal dr; take meds as advised; stop tobacco; RTER if worse or recurrent c/o Referrals: Angela Barahona [Primary Care Provider] - Quentin Goyal MD [Staff Physician] - Oswaldo Lam MD [Staff Physician] - Disposition: VNS/HOME HEALTH CARE - Home Medications Comprehensive Discharge Medication List: Ambulatory Orders Alprazolam [Xanax] 0.25 mg PO BID PRN 02/19/19 Amitriptyline HCl [Elavil -] 25 mg PO HS 02/19/19 Aspirin [ASA -] 81 mg PO DAILY 02/19/19 Atorvastatin Ca [Lipitor] 10 mg PO HS 02/19/19 Calcitriol [Calcitriol -] 0.25 mcg PO DAILY 02/19/19 Calcium Acetate 667 mg PO TID 02/19/19 Carvedilol [Coreg -] 6.25 mg PO BID 02/19/19 Cholestyramine [Cholestyramine Resin] 4 gm PO BID 02/19/19 Nifedipine [Procardia Xl] 90 mg PO DAILY 02/19/19 Acetaminophen [Tylenol .Regular Strength -] 650 mg PO Q6H PRN tablet 04/19/19 Ferrous Sulfate 325 mg PO BID 05/25/19 Losartan Potassium 100 mg PO DAILY 05/25/19
[2019-05-28 08:40] VITALS: TEMP 98.3
[2019-05-28] MEDS: NIFEdipine E.R 60 MG TABLET (UD) PO SCH ×2 (08:40→09:00)
[2019-05-28] MEDS: ALPRAZolam 0.25 MG TABLET PO PRN (08:40)
[2019-05-28] MEDS: CALCIUM ACETATE 667 MG CAPSULE (FP) PO SCH (08:40)
[2019-05-28] MEDS: CARVEDILOL 6.25 MG TABLET (FP) PO SCH ×2 (08:41→08:59)
[2019-05-28] MEDS: CHOLESTYRAMINE/ASPARTAME 4 GM PACKET PO SCH ×2 (08:41→09:00)
[2019-05-28] MEDS: NICOTINE 21 MG/24 HOURS TOPICAL PATCH TD SCH (09:08)
[2019-05-28] MEDS: CALCITRIOL 0.25 MCG CAPSULE (FP) PO SCH (09:12)
[2019-05-28] MEDS: NYSTATIN 100,000 UNIT/GM TOPICAL CREAM 15 GM TUBE TP SCH (09:12)
[2019-05-28] MEDS: ASPIRIN 81 MG CHEWABLE TABLETS PO SCH (09:12)
[2019-05-28] MEDS ORDERED: CARVEDILOL 3.125 MG TABLET (FP) PO SCH (10:15)
[2019-05-28 10:37] VITALS: BP 122/69; PULSE 76
== END 2019-05-28 12:05 | disposition home health service (06) ==
LOC: JER 20:01 → JERBED 23:37 → INTOOBSV 23:37 → UNDOADMOB 23:37 → JERBED 05-25 01:22 → J4S 05-25 01:22 → JERBED 05-27 15:35
PROVIDERS: ADMIT Specialist; ATTEND Specialist
PROC: 3E033GC Introduction of Other Therapeutic Substance into Peripheral Vein, Percutaneous Approach (ICD-10-PCS; principal; 2019-05-27)
DX: I16.0 Hypertensive urgency (principal); E11.22 Type 2 diabetes mellitus with diabetic chronic kidney disease; I12.0 Hypertensive chronic kidney disease with stage 5 chronic kidney disease or end stage renal disease; N18.6 End stage renal disease; F17.210 Nicotine dependence, cigarettes, uncomplicated; N17.9 Acute kidney failure, unspecified; Z99.2 Dependence on renal dialysis; Z79.4 Long term (current) use of insulin; D64.9 Anemia, unspecified; I25.10 Atherosclerotic heart disease of native coronary artery without angina pectoris; J44.9 Chronic obstructive pulmonary disease, unspecified; E78.5 Hyperlipidemia, unspecified; R01.1 Cardiac murmur, unspecified; I73.9 Peripheral vascular disease, unspecified; R74.8 Abnormal levels of other serum enzymes; Z89.421 Acquired absence of other right toe(s); F41.9 Anxiety disorder, unspecified; Z86.14 Personal history of Methicillin resistant Staphylococcus aureus infection; K59.00 Constipation, unspecified; E11.69 Type 2 diabetes mellitus with other specified complication; Z91.048 Other nonmedicinal substance allergy status; Z88.0 Allergy status to penicillin; Z88.1 Allergy status to other antibiotic agents; Z91.013 Allergy to seafood; Z79.84 Long term (current) use of oral hypoglycemic drugs; Z95.820 Peripheral vascular angioplasty status with implants and grafts
CPT/HCPCS: 36415; 71045-TC-FY; 80048; 80053; 82550; 83735; 84100; 84484; 85025; 85027; 93005; 93010; 93306-TC; 96374; 96375; 99284-25; G0378; J1644

== ENCOUNTER 2019-06-06 08:18 | Observation (INO) | payer OTHER ==
[2019-06-06 08:32] VITALS: BMI 20.3
--- NOTE | 2019-06-06 09:06 | PDOC ---
History of Present Illness - General Chief Complaint: Cold Symptoms Stated Complaint: FLU Symptoms Time Seen by Provider: 06/06/19 08:34 - History of Present Illness Initial Comments: 06/06/19 09:04 83 yo F PMH HTN, ESRD on HD (MWF), DM (no longer on any medication), PVD, hx anemia requiring transfusions in the past, current smoker (1.5 ppd), OA, anxiety , p/w generalized weakness. States that she missed dialysis yesterday because she was feeling weak, called dialysis center, told to go get dialysis today, however weakness persisted so she came to the ED. Reports that the last time she felt this way, her potassium levels were high. Further complains of cough productive of phlegm this morning. Specifically denies fevers/chills, CP, SOB, constipation/diarrhea, N/V, urinary symptoms (patient still makes urine). Past History - Past Medical History Allergies/Adverse Reactions: Allergies Allergy/AdvReac Type Severity Reaction Status Date / Time iodine Allergy Rash Verified 06/06/19 08:33 penicillin V Allergy Verified 06/06/19 08:33 shellfish derived Allergy Rash Verified 06/06/19 08:33 vancomycin Allergy Verified 06/06/19 08:33 azithromycin AdvReac Verified 06/06/19 08:33 Home Medications: Ambulatory Orders Alprazolam [Xanax] 0.25 mg PO BID PRN 02/19/19 Amitriptyline HCl [Elavil -] 25 mg PO HS 02/19/19 Aspirin [ASA -] 81 mg PO DAILY 02/19/19 Atorvastatin Ca [Lipitor] 10 mg PO HS 02/19/19 Calcitriol [Calcitriol -] 0.25 mcg PO DAILY 02/19/19 Calcium Acetate 667 mg PO TID 02/19/19 Carvedilol [Coreg -] 6.25 mg PO BID 02/19/19 Cholestyramine [Cholestyramine Resin] 4 gm PO BID 02/19/19 Acetaminophen [Tylenol .Regular Strength -] 650 mg PO Q6H PRN tablet 04/19/19 Ferrous Sulfate 325 mg PO BID 05/25/19 Losartan Potassium 100 mg PO DAILY 05/25/19 Losartan Potassium [Cozaar -] 50 mg PO DAILY #90 tablet 05/28/19 Nicotine Patch [Nicoderm Patch -] 21 mg TD DAILY patch 05/28/19 Nifedipine ER [Procardia XL -] 120 mg PO DAILY #180 tab.er.24 05/28/19 Nystatin Cream [Mycostatin Cream -] 1 applic TP BID applic 05/28/19 Anemia: Yes Asthma: Yes Cancer: No Cardiac Disorders: Yes (PAD,CAD) CVA: No COPD: No CHF: No DVT: No Dementia: No Diabetes: Yes Dialysis: Yes (M,W,F R SUBCLAVIN PORT) GI Disorders: Yes (chronic diarrhea) Disorders: No HTN: Yes Hypercholesterolemia: Yes Liver Disease: No Seizures: No Thyroid Disease: No - Surgical History Abdominal Surgery: No Appendectomy: No Cardiac Surgery: Yes (FEMORAL BYPASS) Cholecystectomy: Yes Lung Surgery: No Neurologic Surgery: No Orthopedic Surgery: Yes (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) - Immunization History Td Vaccination: Yes TDAP Vaccination: Yes Immunization Up to Date: Yes - Psycho Social/Smoking Cessation Hx Smoking Status: Yes Smoking History: Current every day smoker Have you smoked in the past 12 months: Yes Number of Cigarettes Smoked Daily: 12 If you are a former smoker, when did you quit?: 08/10/2012 Cigars Per Day: 30 Information on smoking cessation initiated: Yes 'Breaking Loose' booklet given: 08/28/18 Hx Alcohol Use: No Drug/Substance Use Hx: No Substance Use Type: None Hx Substance Use Treatment: No Review of Systems - Review of Systems Constitutional: Yes: Weakness. No: Chills, Diaphoresis, Fever HEENTM: No: Recent change in vision, Throat Pain, Mouth Swelling Respiratory: Yes: Cough. No: Orthopnea, Shortness of Breath Cardiac (ROS): No: Chest Pain, Edema, Irregular Heart Rate, Lightheadedness, Palpitations, Syncope, Chest Tightness ABD/GI: No: Constipated, Diarrhea, Nausea, Vomiting : No: Burning, Dysuria, Discharge, Frequency, Flank Pain, Hematuria, Incontinence Musculoskeletal: No: Back Pain, Neck Pain Neurological: No: Headache, Numbness, Tingling, Weakness, Dizziness *Physical Exam - Vital Signs Last Vital Signs Temp Pulse Resp BP Pulse Ox 98.0 F 79 17 163/74 97 06/06/19 08:30 06/06/19 08:30 06/06/19 08:30 06/06/19 08:30 06/06/19 08:33 - Physical Exam Comments: 06/06/19 09:31 Gen: well-developed, well-nourished, NAD Neuro: AAOX4, CN II-XII intact, FTN intact, EOMI, PERRLA, 5/5 strength, SILT HEENT: atraumatic, normocephalic, dry mucous membranes Neck: trachea midline, supple CV: regular rate, regular rhythm, no murmurs, rubs, or gallops Pulm: CTA b/l, no wheezing Abd: soft, non-distended, non-tender MSK: full ROM, intact pulses Extr: no edema, no deformities Skin: warm, dry ED Treatment Course - LABORATORY CBC & Chemistry Diagram: 06/06/19 09:25 06/06/19 09:25 - RADIOLOGY Radiology Studies Ordered: Category Date Time Status CXRPORT [CHEST X-RAY PORTABLE*] [RAD] Stat Radiology 06/06/19 08:51 Ordered Medical Decision Making - Medical Decision Making 06/06/19 09:03 Concern for electrolyte abnormalities vs anemia v PNA. - CXR - EKG - CBC - CMP - likely send to dialysis 06/06/19 09:27 CXR without acute pathology, similar to prior CXR 2 weeks ago. 06/06/19 09:46 EKG 76 bpm, normal sinus, no ST segment elevations or peaked T waves 06/06/19 10:04 WBC 10.3 06/06/19 10:25 K 5.6, Cr 7.1. 06/06/19 11:[address] Goyal, will get patient admitted under obs for dialysis. Will call PCP Dr. Angela Barahona. 06/06/19 11:[address] Barahona, asked that we admit under the hospitalist. Discharge - Discharge Information Problems reviewed: Yes Clinical Impression/Diagnosis: ESRD (end stage renal disease) - Follow up/Referral - Patient Discharge Instructions - Post Discharge Activity
[2019-06-06 09:41] LABS: BASO % 0.8 % (0-2.0); EOS % 3.4 % (0-4.5); HEMATOCRIT 35.1 % (32.4-45.2); HEMOGLOBIN 11.4 GM/dL (10.7-15.3); LYMPH % 13.3 % (8-40); MCH 31.4 pg (25.7-33.7); MCHC 32.6 g/dl (32.0-36.0); MEAN CELL VOLUME 96.2 fl (80-96); MEAN PLT VOLUME 7.9 fl (7.5-11.1); MONO % 7.4 % (3.8-10.2); NEUT % 75.1 % (42.8-82.8); PLATELET COUNT 233 K/MM3 (134-434); RBC 3.65 M/mm3 (3.60-5.2); RDW 16.7 % (11.6-15.6); WHITE BLOOD COUNT 10.3 K/mm3 (4.0-10.0)
[2019-06-06] MEDS ORDERED: guaiFENesin 200 MG/10 ML 10 ML UNIT-DOSE CUPS PO ONE ×2 (10:05→18:53)
[2019-06-06 10:17] LABS: ALBUMIN 3.3 g/dl (3.4-5.0); BILIRUBIN,TOTAL 0.2 mg/dL (0.2-1); BLOOD UREA NITROGEN 69.9 mg/dL (7-18); CALCIUM 8.2 mg/dL (8.5-10.1); CREATININE 7.1 mg/dL (0.55-1.3); POTASSIUM 5.6 mmol/L (3.5-5.1); TOT PROT 7.1 g/dl (6.4-8.2)
[2019-06-06] MEDS ORDERED: guaiFENesin 200 MG/10 ML 10 ML UNIT-DOSE CUPS ONE (10:21)
--- NOTE | 2019-06-06 11:14 | PDOC ---
Attending Attestation - Resident Resident Name: Su Dominguez - ED Attending Attestation I have performed the following: I have examined & evaluated the patient, The case was reviewed & discussed with the resident, I agree w/resident's findings & plan - HPI HPI: 06/06/19 11:09 83-year-old female with history of hypertension, diabetes, end-stage renal disease on dialysis via right chest catheter presents now with 2 days of progressive cough with generalized weakness, unable to attend her dialysis appointment yesterday and the rescheduled appointment for today. Describes ongoing dry cough occasionally with white sputum, no chest pain or dyspnea, no fevers or chills, no body aches or other URI symptoms. No chest pain or palpitations, no vomiting or diarrhea, tolerating normal diet. Active long-term smoker without diagnosis of COPD and without history of prior pneumonia. recent admission for elevated BP at dialysis, discharged 05/28. - Physicial Exam PE: 06/06/19 11:12 Afebrile, O2 sat within normal limits, respiratory rate is normal Alert lying in stretcher, speaking full sentences, occasional dry cough Heart is regular, lungs are clear without audible wheezing or focally decreased breath sounds or prolonged expiration Abdomen benign No edema or calf tenderness - Medical Decision Making 06/06/19 11:13 83-year-old female with history of hypertension/diabetes/end-stage renal disease on dialysis, long-term smoker without underlying lung disease diagnosis presents now with cough for 2 days and generalized weakness, could be bronchitis /viral URI versus pneumonia, hemodynamically stable without acute respiratory distress or signs of respiratory failure. Labs EKG, chest x-ray Trial of nebulizer Likely admission given severe weakness, will also need dialysis Heart Score/ECG Review #1 ECG reviewed & interpreted by me at: 09:13 General ECG Interpretation: Sinus Rhythm, Normal Rate (76), Normal Intervals ( qtc 445), No acute ischemic changes Compared to previous ECG there are: No significant change (c/w 05/24/19)
[2019-06-06] MEDS ORDERED: SODIUM CHLORIDE 250 ML IV PRN ×2 (11:30→16:25)
--- NOTE | 2019-06-06 13:20 | EKG ---
Test Reason : Blood Pressure : / mmHG Vent. Rate : 076 BPM Atrial Rate : 076 BPM P-R Int : 178 ms QRS Dur : 092 ms QT Int : 396 ms P-R-T Axes : 049 047 055 degrees QTc Int : 445 ms NORMAL SINUS RHYTHM NORMAL ECG WHEN COMPARED WITH ECG OF 24-MAY-2019 22:50, CRITERIA FOR SEPTAL INFARCT ARE NO LONGER PRESENT Confirmed by LORETA RENNER MD ([id number]) on 06/06/2019 1:20:40 PM Referred By: Confirmed By:LORETA RENNER MD
--- NOTE | 2019-06-06 13:23 | HP ---
CHIEF COMPLAINT: Missed HD PCP: Dr. Saavedra HISTORY OF PRESENT ILLNESS: Patient seen in HD. She is a 83 y/o female with a pMH of ESRD on HD as documented pt of Dr. saavedra who presents with missed HD. No EKG changes 2/2 elyte abnormalities and stat HD arranged through ER. She has ongoing social issues with depression and social isolation and has saddness, anhedonia, depressive symptoms, and sleep symptoms noted due to this. She is not currently SOB but did have a cough with negative workup in the ER. She deferred CT scan to check for occult pneumonia which was ordered due to her repeatedly voicing concerns. She has a negative infective workup so far and is pending post HD labs. No SI/HI noted. Denies chest pain. No typical or atypical anginal symptoms. No worsening exercise tolerance. PAST MEDICAL HISTORY: ESRD on HD, depression/chronic pain on amytriptaline, multiple allergies PAST SURGICAL HISTORY: HD access insertion Social History: No IVDU, no tobacco or ETOH abuse. Allergies iodine Allergy (Verified 06/06/19 08:33) Rash penicillin V Allergy (Verified 06/06/19 08:33) shellfish derived Allergy (Verified 06/06/19 08:33) Rash vancomycin Allergy (Verified 06/06/19 08:33) azithromycin Adverse Reaction (Verified 06/06/19 08:33) diarrhea HOME MEDICATIONS: Home Medications Medication Instructions Recorded Alprazolam [Xanax] 0.25 mg PO BID PRN 02/19/19 Amitriptyline HCl [Elavil -] 25 mg PO HS 02/19/19 Aspirin [ASA -] 81 mg PO DAILY 02/19/19 Atorvastatin Ca [Lipitor] 10 mg PO HS 02/19/19 Calcitriol [Calcitriol -] 0.25 mcg PO DAILY 02/19/19 Calcium Acetate 667 mg PO TID 02/19/19 Carvedilol [Coreg -] 6.25 mg PO BID 02/19/19 Cholestyramine [Cholestyramine 4 gm PO BID 02/19/19 Resin] Acetaminophen [Tylenol .Regular 650 mg PO Q6H PRN tablet 04/19/19 Strength -] Ferrous Sulfate 325 mg PO BID 05/25/19 Losartan Potassium 100 mg PO DAILY 05/25/19 Losartan Potassium [Cozaar -] 50 mg PO DAILY #90 tablet 05/28/19 Nicotine Patch [Nicoderm Patch -] 21 mg TD DAILY patch 05/28/19 Nifedipine ER [Procardia XL -] 120 mg PO DAILY #180 tab.er.24 05/28/19 Nystatin Cream [Mycostatin Cream -] 1 applic TP BID applic 05/28/19 REVIEW OF SYSTEMS 10 sys ROS negative except for HPI PHYSICAL EXAMINATION Vital Signs - 24 hr 06/06/19 06/06/19 06/06/19 08:30 08:33 12:13 Temperature 98.0 F Pulse Rate 79 Respiratory 17 Rate Blood Pressure 163/74 O2 Sat by Pulse 97 97 98 Oximetry (%) GENERAL: Awake, alert, and fully oriented, in no acute distress. HEAD: Normal with no signs of trauma. EYES: Pupils equal, round and reactive to light, extraocular movements intact, sclera anicteric, conjunctiva clear. No lid lag. EARS, NOSE, THROAT: Ears normal, nares patent, oropharynx clear without exudates. Moist mucous membranes. NECK: Normal range of motion, supple without lymphadenopathy, JVD, or masses. LUNGS: Breath sounds equal, clear to auscultation bilaterally. No wheezes, and no crackles. No accessory muscle use. HEART: Regular rate and rhythm, normal S1 and S2 without murmur, rub or gallop. ABDOMEN: Soft, nontender, not distended, normoactive bowel sounds, no guarding, no rebound, no masses. No hepatomegaly or splenomegaly. MUSCULOSKELETAL: Normal range of motion at all joints. No bony deformities or tenderness. No CVA tenderness. NEUROLOGICAL: Cranial nerves II-XII intact. Normal speech. Normal gait. PSYCHIATRIC: Cooperative. Good eye contact. Appropriate mood and affect. SKIN: Warm, dry, normal turgor, no rashes or lesions noted, normal capillary refill. Laboratory Results - last 24 hr 06/06/19 06/06/19 06/06/19 09:25 09:25 10:58 WBC 10.3 H RBC 3.65 Hgb 11.4 Hct 35.1 MCV 96.2 H MCH 31.4 MCHC 32.6 RDW 16.7 H Plt Count 233 MPV 7.9 Absolute Neuts (auto) 7.7 Neutrophils % 75.1 D Lymphocytes % 13.3 D Monocytes % 7.4 Eosinophils % 3.4 Basophils % 0.8 Nucleated RBC % 0 Sodium 136 Potassium 5.6 H Chloride 106 Carbon Dioxide 18 L Anion Gap 12 BUN 69.9 H Creatinine 7.1 H Est GFR (CKD-EPI)AfAm 5.72 Est GFR (CKD-EPI)NonAf 4.94 Random Glucose 145 H Calcium 8.2 L Total Bilirubin 0.2 AST 12 L ALT 15 Alkaline Phosphatase 77 Total Protein 7.1 Albumin 3.3 L Influenza A (Rapid) Negative Influenza B (Rapid) Negative EKG reviewed; no elyte associated changes CXR reviewed; no obvious acute disease CT deferred per patient Pending post HD labs Pending SW consult Discussed at length with Dr. Goyal ASSESSMENT/PLAN: Seen and examined; patient presents for ESRD on HD with missed HD. She is negative flu and has a cough. No sepsis, no obvious pneumonia, doesn't qualify for abx at this juncture. No desats noted. -ESRD on HD -Cough likely 2/2 missed hd with fluids, no respiratory failure noted -Depression -Social Admit -Chronic metabolic acidosis -HTN -Chronic anemia -Mild acute bronchitis Full Code Visit type - Emergency Visit Emergency Visit: Yes ED Registration Date: 06/06/19 Care time: The patient presented to the Emergency Department on the above date and was hospitalized for further evaluation of their emergent condition. - New Patient This patient is new to me today: Yes Date on this admission: 06/06/19 - Critical Care Critical Care patient: No
[2019-06-06] MEDS ORDERED: HEPARIN NA (PORCINE) 5,000 UNITS/ML 1ML VIAL IVPUSH ONE (13:45)
[2019-06-06] MEDS: HEPARIN NA (PORCINE) 5,000 UNITS/ML 1ML VIAL IVPUSH SCH ×3 (13:47→15:45)
[2019-06-06 15:43] LABS: PHOSPHOROUS 8.2 mg/dL (2.5-4.9)
--- NOTE | 2019-06-06 16:25 | CONSULT ---
Consult - text type - Consultation Consultation Note: Renal consult for ESRD on HD This is a 83 year old woman with history of ESRD on HD, DM type 2, hypertension , CAD who presented with generalized weakness and cough with K of 5.7 after a missed dialysis. Last dialysis was Monday. Denies any shortness of breath. Feels very depressed and says she just wants to . Does not want to stop dialysis as she compares that to committing suicide. Denies any fever, chills, abd pain, N/V/D. PMhx:as above Family Hx: NC Social Hx: No T/A/D ROS: As per HPI, all other pertinent ros negative Home Medications Medication Instructions Recorded Alprazolam [Xanax] 0.25 mg PO BID PRN 02/19/19 Amitriptyline HCl [Elavil -] 25 mg PO HS 02/19/19 Aspirin [ASA -] 81 mg PO DAILY 02/19/19 Atorvastatin Ca [Lipitor] 10 mg PO HS 02/19/19 Calcitriol [Calcitriol -] 0.25 mcg PO DAILY 02/19/19 Calcium Acetate 667 mg PO TID 02/19/19 Carvedilol [Coreg -] 6.25 mg PO BID 02/19/19 Cholestyramine [Cholestyramine 4 gm PO BID 02/19/19 Resin] Acetaminophen [Tylenol .Regular 650 mg PO Q6H PRN tablet 04/19/19 Strength -] Ferrous Sulfate 325 mg PO BID 05/25/19 Losartan Potassium 100 mg PO DAILY 05/25/19 Losartan Potassium [Cozaar -] 50 mg PO DAILY #90 tablet 05/28/19 Nicotine Patch [Nicoderm Patch -] 21 mg TD DAILY patch 05/28/19 Nifedipine ER [Procardia XL -] 120 mg PO DAILY #180 tab.er.24 05/28/19 Nystatin Cream [Mycostatin Cream -] 1 applic TP BID applic 05/28/19 Vital Signs Temperature 98 F 06/06/19 12:30 Pulse Rate 96 H 06/06/19 14:20 Respiratory Rate 18 06/06/19 14:20 Blood Pressure 134/61 06/06/19 14:20 O2 Sat by Pulse Oximetry (%) 98 06/06/19 12:13 Intake & Output 06/03/19 06/04/19 06/05/19 06/06/19 23:59 23:59 23:59 23:59 Weight 52.163 kg NAD awake and alert RRR CTA soft NT/ND no LE edema CBC, BMP 06/06/19 09:25 06/06/19 09:25 Current Medications Sodium Chloride (Normal Saline -) 250 mls @ 3,000 mls/hr IV PRN PRN PRN Reason: Hypotension during Dialysis Stop: 06/07/19 11:30 83 year old woman with history of ESRD on HD, DM type 2, hypertension, CAD who presented with generalized weakness and cough with K of 5.7 after a missed dialysis. 1. ESRD on HD 2. Hyperkalemia from missed dialysis 3. DM type 2 4. Hypertension 5. Hyperphosphatemia 6. Depression tolerating dialysis as inpatient today, will plan abridged dialysis tomorrow if pt remains inpatient. will request social work consult for possible assistance at home consider psych consult for depression start renvela for hyperphosphatemia Renal diet, 1.2L fluid restriction Quentin Goyal DO
[2019-06-06] MEDS ORDERED: ACETAMINOPHEN 325 MG TABLET (FP) PO PRN (17:51)
[2019-06-06] MEDS ORDERED: ALPRAZolam 0.25 MG TABLET PO PRN ×2 (17:51→22:09)
[2019-06-06] MEDS: ASPIRIN 81 MG CHEWABLE TABLETS PO SCH (18:08)
[2019-06-06 19:44] LABS: BLOOD UREA NITROGEN 18.8 mg/dL (7-18); CALCIUM 9.2 mg/dL (8.5-10.1); CREATININE 3.2 mg/dL (0.55-1.3)
[2019-06-06] MEDS ORDERED: AMITRIPTYLINE HCL 25 MG TABLET (FP) PO SCH (22:00)
[2019-06-06] MEDS ORDERED: ATORVASTATIN CA 10 MG TABLET (FP) PO SCH (22:00)
[2019-06-06] MEDS: FERROUS SO4 325 MG TABLET (FP) PO SCH (22:34)
[2019-06-06] MEDS: CHOLESTYRAMINE/ASPARTAME 4 GM PACKET PO SCH (22:34)
[2019-06-06] MEDS: CARVEDILOL 6.25 MG TABLET (FP) PO SCH (22:34)
[2019-06-07 08:03] LABS: HEMATOCRIT 34.8 % (32.4-45.2); HEMOGLOBIN 11.6 GM/dL (10.7-15.3); MCH 31.3 pg (25.7-33.7); MCHC 33.5 g/dl (32.0-36.0); MEAN CELL VOLUME 93.5 fl (80-96); MEAN PLT VOLUME 8.1 fl (7.5-11.1); PLATELET COUNT 237 K/MM3 (134-434); RBC 3.72 M/mm3 (3.60-5.2); RDW 16.3 % (11.6-15.6); WHITE BLOOD COUNT 9.6 K/mm3 (4.0-10.0)
[2019-06-07 08:20] LABS: INR 1.04 (0.83-1.09); PROTHROMBIN TIME (PATIENT) 12.3 SEC (9.7-13.0)
[2019-06-07 08:34] LABS: BLOOD UREA NITROGEN 28.5 mg/dL (7-18); CALCIUM 8.2 mg/dL (8.5-10.1); CREATININE 4.3 mg/dL (0.55-1.3); MAGNESIUM 1.9 mg/dL (1.8-2.4); POTASSIUM 4.6 mmol/L (3.5-5.1)
--- NOTE | 2019-06-07 09:51 | DS ---
Physical Exam: SUBJECTIVE: Pt with improved weakness. Pt wishes to have breakfast. Denies any shortness of breath, palpitations, chest pain, abdominal pain, headaches, blurriness, lightheadedness. OBJECTIVE: Vital Signs Period Temp Pulse Resp BP Sys/Banuelos Pulse Ox Last 24 Hr 97.6 F-99.1 F 74-100 18-24 90-179/61-96 94-98 PHYSICAL EXAM GENERAL: The patient is awake, alert, and fully oriented, in no acute distress. HEENT: NC/AT, MARIAN, MMM NECK: No JVD LUNGS: CTA bilaterally, no wheezes, no crackles, no accessory muscle use. HEART: RRR, S1, S2 without murmur ABDOMEN: Soft, NT/ND, normoactive bowel sounds, no guarding, no rebound EXTREMITIES: 2+ pulses, warm, well-perfused, no edema. NEUROLOGICAL: Nonfocal neuro exam. Normal speech, gait not observed. PSYCH: Normal mood, normal affect. SKIN: Warm, dry, no rashes or lesions noted. LABS Laboratory Results - last 24 hr 06/06/19 06/06/19 06/06/19 09:25 09:25 10:58 WBC 10.3 H RBC 3.65 Hgb 11.4 Hct 35.1 MCV 96.2 H MCH 31.4 MCHC 32.6 RDW 16.7 H Plt Count 233 MPV 7.9 Absolute Neuts (auto) 7.7 Neutrophils % 75.1 D Lymphocytes % 13.3 D Monocytes % 7.4 Eosinophils % 3.4 Basophils % 0.8 Nucleated RBC % 0 PT with INR INR Sodium 136 Potassium 5.6 H Chloride 106 Carbon Dioxide 18 L Anion Gap 12 BUN 69.9 H Creatinine 7.1 H Est GFR (CKD-EPI)AfAm 5.72 Est GFR (CKD-EPI)NonAf 4.94 Random Glucose 145 H Calcium 8.2 L Phosphorus 8.2 H Magnesium Total Bilirubin 0.2 AST 12 L ALT 15 Alkaline Phosphatase 77 Total Protein 7.1 Albumin 3.3 L Influenza A (Rapid) Negative Influenza B (Rapid) Negative 06/06/19 06/07/19 06/07/19 18:46 06:00 06:00 WBC 9.6 RBC 3.72 Hgb 11.6 Hct 34.8 MCV 93.5 MCH 31.3 MCHC 33.5 RDW 16.3 H Plt Count 237 MPV 8.1 Absolute Neuts (auto) Neutrophils % Lymphocytes % Monocytes % Eosinophils % Basophils % Nucleated RBC % PT with INR 12.30 INR 1.04 Sodium 141 Potassium 4.0 Chloride 101 Carbon Dioxide 31 Anion Gap 9 BUN 18.8 H Creatinine 3.2 H Est GFR (CKD-EPI)AfAm 14.99 Est GFR (CKD-EPI)NonAf 12.94 Random Glucose 73 L Calcium 9.2 Phosphorus Magnesium Total Bilirubin AST ALT Alkaline Phosphatase Total Protein Albumin Influenza A (Rapid) Influenza B (Rapid) 06/07/19 06:00 WBC RBC Hgb Hct MCV MCH MCHC RDW Plt Count MPV Absolute Neuts (auto) Neutrophils % Lymphocytes % Monocytes % Eosinophils % Basophils % Nucleated RBC % PT with INR INR Sodium 138 Potassium 4.6 Chloride 103 Carbon Dioxide 25 Anion Gap 10 BUN 28.5 H Creatinine 4.3 H Est GFR (CKD-EPI)AfAm 10.49 Est GFR (CKD-EPI)NonAf 9.05 Random Glucose 87 Calcium 8.2 L Phosphorus Magnesium 1.9 Total Bilirubin AST ALT Alkaline Phosphatase Total Protein Albumin Influenza A (Rapid) Influenza B (Rapid) Active Medications Acetaminophen (Tylenol -) 650 mg PO Q6H PRN PRN Reason: FEVER Alprazolam (Xanax -) 0.25 mg PO Q12H PRN PRN Reason: ANXIETY Last Admin: 06/07/19 06:00 Dose: 0.25 mg Amitriptyline HCl (Elavil -) 50 mg PO HS [facility] Aspirin (Asa -) 81 mg PO DAILY [facility] Last Admin: 06/07/19 14:41 Dose: 81 mg Atorvastatin Calcium (Lipitor -) 10 mg PO HS [facility] Last Admin: 06/06/19 22:34 Dose: 10 mg Calcitriol (Rocaltrol -) 0.25 mcg PO DAILY [facility] Last Admin: 06/07/19 14:45 Dose: 0.25 mcg Calcium Acetate (Phoslo -) 667 mg PO TIDCM [facility] Last Admin: 06/07/19 14:45 Dose: Not Given Carvedilol (Coreg -) 6.25 mg PO BID [facility] Last Admin: 06/07/19 14:41 Dose: 6.25 mg Cholestyramine Resin (Questran Light Packet -) 4 gm PO BID [facility] Last Admin: 06/07/19 14:44 Dose: Not Given Ferrous Sulfate (Feosol -) 325 mg PO BID [facility] Last Admin: 06/07/19 14:42 Dose: 325 mg Sodium Chloride (Normal Saline -) 250 mls @ 3,000 mls/hr IV PRN PRN PRN Reason: Hypotension during Dialysis Stop: 06/07/19 16:25 Losartan Potassium (Cozaar -) 50 mg PO DAILY [facility] Last Admin: 06/07/19 14:42 Dose: 50 mg Nicotine (Nicoderm Patch -) 21 mg TD DAILY [facility] Last Admin: 06/07/19 14:43 Dose: Not Given Nifedipine (Procardia Xl -) 120 mg PO DAILY [facility] Last Admin: 06/07/19 14:43 Dose: 120 mg Sevelamer Carbonate (Renvela -) 1,600 mg PO TIDCM [facility] Last Admin: 06/07/19 14:40 Dose: Not Given IMAGING: CXR: Impression: No acute infiltrate or edema in the lungs, no suspicious findings in the lungs HOSPITAL COURSE: Date of Admission:06/06/19 Date of Discharge: 06/07/19 Pt was admitted on 06/06/19 due to missing her dialysis and subsequently having hyperkalemia to 5.7. Pt was also found to have physical deconditioning and weakness. Pt was seen by Nephrology and has her dialysis continued both on 06/06 (with resolution of Hyperkalemia to 4.1) and a bridging dialysis session on 06/07/19. Pt's weakness has improved after her dialysis session, however it is recommended she continues with home services which has been set up by our case management. Pt is being discharged in stable condition with resolution of her weakness and hyperkalemia. She is to resume her regular dialysis sessions and to follow-up with her primary care provider. 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 Final Diagnoses: ESRD on HD Hyperkalemia Physical deconditioning Depression Type 2 DM Coronary artery disease COPD Tobacco use Minutes to complete discharge: 35 <Beau Juan - Last Filed: 06/07/19 15:59> Physical Exam: SUBJECTIVE: Patient seen and examined OBJECTIVE: Vital Signs Period Temp Pulse Resp BP Sys/Banuelos Pulse Ox Last 24 Hr 98.9 F 90-96 18-20 141-187/69-101 PHYSICAL EXAM GENERAL: The patient is awake, alert, and fully oriented, in no acute distress. HEAD: Normal with no signs of trauma. EYES: PERRL, extraocular movements intact, sclera anicteric, conjunctiva clear. ENT: Ears normal, nares patent, oropharynx clear without exudates, moist mucous membranes. NECK: Trachea midline, full range of motion, supple. LUNGS: Breath sounds equal, clear to auscultation bilaterally, no wheezes, no crackles, no accessory muscle use. HEART: Regular rate and rhythm, S1, S2 without murmur, rub or gallop. ABDOMEN: Soft, nontender, nondistended, normoactive bowel sounds, no guarding, no rebound, no hepatosplenomegaly, no masses. EXTREMITIES: 2+ pulses, warm, well-perfused, no edema. NEUROLOGICAL: Cranial nerves II through XII grossly intact. Normal speech, gait not observed. PSYCH: Normal mood, normal affect. SKIN: Warm, dry, normal turgor, no rashes or lesions noted. LABS Laboratory Results - last 24 hr 06/07/19 06/07/19 14:39 17:02 POC Glucometer 81 86 HOSPITAL COURSE: Date of Admission:06/06/19 Date of Discharge: 06/07/19 Agree with resident DCS as documented Patient has a clear need for [facility]; recommend them on DC. She has missed HD in the past due to underlying psych issues and needs PCP followup with rony etc. Agree with discharge instructions Discussed with Dr. Goyal and Dr. Juan <Quinn Jurado - Last Filed: 06/08/19 12:03> Discharge Summary Problems reviewed: Yes Reason For Visit: ESRD ON DIALYSIS Current Active Problems ESRD (end stage renal disease) (Acute) - Home Medications Comprehensive Discharge Medication List: Ambulatory Orders Alprazolam [Xanax] 0.25 mg PO BID PRN 02/19/19 Aspirin [ASA -] 81 mg PO DAILY 02/19/19 Atorvastatin Ca [Lipitor] 10 mg PO HS 02/19/19 Calcitriol [Calcitriol -] 0.25 mcg PO DAILY 02/19/19 Calcium Acetate 667 mg PO TID 02/19/19 Carvedilol [Coreg -] 6.25 mg PO BID 02/19/19 Acetaminophen [Tylenol .Regular Strength -] 650 mg PO Q6H PRN tablet 04/19/19 Ferrous Sulfate 325 mg PO BID 05/25/19 Losartan Potassium [Cozaar -] 50 mg PO DAILY #90 tablet 05/28/19 Nifedipine ER [Procardia XL -] 120 mg PO DAILY #180 tab.er.24 05/28/19 Amitriptyline HCl [Elavil -] 50 mg PO HS #30 tablet 06/07/19 Sevelamer Carbonate [Renvela -] 1,600 mg PO TIDCM tab 06/07/19 <Beau Juan - Last Filed: 06/07/19 15:59> Problems reviewed: Yes - Home Medications Comprehensive Discharge Medication List: Ambulatory Orders RX: Alprazolam [Xanax] 0.25 mg PO BID PRN 02/19/19 RX: Aspirin [ASA -] 81 mg PO DAILY 02/19/19 RX: Atorvastatin Ca [Lipitor] 10 mg PO HS 02/19/19 RX: Calcitriol [Calcitriol -] 0.25 mcg PO DAILY 02/19/19 RX: Calcium Acetate 667 mg PO TID 02/19/19 RX: Carvedilol [Coreg -] 6.25 mg PO BID 02/19/19 RX: Acetaminophen [Tylenol .Regular Strength -] 650 mg PO Q6H PRN tablet RX: Ferrous Sulfate 325 mg PO BID 05/25/19 RX: Losartan Potassium [Cozaar -] 50 mg PO DAILY #90 tablet 05/28/19 RX: Nifedipine ER [Procardia XL -] 120 mg PO DAILY #180 tab.er.24 05/28/19 RX: Amitriptyline HCl [Elavil -] 50 mg PO HS #30 tablet 06/07/19 RX: Sevelamer Carbonate [Renvela -] 1,600 mg PO TIDCM tab 06/07/19 <Quinn Jurado - Last Filed: 06/08/19 12:03> Condition: Improved - Instructions Diet, Activity, Other Instructions: You were seen here because you needed dialysis. You received dialysis and can be discharged from the hospital today. MEDICATION CHANGES: Continue Amitryptiline 50mg NIGHTLY Continue the rest of your medications as you have been prior to your hospitalization Follow-up: Please follow-up with Dr. Barahona for the rest of your medicines Please follow-up with your regularly scheduled HD appointments Please follow-up with Dr. Clemens for pulmonary function tests Referrals: Agnela Barahona [Primary Care Provider] - 1 Week Jerome Clemens MD [Staff Physician] - 1 Week (PFTs and sleep study) Quentin Goyal MD [Staff Physician] - (Regularly scheduled dialysis appointments) Disposition: VNS/HOME HEALTH CARE This patient is new to me today: Yes Date on this admission: 06/07/19 Emergency Visit: Yes ED Registration Date: 06/06/19 Care time: The patient presented to the Emergency Department on the above date and was hospitalized for further evaluation of their emergent condition. Critical Care patient: No - Discharge Referral Referred to [facility] No <Beau Juan - Last Filed: 06/07/19 15:59> This patient is new to me today: No Emergency Visit: Yes ED Registration Date: 06/06/19 Care time: The patient presented to the Emergency Department on the above date and was hospitalized for further evaluation of their emergent condition. Critical Care patient: No - Discharge Referral Referred to [facility] No <Quinn Jurado - Last Filed: 06/08/19 12:03> ATTENDING PHYSICIAN STATEMENT I saw and evaluated the patient. I reviewed the resident's note and discussed the case with the resident. I agree with the resident's findings and plan as documented. SUBJECTIVE: OBJECTIVE: ASSESSMENT AND PLAN: <Beau Juan - Last Filed: 06/07/19 15:59> ATTENDING PHYSICIAN STATEMENT I saw and evaluated the patient. I reviewed the resident's note and discussed the case with the resident. I agree with the resident's findings and plan as documented. SUBJECTIVE: OBJECTIVE: ASSESSMENT AND PLAN: <Quinn Jurado - Last Filed: 06/08/19 12:03>
[2019-06-07] MEDS ORDERED: CALCITRIOL 0.25 MCG CAPSULE (FP) PO SCH (10:00)
[2019-06-07] MEDS ORDERED: LOSARTAN POTASSIUM 50 MG TABLET (FP) PO SCH (10:00)
[2019-06-07] MEDS ORDERED: NICOTINE 21 MG/24 HOURS TOPICAL PATCH TD SCH (10:00)
[2019-06-07] MEDS ORDERED: PATIENT'S OWN MEDICATION (NON-FORMULARY) (Losartan Potassium [Losartan Potassium] 100 MG) PO SCH (10:00)
[2019-06-07] MEDS ORDERED: NIFEdipine E.R 60 MG TABLET (UD) PO SCH (10:00)
[2019-06-07] MEDS: CALCIUM ACETATE 667 MG CAPSULE (FP) PO SCH ×3 (10:28→17:37)
[2019-06-07] MEDS: SEVELAMER CARBONATE 800 MG TAB (FP) PO SCH ×3 (10:28→17:37)
[2019-06-07 11:29] VITALS: TEMP 98.9
[2019-06-07] MEDS ORDERED: PT OWN MED DRAWER 7, Y5N ONE ×2 (13:25→14:01)
--- NOTE | 2019-06-07 13:39 | PN ---
Progress Note (short form) - Note Progress Note: Renal follow up for ESRD on HD Seen while on dialysis. no acute complaints no sob, cough BP stable, UF goal 1L access working well Vital Signs Temperature 98.9 F 06/07/19 11:15 Pulse Rate 90 06/07/19 12:50 Respiratory Rate 18 06/07/19 12:50 Blood Pressure 163/77 06/07/19 12:50 O2 Sat by Pulse Oximetry (%) 97 06/06/19 19:15 Intake & Output 06/04/19 06/05/19 06/06/19 06/07/19 23:59 23:59 23:59 23:59 Intake Total 520 210 Output Total 2300 Balance -1780 210 Weight 52.163 kg NAD awake and alert neck supple RRR CTA no LE edema CBC, BMP 06/07/19 06:00 06/07/19 06:00 Current Medications Acetaminophen (Tylenol -) 650 mg PO Q6H PRN PRN Reason: FEVER Alprazolam (Xanax -) 0.25 mg PO Q12H PRN PRN Reason: ANXIETY Last Admin: 06/07/19 06:00 Dose: 0.25 mg Amitriptyline HCl (Elavil -) 50 mg PO HS [facility] Aspirin (Asa -) 81 mg PO DAILY [facility] Last Admin: 06/06/19 18:08 Dose: 81 mg Atorvastatin Calcium (Lipitor -) 10 mg PO HS [facility] Last Admin: 06/06/19 22:34 Dose: 10 mg Calcitriol (Rocaltrol -) 0.25 mcg PO DAILY [facility] Calcium Acetate (Phoslo -) 667 mg PO TIDCM [facility] Last Admin: 06/07/19 10:28 Dose: Not Given Carvedilol (Coreg -) 6.25 mg PO BID [facility] Last Admin: 06/06/19 22:34 Dose: 6.25 mg Cholestyramine Resin (Questran Light Packet -) 4 gm PO BID [facility] Last Admin: 06/06/19 22:34 Dose: 4 gm Ferrous Sulfate (Feosol -) 325 mg PO BID [facility] Last Admin: 06/06/19 22:34 Dose: 325 mg Sodium Chloride (Normal Saline -) 250 mls @ 3,000 mls/hr IV PRN PRN PRN Reason: Hypotension during Dialysis Stop: 06/07/19 16:25 Losartan Potassium (Cozaar -) 50 mg PO DAILY [facility] Nicotine (Nicoderm Patch -) 21 mg TD DAILY [facility] Nifedipine (Procardia Xl -) 120 mg PO DAILY [facility] Sevelamer Carbonate (Renvela -) 1,600 mg PO TIDCM [facility] Last Admin: 06/07/19 10:28 Dose: Not Given 83 year old woman with history of ESRD on HD, DM type 2, hypertension, CAD who presented with generalized weakness and cough with K of 5.7 after a missed dialysis. 1. ESRD on HD 2. Hyperkalemia from missed dialysis 3. DM type 2 4. Hypertension 5. Hyperphosphatemia 6. Depression tolerating dialysis as inpatient today, for discharge home following tx social work attempting to arrange home care/aid start renvela for hyperphosphatemia Renal diet, 1.2L fluid restriction discharge planning as per primary Quentin Goyal DO
[2019-06-07] MEDS: ASPIRIN 81 MG CHEWABLE TABLETS PO SCH (14:41)
[2019-06-07] MEDS: CARVEDILOL 6.25 MG TABLET (FP) PO SCH (14:41)
[2019-06-07] MEDS: FERROUS SO4 325 MG TABLET (FP) PO SCH (14:42)
[2019-06-07] MEDS: CHOLESTYRAMINE/ASPARTAME 4 GM PACKET PO SCH (14:44)
[2019-06-07 16:18] VITALS: BP 141/69; PULSE 90
[2019-06-07] MEDS ORDERED: AMITRIPTYLINE HCL 25 MG TABLET (FP) PO SCH (22:00)
== END 2019-06-07 19:19 | disposition home health service (06) ==
LOC: JER 08:18 → JERBED 11:31 → J4W 20:19
PROVIDERS: ADMIT Internal Medicine; ATTEND Internal Medicine
PROC: 3E033GC Introduction of Other Therapeutic Substance into Peripheral Vein, Percutaneous Approach (ICD-10-PCS; principal; 2019-06-06)
DX: E11.22 Type 2 diabetes mellitus with diabetic chronic kidney disease (principal); I12.0 Hypertensive chronic kidney disease with stage 5 chronic kidney disease or end stage renal disease; N18.6 End stage renal disease; F17.210 Nicotine dependence, cigarettes, uncomplicated; Z99.2 Dependence on renal dialysis; Z91.15 Patient's noncompliance with renal dialysis; I73.9 Peripheral vascular disease, unspecified; M19.90 Unspecified osteoarthritis, unspecified site; F41.9 Anxiety disorder, unspecified; F32.9 Major depressive disorder, single episode, unspecified; D64.89 Other specified anemias; K59.00 Constipation, unspecified; E87.2 Acidosis; J20.9 Acute bronchitis, unspecified; E78.5 Hyperlipidemia, unspecified; E83.30 Disorder of phosphorus metabolism, unspecified; M62.81 Muscle weakness (generalized); Z60.9 Problem related to social environment, unspecified; Z89.421 Acquired absence of other right toe(s); Z79.82 Long term (current) use of aspirin; Z88.0 Allergy status to penicillin; Z88.1 Allergy status to other antibiotic agents; Z91.013 Allergy to seafood; Z91.048 Other nonmedicinal substance allergy status
CPT/HCPCS: 36415; 71045-TC-FY; 80048; 80053; 82962; 83735; 84100; 85025; 85027; 85610; 87804; 93005; 93010; 99285-25; G0378; J1644

== ENCOUNTER 2019-06-24 21:04 | Emergency (ER) | payer OTHER ==
--- NOTE | 2019-06-24 21:15 | PDOC ---
History of Present Illness - General Stated Complaint: WEAKNESS Time Seen by Provider: 06/24/19 21:06 History Source: Patient, Old Records Exam Limitations: No Limitations - History of Present Illness Initial Comments: HPI: 83 y/o female presenting to [facility] ER complaining of generalized weakness that started after dialysis. Pt reports she was unable to finish the last 15 min of the dialysis run because she needed to use the bathroom. She walked out of the center feeling tired. She then suddenly began to feel weak. She made her way back into the center and an ambulance was called. Expressed concern for a panic attack. She was not able to take her prescribed benzodiazepine. Denies chest pain, SOB, syncope, or recent illness. Reports symptoms had resolved prior to arrival to this department. Now feels safe. Subsequently denies concerns for personal safety. Medical Hx: - HTN - ESRD on HD (M,W,F) - DM (no longer on any medication) - PVD - H/o Anemia requiring transfusions - Tobacco use disorder (1.5 ppd) - OA - Anxiety Review of Systems: In addition to that documented in the HPI above, the additional ROS was obtained : Constitutional- Denies fevers or chills Head- Denies vision changes ENMT- Denies sore throat CV- Denies chest pain Resp- Denies SOB GI- Denies vomiting or diarrhea - Denies painful urination, hematuria, or increased urinary frequency MSK- Denies recent trauma Skin- Denies new rashes Neuro- Endorses generalized weakness. Denies new numbness or tingling Endocrine- Denies polyuria Heme- Denies bleeding or bruising Physical Examination: Constitutional- Elderly adult female in no acute distress or obvious discomfort. Found semi-fowlers on hospital bed. Answered all questions appropriately and completely. Head- Normocephalic. No obvious external signs of trauma. Eyes- Sclerae white. Neck- Supple, trachea is midline. Cardiovascular / Chest- Regular rate and regular rhythm. No murmur, rubs, clicks , or gallops. Peripheral pulses- radial pulses full. Trace pretibial edema. Likely fungal infection with redness following both inframammary creases. Respiratory- Breathing unlabored. Speaking in complete sentences without pausing for breath. Equal chest rise and fall. Clear to auscultation bilaterally. No stridor, no wheezing, no rhonchi. Gastrointestinal- abdomen is soft, non-tender, non-distended. Neuro- Alert and oriented x4. Moving all four extremities spontaneously. MSK- Ecchymosis and tenderness to dorsal surface of right thumb. No obvious angulation or bony deformity. Skin- Warm, dry, and intact. Psych- Affect- appropriate. Mood- normal. Speech was non-labored, non- pressured. MDM: *Reviewed vital signs, nursing notes, and prior visit documentation (if available). 83 y/o female presenting with generalized weakness versus sense of anxiety after dialysis. Afebrile. Vitals unremarkable for hypotension or tachycardia. Physical exam as described above. EKG unremarkable for ischemic changes. Troponin negative at 0 and 3 hours. CMP unremarkable for electrolyte derangement. Symptoms continued to resolve during ED course with further improvement after prescribed nightly dose of Xanax. During initial interview, pt reported she fell the day prior and sustained a minor injury to her thumb. She said she did not think it was broken and did not want it examined. Just before discharge, pt reported she suddenly developed a brief episode of numbness and requested an xray. 25 Jun 2019 02:00 AM Pt signed out to resident Dr. Ariza after she was verbally appraised of the pts HPI, current ED course, and plan of management. Will f/u pending hand plain film. Brian Ewing M.D., PGY2 Emergency Medicine Resident Past History - Past Medical History Allergies/Adverse Reactions: Allergies Allergy/AdvReac Type Severity Reaction Status Date / Time iodine Allergy Rash Verified 06/06/19 08:33 penicillin V Allergy Verified 06/06/19 08:33 shellfish derived Allergy Rash Verified 06/06/19 08:33 vancomycin Allergy Verified 06/06/19 08:33 azithromycin AdvReac Verified 06/06/19 08:33 Home Medications: Ambulatory Orders Alprazolam [Xanax] 0.25 mg PO BID PRN 02/19/19 Aspirin [ASA -] 81 mg PO DAILY 02/19/19 Atorvastatin Ca [Lipitor] 10 mg PO HS 02/19/19 Calcitriol [Calcitriol -] 0.25 mcg PO DAILY 02/19/19 Calcium Acetate 667 mg PO TID 02/19/19 Carvedilol [Coreg -] 6.25 mg PO BID 02/19/19 Acetaminophen [Tylenol .Regular Strength -] 650 mg PO Q6H PRN tablet 04/19/19 Ferrous Sulfate 325 mg PO BID 05/25/19 Losartan Potassium [Cozaar -] 50 mg PO DAILY #90 tablet 05/28/19 Nifedipine ER [Procardia XL -] 120 mg PO DAILY #180 tab.er.24 05/28/19 Amitriptyline HCl [Elavil -] 50 mg PO HS #30 tablet 06/07/19 Sevelamer Carbonate [Renvela -] 1,600 mg PO TIDCM tab 06/07/19 Anemia: Yes Asthma: Yes Cancer: No Cardiac Disorders: Yes (PAD,CAD) CVA: No COPD: No CHF: No DVT: No Dementia: No Diabetes: Yes Dialysis: Yes (M,W,F R SUBCLAVIN PORT) GI Disorders: Yes (chronic diarrhea) Disorders: No HTN: Yes Hypercholesterolemia: Yes Liver Disease: No Seizures: No Thyroid Disease: No - Surgical History Abdominal Surgery: No Appendectomy: No Cardiac Surgery: Yes (FEMORAL BYPASS) Cholecystectomy: Yes Lung Surgery: No Neurologic Surgery: No Orthopedic Surgery: Yes (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) - Immunization History Td Vaccination: Yes TDAP Vaccination: Yes Immunization Up to Date: Yes - Psycho Social/Smoking Cessation Hx Smoking Status: Yes Smoking History: Current every day smoker Have you smoked in the past 12 months: Yes Number of Cigarettes Smoked Daily: 12 If you are a former smoker, when did you quit?: 08/10/2012 Cigars Per Day: 30 'Breaking Loose' booklet given: 08/28/18 Hx Alcohol Use: No Drug/Substance Use Hx: No Substance Use Type: None Hx Substance Use Treatment: No Vital Signs - Vital Signs #1 Blood Pressure: 176/65 (@21:40) MAP: 102 BP Location: Left Arm Blood Pressure Position: Sitting Pulse Rate: 90 Respiratory Rate: 20 O2 Sat by Pulse Oximetry (%): 99 Oxygen Delivery Method: Room Air #2 Blood Pressure: 174/68 (@22:59) MAP: 103 BP Location: Left Arm Blood Pressure Position: Sitting Pulse Rate: 88 Respiratory Rate: 15 O2 Sat by Pulse Oximetry (%): 97 Oxygen Delivery Method: Room Air ED Treatment Course - LABORATORY CBC & Chemistry Diagram: 06/24/19 21:50 06/24/19 21:50 - RADIOLOGY Radiology Studies Ordered: Category Date Time Status CHEST X-RAY PORTABLE* [RAD] Stat Radiology 06/24/19 21:10 Ordered Discharge - Discharge Information Problems reviewed: Yes Clinical Impression/Diagnosis: Thumb fracture, Weakness Condition: Stable Disposition: HOME - Follow up/Referral Referrals: Angela Barahona [Primary Care Provider] - - Patient Discharge Instructions Patient Printed Discharge Instructions: DI for a Hand Fracture Additional Instructions: You were seen in the ED for complaints weakness and were found to he a R thumb fx You should follow up with your Family Doctor within 1 week You have a referral for Orthopedics and should follow up within 1 week Rest and ice your thumb Take over the counter pain medications Return to the ED if you experience numbness, tingling, fevers or any other concerning symptoms. - Post Discharge Activity
[2019-06-24 21:30] VITALS: BMI 20.3
[2019-06-24] MEDS ORDERED: CLOTRIMAZOLE 1% CREAM 15 GM TUBE TP ONE (21:54)
[2019-06-24 21:58] LABS: BASO % 0.8 % (0-2.0); EOS % 4.6 % (0-4.5); HEMATOCRIT 37.5 % (32.4-45.2); HEMOGLOBIN 12.4 GM/dL (10.7-15.3); MCH 31.2 pg (25.7-33.7); MCHC 33.1 g/dl (32.0-36.0); MEAN CELL VOLUME 94.4 fl (80-96); MEAN PLT VOLUME 7.6 fl (7.5-11.1); MONO % 8.6 % (3.8-10.2); PLATELET COUNT 212 K/MM3 (134-434); RBC 3.97 M/mm3 (3.60-5.2); RDW 16.5 % (11.6-15.6); WHITE BLOOD COUNT 8.8 K/mm3 (4.0-10.0)
--- NOTE | 2019-06-24 22:05 | PDOC ---
Attending Attestation - Resident Resident Name: Brian Ewing - ED Attending Attestation I have performed the following: I have examined & evaluated the patient, The case was reviewed & discussed with the resident, I agree w/resident's findings & plan, Exceptions are as noted - HPI HPI: 06/24/19 22:03 83-year-old female had finished all her dialysis except for the last 15 minutes when she asked to be discharged so she can use the bathroom. She states that she walked out and experienced a panic attack and therefore walked back into the building and sat down. She denied shortness of breath or chest pain or fever or nausea or vomiting or diarrhea she has no headache or abdominal pain - Physicial Exam PE: 06/24/19 22:05 petite 83 yo female is currently comfortable and alert and conversant head ncat neck supple cvs [id number] lungs no wheezing,no rales Breast she has fungal infections under her breast abd nontender skin warm and dry no flank pain neuro axox3,moving all extremities psych appropriate 06/24/19 23:29 - Medical Decision Making 06/24/19 22:07 EKG is normal sinus rhythm at 90 bpm, nonspecific T wave abnormalities, no signs of acute ischemia 06/24/19 22:43 83-year-old female past medical history of end-stage renal disease with dialysis on Monday, hypertension, hyperlipidemia, anemia, diabetes Past surgical history includes a right femoropopliteal bypass, amputation of the first right toe Review of labs CBC is unremarkable Urinalysis is unremarkable 06/24/19 22:56 chemistries show creatinine=3.1 ,the rest of her labs are unremarkable;e 06/24/19 22:56 plan if the 2rd troponin is negative ,pt wll be discharged
[2019-06-24 22:28] LABS: EPI CELLS 0.9 /HPF (0-5/HPF); HYALINE CASTS 1 /lpf (0-8); PH,URINE >= 9.0 (5.0-8.0); URINE APPEARANCE CLEAR; URINE BACTERIA 4.5 /hpf (NEGATIVE); URINE BILIRUBIN NEGATIVE (NEGATIVE); URINE COLOR YELLOW; URINE GLUCOSE (UA) TRACE (NEGATIVE); URINE KETONE NEGATIVE (NEGATIVE); URINE LEUK ESTERASE TRACE (NEGATIVE); URINE NITRITE NEGATIVE (NEGATIVE); URINE PROTEIN 3+ (NEGATIVE); URINE RBC 0 /hpf (0-4); URINE UROBILINOGEN 0.2 mg/dL (0.2-1.0); URINE WBC 3 /hpf (0-5)
[2019-06-24 22:46] LABS: ALBUMIN 3.4 g/dl (3.4-5.0); BILIRUBIN,TOTAL 0.3 mg/dL (0.2-1); BLOOD UREA NITROGEN 11.2 mg/dL (7-18); CALCIUM 8.8 mg/dL (8.5-10.1); CREATININE 3.1 mg/dL (0.55-1.3); MAGNESIUM 2.1 mg/dL (1.8-2.4); POTASSIUM 3.7 mmol/L (3.5-5.1); TOT PROT 7.7 g/dl (6.4-8.2)
[2019-06-24] MEDS ORDERED: ALPRAZolam 0.25 MG TABLET PO ONE (23:29)
[2019-06-24] MEDS ORDERED: ALPRAZolam 0.25 MG TABLET ONE (23:33)
--- NOTE | 2019-06-25 02:18 | PDOC ---
*Physical Exam - Vital Signs Last Vital Signs Temp Pulse Resp BP Pulse Ox 98.6 F 90 20 176/65 H 99 06/24/19 21:27 06/24/19 23:00 06/24/19 23:00 06/24/19 23:00 06/24/19 23:00 - Physical Exam Comments: 06/25/19 02:53 Patient with R thumb fx thumb spica attempted to be placed Patient refused thumb spica after lengthy 30min conversation Patient expresses capacity and understands consequences, however does not desire spica placement Patient plans to f.u with PCP and Ortho ED Treatment Course - LABORATORY CBC & Chemistry Diagram: 06/24/19 21:50 06/24/19 21:50 - ADDITIONAL ORDERS Additional order review: Laboratory Results 06/25/19 06/24/19 06/24/19 01:12 22:15 21:50 Sodium Potassium Chloride Carbon Dioxide Anion Gap BUN Creatinine Est GFR (CKD-EPI)AfAm Est GFR (CKD-EPI)NonAf POC Glucometer Random Glucose Calcium Phosphorus Magnesium Total Bilirubin AST ALT Alkaline Phosphatase Troponin I < 0.02 < 0.02 Total Protein Albumin Urine Color Yellow Urine Appearance Clear Urine pH >= 9.0 H Ur Specific [place] 1.005 L Urine Protein 3+ H Urine Glucose (UA) Trace Urine Ketones Negative Urine Blood Trace Urine Nitrite Negative Urine Bilirubin Negative Urine Urobilinogen 0.2 Ur Leukocyte Esterase Trace Urine WBC (Auto) 3 Urine RBC (Auto) 0 Urine Casts (Auto) 1 U Epithel Cells (Auto) 0.9 Urine Bacteria (Auto) 4.5 06/24/19 06/24/19 06/24/19 21:50 21:50 21:24 Sodium 136 Potassium 3.7 Chloride 100 Carbon Dioxide 28 Anion Gap 8 BUN 11.2 Creatinine 3.1 H Est GFR (CKD-EPI)AfAm 15.58 Est GFR (CKD-EPI)NonAf 13.44 POC Glucometer 93 Random Glucose 95 Calcium 8.8 Phosphorus 2.4 L Magnesium 2.1 Total Bilirubin 0.3 AST 26 ALT 21 Alkaline Phosphatase 88 Troponin I Total Protein 7.7 Albumin 3.4 Urine Color Urine Appearance Urine pH Ur Specific [place] Urine Protein Urine Glucose (UA) Urine Ketones Urine Blood Urine Nitrite Urine Bilirubin Urine Urobilinogen Ur Leukocyte Esterase Urine WBC (Auto) Urine RBC (Auto) Urine Casts (Auto) U Epithel Cells (Auto) Urine Bacteria (Auto) 06/24/19 06/24/19 21:50 21:24 RBC 3.97 MCV 94.4 MCHC 33.1 RDW 16.5 H MPV 7.6 Neutrophils % 66.0 Lymphocytes % 20.0 D Monocytes % 8.6 Eosinophils % 4.6 H Basophils % 0.8 POC Glucometer 93 - Medications Given in the ED: ED Medications Discontinued Medications Generic Name Dose Route Start Last Admin Trade Name Nafisa PRN Reason Stop Dose Admin Alprazolam 0.25 mg 06/24/19 23:29 06/24/19 23:35 Xanax - PO 06/24/19 23:30 0.25 mg ONCE ONE Administration Clotrimazole 1 applic 06/24/19 21:54 06/24/19 23:25 Lotrimin 1% Cream - TP 06/24/19 21:55 1 applic NOW ONE Administration Discharge - Discharge Information Problems reviewed: Yes Clinical Impression/Diagnosis: Thumb fracture, Weakness Condition: Stable Disposition: HOME - Admission No - Follow up/Referral Referrals: Angela Barahona [Primary Care Provider] - - Patient Discharge Instructions Patient Printed Discharge Instructions: DI for a Hand Fracture Additional Instructions: You were seen in the ED for complaints weakness and were found to he a R thumb fx You should follow up with your Family Doctor within 1 week You have a referral for Orthopedics and should follow up within 1 week Rest and ice your thumb Take over the counter pain medications Return to the ED if you experience numbness, tingling, fevers or any other concerning symptoms. - Post Discharge Activity
[2019-06-25 04:06] VITALS: TEMP 98.4
--- NOTE | 2019-06-25 09:18 | EKG ---
Test Reason : Blood Pressure : / mmHG Vent. Rate : 090 BPM Atrial Rate : 090 BPM P-R Int : 160 ms QRS Dur : 096 ms QT Int : 382 ms P-R-T Axes : 019 046 029 degrees QTc Int : 467 ms NORMAL SINUS RHYTHM NONSPECIFIC T WAVE ABNORMALITY ABNORMAL ECG WHEN COMPARED WITH ECG OF 06-JUN-2019 09:13, NONSPECIFIC T WAVE ABNORMALITY NOW EVIDENT IN INFERIOR LEADS NONSPECIFIC T WAVE ABNORMALITY NOW EVIDENT IN LATERAL LEADS Confirmed by MD Jesse, Coy ([id number]) on 06/25/2019 9:18:00 AM Referred By: Confirmed By:Coy Molina MD
[2019-06-26 14:15] VITALS: BP 176/65; PULSE 90
== END 2019-06-25 04:15 | disposition home or self-care (01) ==
LOC: JER 21:04
DX: R53.1 Weakness (principal); S62.521A Displaced fracture of distal phalanx of right thumb, initial encounter for closed fracture; X58.XXXA Exposure to other specified factors, initial encounter; Y93.9 Activity, unspecified; Y92.89 Other specified places as the place of occurrence of the external cause; Y99.8 Other external cause status; I12.0 Hypertensive chronic kidney disease with stage 5 chronic kidney disease or end stage renal disease; E11.22 Type 2 diabetes mellitus with diabetic chronic kidney disease; N18.6 End stage renal disease; N17.8 Other acute kidney failure; Z99.2 Dependence on renal dialysis; E78.00 Pure hypercholesterolemia, unspecified; D64.9 Anemia, unspecified; J45.909 Unspecified asthma, uncomplicated; I73.89 Other specified peripheral vascular diseases; M19.90 Unspecified osteoarthritis, unspecified site; F41.9 Anxiety disorder, unspecified; F17.210 Nicotine dependence, cigarettes, uncomplicated; Z88.0 Allergy status to penicillin; Z91.013 Allergy to seafood; Z88.1 Allergy status to other antibiotic agents; Z88.8 Allergy status to other drugs, medicaments and biological substances; Z89.411 Acquired absence of right great toe; Z89.421 Acquired absence of other right toe(s)
CPT/HCPCS: 36415; 71045-TC-FY; 73130-TC-RT-FY; 80053; 81003; 82962; 83735; 84100; 84484; 85025; 87086; 93005; 93010; 99285-25

== ENCOUNTER 2019-06-28 09:08 | Observation (INO) | payer OTHER ==
--- NOTE | 2019-06-28 09:22 | PDOC ---
History of Present Illness - General Chief Complaint: Weakness Stated Complaint: Weakness Time Seen by Provider: 06/28/19 09:22 History Source: Patient Exam Limitations: No Limitations - History of Present Illness Initial Comments: Pt is an 83 yo F, with PMH of HTN, ESRD (port R chest wall, HD M/W/F), DM ( controlled, not on meds), PVD, anemia (requiring transfusions), anxiety, and chronic loose stool 2/2 GB issues (on cholestyramine), who is presenting for generalized weakness and unsteady gait. Pt states she missed her HD on Monday (last full tx on Monday), due to "being sick with diarrhea," 3 episodes of loose brown stool on Monday and . Pt states symptoms resolved, but she had unsteady gait due to feeling like her legs were weak. Pt has been tolerating PO intake at home without difficulty, is ambulatory with a walker. Pt denies any recent fevers/chills, headache, vision changes, syncope, chest pain, palpitations, SOB, nausea/vomiting, abdominal pain, urinary symptoms , blood in the urine or stool, or leg swelling. Allergies: NKDA PCP: Dr. Maria Luz Barahona Renal: Dr. Goyal Social: Pt smokes 1.5 ppd. Pt denies any alcohol or drug use. Pt denies any recent travel or sick contacts. Surgical: GB stone removal. Family: no relevant history. 06/28/19 10:00 Past History - Travel Traveled outside of the country in the last 30 days: No Close contact w/someone who was outside of country & ill: No - Past Medical History Allergies/Adverse Reactions: Allergies Allergy/AdvReac Type Severity Reaction Status Date / Time iodine Allergy Rash Verified 06/28/19 09:44 penicillin V Allergy Verified 06/28/19 09:44 shellfish derived Allergy Rash Verified 06/28/19 09:44 vancomycin Allergy Verified 06/28/19 09:44 azithromycin AdvReac Verified 06/28/19 09:44 Home Medications: Ambulatory Orders Alprazolam [Xanax] 0.25 mg PO BID PRN 02/19/19 Aspirin [ASA -] 81 mg PO DAILY 02/19/19 Atorvastatin Ca [Lipitor] 10 mg PO HS 02/19/19 Calcitriol [Calcitriol -] 0.25 mcg PO DAILY 02/19/19 Calcium Acetate 667 mg PO TID 02/19/19 Carvedilol [Coreg -] 6.25 mg PO BID 02/19/19 Acetaminophen [Tylenol .Regular Strength -] 650 mg PO Q6H PRN tablet 04/19/19 Ferrous Sulfate 325 mg PO BID 05/25/19 Losartan Potassium [Cozaar -] 50 mg PO DAILY #90 tablet 05/28/19 Nifedipine ER [Procardia XL -] 120 mg PO DAILY #180 tab.er.24 05/28/19 Amitriptyline HCl [Elavil -] 50 mg PO HS #30 tablet 06/07/19 Sevelamer Carbonate [Renvela -] 1,600 mg PO TIDCM tab 06/07/19 Anemia: Yes Asthma: Yes Cancer: No Cardiac Disorders: Yes (PAD,CAD) CVA: No COPD: No CHF: No DVT: No Dementia: No Diabetes: Yes Dialysis: Yes (M,W,F R SUBCLAVIN PORT) GI Disorders: Yes (chronic diarrhea) Disorders: No HTN: Yes Hypercholesterolemia: Yes Liver Disease: No Seizures: No Thyroid Disease: No - Surgical History Abdominal Surgery: No Appendectomy: No Cardiac Surgery: Yes (FEMORAL BYPASS) Cholecystectomy: Yes Lung Surgery: No Neurologic Surgery: No Orthopedic Surgery: Yes (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) - Immunization History Td Vaccination: Yes TDAP Vaccination: Yes Immunization Up to Date: Yes - Psycho Social/Smoking Cessation Hx Smoking Status: Yes Smoking History: Current every day smoker Have you smoked in the past 12 months: Yes Number of Cigarettes Smoked Daily: 12 If you are a former smoker, when did you quit?: 08/10/2012 Cigars Per Day: 30 'Breaking Loose' booklet given: 08/28/18 Hx Alcohol Use: No Drug/Substance Use Hx: No Substance Use Type: None Hx Substance Use Treatment: No Review of Systems - Review of Systems Able to Perform ROS?: Yes Is the patient limited Armenian proficient: No Constitutional: Yes: Malaise, Weakness, Weight Stable. No: Chills, Diaphoresis , Fever, Loss of Appetite HEENTM: No: Recent change in vision, Nose Congestion, Throat Pain, Throat Swelling, Difficulty Swallowing Respiratory: No: Cough, Orthopnea, Shortness of Breath Cardiac (ROS): No: Chest Pain, Edema, Irregular Heart Rate, Lightheadedness, Palpitations, Syncope, Chest Tightness ABD/GI: Yes: Diarrhea. No: Constipated, Nausea, Poor Appetite, Poor Fluid Intake, Rectal Bleeding, Vomiting, Abdominal cramping : No: Burning, Dysuria, Frequency, Flank Pain, Pain, Urgency Musculoskeletal: No: Back Pain, Joint Pain, Muscle Pain, Muscle Weakness Integumentary: No: Rash Neurological: Yes: Unsteady Gait. No: Headache, Numbness, Seizure, Weakness, Ataxia, Dizziness Psychiatric: No: Sleep Pattern Change, Change in Appetite Endocrine: No: Increased Urine, Change in Weight Hematologic/Lymphatic: Yes: Anemia. No: Blood Clots, Easy Bleeding, Easy Bruising All Other Systems: Reviewed and Negative *Physical Exam - Physical Exam Comments: HTN (at pt baseline), pt afebrile. Pt in NAD, thin body habitus. Pt alert and oriented x3. 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 No midline spinal tenderness, step-offs, or crepitus. Head normocephalic, atraumatic. Eyes PERRLA, EOMI. Oropharynx without erythema or exudates, no LAD b/l. No nasal congestion. Hearing intact. Clear heart sounds, S1/S2, no JVD, b/l pedal edema, or heart murmur. Port intact in R chest wall, no erythema or drainage. Clear lung sounds, no respiratory distress, wheezes, crackles, or accessory muscle use. No abdominal or CVA tenderness to palpation, no rebound, no guarding. Abdomen soft, non-distended, and with normoactive bowel sounds. Extensive ecchymosis to R thumb and distal wrist (known R thumb fracture). Skin without jaundice or rash. 06/28/19 10:08 06/28/19 10:12 ED Treatment Course - LABORATORY CBC & Chemistry Diagram: 06/28/19 10:00 06/28/19 10:00 Medical Decision Making - Medical Decision Making Pt was seen at bedside, also will be seen by attending Dr. Frey. Pt presenting with generalized weakness 2/2 loose stool and missing dialysis. Will evaluate with labs for electrolyte imbalances, ACS, need for urgent HD. Moist mucous membranes, does not appear clinically dehydrated. BP hypertensive, but at pt baseline, pt asymptomatic now. No signs of end-organ damage. Pt seen 06/24 for R thumb pain after falling. Pt refused thumb spica splint at that time and states swelling and bruising is improving. Will continue to reassess pt and monitor for symptomatic improvement. 06/28/19 10:09 Chest x-ray with no acute pathology Labs sent and pending 06/28/19 10:13 CBC WNL CMP: K 5.2, no ECG changes; BUN/Cr 43/7.5, pts baseline after skipping dialysis Paged renal and Dr. Barahona for admission and dialysis 06/28/19 11:[address] Barahona, who states pt should be admitted for observation for HD Paging Dr. Goyal x2 06/28/19 12:04 Pt admitted to hospitalist team for admission. Stable and comfortable. 06/28/19 12:22 Discharge - Discharge Information Problems reviewed: Yes Clinical Impression/Diagnosis: Weakness CKD (chronic kidney disease) Qualifiers: Chronic kidney disease stage: unspecified stage Qualified Code(s): N18.9 - Chronic kidney disease, unspecified Condition: Stable - Admission Yes - Follow up/Referral Referrals: Angela Barahona [Primary Care Provider] - - Patient Discharge Instructions - Post Discharge Activity
--- NOTE | 2019-06-28 09:52 | PDOC ---
Documentation entered by Janelle Lindquist SCRIBE, acting as scribe for Rachael Frey MD. Rachael Frey MD: This documentation has been prepared by the Ameena box Nirvannie, SCRIBE, under my direction and personally reviewed by me in its entirety. I confirm that the documentation accurately reflects all work, treatment, procedures, and medical decision making performed by me. Attending Attestation - Resident Resident Name: BreonnaGeovanna - ED Attending Attestation I have performed the following: I have examined & evaluated the patient, The case was reviewed & discussed with the resident, I agree w/resident's findings & plan - HPI HPI: 06/28/19 09:51 83 YOF HTN, ESRD on HD (M,W,F), DM (no longer on any medication), PVD, anemia, smoking, OA, anxiety presenting to the ED missing dialysis, +generalized weakness, diarrhea/loose brown stool. Pt states symptoms resolved, but she had unsteady gait due to feeling like her legs were weak. Pt has been tolerating PO intake at home without difficulty, is ambulatory with a walker. Pt denies any recent fevers/chills, headache, vision changes, syncope, chest pain, palpitations, SOB, nausea/vomiting, abdominal pain , urinary symptoms, blood in the urine or stool, or leg swelling. 06/28/19 13:36 - Physicial Exam PE: 06/28/19 09:49 Agree with the resident's HPI and PE as documented in the electronic medical record. NAD, well appearing, EOMI, PERRL, nl conjunctiva, anicteric; neck supple. lungs clear, RRR, abdomen soft nontender. no rebound, guarding. Back nontender. HORVATH x4, no focal neuro deficits. No peripheral edema. normal color for ethnicity , WWP. - Medical Decision Making 06/28/19 09:51 Vital Signs Temp Pulse Resp BP Pulse Ox 97.7 F 87 18 182/87 H 100 06/28/19 09:20 06/28/19 09:20 06/28/19 09:20 06/28/19 09:20 06/28/19 09:20 vs notable for hypertension. otherwise unremarkable. labs and lytes with Cr elevation to 7.5 (from 3), gets HD, Acute on CKD, normal lytes with K 5.2, no indication to treat EKG sinus rhythm. no cp or sob. trop neg. missed HD, cs to nephro Dr Jay Jay Saavedra to arrange admit to Dr Barahona for diarrhea/weakness, HD, acute on chronic kidney disease likely due to missed HD> however, Dr Barahona does not do obs, recommends hospitalist admission, HD to be arranged and repletions as necessary, medical management. 06/28/19 13:37 Heart Score/ECG Review #1 ECG reviewed & interpreted by me at: 10:30 General ECG Interpretation: Sinus Rhythm, Normal Rate, Normal Intervals Compared to previous ECG there are: No significant change
[2019-06-28 10:24] LABS: EOS % 4.1 % (0-4.5); HEMOGLOBIN 13.5 GM/dL (10.7-15.3); LYMPH % 15.7 % (8-40); MCH 31.4 pg (25.7-33.7); MCHC 32.9 g/dl (32.0-36.0); MEAN CELL VOLUME 95.4 fl (80-96); MEAN PLT VOLUME 7.7 fl (7.5-11.1); MONO % 6.6 % (3.8-10.2); NEUT % 72.6 % (42.8-82.8); PLATELET COUNT 264 K/MM3 (134-434); RDW 16.6 % (11.6-15.6); WHITE BLOOD COUNT 6.8 K/mm3 (4.0-10.0)
[2019-06-28 10:52] LABS: ALBUMIN 3.7 g/dl (3.4-5.0); ALK PHOS 91 U/L (45-117); ANION GAP 13 MMOL/L (8-16); BILIRUBIN,TOTAL 0.3 mg/dL (0.2-1); BLOOD UREA NITROGEN 43.3 mg/dL (7-18); CALCIUM 7.9 mg/dL (8.5-10.1); CHLORIDE 109 mmol/L (98-107); CO2 18 mmol/L (21-32); GLUCOSE,RANDOM 113 mg/dL (74-106); PHOSPHOROUS 8.3 mg/dL (2.5-4.9); POTASSIUM 5.2 mmol/L (3.5-5.1); SGOT/AST 19 U/L (15-37); SGPT/ALT 20 U/L (13-61); SODIUM 140 mmol/L (136-145); TOT PROT 8.2 g/dl (6.4-8.2)
[2019-06-28 10:56] LABS: CREATININE 7.5 mg/dL (0.55-1.3)
--- NOTE | 2019-06-28 12:21 | HP ---
Admitting History and Physical - Primary Care Physician PCP: Angela Barahona - Admission Chief Complaint: weakness and diarrhea after missing HD on Monday and today History of Present Illness: This is a 83 year old woman with history of ESRD on HD (MWF), hypertension, DM, chronic diarrhea who presented from home with weakness after missing her last dialysis treatment and noted to have mild hyperkalemia and elevated BUN. Pt last had dialysis on Monday. Reports diarrhea. No abdominal pain, fever, chills, nausea or vomiting. She still makes urine. Denies any chest pain, shortness of breath. No leg swelling. History Source: Patient Limitations to Obtaining History: No Limitations - Past Medical History Cardiovascular: Yes: HTN, Hyperlipdemia, Murmur, Other (PAD) Pulmonary: Yes: Asthma, COPD Hepatobiliary: Yes: Cholelithiasis, Choledocholithiasis Renal/: Yes: Renal Inusuff, Hemodialysis Heme/Onc: Yes: Anemia Infectious Disease: Yes: Other (history of osteomyelitis in the past) Endocrine: Yes: Diabetes Mellitus - Past Surgical History Past Surgical History: Yes: Amputation (1-st R toe amputation), Bypass (Right fem pop bypass) - Smoking History Smoking history: Current every day smoker Have you smoked in the past 12 months: Yes Aproximately how many cigarettes per day: 12 If you are a former smoker, when did you quit?: 08/10/2012 - Alcohol/Substance Use Hx Alcohol Use: No History of Substance Use: reports: None - Social History 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, 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, 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 Travel: No Home Medications - Allergies Allergies/Adverse Reactions: Allergies Allergy/AdvReac Type Severity Reaction Status Date / Time iodine Allergy Rash Verified 06/28/19 09:44 penicillin V Allergy Verified 06/28/19 09:44 shellfish derived Allergy Rash Verified 06/28/19 09:44 vancomycin Allergy Verified 06/28/19 09:44 azithromycin AdvReac Verified 06/28/19 09:44 - Home Medications Home Medications: Ambulatory Orders Alprazolam [Xanax] 0.25 mg PO BID PRN 02/19/19 Aspirin [ASA -] 81 mg PO DAILY 02/19/19 Atorvastatin Ca [Lipitor] 10 mg PO HS 02/19/19 Calcitriol [Calcitriol -] 0.25 mcg PO DAILY 02/19/19 Calcium Acetate 667 mg PO TID 02/19/19 Carvedilol [Coreg -] 6.25 mg PO BID 02/19/19 Acetaminophen [Tylenol .Regular Strength -] 650 mg PO Q6H PRN tablet 04/19/19 Ferrous Sulfate 325 mg PO BID 05/25/19 Losartan Potassium [Cozaar -] 50 mg PO DAILY #90 tablet 05/28/19 Nifedipine ER [Procardia XL -] 120 mg PO DAILY #180 tab.er.24 05/28/19 Amitriptyline HCl [Elavil -] 50 mg PO HS #30 tablet 06/07/19 Sevelamer Carbonate [Renvela -] 1,600 mg PO TIDCM tab 06/07/19 Family Medical History Family History: Denies Review of Systems - Review of Systems Constitutional: reports: Lethargy, Weakness Eyes: reports: No Symptoms HENT: reports: No Symptoms Neck: reports: No Symptoms Cardiovascular: reports: No Symptoms Respiratory: reports: No Symptoms Gastrointestinal: reports: Diarrhea Genitourinary: reports: No Symptoms Breasts: reports: No Symptoms Reported Musculoskeletal: reports: Muscle Weakness Integumentary: reports: No Symptoms Neurological: reports: No Symptoms Endocrine: reports: No Symptoms Hematology/Lymphatic: reports: No Symptoms Psychiatric: reports: No Symptoms Physical Examination Vital Signs: Vital Signs Temperature 97.7 F 06/28/19 09:20 Pulse Rate 87 06/28/19 09:20 Respiratory Rate 18 06/28/19 09:20 Blood Pressure 182/87 H 06/28/19 09:20 O2 Sat by Pulse Oximetry (%) 100 06/28/19 10:50 Findings/Remarks: Constitutional: Yes: Well Nourished, No Distress, Calm Eyes: Yes: WNL, Conjunctiva Clear, EOM Intact HENT: Yes: WNL, Atraumatic, Normocephalic Neck: Yes: WNL, Supple, Trachea Midline Cardiovascular: Yes: WNL, Regular Rate and Rhythm Respiratory: Yes: WNL, Regular, CTA Bilaterally Gastrointestinal: Yes: WNL, Normal Bowel Sounds, Soft ...Rectal Exam: Yes: Deferred Renal/: Yes: WNL Musculoskeletal: Yes: WNL Extremities: Yes: Other (R AV fistula) Edema: No Peripheral Pulses WNL: Yes Integumentary: Yes: WNL Neurological: Yes: WNL, Alert, Oriented ...Motor Strength: WNL Psychiatric: Yes: WNL, Alert, Oriented Labs: CBC, BMP 06/28/19 10:00 06/28/19 10:00 Problem List - Problems (1) ESRD on hemodialysis Assessment/Plan: missed HD on monday and agian today seen by Dr Goyal will arranged for HD today and then she can resume her regular schedule c/w Renal diet, 1.2L fluid restriction hyperkalemia and acidosis to improve with dialysis c/w Renvela with meals Code(s): N18.6 - END STAGE RENAL DISEASE; Z99.2 - DEPENDENCE ON RENAL DIALYSIS (2) Prophylactic measure Assessment/Plan: FEN c/w renal diet and 1.2 fluid restriction monitor electrolytes after HD DVT ambulatory Dispo admit for onservation full code discharge to home with request for VNS Code(s): Z29.9 - ENCOUNTER FOR PROPHYLACTIC MEASURES, UNSPECIFIED (3) Uremia Assessment/Plan: HD to be done today Code(s): N19 - UNSPECIFIED KIDNEY FAILURE (4) Weakness Assessment/Plan: weakness r/t missing HD if not improve with also request for PT in home after discharge Code(s): R53.1 - WEAKNESS (5) Diarrhea Assessment/Plan: resolving Code(s): R19.7 - DIARRHEA, UNSPECIFIED (6) Hyperkalemia Assessment/Plan: HD scheduled monitor electrolytes Code(s): E87.5 - HYPERKALEMIA (7) Missed dialysis Assessment/Plan: resume schedule m/w/f spoke with SW pt has been given information in the past for [id number] to take her to HD appt instructed pt to discuss with HD SW on pt Code(s): [id number] - Visit type - Emergency Visit Emergency Visit: Yes ED Registration Date: 06/28/19 Care time: The patient presented to the Emergency Department on the above date and was hospitalized for further evaluation of their emergent condition. - New Patient This patient is new to me today: Yes Date on this admission: 06/28/19 - Critical Care Critical Care patient: No
[2019-06-28] MEDS ORDERED: ACETAMINOPHEN 325 MG TABLET (FP) PO PRN (12:29)
[2019-06-28] MEDS ORDERED: SODIUM CHLORIDE 250 ML IV PRN (12:40)
[2019-06-28] MEDS ORDERED: HEPARIN NA (PORCINE) 5,000 UNITS/ML 1ML VIAL IVPUSH ONE (12:40)
--- NOTE | 2019-06-28 12:48 | CONSULT ---
Consult - text type - Consultation Consultation Note: Renal consult for ESRD on HD This is a 83 year old woman with history of ESRD on HD (MWF), hypertension, DM, chronic diarrhea who presented from home with weakness after missing her last dialysis treatment and noted to have mild hyperkalemia and elevated BUN. Pt last had dialysis on Monday. Reports diarrhea. No abdominal pain, fever, chills, nausea or vomiting. She still makes urine. Denies any chest pain, shortness of breath. No leg swelling. PMHx: as above Allergies: as listed Family Hx: NC Social Hx: No T/A/D ROS: as per HPI, all other pertinent ros negative Home Medications Medication Instructions Recorded Alprazolam [Xanax] 0.25 mg PO BID PRN 02/19/19 Aspirin [ASA -] 81 mg PO DAILY 02/19/19 Atorvastatin Ca [Lipitor] 10 mg PO HS 02/19/19 Calcitriol [Calcitriol -] 0.25 mcg PO DAILY 02/19/19 Calcium Acetate 667 mg PO TID 02/19/19 Carvedilol [Coreg -] 6.25 mg PO BID 02/19/19 Acetaminophen [Tylenol .Regular 650 mg PO Q6H PRN tablet 04/19/19 Strength -] Ferrous Sulfate 325 mg PO BID 05/25/19 Losartan Potassium [Cozaar -] 50 mg PO DAILY #90 tablet 05/28/19 Nifedipine ER [Procardia XL -] 120 mg PO DAILY #180 tab.er.24 05/28/19 Amitriptyline HCl [Elavil -] 50 mg PO HS #30 tablet 06/07/19 Sevelamer Carbonate [Renvela -] 1,600 mg PO TIDCM tab 06/07/19 Vital Signs Temperature 97.7 F 06/28/19 09:20 Pulse Rate 87 06/28/19 09:20 Respiratory Rate 18 06/28/19 09:20 Blood Pressure 182/87 H 06/28/19 09:20 O2 Sat by Pulse Oximetry (%) 100 06/28/19 10:50 Intake & Output 06/25/19 06/26/19 06/27/19 06/28/19 23:59 23:59 23:59 23:59 Weight 52.163 kg NAD awake and alert neck supple RRR + murmur CTA soft NT/ND no LE edema, swelling or cyanosis right IJ tunneled HD catheter CBC, BMP 06/28/19 10:00 06/28/19 10:00 Current Medications Acetaminophen (Tylenol -) 650 mg PO Q6H PRN PRN Reason: FEVER Alprazolam (Xanax -) 0.25 mg PO BID PRN PRN Reason: ANXIETY Amitriptyline HCl (Elavil -) 50 mg PO HS [facility] Aspirin (Asa -) 81 mg PO DAILY [facility] Atorvastatin Calcium (Lipitor -) 10 mg PO HS [facility] Calcitriol (Rocaltrol -) 0.25 mcg PO DAILY [facility] Carvedilol (Coreg -) 6.25 mg PO BID [facility] Heparin Sodium (Porcine) (Heparin -) 5,000 unit SQ BID [facility] Heparin Sodium (Porcine) (Heparin -) 300 unit IVPUSH Q1H BEATRIZ Stop: 06/28/19 14:46 Heparin Sodium (Porcine) (Heparin -) 300 unit IVPUSH ONCE ONE Stop: 06/28/19 12:41 Sodium Chloride (Normal Saline -) 250 mls @ 3,000 mls/hr IV PRN PRN PRN Reason: Hypotension during Dialysis Stop: 06/29/19 12:40 Losartan Potassium (Cozaar -) 50 mg PO DAILY [facility] Nifedipine (Procardia Xl -) 120 mg PO DAILY [facility] Sevelamer Carbonate (Renvela -) 1,600 mg PO TIDCM [facility] 83 year old woman with history of ESRD on HD (MWF), hypertension, DM, chronic diarrhea who presented from home with weakness after missing her last dialysis treatment and noted to have mild hyperkalemia and elevated BUN. 1. ESRD on HD 2. Generalized weakness 3. Hyperkalemia 4. Metabolic acidosis 5. Hypertension 6. Renal Osteodystrophy Will arrange for dialysis today as an inpatient. Renal diet, 1.2L fluid restriction Expect hyperkalemia and acidosis to improve with dialysis She may benefit from VNS services at home Continue present antihypertensive medications continue Renvela with meals If symptoms resolved after dialysis can be discharged and have next dialysis Monday as an outpatient. Quentin Goyal DO
[2019-06-28] MEDS: ALPRAZolam 0.25 MG TABLET PO PRN ×2 (13:49→21:40)
--- NOTE | 2019-06-28 13:50 | EKG ---
Test Reason : Blood Pressure : / mmHG Vent. Rate : 083 BPM Atrial Rate : 083 BPM P-R Int : 168 ms QRS Dur : 090 ms QT Int : 404 ms P-R-T Axes : 033 033 066 degrees QTc Int : 474 ms NORMAL SINUS RHYTHM NONSPECIFIC T WAVE ABNORMALITY PROLONGED QT ABNORMAL ECG Confirmed by DELMY JACKSON MD ([id number]) on 06/28/2019 1:50:12 PM Referred By: Confirmed By:DELMY JACKSON MD
[2019-06-28 14:41] VITALS: BMI 21.3
[2019-06-28] MEDS: HEPARIN NA (PORCINE) 5,000 UNITS/ML 1ML VIAL IVPUSH SCH ×3 (15:00→17:00)
[2019-06-28] MEDS: SEVELAMER CARBONATE 800 MG TAB (FP) PO SCH (18:57)
[2019-06-28] MEDS: HEPARIN NA (PORCINE) 5,000 UNITS/ML 1ML VIAL SQ SCH (21:41)
[2019-06-28] MEDS: CARVEDILOL 6.25 MG TABLET (FP) PO SCH (21:42)
[2019-06-28] MEDS ORDERED: ATORVASTATIN CA 10 MG TABLET (FP) PO SCH (22:00)
[2019-06-28] MEDS ORDERED: AMITRIPTYLINE HCL 25 MG TABLET (FP) PO SCH (22:00)
[2019-06-29 07:47] VITALS: BP 154/79; PULSE 83; TEMP 97.8
[2019-06-29] MEDS: ALPRAZolam 0.25 MG TABLET PO PRN (07:48)
[2019-06-29] MEDS: SEVELAMER CARBONATE 800 MG TAB (FP) PO SCH ×2 (07:48→11:35)
[2019-06-29] MEDS ORDERED: PT OWN MED DRAWER 7, Y5N ONE ×2 (08:11→08:59)
[2019-06-29 08:23] LABS: BASO % 0.8 % (0-2.0); EOS % 4.7 % (0-4.5); HEMATOCRIT 37.7 % (32.4-45.2); HEMOGLOBIN 12.3 GM/dL (10.7-15.3); LYMPH % 19.7 % (8-40); MCH 30.5 pg (25.7-33.7); MCHC 32.6 g/dl (32.0-36.0); MEAN CELL VOLUME 93.4 fl (80-96); MEAN PLT VOLUME 7.7 fl (7.5-11.1); MONO % 9.4 % (3.8-10.2); NEUT % 65.4 % (42.8-82.8); PLATELET COUNT 268 K/MM3 (134-434); RBC 4.04 M/mm3 (3.60-5.2); RDW 16.8 % (11.6-15.6); WHITE BLOOD COUNT 5.2 K/mm3 (4.0-10.0)
--- NOTE | 2019-06-29 08:27 | DS ---
Physical Exam: SUBJECTIVE: Patient seen and examined This is a 83 year old woman with history of ESRD on HD (MWF), hypertension, DM, chronic diarrhea who presented from home with weakness after missing her last dialysis treatment and noted to have mild hyperkalemia and elevated BUN. Pt last had dialysis on Monday. Reports diarrhea. No abdominal pain, fever, chills, nausea or vomiting. She still makes urine. Denies any chest pain, shortness of breath. No leg swelling. OBJECTIVE: Vital Signs Period Temp Pulse Resp BP Sys/Banuelos Pulse Ox Last 24 Hr 97.7 F-98.6 F 80-101 17-20 143-195/66-95 89-100 PHYSICAL EXAM Constitutional: Yes: Well Nourished, No Distress, Calm Eyes: Yes: WNL, Conjunctiva Clear, EOM Intact HENT: Yes: WNL, Atraumatic, Normocephalic Neck: Yes: WNL, Supple, Trachea Midline Cardiovascular: Yes: WNL, Regular Rate and Rhythm Respiratory: Yes: WNL, Regular, CTA Bilaterally Gastrointestinal: Yes: WNL, Normal Bowel Sounds, Soft ...Rectal Exam: Yes: Deferred Renal/: Yes: WNL Musculoskeletal: Yes: WNL Extremities: Yes: Other (R AV fistula) Edema: No Peripheral Pulses WNL: Yes Integumentary: Yes: WNL Neurological: Yes: WNL, Alert, Oriented ...Motor Strength: WNL Psychiatric: Yes: WNL, Alert, Oriented LABS Laboratory Results - last 24 hr 06/28/19 06/28/19 06/28/19 10:00 10:00 10:00 WBC 6.8 RBC 4.30 Hgb 13.5 Hct 41.0 MCV 95.4 MCH 31.4 MCHC 32.9 RDW 16.6 H Plt Count 264 D MPV 7.7 Absolute Neuts (auto) 4.9 Neutrophils % 72.6 Lymphocytes % 15.7 D Monocytes % 6.6 Eosinophils % 4.1 Basophils % 1.0 Nucleated RBC % 0 Sodium 140 Potassium 5.2 H Chloride 109 H Carbon Dioxide 18 L Anion Gap 13 BUN 43.3 H Creatinine 7.5 H* Est GFR (CKD-EPI)AfAm 5.35 Est GFR (CKD-EPI)NonAf 4.62 Random Glucose 113 H Calcium 7.9 L Phosphorus 8.3 H Magnesium 2.4 Total Bilirubin 0.3 AST 19 ALT 20 Alkaline Phosphatase 91 Creatine Kinase 114 Troponin I < 0.02 Total Protein 8.2 Albumin 3.7 HOSPITAL COURSE: Date of Admission:06/28/19 Date of Discharge: 06/29/19 Problem List - Problems (1) ESRD on hemodialysis Assessment/Plan: missed HD on monday and again on mon. HS done yesterday with improvement of uremia hyperkalemia and acidosis improved Code(s): N18.6 - END STAGE RENAL DISEASE; Z99.2 - DEPENDENCE ON RENAL DIALYSIS (2) Prophylactic measure Assessment/Plan: FEN c/w renal diet and 1.2 fluid restriction DVT ambulatory Dispo discharge to home with request placed for VNS Code(s): Z29.9 - ENCOUNTER FOR PROPHYLACTIC MEASURES, UNSPECIFIED (3) Uremia Assessment/Plan: HD MWF Code(s): N19 - UNSPECIFIED KIDNEY FAILURE (4) Weakness Assessment/Plan: weakness r/t missing HD request for PT in home after discharge Code(s): R53.1 - WEAKNESS (5) Diarrhea Assessment/Plan: resolved Code(s): R19.7 - DIARRHEA, UNSPECIFIED (6) Hyperkalemia Assessment/Plan: HD MWF resolved Code(s): E87.5 - HYPERKALEMIA (7) Missed dialysis Assessment/Plan: resume schedule m/w/f spoke with SW pt has been given information in the past for [id number] to take her to HD appt instructed pt to discuss with HD SW on pt Code(s): [id number] - Medically cleared for discharge home with VNS services Minutes to complete discharge: 55 Discharge Summary Problems reviewed: Yes Reason For Visit: WEAKNESS HEMODIALYSIS Current Active Problems Chronic renal disease (Acute) ESRD on hemodialysis (Acute) Prophylactic measure (Acute) Uremia (Acute) Weakness (Acute) Hospital Course: HOSPITAL COURSE: Date of Admission:06/28/19 Date of Discharge: 06/29/19 Problem List - Problems (1) ESRD on hemodialysis Assessment/Plan: missed HD on monday and again on mon. HS done yesterday with improvement of uremia hyperkalemia and acidosis improved Code(s): N18.6 - END STAGE RENAL DISEASE; Z99.2 - DEPENDENCE ON RENAL DIALYSIS (2) Prophylactic measure Assessment/Plan: FEN c/w renal diet and 1.2 fluid restriction DVT ambulatory Dispo discharge to home with request placed for VNS Code(s): Z29.9 - ENCOUNTER FOR PROPHYLACTIC MEASURES, UNSPECIFIED (3) Uremia Assessment/Plan: HD MWF Code(s): N19 - UNSPECIFIED KIDNEY FAILURE (4) Weakness Assessment/Plan: weakness r/t missing HD request for PT in home after discharge Code(s): R53.1 - WEAKNESS (5) Diarrhea Assessment/Plan: resolved Code(s): R19.7 - DIARRHEA, UNSPECIFIED (6) Hyperkalemia Assessment/Plan: HD MWF resolved Code(s): E87.5 - HYPERKALEMIA (7) Missed dialysis Assessment/Plan: resume schedule m/w/f spoke with SW pt has been given information in the past for [id number] to take her to HD appt instructed pt to discuss with HD SW on pt Code(s): [id number] - Medically cleared for discharge home with VNS services Condition: Improved - Instructions Referrals: Angela Barahona [Primary Care Provider] - Disposition: VNS/HOME HEALTH CARE - Home Medications Comprehensive Discharge Medication List: Ambulatory Orders Alprazolam [Xanax] 0.25 mg PO BID PRN 02/19/19 Aspirin [ASA -] 81 mg PO DAILY 02/19/19 Atorvastatin Ca [Lipitor] 10 mg PO HS 02/19/19 Calcitriol [Calcitriol -] 0.25 mcg PO DAILY 02/19/19 Calcium Acetate 667 mg PO TID 02/19/19 Carvedilol [Coreg -] 6.25 mg PO BID 02/19/19 Acetaminophen [Tylenol .Regular Strength -] 650 mg PO Q6H PRN tablet 04/19/19 Ferrous Sulfate 325 mg PO BID 05/25/19 Losartan Potassium [Cozaar -] 50 mg PO DAILY #90 tablet 05/28/19 Nifedipine ER [Procardia XL -] 120 mg PO DAILY #180 tab.er.24 05/28/19 Amitriptyline HCl [Elavil -] 50 mg PO HS #30 tablet 06/07/19 Sevelamer Carbonate [Renvela -] 1,600 mg PO TIDCM tab 06/07/19 Prescription Drug Monitoring Program (I-STOP) results: I-STOP not reviewed Problem List - Problems (1) ESRD on hemodialysis Code(s): N18.6 - END STAGE RENAL DISEASE; Z99.2 - DEPENDENCE ON RENAL DIALYSIS (2) Prophylactic measure Code(s): Z29.9 - ENCOUNTER FOR PROPHYLACTIC MEASURES, UNSPECIFIED (3) Uremia Code(s): N19 - UNSPECIFIED KIDNEY FAILURE (4) Weakness Code(s): R53.1 - WEAKNESS (5) Diarrhea Code(s): R19.7 - DIARRHEA, UNSPECIFIED (6) Hyperkalemia Code(s): E87.5 - HYPERKALEMIA (7) Missed dialysis Code(s): [id number] - This patient is new to me today: No Emergency Visit: Yes ED Registration Date: 06/28/19 Care time: The patient presented to the Emergency Department on the above date and was hospitalized for further evaluation of their emergent condition. Critical Care patient: No - Discharge Referral Referred to [facility] Med P.C.: No
[2019-06-29 08:42] LABS: BILIRUBIN,TOTAL 0.3 mg/dL (0.2-1); BLOOD UREA NITROGEN 17.6 mg/dL (7-18); CALCIUM 7.6 mg/dL (8.5-10.1); CREATININE 4.1 mg/dL (0.55-1.3); MAGNESIUM 1.9 mg/dL (1.8-2.4); PHOSPHOROUS 4.7 mg/dL (2.5-4.9); POTASSIUM 4.2 mmol/L (3.5-5.1); TOT PROT 6.6 g/dl (6.4-8.2)
[2019-06-29] MEDS: HEPARIN NA (PORCINE) 5,000 UNITS/ML 1ML VIAL SQ SCH ×2 (09:10→09:12)
[2019-06-29] MEDS: CARVEDILOL 6.25 MG TABLET (FP) PO SCH (09:11)
[2019-06-29] MEDS ORDERED: CALCITRIOL 0.25 MCG CAPSULE (FP) PO SCH (10:00)
[2019-06-29] MEDS ORDERED: NIFEdipine E.R 60 MG TABLET (UD) PO SCH (10:00)
[2019-06-29] MEDS ORDERED: ASPIRIN 81 MG CHEWABLE TABLETS PO SCH (10:00)
[2019-06-29] MEDS ORDERED: LOSARTAN POTASSIUM 50 MG TABLET (FP) PO SCH (10:00)
== END 2019-06-29 14:56 | disposition home health service (06) ==
LOC: JER 09:08 → JERBED 11:00 → J6S 13:29
PROVIDERS: ADMIT Internal Medicine; ATTEND Nurse Practitioner Acute Care
PROC: 3E033GC Introduction of Other Therapeutic Substance into Peripheral Vein, Percutaneous Approach (ICD-10-PCS; principal; 2019-06-28)
PROC: 3E013GC Introduction of Other Therapeutic Substance into Subcutaneous Tissue, Percutaneous Approach (ICD-10-PCS; 2019-06-28)
DX: E11.22 Type 2 diabetes mellitus with diabetic chronic kidney disease (principal); I12.0 Hypertensive chronic kidney disease with stage 5 chronic kidney disease or end stage renal disease; N18.6 End stage renal disease; R53.1 Weakness; F17.210 Nicotine dependence, cigarettes, uncomplicated; Z99.2 Dependence on renal dialysis; Z29.8 Encounter for other specified prophylactic measures; R19.7 Diarrhea, unspecified; E87.5 Hyperkalemia; Z91.15 Patient's noncompliance with renal dialysis; E87.2 Acidosis; N25.0 Renal osteodystrophy; R79.89 Other specified abnormal findings of blood chemistry
CPT/HCPCS: 36415; 71045-TC-FY; 80053; 82550; 82962; 83735; 84100; 84484; 85025; 86803; 87340; 93005; 93010; 96372; 96374; 96376; 99285-25; G0378; J1644

== ENCOUNTER 2019-07-02 08:34 | Inpatient (IN) | payer OTHER ==
[2019-07-02 09:58] LABS: EOS % 4.8 % (0-4.5); HEMATOCRIT 41.6 % (32.4-45.2); HEMOGLOBIN 13.5 GM/dL (10.7-15.3); LYMPH % 17.7 % (8-40); MCH 30.7 pg (25.7-33.7); MCHC 32.3 g/dl (32.0-36.0); MEAN CELL VOLUME 94.8 fl (80-96); MEAN PLT VOLUME 8.3 fl (7.5-11.1); MONO % 7.6 % (3.8-10.2); NEUT % 68.9 % (42.8-82.8); PLATELET COUNT 332 K/MM3 (134-434); RBC 4.39 M/mm3 (3.60-5.2); RDW 16.7 % (11.6-15.6); WHITE BLOOD COUNT 6.7 K/mm3 (4.0-10.0)
[2019-07-02 10:43] LABS: ALBUMIN 3.6 g/dl (3.4-5.0); BILIRUBIN,TOTAL 0.3 mg/dL (0.2-1); BLOOD UREA NITROGEN 50.8 mg/dL (7-18); MAGNESIUM 2.2 mg/dL (1.8-2.4); PHOSPHOROUS 7.7 mg/dL (2.5-4.9); POTASSIUM 5.2 mmol/L (3.5-5.1); TOT PROT 7.8 g/dl (6.4-8.2)
[2019-07-02] MEDS ORDERED: SODIUM CHLORIDE 250 ML IV PRN (12:04)
--- NOTE | 2019-07-02 12:13 | HP ---
CHIEF COMPLAINT: falls, weakness PCP: Dr. Barahona HISTORY OF PRESENT ILLNESS: Patient is an 83 year old female with a significant past medical history of ESRD on HD (MWF), hypertension, femoral bypass, PAD, CAD, PVD, diabetes, chronic diarrhea, anemia, daily smoking (30 cigs per day) OA and anxiety. Patient presents to the ED today for generalized weakness, worsening fatigue and chronic diarrhea. Patient reports that she has missed her dialysis last week on Monday and Monday secondary to extreme fatigue at home so she received dialysis on 06/29/2019. She reports that she fell after attempting to go to the bathroom last night but denies any hitting head or LOC. She lives alone but was able to get up on her own after the fall. Patient denies any dizziness, lightheadedness or headache prior to her fall. She reports extreme fatigue and weakness and has trouble getting to dialysis because of this. She is not sure how long she can continue dialysis three times per week. She has no living family nor has any close friends. She uses [facility] for dialysis appointments. She denies any chest pain or shortness of breath. 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, femoral bypass Social History: Smokin cigarettes per day since age of 20 Alcohol: occasionally Drugs: none Allergies iodine Allergy (Verified 06/28/19 09:44) Rash penicillin V Allergy (Verified 06/28/19 09:44) shellfish derived Allergy (Verified 06/28/19 09:44) Rash vancomycin Allergy (Verified 06/28/19 09:44) azithromycin Adverse Reaction (Verified 06/28/19 09:44) diarrhea HOME MEDICATIONS: Home Medications Medication Instructions Recorded Alprazolam [Xanax] 0.25 mg PO BID PRN 02/19/19 Aspirin [ASA -] 81 mg PO DAILY 02/19/19 Atorvastatin Ca [Lipitor] 10 mg PO HS 02/19/19 Calcitriol [Calcitriol -] 0.25 mcg PO DAILY 02/19/19 Calcium Acetate 667 mg PO TID 02/19/19 Carvedilol [Coreg -] 6.25 mg PO BID 02/19/19 Acetaminophen [Tylenol .Regular 650 mg PO Q6H PRN tablet 04/19/19 Strength -] Ferrous Sulfate 325 mg PO BID 05/25/19 Losartan Potassium [Cozaar -] 50 mg PO DAILY #90 tablet 05/28/19 Nifedipine ER [Procardia XL -] 120 mg PO DAILY #180 tab.er.24 05/28/19 Amitriptyline HCl [Elavil -] 50 mg PO HS #30 tablet 06/07/19 Sevelamer Carbonate [Renvela -] 1,600 mg PO TIDCM tab 06/07/19 PHYSICAL EXAMINATION Vital Signs - 24 hr 07/02/19 08:42 Temperature 97.9 F Pulse Rate 87 Respiratory 18 Rate Blood Pressure 165/70 O2 Sat by Pulse 96 Oximetry (%) GENERAL: Awake, alert, and fully oriented, in no acute distress. HEAD: Normal with no signs of trauma. EYES: Pupils equal, round and reactive to light, extraocular movements intact, sclera anicteric, conjunctiva clear. No lid lag. EARS, NOSE, THROAT: Ears normal, nares patent, oropharynx clear without exudates. Moist mucous membranes. NECK: Normal range of motion, supple without lymphadenopathy, JVD, or masses. LUNGS: Breath sounds equal, clear to auscultation bilaterally. HEART: Regular rate and rhythm, normal S1 and S2 without murmur, rub or gallop. ABDOMEN: Soft, nontender, not distended, normoactive bowel sounds, no guarding, no rebound, no masses. No hepatomegaly or splenomegaly. MUSCULOSKELETAL: Normal range of motion at all joints. No bony deformities or tenderness. No CVA tenderness. UPPER EXTREMITIES: No peripheral edema. LOWER EXTREMITIES: No peripheral edema. NEUROLOGICAL: Normal speech. Normal gait. PSYCHIATRIC: Cooperative. Good eye contact. Appropriate mood and affect. SKIN: Warm, dry, normal turgor, no rashes or lesions noted, normal capillary refill. Laboratory Results - last 24 hr 07/02/19 07/02/19 07/02/19 09:39 09:39 09:39 WBC 6.7 RBC 4.39 Hgb 13.5 Hct 41.6 MCV 94.8 MCH 30.7 MCHC 32.3 RDW 16.7 H Plt Count 332 D MPV 8.3 Absolute Neuts (auto) 4.7 Neutrophils % 68.9 Lymphocytes % 17.7 Monocytes % 7.6 Eosinophils % 4.8 H Basophils % 1.0 Nucleated RBC % 0 Sodium 137 Potassium 5.2 H Chloride 108 H Carbon Dioxide 18 L Anion Gap 11 BUN 50.8 H Creatinine 8.0 H* Est GFR (CKD-EPI)AfAm 4.95 Est GFR (CKD-EPI)NonAf 4.27 Random Glucose 97 Calcium 9.0 Phosphorus 7.7 H Magnesium 2.2 Total Bilirubin 0.3 AST 16 ALT 18 Alkaline Phosphatase 84 Creatine Kinase 75 Troponin I 0.07 H Total Protein 7.8 Albumin 3.6 ASSESSMENT/PLAN: Family Medical History Family History: Unable to Obtain Problem List - Problem (1) Troponin I above reference range Assessment/Plan: trops 0.07, 0.06, will trend one more she is w/o chest pain, no shortness of breath monitor on tele on asa Code(s): R79.89 - OTHER SPECIFIED ABNORMAL FINDINGS OF BLOOD CHEMISTRY (2) ESRD (end stage renal disease) on dialysis Assessment/Plan: creat 8.0 on admission, in the setting of dialysis non compliance due to missing appointments. will ask SW to address. patient has paratransit but reports extreme fatigue and misses appt due to fatigue for dialysis today via right chest shiley monitor K, currently 5.2 monitor on tele renal following renal diet Code(s): N18.6 - END STAGE RENAL DISEASE; Z99.2 - DEPENDENCE ON RENAL DIALYSIS (3) Diabetes Assessment/Plan: not on any home meds [id number] in a.m. blood sugar not elevated here Code(s): E11.9 - TYPE 2 DIABETES MELLITUS WITHOUT COMPLICATIONS (4) Missed dialysis Assessment/Plan: patient reports non compliance due to increased fatigue and poor ambulatory status. for physical therapy evaluate for need for rehab on d/c Code(s): [id number] - (5) Uncontrolled hypertension Assessment/Plan: on procardia 120 and losartan 50 monitor bp Code(s): I10 - ESSENTIAL (PRIMARY) HYPERTENSION (6) Weakness Assessment/Plan: physical therapy ordered may need rehab for falls and weakness at home Code(s): R53.1 - WEAKNESS (7) Fall Code(s): W19.XXXA - UNSPECIFIED FALL, INITIAL ENCOUNTER (8) Prophylactic measure Assessment/Plan: fen tolerating po monitor electrolytes renal diet full code heparin bid Code(s): Z29.9 - ENCOUNTER FOR PROPHYLACTIC MEASURES, UNSPECIFIED Visit type - Emergency Visit Emergency Visit: Yes ED Registration Date: 07/02/19 Care time: The patient presented to the Emergency Department on the above date and was hospitalized for further evaluation of their emergent condition. - New Patient This patient is new to me today: Yes Date on this admission: 07/02/19 - Critical Care Critical Care patient: No
--- NOTE | 2019-07-02 15:58 | CONSULT ---
Consult - text type - Consultation Consultation Note: Renal consult for ESRD on HD This is a 83 year old woman with history of ESRD on HD, hypertension, DM, chronic diarreha who presented from home with generalized weakness and fall w/o LOC. Pt last had dialysis on Monday, regular schedule is MWF. Denies any sob, cp, fever, chills, N/V/D. No confusion or lethargy. Requesting NH placement as she feels like she cannot take care of herself at home any more. PMHx: as above Allergies: as listed in EMR Family hx: [place] Social Hx: + tobacco, no ETOH/Drugs ROS: as per HPI, all other pertinent ros negative Home Medications Medication Instructions Recorded Alprazolam [Xanax] 0.25 mg PO BID PRN 02/19/19 Aspirin [ASA -] 81 mg PO DAILY 02/19/19 Atorvastatin Ca [Lipitor] 10 mg PO HS 02/19/19 Calcitriol [Calcitriol -] 0.25 mcg PO DAILY 02/19/19 Calcium Acetate 667 mg PO TID 02/19/19 Carvedilol [Coreg -] 6.25 mg PO BID 02/19/19 Acetaminophen [Tylenol .Regular 650 mg PO Q6H PRN tablet 04/19/19 Strength -] Ferrous Sulfate 325 mg PO BID 05/25/19 Losartan Potassium [Cozaar -] 50 mg PO DAILY #90 tablet 05/28/19 Nifedipine ER [Procardia XL -] 120 mg PO DAILY #180 tab.er.24 05/28/19 Amitriptyline HCl [Elavil -] 50 mg PO HS #30 tablet 06/07/19 Sevelamer Carbonate [Renvela -] 1,600 mg PO TIDCM tab 06/07/19 Vital Signs Temperature 97.9 F 07/02/19 08:42 Pulse Rate 82 07/02/19 14:00 Respiratory Rate 20 07/02/19 14:00 Blood Pressure 156/75 07/02/19 14:00 O2 Sat by Pulse Oximetry (%) 97 07/02/19 14:00 Intake & Output 06/29/19 06/30/19 07/01/19 07/02/19 23:59 23:59 23:59 23:59 Weight 50.802 kg NAD awake and alert neck supple RRR CTA soft NT/ND no LE edema Right IJ tunneled catheter CBC, BMP 07/02/19 09:39 07/02/19 09:39 Current Medications Alprazolam (Xanax -) 0.25 mg PO HS [facility] Alprazolam (Xanax -) 0.25 mg PO Q12H PRN PRN Reason: ANXIETY Amitriptyline HCl (Elavil -) 25 mg PO BID [facility] Aspirin (Asa -) 81 mg PO DAILY [facility] Atorvastatin Calcium (Lipitor -) 10 mg PO HS [facility] Calcitriol (Rocaltrol -) 0.25 mcg PO DAILY [facility] Carvedilol (Coreg -) 6.25 mg PO BID [facility] Ferrous Sulfate (Feosol -) 325 mg PO BID [facility] Sodium Chloride (Normal Saline -) 250 mls @ 3,000 mls/hr IV PRN PRN PRN Reason: Hypotension during Dialysis Stop: 07/03/19 12:04 Losartan Potassium (Cozaar -) 50 mg PO DAILY [facility] Nifedipine (Procardia Xl -) 120 mg PO DAILY [facility] Sevelamer Carbonate (Renvela -) 1,600 mg PO TIDCM [facility] 83 year old woman with history of ESRD on HD, hypertension, DM, chronic diarreha who presented from home with generalized weakness and fall w/o LOC. 1. Falls 2. Generalized weakness 3. ESRD on HD 4. Hypertension 5. Hyperkalemai 6. Metabolic acidosis Will plan for dialysis this evening or tomorrow morning pending dialysis nurse availability Will continue HD 3x weekly while admitted continue remaider of fall work up as per primary physical therapy eval continue present antihypertensive meds Renal diet Thank you Quentin Goyal DO
[2019-07-02] MEDS: NIFEdipine E.R 60 MG TABLET (UD) PO SCH (18:00)
[2019-07-02] MEDS: LOSARTAN POTASSIUM 50 MG TABLET (FP) PO SCH (18:01)
[2019-07-02] MEDS: SEVELAMER CARBONATE 800 MG TAB (FP) PO SCH (18:01)
[2019-07-02] MEDS: CARVEDILOL 6.25 MG TABLET (FP) PO SCH (21:33)
[2019-07-02] MEDS: AMITRIPTYLINE HCL 25 MG TABLET (FP) PO SCH (21:33)
[2019-07-02] MEDS: ALPRAZolam 0.25 MG TABLET PO SCH (21:33)
[2019-07-02] MEDS: ATORVASTATIN CA 10 MG TABLET (FP) PO SCH (21:33)
[2019-07-02] MEDS: FERROUS SO4 325 MG TABLET (FP) PO SCH (21:33)
[2019-07-02] MEDS ORDERED: AMITRIPTYLINE HCL 25 MG TABLET (FP) PO SCH (22:00)
[2019-07-02] MEDS ORDERED: PATIENT'S OWN MEDICATION (NON-FORMULARY) (Ferrous Sulfate [Ferrous Sulfate] 325 MG) PO SCH (22:00)
[2019-07-03] MEDS: AMITRIPTYLINE HCL 25 MG TABLET (FP) PO SCH ×3 (00:31→21:08)
[2019-07-03 07:05] LABS: BASO % 1.2 % (0-2.0); EOS % 5.7 % (0-4.5); HEMATOCRIT 36.3 % (32.4-45.2); HEMOGLOBIN 11.9 GM/dL (10.7-15.3); LYMPH % 22.4 % (8-40); MCH 30.7 pg (25.7-33.7); MCHC 32.7 g/dl (32.0-36.0); MEAN CELL VOLUME 93.8 fl (80-96); MEAN PLT VOLUME 8.1 fl (7.5-11.1); MONO % 8.2 % (3.8-10.2); NEUT % 62.5 % (42.8-82.8); PLATELET COUNT 313 K/MM3 (134-434); RBC 3.87 M/mm3 (3.60-5.2); RDW 16.8 % (11.6-15.6); WHITE BLOOD COUNT 6.5 K/mm3 (4.0-10.0)
[2019-07-03 07:47] LABS: MAGNESIUM 2.1 mg/dL (1.8-2.4)
[2019-07-03] MEDS: SEVELAMER CARBONATE 800 MG TAB (FP) PO SCH ×3 (08:56→17:57)
[2019-07-03] MEDS: ASPIRIN 81 MG CHEWABLE TABLETS PO SCH (09:26)
[2019-07-03] MEDS: FERROUS SO4 325 MG TABLET (FP) PO SCH ×2 (09:26→21:08)
[2019-07-03] MEDS: ALPRAZolam 0.25 MG TABLET PO PRN ×2 (09:26→19:44)
[2019-07-03] MEDS: CALCITRIOL 0.25 MCG CAPSULE (FP) PO SCH (09:27)
--- NOTE | 2019-07-03 10:50 | PN ---
Physical Exam: SUBJECTIVE: Patient seen and examined at the bedside. getting dialysis now. OBJECTIVE: patient informed me that she "is done with dialysis" and wants to go to a facility to . she states she does not feel she has any quality of life and getting dialysis 3 times per week is too much for her. she is seeking to go to [facility] and stop dialysis. she is aware that if she stops dialysis she will and she accepts the outcome. Patient is an 83 year old female with a significant past medical history of ESRD on HD (MWF), hypertension, femoral bypass, PAD, CAD, PVD, diabetes, chronic diarrhea, anemia, daily smoking (30 cigs per day) OA and anxiety. Patient presents to the ED today for generalized weakness, worsening fatigue and chronic diarrhea. Patient reports that she has missed her dialysis last week on Monday and Monday secondary to extreme fatigue at home so she received dialysis on 06/29/2019. She reports that she fell after attempting to go to the bathroom when at home prior to admission. denies any hitting head or LOC. She lives alone but was able to get up on her own after the fall. Patient denies any dizziness, lightheadedness or headache prior to her fall. trop 0.07>0.06 Period Temp Pulse Resp BP Sys/Banuelos Pulse Ox Last 24 Hr 98.0 F-98.2 F 76-86 18-20 147-196/57-96 95-99 GENERAL: Awake, alert, and fully oriented, tearful HEAD: Normal with no signs of trauma. EYES: Pupils equal, round and reactive to light, extraocular movements intact, sclera anicteric, conjunctiva clear. No lid lag. EARS, NOSE, THROAT: Ears normal, nares patent, oropharynx clear without exudates. Moist mucous membranes. NECK: Normal range of motion, supple without lymphadenopathy, JVD, or masses. HEART: Regular rate and rhythm ABDOMEN: Soft, nontender, not distended, normoactive bowel sounds, no guarding, no rebound, no masses. No hepatomegaly or splenomegaly. MUSCULOSKELETAL: Normal range of motion at all joints. No bony deformities or tenderness. No CVA tenderness. UPPER EXTREMITIES: No peripheral edema. LOWER EXTREMITIES: No peripheral edema. NEUROLOGICAL: Normal speech. ambulates with RW PSYCHIATRIC: tearful SKIN: Warm, dry, normal turgor, no rashes or lesions noted, normal capillary refill. Laboratory Results - last 24 hr 07/02/19 07/02/19 07/02/19 09:39 14:30 18:44 WBC RBC Hgb Hct MCV MCH MCHC RDW Plt Count MPV Absolute Neuts (auto) Neutrophils % Lymphocytes % Monocytes % Eosinophils % Basophils % Nucleated RBC % Sodium 137 Potassium 5.2 H Chloride 108 H Carbon Dioxide 18 L Anion Gap 11 BUN 50.8 H Creatinine 8.0 H* Est GFR (CKD-EPI)AfAm 4.95 Est GFR (CKD-EPI)NonAf 4.27 POC Glucometer 61 Random Glucose 97 Hemoglobin A1c % Calcium 9.0 Phosphorus 7.7 H Magnesium 2.2 Total Bilirubin 0.3 AST 16 ALT 18 Alkaline Phosphatase 84 Troponin I 0.06 H Total Protein 7.8 Albumin 3.6 Triglycerides Cholesterol Total LDL Cholesterol HDL Cholesterol TSH Thyroxine (T4) 8.3 07/02/19 07/02/19 07/03/19 21:23 23:45 05:45 WBC 6.5 RBC 3.87 Hgb 11.9 Hct 36.3 MCV 93.8 MCH 30.7 MCHC 32.7 RDW 16.8 H Plt Count 313 MPV 8.1 Absolute Neuts (auto) 4.0 Neutrophils % 62.5 Lymphocytes % 22.4 D Monocytes % 8.2 Eosinophils % 5.7 H Basophils % 1.2 Nucleated RBC % 0 Sodium Potassium Chloride Carbon Dioxide Anion Gap BUN Creatinine Est GFR (CKD-EPI)AfAm Est GFR (CKD-EPI)NonAf POC Glucometer 136 Random Glucose Hemoglobin A1c % Calcium Phosphorus Magnesium Total Bilirubin AST ALT Alkaline Phosphatase Troponin I 0.04 Total Protein Albumin Triglycerides Cholesterol Total LDL Cholesterol HDL Cholesterol TSH Thyroxine (T4) 07/03/19 07/03/19 07/03/19 05:45 05:45 05:56 WBC RBC Hgb Hct MCV MCH MCHC RDW Plt Count MPV Absolute Neuts (auto) Neutrophils % Lymphocytes % Monocytes % Eosinophils % Basophils % Nucleated RBC % Sodium Potassium Chloride Carbon Dioxide Anion Gap BUN Creatinine Est GFR (CKD-EPI)AfAm Est GFR (CKD-EPI)NonAf POC Glucometer 112 Random Glucose Hemoglobin A1c % 5.5 Calcium Phosphorus Magnesium 2.1 Total Bilirubin AST ALT Alkaline Phosphatase Troponin I Total Protein Albumin Triglycerides 151 H Cholesterol 132 Total LDL Cholesterol 48 HDL Cholesterol 63 H TSH 2.87 Thyroxine (T4) Active Medications Generic Name Dose Route Start Last Admin Trade Name Freq PRN Reason Stop Dose Admin Alprazolam 0.25 mg 07/02/19 22:00 07/02/19 21:33 Xanax - PO 0.25 mg HS BEATRIZ Administration Alprazolam 0.25 mg 07/02/19 14:42 07/03/19 09:26 Xanax - PO 0.25 mg Q12H PRN Administration ANXIETY Amitriptyline HCl 25 mg 07/02/19 20:00 07/03/19 09:26 Elavil - PO 25 mg BID [facility] Administration Aspirin 81 mg 07/03/19 10:00 07/03/19 09:26 Asa - PO 81 mg DAILY [facility] Administration Atorvastatin Calcium 10 mg 07/02/19 22:00 07/02/19 21:33 Lipitor - PO 10 mg HS [facility]Z Administration Calcitriol 0.25 mcg 07/03/19 10:00 07/03/19 09:27 Rocaltrol - PO 0.25 mcg DAILY [facility] Administration Carvedilol 6.25 mg 07/02/19 22:00 07/02/19 21:33 Coreg - PO 6.25 mg BID [facility] Administration Ferrous Sulfate 325 mg 07/02/19 22:00 07/03/19 09:26 Feosol - PO 325 mg BID [facility] Administration Sodium Chloride 250 mls @ 3,000 mls/hr 07/02/19 12:04 Normal Saline - IV 07/03/19 12:04 PRN PRN Hypotension during Dialysis Losartan Potassium 50 mg 07/02/19 14:45 07/02/19 18:01 Cozaar - PO 50 mg DAILY [facility] Administration Nifedipine 120 mg 07/02/19 14:45 07/02/19 18:00 Procardia Xl - PO 120 mg DAILY [facility] Administration Sevelamer Carbonate 1,600 mg 07/02/19 17:30 07/03/19 08:56 Renvela - PO 1,600 mg TIDCM [facility] Administration ASSESSMENT/PLAN: Problem List - Problems (1) Troponin I above reference range Assessment/Plan: trops 0.07, 0.06, 0.02 she is w/o chest pain, no shortness of breath monitor on tele on [facility] cardiology consulted Code(s): R79.89 - OTHER SPECIFIED ABNORMAL FINDINGS OF BLOOD CHEMISTRY (2) ESRD (end stage renal disease) on dialysis Assessment/Plan: creat 8.0 on admission, in the setting of dialysis non compliance due to missing appointments. will ask SW to address. patient has paratransit but reports extreme fatigue and misses appt due to fatigue and now expressing to me desires to stop dialysis all together for dialysis today via right chest shiley monitor K monitor on tele renal following renal diet Code(s): N18.6 - END STAGE RENAL DISEASE; Z99.2 - DEPENDENCE ON RENAL DIALYSIS (3) Diabetes Assessment/Plan: not on any home meds hmga1c in a.m. blood sugar not elevated here Code(s): E11.9 - TYPE 2 DIABETES MELLITUS WITHOUT COMPLICATIONS Qualifiers: Diabetes mellitus type: type 2 Diabetes mellitus [facility] insulin use: with [facility] use Diabetes mellitus complication detail: with chronic kidney disease Chronic kidney disease stage: on chronic dialysis (4) Missed dialysis Assessment/Plan: patient reports non compliance due to increased fatigue and poor ambulatory status. for physical therapy evaluate for need for rehab on d/c Code(s): KEB8273 - (5) Uncontrolled hypertension Assessment/Plan: on procardia 120 and losartan 50 monitor bp Code(s): I10 - ESSENTIAL (PRIMARY) HYPERTENSION (6) Weakness Assessment/Plan: physical therapy ordered may need rehab for falls and weakness at home Code(s): R53.1 - WEAKNESS (7) Fall Code(s): W19.XXXA - UNSPECIFIED FALL, INITIAL ENCOUNTER (8) Prophylactic measure Assessment/Plan: fen tolerating po monitor electrolytes renal diet full code heparin bid Code(s): Z29.9 - ENCOUNTER FOR PROPHYLACTIC MEASURES, UNSPECIFIED Visit type - Emergency Visit Emergency Visit: Yes ED Registration Date: 07/02/19 Care time: The patient presented to the Emergency Department on the above date and was hospitalized for further evaluation of their emergent condition. - New Patient This patient is new to me today: No - Critical Care Critical Care patient: No - Discharge Referral Referred to [facility] No
[2019-07-03 11:24] LABS: ALBUMIN 3.1 g/dl (3.4-5.0); BILIRUBIN,TOTAL 0.2 mg/dL (0.2-1); MAGNESIUM 2.1 mg/dL (1.8-2.4); POTASSIUM 5.1 mmol/L (3.5-5.1); TOT PROT 6.6 g/dl (6.4-8.2)
[2019-07-03 11:30] LABS: CREATININE 8.9 mg/dL (0.55-1.3)
--- NOTE | 2019-07-03 12:22 | EKG ---
Test Reason : Blood Pressure : / mmHG Vent. Rate : 085 BPM Atrial Rate : 085 BPM P-R Int : 138 ms QRS Dur : 094 ms QT Int : 410 ms P-R-T Axes : 012 043 075 degrees QTc Int : 487 ms NORMAL SINUS RHYTHM NONSPECIFIC T WAVE ABNORMALITY PROLONGED QT ABNORMAL ECG WHEN COMPARED WITH ECG OF 28-JUN-2019 09:59, NO SIGNIFICANT CHANGE WAS FOUND Confirmed by ANUP DC, JERRY ([id number]) on 07/03/2019 12:21:38 PM Referred By: Confirmed By:JERRY HEBERT MD
[2019-07-03 12:56] VITALS: BMI 22.4
--- NOTE | 2019-07-03 13:00 | PN ---
Progress Note (short form) - Note Progress Note: Renal follow up for ESRD on HD Seen and examined at the bedside awake and alert no acute complaints currently on dialysis BP elevated, UF goal 2L catheter with good flow Vital Signs Temperature 97.8 F 07/03/19 10:00 Pulse Rate 90 07/03/19 11:45 Respiratory Rate 18 07/03/19 11:45 Blood Pressure 160/84 07/03/19 11:45 O2 Sat by Pulse Oximetry (%) 97 07/02/19 21:00 Intake & Output 06/30/19 07/01/19 07/02/19 07/03/19 23:59 23:59 23:59 23:59 Intake Total 240 800 Output Total 400 Balance -160 800 Weight 50.802 kg 55.792 kg NAD RRR CTA soft NT/ND no LE edema Right IJ tunneled catheter CBC, BMP 07/03/19 05:45 07/03/19 09:45 Current Medications Alprazolam (Xanax -) 0.25 mg PO HS [facility] Last Admin: 07/02/19 21:33 Dose: 0.25 mg Alprazolam (Xanax -) 0.25 mg PO Q12H PRN PRN Reason: ANXIETY Last Admin: 07/03/19 09:26 Dose: 0.25 mg Amitriptyline HCl (Elavil -) 25 mg PO BID [facility] Last Admin: 07/03/19 09:26 Dose: 25 mg Aspirin (Asa -) 81 mg PO DAILY [facility] Last Admin: 07/03/19 09:26 Dose: 81 mg Atorvastatin Calcium (Lipitor -) 10 mg PO HS [facility] Last Admin: 07/02/19 21:33 Dose: 10 mg Calcitriol (Rocaltrol -) 0.25 mcg PO DAILY [facility] Last Admin: 07/03/19 09:27 Dose: 0.25 mcg Carvedilol (Coreg -) 6.25 mg PO BID [facility] Last Admin: 07/02/19 21:33 Dose: 6.25 mg Cholestyramine Resin (Questran Light Packet -) 4 gm PO BID [facility] Ferrous Sulfate (Feosol -) 325 mg PO BID [facility] Last Admin: 07/03/19 09:26 Dose: 325 mg Losartan Potassium (Cozaar -) 50 mg PO DAILY [facility] Last Admin: 07/02/19 18:01 Dose: 50 mg Nifedipine (Procardia Xl -) 120 mg PO DAILY [facility] Last Admin: 07/02/19 18:00 Dose: 120 mg Sevelamer Carbonate (Renvela -) 1,600 mg PO TIDCM [facility] Last Admin: 07/03/19 12:45 Dose: Not Given 83 year old woman with history of ESRD on HD, hypertension, DM, chronic diarreha who presented from home with generalized weakness and fall w/o LOC. 1. Falls 2. Generalized weakness 3. ESRD on HD 4. Hypertension 5. Hyperkalemai 6. Metabolic acidosis Tolerating dialysis well this am. UF as tolerated Palliative care team to discuss options such as dialysis discontination with patient as she expressed a desire to do so with the primary team Would consider a psych evaluation for depression Physical therapy evaluation Continue present antihypertensives post dialysis next planned dialysis is Monday Thank you Quentin Goyal DO
[2019-07-03] MEDS: LOSARTAN POTASSIUM 50 MG TABLET (FP) PO SCH (13:14)
[2019-07-03] MEDS: NIFEdipine E.R 60 MG TABLET (UD) PO SCH (13:14)
[2019-07-03] MEDS: CHOLESTYRAMINE/ASPARTAME 4 GM PACKET PO SCH ×2 (13:14→21:08)
[2019-07-03] MEDS: CARVEDILOL 6.25 MG TABLET (FP) PO SCH ×2 (13:15→21:08)
--- NOTE | 2019-07-03 15:29 | CON.CARD ---
Consult Consult Specialty:: Cardiology Referred by:: Hospitalist Medicine - History of Present Illness Chief Complaint: Weak, fatigue History of Present Illness: Patient is an 83 year old female with underlying history of ESRD (diabetic nephropathy) on HD MWF, HTN, DM, PAD s/p fem pop bypass and toe amputation, CAD who presents with generalized weakness and fall w/o LOC. She denies chest pain, SOB or palpitations. She denies paroxysmal nocturnal dyspnea or orthopnea. She denies fever or chills. She denies nausea, vomiting, diarrhea or abdominal pain. Requesting NH placement as she feels like she cannot take care of herself at home any more, ambulates with walker assistance. - History Source History Provided By: Patient Limitations to Obtaining History: No Limitations - Past Medical History Cardio/Vascular: Yes: HTN, Hyperlipdemia, Murmur, Other (PAD) Pulmonary: Yes: Asthma, COPD Hepatobiliary: Yes: Cholelithiasis, Choledocholithiasis Renal/: Yes: Renal Inusuff, Hemodialysis ...: No Infectious Disease: Yes: Other (history of osteomyelitis in the past) Endocrine: Yes: Diabetes Mellitus - Past Surgical History Past Surgical History: Yes: Amputation (1-st R toe amputation), Bypass (Right fem pop bypass) - Alcohol/Substance Use Hx Alcohol Use: No History of Substance Use: reports: None - Smoking History Smoking history: Current every day smoker Have you smoked in the past 12 months: Yes Aproximately how many cigarettes per day: 30 If you are a former smoker, when did you quit?: 08/10/2012 - Social History Usual Living Arrangement: Alone ADL: Independent 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, 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, 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 Travel: No Home Medications - Allergies Allergies/Adverse Reactions: Allergies Allergy/AdvReac Type Severity Reaction Status Date / Time iodine Allergy Rash Verified 06/28/19 09:44 penicillin V Allergy Verified 06/28/19 09:44 shellfish derived Allergy Rash Verified 06/28/19 09:44 vancomycin Allergy Verified 06/28/19 09:44 azithromycin AdvReac Verified 06/28/19 09:44 - Home Medications Home Medications: Ambulatory Orders Alprazolam [Xanax] 0.25 mg PO BID PRN 02/19/19 Aspirin [ASA -] 81 mg PO DAILY 02/19/19 Atorvastatin Ca [Lipitor] 10 mg PO HS 02/19/19 Calcitriol [Calcitriol -] 0.25 mcg PO DAILY 02/19/19 Calcium Acetate 667 mg PO TID 02/19/19 Carvedilol [Coreg -] 6.25 mg PO BID 02/19/19 Acetaminophen [Tylenol .Regular Strength -] 650 mg PO Q6H PRN tablet 04/19/19 Ferrous Sulfate 325 mg PO BID 05/25/19 Losartan Potassium [Cozaar -] 50 mg PO DAILY #90 tablet 05/28/19 Nifedipine ER [Procardia XL -] 120 mg PO DAILY #180 tab.er.24 05/28/19 Amitriptyline HCl [Elavil -] 50 mg PO HS #30 tablet 06/07/19 Sevelamer Carbonate [Renvela -] 1,600 mg PO TIDCM tab 06/07/19 Review of Systems - Review of Systems Constitutional: reports: Lethargy, Weakness Vital Signs: Vital Signs Temperature 97.8 F 07/03/19 14:00 Pulse Rate 96 H 07/03/19 14:00 Respiratory Rate 16 07/03/19 14:00 Blood Pressure 177/98 H 07/03/19 14:00 O2 Sat by Pulse Oximetry (%) 97 07/03/19 09:00 Constitutional: Yes: No Distress, Calm, Thin Neck: Yes: Supple Respiratory: Yes: Regular, CTA Bilaterally Gastrointestinal: Yes: Normal Bowel Sounds, Soft Cardiovascular: Yes: Regular Rate and Rhythm JVD: No Carotid Bruit: No Heart Sounds: Yes: S1, S2 Edema: No - Other Data Labs, Other Data: CBC, BMP 07/03/19 05:45 07/03/19 09:45 Troponin, BNP 07/02/19 23:45 Troponin I 0.04 Troponin, BNP 07/02/19 23:45 Troponin I 0.04 NSR @ 85 Ejection Fraction %: LVEF > or = 40 % Imaging - Results Chest X-ray: Report Reviewed (NAD) Problem List - Problems (1) Diabetes Code(s): E11.9 - TYPE 2 DIABETES MELLITUS WITHOUT COMPLICATIONS Qualifiers: Diabetes mellitus type: type 2 Diabetes mellitus jail insulin use: with jail use Diabetes mellitus complication detail: with chronic kidney disease Chronic kidney disease stage: on chronic dialysis (2) ESRD (end stage renal disease) on dialysis Code(s): N18.6 - END STAGE RENAL DISEASE; Z99.2 - DEPENDENCE ON RENAL DIALYSIS (3) CAD (coronary artery disease) Code(s): I25.10 - ATHSCL HEART DISEASE OF [place] CORONARY ARTERY W/O ANG PCTRS Qualifiers: Coronary Disease-Associated Artery/Lesion type: [place] artery [place] vs. transplanted heart: [place] heart Associated angina: without angina Qualified Code(s): I25.10 - Atherosclerotic heart disease of [place] coronary artery without angina pectoris (4) ESRD (end stage renal disease) on dialysis Code(s): N18.6 - END STAGE RENAL DISEASE; Z99.2 - DEPENDENCE ON RENAL DIALYSIS (5) HTN (hypertension) Code(s): I10 - ESSENTIAL (PRIMARY) HYPERTENSION Qualifiers: Hypertension type: unspecified Qualified Code(s): I10 - Essential (primary ) hypertension (6) Hemodialysis patient Code(s): Z99.2 - DEPENDENCE ON RENAL DIALYSIS (7) Hyperlipidemia associated with type 2 diabetes mellitus Code(s): E11.69 - TYPE 2 DIABETES MELLITUS WITH OTHER SPECIFIED COMPLICATION; E78.5 - HYPERLIPIDEMIA, UNSPECIFIED (8) Hypertensive heart disease Code(s): I11.9 - HYPERTENSIVE HEART DISEASE WITHOUT HEART FAILURE Qualifiers: (9) Insulin dependent diabetes mellitus Code(s): E11.9 - TYPE 2 DIABETES MELLITUS WITHOUT COMPLICATIONS; Z79.4 - DETENTION (CURRENT) USE OF INSULIN (10) PAD (peripheral artery disease) Code(s): I73.9 - PERIPHERAL VASCULAR DISEASE, UNSPECIFIED (11) S/P femoropopliteal bypass surgery Code(s): Z95.828 - PRESENCE OF OTHER VASCULAR IMPLANTS AND GRAFTS (12) Uncontrolled hypertension Code(s): I10 - ESSENTIAL (PRIMARY) HYPERTENSION Assessment/Plan 1. Generalized weakness, falls, failure to thrive 2. Hypertensive urgency in a patient with known history of hypertensive cardiovascular disease, since resolved 3. End-stage renal disease on hemodialysis, dialysis noncompliance 4. CAD with history of subendocardial ishemia/demand ischemic injury angina pectoris, clinically stable 5. Diastolic LV dysfunction with clinical class 0 NYHA classification LV failure 6. DM 7. Hypercholesterolemia 8. History of PAD post right fem-pop bypass 9. COPD 10. Anemia 11. Post toe amputation for osteomyelitis PLAN: 1. Continue Coreg 6.25 bid 2. Continue Procardia XL 120 qd 3. Continue Cozaar 50 qd 4. Continue ASA 81 qd 5. Continue Lipitor 10 qhs 6. Hemodialysis as per renal service, and emphasized importance of compliance 7. Palliative care team to discuss options such as dialysis discontination with patient as she expressed a desire to do so with the primary team 8. Thank you for consultative opportunity, PT as tolerated
[2019-07-03] MEDS: ALPRAZolam 0.25 MG TABLET PO SCH (21:08)
[2019-07-03] MEDS: NYSTATIN 100000 UNIT/GM TOPICAL OINTMENT 15 GM TUBE TP SCH (21:08)
[2019-07-03] MEDS: ATORVASTATIN CA 10 MG TABLET (FP) PO SCH (21:08)
[2019-07-04 08:01] LABS: BLOOD UREA NITROGEN 23.8 mg/dL (7-18); CALCIUM 8.1 mg/dL (8.5-10.1); CREATININE 4.9 mg/dL (0.55-1.3)
[2019-07-04] MEDS: SEVELAMER CARBONATE 800 MG TAB (FP) PO SCH ×3 (08:33→16:33)
[2019-07-04] MEDS: ALPRAZolam 0.25 MG TABLET PO PRN (08:33)
--- NOTE | 2019-07-04 08:58 | PDOC ---
Documentation entered by Pauline Reis SCRIBE, acting as scribe for Austin Garza MD. Austin Garza MD: This documentation has been prepared by the [employer], SCRIBE, under my direction and personally reviewed by me in its entirety. I confirm that the documentation accurately reflects all work, treatment, procedures, and medical decision making performed by me. History of Present Illness - General Chief Complaint: Weakness Stated Complaint: WEAKNESS Time Seen by Provider: 07/02/19 08:46 History Source: Patient Exam Limitations: No Limitations - History of Present Illness Initial Comments: 07/02/19 09:46 The patient is an 83 year old female, with a significant past medical history of HTN, ESRD on HD (M,W,F), DM (no longer on any medication), PVD, anemia, smoking, OA, anxiety presenting to the ED BIBA for generalized weakness and chronic diarrhea. Patient notes she has not gotten her dialysis since Monday ( missed her dialysis M/W so she received dialysis on 06/29/19). Pt reports, last night she was going to the bathroom using her walker and fell. Patient denies hitting head or LOC. Pt notes she was able to get up after the fall. Patient denies any dizziness, lightheadedness or headache prior to her fall. Allergies: Iodine, penicillin V, shellfish derived, vancomycin, azithromycin PCP: Dr. Angela Barahona Renal: Dr. Goyal Past History - Past Medical History Allergies/Adverse Reactions: Allergies Allergy/AdvReac Type Severity Reaction Status Date / Time iodine Allergy Rash Verified 06/28/19 09:44 penicillin V Allergy Verified 06/28/19 09:44 shellfish derived Allergy Rash Verified 06/28/19 09:44 vancomycin Allergy Verified 06/28/19 09:44 azithromycin AdvReac Verified 06/28/19 09:44 Home Medications: Ambulatory Orders Alprazolam [Xanax] 0.25 mg PO BID PRN 02/19/19 Aspirin [ASA -] 81 mg PO DAILY 02/19/19 Atorvastatin Ca [Lipitor] 10 mg PO HS 02/19/19 Calcitriol [Calcitriol -] 0.25 mcg PO DAILY 02/19/19 Calcium Acetate 667 mg PO TID 02/19/19 Carvedilol [Coreg -] 6.25 mg PO BID 02/19/19 Acetaminophen [Tylenol .Regular Strength -] 650 mg PO Q6H PRN tablet 04/19/19 Ferrous Sulfate 325 mg PO BID 05/25/19 Losartan Potassium [Cozaar -] 50 mg PO DAILY #90 tablet 05/28/19 Nifedipine ER [Procardia XL -] 120 mg PO DAILY #180 tab.er.24 05/28/19 Amitriptyline HCl [Elavil -] 50 mg PO HS #30 tablet 06/07/19 Sevelamer Carbonate [Renvela -] 1,600 mg PO TIDCM tab 06/07/19 Anemia: Yes Asthma: Yes Cancer: No Cardiac Disorders: Yes (PAD,CAD, PVD) CVA: No COPD: Yes CHF: No DVT: No Dementia: No Diabetes: Yes Dialysis: Yes (M,W,F R SUBCLAVIN PORT) GI Disorders: Yes (chronic diarrhea) Disorders: No HTN: Yes Hypercholesterolemia: Yes Liver Disease: No Seizures: No Thyroid Disease: No - Surgical History Abdominal Surgery: No Appendectomy: No Cardiac Surgery: Yes (FEMORAL BYPASS) Cholecystectomy: Yes Lung Surgery: No Neurologic Surgery: No Orthopedic Surgery: Yes (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) - Immunization History Td Vaccination: Yes TDAP Vaccination: Yes Immunization Up to Date: Yes - Psycho Social/Smoking Cessation Hx Smoking Status: Yes Smoking History: Current every day smoker Have you smoked in the past 12 months: Yes Number of Cigarettes Smoked Daily: 30 If you are a former smoker, when did you quit?: 08/10/2012 Cigars Per Day: 30 Information on smoking cessation initiated: No 'Breaking Loose' booklet given: 06/28/19 Hx Alcohol Use: No Drug/Substance Use Hx: No Substance Use Type: Alcohol Hx Substance Use Treatment: No Review of Systems - Review of Systems Able to Perform ROS?: Yes Comments:: 07/02/19 09:49 Constitutional - Pt denies Fever, Chills. +generalized weakness HEENT: denies vision changes, sore throat Respiratory: Denies cough, sob, hemoptysis Cardiac: denies chest pain, palpitations, light headedness, leg swelling Abd/GI: denies abd pain, nausea, vomiting, blood per rectum, melena. + chronic diarrhea : denies dysuria, frequency, discharge Musculskelatal - denies back pain, joint swelling skin - denies bruising, erythema, rash neurological: denies headache, numbness, focal weakness, tingling, ataxia, weakness hematologic: denies anemia, easy bruising, easy bleeding *Physical Exam - Vital Signs Last Vital Signs Temp Pulse Resp BP Pulse Ox 97.9 F 87 18 165/70 100 07/02/19 08:42 07/02/19 08:42 07/02/19 08:42 07/02/19 08:42 07/02/19 08:42 - Physical Exam Comments: 07/02/19 09:49 GENERAL: The patient is awake, alert, and fully oriented, Nontoxic - in no acute distress. HEAD: Normocephalic, atraumatic. EYES: extraocular movements intact, sclera anicteric, conjunctiva clear. ENT: Normal voice, Moist mucous membranes. NECK: Normal range of motion, supple without lymphadenopathy, JVD, or masses. LUNGS: Breath sounds equal, clear to auscultation bilaterally. No wheezes, no crackles, no rales. CHEST: cathether in R chest HEART: Regular rate and rhythm, normal S1 and S2 without murmur, rub or gallop. ABDOMEN: Soft, nontender, normoactive bowel sounds. No guarding, no rebound. No masses. EXTREMITIES: Normal range of motion, no edema. No clubbing or cyanosis. No cords, erythema, or tenderness. NEUROLOGICAL: No facial asymmetry, Normal speech, normal gait. PSYCH: Normal mood, normal affect. SKIN: Warm, Dry, normal turgor, no rashes or lesions noted. ED Treatment Course - LABORATORY CBC & Chemistry Diagram: 07/03/19 05:45 07/04/19 05:45 - ADDITIONAL ORDERS Additional order review: Laboratory Results 07/02/19 09:39 Creatine Kinase 75 Troponin I 0.07 H 07/02/19 09:39 RBC 4.39 MCV 94.8 MCHC 32.3 RDW 16.7 H MPV 8.3 Neutrophils % 68.9 Lymphocytes % 17.7 Monocytes % 7.6 Eosinophils % 4.8 H Basophils % 1.0 - RADIOLOGY Radiology Studies Ordered: Category Date Time Status CHEST X-RAY PORTABLE* [RAD] Stat Radiology 07/02/19 09:40 Completed Medical Decision Making - Medical Decision Making 07/02/19 10:41 will obtain lab work o eval cause of weakness and need for dialysis will dw dr. barahona 07/02/19 11:54 labs reviewed, noted for low pco2, likly related to ckd case wsa discussed with dr. barahona requested amission under symphony will admit fo melita littlecheryl will consult renal 07/02/19 14:39 Case discussed in detail with admitting physician including history, physical exam and ancillary studies. Admitting physician has assumed care for the patient, will follow all pending diagnostics and will complete the evaluation and treatment. Discharge - Discharge Information Problems reviewed: Yes Clinical Impression/Diagnosis: Missed dialysis Renal failure, chronic Qualifiers: Chronic kidney disease stage: unspecified stage Qualified Code(s): N18.9 - Chronic kidney disease, unspecified Condition: Stable - Follow up/Referral - Patient Discharge Instructions - Post Discharge Activity
--- NOTE | 2019-07-04 09:56 | PN ---
Progress Note, Physician History of Present Illness: Sitting in chair, feels better after PT with walker assistance. - Current Medication List Current Medications: Active Medications Alprazolam (Xanax -) 0.25 mg PO HS [facility] Last Admin: 07/03/19 21:08 Dose: 0.25 mg Alprazolam (Xanax -) 0.25 mg PO Q12H PRN PRN Reason: ANXIETY Last Admin: 07/04/19 08:33 Dose: 0.25 mg Amitriptyline HCl (Elavil -) 25 mg PO BID [facility] Last Admin: 07/03/19 21:08 Dose: 25 mg Aspirin (Asa -) 81 mg PO DAILY [facility] Last Admin: 07/03/19 09:26 Dose: 81 mg Atorvastatin Calcium (Lipitor -) 10 mg PO HS [facility] Last Admin: 07/03/19 21:08 Dose: 10 mg Calcitriol (Rocaltrol -) 0.25 mcg PO DAILY [facility] Last Admin: 07/03/19 09:27 Dose: 0.25 mcg Carvedilol (Coreg -) 6.25 mg PO BID [facility] Last Admin: 07/03/19 21:08 Dose: 6.25 mg Cholestyramine Resin (Questran Light Packet -) 4 gm PO BID [facility] Last Admin: 07/03/19 21:08 Dose: 4 gm Ferrous Sulfate (Feosol -) 325 mg PO BID [facility] Last Admin: 07/03/19 21:08 Dose: 325 mg Losartan Potassium (Cozaar -) 50 mg PO DAILY [facility] Last Admin: 07/03/19 13:14 Dose: 50 mg Nifedipine (Procardia Xl -) 120 mg PO DAILY [facility] Last Admin: 07/03/19 13:14 Dose: 120 mg Nystatin (Mycostatin Ointment -) 1 applic TP BID [facility] Last Admin: 07/03/19 21:08 Dose: 1 applic Sevelamer Carbonate (Renvela -) 1,600 mg PO TIDCM [facility] Last Admin: 07/04/19 08:33 Dose: 1,600 mg - Objective Vital Signs: Vital Signs Temperature 97.8 F 07/04/19 06:00 Pulse Rate 81 07/04/19 06:00 Respiratory Rate 18 07/04/19 06:00 Blood Pressure 133/74 07/04/19 06:00 O2 Sat by Pulse Oximetry (%) 97 07/03/19 21:00 Constitutional: Yes: No Distress, Calm, Thin Neck: Yes: Supple Cardiovascular: Yes: Regular Rate and Rhythm Respiratory: Yes: Regular, CTA Bilaterally Gastrointestinal: Yes: Normal Bowel Sounds, Soft Edema: No Labs: CBC, BMP 07/03/19 05:45 07/04/19 05:45 - ....Imaging EKG: Report Reviewed (Tele: NSR) Problem List - Problems (1) Diabetes Code(s): E11.9 - TYPE 2 DIABETES MELLITUS WITHOUT COMPLICATIONS Qualifiers: Diabetes mellitus type: type 2 Diabetes mellitus intermediate designer insulin use: with long-term use Diabetes mellitus complication detail: with chronic kidney disease Chronic kidney disease stage: on chronic dialysis (2) ESRD (end stage renal disease) on dialysis Code(s): N18.6 - END STAGE RENAL DISEASE; Z99.2 - DEPENDENCE ON RENAL DIALYSIS (3) CAD (coronary artery disease) Code(s): I25.10 - ATHSCL HEART DISEASE OF [place] CORONARY ARTERY W/O ANG PCTRS Qualifiers: Coronary Disease-Associated Artery/Lesion type: [place] artery [place] vs. transplanted heart: [place] heart Associated angina: without angina Qualified Code(s): I25.10 - Atherosclerotic heart disease of [place] coronary artery without angina pectoris (4) ESRD (end stage renal disease) on dialysis Code(s): N18.6 - END STAGE RENAL DISEASE; Z99.2 - DEPENDENCE ON RENAL DIALYSIS (5) HTN (hypertension) Code(s): I10 - ESSENTIAL (PRIMARY) HYPERTENSION Qualifiers: Hypertension type: unspecified Qualified Code(s): I10 - Essential (primary ) hypertension (6) Hemodialysis patient Code(s): Z99.2 - DEPENDENCE ON RENAL DIALYSIS (7) Hyperlipidemia associated with type 2 diabetes mellitus Code(s): E11.69 - TYPE 2 DIABETES MELLITUS WITH OTHER SPECIFIED COMPLICATION; E78.5 - HYPERLIPIDEMIA, UNSPECIFIED (8) Hypertensive heart disease Code(s): I11.9 - HYPERTENSIVE HEART DISEASE WITHOUT HEART FAILURE Qualifiers: (9) Insulin dependent diabetes mellitus Code(s): E11.9 - TYPE 2 DIABETES MELLITUS WITHOUT COMPLICATIONS; Z79.4 - COMMISSIONING AGENT (CURRENT) USE OF INSULIN (10) PAD (peripheral artery disease) Code(s): I73.9 - PERIPHERAL VASCULAR DISEASE, UNSPECIFIED (11) S/P femoropopliteal bypass surgery Code(s): Z95.828 - PRESENCE OF OTHER VASCULAR IMPLANTS AND GRAFTS (12) Uncontrolled hypertension Code(s): I10 - ESSENTIAL (PRIMARY) HYPERTENSION Assessment/Plan 1. Generalized weakness, falls, failure to thrive 2. Hypertensive urgency in a patient with known history of hypertensive cardiovascular disease, since resolved 3. End-stage renal disease on hemodialysis, dialysis noncompliance 4. CAD with history of subendocardial ishemia/demand ischemic injury angina pectoris, clinically stable 5. Diastolic LV dysfunction with clinical class 0 NYHA classification LV failure 6. DM 7. Hypercholesterolemia 8. History of PAD post right fem-pop bypass 9. COPD 10. Anemia 11. Post toe amputation for osteomyelitis PLAN: 1. Continue Coreg 6.25 bid 2. Continue Procardia XL 120 qd 3. Continue Cozaar 50 qd 4. Continue ASA 81 qd 5. Continue Lipitor 10 qhs 6. Hemodialysis as per renal service, and emphasized importance of compliance 7. Thank you for consultative opportunity, PT as tolerated with eventual home PT
[2019-07-04 10:16] LABS: BASO % 1.2 % (0-2.0); EOS % 6.1 % (0-4.5); HEMATOCRIT 38.7 % (32.4-45.2); HEMOGLOBIN 12.6 GM/dL (10.7-15.3); LYMPH % 28.2 % (8-40); MCH 30.7 pg (25.7-33.7); MCHC 32.5 g/dl (32.0-36.0); MEAN CELL VOLUME 94.5 fl (80-96); MEAN PLT VOLUME 8.1 fl (7.5-11.1); NEUT % 54.5 % (42.8-82.8); PLATELET COUNT 298 K/MM3 (134-434); RDW 16.4 % (11.6-15.6); WHITE BLOOD COUNT 5.6 K/mm3 (4.0-10.0)
[2019-07-04] MEDS: CHOLESTYRAMINE/ASPARTAME 4 GM PACKET PO SCH ×2 (10:23→21:48)
[2019-07-04] MEDS: AMITRIPTYLINE HCL 25 MG TABLET (FP) PO SCH ×2 (10:25→21:47)
[2019-07-04] MEDS: ASPIRIN 81 MG CHEWABLE TABLETS PO SCH (10:25)
[2019-07-04] MEDS: NIFEdipine E.R 60 MG TABLET (UD) PO SCH (10:25)
[2019-07-04] MEDS: FERROUS SO4 325 MG TABLET (FP) PO SCH ×2 (10:25→21:47)
[2019-07-04] MEDS: CARVEDILOL 6.25 MG TABLET (FP) PO SCH ×2 (10:25→21:47)
[2019-07-04] MEDS: LOSARTAN POTASSIUM 50 MG TABLET (FP) PO SCH (10:25)
[2019-07-04] MEDS: CALCITRIOL 0.25 MCG CAPSULE (FP) PO SCH (10:25)
[2019-07-04] MEDS: NYSTATIN 100000 UNIT/GM TOPICAL OINTMENT 15 GM TUBE TP SCH ×2 (10:26→21:48)
--- NOTE | 2019-07-04 14:35 | PN ---
Physical Exam: SUBJECTIVE: Patient seen and examined at the bedside. now wants to continue dialysis. advised her that I will have psych evaluate her but she is refusing psych for various reasons. wants to continue dialysis and is asking for short term rehab. OBJECTIVE: Patient is an 83 year old female with a significant past medical history of ESRD on HD (MWF), hypertension, femoral bypass, PAD, CAD, PVD, diabetes, chronic diarrhea, anemia, daily smoking (30 cigs per day) OA and anxiety. Patient presents to the ED for generalized weakness, worsening fatigue and chronic diarrhea. Patient reports that she has missed her dialysis last week on Monday and Monday secondary to extreme fatigue at home so she received dialysis on 06/29/2019. She reports that she fell after attempting to go to the bathroom when at home prior to admission. denies any hitting head or LOC. She lives alone but was able to get up on her own after the fall. Patient denies any dizziness, lightheadedness or headache prior to her fall. She is asking for short term rehab and now wants to continue dialysis. seen by palliative care yesterday. Vital Signs Period Temp Pulse Resp BP Sys/Banuelos Pulse Ox Last 24 Hr 97.8 F-98.9 F 71-91 16-18 101-176/51-87 97-97 ENERAL: Awake, alert, and fully oriented HEAD: Normal with no signs of trauma. EYES: Pupils equal, round and reactive to light, extraocular movements intact, sclera anicteric, conjunctiva clear. No lid lag. EARS, NOSE, THROAT: Ears normal, nares patent, oropharynx clear without exudates. Moist mucous membranes. NECK: Normal range of motion, supple without lymphadenopathy, JVD, or masses. HEART: Regular rate and rhythm ABDOMEN: Soft, nontender, not distended, normoactive bowel sounds, no guarding, no rebound, no masses. No hepatomegaly or splenomegaly. MUSCULOSKELETAL: Normal range of motion at all joints. No bony deformities or tenderness. No CVA tenderness. UPPER EXTREMITIES: No peripheral edema. LOWER EXTREMITIES: No peripheral edema. NEUROLOGICAL: Normal speech. ambulates with RW SKIN: Warm, dry, normal turgor, no rashes or lesions noted, normal capillary refill. Laboratory Results - last 24 hr 07/03/19 07/03/19 07/04/19 16:47 22:26 05:43 WBC RBC Hgb Hct MCV MCH MCHC RDW Plt Count MPV Absolute Neuts (auto) Neutrophils % Lymphocytes % Monocytes % Eosinophils % Basophils % Nucleated RBC % Sodium Potassium Chloride Carbon Dioxide Anion Gap BUN Creatinine Est GFR (CKD-EPI)AfAm Est GFR (CKD-EPI)NonAf POC Glucometer 88 131 93 Random Glucose Calcium 07/04/19 07/04/19 07/04/19 05:45 05:45 11:57 WBC 5.6 RBC 4.10 Hgb 12.6 Hct 38.7 MCV 94.5 MCH 30.7 MCHC 32.5 RDW 16.4 H Plt Count 298 MPV 8.1 Absolute Neuts (auto) 3.0 Neutrophils % 54.5 Lymphocytes % 28.2 D Monocytes % 10.0 Eosinophils % 6.1 H Basophils % 1.2 Nucleated RBC % 0 Sodium 142 Potassium 4.0 Chloride 106 Carbon Dioxide 28 Anion Gap 8 BUN 23.8 H Creatinine 4.9 H Est GFR (CKD-EPI)AfAm 8.96 Est GFR (CKD-EPI)NonAf 7.73 POC Glucometer 104 Random Glucose 95 Calcium 8.1 L Active Medications Generic Name Dose Route Start Last Admin Trade Name Freq PRN Reason Stop Dose Admin Alprazolam 0.25 mg 07/02/19 22:00 07/03/19 21:08 Xanax - PO 0.25 mg HS BEATRIZ Administration Alprazolam 0.25 mg 07/02/19 14:42 07/04/19 08:33 Xanax - PO 0.25 mg Q12H PRN Administration ANXIETY Amitriptyline HCl 25 mg 07/02/19 20:00 07/04/19 10:25 Elavil - PO 25 mg BID BEATRIZ Administration Aspirin 81 mg 07/03/19 10:00 07/04/19 10:25 Asa - PO 81 mg DAILY BEATRIZ Administration Atorvastatin Calcium 10 mg 07/02/19 22:00 07/03/19 21:08 Lipitor - PO 10 mg HS BEATRIZ Administration Calcitriol 0.25 mcg 07/03/19 10:00 07/04/19 10:25 Rocaltrol - PO 0.25 mcg DAILY BEATRIZ Administration Carvedilol 6.25 mg 07/02/19 22:00 07/04/19 10:25 Coreg - PO 6.25 mg BID BEATRIZ Administration Cholestyramine Resin 4 gm 07/03/19 12:30 07/04/19 10:23 Questran Light Packet - PO 4 gm BID BEATRIZ Administration Ferrous Sulfate 325 mg 07/02/19 22:00 07/04/19 10:25 Feosol - PO 325 mg BID BEATRIZ Administration Losartan Potassium 50 mg 07/02/19 14:45 07/04/19 10:25 Cozaar - PO 50 mg DAILY BEATRIZ Administration Nifedipine 120 mg 07/02/19 14:45 07/04/19 10:25 Procardia Xl - PO 120 mg DAILY BEATRIZ Administration Nystatin 1 applic 07/03/19 22:00 07/04/19 10:26 Mycostatin Ointment - TP 1 applic BID BEATRIZ Administration Sevelamer Carbonate 1,600 mg 07/02/19 17:30 07/04/19 11:59 Renvela - PO 1,600 mg TIDCM BEATRIZ Administration ASSESSMENT/PLAN: Problem List - Problems (1) Troponin I above reference range Assessment/Plan: trops 0.07, 0.06, 0.02 she is w/o chest pain, no shortness of breath monitor on tele on asa cardiology consulted, notes reviewed and appreciated Code(s): R79.89 - OTHER SPECIFIED ABNORMAL FINDINGS OF BLOOD CHEMISTRY (2) ESRD (end stage renal disease) on dialysis Assessment/Plan: creat 8.0 on admission, in the setting of dialysis non compliance due to missing appointments. she initially voiced concerns on continuing dialysis now is willing to continue. had dialysis yesterday via right chest shiley monitor K monitor on tele renal following renal diet Code(s): N18.6 - END STAGE RENAL DISEASE; Z99.2 - DEPENDENCE ON RENAL DIALYSIS (3) Diabetes Assessment/Plan: not on any home meds blood sugars not elevated here Code(s): E11.9 - TYPE 2 DIABETES MELLITUS WITHOUT COMPLICATIONS Qualifiers: Diabetes mellitus type: type 2 Diabetes mellitus detention insulin use: with detention use Diabetes mellitus complication detail: with chronic kidney disease Chronic kidney disease stage: on chronic dialysis (4) Missed dialysis Assessment/Plan: patient reports non compliance due to increased fatigue and poor ambulatory status. for physical therapy evaluate for need for rehab on d/c Code(s): [id number] - (5) Uncontrolled hypertension Assessment/Plan: on procardia 120 and losartan 50 monitor bp Code(s): I10 - ESSENTIAL (PRIMARY) HYPERTENSION (6) Weakness Assessment/Plan: physical therapy ordered may need rehab for falls and weakness at home Code(s): R53.1 - WEAKNESS (7) Fall Code(s): W19.XXXA - UNSPECIFIED FALL, INITIAL ENCOUNTER (8) Prophylactic measure Assessment/Plan: fen tolerating po monitor electrolytes renal diet full code heparin bid Code(s): Z29.9 - ENCOUNTER FOR PROPHYLACTIC MEASURES, UNSPECIFIED Visit type - Emergency Visit Emergency Visit: Yes ED Registration Date: 07/02/19 Care time: The patient presented to the Emergency Department on the above date and was hospitalized for further evaluation of their emergent condition. - New Patient This patient is new to me today: No - Critical Care Critical Care patient: No - Discharge Referral Referred to [facility] Med [facility].C[facility] No
--- NOTE | 2019-07-04 14:53 | PN ---
Progress Note (short form) - Note Progress Note: Renal follow up for ESRD on HD Seen and examined at the bedside awake and alert no acute complaints s/p dialysis yesterday Vital Signs Temperature 98.3 F 07/04/19 14:12 Pulse Rate 71 07/04/19 14:12 Respiratory Rate 16 07/04/19 14:12 Blood Pressure 101/51 L 07/04/19 14:12 O2 Sat by Pulse Oximetry (%) 97 07/04/19 09:00 Intake & Output 07/01/19 07/02/19 07/03/19 07/04/19 23:59 23:59 23:59 23:59 Intake Total 240 1940 1080 Output Total 400 1901 Balance -382 77 3966 Weight 50.802 kg 55.792 kg 56.472 kg NAD RRR CTA soft NT/ND no LE edema Right IJ tunneled catheter CBC, BMP 07/04/19 05:45 07/04/19 05:45 Current Medications Alprazolam (Xanax -) 0.25 mg PO HS [facility] Last Admin: 07/03/19 21:08 Dose: 0.25 mg Alprazolam (Xanax -) 0.25 mg PO Q12H PRN PRN Reason: ANXIETY Last Admin: 07/04/19 08:33 Dose: 0.25 mg Amitriptyline HCl (Elavil -) 25 mg PO BID [facility] Last Admin: 07/04/19 10:25 Dose: 25 mg Aspirin (Asa -) 81 mg PO DAILY [facility] Last Admin: 07/04/19 10:25 Dose: 81 mg Atorvastatin Calcium (Lipitor -) 10 mg PO HS [facility] Last Admin: 07/03/19 21:08 Dose: 10 mg Calcitriol (Rocaltrol -) 0.25 mcg PO DAILY [facility] Last Admin: 07/04/19 10:25 Dose: 0.25 mcg Carvedilol (Coreg -) 6.25 mg PO BID [facility] Last Admin: 07/04/19 10:25 Dose: 6.25 mg Cholestyramine Resin (Questran Light Packet -) 4 gm PO BID [facility] Last Admin: 07/04/19 10:23 Dose: 4 gm Ferrous Sulfate (Feosol -) 325 mg PO BID [facility] Last Admin: 07/04/19 10:25 Dose: 325 mg Losartan Potassium (Cozaar -) 50 mg PO DAILY [facility] Last Admin: 07/04/19 10:25 Dose: 50 mg Nifedipine (Procardia Xl -) 120 mg PO DAILY [facility] Last Admin: 07/04/19 10:25 Dose: 120 mg Nystatin (Mycostatin Ointment -) 1 applic TP BID [facility] Last Admin: 07/04/19 10:26 Dose: 1 applic Sevelamer Carbonate (Renvela -) 1,600 mg PO TIDCM [facility] Last Admin: 07/04/19 11:59 Dose: 1,600 mg 83 year old woman with history of ESRD on HD, hypertension, DM, chronic diarreha who presented from home with generalized weakness and fall w/o LOC. 1. Falls 2. Generalized weakness 3. ESRD on HD 4. Hypertension 5. Hyperkalemia 6. Metabolic acidosis no acute need for [employer]OR[employer] ATTEND[employer] today, next dialysis planned for tomorrow Continue present antihypertensives post dialysis awaiting possible placement [facility] Thank you Quentin Goyal DO
[2019-07-04] MEDS ORDERED: ALPRAZolam 1 MG TABLET PO ONE (15:48)
[2019-07-04] MEDS ORDERED: ALPRAZolam 0.25 MG TABLET PO ONE (16:15)
[2019-07-04] MEDS: ALPRAZolam 0.25 MG TABLET PO SCH (21:47)
[2019-07-04] MEDS: ATORVASTATIN CA 10 MG TABLET (FP) PO SCH (21:47)
[2019-07-05] MEDS ORDERED: SODIUM CHLORIDE 250 ML IV PRN (08:15)
[2019-07-05] MEDS ORDERED: HEPARIN NA (PORCINE) 5,000 UNITS/ML 1ML VIAL IVPUSH ONE (08:15)
[2019-07-05] MEDS: HEPARIN NA (PORCINE) 5,000 UNITS/ML 1ML VIAL IVPUSH SCH ×2 (08:26→09:49)
[2019-07-05 08:29] LABS: BASO % 1.1 % (0-2.0); EOS % 8.5 % (0-4.5); HEMATOCRIT 35.9 % (32.4-45.2); HEMOGLOBIN 11.7 GM/dL (10.7-15.3); LYMPH % 19.9 % (8-40); MCH 30.5 pg (25.7-33.7); MCHC 32.5 g/dl (32.0-36.0); MEAN CELL VOLUME 93.8 fl (80-96); MEAN PLT VOLUME 8.3 fl (7.5-11.1); MONO % 9.8 % (3.8-10.2); NEUT % 60.7 % (42.8-82.8); PLATELET COUNT 277 K/MM3 (134-434); RBC 3.83 M/mm3 (3.60-5.2); RDW 16.3 % (11.6-15.6); WHITE BLOOD COUNT 5.7 K/mm3 (4.0-10.0)
[2019-07-05] MEDS: SEVELAMER CARBONATE 800 MG TAB (FP) PO SCH ×4 (08:46→17:51)
[2019-07-05] MEDS: ALPRAZolam 0.25 MG TABLET PO PRN (08:47)
[2019-07-05 08:59] LABS: BILIRUBIN,TOTAL 0.2 mg/dL (0.2-1); BLOOD UREA NITROGEN 42.8 mg/dL (7-18); CALCIUM 8.2 mg/dL (8.5-10.1); CREATININE 6.5 mg/dL (0.55-1.3); MAGNESIUM 2.2 mg/dL (1.8-2.4); POTASSIUM 4.4 mmol/L (3.5-5.1); TOT PROT 6.4 g/dl (6.4-8.2)
--- NOTE | 2019-07-05 10:25 | PN ---
Progress Note, Physician History of Present Illness: Awaiting SNF transfer vs home PT, asymptomatic. - Current Medication List Current Medications: Active Medications Alprazolam (Xanax -) 0.25 mg PO HS [facility] Last Admin: 07/04/19 21:47 Dose: 0.25 mg Alprazolam (Xanax -) 0.25 mg PO Q12H PRN PRN Reason: ANXIETY Last Admin: 07/05/19 08:47 Dose: 0.25 mg Amitriptyline HCl (Elavil -) 25 mg PO BID [facility] Last Admin: 07/04/19 21:47 Dose: 25 mg Aspirin (Asa -) 81 mg PO DAILY [facility] Last Admin: 07/04/19 10:25 Dose: 81 mg Atorvastatin Calcium (Lipitor -) 10 mg PO HS [facility] Last Admin: 07/04/19 21:47 Dose: 10 mg Calcitriol (Rocaltrol -) 0.25 mcg PO DAILY [facility] Last Admin: 07/04/19 10:25 Dose: 0.25 mcg Carvedilol (Coreg -) 6.25 mg PO BID [facility] Last Admin: 07/04/19 21:47 Dose: 6.25 mg Cholestyramine Resin (Questran Light Packet -) 4 gm PO BID [facility] Last Admin: 07/04/19 21:48 Dose: 4 gm Ferrous Sulfate (Feosol -) 325 mg PO BID [facility] Last Admin: 07/04/19 21:47 Dose: 325 mg Losartan Potassium (Cozaar -) 50 mg PO DAILY [facility] Last Admin: 07/04/19 10:25 Dose: 50 mg Nifedipine (Procardia Xl -) 120 mg PO DAILY [facility] Last Admin: 07/04/19 10:25 Dose: 120 mg Nystatin (Mycostatin Ointment -) 1 applic TP BID [facility] Last Admin: 07/04/19 21:48 Dose: 1 applic Sevelamer Carbonate (Renvela -) 1,600 mg PO TIDCM [facility] Last Admin: 07/05/19 08:46 Dose: 1,600 mg - Objective Vital Signs: Vital Signs Temperature 97.1 F L 07/05/19 08:15 Pulse Rate 92 H 07/05/19 09:45 Respiratory Rate 18 07/05/19 09:45 Blood Pressure 148/80 07/05/19 09:45 O2 Sat by Pulse Oximetry (%) 97 07/04/19 20:47 Constitutional: Yes: No Distress, Calm, Thin Neck: Yes: Supple Cardiovascular: Yes: Regular Rate and Rhythm Respiratory: Yes: Regular, CTA Bilaterally Gastrointestinal: Yes: Soft, Hypoactive Bowel Sounds Edema: No Labs: CBC, BMP 07/05/19 07:44 07/05/19 07:44 Problem List - Problems (1) Diabetes Code(s): E11.9 - TYPE 2 DIABETES MELLITUS WITHOUT COMPLICATIONS Qualifiers: Diabetes mellitus type: type 2 Diabetes mellitus termite control representative insulin use: with termite control representative use Diabetes mellitus complication detail: with chronic kidney disease Chronic kidney disease stage: on chronic dialysis (2) ESRD (end stage renal disease) on dialysis Code(s): N18.6 - END STAGE RENAL DISEASE; Z99.2 - DEPENDENCE ON RENAL DIALYSIS (3) CAD (coronary artery disease) Code(s): I25.10 - ATHSCL HEART DISEASE OF [place] CORONARY ARTERY W/O ANG PCTRS Qualifiers: Coronary Disease-Associated Artery/Lesion type: [place] artery [place] vs. transplanted heart: [place] heart Associated angina: without angina Qualified Code(s): I25.10 - Atherosclerotic heart disease of [place] coronary artery without angina pectoris (4) ESRD (end stage renal disease) on dialysis Code(s): N18.6 - END STAGE RENAL DISEASE; Z99.2 - DEPENDENCE ON RENAL DIALYSIS (5) HTN (hypertension) Code(s): I10 - ESSENTIAL (PRIMARY) HYPERTENSION Qualifiers: Hypertension type: unspecified Qualified Code(s): I10 - Essential (primary ) hypertension (6) Hemodialysis patient Code(s): Z99.2 - DEPENDENCE ON RENAL DIALYSIS (7) Hyperlipidemia associated with type 2 diabetes mellitus Code(s): E11.69 - TYPE 2 DIABETES MELLITUS WITH OTHER SPECIFIED COMPLICATION; E78.5 - HYPERLIPIDEMIA, UNSPECIFIED (8) Hypertensive heart disease Code(s): I11.9 - HYPERTENSIVE HEART DISEASE WITHOUT HEART FAILURE Qualifiers: (9) Insulin dependent diabetes mellitus Code(s): E11.9 - TYPE 2 DIABETES MELLITUS WITHOUT COMPLICATIONS; Z79.4 - HALFWAY (CURRENT) USE OF INSULIN (10) PAD (peripheral artery disease) Code(s): I73.9 - PERIPHERAL VASCULAR DISEASE, UNSPECIFIED (11) S/P femoropopliteal bypass surgery Code(s): Z95.828 - PRESENCE OF OTHER VASCULAR IMPLANTS AND GRAFTS (12) Uncontrolled hypertension Code(s): I10 - ESSENTIAL (PRIMARY) HYPERTENSION Assessment/Plan 1. Generalized weakness, falls, failure to thrive 2. Hypertensive urgency in a patient with known history of hypertensive cardiovascular disease, since resolved 3. End-stage renal disease on hemodialysis, dialysis noncompliance 4. CAD with history of subendocardial ishemia/demand ischemic injury angina pectoris, clinically stable 5. Diastolic LV dysfunction with clinical class 0 NYHA classification LV failure 6. DM 7. Hypercholesterolemia 8. History of PAD post right fem-pop bypass 9. COPD 10. Anemia 11. Post toe amputation for osteomyelitis PLAN: 1. Continue Coreg 6.25 bid 2. Continue Procardia XL 120 qd 3. Continue Cozaar 50 qd 4. Continue ASA 81 qd 5. Continue Lipitor 10 qhs 6. Hemodialysis as per renal service, and emphasized importance of compliance 7. PT as tolerated with SNF vs home PT
[2019-07-05] MEDS: ASPIRIN 81 MG CHEWABLE TABLETS PO SCH (11:38)
[2019-07-05] MEDS: LOSARTAN POTASSIUM 50 MG TABLET (FP) PO SCH (11:38)
[2019-07-05] MEDS: NIFEdipine E.R 60 MG TABLET (UD) PO SCH (11:39)
[2019-07-05] MEDS: CARVEDILOL 6.25 MG TABLET (FP) PO SCH ×2 (11:39→22:05)
[2019-07-05] MEDS: CALCITRIOL 0.25 MCG CAPSULE (FP) PO SCH (11:40)
[2019-07-05] MEDS: FERROUS SO4 325 MG TABLET (FP) PO SCH ×2 (11:40→22:05)
[2019-07-05] MEDS: NYSTATIN 100000 UNIT/GM TOPICAL OINTMENT 15 GM TUBE TP SCH ×2 (11:42→22:06)
[2019-07-05] MEDS: AMITRIPTYLINE HCL 25 MG TABLET (FP) PO SCH ×2 (11:46→22:05)
[2019-07-05] MEDS: CHOLESTYRAMINE/ASPARTAME 4 GM PACKET PO SCH ×2 (11:49→22:06)
--- NOTE | 2019-07-05 15:31 | DS ---
Physical Exam: SUBJECTIVE: Patient seen and examined at the bedside. received dialysis today via right shiley catheter. Patient has not been accepted to a rehab facility and ambulated over 200 feet, will discharge home. She is agreeing to continue dialysis now, does not want to stop it and tells me she will continue going three times per week. I offered her to speak with psyche yesterday but she refused and does not want me to have them see her. OBJECTIVE: Patient is an 83 year old female with a significant past medical history of ESRD on HD (MWF), hypertension, femoral bypass, PAD, CAD, PVD, diabetes, chronic diarrhea, anemia, daily smoking (30 cigs per day) OA and anxiety. Patient presents to the ED for generalized weakness, worsening fatigue and chronic diarrhea. Patient reports that she has missed her dialysis last week on Monday and Monday secondary to extreme fatigue at home so she received dialysis on 06/29/2019. She reports that she fell after attempting to go to the bathroom when at home prior to admission. denies any hitting head or LOC. She lives alone but was able to get up on her own after the fall. Patient denies any dizziness, lightheadedness or headache prior to her fall. She is asking for short term rehab and now wants to continue dialysis, however was denied for short term rehab and will be discharged home. She now tells me that she wants to continue dialysis. Vital Signs Period Temp Pulse Resp BP Sys/Banuelos Pulse Ox Last 24 Hr 97.1 F-98.4 F 71-99 16-20 130-180/60-92 97 PHYSICAL EXAM GENERAL: Awake, alert, and fully oriented HEAD: Normal with no signs of trauma. EYES: Pupils equal, round and reactive to light, extraocular movements intact, sclera anicteric, conjunctiva clear. No lid lag. EARS, NOSE, THROAT: Ears normal, nares patent, oropharynx clear without exudates. Moist mucous membranes. NECK: Normal range of motion, supple without lymphadenopathy, JVD, or masses. HEART: Regular rate and rhythm ABDOMEN: Soft, nontender, not distended, normoactive bowel sounds, no guarding, no rebound, no masses. No hepatomegaly or splenomegaly. MUSCULOSKELETAL: Normal range of motion at all joints. No bony deformities or tenderness. No CVA tenderness. UPPER EXTREMITIES: No peripheral edema. LOWER EXTREMITIES: No peripheral edema. NEUROLOGICAL: Normal speech. ambulates with RW SKIN: Warm, dry, normal turgor, no rashes or lesions noted, normal capillary refill. LABS Laboratory Results - last 24 hr 07/05/19 07/05/19 07/05/19 07:44 07:44 12:14 WBC 5.7 RBC 3.83 Hgb 11.7 Hct 35.9 MCV 93.8 MCH 30.5 MCHC 32.5 RDW 16.3 H Plt Count 277 MPV 8.3 Absolute Neuts (auto) 3.5 Neutrophils % 60.7 Lymphocytes % 19.9 D Monocytes % 9.8 Eosinophils % 8.5 H Basophils % 1.1 Nucleated RBC % 0 Sodium 139 Potassium 4.4 Chloride 106 Carbon Dioxide 25 Anion Gap 9 BUN 42.8 H Creatinine 6.5 H Est GFR (CKD-EPI)AfAm 6.37 Est GFR (CKD-EPI)NonAf 5.49 POC Glucometer 160 Random Glucose 95 Calcium 8.2 L Magnesium 2.2 Total Bilirubin 0.2 AST 16 ALT 14 Alkaline Phosphatase 70 Total Protein 6.4 Albumin 3.0 L HOSPITAL COURSE: Date of Admission:07/02/19 Date of Discharge: 07/05/19 Minutes to complete discharge: 45 Discharge Summary Problems reviewed: Yes Reason For Visit: END STAGE RENAL DISEASE ON HEMODIALYSIS Current Active Problems Diabetes (Acute) ESRD (end stage renal disease) on dialysis (Acute) Fall (Acute) Missed dialysis (Acute) Renal failure, chronic (Acute) Troponin I above reference range (Acute) Condition: Stable - Instructions Diet, Activity, Other Instructions: Mrs Clearly: You were admitted for a fall and for missed dialysis sessions. During your hospital stay, you were seen by the head orthopedic team physician and the renal specialist. You received dialysis today. You will be discharged home today. Please continue the dialysis as an outpatient and resume your schedule. Continue all the medications as outlined on your discharge instructions. Thank you for allowing us to care for you. Medications: Continue Coreg 6.25 TWICE PER DAY Continue Procardia XL 120 ONCE PER DAY Continue Cozaar 50mg DAILY Continue Aspiril 81mg DAILY Continue Lipitor 10mg at bedtime Follow ups: Please follow up with Dr. Lam (head orthopedic team physician) by calling his office to make an appointment Please call Dr. Barahona for a follow up visit. Thank you for allowing us to care for you. Lea Tiwari [place] ELECTRICIAN ASSISTANT/[facility] [phone] Referrals: Angela Barahona [Primary Care Provider] - Quentin Goyal MD [Staff Physician] - Oswaldo Lam MD [Staff Physician] - Disposition: HOME - Home Medications Comprehensive Discharge Medication List: Ambulatory Orders Alprazolam [Xanax] 0.25 mg PO BID PRN 02/19/19 Aspirin [ASA -] 81 mg PO DAILY 02/19/19 Atorvastatin Ca [Lipitor] 10 mg PO HS 02/19/19 Calcitriol [Calcitriol -] 0.25 mcg PO DAILY 02/19/19 Calcium Acetate 667 mg PO TID 02/19/19 Carvedilol [Coreg -] 6.25 mg PO BID 02/19/19 Acetaminophen [Tylenol .Regular Strength -] 650 mg PO Q6H PRN tablet 04/19/19 Ferrous Sulfate 325 mg PO BID 05/25/19 Losartan Potassium [Cozaar -] 50 mg PO DAILY #90 tablet 05/28/19 Nifedipine ER [Procardia XL -] 120 mg PO DAILY #180 tab.er.24 05/28/19 Amitriptyline HCl [Elavil -] 50 mg PO HS #30 tablet 06/07/19 Sevelamer Carbonate [Renvela -] 1,600 mg PO TIDCM tab 06/07/19 Cholestyramine/Aspartame [Questran Light Packet -] 4 gm PO BID packet 07/05/19 Problem List - Problems (1) Troponin I above reference range Assessment/Plan: trops 0.07, 0.06, 0.02 she is w/o chest pain, no shortness of breath monitored on tele on [facility] cardiology consulted, notes reviewed and appreciated patient to follow cardiology as an outpatient. Code(s): R79.89 - OTHER SPECIFIED ABNORMAL FINDINGS OF BLOOD CHEMISTRY (2) ESRD (end stage renal disease) on dialysis Assessment/Plan: creat 8.0 on admission, in the setting of dialysis non compliance due to missing appointments. she initially voiced concerns on continuing dialysis now is willing to continue as an outpatient. 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 ambuated with PT over 200 feet, steady. Not accepted to short term rehab, so will discharge her home. Code(s): [id number] - (5) Uncontrolled hypertension Assessment/Plan: on procardia 120 and losartan 50, controlled. Code(s): I10 - ESSENTIAL (PRIMARY) HYPERTENSION (6) Weakness Assessment/Plan: physical therapy followed during hospital stay, ambulates with RW. Code(s): R53.1 - WEAKNESS (7) Fall Code(s): W19.XXXA - UNSPECIFIED FALL, INITIAL ENCOUNTER (8) Prophylactic measure Assessment/Plan: discharge home Code(s): Z29.9 - ENCOUNTER FOR PROPHYLACTIC MEASURES, UNSPECIFIED This patient is new to me today: No Emergency Visit: Yes ED Registration Date: 07/02/19 Care time: The patient presented to the Emergency Department on the above date and was hospitalized for further evaluation of their emergent condition. Critical Care patient: No - Discharge Referral Referred to [facility] Med P.C.: No
--- NOTE | 2019-07-05 15:36 | PN ---
Progress Note (short form) - Note Progress Note: Renal follow up for ESRD on HD Seen and examined at the bedside awake and alert s/p dialysis this am with 1L UF no acute physical complaints upset she was not accepted into rehab/half-way Vital Signs Temperature 98.4 F 07/05/19 13:45 Pulse Rate 79 07/05/19 13:45 Respiratory Rate 16 07/05/19 13:45 Blood Pressure 130/60 07/05/19 13:45 O2 Sat by Pulse Oximetry (%) 97 07/04/19 20:47 Intake & Output 07/02/19 07/03/19 07/04/19 07/05/19 23:59 23:59 23:59 23:59 Intake Total 240 1940 1790 1420 Output Total 400 1901 1500 Balance -306 91 4578 -80 Weight 50.802 kg 55.792 kg 56.472 kg 55.61 kg NAD RRR CTA soft NT/ND no LE edema Right IJ tunneled catheter CBC, BMP 07/05/19 07:44 07/05/19 07:44 Current Medications Alprazolam (Xanax -) 0.25 mg PO HS [facility] Last Admin: 07/04/19 21:47 Dose: 0.25 mg Alprazolam (Xanax -) 0.25 mg PO Q12H PRN PRN Reason: ANXIETY Last Admin: 07/05/19 08:47 Dose: 0.25 mg Amitriptyline HCl (Elavil -) 25 mg PO BID [facility] Last Admin: 07/05/19 11:46 Dose: Not Given Aspirin (Asa -) 81 mg PO DAILY [facility] Last Admin: 07/05/19 11:38 Dose: 81 mg Atorvastatin Calcium (Lipitor -) 10 mg PO HS [facility] Last Admin: 07/04/19 21:47 Dose: 10 mg Calcitriol (Rocaltrol -) 0.25 mcg PO DAILY [facility] Last Admin: 07/05/19 11:40 Dose: 0.25 mcg Carvedilol (Coreg -) 6.25 mg PO BID [facility] Last Admin: 07/05/19 11:39 Dose: 6.25 mg Cholestyramine Resin (Questran Light Packet -) 4 gm PO BID [facility] Last Admin: 07/05/19 11:49 Dose: Not Given Ferrous Sulfate (Feosol -) 325 mg PO BID [facility] Last Admin: 07/05/19 11:40 Dose: 325 mg Losartan Potassium (Cozaar -) 50 mg PO DAILY [facility] Last Admin: 07/05/19 11:38 Dose: 50 mg Nifedipine (Procardia Xl -) 120 mg PO DAILY [facility] Last Admin: 07/05/19 11:39 Dose: 120 mg Nystatin (Mycostatin Ointment -) 1 applic TP BID [facility] Last Admin: 07/05/19 11:42 Dose: 1 applic Sevelamer Carbonate (Renvela -) 1,600 mg PO TIDCM [facility] Last Admin: 07/05/19 11:43 Dose: 1,600 mg 83 year old woman with history of ESRD on HD, hypertension, DM, chronic diarreha who presented from home with generalized weakness and fall w/o LOC. 1. Falls 2. Generalized weakness 3. ESRD on HD 4. Hypertension 5. Hyperkalemia 6. Metabolic acidosis Tolerated dialysis well today, next planned dialysis in Monday as an outpatient pt to pursue obtaining medicaid as a outpatient in order to obtain placement in [place] care facility discharge planning as per primary Thank you Quentin Goyal DO
[2019-07-05] MEDS ORDERED: ALPRAZolam 0.25 MG TABLET PO ONE (18:04)
[2019-07-05] MEDS: ATORVASTATIN CA 10 MG TABLET (FP) PO SCH (22:05)
[2019-07-05] MEDS: ALPRAZolam 0.25 MG TABLET PO SCH (22:06)
[2019-07-06] MEDS: SEVELAMER CARBONATE 800 MG TAB (FP) PO SCH ×2 (08:25→11:47)
[2019-07-06] MEDS: ALPRAZolam 0.25 MG TABLET PO PRN (08:26)
[2019-07-06] MEDS ORDERED: PT OWN MED DRAWER 7, Y5N ONE (09:47)
[2019-07-06] MEDS: NIFEdipine E.R 60 MG TABLET (UD) PO SCH (09:51)
[2019-07-06] MEDS: LOSARTAN POTASSIUM 50 MG TABLET (FP) PO SCH (09:51)
[2019-07-06] MEDS: AMITRIPTYLINE HCL 25 MG TABLET (FP) PO SCH (09:51)
[2019-07-06] MEDS: CHOLESTYRAMINE/ASPARTAME 4 GM PACKET PO SCH (09:51)
[2019-07-06] MEDS: FERROUS SO4 325 MG TABLET (FP) PO SCH (09:51)
[2019-07-06] MEDS: CARVEDILOL 6.25 MG TABLET (FP) PO SCH (09:51)
[2019-07-06] MEDS: ASPIRIN 81 MG CHEWABLE TABLETS PO SCH (09:51)
[2019-07-06] MEDS: CALCITRIOL 0.25 MCG CAPSULE (FP) PO SCH (09:52)
[2019-07-06] MEDS: NYSTATIN 100000 UNIT/GM TOPICAL OINTMENT 15 GM TUBE TP SCH (09:52)
[2019-07-06 12:08] VITALS: PULSE 83; TEMP 98.3
--- NOTE | 2019-07-06 13:01 | PN ---
Physical Exam: SUBJECTIVE: Patient seen and examined, discharged on 07/05/2019, but stayed overnight. will be leaving today. she was not approved for short term rehab and will be receiving PT services at home. OBJECTIVE: Patient is an 83 year old female with a significant past medical history of ESRD on HD (MWF), hypertension, femoral bypass, PAD, CAD, PVD, diabetes, chronic diarrhea, anemia, daily smoking (30 cigs per day) OA and anxiety. Patient presents to the ED for generalized weakness, worsening fatigue and chronic diarrhea. Patient reports that she has missed her dialysis last week on Monday and Monday secondary to extreme fatigue at home so she received dialysis on 06/29/2019. She reports that she fell after attempting to go to the bathroom when at home prior to admission. denies any hitting head or LOC. She lives alone but was able to get up on her own after the fall. Patient denies any dizziness, lightheadedness or headache prior to her fall. She is asking for short term rehab and now wants to continue dialysis, however was denied for short term rehab and will be discharged home. Vital Signs Period Temp Pulse Resp BP Sys/Banuelos Pulse Ox Last 24 Hr 97.7 F-98.4 F 77-83 16-18 130-182/60-83 95-96 GENERAL: Awake, alert, and fully oriented HEAD: Normal with no signs of trauma. EYES: Pupils equal, round and reactive to light, extraocular movements intact, sclera anicteric, conjunctiva clear. No lid lag. EARS, NOSE, THROAT: Ears normal, nares patent, oropharynx clear without exudates. Moist mucous membranes. NECK: Normal range of motion, supple without lymphadenopathy, JVD, or masses. HEART: Regular rate and rhythm ABDOMEN: Soft, nontender, not distended, normoactive bowel sounds, no guarding, no rebound, no masses. No hepatomegaly or splenomegaly. MUSCULOSKELETAL: Normal range of motion at all joints. No bony deformities or tenderness. No CVA tenderness. UPPER EXTREMITIES: No peripheral edema. LOWER EXTREMITIES: No peripheral edema. NEUROLOGICAL: Normal speech. ambulates with RW SKIN: Warm, dry, normal turgor, no rashes or lesions noted, normal capillary refill. Laboratory Results - last 24 hr 07/06/19 11:11 POC Glucometer 232 Active Medications Generic Name Dose Route Start Last Admin Trade Name Freq PRN Reason Stop Dose Admin Alprazolam 0.25 mg 07/02/19 22:00 07/05/19 22:06 Xanax - PO 0.25 mg HS [facility] Administration Alprazolam 0.25 mg 07/02/19 14:42 07/06/19 08:26 Xanax - PO 0.25 mg Q12H PRN Administration ANXIETY Amitriptyline HCl 25 mg 07/02/19 20:00 07/06/19 09:51 Elavil - PO 25 mg BID [facility] Administration Aspirin 81 mg 07/03/19 10:00 07/06/19 09:51 Asa - PO 81 mg DAILY [facility] Administration Atorvastatin Calcium 10 mg 07/02/19 22:00 07/05/19 22:05 Lipitor - PO 10 mg HS [facility] Administration Calcitriol 0.25 mcg 07/03/19 10:00 07/06/19 09:52 Rocaltrol - PO 0.25 mcg DAILY [facility] Administration Carvedilol 6.25 mg 07/02/19 22:00 07/06/19 09:51 Coreg - PO 6.25 mg BID [facility] Administration Cholestyramine Resin 4 gm 07/03/19 12:30 07/06/19 09:51 Questran Light Packet - PO 4 gm BID [facility] Administration Ferrous Sulfate 325 mg 07/02/19 22:00 07/06/19 09:51 Feosol - PO 325 mg BID [facility] Administration Losartan Potassium 50 mg 07/02/19 14:45 07/06/19 09:51 Cozaar - PO 50 mg DAILY [facility] Administration Nifedipine 120 mg 07/02/19 14:45 07/06/19 09:51 Procardia Xl - PO 120 mg DAILY [facility] Administration Nystatin 1 applic 07/03/19 22:00 07/06/19 09:52 Mycostatin Ointment - TP 1 applic BID [facility] Administration Sevelamer Carbonate 1,600 mg 07/02/19 17:30 07/06/19 11:47 Renvela - PO 1,600 mg TIDCM [facility] Administration ASSESSMENT/PLAN: Problem List - Problems (1) Troponin I above reference range Assessment/Plan: trops 0.07, 0.06, 0.02 she is w/o chest pain, no shortness of breath monitored on tele on [facility] cardiology consulted, notes reviewed and appreciated patient to follow cardiology as an outpatient. Code(s): R79.89 - OTHER SPECIFIED ABNORMAL FINDINGS OF BLOOD CHEMISTRY (2) ESRD (end stage renal disease) on dialysis Assessment/Plan: creat 8.0 on admission, in the setting of dialysis non compliance due to missing appointments. she initially voiced concerns on continuing dialysis now is willing to continue as an outpatient. 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 ambuated with PT over 200 feet, steady. Not accepted to short term rehab, so will discharge her home with [facility] Code(s): [id number] - (5) Uncontrolled hypertension Assessment/Plan: on procardia 120 and losartan 50, controlled. Code(s): I10 - ESSENTIAL (PRIMARY) HYPERTENSION (6) Weakness Assessment/Plan: physical therapy followed during hospital stay, ambulates with RW. Code(s): R53.1 - WEAKNESS (7) Fall Code(s): W19.XXXA - UNSPECIFIED FALL, INITIAL ENCOUNTER (8) Prophylactic measure Assessment/Plan: discharge home Code(s): Z29.9 - ENCOUNTER FOR PROPHYLACTIC MEASURES, UNSPECIFIED Visit type - Emergency Visit Emergency Visit: Yes ED Registration Date: 07/02/19 Care time: The patient presented to the Emergency Department on the above date and was hospitalized for further evaluation of their emergent condition. - New Patient This patient is new to me today: No - Critical Care Critical Care patient: No - Discharge Referral Referred to [facility] Med P.C.: No
[2019-07-06 15:01] VITALS: BP 152/75
== END 2019-07-06 15:28 | disposition home or self-care (01) | DRG 291 ==
LOC: JER 08:34 → JERBED 12:03 → J4S 15:08
PROVIDERS: ADMIT Internal Medicine; ATTEND Nurse Practitioner Family
PROC: 5A1D70Z Performance of Urinary Filtration, Intermittent, Less than 6 Hours Per Day (ICD-10-PCS; principal; 2019-07-05)
DX: I13.2 Hypertensive heart and chronic kidney disease with heart failure and with stage 5 chronic kidney disease, or end stage renal disease (principal); N18.6 End stage renal disease; I50.33 Acute on chronic diastolic (congestive) heart failure; E87.2 Acidosis; E87.5 Hyperkalemia; I16.0 Hypertensive urgency; E11.22 Type 2 diabetes mellitus with diabetic chronic kidney disease; R62.7 Adult failure to thrive; F17.210 Nicotine dependence, cigarettes, uncomplicated; R53.1 Weakness; I25.119 Atherosclerotic heart disease of native coronary artery with unspecified angina pectoris; J44.9 Chronic obstructive pulmonary disease, unspecified; D64.9 Anemia, unspecified; Z91.15 Patient's noncompliance with renal dialysis; F17.200 Nicotine dependence, unspecified, uncomplicated; Z99.2 Dependence on renal dialysis
CPT/HCPCS: 36415; 71045-TC-FY; 80048; 80053; 80061; 82550; 82962; 83036; 83721; 83735; 84100; 84436; 84443; 84484; 85025; 85027; 93005; 93010; 97116-GP; 97161-GP; 99284-25; J1644

== ENCOUNTER 2019-07-09 11:02 | Emergency (ER) | payer OTHER ==
[2019-07-09 11:16] VITALS: TEMP 97.4; BMI 21.0
--- NOTE | 2019-07-09 12:11 | PDOC ---
History of Present Illness - General Chief Complaint: Weakness Stated Complaint: Weakness Time Seen by Provider: 07/09/19 11:40 History Source: Patient Exam Limitations: No Limitations - History of Present Illness Initial Comments: 07/09/19 12:09 83F with a PMH of HTN, ESRD on HD (M,W,F), DM (no longer on any medication), PVD , anemia, smoking, OA, anxiety who presents to the ER with complaints of weakness. She states that she started feeling generalized body weakness yesterday. 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 Goyal, who stated (per pt) that she could miss dialysis and if she continued to feel weak, she could be evaluated in the ER. Hence, her presentation. She states that this is the same weakness as she's had on prior admissions. Denies CP, SOB, abd pain, nausea, vomiting, fever, chills, cough, dysuria, numbness, tingling, focal weakness, palpitations , lightheadedness. Past History - Past Medical History Allergies/Adverse Reactions: Allergies Allergy/AdvReac Type Severity Reaction Status Date / Time iodine Allergy Rash Verified 07/09/19 11:16 penicillin V Allergy Verified 07/09/19 11:16 shellfish derived Allergy Rash Verified 07/09/19 11:16 vancomycin Allergy Verified 07/09/19 11:16 azithromycin AdvReac Verified 07/09/19 11:16 Home Medications: Ambulatory Orders RX: Alprazolam [Xanax] 0.25 mg PO BID PRN 02/19/19 RX: Aspirin [ASA -] 81 mg PO DAILY 02/19/19 RX: Atorvastatin Ca [Lipitor] 10 mg PO HS 02/19/19 RX: Calcitriol [Calcitriol -] 0.25 mcg PO DAILY 02/19/19 RX: Calcium Acetate 667 mg PO TID 02/19/19 RX: Carvedilol [Coreg -] 6.25 mg PO BID 02/19/19 RX: Acetaminophen [Tylenol .Regular Strength -] 650 mg PO Q6H PRN tablet RX: Ferrous Sulfate 325 mg PO BID 05/25/19 RX: Losartan Potassium [Cozaar -] 50 mg PO DAILY #90 tablet 05/28/19 RX: Nifedipine ER [Procardia XL -] 120 mg PO DAILY #180 tab.er.24 05/28/19 RX: Amitriptyline HCl [Elavil -] 50 mg PO HS #30 tablet 06/07/19 RX: Sevelamer Carbonate [Renvela -] 1,600 mg PO TIDCM tab 06/07/19 RX: Cholestyramine/Aspartame [Questran Light Packet -] 4 gm PO BID packet 07/05 Anemia: Yes Asthma: Yes Cancer: No Cardiac Disorders: Yes (PAD,CAD, PVD) CVA: No COPD: Yes CHF: No DVT: No Dementia: No Diabetes: Yes Dialysis: Yes (M,W,F R SUBCLAVIN PORT) GI Disorders: Yes (chronic diarrhea) Disorders: No HTN: Yes Hypercholesterolemia: Yes Liver Disease: No Seizures: No Thyroid Disease: No - Surgical History Abdominal Surgery: No Appendectomy: No Cardiac Surgery: Yes (FEMORAL BYPASS) Cholecystectomy: Yes Lung Surgery: No Neurologic Surgery: No Orthopedic Surgery: Yes (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) - Immunization History Td Vaccination: Yes TDAP Vaccination: Yes Immunization Up to Date: Yes - Psycho Social/Smoking Cessation Hx Smoking Status: Yes Smoking History: Current every day smoker Have you smoked in the past 12 months: Yes Number of Cigarettes Smoked Daily: 30 If you are a former smoker, when did you quit?: 08/10/2012 Cigars Per Day: 30 Information on smoking cessation initiated: No 'Breaking Loose' booklet given: 06/28/19 Hx Alcohol Use: No Drug/Substance Use Hx: No Substance Use Type: Alcohol Hx Substance Use Treatment: No Review of Systems - Review of Systems Able to Perform ROS?: Yes Comments:: 07/09/19 12:10 GENERAL/CONSTITUTIONAL: + for weakness. No fever or chills. HEAD, EYES, EARS, NOSE AND THROAT: No change in vision. No ear pain or discharge. No sore throat. CARDIOVASCULAR: No chest pain, palpitations, or lightheadedness. RESPIRATORY: No cough, wheezing, shortness of breath, or hemoptysis. GASTROINTESTINAL: No abdominal pain, nausea, vomiting, diarrhea, or constipation. GENITOURINARY: No dysuria, frequency, hematuria, or change in urination. MUSCULOSKELETAL: No joint or muscle swelling or pain. No neck or back pain. SKIN: No rash or lesions. NEUROLOGIC: No headache, numbness, tingling, focal weakness, loss of consciousness, or change in strength/sensation. Is the patient limited Wolof proficient: No *Physical Exam - Vital Signs Last Vital Signs Temp Pulse Resp BP Pulse Ox 97.4 F L 89 18 131/71 99 07/09/19 11:11 07/09/19 11:11 07/09/19 11:11 07/09/19 11:11 07/09/19 11:11 - Physical Exam Comments: 07/09/19 12:10 GENERAL: Well developed, well nourished. Awake and alert. No acute distress. HEENT: Normocephalic, atraumatic. Hearing grossly normal. Moist mucous membranes. PERRLA, EOMI. No conjunctival pallor. Sclera are non-icteric. NECK: Supple. Full ROM. No JVD. CARDIOVASCULAR: Regular rate and rhythm. No murmurs, rubs, or gallops. PULMONARY: No evidence of respiratory distress. Lungs clear to auscultation bilaterally. No wheezing, rales or rhonchi. ABDOMINAL: Soft. Non-tender. Non-distended. No rebound or guarding. GENITOURINARY: No CVA tenderness bilaterally. MUSCULOSKELETAL: Normal range of motion at all joints. No bony deformities or tenderness. EXTREMITIES: No cyanosis. No clubbing. No edema. No calf tenderness or swelling. SKIN: Warm and dry. Normal capillary refill. No rashes. No jaundice. NEUROLOGICAL: Alert, awake, appropriate. Cranial nerves 2-12 grossly intact. Normal speech. Gait is normal without ataxia with walker. PSYCHIATRIC: Cooperative. Good eye contact. Appropriate mood and affect. ED Treatment Course - LABORATORY CBC & Chemistry Diagram: 07/09/19 12:05 07/09/19 12:05 Medical Decision Making - Medical Decision Making 07/09/19 12:18 83F with a PMH of HTN, ESRD on HD (M,W,F), DM (no longer on any medication), PVD , anemia, smoking, OA, anxiety who presents to the ER for weakness. Pt stated she was initially unable to ambulate and that's why she called EMS. She ambulated with me with her walker without any issues. PE unremarkable. Will obtain labs and EKG as pt missed dialysis yesterday. Pt well appearing otherwise. 07/09/19 13:30 EKG unremarkable and unchanged c/w prior. CMP WNL. K 4.8. Dr. Goyal paged. Will likely send pt for dialysis. Social work aware of pt. 07/09/19 13:[address] Goyal who agrees that patient is safe for d/c. Talking w/ social work to arrange transportation to dialysis as this seems to be an issue for the patient. Discharge - Discharge Information Problems reviewed: Yes Clinical Impression/Diagnosis: Weakness Condition: Good Disposition: HOME - Admission No - Follow up/Referral Referrals: Angela Barahona [Primary Care Provider] - Quentin Goyal MD [Staff Physician] - - Patient Discharge Instructions Patient Printed Discharge Instructions: DI for Dialysis Additional Instructions: Please go to your dialysis tomorrow. Your ER visit is not complete until your follow up with your primary care physician. Please follow up with your primary care physician in 1-2 days. Please return to the ER if you have any signs or symptoms of chest pain, shortness of breath, uncontrollable fever, chills, nausea, vomiting, numbness, tingling, or weakness in any part of your body, changes in vision, or slurred speech. Please take your medications as prescribed. Please return to the ER if symptoms persist, worsen, or new symptoms arise. - Post Discharge Activity
[2019-07-09 12:37] LABS: BASO % 1.4 % (0-2.0); EOS % 5.1 % (0-4.5); HEMATOCRIT 40.2 % (32.4-45.2); LYMPH % 21.2 % (8-40); MCH 30.4 pg (25.7-33.7); MCHC 32.3 g/dl (32.0-36.0); MEAN CELL VOLUME 94.3 fl (80-96); MEAN PLT VOLUME 8.5 fl (7.5-11.1); MONO % 7.5 % (3.8-10.2); NEUT % 64.8 % (42.8-82.8); PLATELET COUNT 311 K/MM3 (134-434); RBC 4.26 M/mm3 (3.60-5.2); RDW 16.5 % (11.6-15.6); WHITE BLOOD COUNT 8.5 K/mm3 (4.0-10.0)
--- NOTE | 2019-07-09 12:49 | PDOC ---
Attending Attestation - Resident Resident Name: Oswaldo Mathis - ED Attending Attestation I have performed the following: I have examined & evaluated the patient, The case was reviewed & discussed with the resident, I agree w/resident's findings & plan, Exceptions are as noted - HPI HPI: 07/09/19 12:36 Ms. Mckeon is an 83 yo F who is well known to this facility who presents with a complaint of weakness. 83 F with a PMH of HTN, ESRD on HD (M,W,F), DM (no longer on any medication), PVD, anemia, anxiety who presents to the ER with complaints of weakness. She missed her HD session yesterday secondary to weakness She contacted Dr. Goyal who explained that if she did not feel well, she should come in to the ER Pt does not want to go to Dialysis at her dialysis center, she would rather be dialyzed here She denies CP, SOB, abd pain, nausea, vomiting, fever, chills, cough, dysuria, numbness, tingling, focal weakness, palpitations, lightheadedness. 07/09/19 13:06 - Physicial Exam PE: 07/09/19 12:36 GENERAL: Well developed, well nourished. Awake and alert. No acute distress. HEENT: Normocephalic, atraumatic. PERRLA, EOMI. NECK: Supple. Full ROM. No JVD. CARDIOVASCULAR: Regular rate and rhythm. PULMONARY: No evidence of respiratory distress. Lungs clear to auscultation bilaterally. ABDOMINAL: Soft. Non-tender. Non-distended. MUSCULOSKELETAL: Normal range of motion at all joints. No bony deformities or tenderness. EXTREMITIES: No edema. SKIN: Warm and dry, no rash NEUROLOGICAL: Alert, awake, appropriate. Cranial nerves 2-12 grossly intact. Normal speech. Gait is normal without ataxia with walker. - Medical Decision Making 07/09/19 12:50 Laboratory Tests 07/09/19 12:05 WBC 8.5 Hgb 13.0 Hct 40.2 Plt Count 311 07/09/19 13:46 Laboratory Tests 07/09/19 12:05 Sodium 137 Potassium 4.8 Chloride 104 Carbon Dioxide 20 L BUN 66.0 H Creatinine 8.3 H* Random Glucose 136 H Call placed to Dr. Goyal No indication for emergent dialysis Pt would like to go home Pt is ambulatory through out the ER Clinical impression:Weakness, repeat presentation dialysis non compliance, repeat presentation
[2019-07-09 13:26] LABS: ALBUMIN 3.5 g/dl (3.4-5.0); BILIRUBIN,TOTAL 0.4 mg/dL (0.2-1); POTASSIUM 4.8 mmol/L (3.5-5.1); TOT PROT 7.6 g/dl (6.4-8.2)
[2019-07-09 13:28] LABS: CREATININE 8.3 mg/dL (0.55-1.3)
[2019-07-09 14:30] VITALS: BP 122/70; PULSE 75
--- NOTE | 2019-07-09 14:38 | EKG ---
Test Reason : Blood Pressure : / mmHG Vent. Rate : 082 BPM Atrial Rate : 082 BPM P-R Int : 160 ms QRS Dur : 094 ms QT Int : 416 ms P-R-T Axes : 044 047 061 degrees QTc Int : 486 ms NORMAL SINUS RHYTHM NONSPECIFIC T WAVE ABNORMALITY PROLONGED QT ABNORMAL ECG WHEN COMPARED WITH ECG OF 02-JUL-2019 09:10, NO SIGNIFICANT CHANGE WAS FOUND Confirmed by Nicholas Rojas ([id number]) on 07/09/2019 2:38:27 PM Referred By: Confirmed By:Nicholas Rojas
== END 2019-07-09 14:06 | disposition home or self-care (01) ==
LOC: JER 11:02
DX: R53.1 Weakness (principal); I12.0 Hypertensive chronic kidney disease with stage 5 chronic kidney disease or end stage renal disease; E11.22 Type 2 diabetes mellitus with diabetic chronic kidney disease; N18.6 End stage renal disease; N17.8 Other acute kidney failure; Z99.2 Dependence on renal dialysis; I73.89 Other specified peripheral vascular diseases; M19.90 Unspecified osteoarthritis, unspecified site; D64.9 Anemia, unspecified; J44.9 Chronic obstructive pulmonary disease, unspecified; J45.998 Other asthma; R19.7 Diarrhea, unspecified; Z89.411 Acquired absence of right great toe; Z89.421 Acquired absence of other right toe(s); Z88.0 Allergy status to penicillin; Z91.013 Allergy to seafood; Z88.1 Allergy status to other antibiotic agents; Z88.8 Allergy status to other drugs, medicaments and biological substances; F17.210 Nicotine dependence, cigarettes, uncomplicated
CPT/HCPCS: 36415; 80053; 85025; 93005; 93010; 99283-25

== ENCOUNTER 2019-07-10 10:25 | Inpatient (IN) | payer OTHER ==
[2019-07-10 10:44] VITALS: BMI 21.9
--- NOTE | 2019-07-10 12:22 | PDOC ---
Documentation entered by Lindsay Goss SCRIBE, acting as scribe for Benoit Summers MD. Benoit Summers MD: This documentation has been prepared by the Wolfgang box Joy, SCRIBE, under my direction and personally reviewed by me in its entirety. I confirm that the documentation accurately reflects all work, treatment, procedures, and medical decision making performed by me. History of Present Illness - General Chief Complaint: Injury Stated Complaint: FALL History Source: Patient Exam Limitations: No Limitations - History of Present Illness Initial Comments: 07/10/19 11:51 The patient is an 83 year old female with significant past medical history of HTN, ESRD on HD (MWF), femoral bypass, DM , PVD, OA, anemia, chronic diarrhea, anxiety, daily smoking who presents to the ED with s/p fall this morning. Patient states that when she woke up to go to the bathroom she felt generally weak and her legs gave out and she fell to her knees. Denies head strike, denies LOC. Patient endorses she was too weak to get back up by herself so she crawled to the living room and called EMS. Patient is requesting admission to the hospital for dialysis and is concerned that she is too weak to go home and feels too weak to ambulate Denies dizziness, focal weakness, numbness, headache, fevers, chills, CP, SOB, urinary sxs, rash, edema. Allergies: Iodine, penicillin V, shellfish derived, vancomycin, azithromycin PCP: Dr. Barahona Past History - Past Medical History Allergies/Adverse Reactions: Allergies Allergy/AdvReac Type Severity Reaction Status Date / Time iodine Allergy Rash Verified 07/10/19 10:26 penicillin V Allergy Verified 07/10/19 10:26 shellfish derived Allergy Rash Verified 07/10/19 10:26 vancomycin Allergy Verified 07/10/19 10:26 azithromycin AdvReac Verified 07/10/19 10:26 Home Medications: Ambulatory Orders Alprazolam [Xanax] 0.25 mg PO BID PRN 02/19/19 Aspirin [ASA -] 81 mg PO DAILY 02/19/19 Atorvastatin Ca [Lipitor] 10 mg PO HS 02/19/19 Calcitriol [Calcitriol -] 0.25 mcg PO DAILY 02/19/19 Calcium Acetate 667 mg PO TID 02/19/19 Carvedilol [Coreg -] 6.25 mg PO BID 02/19/19 Acetaminophen [Tylenol .Regular Strength -] 650 mg PO Q6H PRN tablet 04/19/19 Ferrous Sulfate 325 mg PO BID 05/25/19 Losartan Potassium [Cozaar -] 50 mg PO DAILY #90 tablet 05/28/19 Nifedipine ER [Procardia XL -] 120 mg PO DAILY #180 tab.er.24 05/28/19 Amitriptyline HCl [Elavil -] 50 mg PO HS #30 tablet 06/07/19 Sevelamer Carbonate [Renvela -] 1,600 mg PO TIDCM tab 06/07/19 Cholestyramine/Aspartame [Questran Light Packet -] 4 gm PO BID packet 07/05/19 Anemia: Yes Asthma: Yes Cancer: No Cardiac Disorders: Yes (PAD,CAD, PVD) CVA: No COPD: Yes CHF: No DVT: No Dementia: No Diabetes: Yes Dialysis: Yes (M,W,F R [facility]CL[facility]IN PORT) GI Disorders: Yes (chronic diarrhea) Disorders: No HTN: Yes Hypercholesterolemia: Yes Liver Disease: No Seizures: No Thyroid Disease: No - Surgical History Abdominal Surgery: No Appendectomy: No Cardiac Surgery: Yes (FEMORAL BYPASS) Cholecystectomy: Yes Lung Surgery: No Neurologic Surgery: No Orthopedic Surgery: Yes (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) - Immunization History Td Vaccination: Yes TDAP Vaccination: Yes Immunization Up to Date: Yes - Psycho Social/Smoking Cessation Hx Smoking Status: Yes Smoking History: Never smoked Have you smoked in the past 12 months: Yes Number of Cigarettes Smoked Daily: 30 If you are a former smoker, when did you quit?: 08/10/2012 Cigars Per Day: 30 'Breaking Loose' booklet given: 06/28/19 Hx Alcohol Use: No Drug/Substance Use Hx: No Substance Use Type: Alcohol Hx Substance Use Treatment: No Review of Systems - Review of Systems Able to Perform ROS?: Yes Comments:: 07/10/19 11:52 GENERAL/CONSTITUTIONAL: +Generalized weakness. No fever or chills. No weakness. HEAD, EYES, EARS, NOSE AND THROAT: No change in vision. No ear pain or discharge. No sore throat. GASTROINTESTINAL: No nausea, vomiting, diarrhea or constipation. GENITOURINARY: No dysuria, frequency, or change in urination. CARDIOVASCULAR: No chest pain or shortness of breath. RESPIRATORY: No cough, wheezing, or hemoptysis. MUSCULOSKELETAL: No joint or muscle swelling or pain. No neck or back pain. SKIN: No rash NEUROLOGIC: No headache, vertigo, loss of consciousness, or change in strength/ sensation. ENDOCRINE: No increased thirst. No abnormal weight change. HEMATOLOGIC/LYMPHATIC: No anemia, easy bleeding, or history of blood clots. ALLERGIC/IMMUNOLOGIC: No hives or skin allergy. *Physical Exam - Vital Signs Last Vital Signs Temp Pulse Resp BP Pulse Ox 97.3 F L 82 16 183/90 H 99 07/10/19 10:26 07/10/19 10:26 07/10/19 10:26 07/10/19 10:26 07/10/19 10:26 - Physical Exam Comments: 07/10/19 11:52 GENERAL: Awake, alert, and fully oriented, in no acute distress HEAD: No signs of trauma EYES: PERRLA, EOMI, sclera anicteric, conjunctiva clear ENT: Auricles normal inspection, hearing grossly normal, nares patent, oropharynx clear without exudates. Moist mucosa NECK: Normal ROM, supple, no lymphadenopathy, JVD, or masses LUNGS: Breath sounds equal, clear to auscultation bilaterally. No wheezes, and no crackles HEART: Regular rate and rhythm, normal S1 and S2, no murmurs, rubs or gallops ABDOMEN: Soft, nontender, normoactive bowel sounds. No guarding, no rebound. No masses EXTREMITIES: Normal range of motion, no edema. No clubbing or cyanosis. No cords , erythema, or tenderness. No evidence of trauma to knees b/l BACK: No midline spinal tenderness in cervical/thoracic/lumbar region NEUROLOGICAL: Normal speech, cranial nerves intact, negative pronator drift, 5/ 5 strength in all 4 extremities, normal sensation to light touch in all 4 extremities, normal cerebellar exam, normal gait, normal reflexes and tone SKIN: Warm, Dry, normal turgor, no rashes or lesions noted. Heart Score/ECG Review #1 07/10/19 12:35 Twelve-lead EKG was performed and reviewed by me. Normal sinus rhythm, rate 93. Normal axis. No ST elevations. Wavy baseline but no obvious T wave inversions. No peaked T waves. ED Treatment Course - LABORATORY CBC & Chemistry Diagram: 07/10/19 12:50 07/10/19 12:50 - RADIOLOGY Radiology Studies Ordered: Category Date Time Status CHEST X-RAY PORTABLE* [RAD] Stat Radiology 07/10/19 11:37 Ordered Medical Decision Making - Medical Decision Making 07/10/19 11:37 83-year-old female, well-known to this emergency department with medical history including end-stage renal disease on dialysis presents emergency department with generalized weakness, and a fall this morning. Patient last had dialysis 6 days ago. Her vitals are remarkable for elevated blood pressure. Exam is unremarkable with no evidence of trauma. We will plan to check the patient's blood work for reversible causes of weakness as well as for need for urgent dialysis. We will also obtain a physical therapy evaluation given patient's concerns about going back home and her generalized weakness. Case management has been informed of the patient's arrival in the emergency department and is evaluating. 07/10/19 12:[address] 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 Recommends dialysis that she has not had it since last Monday. Labs are pending. 07/10/19 14:47 Potassium within normal limits. Pt unable to move out of bed. Per Dr. Barahona's office, admit to hospitalist Case discussed with ELEAZAR Leahy. Patient accepted for observation under Dr. Naylor's service. Case discussed in detail with admitting physician including history, physical exam and ancillary studies. Admitting physician has assumed care for the patient, will follow all pending diagnostics and will complete the evaluation and treatment. Discharge - Discharge Information Problems reviewed: Yes Clinical Impression/Diagnosis: Missed dialysis, Weakness Condition: Stable - Follow up/Referral Referrals: Angela Barahona [Primary Care Provider] - - Patient Discharge Instructions - Post Discharge Activity
[2019-07-10] MEDS ORDERED: SODIUM CHLORIDE 250 ML IV PRN (12:29)
--- NOTE | 2019-07-10 12:29 | CONSULT ---
Consult - text type - Consultation Consultation Note: Renal consult for ESRD on HD This is a 83 year old woman with history of ESRD on HD, DM (not currently on medications), hypertension, PVD, chronic diarrhea, current smoker who presented from home with complaints of fall w/o LOC and generalized weakness. Pt was in the ER yesterday with complaints of generalized weakness. Last dialysis was Monday. Denies any chest pain, shortness of breath, fever or chills. No leg swelling. Denies any palpitations. PMhx: as above Allergies: NKDA Family Hx: NC Social Hx: No T/A/D ROS: as per HPI, all other pertinent ros negative Home Medications Medication Instructions Recorded Alprazolam [Xanax] 0.25 mg PO BID PRN 02/19/19 Aspirin [ASA -] 81 mg PO DAILY 02/19/19 Atorvastatin Ca [Lipitor] 10 mg PO HS 02/19/19 Calcitriol [Calcitriol -] 0.25 mcg PO DAILY 02/19/19 Calcium Acetate 667 mg PO TID 02/19/19 Carvedilol [Coreg -] 6.25 mg PO BID 02/19/19 Acetaminophen [Tylenol .Regular 650 mg PO Q6H PRN tablet 04/19/19 Strength -] Ferrous Sulfate 325 mg PO BID 05/25/19 Losartan Potassium [Cozaar -] 50 mg PO DAILY #90 tablet 05/28/19 Nifedipine ER [Procardia XL -] 120 mg PO DAILY #180 tab.er.24 05/28/19 Amitriptyline HCl [Elavil -] 50 mg PO HS #30 tablet 06/07/19 Sevelamer Carbonate [Renvela -] 1,600 mg PO TIDCM tab 06/07/19 Cholestyramine/Aspartame [Questran 4 gm PO BID packet 07/05/19 Light Packet -] Vital Signs Temperature 97.3 F L 07/10/19 10:26 Pulse Rate 82 07/10/19 10:26 Respiratory Rate 16 07/10/19 10:26 Blood Pressure 183/90 H 07/10/19 10:26 O2 Sat by Pulse Oximetry (%) 99 07/10/19 10:26 Intake & Output 07/07/19 07/08/19 07/09/19 07/10/19 23:59 23:59 23:59 23:59 Weight 54.431 kg NAD awake and alert neck supple RRR CTA soft NT/ND no LE edema Right IJ tunneled HD catheter Labs pending 07/09/19 07/09/19 12:05 12:05 Hgb 13.0 Hct 40.2 Plt Count Potassium 4.8 Carbon Dioxide 20 L BUN 66.0 H Creatinine 8.3 H* Calcium Phosphorus Magnesium Albumin Thyroxine (T4) 83 year old woman with history of ESRD on HD, DM (not currently on medications) , hypertension, PVD, chronic diarrhea, current smoker who presented from home with complaints of fall w/o LOC and generalized weakness. 1. Generalized weakness 2. Fall w/o LOC 3. ESRD on HD 4. Hypertension Pt to be admitted for fall and weakness as per ED will arrange HD as inpatient once pt is admitted Social work evalulation Hgb at goal no JACOB needed Renal diet with 1.2L fluid restriction Continue Nifedpine ER, Losartan and Coreg for hypertension Thank you Will follow Quentin Goyal DO
[2019-07-10 12:57] LABS: EPI CELLS 1.4 /HPF (0-5/HPF); HYALINE CASTS 3 /lpf (0-8); PH,URINE 7.5 (5.0-8.0); URINE APPEARANCE CLEAR; URINE BACTERIA 6.4 /hpf (NEGATIVE); URINE BILIRUBIN NEGATIVE (NEGATIVE); URINE COLOR YELLOW; URINE GLUCOSE (UA) 2+ (NEGATIVE); URINE KETONE NEGATIVE (NEGATIVE); URINE LEUK ESTERASE NEGATIVE (NEGATIVE); URINE NITRITE NEGATIVE (NEGATIVE); URINE PROTEIN 4+ (NEGATIVE); URINE RBC 1 /hpf (0-4); URINE UROBILINOGEN 0.2 mg/dL (0.2-1.0); URINE WBC 1 /hpf (0-5)
[2019-07-10 13:08] LABS: BASO % 1.1 % (0-2.0); EOS % 4.3 % (0-4.5); HEMATOCRIT 36.7 % (32.4-45.2); HEMOGLOBIN 11.7 GM/dL (10.7-15.3); LYMPH % 20.4 % (8-40); MEAN CELL VOLUME 93.9 fl (80-96); MEAN PLT VOLUME 8.3 fl (7.5-11.1); MONO % 7.7 % (3.8-10.2); NEUT % 66.5 % (42.8-82.8); PLATELET COUNT 272 K/MM3 (134-434); RBC 3.91 M/mm3 (3.60-5.2); RDW 16.4 % (11.6-15.6); WHITE BLOOD COUNT 7.1 K/mm3 (4.0-10.0)
[2019-07-10 13:43] LABS: ALBUMIN 3.3 g/dl (3.4-5.0); ALK PHOS 80 U/L (45-117); ANION GAP 11 MMOL/L (8-16); BILIRUBIN,TOTAL 0.2 mg/dL (0.2-1); BLOOD UREA NITROGEN 73.9 mg/dL (7-18); CALCIUM 8.5 mg/dL (8.5-10.1); CHLORIDE 105 mmol/L (98-107); CO2 20 mmol/L (21-32); GLUCOSE,RANDOM 87 mg/dL (74-106); MAGNESIUM 2.7 mg/dL (1.8-2.4); POTASSIUM 4.9 mmol/L (3.5-5.1); SGOT/AST 14 U/L (15-37); SGPT/ALT 20 U/L (13-61); SODIUM 136 mmol/L (136-145); TOT PROT 6.9 g/dl (6.4-8.2)
[2019-07-10 13:57] LABS: CREATININE 9.1 mg/dL (0.55-1.3)
--- NOTE | 2019-07-10 14:56 | HP ---
Admitting History and Physical - Primary Care Physician PCP: Angela Barahona S - Admission Chief Complaint: weakness, missed hemodialysis History Source: Patient Limitations to Obtaining History: Uncooperative (history know to tech writer from previos admissions) - Past Medical History Cardiovascular: Yes: HTN, Hyperlipdemia, Murmur, Other (PAD) Pulmonary: Yes: Asthma, COPD Hepatobiliary: Yes: Cholelithiasis, Choledocholithiasis Renal/: Yes: Renal Inusuff, Hemodialysis Heme/Onc: Yes: Anemia Infectious Disease: Yes: Other (history of osteomyelitis in the past) Endocrine: Yes: Diabetes Mellitus - Past Surgical History Past Surgical History: Yes: Amputation (1-st R toe amputation), Bypass (Right fem pop bypass) - Smoking History Smoking history: Never smoked Have you smoked in the past 12 months: Yes Aproximately how many cigarettes per day: 30 If you are a former smoker, when did you quit?: 08/10/2012 - Alcohol/Substance Use Hx Alcohol Use: No History of Substance Use: reports: None - Social History Usual Living Arrangement: Yes: Alone ADL: Support Services 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, 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, 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 Travel: No Home Medications - Allergies Allergies/Adverse Reactions: Allergies Allergy/AdvReac Type Severity Reaction Status Date / Time iodine Allergy Rash Verified 07/10/19 10:26 penicillin V Allergy Verified 07/10/19 10:26 shellfish derived Allergy Rash Verified 07/10/19 10:26 vancomycin Allergy Verified 07/10/19 10:26 azithromycin AdvReac Verified 07/10/19 10:26 - Home Medications Home Medications: Ambulatory Orders Alprazolam [Xanax] 0.25 mg PO BID PRN 02/19/19 Aspirin [ASA -] 81 mg PO DAILY 02/19/19 Atorvastatin Ca [Lipitor] 10 mg PO HS 02/19/19 Calcitriol [Calcitriol -] 0.25 mcg PO DAILY 02/19/19 Calcium Acetate 667 mg PO TID 02/19/19 Carvedilol [Coreg -] 6.25 mg PO BID 02/19/19 Acetaminophen [Tylenol .Regular Strength -] 650 mg PO Q6H PRN tablet 04/19/19 Ferrous Sulfate 325 mg PO BID 05/25/19 Losartan Potassium [Cozaar -] 50 mg PO DAILY #90 tablet 05/28/19 Nifedipine ER [Procardia XL -] 120 mg PO DAILY #180 tab.er.24 05/28/19 Amitriptyline HCl [Elavil -] 50 mg PO HS #30 tablet 06/07/19 Sevelamer Carbonate [Renvela -] 1,600 mg PO TIDCM tab 06/07/19 Cholestyramine/Aspartame [Questran Light Packet -] 4 gm PO BID packet 07/05/19 Family Medical History Family History: Unable to Obtain (uncooper) Family Hx Cancer: Mother (lung Ca), Father (lung Ca), Sister (lung Ca) Review of Systems - Review of Systems Constitutional: reports: Lethargy, Weakness Eyes: reports: No Symptoms HENT: reports: No Symptoms Neck: reports: No Symptoms Cardiovascular: reports: No Symptoms Respiratory: reports: No Symptoms Gastrointestinal: reports: Nausea Genitourinary: reports: No Symptoms Breasts: reports: No Symptoms Reported Musculoskeletal: reports: Muscle Weakness Integumentary: reports: No Symptoms Neurological: reports: Weakness Endocrine: reports: No Symptoms Hematology/Lymphatic: reports: No Symptoms Psychiatric: reports: No Symptoms Physical Examination Vital Signs: Vital Signs Temperature 97.3 F L 07/10/19 10:26 Pulse Rate 93 H 07/10/19 14:40 Respiratory Rate 18 07/10/19 14:40 Blood Pressure 164/77 07/10/19 14:40 O2 Sat by Pulse Oximetry (%) 95 07/10/19 14:40 Constitutional: Yes: Anxious, Thin Eyes: Yes: WNL, Conjunctiva Clear, EOM Intact HENT: Yes: WNL, Atraumatic, Normocephalic Neck: Yes: WNL, Supple, Trachea Midline Cardiovascular: Yes: WNL, Regular Rate and Rhythm, Other (RIJ permacath intact) Respiratory: Yes: WNL, Regular, CTA Bilaterally Gastrointestinal: Yes: WNL, Normal Bowel Sounds ...Rectal Exam: Yes: Deferred Renal/: Yes: WNL Breast(s): Yes: WNL Musculoskeletal: Yes: Muscle Weakness Extremities: Yes: WNL, Other Edema: No Peripheral Pulses WNL: Yes Peripheral Pulses: Left Radial: 2+, Right Radial: 2+, Left Doralis Pedis: 2+, Right Dorsalis Pedis: 2+, Left Femoral: 2+, Right Femoral: 2+ Integumentary: Yes: WNL Neurological: Yes: WNL, Alert, Oriented ...Motor Strength: LLE, RLE (weakness) Psychiatric: Yes: Alert Labs: CBC, BMP 07/10/19 12:50 07/10/19 12:50 Imaging - Results Chest X-ray: Image Reviewed (no acute pathology/no cganed from CXR fronm 2 days ago) Problem List - Problems (1) Diarrhea Assessment/Plan: history of diarrhea in between HD sessions Code(s): R19.7 - DIARRHEA, UNSPECIFIED (2) ESRD (end stage renal disease) on dialysis Assessment/Plan: HD schedule for today appreciate Dr Goyal recomendations Code(s): N18.6 - END STAGE RENAL DISEASE; Z99.2 - DEPENDENCE ON RENAL DIALYSIS (3) Missed dialysis Assessment/Plan: patient refused to go to HD center today and call EMS to transport to ED recurring missed sessions at HD center Social work/case management seeing pt Code(s): ETH9750 - (4) Uremia Assessment/Plan: HD as per schedule Code(s): N19 - UNSPECIFIED KIDNEY FAILURE (5) Weakness Assessment/Plan: generalized weakness PT request placed Code(s): R53.1 - WEAKNESS (6) Frequent hospital admissions Assessment/Plan: multiple admission to ED/hospital due to 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 Medicaid application pending-submitted by ROSSY at HD center yesterday Code(s): Z78.9 - OTHER SPECIFIED HEALTH STATUS Visit type - Emergency Visit Emergency Visit: Yes ED Registration Date: 07/10/19 Care time: The patient presented to the Emergency Department on the above date and was hospitalized for further evaluation of their emergent condition. - New Patient This patient is new to me today: Yes Date on this admission: 07/10/19 - Critical Care Critical Care patient: No
--- NOTE | 2019-07-10 15:19 | EKG ---
Test Reason : Blood Pressure : / mmHG Vent. Rate : 093 BPM Atrial Rate : 093 BPM P-R Int : 176 ms QRS Dur : 096 ms QT Int : 370 ms P-R-T Axes : 028 039 003 degrees QTc Int : 460 ms NORMAL SINUS RHYTHM NORMAL ECG WHEN COMPARED WITH ECG OF 09-JUL-2019 13:00, NONSPECIFIC T WAVE ABNORMALITY, WORSE IN INFERIOR LEADS Confirmed by JERRY HEBERT MD ([id number]) on 07/10/2019 3:18:45 PM Referred By: Confirmed By:JERRY HEBERT MD
[2019-07-10] MEDS ORDERED: ACETAMINOPHEN 325 MG TABLET (FP) PO PRN (15:51)
[2019-07-10] MEDS: SEVELAMER CARBONATE 800 MG TAB (FP) PO SCH (19:00)
[2019-07-10] MEDS: ALPRAZolam 0.25 MG TABLET PO PRN (19:27)
[2019-07-10] MEDS: ATORVASTATIN CA 10 MG TABLET (FP) PO SCH (22:28)
[2019-07-10] MEDS: CARVEDILOL 6.25 MG TABLET (FP) PO SCH (22:28)
[2019-07-10] MEDS: AMITRIPTYLINE HCL 25 MG TABLET (FP) PO SCH (22:28)
[2019-07-10] MEDS: CHOLESTYRAMINE/ASPARTAME 4 GM PACKET PO SCH (22:38)
[2019-07-10] MEDS: HEPARIN NA (PORCINE) 5,000 UNITS/ML 1ML VIAL SQ SCH (22:38)
[2019-07-11] MEDS: CHOLESTYRAMINE/ASPARTAME 4 GM PACKET PO SCH ×3 (00:05→21:36)
[2019-07-11] MEDS: HYDROCORTISONE 2.5% TOPICAL CREAM 30 GM TUBE TP SCH (06:17)
[2019-07-11] MEDS ORDERED: MAG HYDROX/AL HYDROX/SIMETH 30 ML UNIT-DOSE CUP PO ONE (06:43)
[2019-07-11] MEDS ORDERED: ONDANSETRON 4 MG TABLET PO ONE (07:03)
[2019-07-11] MEDS: SEVELAMER CARBONATE 800 MG TAB (FP) PO SCH ×3 (08:04→17:02)
[2019-07-11] MEDS: CALCIUM ACETATE 667 MG CAPSULE (FP) PO SCH ×3 (08:04→17:02)
[2019-07-11 08:13] LABS: EOS % 4.5 % (0-4.5); HEMATOCRIT 38.5 % (32.4-45.2); HEMOGLOBIN 12.8 GM/dL (10.7-15.3); LYMPH % 20.4 % (8-40); MCH 30.6 pg (25.7-33.7); MCHC 33.1 g/dl (32.0-36.0); MEAN CELL VOLUME 92.4 fl (80-96); MEAN PLT VOLUME 8.1 fl (7.5-11.1); MONO % 9.7 % (3.8-10.2); NEUT % 64.4 % (42.8-82.8); PLATELET COUNT 287 K/MM3 (134-434); RBC 4.16 M/mm3 (3.60-5.2); RDW 16.6 % (11.6-15.6); WHITE BLOOD COUNT 5.4 K/mm3 (4.0-10.0)
[2019-07-11 08:38] LABS: BLOOD UREA NITROGEN 24.7 mg/dL (7-18); CALCIUM 8.2 mg/dL (8.5-10.1); CREATININE 4.7 mg/dL (0.55-1.3); MAGNESIUM 2.3 mg/dL (1.8-2.4); PHOSPHOROUS 4.4 mg/dL (2.5-4.9)
[2019-07-11] MEDS ORDERED: PT OWN MED DRAWER 7, Y5N ONE (09:14)
[2019-07-11] MEDS: NIFEdipine E.R 60 MG TABLET (UD) PO SCH (09:53)
[2019-07-11] MEDS: CARVEDILOL 6.25 MG TABLET (FP) PO SCH ×2 (09:53→21:36)
[2019-07-11] MEDS: LOSARTAN POTASSIUM 50 MG TABLET (FP) PO SCH (09:53)
[2019-07-11] MEDS: ASPIRIN 81 MG CHEWABLE TABLETS PO SCH (09:54)
[2019-07-11] MEDS: CALCITRIOL 0.25 MCG CAPSULE (FP) PO SCH (09:54)
[2019-07-11] MEDS: HEPARIN NA (PORCINE) 5,000 UNITS/ML 1ML VIAL SQ SCH ×2 (09:55→21:35)
[2019-07-11] MEDS ORDERED: NIFEdipine E.R 60 MG TABLET (UD) PO SCH (10:00)
[2019-07-11] MEDS: ALPRAZolam 0.25 MG TABLET PO PRN (10:07)
--- NOTE | 2019-07-11 10:41 | PN ---
Physical Exam: SUBJECTIVE: Patient seen and examined at the bedside. feels well, tolerating room air and in no acute distress. multiple admissions for missing dialysis but tells me she wants to continue dialysis and wants to live. previously wanted to stop dialysis altogether and (on last admission), but has changed her mind. she does not want to live home by herself anymore because feels weak , and had a recent fall. denies hitting her head. OBJECTIVE: Patient is an 83 year old female with significant past medical history of HTN, ESRD on HD (MWF), femoral bypass, DM , PVD, OA, anemia, chronic diarrhea, anxiety, daily smoking who presents to the ED with s/p fall. Patient states that when she woke up to go to the bathroom at home she felt generally weak and her legs gave out and she fell to her knees. Denies head strike, denies LOC. Patient endorses she was too weak to get back up by herself so she crawled to the living room and called EMS. Patient is requesting admission to the hospital for dialysis and is concerned that she is too weak to go home and feels too weak to ambulate. SW following for possible placement, however patient was denied short term rehab on last admission. Vital Signs Period Temp Pulse Resp BP Sys/Banuelos Pulse Ox Last 24 Hr 97.6 F-98.2 F 84-98 18-22 157-192/74-106 93-95 GENERAL: Awake, alert, and fully oriented HEAD: Normal with no signs of trauma. EYES: Pupils equal, round and reactive to light, extraocular movements intact, sclera anicteric, conjunctiva clear. No lid lag. EARS, NOSE, THROAT: Ears normal, nares patent, oropharynx clear without exudates. Moist mucous membranes. NECK: Normal range of motion, supple without lymphadenopathy, JVD, or masses. HEART: Regular rate and rhythm ABDOMEN: Soft, nontender, not distended, normoactive bowel sounds, no guarding, no rebound, no masses. No hepatomegaly or splenomegaly. MUSCULOSKELETAL: Normal range of motion at all joints. No bony deformities or tenderness. No CVA tenderness. UPPER EXTREMITIES: No peripheral edema. LOWER EXTREMITIES: No peripheral edema. NEUROLOGICAL: Normal speech. ambulates with RW SKIN: Warm, dry, normal turgor, no rashes or lesions noted, normal capillary refill. Laboratory Results - last 24 hr 07/10/19 07/10/19 07/10/19 12:45 12:50 12:50 WBC 7.1 RBC 3.91 Hgb 11.7 Hct 36.7 MCV 93.9 MCH 30.0 MCHC 32.0 RDW 16.4 H Plt Count 272 MPV 8.3 Absolute Neuts (auto) 4.7 Neutrophils % 66.5 Lymphocytes % 20.4 Monocytes % 7.7 Eosinophils % 4.3 Basophils % 1.1 Nucleated RBC % 0 Sodium 136 Potassium 4.9 Chloride 105 Carbon Dioxide 20 L Anion Gap 11 BUN 73.9 H Creatinine 9.1 H* Est GFR (CKD-EPI)AfAm 4.24 Est GFR (CKD-EPI)NonAf 3.66 POC Glucometer Random Glucose 87 Calcium 8.5 Phosphorus Magnesium 2.7 H Total Bilirubin 0.2 AST 14 L ALT 20 Alkaline Phosphatase 80 Troponin I < 0.02 Total Protein 6.9 Albumin 3.3 L Urine Color Yellow Urine Appearance Clear Urine pH 7.5 Ur Specific [place] 1.016 Urine Protein 4+ H Urine Glucose (UA) 2+ H Urine Ketones Negative Urine Blood Negative Urine Nitrite Negative Urine Bilirubin Negative Urine Urobilinogen 0.2 Ur Leukocyte Esterase Negative Urine WBC (Auto) 1 Urine RBC (Auto) 1 Urine Casts (Auto) 3 U Epithel Cells (Auto) 1.4 Urine Bacteria (Auto) 6.4 07/10/19 07/11/19 07/11/19 17:50 05:46 07:40 WBC 5.4 RBC 4.16 Hgb 12.8 Hct 38.5 MCV 92.4 MCH 30.6 MCHC 33.1 RDW 16.6 H Plt Count 287 MPV 8.1 Absolute Neuts (auto) 3.5 Neutrophils % 64.4 Lymphocytes % 20.4 Monocytes % 9.7 Eosinophils % 4.5 Basophils % 1.0 Nucleated RBC % 0 Sodium Potassium Chloride Carbon Dioxide Anion Gap BUN Creatinine Est GFR (CKD-EPI)AfAm Est GFR (CKD-EPI)NonAf POC Glucometer 62 76 Random Glucose Calcium Phosphorus Magnesium Total Bilirubin AST ALT Alkaline Phosphatase Troponin I Total Protein Albumin Urine Color Urine Appearance Urine pH Ur Specific [place] Urine Protein Urine Glucose (UA) Urine Ketones Urine Blood Urine Nitrite Urine Bilirubin Urine Urobilinogen Ur Leukocyte Esterase Urine WBC (Auto) Urine RBC (Auto) Urine Casts (Auto) U Epithel Cells (Auto) Urine Bacteria (Auto) 07/11/19 07:40 WBC RBC Hgb Hct MCV MCH MCHC RDW Plt Count MPV Absolute Neuts (auto) Neutrophils % Lymphocytes % Monocytes % Eosinophils % Basophils % Nucleated RBC % Sodium 139 Potassium 4.0 Chloride 104 Carbon Dioxide 28 Anion Gap 7 L BUN 24.7 H Creatinine 4.7 H Est GFR (CKD-EPI)AfAm 9.42 Est GFR (CKD-EPI)NonAf 8.13 POC Glucometer Random Glucose 91 Calcium 8.2 L Phosphorus 4.4 Magnesium 2.3 Total Bilirubin AST ALT Alkaline Phosphatase Troponin I Total Protein Albumin Urine Color Urine Appearance Urine pH Ur Specific [place] Urine Protein Urine Glucose (UA) Urine Ketones Urine Blood Urine Nitrite Urine Bilirubin Urine Urobilinogen Ur Leukocyte Esterase Urine WBC (Auto) Urine RBC (Auto) Urine Casts (Auto) U Epithel Cells (Auto) Urine Bacteria (Auto) Active Medications Generic Name Dose Route Start Last Admin Trade Name Freq PRN Reason Stop Dose Admin Acetaminophen 650 mg 07/10/19 15:51 07/10/19 22:28 Tylenol - PO 650 mg Q6H PRN Administration FEVER Alprazolam 0.25 mg 07/10/19 15:51 07/11/19 10:07 Xanax - PO 0.25 mg BID PRN Administration ANXIETY Amitriptyline HCl 50 mg 07/10/19 22:00 07/10/19 22:28 Elavil - PO 50 mg HS BEATRIZ Administration Aspirin 81 mg 07/11/19 10:00 07/11/19 09:54 Asa - PO 81 mg DAILY BEATRIZ Administration Atorvastatin Calcium 10 mg 07/10/19 22:00 07/10/19 22:28 Lipitor - PO Not Given HS BEATRIZ Calcitriol 0.25 mcg 07/11/19 10:00 07/11/19 09:54 Rocaltrol - PO 0.25 mcg DAILY BEATRIZ Administration Calcium Acetate 667 mg 07/11/19 08:00 07/11/19 08:04 Phoslo - PO Not Given TIDCM BEATRIZ Carvedilol 6.25 mg 07/10/19 22:00 07/11/19 09:53 Coreg - PO 6.25 mg BID BEATRIZ Administration Cholestyramine Resin 4 gm 07/10/19 22:00 07/11/19 09:53 Questran Light Packet - PO 4 gm BID BEATRIZ Administration Ferrous Sulfate 325 mg 07/11/19 18:00 Feosol - PO BIDWM BEATRIZ Heparin Sodium (Porcine) 5,000 unit 07/10/19 22:00 07/11/19 09:55 Heparin - SQ 5,000 unit BID BEATRIZ Administration Hydrocortisone 1 applic 07/11/19 00:45 07/11/19 06:17 Anusol 2.5% Hc Cream - TP 1 applic ONCE BEATRIZ Administration Sodium Chloride 250 mls @ 3,000 mls/hr 07/10/19 12:29 Normal Saline - IV 07/11/19 12:29 PRN PRN Hypotension during Dialysis Losartan Potassium 50 mg 07/11/19 10:00 07/11/19 09:53 Cozaar - PO 50 mg DAILY BEATRIZ Administration Nifedipine 120 mg 07/11/19 10:00 07/11/19 09:53 Procardia Xl - PO 120 mg DAILY BEATRIZ Administration Sevelamer Carbonate 1,600 mg 07/10/19 17:30 07/11/19 08:04 Renvela - PO Not Given TIDCM BEATRIZ ASSESSMENT/PLAN: Problem List - Problems (1) Frequent hospital admissions Assessment/Plan: frequent admission for missing HD appts. per patient, she is too weak to go to HD. She is picked up by paratransit for dialysis but misses appt 2/2 to weakness. Recently admitted for missing HD and was sent home after she was denied by her insurance for short term rehab. Sw following. Code(s): Z78.9 - OTHER SPECIFIED HEALTH STATUS (2) ESRD (end stage renal disease) on dialysis Assessment/Plan: dialysis via right chest shiley per renal Code(s): N18.6 - END STAGE RENAL DISEASE; Z99.2 - DEPENDENCE ON RENAL DIALYSIS (3) Fall Assessment/Plan: physical therapy evaluation Code(s): W19.XXXA - UNSPECIFIED FALL, INITIAL ENCOUNTER (4) HTN (hypertension) Assessment/Plan: monitor and continue home medications. may need uptitration if bp remains elevated Code(s): I10 - ESSENTIAL (PRIMARY) HYPERTENSION Qualifiers: Hypertension type: unspecified Qualified Code(s): I10 - Essential (primary ) hypertension (5) Anxiety Assessment/Plan: on tid dosing of xanax. Code(s): F41.9 - ANXIETY DISORDER, UNSPECIFIED Visit type - Emergency Visit Emergency Visit: Yes ED Registration Date: 07/10/19 Care time: The patient presented to the Emergency Department on the above date and was hospitalized for further evaluation of their emergent condition. - New Patient This patient is new to me today: Yes Date on this admission: 07/11/19 - Critical Care Critical Care patient: No - Discharge Referral Referred to [facility] No
[2019-07-11] MEDS ORDERED: ALPRAZolam 0.25 MG TABLET PO PRN (10:42)
[2019-07-11] MEDS ORDERED: ONDANSETRON 4 MG/2 ML VIAL IVPUSH PRN (11:04)
[2019-07-11] MEDS ORDERED: ONDANSETRON 8 MG TABLET (FP) PO PRN (11:12)
[2019-07-11] MEDS ORDERED: SODIUM CHLORIDE 250 ML IV PRN (16:27)
[2019-07-11] MEDS: FERROUS SO4 325 MG TABLET (FP) PO SCH (17:02)
[2019-07-11] MEDS: AMITRIPTYLINE HCL 25 MG TABLET (FP) PO SCH (21:36)
[2019-07-11] MEDS: ATORVASTATIN CA 10 MG TABLET (FP) PO SCH (21:36)
[2019-07-12] MEDS: HYDROCORTISONE 2.5% TOPICAL CREAM 30 GM TUBE TP SCH (01:59)
[2019-07-12 07:28] LABS: EOS % 6.4 % (0-4.5); HEMATOCRIT 35.4 % (32.4-45.2); HEMOGLOBIN 11.9 GM/dL (10.7-15.3); LYMPH % 27.3 % (8-40); MCH 31.1 pg (25.7-33.7); MCHC 33.5 g/dl (32.0-36.0); MEAN CELL VOLUME 92.8 fl (80-96); MEAN PLT VOLUME 8.4 fl (7.5-11.1); MONO % 10.9 % (3.8-10.2); NEUT % 54.4 % (42.8-82.8); PLATELET COUNT 273 K/MM3 (134-434); RBC 3.82 M/mm3 (3.60-5.2); RDW 16.6 % (11.6-15.6); WHITE BLOOD COUNT 5.9 K/mm3 (4.0-10.0)
[2019-07-12 08:18] LABS: BILIRUBIN,TOTAL 0.2 mg/dL (0.2-1); BLOOD UREA NITROGEN 40.6 mg/dL (7-18); CALCIUM 8.2 mg/dL (8.5-10.1); CREATININE 6.7 mg/dL (0.55-1.3); MAGNESIUM 2.3 mg/dL (1.8-2.4); POTASSIUM 4.5 mmol/L (3.5-5.1); TOT PROT 6.4 g/dl (6.4-8.2)
--- NOTE | 2019-07-12 09:40 | DS ---
Physical Exam: SUBJECTIVE: Patient seen and examined at the bedside. feels well, tolerating room air and in no acute distress, eating well overall. multiple admissions for missing dialysis but tells me she wants to continue dialysis and wants to live. She previously expressed wishes to stop dialysis altogether and (on last admission), but has changed her mind. she does not want to live home by herself anymore because feels weak, and had a recent fall. denies hitting her head. OBJECTIVE: Patient is an 83 year old female with significant past medical history of HTN, ESRD on HD (MWF-via right shiley catheter), femoral bypass, DM , PVD, OA, anemia , chronic diarrhea, anxiety, daily smoking who presents to the ED with s/p fall. Patient states that when she woke up to go to the bathroom at home she felt generally weak and her legs gave out and she fell to her knees. Denies head trauma, denies LOC. Patient endorses she was too weak to get back up by herself so she crawled to the living room and called EMS. Patient requested admission to the hospital for dialysis and is concerned that she is too weak to go home and feels too weak to ambulate. SW following for possible placement, however patient was denied short term rehab on last admission and does not presently have any available rehab days. Patient stable for d/c. Discussed with SW and MIKE sent for possible placement options. Vital Signs Period Temp Pulse Resp BP Sys/Banuelos Pulse Ox Last 24 Hr 97.6 F-99.3 F 73-90 18-18 129-164/65-85 98 PHYSICAL EXAM GENERAL: Awake, alert, and fully oriented HEAD: Normal with no signs of trauma. EYES: Pupils equal, round and reactive to light, extraocular movements intact, sclera anicteric, conjunctiva clear. No lid lag. EARS, NOSE, THROAT: Ears normal, nares patent, oropharynx clear without exudates. Moist mucous membranes. NECK: Normal range of motion, supple without lymphadenopathy, JVD, or masses. HEART: Regular rate and rhythm LUNGs:clear to auscultation bilaterlly, tolerating room air. ABDOMEN: Soft, nontender, not distended, normoactive bowel sounds, no guarding, no rebound, no masses. No hepatomegaly or splenomegaly. MUSCULOSKELETAL: Normal range of motion at all joints. No bony deformities or tenderness. No CVA tenderness. UPPER EXTREMITIES: No peripheral edema. LOWER EXTREMITIES: No peripheral edema. NEUROLOGICAL: Normal speech. ambulates with RW SKIN: Warm, dry, normal turgor, no rashes or lesions noted, normal capillary refill. LABS Laboratory Results - last 24 hr 07/11/19 07/12/19 07/12/19 11:39 06:42 06:42 WBC 5.9 RBC 3.82 Hgb 11.9 Hct 35.4 MCV 92.8 MCH 31.1 MCHC 33.5 RDW 16.6 H Plt Count 273 MPV 8.4 Absolute Neuts (auto) 3.2 Neutrophils % 54.4 Lymphocytes % 27.3 D Monocytes % 10.9 H Eosinophils % 6.4 H Basophils % 1.0 Nucleated RBC % 0 Sodium 138 Potassium 4.5 Chloride 104 Carbon Dioxide 25 Anion Gap 9 BUN 40.6 H Creatinine 6.7 H Est GFR (CKD-EPI)AfAm 6.14 Est GFR (CKD-EPI)NonAf 5.29 POC Glucometer 139 Random Glucose 99 Calcium 8.2 L Magnesium 2.3 Total Bilirubin 0.2 AST 13 L ALT 17 Alkaline Phosphatase 76 Total Protein 6.4 Albumin 3.0 L HOSPITAL COURSE: Date of Admission:07/10/19 Date of Discharge: 07/12/19 Minutes to complete discharge: 45 Discharge Summary Problems reviewed: Yes Reason For Visit: WEAKNESS Current Active Problems Anxiety (Acute) Frequent hospital admissions (Acute) Condition: Improved - Instructions Diet, Activity, Other Instructions: Mrs Clearly: You will be discharged today after dialysis. Please continue dialysis at your home center. Please continue all the medications as ordered in your discharge instructions. If you have any questions, please call me at the number listed below. thank you Lea Romero NP [facility] [phone] Referrals: Angela Barahona [Primary Care Provider] - Disposition: [facility] FACILITY - Home Medications Comprehensive Discharge Medication List: Ambulatory Orders Alprazolam [Xanax] 0.25 mg PO BID PRN 02/19/19 Aspirin [ASA -] 81 mg PO DAILY 02/19/19 Atorvastatin Ca [Lipitor] 10 mg PO HS 02/19/19 Calcitriol [Calcitriol -] 0.25 mcg PO DAILY 02/19/19 Calcium Acetate 667 mg PO TID 02/19/19 Carvedilol [Coreg -] 6.25 mg PO BID 02/19/19 Acetaminophen [Tylenol .Regular Strength -] 650 mg PO Q6H PRN tablet 04/19/19 Ferrous Sulfate 325 mg PO BID 05/25/19 Losartan Potassium [Cozaar -] 50 mg PO DAILY #90 tablet 05/28/19 Nifedipine ER [Procardia XL -] 120 mg PO DAILY #180 tab.er.24 05/28/19 Amitriptyline HCl [Elavil -] 50 mg PO HS #30 tablet 06/07/19 Sevelamer Carbonate [Renvela -] 1,600 mg PO TIDCM tab 06/07/19 Cholestyramine/Aspartame [Questran Light Packet -] 4 gm PO BID packet 07/05/19 Ondansetron [Zofran -] 4 mg PO BID PRN tablet 07/12/19 Problem List - Problems (1) Frequent hospital admissions Assessment/Plan: frequent admission for missing HD appts. per patient, she is too weak to go to HD. She is picked up by par[facility]rans[facility] for dialysis but misses appt 2/2 to weakness. Recently admitted for missing HD and was sent home after she was denied by her insurance for short term rehab. PT notes reviewed. Sw following. will order RW for home use. Code(s): Z78.9 - OTHER SPECIFIED HEALTH STATUS (2) ESRD (end stage renal disease) on dialysis Assessment/Plan: dialysis via right chest shiley per renal. dialysis today. Code(s): N18.6 - END STAGE RENAL DISEASE; Z99.2 - DEPENDENCE ON RENAL DIALYSIS (3) Fall Assessment/Plan: physical therapy evaluation daily. home with PT v outpatient. Code(s): W19.XXXA - UNSPECIFIED FALL, INITIAL ENCOUNTER (4) HTN (hypertension) Assessment/Plan: monitor and continue home medications. may need uptitration if bp remains elevated. Code(s): I10 - ESSENTIAL (PRIMARY) HYPERTENSION Qualifiers: Hypertension type: unspecified Qualified Code(s): I10 - Essential (primary ) hypertension (5) Anxiety Assessment/Plan: on tid dosing of xanax. Code(s): F41.9 - ANXIETY DISORDER, UNSPECIFIED This patient is new to me today: No Emergency Visit: Yes ED Registration Date: 07/10/19 Care time: The patient presented to the Emergency Department on the above date and was hospitalized for further evaluation of their emergent condition. Critical Care patient: No - Discharge Referral Referred to [facility] No
[2019-07-12] MEDS: FERROUS SO4 325 MG TABLET (FP) PO SCH ×2 (09:50→18:17)
[2019-07-12] MEDS: CALCIUM ACETATE 667 MG CAPSULE (FP) PO SCH ×3 (09:50→18:17)
[2019-07-12] MEDS: SEVELAMER CARBONATE 800 MG TAB (FP) PO SCH ×3 (09:50→18:18)
[2019-07-12 10:05] LABS: PHOSPHOROUS 5.4 mg/dL (2.5-4.9)
[2019-07-12 14:10] VITALS: TEMP 97.9
[2019-07-12] MEDS: NIFEdipine E.R 60 MG TABLET (UD) PO SCH (14:22)
[2019-07-12] MEDS: CARVEDILOL 6.25 MG TABLET (FP) PO SCH (14:23)
[2019-07-12] MEDS: CHOLESTYRAMINE/ASPARTAME 4 GM PACKET PO SCH (14:23)
[2019-07-12] MEDS: LOSARTAN POTASSIUM 50 MG TABLET (FP) PO SCH (14:23)
[2019-07-12] MEDS: ASPIRIN 81 MG CHEWABLE TABLETS PO SCH (14:23)
[2019-07-12] MEDS: HEPARIN NA (PORCINE) 5,000 UNITS/ML 1ML VIAL SQ SCH (14:25)
[2019-07-12] MEDS: CALCITRIOL 0.25 MCG CAPSULE (FP) PO SCH (14:25)
--- NOTE | 2019-07-12 15:17 | PN ---
Progress Note (short form) - Note Progress Note: Renal follow up for ESRD on HD Seen and examined at the bedside awake and alert s/p HD this am, terminated 15 mins early due to nausea no sob, cp for discharge today Vital Signs Temperature 97.9 F 07/12/19 14:00 Pulse Rate 85 07/12/19 14:00 Respiratory Rate 20 07/12/19 14:00 Blood Pressure 199/94 H 07/12/19 14:00 O2 Sat by Pulse Oximetry (%) 100 07/12/19 09:00 Intake & Output 07/09/19 07/10/19 07/11/19 07/12/19 23:59 23:59 23:59 23:59 Intake Total 800 270 650 Output Total 2400 1690 Balance -1600 270 -1040 Weight 54.431 kg 48.852 kg 49.13 kg NAD RRR CTA soft NT/ND no LE edema Right IJ tunneled HD catheter CBC, BMP 07/12/19 06:42 07/12/19 06:42 Current Medications Acetaminophen (Tylenol -) 650 mg PO Q6H PRN PRN Reason: FEVER Last Admin: 07/10/19 22:28 Dose: 650 mg Alprazolam (Xanax -) 0.25 mg PO Q8H PRN PRN Reason: ANXIETY Last Admin: 07/11/19 21:52 Dose: 0.25 mg Amitriptyline HCl (Elavil -) 50 mg PO HS [facility] Last Admin: 07/11/19 21:36 Dose: 50 mg Aspirin (Asa -) 81 mg PO DAILY [facility] Last Admin: 07/12/19 14:23 Dose: 81 mg Atorvastatin Calcium (Lipitor -) 10 mg PO HS [facility] Last Admin: 07/11/19 21:36 Dose: 10 mg Calcitriol (Rocaltrol -) 0.25 mcg PO DAILY [facility] Last Admin: 07/12/19 14:25 Dose: 0.25 mcg Calcium Acetate (Phoslo -) 667 mg PO TIDCM [facility] Last Admin: 07/12/19 14:25 Dose: 667 mg Carvedilol (Coreg -) 6.25 mg PO BID [facility] Last Admin: 07/12/19 14:23 Dose: 6.25 mg Cholestyramine Resin (Questran Light Packet -) 4 gm PO BID [facility] Last Admin: 07/12/19 14:23 Dose: 4 gm Ferrous Sulfate (Feosol -) 325 mg PO BIDWM [facility] Last Admin: 07/12/19 09:50 Dose: Not Given Heparin Sodium (Porcine) (Heparin -) 5,000 unit SQ BID [facility] Last Admin: 07/12/19 14:25 Dose: Not Given Hydrocortisone (Anusol 2.5% Hc Cream -) 1 applic TP ONCE [facility] Last Admin: 07/12/19 01:59 Dose: Not Given Sodium Chloride (Normal Saline -) 250 mls @ 3,000 mls/hr IV PRN PRN PRN Reason: Hypotension during Dialysis Stop: 07/12/19 16:27 Losartan Potassium (Cozaar -) 50 mg PO DAILY [facility] Last Admin: 07/12/19 14:23 Dose: 50 mg Nifedipine (Procardia Xl -) 120 mg PO DAILY [facility] Last Admin: 07/12/19 14:22 Dose: 120 mg Ondansetron HCl (Zofran -) 4 mg PO BID PRN PRN Reason: NAUSEA AND/OR VOMITING Sevelamer Carbonate (Renvela -) 1,600 mg PO TIDCM [facility] Last Admin: 07/12/19 14:23 Dose: Not Given 83 year old woman with history of ESRD on HD, DM (not currently on medications) , hypertension, PVD, chronic diarrhea, current smoker who presented from home with complaints of fall w/o LOC and generalized weakness. 1. Generalized weakness 2. Fall w/o LOC 3. ESRD on HD 4. Hypertension Tolerated HD well next planned dialysis is Monday for discharge home with VNS services Quentin Goyal DO
[2019-07-12 18:03] VITALS: BP 127/79; PULSE 89
== END 2019-07-12 19:45 | disposition home or self-care (01) | DRG 682 ==
LOC: JER 10:25 → JERBED 12:22 → OBSVTOIN 15:48 → J7W 16:14
PROVIDERS: ADMIT Internal Medicine; ATTEND Nurse Practitioner Family
PROC: 5A1D70Z Performance of Urinary Filtration, Intermittent, Less than 6 Hours Per Day (ICD-10-PCS; principal; 2019-07-10)
PROC: 5A1D70Z Performance of Urinary Filtration, Intermittent, Less than 6 Hours Per Day (ICD-10-PCS; 2019-07-12)
DX: I12.0 Hypertensive chronic kidney disease with stage 5 chronic kidney disease or end stage renal disease (principal); N18.6 End stage renal disease; E11.51 Type 2 diabetes mellitus with diabetic peripheral angiopathy without gangrene; E11.22 Type 2 diabetes mellitus with diabetic chronic kidney disease; R19.7 Diarrhea, unspecified; E78.5 Hyperlipidemia, unspecified; J44.9 Chronic obstructive pulmonary disease, unspecified; D64.9 Anemia, unspecified; I25.10 Atherosclerotic heart disease of native coronary artery without angina pectoris; K80.20 Calculus of gallbladder without cholecystitis without obstruction; E78.00 Pure hypercholesterolemia, unspecified; F41.9 Anxiety disorder, unspecified; R53.1 Weakness; Z99.2 Dependence on renal dialysis; Z89.421 Acquired absence of other right toe(s); Z78.9 Other specified health status
CPT/HCPCS: 36415; 71045-TC-FY; 80048; 80053; 81003; 82962; 83735; 84100; 84484; 85025; 87086; 93005; 93010; 97116-GP; 97162-GP; 99284-25; G0378; J1644

== ENCOUNTER 2019-07-17 10:32 | Inpatient (IN) | payer OTHER ==
[2019-07-17 11:01] VITALS: BMI 19.7
--- NOTE | 2019-07-17 12:15 | PDOC ---
History of Present Illness - General Chief Complaint: Weakness Stated Complaint: Weakness Time Seen by Provider: 07/17/19 11:22 History Source: Patient Exam Limitations: No Limitations - History of Present Illness Initial Comments: 07/17/19 12:15 83-year-old female brought in by ambulance well-known to this ED (seen here 6 times this month) with history of hypertension, ESRD on HD Monday (M,W,F) diabetes, anemia, anxiety presents to the ED complaining of weakness on and off for 1 year worsening over the past 2 days. Last dialyzed on July 12. States she was at this ED 2 days ago and was "thrown out". Denies chest pain, shortness of breath, fever, chills, cough, body aches, abdominal pain, urinary complaints or any other symptoms. Patient lives alone. ROS: GENERAL/CONSTITUTIONAL: Weakness, no fever, chills, dizziness HEAD, EYES, EARS, NOSE AND THROAT: No changes in vision, No ear pain or discharge, No sore throat CARDIOVASCULAR: No chest pain RESPIRATORY: No shortness of breath or cough GASTROINTESTINAL: No pain, nausea, vomiting, diarrhea or constipation GENITOURINARY: No dysuria MUSCULOSKELETAL: No neck or back pain SKIN: No rash NEUROLOGIC: No headache, vertigo, loss of consciousness, or loss of sensation PE: GENERAL: well-appearing, NAD, edentulous HEAD: NCAT EYES: Pupils equal, round and reactive to light, sclera anicteric, conjunctiva clear ENT: pharynx: no erythema, no exudate, uvula midline NECK: supple CHEST: nontender, dialysis port to right upper chest wall RESP: clear, no w/r/r CARDIO: rrr, no m/g/r ABD: +BS, soft, nontender, non distended BACK: no midline spinal ttp, no CVAT EXTREMITIES: Normal range of motion, no edema NEUROLOGICAL: Normal speech SKIN: Warm, Dry 07/17/19 16:02 Past History - Past Medical History Allergies/Adverse Reactions: Allergies Allergy/AdvReac Type Severity Reaction Status Date / Time iodine Allergy Rash Verified 07/17/19 11:01 penicillin V Allergy Verified 07/17/19 11:01 shellfish derived Allergy Rash Verified 07/17/19 11:01 vancomycin Allergy Verified 07/17/19 11:01 azithromycin AdvReac Verified 07/17/19 11:01 Home Medications: Ambulatory Orders Alprazolam [Xanax] 0.25 mg PO BID PRN 02/19/19 Aspirin [ASA -] 81 mg PO DAILY 02/19/19 Atorvastatin Ca [Lipitor] 10 mg PO HS 02/19/19 Calcitriol [Calcitriol -] 0.25 mcg PO DAILY 02/19/19 Calcium Acetate 667 mg PO TID 02/19/19 Carvedilol [Coreg -] 6.25 mg PO BID 02/19/19 Acetaminophen [Tylenol .Regular Strength -] 650 mg PO Q6H PRN tablet 04/19/19 Ferrous Sulfate 325 mg PO BID 05/25/19 Losartan Potassium [Cozaar -] 50 mg PO DAILY #90 tablet 05/28/19 Nifedipine ER [Procardia XL -] 120 mg PO DAILY #180 tab.er.24 05/28/19 Amitriptyline HCl [Elavil -] 50 mg PO HS #30 tablet 06/07/19 Sevelamer Carbonate [Renvela -] 1,600 mg PO TIDCM tab 06/07/19 Cholestyramine/Aspartame [Questran Light Packet -] 4 gm PO BID packet 07/05/19 Ondansetron [Zofran -] 4 mg PO BID PRN tablet 07/12/19 Walker [Ultra-Light Rollator] 1 each MC DAILY #1 each 07/12/19 Anemia: Yes Asthma: Yes Cancer: No Cardiac Disorders: Yes (PAD,CAD, PVD) CVA: No COPD: Yes CHF: No DVT: No Dementia: No Diabetes: Yes Dialysis: Yes (M,W,F R SUBCLAVIN PORT) GI Disorders: Yes (chronic diarrhea) Disorders: No HTN: Yes Hypercholesterolemia: Yes Liver Disease: No Seizures: No Thyroid Disease: No - Surgical History Abdominal Surgery: No Appendectomy: No Cardiac Surgery: Yes (FEMORAL BYPASS) Cholecystectomy: Yes Lung Surgery: No Neurologic Surgery: No Orthopedic Surgery: Yes (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) - Immunization History Td Vaccination: Yes TDAP Vaccination: Yes Immunization Up to Date: Yes - Psycho Social/Smoking Cessation Hx Smoking Status: Yes Smoking History: Never smoked Have you smoked in the past 12 months: No Number of Cigarettes Smoked Daily: 30 If you are a former smoker, when did you quit?: 08/10/2012 Cigars Per Day: 30 Information on smoking cessation initiated: No 'Breaking Loose' booklet given: 06/28/19 Hx Alcohol Use: No Drug/Substance Use Hx: No Substance Use Type: None Hx Substance Use Treatment: No *Physical Exam - Vital Signs Last Vital Signs Temp Pulse Resp BP Pulse Ox 97.6 F 88 16 144/68 100 07/17/19 10:32 07/17/19 10:32 07/17/19 10:32 07/17/19 10:32 07/17/19 10:32 ED Treatment Course - LABORATORY CBC & Chemistry Diagram: 07/17/19 12:31 07/17/19 12:31 - RADIOLOGY Radiology Studies Ordered: Category Date Time Status CHEST PA & LAT [RAD] Stat Radiology 07/17/19 11:34 Ordered Medical Decision Making - Medical Decision Making 07/17/19 12:20 83-year-old female with history of ESRD on HD, last dialysis July 12, diabetes, hypertension, anxiety presents complaining of generalized weakness. Will order labs EKG, chest x-ray, UA Reassess 07/17/19 13:56 ECG heart rate 87 bpm, normal sinus, no ST or T wave changes Potassium 6.8 Cr 9 Ordered lokelma, regular insulin 5 units IV, glucose D50 x2 Reassess 07/17/19 16:04 Her power press supervisor is Dr. Jay Jay Saavedra whom I spoke to and agreed upon admitting her to the hospital for dialysis. Sj Centeno has spoken to and the hospitalist. The plan is to admit the patient. Discharge - Discharge Information Problems reviewed: Yes Clinical Impression/Diagnosis: Weakness Condition: Stable - Follow up/Referral Referrals: Angela Barahona [Primary Care Provider] - - Patient Discharge Instructions - Post Discharge Activity
--- NOTE | 2019-07-17 12:28 | PDOC ---
*Physical Exam - Vital Signs Last Vital Signs Temp Pulse Resp BP Pulse Ox 97.6 F 88 16 144/68 100 07/17/19 10:32 07/17/19 10:32 07/17/19 10:32 07/17/19 10:32 07/17/19 10:32 - Physical Exam Comments: 07/17/19 12:27 The patient was examined by [RAYMOND Apple] under my direct supervision. I personally evaluated the patient. I concur with the above findings and the plan of care. ED Treatment Course - LABORATORY CBC & Chemistry Diagram: 07/17/19 12:31 07/17/19 12:31 Discharge - Discharge Information Problems reviewed: Yes Clinical Impression/Diagnosis: Weakness, ESRD (end stage renal disease) on dialysis, Hyperkalemia Condition: Fair - Admission Yes - Follow up/Referral Referrals: Angela Barahona [Primary Care Provider] - - Patient Discharge Instructions - Post Discharge Activity
[2019-07-17 12:47] LABS: EOS % 4.9 % (0-4.5); HEMATOCRIT 35.6 % (32.4-45.2); HEMOGLOBIN 11.8 GM/dL (10.7-15.3); LYMPH % 19.8 % (8-40); MCH 30.5 pg (25.7-33.7); MCHC 33.1 g/dl (32.0-36.0); MEAN CELL VOLUME 92.3 fl (80-96); MEAN PLT VOLUME 8.5 fl (7.5-11.1); MONO % 6.2 % (3.8-10.2); NEUT % 68.1 % (42.8-82.8); PLATELET COUNT 246 K/MM3 (134-434); RBC 3.85 M/mm3 (3.60-5.2); RDW 16.2 % (11.6-15.6); WHITE BLOOD COUNT 8.6 K/mm3 (4.0-10.0)
[2019-07-17 13:04] LABS: INR 0.9 (0.83-1.09); PROTHROMBIN TIME (PATIENT) 10.6 SEC (9.7-13.0)
[2019-07-17 13:06] LABS: ACTIVATED PTT 43.1 SECONDS (25.2-36.5)
[2019-07-17 13:12] LABS: ALBUMIN 3.4 g/dl (3.4-5.0); BILIRUBIN,TOTAL 0.4 mg/dL (0.2-1); BLOOD UREA NITROGEN 78.9 mg/dL (7-18); CALCIUM 8.7 mg/dL (8.5-10.1); TOT PROT 7.3 g/dl (6.4-8.2)
[2019-07-17 13:14] LABS: POTASSIUM 6.8 mmol/L (3.5-5.1)
[2019-07-17] MEDS ORDERED: INSULIN REGULAR HUMAN 100 UNITS/ML *VIAL IVPUSH ONE (13:54)
[2019-07-17] MEDS ORDERED: DEXTROSE 50%-WATER - 25 GM/50 ML VIAL IVPUSH ONE ×2 (13:54→13:55)
[2019-07-17] MEDS: SODIUM ZIRCONIUM CYCLOSILICATE (LOKELMA) 5 GM PACKET PO SCH (14:30)
[2019-07-17] MEDS ORDERED: SODIUM CHLORIDE 250 ML IV PRN (14:47)
--- NOTE | 2019-07-17 14:56 | EKG ---
Test Reason : Blood Pressure : / mmHG Vent. Rate : 087 BPM Atrial Rate : 087 BPM P-R Int : 182 ms QRS Dur : 096 ms QT Int : 378 ms P-R-T Axes : 049 056 059 degrees QTc Int : 454 ms NORMAL SINUS RHYTHM NORMAL ECG WHEN COMPARED WITH ECG OF 10-JUL-2019 12:30, NONSPECIFIC T WAVE ABNORMALITY NO LONGER EVIDENT IN INFERIOR LEADS Confirmed by ANUP DC, JERRY ([id number]) on 07/17/2019 2:55:40 PM Referred By: Confirmed By:JERRY HEBERT MD
[2019-07-17] MEDS ORDERED: ONDANSETRON 4 MG/2 ML VIAL IVPUSH ONE (16:14)
[2019-07-17] MEDS ORDERED: ACETAMINOPHEN 325 MG TABLET (FP) PO PRN (22:00)
[2019-07-17] MEDS: AMITRIPTYLINE HCL 25 MG TABLET (FP) PO SCH (23:16)
[2019-07-17] MEDS: CHOLESTYRAMINE/ASPARTAME 4 GM PACKET PO SCH (23:16)
[2019-07-17] MEDS: ATORVASTATIN CA 10 MG TABLET (FP) PO SCH (23:17)
[2019-07-17] MEDS: FERROUS SO4 325 MG TABLET (FP) PO SCH (23:17)
[2019-07-17] MEDS: CARVEDILOL 6.25 MG TABLET (FP) PO SCH (23:17)
[2019-07-17] MEDS: ALPRAZolam 0.25 MG TABLET PO PRN (23:18)
[2019-07-17] MEDS: CALCIUM ACETATE 667 MG CAPSULE (FP) PO SCH (23:18)
--- NOTE | 2019-07-18 06:51 | HP ---
Admitting History and Physical - Primary Care Physician PCP: Angela Barahona S - Admission Chief Complaint: weakness History of Present Illness: 83-year-old female brought in by ambulance well-known to this ED (seen here 6 times this month) with history of hypertension, ESRD on HD Monday (M,W,F) diabetes, anemia, anxiety presents to the ED complaining of weakness on and off for 1 year worsening over the past 2 days. Last dialyzed on July 12. She missed her scheduled dialysis because she said she was too weak to go to the center. Denies chest pain, shortness of breath, fever, chills, cough, body aches, abdominal pain, urinary complaints or any other symptoms. Patient lives alone and has no relatives and no friends. . History Source: Patient Limitations to Obtaining History: No Limitations - Past Medical History Cardiovascular: Yes: HTN, Hyperlipdemia, Murmur, Other (PAD) Pulmonary: Yes: Asthma, COPD Hepatobiliary: Yes: Cholelithiasis, Choledocholithiasis Renal/: Yes: Renal Inusuff, Hemodialysis ...: No Heme/Onc: Yes: Anemia Infectious Disease: Yes: Other (history of osteomyelitis in the past) Endocrine: Yes: Diabetes Mellitus - Past Surgical History Past Surgical History: Yes: Amputation (1-st R toe amputation), Bypass (Right fem pop bypass) - Smoking History Smoking history: Former smoker Have you smoked in the past 12 months: No Aproximately how many cigarettes per day: 30 If you are a former smoker, when did you quit?: 08/10/2012 - Alcohol/Substance Use Hx Alcohol Use: No History of Substance Use: reports: None - Social History Usual Living Arrangement: Yes: Alone ADL: Support Services 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, 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, 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 Travel: No Home Medications - Allergies Allergies/Adverse Reactions: Allergies Allergy/AdvReac Type Severity Reaction Status Date / Time iodine Allergy Rash Verified 07/17/19 11:01 penicillin V Allergy Verified 07/17/19 11:01 shellfish derived Allergy Rash Verified 07/17/19 11:01 vancomycin Allergy Verified 07/17/19 11:01 azithromycin AdvReac Verified 07/17/19 11:01 - Home Medications Home Medications: Ambulatory Orders Alprazolam [Xanax] 0.25 mg PO BID PRN 02/19/19 Aspirin [ASA -] 81 mg PO DAILY 02/19/19 Atorvastatin Ca [Lipitor] 10 mg PO HS 02/19/19 Calcitriol [Calcitriol -] 0.25 mcg PO DAILY 02/19/19 Calcium Acetate 667 mg PO TID 02/19/19 Carvedilol [Coreg -] 6.25 mg PO BID 02/19/19 Acetaminophen [Tylenol .Regular Strength -] 650 mg PO Q6H PRN tablet 04/19/19 Ferrous Sulfate 325 mg PO BID 05/25/19 Losartan Potassium [Cozaar -] 50 mg PO DAILY #90 tablet 05/28/19 Nifedipine ER [Procardia XL -] 120 mg PO DAILY #180 tab.er.24 05/28/19 Amitriptyline HCl [Elavil -] 50 mg PO HS #30 tablet 06/07/19 Sevelamer Carbonate [Renvela -] 1,600 mg PO TIDCM tab 06/07/19 Cholestyramine/Aspartame [Questran Light Packet -] 4 gm PO BID packet 07/05/19 Ondansetron [Zofran -] 4 mg PO BID PRN tablet 07/12/19 Walker [Ultra-Light Rollator] 1 each MC DAILY #1 each 07/12/19 Family Medical History Family History: Unremarkable Review of Systems - Review of Systems Constitutional: reports: Weakness. denies: Fever, Lethargy Eyes: denies: Blind Spots, Blurred Vision HENT: denies: Difficult Swallowing Neck: denies: Decreased ROM Cardiovascular: denies: Chest Pain, Shortness of Breath Respiratory: denies: Cough Gastrointestinal: denies: Abdominal Pain Genitourinary: denies: Dysuria Musculoskeletal: denies: Back Pain Neurological: reports: Unsteady Gait, Weakness Endocrine: denies: Unexplained Weight Loss Hematology/Lymphatic: denies: Easily Bruised, Excessive Bleeding Psychiatric: reports: Anxiety. denies: Suicidal Physical Examination Vital Signs: Vital Signs Temperature 97.7 F 07/18/19 06:04 Pulse Rate 83 07/18/19 06:04 Respiratory Rate 18 07/18/19 06:04 Blood Pressure 186/94 H 07/18/19 06:04 O2 Sat by Pulse Oximetry (%) 98 07/17/19 21:00 Constitutional: Yes: No Distress, Anxious Eyes: Yes: Conjunctiva Clear HENT: Yes: Atraumatic Neck: Yes: Supple Cardiovascular: Yes: Regular Rate and Rhythm Respiratory: Yes: CTA Bilaterally Gastrointestinal: Yes: Soft. No: Tenderness Renal/: No: Hematuria Musculoskeletal: No: Joint Stiffness, Joint Swelling Extremities: No: Cold, Cool Edema: No Integumentary: No: Rash, Venous Stasis Changes Neurological: Yes: WNL, Alert, Oriented ...Motor Strength: WNL Psychiatric: Yes: WNL, Alert, Oriented. No: Agitated, Suicidal Ideation Labs: CBC, BMP 07/17/19 12:31 07/17/19 12:31 Imaging - Results Other: Report Reviewed Assessment/Plan 83-year-old female brought in by ambulance well-known to this ED (seen here 6 times this month) with history of hypertension, ESRD on HD Monday (M,W,F) diabetes, anemia, anxiety presents to the ED complaining of weakness on and off for 1 year worsening over the past 2 days. Last dialyzed on July 12. Missed again her scheduled dialysis because being too weak. In ER found to have K 7 and creat 10 admitted for emergent dialysis needs usp placement in a NH with dialysis abilities - d/w pt, she previously refused usp NH but said that now she will reconsider it; will d /w CM falls PFX d/w pt do not get OOB alone decubs pfx turn in bed q1-2 h d/w pt and staff
[2019-07-18 08:45] LABS: BLOOD UREA NITROGEN 23.7 mg/dL (7-18); CALCIUM 8.6 mg/dL (8.5-10.1); CREATININE 4.6 mg/dL (0.55-1.3); POTASSIUM 4.5 mmol/L (3.5-5.1)
[2019-07-18] MEDS: LOSARTAN POTASSIUM 50 MG TABLET (FP) PO SCH (10:11)
[2019-07-18] MEDS: CALCIUM ACETATE 667 MG CAPSULE (FP) PO SCH ×3 (10:11→17:33)
[2019-07-18] MEDS: CARVEDILOL 6.25 MG TABLET (FP) PO SCH ×2 (10:11→22:01)
[2019-07-18] MEDS: ASPIRIN 81 MG CHEWABLE TABLETS PO SCH (10:11)
[2019-07-18] MEDS: NIFEdipine E.R 60 MG TABLET (UD) PO SCH (10:11)
[2019-07-18] MEDS: FERROUS SO4 325 MG TABLET (FP) PO SCH ×2 (10:11→22:01)
[2019-07-18] MEDS: CHOLESTYRAMINE/ASPARTAME 4 GM PACKET PO SCH ×2 (10:12→22:02)
[2019-07-18] MEDS: CALCITRIOL 0.25 MCG CAPSULE (FP) PO SCH (10:12)
[2019-07-18] MEDS: HEPARIN NA (PORCINE) 5,000 UNITS/ML 1ML VIAL SQ SCH ×2 (10:12→22:00)
[2019-07-18] MEDS: SEVELAMER CARBONATE 800 MG TAB (FP) PO SCH ×3 (10:12→17:33)
[2019-07-18] MEDS: SODIUM ZIRCONIUM CYCLOSILICATE (LOKELMA) 5 GM PACKET PO SCH (10:12)
--- NOTE | 2019-07-18 11:45 | CONSULT ---
Consult Consult Specialty:: Nephrology ( [facility]/ Jay Jay) Reason for Consultation:: patient has ESRD, missed dialysis for several weeks - History of Present Illness Chief Complaint: Weakness and inability to move History of Present Illness: This is an 83-year-old female brought in by ambulance with history of hypertension, ESRD on HD ,diabetes mellitus, Anemia of CKD, and anxiety disorder. The patient presents to the ED complaining of weakness worsening over the past 2 days. Last dialyzed on July 12. The patient has the habit of skipping dialysis frequently.Denies chest pain, fever, chills, cough, body aches, abdominal pain, urinary complaints or any other symptoms. - History Source History Provided By: Patient Limitations to Obtaining History: No Limitations - Past Medical History Cardio/Vascular: Yes: HTN, Hyperlipdemia, Murmur, Other (PAD) Pulmonary: Yes: Asthma, COPD, Other (Smokes cigarettes ) Hepatobiliary: Yes: Cholelithiasis, Choledocholithiasis Renal/: Yes: Renal Inusuff, Hemodialysis ...: No Infectious Disease: Yes: Other (history of osteomyelitis in the past) Endocrine: Yes: Diabetes Mellitus - Past Surgical History Past Surgical History: Yes: Amputation (1-st R toe amputation), Bypass (Right fem pop bypass) - Alcohol/Substance Use Hx Alcohol Use: No History of Substance Use: reports: None - Smoking History Smoking history: Former smoker Have you smoked in the past 12 months: No Aproximately how many cigarettes per day: 30 If you are a former smoker, when did you quit?: 08/10/2012 - Social History Usual Living Arrangement: Alone ADL: Support Services 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, 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, 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 Travel: No Home Medications - Allergies Allergies/Adverse Reactions: Allergies Allergy/AdvReac Type Severity Reaction Status Date / Time iodine Allergy Rash Verified 07/17/19 11:01 penicillin V Allergy Verified 07/17/19 11:01 shellfish derived Allergy Rash Verified 07/17/19 11:01 vancomycin Allergy Verified 07/17/19 11:01 azithromycin AdvReac Verified 07/17/19 11:01 - Home Medications Home Medications: Ambulatory Orders Alprazolam [Xanax] 0.25 mg PO BID PRN 02/19/19 Aspirin [ASA -] 81 mg PO DAILY 02/19/19 Atorvastatin Ca [Lipitor] 10 mg PO HS 02/19/19 Calcitriol [Calcitriol -] 0.25 mcg PO DAILY 02/19/19 Calcium Acetate 667 mg PO TID 02/19/19 Carvedilol [Coreg -] 6.25 mg PO BID 02/19/19 Acetaminophen [Tylenol .Regular Strength -] 650 mg PO Q6H PRN tablet 04/19/19 Ferrous Sulfate 325 mg PO BID 05/25/19 Losartan Potassium [Cozaar -] 50 mg PO DAILY #90 tablet 05/28/19 Nifedipine ER [Procardia XL -] 120 mg PO DAILY #180 tab.er.24 05/28/19 Amitriptyline HCl [Elavil -] 50 mg PO HS #30 tablet 06/07/19 Sevelamer Carbonate [Renvela -] 1,600 mg PO TIDCM tab 06/07/19 Cholestyramine/Aspartame [Questran Light Packet -] 4 gm PO BID packet 07/05/19 Ondansetron [Zofran -] 4 mg PO BID PRN tablet 07/12/19 Walker [Ultra-Light Rollator] 1 each MC DAILY #1 each 07/12/19 Family Medical History Family History: Denies Review of Systems - Review of Systems Constitutional: reports: Weakness Neck: reports: No Symptoms Cardiovascular: denies: Chest Pain, Edema, Palpitations Respiratory: denies: Cough Gastrointestinal: denies: Abdominal Pain Musculoskeletal: reports: Back Pain, Joint Pain Neurological: reports: Weakness. denies: Change in LOC, Numbness Endocrine: reports: Excessive Sweating Physical Exam Vital Signs: Vital Signs Temperature 97.7 F 07/18/19 06:04 Pulse Rate 83 07/18/19 06:04 Respiratory Rate 18 07/18/19 06:04 Blood Pressure 186/94 H 07/18/19 06:04 O2 Sat by Pulse Oximetry (%) 98 07/17/19 21:00 Constitutional: Yes: No Distress, Anxious Eyes: Yes: Conjunctiva Clear HENT: Yes: Normocephalic Neck: Yes: Trachea Midline Cardiovascular: Yes: Regular Rate and Rhythm Respiratory: Yes: CTA Bilaterally Gastrointestinal: Yes: Normal Bowel Sounds, Soft Renal/: No: Bladder Distention, CVA Tenderness - Left, CVA Tenderness - Right Extremities: No: Calf Tenderness Edema: No Wound/Incision: Yes: Well Approximated Neurological: Yes: Alert, Oriented Labs: CBC, BMP 07/17/19 12:31 07/18/19 06:54 Assessment/Plan This is an 83-year-old female brought in by ambulance with history of hypertension, ESRD on HD ,diabetes mellitus, Anemia of CKD, and anxiety disorder. The patient presents to the ED complaining of weakness worsening over the past 2 days. The patient has the habit of skipping dialysis frequently.Denies chest pain, fever, chills, cough, body aches, abdominal pain, urinary complaints or any other symptoms. Hyperkalemia, Uremia. The patient skipped HD consecutively for several sessions. Received emergency dialysis yesterday night. The patient very stubborn about the "way she wants to come for dialysis". Will give another HD tomorrow. Thank you. Cristela Canales MD
[2019-07-18] MEDS: ALPRAZolam 0.25 MG TABLET PO PRN (17:33)
[2019-07-18] MEDS: AMITRIPTYLINE HCL 25 MG TABLET (FP) PO SCH (22:00)
[2019-07-18] MEDS: ATORVASTATIN CA 10 MG TABLET (FP) PO SCH (22:01)
[2019-07-19] MEDS: ONDANSETRON 4 MG TABLET PO PRN (00:53)
[2019-07-19] MEDS: CALCIUM ACETATE 667 MG CAPSULE (FP) PO SCH ×3 (08:01→19:25)
[2019-07-19] MEDS: SEVELAMER CARBONATE 800 MG TAB (FP) PO SCH ×3 (08:02→19:41)
--- NOTE | 2019-07-19 08:30 | PN ---
Progress Note, Physician Chief Complaint: in bed awake alert NAD seems upset after talking to renal dr and trimming caser but she said she understands the need to go to longterm MI and she will think about it - Current Medication List Current Medications: Active Medications Acetaminophen (Tylenol -) 650 mg PO Q6H PRN PRN Reason: FEVER Alprazolam (Xanax -) 0.25 mg PO BID PRN PRN Reason: ANXIETY Last Admin: 07/18/19 17:33 Dose: 0.25 mg Amitriptyline HCl (Elavil -) 50 mg PO HS [facility] Last Admin: 07/18/19 22:00 Dose: 50 mg Aspirin (Asa -) 81 mg PO DAILY [facility] Last Admin: 07/18/19 10:11 Dose: 81 mg Atorvastatin Calcium (Lipitor -) 10 mg PO HS [facility] Last Admin: 07/18/19 22:01 Dose: 10 mg Calcitriol (Rocaltrol -) 0.25 mcg PO DAILY [facility] Last Admin: 07/18/19 10:12 Dose: 0.25 mcg Calcium Acetate (Phoslo -) 667 mg PO TIDCM [facility] Last Admin: 07/19/19 08:01 Dose: 667 mg Carvedilol (Coreg -) 6.25 mg PO BID [facility] Last Admin: 07/18/19 22:01 Dose: 6.25 mg Cholestyramine Resin (Questran Light Packet -) 4 gm PO BID [facility] Last Admin: 07/18/19 22:02 Dose: 4 gm Ferrous Sulfate (Feosol -) 325 mg PO BID [facility] Last Admin: 07/18/19 22:01 Dose: 325 mg Heparin Sodium (Porcine) (Heparin -) 5,000 unit SQ BID [facility] Last Admin: 07/18/19 22:00 Dose: 5,000 unit Sodium Chloride (Normal Saline -) 250 mls @ 3,000 mls/hr IV PRN PRN PRN Reason: Hypotension during Dialysis Stop: 07/18/19 14:48 Losartan Potassium (Cozaar -) 50 mg PO DAILY [facility] Last Admin: 07/18/19 10:11 Dose: 50 mg Nifedipine (Procardia Xl -) 120 mg PO DAILY [facility] Last Admin: 07/18/19 10:11 Dose: 120 mg Ondansetron HCl (Zofran -) 4 mg PO BID PRN PRN Reason: NAUSEA AND/OR VOMITING Last Admin: 07/19/19 00:53 Dose: 4 mg Sevelamer Carbonate (Renvela -) 1,600 mg PO TIDCM [facility] Last Admin: 07/19/19 08:02 Dose: 1,600 mg Sodium Zirconium Cyclosilicate (Lokelma) 10 gm PO DAILY [facility] Last Admin: 07/18/19 10:12 Dose: 10 gm - Objective Vital Signs: Vital Signs Temperature 97.5 F L 07/19/19 06:04 Pulse Rate 74 07/19/19 06:04 Respiratory Rate 18 07/19/19 06:04 Blood Pressure 185/84 H 07/19/19 06:04 O2 Sat by Pulse Oximetry (%) 95 07/18/19 21:00 Constitutional: Yes: No Distress Eyes: Yes: Conjunctiva Clear HENT: Yes: Atraumatic Neck: Yes: Supple Cardiovascular: Yes: Regular Rate and Rhythm Respiratory: Yes: CTA Bilaterally Gastrointestinal: Yes: Soft. No: Tenderness Genitourinary: No: Hematuria Musculoskeletal: No: Joint Stiffness, Joint Swelling Extremities: No: Cold, Cool, Cyanosis Edema: No Integumentary: No: Rash, Venous Stasis Changes Neurological: Yes: WNL, Alert, Oriented ...Motor Strength: WNL Psychiatric: Yes: WNL, Alert, Oriented. No: Agitated, Suicidal Ideation Labs: CBC, BMP 07/17/19 12:31 07/18/19 06:54 INR, PTT INR 0.90 (0.83-1.09) 07/17/19 12:31 - ....Imaging Other: Report Reviewed Assessment/Plan 83-year-old female brought in by ambulance well-known to this ED (seen here 6 times this month) with history of hypertension, ESRD on HD Monday (M,W,F) diabetes, anemia, anxiety presents to the ED complaining of weakness on and off for 1 year worsening over the past 2 days. Last dialyzed on July 12. Missed again her scheduled dialysis because being too weak. In ER found to have K 7 and creat 10 admitted for emergent dialysis needs longterm placement in a NH with dialysis abilities - d/w CM falls PFX d/w pt do not get OOB alone decubs pfx turn in bed q1-2 h d/w pt and staff
[2019-07-19] MEDS: FERROUS SO4 325 MG TABLET (FP) PO SCH ×2 (10:25→21:29)
[2019-07-19] MEDS: ASPIRIN 81 MG CHEWABLE TABLETS PO SCH (10:25)
[2019-07-19] MEDS: NIFEdipine E.R 60 MG TABLET (UD) PO SCH ×2 (10:25→19:27)
[2019-07-19] MEDS: LOSARTAN POTASSIUM 50 MG TABLET (FP) PO SCH (10:25)
[2019-07-19] MEDS: CHOLESTYRAMINE/ASPARTAME 4 GM PACKET PO SCH ×2 (10:26→21:40)
[2019-07-19] MEDS: CARVEDILOL 6.25 MG TABLET (FP) PO SCH ×2 (10:26→21:30)
[2019-07-19] MEDS: HEPARIN NA (PORCINE) 5,000 UNITS/ML 1ML VIAL SQ SCH ×2 (10:27→21:30)
[2019-07-19] MEDS ORDERED: PT OWN MED DRAWER 7, Y5N ONE ×2 (11:38→20:34)
[2019-07-19] MEDS: CALCITRIOL 0.25 MCG CAPSULE (FP) PO SCH (12:17)
[2019-07-19] MEDS: ALPRAZolam 0.25 MG TABLET PO PRN ×2 (12:17→21:29)
--- NOTE | 2019-07-19 13:28 | CONSULT ---
Consult - text type - Consultation Consultation Note: Renal follow up for ESRD on HD Seen and examined at the bedside she is very upset about her current home/living situation she had dialysis on Monday night in the ED she denies any sob, cp, abd pain, fever or chills feels very weak Vital Signs Temperature 98.1 F 07/19/19 09:00 Pulse Rate 70 07/19/19 09:00 Respiratory Rate 18 07/19/19 09:00 Blood Pressure 140/70 07/19/19 09:00 O2 Sat by Pulse Oximetry (%) 95 07/19/19 09:00 Intake & Output 07/16/19 07/17/19 07/18/19 07/19/19 23:59 23:59 23:59 23:59 Intake Total 850 580 500 Output Total 1500 1500 Balance -650 580 -1000 Weight 48.988 kg 49.351 kg NAD awake and alert no LE edema Right IJ tunneled HD catheter, no discharge or erythemia CBC, BMP 07/17/19 12:31 07/18/19 06:54 Current Medications Acetaminophen (Tylenol -) 650 mg PO Q6H PRN PRN Reason: FEVER Alprazolam (Xanax -) 0.25 mg PO BID PRN PRN Reason: ANXIETY Last Admin: 07/19/19 12:17 Dose: 0.25 mg Amitriptyline HCl (Elavil -) 50 mg PO HS [facility] Last Admin: 07/18/19 22:00 Dose: 50 mg Aspirin (Asa -) 81 mg PO DAILY [facility] Last Admin: 07/19/19 10:25 Dose: 81 mg Atorvastatin Calcium (Lipitor -) 10 mg PO HS [facility] Last Admin: 07/18/19 22:01 Dose: 10 mg Calcitriol (Rocaltrol -) 0.25 mcg PO DAILY [facility] Last Admin: 07/19/19 12:17 Dose: 0.25 mcg Calcium Acetate (Phoslo -) 667 mg PO TIDCM [facility] Last Admin: 07/19/19 12:16 Dose: 667 mg Carvedilol (Coreg -) 6.25 mg PO BID [facility] Last Admin: 07/19/19 10:26 Dose: 6.25 mg Cholestyramine Resin (Questran Light Packet -) 4 gm PO BID [facility] Last Admin: 07/19/19 10:26 Dose: 4 gm Ferrous Sulfate (Feosol -) 325 mg PO BID [facility] Last Admin: 07/19/19 10:25 Dose: 325 mg Heparin Sodium (Porcine) (Heparin -) 5,000 unit SQ BID [facility] Last Admin: 07/19/19 10:27 Dose: 5,000 unit Sodium Chloride (Normal Saline -) 250 mls @ 3,000 mls/hr IV PRN PRN PRN Reason: Hypotension during Dialysis Stop: 07/18/19 14:48 Losartan Potassium (Cozaar -) 50 mg PO DAILY [facility] Last Admin: 07/19/19 10:25 Dose: 50 mg Nifedipine (Procardia Xl -) 120 mg PO DAILY [facility] Last Admin: 07/18/19 10:11 Dose: 120 mg Ondansetron HCl (Zofran -) 4 mg PO BID PRN PRN Reason: NAUSEA AND/OR VOMITING Last Admin: 07/19/19 00:53 Dose: 4 mg Sevelamer Carbonate (Renvela -) 1,600 mg PO TIDCM [facility] Last Admin: 07/19/19 12:17 Dose: Not Given Sodium Zirconium Cyclosilicate (Lokelma) 10 gm PO DAILY [facility] Last Admin: 07/18/19 10:12 Dose: 10 gm 83 year old woman wit history of ESRD on HD, current smoker, DM not on meds, hypertension, renal osteodystrophy who presented from home with complaints of weakness. 1. ESRD on HD 2. Generalized weakness 3. Hypertension 4. Renal osteodystrophy 5. Hyperkalemia due to dialysis non-compliance For dialysis today with UF as tolerated will continue HD 3x weekly, next treatment on Monday. Renal diet Physical therapy evaluation continue supportive care Social work to look into possible placement Thank you Quentin Goyal DO
[2019-07-19 16:12] LABS: BASO % 0.8 % (0-2.0); EOS % 8.6 % (0-4.5); HEMATOCRIT 34.2 % (32.4-45.2); LYMPH % 25.1 % (8-40); MCH 30.3 pg (25.7-33.7); MCHC 32.3 g/dl (32.0-36.0); MEAN PLT VOLUME 8.8 fl (7.5-11.1); MONO % 8.9 % (3.8-10.2); NEUT % 56.6 % (42.8-82.8); PLATELET COUNT 222 K/MM3 (134-434); RBC 3.64 M/mm3 (3.60-5.2); RDW 15.9 % (11.6-15.6); WHITE BLOOD COUNT 6.4 K/mm3 (4.0-10.0)
[2019-07-19 16:48] LABS: ALBUMIN 2.9 g/dl (3.4-5.0); BILIRUBIN,TOTAL 0.2 mg/dL (0.2-1); BLOOD UREA NITROGEN 38.6 mg/dL (7-18); CALCIUM 7.9 mg/dL (8.5-10.1); CREATININE 6.7 mg/dL (0.55-1.3); POTASSIUM 4.5 mmol/L (3.5-5.1); TOT PROT 6.2 g/dl (6.4-8.2)
[2019-07-19] MEDS: SODIUM ZIRCONIUM CYCLOSILICATE (LOKELMA) 5 GM PACKET PO SCH (19:47)
[2019-07-19] MEDS: AMITRIPTYLINE HCL 25 MG TABLET (FP) PO SCH (21:29)
[2019-07-19] MEDS: ATORVASTATIN CA 10 MG TABLET (FP) PO SCH (21:30)
[2019-07-20] MEDS: CALCIUM ACETATE 667 MG CAPSULE (FP) PO SCH ×3 (08:11→17:56)
[2019-07-20] MEDS: SEVELAMER CARBONATE 800 MG TAB (FP) PO SCH ×3 (08:12→17:57)
[2019-07-20] MEDS: HEPARIN NA (PORCINE) 5,000 UNITS/ML 1ML VIAL SQ SCH ×2 (09:11→21:23)
[2019-07-20] MEDS: FERROUS SO4 325 MG TABLET (FP) PO SCH ×2 (09:11→21:23)
[2019-07-20] MEDS: ALPRAZolam 0.25 MG TABLET PO PRN ×2 (09:11→16:30)
[2019-07-20] MEDS: LOSARTAN POTASSIUM 50 MG TABLET (FP) PO SCH (09:11)
[2019-07-20] MEDS: ASPIRIN 81 MG CHEWABLE TABLETS PO SCH (09:11)
[2019-07-20] MEDS: CARVEDILOL 6.25 MG TABLET (FP) PO SCH ×2 (09:11→21:23)
[2019-07-20] MEDS: NIFEdipine E.R 60 MG TABLET (UD) PO SCH (09:11)
[2019-07-20] MEDS: SODIUM ZIRCONIUM CYCLOSILICATE (LOKELMA) 5 GM PACKET PO SCH (09:12)
[2019-07-20] MEDS: CHOLESTYRAMINE/ASPARTAME 4 GM PACKET PO SCH ×2 (09:12→23:26)
[2019-07-20] MEDS: CALCITRIOL 0.25 MCG CAPSULE (FP) PO SCH (09:12)
--- NOTE | 2019-07-20 09:15 | PN ---
Progress Note, Physician Chief Complaint: feels well no c/o OOB to chair awaiting NH placement - Current Medication List Current Medications: Active Medications Acetaminophen (Tylenol -) 650 mg PO Q6H PRN PRN Reason: FEVER Alprazolam (Xanax -) 0.25 mg PO BID PRN PRN Reason: ANXIETY Last Admin: 07/20/19 09:11 Dose: 0.25 mg Amitriptyline HCl (Elavil -) 50 mg PO HS [facility] Last Admin: 07/19/19 21:29 Dose: 50 mg Aspirin (Asa -) 81 mg PO DAILY [facility] Last Admin: 07/20/19 09:11 Dose: 81 mg Atorvastatin Calcium (Lipitor -) 10 mg PO HS [facility] Last Admin: 07/19/19 21:30 Dose: 10 mg Calcitriol (Rocaltrol -) 0.25 mcg PO DAILY [facility] Last Admin: 07/20/19 09:12 Dose: 0.25 mcg Calcium Acetate (Phoslo -) 667 mg PO TIDCM [facility] Last Admin: 07/20/19 08:11 Dose: 667 mg Carvedilol (Coreg -) 6.25 mg PO BID [facility] Last Admin: 07/20/19 09:11 Dose: 6.25 mg Cholestyramine Resin (Questran Light Packet -) 4 gm PO BID [facility] Last Admin: 07/20/19 09:12 Dose: 4 gm Ferrous Sulfate (Feosol -) 325 mg PO BID [facility] Last Admin: 07/20/19 09:11 Dose: 325 mg Heparin Sodium (Porcine) (Heparin -) 5,000 unit SQ BID [facility] Last Admin: 07/20/19 09:11 Dose: 5,000 unit Sodium Chloride (Normal Saline -) 250 mls @ 3,000 mls/hr IV PRN PRN PRN Reason: Hypotension during Dialysis Stop: 07/18/19 14:48 Losartan Potassium (Cozaar -) 50 mg PO DAILY [facility] Last Admin: 07/20/19 09:11 Dose: 50 mg Nifedipine (Procardia Xl -) 120 mg PO DAILY [facility] Last Admin: 07/20/19 09:11 Dose: 120 mg Ondansetron HCl (Zofran -) 4 mg PO BID PRN PRN Reason: NAUSEA AND/OR VOMITING Last Admin: 07/19/19 00:53 Dose: 4 mg Sevelamer Carbonate (Renvela -) 1,600 mg PO TIDCM [facility] Last Admin: 07/20/19 08:12 Dose: 1,600 mg Sodium Zirconium Cyclosilicate (Lokelma) 10 gm PO DAILY [facility] Last Admin: 07/20/19 09:12 Dose: 10 gm - Objective Vital Signs: Vital Signs Temperature 98.1 F 07/19/19 21:40 Pulse Rate 78 07/19/19 21:40 Respiratory Rate 16 07/19/19 21:40 Blood Pressure 132/67 07/19/19 21:40 O2 Sat by Pulse Oximetry (%) 95 07/19/19 21:00 Constitutional: Yes: No Distress Eyes: Yes: Conjunctiva Clear HENT: Yes: Atraumatic Neck: Yes: Supple Cardiovascular: Yes: Regular Rate and Rhythm Respiratory: Yes: CTA Bilaterally Gastrointestinal: Yes: Soft Genitourinary: No: Hematuria Musculoskeletal: No: Joint Stiffness, Joint Swelling Extremities: No: Cold, Cool Edema: No Integumentary: No: Rash, Venous Stasis Changes Neurological: Yes: Alert ...Motor Strength: WNL Psychiatric: Yes: Alert. No: Agitated, Suicidal Ideation Labs: CBC, BMP 07/19/19 15:30 INR, PTT INR 0.90 (0.83-1.09) 07/17/19 12:31 - ....Imaging Other: Report Reviewed Assessment/Plan 83-year-old female brought in by ambulance well-known to this ED (seen here 6 times this month) with history of hypertension, ESRD on HD Monday (M,W,F) diabetes, anemia, anxiety admitted for emergent dialysis after missed outpt scheduled dialysis b/o being very weak needs snf placement in a NH with dialysis abilities - d/w CM d.w pt she agrees abd [facility] - awaiting bed HD per renal; stable falls PFX d/w pt do not get OOB alone decubs pfx turn in bed q1-2 h d/w pt and staff
[2019-07-20 09:19] LABS: BLOOD UREA NITROGEN 17.8 mg/dL (7-18); CALCIUM 8.5 mg/dL (8.5-10.1); CREATININE 4.4 mg/dL (0.55-1.3); POTASSIUM 4.6 mmol/L (3.5-5.1)
[2019-07-20] MEDS ORDERED: PT OWN MED DRAWER 7, Y5N ONE (20:48)
[2019-07-20] MEDS: ATORVASTATIN CA 10 MG TABLET (FP) PO SCH (21:23)
[2019-07-20] MEDS: AMITRIPTYLINE HCL 25 MG TABLET (FP) PO SCH (21:23)
[2019-07-21] MEDS: NIFEdipine E.R 60 MG TABLET (UD) PO SCH ×2 (06:42→11:30)
[2019-07-21] MEDS: SEVELAMER CARBONATE 800 MG TAB (FP) PO SCH ×3 (08:48→17:11)
[2019-07-21] MEDS: CALCIUM ACETATE 667 MG CAPSULE (FP) PO SCH ×3 (08:48→17:11)
[2019-07-21] MEDS: ALPRAZolam 0.25 MG TABLET PO PRN (08:48)
--- NOTE | 2019-07-21 09:48 | PN ---
Progress Note, Physician Chief Complaint: in bed NAD - Current Medication List Current Medications: Active Medications Acetaminophen (Tylenol -) 650 mg PO Q6H PRN PRN Reason: FEVER Alprazolam (Xanax -) 0.25 mg PO BID PRN PRN Reason: ANXIETY Last Admin: 07/21/19 08:48 Dose: 0.25 mg Amitriptyline HCl (Elavil -) 50 mg PO HS [facility] Last Admin: 07/20/19 21:23 Dose: 50 mg Aspirin (Asa -) 81 mg PO DAILY [facility] Last Admin: 07/20/19 09:11 Dose: 81 mg Atorvastatin Calcium (Lipitor -) 10 mg PO HS [facility] Last Admin: 07/20/19 21:23 Dose: 10 mg Calcitriol (Rocaltrol -) 0.25 mcg PO DAILY [facility] Last Admin: 07/20/19 09:12 Dose: 0.25 mcg Calcium Acetate (Phoslo -) 667 mg PO TIDCM [facility] Last Admin: 07/21/19 08:48 Dose: 667 mg Carvedilol (Coreg -) 6.25 mg PO BID [facility] Last Admin: 07/20/19 21:23 Dose: 6.25 mg Cholestyramine Resin (Questran Light Packet -) 4 gm PO BID [facility] Last Admin: 07/20/19 23:26 Dose: Not Given Ferrous Sulfate (Feosol -) 325 mg PO BID [facility] Last Admin: 07/20/19 21:23 Dose: 325 mg Heparin Sodium (Porcine) (Heparin -) 5,000 unit SQ BID [facility] Last Admin: 07/20/19 21:23 Dose: 5,000 unit Sodium Chloride (Normal Saline -) 250 mls @ 3,000 mls/hr IV PRN PRN PRN Reason: Hypotension during Dialysis Stop: 07/18/19 14:48 Losartan Potassium (Cozaar -) 50 mg PO DAILY [facility] Last Admin: 07/20/19 09:11 Dose: 50 mg Nifedipine (Procardia Xl -) 120 mg PO DAILY [facility] Last Admin: 07/21/19 06:42 Dose: 120 mg Ondansetron HCl (Zofran -) 4 mg PO BID PRN PRN Reason: NAUSEA AND/OR VOMITING Last Admin: 07/19/19 00:53 Dose: 4 mg Sevelamer Carbonate (Renvela -) 1,600 mg PO TIDCM [facility] Last Admin: 07/21/19 08:48 Dose: 1,600 mg Sodium Zirconium Cyclosilicate (Lokelma) 10 gm PO DAILY [facility] Last Admin: 07/20/19 09:12 Dose: 10 gm - Objective Vital Signs: Vital Signs Temperature 98.7 F 07/21/19 06:00 Pulse Rate 72 07/21/19 06:00 Respiratory Rate 20 07/21/19 06:00 Blood Pressure 169/79 07/21/19 06:00 O2 Sat by Pulse Oximetry (%) 95 07/20/19 21:00 Constitutional: Yes: No Distress Eyes: Yes: Conjunctiva Clear HENT: Yes: Atraumatic Neck: Yes: Supple Cardiovascular: Yes: Regular Rate and Rhythm Respiratory: Yes: CTA Bilaterally Gastrointestinal: Yes: Soft Genitourinary: No: Hematuria Musculoskeletal: No: Joint Stiffness Extremities: No: Cold Edema: No Integumentary: No: Rash Neurological: Yes: Alert, Oriented ...Motor Strength: WNL Psychiatric: Yes: Alert, Oriented. No: Agitated Labs: CBC, BMP 07/19/19 15:30 07/20/19 08:25 INR, PTT INR 0.90 (0.83-1.09) 07/17/19 12:31 - ....Imaging Other: Report Reviewed Assessment/Plan 83-year-old female brought in by ambulance well-known to this ED (seen here 6 times this month) with history of hypertension, ESRD on HD Monday (M,W,F) diabetes, anemia, anxiety admitted for emergent dialysis after missed outpt scheduled dialysis b/o being very weak needs terminal gauger placement in a NH with dialysis abilities - d/w CM d.w pt she agrees abd wants to go to long-term NH - awaiting bed HD per renal; stable falls PFX d/w pt do not get OOB alone decubs pfx turn in bed q1-2 h d/w pt and staff
[2019-07-21] MEDS ORDERED: PT OWN MED DRAWER 7, Y5N ONE (10:04)
[2019-07-21] MEDS: HEPARIN NA (PORCINE) 5,000 UNITS/ML 1ML VIAL SQ SCH ×2 (11:08→21:48)
[2019-07-21] MEDS: ASPIRIN 81 MG CHEWABLE TABLETS PO SCH (11:08)
[2019-07-21] MEDS: CARVEDILOL 6.25 MG TABLET (FP) PO SCH ×2 (11:08→21:48)
[2019-07-21] MEDS: SODIUM ZIRCONIUM CYCLOSILICATE (LOKELMA) 5 GM PACKET PO SCH (11:09)
[2019-07-21] MEDS: FERROUS SO4 325 MG TABLET (FP) PO SCH ×2 (11:09→21:55)
[2019-07-21] MEDS: LOSARTAN POTASSIUM 50 MG TABLET (FP) PO SCH (11:09)
[2019-07-21] MEDS: CALCITRIOL 0.25 MCG CAPSULE (FP) PO SCH (11:10)
[2019-07-21] MEDS: CHOLESTYRAMINE/ASPARTAME 4 GM PACKET PO SCH ×3 (11:10→21:55)
[2019-07-21] MEDS ORDERED: ALPRAZolam 0.25 MG TABLET PO ONE (18:45)
[2019-07-21] MEDS: AMITRIPTYLINE HCL 25 MG TABLET (FP) PO SCH (21:48)
[2019-07-21] MEDS: ATORVASTATIN CA 10 MG TABLET (FP) PO SCH (21:49)
[2019-07-22] MEDS ORDERED: HEPARIN NA (PORCINE) 5,000 UNITS/ML 1ML VIAL IVPUSH ONE (06:00)
[2019-07-22] MEDS: SEVELAMER CARBONATE 800 MG TAB (FP) PO SCH ×2 (08:44→12:17)
[2019-07-22] MEDS: CALCIUM ACETATE 667 MG CAPSULE (FP) PO SCH ×3 (08:44→19:06)
[2019-07-22] MEDS: ALPRAZolam 0.25 MG TABLET PO PRN ×2 (10:23→21:01)
[2019-07-22] MEDS: FERROUS SO4 325 MG TABLET (FP) PO SCH ×2 (10:24→20:59)
[2019-07-22] MEDS: CARVEDILOL 6.25 MG TABLET (FP) PO SCH ×2 (10:24→20:59)
[2019-07-22] MEDS: LOSARTAN POTASSIUM 50 MG TABLET (FP) PO SCH (10:24)
[2019-07-22] MEDS: ASPIRIN 81 MG CHEWABLE TABLETS PO SCH (10:24)
[2019-07-22] MEDS: HEPARIN NA (PORCINE) 5,000 UNITS/ML 1ML VIAL SQ SCH ×2 (10:25→20:59)
[2019-07-22] MEDS: NIFEdipine E.R 60 MG TABLET (UD) PO SCH (10:25)
[2019-07-22] MEDS: SODIUM ZIRCONIUM CYCLOSILICATE (LOKELMA) 5 GM PACKET PO SCH (10:26)
[2019-07-22] MEDS: CALCITRIOL 0.25 MCG CAPSULE (FP) PO SCH (10:26)
[2019-07-22] MEDS: CHOLESTYRAMINE/ASPARTAME 4 GM PACKET PO SCH ×2 (10:38→21:00)
--- NOTE | 2019-07-22 10:50 | DS ---
Physical Examination Vital Signs: Vital Signs Temperature 97.9 F 07/22/19 06:00 Pulse Rate 67 07/22/19 06:00 Respiratory Rate 18 07/22/19 06:00 Blood Pressure 141/59 L 07/22/19 06:00 O2 Sat by Pulse Oximetry (%) 100 07/22/19 09:00 Findings/Remarks: feels well no new c/o I had discussions with pt, case management and CM superviser about her emt intermediate management; pt is aware she has no days left for rehab and she started her application for Medicaid but she does not qualify for it at this point; so options are very limited; she will be DCd home and needs to go for dyalisis as advised if she choses to continue dyalisis - d/w pt she understands and agrees with plan Constitutional: Yes: No Distress Eyes: Yes: Conjunctiva Clear HENT: Yes: Atraumatic Neck: Yes: Supple Cardiovascular: Yes: Regular Rate and Rhythm Respiratory: Yes: CTA Bilaterally Gastrointestinal: Yes: Soft. No: Tenderness Renal/: No: Hematuria Musculoskeletal: No: Joint Stiffness, Joint Swelling Extremities: No: Cold, Cool, Cyanosis Edema: No Integumentary: No: Rash, Venous Stasis Changes Neurological: Yes: Alert ...Motor Strength: WNL Psychiatric: Yes: Alert. No: Agitated Labs: CBC, BMP 07/19/19 15:30 07/20/19 08:25 Discharge Summary Problems reviewed: Yes Reason For Visit: HYPERKALEMIA Current Active Problems ESRD (end stage renal disease) on dialysis (Acute) Hyperkalemia (Acute) Weakness (Acute) Procedures: Principal: 83 YOFD ASHD PVD DM HTN ESRD / HD admitted again for emergent dyalsis after she missed her outpt HD b/o being too weak to go Other Procedures: dyalized per renal Hospital Course: improved with above Plan of Treatment: dyalisis outpt per renal Condition: Fair - Instructions Diet, Activity, Other Instructions: dialysis per renal continue meds; falls precautions Referrals: Angela Barahona [Primary Care Provider] - Quentin Goyal MD [Staff Physician] - Disposition: VNS/HOME HEALTH CARE - Home Medications Comprehensive Discharge Medication List: Ambulatory Orders Alprazolam [Xanax] 0.25 mg PO BID PRN 02/19/19 Aspirin [ASA -] 81 mg PO DAILY 02/19/19 Atorvastatin Ca [Lipitor] 10 mg PO HS 02/19/19 Calcitriol [Calcitriol -] 0.25 mcg PO DAILY 02/19/19 Calcium Acetate 667 mg PO TID 02/19/19 Carvedilol [Coreg -] 6.25 mg PO BID 02/19/19 Acetaminophen [Tylenol .Regular Strength -] 650 mg PO Q6H PRN tablet 04/19/19 Ferrous Sulfate 325 mg PO BID 05/25/19 Losartan Potassium [Cozaar -] 50 mg PO DAILY #90 tablet 05/28/19 Nifedipine ER [Procardia XL -] 120 mg PO DAILY #180 tab.er.24 05/28/19 Amitriptyline HCl [Elavil -] 50 mg PO HS #30 tablet 06/07/19 Sevelamer Carbonate [Renvela -] 1,600 mg PO TIDCM tab 06/07/19 Cholestyramine/Aspartame [Questran Light Packet -] 4 gm PO BID packet 07/05/19 Ondansetron [Zofran -] 4 mg PO BID PRN tablet 07/12/19 Heparin - 5,000 unit SQ BID vial 07/20/19
--- NOTE | 2019-07-22 12:46 | PN ---
Progress Note (short form) - Note Progress Note: enal follow up for ESRD on HD Seen and examined at the bedside offes no acute complaints awaiting dialysis today no sob, cp, abd pain, fever or chills Vital Signs Temperature 97.9 F 07/22/19 06:00 Pulse Rate 67 07/22/19 06:00 Respiratory Rate 18 07/22/19 06:00 Blood Pressure 141/59 L 07/22/19 06:00 O2 Sat by Pulse Oximetry (%) 100 07/22/19 09:00 Intake & Output 07/19/19 07/20/19 07/21/19 07/22/19 23:59 23:59 23:59 23:59 Intake Total 1700 1000 750 100 Output Total 4000 Balance -2300 1000 750 100 Weight 48.988 kg 48.081 kg 49.186 kg NAD awake and alert no LE edema Right IJ tunneled HD catheter, no discharge or erythemia CBC, BMP 07/19/19 15:30 07/20/19 08:25 Current Medications Acetaminophen (Tylenol -) 650 mg PO Q6H PRN PRN Reason: FEVER Alprazolam (Xanax -) 0.25 mg PO BID PRN PRN Reason: ANXIETY Last Admin: 07/22/19 10:23 Dose: 0.25 mg Amitriptyline HCl (Elavil -) 50 mg PO [facility] Last Admin: 07/21/19 21:48 Dose: 50 mg Aspirin (Asa -) 81 mg PO DAILY [facility] Last Admin: 07/22/19 10:24 Dose: 81 mg Atorvastatin Calcium (Lipitor -) 10 mg PO HS [facility] Last Admin: 07/21/19 21:49 Dose: 10 mg Calcitriol (Rocaltrol -) 0.25 mcg PO DAILY [facility] Last Admin: 07/22/19 10:26 Dose: 0.25 mcg Calcium Acetate (Phoslo -) 1,334 mg PO TIDCM [facility] Carvedilol (Coreg -) 6.25 mg PO BID [facility] Last Admin: 07/22/19 10:24 Dose: 6.25 mg Cholestyramine Resin (Questran Light Packet -) 4 gm PO BID [facility] Last Admin: 07/22/19 10:38 Dose: Not Given Ferrous Sulfate (Feosol -) 325 mg PO BID [facility] Last Admin: 07/22/19 10:24 Dose: 325 mg Heparin Sodium (Porcine) (Heparin -) 5,000 unit SQ BID [facility] Last Admin: 07/22/19 10:25 Dose: 5,000 unit Heparin Sodium (Porcine) (Heparin -) 300 unit IVPUSH ONCE ONE Stop: 07/22/19 06:01 Heparin Sodium (Porcine) (Heparin -) 300 unit IVPUSH Q1H [facility] Stop: 07/22/19 09:01 Sodium Chloride (Normal Saline -) 250 mls @ 3,000 mls/hr IV PRN PRN PRN Reason: Hypotension during Dialysis Stop: 07/18/19 14:48 Sodium Chloride (Normal Saline -) 250 mls @ 3,000 mls/hr IV PRN PRN PRN Reason: Hypotension during Dialysis Stop: 07/22/19 22:03 Losartan Potassium (Cozaar -) 50 mg PO DAILY [facility] Last Admin: 07/22/19 10:24 Dose: 50 mg Nifedipine (Procardia Xl -) 120 mg PO DAILY [facility] Last Admin: 07/22/19 10:25 Dose: 120 mg Ondansetron HCl (Zofran -) 4 mg PO BID PRN PRN Reason: NAUSEA AND/OR VOMITING Last Admin: 07/19/19 00:53 Dose: 4 mg Sodium Zirconium Cyclosilicate (Lokelma) 10 gm PO DAILY [facility] Last Admin: 07/22/19 10:26 Dose: 10 gm 83 year old woman wit history of ESRD on HD, current smoker, DM not on meds, hypertension, renal osteodystrophy who presented from home with complaints of weakness. 1. ESRD on HD 2. Generalized weakness 3. Hypertension 4. Renal osteodystrophy 5. Hyperkalemia due to dialysis non-compliance For dialysis today with UF as tolerated continue lokelma for potassium management continue present antihypertensive medications continue supportive care Social work to look into possible placement Thank you Quentin Goyal DO
[2019-07-22] MEDS ORDERED: SODIUM CHLORIDE 250 ML IV PRN (14:06)
[2019-07-22 15:05] LABS: HEMATOCRIT 32.1 % (32.4-45.2); HEMOGLOBIN 10.7 GM/dL (10.7-15.3); MCH 30.7 pg (25.7-33.7); MCHC 33.3 g/dl (32.0-36.0); MEAN PLT VOLUME 8.9 fl (7.5-11.1); PLATELET COUNT 210 K/MM3 (134-434); RBC 3.49 M/mm3 (3.60-5.2); RDW 15.8 % (11.6-15.6); WHITE BLOOD COUNT 6.8 K/mm3 (4.0-10.0)
[2019-07-22 15:31] LABS: BLOOD UREA NITROGEN 47.2 mg/dL (7-18); CALCIUM 8.7 mg/dL (8.5-10.1); PHOSPHOROUS 4.1 mg/dL (2.5-4.9); POTASSIUM 4.2 mmol/L (3.5-5.1)
[2019-07-22] MEDS: HEPARIN NA (PORCINE) 5,000 UNITS/ML 1ML VIAL IVPUSH SCH ×3 (15:35→17:37)
[2019-07-22 17:01] LABS: CREATININE 8.2 mg/dL (0.55-1.3)
[2019-07-22] MEDS: ONDANSETRON 4 MG TABLET PO PRN (17:06)
[2019-07-22] MEDS: ATORVASTATIN CA 10 MG TABLET (FP) PO SCH (20:59)
[2019-07-22] MEDS: AMITRIPTYLINE HCL 25 MG TABLET (FP) PO SCH (21:00)
--- NOTE | 2019-07-23 07:47 | PN ---
Progress Note, Physician Chief Complaint: awaiting for DC home s/p H D last night (pt said it was too late to go home after HD) no new c/o asked for xanax d/w pt importance to be c/ HD as per renal she understands - Current Medication List Current Medications: Active Medications Acetaminophen (Tylenol -) 650 mg PO Q6H PRN PRN Reason: FEVER Alprazolam (Xanax -) 0.25 mg PO BID PRN PRN Reason: ANXIETY Last Admin: 07/22/19 21:01 Dose: 0.25 mg Amitriptyline HCl (Elavil -) 50 mg PO HS [facility] Last Admin: 07/22/19 21:00 Dose: 50 mg Aspirin (Asa -) 81 mg PO DAILY [facility] Last Admin: 07/22/19 10:24 Dose: 81 mg Atorvastatin Calcium (Lipitor -) 10 mg PO HS [facility] Last Admin: 07/22/19 20:59 Dose: 10 mg Calcitriol (Rocaltrol -) 0.25 mcg PO DAILY [facility] Last Admin: 07/22/19 10:26 Dose: 0.25 mcg Calcium Acetate (Phoslo -) 1,334 mg PO TIDCM [facility] Last Admin: 07/22/19 19:06 Dose: 1,334 mg Carvedilol (Coreg -) 6.25 mg PO BID [facility] Last Admin: 07/22/19 20:59 Dose: 6.25 mg Cholestyramine Resin (Questran Light Packet -) 4 gm PO BID [facility] Last Admin: 07/22/19 21:00 Dose: Not Given Ferrous Sulfate (Feosol -) 325 mg PO BID [facility] Last Admin: 07/22/19 20:59 Dose: 325 mg Heparin Sodium (Porcine) (Heparin -) 5,000 unit SQ BID [facility] Last Admin: 07/22/19 20:59 Dose: 5,000 unit Losartan Potassium (Cozaar -) 50 mg PO DAILY [facility] Last Admin: 07/22/19 10:24 Dose: 50 mg Nifedipine (Procardia Xl -) 120 mg PO DAILY [facility] Last Admin: 07/22/19 10:25 Dose: 120 mg Ondansetron HCl (Zofran -) 4 mg PO BID PRN PRN Reason: NAUSEA AND/OR VOMITING Last Admin: 07/22/19 17:06 Dose: 4 mg Sodium Zirconium Cyclosilicate (Lokelma) 10 gm PO DAILY [facility] Last Admin: 07/22/19 10:26 Dose: 10 gm - Objective Vital Signs: Vital Signs Temperature 98.6 F 07/23/19 05:56 Pulse Rate 65 07/23/19 05:56 Respiratory Rate 20 07/23/19 05:56 Blood Pressure 147/49 L 07/23/19 05:56 O2 Sat by Pulse Oximetry (%) 96 07/22/19 21:00 Constitutional: Yes: No Distress, Anxious Eyes: Yes: Conjunctiva Clear HENT: Yes: Atraumatic Neck: Yes: Supple Cardiovascular: Yes: Regular Rate and Rhythm Respiratory: Yes: CTA Bilaterally Gastrointestinal: Yes: Soft. No: Tenderness Genitourinary: No: Hematuria Musculoskeletal: No: Joint Stiffness, Joint Swelling Extremities: No: Cold, Cool, Cyanosis Edema: No Integumentary: No: Rash, Venous Stasis Changes Neurological: Yes: WNL, Alert, Oriented ...Motor Strength: WNL Psychiatric: Yes: WNL, Alert, Oriented. 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
[2019-07-23] MEDS: NIFEdipine E.R 60 MG TABLET (UD) PO SCH ×2 (08:30→09:27)
[2019-07-23] MEDS: CALCIUM ACETATE 667 MG CAPSULE (FP) PO SCH ×2 (08:30→12:43)
[2019-07-23] MEDS: CALCITRIOL 0.25 MCG CAPSULE (FP) PO SCH ×2 (08:31→09:27)
[2019-07-23] MEDS: ALPRAZolam 0.25 MG TABLET PO PRN (08:31)
[2019-07-23] MEDS: HEPARIN NA (PORCINE) 5,000 UNITS/ML 1ML VIAL SQ SCH ×2 (08:31→09:27)
[2019-07-23] MEDS: LOSARTAN POTASSIUM 50 MG TABLET (FP) PO SCH ×2 (08:31→09:27)
[2019-07-23] MEDS: FERROUS SO4 325 MG TABLET (FP) PO SCH ×2 (08:31→09:27)
[2019-07-23] MEDS: ASPIRIN 81 MG CHEWABLE TABLETS PO SCH ×2 (08:31→09:27)
[2019-07-23] MEDS: CARVEDILOL 6.25 MG TABLET (FP) PO SCH ×2 (08:31→09:27)
[2019-07-23] MEDS: CHOLESTYRAMINE/ASPARTAME 4 GM PACKET PO SCH (12:43)
[2019-07-23] MEDS: SODIUM ZIRCONIUM CYCLOSILICATE (LOKELMA) 5 GM PACKET PO SCH ×2 (12:43→14:28)
[2019-07-23 12:46] VITALS: BP 144/77; PULSE 78; TEMP 99
[2019-07-23] MEDS ORDERED: ALPRAZolam 0.25 MG TABLET PO ONE (14:30)
== END 2019-07-23 14:45 | disposition home health service (06) | DRG 640 ==
LOC: JER 10:32 → JERBED 16:18 → J7W 20:13
PROVIDERS: ADMIT Internal Medicine; ATTEND Internal Medicine
PROC: 5A1D70Z Performance of Urinary Filtration, Intermittent, Less than 6 Hours Per Day (ICD-10-PCS; principal; 2019-07-17)
PROC: 5A1D70Z Performance of Urinary Filtration, Intermittent, Less than 6 Hours Per Day (ICD-10-PCS; 2019-07-19)
PROC: 5A1D70Z Performance of Urinary Filtration, Intermittent, Less than 6 Hours Per Day (ICD-10-PCS; 2019-07-22)
DX: E87.5 Hyperkalemia (principal); N18.6 End stage renal disease; I12.0 Hypertensive chronic kidney disease with stage 5 chronic kidney disease or end stage renal disease; I25.10 Atherosclerotic heart disease of native coronary artery without angina pectoris; E11.51 Type 2 diabetes mellitus with diabetic peripheral angiopathy without gangrene; J45.909 Unspecified asthma, uncomplicated; E78.00 Pure hypercholesterolemia, unspecified; D63.8 Anemia in other chronic diseases classified elsewhere; F41.9 Anxiety disorder, unspecified; E11.22 Type 2 diabetes mellitus with diabetic chronic kidney disease; J44.9 Chronic obstructive pulmonary disease, unspecified; K80.20 Calculus of gallbladder without cholecystitis without obstruction; N25.0 Renal osteodystrophy; Z87.891 Personal history of nicotine dependence; Z89.421 Acquired absence of other right toe(s); Z99.2 Dependence on renal dialysis; Z91.15 Patient's noncompliance with renal dialysis
CPT/HCPCS: 36415; 80048; 80053; 84100; 85025; 85027; 85610; 85730; 93005; 93010; 97116-GP; 97162-GP; 99283-25; J1644

== ENCOUNTER 2019-08-09 17:48 | Inpatient (IN) | payer OTHER ==
[2019-08-09 18:05] VITALS: BMI 20.3
--- NOTE | 2019-08-09 18:08 | PDOC ---
History of Present Illness - General Chief Complaint: Blood Pressure Problem Stated Complaint: HYPERTENSION Time Seen by Provider: 08/09/19 18:07 - History of Present Illness Initial Comments: 08/09/19 18:10 83-year-old female brought in by ambulance well-known to this ED, with history of hypertension, ESRD on HD Monday (M,W,F) diabetes, anemia, anxiety who presents from dialysis center with elevated blood pressure to 200s systolic. She reports that she felt dizzy and was given 2 of 0.1 clonidine at the dialysis center. The patient reports that she took her BP this morning and it was 145/82. She denies any chest pain, fever, recent illness, dysuria, hematuria , diarrhea, constipation, n/v, cough, congestion. Denies headache, changes in vision or hearing or any other concerning symptoms ROS GENERAL/CONSTITUTIONAL: No fever or chills. No weakness. HEAD, EYES, EARS, NOSE AND THROAT: No change in vision. No ear pain or discharge. No sore throat. CARDIOVASCULAR: No chest pain or shortness of breath RESPIRATORY: No cough, wheezing, or hemoptysis. GASTROINTESTINAL: No nausea, vomiting, diarrhea or constipation. GENITOURINARY: No dysuria, frequency, or change in urination. MUSCULOSKELETAL: No joint or muscle swelling or pain. No neck or back pain. SKIN: No rash NEUROLOGIC: No headache, vertigo, loss of consciousness, or change in strength/ sensation. PE GENERAL: Awake, alert, and fully oriented, in no acute distress HEAD: No signs of trauma, normocephalic, atraumatic EYES: PERRLA, EOMI, sclera anicteric, conjunctiva clear ENT: oropharynx clear without exudates. Moist mucosa NECK: Normal ROM, supple LUNGS: No distress, speaks full sentences, clear to auscultation bilaterally HEART: Regular rate and rhythm, normal S1 and S2, no murmurs, rubs or gallops, peripheral pulses normal and equal bilaterally. ABDOMEN: Soft, nontender. No guarding, no rebound. No masses EXTREMITIES : Normal inspection, Normal range of motion, no edema. No clubbing or cyanosis. NEUROLOGICAL: Cranial nerves II through XII grossly intact. Normal speech, no focal sensorimotor deficits SKIN: Warm, Dry, normal turgor, no rashes or lesions noted MDM DDX including but not limited to: r/o infectious r/o acs ED Course: BP at bedside 170s/70s labs significant for hypokalemia and elevated bnp will admit for htn urgency Lacy Ariza PGY2 Emergency Medicine Past History - Past Medical History Allergies/Adverse Reactions: Allergies Allergy/AdvReac Type Severity Reaction Status Date / Time iodine Allergy Rash Verified 07/17/19 11:01 penicillin V Allergy Verified 07/17/19 11:01 shellfish derived Allergy Rash Verified 07/17/19 11:01 vancomycin Allergy Verified 07/17/19 11:01 azithromycin AdvReac Verified 07/17/19 11:01 Home Medications: Ambulatory Orders Alprazolam [Xanax] 0.25 mg PO BID PRN 02/19/19 Aspirin [ASA -] 81 mg PO DAILY 02/19/19 Atorvastatin Ca [Lipitor] 10 mg PO HS 02/19/19 Calcitriol [Calcitriol -] 0.25 mcg PO DAILY 02/19/19 Calcium Acetate 667 mg PO TID 02/19/19 Carvedilol [Coreg -] 6.25 mg PO BID 02/19/19 Acetaminophen [Tylenol .Regular Strength -] 650 mg PO Q6H PRN tablet 04/19/19 Ferrous Sulfate 325 mg PO BID 05/25/19 Losartan Potassium [Cozaar -] 50 mg PO DAILY #90 tablet 05/28/19 Nifedipine ER [Procardia XL -] 120 mg PO DAILY #180 tab.er.24 05/28/19 Amitriptyline HCl [Elavil -] 50 mg PO HS #30 tablet 06/07/19 Sevelamer Carbonate [Renvela -] 1,600 mg PO TIDCM tab 06/07/19 Cholestyramine/Aspartame [Questran Light Packet -] 4 gm PO BID packet 07/05/19 Ondansetron [Zofran -] 4 mg PO BID PRN tablet 07/12/19 Heparin - 5,000 unit SQ BID vial 07/20/19 Anemia: Yes Asthma: Yes Cancer: No Cardiac Disorders: Yes (PAD,CAD, PVD) CVA: No COPD: Yes CHF: No DVT: No Dementia: No Diabetes: Yes Dialysis: Yes (m,w,f) GI Disorders: Yes (chronic diarrhea) Disorders: No HTN: Yes Hypercholesterolemia: Yes Liver Disease: No Seizures: No Thyroid Disease: No - Surgical History Abdominal Surgery: No Appendectomy: No Cardiac Surgery: Yes (FEMORAL BYPASS) Cholecystectomy: Yes Lung Surgery: No Neurologic Surgery: No Orthopedic Surgery: Yes (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) - Immunization History Td Vaccination: Yes TDAP Vaccination: Yes Immunization Up to Date: Yes - Psycho Social/Smoking Cessation Hx Smoking Status: Yes Smoking History: Former smoker Have you smoked in the past 12 months: No Number of Cigarettes Smoked Daily: 30 If you are a former smoker, when did you quit?: 08/10/2012 Cigars Per Day: 30 Information on smoking cessation initiated: No 'Breaking Loose' booklet given: 06/28/19 Hx Alcohol Use: No Drug/Substance Use Hx: No Substance Use Type: None Hx Substance Use Treatment: No *Physical Exam - Vital Signs Last Vital Signs Temp Pulse Resp BP Pulse Ox 97.5 F L 76 18 172/72 H 96 08/09/19 17:58 08/09/19 17:58 08/09/19 17:58 08/09/19 17:58 08/09/19 17:58 ED Treatment Course - LABORATORY CBC & Chemistry Diagram: 08/09/19 18:55 08/09/19 18:55 Discharge - Follow up/Referral Referrals: Angela Barahona [Primary Care Provider] - - Patient Discharge Instructions - Post Discharge Activity
[2019-08-09 19:14] LABS: BASO % 0.8 % (0-2.0); HEMATOCRIT 32.8 % (32.4-45.2); HEMOGLOBIN 10.9 GM/dL (10.7-15.3); LYMPH % 19.3 % (8-40); MCH 31.2 pg (25.7-33.7); MCHC 33.2 g/dl (32.0-36.0); MEAN CELL VOLUME 93.9 fl (80-96); MONO % 8.6 % (3.8-10.2); NEUT % 67.3 % (42.8-82.8); PLATELET COUNT 221 K/MM3 (134-434); RBC 3.49 M/mm3 (3.60-5.2); RDW 16.4 % (11.6-15.6); WHITE BLOOD COUNT 8.1 K/mm3 (4.0-10.0)
[2019-08-09] MEDS ORDERED: CARVEDILOL 6.25 MG TABLET (FP) PO ONE (19:36)
[2019-08-09] MEDS ORDERED: LOSARTAN POTASSIUM 50 MG TABLET (FP) PO ONE (19:39)
[2019-08-09 20:09] LABS: ALK PHOS 88 U/L (45-117); ANION GAP 6 MMOL/L (8-16); BILIRUBIN,TOTAL 0.2 mg/dL (0.2-1); BLOOD UREA NITROGEN 8.8 mg/dL (7-18); CALCIUM 8.4 mg/dL (8.5-10.1); CHLORIDE 104 mmol/L (98-107); CO2 29 mmol/L (21-32); CREATININE 2.5 mg/dL (0.55-1.3); GLUCOSE,RANDOM 102 mg/dL (74-106); POTASSIUM 3.2 mmol/L (3.5-5.1); SGOT/AST 23 U/L (15-37); SGPT/ALT 21 U/L (13-61); SODIUM 139 mmol/L (136-145); TOT PROT 6.6 g/dl (6.4-8.2)
[2019-08-09] MEDS ORDERED: ALPRAZolam 0.25 MG TABLET PO ONE (20:10)
[2019-08-09] MEDS ORDERED: CARVEDILOL 3.125 MG TABLET (FP) ONE (20:23)
[2019-08-09] MEDS ORDERED: ALPRAZolam 0.25 MG TABLET ONE (20:23)
[2019-08-09] MEDS ORDERED: LOSARTAN POTASSIUM 50 MG TABLET (FP) ONE (20:23)
[2019-08-09] MEDS ORDERED: POTASSIUM CHLORIDE ORAL LIQUID 20 MEQ/15 ML ONE (20:24)
--- NOTE | 2019-08-09 20:28 | PDOC ---
Documentation entered by Janelle Lindquist SCRIBE, acting as scribe for Rachael Frey MD. Rachael Frey MD: This documentation has been prepared by the Ameena box Nirvannie, SCRIBE, under my direction and personally reviewed by me in its entirety. I confirm that the documentation accurately reflects all work, treatment, procedures, and medical decision making performed by me. Attending Attestation - Resident Resident Name: Lacy Ariza - ED Attending Attestation I have performed the following: I have examined & evaluated the patient, The case was reviewed & discussed with the resident, I agree w/resident's findings & plan, Exceptions are as noted - HPI HPI: 08/09/19 19:43 [id number], with significant past medical history of HTN, ESRD on HD (M,W,F), DM (no longer on any medication), PVD, anemia, smoking, OA, anxiety who presents to the ED via EMS from dialysis with elevated blood pressure. As per patient, while at dialysis she became dizzy and her systolic blood pressure was found to be in the 200s thus, she was given 2 of 0.1 Clonidine and sent to the ED for further evaluation. Denies fever, chills, chest pain, SOB, palpitations, weakness, N, V, D, abdominal pain, bladder and bowel problems, leg swelling, No sick contacts or travel. No new changes in medications. Allergies: Iodine, penicillin, vancomycin, azithromycin Past Medical History: HTN, ESRD on HD (M,W,F), DM (no longer on any medication) , PVD, anemia, smoking, OA, anxiety Social history: Lives with family. No tobacco, ETOH or drug use. Surgical history: None reported. Meds: as documented in EMR PMD: Dr. Angela Barahona - Physicial Exam PE: 08/09/19 19:43 NAD, well appearing, EOMI, PERRL, MMM, nl conjunctiva, anicteric; neck supple. lungs clear, RRR, no murmur, right lateral chest wall permacath. abdomen soft nontender. Back nontender. HORVATH x4, no focal neuro deficits. No peripheral edema. normal color for ethnicity, WWP. 08/09/19 20:32 - Medical Decision Making 08/09/19 20:27 Vital Signs Temp Pulse Resp BP Pulse Ox 97.5 F L 76 18 172/72 H 96 08/09/19 17:58 08/09/19 17:58 08/09/19 17:58 08/09/19 17:58 08/09/19 17:58 Vital signs reviewed here she is mildly hypertensive at 172/72, earlier her systolic blood pressure is greater than 200. No evidence of anemia, mild hypokalemia today likely related to her dialysis session. Creatinine is much improved down to 2.5. Troponin is also negative. However BNP is greater than 83,400 with her prior being normal. Chest x-ray clear with permacath in place, no evidence of pulmonary edema EKG is sinus rhythm, nonspecific T wave abnormalities. Borderline QTC which is elevated greater than 500 ms, sinus rhythm with nonspecific T wave abnormalities. Will avoid any QTc prolonging agents. changed EKG from prior. given her home nighttime meds for HTN. will admit for HTN urgency with e/o end organ damange/EKG changes/flattening, elevated bnp and sympatomatic earlier. cr elevation unable to explain sig elevated bnp, which is nonspecific at this time for CHF, as pt does not appear fluid overloaded, completed her HD session. admit to Dr barahona. 08/09/19 20:33 Heart Score/ECG Review #1 ECG reviewed & interpreted by me at: 20:10 General ECG Interpretation: Sinus Rhythm, Normal Rate, Normal Intervals Compared to previous ECG there are: Changes noted 08/09/19 20:27 EKG normal sinus rhythm 74 bpm, Borderline QTC greater than 500 ms, narrow QRS, ST and T wave segments and morphology normal. Nonspecific T wave abnormalities - changed from prior. 08/09/19 20:29
[2019-08-09] MEDS: POTASSIUM CHLORIDE ORAL LIQUID 20 MEQ/15 ML PO ONE ×2 (20:34→20:45)
[2019-08-09] MEDS ORDERED: AMITRIPTYLINE HCL 25 MG TABLET (FP) PO ONE (20:38)
[2019-08-09] MEDS ORDERED: AMITRIPTYLINE HCL 25 MG TABLET (FP) ONE (20:39)
[2019-08-09] MEDS ORDERED: POTASSIUM CHLORIDE TABS 10 MEQ TABLET.ER (FP) PO SCH (21:15)
[2019-08-09] MEDS ORDERED: ACETAMINOPHEN 325 MG TABLET (FP) PO PRN (22:01)
[2019-08-09] MEDS ORDERED: ONDANSETRON 4 MG TABLET PO PRN (22:01)
[2019-08-09] MEDS ORDERED: ALPRAZolam 0.25 MG TABLET PO PRN (22:01)
[2019-08-09] MEDS ORDERED: HEPARIN NA (PORCINE) 5,000 UNITS/ML 1ML VIAL ONE (22:46)
[2019-08-09] MEDS: HEPARIN NA (PORCINE) 5,000 UNITS/ML 1ML VIAL SQ SCH (22:53)
[2019-08-09] MEDS: SEVELAMER CARBONATE 800 MG TAB (FP) PO SCH (23:07)
[2019-08-10] MEDS ORDERED: PATIENT'S OWN MEDICATION (NON-FORMULARY) (Calcium Acetate [Calcium Acetate] 667 MG) PO SCH (06:00)
[2019-08-10 06:47] LABS: BLOOD UREA NITROGEN 10.8 mg/dL (7-18); CALCIUM 8.2 mg/dL (8.5-10.1); CREATININE 3.6 mg/dL (0.55-1.3); POTASSIUM 3.8 mmol/L (3.5-5.1)
[2019-08-10] MEDS: SEVELAMER CARBONATE 800 MG TAB (FP) PO SCH ×2 (08:41→15:16)
[2019-08-10] MEDS: CALCIUM ACETATE 667 MG CAPSULE (FP) PO SCH ×2 (08:41→15:16)
[2019-08-10] MEDS ORDERED: CHOLESTYRAMINE/ASPARTAME 4 GM PACKET PO SCH (10:00)
[2019-08-10] MEDS ORDERED: NIFEdipine E.R 60 MG TABLET (UD) PO SCH (10:00)
[2019-08-10] MEDS ORDERED: ASPIRIN 81 MG CHEWABLE TABLETS PO SCH (10:00)
[2019-08-10] MEDS ORDERED: LOSARTAN POTASSIUM 50 MG TABLET (FP) PO SCH (10:00)
[2019-08-10] MEDS ORDERED: CALCITRIOL 0.25 MCG CAPSULE (FP) PO SCH (10:00)
[2019-08-10] MEDS ORDERED: CARVEDILOL 6.25 MG TABLET (FP) PO SCH (10:00)
[2019-08-10] MEDS ORDERED: FERROUS SO4 325 MG TABLET (FP) PO SCH (10:00)
[2019-08-10] MEDS: HEPARIN NA (PORCINE) 5,000 UNITS/ML 1ML VIAL SQ SCH (10:44)
[2019-08-10 14:09] VITALS: BP 120/63; PULSE 72; TEMP 98
--- NOTE | 2019-08-10 14:11 | EKG ---
Test Reason : Blood Pressure : / mmHG Vent. Rate : 074 BPM Atrial Rate : 074 BPM P-R Int : 112 ms QRS Dur : 100 ms QT Int : 456 ms P-R-T Axes : 000 039 022 degrees QTc Int : 506 ms NORMAL SINUS RHYTHM NONSPECIFIC T WAVE ABNORMALITY PROLONGED QT ABNORMAL ECG WHEN COMPARED WITH ECG OF 17-JUL-2019 13:43, NON-SPECIFIC CHANGE IN ST SEGMENT IN ANTERIOR LEADS NONSPECIFIC T WAVE ABNORMALITY NOW EVIDENT IN INFERIOR LEADS NONSPECIFIC T WAVE ABNORMALITY NOW EVIDENT IN ANTEROLATERAL LEADS QT IS PROLONGED Confirmed by ARTURO BANKS MD ([id number]) on 08/10/2019 2:10:56 PM Referred By: Confirmed By:ARTURO BANKS MD
--- NOTE | 2019-08-10 15:17 | CON.NEP ---
Consult - Past Medical History Cardio/Vascular: Yes: HTN, Hyperlipdemia, Murmur, Other (PAD) Pulmonary: Yes: Asthma, COPD Hepatobiliary: Yes: Cholelithiasis, Choledocholithiasis Renal/: Yes: Renal Inusuff, Hemodialysis Infectious Disease: Yes: Other (history of osteomyelitis in the past) Endocrine: Yes: Diabetes Mellitus - Past Surgical History Past Surgical History: Yes: Amputation (1-st R toe amputation), Bypass (Right fem pop bypass) - Alcohol/Substance Use Hx Alcohol Use: No History of Substance Use: reports: None - Smoking History Smoking history: Former smoker Have you smoked in the past 12 months: No Aproximately how many cigarettes per day: 30 If you are a former smoker, when did you quit?: 08/10/2012 - Social History Usual Living Arrangement: Alone ADL: Support Services 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, [employer], 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 Travel: No Home Medications - Allergies Allergies/Adverse Reactions: Allergies Allergy/AdvReac Type Severity Reaction Status Date / Time iodine Allergy Rash Verified 07/17/19 11:01 penicillin V Allergy Verified 07/17/19 11:01 shellfish derived Allergy Rash Verified 07/17/19 11:01 vancomycin Allergy Verified 07/17/19 11:01 azithromycin AdvReac Verified 07/17/19 11:01 - Home Medications Home Medications: Ambulatory Orders Alprazolam [Xanax] 0.25 mg PO BID PRN 02/19/19 Aspirin [ASA -] 81 mg PO DAILY 02/19/19 Atorvastatin Ca [Lipitor] 10 mg PO HS 02/19/19 Calcitriol [Calcitriol -] 0.25 mcg PO DAILY 02/19/19 Calcium Acetate 667 mg PO TID 02/19/19 Carvedilol [Coreg -] 6.25 mg PO BID 02/19/19 Acetaminophen [Tylenol .Regular Strength -] 650 mg PO Q6H PRN tablet 04/19/19 Ferrous Sulfate 325 mg PO BID 05/25/19 Nifedipine ER [Procardia XL -] 120 mg PO DAILY #180 tab.er.24 05/28/19 Amitriptyline HCl [Elavil -] 50 mg PO HS #30 tablet 06/07/19 Sevelamer Carbonate [Renvela -] 1,600 mg PO TIDCM tab 06/07/19 Cholestyramine/Aspartame [Questran Light Packet -] 4 gm PO BID packet 07/05/19 Ondansetron [Zofran -] 4 mg PO BID PRN tablet 07/12/19 Heparin - 5,000 unit SQ BID vial 07/20/19 Losartan Potassium [Cozaar -] 100 mg PO DAILY 08/09/19 Nephrology Consult - Height Height: 5 ft 3 in - Weight Weight: 115 lb - BMI Body Mass Index (BMI): 20.3 - Lab Results CBC,BMP: CBC, BMP 08/09/19 18:55 08/10/19 05:36 Anion Gap: Anion Gap Anion Gap 6 MMOL/L (8-16) L 08/10/19 05:36 - Physical Examination Vital Signs: Vital Signs Temperature 98.0 F 08/10/19 14:07 Pulse Rate 72 08/10/19 14:07 Respiratory Rate 20 08/10/19 14:07 Blood Pressure 120/63 08/10/19 14:07 O2 Sat by Pulse Oximetry (%) 100 08/10/19 14:07 Assessment/Plan Patiet see prior to discharge HTN ESRD Anxiety/Depression no edema or sig of excess fluid On HD BIW she is aware of holiday schedule next tx scheduled Monday
--- NOTE | 2019-08-10 15:22 | HP ---
Admitting History and Physical - Primary Care Physician PCP: Jarrett Barahona - Admission Chief Complaint: High Blood pressure History of Present Illness: Pt with known Anxiety, HTN, ESRD on HD (twice per week) sent from HD with SBP of 200 (at the end of her HD); pt states that got nervous before HD started as was told that her HD will start late, and would make her to miss transportation and would have to wait few hours and pay extra to get home; pt w/o CP, palpitation, SOB, dizziness associated with elevated BP. Pt is checking BP at home daily; yesterday morning SBP was in 120's. Pt is compliant with her anti- HTN meds. History Source: Patient - Past Medical History Cardiovascular: Yes: HTN, Hyperlipdemia, Murmur, Other (PAD) Pulmonary: Yes: Asthma, COPD Hepatobiliary: Yes: Cholelithiasis, Choledocholithiasis Renal/: Yes: Renal Inusuff, Hemodialysis Heme/Onc: Yes: Anemia Infectious Disease: Yes: Other (history of osteomyelitis in the past) Endocrine: Yes: Diabetes Mellitus - Past Surgical History Past Surgical History: Yes: Amputation (1-st R toe amputation), Bypass (Right fem pop bypass) - Smoking History Smoking history: Former smoker Have you smoked in the past 12 months: No Aproximately how many cigarettes per day: 30 If you are a former smoker, when did you quit?: 08/10/2012 - Alcohol/Substance Use Hx Alcohol Use: No History of Substance Use: reports: None - Social History ADL: Support Services 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, [employer], 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 Travel: No Home Medications - Allergies Allergies/Adverse Reactions: Allergies Allergy/AdvReac Type Severity Reaction Status Date / Time iodine Allergy Rash Verified 07/17/19 11:01 penicillin V Allergy Verified 07/17/19 11:01 shellfish derived Allergy Rash Verified 07/17/19 11:01 vancomycin Allergy Verified 07/17/19 11:01 azithromycin AdvReac Verified 07/17/19 11:01 - Home Medications Home Medications: Ambulatory Orders Alprazolam [Xanax] 0.25 mg PO BID PRN 02/19/19 Aspirin [ASA -] 81 mg PO DAILY 02/19/19 Atorvastatin Ca [Lipitor] 10 mg PO HS 02/19/19 Calcitriol [Calcitriol -] 0.25 mcg PO DAILY 02/19/19 Calcium Acetate 667 mg PO TID 02/19/19 Carvedilol [Coreg -] 6.25 mg PO BID 02/19/19 Acetaminophen [Tylenol .Regular Strength -] 650 mg PO Q6H PRN tablet 04/19/19 Ferrous Sulfate 325 mg PO BID 05/25/19 Nifedipine ER [Procardia XL -] 120 mg PO DAILY #180 tab.er.24 05/28/19 Amitriptyline HCl [Elavil -] 50 mg PO HS #30 tablet 06/07/19 Sevelamer Carbonate [Renvela -] 1,600 mg PO TIDCM tab 06/07/19 Cholestyramine/Aspartame [Questran Light Packet -] 4 gm PO BID packet 07/05/19 Ondansetron [Zofran -] 4 mg PO BID PRN tablet 07/12/19 Heparin - 5,000 unit SQ BID vial 07/20/19 Losartan Potassium [Cozaar -] 100 mg PO DAILY 08/09/19 Review of Systems - Review of Systems Constitutional: denies: Chills, Fever Eyes: denies: Blurred Vision, Double Vision HENT: denies: Ear Pain, Nasal Congestion, Throat Pain Neck: denies: Pain on Movement, Stiffness Cardiovascular: denies: Chest Pain, Edema, Palpitations Respiratory: denies: Cough, Wheezing Gastrointestinal: denies: Abdominal Pain, Nausea, Vomiting Genitourinary: denies: Dysuria, Flank Pain Musculoskeletal: denies: Back Pain, Joint Swelling, Muscle Pain Integumentary: denies: Bruising, Rash Neurological: denies: Change in LOC, Numbness, Tremors, Weakness Endocrine: denies: Excessive Sweating, Intolerance to Cold Hematology/Lymphatic: denies: Easily Bruised, Excessive Bleeding Psychiatric: reports: Anxiety (on and off, using Xanax PRN). denies: Depression , Hallucinations, Suicidal Physical Examination Vital Signs: Vital Signs Temperature 98.0 F 08/10/19 14:07 Pulse Rate 72 08/10/19 14:07 Respiratory Rate 20 08/10/19 14:07 Blood Pressure 120/63 08/10/19 14:07 O2 Sat by Pulse Oximetry (%) 100 08/10/19 14:07 Constitutional: Yes: No Distress, Calm Eyes: Yes: Conjunctiva Clear, PERRL HENT: No: Epistaxis, Pharyngeal Erythema, Rhinnorhea Neck: Yes: Trachea Midline. No: Lymphadenopathy Cardiovascular: Yes: Regular Rate and Rhythm, S1, S2 Respiratory: Yes: Regular, CTA Bilaterally. No: Rales Gastrointestinal: Yes: Normal Bowel Sounds, Soft. No: Tenderness ...Rectal Exam: Yes: Deferred Renal/: No: CVA Tenderness - Left, CVA Tenderness - Right Breast(s): Yes: Other (deferred) Musculoskeletal: No: Back Pain, Joint Swelling Extremities: No: Cold, Cool, Cyanosis Integumentary: No: Bruising, Rash Neurological: Yes: Alert, Oriented, Other (symmetric examination in UE, LE, face ) Psychiatric: Yes: Alert, Oriented Labs: CBC, BMP 08/09/19 18:55 08/10/19 05:36 Imaging - Results Chest X-ray: Report Reviewed Problem List - Problems (1) Hypertension, uncontrolled Assessment/Plan: probable secondary to Anxiety Code(s): I10 - ESSENTIAL (PRIMARY) HYPERTENSION (2) ESRD (end stage renal disease) on dialysis Assessment/Plan: on HD twice per week. Pt's condition was d/w Dr. King, confirm next HD on Monday; he confirmed it with pt. Code(s): N18.6 - END STAGE RENAL DISEASE; Z99.2 - DEPENDENCE ON RENAL DIALYSIS (3) PAD (peripheral artery disease) Code(s): I73.9 - PERIPHERAL VASCULAR DISEASE, UNSPECIFIED (4) Diabetes mellitus Assessment/Plan: diet controlled Code(s): E11.9 - TYPE 2 DIABETES MELLITUS WITHOUT COMPLICATIONS (5) Anemia Code(s): D64.9 - ANEMIA, UNSPECIFIED Qualifiers: Anemia type: due to chronic kidney disease Chronic kidney disease stage: on chronic dialysis Qualified Code(s): N18.6 - End stage renal disease; D63.1 - Anemia in chronic kidney disease; Z99.2 - Dependence on renal dialysis (6) Anxiety Code(s): F41.9 - ANXIETY DISORDER, UNSPECIFIED Assessment/Plan Blood pressure controlled now. Pt with asymptomatic elevation in BP Elevation in BP probable secondary to anxiety. Anxiety episode situational. I recommended to pt to see a Psychiatrist. To f/u pt in the office. Pt to check BP at home BID and call our office/ service (same number) is SBP higher that 140. To DC pt home.
[2019-08-10] MEDS ORDERED: AMITRIPTYLINE HCL 25 MG TABLET (FP) PO SCH (22:00)
[2019-08-10] MEDS ORDERED: ATORVASTATIN CA 10 MG TABLET (FP) PO SCH (22:00)
== END 2019-08-10 17:32 | disposition home or self-care (01) | DRG 304 ==
LOC: JER 17:48 → JERBED 20:33 → UNDODISIN 08-10 15:30
PROVIDERS: ADMIT Specialist; ATTEND Specialist
DX: I16.0 Hypertensive urgency (principal); N18.6 End stage renal disease; I12.0 Hypertensive chronic kidney disease with stage 5 chronic kidney disease or end stage renal disease; E11.22 Type 2 diabetes mellitus with diabetic chronic kidney disease; I73.9 Peripheral vascular disease, unspecified; D63.1 Anemia in chronic kidney disease; F41.8 Other specified anxiety disorders
CPT/HCPCS: 36415; 71045-TC-FY; 80048; 80053; 83880; 84484; 85025; 93005; 93010; 99284-25; J1644

== ENCOUNTER 2019-08-14 02:30 | Inpatient (IN) | payer OTHER ==
--- NOTE | 2019-08-14 02:40 | PDOC ---
Attending Attestation - Resident Resident Name: Paulina Fregoso - ED Attending Attestation I have performed the following: I have examined & evaluated the patient, The case was reviewed & discussed with the resident, I agree w/resident's findings & plan - HPI HPI: 08/14/19 03:23 see resident hpi - Physicial Exam PE: 08/14/19 03:23 agree with resident exam - Medical Decision Making 08/14/19 03:24 84-year-old female with shortness of breath after electively missing dialysis earlier today Plan for call to nephrology and admission for dialysis due to fluid overload and Zenia holiday EKG shows some new ST segment depressions in lateral leads as well
[2019-08-14 03:05] VITALS: BMI 20.3
--- NOTE | 2019-08-14 03:10 | PDOC ---
History of Present Illness - General Chief Complaint: Shortness of Breath Stated Complaint: MISSED DIALYSIS Time Seen by Provider: 08/14/19 02:39 - History of Present Illness Initial Comments: HPI: 84yo F brought in by ambulance well-known to this ED, with history of HTN, ESRD on HD Monday (M, F) diabetes, anemia, anxiety, 64 pack-year smoker who presents from home with shortness of breath. Patient states she missed dialysis (Monday ) due to an anxiety attack. Had a full session on Monday. Due to the holiday season, was scheduled for dialysis today. Reports compliance with home medications. Stated she felt weak and shaky today such that she called 9-11. Reports cough x 1 day. No fevers, chills, chest pain, or shortness of breath. PCP: Dr. Angela Barahona ROS: Constitutional: no fever, no chills HEENT: no throat pain, no dysphagia Cardiovascular: no chest pain, no palpitations Respiratory: +cough, +shortness of breath Gastrointestinal: no abdominal pain, no nausea Genitourinary: no dysuria, no hematuria Musculoskeletal: no myalgia, no arthralgia Skin: no rash, no itching Neurologic: no headache, +weakness PE: General: Awake, alert, and fully oriented, in no acute distress Head: No signs of trauma Eyes: EOMI, sclera anicteric ENT: Moist mucus membranes Neck: Normal ROM, supple Lungs: Lungs with diffuse rales Cardio: Regular rhythm, S1 and S2 present Abdomen: Soft, nontender. No guarding, no rebound, no masses Extremities: Normal range of motion, Distal pulses present, No BLE edema SKIN: Warm, Dry, normal turgor Neurologic: Cranial nerves II through XII grossly intact. Normal speech ED Course/MDM: DDX including but not limited to fluid overload, ACS, PNA, CHF VS significant for hypertension; due for morning BP meds; ordered patient's home 120mg nifedipine Labs, EKG, CXR Patient needs to be emergently dialyzed EKG: rate 94, Qtc 470, NSR, flattened/twi in inferior distribution also present on previous EKG 08/09/19 08/14/19 03:10 CBC WBC 10.9 K/mm3 (4.0-10.0) H 08/14/19 03:26 RBC 3.67 M/mm3 (3.60-5.2) 08/14/19 03:26 Hgb 11.5 GM/dL (10.7-15.3) 08/14/19 03:26 Hct 35.2 % (32.4-45.2) 08/14/19 03:26 MCV 95.9 fl (80-96) 08/14/19 03:26 MCH 31.3 pg (25.7-33.7) 08/14/19 03:26 MCHC 32.7 g/dl (32.0-36.0) 08/14/19 03:26 RDW 17.4 % (11.6-15.6) H 08/14/19 03:26 Plt Count 248 K/MM3 (134-434) 08/14/19 03:26 MPV 8.3 fl (7.5-11.1) 08/14/19 03:26 Absolute Neuts (auto) 8.4 K/mm3 (1.5-8.0) H 08/14/19 03:26 Neutrophils % 76.4 % (42.8-82.8) 08/14/19 03:26 Lymphocytes % 12.6 % (8-40) D 08/14/19 03:26 Monocytes % 6.7 % (3.8-10.2) 08/14/19 03:26 Eosinophils % 3.8 % (0-4.5) 08/14/19 03:26 Basophils % 0.5 % (0-2.0) 08/14/19 03:26 Nucleated RBC % 0 % (0-0) 08/14/19 03:26 Mild leukocytosis CMP Sodium 140 mmol/L (136-145) 08/14/19 03:26 Potassium 4.5 mmol/L (3.5-5.1) 08/14/19 03:26 Chloride 110 mmol/L (98-107) H 08/14/19 03:26 Carbon Dioxide 18 mmol/L (21-32) L 08/14/19 03:26 Anion Gap 12 MMOL/L (8-16) 08/14/19 03:26 BUN 47.2 mg/dL (7-18) H 08/14/19 03:26 Creatinine 8.0 mg/dL (0.55-1.3) H* 08/14/19 03:26 Est GFR (CKD-EPI)AfAm 4.92 08/14/19 03:26 Est GFR (CKD-EPI)NonAf 4.24 08/14/19 03:26 Random Glucose 129 mg/dL (74-106) H 08/14/19 03:26 Calcium 8.1 mg/dL (8.5-10.1) L 08/14/19 03:26 Total Bilirubin 0.3 mg/dL (0.2-1) 08/14/19 03:26 AST 26 U/L (15-37) 08/14/19 03:26 ALT 23 U/L (13-61) 08/14/19 03:26 Alkaline Phosphatase 96 U/L (45-117) 08/14/19 03:26 Creatine Kinase 190 U/L (26-192) 08/14/19 03:26 Creatine Kinase Index 6.2 % (0.0-5.0) H 08/14/19 03:26 CK-MB (CK-2) 11.8 ng/mL (0.5-3.6) H 08/14/19 03:26 Troponin I 1.88 ng/ml (0.00-0.05) H* 08/14/19 03:26 B-Natriuretic Peptide 36130.9 pg/ml (5-450) H 08/14/19 03:26 Total Protein 7.5 g/dl (6.4-8.2) 08/14/19 03:26 Albumin 3.4 g/dl (3.4-5.0) 08/14/19 03:26 Electrolytes unremarkable Cr very elevated compared to previous value of 3.4 four days ago Tpn elevated 1.88 08/14/19 05:13 CXR with congestive changes when compared to that of five days ago, my impression Callback from Dr. Barahona who requested the symphony team admit the patient Patient refused ABG 08/14/19 05:21 Discussed case with Yulissa Ferrara who accepted patient for admission under Dr. Jun Cooney discussed case with Dr. Goyal, patient's crematory operator Patient to be dialyzed at 6am 08/14/19 05:36 Dr. Goyal does not want to dialyze the patient until she is in the 180s systolic Nitro drip recommended; ordered ICU resident paged; awaiting callback 08/14/19 06:[address] Selene Howe, ICU resident. She will evaluate the patient. 08/14/19 06:[address] Patient signed out to Dr. Sukhi Gaalviz and day team 08/14/19 07:11 Past History - Past Medical History Allergies/Adverse Reactions: Allergies Allergy/AdvReac Type Severity Reaction Status Date / Time iodine Allergy Rash Verified 07/17/19 11:01 penicillin V Allergy Verified 07/17/19 11:01 shellfish derived Allergy Rash Verified 07/17/19 11:01 vancomycin Allergy Verified 07/17/19 11:01 azithromycin AdvReac Verified 07/17/19 11:01 Home Medications: Ambulatory Orders Alprazolam [Xanax] 0.25 mg PO BID PRN 02/19/19 Aspirin [ASA -] 81 mg PO DAILY 02/19/19 Atorvastatin Ca [Lipitor] 10 mg PO HS 02/19/19 Calcitriol [Calcitriol -] 0.25 mcg PO DAILY 02/19/19 Calcium Acetate 667 mg PO TID 02/19/19 Carvedilol [Coreg -] 6.25 mg PO BID 02/19/19 Acetaminophen [Tylenol .Regular Strength -] 650 mg PO Q6H PRN tablet 04/19/19 Ferrous Sulfate 325 mg PO BID 05/25/19 Nifedipine ER [Procardia XL -] 120 mg PO DAILY #180 tab.er.24 05/28/19 Amitriptyline HCl [Elavil -] 50 mg PO HS #30 tablet 06/07/19 Sevelamer Carbonate [Renvela -] 1,600 mg PO TIDCM tab 06/07/19 Cholestyramine/Aspartame [Questran Light Packet -] 4 gm PO BID packet 07/05/19 Ondansetron [Zofran -] 4 mg PO BID PRN tablet 07/12/19 Heparin - 5,000 unit SQ BID vial 07/20/19 Losartan Potassium [Cozaar -] 100 mg PO DAILY 08/09/19 Anemia: Yes Asthma: Yes Cancer: No Cardiac Disorders: Yes (PAD,CAD, PVD) CVA: No COPD: Yes CHF: No DVT: No Dementia: No Diabetes: Yes Dialysis: Yes (m,w,f) GI Disorders: Yes (chronic diarrhea) Disorders: No HTN: Yes Hypercholesterolemia: Yes Liver Disease: No Seizures: No Thyroid Disease: No - Surgical History Abdominal Surgery: No Appendectomy: No Cardiac Surgery: Yes (FEMORAL BYPASS) Cholecystectomy: Yes Lung Surgery: No Neurologic Surgery: No Orthopedic Surgery: Yes (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) - Immunization History Td Vaccination: Yes TDAP Vaccination: Yes Immunization Up to Date: Yes - Psycho Social/Smoking Cessation Hx Smoking Status: Yes Smoking History: Current every day smoker Have you smoked in the past 12 months: Yes Number of Cigarettes Smoked Daily: 30 If you are a former smoker, when did you quit?: 08/10/2012 Cigars Per Day: 30 Information on smoking cessation initiated: Yes 'Breaking Loose' booklet given: 06/28/19 Hx Alcohol Use: No Drug/Substance Use Hx: No Substance Use Type: None Hx Substance Use Treatment: No *Physical Exam - Vital Signs Last Vital Signs Temp Pulse Resp BP Pulse Ox 97.3 F L 98 H 20 210/100 H 91 L 08/14/19 02:40 08/14/19 02:40 08/14/19 02:40 08/14/19 02:40 08/14/19 02:40 ED Treatment Course - LABORATORY CBC & Chemistry Diagram: 08/14/19 03:26 08/14/19 03:26 - RADIOLOGY Radiology Studies Ordered: Category Date Time Status CHEST X-RAY PORTABLE* [RAD] Stat Radiology 08/14/19 03:09 Ordered Discharge - Discharge Information Problems reviewed: Yes Clinical Impression/Diagnosis: Missed dialysis, Elevated troponin Condition: Guarded - Admission Yes - Follow up/Referral - Patient Discharge Instructions - Post Discharge Activity
[2019-08-14] MEDS ORDERED: NIFEdipine E.R. 90 MG TABLET (FP) PO ONE (03:13)
[2019-08-14] MEDS ORDERED: NIFEdipine E.R. 30 MG TABLET (FP) ONE (03:22)
[2019-08-14 03:52] LABS: BASO % 0.5 % (0-2.0); EOS % 3.8 % (0-4.5); HEMATOCRIT 35.2 % (32.4-45.2); HEMOGLOBIN 11.5 GM/dL (10.7-15.3); LYMPH % 12.6 % (8-40); MCH 31.3 pg (25.7-33.7); MCHC 32.7 g/dl (32.0-36.0); MEAN CELL VOLUME 95.9 fl (80-96); MEAN PLT VOLUME 8.3 fl (7.5-11.1); MONO % 6.7 % (3.8-10.2); NEUT % 76.4 % (42.8-82.8); PLATELET COUNT 248 K/MM3 (134-434); RBC 3.67 M/mm3 (3.60-5.2); RDW 17.4 % (11.6-15.6); WHITE BLOOD COUNT 10.9 K/mm3 (4.0-10.0)
[2019-08-14 04:05] LABS: INR 0.92 (0.83-1.09); PROTHROMBIN TIME (PATIENT) 10.9 SEC (9.7-13.0)
[2019-08-14 04:37] LABS: ALBUMIN 3.4 g/dl (3.4-5.0); BILIRUBIN,TOTAL 0.3 mg/dL (0.2-1); BLOOD UREA NITROGEN 47.2 mg/dL (7-18); CALCIUM 8.1 mg/dL (8.5-10.1); POTASSIUM 4.5 mmol/L (3.5-5.1); TOT PROT 7.5 g/dl (6.4-8.2)
[2019-08-14] MEDS ORDERED: NITROGLYCERIN 2% OINTMENT - 1GM PACKET TD ONE ×2 (05:04→05:07)
[2019-08-14] MEDS ORDERED: FUROSEMIDE 40 MG/4 ML INJECTABLE VIAL IVPUSH ONE (05:05)
[2019-08-14] MEDS ORDERED: FUROSEMIDE 40 MG/4 ML INJECTABLE VIAL ONE (05:07)
--- NOTE | 2019-08-14 06:23 | HP ---
CHIEF COMPLAINT: shortness of breath, missed dialysis PCP:Dr. Barahona HISTORY OF PRESENT ILLNESS 84 year old female brought in by ambulance with past medical history of hypertension,ESRD(on hemodialysis M, F), diabetes mellitus, anemia, anxiety, and 64 pack-year smoker who presents from home with shortness of breath, weakness and feeling "shaky". She denied fever or chest pain. Patient states she missed dialysis (Monday) due to an anxiety attack. Last dialysis full session was this past Monday. She reported compliance with home medications. ER course was notable for: (1)elevated creatinine of 8, normal electrolytes (2)elevated troponin of 1.88, EKG- ST changes, no acute ST elevations or T wave inversions (3)hypertensive urgency, received topical nitropaste, and nifedipine 120mg once (4)shortness of breath, elevated BNP >82,000 requiring BIPAP and IV lasix 40 mg once Recent Travel: no PAST MEDICAL HISTORY: hypertension ESRD diabetes mellitus anemia anxiety PAST SURGICAL HISTORY: femoral bypass surgery cholecystectomy orthopedic Surgery- 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 Social History: Smoking:yes, ongoing tobacco use,64 pack year hx Alcohol:no Drugs: no Allergies iodine Allergy (Verified 07/17/19 11:01) Rash penicillin V Allergy (Verified 07/17/19 11:01) shellfish derived Allergy (Verified 07/17/19 11:01) Rash vancomycin Allergy (Verified 07/17/19 11:01) azithromycin Adverse Reaction (Verified 07/17/19 11:01) diarrhea HOME MEDICATIONS: Home Medications Medication Instructions Recorded Alprazolam [Xanax] 0.25 mg PO BID PRN 02/19/19 Aspirin [ASA -] 81 mg PO DAILY 02/19/19 Atorvastatin Ca [Lipitor] 10 mg PO HS 02/19/19 Calcitriol [Calcitriol -] 0.25 mcg PO DAILY 02/19/19 Calcium Acetate 667 mg PO TID 02/19/19 Carvedilol [Coreg -] 6.25 mg PO BID 02/19/19 Acetaminophen [Tylenol .Regular 650 mg PO Q6H PRN tablet 04/19/19 Strength -] Ferrous Sulfate 325 mg PO BID 05/25/19 Nifedipine ER [Procardia XL -] 120 mg PO DAILY #180 tab.er.24 05/28/19 Amitriptyline HCl [Elavil -] 50 mg PO HS #30 tablet 06/07/19 Sevelamer Carbonate [Renvela -] 1,600 mg PO TIDCM tab 06/07/19 Cholestyramine/Aspartame [Questran 4 gm PO BID packet 07/05/19 Light Packet -] Ondansetron [Zofran -] 4 mg PO BID PRN tablet 07/12/19 Heparin - 5,000 unit SQ BID vial 07/20/19 Losartan Potassium [Cozaar -] 100 mg PO DAILY 08/09/19 REVIEW OF SYSTEMS CONSTITUTIONAL: Absent: fever, chills, diaphoresis, weakness, malaise, loss of appetite, weight change HEENT: Absent: rhinorrhea, nasal congestion, throat pain, throat swelling, difficulty swallowing, mouth swelling, ear pain, eye pain, visual changes CARDIOVASCULAR: Absent: chest pain, syncope, palpitations, irregular heart rate, lightheadedness , peripheral edema RESPIRATORY: Absent: cough, shortness of breath, dyspnea with exertion, orthopnea, wheezing, stridor, hemoptysis GASTROINTESTINAL: Absent: abdominal pain, abdominal distension, nausea, vomiting, diarrhea, constipation, melena, hematochezia GENITOURINARY: Absent: dysuria, frequency, urgency, hesitancy, hematuria, flank pain, genital pain MUSCULOSKELETAL: Absent: myalgia, arthralgia, joint swelling, back pain, neck pain SKIN: Absent: rash, itching, pallor HEMATOLOGIC/IMMUNOLOGIC: Absent: easy bleeding, easy bruising, lymphadenopathy, frequent infections ENDOCRINE: Absent: unexplained weight gain, unexplained weight loss, heat intolerance, cold intolerance NEUROLOGIC: Absent: headache, focal weakness or paresthesias, dizziness, unsteady gait, seizure, mental status changes, bladder or bowel incontinence PSYCHIATRIC: Absent: anxiety, depression, suicidal or homicidal ideation, hallucinations. PHYSICAL EXAMINATION Vital Signs - 24 hr 08/14/19 08/14/19 08/14/19 02:40 03:44 05:01 Temperature 97.3 F L 97.3 F L Pulse Rate 98 H Pulse Rate [ 99 H Left Radial] Respiratory 20 30 H Rate Blood Pressure 210/100 H Blood Pressure 210/94 H 225/93 H [Left Arm] O2 Sat by Pulse 91 L 89 L Oximetry (%) 08/14/19 05:25 Temperature Pulse Rate Pulse Rate [ Left Radial] Respiratory Rate Blood Pressure Blood Pressure [Left Arm] O2 Sat by Pulse 93 L Oximetry (%) GENERAL: awake, alert, and fully oriented anxious HEAD: normal EYES: pupils equal, round and reactive to light, extraocular movements intact EARS, NOSE, THROAT: ears normal, nares patent, oropharynx clear without exudates NECK: normal range of motion LUNGS: breath sounds with rales no accessory muscle use, BIPAP in use HEART: regular rate and rhythm normal S1 and S2 ABDOMEN: soft nontender not distended, normoactive bowel sounds MUSCULOSKELETAL: normal range of motion at all joints UPPER EXTREMITIES: 2+ pulses warm well-perfused no upper extremity edema LOWER EXTREMITIES: 2+ pulses warm well-perfused no pitting edema NEUROLOGICAL: normal speech. no facial grimace no facial droop PSYCHIATRIC: cooperative good eye contact anxious SKIN: warm dry normal turgor no rashes or lesions noted Laboratory Results - last 24 hr 08/14/19 08/14/19 08/14/19 03:26 03:26 03:26 WBC 10.9 H RBC 3.67 Hgb 11.5 Hct 35.2 MCV 95.9 MCH 31.3 MCHC 32.7 RDW 17.4 H Plt Count 248 MPV 8.3 Absolute Neuts (auto) 8.4 H Neutrophils % 76.4 Lymphocytes % 12.6 D Monocytes % 6.7 Eosinophils % 3.8 Basophils % 0.5 Nucleated RBC % 0 PT with INR INR PTT (Actin FS) 41.9 H Sodium Potassium Chloride Carbon Dioxide Anion Gap BUN Creatinine Est GFR (CKD-EPI)AfAm Est GFR (CKD-EPI)NonAf Random Glucose Calcium Total Bilirubin AST ALT Alkaline Phosphatase Creatine Kinase 190 Creatine Kinase Index 6.2 H CK-MB (CK-2) 11.8 H Troponin I 1.88 H* B-Natriuretic Peptide Total Protein Albumin 08/14/19 08/14/19 08/14/19 03:26 03:26 03:26 WBC RBC Hgb Hct MCV MCH MCHC RDW Plt Count MPV Absolute Neuts (auto) Neutrophils % Lymphocytes % Monocytes % Eosinophils % Basophils % Nucleated RBC % PT with INR 10.90 INR 0.92 PTT (Actin FS) Sodium 140 Potassium 4.5 Chloride 110 H Carbon Dioxide 18 L Anion Gap 12 BUN 47.2 H Creatinine 8.0 H* Est GFR (CKD-EPI)AfAm 4.92 Est GFR (CKD-EPI)NonAf 4.24 Random Glucose 129 H Calcium 8.1 L Total Bilirubin 0.3 AST 26 ALT 23 Alkaline Phosphatase 96 Creatine Kinase Creatine Kinase Index CK-MB (CK-2) Troponin I B-Natriuretic Peptide 87827.9 H Total Protein 7.5 Albumin 3.4 ASSESSMENT/PLAN: 84 year old female brought in by ambulance with past medical history of hypertension,ESRD on hemodialysis M-F, diabetes mellitus, anemia, anxiety, and 64 pack-year smoker who presented from home with shortness of breath, weakness and feeling "shaky". Patient missed dialysis (Monday) due to an anxiety attack. Last dialysis full session was this past Monday. She reported compliance with home medications. Admit to telemetry. 1. Acute on Chronic Renal Failure due to missing dialysis/ Hx ESRD on HD Creatinine 8. In this setting she has shortness of breath, has an elevated BNP, hypertensive urgency ,an elevated troponin and mild leukocytosis received topical nitropaste, IV lasix 40 mg once and nifedipine 120mg once requiring BIPAP and received IV lasix 40 mg once, currently maintained on BIPAP Dr. Jay Jay Saavedra of Nephrology consulted by ER team Plan for emergent dialysis/fluid removal at 6am this morning 2. Elevated Troponin/NSTEMI Asymptomatic Troponin 1.88 -? demand ischemia in setting of acute on chronic renal failure EKG w/ sinus rhythm, ST changes noted, no acute ST elevations or T wave inversions Continue to trend troponins Continue with asa and atorvastatin Cardiology consulted 3.Hypertension Uncontrolled, will improve with HD Continue with urgent dialysis for fluid removal Continue with nifedipine 120mg daily, coreg 6.25mg twice daily and losartan 100mg daily 4.Diabetes Mellitus BGM before meals and at bedtime Insulin as per Novolin sliding scale 5.Anemia Stable Continue to monitor 6.Hypocalcemia Continue with calcium supplementation 7. Anxiety Continue with xanax and amytriptyline DVT Prophylaxsis Heparin 5000U sq BID FEN low sodium, ADA, renal diet monitor electrolytes closely Visit type - Emergency Visit Emergency Visit: Yes Care time: The patient presented to the Emergency Department on the above date and was hospitalized for further evaluation of their emergent condition. - New Patient This patient is new to me today: Yes Date on this admission: 08/14/19 - Critical Care Critical Care patient: No
[2019-08-14] MEDS ORDERED: SODIUM CHLORIDE 250 ML IV PRN (06:36)
--- NOTE | 2019-08-14 06:57 | CONSULT ---
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 Pt was noted to be HTNsive to SBP in 200s and desat to 80s. Pt was placed on Bipap and nitropaste with persistent BP in 200s. Per ED, they discussed with Dr Goyal and pt was referred to ICU for nitodrip to bring SBP to less than 160s prior to emergent dialysis. When I saw the pt, BP was 178 then 154, before initiation of nitro drip. Pt requested to be taken off bipap and was sating at 94% on RA. D/W Dr Goyal and he still wanted pt in ICU for monitoring of breathing. Pt reports missing her dialysis session due to anxiety. She denies home oxygen use. Pt denies chest pain, fever, dysuria. Per pt she had no blurry vison or syncope but had this b/l jaw burning 10/10 constant, no known preceipiating factor, not relieved with tylenol that lasted 2.5 hrs, prior to her presentation in ED. Since she arrived in ED the pain has resolved. No N/V, no diarrhea, no bloody stools. Pt reports intermittent b/l calf pain, without swelling. Pt reports independent ADLS, ambulates with walker. EKG-vent rate-94bpm, sinus rhythm, old Q waves, QTC-470 No new ALFIE/STD REVIEW OF SYSTEMS: Except as above Social: Pt lives alone at home with independent ADLs, ambulates with walker PHYSICAL EXAMINATION Vital Signs - 24 hr 08/14/19 08/14/19 08/14/19 02:40 03:44 05:01 Temperature 97.3 F L 97.3 F L Pulse Rate 98 H Pulse Rate [ 99 H Left Radial] Respiratory 20 30 H Rate Blood Pressure 210/100 H Blood Pressure 210/94 H 225/93 H [Left Arm] O2 Sat by Pulse 91 L 89 L Oximetry (%) 08/14/19 08/14/19 08/14/19 05:25 05:45 06:15 Temperature Pulse Rate Pulse Rate [ 97 H Left Radial] Respiratory 26 H Rate Blood Pressure Blood Pressure 207/94 H [Left Arm] O2 Sat by Pulse 93 L 93 L 93 L Oximetry (%) GENERAL: Awake, alert, and fully oriented, in no acute distress, on bipap. HEAD: Normal with no signs of trauma. EYES: Pupils equal, round and reactive to light, EARS, NOSE, THROAT: On bipap, missing dentition NECK: Normal range of motion, supple LUNGS: B/l basal crackles, few wheezes HEART: Tachycardic, systolic murmur ABDOMEN: Soft, nontender, not distended, normoactive bowel sounds MUSCULOSKELETAL: Normal range of motion at all joints. Permacath R upper chest LOWER EXTREMITIES: 2+ pulses, warm, well-perfused. No calf tenderness. No peripheral edema. Amputated R 1st and 2nd toe NEUROLOGICAL: Cranial nerves II-XII intact. Normal speech. Gait not observed, normal ,muscle strength globally, no facial droop PSYCHIATRIC: Cooperative. Good eye contact. Appropriate mood and affect. CBC, BMP 08/14/19 03:26 08/14/19 03:26 Laboratory Results - last 24 hr 08/14/19 08/14/19 08/14/19 03:26 03:26 03:26 WBC 10.9 H RBC 3.67 Hgb 11.5 Hct 35.2 MCV 95.9 MCH 31.3 MCHC 32.7 RDW 17.4 H Plt Count 248 MPV 8.3 Absolute Neuts (auto) 8.4 H Neutrophils % 76.4 Lymphocytes % 12.6 D Monocytes % 6.7 Eosinophils % 3.8 Basophils % 0.5 Nucleated RBC % 0 PT with INR INR PTT (Actin FS) 41.9 H Sodium Potassium Chloride Carbon Dioxide Anion Gap BUN Creatinine Est GFR (CKD-EPI)AfAm Est GFR (CKD-EPI)NonAf Random Glucose Calcium Total Bilirubin AST ALT Alkaline Phosphatase Creatine Kinase 190 Creatine Kinase Index 6.2 H CK-MB (CK-2) 11.8 H Troponin I 1.88 H* B-Natriuretic Peptide Total Protein Albumin 08/14/19 08/14/19 08/14/19 03:26 03:26 03:26 WBC RBC Hgb Hct MCV MCH MCHC RDW Plt Count MPV Absolute Neuts (auto) Neutrophils % Lymphocytes % Monocytes % Eosinophils % Basophils % Nucleated RBC % PT with INR 10.90 INR 0.92 PTT (Actin FS) Sodium 140 Potassium 4.5 Chloride 110 H Carbon Dioxide 18 L Anion Gap 12 BUN 47.2 H Creatinine 8.0 H* Est GFR (CKD-EPI)AfAm 4.92 Est GFR (CKD-EPI)NonAf 4.24 Random Glucose 129 H Calcium 8.1 L Total Bilirubin 0.3 AST 26 ALT 23 Alkaline Phosphatase 96 Creatine Kinase Creatine Kinase Index CK-MB (CK-2) Troponin I B-Natriuretic Peptide 84890.9 H Total Protein 7.5 Albumin 3.4 Active Medications Generic Name Dose Route Start Last Admin Trade Name Freq PRN Reason Stop Dose Admin Alprazolam 0.25 mg 08/14/19 06:03 Xanax - PO BID PRN ANXIETY Amitriptyline HCl 50 mg 08/14/19 22:00 Elavil - PO HS [facility] Aspirin 81 mg 08/14/19 10:00 Asa - PO DAILY [facility] Atorvastatin Calcium 10 mg 08/14/19 22:00 Lipitor - PO HS [facility] Carvedilol 6.25 mg 08/14/19 10:00 Coreg - PO BID [facility] Heparin Sodium (Porcine) 5,000 unit 08/14/19 10:00 Heparin - SQ BID [facility] Sodium Chloride 250 mls @ 3,000 mls/hr 08/14/19 06:36 Normal Saline - IV 08/15/19 06:36 PRN PRN Hypotension during Dialysis Insulin Aspart 1 vial 08/14/19 07:00 Novolog Vial Sliding Scale - SQ BIDAC [facility] Protocol Losartan Potassium 100 mg 08/14/19 10:00 Cozaar - PO DAILY [facility] Nifedipine 120 mg 08/14/19 10:00 Procardia Xl - PO DAILY [facility] Non-Formulary Medication 667 mg 08/14/19 14:00 Calcium Acetate [Calcium Acetate] PO TID [facility] Non-Formulary Medication 325 mg 08/14/19 10:00 Ferrous Sulfate [Ferrous Sulfate] PO BID [facility] Sevelamer Carbonate 1,600 mg 08/14/19 08:00 Renvela - PO TIDCM [facility] Ambulatory Orders Alprazolam [Xanax] 0.25 mg PO BID PRN 02/19/19 Aspirin [ASA -] 81 mg PO DAILY 02/19/19 Atorvastatin Ca [Lipitor] 10 mg PO HS 02/19/19 Calcitriol [Calcitriol -] 0.25 mcg PO DAILY 02/19/19 Calcium Acetate 667 mg PO TID 02/19/19 Carvedilol [Coreg -] 6.25 mg PO BID 02/19/19 Acetaminophen [Tylenol .Regular Strength -] 650 mg PO Q6H PRN tablet 04/19/19 Ferrous Sulfate 325 mg PO BID 05/25/19 Nifedipine ER [Procardia XL -] 120 mg PO DAILY #180 tab.er.24 05/28/19 Amitriptyline HCl [Elavil -] 50 mg PO HS #30 tablet 06/07/19 Sevelamer Carbonate [Renvela -] 1,600 mg PO TIDCM tab 06/07/19 Cholestyramine/Aspartame [Questran Light Packet -] 4 gm PO BID packet 07/05/19 Ondansetron [Zofran -] 4 mg PO BID PRN tablet 07/12/19 Heparin - 5,000 unit SQ BID vial 07/20/19 Losartan Potassium [Cozaar -] 100 mg PO DAILY 08/09/19 ASSESSMENT/PLAN: Pt is an 84 year old F with PMHx of DM, HTN, HLD, PAD, Asthma, COPD, ESRD on HD (twice weekly), Hx of OA s/p amputation right 1st and 2nd toes BIBA for b/l b/l jaw pain and generalized weakness after missed dialysis yesterday. Neuro: Alert and oriented, cont to monitor Cardio: Presented in hypertensive Emergency Received home meds and nitropaste troponinemia could be demand in setting of hypertensive emergency, will continue to trend Received home meds and nitropaste (rubbed off) Will hold off nitro drip SBP 178>>154>>122/77 For emergent dialysis Cardio consult- seen by Dr Lam in past Pulm Acute hypoxic resp failure possibly in setting of fluid overload from missed dialysis COPD, Asthma- pt denies home O2 Pt was on bipap, now on Nasal cannular Supplemental O2 to keep sats > 90% Abdomen Stable Renal ESRD Normal HD biweekly For emergent dialysis No standing fluids Endo: DM ISS -BIDAC BGM YESI Hx of OA s/p amputation right 1st and 2nd toes Requesting opiates for b/l leg pain Duplex US b/l LE Got PO morphine 15mg once FEN Monitor lytes No standing fluids Dispo: We will continue to follow the patient. Thank you for this consultative opportunity. Visit type - Emergency Visit Emergency Visit: Yes ED Registration Date: 08/14/19 Care time: The patient presented to the Emergency Department on the above date and was hospitalized for further evaluation of their emergent condition. - New Patient This patient is new to me today: Yes Date on this admission: 08/14/19 - Critical Care Critical Care patient: Yes Total Critical Care Time (in minutes): 40 Critical Care Statement: The care of this patient involved high complexity decision making to prevent further life threatening deterioration of the patient 's condition and/or to evaluate & treat vital organ system(s) failure or risk of failure. ATTENDING PHYSICIAN STATEMENT I saw and evaluated the patient. I reviewed the resident's note and discussed the case with the resident. I agree with the resident's findings and plan as documented. SUBJECTIVE: OBJECTIVE: ASSESSMENT AND PLAN:
[2019-08-14] MEDS ORDERED: NITROGLYCERIN 25MG/D5W 250ML 25 MG/250 ML ML IVPB ONE (07:03)
[2019-08-14] MEDS: INSULIN SLIDING SCALE (NOVOLOG) 1 VIAL SQ SCH ×2 (07:42→17:29)
[2019-08-14] MEDS: NITROGLYCERIN 25MG/D5W 250ML 25 MG/250 ML ML IVPB SCH (07:42)
[2019-08-14] MEDS ORDERED: HEPARIN NA (PORCINE) 5,000 UNITS/ML 1ML VIAL SQ SCH (10:00)
--- NOTE | 2019-08-14 10:13 | PN ---
Teaching Attending Note Name of Resident: Selene Howe ATTENDING PHYSICIAN STATEMENT I saw and evaluated the patient. I reviewed the resident's note and discussed the case with the resident. I agree with the resident's findings and plan as documented. SUBJECTIVE: Pt seen and examined in the ICU. Currently being dialyzed, states breathing has improved. Saturating well. OBJECTIVE: Vital Signs Period Temp Pulse Resp BP Sys/Banuelos Pulse Ox Last 24 Hr 97.3 F-97.3 F 94-99 18-30 122-225/74-100 89-97 Intake & Output 08/11/19 08/12/19 08/13/19 08/14/19 23:59 23:59 23:59 23:59 Weight 52.163 kg Gen: NAD on HD Heart: RRR Lung: decreased breath sounds at the bases Abd: soft, nontender Ext: no edema CBC, BMP 08/14/19 03:26 08/14/19 03:26 Active Medications Alprazolam (Xanax -) 0.25 mg PO BID PRN PRN Reason: ANXIETY Amitriptyline HCl (Elavil -) 50 mg PO HS [facility] Aspirin (Asa -) 81 mg PO DAILY [facility] Atorvastatin Calcium (Lipitor -) 10 mg PO HS [facility] Calcium Acetate (Phoslo -) 667 mg PO TIDCM [facility] Carvedilol (Coreg -) 6.25 mg PO BID [facility] Ferrous Sulfate (Feosol -) 325 mg PO BIDWM [facility] Heparin Sodium (Porcine) (Heparin -) 5,000 unit SQ BID [facility] Sodium Chloride (Normal Saline -) 250 mls @ 3,000 mls/hr IV PRN PRN PRN Reason: Hypotension during Dialysis Stop: 08/15/19 06:36 Nitroglycerin/Dextrose (Nitroglycerin 25mg/D5w 250ml) 25 mg in 250 mls @ 6 mls/ hr IVPB TITR [facility] Last Admin: 08/14/19 07:42 Dose: Not Given Insulin Aspart (Novolog Vial Sliding Scale -) 1 vial SQ BIDAC [facility]; Protocol Last Admin: 08/14/19 07:42 Dose: Not Given Losartan Potassium (Cozaar -) 100 mg PO DAILY [facility] Nifedipine (Procardia Xl -) 120 mg PO DAILY [facility] Sevelamer Carbonate (Renvela -) 1,600 mg PO TIDCM [facility] ASSESSMENT AND PLAN: Acute Hypoxic Respiratory Failure Hypertensive Urgency Acute on Chronic Diastolic Heart Failure +Troponins - r/o NSTEMI vs Demand Ischemia ESRD on HD COPD PAD HTN DM Hyperlipidemia - HD per renal with ultrafiltration - O2 to keep SpO2 >90% - trend cardiac enzymes - on ASA, statin, beta pepito - cardiology eval - BP control - inhaled bronchodilators as needed - discussed importance with HD compliance, states that she gets very anxious - DVT prophylaxis - can monitor on telemetry
[2019-08-14] MEDS: CARVEDILOL 6.25 MG TABLET (FP) PO SCH ×2 (10:15→22:15)
[2019-08-14] MEDS: LOSARTAN POTASSIUM 50 MG TABLET (FP) PO SCH (10:15)
[2019-08-14] MEDS: ASPIRIN 81 MG CHEWABLE TABLETS PO SCH (10:16)
[2019-08-14] MEDS: FERROUS SO4 325 MG TABLET (FP) PO SCH ×2 (10:16→17:30)
[2019-08-14] MEDS: SEVELAMER CARBONATE 800 MG TAB (FP) PO SCH ×3 (10:16→17:30)
[2019-08-14] MEDS: NIFEdipine E.R 60 MG TABLET (UD) PO SCH (10:20)
[2019-08-14] MEDS ORDERED: morphine SULFATE IMMEDIATE RELEASE 30 MG TAB PO ONE (10:58)
[2019-08-14] MEDS: ALPRAZolam 0.25 MG TABLET PO PRN (11:25)
[2019-08-14] MEDS ORDERED: ACETAMINOPHEN 325 MG TABLET (FP) PO PRN (13:31)
[2019-08-14] MEDS ORDERED: ACETAMINOPHEN 325 MG TABLET (FP) ONE (13:32)
[2019-08-14] MEDS ORDERED: MORPHINE SULFATE 2 MG/ML VIAL ONE (13:58)
[2019-08-14] MEDS ORDERED: MORPHINE SULFATE 2 MG/ML VIAL IVPUSH ONE (14:00)
--- NOTE | 2019-08-14 14:47 | CON.CARD ---
Consult Consult Specialty:: cardiology Reason for Consultation:: STT changes on EKG; elevated TNI - History of Present Illness Chief Complaint: Just finished hemodialysis; no chest or jaw pain (but later says she had "gum pain"); no palpitations; not dyspneic. 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 Patient states she missed dialysis (Monday) due to an anxiety attack. Had a full session on Monday. Due to the holiday season, was scheduled for dialysis today. Reports compliance with home medications. Stated she felt weak and shaky today such that she called 9-11. Reports cough x 1 day. No fevers , chills, chest pain, or shortness of breath. Noted to have new STT changes on EKG in ER; elevated TNI PCP: Dr. Angela Barahona - History Source History Provided By: Patient, Medical Record Limitations to Obtaining History: No Limitations - Past Medical History Cardio/Vascular: Yes: HTN, Hyperlipdemia, Murmur, Other (PAD) Pulmonary: Yes: Asthma, COPD Hepatobiliary: Yes: Cholelithiasis, Choledocholithiasis Renal/: Yes: Renal Inusuff, Hemodialysis Reproductive: Yes: Postmenopausal ...: No Heme/Onc: No: Anemia Infectious Disease: Yes: Other (history of osteomyelitis in the past) Endocrine: Yes: Diabetes Mellitus - Past Surgical History Past Surgical History: Yes: Amputation (1-st R toe amputation), Bypass (Right fem pop bypass) - Alcohol/Substance Use Hx Alcohol Use: No History of Substance Use: reports: None - Smoking History Smoking history: Current every day smoker Have you smoked in the past 12 months: Yes Aproximately how many cigarettes per day: 30 If you are a former smoker, when did you quit?: 08/10/2012 - Social History Usual Living Arrangement: Alone ADL: Support Services 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, 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, 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 Travel: No Home Medications - Allergies Allergies/Adverse Reactions: Allergies Allergy/AdvReac Type Severity Reaction Status Date / Time iodine Allergy Rash Verified 07/17/19 11:01 penicillin V Allergy Verified 07/17/19 11:01 shellfish derived Allergy Rash Verified 07/17/19 11:01 vancomycin Allergy Verified 07/17/19 11:01 azithromycin AdvReac Verified 07/17/19 11:01 - Home Medications Home Medications: Ambulatory Orders Alprazolam [Xanax] 0.25 mg PO BID PRN 02/19/19 Aspirin [ASA -] 81 mg PO DAILY 02/19/19 Atorvastatin Ca [Lipitor] 10 mg PO HS 02/19/19 Calcitriol [Calcitriol -] 0.25 mcg PO DAILY 02/19/19 Calcium Acetate 667 mg PO TID 02/19/19 Carvedilol [Coreg -] 6.25 mg PO BID 02/19/19 Acetaminophen [Tylenol .Regular Strength -] 650 mg PO Q6H PRN tablet 04/19/19 Ferrous Sulfate 325 mg PO BID 05/25/19 Nifedipine ER [Procardia XL -] 120 mg PO DAILY #180 tab.er.24 05/28/19 Amitriptyline HCl [Elavil -] 50 mg PO HS #30 tablet 06/07/19 Sevelamer Carbonate [Renvela -] 1,600 mg PO TIDCM tab 06/07/19 Cholestyramine/Aspartame [Questran Light Packet -] 4 gm PO BID packet 07/05/19 Ondansetron [Zofran -] 4 mg PO BID PRN tablet 07/12/19 Heparin - 5,000 unit SQ BID vial 07/20/19 Losartan Potassium [Cozaar -] 100 mg PO DAILY 08/09/19 Family Medical History Family History: Denies Review of Systems - Review of Systems Constitutional: reports: Weakness Eyes: reports: No Symptoms HENT: reports: No Symptoms Neck: reports: No Symptoms Cardiovascular: reports: Shortness of Breath. denies: Chest Pain Respiratory: reports: SOB Gastrointestinal: reports: No Symptoms Genitourinary: reports: No Symptoms Breasts: reports: No Symptoms Reported Musculoskeletal: reports: Muscle Weakness Integumentary: reports: No Symptoms Neurological: reports: Weakness Endocrine: reports: No Symptoms Hematology/Lymphatic: reports: No Symptoms Psychiatric: reports: Anxiety, Panic - Risk Factors Known Risk Factors: Yes: Age, Hypercholesterolemia, Hypertension, Physical Inactivity, Smoking Vital Signs: Vital Signs Temperature 98.6 F 08/14/19 11:00 Pulse Rate 86 08/14/19 13:14 Respiratory Rate 18 08/14/19 13:14 Blood Pressure 129/66 08/14/19 13:14 O2 Sat by Pulse Oximetry (%) 98 08/14/19 09:00 Constitutional: Yes: Anxious, Thin Eyes: Yes: WNL HENT: Yes: WNL Neck: Yes: WNL Respiratory: Yes: Diminished, Tachypnea Gastrointestinal: Yes: Soft Renal/: No: Anuria Cardiovascular: Yes: Regular Rate and Rhythm JVD: No Carotid Bruit: No PMI: Non-Displaced Heart Sounds: Yes: S1, S2, S4 Musculoskeletal: Yes: Muscle Weakness Extremities: Yes: Amputation (rt foot toes), Cool Edema: No Peripheral Pulses WNL: No Peripheral Pulses: 1+ Left Doralis Pedis, 1+ Right Dorsalis Pedis Psychiatric: Yes: Alert, Oriented, Other (anxiety) - Other Data Labs, Other Data: CBC, BMP 08/14/19 03:26 08/14/19 03:26 INR, PTT INR 0.92 (0.83-1.09) 08/14/19 03:26 Troponin, BNP 08/14/19 08/14/19 08/14/19 03:26 03:26 06:15 Troponin I 1.88 H* 2.66 H* B-Natriuretic Peptide 34037.9 H 08/14/19 08/14/19 12:00 12:10 Troponin I 3.70 H* Cancelled B-Natriuretic Peptide Troponin, BNP 08/14/19 08/14/19 08/14/19 03:26 03:26 06:15 Troponin I 1.88 H* 2.66 H* B-Natriuretic Peptide 91397.9 H 08/14/19 08/14/19 12:00 12:10 Troponin I 3.70 H* Cancelled B-Natriuretic Peptide Abnormal Lab Results 08/14/19 08/14/19 08/14/19 06:15 12:00 15:30 Troponin I 2.66 H* 3.70 H* 3.86 H* Ejection Fraction %: LVEF > or = 40 % Problem List - Problems (1) NSTEMI (non-ST elevated myocardial infarction) Assessment/Plan: Elevated TNI (2.6-->3.7; <0.02 on 08/09/19); CK index 6.2. EKG: nonspecific inferior wall STT changes. Plan: On ASA 81 mg daily. Start IV heparin Atorvastatin 80 mg daily Continue carvedilol, losartan, nifedipine Serial EKG and TNI (ECHO 05/2019: normal LVEF; consider f/u to r/o new regional wall motion abnormalities). F/u records of previous cardiac workup. Code(s): I21.4 - NON-ST ELEVATION (NSTEMI) MYOCARDIAL INFARCTION (2) Missed dialysis Assessment/Plan: underwent hemodialysis today. Code(s): KHZ4049 - (3) Amputated toe Code(s): Z89.429 - ACQUIRED ABSENCE OF OTHER TOE(S), UNSPECIFIED SIDE (4) Anxiety Code(s): F41.9 - ANXIETY DISORDER, UNSPECIFIED (5) CAD (coronary artery disease) Code(s): I25.10 - ATHSCL HEART DISEASE OF [place] CORONARY ARTERY W/O ANG PCTRS Qualifiers: Coronary Disease-Associated Artery/Lesion type: [place] artery [place] vs. transplanted heart: [place] heart Associated angina: without angina Qualified Code(s): I25.10 - Atherosclerotic heart disease of [place] coronary artery without angina pectoris (6) COPD (chronic obstructive pulmonary disease) Code(s): J44.9 - CHRONIC OBSTRUCTIVE PULMONARY DISEASE, UNSPECIFIED (7) Diabetes Code(s): E11.9 - TYPE 2 DIABETES MELLITUS WITHOUT COMPLICATIONS (8) ESRD (end stage renal disease) on dialysis Assessment/Plan: Received hemodialysis this morning. Code(s): N18.6 - END STAGE RENAL DISEASE; Z99.2 - DEPENDENCE ON RENAL DIALYSIS (9) HTN (hypertension) Code(s): I10 - ESSENTIAL (PRIMARY) HYPERTENSION Qualifiers: Hypertension type: unspecified Qualified Code(s): I10 - Essential (primary ) hypertension (10) PAD (peripheral artery disease) Code(s): I73.9 - PERIPHERAL VASCULAR DISEASE, UNSPECIFIED (11) Weakness Code(s): R53.1 - WEAKNESS (12) Diastolic CHF Assessment/Plan: Markedly elevated BNP CXR: mild congestive changes. No JVD; not in respiratory distress. NSTEMI On carvedilol, nifedipine, losartan. F/u BUN/Cr, electrolytes, daily weight, Is and Os. Regular hemodialysis per systems consultant. Code(s): I50.30 - UNSPECIFIED DIASTOLIC (CONGESTIVE) HEART FAILURE (13) Cigarette nicotine dependence Code(s): F17.210 - NICOTINE DEPENDENCE, CIGARETTES, UNCOMPLICATED (14) PAD (peripheral artery disease) Code(s): I73.9 - PERIPHERAL VASCULAR DISEASE, UNSPECIFIED (15) Hyperlipidemia Code(s): E78.5 - HYPERLIPIDEMIA, UNSPECIFIED
--- NOTE | 2019-08-14 15:12 | CONSULT ---
Consult - text type - Consultation Consultation Note: Renal Consult for ESRD on HD/Hypertensive emergency and fluid overload This is a 84 year old woman with history of ESRD on HD (Monday and Monday), Hypertension, PVD, Smoker who presented from home with shortness of breath and found to have acute pulmonary congestion and hypertensive emergency. She missed her last scheduled dialysis on Monday. Pt was recently admitted with hypertensive urgency last Monday. She reports compliance with her medications but reports being more and more anxious. Denies any chest pain, palpitatoins, N/ V or diaphoresis. No Abd pain. s/p emergent HD this am, wth 2.4L UF. Pt complains of pains in her legs. PMhx: as above Allergies: as listed in EMR Family Hx: NC Social Hx: + tobacco use ROS: As per HPI, all other pertinent ros negative Home Medications Medication Instructions Recorded Alprazolam [Xanax] 0.25 mg PO BID PRN 02/19/19 Aspirin [ASA -] 81 mg PO DAILY 02/19/19 Atorvastatin Ca [Lipitor] 10 mg PO HS 02/19/19 Calcitriol [Calcitriol -] 0.25 mcg PO DAILY 02/19/19 Calcium Acetate 667 mg PO TID 02/19/19 Carvedilol [Coreg -] 6.25 mg PO BID 02/19/19 Acetaminophen [Tylenol .Regular 650 mg PO Q6H PRN tablet 04/19/19 Strength -] Ferrous Sulfate 325 mg PO BID 05/25/19 Nifedipine ER [Procardia XL -] 120 mg PO DAILY #180 tab.er.24 05/28/19 Amitriptyline HCl [Elavil -] 50 mg PO HS #30 tablet 06/07/19 Sevelamer Carbonate [Renvela -] 1,600 mg PO TIDCM tab 06/07/19 Cholestyramine/Aspartame [Questran 4 gm PO BID packet 07/05/19 Light Packet -] Ondansetron [Zofran -] 4 mg PO BID PRN tablet 07/12/19 Heparin - 5,000 unit SQ BID vial 07/20/19 Losartan Potassium [Cozaar -] 100 mg PO DAILY 08/09/19 Vital Signs Temperature 98.6 F 08/14/19 11:00 Pulse Rate 86 08/14/19 13:14 Respiratory Rate 18 08/14/19 13:14 Blood Pressure 129/66 08/14/19 13:14 O2 Sat by Pulse Oximetry (%) 98 08/14/19 09:00 Intake & Output 08/11/19 08/12/19 08/13/19 08/14/19 23:59 23:59 23:59 23:59 Intake Total 500 Output Total 2800 Balance -2300 Weight 52.163 kg NAD awake and alert neck supple RRR CTA, no rales or wheeze soft NT/ND no LE edema, clubbing or cyanosis CBC, BMP 08/14/19 03:26 08/14/19 03:26 Current Medications Acetaminophen (Tylenol -) 650 mg PO Q4H PRN PRN Reason: PAIN LEVEL 1-5 Alprazolam (Xanax -) 0.25 mg PO BID PRN PRN Reason: ANXIETY Last Admin: 08/14/19 11:25 Dose: 0.25 mg Amitriptyline HCl (Elavil -) 50 mg PO HS [facility] Aspirin (Asa -) 81 mg PO DAILY [facility] Last Admin: 08/14/19 10:16 Dose: 81 mg Atorvastatin Calcium (Lipitor -) 10 mg PO HS [facility] Calcium Acetate (Phoslo -) 667 mg PO TIDCM [facility] Carvedilol (Coreg -) 6.25 mg PO BID [facility] Last Admin: 08/14/19 10:15 Dose: Not Given Ferrous Sulfate (Feosol -) 325 mg PO BIDWM [facility] Last Admin: 08/14/19 10:16 Dose: 325 mg Heparin Sodium (Porcine) (Heparin -) 5,000 unit SQ BID [facility] Last Admin: 08/14/19 10:16 Dose: 5,000 unit Sodium Chloride (Normal Saline -) 250 mls @ 3,000 mls/hr IV PRN PRN PRN Reason: Hypotension during Dialysis Stop: 08/15/19 06:36 Nitroglycerin/Dextrose (Nitroglycerin 25mg/D5w 250ml) 25 mg in 250 mls @ 6 mls/ hr IVPB TITR [facility] Last Admin: 08/14/19 07:42 Dose: Not Given Insulin Aspart (Novolog Vial Sliding Scale -) 1 vial SQ BIDAC [facility]; Protocol Last Admin: 08/14/19 07:42 Dose: Not Given Losartan Potassium (Cozaar -) 100 mg PO DAILY [facility] Last Admin: 08/14/19 10:15 Dose: Not Given Nifedipine (Procardia Xl -) 120 mg PO DAILY [facility] Last Admin: 08/14/19 10:20 Dose: Not Given Sevelamer Carbonate (Renvela -) 1,600 mg PO TIDCM [facility] Last Admin: 08/14/19 12:43 Dose: Not Given 84 year old woman with history of ESRD on HD (Monday and Monday), Hypertension, PVD, Smoker who presented from home with shortness of breath and found to have acute pulmonary congestion and hypertensive emergency. 1. acute pulmonary edema 2. hypertensive emergency 3. elevated cardiac enzyme r/o ACS 4. ESRD on HD 5. LE pain 6. Anxiety s/p emergent HD this AM with 2.4L UF volume status appears much improved Troponins continue to rise, from hypertensive emergency vs. primary cardiac disease. EKG w/o overt changes compared to prior Cardiology consulted Renal diet, 1.2L fluid restriction continue Losartan, Nifedpine for hypertension offered psych referral but pt adamantly refused for anxiety Thank you Quentin Goyal DO
[2019-08-14] MEDS ORDERED: ATORVASTATIN CA 80 MG TABLET (FP) PO ONE (16:00)
[2019-08-14] MEDS ORDERED: HEPARIN NA (PORCINE) 5,000 UNITS/ML 1ML VIAL IVPUSH ONE (16:18)
[2019-08-14] MEDS ORDERED: HEPARIN NA (PORCINE) 5,000 UNITS/ML 1ML VIAL IVPUSH PRN (16:18)
[2019-08-14] MEDS ORDERED: HEPARIN - 25,000 UNIT in SODIUM CHLORIDE 495 ML IV SCH (17:15)
[2019-08-14] MEDS: CALCIUM ACETATE 667 MG CAPSULE (FP) PO SCH (17:30)
[2019-08-14] MEDS: HEPARIN INFUSION - 25,000 UNITS/500 ML INFUS.BAG IVPB SCH (17:44)
[2019-08-14] MEDS ORDERED: PT OWN MED DRAWER 7, Y5N ONE (20:54)
[2019-08-14] MEDS ORDERED: AMITRIPTYLINE HCL 25 MG TABLET (FP) PO SCH (22:00)
[2019-08-14] MEDS ORDERED: ATORVASTATIN CA 80 MG TABLET (FP) PO SCH (22:00)
[2019-08-14] MEDS ORDERED: ATORVASTATIN CA 10 MG TABLET (FP) PO SCH (22:00)
--- NOTE | 2019-08-14 22:11 | PN ---
Progress Note (short form) - Note Progress Note: Pt noted to have trops trending up. Dr Patricio pt and repeat EKG showed new T wave inversions in anteriolateral leads in addition to prior in inferior leads. Pt was started on heparin drip, to get high dose statins and had already received ASA in the am. Was however told by the nurse that she refused the heparin drip, any further PO meds or lab draws. Heparin drip was stopped.
[2019-08-14] MEDS: ATORVASTATIN CA 80 MG TABLET (FP) PO SCH (22:15)
[2019-08-15] MEDS ORDERED: ONDANSETRON 4 MG/2 ML VIAL IVPUSH ONE (05:33)
--- NOTE | 2019-08-15 05:45 | PN ---
Progress Note (short form) - Note Progress Note: Pt noted to have trops trending up. Dr Estrella saw pt and repeat EKG showed new T wave inversions in anteriolateral leads in addition to prior in inferior leads. Pt was started on heparin drip, to get high dose statins and had already received ASA in the am. Was however told by the nurse that she refused the heparin drip, any further PO meds or lab draws. Heparin drip was stopped. Pt woke up this am, trying to get out of bed. She said she is nauseous, but has no chest pain, no SOB, no belly pain. Pt however also feels lightheaded. Recycled BP-195/89 Pt requesting zofran- last QTc-489 One time order for zofran put in, EKG stat (pt refused EKG), noted to have pulled out her iv line, Unsure of pt's baseline mental status- will order CT head w/o contrast to r/o raised ICP (pt also refused)
[2019-08-15] MEDS: ALPRAZolam 0.25 MG TABLET PO PRN ×2 (07:03→21:46)
[2019-08-15] MEDS: NITROGLYCERIN 25MG/D5W 250ML 25 MG/250 ML ML IVPB SCH (07:25)
[2019-08-15] MEDS: INSULIN SLIDING SCALE (NOVOLOG) 1 VIAL SQ SCH ×2 (07:26→17:03)
[2019-08-15] MEDS: NIFEdipine E.R 60 MG TABLET (UD) PO SCH ×2 (07:53→10:00)
[2019-08-15 07:54] LABS: HEMATOCRIT 33.4 % (32.4-45.2); MCH 31.4 pg (25.7-33.7); MCHC 32.8 g/dl (32.0-36.0); MEAN CELL VOLUME 95.7 fl (80-96); MEAN PLT VOLUME 8.7 fl (7.5-11.1); PLATELET COUNT 150 K/MM3 (134-434); RBC 3.49 M/mm3 (3.60-5.2); WHITE BLOOD COUNT 7.8 K/mm3 (4.0-10.0)
[2019-08-15] MEDS: CARVEDILOL 6.25 MG TABLET (FP) PO SCH ×3 (07:56→21:46)
[2019-08-15] MEDS: ASPIRIN 81 MG CHEWABLE TABLETS PO SCH ×2 (07:56→10:00)
[2019-08-15] MEDS: CALCIUM ACETATE 667 MG CAPSULE (FP) PO SCH ×3 (08:00→17:46)
[2019-08-15] MEDS: SEVELAMER CARBONATE 800 MG TAB (FP) PO SCH ×3 (08:00→17:45)
[2019-08-15] MEDS: HEPARIN INFUSION - 25,000 UNITS/500 ML INFUS.BAG IVPB SCH ×2 (08:09→17:46)
[2019-08-15 08:26] LABS: BLOOD UREA NITROGEN 20.3 mg/dL (7-18); CALCIUM 8.4 mg/dL (8.5-10.1); CREATININE 5.1 mg/dL (0.55-1.3); MAGNESIUM 2.2 mg/dL (1.8-2.4); PHOSPHOROUS 4.3 mg/dL (2.5-4.9); POTASSIUM 3.8 mmol/L (3.5-5.1)
[2019-08-15] MEDS ORDERED: HEPARIN NA (PORCINE) 5,000 UNITS/ML 1ML VIAL IVPUSH PRN ×2 (09:10→09:11)
[2019-08-15] MEDS ORDERED: PROMETHAZINE HCL 25 MG TABLET PO PRN (09:58)
--- NOTE | 2019-08-15 10:02 | PN ---
Physical Exam: SUBJECTIVE: Patient seen and examined in the morning. Patient refused medications and heparin drip overnight. Patient has no events on cardiac monitoring. Patient denies chest pain, shortness of breath, abdominal pain, diarrhea, dizziness, and headache. Patient endorses feeling nauseous and OBJECTIVE: Vital Signs Period Temp Pulse Resp BP Sys/Banuelos Pulse Ox Last 24 Hr 98.4 F-98.6 F 82-120 14-26 119-201/60-89 97-99 GENERAL: The patient is awake, alert, and fully oriented, in no acute distress. HEAD: Normal with no signs of trauma. EYES: PERRL, extraocular movements intact, sclera anicteric, conjunctiva clear. NECK: Trachea midline, full range of motion, supple. LUNGS: Breath sounds equal, clear to auscultation bilaterally, no wheezes, HEART: Regular rate and rhythm, S1, S2, 2/6 murmur ABDOMEN: Soft, nontender, nondistended, normoactive bowel sounds, no guarding, EXTREMITIES: 2+ pulses, warm, well-perfused, no edema. NEUROLOGICAL: Cranial nerves II through XII grossly intact. PSYCH: Normal mood, normal affect. SKIN: Warm, dry, normal turgor, no rashes or lesions noted Laboratory Results - last 24 hr 08/14/19 08/14/19 08/14/19 09:15 11:15 12:00 WBC RBC Hgb Hct MCV MCH MCHC RDW Plt Count MPV PTT (Actin FS) Sodium Potassium Chloride Carbon Dioxide Anion Gap BUN Creatinine Est GFR (CKD-EPI)AfAm Est GFR (CKD-EPI)NonAf POC Glucometer Random Glucose Calcium Phosphorus Magnesium Troponin I 3.70 H* Hep C Ab Diagnostic Cancelled Hepatitis C RNA Cancelled HCV RNA PCR log coper hand/ml Cancelled HCV RNA (PCR) IUs/ml Cancelled HCV RNA PCR w/Genot Rflx Cancelled Liver Fibrosis Interp Cancelled Influenza A (Rapid) Negative Influenza B (Rapid) Negative 08/14/19 08/14/19 08/14/19 12:10 15:30 17:27 WBC RBC Hgb Hct MCV MCH MCHC RDW Plt Count MPV PTT (Actin FS) Sodium Potassium Chloride Carbon Dioxide Anion Gap BUN Creatinine Est GFR (CKD-EPI)AfAm Est GFR (CKD-EPI)NonAf POC Glucometer 90 Random Glucose Calcium Phosphorus Magnesium Troponin I Cancelled 3.86 H* Hep C Ab Diagnostic Hepatitis C RNA HCV RNA PCR log coper hand/ml HCV RNA (PCR) IUs/ml HCV RNA PCR w/Genot Rflx Liver Fibrosis Interp Influenza A (Rapid) Influenza B (Rapid) 08/15/19 08/15/19 08/15/19 06:36 07:30 07:30 WBC 7.8 RBC 3.49 L Hgb 11.0 Hct 33.4 MCV 95.7 MCH 31.4 MCHC 32.8 RDW 17.0 H Plt Count 150 D MPV 8.7 PTT (Actin FS) Sodium 141 Potassium 3.8 Chloride 105 Carbon Dioxide 28 Anion Gap 8 BUN 20.3 H Creatinine 5.1 H Est GFR (CKD-EPI)AfAm 8.48 Est GFR (CKD-EPI)NonAf 7.31 POC Glucometer 123 Random Glucose 114 H Calcium 8.4 L Phosphorus 4.3 Magnesium 2.2 Troponin I 3.17 H* Hep C Ab Diagnostic Hepatitis C RNA HCV RNA PCR log coper hand/ml HCV RNA (PCR) IUs/ml HCV RNA PCR w/Genot Rflx Liver Fibrosis Interp Influenza A (Rapid) Influenza B (Rapid) 08/15/19 07:30 WBC RBC Hgb Hct MCV MCH MCHC RDW Plt Count MPV PTT (Actin FS) 39.0 H Sodium Potassium Chloride Carbon Dioxide Anion Gap BUN Creatinine Est GFR (CKD-EPI)AfAm Est GFR (CKD-EPI)NonAf POC Glucometer Random Glucose Calcium Phosphorus Magnesium Troponin I Hep C Ab Diagnostic Hepatitis C RNA HCV RNA PCR log coper hand/ml HCV RNA (PCR) IUs/ml HCV RNA PCR w/Genot Rflx Liver Fibrosis Interp Influenza A (Rapid) Influenza B (Rapid) Active Medications Generic Name Dose Route Start Last Admin Trade Name Freq PRN Reason Stop Dose Admin Acetaminophen 650 mg 08/14/19 13:31 Tylenol - PO Q4H PRN PAIN LEVEL 1-5 Alprazolam 0.25 mg 08/14/19 06:03 08/15/19 07:03 Xanax - PO 0.25 mg BID PRN Administration ANXIETY Amitriptyline HCl 50 mg 08/14/19 22:00 08/14/19 22:14 Elavil - PO 50 mg HS [facility] Administration Aspirin 81 mg 08/14/19 10:00 08/15/19 07:56 Asa - PO 81 mg DAILY [facility] Administration Atorvastatin Calcium 80 mg 08/14/19 22:00 08/14/19 22:15 Lipitor - PO 80 mg HS [facility] Administration Calcium Acetate 667 mg 08/14/19 17:30 08/14/19 17:30 Phoslo - PO 667 mg TIDCM [facility] Administration Carvedilol 6.25 mg 08/14/19 10:00 08/15/19 07:56 Coreg - PO 6.25 mg BID [facility] Administration Ferrous Sulfate 325 mg 08/14/19 08:00 08/14/19 17:30 Feosol - PO 325 mg BIDWM [facility] Administration Heparin Sodium (Porcine) 5,000 unit 08/15/19 09:10 08/15/19 09:10 Heparin - IVPUSH 5,000 unit PRN PRN Administration Heparin Heparin Sodium (Porcine) 1,000 unit 08/15/19 09:11 Heparin - IVPUSH PRN PRN Heparin Sodium Chloride 250 mls @ 3,000 mls/hr 08/14/19 06:36 Normal Saline - IV 08/15/19 06:36 PRN PRN Hypotension during Dialysis Nitroglycerin/Dextrose 25 mg in 250 mls @ 6 mls/hr 08/14/19 07:00 08/15/19 07 :25 Nitroglycerin 25mg/D5w 250ml IVPB Not Given TITR [facility]Z 10 MCG/MIN Heparin Sodium/Dextrose 25,000 units in 500 mls @ 16 mls/hr 08/14/19 17:30 08:55 Heparin Infusion - IVPB 950 units/hr TITR [facility] 19 mls/hr Titration Protocol 800 UNITS/HR Insulin Aspart 1 vial 08/14/19 07:00 08/15/19 07:26 Novolog Vial Sliding Scale - SQ Not Given BIDAC [facility] Protocol Losartan Potassium 100 mg 08/14/19 10:00 08/14/19 10:15 Cozaar - PO Not Given DAILY [facility] Nifedipine 120 mg 08/14/19 10:00 08/15/19 07:53 Procardia Xl - PO 120 mg DAILY [facility] Administration Promethazine HCl 12.5 mg 08/15/19 09:58 Phenergan - PO Q4H PRN NAUSEA AND/OR VOMITING Sevelamer Carbonate 1,600 mg 08/14/19 08:00 08/14/19 17:30 Renvela - PO 1,600 mg TIDCM [facility] Administration ASSESSMENT/PLAN: 84 F PMH of DM, HTN, HLD, PAD, Asthma, COPD, ESRD on HD (Monday and Monday), 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 Neuro/ Psych -Patient is alerted and oriented. -Patient is complaining of anxiety -Continue Xanax 0.25 mg PO BID PRN Cardiovascular -Presented with HTN Emergency, elevated troponin -EKG shows significant T-wave inversions, patient started on heparin drip and continued on home beta blockers. -Received home meds and nitropaste -Tropinemia was likely secondary to hypternsive emergency- was 3.17 in the morning. Peaked at 3.60 -Continue home medications, received morning doses early today due to rejecting treatments last night -Coreg increased to 12.5 BID -Continue heparin drip -Echo ordered -EKG shows Wellen syndrome as per Dr. Lam, will get stress test once patient is euvolemic and BP is normalized. . -Cardiology consulted, appreciate recs Pulm -Hx of COPD, asthma. No home oxygen -Patient presented with shortness of breath, is stable today -2L NC GI -Currently experiencing nausea and bilious vomiting -Phenergan 12.5 mg IV Q6H PRN -Will continue to monitor Renal -Patient is ESRD on HD. Was formerly on HD MWF, 2 weeks was changed to Monday and Monday. Missed this week's HD. -Emergently dialyzed yesterday. -HD tomorrow -Nephrology consulted, appreciate recs Endo -Hx of DM -ISS ACHS -BGM ACHS MSK -Hx of OA s/p amputation right 1st and 2nd toe -Pain management as needed. Has received PO Morphine . F: no fluids E: monitor CMP N:Regular diet Dispo: For telemetry transfer Visit type - Emergency Visit Emergency Visit: Yes ED Registration Date: 08/14/19 Care time: The patient presented to the Emergency Department on the above date and was hospitalized for further evaluation of their emergent condition. - New Patient This patient is new to me today: Yes Date on this admission: 08/15/19 - Critical Care Critical Care patient: Yes Total Critical Care Time (in minutes): 45 Critical Care Statement: The care of this patient involved high complexity decision making to prevent further life threatening deterioration of the patient 's condition and/or to evaluate & treat vital organ system(s) failure or risk of failure. ATTENDING PHYSICIAN STATEMENT I saw and evaluated the patient. I reviewed the resident's note and discussed the case with the resident. I agree with the resident's findings and plan as documented. SUBJECTIVE: OBJECTIVE: ASSESSMENT AND PLAN:
[2019-08-15] MEDS ORDERED: PROMETHAZINE HCL 25 MG/1 ML VIAL IVPUSH PRN (10:24)
--- NOTE | 2019-08-15 10:24 | PN ---
Progress Note, Physician History of Present Illness: Dyspnea improving post HD. [facility] TWI on ECG; elevated TNI plateaued, ambulates with walker assistance. - Current Medication List Current Medications: Active Medications Acetaminophen (Tylenol -) 650 mg PO Q4H PRN PRN Reason: PAIN LEVEL 1-5 Alprazolam (Xanax -) 0.25 mg PO BID PRN PRN Reason: ANXIETY Last Admin: 08/15/19 07:03 Dose: 0.25 mg Amitriptyline HCl (Elavil -) 50 mg PO HS [facility] Last Admin: 08/14/19 22:14 Dose: 50 mg Aspirin (Asa -) 81 mg PO DAILY [facility] Last Admin: 08/15/19 07:56 Dose: 81 mg Atorvastatin Calcium (Lipitor -) 80 mg PO HS [facility] Last Admin: 08/14/19 22:15 Dose: 80 mg Calcium Acetate (Phoslo -) 667 mg PO TIDCM [facility] Last Admin: 08/14/19 17:30 Dose: 667 mg Carvedilol (Coreg -) 6.25 mg PO BID [facility] Last Admin: 08/15/19 07:56 Dose: 6.25 mg Ferrous Sulfate (Feosol -) 325 mg PO BIDWM [facility] Last Admin: 08/14/19 17:30 Dose: 325 mg Heparin Sodium (Porcine) (Heparin -) 5,000 unit IVPUSH PRN PRN PRN Reason: Heparin Last Admin: 08/15/19 09:10 Dose: 5,000 unit Heparin Sodium (Porcine) (Heparin -) 1,000 unit IVPUSH PRN PRN PRN Reason: Heparin Sodium Chloride (Normal Saline -) 250 mls @ 3,000 mls/hr IV PRN PRN PRN Reason: Hypotension during Dialysis Stop: 08/15/19 06:36 Nitroglycerin/Dextrose (Nitroglycerin 25mg/D5w 250ml) 25 mg in 250 mls @ 6 mls/ hr IVPB TITR [facility] Last Admin: 08/15/19 07:25 Dose: Not Given Heparin Sodium/Dextrose (Heparin Infusion -) 25,000 units in 500 mls @ 16 mls/ hr IVPB TITR [facility]; Protocol Last Titration: 08/15/19 08:55 Dose: 950 units/hr, 19 mls/hr Insulin Aspart (Novolog Vial Sliding Scale -) 1 vial SQ BIDAC [facility]; Protocol Last Admin: 08/15/19 07:26 Dose: Not Given Losartan Potassium (Cozaar -) 100 mg PO DAILY [facility] Last Admin: 08/14/19 10:15 Dose: Not Given Nifedipine (Procardia Xl -) 120 mg PO DAILY [facility] Last Admin: 08/15/19 07:53 Dose: 120 mg Promethazine HCl (Phenergan -) 12.5 mg PO Q4H PRN PRN Reason: NAUSEA AND/OR VOMITING Sevelamer Carbonate (Renvela -) 1,600 mg PO TIDCM [facility] Last Admin: 08/14/19 17:30 Dose: 1,600 mg - Objective Vital Signs: Vital Signs Temperature 98.4 F 08/14/19 15:00 Pulse Rate 85 08/15/19 09:00 Respiratory Rate 20 08/15/19 09:00 Blood Pressure 187/81 H 08/15/19 09:00 O2 Sat by Pulse Oximetry (%) 97 08/15/19 09:06 Constitutional: Yes: No Distress, Calm Neck: Yes: Supple Cardiovascular: Yes: Regular Rate and Rhythm Respiratory: Yes: Regular, Diminished, On Nasal O2 Gastrointestinal: Yes: Normal Bowel Sounds, Soft Edema: No Labs: CBC, BMP 08/15/19 07:30 08/15/19 07:30 INR, PTT INR 0.92 (0.83-1.09) 08/14/19 03:26 - ....Imaging Chest X-ray: Report Reviewed (Mild congestion) Ultrasound: Report Reviewed (No DVT bilaterally) EKG: Report Reviewed (NSR @ 80 [facility]) Problem List - Problems (1) Diastolic CHF Code(s): I50.30 - UNSPECIFIED DIASTOLIC (CONGESTIVE) HEART FAILURE Qualifiers: Heart failure chronicity: acute on chronic Qualified Code(s): I50.33 - Acute on chronic diastolic (congestive) heart failure (2) Elevated troponin Code(s): R74.8 - ABNORMAL LEVELS OF OTHER SERUM ENZYMES (3) Hyperlipidemia Code(s): E78.5 - HYPERLIPIDEMIA, UNSPECIFIED Qualifiers: Hyperlipidemia type: pure hypercholesterolemia Qualified Code(s): E78.00 - Pure hypercholesterolemia, unspecified; E78.0 - Pure hypercholesterolemia (4) Missed dialysis Code(s): ZQN4309 - (5) NSTEMI (non-ST elevated myocardial infarction) Code(s): I21.4 - NON-ST ELEVATION (NSTEMI) MYOCARDIAL INFARCTION (6) Anxiety Code(s): F41.9 - ANXIETY DISORDER, UNSPECIFIED (7) CAD (coronary artery disease) Code(s): I25.10 - ATHSCL HEART DISEASE OF [place] CORONARY ARTERY W/O ANG PCTRS Qualifiers: Coronary Disease-Associated Artery/Lesion type: [place] artery [place] vs. transplanted heart: [place] heart Associated angina: without angina Qualified Code(s): I25.10 - Atherosclerotic heart disease of [place] coronary artery without angina pectoris (8) COPD (chronic obstructive pulmonary disease) Code(s): J44.9 - CHRONIC OBSTRUCTIVE PULMONARY DISEASE, UNSPECIFIED Qualifiers: COPD type: unspecified COPD Qualified Code(s): J44.9 - Chronic obstructive pulmonary disease, unspecified (9) Diabetes mellitus Code(s): E11.9 - TYPE 2 DIABETES MELLITUS WITHOUT COMPLICATIONS Qualifiers: Diabetes mellitus type: type 2 Diabetes mellitus complication status: with kidney complications Diabetes mellitus complication detail: with chronic kidney disease Chronic kidney disease stage: on chronic dialysis (10) ESRD (end stage renal disease) on dialysis Code(s): N18.6 - END STAGE RENAL DISEASE; Z99.2 - DEPENDENCE ON RENAL DIALYSIS (11) Hyperlipidemia associated with type 2 diabetes mellitus Code(s): E11.69 - TYPE 2 DIABETES MELLITUS WITH OTHER SPECIFIED COMPLICATION; E78.5 - HYPERLIPIDEMIA, UNSPECIFIED (12) Hypertension, uncontrolled Code(s): I10 - ESSENTIAL (PRIMARY) HYPERTENSION (13) Hypertensive heart disease Code(s): I11.9 - HYPERTENSIVE HEART DISEASE WITHOUT HEART FAILURE Qualifiers: Heart failure presence: with heart failure Heart failure type: diastolic Heart failure chronicity: acute on chronic Qualified Code(s): I11.0 - Hypertensive heart disease with heart failure; I50.33 - Acute on chronic diastolic (congestive) heart failure (14) PAD (peripheral artery disease) Code(s): I73.9 - PERIPHERAL VASCULAR DISEASE, UNSPECIFIED (15) S/P femoropopliteal bypass surgery Code(s): Z95.828 - PRESENCE OF OTHER VASCULAR IMPLANTS AND GRAFTS (16) Subendocardial ischemia Code(s): I24.8 - OTHER FORMS OF ACUTE ISCHEMIC HEART DISEASE Assessment/Plan 05/27/2019 Echo: Normal LV size and fxn LVEF 55-60%, grade I DD, normal RV fxn, normal atrial sizes, mild MR, TR, AR 1. CAD s/p NSTEMI 2. Hypertensive urgency in a patient with known history of hypertensive cardiovascular disease 3. End-stage renal disease on hemodialysis, dialysis noncompliance 4. Acute on chronic diastolic heart failure 6. DM 7. Hypercholesterolemia 8. History of PAD post right fem-pop bypass post toe amputation for osteomyelitis 9. COPD 10. Anemia 11. Anxiety PLAN: 1. Continue IV heparin, trend trops to document peak, f/u echocardiogram and ECG 2. Continue Lipitor 80 qd, increase Coreg 12.5 bid, Cozaar 100 qd, Procardia XL 120 qd, ASA 81 qd, Plavix 75 qd 3. Hemodialysis as per renal service, and emphasized importance of compliance
--- NOTE | 2019-08-15 10:28 | EKG ---
Test Reason : Blood Pressure : / mmHG Vent. Rate : 080 BPM Atrial Rate : 080 BPM P-R Int : 162 ms QRS Dur : 092 ms QT Int : 466 ms P-R-T Axes : 045 047 181 degrees QTc Int : 537 ms NORMAL SINUS RHYTHM PROLONGED QT ABNORMAL ECG WHEN COMPARED WITH ECG OF 14-AUG-2019 16:33, NONSPECIFIC T WAVE ABNORMALITY HAS REPLACED INVERTED T WAVES IN INFERIOR LEADS T WAVE INVERSION MORE EVIDENT IN ANTERIOR LEADS Confirmed by ZURDO DC, LORETA ([id number]) on 08/15/2019 10:28:12 AM Referred By: Confirmed By:LORETA RENNER MD
--- NOTE | 2019-08-15 10:29 | EKG ---
Test Reason : Blood Pressure : / mmHG Vent. Rate : 091 BPM Atrial Rate : 091 BPM P-R Int : 104 ms QRS Dur : 094 ms QT Int : 398 ms P-R-T Axes : 003 074 -89 degrees QTc Int : 489 ms SINUS RHYTHM WITH SHORT MA PROLONGED QT ABNORMAL ECG WHEN COMPARED WITH ECG OF 14-AUG-2019 02:45, NON-SPECIFIC CHANGE IN ST SEGMENT IN ANTERIOR LEADS T WAVE INVERSION NOW EVIDENT IN ANTEROLATERAL LEADS Confirmed by LORETA RENNER MD ([id number]) on 08/15/2019 10:29:10 AM Referred By: Confirmed By:LORETA RENNER MD
--- NOTE | 2019-08-15 10:29 | EKG ---
Test Reason : Blood Pressure : / mmHG Vent. Rate : 094 BPM Atrial Rate : 094 BPM P-R Int : 130 ms QRS Dur : 094 ms QT Int : 376 ms P-R-T Axes : -15 066 001 degrees QTc Int : 470 ms POOR DATA QUALITY, INTERPRETATION MAY BE ADVERSELY AFFECTED NORMAL SINUS RHYTHM ABNORMAL ECG WHEN COMPARED WITH ECG OF 09-AUG-2019 20:07, NONSPECIFIC T WAVE ABNORMALITY, IMPROVED IN ANTEROLATERAL LEADS Confirmed by ZURDO DC, LORETA ([id number]) on 08/15/2019 10:29:21 AM Referred By: Confirmed By:LORETA RENNER MD
[2019-08-15] MEDS: LOSARTAN POTASSIUM 50 MG TABLET (FP) PO SCH (10:31)
--- NOTE | 2019-08-15 10:56 | PN ---
Teaching Attending Note Name of Resident: Leatha Diallo ATTENDING PHYSICIAN STATEMENT I saw and evaluated the patient. I reviewed the resident's note and discussed the case with the resident. I agree with the resident's findings and plan as documented. SUBJECTIVE: Pt seen and examined in the ICU. Denies shortness of breath or chest pain. OBJECTIVE: Vital Signs Period Temp Pulse Resp BP Sys/Banuelos Pulse Ox Last 24 Hr 98.4 F-98.6 F 80-120 14-26 119-201/60-89 97-99 Intake & Output 08/12/19 08/13/19 08/14/19 08/15/19 23:59 23:59 23:59 23:59 Intake Total 500 Output Total 2800 Balance -2300 Weight 52.163 kg Gen: NAD at rest Heart: RRR Lung: decreased breath sounds at the bases Abd: soft, nontender Ext: no edema CBC, BMP 08/15/19 07:30 08/15/19 07:30 Active Medications Acetaminophen (Tylenol -) 650 mg PO Q4H PRN PRN Reason: PAIN LEVEL 1-5 Alprazolam (Xanax -) 0.25 mg PO BID PRN PRN Reason: ANXIETY Last Admin: 08/15/19 07:03 Dose: 0.25 mg Amitriptyline HCl (Elavil -) 50 mg PO HS [facility] Last Admin: 08/14/19 22:14 Dose: 50 mg Aspirin (Asa -) 81 mg PO DAILY [facility] Last Admin: 08/15/19 07:56 Dose: 81 mg Atorvastatin Calcium (Lipitor -) 80 mg PO HS [facility] Last Admin: 08/14/19 22:15 Dose: 80 mg Calcium Acetate (Phoslo -) 667 mg PO TIDCM [facility] Last Admin: 08/14/19 17:30 Dose: 667 mg Carvedilol (Coreg -) 6.25 mg PO BID [facility] Last Admin: 08/15/19 10:31 Dose: Not Given Ferrous Sulfate (Feosol -) 325 mg PO BIDWM [facility] Last Admin: 08/14/19 17:30 Dose: 325 mg Heparin Sodium (Porcine) (Heparin -) 5,000 unit IVPUSH PRN PRN PRN Reason: Heparin Last Admin: 08/15/19 09:10 Dose: 5,000 unit Heparin Sodium (Porcine) (Heparin -) 1,000 unit IVPUSH PRN PRN PRN Reason: Heparin Sodium Chloride (Normal Saline -) 250 mls @ 3,000 mls/hr IV PRN PRN PRN Reason: Hypotension during Dialysis Stop: 08/15/19 06:36 Nitroglycerin/Dextrose (Nitroglycerin 25mg/D5w 250ml) 25 mg in 250 mls @ 6 mls/ hr IVPB TITR [facility] Last Admin: 08/15/19 07:25 Dose: Not Given Heparin Sodium/Dextrose (Heparin Infusion -) 25,000 units in 500 mls @ 16 mls/ hr IVPB TITR [facility]; Protocol Last Titration: 08/15/19 08:55 Dose: 950 units/hr, 19 mls/hr Insulin Aspart (Novolog Vial Sliding Scale -) 1 vial SQ BIDAC [facility]; Protocol Last Admin: 08/15/19 07:26 Dose: Not Given Losartan Potassium (Cozaar -) 100 mg PO DAILY [facility] Last Admin: 08/15/19 10:31 Dose: Not Given Nifedipine (Procardia Xl -) 120 mg PO DAILY [facility] Last Admin: 08/15/19 07:53 Dose: 120 mg Promethazine HCl (Phenergan Injection -) 12.5 mg IVPUSH Q6H PRN PRN Reason: NAUSEA Last Admin: 08/15/19 10:34 Dose: 12.5 mg Sevelamer Carbonate (Renvela -) 1,600 mg PO TIDCM [facility] Last Admin: 08/14/19 17:30 Dose: 1,600 mg ASSESSMENT AND PLAN: Acute Hypoxic Respiratory Failure Hypertensive Urgency Acute on Chronic Diastolic Heart Failure +Troponins - r/o NSTEMI vs [place] Ischemia ESRD on HD COPD PAD HTN DM Hyperlipidemia Anxiety - HD per renal with ultrafiltration - O2 to keep SpO2 >90% - on ASA, statin, beta pepito - anticoagulation per cardiology - BP control - inhaled bronchodilators as needed - discussed importance with HD compliance, states that she gets very anxious - DVT prophylaxis - can monitor on telemetry
[2019-08-15] MEDS ORDERED: CARVEDILOL 6.25 MG TABLET (FP) PO ONE (10:58)
[2019-08-15] MEDS ORDERED: hydrALAZINE HCL 10 MG TABLET PO SCH (12:00)
[2019-08-15] MEDS: hydrALAZINE HCL 10 MG TABLET PO SCH ×3 (12:00→21:46)
[2019-08-15] MEDS: CLOPIDOGREL BISULFATE 75 MG TABLET (FP) PO SCH (12:20)
[2019-08-15] MEDS: FERROUS SO4 325 MG TABLET (FP) PO SCH ×2 (12:23→17:45)
[2019-08-15] MEDS ORDERED: SODIUM CHLORIDE 250 ML IV PRN ×2 (14:13→18:39)
--- NOTE | 2019-08-15 14:13 | PN ---
Progress Note (short form) - Note Progress Note: Renal follow up for ESRD on HD Seen and examined at the bedside awake and alert had some nausea this am no chest pain, abd pain, fever or chills shortness of breath resolved Vital Signs Temperature 98.4 F 08/15/19 10:00 Pulse Rate 76 08/15/19 12:00 Respiratory Rate 20 08/15/19 12:00 Blood Pressure 116/54 L 08/15/19 12:00 O2 Sat by Pulse Oximetry (%) 97 08/15/19 09:06 Intake & Output 08/12/19 08/13/19 08/14/19 08/15/19 23:59 23:59 23:59 23:59 Intake Total 500 Output Total 2800 Balance -2300 Weight 52.163 kg NAD awake and alert neck supple RRR CTA, no rales or wheeze soft NT/ND no LE edema, clubbing or cyanosis CBC, BMP 08/15/19 07:30 08/15/19 07:30 Current Medications Acetaminophen (Tylenol -) 650 mg PO Q4H PRN PRN Reason: PAIN LEVEL 1-5 Alprazolam (Xanax -) 0.25 mg PO BID PRN PRN Reason: ANXIETY Last Admin: 08/15/19 07:03 Dose: 0.25 mg Amitriptyline HCl (Elavil -) 50 mg PO HS [facility] Last Admin: 08/14/19 22:14 Dose: 50 mg Aspirin (Asa -) 81 mg PO DAILY [facility] Last Admin: 08/15/19 10:00 Dose: Not Given Atorvastatin Calcium (Lipitor -) 80 mg PO HS [facility] Last Admin: 08/14/19 22:15 Dose: 80 mg Calcium Acetate (Phoslo -) 667 mg PO TIDCM [facility] Last Admin: 08/15/19 12:30 Dose: 667 mg Carvedilol (Coreg -) 12.5 mg PO BID [facility] Clopidogrel Bisulfate (Plavix -) 75 mg PO DAILY [facility] Last Admin: 08/15/19 12:20 Dose: 75 mg Ferrous Sulfate (Feosol -) 325 mg PO BIDWM [facility] Last Admin: 08/15/19 12:23 Dose: 325 mg Heparin Sodium (Porcine) (Heparin -) 5,000 unit IVPUSH PRN PRN PRN Reason: Heparin Last Admin: 08/15/19 09:10 Dose: 5,000 unit Heparin Sodium (Porcine) (Heparin -) 1,000 unit IVPUSH PRN PRN PRN Reason: Heparin Hydralazine HCl (Apresoline -) 10 mg PO TID [facility] Sodium Chloride (Normal Saline -) 250 mls @ 3,000 mls/hr IV PRN PRN PRN Reason: Hypotension during Dialysis Stop: 08/15/19 06:36 Nitroglycerin/Dextrose (Nitroglycerin 25mg/D5w 250ml) 25 mg in 250 mls @ 6 mls/ hr IVPB TITR [facility] Last Admin: 08/15/19 07:25 Dose: Not Given Heparin Sodium/Dextrose (Heparin Infusion -) 25,000 units in 500 mls @ 16 mls/ hr IVPB TITR [facility]; Protocol Last Titration: 08/15/19 08:55 Dose: 950 units/hr, 19 mls/hr Insulin Aspart (Novolog Vial Sliding Scale -) 1 vial SQ BIDAC [facility]; Protocol Last Admin: 08/15/19 07:26 Dose: Not Given Losartan Potassium (Cozaar -) 100 mg PO DAILY [facility] Last Admin: 08/15/19 10:31 Dose: Not Given Nifedipine (Procardia Xl -) 120 mg PO DAILY [facility] Last Admin: 08/15/19 10:00 Dose: Not Given Promethazine HCl (Phenergan Injection -) 12.5 mg IVPUSH Q6H PRN PRN Reason: NAUSEA Last Admin: 08/15/19 10:34 Dose: 12.5 mg Sevelamer Carbonate (Renvela -) 1,600 mg PO TIDCM [facility] Last Admin: 08/15/19 12:22 Dose: 1,600 mg 84 year old woman with history of ESRD on HD (Monday and Monday), Hypertension, PVD, Smoker who presented from home with shortness of breath and found to have acute pulmonary congestion and hypertensive emergency. 1. acute pulmonary edema 2. hypertensive emergency 3. elevated cardiac enzyme r/o ACS 4. ESRD on HD 5. LE pain 6. Anxiety no acute need for dialysis/UF today next treatment in AM Renal diet, 1.2L fluid restriction BP above goal today, can add hydralazine as needed continue Losartan, Nifedpine for hypertension Cardiology following, for stress test once BP and volume status at goal. Thank you Quentin Goyal DO
--- NOTE | 2019-08-15 17:55 | PN ---
Progress Note, Physician Chief Complaint: in bed NAD no CP SOB feeling better after dialysis consults tests meds noted - Current Medication List Current Medications: Active Medications Acetaminophen (Tylenol -) 650 mg PO Q4H PRN PRN Reason: PAIN LEVEL 1-5 Alprazolam (Xanax -) 0.25 mg PO BID PRN PRN Reason: ANXIETY Last Admin: 08/15/19 07:03 Dose: 0.25 mg Amitriptyline HCl (Elavil -) 50 mg PO HS [facility] Last Admin: 08/14/19 22:14 Dose: 50 mg Aspirin (Asa -) 81 mg PO DAILY [facility] Last Admin: 08/15/19 10:00 Dose: Not Given Atorvastatin Calcium (Lipitor -) 80 mg PO HS [facility] Last Admin: 08/14/19 22:15 Dose: 80 mg Calcium Acetate (Phoslo -) 667 mg PO TIDCM [facility] Last Admin: 08/15/19 17:46 Dose: 667 mg Carvedilol (Coreg -) 12.5 mg PO BID [facility] Clopidogrel Bisulfate (Plavix -) 75 mg PO DAILY [facility] Last Admin: 08/15/19 12:20 Dose: 75 mg Ferrous Sulfate (Feosol -) 325 mg PO BIDWM [facility] Last Admin: 08/15/19 17:45 Dose: 325 mg Heparin Sodium (Porcine) (Heparin -) 5,000 unit IVPUSH PRN PRN PRN Reason: Heparin Last Admin: 08/15/19 09:10 Dose: 5,000 unit Heparin Sodium (Porcine) (Heparin -) 1,000 unit IVPUSH PRN PRN PRN Reason: Heparin Hydralazine HCl (Apresoline -) 10 mg PO TID [facility] Last Admin: 08/15/19 15:00 Dose: 10 mg Sodium Chloride (Normal Saline -) 250 mls @ 3,000 mls/hr IV PRN PRN PRN Reason: Hypotension during Dialysis Stop: 08/15/19 06:36 Heparin Sodium/Dextrose (Heparin Infusion -) 25,000 units in 500 mls @ 16 mls/ hr IVPB TITR [facility]; Protocol Last Admin: 08/15/19 17:46 Dose: Not Given Sodium Chloride (Normal Saline -) 250 mls @ 3,000 mls/hr IV PRN PRN PRN Reason: Hypotension during Dialysis Stop: 08/16/19 14:13 Insulin Aspart (Novolog Vial Sliding Scale -) 1 vial SQ BIDAC [facility]; Protocol Last Admin: 08/15/19 17:03 Dose: Not Given Losartan Potassium (Cozaar -) 100 mg PO DAILY [facility] Last Admin: 08/15/19 10:31 Dose: Not Given Nifedipine (Procardia Xl -) 120 mg PO DAILY [facility] Last Admin: 08/15/19 10:00 Dose: Not Given Promethazine HCl (Phenergan Injection -) 12.5 mg IVPUSH Q6H PRN PRN Reason: NAUSEA Last Admin: 08/15/19 10:34 Dose: 12.5 mg Sevelamer Carbonate (Renvela -) 1,600 mg PO TIDCM [facility] Last Admin: 08/15/19 17:45 Dose: 1,600 mg - Objective Vital Signs: Vital Signs Temperature 98.3 F 08/15/19 14:00 Pulse Rate 71 08/15/19 16:00 Respiratory Rate 16 08/15/19 16:00 Blood Pressure 127/52 L 08/15/19 16:00 O2 Sat by Pulse Oximetry (%) 95 08/15/19 17:00 Constitutional: Yes: No Distress, Calm Eyes: Yes: Conjunctiva Clear HENT: Yes: Atraumatic Neck: Yes: Supple Cardiovascular: Yes: Regular Rate and Rhythm Respiratory: Yes: Diminished Gastrointestinal: Yes: Soft. No: Tenderness Genitourinary: No: Hematuria Musculoskeletal: No: Joint Stiffness, Joint Swelling Extremities: No: Cold, Cool, Cyanosis Edema: No Integumentary: No: Rash, Venous Stasis Changes Neurological: Yes: Alert ...Motor Strength: WNL Psychiatric: Yes: Alert. No: Agitated, Suicidal Ideation Labs: CBC, BMP 08/15/19 07:30 08/15/19 07:30 INR, PTT INR 0.92 (0.83-1.09) 08/14/19 03:26 - ....Imaging Other: Report Reviewed Assessment/Plan 84 YOF ASHD HTN CHF COPD ESRD / HD PVD admitted to ICU with uncontrolled HTN, SOB, nonSTEMI / +CE iv heparin, BP control; cardiology fu HD per renal dw pt compliance issue falls PFX d/w pt and staff
[2019-08-15] MEDS: ATORVASTATIN CA 80 MG TABLET (FP) PO SCH (21:46)
[2019-08-15] MEDS: AMITRIPTYLINE HCL 25 MG TABLET (FP) PO SCH (21:46)
[2019-08-15] MEDS ORDERED: ATORVASTATIN CA 80 MG TABLET (FP) PO SCH (22:00)
[2019-08-16] MEDS: hydrALAZINE HCL 10 MG TABLET PO SCH ×2 (06:31→13:47)
[2019-08-16] MEDS: INSULIN SLIDING SCALE (NOVOLOG) 1 VIAL SQ SCH ×2 (06:31→16:41)
--- NOTE | 2019-08-16 07:56 | PN ---
Progress Note, Physician Chief Complaint: in bed NAD VSS off IV heparin echo ordered by cardiology; per H staff pt refused the echo then she said she will reconsider for dialysis today - Current Medication List Current Medications: Active Medications Acetaminophen (Tylenol -) 650 mg PO Q4H PRN PRN Reason: PAIN LEVEL 1-5 Alprazolam (Xanax -) 0.25 mg PO BID PRN PRN Reason: ANXIETY Last Admin: 08/15/19 21:46 Dose: 0.25 mg Amitriptyline HCl (Elavil -) 50 mg PO HS [facility] Last Admin: 08/15/19 21:46 Dose: 50 mg Aspirin (Asa -) 81 mg PO DAILY [facility] Atorvastatin Calcium (Lipitor -) 80 mg PO HS [facility] Last Admin: 08/15/19 21:46 Dose: 80 mg Calcium Acetate (Phoslo -) 667 mg PO TIDCM [facility] Carvedilol (Coreg -) 12.5 mg PO BID [facility] Last Admin: 08/15/19 21:46 Dose: 12.5 mg Clopidogrel Bisulfate (Plavix -) 75 mg PO DAILY [facility] Last Admin: 08/15/19 12:20 Dose: 75 mg Ferrous Sulfate (Feosol -) 325 mg PO BIDWM [facility] Heparin Sodium (Porcine) (Heparin -) 5,000 unit IVPUSH PRN PRN PRN Reason: Heparin Last Admin: 08/15/19 09:10 Dose: 5,000 unit Heparin Sodium (Porcine) (Heparin -) 1,000 unit IVPUSH PRN PRN PRN Reason: Heparin Hydralazine HCl (Apresoline -) 10 mg PO TID [facility] Last Admin: 08/16/19 06:31 Dose: 10 mg Heparin Sodium/Dextrose (Heparin Infusion -) 25,000 units in 500 mls @ 16 mls/ hr IVPB TITR [facility]; Protocol Last Admin: 08/15/19 17:46 Dose: Not Given Sodium Chloride (Normal Saline -) 250 mls @ 3,000 mls/hr IV PRN PRN PRN Reason: Hypotension during Dialysis Stop: 08/16/19 14:13 Sodium Chloride (Normal Saline -) 250 mls @ 3,000 mls/hr IV PRN PRN PRN Reason: Hypotension during Dialysis Insulin Aspart ([facility]ial Sliding [facility] -) [facility]; Protocol Last Admin: 08/16/19 06:31 Dose: Not Given Losartan Potassium (Cozaar -) 100 mg PO DAILY [facility] Nifedipine (Procardia Xl -) 120 mg PO DAILY [facility] Promethazine HCl (Phenergan Injection -) 12.5 mg IVPUSH Q6H PRN PRN Reason: NAUSEA Last Admin: 08/15/19 10:34 Dose: 12.5 mg Sevelamer Carbonate (Renvela -) 1,600 mg PO TIDCM [facility] - Objective Vital Signs: Vital Signs Temperature 98.1 F 08/16/19 06:00 Pulse Rate 63 08/16/19 06:00 Respiratory Rate 18 08/16/19 06:00 Blood Pressure 140/58 L 08/16/19 06:00 O2 Sat by Pulse Oximetry (%) 95 08/15/19 21:00 Constitutional: Yes: No Distress, Calm Eyes: Yes: Conjunctiva Clear HENT: Yes: Atraumatic Neck: Yes: Supple Cardiovascular: Yes: Regular Rate and Rhythm Respiratory: Yes: CTA Bilaterally Gastrointestinal: Yes: Soft. No: Tenderness Genitourinary: No: Hematuria Extremities: No: Cold, Cool Edema: No Integumentary: No: Rash, Venous Stasis Changes Neurological: Yes: Alert ...Motor Strength: WNL Psychiatric: Yes: Alert, Oriented. No: Agitated, Suicidal Ideation Labs: CBC, BMP 08/15/19 07:30 INR, PTT INR 0.92 (0.83-1.09) 08/14/19 03:26 - ....Imaging Other: Report Reviewed Assessment/Plan 84 YOF ASHD HTN CHF COPD ESRD / HD PVD DM admitted to ICU with uncontrolled HTN, SOB, nonSTEMI / +CE off iv heparin, BP control; cardiology f/u; echo HD per renal dw pt compliance issue falls PFX d/w pt and staff
[2019-08-16 08:16] LABS: BASO % 0.7 % (0-2.0); EOS % 4.6 % (0-4.5); HEMATOCRIT 26.5 % (32.4-45.2); HEMOGLOBIN 8.7 GM/dL (10.7-15.3); LYMPH % 27.2 % (8-40); MCH 31.4 pg (25.7-33.7); MCHC 32.9 g/dl (32.0-36.0); MEAN CELL VOLUME 95.2 fl (80-96); MONO % 10.6 % (3.8-10.2); NEUT % 56.9 % (42.8-82.8); PLATELET COUNT 152 K/MM3 (134-434); RBC 2.78 M/mm3 (3.60-5.2); RDW 17.5 % (11.6-15.6); WHITE BLOOD COUNT 5.8 K/mm3 (4.0-10.0)
[2019-08-16] MEDS: CALCIUM ACETATE 667 MG CAPSULE (FP) PO SCH ×3 (08:33→16:41)
[2019-08-16] MEDS: FERROUS SO4 325 MG TABLET (FP) PO SCH ×2 (08:33→16:41)
[2019-08-16] MEDS: SEVELAMER CARBONATE 800 MG TAB (FP) PO SCH ×3 (08:34→16:41)
[2019-08-16] MEDS: ALPRAZolam 0.25 MG TABLET PO PRN ×2 (08:36→22:11)
[2019-08-16 08:48] LABS: BLOOD UREA NITROGEN 28.4 mg/dL (7-18); CALCIUM 8.1 mg/dL (8.5-10.1); CREATININE 6.8 mg/dL (0.55-1.3); POTASSIUM 3.7 mmol/L (3.5-5.1)
--- NOTE | 2019-08-16 10:12 | PN ---
Progress Note, Physician History of Present Illness: Dyspnea improving post HD. Wellens TWI on ECG; elevated TNI plateaued, ambulates with walker assistance. - Current Medication List Current Medications: Active Medications Acetaminophen (Tylenol -) 650 mg PO Q4H PRN PRN Reason: PAIN LEVEL 1-5 Alprazolam (Xanax -) 0.25 mg PO BID PRN PRN Reason: ANXIETY Last Admin: 08/16/19 08:36 Dose: 0.25 mg Amitriptyline HCl (Elavil -) 50 mg PO HS [facility] Last Admin: 08/15/19 21:46 Dose: 50 mg Aspirin (Asa -) 81 mg PO DAILY [facility] Atorvastatin Calcium (Lipitor -) 80 mg PO HS [facility] Last Admin: 08/15/19 21:46 Dose: 80 mg Calcium Acetate (Phoslo -) 667 mg PO TIDCM [facility] Last Admin: 08/16/19 08:33 Dose: 667 mg Carvedilol (Coreg -) 12.5 mg PO BID [facility] Last Admin: 08/15/19 21:46 Dose: 12.5 mg Clopidogrel Bisulfate (Plavix -) 75 mg PO DAILY [facility] Last Admin: 08/15/19 12:20 Dose: 75 mg Ferrous Sulfate (Feosol -) 325 mg PO BIDWM [facility] Last Admin: 08/16/19 08:33 Dose: 325 mg Heparin Sodium (Porcine) (Heparin -) 5,000 unit IVPUSH PRN PRN PRN Reason: Heparin Last Admin: 08/15/19 09:10 Dose: 5,000 unit Heparin Sodium (Porcine) (Heparin -) 1,000 unit IVPUSH PRN PRN PRN Reason: Heparin Hydralazine HCl (Apresoline -) 10 mg PO TID [facility] Last Admin: 08/16/19 06:31 Dose: 10 mg Heparin Sodium/Dextrose (Heparin Infusion -) 25,000 units in 500 mls @ 16 mls/ hr IVPB TITR [facility]; Protocol Last Admin: 08/15/19 17:46 Dose: Not Given Sodium Chloride (Normal Saline -) 250 mls @ 3,000 mls/hr IV PRN PRN PRN Reason: Hypotension during Dialysis Stop: 08/16/19 14:13 Sodium Chloride (Normal Saline -) 250 mls @ 3,000 mls/hr IV PRN PRN PRN Reason: Hypotension during Dialysis Insulin Aspart (Novolog Vial Sliding Scale -) 1 vial SQ BIDAC [facility]; Protocol Last Admin: 08/16/19 06:31 Dose: Not Given Losartan Potassium (Cozaar -) 100 mg PO DAILY [facility] Nifedipine (Procardia Xl -) 120 mg PO DAILY [facility] Promethazine HCl (Phenergan Injection -) 12.5 mg IVPUSH Q6H PRN PRN Reason: NAUSEA Last Admin: 08/15/19 10:34 Dose: 12.5 mg Sevelamer Carbonate (Renvela -) 1,600 mg PO TIDCM [facility] Last Admin: 08/16/19 08:34 Dose: 1,600 mg - Objective Vital Signs: Vital Signs Temperature 98.2 F 08/16/19 07:45 Pulse Rate 73 08/16/19 08:00 Respiratory Rate 18 08/16/19 08:00 Blood Pressure 130/57 L 08/16/19 08:00 O2 Sat by Pulse Oximetry (%) 95 08/15/19 21:00 Constitutional: Yes: No Distress, Calm, Thin Neck: Yes: Supple Cardiovascular: Yes: Regular Rate and Rhythm Respiratory: Yes: Regular, Diminished, On Nasal O2 Gastrointestinal: Yes: Normal Bowel Sounds, Soft Edema: No Labs: CBC, BMP 08/16/19 06:20 08/16/19 06:20 INR, PTT INR 0.92 (0.83-1.09) 08/14/19 03:26 - ....Imaging EKG: Report Reviewed (NSR with anterolateral TWI c/w Wellens T waves) Problem List - Problems (1) Diastolic CHF Code(s): I50.30 - UNSPECIFIED DIASTOLIC (CONGESTIVE) HEART FAILURE Qualifiers: Qualified Code(s): I50.33 - Acute on chronic diastolic (congestive) heart failure (2) Elevated troponin Code(s): R74.8 - ABNORMAL LEVELS OF OTHER SERUM ENZYMES (3) Hyperlipidemia Code(s): E78.5 - HYPERLIPIDEMIA, UNSPECIFIED Qualifiers: Qualified Code(s): E78.00 - Pure hypercholesterolemia, unspecified; E78.0 - Pure hypercholesterolemia (4) Missed dialysis Code(s): LED1016 - (5) NSTEMI (non-ST elevated myocardial infarction) Code(s): I21.4 - NON-ST ELEVATION (NSTEMI) MYOCARDIAL INFARCTION (6) Anxiety Code(s): F41.9 - ANXIETY DISORDER, UNSPECIFIED (7) CAD (coronary artery disease) Code(s): I25.10 - ATHSCL HEART DISEASE OF [place] CORONARY ARTERY W/O ANG PCTRS Qualifiers: Qualified Code(s): I25.10 - Atherosclerotic heart disease of [place] coronary artery without angina pectoris (8) COPD (chronic obstructive pulmonary disease) Code(s): J44.9 - CHRONIC OBSTRUCTIVE PULMONARY DISEASE, UNSPECIFIED Qualifiers: Qualified Code(s): J44.9 - Chronic obstructive pulmonary disease, unspecified (9) Diabetes mellitus Code(s): E11.9 - TYPE 2 DIABETES MELLITUS WITHOUT COMPLICATIONS (10) ESRD (end stage renal disease) on dialysis Code(s): N18.6 - END STAGE RENAL DISEASE; Z99.2 - DEPENDENCE ON RENAL DIALYSIS (11) Hyperlipidemia associated with type 2 diabetes mellitus Code(s): E11.69 - TYPE 2 DIABETES MELLITUS WITH OTHER SPECIFIED COMPLICATION; E78.5 - HYPERLIPIDEMIA, UNSPECIFIED (12) Hypertension, uncontrolled Code(s): I10 - ESSENTIAL (PRIMARY) HYPERTENSION (13) Hypertensive heart disease Code(s): I11.9 - HYPERTENSIVE HEART DISEASE WITHOUT HEART FAILURE Qualifiers: Qualified Code(s): I11.0 - Hypertensive heart disease with heart failure; I50.33 - Acute on chronic diastolic (congestive) heart failure (14) PAD (peripheral artery disease) Code(s): I73.9 - PERIPHERAL VASCULAR DISEASE, UNSPECIFIED (15) S/P femoropopliteal bypass surgery Code(s): Z95.828 - PRESENCE OF OTHER VASCULAR IMPLANTS AND GRAFTS (16) Subendocardial ischemia Code(s): I24.8 - OTHER FORMS OF ACUTE ISCHEMIC HEART DISEASE Assessment/Plan 05/27/2019 Echo: Normal LV size and fxn LVEF 55-60%, grade I DD, normal RV fxn, normal atrial sizes, mild MR, TR, AR 04/01/2016 Pharm stress: Mild apical and inferoseptal ischemia, LVEF 70% 1. CAD s/p NSTEMI and Wellens T waves 2. Hypertensive urgency in a patient with known history of hypertensive cardiovascular disease 3. End-stage renal disease on hemodialysis, dialysis noncompliance 4. Acute on chronic diastolic heart failure 5. DM 6. Hypercholesterolemia 7. History of PAD post right fem-pop bypass post toe amputation for osteomyelitis 8. COPD 9. Anemia 10. Anxiety PLAN: 1. D/c IV heparin as trops have peaked, f/u echocardiogram and ECG 2. Continue Lipitor 80 qd, Coreg 12.5 bid, Cozaar 100 qd, Procardia XL 120 qd, ASA 81 qd, Plavix 75 qd. Started Hydralazine 10 tid, but would change to Imdur 30 qd 3. Hemodialysis as per renal service and emphasized importance of compliance 4. F/u Lexiscan Myoview to assess severity of CAD
--- NOTE | 2019-08-16 13:39 | EKG ---
Test Reason : Blood Pressure : / mmHG Vent. Rate : 073 BPM Atrial Rate : 073 BPM P-R Int : 094 ms QRS Dur : 092 ms QT Int : 450 ms P-R-T Axes : -14 048 213 degrees QTc Int : 495 ms POOR DATA QUALITY, INTERPRETATION MAY BE ADVERSELY AFFECTED SINUS RHYTHM WITH SHORT MD PROLONGED QT ABNORMAL ECG WHEN COMPARED WITH ECG OF 15-AUG-2019 09:43, INVERTED T WAVES HAVE REPLACED NONSPECIFIC T WAVE ABNORMALITY IN INFERIOR LEADS T WAVE INVERSION MORE EVIDENT IN LATERAL LEADS Confirmed by DELMY JACKSON MD ([id number]) on 08/16/2019 1:39:22 PM Referred By: RUDI LOPEZ Confirmed By:DELMY JACKSON MD
[2019-08-16] MEDS: CARVEDILOL 6.25 MG TABLET (FP) PO SCH ×4 (13:47→22:11)
[2019-08-16] MEDS: ASPIRIN 81 MG CHEWABLE TABLETS PO SCH (13:47)
[2019-08-16] MEDS: LOSARTAN POTASSIUM 50 MG TABLET (FP) PO SCH (13:47)
[2019-08-16] MEDS: NIFEdipine E.R 60 MG TABLET (UD) PO SCH (13:47)
[2019-08-16] MEDS: CLOPIDOGREL BISULFATE 75 MG TABLET (FP) PO SCH (13:47)
--- NOTE | 2019-08-16 14:04 | PN ---
Progress Note, Physician Chief Complaint: PULMONARY ALERT,COMFORTABLE,-RESP DISTRESS History of Present Illness: PULMONARY - Current Medication List Current Medications: Active Medications Acetaminophen (Tylenol -) 650 mg PO Q4H PRN PRN Reason: PAIN LEVEL 1-5 Alprazolam (Xanax -) 0.25 mg PO BID PRN PRN Reason: ANXIETY Last Admin: 08/16/19 08:36 Dose: 0.25 mg Amitriptyline HCl (Elavil -) 50 mg PO HS [facility] Last Admin: 08/15/19 21:46 Dose: 50 mg Aspirin (Asa -) 81 mg PO DAILY [facility] Last Admin: 08/16/19 13:47 Dose: Not Given Atorvastatin Calcium (Lipitor -) 80 mg PO HS [facility] Last Admin: 08/15/19 21:46 Dose: 80 mg Calcium Acetate (Phoslo -) 667 mg PO TIDCM [facility] Last Admin: 08/16/19 13:48 Dose: Not Given Carvedilol (Coreg -) 12.5 mg PO BID [facility] Last Admin: 08/16/19 13:47 Dose: Not Given Clopidogrel Bisulfate (Plavix -) 75 mg PO DAILY [facility] Last Admin: 08/16/19 13:47 Dose: Not Given Ferrous Sulfate (Feosol -) 325 mg PO BIDWM [facility] Last Admin: 08/16/19 08:33 Dose: 325 mg Heparin Sodium (Porcine) (Heparin -) 5,000 unit IVPUSH PRN PRN PRN Reason: Heparin Last Admin: 08/15/19 09:10 Dose: 5,000 unit Heparin Sodium (Porcine) (Heparin -) 1,000 unit IVPUSH PRN PRN PRN Reason: Heparin Hydralazine HCl (Apresoline -) 10 mg PO TID [facility] Last Admin: 08/16/19 13:47 Dose: Not Given Heparin Sodium/Dextrose (Heparin Infusion -) 25,000 units in 500 mls @ 16 mls/ hr IVPB TITR [facility]; Protocol Last Admin: 08/15/19 17:46 Dose: Not Given Sodium Chloride (Normal Saline -) 250 mls @ 3,000 mls/hr IV PRN PRN PRN Reason: Hypotension during Dialysis Stop: 08/16/19 14:13 Sodium Chloride (Normal Saline -) 250 mls @ 3,000 mls/hr IV PRN PRN PRN Reason: Hypotension during Dialysis Insulin Aspart (Novolog Vial Sliding Scale -) 1 vial SQ BIDAC [facility]; Protocol Last Admin: 08/16/19 06:31 Dose: Not Given Losartan Potassium (Cozaar -) 100 mg PO DAILY [facility] Last Admin: 08/16/19 13:47 Dose: Not Given Nifedipine (Procardia Xl -) 120 mg PO DAILY [facility] Last Admin: 08/16/19 13:47 Dose: Not Given Promethazine HCl (Phenergan Injection -) 12.5 mg IVPUSH Q6H PRN PRN Reason: NAUSEA Last Admin: 08/15/19 10:34 Dose: 12.5 mg Sevelamer Carbonate (Renvela -) 1,600 mg PO TIDCM [facility] Last Admin: 08/16/19 13:47 Dose: Not Given - Objective Vital Signs: Vital Signs Temperature 98.2 F 08/16/19 08:45 Pulse Rate 84 08/16/19 13:00 Respiratory Rate 18 08/16/19 13:00 Blood Pressure 122/45 L 08/16/19 13:00 O2 Sat by Pulse Oximetry (%) 95 08/15/19 21:00 Constitutional: Yes: Well Nourished, Calm Eyes: Yes: WNL HENT: Yes: WNL Neck: Yes: WNL Cardiovascular: Yes: Regular Rate and Rhythm, S1, S2 Respiratory: Yes: CTA Bilaterally Gastrointestinal: Yes: Normal Bowel Sounds, Soft Extremities: Yes: WNL Edema: No Labs: CBC, BMP 08/16/19 06:20 08/16/19 06:20 INR, PTT INR 0.92 (0.83-1.09) 08/14/19 03:26 Problem List - Problems (1) Cigarette nicotine dependence Code(s): F17.210 - NICOTINE DEPENDENCE, CIGARETTES, UNCOMPLICATED (2) Diastolic CHF Code(s): I50.30 - UNSPECIFIED DIASTOLIC (CONGESTIVE) HEART FAILURE Qualifiers: Heart failure chronicity: acute on chronic Qualified Code(s): I50.33 - Acute on chronic diastolic (congestive) heart failure (3) Missed dialysis Code(s): [id number] - (4) Acute respiratory failure Code(s): J96.00 - ACUTE RESPIRATORY FAILURE, UNSP W HYPOXIA OR HYPERCAPNIA Qualifiers: (5) Anemia Code(s): D64.9 - ANEMIA, UNSPECIFIED Qualifiers: Anemia type: due to chronic kidney disease Chronic kidney disease stage: on chronic dialysis Qualified Code(s): N18.6 - End stage renal disease; D63.1 - Anemia in chronic kidney disease; Z99.2 - Dependence on renal dialysis (6) CAD (coronary artery disease) Code(s): I25.10 - ATHSCL HEART DISEASE OF [place] CORONARY ARTERY W/O ANG PCTRS Qualifiers: Coronary Disease-Associated Artery/Lesion type: [place] artery [place] vs. transplanted heart: [place] heart Associated angina: without angina Qualified Code(s): I25.10 - Atherosclerotic heart disease of [place] coronary artery without angina pectoris (7) CKD stage 5 secondary to hypertension Code(s): I12.0 - HYP CHR KIDNEY DISEASE W STAGE 5 CHR KIDNEY DISEASE OR ESRD; N18.5 - CHRONIC KIDNEY DISEASE, STAGE 5 (8) COPD (chronic obstructive pulmonary disease) Code(s): J44.9 - CHRONIC OBSTRUCTIVE PULMONARY DISEASE, UNSPECIFIED Qualifiers: COPD type: unspecified COPD Qualified Code(s): J44.9 - Chronic obstructive pulmonary disease, unspecified (9) ESRD (end stage renal disease) Code(s): N18.6 - END STAGE RENAL DISEASE (10) Hypertension, uncontrolled Code(s): I10 - ESSENTIAL (PRIMARY) HYPERTENSION (11) PAD (peripheral artery disease) Code(s): I73.9 - PERIPHERAL VASCULAR DISEASE, UNSPECIFIED Assessment/Plan ASSESSMENT AND PLAN: Acute Hypoxic Respiratory Failure improved Hypertensive Urgency improved Acute on Chronic Diastolic Heart Failure +Troponins - r/o NSTEMI vs [place] Ischemia ESRD on HD COPD PAD HTN DM Hyperlipidemia Anxiety - HD per renal - O2 as needed - ASA, statin, beta pepito - anticoagulation per cardiology - BP control - inhaled bronchodilators as needed - DVT prophylaxis DR SEARS
[2019-08-16] MEDS: ISOSORBIDE MONONITRATE 30 MG TAB.SR.24H (FP) PO SCH (14:58)
[2019-08-16] MEDS ORDERED: SODIUM CHLORIDE 250 ML IV PRN ×2 (17:56→17:58)
--- NOTE | 2019-08-16 17:56 | PN ---
Progress Note (short form) - Note Progress Note: Renal follow up for ESRD on HD Seen and examined at the bedside awake and alert s/p dialysis this am with 2.5L UF noted to have some reddness at catheter exit site but no discharge pt without acute complaints no shortness of breath or chest pain Vital Signs Temperature 98.4 F 08/16/19 17:30 Pulse Rate 87 08/16/19 17:30 Respiratory Rate 18 08/16/19 17:30 Blood Pressure 143/86 08/16/19 17:30 O2 Sat by Pulse Oximetry (%) 95 08/15/19 21:00 Intake & Output 08/13/19 08/14/19 08/15/19 08/16/19 23:59 23:59 23:59 23:59 Intake Total 592 017 7534 Output Total 2800 3000 Balance -2300 614 -1830 Weight 52.163 kg NAD awake and alert neck supple RRR CTA, no rales or wheeze soft NT/ND no LE edema, clubbing or cyanosis CBC, BMP 08/16/19 06:20 08/16/19 06:20 Current Medications Acetaminophen (Tylenol -) 650 mg PO Q4H PRN PRN Reason: PAIN LEVEL 1-5 Alprazolam (Xanax -) 0.25 mg PO BID PRN PRN Reason: ANXIETY Last Admin: 08/16/19 08:36 Dose: 0.25 mg Amitriptyline HCl (Elavil -) 50 mg PO HS [facility] Last Admin: 08/15/19 21:46 Dose: 50 mg Aspirin (Asa -) 81 mg PO DAILY [facility] Last Admin: 08/16/19 13:47 Dose: Not Given Atorvastatin Calcium (Lipitor -) 80 mg PO HS [facility] Last Admin: 08/15/19 21:46 Dose: 80 mg Calcium Acetate (Phoslo -) 667 mg PO TIDCM [facility] Last Admin: 08/16/19 16:41 Dose: 667 mg Carvedilol (Coreg -) 12.5 mg PO BID [facility] Last Admin: 08/16/19 14:58 Dose: 12.5 mg Clopidogrel Bisulfate (Plavix -) 75 mg PO DAILY [facility] Last Admin: 08/16/19 13:47 Dose: Not Given Ferrous Sulfate (Feosol -) 325 mg PO BIDWM [facility] Last Admin: 08/16/19 16:41 Dose: 325 mg Sodium Chloride (Normal Saline -) 250 mls @ 3,000 mls/hr IV PRN PRN PRN Reason: Hypotension during Dialysis Stop: 08/16/19 14:13 Sodium Chloride (Normal Saline -) 250 mls @ 3,000 mls/hr IV PRN PRN PRN Reason: Hypotension during Dialysis Insulin Aspart (Novolog Vial Sliding Scale -) 1 vial SQ BIDAC [facility]; Protocol Last Admin: 08/16/19 16:41 Dose: Not Given Isosorbide Mononitrate (Imdur -) 30 mg PO DAILY [facility] Last Admin: 08/16/19 14:58 Dose: 30 mg Losartan Potassium (Cozaar -) 100 mg PO DAILY [facility] Last Admin: 08/16/19 13:47 Dose: Not Given Nifedipine (Procardia Xl -) 120 mg PO DAILY [facility] Last Admin: 08/16/19 13:47 Dose: Not Given Promethazine HCl (Phenergan Injection -) 12.5 mg IVPUSH Q6H PRN PRN Reason: NAUSEA Last Admin: 08/15/19 10:34 Dose: 12.5 mg Sevelamer Carbonate (Renvela -) 1,600 mg PO TIDCM [facility] Last Admin: 08/16/19 16:41 Dose: 1,600 mg 84 year old woman with history of ESRD on HD (Monday and Monday), Hypertension, PVD, Smoker who presented from home with shortness of breath and found to have acute pulmonary congestion and hypertensive emergency. 1. acute pulmonary edema 2. hypertensive emergency 3. elevated cardiac enzyme r/o ACS 4. ESRD on HD 5. LE pain 6. Anxiety tolerated dialysis well this am. Next planned dialysis is Monday (holiday schedule) awaiting ECHO and stress test. Troponins now downtrending. Off heparin gtt. On ASA and statin. BP now much improved, continue present medications. Hgb is below goal, will give JACOB with next dialysis. Thank you Quentin Goyal DO
[2019-08-16] MEDS: AMITRIPTYLINE HCL 25 MG TABLET (FP) PO SCH (21:57)
[2019-08-16] MEDS: ATORVASTATIN CA 80 MG TABLET (FP) PO SCH (21:58)
[2019-08-17 06:04] LABS: BASO % 0.9 % (0-2.0); EOS % 5.2 % (0-4.5); HEMATOCRIT 28.9 % (32.4-45.2); HEMOGLOBIN 9.6 GM/dL (10.7-15.3); LYMPH % 32.5 % (8-40); MCH 31.8 pg (25.7-33.7); MCHC 33.4 g/dl (32.0-36.0); MEAN CELL VOLUME 95.3 fl (80-96); MONO % 14.1 % (3.8-10.2); NEUT % 47.3 % (42.8-82.8); PLATELET COUNT 205 K/MM3 (134-434); RBC 3.03 M/mm3 (3.60-5.2); RDW 16.6 % (11.6-15.6); WHITE BLOOD COUNT 5.1 K/mm3 (4.0-10.0)
[2019-08-17] MEDS: INSULIN SLIDING SCALE (NOVOLOG) 1 VIAL SQ SCH ×2 (06:28→16:44)
[2019-08-17 06:38] LABS: ALBUMIN 2.8 g/dl (3.4-5.0); BILIRUBIN,TOTAL 0.2 mg/dL (0.2-1); BLOOD UREA NITROGEN 14.8 mg/dL (7-18); CALCIUM 8.7 mg/dL (8.5-10.1); CREATININE 4.3 mg/dL (0.55-1.3); POTASSIUM 3.9 mmol/L (3.5-5.1); TOT PROT 6.3 g/dl (6.4-8.2)
--- NOTE | 2019-08-17 08:17 | PN ---
Progress Note (short form) - Note Progress Note: Chief Complaint: Events noted, notes reviewed, denies any chest pain or dyspnea History of Present Illness: Seen and examined on telemetry. Events noted, notes reviewed, denies any chest pain or dyspnea - Current Medication List Current Medications Acetaminophen (Tylenol -) 650 mg PO Q4H PRN PRN Reason: PAIN LEVEL 1-5 Alprazolam (Xanax -) 0.25 mg PO BID PRN PRN Reason: ANXIETY Last Admin: 08/17/19 09:29 Dose: 0.25 mg Amitriptyline HCl (Elavil -) 50 mg PO HS [facility] Last Admin: 08/16/19 21:57 Dose: 50 mg Aspirin (Asa -) 81 mg PO DAILY [facility] Last Admin: 08/17/19 09:29 Dose: 81 mg Atorvastatin Calcium (Lipitor -) 80 mg PO [facility] Last Admin: 08/16/19 21:58 Dose: 80 mg Calcium Acetate (Phoslo -) 667 mg PO TIDCM [facility] Last Admin: 08/17/19 08:28 Dose: 667 mg Carvedilol (Coreg -) 12.5 mg PO BID [facility] Last Admin: 08/17/19 09:30 Dose: 12.5 mg Clopidogrel Bisulfate (Plavix -) 75 mg PO DAILY [facility] Last Admin: 08/17/19 09:29 Dose: 75 mg Epoetin [place]o (Procrit -) 10,000 unit IVPUSH ONCE ONE Stop: 08/18/19 07:01 Ferrous Sulfate (Feosol -) 325 mg PO BIDWM [facility] Last Admin: 08/17/19 08:28 Dose: 325 mg Sodium Chloride (Normal Saline -) 250 mls @ 3,000 mls/hr IV PRN PRN PRN Reason: Hypotension during Dialysis Stop: 08/16/19 14:13 Sodium Chloride (Normal Saline -) 250 mls @ 3,000 mls/hr IV PRN PRN PRN Reason: Hypotension during Dialysis Sodium Chloride (Normal Saline -) 250 mls @ 3,000 mls/hr IV PRN PRN PRN Reason: Hypotension during Dialysis Stop: 08/17/19 17:56 Sodium Chloride (Normal Saline -) 250 mls @ 3,000 mls/hr IV PRN PRN PRN Reason: Hypotension during Dialysis Stop: 08/17/19 17:58 Insulin Aspart (Novolog Vial Sliding Scale -) 1 vial SQ BIDAC [facility]; Protocol Last Admin: 08/17/19 06:28 Dose: Not Given Isosorbide Mononitrate (Imdur -) 30 mg PO DAILY [facility] Last Admin: 08/17/19 09:30 Dose: 30 mg Losartan Potassium (Cozaar -) 100 mg PO DAILY [facility] Last Admin: 08/17/19 09:30 Dose: 100 mg Nifedipine (Procardia Xl -) 120 mg PO DAILY [facility] Last Admin: 08/17/19 09:30 Dose: 120 mg Promethazine HCl (Phenergan Injection -) 12.5 mg IVPUSH Q6H PRN PRN Reason: NAUSEA Last Admin: 08/15/19 10:34 Dose: 12.5 mg Sevelamer Carbonate (Renvela -) 1,600 mg PO TIDCM [facility] Last Admin: 08/17/19 08:29 Dose: 1,600 mg Review of Systems - Review of Systems Constitutional: no symptoms reported Respiratory: denies Cough or Sputum Production Cardiovascular: as noted above Gastrointestinal: denies Nausea, Vomiting, Diarrhea, Constipation or Abdominal Pain Genitourinary: no symptoms reported Musculoskeletal: no symptoms reported Endocrine: no symptoms reported - Objective Vital Signs: Last Vital Signs Temp Pulse Resp BP Pulse Ox 98.3 F 68 16 119/58 L 95 08/17/19 06:00 08/17/19 06:00 08/17/19 06:00 08/17/19 06:00 08/15/19 21:00 Intake & Output 08/14/19 08/15/19 08/16/19 08/17/19 23:59 23:59 23:59 23:59 Intake Total 135 306 4219 Output Total 2800 3000 Balance -2300 614 -1494 Weight 115 lb Neck: Supple Negative JVD No Bruit Cardiovascular: S1 S2 Regular Rate and Rhythm Respiratory: Clear to A&P Bilaterally Gastrointestinal: Soft Benign Normal Bowel Sounds Extremities: No Edema Labs: CBC, BMP 08/17/19 05:10 08/17/19 05:10 Hepatic Panel Total Bilirubin 0.2 mg/dL (0.2-1) 08/17/19 05:10 AST 20 U/L (15-37) 08/17/19 05:10 ALT 15 U/L (13-61) 08/17/19 05:10 Alkaline Phosphatase 70 U/L (45-117) 08/17/19 05:10 Albumin 2.8 g/dl (3.4-5.0) L 08/17/19 05:10 INR, PTT INR 0.92 (0.83-1.09) 08/14/19 03:26 Assessment/Plan ASSESSMENT: 1. CAD with subendocardial [place]/demand ischemic injury/Wellens T waves changes angina pectoris 2. Diastolic LV dysfunction with clinical class 0-I NYHA classification LV failure 3. Hypertensive urgency in a patient with known history of hypertensive cardiovascular disease, clinically resolved 4. DM 5. Hypercholesterolemia 6. History of PAD post right fem-pop bypass 7. COPD 8. End-stage renal disease on hemodialysis, dialysis noncompliance 9. Anemia 10. Post toe amputation for osteomyelitis PLAN: 1. Continue Coreg 2. Continue Procardia XL 3. Continue Cozaar 4. Continue Imdur 5. Continue ASA and Plavix 7. Continue Lipitor 8. Plan to proceed with MPI study to assess severity of CAD prior to planning any further intervention 9. Hemodialysis as per renal service, and emphasized importance of compliance Mary Sewell MD
[2019-08-17] MEDS: CALCIUM ACETATE 667 MG CAPSULE (FP) PO SCH ×3 (08:28→16:44)
[2019-08-17] MEDS: FERROUS SO4 325 MG TABLET (FP) PO SCH ×2 (08:28→16:44)
[2019-08-17] MEDS: SEVELAMER CARBONATE 800 MG TAB (FP) PO SCH ×3 (08:29→16:44)
[2019-08-17] MEDS: ALPRAZolam 0.25 MG TABLET PO PRN ×2 (09:29→18:06)
[2019-08-17] MEDS: ASPIRIN 81 MG CHEWABLE TABLETS PO SCH (09:29)
[2019-08-17] MEDS: CLOPIDOGREL BISULFATE 75 MG TABLET (FP) PO SCH (09:29)
[2019-08-17] MEDS: LOSARTAN POTASSIUM 50 MG TABLET (FP) PO SCH (09:30)
[2019-08-17] MEDS: CARVEDILOL 6.25 MG TABLET (FP) PO SCH ×2 (09:30→21:25)
[2019-08-17] MEDS: ISOSORBIDE MONONITRATE 30 MG TAB.SR.24H (FP) PO SCH (09:30)
[2019-08-17] MEDS: NIFEdipine E.R 60 MG TABLET (UD) PO SCH (09:30)
--- NOTE | 2019-08-17 11:41 | PN ---
Progress Note, Physician - Current Medication List Current Medications: Active Medications Acetaminophen (Tylenol -) 650 mg PO Q4H PRN PRN Reason: PAIN LEVEL 1-5 Alprazolam (Xanax -) 0.25 mg PO BID PRN PRN Reason: ANXIETY Last Admin: 08/17/19 09:29 Dose: 0.25 mg Amitriptyline HCl (Elavil -) 50 mg PO HS [facility] Last Admin: 08/16/19 21:57 Dose: 50 mg Aspirin (Asa -) 81 mg PO DAILY [facility] Last Admin: 08/17/19 09:29 Dose: 81 mg Atorvastatin Calcium (Lipitor -) 80 mg PO HS [facility] Last Admin: 08/16/19 21:58 Dose: 80 mg Calcium Acetate (Phoslo -) 667 mg PO TIDCM [facility] Last Admin: 08/17/19 08:28 Dose: 667 mg Carvedilol (Coreg -) 12.5 mg PO BID [facility] Last Admin: 08/17/19 09:30 Dose: 12.5 mg Clopidogrel Bisulfate (Plavix -) 75 mg PO DAILY [facility] Last Admin: 08/17/19 09:29 Dose: 75 mg Epoetin Paco (Procrit -) 10,000 unit IVPUSH ONCE ONE Stop: 08/18/19 07:01 Ferrous Sulfate (Feosol -) 325 mg PO BIDWM [facility] Last Admin: 08/17/19 08:28 Dose: 325 mg Sodium Chloride (Normal Saline -) 250 mls @ 3,000 mls/hr IV PRN PRN PRN Reason: Hypotension during Dialysis Stop: 08/16/19 14:13 Sodium Chloride (Normal Saline -) 250 mls @ 3,000 mls/hr IV PRN PRN PRN Reason: Hypotension during Dialysis Sodium Chloride (Normal Saline -) 250 mls @ 3,000 mls/hr IV PRN PRN PRN Reason: Hypotension during Dialysis Stop: 08/17/19 17:56 Sodium Chloride (Normal Saline -) 250 mls @ 3,000 mls/hr IV PRN PRN PRN Reason: Hypotension during Dialysis Stop: 08/17/19 17:58 Insulin Aspart (Novolog Vial Sliding Scale -) [facility] Protocol Last Admin: 08/17/19 06:28 Dose: Not Given Isosorbide Mononitrate (Imdur -) 30 mg PO DAILY [facility] Last Admin: 08/17/19 09:30 Dose: 30 mg Losartan Potassium (Cozaar -) 100 mg PO DAILY [facility] Last Admin: 08/17/19 09:30 Dose: 100 mg Nifedipine (Procardia Xl -) 120 mg PO DAILY [facility] Last Admin: 08/17/19 09:30 Dose: 120 mg Promethazine HCl (Phenergan Injection -) 12.5 mg IVPUSH Q6H PRN PRN Reason: NAUSEA Last Admin: 08/15/19 10:34 Dose: 12.5 mg Sevelamer Carbonate (Renvela -) 1,600 mg PO TIDCM [facility] Last Admin: 08/17/19 08:29 Dose: 1,600 mg - Objective Vital Signs: Vital Signs Temperature 98 F 08/17/19 09:39 Pulse Rate 75 08/17/19 09:39 Respiratory Rate 16 08/17/19 09:39 Blood Pressure 160/58 L 08/17/19 09:39 O2 Sat by Pulse Oximetry (%) 95 08/15/19 21:00 Labs: CBC, BMP 08/17/19 05:10 08/17/19 05:10 INR, PTT INR 0.92 (0.83-1.09) 08/14/19 03:26 Problem List - Problems (1) Cigarette nicotine dependence Code(s): F17.210 - NICOTINE DEPENDENCE, CIGARETTES, UNCOMPLICATED (2) Diastolic CHF Code(s): I50.30 - UNSPECIFIED DIASTOLIC (CONGESTIVE) HEART FAILURE Qualifiers: Heart failure chronicity: acute on chronic Qualified Code(s): I50.33 - Acute on chronic diastolic (congestive) heart failure (3) Missed dialysis Code(s): FMD3553 - (4) Acute respiratory failure Code(s): J96.00 - ACUTE RESPIRATORY FAILURE, UNSP W HYPOXIA OR HYPERCAPNIA Qualifiers: (5) Anemia Code(s): D64.9 - ANEMIA, UNSPECIFIED Qualifiers: Anemia type: due to chronic kidney disease Chronic kidney disease stage: on chronic dialysis Qualified Code(s): N18.6 - End stage renal disease; D63.1 - Anemia in chronic kidney disease; Z99.2 - Dependence on renal dialysis (6) CAD (coronary artery disease) Code(s): I25.10 - ATHSCL HEART DISEASE OF [place] CORONARY ARTERY W/O ANG PCTRS Qualifiers: Coronary Disease-Associated Artery/Lesion type: [place] artery [place] vs. transplanted heart: [place] heart Associated angina: without angina Qualified Code(s): I25.10 - Atherosclerotic heart disease of [place] coronary artery without angina pectoris (7) CKD stage 5 secondary to hypertension Code(s): I12.0 - HYP CHR KIDNEY DISEASE W STAGE 5 CHR KIDNEY DISEASE OR ESRD; N18.5 - CHRONIC KIDNEY DISEASE, STAGE 5 (8) COPD (chronic obstructive pulmonary disease) Code(s): J44.9 - CHRONIC OBSTRUCTIVE PULMONARY DISEASE, UNSPECIFIED Qualifiers: COPD type: unspecified COPD Qualified Code(s): J44.9 - Chronic obstructive pulmonary disease, unspecified (9) ESRD (end stage renal disease) Code(s): N18.6 - END STAGE RENAL DISEASE (10) Hypertension, uncontrolled Code(s): I10 - ESSENTIAL (PRIMARY) HYPERTENSION (11) PAD (peripheral artery disease) Code(s): I73.9 - PERIPHERAL VASCULAR DISEASE, UNSPECIFIED Assessment/Plan ASSESSMENT AND PLAN: Acute Hypoxic Respiratory Failure improved Hypertensive Urgency improved Acute on Chronic Diastolic Heart Failure +Troponins - r/o NSTEMI vs Demand Ischemia ESRD on HD COPD PAD HTN DM Hyperlipidemia Anxiety - HD per renal - O2 as needed - ASA, statin, beta pepito - anticoagulation per cardiology - BP control - inhaled bronchodilators as needed - DVT prophylaxis DR SEARS
--- NOTE | 2019-08-17 12:46 | PN ---
Progress Note, Physician Chief Complaint: in bed NAD no new c/o awaiting echo and stress test as ordered by cardiology - Current Medication List Current Medications: Active Medications Acetaminophen (Tylenol -) 650 mg PO Q4H PRN PRN Reason: PAIN LEVEL 1-5 Alprazolam (Xanax -) 0.25 mg PO BID PRN PRN Reason: ANXIETY Last Admin: 08/17/19 09:29 Dose: 0.25 mg Amitriptyline HCl (Elavil -) 50 mg PO HS [facility] Last Admin: 08/16/19 21:57 Dose: 50 mg Aspirin (Asa -) 81 mg PO DAILY [facility] Last Admin: 08/17/19 09:29 Dose: 81 mg Atorvastatin Calcium (Lipitor -) 80 mg PO HS [facility] Last Admin: 08/16/19 21:58 Dose: 80 mg Calcium Acetate (Phoslo -) 667 mg PO TIDCM [facility] Last Admin: 08/17/19 08:28 Dose: 667 mg Carvedilol (Coreg -) 12.5 mg PO BID [facility] Last Admin: 08/17/19 09:30 Dose: 12.5 mg Clopidogrel Bisulfate (Plavix -) 75 mg PO DAILY [facility] Last Admin: 08/17/19 09:29 Dose: 75 mg Epoetin Paco (Procrit -) 10,000 unit IVPUSH ONCE ONE Stop: 08/18/19 07:01 Ferrous Sulfate (Feosol -) 325 mg PO BIDWM [facility] Last Admin: 08/17/19 08:28 Dose: 325 mg Sodium Chloride (Normal Saline -) 250 mls @ 3,000 mls/hr IV PRN PRN PRN Reason: Hypotension during Dialysis Stop: 08/16/19 14:13 Sodium Chloride (Normal Saline -) 250 mls @ 3,000 mls/hr IV PRN PRN PRN Reason: Hypotension during Dialysis Sodium Chloride (Normal Saline -) 250 mls @ 3,000 mls/hr IV PRN PRN PRN Reason: Hypotension during Dialysis Stop: 08/17/19 17:56 Sodium Chloride (Normal Saline -) 250 mls @ 3,000 mls/hr IV PRN PRN PRN Reason: Hypotension during Dialysis Stop: 08/17/19 17:58 Insulin Aspart (Novolog Vial Sliding Scale -) [facility]; Protocol Last Admin: 08/17/19 06:28 Dose: Not Given Isosorbide Mononitrate (Imdur -) 30 mg PO DAILY [facility] Last Admin: 08/17/19 09:30 Dose: 30 mg Losartan Potassium (Cozaar -) 100 mg PO DAILY [facility] Last Admin: 08/17/19 09:30 Dose: 100 mg Nifedipine (Procardia Xl -) 120 mg PO DAILY [facility] Last Admin: 08/17/19 09:30 Dose: 120 mg Promethazine HCl (Phenergan Injection -) 12.5 mg IVPUSH Q6H PRN PRN Reason: NAUSEA Last Admin: 08/15/19 10:34 Dose: 12.5 mg Sevelamer Carbonate (Renvela -) 1,600 mg PO TIDCM [facility] Last Admin: 08/17/19 08:29 Dose: 1,600 mg - Objective Vital Signs: Vital Signs Temperature 98 F 08/17/19 09:39 Pulse Rate 75 08/17/19 09:39 Respiratory Rate 16 08/17/19 09:39 Blood Pressure 160/58 L 08/17/19 09:39 O2 Sat by Pulse Oximetry (%) 95 08/15/19 21:00 Constitutional: Yes: No Distress, Calm Eyes: Yes: Conjunctiva Clear HENT: Yes: Atraumatic Neck: Yes: Supple Cardiovascular: Yes: Regular Rate and Rhythm Respiratory: Yes: CTA Bilaterally Gastrointestinal: Yes: Soft. No: Tenderness Genitourinary: No: Hematuria Musculoskeletal: No: Joint Stiffness, Joint Swelling Extremities: No: Cold, Cool, Cyanosis Edema: No Integumentary: No: Rash, Venous Stasis Changes Neurological: Yes: Alert ...Motor Strength: WNL Psychiatric: Yes: Alert. No: Agitated, Suicidal Ideation Labs: CBC, BMP 08/17/19 05:10 08/17/19 05:10 INR, PTT INR 0.92 (0.83-1.09) 08/14/19 03:26 - ....Imaging Other: Report Reviewed Assessment/Plan 84 YOF ASHD HTN CHF COPD ESRD / HD PVD DM admitted to ICU with uncontrolled HTN, SOB, nonSTEMI / +CE BP control; cardiology f/u; echo and stress test per cardio HD per renal falls PFX d/w pt and staff
[2019-08-17] MEDS: ATORVASTATIN CA 80 MG TABLET (FP) PO SCH (21:25)
[2019-08-17] MEDS: AMITRIPTYLINE HCL 25 MG TABLET (FP) PO SCH (21:26)
[2019-08-17] MEDS: CHOLESTYRAMINE/ASPARTAME 4 GM PACKET PO SCH (22:13)
[2019-08-18 06:24] LABS: HEMATOCRIT 27.3 % (32.4-45.2); HEMOGLOBIN 9.1 GM/dL (10.7-15.3); MCH 31.9 pg (25.7-33.7); MCHC 33.4 g/dl (32.0-36.0); MEAN CELL VOLUME 95.5 fl (80-96); PLATELET COUNT 207 K/MM3 (134-434); RBC 2.85 M/mm3 (3.60-5.2); WHITE BLOOD COUNT 6.4 K/mm3 (4.0-10.0)
[2019-08-18] MEDS: INSULIN SLIDING SCALE (NOVOLOG) 1 VIAL SQ SCH ×2 (06:25→17:33)
[2019-08-18 07:17] LABS: ALBUMIN 2.7 g/dl (3.4-5.0); BILIRUBIN,TOTAL 0.4 mg/dL (0.2-1); BLOOD UREA NITROGEN 32.9 mg/dL (7-18); CALCIUM 7.9 mg/dL (8.5-10.1); CREATININE 6.5 mg/dL (0.55-1.3); TOT PROT 6.1 g/dl (6.4-8.2)
--- NOTE | 2019-08-18 07:54 | PN ---
Progress Note (short form) - Note Progress Note: Chief Complaint: Events noted, notes reviewed, resting in bed, HD in progress, denies any chest pain or dyspnea, complaining of being cold History of Present Illness: Seen and examined on telemetry. Events noted, notes reviewed, resting in bed, HD in progress, denies any chest pain or dyspnea, complaining of being cold - Current Medication List Current Medications Acetaminophen (Tylenol -) 650 mg PO Q4H PRN PRN Reason: PAIN LEVEL 1-5 Alprazolam (Xanax -) 0.25 mg PO BID PRN PRN Reason: ANXIETY Last Admin: 08/17/19 18:06 Dose: 0.25 mg Amitriptyline HCl (Elavil -) 50 mg PO HS [facility] Last Admin: 08/17/19 21:26 Dose: 50 mg Aspirin (Asa -) 81 mg PO DAILY [facility] Last Admin: 08/17/19 09:29 Dose: 81 mg Atorvastatin Calcium (Lipitor -) 80 mg PO HS [facility] Last Admin: 08/17/19 21:25 Dose: 80 mg Calcium Acetate (Phoslo -) 667 mg PO TIDCM [facility] Last Admin: 08/17/19 16:44 Dose: 667 mg Carvedilol (Coreg -) 12.5 mg PO BID [facility] Last Admin: 08/17/19 21:25 Dose: 12.5 mg Cholestyramine Resin (Questran Light Packet -) 4 gm PO BID [facility] Last Admin: 08/17/19 22:13 Dose: 4 gm Clopidogrel Bisulfate (Plavix -) 75 mg PO DAILY [facility] Last Admin: 08/17/19 09:29 Dose: 75 mg Epoetin Paco (Procrit -) 10,000 unit IVPUSH ONCE ONE Stop: 08/18/19 09:01 Ferrous Sulfate (Feosol -) 325 mg PO BIDWM [facility] Last Admin: 08/17/19 16:44 Dose: 325 mg Sodium Chloride (Normal Saline -) 250 mls @ 3,000 mls/hr IV PRN PRN PRN Reason: Hypotension during Dialysis Stop: 08/16/19 14:13 Sodium Chloride (Normal Saline -) 250 mls @ 3,000 mls/hr IV PRN PRN PRN Reason: Hypotension during Dialysis Sodium Chloride (Normal Saline -) 250 mls @ 3,000 mls/hr IV PRN PRN PRN Reason: Hypotension during Dialysis Stop: 08/17/19 17:56 Sodium Chloride (Normal Saline -) 250 mls @ 3,000 mls/hr IV PRN PRN PRN Reason: Hypotension during Dialysis Stop: 08/17/19 17:58 Insulin Aspart (Novolog Vial Sliding Scale -) 1 vial SQ BIDAC [facility]; Protocol Last Admin: 08/18/19 06:25 Dose: Not Given Isosorbide Mononitrate (Imdur -) 30 mg PO DAILY [facility] Last Admin: 08/17/19 09:30 Dose: 30 mg Losartan Potassium (Cozaar -) 100 mg PO DAILY [facility] Last Admin: 08/17/19 09:30 Dose: 100 mg Nifedipine (Procardia Xl -) 120 mg PO DAILY [facility] Last Admin: 08/17/19 09:30 Dose: 120 mg Promethazine HCl (Phenergan Injection -) 12.5 mg IVPUSH Q6H PRN PRN Reason: NAUSEA Last Admin: 08/15/19 10:34 Dose: 12.5 mg Sevelamer Carbonate (Renvela -) 1,600 mg PO TIDCM [facility] Last Admin: 08/17/19 16:44 Dose: 1,600 mg Review of Systems - Review of Systems Constitutional: no symptoms reported Respiratory: denies Cough or Sputum Production Cardiovascular: as noted above Gastrointestinal: denies Nausea, Vomiting, Diarrhea, Constipation or Abdominal Pain Genitourinary: no symptoms reported Musculoskeletal: no symptoms reported Endocrine: no symptoms reported - Objective Vital Signs: Last Vital Signs Temp Pulse Resp BP Pulse Ox 97.4 F L 80 18 148/62 92 L 08/18/19 07:20 08/18/19 07:20 08/18/19 07:20 08/18/19 07:20 08/17/19 21:00 Intake & Output 08/15/19 08/16/19 08/17/19 08/18/19 23:59 23:59 23:59 23:59 Intake Total 614 1506 480 Output Total 3000 Balance 614 -1494 480 Neck: Supple Negative JVD No Bruit Cardiovascular: S1 S2 Regular Rate and Rhythm Respiratory: Clear to A&P Bilaterally Gastrointestinal: Soft Benign Normal Bowel Sounds Extremities: No Edema Labs: CBC, BMP 08/18/19 05:05 08/18/19 05:05 INR, PTT INR 0.92 (0.83-1.09) 08/14/19 03:26 Assessment/Plan ASSESSMENT: 1. CAD with subendocardial [place]/demand ischemic injury/[place] T waves changes angina pectoris 2. Diastolic LV dysfunction with clinical class 0-I NYHA classification LV failure 3. Hypertensive urgency in a patient with known history of hypertensive cardiovascular disease, clinically resolved 4. DM 5. Hypercholesterolemia 6. History of PAD post right fem-pop bypass 7. COPD 8. End-stage renal disease on hemodialysis, dialysis noncompliance 9. Anemia 10. Post toe amputation for osteomyelitis PLAN: 1. Continue Coreg and titrate dosage 2. Continue Procardia XL 3. Continue Cozaar 4. Continue Imdur 5. Continue ASA and Plavix 7. Continue Lipitor 8. Plan to proceed with MPI study to assess severity of CAD prior to planning any further intervention 9. Hemodialysis as per renal service, and emphasized importance of compliance Mary Sewell MD
[2019-08-18] MEDS ORDERED: EPOETIN ALFA 10,000 UNIT/1 ML VIAL IVPUSH ONE (09:00)
--- NOTE | 2019-08-18 09:31 | PN ---
Progress Note, Physician Chief Complaint: in bed NAD no c/o awaiting further cardiac testing per cardiology - Current Medication List Current Medications: Active Medications Acetaminophen (Tylenol -) 650 mg PO Q4H PRN PRN Reason: PAIN LEVEL 1-5 Alprazolam (Xanax -) 0.25 mg PO BID PRN PRN Reason: ANXIETY Last Admin: 08/17/19 18:06 Dose: 0.25 mg Amitriptyline HCl (Elavil -) 50 mg PO HS [facility] Last Admin: 08/17/19 21:26 Dose: 50 mg Aspirin (Asa -) 81 mg PO DAILY [facility] Last Admin: 08/17/19 09:29 Dose: 81 mg Atorvastatin Calcium (Lipitor -) 80 mg PO HS [facility] Last Admin: 08/17/19 21:25 Dose: 80 mg Calcium Acetate (Phoslo -) 667 mg PO TIDCM [facility] Last Admin: 08/17/19 16:44 Dose: 667 mg Carvedilol (Coreg -) 12.5 mg PO BID [facility] Last Admin: 08/17/19 21:25 Dose: 12.5 mg Cholestyramine Resin (Questran Light Packet -) 4 gm PO BID [facility] Last Admin: 08/17/19 22:13 Dose: 4 gm Clopidogrel Bisulfate (Plavix -) 75 mg PO DAILY [facility] Last Admin: 08/17/19 09:29 Dose: 75 mg Ferrous Sulfate (Feosol -) 325 mg PO BIDWM [facility] Last Admin: 08/17/19 16:44 Dose: 325 mg Sodium Chloride (Normal Saline -) 250 mls @ 3,000 mls/hr IV PRN PRN PRN Reason: Hypotension during Dialysis Stop: 08/17/19 17:58 Insulin Aspart (Novolog Vial Sliding Scale -) [facility]; Protocol Last Admin: 08/18/19 06:25 Dose: Not Given Isosorbide Mononitrate (Imdur -) 30 mg PO DAILY [facility] Last Admin: 08/17/19 09:30 Dose: 30 mg Losartan Potassium (Cozaar -) 100 mg PO DAILY [facility] Last Admin: 08/17/19 09:30 Dose: 100 mg Nifedipine (Procardia Xl -) 120 mg PO DAILY [facility] Last Admin: 08/17/19 09:30 Dose: 120 mg Promethazine HCl (Phenergan Injection -) 12.5 mg IVPUSH Q6H PRN PRN Reason: NAUSEA Last Admin: 08/15/19 10:34 Dose: 12.5 mg Sevelamer Carbonate (Renvela -) 1,600 mg PO TIDCM [facility] Last Admin: 08/17/19 16:44 Dose: 1,600 mg - Objective Vital Signs: Vital Signs Temperature 97.4 F L 08/18/19 07:20 Pulse Rate 75 08/18/19 07:30 Respiratory Rate 18 08/18/19 07:30 Blood Pressure 156/97 08/18/19 07:30 O2 Sat by Pulse Oximetry (%) 92 L 08/17/19 21:00 Constitutional: Yes: No Distress, Calm Eyes: Yes: Conjunctiva Clear HENT: Yes: Atraumatic Neck: Yes: Supple Cardiovascular: Yes: Regular Rate and Rhythm Respiratory: Yes: CTA Bilaterally Gastrointestinal: Yes: Soft. No: Tenderness Genitourinary: No: Hematuria Musculoskeletal: No: Joint Stiffness, Joint Swelling Extremities: No: Cold, Cool, Cyanosis Edema: No Integumentary: No: Rash, Venous Stasis Changes Neurological: Yes: Alert ...Motor Strength: WNL Psychiatric: Yes: Alert. No: Agitated Labs: CBC, BMP 08/18/19 05:05 08/18/19 05:05 INR, PTT INR 0.92 (0.83-1.09) 08/14/19 03:26 Assessment/Plan 84 YOF ASHD HTN CHF COPD ESRD / HD PVD DM uncontrolled HTN, SOB, nonSTEMI / +CE - improved and stable; BP control; cardiology f/u; echo and stress test per cardio HD per renal falls PFX d/w pt and staff
[2019-08-18] MEDS: SEVELAMER CARBONATE 800 MG TAB (FP) PO SCH ×3 (09:56→17:31)
[2019-08-18] MEDS: CALCIUM ACETATE 667 MG CAPSULE (FP) PO SCH ×3 (09:56→17:32)
[2019-08-18] MEDS: FERROUS SO4 325 MG TABLET (FP) PO SCH ×2 (09:56→17:31)
--- NOTE | 2019-08-18 11:41 | PN ---
Progress Note, Physician History of Present Illness: PULMONARY ALERT,COMFORTABLE,-SOB. - Current Medication List Current Medications: Active Medications Acetaminophen (Tylenol -) 650 mg PO Q4H PRN PRN Reason: PAIN LEVEL 1-5 Alprazolam (Xanax -) 0.25 mg PO BID PRN PRN Reason: ANXIETY Last Admin: 08/17/19 18:06 Dose: 0.25 mg Amitriptyline HCl (Elavil -) 50 mg PO HS [facility] Last Admin: 08/17/19 21:26 Dose: 50 mg Aspirin (Asa -) 81 mg PO DAILY [facility] Last Admin: 08/17/19 09:29 Dose: 81 mg Atorvastatin Calcium (Lipitor -) 80 mg PO HS [facility] Last Admin: 08/17/19 21:25 Dose: 80 mg Calcium Acetate (Phoslo -) 667 mg PO TIDCM [facility] Last Admin: 08/18/19 09:56 Dose: Not Given Carvedilol (Coreg -) 25 mg PO BID [facility] Cholestyramine Resin (Questran Light Packet -) 4 gm PO BID [facility] Last Admin: 08/17/19 22:13 Dose: 4 gm Clopidogrel Bisulfate (Plavix -) 75 mg PO DAILY [facility] Last Admin: 08/17/19 09:29 Dose: 75 mg Ferrous Sulfate (Feosol -) 325 mg PO BIDWM [facility] Last Admin: 08/18/19 09:56 Dose: Not Given Sodium Chloride (Normal Saline -) 250 mls @ 3,000 mls/hr IV PRN PRN PRN Reason: Hypotension during Dialysis Stop: 08/17/19 17:58 Insulin Aspart (Novolog Vial Sliding Scale -) [facility]; Protocol Last Admin: 08/18/19 06:25 Dose: Not Given Isosorbide Mononitrate (Imdur -) 30 mg PO DAILY [facility] Last Admin: 08/17/19 09:30 Dose: 30 mg Losartan Potassium (Cozaar -) 100 mg PO DAILY [facility] Last Admin: 08/17/19 09:30 Dose: 100 mg Nifedipine (Procardia Xl -) 120 mg PO DAILY [facility] Last Admin: 08/17/19 09:30 Dose: 120 mg Promethazine HCl (Phenergan Injection -) 12.5 mg IVPUSH Q6H PRN PRN Reason: NAUSEA Last Admin: 08/15/19 10:34 Dose: 12.5 mg Sevelamer Carbonate (Renvela -) 1,600 mg PO TIDCM [facility] Last Admin: 08/18/19 09:56 Dose: Not Given - Objective Vital Signs: Vital Signs Temperature 97.4 F L 08/18/19 07:20 Pulse Rate 82 08/18/19 11:13 Respiratory Rate 18 08/18/19 11:13 Blood Pressure 128/56 L 08/18/19 11:13 O2 Sat by Pulse Oximetry (%) 92 L 08/17/19 21:00 Constitutional: Yes: Calm, Thin Eyes: Yes: WNL HENT: Yes: WNL Neck: Yes: WNL Cardiovascular: Yes: Regular Rate and Rhythm, S1, S2 Respiratory: Yes: Rales (FEW BIBASILAR RALES) Gastrointestinal: Yes: Normal Bowel Sounds, Soft Extremities: Yes: WNL Edema: No Labs: CBC, BMP 08/18/19 05:05 08/18/19 05:05 INR, PTT INR 0.92 (0.83-1.09) 08/14/19 03:26 Problem List - Problems (1) Cigarette nicotine dependence Code(s): F17.210 - NICOTINE DEPENDENCE, CIGARETTES, UNCOMPLICATED (2) Diastolic CHF Code(s): I50.30 - UNSPECIFIED DIASTOLIC (CONGESTIVE) HEART FAILURE Qualifiers: Heart failure chronicity: acute on chronic Qualified Code(s): I50.33 - Acute on chronic diastolic (congestive) heart failure (3) Missed dialysis Code(s): [id number] - (4) Acute respiratory failure Code(s): J96.00 - ACUTE RESPIRATORY FAILURE, UNSP W HYPOXIA OR HYPERCAPNIA Qualifiers: (5) Anemia Code(s): D64.9 - ANEMIA, UNSPECIFIED Qualifiers: Anemia type: due to chronic kidney disease Chronic kidney disease stage: on chronic dialysis Qualified Code(s): N18.6 - End stage renal disease; D63.1 - Anemia in chronic kidney disease; Z99.2 - Dependence on renal dialysis (6) CAD (coronary artery disease) Code(s): I25.10 - ATHSCL HEART DISEASE OF [place] CORONARY ARTERY W/O ANG PCTRS Qualifiers: Coronary Disease-Associated Artery/Lesion type: [place] artery [place] vs. transplanted heart: [place] heart Associated angina: without angina Qualified Code(s): I25.10 - Atherosclerotic heart disease of [place] coronary artery without angina pectoris (7) CKD stage 5 secondary to hypertension Code(s): I12.0 - HYP CHR KIDNEY DISEASE W STAGE 5 CHR KIDNEY DISEASE OR ESRD; N18.5 - CHRONIC KIDNEY DISEASE, STAGE 5 (8) COPD (chronic obstructive pulmonary disease) Code(s): J44.9 - CHRONIC OBSTRUCTIVE PULMONARY DISEASE, UNSPECIFIED Qualifiers: COPD type: unspecified COPD Qualified Code(s): J44.9 - Chronic obstructive pulmonary disease, unspecified (9) ESRD (end stage renal disease) Code(s): N18.6 - END STAGE RENAL DISEASE (10) Hypertension, uncontrolled Code(s): I10 - ESSENTIAL (PRIMARY) HYPERTENSION (11) PAD (peripheral artery disease) Code(s): I73.9 - PERIPHERAL VASCULAR DISEASE, UNSPECIFIED Assessment/Plan ASSESSMENT AND PLAN: Acute Hypoxic Respiratory Failure improved Hypertensive Urgency improved Acute on Chronic Diastolic Heart Failure improved +Troponins - r/o NSTEMI vs Demand Ischemia ESRD on HD COPD PAD HTN DM Hyperlipidemia Anxiety - HD per renal - O2 as needed - ASA, statin, beta pepito - anticoagulation per cardiology - BP control - inhaled bronchodilators as needed - DVT prophylaxis DR SEARS
[2019-08-18] MEDS: CARVEDILOL 25 MG TABLET (FP) PO SCH ×2 (11:44→22:30)
[2019-08-18] MEDS: ASPIRIN 81 MG CHEWABLE TABLETS PO SCH (11:44)
[2019-08-18] MEDS: ALPRAZolam 0.25 MG TABLET PO PRN ×2 (11:44→22:16)
[2019-08-18] MEDS: ISOSORBIDE MONONITRATE 30 MG TAB.SR.24H (FP) PO SCH (11:44)
[2019-08-18] MEDS: CLOPIDOGREL BISULFATE 75 MG TABLET (FP) PO SCH (11:44)
[2019-08-18] MEDS: NIFEdipine E.R 60 MG TABLET (UD) PO SCH (11:45)
[2019-08-18] MEDS: LOSARTAN POTASSIUM 50 MG TABLET (FP) PO SCH (11:45)
[2019-08-18] MEDS: CHOLESTYRAMINE/ASPARTAME 4 GM PACKET PO SCH ×2 (11:46→22:31)
--- NOTE | 2019-08-18 16:07 | PN ---
Progress Note (short form) - Note Progress Note: RENAL Pt had HD today she feels well states she does not know if her dyspnea was physioloic or psychologic Last Vital Signs Temp Pulse Resp BP Pulse Ox 98.6 F 87 18 146/95 96 08/18/19 12:00 08/18/19 12:00 08/18/19 12:00 08/18/19 12:00 08/18/19 09:00 lungs copd cvs s1s2 rr abd soft ext no edema CBC, BMP 08/18/19 05:05 08/18/19 05:05 Current Medications Generic Name Dose Route Start Last Admin Trade Name Freq PRN Reason Stop Dose Admin Acetaminophen 650 mg 08/14/19 13:31 Tylenol - PO Q4H PRN PAIN LEVEL 1-5 Alprazolam 0.25 mg 08/15/19 18:39 08/18/19 11:44 Xanax - PO 0.25 mg BID PRN Administration ANXIETY Amitriptyline HCl 50 mg 08/15/19 22:00 08/17/19 21:26 Elavil - PO 50 mg HS [facility] Administration Aspirin 81 mg 08/16/19 10:00 08/18/19 11:44 Asa - PO 81 mg DAILY [facility] Administration Atorvastatin Calcium 80 mg 08/14/19 22:00 08/17/19 21:25 Lipitor - PO 80 mg HS [facility]Z Administration Calcium Acetate 667 mg 08/16/19 08:00 08/18/19 11:48 Phoslo - PO 667 mg TIDCM [facility] Administration Carvedilol 25 mg 08/18/19 09:47 08/18/19 11:44 Coreg - PO 25 mg BID [facility]Z Administration Cholestyramine Resin 4 gm 08/17/19 22:15 08/18/19 11:46 Questran Light Packet - PO 4 gm BID [facility]Z Administration Clopidogrel Bisulfate 75 mg 08/15/19 11:00 08/18/19 11:44 Plavix - PO 75 mg DAILY [facility] Administration Ferrous Sulfate 325 mg 08/16/19 08:00 08/18/19 09:56 Feosol - PO Not Given BIDWM [facility] Sodium Chloride 250 mls @ 3,000 mls/hr 08/16/19 17:58 Normal Saline - IV 08/17/19 17:58 PRN PRN Hypotension during Dialysis Insulin Aspart 1 vial 08/16/19 07:00 08/18/19 06:25 Novolog Vial Sliding Scale - SQ Not Given BIDAC [facility] Protocol Isosorbide Mononitrate 30 mg 08/16/19 14:15 08/18/19 11:44 Imdur - PO 30 mg DAILY [facility] Administration Losartan Potassium 100 mg 08/16/19 10:00 08/18/19 11:45 Cozaar - PO 100 mg DAILY [facility] Administration Nifedipine 120 mg 08/16/19 10:00 08/18/19 11:45 Procardia Xl - PO 120 mg DAILY [facility]ATRZI Administration Promethazine HCl 12.5 mg 08/15/19 10:24 08/15/19 10:34 Phenergan Injection - IVPUSH 12.5 mg Q6H PRN Administration NAUSEA Sevelamer Carbonate 1,600 mg 08/16/19 08:00 08/18/19 11:49 Renvela - PO 1,600 mg TIDCM [facility]Z Administration 84 year old woman with history of ESRD on HD (Monday and Monday), Hypertension, PVD, Smoker who presented from home with shortness of breath and found to have acute pulmonary congestion and hypertensive emergency. 1. acute pulmonary edema 2. hypertensive emergency 3. elevated cardiac enzyme r/o ACS 4. ESRD on HD 5. LE pain 6. Anxiety tolerated dialysis well this am. cardiology following given high troponins current BP is acceptable so can get JACOB MV
[2019-08-18] MEDS: ATORVASTATIN CA 80 MG TABLET (FP) PO SCH (22:15)
[2019-08-18] MEDS: AMITRIPTYLINE HCL 25 MG TABLET (FP) PO SCH (22:15)
--- NOTE | 2019-08-19 06:21 | PN ---
Progress Note, Physician Chief Complaint: in bed NAD no new c/o pt asked for cholestyramine for diarrhea (I was called by nurse last night 11 pm ) but today she said she is constipated and does not want to take it nor miralax - Current Medication List Current Medications: Active Medications Acetaminophen (Tylenol -) 650 mg PO Q4H PRN PRN Reason: PAIN LEVEL 1-5 Alprazolam (Xanax -) 0.25 mg PO BID PRN PRN Reason: ANXIETY Last Admin: 08/18/19 22:16 Dose: 0.25 mg Amitriptyline HCl (Elavil -) 50 mg PO HS [facility] Last Admin: 08/18/19 22:15 Dose: 50 mg Aspirin (Asa -) 81 mg PO DAILY [facility] Last Admin: 08/18/19 11:44 Dose: 81 mg Atorvastatin Calcium (Lipitor -) 80 mg PO [facility] Last Admin: 08/18/19 22:15 Dose: 80 mg Calcium Acetate (Phoslo -) 667 mg PO TIDCM [facility] Last Admin: 08/18/19 17:32 Dose: 667 mg Carvedilol (Coreg -) 25 mg PO BID [facility] Last Admin: 08/18/19 22:30 Dose: Not Given Cholestyramine Resin (Questran Light Packet -) 4 gm PO BID [facility] Last Admin: 08/18/19 22:31 Dose: Not Given Clopidogrel Bisulfate (Plavix -) 75 mg PO DAILY [facility] Last Admin: 08/18/19 11:44 Dose: 75 mg Ferrous Sulfate (Feosol -) 325 mg PO BIDWM [facility] Last Admin: 08/18/19 17:31 Dose: 325 mg Sodium Chloride (Normal Saline -) 250 mls @ 3,000 mls/hr IV PRN PRN PRN Reason: Hypotension during Dialysis Stop: 08/17/19 17:58 Insulin Aspart (Nov[facility] Vial Sliding Scale -) [facility] Protocol Last Admin: 08/18/19 17:33 Dose: Not Given Isosorbide Mononitrate (Imdur -) 30 mg PO DAILY [facility] Last Admin: 08/18/19 11:44 Dose: 30 mg Losartan Potassium (Cozaar -) 100 mg PO DAILY [facility] Last Admin: 08/18/19 11:45 Dose: 100 mg Nifedipine (Procardia Xl -) 120 mg PO DAILY [facility] Last Admin: 08/18/19 11:45 Dose: 120 mg Promethazine HCl (Phenergan Injection -) 12.5 mg IVPUSH Q6H PRN PRN Reason: NAUSEA Last Admin: 08/15/19 10:34 Dose: 12.5 mg Sevelamer Carbonate (Renvela -) 1,600 mg PO TIDCM [facility] Last Admin: 08/18/19 17:31 Dose: 1,600 mg - Objective Vital Signs: Vital Signs Temperature 98.4 F 08/18/19 22:00 Pulse Rate 67 08/18/19 22:00 Respiratory Rate 18 08/18/19 22:00 Blood Pressure 106/46 L 08/18/19 22:00 O2 Sat by Pulse Oximetry (%) 98 08/18/19 21:00 Constitutional: Yes: No Distress, Calm Eyes: Yes: Conjunctiva Clear HENT: Yes: Atraumatic Neck: Yes: Supple Cardiovascular: Yes: Regular Rate and Rhythm Respiratory: Yes: CTA Bilaterally Gastrointestinal: Yes: Soft. No: Tenderness Genitourinary: No: Hematuria Extremities: No: Cold, Cool Edema: No Integumentary: No: Rash Neurological: Yes: WNL, Alert, Oriented ...Motor Strength: WNL Psychiatric: Yes: WNL, Alert, Oriented. No: Agitated, Suicidal Ideation Labs: CBC, BMP 08/18/19 05:05 08/18/19 05:05 INR, PTT INR 0.92 (0.83-1.09) 08/14/19 03:26 - ....Imaging Other: Report Reviewed Assessment/Plan 84 YOF ASHD HTN CHF COPD ESRD / HD PVD DM uncontrolled HTN, SOB, nonSTEMI / +CE - improved and stable; BP control; cardiology f/u; echo and stress test per cardio HD per renal falls PFX d/w pt and staff
[2019-08-19] MEDS: INSULIN SLIDING SCALE (NOVOLOG) 1 VIAL SQ SCH ×2 (06:28→16:45)
[2019-08-19 07:56] LABS: HEMATOCRIT 28.2 % (32.4-45.2); HEMOGLOBIN 9.4 GM/dL (10.7-15.3); MCH 31.7 pg (25.7-33.7); MCHC 33.4 g/dl (32.0-36.0); MEAN CELL VOLUME 94.7 fl (80-96); MEAN PLT VOLUME 9.3 fl (7.5-11.1); PLATELET COUNT 225 K/MM3 (134-434); RBC 2.98 M/mm3 (3.60-5.2); RDW 16.2 % (11.6-15.6); WHITE BLOOD COUNT 7.6 K/mm3 (4.0-10.0)
--- NOTE | 2019-08-19 09:36 | PN ---
Progress Note, Physician History of Present Illness: Dyspnea improving post HD. Wellens TWI on ECG; elevated TNI plateaued, ambulates with walker assistance. - Current Medication List Current Medications: Active Medications Acetaminophen (Tylenol -) 650 mg PO Q4H PRN PRN Reason: PAIN LEVEL 1-5 Alprazolam (Xanax -) 0.25 mg PO BID PRN PRN Reason: ANXIETY Last Admin: 08/18/19 22:16 Dose: 0.25 mg Amitriptyline HCl (Elavil -) 50 mg PO HS [facility] Last Admin: 08/18/19 22:15 Dose: 50 mg Aspirin (Asa -) 81 mg PO DAILY [facility] Last Admin: 08/18/19 11:44 Dose: 81 mg Atorvastatin Calcium (Lipitor -) 80 mg PO [facility] Last Admin: 08/18/19 22:15 Dose: 80 mg Calcium Acetate (Phoslo -) 667 mg PO TIDCM [facility] Last Admin: 08/18/19 17:32 Dose: 667 mg Carvedilol (Coreg -) 25 mg PO BID [facility] Last Admin: 08/18/19 22:30 Dose: Not Given Cholestyramine Resin (Questran Light Packet -) 4 gm PO BID [facility] Last Admin: 08/18/19 22:31 Dose: Not Given Clopidogrel Bisulfate (Plavix -) 75 mg PO DAILY [facility] Last Admin: 08/18/19 11:44 Dose: 75 mg Ferrous Sulfate (Feosol -) 325 mg PO BIDWM [facility] Last Admin: 08/18/19 17:31 Dose: 325 mg Sodium Chloride (Normal Saline -) 250 mls @ 3,000 mls/hr IV PRN PRN PRN Reason: Hypotension during Dialysis Stop: 08/17/19 17:58 Insulin Aspart (Novolog Vial Sliding Scale -) [facility]; Protocol Last Admin: 08/19/19 06:28 Dose: Not Given Isosorbide Mononitrate (Imdur -) 30 mg PO DAILY [facility] Last Admin: 08/18/19 11:44 Dose: 30 mg Losartan Potassium (Cozaar -) 100 mg PO DAILY [facility] Last Admin: 08/18/19 11:45 Dose: 100 mg Nifedipine (Procardia Xl -) 120 mg PO DAILY [facility] Last Admin: 08/18/19 11:45 Dose: 120 mg Promethazine HCl (Phenergan Injection -) 12.5 mg IVPUSH Q6H PRN PRN Reason: NAUSEA Last Admin: 08/15/19 10:34 Dose: 12.5 mg Sevelamer Carbonate (Renvela -) 1,600 mg PO TIDCM [facility] Last Admin: 08/18/19 17:31 Dose: 1,600 mg - Objective Vital Signs: Vital Signs Temperature 98.1 F 08/19/19 06:00 Pulse Rate 72 08/19/19 06:00 Respiratory Rate 18 08/19/19 06:00 Blood Pressure 123/54 L 08/19/19 06:00 O2 Sat by Pulse Oximetry (%) 98 08/18/19 21:00 Constitutional: Yes: No Distress, Calm, Thin Neck: Yes: Supple Cardiovascular: Yes: Regular Rate and Rhythm Respiratory: Yes: Regular, Diminished, On Nasal O2 Gastrointestinal: Yes: Normal Bowel Sounds, Soft Edema: No Labs: CBC, BMP 08/19/19 06:15 08/18/19 05:05 INR, PTT INR 0.92 (0.83-1.09) 08/14/19 03:26 - ....Imaging EKG: Report Reviewed (Tele: NSR) Problem List - Problems (1) Diastolic CHF Code(s): I50.30 - UNSPECIFIED DIASTOLIC (CONGESTIVE) HEART FAILURE Qualifiers: Heart failure chronicity: acute on chronic Qualified Code(s): I50.33 - Acute on chronic diastolic (congestive) heart failure (2) Elevated troponin Code(s): R74.8 - ABNORMAL LEVELS OF OTHER SERUM ENZYMES (3) Hyperlipidemia Code(s): E78.5 - HYPERLIPIDEMIA, UNSPECIFIED Qualifiers: Hyperlipidemia type: pure hypercholesterolemia Qualified Code(s): E78.00 - Pure hypercholesterolemia, unspecified; E78.0 - Pure hypercholesterolemia (4) Missed dialysis Code(s): HKG1848 - (5) NSTEMI (non-ST elevated myocardial infarction) Code(s): I21.4 - NON-ST ELEVATION (NSTEMI) MYOCARDIAL INFARCTION (6) Anxiety Code(s): F41.9 - ANXIETY DISORDER, UNSPECIFIED (7) CAD (coronary artery disease) Code(s): I25.10 - ATHSCL HEART DISEASE OF [place] CORONARY ARTERY W/O ANG PCTRS Qualifiers: Coronary Disease-Associated Artery/Lesion type: [place] artery [place] vs. transplanted heart: [place] heart Associated angina: without angina Qualified Code(s): I25.10 - Atherosclerotic heart disease of [place] coronary artery without angina pectoris (8) COPD (chronic obstructive pulmonary disease) Code(s): J44.9 - CHRONIC OBSTRUCTIVE PULMONARY DISEASE, UNSPECIFIED Qualifiers: COPD type: unspecified COPD Qualified Code(s): J44.9 - Chronic obstructive pulmonary disease, unspecified (9) Diabetes mellitus Code(s): E11.9 - TYPE 2 DIABETES MELLITUS WITHOUT COMPLICATIONS Qualifiers: Diabetes mellitus type: type 2 Diabetes mellitus complication status: with kidney complications Diabetes mellitus complication detail: with chronic kidney disease Chronic kidney disease stage: on chronic dialysis (10) ESRD (end stage renal disease) on dialysis Code(s): N18.6 - END STAGE RENAL DISEASE; Z99.2 - DEPENDENCE ON RENAL DIALYSIS (11) Hyperlipidemia associated with type 2 diabetes mellitus Code(s): E11.69 - TYPE 2 DIABETES MELLITUS WITH OTHER SPECIFIED COMPLICATION; E78.5 - HYPERLIPIDEMIA, UNSPECIFIED (12) Hypertension, uncontrolled Code(s): I10 - ESSENTIAL (PRIMARY) HYPERTENSION (13) Hypertensive heart disease Code(s): I11.9 - HYPERTENSIVE HEART DISEASE WITHOUT HEART FAILURE Qualifiers: Heart failure presence: with heart failure Heart failure type: diastolic Heart failure chronicity: acute on chronic Qualified Code(s): I11.0 - Hypertensive heart disease with heart failure; I50.33 - Acute on chronic diastolic (congestive) heart failure (14) PAD (peripheral artery disease) Code(s): I73.9 - PERIPHERAL VASCULAR DISEASE, UNSPECIFIED (15) S/P femoropopliteal bypass surgery Code(s): Z95.828 - PRESENCE OF OTHER VASCULAR IMPLANTS AND GRAFTS (16) Subendocardial ischemia Code(s): I24.8 - OTHER FORMS OF ACUTE ISCHEMIC HEART DISEASE Assessment/Plan 08/19/2019 Echo: Normal LV and RV size and fxn LVEF 55-60%, mild MR, TR, AR 05/27/2019 Echo: Normal LV size and fxn LVEF 55-60%, grade I DD, normal RV fxn, normal atrial sizes, mild MR, TR, AR 04/01/2016 Pharm stress: Mild apical and inferoseptal ischemia, LVEF 70% 1. CAD with subendocardial ishemia/demand ischemic injury/Wellens T waves changes angina pectoris 2. Diastolic LV dysfunction with clinical class 0-I NYHA classification LV failure 3. Hypertensive urgency in a patient with known history of hypertensive cardiovascular disease, clinically resolved 4. DM 5. Hypercholesterolemia 6. History of PAD post right fem-pop bypass 7. COPD 8. End-stage renal disease on hemodialysis, dialysis noncompliance 9. Anemia 10. Post toe amputation for osteomyelitis PLAN: 1. Continue Coreg 25 bid 2. Continue Procardia XL 120 qd 3. Continue Cozaar 100 qd 4. Continue Imdur 30 qd 5. Continue ASA 81 qd and Plavix 75 qd 7. Continue Lipitor 80 qd 8. F/u MPI study to assess severity of CAD 9. Hemodialysis as per renal service, and emphasized importance of compliance
[2019-08-19] MEDS ORDERED: REGADENOSON 0.4 MG/5 ML PRE-FILLED SYRINGE IVPUSH ONE ×2 (10:26→10:45)
--- NOTE | 2019-08-19 10:47 | PN ---
Progress Note, Physician - Current Medication List Current Medications: Active Medications Acetaminophen (Tylenol -) 650 mg PO Q4H PRN PRN Reason: PAIN LEVEL 1-5 Alprazolam (Xanax -) 0.25 mg PO BID PRN PRN Reason: ANXIETY Last Admin: 08/18/19 22:16 Dose: 0.25 mg Amitriptyline HCl (Elavil -) 50 mg PO HS [facility] Last Admin: 08/18/19 22:15 Dose: 50 mg Aspirin (Asa -) 81 mg PO DAILY [facility] Last Admin: 08/18/19 11:44 Dose: 81 mg Atorvastatin Calcium (Lipitor -) 80 mg PO HS [facility] Last Admin: 08/18/19 22:15 Dose: 80 mg Calcium Acetate (Phoslo -) 667 mg PO TIDCM [facility] Last Admin: 08/18/19 17:32 Dose: 667 mg Carvedilol (Coreg -) 25 mg PO BID [facility] Last Admin: 08/18/19 22:30 Dose: Not Given Cholestyramine Resin (Questran Light Packet -) 4 gm PO BID [facility] Last Admin: 08/18/19 22:31 Dose: Not Given Clopidogrel Bisulfate (Plavix -) 75 mg PO DAILY [facility] Last Admin: 08/18/19 11:44 Dose: 75 mg Ferrous Sulfate (Feosol -) 325 mg PO BIDWM [facility] Last Admin: 08/18/19 17:31 Dose: 325 mg Sodium Chloride (Normal Saline -) 250 mls @ 3,000 mls/hr IV PRN PRN PRN Reason: Hypotension during Dialysis Stop: 08/17/19 17:58 Insulin Aspart (Nov[facility] Vial Sliding Scale -) [facility]; Protocol Last Admin: 08/19/19 06:28 Dose: Not Given Isosorbide Mononitrate (Imdur -) 30 mg PO DAILY [facility] Last Admin: 08/18/19 11:44 Dose: 30 mg Losartan Potassium (Cozaar -) 100 mg PO DAILY [facility] Last Admin: 08/18/19 11:45 Dose: 100 mg Nifedipine (Procardia Xl -) 120 mg PO DAILY [facility] Last Admin: 08/18/19 11:45 Dose: 120 mg Promethazine HCl (Phenergan Injection -) 12.5 mg IVPUSH Q6H PRN PRN Reason: NAUSEA Last Admin: 08/15/19 10:34 Dose: 12.5 mg Sevelamer Carbonate (Renvela -) 1,600 mg PO TIDCM [facility] Last Admin: 08/18/19 17:31 Dose: 1,600 mg - Objective Vital Signs: Vital Signs Temperature 98.1 F 08/19/19 06:00 Pulse Rate 72 08/19/19 06:00 Respiratory Rate 18 08/19/19 06:00 Blood Pressure 123/54 L 08/19/19 06:00 O2 Sat by Pulse Oximetry (%) 98 08/18/19 21:00 Labs: CBC, BMP 08/19/19 06:15 08/18/19 05:05 INR, PTT INR 0.92 (0.83-1.09) 08/14/19 03:26 Problem List - Problems (1) Cigarette nicotine dependence Code(s): F17.210 - NICOTINE DEPENDENCE, CIGARETTES, UNCOMPLICATED (2) Diastolic CHF Code(s): I50.30 - UNSPECIFIED DIASTOLIC (CONGESTIVE) HEART FAILURE Qualifiers: Heart failure chronicity: acute on chronic Qualified Code(s): I50.33 - Acute on chronic diastolic (congestive) heart failure (3) Missed dialysis Code(s): [id number] - (4) Acute respiratory failure Code(s): J96.00 - ACUTE RESPIRATORY FAILURE, UNSP W HYPOXIA OR HYPERCAPNIA Qualifiers: (5) Anemia Code(s): D64.9 - ANEMIA, UNSPECIFIED Qualifiers: Anemia type: due to chronic kidney disease Chronic kidney disease stage: on chronic dialysis Qualified Code(s): N18.6 - End stage renal disease; D63.1 - Anemia in chronic kidney disease; Z99.2 - Dependence on renal dialysis (6) CAD (coronary artery disease) Code(s): I25.10 - ATHSCL HEART DISEASE OF [place] CORONARY ARTERY W/O ANG PCTRS Qualifiers: Coronary Disease-Associated Artery/Lesion type: [place] artery [place] vs. transplanted heart: [place] heart Associated angina: without angina Qualified Code(s): I25.10 - Atherosclerotic heart disease of [place] coronary artery without angina pectoris (7) CKD stage 5 secondary to hypertension Code(s): I12.0 - HYP CHR KIDNEY DISEASE W STAGE 5 CHR KIDNEY DISEASE OR ESRD; N18.5 - CHRONIC KIDNEY DISEASE, STAGE 5 (8) COPD (chronic obstructive pulmonary disease) Code(s): J44.9 - CHRONIC OBSTRUCTIVE PULMONARY DISEASE, UNSPECIFIED Qualifiers: COPD type: unspecified COPD Qualified Code(s): J44.9 - Chronic obstructive pulmonary disease, unspecified (9) ESRD (end stage renal disease) Code(s): N18.6 - END STAGE RENAL DISEASE (10) Hypertension, uncontrolled Code(s): I10 - ESSENTIAL (PRIMARY) HYPERTENSION (11) PAD (peripheral artery disease) Code(s): I73.9 - PERIPHERAL VASCULAR DISEASE, UNSPECIFIED Assessment/Plan ASSESSMENT AND PLAN: Acute Hypoxic Respiratory Failure improved Hypertensive Urgency improved Acute on Chronic Diastolic Heart Failure improved +Troponins - r/o NSTEMI vs [place] Ischemia ESRD on HD COPD PAD HTN DM Hyperlipidemia Anxiety - HD per renal - O2 as needed - ASA, statin, beta pepito - anticoagulation per cardiology - BP control - inhaled bronchodilators as needed - DVT prophylaxis DR SEARS
[2019-08-19] MEDS: FERROUS SO4 325 MG TABLET (FP) PO SCH ×2 (12:55→16:45)
[2019-08-19] MEDS: CALCIUM ACETATE 667 MG CAPSULE (FP) PO SCH ×3 (12:56→16:45)
[2019-08-19] MEDS: SEVELAMER CARBONATE 800 MG TAB (FP) PO SCH ×3 (12:56→16:45)
--- NOTE | 2019-08-19 13:05 | ECHO ---
Name: ALBERTO, CONG Exam:Adult Echocardiogram Study Date: 08/19/2019 08:35 AM Age: 84 yrs Height: 63 in Weight: 115 lb BSA: 1.5 m2 MMode/2D Measurements & Calculations IVSd: 0.90 cm Ao root diam: 2.2 cm LVIDd: 3.0 cm LA dimension: 3.0 cm LVIDs: 2.5 cm ACS: 1.6 cm LVPWd: 0.98 cm EDV(Teich): 36.2 ml LVOT diam: 1.6 cm ESV(Teich): 21.4 ml RV S Yaw: 12.0 cm/sec Doppler Measurements & Calculations MV E max yaw: 80.2 cm/sec MVA(VTI): 1.9 cm2 MV A max yaw: 111.1 cm/sec MV V2 max: 111.1 cm/sec MV E/A: 0.72 MV max P.9 mmHg MV dec time: 0.33 sec MV V2 mean: 57.9 cm/sec MV mean P.6 mmHg MV V2 VTI: 28.6 cm Ao V2 max: 139.0 cm/sec AI max yaw: 380.1 cm/sec Ao max P.7 mmHg AI max P.8 mmHg Ao V2 mean: 101.5 cm/sec Ao mean P.5 mmHg AI dec slope: 271.1 cm/sec2 Ao V2 VTI: 30.4 cm LAMIN(I,D): 1.8 cm2 AI P1/2t: 410.7 msec LAMIN(V,D): 1.9 cm2 LV V1 max P.7 mmHg MR max yaw: 298.6 cm/sec LV V1 mean P.6 mmHg MR max P.7 mmHg LV V1 max: 129.0 cm/sec LV V1 mean: 88.4 cm/sec LV V1 VTI: 26.8 cm SV(LVOT): 54.0 ml TR max yaw: 241.6 cm/sec TR max P.4 mmHg Med Peak E' Yaw: 3.9 cm/sec Med E/e': 20.6 Lat Peak E' Yaw: 8.6 cm/sec Lat E/e': 9.4 Procedure A complete two-dimensional transthoracic echocardiogram was performed (2D, M-mode, Doppler and color flow Doppler). Left Ventricle The left ventricle is normal in size. Left ventricular systolic function is normal. Ejection Fraction = 55- 60%. LV diastology reveals impaired relaxation with elevated filling pressure (E/E' 20). No regional wall motion abnormalities noted. Right Ventricle The right ventricle is normal size. The right ventricular systolic function is normal. RV systolic TD I is 12 cm/s. Atria The left atrial size is normal. Right atrial size is normal. Mitral Valve There is mild mitral valve thickening. There is mild mitral annular calcification. There is mild mitr al regurgitation. Tricuspid Valve The tricuspid valve is normal in structure and function. There is mild tricuspid regurgitation. Right ventricular systolic pressure is normal. Aortic Valve There is mild aortic sclerosis.;. Mild aortic regurgitation. Pulmonic Valve The pulmonic valve is not well visualized. Great Vessels The aortic root is normal size. Pericardium/Pleura There is no pericardial effusion. Interpretation Summary The left ventricle is normal in size. Left ventricular systolic function is normal. No regional wall motion abnormalities noted. Ejection Fraction = 55-60%. LV diastology reveals impaired relaxation with elevated filling pressure (E/E' 20) The right ventricular systolic function is normal. The left atrial size is normal. Right atrial size is normal. There is mild mitral valve thickening. There is mild mitral annular calcification. There is mild mitral regurgitation. There is mild tricuspid regurgitation. Right ventricular systolic pressure is normal. There is mild aortic sclerosis. Mild aortic regurgitation. There is no pericardial effusion. Joseph Abbott MD 08/19/2019 01:05 PM
[2019-08-19] MEDS: CARVEDILOL 25 MG TABLET (FP) PO SCH ×2 (13:07→22:27)
[2019-08-19] MEDS: ISOSORBIDE MONONITRATE 30 MG TAB.SR.24H (FP) PO SCH (13:07)
[2019-08-19] MEDS: CLOPIDOGREL BISULFATE 75 MG TABLET (FP) PO SCH (13:07)
[2019-08-19] MEDS: ASPIRIN 81 MG CHEWABLE TABLETS PO SCH (13:07)
[2019-08-19] MEDS: CHOLESTYRAMINE/ASPARTAME 4 GM PACKET PO SCH ×2 (13:07→22:28)
[2019-08-19] MEDS: NIFEdipine E.R 60 MG TABLET (UD) PO SCH (13:07)
[2019-08-19] MEDS: LOSARTAN POTASSIUM 50 MG TABLET (FP) PO SCH (13:08)
--- NOTE | 2019-08-19 14:03 | PN ---
Progress Note (short form) - Note Progress Note: Renal follow up for ESRD on HD Seen and examined following stress test offers no acute complaints denies any chest pain or shortness of breath s/p dialysis yesterday Vital Signs Temperature 98.1 F 08/19/19 06:00 Pulse Rate 72 08/19/19 06:00 Respiratory Rate 18 08/19/19 06:00 Blood Pressure 123/54 L 08/19/19 06:00 O2 Sat by Pulse Oximetry (%) 98 08/18/19 21:00 Intake & Output 08/16/19 08/17/19 08/18/19 08/19/19 23:59 23:59 23:59 23:59 Intake Total 1506 480 760 Output Total 3000 3400 Balance -1494 480 -2640 NAD awake and alert neck supple RRR CTA, no rales or wheeze soft NT/ND no LE edema, clubbing or cyanosis CBC, BMP 08/19/19 06:15 08/18/19 05:05 Current Medications Acetaminophen (Tylenol -) 650 mg PO Q4H PRN PRN Reason: PAIN LEVEL 1-5 Alprazolam (Xanax -) 0.25 mg PO BID PRN PRN Reason: ANXIETY Last Admin: 08/18/19 22:16 Dose: 0.25 mg Amitriptyline HCl (Elavil -) 50 mg PO HS [facility] Last Admin: 08/18/19 22:15 Dose: 50 mg Aspirin (Asa -) 81 mg PO DAILY [facility] Last Admin: 08/19/19 13:07 Dose: 81 mg Atorvastatin Calcium (Lipitor -) 80 mg PO HS [facility] Last Admin: 08/18/19 22:15 Dose: 80 mg Calcium Acetate (Phoslo -) 667 mg PO TIDCM [facility] Last Admin: 08/19/19 13:08 Dose: 667 mg Carvedilol (Coreg -) 25 mg PO BID [facility] Last Admin: 08/19/19 13:07 Dose: 25 mg Cholestyramine Resin (Questran Light Packet -) 4 gm PO BID [facility] Last Admin: 08/19/19 13:07 Dose: 4 gm Clopidogrel Bisulfate (Plavix -) 75 mg PO DAILY [facility] Last Admin: 08/19/19 13:07 Dose: 75 mg Ferrous Sulfate (Feosol -) 325 mg PO BIDWM [facility] Last Admin: 08/19/19 12:55 Dose: Not Given Sodium Chloride (Normal Saline -) 250 mls @ 3,000 mls/hr IV PRN PRN PRN Reason: Hypotension during Dialysis Stop: 08/17/19 17:58 Insulin Aspart (Novolog Vial Sliding Scale -) 1 vial SQ BIDAC [facility]; Protocol Last Admin: 08/19/19 06:28 Dose: Not Given Isosorbide Mononitrate (Imdur -) 30 mg PO DAILY [facility] Last Admin: 08/19/19 13:07 Dose: 30 mg Losartan Potassium (Cozaar -) 100 mg PO DAILY [facility] Last Admin: 08/19/19 13:08 Dose: 100 mg Nifedipine (Procardia Xl -) 120 mg PO DAILY [facility] Last Admin: 08/19/19 13:07 Dose: 120 mg Promethazine HCl (Phenergan Injection -) 12.5 mg IVPUSH Q6H PRN PRN Reason: NAUSEA Last Admin: 08/15/19 10:34 Dose: 12.5 mg Sevelamer Carbonate (Renvela -) 1,600 mg PO TIDCM [facility] Last Admin: 08/19/19 13:08 Dose: 1,600 mg 84 year old woman with history of ESRD on HD (Monday and Monday), Hypertension, PVD, Smoker who presented from home with shortness of breath and found to have acute pulmonary congestion and hypertensive emergency. 1. acute pulmonary edema 2. hypertensive emergency 3. elevated cardiac enzyme r/o ACS 4. ESRD on HD 5. LE pain 6. Anxiety no acute need for dialysis today will arrange for HD treatment tomorrow f/u stress test results cardiology follow up continue Losartan, Nifedipne ER low salt diet BP and fluid status improved Thank you Quentin Goyal DO
[2019-08-19] MEDS: ALPRAZolam 0.25 MG TABLET PO PRN (17:45)
[2019-08-19] MEDS: ATORVASTATIN CA 80 MG TABLET (FP) PO SCH (22:27)
[2019-08-19] MEDS: AMITRIPTYLINE HCL 25 MG TABLET (FP) PO SCH (22:27)
[2019-08-20 06:37] LABS: HEMATOCRIT 28.3 % (32.4-45.2); HEMOGLOBIN 9.6 GM/dL (10.7-15.3); MCH 32.1 pg (25.7-33.7); MCHC 34.1 g/dl (32.0-36.0); MEAN CELL VOLUME 94.1 fl (80-96); MEAN PLT VOLUME 9.4 fl (7.5-11.1); PLATELET COUNT 240 K/MM3 (134-434); WHITE BLOOD COUNT 8.9 K/mm3 (4.0-10.0)
[2019-08-20] MEDS: INSULIN SLIDING SCALE (NOVOLOG) 1 VIAL SQ SCH ×2 (06:40→16:42)
[2019-08-20] MEDS: FERROUS SO4 325 MG TABLET (FP) PO SCH ×2 (08:29→17:22)
[2019-08-20] MEDS: SEVELAMER CARBONATE 800 MG TAB (FP) PO SCH ×3 (08:31→17:22)
[2019-08-20] MEDS: CALCIUM ACETATE 667 MG CAPSULE (FP) PO SCH ×3 (08:31→17:22)
[2019-08-20] MEDS ORDERED: PT OWN MED DRAWER 7, Y5N ONE (09:11)
[2019-08-20] MEDS: CHOLESTYRAMINE/ASPARTAME 4 GM PACKET PO SCH ×2 (10:22→22:11)
[2019-08-20] MEDS: LOSARTAN POTASSIUM 50 MG TABLET (FP) PO SCH (10:23)
[2019-08-20] MEDS: ISOSORBIDE MONONITRATE 30 MG TAB.SR.24H (FP) PO SCH (10:24)
[2019-08-20] MEDS: ASPIRIN 81 MG CHEWABLE TABLETS PO SCH (10:24)
[2019-08-20] MEDS: CARVEDILOL 25 MG TABLET (FP) PO SCH ×2 (10:24→22:08)
[2019-08-20] MEDS: CLOPIDOGREL BISULFATE 75 MG TABLET (FP) PO SCH (10:24)
[2019-08-20] MEDS: NIFEdipine E.R 60 MG TABLET (UD) PO SCH (10:36)
--- NOTE | 2019-08-20 11:31 | PN ---
Progress Note, Physician Chief Complaint: Events noted Not in distress History of Present Illness: Patient was seen and examined. Awake and alert. Chart was reviewed Denies chest pain, SOB or palpitations Nuclear MPI abnormal study with moderate inferor ischemia and normal LVEF Echocardiography with normal LVEF, mild MR, mild TR, mild AR and elevated filling pressure, diastolic dysfunction - Current Medication List Current Medications: Active Medications Acetaminophen (Tylenol -) 650 mg PO Q4H PRN PRN Reason: PAIN LEVEL 1-5 Alprazolam (Xanax -) 0.25 mg PO BID PRN PRN Reason: ANXIETY Last Admin: 08/19/19 17:45 Dose: 0.25 mg Amitriptyline HCl (Elavil -) 50 mg PO HS [facility] Last Admin: 08/19/19 22:27 Dose: 50 mg Aspirin (Asa -) 81 mg PO DAILY [facility] Last Admin: 08/20/19 10:24 Dose: 81 mg Atorvastatin Calcium (Lipitor -) 80 mg PO [facility] Last Admin: 08/19/19 22:27 Dose: 80 mg Calcium Acetate (Phoslo -) 667 mg PO TIDCM [facility] Last Admin: 08/20/19 08:31 Dose: 667 mg Carvedilol (Coreg -) 25 mg PO BID [facility] Last Admin: 08/20/19 10:24 Dose: 25 mg Cholestyramine Resin (Questran Light Packet -) 4 gm PO BID [facility] Last Admin: 08/20/19 10:22 Dose: 4 gm Clopidogrel Bisulfate (Plavix -) 75 mg PO DAILY [facility] Last Admin: 08/20/19 10:24 Dose: 75 mg Ferrous Sulfate (Feosol -) 325 mg PO BIDWM [facility] Last Admin: 08/20/19 08:29 Dose: 325 mg Sodium Chloride (Normal Saline -) 250 mls @ 3,000 mls/hr IV PRN PRN PRN Reason: Hypotension during Dialysis Stop: 08/17/19 17:58 Insulin Aspart ([facility] V[facility] Sliding [facility] -) [facility] Last Admin: 08/20/19 06:40 Dose: Not Given Isosorbide Mononitrate (Imdur -) 30 mg PO DAILY [facility] Last Admin: 08/20/19 10:24 Dose: 30 mg Losartan Potassium (Cozaar -) 100 mg PO DAILY [facility] Last Admin: 08/20/19 10:23 Dose: 100 mg Nifedipine (Procardia Xl -) 120 mg PO DAILY [facility] Last Admin: 08/20/19 10:36 Dose: 120 mg Promethazine HCl (Phenergan Injection -) 12.5 mg IVPUSH Q6H PRN PRN Reason: NAUSEA Last Admin: 08/15/19 10:34 Dose: 12.5 mg Sevelamer Carbonate (Renvela -) 1,600 mg PO TIDCM [facility] Last Admin: 08/20/19 08:31 Dose: 1,600 mg - Objective Vital Signs: Vital Signs Temperature 99 F 08/20/19 06:00 Pulse Rate 72 08/20/19 06:00 Respiratory Rate 18 08/20/19 06:00 Blood Pressure 125/58 L 08/20/19 06:00 O2 Sat by Pulse Oximetry (%) 96 08/19/19 21:00 Eyes: Yes: PERRL HENT: Yes: Atraumatic Neck: Yes: Supple Cardiovascular: Yes: Regular Rate and Rhythm, S1, S2 Respiratory: Yes: CTA Bilaterally Gastrointestinal: Yes: Normal Bowel Sounds, Soft. No: Tenderness Edema: No Additional Findings/Remarks: - Review of Systems Constitutional: denies Chills. denies: Fever Cardiovascular: denies Shortness of Breath. denies: Chest Pain, Palpitations Respiratory: denies SOB. denies: Cough, Hemoptysis, Orthopnea, PND Gastrointestinal: denies: Abdominal Pain, Constipation, Diarrhea, Melena, Nausea , Rectal Bleeding, Vomiting Genitourinary: denies: Dysuria, Hematuria Musculoskeletal: denies Joint Pain Neurological: denies: Dizziness, Headache, Seizure, Syncope Labs: CBC, BMP 08/20/19 05:10 08/18/19 05:05 Problem List - Problems (1) Diastolic CHF Code(s): I50.30 - UNSPECIFIED DIASTOLIC (CONGESTIVE) HEART FAILURE Qualifiers: Heart failure chronicity: acute on chronic Qualified Code(s): I50.33 - Acute on chronic diastolic (congestive) heart failure (2) Elevated troponin Code(s): R74.8 - ABNORMAL LEVELS OF OTHER SERUM ENZYMES (3) Hyperlipidemia Code(s): E78.5 - HYPERLIPIDEMIA, UNSPECIFIED Qualifiers: Hyperlipidemia type: pure hypercholesterolemia Qualified Code(s): E78.00 - Pure hypercholesterolemia, unspecified; E78.0 - Pure hypercholesterolemia (4) Anemia Code(s): D64.9 - ANEMIA, UNSPECIFIED Qualifiers: (5) CAD (coronary artery disease) Code(s): I25.10 - ATHSCL HEART DISEASE OF [place] CORONARY ARTERY W/O ANG PCTRS Qualifiers: Coronary Disease-Associated Artery/Lesion type: [place] artery [place] vs. transplanted heart: [place] heart Associated angina: without angina Qualified Code(s): I25.10 - Atherosclerotic heart disease of [place] coronary artery without angina pectoris (6) COPD (chronic obstructive pulmonary disease) Code(s): J44.9 - CHRONIC OBSTRUCTIVE PULMONARY DISEASE, UNSPECIFIED Qualifiers: COPD type: unspecified COPD Qualified Code(s): J44.9 - Chronic obstructive pulmonary disease, unspecified (7) Diabetes mellitus Code(s): E11.9 - TYPE 2 DIABETES MELLITUS WITHOUT COMPLICATIONS Qualifiers: Diabetes mellitus type: type 2 Diabetes mellitus complication status: with kidney complications Diabetes mellitus complication detail: with chronic kidney disease Chronic kidney disease stage: on chronic dialysis (8) ESRD (end stage renal disease) on dialysis Code(s): N18.6 - END STAGE RENAL DISEASE; Z99.2 - DEPENDENCE ON RENAL DIALYSIS (9) HTN (hypertension) Code(s): I10 - ESSENTIAL (PRIMARY) HYPERTENSION Qualifiers: Hypertension type: unspecified Qualified Code(s): I10 - Essential (primary ) hypertension (10) PAD (peripheral artery disease) Code(s): I73.9 - PERIPHERAL VASCULAR DISEASE, UNSPECIFIED (11) S/P femoropopliteal bypass surgery Code(s): Z95.828 - PRESENCE OF OTHER VASCULAR IMPLANTS AND GRAFTS (12) Subendocardial ischemia Code(s): I24.8 - OTHER FORMS OF ACUTE ISCHEMIC HEART DISEASE Assessment/Plan 1. CAD with subendocardial [place]/demand ischemic injury/Wellens T waves changes angina pectoris 2. Diastolic LV dysfunction with clinical class 0-I NYHA classification LV failure 3. HTN/HCVD 4. DM 5. Hypercholesterolemia 6. History of PAD post right fem-pop bypass 7. COPD 8. End-stage renal disease on hemodialysis 9. Anemia 10. Post toe amputation for osteomyelitis PLAN: 1. Continue Coreg 25 mg BID, Procardia XL 120 mg QD, Cozaar 100 mg QD and Imdur 30 mg QD 2. Continue ASA 81 mg QD and Plavix 75 mg QD 3. Continue Lipitor 80 mg QHS 4. Nuclear MPI reviewed with patient. Recommended optimizing medical therapy 5. Hemodialysis as per renal service, and emphasized importance of compliance Further plans are to follow Joseph Abbott MD
--- NOTE | 2019-08-20 12:12 | PN ---
Progress Note, Physician History of Present Illness: PULMONARY ALERT,COMFORTABLE,-RESP DISTRESS ON HD - Current Medication List Current Medications: Active Medications Acetaminophen (Tylenol -) 650 mg PO Q4H PRN PRN Reason: PAIN LEVEL 1-5 Alprazolam (Xanax -) 0.25 mg PO BID PRN PRN Reason: ANXIETY Last Admin: 08/19/19 17:45 Dose: 0.25 mg Amitriptyline HCl (Elavil -) 50 mg PO HS [facility] Last Admin: 08/19/19 22:27 Dose: 50 mg Aspirin (Asa -) 81 mg PO DAILY [facility] Last Admin: 08/20/19 10:24 Dose: 81 mg Atorvastatin Calcium (Lipitor -) 80 mg PO HS [facility] Last Admin: 08/19/19 22:27 Dose: 80 mg Calcium Acetate (Phoslo -) 667 mg PO TIDCM [facility] Last Admin: 08/20/19 08:31 Dose: 667 mg Carvedilol (Coreg -) 25 mg PO BID [facility] Last Admin: 08/20/19 10:24 Dose: 25 mg Cholestyramine Resin (Questran Light Packet -) 4 gm PO BID [facility] Last Admin: 08/20/19 10:22 Dose: 4 gm Clopidogrel Bisulfate (Plavix -) 75 mg PO DAILY [facility] Last Admin: 08/20/19 10:24 Dose: 75 mg Ferrous Sulfate (Feosol -) 325 mg PO BIDWM [facility] Last Admin: 08/20/19 08:29 Dose: 325 mg Sodium Chloride (Normal Saline -) 250 mls @ 3,000 mls/hr IV PRN PRN PRN Reason: Hypotension during Dialysis Stop: 08/17/19 17:58 Insulin Aspart (Novolog Vial Sliding Scale -) [facility]; Protocol Last Admin: 08/20/19 06:40 Dose: Not Given Isosorbide Mononitrate (Imdur -) 30 mg PO DAILY [facility] Last Admin: 08/20/19 10:24 Dose: 30 mg Losartan Potassium (Cozaar -) 100 mg PO DAILY [facility] Last Admin: 08/20/19 10:23 Dose: 100 mg Nifedipine (Procardia Xl -) 120 mg PO DAILY [facility] Last Admin: 08/20/19 10:36 Dose: 120 mg Promethazine HCl (Phenergan Injection -) 12.5 mg IVPUSH Q6H PRN PRN Reason: NAUSEA Last Admin: 08/15/19 10:34 Dose: 12.5 mg Sevelamer Carbonate (Renvela -) 1,600 mg PO TIDCM [facility] Last Admin: 08/20/19 08:31 Dose: 1,600 mg - Objective Vital Signs: Vital Signs Temperature 99 F 08/20/19 06:00 Pulse Rate 72 08/20/19 06:00 Respiratory Rate 18 08/20/19 06:00 Blood Pressure 125/58 L 08/20/19 06:00 O2 Sat by Pulse Oximetry (%) 96 08/19/19 21:00 Constitutional: Yes: Calm, Thin Eyes: Yes: WNL HENT: Yes: WNL Neck: Yes: WNL Cardiovascular: Yes: Regular Rate and Rhythm, S1, S2 Respiratory: Yes: Diminished Gastrointestinal: Yes: Normal Bowel Sounds, Soft Extremities: Yes: WNL Edema: No Labs: CBC, BMP 08/20/19 05:10 08/18/19 05:05 INR, PTT INR 0.92 (0.83-1.09) 08/14/19 03:26 Problem List - Problems (1) Cigarette nicotine dependence Code(s): F17.210 - NICOTINE DEPENDENCE, CIGARETTES, UNCOMPLICATED (2) Diastolic CHF Code(s): I50.30 - UNSPECIFIED DIASTOLIC (CONGESTIVE) HEART FAILURE Qualifiers: Heart failure chronicity: acute on chronic Qualified Code(s): I50.33 - Acute on chronic diastolic (congestive) heart failure (3) Missed dialysis Code(s): [id number] - (4) Acute respiratory failure Code(s): J96.00 - ACUTE RESPIRATORY FAILURE, UNSP W HYPOXIA OR HYPERCAPNIA Qualifiers: (5) Anemia Code(s): D64.9 - ANEMIA, UNSPECIFIED Qualifiers: Anemia type: due to chronic kidney disease Chronic kidney disease stage: on chronic dialysis Qualified Code(s): N18.6 - End stage renal disease; D63.1 - Anemia in chronic kidney disease; Z99.2 - Dependence on renal dialysis (6) CAD (coronary artery disease) Code(s): I25.10 - ATHSCL HEART DISEASE OF [place] CORONARY ARTERY W/O ANG PCTRS Qualifiers: Coronary Disease-Associated Artery/Lesion type: [place] artery [place] vs. transplanted heart: [place] heart Associated angina: without angina Qualified Code(s): I25.10 - Atherosclerotic heart disease of [place] coronary artery without angina pectoris (7) CKD stage 5 secondary to hypertension Code(s): I12.0 - HYP CHR KIDNEY DISEASE W STAGE 5 CHR KIDNEY DISEASE OR ESRD; N18.5 - CHRONIC KIDNEY DISEASE, STAGE 5 (8) COPD (chronic obstructive pulmonary disease) Code(s): J44.9 - CHRONIC OBSTRUCTIVE PULMONARY DISEASE, UNSPECIFIED Qualifiers: COPD type: unspecified COPD Qualified Code(s): J44.9 - Chronic obstructive pulmonary disease, unspecified (9) ESRD (end stage renal disease) Code(s): N18.6 - END STAGE RENAL DISEASE (10) Hypertension, uncontrolled Code(s): I10 - ESSENTIAL (PRIMARY) HYPERTENSION (11) PAD (peripheral artery disease) Code(s): I73.9 - PERIPHERAL VASCULAR DISEASE, UNSPECIFIED Assessment/Plan - Problems (1) Cigarette nicotine dependence Code(s): F17.210 - NICOTINE DEPENDENCE, CIGARETTES, UNCOMPLICATED (2) Diastolic CHF Code(s): I50.30 - UNSPECIFIED DIASTOLIC (CONGESTIVE) HEART FAILURE Qualifiers: Heart failure chronicity: acute on chronic Qualified Code(s): I50.33 - Acute on chronic diastolic (congestive) heart failure (3) Missed dialysis Code(s): [id number] - (4) Acute respiratory failure Code(s): J96.00 - ACUTE RESPIRATORY FAILURE, UNSP W HYPOXIA OR HYPERCAPNIA Qualifiers: (5) Anemia Code(s): D64.9 - ANEMIA, UNSPECIFIED Qualifiers: Anemia type: due to chronic kidney disease Chronic kidney disease stage: on chronic dialysis Qualified Code(s): N18.6 - End stage renal disease; D63.1 - Anemia in chronic kidney disease; Z99.2 - Dependence on renal dialysis (6) CAD (coronary artery disease) Code(s): I25.10 - ATHSCL HEART DISEASE OF [place] CORONARY ARTERY W/O ANG PCTRS Qualifiers: Coronary Disease-Associated Artery/Lesion type: [place] artery [place] vs. transplanted heart: [place] heart Associated angina: without angina Qualified Code(s): I25.10 - Atherosclerotic heart disease of [place] coronary artery without angina pectoris (7) CKD stage 5 secondary to hypertension Code(s): I12.0 - HYP CHR KIDNEY DISEASE W STAGE 5 CHR KIDNEY DISEASE OR ESRD; N18.5 - CHRONIC KIDNEY DISEASE, STAGE 5 (8) COPD (chronic obstructive pulmonary disease) Code(s): J44.9 - CHRONIC OBSTRUCTIVE PULMONARY DISEASE, UNSPECIFIED Qualifiers: COPD type: unspecified COPD Qualified Code(s): J44.9 - Chronic obstructive pulmonary disease, unspecified (9) ESRD (end stage renal disease) Code(s): N18.6 - END STAGE RENAL DISEASE (10) Hypertension, uncontrolled Code(s): I10 - ESSENTIAL (PRIMARY) HYPERTENSION (11) PAD (peripheral artery disease) Code(s): I73.9 - PERIPHERAL VASCULAR DISEASE, UNSPECIFIED Assessment/Plan ASSESSMENT AND PLAN: Acute Hypoxic Respiratory Failure improved Hypertensive Urgency improved Acute on Chronic Diastolic Heart Failure improved +Troponins - r/o NSTEMI ESRD on HD COPD PAD HTN DM Hyperlipidemia Anxiety - HD per renal - O2 as needed - ASA, statin, beta pepito - anticoagulation per cardiology - BP control - inhaled bronchodilators as needed - DVT prophylaxis DR SEARS
--- NOTE | 2019-08-20 13:30 | PN ---
Progress Note, Physician History of Present Illness: Pt is undergoing HD, c/o weakness, wants to stop HD in the future, states that is too much for her and wants "to go to God". Pt states that is not depressed, just that HD is not for her anymore; pt is asking "for how long I will last without HD". Pt w/o CP, palpitations, SOB, Dizziness, abd pain. Pt is c/o weakness, not strength to go out of bed. Pt states that spoke with Dr. Abbott about her heart testes and decided not togo for cardiac catheterization. - Current Medication List Current Medications: Active Medications Acetaminophen (Tylenol -) 650 mg PO Q4H PRN PRN Reason: PAIN LEVEL 1-5 Alprazolam (Xanax -) 0.25 mg PO BID PRN PRN Reason: ANXIETY Last Admin: 08/19/19 17:45 Dose: 0.25 mg Amitriptyline HCl (Elavil -) 50 mg PO HS [facility] Last Admin: 08/19/19 22:27 Dose: 50 mg Aspirin (Asa -) 81 mg PO DAILY [facility] Last Admin: 08/20/19 10:24 Dose: 81 mg Atorvastatin Calcium (Lipitor -) 80 mg PO HS [facility] Last Admin: 08/19/19 22:27 Dose: 80 mg Calcium Acetate (Phoslo -) 667 mg PO TIDCM [facility] Last Admin: 08/20/19 08:31 Dose: 667 mg Carvedilol (Coreg -) 25 mg PO BID [facility] Last Admin: 08/20/19 10:24 Dose: 25 mg Cholestyramine Resin (Questran Light Packet -) 4 gm PO BID [facility] Last Admin: 08/20/19 10:22 Dose: 4 gm Clopidogrel Bisulfate (Plavix -) 75 mg PO DAILY [facility] Last Admin: 08/20/19 10:24 Dose: 75 mg Ferrous Sulfate (Feosol -) 325 mg PO BIDWM [facility] Last Admin: 08/20/19 08:29 Dose: 325 mg Sodium Chloride (Normal Saline -) 250 mls @ 3,000 mls/hr IV PRN PRN PRN Reason: Hypotension during Dialysis Stop: 08/17/19 17:58 Insulin Aspart (Novolog Vial Sliding Scale -) 1 vial SQ BIDAC [facility]; Protocol Last Admin: 08/20/19 06:40 Dose: Not Given Isosorbide Mononitrate (Imdur -) 30 mg PO DAILY [facility] Last Admin: 08/20/19 10:24 Dose: 30 mg Losartan Potassium (Cozaar -) 100 mg PO DAILY [facility] Last Admin: 08/20/19 10:23 Dose: 100 mg Nifedipine (Procardia Xl -) 120 mg PO DAILY [facility] Last Admin: 08/20/19 10:36 Dose: 120 mg Promethazine HCl (Phenergan Injection -) 12.5 mg IVPUSH Q6H PRN PRN Reason: NAUSEA Last Admin: 08/15/19 10:34 Dose: 12.5 mg Sevelamer Carbonate (Renvela -) 1,600 mg PO TIDCM [facility] Last Admin: 08/20/19 08:31 Dose: 1,600 mg - Objective Vital Signs: Vital Signs Temperature 98.2 F 08/20/19 10:00 Pulse Rate 73 08/20/19 10:00 Respiratory Rate 18 08/20/19 10:00 Blood Pressure 142/65 08/20/19 10:00 O2 Sat by Pulse Oximetry (%) 97 08/20/19 09:00 Constitutional: Yes: No Distress, Calm Cardiovascular: Yes: Regular Rate and Rhythm, S1, S2 Respiratory: Yes: Regular, CTA Bilaterally. No: Rales Gastrointestinal: Yes: Normal Bowel Sounds, Soft, Tenderness Edema: No Neurological: Yes: Alert, Oriented Labs: CBC, BMP 08/20/19 05:10 08/18/19 05:05 INR, PTT INR 0.92 (0.83-1.09) 08/14/19 03:26 Problem List - Problems (1) NSTEMI (non-ST elevated myocardial infarction) Code(s): I21.4 - NON-ST ELEVATION (NSTEMI) MYOCARDIAL INFARCTION (2) Hypertension, uncontrolled Code(s): I10 - ESSENTIAL (PRIMARY) HYPERTENSION (3) ESRD (end stage renal disease) on dialysis Code(s): N18.6 - END STAGE RENAL DISEASE; Z99.2 - DEPENDENCE ON RENAL DIALYSIS (4) COPD (chronic obstructive pulmonary disease) Code(s): J44.9 - CHRONIC OBSTRUCTIVE PULMONARY DISEASE, UNSPECIFIED (5) Anxiety about blushing Code(s): F41.9 - ANXIETY DISORDER, UNSPECIFIED (6) Anxiety Code(s): F41.9 - ANXIETY DISORDER, UNSPECIFIED (7) Missed dialysis Code(s): [id number] - (8) Diabetes mellitus Code(s): E11.9 - TYPE 2 DIABETES MELLITUS WITHOUT COMPLICATIONS Qualifiers: Diabetes mellitus type: type 2 Diabetes mellitus complication status: with kidney complications Diabetes mellitus complication detail: with chronic kidney disease Chronic kidney disease stage: on chronic dialysis Assessment/Plan Pt is undergoing HD now, wants to stop HD in the future but wants to talk with somebody. Palliative care consult. PT consult; pt might placement. I recommended to pt to talk with renal specialist, Dr Goyal, regarding stopping HD.
[2019-08-20] MEDS ORDERED: ONDANSETRON 4 MG/2 ML VIAL IVPUSH ONE (13:31)
[2019-08-20] MEDS: ALPRAZolam 0.25 MG TABLET PO PRN (14:26)
--- NOTE | 2019-08-20 15:19 | PN ---
Progress Note (short form) - Note Progress Note: Renal follow up for ESRD on HD Seen and examined during dialysis BP is low limiting UF catheter with good flow pt is upset and does not elijah to discuss her cardiac issues Vital Signs Temperature 98.6 F 08/20/19 14:00 Pulse Rate 76 08/20/19 14:47 Respiratory Rate 18 08/20/19 14:47 Blood Pressure 95/49 L 08/20/19 14:47 O2 Sat by Pulse Oximetry (%) 97 08/20/19 09:00 Intake & Output 08/17/19 08/18/19 08/19/19 08/20/19 23:59 23:59 23:59 23:59 Intake Total 348 897 6931 400 Output Total 3400 Balance 480 -2640 1065 400 NAD awake and alert neck supple RRR CTA, no rales or wheeze soft NT/ND no LE edema, clubbing or cyanosis CBC, BMP 08/20/19 05:10 08/18/19 05:05 Current Medications Acetaminophen (Tylenol -) 650 mg PO Q4H PRN PRN Reason: PAIN LEVEL 1-5 Last Admin: 08/20/19 14:22 Dose: 650 mg Alprazolam (Xanax -) 0.25 mg PO BID PRN PRN Reason: ANXIETY Last Admin: 08/20/19 14:26 Dose: 0.25 mg Amitriptyline HCl (Elavil -) 50 mg PO HS [facility] Last Admin: 08/19/19 22:27 Dose: 50 mg Aspirin (Asa -) 81 mg PO DAILY [facility] Last Admin: 08/20/19 10:24 Dose: 81 mg Atorvastatin Calcium (Lipitor -) 80 mg PO HS [facility] Last Admin: 08/19/19 22:27 Dose: 80 mg Calcium Acetate (Phoslo -) 667 mg PO TIDCM [facility] Last Admin: 08/20/19 13:46 Dose: 667 mg Carvedilol (Coreg -) 25 mg PO BID [facility] Last Admin: 08/20/19 10:24 Dose: 25 mg Cholestyramine Resin (Questran Light Packet -) 4 gm PO BID [facility] Last Admin: 08/20/19 10:22 Dose: 4 gm Clopidogrel Bisulfate (Plavix -) 75 mg PO DAILY [facility] Last Admin: 08/20/19 10:24 Dose: 75 mg Ferrous Sulfate (Feosol -) 325 mg PO BIDWM [facility] Last Admin: 08/20/19 08:29 Dose: 325 mg Sodium Chloride (Normal Saline -) 250 mls @ 3,000 mls/hr IV PRN PRN PRN Reason: Hypotension during Dialysis Stop: 08/17/19 17:58 Insulin Aspart (Novolog Vial Sliding Scale -) 1 vial SQ BIDAC [facility]; Protocol Last Admin: 08/20/19 06:40 Dose: Not Given Isosorbide Mononitrate (Imdur -) 30 mg PO DAILY [facility] Last Admin: 08/20/19 10:24 Dose: 30 mg Losartan Potassium (Cozaar -) 100 mg PO DAILY [facility] Last Admin: 08/20/19 10:23 Dose: 100 mg Nifedipine (Procardia Xl -) 120 mg PO DAILY [facility] Last Admin: 08/20/19 10:36 Dose: 120 mg Promethazine HCl (Phenergan Injection -) 12.5 mg IVPUSH Q6H PRN PRN Reason: NAUSEA Last Admin: 08/15/19 10:34 Dose: 12.5 mg Sevelamer Carbonate (Renvela -) 1,600 mg PO TIDCM [facility] Last Admin: 08/20/19 13:46 Dose: 1,600 mg 84 year old woman with history of ESRD on HD (Monday and Monday), Hypertension, PVD, Smoker who presented from home with shortness of breath and found to have acute pulmonary congestion and hypertensive emergency. 1. acute pulmonary edema 2. hypertensive emergency 3. NSTEMI 4. ESRD on HD 5. LE pain 6. Anxiety Tolerating dialysis, UF limited by marginal BP next planned dialysis is Monday. Cardiology input appreciated, continued medical management of CAD. continue Losartan, Nifedpine and coreg will continue JACOB with HD for anemia discharge planning as per primary Thank you Quentin Goyal DO
[2019-08-20] MEDS: ATORVASTATIN CA 80 MG TABLET (FP) PO SCH (22:11)
[2019-08-20] MEDS: AMITRIPTYLINE HCL 25 MG TABLET (FP) PO SCH (22:11)
[2019-08-21] MEDS: ALPRAZolam 0.25 MG TABLET PO PRN (00:09)
[2019-08-21] MEDS: INSULIN SLIDING SCALE (NOVOLOG) 1 VIAL SQ SCH (06:22)
--- NOTE | 2019-08-21 07:28 | PN ---
Progress Note (short form) - Note Progress Note: Chief Complaint: Events noted, notes reviewed, resting in bed, denies any chest pain or dyspnea History of Present Illness: Seen and examined on telemetry. Events noted, notes reviewed, resting in bed, denies any chest pain or dyspnea Pharmacologic myocardial perfusion imaging study performed revealed moderate inferior wall defect compatible with mild ischemia and normal LVEF Echocardiography revealed normal LVEF, diastolic dysfunction with elevated filling pressures, mild MR, mild TR and mild AR - Current Medication List Acetaminophen (Tylenol -) 650 mg PO Q4H PRN PRN Reason: PAIN LEVEL 1-5 Alprazolam (Xanax -) 0.25 mg PO BID PRN PRN Reason: ANXIETY Last Admin: 08/19/19 17:45 Dose: 0.25 mg Amitriptyline HCl (Elavil -) 50 mg PO [facility] Last Admin: 08/19/19 22:27 Dose: 50 mg Aspirin (Asa -) 81 mg PO DAILY [facility] Last Admin: 08/20/19 10:24 Dose: 81 mg Atorvastatin Calcium (Lipitor -) 80 mg PO [facility] Last Admin: 08/19/19 22:27 Dose: 80 mg Calcium Acetate (Phoslo -) 667 mg PO TIDCM [facility] Last Admin: 08/20/19 08:31 Dose: 667 mg Carvedilol (Coreg -) 25 mg PO BID [facility] Last Admin: 08/20/19 10:24 Dose: 25 mg Cholestyramine Resin (Questran Light Packet -) 4 gm PO BID [facility] Last Admin: 08/20/19 10:22 Dose: 4 gm Clopidogrel Bisulfate (Plavix -) 75 mg PO DAILY [facility] Last Admin: 08/20/19 10:24 Dose: 75 mg Ferrous Sulfate (Feosol -) 325 mg PO BIDWM [facility] Last Admin: 08/20/19 08:29 Dose: 325 mg Sodium Chloride (Normal Saline -) 250 mls @ 3,000 mls/hr IV PRN PRN PRN Reason: Hypotension during Dialysis Stop: 08/17/19 17:58 Insulin Aspart ([facility] V[facility] Sliding Scale -[facility] Last Admin: 08/20/19 06:40 Dose: Not Given Isosorbide Mononitrate (Imdur -) 30 mg PO DAILY [facility] Last Admin: 08/20/19 10:24 Dose: 30 mg Losartan Potassium (Cozaar -) 100 mg PO DAILY [facility] Last Admin: 08/20/19 10:23 Dose: 100 mg Nifedipine (Procardia Xl -) 120 mg PO DAILY [facility] Last Admin: 08/20/19 10:36 Dose: 120 mg Promethazine HCl (Phenergan Injection -) 12.5 mg IVPUSH Q6H PRN PRN Reason: NAUSEA Last Admin: 08/15/19 10:34 Dose: 12.5 mg Sevelamer Carbonate (Renvela -) 1,600 mg PO TIDCM [facility] Last Admin: 08/20/19 08:31 Dose: 1,600 mg Review of Systems - Review of Systems Constitutional: no symptoms reported Respiratory: denies Cough or Sputum Production Cardiovascular: as noted above Gastrointestinal: denies Nausea, Vomiting, Diarrhea, Constipation or Abdominal Pain Genitourinary: no symptoms reported Musculoskeletal: no symptoms reported Endocrine: no symptoms reported - Objective Vital Signs: Last Vital Signs Temp Pulse Resp BP Pulse Ox 98.6 F 80 16 132/44 L 96 08/21/19 08:32 08/21/19 08:32 08/21/19 08:32 08/21/19 08:32 08/21/19 10:00 Intake & Output 08/18/19 08/19/19 08/20/19 08/21/19 23:59 23:59 23:59 23:59 Intake Total 760 1065 250 150 Output Total 3400 Balance -2640 1065 250 150 Neck: Supple Negative JVD No Bruit Cardiovascular: S1 S2 Regular Rate and Rhythm Respiratory: Clear to A&P Bilaterally Gastrointestinal: Soft Benign Normal Bowel Sounds Extremities: No Edema Labs: CBC, BMP 08/20/19 05:10 08/18/19 05:05 Hepatic Panel Total Bilirubin 0.4 mg/dL (0.2-1) 08/18/19 05:05 AST 18 U/L (15-37) 08/18/19 05:05 ALT 15 U/L (13-61) 08/18/19 05:05 Alkaline Phosphatase 62 U/L (45-117) 08/18/19 05:05 Albumin 2.7 g/dl (3.4-5.0) L 08/18/19 05:05 INR, PTT INR 0.92 (0.83-1.09) 08/14/19 03:26 Assessment/Plan ASSESSMENT: 1. CAD with subendocardial ishemia/demand ischemic injury/Wellens T waves changes abnormal pharmacologic myocardial perfusion imaging study angina pectoris, for medical therapy optimization considering her advanced age and comorbidities 2. Diastolic LV dysfunction with clinical class 0-I NYHA classification LV failure 3. Hypertensive urgency in a patient with known history of hypertensive cardiovascular disease, clinically resolved 4. DM 5. Hypercholesterolemia 6. History of PAD post right femoro-popliteal bypass 7. COPD 8. End-stage renal disease on hemodialysis, dialysis noncompliance 9. Anemia 10. Post toe amputation for osteomyelitis PLAN: 1. Continue Coreg 2. Continue Procardia XL 3. Continue Cozaar 4. Continue Imdur 5. Continue ASA and Plavix 7. Continue Lipitor 8. As outlined above and as outlined in the prior note plan to treat the patient conservatively medically (considering her advanced age and comorbidities ); medical therapy optimization unless symptoms persist and/or progress at which point left heart cardiac catheterization coronary angiography would be recommended 9. Hemodialysis as per renal service, and emphasized importance of compliance Plan to discharge the patient home and advised to follow-up in our office ) Mary Sewell MD
[2019-08-21] MEDS: FERROUS SO4 325 MG TABLET (FP) PO SCH (08:26)
[2019-08-21] MEDS: CALCIUM ACETATE 667 MG CAPSULE (FP) PO SCH ×2 (08:26→13:24)
[2019-08-21] MEDS: SEVELAMER CARBONATE 800 MG TAB (FP) PO SCH ×2 (08:26→13:23)
[2019-08-21 08:33] VITALS: BP 132/44; PULSE 80; TEMP 98.6
[2019-08-21] MEDS ORDERED: ACETAMINOPHEN 325 MG TABLET (FP) PO PRN (09:28)
[2019-08-21] MEDS ORDERED: ONDANSETRON 4 MG TABLET PO PRN (09:28)
--- NOTE | 2019-08-21 09:29 | PN ---
Progress Note, Physician - Current Medication List Current Medications: Active Medications Acetaminophen (Tylenol -) 650 mg PO Q4H PRN PRN Reason: PAIN LEVEL 1-5 Last Admin: 08/20/19 14:22 Dose: 650 mg Alprazolam (Xanax -) 0.25 mg PO BID PRN PRN Reason: ANXIETY Last Admin: 08/21/19 00:09 Dose: 0.25 mg Amitriptyline HCl (Elavil -) 50 mg PO [facility] Last Admin: 08/20/19 22:11 Dose: 50 mg Aspirin (Asa -) 81 mg PO DAILY [facility] Last Admin: 08/20/19 10:24 Dose: 81 mg Atorvastatin Calcium (Lipitor -) 80 mg PO [facility] Last Admin: 08/20/19 22:11 Dose: 80 mg Calcium Acetate (Phoslo -) 667 mg PO TIDCM [facility] Last Admin: 08/21/19 08:26 Dose: 667 mg Carvedilol (Coreg -) 25 mg PO BID [facility] Last Admin: 08/20/19 22:08 Dose: Not Given Cholestyramine Resin (Questran Light Packet -) 4 gm PO BID [facility] Last Admin: 08/20/19 22:11 Dose: Not Given Clopidogrel Bisulfate (Plavix -) 75 mg PO DAILY [facility] Last Admin: 08/20/19 10:24 Dose: 75 mg Ferrous Sulfate (Feosol -) 325 mg PO BIDWM [facility] Last Admin: 08/21/19 08:26 Dose: 325 mg Sodium Chloride (Normal Saline -) 250 mls @ 3,000 mls/hr IV PRN PRN PRN Reason: Hypotension during Dialysis Stop: 08/17/19 17:58 Insulin Aspart (Novolog Vial Sliding Scale -) [facility] Protocol Last Admin: 08/21/19 06:22 Dose: Not Given Isosorbide Mononitrate (Imdur -) 30 mg PO DAILY [facility] Last Admin: 08/20/19 10:24 Dose: 30 mg Losartan Potassium (Cozaar -) 100 mg PO DAILY [facility] Last Admin: 08/20/19 10:23 Dose: 100 mg Nifedipine (Procardia Xl -) 120 mg PO DAILY [facility] Last Admin: 08/20/19 10:36 Dose: 120 mg Promethazine HCl (Phenergan Injection -) 12.5 mg IVPUSH Q6H PRN PRN Reason: NAUSEA Last Admin: 08/15/19 10:34 Dose: 12.5 mg Sevelamer Carbonate (Renvela -) 1,600 mg PO TIDCM [facility] Last Admin: 08/21/19 08:26 Dose: 1,600 mg - Objective Vital Signs: Vital Signs Temperature 98.6 F 08/21/19 08:32 Pulse Rate 80 08/21/19 08:32 Respiratory Rate 16 08/21/19 08:32 Blood Pressure 132/44 L 08/21/19 08:32 O2 Sat by Pulse Oximetry (%) 94 L 08/20/19 21:00 Labs: CBC, BMP 08/20/19 05:10 08/18/19 05:05 INR, PTT INR 0.92 (0.83-1.09) 08/14/19 03:26
[2019-08-21] MEDS ORDERED: CHOLESTYRAMINE/ASPARTAME 4 GM PACKET PO SCH (10:00)
[2019-08-21] MEDS: NIFEdipine E.R 60 MG TABLET (UD) PO SCH (10:42)
[2019-08-21] MEDS: CARVEDILOL 25 MG TABLET (FP) PO SCH (10:44)
[2019-08-21] MEDS: ASPIRIN 81 MG CHEWABLE TABLETS PO SCH (10:44)
[2019-08-21] MEDS: ISOSORBIDE MONONITRATE 30 MG TAB.SR.24H (FP) PO SCH (10:44)
[2019-08-21] MEDS: LOSARTAN POTASSIUM 50 MG TABLET (FP) PO SCH (10:45)
[2019-08-21] MEDS: CHOLESTYRAMINE/ASPARTAME 4 GM PACKET PO SCH (10:45)
[2019-08-21] MEDS: CLOPIDOGREL BISULFATE 75 MG TABLET (FP) PO SCH (10:45)
--- NOTE | 2019-08-21 10:59 | PN ---
Progress Note (short form) - Note Progress Note: Renal follow up for ESRD on HD Seen and examined at the bedside awake and alert offers no acute complaints no shortness of breath or chest pain Vital Signs Temperature 98.6 F 08/21/19 08:32 Pulse Rate 80 08/21/19 08:32 Respiratory Rate 16 08/21/19 08:32 Blood Pressure 132/44 L 08/21/19 08:32 O2 Sat by Pulse Oximetry (%) 94 L 08/20/19 21:00 Intake & Output 08/18/19 08/19/19 08/20/19 08/21/19 23:59 23:59 23:59 23:59 Intake Total 760 1065 250 150 Output Total 3400 Balance -2640 1065 250 150 NAD awake and alert neck supple RRR CTA, no rales or wheeze soft NT/ND no LE edema, clubbing or cyanosis CBC, BMP 08/20/19 05:10 08/18/19 05:05 Current Medications Acetaminophen (Tylenol -) 650 mg PO Q4H PRN PRN Reason: PAIN LEVEL 1-5 Last Admin: 08/20/19 14:22 Dose: 650 mg Acetaminophen (Tylenol -) 650 mg PO Q6H PRN PRN Reason: FEVER Amitriptyline HCl (Elavil -) 50 mg PO [facility] Last Admin: 08/20/19 22:11 Dose: 50 mg Aspirin (Asa -) 81 mg PO DAILY [facility] Last Admin: 08/21/19 10:44 Dose: 81 mg Atorvastatin Calcium (Lipitor -) 80 mg PO HS [facility] Last Admin: 08/20/19 22:11 Dose: 80 mg Calcium Acetate (Phoslo -) 667 mg PO TIDCM [facility] Last Admin: 08/21/19 08:26 Dose: 667 mg Carvedilol (Coreg -) 25 mg PO BID [facility] Last Admin: 08/21/19 10:44 Dose: 25 mg Cholestyramine Resin (Questran Light Packet -) 4 gm PO BID [facility] Last Admin: 08/21/19 10:45 Dose: Not Given Cholestyramine Resin (Questran Light Packet -) 4 gm PO BID [facility] Last Admin: 08/21/19 10:45 Dose: Not Given Clopidogrel Bisulfate (Plavix -) 75 mg PO DAILY [facility] Last Admin: 08/21/19 10:45 Dose: 75 mg Ferrous Sulfate (Feosol -) 325 mg PO BIDWM [facility] Last Admin: 08/21/19 08:26 Dose: 325 mg Sodium Chloride (Normal Saline -) 250 mls @ 3,000 mls/hr IV PRN PRN PRN Reason: Hypotension during Dialysis Stop: 08/17/19 17:58 Insulin Aspart (Novolog Vial Sliding Scale -) 1 vial SQ BIDAC [facility]; Protocol Last Admin: 08/21/19 06:22 Dose: Not Given Isosorbide Mononitrate (Imdur -) 30 mg PO DAILY [facility] Last Admin: 08/21/19 10:44 Dose: 30 mg Losartan Potassium (Cozaar -) 100 mg PO DAILY [facility] Last Admin: 08/21/19 10:45 Dose: 100 mg Nifedipine (Procardia Xl -) 120 mg PO DAILY [facility] Last Admin: 08/21/19 10:42 Dose: 120 mg Ondansetron HCl (Zofran -) 4 mg PO BID PRN PRN Reason: NAUSEA AND/OR VOMITING Promethazine HCl (Phenergan Injection -) 12.5 mg IVPUSH Q6H PRN PRN Reason: NAUSEA Last Admin: 08/15/19 10:34 Dose: 12.5 mg Sevelamer Carbonate (Renvela -) 1,600 mg PO TIDCM [facility] Last Admin: 08/21/19 08:26 Dose: 1,600 mg 84 year old woman with history of ESRD on HD (Monday and Monday), Hypertension, PVD, Smoker who presented from home with shortness of breath and found to have acute pulmonary congestion and hypertensive emergency. 1. acute pulmonary edema 2. hypertensive emergency 3. NSTEMI 4. ESRD on HD 5. LE pain 6. Anxiety s/p dialysis yesterday. no acute need for EXTERN today. Next treatment to be Monday as an outpatient. Continue medical mangemetn of NSTEMI/CAD Continue Losartan and Nifedpnie ER discharge planning as per primary Thank you Quentin Goyal DO
--- NOTE | 2019-08-21 11:01 | DS ---
Physical Examination Vital Signs: Vital Signs Temperature 98.6 F 08/21/19 08:32 Pulse Rate 80 08/21/19 08:32 Respiratory Rate 16 08/21/19 08:32 Blood Pressure 132/44 L 08/21/19 08:32 O2 Sat by Pulse Oximetry (%) 94 L 08/20/19 21:00 Findings/Remarks: events noted; pt in bed feeling well no c/o; walked to the bathroom. echo and stress test noted; per cardio: optimize medical therapy; ASA PLavix, statins, BP meds as ordered; OK to DC home on medical therapy d/w pt and cardiology dr Lorenzo pt was supposed to be DC home after she had the dialysis yesterday, but then she expressed the wish to stop dialysis and she asked for a palliative care consult for hospice eval; today she said she changed her mind again and wants to continue dialysis -d/w dr Goyal next HD should be 1/3 pt aware; d/w pt importance to be compliant with dialysis and meds as ordered she understands d/w pt and staff f/u needed; pt asked for xanax script; 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 No: Tenderness Renal/: Yes: Hematuria Musculoskeletal: No: Joint Stiffness, Joint Swelling Extremities: No: Cold, Cool, Cyanosis Edema: No Integumentary: No: Rash, Venous Stasis Changes Neurological: Yes: WNL, Alert, Oriented ...Motor Strength: WNL Psychiatric: Yes: WNL, Alert, Oriented. No: Agitated, Suicidal Ideation Labs: CBC, BMP 08/20/19 05:10 08/18/19 05:05 Discharge Summary Problems reviewed: Yes Reason For Visit: MISSED DIALYSIS, UNCONTROLLED HYPERTENSION, Current Active Problems Anxiety (Acute) Anxiety about blushing (Acute) COPD (chronic obstructive pulmonary disease) (Acute) Cigarette nicotine dependence (Acute) Diastolic CHF (Acute) Elevated troponin (Acute) Hyperlipidemia (Acute) Missed dialysis (Acute) NSTEMI (non-ST elevated myocardial infarction) (Acute) Procedures: Principal: 84 YOF ASHD PVD HTN CRF DM OA anxiety ESRD/HD admitted with ARF/CRF +CE uncontrolled HTN and EKG changes after missed dialysis Other Procedures: admitted to ICU; emergency dyalsis done Hospital Course: improved with above; seen by cardiology and renal; stress test c/w moderate inf ischemia; per cardio optimize medical treatment; pt to go home with PT Rehab and SNF at home - compliance d/w pt Condition: Stable - Instructions Diet, Activity, Other Instructions: f.u PCP renal and cardiology in 1-2 weeks after DC home RTER if worse or recurrent c/o take meds as advised and be compliant with dialysis as ordered Referrals: Angela Barahona [Primary Care Provider] - Delio Estrella MD [Staff Physician] - Quentin Goyal MD [Staff Physician] - Disposition: VNS/HOME HEALTH CARE - Home Medications Comprehensive Discharge Medication List: Ambulatory Orders Alprazolam [Xanax] 0.25 mg PO BID PRN 02/19/19 Aspirin [ASA -] 81 mg PO DAILY 02/19/19 Calcitriol [Calcitriol -] 0.25 mcg PO DAILY 02/19/19 Calcium Acetate 667 mg PO TID 02/19/19 Carvedilol [Coreg -] 6.25 mg PO BID 02/19/19 Acetaminophen [Tylenol .Regular Strength -] 650 mg PO Q6H PRN tablet 04/19/19 Ferrous Sulfate 325 mg PO BID 05/25/19 Nifedipine ER [Procardia XL -] 120 mg PO DAILY #180 tab.er.24 05/28/19 Amitriptyline HCl [Elavil -] 50 mg PO HS #30 tablet 06/07/19 Sevelamer Carbonate [Renvela -] 1,600 mg PO TIDCM tab 06/07/19 Cholestyramine/Aspartame [Questran Light Packet -] 4 gm PO BID packet 07/05/19 Ondansetron [Zofran -] 4 mg PO BID PRN tablet 07/12/19 Losartan Potassium [Cozaar -] 100 mg PO DAILY 08/09/19 Atorvastatin Ca [Lipitor] 80 mg PO HS #90 tablet 08/21/19 Clopidogrel Bisulfate [Plavix -] 75 mg PO DAILY #90 tablet 08/21/19 Isosorbide Mononitrate [Imdur -] 30 mg PO DAILY #90 tab.sr.24h 08/21/19
[2019-08-21] MEDS ORDERED: ALPRAZolam 0.25 MG TABLET PO ONE (12:00)
== END 2019-08-21 14:04 | disposition home health service (06) | DRG 682 ==
LOC: JER 02:30 → JERBED 05:38 → JICU 08:00 → J4S 08-15 18:30
PROVIDERS: ADMIT Internal Medicine; ATTEND Internal Medicine
PROC: 5A1D70Z Performance of Urinary Filtration, Intermittent, Less than 6 Hours Per Day (ICD-10-PCS; principal; 2019-08-16)
PROC: 5A1D70Z Performance of Urinary Filtration, Intermittent, Less than 6 Hours Per Day (ICD-10-PCS; 2019-08-18)
PROC: 5A1D70Z Performance of Urinary Filtration, Intermittent, Less than 6 Hours Per Day (ICD-10-PCS; 2019-08-20)
DX: N17.9 Acute kidney failure, unspecified (principal); I50.33 Acute on chronic diastolic (congestive) heart failure; J96.01 Acute respiratory failure with hypoxia; I24.8 Other forms of acute ischemic heart disease; I13.2 Hypertensive heart and chronic kidney disease with heart failure and with stage 5 chronic kidney disease, or end stage renal disease; J81.1 Chronic pulmonary edema; I16.0 Hypertensive urgency; N18.6 End stage renal disease; J44.9 Chronic obstructive pulmonary disease, unspecified; E83.51 Hypocalcemia; E11.22 Type 2 diabetes mellitus with diabetic chronic kidney disease; Z99.2 Dependence on renal dialysis; I25.10 Atherosclerotic heart disease of native coronary artery without angina pectoris; F41.9 Anxiety disorder, unspecified; D63.8 Anemia in other chronic diseases classified elsewhere; Z87.891 Personal history of nicotine dependence; E11.51 Type 2 diabetes mellitus with diabetic peripheral angiopathy without gangrene; Z89.421 Acquired absence of other right toe(s); F17.210 Nicotine dependence, cigarettes, uncomplicated; Z88.0 Allergy status to penicillin; Z95.828 Presence of other vascular implants and grafts
CPT/HCPCS: 36415; 71045-TC-FY; 78452-TC; 80048; 80053; 82550; 82553; 82962; 83735; 83880; 84100; 84484; 85025; 85027; 85610; 85730; 86803; 87040; 87340; 87804; 93005; 93010; 93017; 93306-TC; 93970-TC; 99285-25; A9502; J0885; J1644; J2785

== ENCOUNTER 2019-08-24 08:18 | Inpatient (IN) | payer OTHER ==
[2019-08-24] MEDS ORDERED: ACETAMINOPHEN 1000 MG/100 ML VIAL (NON FORMULARY) IVPB ONE ×2 (10:16→15:52)
[2019-08-24] MEDS ORDERED: ACETAMINOPHEN INJECTION 100 ML IVPB ONE ×2 (10:18→16:01)
[2019-08-24] MEDS ORDERED: CLINDAMYCIN IVPB 300 MG in DEXTROSE 5%-WATER - 48 ML IVPB ONE (10:22)
[2019-08-24] MEDS ORDERED: CLINDAMYCIN PHOSPHATE 600 MG/4 ML VIAL ONE (10:42)
--- NOTE | 2019-08-24 11:06 | PDOC ---
Documentation entered by Viviana Whyte SCRIBE, acting as scribe for Sj Paris MD. Sj Paris MD: This documentation has been prepared by the Pato box Brenda, SCRIBE, under my direction and personally reviewed by me in its entirety. I confirm that the documentation accurately reflects all work, treatment, procedures, and medical decision making performed by me. Attending Attestation - Resident Resident Name: Oswaldo Mathis - ED Attending Attestation I have performed the following: I have examined & evaluated the patient, The case was reviewed & discussed with the resident, I agree w/resident's findings & plan, Exceptions are as noted - HPI HPI: 08/24/19 11:03 84-year-old female with history of end-stage renal disease on hemodialysis, well -known to this MD presents with worsening pain and erythema to the right upper extremity. Patient was recently diagnosed with thrombophlebitis of the right forearm related to previous IV catheters. Patient denies nausea/vomiting/ shortness of breath. - Physicial Exam PE: 08/24/19 11:04 Patient is awake and alert, frail appearing, no distress, vital signs are noted. Normocephalic and atraumatic CTA RRR right forearm: Extensive well demarcated erythema extending beyond previously noted markings, approximately 10 to 12 cm in length, with a central nidus consistent with cellulitis. Neurovascularly intact distally. - Medical Decision Making 08/24/19 11:06 84-year-old female with multiple comorbidities, history of end-stage renal disease on hemodialysis presents with worsening cellulitis related to thrombophlebitis likely caused by IV catheters Not effectively controlled by p.o. doxycycline prescribed at an urgent care center.. Will obtain blood cultures. Will administer clindamycin given patient is vank allergic. Will admit. 08/24/19 11:08
[2019-08-24 11:11] LABS: BASO % 0.6 % (0-2.0); EOS % 2.2 % (0-4.5); HEMATOCRIT 28.8 % (32.4-45.2); HEMOGLOBIN 9.3 GM/dL (10.7-15.3); LYMPH % 9.6 % (8-40); MCH 30.8 pg (25.7-33.7); MCHC 32.4 g/dl (32.0-36.0); MEAN CELL VOLUME 94.9 fl (80-96); MEAN PLT VOLUME 8.7 fl (7.5-11.1); MONO % 6.9 % (3.8-10.2); NEUT % 80.7 % (42.8-82.8); PLATELET COUNT 399 K/MM3 (134-434); RBC 3.03 M/mm3 (3.60-5.2); RDW 15.4 % (11.6-15.6); WHITE BLOOD COUNT 11.6 K/mm3 (4.0-10.0)
[2019-08-24] MEDS ORDERED: LINEZOLID 600 MG PREMIX BAG 600 MG in PREMIX 300 IV ONE (11:21)
[2019-08-24 11:24] LABS: INR 1.12 (0.83-1.09); PROTHROMBIN TIME (PATIENT) 13.2 SEC (9.7-13.0)
--- NOTE | 2019-08-24 11:34 | PDOC ---
History of Present Illness - General Chief Complaint: Weakness Stated Complaint: DIALYSIS Time Seen by Provider: 08/24/19 09:36 History Source: Patient Exam Limitations: No Limitations - History of Present Illness Initial Comments: 08/24/19 11:13 84F with a PMH of HTN, ESRD on HD Monday (M, F) diabetes, anemia, anxiety, 64 pack-year smoker, who presents to the ER with complaints of R arm lesion and needing dialysis. The patient states that she "may" have received dialysis this week. She states that when she was discharged from our facility on 08/21/2019, she had an IV placed that became infected. She went to [facility] and had an evaluation including US and prescribed antibiotics which she has not taken yet. She denies fever, chills, nausea, vomiting, CP, SOB, abdominal pain, dysuria, cough, numbness, tingling, and weakness. Past History - Past Medical History Allergies/Adverse Reactions: Allergies Allergy/AdvReac Type Severity Reaction Status Date / Time iodine Allergy Rash Verified 08/24/19 08:41 penicillin V Allergy Verified 08/24/19 08:41 shellfish derived Allergy Rash Verified 08/24/19 08:41 vancomycin Allergy Verified 08/24/19 08:41 azithromycin AdvReac Verified 08/24/19 08:41 Home Medications: Ambulatory Orders Alprazolam [Xanax] 0.25 mg PO BID PRN 02/19/19 Aspirin [ASA -] 81 mg PO DAILY 02/19/19 Calcitriol [Calcitriol -] 0.25 mcg PO DAILY 02/19/19 Calcium Acetate 667 mg PO TID 02/19/19 Carvedilol [Coreg -] 6.25 mg PO BID 02/19/19 Acetaminophen [Tylenol .Regular Strength -] 650 mg PO Q6H PRN tablet 04/19/19 Ferrous Sulfate 325 mg PO BID 05/25/19 Nifedipine ER [Procardia XL -] 120 mg PO DAILY #180 tab.er.24 05/28/19 Amitriptyline HCl [Elavil -] 50 mg PO HS #30 tablet 06/07/19 Sevelamer Carbonate [Renvela -] 1,600 mg PO TIDCM tab 06/07/19 Cholestyramine/Aspartame [Questran Light Packet -] 4 gm PO BID packet 07/05/19 Ondansetron [Zofran -] 4 mg PO BID PRN tablet 07/12/19 Losartan Potassium [Cozaar -] 100 mg PO DAILY 08/09/19 Atorvastatin Ca [Lipitor] 80 mg PO HS #90 tablet 08/21/19 Clopidogrel Bisulfate [Plavix -] 75 mg PO DAILY #90 tablet 08/21/19 Isosorbide Mononitrate [Imdur -] 30 mg PO DAILY #90 tab.sr.24h 08/21/19 Anemia: Yes Asthma: Yes Cancer: No Cardiac Disorders: Yes (PAD,CAD, PVD) CVA: No COPD: Yes CHF: No DVT: No Dementia: No Diabetes: Yes Dialysis: Yes (m,w,f) GI Disorders: Yes (chronic diarrhea) Disorders: No HTN: Yes Hypercholesterolemia: Yes Liver Disease: No Seizures: No Thyroid Disease: No - Surgical History Abdominal Surgery: No Appendectomy: No Cardiac Surgery: Yes (FEMORAL BYPASS) Cholecystectomy: Yes Lung Surgery: No Neurologic Surgery: No Orthopedic Surgery: Yes (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) - Immunization History Td Vaccination: Yes TDAP Vaccination: Yes Immunization Up to Date: Yes - Psycho Social/Smoking Cessation Hx Smoking Status: Yes Smoking History: Former smoker Have you smoked in the past 12 months: No Number of Cigarettes Smoked Daily: 30 If you are a former smoker, when did you quit?: 08/10/2012 Cigars Per Day: 30 Information on smoking cessation initiated: No 'Breaking Loose' booklet given: 06/28/19 Hx Alcohol Use: No Drug/Substance Use Hx: No Substance Use Type: None Hx Substance Use Treatment: No Review of Systems - Review of Systems Able to Perform ROS?: Yes Comments:: 08/24/19 12:06 GENERAL/CONSTITUTIONAL: No fever or chills. No weakness. HEAD, EYES, EARS, NOSE AND THROAT: No change in vision. No ear pain or discharge. No sore throat. CARDIOVASCULAR: No chest pain, palpitations, or lightheadedness. RESPIRATORY: No cough, wheezing, shortness of breath, or hemoptysis. GASTROINTESTINAL: No abdominal pain, nausea, vomiting, diarrhea, or constipation. GENITOURINARY: No dysuria, frequency, hematuria, or change in urination. MUSCULOSKELETAL: No joint or muscle swelling or pain. No neck or back pain. SKIN: + for rash and possible abscess in RUE. NEUROLOGIC: No headache, numbness, tingling, focal weakness, loss of consciousness, or change in strength/sensation. Is the patient limited Taiwanese proficient: No *Physical Exam - Vital Signs Last Vital Signs Temp Pulse Resp BP Pulse Ox 97.7 F 78 16 159/70 100 08/24/19 08:20 08/24/19 08:20 08/24/19 08:20 08/24/19 08:20 08/24/19 08:20 - Physical Exam 08/24/19 12:10 GENERAL: Well developed, well nourished. Awake and alert. No acute distress. HEENT: Normocephalic, atraumatic. Hearing grossly normal. Moist mucous membranes. PERRLA, EOMI. No conjunctival pallor. Sclera are non-icteric. NECK: Supple. Full ROM. No JVD. CARDIOVASCULAR: Regular rate and rhythm. No murmurs, rubs, or gallops. PULMONARY: No evidence of respiratory distress. Lungs clear to auscultation bilaterally. No wheezing, rales or rhonchi. ABDOMINAL: Soft. Non-tender. Non-distended. No rebound or guarding. GENITOURINARY: No CVA tenderness bilaterally. MUSCULOSKELETAL: Port on R upper anterior chest. Normal range of motion at all joints. No bony deformities or tenderness. EXTREMITIES: No cyanosis. No clubbing. No edema. No calf tenderness or swelling. SKIN: 1cm fluctuance with diffuse redness and rash spreading past prior delineated lines on R forearm. Otherwise, warm and dry. Normal capillary refill. No rashes. No jaundice. NEUROLOGICAL: Alert, awake, appropriate. Cranial nerves 2-12 grossly intact. Normal speech. Gait is normal without ataxia. PSYCHIATRIC: Cooperative. Good eye contact. Appropriate mood and affect. ED Treatment Course - LABORATORY CBC & Chemistry Diagram: 08/24/19 10:30 08/24/19 10:30 - Medications Given in the ED: ED Medications Discontinued Medications Generic Name Dose Route Start Last Admin Trade Name Freq PRN Reason Stop Dose Admin Acetaminophen 1,000 mg 08/24/19 10:16 08/24/19 10:22 Ofirmev Injection - IVPB 08/24/19 10:17 1,000 mg ONCE ONE Administration Medical Decision Making - Medical Decision Making 08/24/19 12:12 84F with MMP who presents to the ER with worsening cellulitis with possible abscess as well as requirement for dialysis. Will give IV abx to pt, which was d /w pharmacy. Will obtain RUE US to evaluate rash and possible abscess. Will admit. 08/24/19 13:11 US shows 3.5cm x 1 cm abscess on R forearm. Will page Dr. Barahona. 08/24/19 13:[address] Barahona for admission. Discharge - Discharge Information Problems reviewed: Yes Clinical Impression/Diagnosis: Cellulitis of right upper extremity Condition: Guarded - Admission Yes - Follow up/Referral Referrals: Angela Barahona [Primary Care Provider] - - Patient Discharge Instructions - Post Discharge Activity
[2019-08-24 11:37] LABS: ALBUMIN 2.8 g/dl (3.4-5.0); BILIRUBIN,TOTAL 0.2 mg/dL (0.2-1); BLOOD UREA NITROGEN 49.8 mg/dL (7-18); CALCIUM 7.9 mg/dL (8.5-10.1); POTASSIUM 4.3 mmol/L (3.5-5.1); TOT PROT 6.7 g/dl (6.4-8.2)
[2019-08-24] MEDS ORDERED: morphine CARPU-JECT 4 MG/1 ML DISP.SYRIN IVPUSH ONE (15:53)
[2019-08-24] MEDS ORDERED: MORPHINE SULFATE 2 MG/ML VIAL ONE (16:00)
[2019-08-24] MEDS: AMITRIPTYLINE HCL 25 MG TABLET PO SCH (21:57)
[2019-08-24] MEDS: FERROUS SO4 325 MG TABLET (FP) PO SCH (21:58)
[2019-08-24] MEDS: CARVEDILOL 6.25 MG TABLET (FP) PO SCH (21:58)
[2019-08-24] MEDS: ATORVASTATIN CA 80 MG TABLET (FP) PO SCH (21:58)
[2019-08-24] MEDS: CHOLESTYRAMINE/ASPARTAME 4 GM PACKET PO SCH (21:58)
--- NOTE | 2019-08-24 23:13 | EKG ---
Test Reason : Blood Pressure : / mmHG Vent. Rate : 076 BPM Atrial Rate : 076 BPM P-R Int : 106 ms QRS Dur : 096 ms QT Int : 418 ms P-R-T Axes : 016 048 -75 degrees QTc Int : 470 ms SINUS RHYTHM WITH SHORT ID WITH PREMATURE ATRIAL COMPLEXES PROLONGED QT ABNORMAL ECG WHEN COMPARED WITH ECG OF 16-AUG-2019 13:05, PREMATURE ATRIAL COMPLEXES ARE NOW PRESENT T WAVE VARIATION Confirmed by JAZMÍN DC, AFSHAN ([id number]) on 08/24/2019 11:13:16 PM Referred By: Confirmed By:AFSHAN NOYOLA MD
[2019-08-24] MEDS: ONDANSETRON 4 MG TABLET PO PRN (23:34)
[2019-08-24] MEDS ORDERED: oxyCODONE HCL 5 MG TABLET PO PRN (23:50)
--- NOTE | 2019-08-25 06:54 | HP ---
Admitting History and Physical - Primary Care Physician PCP: Angela Barahona S - Admission Chief Complaint: RUE pain rash History of Present Illness: 84-year-old female with history of end-stage renal disease on hemodialysis, presents with worsening pain and erythema to the right upper extremity. Patient was recently admitted to with uncontrolled HTN Nonstemi after missed dialysis was DCd home 08/21 then on 08/23 afternoon (Monday around 4 pm) she called my office because she started to develop some RUE pain and rash, I advised her to go to ER or right away; she said she went to that Monday evening (08/23) and was diagnosed with thrombophlebitis of the right forearm related to previous IV catheters; she said she was prescribed po ATB but she did not take it; she went home Monday night, then today (monday) she had more arm pain and rash and came to ER; of note pt was supposed to go for dialysis Wednesday 08/23 in am but she did not go. Patient denies nausea/vomiting/shortness of breath or other c/o History Source: Patient Limitations to Obtaining History: No Limitations - Past Medical History Cardiovascular: Yes: HTN, Hyperlipdemia, Murmur, Other (PAD) Pulmonary: Yes: Asthma, COPD Hepatobiliary: Yes: Cholelithiasis, Choledocholithiasis Renal/: Yes: Renal Inusuff, Hemodialysis ...: No Heme/Onc: No: Anemia Infectious Disease: Yes: Other (history of osteomyelitis in the past) Endocrine: Yes: Diabetes Mellitus - Past Surgical History Past Surgical History: Yes: Amputation (1-st R toe amputation), Bypass (Right fem pop bypass) - Advance Directives Advance Directives: Yes: Health Care Proxy - Smoking History Smoking history: Former smoker Have you smoked in the past 12 months: No Aproximately how many cigarettes per day: 30 If you are a former smoker, when did you quit?: 08/10/2012 - Alcohol/Substance Use Hx Alcohol Use: No History of Substance Use: reports: None - Social History Usual Living Arrangement: Yes: Alone Do you think of yourself as: Straight/Heterosexual ADL: Independent 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, 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, 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 Travel: No Home Medications - Allergies Allergies/Adverse Reactions: Allergies Allergy/AdvReac Type Severity Reaction Status Date / Time iodine Allergy Rash Verified 08/24/19 08:41 penicillin V Allergy Verified 08/24/19 08:41 shellfish derived Allergy Rash Verified 08/24/19 08:41 vancomycin Allergy Verified 08/24/19 08:41 azithromycin AdvReac Verified 08/24/19 08:41 - Home Medications Home Medications: Ambulatory Orders Alprazolam [Xanax] 0.25 mg PO BID PRN 02/19/19 Aspirin [ASA -] 81 mg PO DAILY 02/19/19 Calcitriol [Calcitriol -] 0.25 mcg PO DAILY 02/19/19 Calcium Acetate 667 mg PO TID 02/19/19 Carvedilol [Coreg -] 6.25 mg PO BID 02/19/19 Acetaminophen [Tylenol .Regular Strength -] 650 mg PO Q6H PRN tablet 04/19/19 Ferrous Sulfate 325 mg PO BID 05/25/19 Nifedipine ER [Procardia XL -] 120 mg PO DAILY #180 tab.er.24 05/28/19 Amitriptyline HCl [Elavil -] 50 mg PO HS #30 tablet 06/07/19 Sevelamer Carbonate [Renvela -] 1,600 mg PO TIDCM tab 06/07/19 Cholestyramine/Aspartame [Questran Light Packet -] 4 gm PO BID packet 07/05/19 Ondansetron [Zofran -] 4 mg PO BID PRN tablet 07/12/19 Losartan Potassium [Cozaar -] 100 mg PO DAILY 08/09/19 Atorvastatin Ca [Lipitor] 80 mg PO HS #90 tablet 08/21/19 Clopidogrel Bisulfate [Plavix -] 75 mg PO DAILY #90 tablet 08/21/19 Isosorbide Mononitrate [Imdur -] 30 mg PO DAILY #90 tab.sr.24h 08/21/19 Family Medical History Family History: Unremarkable Review of Systems - Review of Systems Constitutional: reports: Chills, Fever, Loss of Appetite, Weakness (general). denies: Diaphoresis Eyes: denies: Blind Spots, Blurred Vision, Double Vision HENT: denies: Difficult Swallowing, Ear Pain, Epistaxis Neck: denies: Decreased ROM, Stiffness, Tenderness Cardiovascular: denies: Chest Pain, Edema, Palpitations, Shortness of Breath Respiratory: denies: Cough, SOB Gastrointestinal: denies: Abdominal Pain, Diarrhea, Rectal Bleeding, Vomiting Genitourinary: denies: Dysuria, Flank Pain Musculoskeletal: reports: Other (R Forearm pain rash and swelling). denies: Back Pain Integumentary: reports: Rash (see above). denies: Blister, Bruising Neurological: denies: Change in LOC, Change in Speech, Confusion, Dizziness, Seizure, Syncope Psychiatric: reports: Altered Sleep Pattern, Anxiety. denies: Suicidal Physical Examination Vital Signs: Vital Signs Temperature 99.9 F H 08/25/19 02:04 Pulse Rate 87 08/25/19 02:04 Respiratory Rate 08/25/19 04:00 Blood Pressure 183/79 H 08/25/19 02:04 O2 Sat by Pulse Oximetry (%) 94 L 08/25/19 04:00 Constitutional: Yes: No Distress, Calm Eyes: Yes: Conjunctiva Clear HENT: Yes: Atraumatic Neck: Yes: Supple Cardiovascular: Yes: Regular Rate and Rhythm Respiratory: Yes: CTA Bilaterally Gastrointestinal: Yes: Soft. No: Tenderness Renal/: No: Hematuria Musculoskeletal: No: Joint Stiffness, Joint Swelling Extremities: Yes: Other (R forearm thrombophlebitis / abscess rash tender, dressed) Edema: No Integumentary: No: Pressure Ulcer, Venous Stasis Changes Neurological: Yes: WNL, Alert, Oriented ...Motor Strength: WNL Psychiatric: Yes: WNL, Alert, Oriented. No: Agitated, Suicidal Ideation Labs: CBC, BMP 08/24/19 10:30 08/24/19 10:30 Imaging - Results Other: Report Reviewed Assessment/Plan 84-year-old female with history of end-stage renal disease on hemodialysis, presents with worsening pain and erythema to the right upper extremity site catheter related thrombophlebitis, sepsis uncontrolled HTN ESRD / HD missed dialysis admit; blood cx ID and surgery eval; HD per renal prognosis guarded
[2019-08-25] MEDS ORDERED: CLINDAMYCIN 600MG PREMIX IVPB 600 MG/50 ML BAG IVPB ONE (07:15)
[2019-08-25 07:33] LABS: BASO % 0.4 % (0-2.0); EOS % 1.9 % (0-4.5); HEMATOCRIT 28.7 % (32.4-45.2); HEMOGLOBIN 9.5 GM/dL (10.7-15.3); LYMPH % 10.8 % (8-40); MCH 31.2 pg (25.7-33.7); MCHC 33.1 g/dl (32.0-36.0); MEAN CELL VOLUME 94.1 fl (80-96); MEAN PLT VOLUME 8.7 fl (7.5-11.1); MONO % 9.8 % (3.8-10.2); NEUT % 77.1 % (42.8-82.8); PLATELET COUNT 415 K/MM3 (134-434); RBC 3.05 M/mm3 (3.60-5.2); RDW 15.5 % (11.6-15.6); WHITE BLOOD COUNT 11.7 K/mm3 (4.0-10.0)
[2019-08-25 08:05] LABS: ALBUMIN 2.4 g/dl (3.4-5.0); BILIRUBIN,TOTAL 0.3 mg/dL (0.2-1); BLOOD UREA NITROGEN 60.7 mg/dL (7-18); CALCIUM 7.6 mg/dL (8.5-10.1); POTASSIUM 4.7 mmol/L (3.5-5.1); TOT PROT 6.4 g/dl (6.4-8.2)
[2019-08-25] MEDS: SEVELAMER CARBONATE 800 MG TAB (FP) PO SCH ×3 (08:55→17:10)
[2019-08-25] MEDS: CALCIUM ACETATE 667 MG CAPSULE (FP) PO SCH ×3 (08:55→17:08)
[2019-08-25] MEDS: NIFEdipine E.R 60 MG TABLET PO SCH (10:12)
[2019-08-25] MEDS: ISOSORBIDE MONONITRATE 30 MG TAB.SR.24H (FP) PO SCH (10:12)
[2019-08-25] MEDS: CARVEDILOL 6.25 MG TABLET (FP) PO SCH ×2 (10:13→21:16)
[2019-08-25] MEDS: LOSARTAN POTASSIUM 50 MG TABLET (FP) PO SCH (10:13)
[2019-08-25] MEDS: CLOPIDOGREL BISULFATE 75 MG TABLET (FP) PO SCH (10:14)
[2019-08-25] MEDS: FERROUS SO4 325 MG TABLET (FP) PO SCH ×2 (10:14→21:52)
[2019-08-25] MEDS: ASPIRIN 81 MG CHEWABLE TABLETS PO SCH (10:14)
[2019-08-25] MEDS: CALCITRIOL 0.25 MCG CAPSULE (FP) PO SCH (10:14)
[2019-08-25] MEDS ORDERED: LIDOCAINE 1%-EPI 1:100,000 30 ML MDV IJ ONE (10:15)
--- NOTE | 2019-08-25 10:16 | CONSULT ---
Consult - text type - Consultation Consultation Note: Renal consult for ESRD on HD This is a 84 year old woman with history of ESRD no HD (MF), DM, hypertension, CAD with recent NSTEMI, PVD, current smoker presents from home with boil on her right arm. She denies any drainage, fever or chills. She missed her last dialysis on Monday. Denies any chest pain, shortness of breath, N/V/D. Blood cultures positive for gram positive cocci. PMHx: as above Allergies: As listed in EMR Family hx: NC Social Hx: + Tobacco ROS: as per HPI, all other pertinent ros negative Home Medications Medication Instructions Recorded Alprazolam [Xanax] 0.25 mg PO BID PRN 02/19/19 Aspirin [ASA -] 81 mg PO DAILY 02/19/19 Calcitriol [Calcitriol -] 0.25 mcg PO DAILY 02/19/19 Calcium Acetate 667 mg PO TID 02/19/19 Carvedilol [Coreg -] 6.25 mg PO BID 02/19/19 Acetaminophen [Tylenol .Regular 650 mg PO Q6H PRN tablet 04/19/19 Strength -] Ferrous Sulfate 325 mg PO BID 05/25/19 Nifedipine ER [Procardia XL -] 120 mg PO DAILY #180 tab.er.24 05/28/19 Amitriptyline HCl [Elavil -] 50 mg PO HS #30 tablet 06/07/19 Sevelamer Carbonate [Renvela -] 1,600 mg PO TIDCM tab 06/07/19 Cholestyramine/Aspartame [Questran 4 gm PO BID packet 07/05/19 Light Packet -] Ondansetron [Zofran -] 4 mg PO BID PRN tablet 07/12/19 Losartan Potassium [Cozaar -] 100 mg PO DAILY 08/09/19 Atorvastatin Ca [Lipitor] 80 mg PO HS #90 tablet 08/21/19 Clopidogrel Bisulfate [Plavix -] 75 mg PO DAILY #90 tablet 08/21/19 Isosorbide Mononitrate [Imdur -] 30 mg PO DAILY #90 tab.sr.24h 08/21/19 Vital Signs Temperature 100.1 F H 08/25/19 06:06 Pulse Rate 75 08/25/19 06:06 Respiratory Rate 20 08/25/19 06:06 Blood Pressure 157/71 08/25/19 06:06 O2 Sat by Pulse Oximetry (%) 94 L 08/25/19 04:00 NAD awake and alert neck supple RRR CTA soft NT/ND no LE edema tunneled HD catheter in place right arm abcess with surrounding erythema CBC, BMP 08/25/19 06:30 08/25/19 06:30 Current Medications Acetaminophen (Tylenol -) 650 mg PO Q6H PRN PRN Reason: FEVER Alprazolam (Xanax -) 0.25 mg PO BID PRN PRN Reason: ANXIETY Amitriptyline HCl (Elavil -) 50 mg PO HS [facility] Last Admin: 08/24/19 21:57 Dose: 50 mg Aspirin (Asa -) 81 mg PO DAILY [facility] Atorvastatin Calcium (Lipitor -) 80 mg PO HS [facility] Last Admin: 08/24/19 21:58 Dose: 80 mg Calcitriol (Rocaltrol -) 0.25 mcg PO DAILY [facility] Calcium Acetate (Phoslo -) 667 mg PO TIDCM [facility] Last Admin: 08/25/19 08:55 Dose: 667 mg Carvedilol (Coreg -) 6.25 mg PO BID [facility] Last Admin: 08/24/19 21:58 Dose: 6.25 mg Cholestyramine Resin (Questran Light Packet -) 4 gm PO BID [facility] Last Admin: 08/24/19 21:58 Dose: Not Given Clopidogrel Bisulfate (Plavix -) 75 mg PO DAILY [facility] Ferrous Sulfate (Feosol -) 325 mg PO BID [facility] Last Admin: 08/24/19 21:58 Dose: 325 mg Isosorbide Mononitrate (Imdur -) 30 mg PO DAILY [facility] Lidocaine/Epinephrine (Lidocaine 1%-Epi 1:100,000) 10 ml IJ ONCE ONE Stop: 08/25/19 10:16 Losartan Potassium (Cozaar -) 100 mg PO DAILY [facility] Nifedipine (Procardia Xl -) 120 mg PO DAILY [facility] Ondansetron HCl (Zofran -) 4 mg PO BID PRN PRN Reason: NAUSEA AND/OR VOMITING Last Admin: 08/24/19 23:34 Dose: 4 mg Oxycodone HCl (Roxicodone -) 5 mg PO Q6H PRN PRN Reason: PAIN LEVEL 6-10 Last Admin: 08/24/19 23:57 Dose: 5 mg Sevelamer Carbonate (Renvela -) 1,600 mg PO TIDCM [facility] Last Admin: 08/25/19 08:55 Dose: 1,600 mg 84 year old woman with history of ESRD no HD (), DM, hypertension, CAD with recent NSTEMI, PVD, current smoker presents from home with boil on her right arm. 1. ESRD on HD 2. Abcess on arm 3. Gram positive bacteremia 4. Hypertensoin 5. CAD will arrange for dialysis tomorrow morning. Renal diet, 1.2L fluid restriction. Blood cultures positive, continue IV clindamycin given vancomycin allergy. ID consult requested. Continue Losartan, Nifedipine for hypertension Thank you Quentin Goyal DO
[2019-08-25] MEDS ORDERED: CLINDAMYCIN HCL 150 MG CAPSULE (FP) PO ONE (10:30)
[2019-08-25] MEDS ORDERED: PT OWN MED DRAWER 7, Y5N ONE (10:30)
[2019-08-25] MEDS: CHOLESTYRAMINE/ASPARTAME 4 GM PACKET PO SCH ×2 (10:54→21:16)
[2019-08-25] MEDS: ONDANSETRON 4 MG TABLET PO PRN (11:05)
--- NOTE | 2019-08-25 12:46 | CON.ID ---
Consult - History of Present Illness History of Present Illness: 84 y.o. female with PMH of ESRD on HD, CAD, NSTEMI, DM, COPD, active smoker, HTN , PAD s/p Rt fem-pop bypass, Rt toe amp, HTN, HLD presents with complaints of worsening Rt forearm erythema/edema/and tenderness that developed several days ago initially as a thrombophlebitis. She was seen at an urgent care center and had not yet taken the doxycycline she was prescribed. Pt states her last HD session was on Monday and she missed her Monday session. In the ER pt was noted to have temp of 99.9F and wbc of 11.6K. Blood cultures are +GPC , isolate pending. Rt forearm lesion had been drained. She denies current SOB, CP, Abd pain, rash. She was started on IV antibiotics but currently without IV access. - History Source History Provided By: Patient Limitations to Obtaining History: No Limitations - Past Medical History Cardio/Vascular: Yes: HTN, Hyperlipdemia, Murmur, Other (PAD) Pulmonary: Yes: Asthma, COPD Hepatobiliary: Yes: Cholelithiasis, Choledocholithiasis Renal/: Yes: Renal Inusuff, Hemodialysis ...: No Infectious Disease: Yes: Other (history of osteomyelitis in the past) Endocrine: Yes: Diabetes Mellitus - Past Surgical History Past Surgical History: Yes: Amputation (1-st R toe amputation), Bypass (Right fem pop bypass) - Alcohol/Substance Use Hx Alcohol Use: No History of Substance Use: reports: None - Smoking History Smoking history: Former smoker Have you smoked in the past 12 months: No Aproximately how many cigarettes per day: 30 If you are a former smoker, when did you quit?: 08/10/2012 - Social History Usual Living Arrangement: Alone ADL: Support Services 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, 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, 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 Travel: No Home Medications - Allergies Allergies/Adverse Reactions: Allergies Allergy/AdvReac Type Severity Reaction Status Date / Time iodine Allergy Rash Verified 08/24/19 08:41 penicillin V Allergy Verified 08/24/19 08:41 shellfish derived Allergy Rash Verified 08/24/19 08:41 vancomycin Allergy Verified 08/24/19 08:41 azithromycin AdvReac Verified 08/24/19 08:41 - Home Medications Home Medications: Ambulatory Orders Alprazolam [Xanax] 0.25 mg PO BID PRN 02/19/19 Aspirin [ASA -] 81 mg PO DAILY 02/19/19 Calcitriol [Calcitriol -] 0.25 mcg PO DAILY 02/19/19 Calcium Acetate 667 mg PO TID 02/19/19 Carvedilol [Coreg -] 6.25 mg PO BID 02/19/19 Acetaminophen [Tylenol .Regular Strength -] 650 mg PO Q6H PRN tablet 04/19/19 Ferrous Sulfate 325 mg PO BID 05/25/19 Nifedipine ER [Procardia XL -] 120 mg PO DAILY #180 tab.er.24 05/28/19 Amitriptyline HCl [Elavil -] 50 mg PO HS #30 tablet 06/07/19 Sevelamer Carbonate [Renvela -] 1,600 mg PO TIDCM tab 06/07/19 Cholestyramine/Aspartame [Questran Light Packet -] 4 gm PO BID packet 07/05/19 Ondansetron [Zofran -] 4 mg PO BID PRN tablet 07/12/19 Losartan Potassium [Cozaar -] 100 mg PO DAILY 08/09/19 Atorvastatin Ca [Lipitor] 80 mg PO HS #90 tablet 08/21/19 Clopidogrel Bisulfate [Plavix -] 75 mg PO DAILY #90 tablet 08/21/19 Isosorbide Mononitrate [Imdur -] 30 mg PO DAILY #90 tab.sr.24h 08/21/19 Review of Systems - Review of Systems Constitutional: reports: Weakness. denies: No Symptoms, Chills, Diaphoresis, Fever, Lethargy, Loss of Appetite, Malaise, Night Sweats, Unintentional Wgt. Loss, Other Eyes: reports: No Symptoms. denies: Blind Spots, Blurred Vision, Double Vision , Eye Pain, Floaters, Photophobia, Recent Change in Vision, Other HENT: reports: No Symptoms. denies: Difficult Swallowing, Ear Discharge, Ear Pain, Epistaxis, Gingival Bleeding, Hearing Loss, Mouth Swelling, Nasal Congestion, Ocular Prosthesis, Throat Pain, Toothache, Ringing in Ears, Other Neck: reports: No Symptoms. denies: Decreased ROM, Lumps, Pain on Movement, Stiffness, Swollen Glands, Tenderness, Other Cardiovascular: reports: No Symptoms. denies: Chest Pain, Edema, Palpitations, Shortness of Breath, Other Respiratory: reports: No Symptoms. denies: Cough, Exercise Intolerance, Hemoptysis, Orthopnea, PND, Snoring, SOB, SOB on Exertion, Wheezing, Other Gastrointestinal: reports: No Symptoms. denies: Abdominal Pain, Bloating, Constipation, Diarrhea, Dysphagia, Indigestion, Melena, Nausea, Rectal Bleeding , Vomiting, Vomiting Blood, Other Genitourinary: reports: No Symptoms. denies: Burning, Discharge, Dysuria, Flank Pain, Frequency, Hematuria, Incontinence, Lesions, Menses, Pain, Testicular Mass, Testicular Pain, Testicular Swelling, Urgency, Vaginal Bleeding , Other Musculoskeletal: reports: Extremity Pain (Rt forearm) Integumentary: reports: Erythema Neurological: reports: No Symptoms. denies: Change in LOC, Change in Speech, Confusion, Dizziness, Headache, Incoordination, Numbness, Parasthesia, Pre- Existing Deficit, Seizure, Syncope, Tremors, Unsteady Gait, Weakness, Other Endocrine: reports: No Symptoms. denies: Excessive Sweating, Flushing, Increased Hunger, Increased Thirst, Intolerance to Cold, Intolerance to Heat, Unexplained Weight Gain, Unexplained Weight Loss, Other Hematology/Lymphatic: reports: No Symptoms. denies: Easily Bruised, Excessive Bleeding, Swollen Glands, Other Psychiatric: reports: No Symptoms. denies: Altered Sleep Pattern, Anxiety, Depression, Hallucinations, Panic, Paranoia, Suicidal, Other Physical Exam Vital Signs: Vital Signs Temperature 100.1 F H 08/25/19 10:00 Pulse Rate 75 08/25/19 10:00 Respiratory Rate 20 08/25/19 10:00 Blood Pressure 157/71 08/25/19 10:00 O2 Sat by Pulse Oximetry (%) 94 L 08/25/19 09:00 Constitutional: Yes: No Distress, Calm Eyes: Yes: Conjunctiva Clear HENT: Yes: Atraumatic Neck: Yes: Supple Cardiovascular: Yes: Regular Rate and Rhythm Respiratory: Yes: Regular Gastrointestinal: Yes: Normal Bowel Sounds, Soft Renal/: Yes: Anuria Musculoskeletal: Yes: WNL Extremities: Yes: Amputation Integumentary: Yes: Erythema (Rt forearm erythema/tenderness - dressing intact) Wound/Incision: Yes: Dressing Dry and Intact Neurological: Yes: Alert Labs: CBC, BMP 08/25/19 06:30 08/25/19 06:30 Microbiology 08/24/19 10:30 Blood - Peripheral Venous Blood Culture - Preliminary Pending Organism 08/24/19 10:30 Blood - Peripheral Venous Blood Culture - Preliminary Pending Organism Pending Organism#2 Imaging - Results Ultrasound: Report Reviewed Problem List - Problems (1) Cellulitis of right upper extremity Code(s): L03.113 - CELLULITIS OF RIGHT UPPER LIMB (2) Anemia Code(s): D64.9 - ANEMIA, UNSPECIFIED Qualifiers: (3) Anxiety Code(s): F41.9 - ANXIETY DISORDER, UNSPECIFIED (4) CAD (coronary artery disease) Code(s): I25.10 - ATHSCL HEART DISEASE OF [place] CORONARY ARTERY W/O ANG PCTRS Qualifiers: Coronary Disease-Associated Artery/Lesion type: [place] artery [place] vs. transplanted heart: [place] heart Associated angina: without angina Qualified Code(s): I25.10 - Atherosclerotic heart disease of [place] coronary artery without angina pectoris (5) COPD (chronic obstructive pulmonary disease) Code(s): J44.9 - CHRONIC OBSTRUCTIVE PULMONARY DISEASE, UNSPECIFIED Qualifiers: COPD type: unspecified COPD Qualified Code(s): J44.9 - Chronic obstructive pulmonary disease, unspecified (6) Cigarette nicotine dependence Code(s): F17.210 - NICOTINE DEPENDENCE, CIGARETTES, UNCOMPLICATED (7) Diabetes mellitus Code(s): E11.9 - TYPE 2 DIABETES MELLITUS WITHOUT COMPLICATIONS Qualifiers: Diabetes mellitus type: type 2 Diabetes mellitus complication status: with kidney complications Diabetes mellitus complication detail: with chronic kidney disease Chronic kidney disease stage: on chronic dialysis (8) ESRD (end stage renal disease) on dialysis Code(s): N18.6 - END STAGE RENAL DISEASE; Z99.2 - DEPENDENCE ON RENAL DIALYSIS (9) HTN (hypertension) Code(s): I10 - ESSENTIAL (PRIMARY) HYPERTENSION Qualifiers: Hypertension type: unspecified Qualified Code(s): I10 - Essential (primary ) hypertension (10) Hx of antibiotic allergy Code(s): Z88.1 - ALLERGY STATUS TO OTHER ANTIBIOTIC AGENTS STATUS (11) Hyperlipidemia Code(s): E78.5 - HYPERLIPIDEMIA, UNSPECIFIED Qualifiers: Hyperlipidemia type: pure hypercholesterolemia Qualified Code(s): E78.00 - Pure hypercholesterolemia, unspecified; E78.0 - Pure hypercholesterolemia (12) PAD (peripheral artery disease) Code(s): I73.9 - PERIPHERAL VASCULAR DISEASE, UNSPECIFIED (13) S/P femoropopliteal bypass surgery Code(s): Z95.828 - PRESENCE OF OTHER VASCULAR IMPLANTS AND GRAFTS Assessment/Plan 84 y.o. female with PMH of ESRD on HD, CAD, NSTEMI, DM, COPD, active smoker, HTN , PAD s/p Rt fem-pop bypass, Rt toe amp, HTN, HLD presents with complaints of worsening Rt forearm erythema/edema/and tenderness, low grade fever, mild leukocytosis with +blood cultures Gram positive bacteremia Rt forearm cellulitis/abscess s/p drainage ESRD on HD DM CAD COPD Nicotine dependence PAD HTN HLD -- Pt with multiple antibiotic allergies: PCN, Vancomycin, Azithromycin -- Start Daptomycin IV, then dose after each HD -- Check CPK level, monitor while on statin and Daptomycin together -- follow up blood culture results, repeat -- monitor temps/wbc trend -- wound care Will follow Thank you
[2019-08-25] MEDS: ALPRAZolam 0.25 MG TABLET PO PRN ×2 (13:27→23:02)
[2019-08-25] MEDS ORDERED: DAPTOMYCIN 300 MG in SODIUM CHLORIDE 50 ML IVPB ONE (14:00)
--- NOTE | 2019-08-25 14:06 | PN ---
Progress Note (short form) - Note Progress Note: surgery i&d of right forearm abscess. cultures sent. dry dressing placed. 3ml pus and necrotic tissue noted. Plan remove dressing tomorrow. ok to shower. bacitracin dressing daily.
[2019-08-25] MEDS ORDERED: SODIUM CHLORIDE 1,000 ML IV SCH (16:45)
--- NOTE | 2019-08-25 17:02 | CONSULT ---
Consultation: REQUESTING PROVIDER: Dr. Angela Barahona CONSULT REQUEST: ICU management . HISTORY OF PRESENT ILLNESS: 84 year old female with PMH of ESRD on HD (), DM, hypertension, CAD with recent NSTEMI, PVD, current smoker presents to the ED with complaints of a right abscess/boil on her forearm- patient states that she was discharged from the hospital on 08/20 and she started to notice that her right arm, where her IV site was located initially started out as being red and gradually got more swollen- she contacted her PCP who told her to go to [facility] where an ultrasound of her forearm was performed and she was prescribed antibiotics however she did not start taking them yet. she also us here needing dialysis- she cannot remember when she last received dialysis she thinks it may have been Monday ; she denies any fevers but does endorse having some chills. in the ED ultrasound of the forearm was done showing abscess v. boil- patient underwent an I and D with cultures sent and pending; ICU was called to evaluate as patients pressure was dripping with systolics in 80's (patient has only received 500 cc bolus thus far as she is a dialysis patient) patient received daptomycin x1 and is bactermic with gram + cocci in clusters in both bottles REVIEW OF SYSTEMS: CONSTITUTIONAL: Present: generalized weakness Absent: fever, chills, diaphoresis,, malaise, loss of appetite, weight change HEENT: Absent: rhinorrhea, nasal congestion, throat pain, throat swelling, difficulty swallowing, mouth swelling, ear pain, eye pain, visual changes CARDIOVASCULAR: Absent: chest pain, syncope, palpitations, irregular heart rate, lightheadedness , peripheral edema RESPIRATORY: Absent: cough, shortness of breath, dyspnea with exertion, orthopnea, wheezing, stridor, hemoptysis GASTROINTESTINAL: Absent: abdominal pain, abdominal distension, nausea, vomiting, diarrhea, constipation, melena, hematochezia GENITOURINARY: Absent: dysuria, frequency, urgency, hesitancy, hematuria, flank pain, genital pain MUSCULOSKELETAL: Absent: myalgia, arthralgia, joint swelling, back pain, neck pain SKIN: Present: right foreram abscess/ swelling / pain Absent: rash, itching, pallor HEMATOLOGIC/IMMUNOLOGIC: Absent: easy bleeding, easy bruising, lymphadenopathy, frequent infections ENDOCRINE: Absent: unexplained weight gain, unexplained weight loss, heat intolerance, cold intolerance NEUROLOGIC: Absent: headache, focal weakness or paresthesias, dizziness, unsteady gait, seizure, mental status changes, bladder or bowel incontinence PSYCHIATRIC: Absent: anxiety, depression, suicidal or homicidal ideation, hallucinations. PHYSICAL EXAMINATION Vital Signs - 24 hr 08/24/19 08/24/19 08/24/19 17:41 20:00 21:00 Temperature 99.1 F Pulse Rate Pulse Rate [ 74 Right Radial] Respiratory 20 20 Rate Blood Pressure Blood Pressure 155/64 [Left Arm] O2 Sat by Pulse 94 L 94 L 94 L Oximetry (%) 08/25/19 08/25/19 08/25/19 00:00 02:04 04:00 Temperature 99.9 F H Pulse Rate 87 Pulse Rate [ Right Radial] Respiratory 20 20 20 Rate Blood Pressure 183/79 H Blood Pressure [Left Arm] O2 Sat by Pulse 94 L 94 L Oximetry (%) 08/25/19 08/25/19 08/25/19 06:06 08:00 09:00 Temperature 100.1 F H Pulse Rate 75 Pulse Rate [ Right Radial] Respiratory 20 20 20 Rate Blood Pressure 157/71 Blood Pressure [Left Arm] O2 Sat by Pulse 94 L 94 L Oximetry (%) 08/25/19 08/25/19 08/25/19 10:00 12:00 14:48 Temperature 100.1 F H 97.7 F Pulse Rate 75 60 Pulse Rate [ Right Radial] Respiratory 20 20 Rate Blood Pressure 157/71 Blood Pressure [Left Arm] O2 Sat by Pulse 94 L Oximetry (%) 08/25/19 16:00 Temperature Pulse Rate Pulse Rate [ Right Radial] Respiratory 18 Rate Blood Pressure Blood Pressure [Left Arm] O2 Sat by Pulse 96 Oximetry (%) GENERAL: Awake, alert, NAD EYES: PEERLA: EOMI; no scleral icterus . NECK: no JVD; no lymphadenopathy LUNGS: CTA B/L; no rales, rhonchi or wheezing HEART: Regular rate and rhythm, normal S1 and S2 without murmur, rub or gallop. ABDOMEN: Soft, NT/ND+BS in all 4 quadrants . MUSCULOSKELETAL: Normal range of motion at all joints. No bony deformities or tenderness. No CVA tenderness. UPPER EXTREMITIES: right arm- bandage in place; slight erythema . LOWER EXTREMITIES: warm; well-perfused no clubbing/cyanosis or edema . NEUROLOGICAL: Cranial nerves II-XII intact. Normal speech. Normal gait. PSYCHIATRIC: Cooperative. Good eye contact. Appropriate mood and affect. SKIN: Warm, dry, normal turgor, no rashes or lesions noted. Laboratory Results - last 24 hr 08/25/19 08/25/19 06:30 06:30 WBC 11.7 H RBC 3.05 L Hgb 9.5 L Hct 28.7 L MCV 94.1 MCH 31.2 MCHC 33.1 RDW 15.5 Plt Count 415 MPV 8.7 Absolute Neuts (auto) 9.0 H Neutrophils % 77.1 Lymphocytes % 10.8 Monocytes % 9.8 Eosinophils % 1.9 Basophils % 0.4 Nucleated RBC % 0 Sodium 132 L Potassium 4.7 Chloride 96 L Carbon Dioxide 21 Anion Gap 15 BUN 60.7 H Creatinine 11.0 H* Est GFR (CKD-EPI)AfAm 3.35 Est GFR (CKD-EPI)NonAf 2.89 Random Glucose 64 L Calcium 7.6 L Total Bilirubin 0.3 AST 15 ALT 17 Alkaline Phosphatase 92 Total Protein 6.4 Albumin 2.4 L Active Medications Generic Name Dose Route Start Last Admin Trade Name Freq PRN Reason Stop Dose Admin Acetaminophen 650 mg 08/24/19 18:30 Tylenol - PO Q6H PRN FEVER Alprazolam 0.25 mg 08/24/19 18:30 08/25/19 13:27 Xanax - PO 0.25 mg BID PRN Administration ANXIETY Amitriptyline HCl 50 mg 08/24/19 22:00 08/24/19 21:57 Elavil - PO 50 mg HS [facility] Administration Aspirin 81 mg 08/25/19 10:00 08/25/19 10:14 Asa - PO 81 mg DAILY [facility] Administration Atorvastatin Calcium 80 mg 08/24/19 22:00 08/24/19 21:58 Lipitor - PO 80 mg HS [facility] Administration Bacitracin 1 applic 08/26/19 10:00 Bacitracin - TP DAILY [facility] Calcitriol 0.25 mcg 08/25/19 10:00 08/25/19 10:14 Rocaltrol - PO 0.25 mcg DAILY [facility] Administration Calcium Acetate 667 mg 08/25/19 08:00 08/25/19 13:34 Phoslo - PO Not Given TIDCM [facility] Carvedilol 6.25 mg 08/24/19 22:00 08/25/19 10:13 Coreg - PO 6.25 mg BID [facility] Administration Cholestyramine Resin 4 gm 08/24/19 22:00 08/25/19 10:54 Questran Light Packet - PO Not Given BID [facility] Clopidogrel Bisulfate 75 mg 08/25/19 10:00 08/25/19 10:14 Plavix - PO 75 mg DAILY [facility] Administration Ferrous Sulfate 325 mg 08/24/19 22:00 08/25/19 10:14 Feosol - PO 325 mg BID [facility] Administration Daptomycin 300 mg/ Sodium 50 mls @ 50 mls/hr 08/26/19 13:05 Chloride IVPB MOWEFR [facility] Protocol Sodium Chloride 1,000 mls @ 125 mls/hr 08/25/19 16:45 Normal Saline - IV 08/26/19 00:44 ASDIR [facility] Isosorbide Mononitrate 30 mg 08/25/19 10:00 08/25/19 10:12 Imdur - PO 30 mg DAILY [facility] Administration Losartan Potassium 100 mg 08/25/19 10:00 08/25/19 10:13 Cozaar - PO 100 mg DAILY [facility] Administration Nifedipine 120 mg 08/25/19 10:00 08/25/19 10:12 Procardia Xl - PO 120 mg DAILY [facility] Administration Ondansetron HCl 4 mg 08/24/19 18:30 08/25/19 11:05 Zofran - PO 4 mg BID PRN Administration NAUSEA AND/OR VOMITING Oxycodone HCl 5 mg 08/24/19 23:50 08/24/19 23:57 Roxicodone - PO 5 mg Q6H PRN Administration PAIN LEVEL 6-10 Sevelamer Carbonate 1,600 mg 08/25/19 08:00 08/25/19 13:35 Renvela - PO Not Given TIDCM [facility] ASSESSMENT/PLAN: 84 year old female with PMH of ESRD on HD (MF), DM, hypertension, CAD with recent NSTEMI, PVD, current smoker presents to the ED with complaints of a right abscess/boil on her forearm found to be bacteremic and underwent and I&D of abscess #Neuro history of anxiety -c/w amitriptyline and xanax #Cardiovascular history of HTN, CAD with recent NSTEMI -currently hypotensive; patient refusing central line placement; -holding home antihypertensives in light of hypotension -maintain MAP >65 -c/w lipitor, ASA, plavix -PATIENT ADAMANTLY REFUSING CENTRAL LINE #DM stable; diet controlled #ID patient bacteremic growing gram + cocci in clusters in both bottles -received clinda, linezolidm dapto x1; will dose dapto again with HD tomorow -received 500cc bolust thus far; patient refusing central line placement -ID on board; recs appreciated -underwent i&D of abscess- f/u cx -echo ordered -repeat blood cx in AM # Renal ESRD on HD M/F -to get HD tomorrow -f/u labs -monitor volume status/ electrolytes -avoid nephrotoxic agents -1.2 L fluid restriction; renal diet F/E/N received 1L bolus for hypotension- 1.2 L fluid restriction monitor electrolytes renal diet patient adamantly refusing central line- wants to think over regarding DNR/DNI Dispo: We will continue to follow the patient. Thank you for this consultative opportunity. Problem List - Problems (1) Cellulitis of right upper extremity Code(s): L03.113 - CELLULITIS OF RIGHT UPPER LIMB (2) Anxiety Code(s): F41.9 - ANXIETY DISORDER, UNSPECIFIED (3) CKD stage 5 secondary to hypertension Code(s): I12.0 - HYP CHR KIDNEY DISEASE W STAGE 5 CHR KIDNEY DISEASE OR ESRD; N18.5 - CHRONIC KIDNEY DISEASE, STAGE 5 (4) COPD (chronic obstructive pulmonary disease) Code(s): J44.9 - CHRONIC OBSTRUCTIVE PULMONARY DISEASE, UNSPECIFIED Visit type - Emergency Visit Emergency Visit: Yes ED Registration Date: 08/24/19 Care time: The patient presented to the Emergency Department on the above date and was hospitalized for further evaluation of their emergent condition. - New Patient This patient is new to me today: Yes Date on this admission: 08/26/19 - Critical Care Critical Care patient: Yes Total Critical Care Time (in minutes): 35 Critical Care Statement: The care of this patient involved high complexity decision making to prevent further life threatening deterioration of the patient 's condition and/or to evaluate & treat vital organ system(s) failure or risk of failure. ATTENDING PHYSICIAN STATEMENT I saw and evaluated the patient. I reviewed the resident's note and discussed the case with the resident. I agree with the resident's findings and plan as documented. SUBJECTIVE: OBJECTIVE: ASSESSMENT AND PLAN:
[2019-08-25] MEDS: ATORVASTATIN CA 80 MG TABLET (FP) PO SCH (21:52)
[2019-08-25] MEDS: AMITRIPTYLINE HCL 25 MG TABLET PO SCH (22:59)
[2019-08-26 06:32] LABS: BASO % 0.9 % (0-2.0); EOS % 4.3 % (0-4.5); HEMOGLOBIN 8.4 GM/dL (10.7-15.3); LYMPH % 14.5 % (8-40); MCH 31.6 pg (25.7-33.7); MCHC 33.5 g/dl (32.0-36.0); MEAN CELL VOLUME 94.4 fl (80-96); MEAN PLT VOLUME 8.3 fl (7.5-11.1); MONO % 12.1 % (3.8-10.2); NEUT % 68.2 % (42.8-82.8); PLATELET COUNT 374 K/MM3 (134-434); RBC 2.65 M/mm3 (3.60-5.2); RDW 15.3 % (11.6-15.6); WHITE BLOOD COUNT 7.6 K/mm3 (4.0-10.0)
--- NOTE | 2019-08-26 06:37 | PN ---
Progress Note, Physician Chief Complaint: events noted last evening pt became hypotensive (BP from Systolic 180 went down to 80) received IVF not better transferred to ICU RUE s/p I&D less arm pain now seen by ID blood cx positive; pt has ALL Vanco and PNC; IV clinda was ordered in ER but she refused IV and wanted [po ATB; then d/w ID dr and peripheral IV inserted; pt received 1 dose IV dapto - then to be given with HD per ID - Current Medication List Current Medications: Active Medications Acetaminophen (Tylenol -) 650 mg PO Q6H PRN PRN Reason: FEVER Alprazolam (Xanax -) 0.25 mg PO BID PRN PRN Reason: ANXIETY Last Admin: 08/25/19 23:02 Dose: 0.25 mg Amitriptyline HCl (Elavil -) 50 mg PO [facility] Last Admin: 08/25/19 22:59 Dose: 50 mg Aspirin (Asa -) 81 mg PO DAILY [facility] Last Admin: 08/25/19 10:14 Dose: 81 mg Atorvastatin Calcium (Lipitor -) 80 mg PO [facility] Last Admin: 08/25/19 21:52 Dose: 80 mg Bacitracin (Bacitracin -) 1 applic TP DAILY [facility] Calcitriol (Rocaltrol -) 0.25 mcg PO DAILY [facility] Last Admin: 08/25/19 10:14 Dose: 0.25 mcg Calcium Acetate (Phoslo -) 667 mg PO TIDCM [facility] Last Admin: 08/25/19 17:08 Dose: Not Given Carvedilol (Coreg -) 6.25 mg PO BID [facility] Last Admin: 08/25/19 21:16 Dose: Not Given Cholestyramine Resin (Questran Light Packet -) 4 gm PO BID [facility] Last Admin: 08/25/19 21:16 Dose: Not Given Clopidogrel Bisulfate (Plavix -) 75 mg PO DAILY [facility] Last Admin: 08/25/19 10:14 Dose: 75 mg Ferrous Sulfate (Feosol -) 325 mg PO BID [facility] Last Admin: 08/25/19 21:52 Dose: 325 mg Daptomycin 300 mg/ Sodium (Chloride) 50 mls @ 50 mls/hr IVPB MOWEFR [facility]; Protocol Isosorbide Mononitrate (Imdur -) 30 mg PO DAILY [facility] Last Admin: 08/25/19 10:12 Dose: 30 mg Losartan Potassium (Cozaar -) 100 mg PO DAILY [facility] Last Admin: 08/25/19 10:13 Dose: 100 mg Nifedipine (Procardia Xl -) 120 mg PO DAILY [facility] Last Admin: 08/25/19 10:12 Dose: 120 mg Ondansetron HCl (Zofran -) 4 mg PO BID PRN PRN Reason: NAUSEA AND/OR VOMITING Last Admin: 08/25/19 11:05 Dose: 4 mg Oxycodone HCl (Roxicodone -) 5 mg PO Q6H PRN PRN Reason: PAIN LEVEL 6-10 Last Admin: 08/24/19 23:57 Dose: 5 mg Sevelamer Carbonate (Renvela -) 1,600 mg PO TIDCM [facility] Last Admin: 08/25/19 17:10 Dose: Not Given - Objective Vital Signs: Vital Signs Temperature 97.6 F 08/26/19 06:00 Pulse Rate 73 08/26/19 06:00 Respiratory Rate 20 08/26/19 06:00 Blood Pressure 125/54 L 08/26/19 06:00 O2 Sat by Pulse Oximetry (%) 96 08/25/19 21:26 Constitutional: Yes: No Distress, Calm Eyes: Yes: Conjunctiva Clear HENT: Yes: Atraumatic Neck: Yes: Supple Cardiovascular: Yes: Regular Rate and Rhythm Respiratory: Yes: CTA Bilaterally, Other (chest HD catheter looks clean) Gastrointestinal: Yes: Soft. No: Tenderness Genitourinary: No: Hematuria Musculoskeletal: No: Joint Stiffness, Joint Swelling Extremities: No: Cold, Cool, Cyanosis Edema: No Integumentary: No: Rash, Venous Stasis Changes Neurological: Yes: WNL, Alert, Oriented ...Motor Strength: WNL Psychiatric: Yes: WNL, Alert, Oriented. No: Agitated, Suicidal Ideation Labs: INR, PTT INR 1.12 (0.83-1.09) H 08/24/19 10:30 - ....Imaging Other: Report Reviewed Assessment/Plan 84-year-old female with history of end-stage renal disease on hemodialysis, presents with worsening pain and erythema to the right upper extremity site catheter related thrombophlebitis, sepsis HTN s/p hypotension, positive blood cx, sepsis ID and surgery f/u; IV ATB per ID HD per renal prognosis guarded echo r/o vegetations d/w pt and staff 40 min
[2019-08-26 07:09] LABS: ALBUMIN 2.2 g/dl (3.4-5.0); BILIRUBIN,TOTAL 0.2 mg/dL (0.2-1); BLOOD UREA NITROGEN 72.3 mg/dL (7-18); CALCIUM 7.3 mg/dL (8.5-10.1); MAGNESIUM 1.9 mg/dL (1.8-2.4); PHOSPHOROUS 5.6 mg/dL (2.5-4.9); POTASSIUM 4.8 mmol/L (3.5-5.1); TOT PROT 5.6 g/dl (6.4-8.2)
--- NOTE | 2019-08-26 08:18 | PN ---
Progress Note (short form) - Note Progress Note: GENERAL SURGERY Day 1 s/p bedside I&D RUE forearm abscess Resting comfortably without complaint. Afeb. AVSS. WBC 7.6 (11.7) GEN: nad. RUE dressing taken down on rounds - surrounding erythema is receding form perimeter pen line - wound is open, shallow, un-packable, fibrinous slough - no odor or streaking erythema NEURO: GMNVI Problem List - Problems (1) Cellulitis of right upper extremity Assessment/Plan: f/u Cultures May shower Bacitracin dressing changes daily Cont care per primary team Reconsult surgery prn On behalf of Dr. Laird, thank you for the opportunity to participate in your patient's care Code(s): L03.113 - CELLULITIS OF RIGHT UPPER LIMB (2) ESRD (end stage renal disease) on dialysis Code(s): N18.6 - END STAGE RENAL DISEASE; Z99.2 - DEPENDENCE ON RENAL DIALYSIS (3) COPD (chronic obstructive pulmonary disease) Code(s): J44.9 - CHRONIC OBSTRUCTIVE PULMONARY DISEASE, UNSPECIFIED
[2019-08-26] MEDS ORDERED: PT OWN MED DRAWER 7, Y5N ONE ×3 (08:53→18:00)
[2019-08-26] MEDS: ALPRAZolam 0.25 MG TABLET PO PRN ×2 (09:06→22:00)
[2019-08-26] MEDS: SEVELAMER CARBONATE 800 MG TAB (FP) PO SCH ×3 (09:06→16:36)
[2019-08-26] MEDS: CHOLESTYRAMINE/ASPARTAME 4 GM PACKET PO SCH ×2 (09:06→22:00)
[2019-08-26] MEDS: CARVEDILOL 6.25 MG TABLET (FP) PO SCH (09:07)
[2019-08-26] MEDS: CALCITRIOL 0.25 MCG CAPSULE (FP) PO SCH (09:07)
[2019-08-26] MEDS: ASPIRIN 81 MG CHEWABLE TABLETS PO SCH (09:07)
[2019-08-26] MEDS: ISOSORBIDE MONONITRATE 30 MG TAB.SR.24H (FP) PO SCH (09:07)
[2019-08-26] MEDS: CLOPIDOGREL BISULFATE 75 MG TABLET (FP) PO SCH (09:07)
[2019-08-26] MEDS: CALCIUM ACETATE 667 MG CAPSULE (FP) PO SCH ×3 (09:07→16:36)
[2019-08-26] MEDS: FERROUS SO4 325 MG TABLET (FP) PO SCH ×2 (09:08→21:59)
[2019-08-26] MEDS: BACITRACIN 15 GM TUBE TOPICAL OINTMENT TP SCH (09:08)
[2019-08-26] MEDS: LOSARTAN POTASSIUM 50 MG TABLET (FP) PO SCH (10:00)
[2019-08-26] MEDS: NIFEdipine E.R 60 MG TABLET PO SCH (10:00)
[2019-08-26] MEDS ORDERED: SODIUM CHLORIDE 250 ML IV PRN ×2 (12:33→12:37)
--- NOTE | 2019-08-26 12:59 | PN ---
Progress Note (short form) - Note Progress Note: Renal follow up for ESRD on HD Seen and examined in the ICU awake and alert was transferred to the ICU last night for hypotension s/p I&D of the forearm lesion no chest pain, shortness of breath, N/V/D Vital Signs Temperature 97.8 F 08/26/19 10:00 Pulse Rate 78 08/26/19 14:00 Respiratory Rate 23 H 08/26/19 14:00 Blood Pressure 137/71 08/26/19 14:00 O2 Sat by Pulse Oximetry (%) 96 08/25/19 21:26 Intake & Output 08/23/19 08/24/19 08/25/19 08/26/19 23:59 23:59 23:59 23:59 Intake Total 023 920 4008 Balance 242 273 4990 Weight 49.895 kg 52.526 kg NAD RRR CTA soft NT/ND no LE edema tunneled HD catheter in place, no cyanosis or clubbing dressing over the right arm CBC, BMP 08/26/19 05:20 08/26/19 05:20 Current Medications Acetaminophen (Tylenol -) 650 mg PO Q6H PRN PRN Reason: FEVER Albumin Human (Albumin Human 25%) 12.5 gm IVPB Q30M [facility] Stop: 08/26/19 15:46 Last Admin: 08/26/19 13:30 Dose: 12.5 gm Alprazolam (Xanax -) 0.25 mg PO BID PRN PRN Reason: ANXIETY Last Admin: 08/26/19 09:06 Dose: 0.25 mg Amitriptyline HCl (Elavil -) 50 mg PO HS [facility] Last Admin: 08/25/19 22:59 Dose: 50 mg Aspirin (Asa -) 81 mg PO DAILY [facility] Last Admin: 08/26/19 09:07 Dose: 81 mg Atorvastatin Calcium (Lipitor -) 80 mg PO HS [facility] Last Admin: 08/25/19 21:52 Dose: 80 mg Bacitracin (Bacitracin -) 1 applic TP DAILY [facility] Last Admin: 08/26/19 09:08 Dose: 1 applic Calcitriol (Rocaltrol -) 0.25 mcg PO DAILY [facility] Last Admin: 08/26/19 09:07 Dose: 0.25 mcg Calcium Acetate (Phoslo -) 667 mg PO TIDCM [facility] Last Admin: 08/26/19 12:30 Dose: 667 mg Cholestyramine Resin (Questran Light Packet -) 4 gm PO BID [facility] Last Admin: 08/26/19 09:06 Dose: 4 gm Clopidogrel Bisulfate (Plavix -) 75 mg PO DAILY [facility] Last Admin: 08/26/19 09:07 Dose: 75 mg Epoetin Paco (Procrit -) 20,000 unit IVPUSH ONCE ONE Stop: 08/26/19 14:16 Ferrous Sulfate (Feosol -) 325 mg PO BID [facility] Last Admin: 08/26/19 09:08 Dose: 325 mg Heparin Sodium (Porcine) (Heparin -) 300 unit IVPUSH Q1H [facility] Stop: 08/26/19 14:46 Last Admin: 08/26/19 13:37 Dose: 300 unit Daptomycin 300 mg/ Sodium (Chloride) 50 mls @ 50 mls/hr IVPB MOWEFR [facility]; Protocol Sodium Chloride (Normal Saline -) 250 mls @ 3,000 mls/hr IV PRN PRN PRN Reason: Hypotension during Dialysis Stop: 08/27/19 12:37 Losartan Potassium (Cozaar -) 100 mg PO DAILY [facility] Last Admin: 08/25/19 10:13 Dose: 100 mg Nifedipine (Procardia Xl -) 120 mg PO DAILY [facility] Last Admin: 08/25/19 10:12 Dose: 120 mg Ondansetron HCl (Zofran -) 4 mg PO BID PRN PRN Reason: NAUSEA AND/OR VOMITING Last Admin: 08/25/19 11:05 Dose: 4 mg Oxycodone HCl (Roxicodone -) 5 mg PO Q6H PRN PRN Reason: PAIN LEVEL 6-10 Last Admin: 08/24/19 23:57 Dose: 5 mg Sevelamer Carbonate (Renvela -) 1,600 mg PO TIDCM [facility] Last Admin: 08/26/19 12:30 Dose: 1,600 mg 84 year old woman with history of ESRD no HD (), DM, hypertension, CAD with recent NSTEMI, PVD, current smoker presents from home with boil on her right arm. 1. ESRD on HD 2. Abscess on arm 3. Gram positive bacteremia 4. Hypertension 5. CAD Dialysis today with minimal UF given low BP To get IV Daptomycin post dialysis Surgical intervention noted ID follow up, follow up repeat cultures will reduce antihypertensive dosages given low BP Thank you Quentin Goyal DO
--- NOTE | 2019-08-26 13:02 | PN ---
Teaching Attending Note Name of Resident: Leatha Diallo ATTENDING PHYSICIAN STATEMENT I saw and evaluated the patient. I reviewed the resident's note and discussed the case with the resident. I agree with the resident's findings and plan as documented. SUBJECTIVE: Pt seen and examined in the ICU. Hypotension improved with fluid resuscitation. Blood cultures growing presumptive MRSA. OBJECTIVE: Vital Signs Period Temp Pulse Resp BP Sys/Banuelos Pulse Ox Last 24 Hr 97.4 F-98 F 60-80 14-25 80-145/39-74 96-96 Intake & Output 08/23/19 08/24/19 08/25/19 08/26/19 23:59 23:59 23:59 23:59 Intake Total 911 551 8162 Balance 231 771 2060 Weight 49.895 kg 52.526 kg Gen: NAD at rest Heart: RRR Lung: decreased breath sounds at the bases Abd: soft, nontender Ext: demarcated area of erythema, induration CBC, BMP 08/26/19 05:20 08/26/19 05:20 Active Medications Acetaminophen (Tylenol -) 650 mg PO Q6H PRN PRN Reason: FEVER Albumin Human (Albumin Human 25%) 12.5 gm IVPB Q30M [facility] Alprazolam (Xanax -) 0.25 mg PO BID PRN PRN Reason: ANXIETY Last Admin: 08/26/19 09:06 Dose: 0.25 mg Amitriptyline HCl (Elavil -) 50 mg PO HS [facility] Last Admin: 08/25/19 22:59 Dose: 50 mg Aspirin (Asa -) 81 mg PO DAILY [facility] Last Admin: 08/26/19 09:07 Dose: 81 mg Atorvastatin Calcium (Lipitor -) 80 mg PO HS [facility] Last Admin: 08/25/19 21:52 Dose: 80 mg Bacitracin (Bacitracin -) 1 applic TP DAILY [facility] Last Admin: 08/26/19 09:08 Dose: 1 applic Calcitriol (Rocaltrol -) 0.25 mcg PO DAILY [facility] Last Admin: 08/26/19 09:07 Dose: 0.25 mcg Calcium Acetate (Phoslo -) 667 mg PO TIDCM [facility] Last Admin: 08/26/19 12:30 Dose: 667 mg Cholestyramine Resin (Questran Light Packet -) 4 gm PO BID [facility] Last Admin: 08/26/19 09:06 Dose: 4 gm Clopidogrel Bisulfate (Plavix -) 75 mg PO DAILY [facility] Last Admin: 08/26/19 09:07 Dose: 75 mg Epoetin Paco (Epogen -) 20,000 unit IVPUSH ONCE ONE Stop: 08/26/19 12:38 Ferrous Sulfate (Feosol -) 325 mg PO BID [facility] Last Admin: 08/26/19 09:08 Dose: 325 mg Heparin Sodium (Porcine) (Heparin -) 300 unit IVPUSH Q1H [facility] Stop: 08/26/19 14:46 Daptomycin 300 mg/ Sodium (Chloride) 50 mls @ 50 mls/hr IVPB MOWEFR [facility]; Protocol Sodium Chloride (Normal Saline -) 250 mls @ 3,000 mls/hr IV PRN PRN PRN Reason: Hypotension during Dialysis Stop: 08/27/19 12:33 Sodium Chloride (Normal Saline -) 250 mls @ 3,000 mls/hr IV PRN PRN PRN Reason: Hypotension during Dialysis Stop: 08/27/19 12:37 Losartan Potassium (Cozaar -) 100 mg PO DAILY [facility] Last Admin: 08/25/19 10:13 Dose: 100 mg Nifedipine (Procardia Xl -) 120 mg PO DAILY [facility] Last Admin: 08/25/19 10:12 Dose: 120 mg Ondansetron HCl (Zofran -) 4 mg PO BID PRN PRN Reason: NAUSEA AND/OR VOMITING Last Admin: 08/25/19 11:05 Dose: 4 mg Oxycodone HCl (Roxicodone -) 5 mg PO Q6H PRN PRN Reason: PAIN LEVEL 6-10 Last Admin: 08/24/19 23:57 Dose: 5 mg Sevelamer Carbonate (Renvela -) 1,600 mg PO TIDCM [facility] Last Admin: 08/26/19 12:30 Dose: 1,600 mg ASSESSMENT AND PLAN: Right Arm Abscess/Cellulitis Gram Positive Bacteremia Sepsis ESRD on HD CAD HTN DM Anxiety - continue antibiotics - f/u cultures - echocardiogram - HD per renal - IVF boluses as needed - wound care - DVT prophylaxis - can monitor on floor
[2019-08-26] MEDS: ALBUMIN HUMAN 25% 12.5 GM/50 ML VIAL IVPB SCH ×3 (13:30→15:46)
[2019-08-26] MEDS: HEPARIN NA (PORCINE) 5,000 UNITS/ML 1ML VIAL IVPUSH SCH ×3 (13:37→15:47)
--- NOTE | 2019-08-26 14:01 | PN ---
Progress Note, Physician History of Present Illness: events noted patient became hyportensive brought icu seen in icu now feeling better speech a bit stil slur being dialysed - Current Medication List Current Medications: Active Medications Acetaminophen (Tylenol -) 650 mg PO Q6H PRN PRN Reason: FEVER Albumin Human (Albumin Human 25%) 12.5 gm IVPB Q30M [facility] Stop: 08/26/19 15:46 Last Admin: 08/26/19 13:30 Dose: 12.5 gm Alprazolam (Xanax -) 0.25 mg PO BID PRN PRN Reason: ANXIETY Last Admin: 08/26/19 09:06 Dose: 0.25 mg Amitriptyline HCl (Elavil -) 50 mg PO HS [facility] Last Admin: 08/25/19 22:59 Dose: 50 mg Aspirin (Asa -) 81 mg PO DAILY [facility] Last Admin: 08/26/19 09:07 Dose: 81 mg Atorvastatin Calcium (Lipitor -) 80 mg PO HS [facility] Last Admin: 08/25/19 21:52 Dose: 80 mg Bacitracin (Bacitracin -) 1 applic TP DAILY [facility] Last Admin: 08/26/19 09:08 Dose: 1 applic Calcitriol (Rocaltrol -) 0.25 mcg PO DAILY [facility] Last Admin: 08/26/19 09:07 Dose: 0.25 mcg Calcium Acetate (Phoslo -) 667 mg PO TIDCM [facility] Last Admin: 08/26/19 12:30 Dose: 667 mg Cholestyramine Resin (Questran Light Packet -) 4 gm PO BID [facility] Last Admin: 08/26/19 09:06 Dose: 4 gm Clopidogrel Bisulfate (Plavix -) 75 mg PO DAILY [facility] Last Admin: 08/26/19 09:07 Dose: 75 mg Epoetin Paco (Procrit -) 20,000 unit IVPUSH ONCE ONE Stop: 08/26/19 14:16 Ferrous Sulfate (Feosol -) 325 mg PO BID [facility] Last Admin: 08/26/19 09:08 Dose: 325 mg Heparin Sodium (Porcine) (Heparin -) 300 unit IVPUSH Q1H [facility] Stop: 08/26/19 14:46 Last Admin: 08/26/19 13:37 Dose: 300 unit Daptomycin 300 mg/ Sodium (Chloride) 50 mls @ 50 mls/hr IVPB MOWEFR [facility]; Protocol Sodium Chloride (Normal Saline -) 250 mls @ 3,000 mls/hr IV PRN PRN PRN Reason: Hypotension during Dialysis Stop: 08/27/19 12:37 Losartan Potassium (Cozaar -) 100 mg PO DAILY [facility] Last Admin: 08/25/19 10:13 Dose: 100 mg Nifedipine (Procardia Xl -) 120 mg PO DAILY [facility] Last Admin: 08/25/19 10:12 Dose: 120 mg Ondansetron HCl (Zofran -) 4 mg PO BID PRN PRN Reason: NAUSEA AND/OR VOMITING Last Admin: 08/25/19 11:05 Dose: 4 mg Oxycodone HCl (Roxicodone -) 5 mg PO Q6H PRN PRN Reason: PAIN LEVEL 6-10 Last Admin: 08/24/19 23:57 Dose: 5 mg Sevelamer Carbonate (Renvela -) 1,600 mg PO TIDCM [facility] Last Admin: 08/26/19 12:30 Dose: 1,600 mg - Objective Vital Signs: Vital Signs Temperature 97.8 F 08/26/19 10:00 Pulse Rate 79 08/26/19 12:50 Respiratory Rate 20 08/26/19 12:50 Blood Pressure 136/56 L 08/26/19 12:50 O2 Sat by Pulse Oximetry (%) 96 08/25/19 21:26 Constitutional: Yes: No Distress, Calm Cardiovascular: Yes: S1, S2 Respiratory: Yes: Regular, CTA Bilaterally Gastrointestinal: Yes: Normal Bowel Sounds, Soft Musculoskeletal: Yes: WNL Extremities: Yes: Erythema, Other Wound/Incision: Yes: Dressing Dry and Intact Neurological: Yes: Alert, Oriented Psychiatric: Yes: Alert, Oriented Labs: CBC, BMP 08/26/19 05:20 08/26/19 05:20 INR, PTT INR 1.12 (0.83-1.09) H 08/24/19 10:30 Assessment/Plan Problem List - Problems (1) Cellulitis of right upper extremity Code(s): L03.113 - CELLULITIS OF RIGHT UPPER LIMB (2) Anemia Code(s): D64.9 - ANEMIA, UNSPECIFIED Qualifiers: (3) Anxiety Code(s): F41.9 - ANXIETY DISORDER, UNSPECIFIED (4) CAD (coronary artery disease) Code(s): I25.10 - ATHSCL HEART DISEASE OF [place] CORONARY ARTERY W/O ANG PCTRS Qualifiers: Coronary Disease-Associated Artery/Lesion type: [place] artery [place] vs. transplanted heart: [place] heart Associated angina: without angina Qualified Code(s): I25.10 - Atherosclerotic heart disease of [place] coronary artery without angina pectoris (5) COPD (chronic obstructive pulmonary disease) Code(s): J44.9 - CHRONIC OBSTRUCTIVE PULMONARY DISEASE, UNSPECIFIED Qualifiers: COPD type: unspecified COPD Qualified Code(s): J44.9 - Chronic obstructive pulmonary disease, unspecified (6) Cigarette nicotine dependence Code(s): F17.210 - NICOTINE DEPENDENCE, CIGARETTES, UNCOMPLICATED (7) Diabetes mellitus Code(s): E11.9 - TYPE 2 DIABETES MELLITUS WITHOUT COMPLICATIONS Qualifiers: Diabetes mellitus type: type 2 Diabetes mellitus complication status: with kidney complications Diabetes mellitus complication detail: with chronic kidney disease Chronic kidney disease stage: on chronic dialysis (8) ESRD (end stage renal disease) on dialysis Code(s): N18.6 - END STAGE RENAL DISEASE; Z99.2 - DEPENDENCE ON RENAL DIALYSIS (9) HTN (hypertension) Code(s): I10 - ESSENTIAL (PRIMARY) HYPERTENSION Qualifiers: Hypertension type: unspecified Qualified Code(s): I10 - Essential (primary ) hypertension (10) Hx of antibiotic allergy Code(s): Z88.1 - ALLERGY STATUS TO OTHER ANTIBIOTIC AGENTS STATUS (11) Hyperlipidemia Code(s): E78.5 - HYPERLIPIDEMIA, UNSPECIFIED Qualifiers: Hyperlipidemia type: pure hypercholesterolemia Qualified Code(s): E78.00 - Pure hypercholesterolemia, unspecified; E78.0 - Pure hypercholesterolemia (12) PAD (peripheral artery disease) Code(s): I73.9 - PERIPHERAL VASCULAR DISEASE, UNSPECIFIED (13) S/P femoropopliteal bypass surgery Code(s): Z95.828 - PRESENCE OF OTHER VASCULAR IMPLANTS AND GRAFTS Assessment/Plan 84 y.o. female with PMH of ESRD on HD, CAD, NSTEMI, DM, COPD, active smoker, HTN , PAD s/p Rt fem-pop bypass, Rt toe amp, HTN, HLD presents with complaints of worsening Rt forearm erythema/edema/and tenderness, low grade fever, mild leukocytosis with +blood cultures Gram positive bacteremia Rt forearm cellulitis/abscess s/p drainage ESRD on HD DM CAD COPD Nicotine dependence PAD HTN HLD continue dapt await for repeat blood cx close watch monitor bp rest as per icu cc 40 min
[2019-08-26] MEDS ORDERED: EPOETIN ALFA 20,000 UNIT/1 ML VIAL IVPUSH ONE (14:15)
--- NOTE | 2019-08-26 15:07 | OP ---
DATE OF OPERATION: 08/25/2019 PROCEDURE: Incision and drainage of right forearm abscess. SURGEON: Beau Laird D.O. CHANGE MANAGEMENT ANALYST: None. ANESTHESIA: Local. FINDINGS: Approximately 3 mL of white pus without odor and some necrotic material. BLOOD LOSS: Minimal. DRAINS: None. COMPLICATIONS: None. BRIEF HISTORY: This is an 20-year-old female who was admitted to [facility] was noted to have a right forearm abscess. She represents today for surgical incision and drainage. PROCEDURE: The patient was placed in the supine position. The right arm was prepped and draped in a sterile fashion. A 5 mL of lidocaine with epinephrine was used to anesthetize the overlying skin. A longitudinal incision was made overlying the abscess approximately 3 cm in length. Upon entering the abscess cavity, there was noted to be necrotic fat. Approximately 3 mL of white pus was expressed. It was sent to Microbiology for culture and sensitivity. The wound was irrigated. A pressure dressing was placed. PLAN: Patient will have her dressing removed tomorrow at which point she can shower with soap and water going directly into the wound. She should apply a bacitracin dressing daily after cleaning her wound. She is to follow with me on an as needed basis and continue antibiotics per the medical team. Please note that an informed consent was taken verbally prior to the procedure. I answered the patients questions and she was agreeable to the procedure. DO MURTAZA DEL RIO/[id number]
--- NOTE | 2019-08-26 16:08 | PN ---
Physical Exam: SUBJECTIVE: Patient seen and examined in the morning. No acute events overnight, no events on cardiac monitoring. No complaints of chest pain, shortness of breath, abdominal pain, nausea, vomiting, diarrhea. OBJECTIVE: Vital Signs Period Temp Pulse Resp BP Sys/Banuelos Pulse Ox Last 24 Hr 97.4 F-98 F 62-83 14-25 82-151/42-76 96-96 GENERAL: Awake, alert, NAD EYES: EOMI LUNGS:Clear to auscultation bilaterally HEART: Regular rate and rhythm, 4/6 systolic murmur ABDOMEN: soft, nontender, normoactive bowel sounds. MUSCULOSKELETAL: Normal range of motion at all joints. No bony deformities or tenderness. No CVA tenderness. UPPER EXTREMITIES: Eyrthema in the right arm, dressing in place. LOWER EXTREMITIES: warm; well-perfused no clubbing/cyanosis or edema . NEUROLOGICAL: Cranial nerves II-XII intact. PSYCHIATRIC: Cooperative. Good eye contact. Appropriate mood and affect. SKIN: Warm, dry, normal turgor, no rashes or lesions noted. Laboratory Results - last 24 hr 08/26/19 08/26/19 08/26/19 05:20 05:20 12:09 WBC 7.6 RBC 2.65 L Hgb 8.4 L Hct 25.0 L MCV 94.4 MCH 31.6 MCHC 33.5 RDW 15.3 Plt Count 374 MPV 8.3 Absolute Neuts (auto) 5.2 Neutrophils % 68.2 Lymphocytes % 14.5 D Monocytes % 12.1 H Eosinophils % 4.3 D Basophils % 0.9 Nucleated RBC % 0 Sodium 133 L Potassium 4.8 Chloride 99 Carbon Dioxide 21 Anion Gap 14 BUN 72.3 H Creatinine 11.0 H* Est GFR (CKD-EPI)AfAm 3.35 Est GFR (CKD-EPI)NonAf 2.89 POC Glucometer 83 Random Glucose 56 L Calcium 7.3 L Phosphorus 5.6 H Magnesium 1.9 Total Bilirubin 0.2 AST 13 L ALT 14 Alkaline Phosphatase 85 Creatine Kinase 48 Total Protein 5.6 L Albumin 2.2 L Active Medications Generic Name Dose Route Start Last Admin Trade Name Freq PRN Reason Stop Dose Admin Acetaminophen 650 mg 08/24/19 18:30 Tylenol - PO Q6H PRN FEVER Albumin Human 12.5 gm 08/26/19 14:15 08/26/19 13:30 Albumin Human 25% IVPB 08/26/19 15:46 12.5 gm Q30M [facility] Administration Alprazolam 0.25 mg 08/24/19 18:30 08/26/19 09:06 Xanax - PO 0.25 mg BID PRN Administration ANXIETY Amitriptyline HCl 50 mg 08/24/19 22:00 08/25/19 22:59 Elavil - PO 50 mg HS [facility] Administration Aspirin 81 mg 08/25/19 10:00 08/26/19 09:07 Asa - PO 81 mg DAILY [facility] Administration Atorvastatin Calcium 80 mg 08/24/19 22:00 08/25/19 21:52 Lipitor - PO 80 mg HS [facility] Administration Bacitracin 1 applic 08/26/19 10:00 08/26/19 09:08 Bacitracin - TP 1 applic DAILY [facility] Administration Calcitriol 0.25 mcg 08/25/19 10:00 08/26/19 09:07 Rocaltrol - PO 0.25 mcg DAILY [facility] Administration Calcium Acetate 667 mg 08/25/19 08:00 08/26/19 12:30 Phoslo - PO 667 mg TIDCM [facility] Administration Cholestyramine Resin 4 gm 08/24/19 22:00 08/26/19 09:06 Questran Light Packet - PO 4 gm BID [facility] Administration Clopidogrel Bisulfate 75 mg 08/25/19 10:00 08/26/19 09:07 Plavix - PO 75 mg DAILY [facility] Administration Ferrous Sulfate 325 mg 08/24/19 22:00 08/26/19 09:08 Feosol - PO 325 mg BID [facility] Administration Daptomycin 300 mg/ Sodium 50 mls @ 50 mls/hr 08/26/19 13:05 Chloride IVPB [facility]OWEFR [facility] Protocol Sodium Chloride 250 mls @ 3,000 mls/hr 08/26/19 12:37 Normal Saline - IV 08/27/19 12:37 PRN PRN Hypotension during Dialysis Losartan Potassium 50 mg 08/26/19 14:15 Cozaar - PO DAILY [facility] Nifedipine 60 mg 08/26/19 14:17 Procardia Xl - PO DAILY [facility] Ondansetron HCl 4 mg 08/24/19 18:30 08/25/19 11:05 Zofran - PO 4 mg BID PRN Administration NAUSEA AND/OR VOMITING Oxycodone HCl 5 mg 08/24/19 23:50 08/24/19 23:57 Roxicodone - PO 5 mg Q6H PRN Administration PAIN LEVEL 6-10 Sevelamer Carbonate 1,600 mg 08/25/19 08:00 08/26/19 12:30 Renvela - PO 1,600 mg TIDCM [facility] Administration ASSESSMENT/PLAN: 84F with PMH of ESRD on HD Monday and Monday, DM, HTN, CAD, PVD who presents to the ED with right arm cellulitis, s/p I&D abscess. Neuro/ Psych -AAOx3 -Hx of Anxiety -Continue amitriptyline and xanax Cardiovascular -Hx of HTN, CAD, recent NSTEMI -patient was hypotensive on presentation, refused Central line placement. -Restarted on losartan and nifedipine -Echo shows LV normal size, thickness, and function normal. RV normal in size and function. Mild mitral regurgitation, mild tricuspid regurg. No evidence of endocarditis. -Continue lipitor, ASA, plavix Pulm -Patient was saturating in the low 80's at RA at first -2L NC -Chest x-ray does not show acute pathology Endo -stable, diet controlled ID -Patient cultures show presumptive MRSA. -Received Clindamycin, linezolid, and daptomycin -Will redose daptomycin with HD -I&D s/p abscess -Echo did not show vegetations Renal -HD tooday -F/U labs s/p HD -monitor volume status/electrolytes -avoid nephrotoxic agents F: Oral hydration E: Monitor CMP N: Renal diet Dispo: Transfer to med/surg Visit type - Emergency Visit Emergency Visit: Yes ED Registration Date: 08/24/19 Care time: The patient presented to the Emergency Department on the above date and was hospitalized for further evaluation of their emergent condition. - New Patient This patient is new to me today: Yes Date on this admission: 08/26/19 - Critical Care Critical Care patient: Yes Total Critical Care Time (in minutes): 45 Critical Care Statement: The care of this patient involved high complexity d ecision making to prevent further life threatening deterioration of the patient's condition and/or to evaluate & treat vital organ system(s) failure or risk of failure. ATTENDING PHYSICIAN STATEMENT I saw and evaluated the patient. I reviewed the resident's note and discussed the case with the resident. I agree with the resident's findings and plan as documented. SUBJECTIVE: OBJECTIVE: ASSESSMENT AND PLAN:
[2019-08-26] MEDS: DAPTOMYCIN 300 MG in SODIUM CHLORIDE 50 ML IVPB SCH (18:03)
[2019-08-26] MEDS: ACETAMINOPHEN 325 MG TABLET (FP) PO PRN (20:08)
[2019-08-26] MEDS ORDERED: LORazepam 2 MG/ML SDV VIAL IVPUSH ONE (21:53)
[2019-08-26] MEDS ORDERED: LORazepam 2 MG/ML SDV VIAL ONE (21:57)
[2019-08-26] MEDS: AMITRIPTYLINE HCL 25 MG TABLET PO SCH (21:58)
[2019-08-26] MEDS: ATORVASTATIN CA 80 MG TABLET (FP) PO SCH (21:59)
[2019-08-27 06:52] LABS: BASO % 0.5 % (0-2.0); EOS % 3.1 % (0-4.5); HEMATOCRIT 25.9 % (32.4-45.2); HEMOGLOBIN 8.7 GM/dL (10.7-15.3); LYMPH % 15.9 % (8-40); MCH 31.4 pg (25.7-33.7); MCHC 33.5 g/dl (32.0-36.0); MEAN CELL VOLUME 93.8 fl (80-96); MEAN PLT VOLUME 8.2 fl (7.5-11.1); MONO % 12.8 % (3.8-10.2); NEUT % 67.7 % (42.8-82.8); PLATELET COUNT 385 K/MM3 (134-434); RBC 2.76 M/mm3 (3.60-5.2); RDW 15.6 % (11.6-15.6); WHITE BLOOD COUNT 6.5 K/mm3 (4.0-10.0)
[2019-08-27 07:24] LABS: ALBUMIN 2.5 g/dl (3.4-5.0); BILIRUBIN,TOTAL 0.1 mg/dL (0.2-1); BLOOD UREA NITROGEN 20.5 mg/dL (7-18); CREATININE 5.4 mg/dL (0.55-1.3); MAGNESIUM 1.8 mg/dL (1.8-2.4); PHOSPHOROUS 3.1 mg/dL (2.5-4.9); POTASSIUM 3.7 mmol/L (3.5-5.1)
[2019-08-27] MEDS: CALCIUM ACETATE 667 MG CAPSULE (FP) PO SCH ×4 (08:56→17:57)
[2019-08-27] MEDS: SEVELAMER CARBONATE 800 MG TAB (FP) PO SCH ×4 (08:57→18:00)
[2019-08-27] MEDS: ASPIRIN 81 MG CHEWABLE TABLETS PO SCH (09:02)
[2019-08-27] MEDS: CALCITRIOL 0.25 MCG CAPSULE (FP) PO SCH (09:02)
[2019-08-27] MEDS: ONDANSETRON 4 MG TABLET PO PRN (09:02)
[2019-08-27] MEDS: CLOPIDOGREL BISULFATE 75 MG TABLET (FP) PO SCH (09:02)
[2019-08-27] MEDS: NIFEdipine E.R 60 MG TABLET PO SCH (09:02)
[2019-08-27] MEDS: LOSARTAN POTASSIUM 50 MG TABLET (FP) PO SCH (09:03)
[2019-08-27] MEDS: FERROUS SO4 325 MG TABLET (FP) PO SCH ×2 (09:03→22:08)
[2019-08-27] MEDS: CHOLESTYRAMINE/ASPARTAME 4 GM PACKET PO SCH ×2 (09:04→22:08)
[2019-08-27] MEDS: BACITRACIN 15 GM TUBE TOPICAL OINTMENT TP SCH (09:04)
[2019-08-27] MEDS: ALPRAZolam 0.25 MG TABLET PO PRN ×2 (10:15→22:08)
--- NOTE | 2019-08-27 11:45 | PN ---
Progress Note, Physician Chief Complaint: in ICU VSS BP better with IV Dapto dialysed yesterday echo pending consults appreciated and d/w pt - Current Medication List Current Medications: Active Medications Acetaminophen (Tylenol -) 650 mg PO Q6H PRN PRN Reason: FEVER Last Admin: 08/26/19 20:08 Dose: 650 mg Acetaminophen (Tylenol -) 650 mg PO Q6H PRN PRN Reason: FEVER Alprazolam (Xanax -) 0.25 mg PO BID PRN PRN Reason: ANXIETY Last Admin: 08/27/19 10:15 Dose: 0.25 mg Amitriptyline HCl (Elavil -) 50 mg PO HS [facility] Last Admin: 08/26/19 21:58 Dose: 50 mg Aspirin (Asa -) 81 mg PO DAILY [facility] Last Admin: 08/27/19 09:02 Dose: 81 mg Atorvastatin Calcium (Lipitor -) 80 mg PO [facility] Last Admin: 08/26/19 21:59 Dose: 80 mg Bacitracin (Bacitracin -) 1 applic TP DAILY [facility] Last Admin: 08/27/19 09:04 Dose: 1 applic Calcitriol (Rocaltrol -) 0.25 mcg PO DAILY [facility] Last Admin: 08/27/19 09:02 Dose: 0.25 mcg Calcium Acetate (Phoslo -) 667 mg PO TIDCM [facility] Last Admin: 08/27/19 08:56 Dose: 667 mg Cholestyramine Resin (Questran Light Packet -) 4 gm PO BID [facility] Last Admin: 08/27/19 09:04 Dose: 4 gm Clopidogrel Bisulfate (Plavix -) 75 mg PO DAILY [facility] Last Admin: 08/27/19 09:02 Dose: 75 mg Ferrous Sulfate (Feosol -) 325 mg PO BID [facility] Last Admin: 08/27/19 09:03 Dose: 325 mg Daptomycin 300 mg/ Sodium (Chloride) 50 mls @ 50 mls/hr IVPB MOWEFR [facility]; Protocol Last Admin: 08/26/19 18:03 Dose: 50 mls/hr Sodium Chloride (Normal Saline -) 250 mls @ 3,000 mls/hr IV PRN PRN PRN Reason: Hypotension during Dialysis Stop: 08/27/19 12:37 Losartan Potassium (Cozaar -) 50 mg PO DAILY [facility] Last Admin: 08/27/19 09:03 Dose: 50 mg Nifedipine (Procardia Xl -) 60 mg PO DAILY [facility] Last Admin: 08/27/19 09:02 Dose: 60 mg Ondansetron HCl (Zofran -) 4 mg PO BID PRN PRN Reason: NAUSEA AND/OR VOMITING Last Admin: 08/27/19 09:02 Dose: 4 mg Oxycodone HCl (Roxicodone -) 5 mg PO Q6H PRN PRN Reason: PAIN LEVEL 6-10 Last Admin: 08/24/19 23:57 Dose: 5 mg Sevelamer Carbonate (Renvela -) 1,600 mg PO TIDCM [facility] Last Admin: 08/27/19 08:57 Dose: 1,600 mg - Objective Vital Signs: Vital Signs Temperature 99.1 F 08/27/19 06:04 Pulse Rate 79 08/27/19 07:54 Respiratory Rate 22 H 08/27/19 07:54 Blood Pressure 122/43 L 08/27/19 07:54 O2 Sat by Pulse Oximetry (%) 98 08/27/19 07:53 Constitutional: Yes: No Distress, Calm Eyes: Yes: Conjunctiva Clear HENT: Yes: Atraumatic Neck: Yes: Supple Cardiovascular: Yes: Regular Rate and Rhythm Respiratory: Yes: CTA Bilaterally Gastrointestinal: Yes: Soft. No: Tenderness Genitourinary: No: Hematuria Musculoskeletal: No: Joint Stiffness, Joint Swelling Extremities: Yes: Other (RUE forearm dressed no pain no edema). No: Cold, Cool Edema: No Integumentary: No: Venous Stasis Changes Neurological: Yes: WNL, Alert, Oriented ...Motor Strength: WNL Psychiatric: Yes: WNL, Alert, Oriented. No: Agitated, Suicidal Ideation Labs: CBC, BMP 08/27/19 05:42 08/27/19 05:42 INR, PTT INR 1.12 (0.83-1.09) H 08/24/19 10:30 - ....Imaging Other: Report Reviewed Assessment/Plan 84-year-old female with history of end-stage renal disease on hemodialysis, presents with worsening pain and erythema to the right upper extremity site catheter related thrombophlebitis, sepsis HTN s/p hypotension, positive blood cx, sepsis ID and surgery f/u; IV ATB per ID HD per renal prognosis guarded echo r/o vegetations d/w pt and staff 35 min
--- NOTE | 2019-08-27 12:59 | ECHO ---
Name: CONG DOMINGUEZ Exam:Adult Echocardiogram Study Date: 08/27/2019 08:52 AM Age: 84 yrs Reason For Study: R/O Endocarditis only Height: 63 in Weight: 110 lb BSA: 1.5 m2 Procedure A two-dimensional transthoracic echocardiogram with color flow and Doppler was performed in limited v iews only. Limited study to evaluate for evidence of endocarditis. Left Ventricle Left ventricular systolic function is grossly normal. Right Ventricle The right ventricular systolic function is grossly normal. Mitral Valve There is moderate mitral annular calcification. There is mild mitral valve thickening. There is no ve getation seen on the mitral valve. There is trace mitral regurgitation. Tricuspid Valve The tricuspid valve is normal. There is no tricuspid valve vegetation. There is trace tricuspid regur gitation. Aortic Valve There is mild aortic sclerosis.;. The aortic valve opens well. There is no aortic valvular vegetation . Trace aortic regurgitation. Pulmonic Valve The pulmonic valve is not well visualized. Pericardium/Pleura There is no pericardial effusion. Interpretation Summary Limited study to evaluate for evidence of endocarditis. Left ventricular systolic function is grossly normal. There is moderate mitral annular calcification. There is mild mitral valve thickening. There is no vegetation seen on the mitral valve. There is trace mitral regurgitation. The tricuspid valve is normal. There is no tricuspid valve vegetation. There is trace tricuspid regurgitation. There is mild aortic sclerosis.; There is no aortic valvular vegetation. Trace aortic regurgitation. The pulmonic valve is not well visualized. There is no pericardial effusion. MD Aly Hodges 08/27/2019 12:58 PM
--- NOTE | 2019-08-27 13:30 | PN ---
Progress Note, Physician History of Present Illness: stable no new issues - Current Medication List Current Medications: Active Medications Acetaminophen (Tylenol -) 650 mg PO Q6H PRN PRN Reason: FEVER Last Admin: 08/26/19 20:08 Dose: 650 mg Acetaminophen (Tylenol -) 650 mg PO Q6H PRN PRN Reason: FEVER Alprazolam (Xanax -) 0.25 mg PO BID PRN PRN Reason: ANXIETY Last Admin: 08/27/19 10:15 Dose: 0.25 mg Amitriptyline HCl (Elavil -) 50 mg PO [facility] Last Admin: 08/26/19 21:58 Dose: 50 mg Aspirin (Asa -) 81 mg PO DAILY [facility] Last Admin: 08/27/19 09:02 Dose: 81 mg Atorvastatin Calcium (Lipitor -) 80 mg PO [facility] Last Admin: 08/26/19 21:59 Dose: 80 mg Bacitracin (Bacitracin -) 1 applic TP DAILY [facility] Last Admin: 08/27/19 09:04 Dose: 1 applic Calcitriol (Rocaltrol -) 0.25 mcg PO DAILY [facility] Last Admin: 08/27/19 09:02 Dose: 0.25 mcg Calcium Acetate (Phoslo -) 667 mg PO TIDCM [facility] Last Admin: 08/27/19 13:17 Dose: 667 mg Cholestyramine Resin (Questran Light Packet -) 4 gm PO BID [facility] Last Admin: 08/27/19 09:04 Dose: 4 gm Clopidogrel Bisulfate (Plavix -) 75 mg PO DAILY [facility] Last Admin: 08/27/19 09:02 Dose: 75 mg Ferrous Sulfate (Feosol -) 325 mg PO BID [facility] Last Admin: 08/27/19 09:03 Dose: 325 mg Daptomycin 300 mg/ Sodium (Chloride) 50 mls @ 50 mls/hr IVPB [facility]FR [facility]; Protocol Last Admin: 08/26/19 18:03 Dose: 50 mls/hr Losartan Potassium (Cozaar -) 50 mg PO DAILY [facility] Last Admin: 08/27/19 09:03 Dose: 50 mg Nifedipine (Procardia Xl -) 60 mg PO DAILY [facility] Last Admin: 08/27/19 09:02 Dose: 60 mg Ondansetron HCl (Zofran -) 4 mg PO BID PRN PRN Reason: NAUSEA AND/OR VOMITING Last Admin: 08/27/19 09:02 Dose: 4 mg Oxycodone HCl (Roxicodone -) 5 mg PO Q6H PRN PRN Reason: PAIN LEVEL 6-10 Last Admin: 08/24/19 23:57 Dose: 5 mg Sevelamer Carbonate (Renvela -) 1,600 mg PO TIDCM [facility] Last Admin: 08/27/19 13:17 Dose: 1,600 mg - Objective Vital Signs: Vital Signs Temperature 99.1 F 08/27/19 06:04 Pulse Rate 79 08/27/19 07:54 Respiratory Rate 22 H 08/27/19 07:54 Blood Pressure 122/43 L 08/27/19 07:54 O2 Sat by Pulse Oximetry (%) 98 08/27/19 07:53 Constitutional: Yes: No Distress, Calm Cardiovascular: Yes: S1, S2 Respiratory: Yes: Regular, CTA Bilaterally Gastrointestinal: Yes: Normal Bowel Sounds, Soft Musculoskeletal: Yes: WNL Extremities: Yes: Other Wound/Incision: Yes: Dressing Dry and Intact Neurological: Yes: Alert, Oriented Psychiatric: Yes: Alert, Oriented Labs: CBC, BMP 08/27/19 05:42 08/27/19 05:42 INR, PTT INR 1.12 (0.83-1.09) H 08/24/19 10:30 Assessment/Plan Problem List - Problems (1) Cellulitis of right upper extremity Code(s): L03.113 - CELLULITIS OF RIGHT UPPER LIMB (2) Anemia Code(s): D64.9 - ANEMIA, UNSPECIFIED Qualifiers: (3) Anxiety Code(s): F41.9 - ANXIETY DISORDER, UNSPECIFIED (4) CAD (coronary artery disease) Code(s): I25.10 - ATHSCL HEART DISEASE OF [place] CORONARY ARTERY W/O ANG PCTRS Qualifiers: Coronary Disease-Associated Artery/Lesion type: [place] artery [place] vs. transplanted heart: [place] heart Associated angina: without angina Qualified Code(s): I25.10 - Atherosclerotic heart disease of [place] coronary artery without angina pectoris (5) COPD (chronic obstructive pulmonary disease) Code(s): J44.9 - CHRONIC OBSTRUCTIVE PULMONARY DISEASE, UNSPECIFIED Qualifiers: COPD type: unspecified COPD Qualified Code(s): J44.9 - Chronic obstructive pulmonary disease, unspecified (6) Cigarette nicotine dependence Code(s): F17.210 - NICOTINE DEPENDENCE, CIGARETTES, UNCOMPLICATED (7) Diabetes mellitus Code(s): E11.9 - TYPE 2 DIABETES MELLITUS WITHOUT COMPLICATIONS Qualifiers: Diabetes mellitus type: type 2 Diabetes mellitus complication status: with kidney complications Diabetes mellitus complication detail: with chronic kidney disease Chronic kidney disease stage: on chronic dialysis (8) ESRD (end stage renal disease) on dialysis Code(s): N18.6 - END STAGE RENAL DISEASE; Z99.2 - DEPENDENCE ON RENAL DIALYSIS (9) HTN (hypertension) Code(s): I10 - ESSENTIAL (PRIMARY) HYPERTENSION Qualifiers: Hypertension type: unspecified Qualified Code(s): I10 - Essential (primary ) hypertension (10) Hx of antibiotic allergy Code(s): Z88.1 - ALLERGY STATUS TO OTHER ANTIBIOTIC AGENTS STATUS (11) Hyperlipidemia Code(s): E78.5 - HYPERLIPIDEMIA, UNSPECIFIED Qualifiers: Hyperlipidemia type: pure hypercholesterolemia Qualified Code(s): E78.00 - Pure hypercholesterolemia, unspecified; E78.0 - Pure hypercholesterolemia (12) PAD (peripheral artery disease) Code(s): I73.9 - PERIPHERAL VASCULAR DISEASE, UNSPECIFIED (13) S/P femoropopliteal bypass surgery Code(s): Z95.828 - PRESENCE OF OTHER VASCULAR IMPLANTS AND GRAFTS Assessment/Plan 84 y.o. female with PMH of ESRD on HD, CAD, NSTEMI, DM, COPD, active smoker, HTN , PAD s/p Rt fem-pop bypass, Rt toe amp, HTN, HLD presents with complaints of worsening Rt forearm erythema/edema/and tenderness, low grade fever, mild leukocytosis with +blood cultures Gram positive bacteremia Rt forearm cellulitis/abscess s/p drainage ESRD on HD DM CAD COPD Nicotine dependence PAD HTN HLD continue dapt repeat blood cx negative close watch monitor bp wound care
--- NOTE | 2019-08-27 13:34 | PN ---
Teaching Attending Note Name of Resident: Leatha Diallo ATTENDING PHYSICIAN STATEMENT I saw and evaluated the patient. I reviewed the resident's note and discussed the case with the resident. I agree with the resident's findings and plan as documented. SUBJECTIVE: Pt seen and examined in the ICU. Remains hemodynamically stable. Right arm appears to have developing abscess. OBJECTIVE: Vital Signs Period Temp Pulse Resp BP Sys/Banuelos Pulse Ox Last 24 Hr 97.2 F-99.1 F 67-88 16-28 82-164/42-89 98-98 Intake & Output 08/24/19 08/25/19 08/26/19 08/27/19 23:59 23:59 23:59 23:59 Intake Total 276 495 5700 Balance 727 441 5418 Weight 49.895 kg 52.163 kg 51.165 kg Gen: NAD at rest Heart: RRR Lung: decreased breath sounds at the bases Abd: soft, nontender Ext: RUE erythema, induration CBC, BMP 08/27/19 05:42 08/27/19 05:42 Active Medications Acetaminophen (Tylenol -) 650 mg PO Q6H PRN PRN Reason: FEVER Last Admin: 08/26/19 20:08 Dose: 650 mg Acetaminophen (Tylenol -) 650 mg PO Q6H PRN PRN Reason: FEVER Alprazolam (Xanax -) 0.25 mg PO BID PRN PRN Reason: ANXIETY Last Admin: 08/27/19 10:15 Dose: 0.25 mg Amitriptyline HCl (Elavil -) 50 mg PO HS [facility] Last Admin: 08/26/19 21:58 Dose: 50 mg Aspirin (Asa -) 81 mg PO DAILY [facility] Last Admin: 08/27/19 09:02 Dose: 81 mg Atorvastatin Calcium (Lipitor -) 80 mg PO HS [facility] Last Admin: 08/26/19 21:59 Dose: 80 mg Bacitracin (Bacitracin -) 1 applic TP DAILY [facility] Last Admin: 08/27/19 09:04 Dose: 1 applic Calcitriol (Rocaltrol -) 0.25 mcg PO DAILY [facility] Last Admin: 08/27/19 09:02 Dose: 0.25 mcg Calcium Acetate (Phoslo -) 667 mg PO TIDCM [facility] Last Admin: 08/27/19 13:17 Dose: 667 mg Cholestyramine Resin (Questran Light Packet -) 4 gm PO BID [facility] Last Admin: 08/27/19 09:04 Dose: 4 gm Clopidogrel Bisulfate (Plavix -) 75 mg PO DAILY [facility] Last Admin: 08/27/19 09:02 Dose: 75 mg Ferrous Sulfate (Feosol -) 325 mg PO BID [facility] Last Admin: 08/27/19 09:03 Dose: 325 mg Daptomycin 300 mg/ Sodium (Chloride) 50 mls @ 50 mls/hr IVPB MOWEFR [facility]; Protocol Last Admin: 08/26/19 18:03 Dose: 50 mls/hr Losartan Potassium (Cozaar -) 50 mg PO DAILY [facility] Last Admin: 08/27/19 09:03 Dose: 50 mg Nifedipine (Procardia Xl -) 60 mg PO DAILY [facility] Last Admin: 08/27/19 09:02 Dose: 60 mg Ondansetron HCl (Zofran -) 4 mg PO BID PRN PRN Reason: NAUSEA AND/OR VOMITING Last Admin: 08/27/19 09:02 Dose: 4 mg Oxycodone HCl (Roxicodone -) 5 mg PO Q6H PRN PRN Reason: PAIN LEVEL 6-10 Last Admin: 08/24/19 23:57 Dose: 5 mg Sevelamer Carbonate (Renvela -) 1,600 mg PO TIDCM [facility] Last Admin: 08/27/19 13:17 Dose: 1,600 mg ASSESSMENT AND PLAN: Right Arm Abscess/Cellulitis Gram Positive Bacteremia Sepsis ESRD on HD CAD HTN DM Anxiety - continue antibiotics - f/u cultures - surgery f/u - f/u echocardiogram - HD per renal - IVF boluses as needed - wound care - DVT prophylaxis - can monitor on floor
--- NOTE | 2019-08-27 16:55 | PN ---
Progress Note (short form) - Note Progress Note: Renal follow up for ESRD on HD Seen and examined in the ICU awake and alert offers no acute complaints s/p dialysis yesterday Vital Signs Temperature 99 F 08/27/19 10:00 Pulse Rate 73 08/27/19 16:00 Respiratory Rate 20 08/27/19 16:00 Blood Pressure 119/48 L 08/27/19 16:00 O2 Sat by Pulse Oximetry (%) 98 08/27/19 07:53 Intake & Output 08/24/19 08/25/19 08/26/19 08/27/19 23:59 23:59 23:59 23:59 Intake Total 424 455 4591 200 Balance 490 078 4744 200 Weight 49.895 kg 52.163 kg 51.165 kg NAD RRR CTA soft NT/ND no LE edema tunneled HD catheter in place, no cyanosis or clubbing dressing over the right arm CBC, BMP 08/27/19 05:42 08/27/19 05:42 Current Medications Acetaminophen (Tylenol -) 650 mg PO Q6H PRN PRN Reason: FEVER Last Admin: 08/26/19 20:08 Dose: 650 mg Acetaminophen (Tylenol -) 650 mg PO Q6H PRN PRN Reason: FEVER Alprazolam (Xanax -) 0.25 mg PO BID PRN PRN Reason: ANXIETY Last Admin: 08/27/19 10:15 Dose: 0.25 mg Amitriptyline HCl (Elavil -) 50 mg PO [facility] Last Admin: 08/26/19 21:58 Dose: 50 mg Aspirin (Asa -) 81 mg PO DAILY [facility] Last Admin: 08/27/19 09:02 Dose: 81 mg Atorvastatin Calcium (Lipitor -) 80 mg PO [facility] Last Admin: 08/26/19 21:59 Dose: 80 mg Bacitracin (Bacitracin -) 1 applic TP DAILY [facility] Last Admin: 08/27/19 09:04 Dose: 1 applic Calcitriol (Rocaltrol -) 0.25 mcg PO DAILY [facility] Last Admin: 08/27/19 09:02 Dose: 0.25 mcg Calcium Acetate (Phoslo -) 667 mg PO TIDCM [facility] Last Admin: 08/27/19 13:17 Dose: 667 mg Cholestyramine Resin (Questran Light Packet -) 4 gm PO BID [facility] Last Admin: 08/27/19 09:04 Dose: 4 gm Clopidogrel Bisulfate (Plavix -) 75 mg PO DAILY [facility] Last Admin: 08/27/19 09:02 Dose: 75 mg Ferrous Sulfate (Feosol -) 325 mg PO BID [facility] Last Admin: 08/27/19 09:03 Dose: 325 mg Daptomycin 300 mg/ Sodium (Chloride) 50 mls @ 50 mls/hr IVPB MOWEFR [facility]; Protocol Last Admin: 08/26/19 18:03 Dose: 50 mls/hr Losartan Potassium (Cozaar -) 50 mg PO DAILY [facility] Last Admin: 08/27/19 09:03 Dose: 50 mg Nifedipine (Procardia Xl -) 60 mg PO DAILY [facility] Last Admin: 08/27/19 09:02 Dose: 60 mg Ondansetron HCl (Zofran -) 4 mg PO BID PRN PRN Reason: NAUSEA AND/OR VOMITING Last Admin: 08/27/19 09:02 Dose: 4 mg Oxycodone HCl (Roxicodone -) 5 mg PO Q6H PRN PRN Reason: PAIN LEVEL 6-10 Last Admin: 08/24/19 23:57 Dose: 5 mg Sevelamer Carbonate (Renvela -) 1,600 mg PO TIDCM [facility] Last Admin: 08/27/19 13:17 Dose: 1,600 mg 84 year old woman with history of ESRD no HD (), DM, hypertension, CAD with recent NSTEMI, PVD, current smoker presents from home with boil on her right arm. 1. ESRD on HD 2. Abscess on arm 3. Gram positive bacteremia 4. Hypertension 5. CAD no acute need for dialysis today Next dialysis planned for tomorrow. To get IV dapto following dialysis tomorrow. Thank you Quentin Goyal DO
--- NOTE | 2019-08-27 18:17 | PN ---
Physical Exam: SUBJECTIVE: Patient seen and examined in the morning. No acute events overnight, no events on cardiac monitoring. No complaints of chest pain, shortness of breath, abdominal pain, nausea, vomiting, diarrhea. OBJECTIVE: Vital Signs Period Temp Pulse Resp BP Sys/Banuelos Pulse Ox Last 24 Hr 97.2 F-99.1 F 67-88 16-28 82-153/42-113 98-98 GENERAL: Awake, alert, NAD EYES: EOMI LUNGS:Clear to auscultation bilaterally HEART: Regular rate and rhythm, 4/6 systolic murmur ABDOMEN: soft, nontender, normoactive bowel sounds. MUSCULOSKELETAL: Normal range of motion at all joints. No bony deformities or tenderness. No CVA tenderness. UPPER EXTREMITIES: Eyrthema in the right arm, dressing in place. LOWER EXTREMITIES: warm; well-perfused no clubbing/cyanosis or edema . NEUROLOGICAL: Cranial nerves II-XII intact. PSYCHIATRIC: Cooperative. Good eye contact. Appropriate mood and affect. SKIN: Warm, dry, normal turgor, no rashes or lesions noted. Laboratory Results - last 24 hr 08/27/19 08/27/19 05:42 05:42 WBC 6.5 RBC 2.76 L Hgb 8.7 L Hct 25.9 L MCV 93.8 MCH 31.4 MCHC 33.5 RDW 15.6 Plt Count 385 MPV 8.2 Absolute Neuts (auto) 4.4 Neutrophils % 67.7 Lymphocytes % 15.9 Monocytes % 12.8 H Eosinophils % 3.1 Basophils % 0.5 Nucleated RBC % 0 Sodium 140 Potassium 3.7 Chloride 101 Carbon Dioxide 30 Anion Gap 9 BUN 20.5 H Creatinine 5.4 H Est GFR (CKD-EPI)AfAm 7.91 Est GFR (CKD-EPI)NonAf 6.82 Random Glucose 71 L Calcium 8.0 L Phosphorus 3.1 Magnesium 1.8 Total Bilirubin 0.1 L AST 12 L ALT 13 Alkaline Phosphatase 83 Total Protein 6.0 L Albumin 2.5 L Active Medications Generic Name Dose Route Start Last Admin Trade Name Freq PRN Reason Stop Dose Admin Acetaminophen 650 mg 08/24/19 18:30 08/26/19 20:08 Tylenol - PO 650 mg Q6H PRN Administration FEVER Acetaminophen 650 mg 08/26/19 18:18 Tylenol - PO Q6H PRN FEVER Alprazolam 0.25 mg 08/24/19 18:30 08/27/19 10:15 Xanax - PO 0.25 mg BID PRN Administration ANXIETY Amitriptyline HCl 50 mg 08/24/19 22:00 08/26/19 21:58 Elavil - PO 50 mg HS [facility] Administration Aspirin 81 mg 08/25/19 10:00 08/27/19 09:02 Asa - PO 81 mg DAILY [facility] Administration Atorvastatin Calcium 80 mg 08/24/19 22:00 08/26/19 21:59 Lipitor - PO 80 mg HS [facility] Administration Bacitracin 1 applic 08/26/19 10:00 08/27/19 09:04 Bacitracin - TP 1 applic DAILY [facility] Administration Calcitriol 0.25 mcg 08/25/19 10:00 08/27/19 09:02 Rocaltrol - PO 0.25 mcg DAILY [facility] Administration Calcium Acetate 667 mg 08/25/19 08:00 08/27/19 17:57 Phoslo - PO Not Given TIDCM [facility] Cholestyramine Resin 4 gm 08/24/19 22:00 08/27/19 09:04 Questran Light Packet - PO 4 gm BID [facility] Administration Clopidogrel Bisulfate 75 mg 08/25/19 10:00 08/27/19 09:02 Plavix - PO 75 mg DAILY [facility] Administration Ferrous Sulfate 325 mg 08/24/19 22:00 08/27/19 09:03 Feosol - PO 325 mg BID [facility] Administration Daptomycin 300 mg/ Sodium 50 mls @ 50 mls/hr 08/26/19 13:05 08/26/19 18:03 Chloride IVPB 50 mls/hr MOWEFR [facility] Administration Protocol Losartan Potassium 50 mg 08/26/19 14:15 08/27/19 09:03 Cozaar - PO 50 mg DAILY [facility] Administration Nifedipine 60 mg 08/26/19 14:17 08/27/19 09:02 Procardia Xl - PO 60 mg DAILY [facility] Administration Ondansetron HCl 4 mg 08/24/19 18:30 08/27/19 09:02 Zofran - PO 4 mg BID PRN Administration NAUSEA AND/OR VOMITING Oxycodone HCl 5 mg 08/24/19 23:50 08/24/19 23:57 Roxicodone - PO 5 mg Q6H PRN Administration PAIN LEVEL 6-10 Sevelamer Carbonate 1,600 mg 08/25/19 08:00 08/27/19 18:00 Renvela - PO Not Given TIDCM [facility] ASSESSMENT/PLAN: 84F with PMH of ESRD on HD Monday and Monday, DM, HTN, CAD, PVD who presents to the ED with right arm cellulitis, s/p I&D abscess. Neuro/ Psych -AAOx3 -Hx of Anxiety -Continue amitriptyline and xanax Cardiovascular -Hx of HTN, CAD, recent NSTEMI -patient was hypotensive on presentation, refused Central line placement. -Restarted on losartan and nifedipine -Echo shows LV normal size, thickness, and function normal. RV normal in size and function. Mild mitral regurgitation, mild tricuspid regurg. No evidence of endocarditis. -Continue lipitor, ASA, plavix Pulm -Patient was saturating in the low 80's at RA at first -2L NC -Chest x-ray does not show acute pathology Endo - DM stable, diet controlled ID -Patient cultures show presumptive MRSA. -Received Clindamycin, linezolid, and daptomycin -Will redose daptomycin tomorrow with HD -I&D s/p abscess. Surgery follow up for abscess. -Echo did not show vegetations Renal -HD tomorrow -Creatinine of 5 today. -monitor volume status/electrolytes -avoid nephrotoxic agents F: Oral hydration E: Monitor CMP N: Renal diet Dispo: Transfer to med/surg Visit type - Emergency Visit Emergency Visit: Yes ED Registration Date: 08/24/19 Care time: The patient presented to the Emergency Department on the above date and was hospitalized for further evaluation of their emergent condition. - New Patient This patient is new to me today: No - Critical Care Critical Care patient: Yes Total Critical Care Time (in minutes): 45 Critical Care Statement: The care of this patient involved high complexity decision making to prevent further life threatening deterioration of the patient's condition and/or to evaluate & treat vital organ system(s) failure or risk of failure. ATTENDING PHYSICIAN STATEMENT I saw and evaluated the patient. I reviewed the resident's note and discussed the case with the resident. I agree with the resident's findings and plan as documented. SUBJECTIVE: OBJECTIVE: ASSESSMENT AND PLAN:
[2019-08-27] MEDS: AMITRIPTYLINE HCL 25 MG TABLET PO SCH (22:08)
[2019-08-27] MEDS: ACETAMINOPHEN 325 MG TABLET (FP) PO PRN (22:08)
[2019-08-27] MEDS: ATORVASTATIN CA 80 MG TABLET (FP) PO SCH (22:09)
--- NOTE | 2019-08-28 06:39 | PN ---
Progress Note, Physician Chief Complaint: in bed, NAD VSS but not in good spirits, upset about her condition, asked for surgical second opinion (will raji dr Jane) afebrile; no arm pain currently - Current Medication List Current Medications: Active Medications Acetaminophen (Tylenol -) 650 mg PO Q6H PRN PRN Reason: FEVER Last Admin: 08/27/19 22:08 Dose: 650 mg Acetaminophen (Tylenol -) 650 mg PO Q6H PRN PRN Reason: FEVER Alprazolam (Xanax -) 0.25 mg PO BID PRN PRN Reason: ANXIETY Last Admin: 08/27/19 22:08 Dose: 0.25 mg Amitriptyline HCl (Elavil -) 50 mg PO HS [facility] Last Admin: 08/27/19 22:08 Dose: 50 mg Aspirin (Asa -) 81 mg PO DAILY [facility] Last Admin: 08/27/19 09:02 Dose: 81 mg Atorvastatin Calcium (Lipitor -) 80 mg PO HS [facility] Last Admin: 08/27/19 22:09 Dose: 80 mg Bacitracin (Bacitracin -) 1 applic TP DAILY [facility] Last Admin: 08/27/19 09:04 Dose: 1 applic Calcitriol (Rocaltrol -) 0.25 mcg PO DAILY [facility] Last Admin: 08/27/19 09:02 Dose: 0.25 mcg Calcium Acetate (Phoslo -) 667 mg PO TIDCM [facility] Last Admin: 08/27/19 17:57 Dose: Not Given Cholestyramine Resin (Questran Light Packet -) 4 gm PO BID [facility] Last Admin: 08/27/19 22:08 Dose: 4 gm Clopidogrel Bisulfate (Plavix -) 75 mg PO DAILY [facility] Last Admin: 08/27/19 09:02 Dose: 75 mg Epoetin Paco (Epogen -) 20,000 unit IVPUSH ONCE ONE Stop: 08/28/19 06:01 Ferrous Sulfate (Feosol -) 325 mg PO BID [facility] Last Admin: 08/27/19 22:08 Dose: 325 mg Heparin Sodium (Porcine) (Heparin -) 300 unit IVPUSH Q1H [facility] Stop: 08/28/19 08:01 Daptomycin 300 mg/ Sodium (Chloride) 50 mls @ 50 mls/hr IVPB MOWEFR [facility]; Protocol Last Admin: 01/06/20 18:03 Dose: 50 mls/hr Sodium Chloride (Normal Saline -) 250 mls @ 3,000 mls/hr IV PRN PRN PRN Reason: Hypotension during Dialysis Stop: 08/28/19 23:01 Losartan Potassium (Cozaar -) 50 mg PO DAILY [facility] Last Admin: 08/27/19 09:03 Dose: 50 mg Nifedipine (Procardia Xl -) 60 mg PO DAILY [facility] Last Admin: 08/27/19 09:02 Dose: 60 mg Ondansetron HCl (Zofran -) 4 mg PO BID PRN PRN Reason: NAUSEA AND/OR VOMITING Last Admin: 08/27/19 09:02 Dose: 4 mg Oxycodone HCl (Roxicodone -) 5 mg PO Q6H PRN PRN Reason: PAIN LEVEL 6-10 Last Admin: 08/24/19 23:57 Dose: 5 mg Sevelamer Carbonate (Renvela -) 1,600 mg PO TIDCM [facility] Last Admin: 08/27/19 18:00 Dose: Not Given - Objective Vital Signs: Vital Signs Temperature 98.3 F 08/28/19 02:00 Pulse Rate 73 08/28/19 04:00 Respiratory Rate 17 08/28/19 04:00 Blood Pressure 161/62 08/28/19 04:00 O2 Sat by Pulse Oximetry (%) 94 L 08/27/19 20:18 Constitutional: Yes: No Distress Eyes: Yes: Conjunctiva Clear HENT: Yes: Atraumatic Neck: Yes: Supple Cardiovascular: Yes: Regular Rate and Rhythm Respiratory: Yes: CTA Bilaterally Gastrointestinal: Yes: Soft. No: Tenderness Genitourinary: No: Hematuria Musculoskeletal: No: Joint Stiffness, Joint Swelling Extremities: Yes: Other (R forearm wound dressed no bleed no tenderness). No: Cold, Cool Edema: No Integumentary: No: Rash, Venous Stasis Changes Neurological: Yes: Alert ...Motor Strength: WNL Psychiatric: Yes: Alert Labs: CBC, BMP 08/27/19 05:42 08/27/19 05:42 INR, PTT INR 1.12 (0.83-1.09) H 08/24/19 10:30 - ....Imaging Other: Report Reviewed Assessment/Plan 84-year-old female with history of end-stage renal disease on hemodialysis, presents with worsening pain and erythema to the right upper extremity site catheter related thrombophlebitis, sepsis, positive blood cx ID and surgery f/u; IV ATB per ID HD per renal prognosis guarded echo r/o vegetations noted d.w pt and staff; surgery sec opinion dr aJne
[2019-08-28 07:03] LABS: BASO % 0.6 % (0-2.0); EOS % 3.8 % (0-4.5); HEMATOCRIT 27.8 % (32.4-45.2); HEMOGLOBIN 9.2 GM/dL (10.7-15.3); LYMPH % 19.9 % (8-40); MCH 31.6 pg (25.7-33.7); MCHC 33.3 g/dl (32.0-36.0); MEAN CELL VOLUME 94.9 fl (80-96); MEAN PLT VOLUME 7.9 fl (7.5-11.1); MONO % 12.7 % (3.8-10.2); PLATELET COUNT 402 K/MM3 (134-434); RBC 2.93 M/mm3 (3.60-5.2); RDW 15.7 % (11.6-15.6); WHITE BLOOD COUNT 6.5 K/mm3 (4.0-10.0)
[2019-08-28 07:27] LABS: ALBUMIN 2.5 g/dl (3.4-5.0); BILIRUBIN,TOTAL 0.1 mg/dL (0.2-1); BLOOD UREA NITROGEN 30.5 mg/dL (7-18); CALCIUM 8.1 mg/dL (8.5-10.1); CREATININE 7.1 mg/dL (0.55-1.3); MAGNESIUM 1.9 mg/dL (1.8-2.4); POTASSIUM 3.9 mmol/L (3.5-5.1)
[2019-08-28] MEDS: HEPARIN NA (PORCINE) 5,000 UNITS/ML 1ML VIAL IVPUSH SCH ×2 (08:57→09:35)
[2019-08-28] MEDS ORDERED: SODIUM CHLORIDE 250 ML IV PRN (09:00)
[2019-08-28] MEDS ORDERED: EPOETIN ALFA 20,000 UNIT/1 ML VIAL IVPUSH ONE (09:00)
[2019-08-28] MEDS ORDERED: HEPARIN NA (PORCINE) 5,000 UNITS/ML 1ML VIAL IVPUSH SCH (09:00)
[2019-08-28] MEDS ORDERED: ONDANSETRON 4 MG/2 ML VIAL IVPUSH PRN (09:08)
[2019-08-28] MEDS: ONDANSETRON 4 MG TABLET PO PRN ×2 (09:14→23:09)
[2019-08-28 09:51] LABS: ANISOCYTOSIS 1+; MACROCYTOSIS 0; PLATELET ESTIMATE NORMAL
--- NOTE | 2019-08-28 09:52 | PN ---
Physical Exam: SUBJECTIVE: Patient seen and examined refused to let us examine her right arm "only wants a surgeon" to examine her arm no other complaints OBJECTIVE: Vital Signs Period Temp Pulse Resp BP Sys/Banuelos Pulse Ox Last 24 Hr 97.5 F-99 F 71-91 15-22 90-176/48-113 94-99 GENERAL: The patient is alert. HEAD: Normal with no signs of trauma. EYES: PERRL, extraocular movements intact, sclera anicteric, conjunctiva clear. ENT: Ears normal, nares patent, oropharynx clear without exudates, NECK: Trachea midline, full range of motion, supple. LUNGS: Breath sounds equal, clear to auscultation bilaterally. HEART: Regular rate and rhythm, S1, S2 without murmur, rub or gallop. ABDOMEN: Soft, nontender, nondistended, normoactive bowel sounds, no guarding, no rebound, no hepatosplenomegaly, no masses. EXTREMITIES: 2+ pulses, warm, well-perfused, no edema. NEUROLOGICAL: Cranial nerves II through XII grossly intact. Normal speech, gait not observed. SKIN: Warm, dry, normal turgor, no rashes or lesions noted Laboratory Results - last 24 hr 08/28/19 08/28/19 05:40 05:40 WBC 6.5 RBC 2.93 L Hgb 9.2 L Hct 27.8 L MCV 94.9 MCH 31.6 MCHC 33.3 RDW 15.7 H Plt Count 402 MPV 7.9 Absolute Neuts (auto) 4.1 Neutrophils % 63.0 Lymphocytes % 19.9 D Monocytes % 12.7 H Eosinophils % 3.8 Basophils % 0.6 Nucleated RBC % 0 Sodium 140 Potassium 3.9 Chloride 102 Carbon Dioxide 29 Anion Gap 9 BUN 30.5 H Creatinine 7.1 H Est GFR (CKD-EPI)AfAm 5.68 Est GFR (CKD-EPI)NonAf 4.90 Random Glucose 60 L Calcium 8.1 L Magnesium 1.9 Total Bilirubin 0.1 L AST 10 L ALT 12 L Alkaline Phosphatase 83 Total Protein 6.0 L Albumin 2.5 L Active Medications Generic Name Dose Route Start Last Admin Trade Name Freq PRN Reason Stop Dose Admin Acetaminophen 650 mg 08/24/19 18:30 08/27/19 22:08 Tylenol - PO 650 mg Q6H PRN Administration FEVER Acetaminophen 650 mg 08/26/19 18:18 Tylenol - PO Q6H PRN FEVER Alprazolam 0.25 mg 08/24/19 18:30 08/27/19 22:08 Xanax - PO 0.25 mg BID PRN Administration ANXIETY Amitriptyline HCl 50 mg 08/24/19 22:00 08/27/19 22:08 Elavil - PO 50 mg HS [facility] Administration Aspirin 81 mg 08/25/19 10:00 08/27/19 09:02 Asa - PO 81 mg DAILY [facility] Administration Atorvastatin Calcium 80 mg 08/24/19 22:00 08/27/19 22:09 Lipitor - PO 80 mg HS [facility] Administration Bacitracin 1 applic 08/26/19 10:00 08/27/19 09:04 Bacitracin - TP 1 applic DAILY [facility] Administration Calcitriol 0.25 mcg 08/25/19 10:00 08/27/19 09:02 Rocaltrol - PO 0.25 mcg DAILY [facility] Administration Calcium Acetate 667 mg 08/25/19 08:00 08/27/19 17:57 Phoslo - PO Not Given TIDCM [facility] Cholestyramine Resin 4 gm 08/24/19 22:00 08/27/19 22:08 Questran Light Packet - PO 4 gm BID [facility] Administration Clopidogrel Bisulfate 75 mg 08/25/19 10:00 08/27/19 09:02 Plavix - PO 75 mg DAILY [facility] Administration Ferrous Sulfate 325 mg 08/24/19 22:00 08/27/19 22:08 Feosol - PO 325 mg BID [facility] Administration Daptomycin 300 mg/ Sodium 50 mls @ 50 mls/hr 08/26/19 13:05 08/26/19 18:03 Chloride IVPB 50 mls/hr MOWEFR [facility] Administration Protocol Sodium Chloride 250 mls @ 3,000 mls/hr 08/28/19 09:00 Normal Saline - IV 08/29/19 08:59 PRN PRN Hypotension during Dialysis Losartan Potassium 50 mg 08/26/19 14:15 08/27/19 09:03 Cozaar - PO 50 mg DAILY [facility] Administration Nifedipine 60 mg 08/26/19 14:17 08/27/19 09:02 Procardia Xl - PO 60 mg DAILY [facility] Administration Ondansetron HCl 4 mg 08/24/19 18:30 08/28/19 09:14 Zofran - PO 4 mg BID PRN Administration NAUSEA AND/OR VOMITING Ondansetron HCl 4 mg 08/28/19 09:08 Zofran Injection IVPUSH Q6H PRN NAUSEA Oxycodone HCl 5 mg 08/24/19 23:50 08/24/19 23:57 Roxicodone - PO 5 mg Q6H PRN Administration PAIN LEVEL 6-10 Sevelamer Carbonate 1,600 mg 08/25/19 08:00 08/27/19 18:00 Renvela - PO Not Given TIDCM [facility] ASSESSMENT/PLAN: 84F with PMH of ESRD on HD Monday and Monday, DM, HTN, CAD, PVD who presents to the ED with right arm cellulitis, s/p I&D abscess. Neuro/ Psych -AAOx3 -Hx of Anxiety -Continue amitriptyline and xanax Cardiovascular -Hx of HTN, CAD, recent NSTEMI -patient was hypotensive on presentation, refused Central line placement. -Restarted on losartan and nifedipine -Echo shows LV normal size, thickness, and function normal. RV normal in size and function. Mild mitral regurgitation, mild tricuspid regurg. No evidence of endocarditis. -Continue lipitor, ASA, plavix Pulm Pt on room air no respiratory distress Endo - DM stable, diet controlled ID -Patient cultures show presumptive MRSA. -Pt on Daptomycin -I&D s/p abscess. Surgery follow up for abscess. -Echo did not show vegetations Renal -Received HD today -monitor CMP F: Oral hydration E: Monitor CMP N: Renal diet Dispo: Transfer to med/surg Visit type - Emergency Visit Emergency Visit: Yes ED Registration Date: 08/24/19 Care time: The patient presented to the Emergency Department on the above date and was hospitalized for further evaluation of their emergent condition. - New Patient This patient is new to me today: No - Critical Care Critical Care patient: No - Discharge Referral Referred to [facility] Med P.C.: No ATTENDING PHYSICIAN STATEMENT I saw and evaluated the patient. I reviewed the resident's note and discussed the case with the resident. I agree with the resident's findings and plan as documented. SUBJECTIVE: OBJECTIVE: ASSESSMENT AND PLAN:
[2019-08-28] MEDS: SEVELAMER CARBONATE 800 MG TAB (FP) PO SCH ×3 (10:51→17:31)
[2019-08-28] MEDS: CALCIUM ACETATE 667 MG CAPSULE (FP) PO SCH ×3 (10:51→17:32)
[2019-08-28] MEDS: ASPIRIN 81 MG CHEWABLE TABLETS PO SCH (11:43)
[2019-08-28] MEDS: BACITRACIN 15 GM TUBE TOPICAL OINTMENT TP SCH (11:44)
[2019-08-28] MEDS: FERROUS SO4 325 MG TABLET (FP) PO SCH ×2 (11:44→22:16)
[2019-08-28] MEDS: CLOPIDOGREL BISULFATE 75 MG TABLET (FP) PO SCH (11:45)
[2019-08-28] MEDS: CALCITRIOL 0.25 MCG CAPSULE (FP) PO SCH (11:46)
[2019-08-28] MEDS: LOSARTAN POTASSIUM 50 MG TABLET (FP) PO SCH (11:47)
[2019-08-28] MEDS: NIFEdipine E.R 60 MG TABLET PO SCH (11:48)
[2019-08-28] MEDS: CHOLESTYRAMINE/ASPARTAME 4 GM PACKET PO SCH ×2 (11:52→22:17)
[2019-08-28] MEDS: ACETAMINOPHEN 325 MG TABLET (FP) PO PRN ×2 (11:58→23:08)
[2019-08-28] MEDS ORDERED: PT OWN MED DRAWER 7, Y5N ONE (12:26)
--- NOTE | 2019-08-28 12:33 | PN ---
Teaching Attending Note Name of Resident: Roderick Means ATTENDING PHYSICIAN STATEMENT I saw and evaluated the patient. I reviewed the resident's note and discussed the case with the resident. I agree with the resident's findings and plan as documented. SUBJECTIVE: Pt seen and examined in the ICU. Currently being dialyzed. Blood cultures growing MRSA. Refusing to show arm today. OBJECTIVE: Vital Signs Period Temp Pulse Resp BP Sys/Banuelos Pulse Ox Last 24 Hr 97.5 F-98.7 F 71-91 15-22 90-187/48-106 94-99 Intake & Output 08/25/19 08/26/19 08/27/19 08/28/19 23:59 23:59 23:59 23:59 Intake Total 350 1400 200 800 Output Total 1500 Balance 350 1400 200 -700 Weight 52.163 kg 51.165 kg 48.625 kg Gen: NAD at rest Heart: RRR Lung: decreased breath sounds at the bases Abd: soft, nontender Ext: no edema CBC, BMP 08/28/19 05:40 08/28/19 05:40 Active Medications Acetaminophen (Tylenol -) 650 mg PO Q6H PRN PRN Reason: FEVER Last Admin: 08/28/19 11:58 Dose: 650 mg Acetaminophen (Tylenol -) 650 mg PO Q6H PRN PRN Reason: FEVER Alprazolam (Xanax -) 0.25 mg PO BID PRN PRN Reason: ANXIETY Last Admin: 08/27/19 22:08 Dose: 0.25 mg Amitriptyline HCl (Elavil -) 50 mg PO HS [facility] Last Admin: 08/27/19 22:08 Dose: 50 mg Aspirin (Asa -) 81 mg PO DAILY [facility] Last Admin: 08/28/19 11:43 Dose: 81 mg Atorvastatin Calcium (Lipitor -) 80 mg PO HS [facility] Last Admin: 08/27/19 22:09 Dose: 80 mg Bacitracin (Bacitracin -) 1 applic TP DAILY [facility] Last Admin: 08/28/19 11:44 Dose: 1 applic Calcitriol (Rocaltrol -) 0.25 mcg PO DAILY [facility] Last Admin: 08/28/19 11:46 Dose: 0.25 mcg Calcium Acetate (Phoslo -) 667 mg PO TIDCM [facility] Last Admin: 08/28/19 12:01 Dose: 667 mg Cholestyramine Resin (Questran Light Packet -) 4 gm PO BID [facility] Last Admin: 08/28/19 11:52 Dose: 4 gm Clopidogrel Bisulfate (Plavix -) 75 mg PO DAILY [facility] Last Admin: 08/28/19 11:45 Dose: 75 mg Ferrous Sulfate (Feosol -) 325 mg PO BID [facility] Last Admin: 08/28/19 11:44 Dose: 325 mg Daptomycin 300 mg/ Sodium (Chloride) 50 mls @ 50 mls/hr IVPB MOWEFR [facility]; Protocol Last Admin: 08/26/19 18:03 Dose: 50 mls/hr Sodium Chloride (Normal Saline -) 250 mls @ 3,000 mls/hr IV PRN PRN PRN Reason: Hypotension during Dialysis Stop: 08/29/19 08:59 Losartan Potassium (Cozaar -) 50 mg PO DAILY [facility] Last Admin: 08/28/19 11:47 Dose: 50 mg Nifedipine (Procardia Xl -) 60 mg PO DAILY [facility] Last Admin: 08/28/19 11:48 Dose: 60 mg Ondansetron HCl (Zofran -) 4 mg PO BID PRN PRN Reason: NAUSEA AND/OR VOMITING Last Admin: 08/28/19 09:14 Dose: 4 mg Ondansetron HCl (Zofran Injection) 4 mg IVPUSH Q6H PRN PRN Reason: NAUSEA Oxycodone HCl (Roxicodone -) 5 mg PO Q6H PRN PRN Reason: PAIN LEVEL 6-10 Last Admin: 08/24/19 23:57 Dose: 5 mg Sevelamer Carbonate (Renvela -) 1,600 mg PO TIDCM [facility] Last Admin: 08/28/19 12:02 Dose: 1,600 mg ASSESSMENT AND PLAN: Right Arm Abscess/Cellulitis MRSA Bacteremia Sepsis ESRD on HD CAD HTN DM Anxiety - continue antibiotics - f/u cultures - surgery f/u - HD per renal - IVF boluses as needed - wound care - DVT prophylaxis - can monitor on floor
[2019-08-28] MEDS: DAPTOMYCIN 300 MG in SODIUM CHLORIDE 50 ML IVPB SCH (12:51)
--- NOTE | 2019-08-28 13:26 | PN ---
Progress Note, Physician History of Present Illness: stable no new issues - Current Medication List Current Medications: Active Medications Acetaminophen (Tylenol -) 650 mg PO Q6H PRN PRN Reason: FEVER Last Admin: 08/28/19 11:58 Dose: 650 mg Acetaminophen (Tylenol -) 650 mg PO Q6H PRN PRN Reason: FEVER Alprazolam (Xanax -) 0.25 mg PO BID PRN PRN Reason: ANXIETY Last Admin: 08/27/19 22:08 Dose: 0.25 mg Amitriptyline HCl (Elavil -) [address] [facility] Last Admin: 08/27/19 22:08 Dose: 50 mg Aspirin (Asa -) 81 mg PO DAILY [facility] Last Admin: 08/28/19 11:43 Dose: 81 mg Atorvastatin Calcium (Lipitor -) [address] [facility] Last Admin: 08/27/19 22:09 Dose: 80 mg Bacitracin (Bacitracin -) 1 applic TP DAILY [facility] Last Admin: 08/28/19 11:44 Dose: 1 applic Calcitriol (Rocaltrol -) 0.25 mcg PO DAILY [facility] Last Admin: 08/28/19 11:46 Dose: 0.25 mcg Calcium Acetate (Phoslo -) 667 mg PO TIDCM [facility] Last Admin: 08/28/19 12:01 Dose: 667 mg Cholestyramine Resin (Questran Light Packet -) 4 gm PO BID [facility] Last Admin: 08/28/19 11:52 Dose: 4 gm Clopidogrel Bisulfate (Plavix -) 75 mg PO DAILY [facility] Last Admin: 08/28/19 11:45 Dose: 75 mg Ferrous Sulfate (Feosol -) 325 mg PO BID [facility] Last Admin: 08/28/19 11:44 Dose: 325 mg Daptomycin 300 mg/ Sodium (Chloride) 50 mls @ 50 mls/hr IVPB MOWEFR [facility]; Protocol Last Admin: 08/28/19 12:51 Dose: 50 mls/hr Sodium Chloride (Normal Saline -) 250 mls @ 3,000 mls/hr IV PRN PRN PRN Reason: Hypotension during Dialysis Stop: 08/29/19 08:59 Losartan Potassium (Cozaar -) 50 mg PO DAILY [facility] Last Admin: 08/28/19 11:47 Dose: 50 mg Nifedipine (Procardia Xl -) 60 mg PO DAILY [facility] Last Admin: 08/28/19 11:48 Dose: 60 mg Ondansetron HCl (Zofran -) 4 mg PO BID PRN PRN Reason: NAUSEA AND/OR VOMITING Last Admin: 08/28/19 09:14 Dose: 4 mg Ondansetron HCl (Zofran Injection) 4 mg IVPUSH Q6H PRN PRN Reason: NAUSEA Oxycodone HCl (Roxicodone -) 5 mg PO Q6H PRN PRN Reason: PAIN LEVEL 6-10 Last Admin: 08/24/19 23:57 Dose: 5 mg Sevelamer Carbonate (Renvela -) 1,600 mg PO TIDCM [facility] Last Admin: 08/28/19 12:02 Dose: 1,600 mg - Objective Vital Signs: Vital Signs Temperature 97.8 F 08/28/19 10:00 Pulse Rate 77 08/28/19 11:11 Respiratory Rate 18 08/28/19 11:11 Blood Pressure 187/76 H 08/28/19 11:11 O2 Sat by Pulse Oximetry (%) 99 08/28/19 09:00 Constitutional: Yes: No Distress, Calm Cardiovascular: Yes: S1, S2 Respiratory: Yes: Regular, CTA Bilaterally Gastrointestinal: Yes: Normal Bowel Sounds, Soft Musculoskeletal: Yes: WNL Extremities: Yes: Other Wound/Incision: Yes: Dressing Dry and Intact Neurological: Yes: Alert, Oriented Psychiatric: Yes: Alert, Oriented Labs: CBC, BMP 08/28/19 05:40 08/28/19 05:40 INR, PTT INR 1.12 (0.83-1.09) H 08/24/19 10:30 Assessment/Plan Problem List - Problems (1) Cellulitis of right upper extremity Code(s): L03.113 - CELLULITIS OF RIGHT UPPER LIMB (2) Anemia Code(s): D64.9 - ANEMIA, UNSPECIFIED Qualifiers: (3) Anxiety Code(s): F41.9 - ANXIETY DISORDER, UNSPECIFIED (4) CAD (coronary artery disease) Code(s): I25.10 - ATHSCL HEART DISEASE OF [place] CORONARY ARTERY W/O ANG PCTRS Qualifiers: Coronary Disease-Associated Artery/Lesion type: [place] artery [place] vs. transplanted heart: [place] heart Associated angina: without angina Qualified Code(s): I25.10 - Atherosclerotic heart disease of [place] coronary artery without angina pectoris (5) COPD (chronic obstructive pulmonary disease) Code(s): J44.9 - CHRONIC OBSTRUCTIVE PULMONARY DISEASE, UNSPECIFIED Qualifiers: COPD type: unspecified COPD Qualified Code(s): J44.9 - Chronic obstructive pulmonary disease, unspecified (6) Cigarette nicotine dependence Code(s): F17.210 - NICOTINE DEPENDENCE, CIGARETTES, UNCOMPLICATED (7) Diabetes mellitus Code(s): E11.9 - TYPE 2 DIABETES MELLITUS WITHOUT COMPLICATIONS Qualifiers: Diabetes mellitus type: type 2 Diabetes mellitus complication status: with kidney complications Diabetes mellitus complication detail: with chronic kidney disease Chronic kidney disease stage: on chronic dialysis (8) ESRD (end stage renal disease) on dialysis Code(s): N18.6 - END STAGE RENAL DISEASE; Z99.2 - DEPENDENCE ON RENAL DIALYSIS (9) HTN (hypertension) Code(s): I10 - ESSENTIAL (PRIMARY) HYPERTENSION Qualifiers: Hypertension type: unspecified Qualified Code(s): I10 - Essential (primary ) hypertension (10) Hx of antibiotic allergy Code(s): Z88.1 - ALLERGY STATUS TO OTHER ANTIBIOTIC AGENTS STATUS (11) Hyperlipidemia Code(s): E78.5 - HYPERLIPIDEMIA, UNSPECIFIED Qualifiers: Hyperlipidemia type: pure hypercholesterolemia Qualified Code(s): E78.00 - Pure hypercholesterolemia, unspecified; E78.0 - Pure hypercholesterolemia (12) PAD (peripheral artery disease) Code(s): I73.9 - PERIPHERAL VASCULAR DISEASE, UNSPECIFIED (13) S/P femoropopliteal bypass surgery Code(s): Z95.828 - PRESENCE OF OTHER VASCULAR IMPLANTS AND GRAFTS Assessment/Plan 84 y.o. female with PMH of ESRD on HD, CAD, NSTEMI, DM, COPD, active smoker, HTN , PAD s/p Rt fem-pop bypass, Rt toe amp, HTN, HLD presents with complaints of worsening Rt forearm erythema/edema/and tenderness, low grade fever, mild leukocytosis with +blood cultures Gram positive bacteremia Rt forearm cellulitis/abscess s/p drainage ESRD on HD DM CAD COPD Nicotine dependence PAD HTN HLD continue dapt repeat blood cx negative close watch monitor bp wound care
[2019-08-28] MEDS: ALPRAZolam 0.25 MG TABLET PO PRN ×2 (15:52→22:16)
--- NOTE | 2019-08-28 16:50 | PN ---
Progress Note (short form) - Note Progress Note: Renal follow up for ESRD on HD Seen and examined in the ICU awake and alert no acute complaints s/p HD this am Vital Signs Temperature 98.4 F 08/28/19 14:00 Pulse Rate 85 08/28/19 14:00 Respiratory Rate 18 08/28/19 14:00 Blood Pressure 118/105 H 08/28/19 14:00 O2 Sat by Pulse Oximetry (%) 99 08/28/19 09:00 Intake & Output 08/25/19 08/26/19 08/27/19 08/28/19 23:59 23:59 23:59 23:59 Intake Total 350 1400 200 800 Output Total 1500 Balance 350 1400 200 -700 Weight 52.163 kg 51.165 kg 48.625 kg NAD RRR CTA soft NT/ND no LE edema tunneled HD catheter in place, no cyanosis or clubbing dressing over the right arm CBC, BMP 08/28/19 05:40 08/28/19 05:40 Current Medications Acetaminophen (Tylenol -) 650 mg PO Q6H PRN PRN Reason: FEVER Last Admin: 08/28/19 11:58 Dose: 650 mg Acetaminophen (Tylenol -) 650 mg PO Q6H PRN PRN Reason: FEVER Alprazolam (Xanax -) 0.25 mg PO BID PRN PRN Reason: ANXIETY Last Admin: 08/28/19 15:52 Dose: 0.25 mg Amitriptyline HCl (Elavil -) 50 mg PO HS [facility] Last Admin: 08/27/19 22:08 Dose: 50 mg Aspirin (Asa -) 81 mg PO DAILY [facility] Last Admin: 08/28/19 11:43 Dose: 81 mg Atorvastatin Calcium (Lipitor -) 80 mg PO HS [facility] Last Admin: 08/27/19 22:09 Dose: 80 mg Bacitracin (Bacitracin -) 1 applic TP DAILY [facility] Last Admin: 08/28/19 11:44 Dose: 1 applic Calcitriol (Rocaltrol -) 0.25 mcg PO DAILY [facility] Last Admin: 08/28/19 11:46 Dose: 0.25 mcg Calcium Acetate (Phoslo -) 667 mg PO TIDCM [facility] Last Admin: 08/28/19 12:01 Dose: 667 mg Cholestyramine Resin (Questran Light Packet -) 4 gm PO BID [facility] Last Admin: 08/28/19 11:52 Dose: 4 gm Clopidogrel Bisulfate (Plavix -) 75 mg PO DAILY [facility] Last Admin: 08/28/19 11:45 Dose: 75 mg Ferrous Sulfate (Feosol -) 325 mg PO BID [facility] Last Admin: 08/28/19 11:44 Dose: 325 mg Daptomycin 300 mg/ Sodium (Chloride) 50 mls @ 50 mls/hr IVPB MOWEFR [facility]; Protocol Last Admin: 08/28/19 12:51 Dose: 50 mls/hr Sodium Chloride (Normal Saline -) 250 mls @ 3,000 mls/hr IV PRN PRN PRN Reason: Hypotension during Dialysis Stop: 08/29/19 08:59 Losartan Potassium (Cozaar -) 50 mg PO DAILY [facility] Last Admin: 08/28/19 11:47 Dose: 50 mg Nifedipine (Procardia Xl -) 60 mg PO DAILY [facility] Last Admin: 08/28/19 11:48 Dose: 60 mg Ondansetron HCl (Zofran -) 4 mg PO BID PRN PRN Reason: NAUSEA AND/OR VOMITING Last Admin: 08/28/19 09:14 Dose: 4 mg Ondansetron HCl (Zofran Injection) 4 mg IVPUSH Q6H PRN PRN Reason: NAUSEA Oxycodone HCl (Roxicodone -) 5 mg PO Q6H PRN PRN Reason: PAIN LEVEL 6-10 Last Admin: 08/24/19 23:57 Dose: 5 mg Sevelamer Carbonate (Renvela -) 1,600 mg PO TIDCM [facility] Last Admin: 08/28/19 12:02 Dose: 1,600 mg 84 year old woman with history of ESRD no HD (), DM, hypertension, CAD with recent NSTEMI, PVD, current smoker presents from home with boil on her right arm. 1. ESRD on HD 2. Abscess on arm 3. Gram positive bacteremia 4. Hypertension 5. CAD tolerated dialysis today. Continue IV Dapto as per ID f/u repeat cultures Further debridement as per surgery Next dialysis planned for Monday Thank you Quentin Goyal DO
[2019-08-28] MEDS: ATORVASTATIN CA 80 MG TABLET (FP) PO SCH (22:16)
[2019-08-28] MEDS: AMITRIPTYLINE HCL 25 MG TABLET PO SCH (22:16)
--- NOTE | 2019-08-29 06:25 | PN ---
Progress Note, Physician Chief Complaint: no new c/o afebrile awaiting dr Buck loco (d/w dr Jane) - Current Medication List Current Medications: Active Medications Acetaminophen (Tylenol -) 650 mg PO Q6H PRN PRN Reason: FEVER Last Admin: 08/28/19 23:08 Dose: 650 mg Acetaminophen (Tylenol -) 650 mg PO Q6H PRN PRN Reason: FEVER Alprazolam (Xanax -) 0.25 mg PO BID PRN PRN Reason: ANXIETY Last Admin: 08/28/19 22:16 Dose: 0.25 mg Amitriptyline HCl (Elavil -) 50 mg PO [facility] Last Admin: 08/28/19 22:16 Dose: 50 mg Aspirin (Asa -) 81 mg PO DAILY [facility] Last Admin: 08/28/19 11:43 Dose: 81 mg Atorvastatin Calcium (Lipitor -) 80 mg PO [facility] Last Admin: 08/28/19 22:16 Dose: 80 mg Bacitracin (Bacitracin -) 1 applic TP DAILY [facility] Last Admin: 08/28/19 11:44 Dose: 1 applic Calcitriol (Rocaltrol -) 0.25 mcg PO DAILY [facility] Last Admin: 08/28/19 11:46 Dose: 0.25 mcg Calcium Acetate (Phoslo -) 667 mg PO TIDCM [facility] Last Admin: 08/28/19 17:32 Dose: 667 mg Cholestyramine Resin (Questran Light Packet -) 4 gm PO BID [facility] Last Admin: 08/28/19 22:17 Dose: 4 gm Clopidogrel Bisulfate (Plavix -) 75 mg PO DAILY [facility] Last Admin: 08/28/19 11:45 Dose: 75 mg Ferrous Sulfate (Feosol -) 325 mg PO BID [facility] Last Admin: 08/28/19 22:16 Dose: 325 mg Daptomycin 300 mg/ Sodium (Chloride) 50 mls @ 50 mls/hr IVPB MOWEFR [facility]; Protocol Last Admin: 08/28/19 12:51 Dose: 50 mls/hr Sodium Chloride (Normal Saline -) 250 mls @ 3,000 mls/hr IV PRN PRN PRN Reason: Hypotension during Dialysis Stop: 08/29/19 08:59 Losartan Potassium (Cozaar -) 50 mg PO DAILY [facility] Last Admin: 08/28/19 11:47 Dose: 50 mg Nifedipine (Procardia Xl -) 60 mg PO DAILY [facility] Last Admin: 08/28/19 11:48 Dose: 60 mg Ondansetron HCl (Zofran -) 4 mg PO BID PRN PRN Reason: NAUSEA AND/OR VOMITING Last Admin: 08/28/19 23:09 Dose: 4 mg Ondansetron HCl (Zofran Injection) 4 mg IVPUSH Q6H PRN PRN Reason: NAUSEA Oxycodone HCl (Roxicodone -) 5 mg PO Q6H PRN PRN Reason: PAIN LEVEL 6-10 Last Admin: 08/24/19 23:57 Dose: 5 mg Sevelamer Carbonate (Renvela -) 1,600 mg PO TIDCM [facility] Last Admin: 08/28/19 17:31 Dose: 1,600 mg - Objective Vital Signs: Vital Signs Temperature 98.1 F 08/28/19 22:00 Pulse Rate 82 08/28/19 22:00 Respiratory Rate 16 08/28/19 22:00 Blood Pressure 151/55 L 08/28/19 22:00 O2 Sat by Pulse Oximetry (%) 97 08/28/19 21:00 Constitutional: Yes: No Distress Eyes: Yes: Conjunctiva Clear HENT: Yes: Atraumatic Neck: Yes: Supple Cardiovascular: Yes: Regular Rate and Rhythm Respiratory: Yes: Diminished Gastrointestinal: Yes: Soft. No: Tenderness Genitourinary: No: Hematuria Musculoskeletal: Yes: Other (R forearm wound dressed no pain;). No: Joint Stiffness, Joint Swelling Extremities: No: Cold, Cool Edema: No Integumentary: No: Rash, Venous Stasis Changes Neurological: Yes: Alert ...Motor Strength: WNL Psychiatric: Yes: Alert. No: Agitated Labs: CBC, BMP 08/28/19 05:40 08/28/19 05:40 INR, PTT INR 1.12 (0.83-1.09) H 08/24/19 10:30 - ....Imaging Other: Report Reviewed Assessment/Plan 84-year-old female with history of end-stage renal disease on hemodialysis, presents with worsening pain and erythema to the right upper extremity site catheter related thrombophlebitis, sepsis, positive blood cx ID and surgery f/u; IV ATB per ID HD per renal prognosis guarded echo noted surgery dr Buck loco pending d.w pt and staff;
[2019-08-29] MEDS ORDERED: oxyCODONE HCL 5 MG TABLET PO PRN (07:46)
[2019-08-29] MEDS ORDERED: ACETAMINOPHEN 325 MG TABLET (FP) PO PRN (07:46)
[2019-08-29] MEDS: SEVELAMER CARBONATE 800 MG TAB (FP) PO SCH ×3 (10:02→17:21)
[2019-08-29] MEDS: NIFEdipine E.R 60 MG TABLET PO SCH (10:02)
[2019-08-29] MEDS: FERROUS SO4 325 MG TABLET (FP) PO SCH ×2 (10:02→17:21)
[2019-08-29] MEDS: CALCITRIOL 0.25 MCG CAPSULE (FP) PO SCH (10:02)
[2019-08-29] MEDS: ALPRAZolam 0.25 MG TABLET PO PRN ×2 (10:02→22:58)
[2019-08-29] MEDS: ASPIRIN 81 MG CHEWABLE TABLETS PO SCH (10:02)
[2019-08-29] MEDS: CLOPIDOGREL BISULFATE 75 MG TABLET (FP) PO SCH (10:02)
[2019-08-29] MEDS: CALCIUM ACETATE 667 MG CAPSULE (FP) PO SCH ×3 (10:03→17:22)
[2019-08-29] MEDS: BACITRACIN 15 GM TUBE TOPICAL OINTMENT TP SCH (10:03)
[2019-08-29] MEDS: CHOLESTYRAMINE/ASPARTAME 4 GM PACKET PO SCH ×2 (10:03→22:59)
[2019-08-29] MEDS: LOSARTAN POTASSIUM 50 MG TABLET (FP) PO SCH (10:03)
--- NOTE | 2019-08-29 13:33 | PN ---
Progress Note, Physician History of Present Illness: STABLE no new issues - Current Medication List Current Medications: Active Medications Acetaminophen (Tylenol -) 650 mg PO Q6H PRN PRN Reason: FEVER Alprazolam (Xanax -) 0.25 mg PO BID PRN PRN Reason: ANXIETY Last Admin: 08/29/19 10:02 Dose: 0.25 mg Amitriptyline HCl (Elavil -) 50 mg PO [facility] Aspirin (Asa -) 81 mg PO DAILY [facility] Last Admin: 08/29/19 10:02 Dose: 81 mg Atorvastatin Calcium (Lipitor -) 80 mg PO HS [facility] Bacitracin (Bacitracin -) 1 applic TP DAILY [facility] Last Admin: 08/29/19 10:03 Dose: 1 applic Calcitriol (Rocaltrol -) 0.25 mcg PO DAILY [facility] Last Admin: 08/29/19 10:02 Dose: 0.25 mcg Calcium Acetate (Phoslo -) 667 mg PO TIDCM [facility] Last Admin: 08/29/19 12:05 Dose: 667 mg Cholestyramine Resin (Questran Light Packet -) 4 gm PO BID [facility] Last Admin: 08/29/19 10:03 Dose: Not Given Clopidogrel Bisulfate (Plavix -) 75 mg PO DAILY [facility] Last Admin: 08/29/19 10:02 Dose: 75 mg Ferrous Sulfate (Feosol -) 325 mg PO BIDWM [facility] Last Admin: 08/29/19 10:02 Dose: 325 mg Daptomycin 300 mg/ Sodium (Chloride) 50 mls @ 50 mls/hr IVPB MOWEFR [facility]; Protocol Losartan Potassium (Cozaar -) 50 mg PO DAILY [facility] Last Admin: 08/29/19 10:03 Dose: 50 mg Nifedipine (Procardia Xl -) 60 mg PO DAILY [facility] Last Admin: 08/29/19 10:02 Dose: 60 mg Ondansetron HCl (Zofran Injection) 4 mg IVPUSH Q6H PRN PRN Reason: NAUSEA Ondansetron HCl (Zofran -) 4 mg PO BID PRN PRN Reason: NAUSEA AND/OR VOMITING Oxycodone HCl (Roxicodone -) 5 mg PO Q6H PRN PRN Reason: PAIN LEVEL 6-10 Sevelamer Carbonate (Renvela -) 1,600 mg PO TIDCM [facility] Last Admin: 08/29/19 12:05 Dose: 1,600 mg - Objective Vital Signs: Vital Signs Temperature 98.5 F 08/29/19 10:00 Pulse Rate 84 08/29/19 10:00 Respiratory Rate 16 08/29/19 10:00 Blood Pressure 160/77 08/29/19 10:00 O2 Sat by Pulse Oximetry (%) 97 08/29/19 10:00 Constitutional: Yes: No Distress, Calm Respiratory: Yes: Regular, CTA Bilaterally Gastrointestinal: Yes: Normal Bowel Sounds, Soft Musculoskeletal: Yes: WNL Extremities: Yes: Erythema (of the hand), Other Integumentary: Yes: Erythema Wound/Incision: Yes: Dressing Dry and Intact Neurological: Yes: Alert, Oriented Labs: CBC, BMP 08/28/19 05:40 08/28/19 05:40 INR, PTT INR 1.12 (0.83-1.09) H 08/24/19 10:30 Assessment/Plan Problem List - Problems (1) Cellulitis of right upper extremity Code(s): L03.113 - CELLULITIS OF RIGHT UPPER LIMB (2) Anemia Code(s): D64.9 - ANEMIA, UNSPECIFIED Qualifiers: (3) Anxiety Code(s): F41.9 - ANXIETY DISORDER, UNSPECIFIED (4) CAD (coronary artery disease) Code(s): I25.10 - ATHSCL HEART DISEASE OF [place] CORONARY ARTERY W/O ANG PCTRS Qualifiers: Coronary Disease-Associated Artery/Lesion type: [place] artery [place] vs. transplanted heart: [place] heart Associated angina: without angina Qualified Code(s): I25.10 - Atherosclerotic heart disease of [place] coronary artery without angina pectoris (5) COPD (chronic obstructive pulmonary disease) Code(s): J44.9 - CHRONIC OBSTRUCTIVE PULMONARY DISEASE, UNSPECIFIED Qualifiers: COPD type: unspecified COPD Qualified Code(s): J44.9 - Chronic obstructive pulmonary disease, unspecified (6) Cigarette nicotine dependence Code(s): F17.210 - NICOTINE DEPENDENCE, CIGARETTES, UNCOMPLICATED (7) Diabetes mellitus Code(s): E11.9 - TYPE 2 DIABETES MELLITUS WITHOUT COMPLICATIONS Qualifiers: Diabetes mellitus type: type 2 Diabetes mellitus complication status: with kidney complications Diabetes mellitus complication detail: with chronic kidney disease Chronic kidney disease stage: on chronic dialysis (8) ESRD (end stage renal disease) on dialysis Code(s): N18.6 - END STAGE RENAL DISEASE; Z99.2 - DEPENDENCE ON RENAL DIALYSIS (9) HTN (hypertension) Code(s): I10 - ESSENTIAL (PRIMARY) HYPERTENSION Qualifiers: Hypertension type: unspecified Qualified Code(s): I10 - Essential (primary ) hypertension (10) Hx of antibiotic allergy Code(s): Z88.1 - ALLERGY STATUS TO OTHER ANTIBIOTIC AGENTS STATUS (11) Hyperlipidemia Code(s): E78.5 - HYPERLIPIDEMIA, UNSPECIFIED Qualifiers: Hyperlipidemia type: pure hypercholesterolemia Qualified Code(s): E78.00 - Pure hypercholesterolemia, unspecified; E78.0 - Pure hypercholesterolemia (12) PAD (peripheral artery disease) Code(s): I73.9 - PERIPHERAL VASCULAR DISEASE, UNSPECIFIED (13) S/P femoropopliteal bypass surgery Code(s): Z95.828 - PRESENCE OF OTHER VASCULAR IMPLANTS AND GRAFTS Assessment/Plan 84 y.o. female with PMH of ESRD on HD, CAD, NSTEMI, DM, COPD, active smoker, HTN , PAD s/p Rt fem-pop bypass, Rt toe amp, HTN, HLD presents with complaints of worsening Rt forearm erythema/edema/and tenderness, low grade fever, mild leukocytosis with +blood cultures Gram positive bacteremia Rt forearm cellulitis/abscess s/p drainage ESRD on HD DM CAD COPD Nicotine dependence PAD HTN HLD continue dapt repeat blood cx negative close watch monitor bp wound care
[2019-08-29] MEDS: AMITRIPTYLINE HCL 25 MG TABLET PO SCH (22:58)
[2019-08-29] MEDS: ATORVASTATIN CA 80 MG TABLET (FP) PO SCH (22:58)
[2019-08-30] MEDS: FERROUS SO4 325 MG TABLET (FP) PO SCH ×2 (09:06→18:01)
[2019-08-30] MEDS: CALCIUM ACETATE 667 MG CAPSULE (FP) PO SCH ×3 (09:07→18:01)
[2019-08-30] MEDS: SEVELAMER CARBONATE 800 MG TAB (FP) PO SCH ×3 (09:08→18:01)
[2019-08-30] MEDS: NIFEdipine E.R 60 MG TABLET PO SCH (09:20)
[2019-08-30] MEDS: LOSARTAN POTASSIUM 50 MG TABLET (FP) PO SCH (09:20)
[2019-08-30] MEDS: ONDANSETRON 4 MG TABLET PO PRN (10:17)
[2019-08-30] MEDS: CHOLESTYRAMINE/ASPARTAME 4 GM PACKET PO SCH ×2 (11:04→21:58)
[2019-08-30] MEDS: CALCITRIOL 0.25 MCG CAPSULE (FP) PO SCH (11:04)
[2019-08-30] MEDS: ASPIRIN 81 MG CHEWABLE TABLETS PO SCH (11:05)
[2019-08-30] MEDS: CLOPIDOGREL BISULFATE 75 MG TABLET (FP) PO SCH (11:11)
--- NOTE | 2019-08-30 11:41 | PN ---
Progress Note, Physician History of Present Illness: stable patients dressing removed induration noted extending above - Current Medication List Current Medications: Active Medications Acetaminophen (Tylenol -) 650 mg PO Q6H PRN PRN Reason: FEVER Alprazolam (Xanax -) 0.25 mg PO BID PRN PRN Reason: ANXIETY Last Admin: 08/29/19 22:58 Dose: 0.25 mg Amitriptyline HCl (Elavil -) 50 mg PO HS [facility] Last Admin: 08/29/19 22:58 Dose: 50 mg Aspirin (Asa -) 81 mg PO DAILY [facility] Last Admin: 08/30/19 11:05 Dose: 81 mg Atorvastatin Calcium (Lipitor -) 80 mg PO HS [facility] Last Admin: 08/29/19 22:58 Dose: 80 mg Bacitracin (Bacitracin -) 1 applic TP DAILY [facility] Last Admin: 08/29/19 10:03 Dose: 1 applic Calcitriol (Rocaltrol -) 0.25 mcg PO DAILY [facility] Last Admin: 08/30/19 11:04 Dose: 0.25 mcg Calcium Acetate (Phoslo -) 667 mg PO TIDCM [facility] Last Admin: 08/30/19 09:07 Dose: 667 mg Cholestyramine Resin (Questran Light Packet -) 4 gm PO BID [facility] Last Admin: 08/30/19 11:04 Dose: 4 gm Clopidogrel Bisulfate (Plavix -) 75 mg PO DAILY [facility] Last Admin: 08/30/19 11:11 Dose: 75 mg Epoetin Paco (Epogen -) 10,000 unit IVPUSH ONCE ONE Stop: 08/30/19 11:35 Ferrous Sulfate (Feosol -) 325 mg PO BIDWM [facility] Last Admin: 08/30/19 09:06 Dose: 325 mg Daptomycin 300 mg/ Sodium (Chloride) 50 mls @ 50 mls/hr IVPB MOWEFR [facility]; Protocol Sodium Chloride (Normal Saline -) 250 mls @ 3,000 mls/hr IV PRN PRN PRN Reason: Hypotension during Dialysis Stop: 08/31/19 11:33 Sodium Chloride (Normal Saline -) 250 mls @ 3,000 mls/hr IV PRN PRN PRN Reason: Hypotension during Dialysis Stop: 08/31/19 11:34 Sodium Chloride (Normal Saline -) 250 mls @ 3,000 mls/hr IV PRN PRN PRN Reason: Hypotension during Dialysis Stop: 08/31/19 11:35 Losartan Potassium (Cozaar -) 50 mg PO DAILY [facility] Last Admin: 08/30/19 09:20 Dose: 50 mg Nifedipine (Procardia Xl -) 60 mg PO DAILY [facility] Last Admin: 08/30/19 09:20 Dose: 60 mg Ondansetron HCl (Zofran Injection) 4 mg IVPUSH Q6H PRN PRN Reason: NAUSEA Ondansetron HCl (Zofran -) 4 mg PO BID PRN PRN Reason: NAUSEA AND/OR VOMITING Last Admin: 08/30/19 10:17 Dose: 4 mg Oxycodone HCl (Roxicodone -) 5 mg PO Q6H PRN PRN Reason: PAIN LEVEL 6-10 Sevelamer Carbonate (Renvela -) 1,600 mg PO TIDCM [facility] Last Admin: 08/30/19 09:08 Dose: 1,600 mg - Objective Vital Signs: Vital Signs Temperature 98.2 F 08/30/19 10:18 Pulse Rate 94 H 08/30/19 10:18 Respiratory Rate 18 08/30/19 10:18 Blood Pressure 128/70 08/30/19 10:18 O2 Sat by Pulse Oximetry (%) 97 08/29/19 21:00 Constitutional: Yes: No Distress, Calm Cardiovascular: Yes: S1, S2 Respiratory: Yes: Regular, CTA Bilaterally Gastrointestinal: Yes: Normal Bowel Sounds, Soft Musculoskeletal: Yes: WNL Extremities: Yes: Erythema, Other Wound/Incision: Yes: Dressing Removed Neurological: Yes: Alert, Oriented Psychiatric: Yes: Alert, Oriented Labs: CBC, BMP 08/28/19 05:40 08/28/19 05:40 INR, PTT INR 1.12 (0.83-1.09) H 08/24/19 10:30 Assessment/Plan Problem List - Problems (1) Cellulitis of right upper extremity Code(s): L03.113 - CELLULITIS OF RIGHT UPPER LIMB (2) Anemia Code(s): D64.9 - ANEMIA, UNSPECIFIED Qualifiers: (3) Anxiety Code(s): F41.9 - ANXIETY DISORDER, UNSPECIFIED (4) CAD (coronary artery disease) Code(s): I25.10 - ATHSCL HEART DISEASE OF [place] CORONARY ARTERY W/O ANG PCTRS Qualifiers: Coronary Disease-Associated Artery/Lesion type: [place] artery [place] vs. transplanted heart: [place] heart Associated angina: without angina Qualified Code(s): I25.10 - Atherosclerotic heart disease of [place] coronary artery without angina pectoris (5) COPD (chronic obstructive pulmonary disease) Code(s): J44.9 - CHRONIC OBSTRUCTIVE PULMONARY DISEASE, UNSPECIFIED Qualifiers: COPD type: unspecified COPD Qualified Code(s): J44.9 - Chronic obstructive pulmonary disease, unspecified (6) Cigarette nicotine dependence Code(s): F17.210 - NICOTINE DEPENDENCE, CIGARETTES, UNCOMPLICATED (7) Diabetes mellitus Code(s): E11.9 - TYPE 2 DIABETES MELLITUS WITHOUT COMPLICATIONS Qualifiers: Diabetes mellitus type: type 2 Diabetes mellitus complication status: with kidney complications Diabetes mellitus complication detail: with chronic kidney disease Chronic kidney disease stage: on chronic dialysis (8) ESRD (end stage renal disease) on dialysis Code(s): N18.6 - END STAGE RENAL DISEASE; Z99.2 - DEPENDENCE ON RENAL DIALYSIS (9) HTN (hypertension) Code(s): I10 - ESSENTIAL (PRIMARY) HYPERTENSION Qualifiers: Hypertension type: unspecified Qualified Code(s): I10 - Essential (primary ) hypertension (10) Hx of antibiotic allergy Code(s): Z88.1 - ALLERGY STATUS TO OTHER ANTIBIOTIC AGENTS STATUS (11) Hyperlipidemia Code(s): E78.5 - HYPERLIPIDEMIA, UNSPECIFIED Qualifiers: Hyperlipidemia type: pure hypercholesterolemia Qualified Code(s): E78.00 - Pure hypercholesterolemia, unspecified; E78.0 - Pure hypercholesterolemia (12) PAD (peripheral artery disease) Code(s): I73.9 - PERIPHERAL VASCULAR DISEASE, UNSPECIFIED (13) S/P femoropopliteal bypass surgery Code(s): Z95.828 - PRESENCE OF OTHER VASCULAR IMPLANTS AND GRAFTS Assessment/Plan 84 y.o. female with PMH of ESRD on HD, CAD, NSTEMI, DM, COPD, active smoker, HTN , PAD s/p Rt fem-pop bypass, Rt toe amp, HTN, HLD presents with complaints of worsening Rt forearm erythema/edema/and tenderness, low grade fever, mild leukocytosis with +blood cultures Gram positive bacteremia Rt forearm cellulitis/abscess s/p drainage ESRD on HD DM CAD COPD Nicotine dependence PAD HTN HLD continue dapt wound needs to be looked at also induration above the original wound present worried if it is forming something
[2019-08-30 13:04] LABS: HEMOGLOBIN 9.4 GM/dL (10.7-15.3); MCHC 32.4 g/dl (32.0-36.0); MEAN CELL VOLUME 95.8 fl (80-96); MEAN PLT VOLUME 8.2 fl (7.5-11.1); PLATELET COUNT 473 K/MM3 (134-434); RBC 3.03 M/mm3 (3.60-5.2); WHITE BLOOD COUNT 15.8 K/mm3 (4.0-10.0)
--- NOTE | 2019-08-30 13:14 | PN ---
Progress Note, Physician Chief Complaint: in bed ISRA GREEN some pain to be seen by sx dr Jane - Current Medication List Current Medications: Active Medications Acetaminophen (Tylenol -) 650 mg PO Q6H PRN PRN Reason: FEVER Alprazolam (Xanax -) 0.25 mg PO BID PRN PRN Reason: ANXIETY Last Admin: 08/29/19 22:58 Dose: 0.25 mg Amitriptyline HCl (Elavil -) 50 mg PO [facility] Last Admin: 08/29/19 22:58 Dose: 50 mg Aspirin (Asa -) 81 mg PO DAILY [facility] Last Admin: 08/30/19 11:05 Dose: 81 mg Atorvastatin Calcium (Lipitor -) 80 mg PO HS [facility]S [facility] Last Admin: 08/29/19 22:58 Dose: 80 mg Bacitracin (Bacitracin -) 1 applic TP DAILY [facility]S [facility] Last Admin: 08/29/19 10:03 Dose: 1 applic Calcitriol (Rocaltrol -) 0.25 mcg PO DAILY [facility]S [facility] Last Admin: 08/30/19 11:04 Dose: 0.25 mcg Calcium Acetate (Phoslo -) 667 mg PO TIDCM [facility]S [facility] Last Admin: 08/30/19 09:07 Dose: 667 mg Cholestyramine Resin (Questran Light Packet -) 4 gm PO BID [facility]S [facility] Last Admin: 08/30/19 11:04 Dose: 4 gm Clopidogrel Bisulfate (Plavix -) 75 mg PO DAILY [facility]S [facility] Last Admin: 08/30/19 11:11 Dose: 75 mg Epoetin Paco (Epogen -) 10,000 unit IVPUSH ONCE ONE Stop: 08/30/19 11:35 Ferrous Sulfate (Feosol -) 325 mg PO BIDWM [facility] 234 BEDS [facility] Last Admin: 08/30/19 09:06 Dose: 325 mg Daptomycin 300 mg/ Sodium (Chloride) 50 mls @ 50 mls/hr IVPB MOWEFR [facility] 234 BEDS AT [facility]; Protocol Sodium Chloride (Normal Saline -) 250 mls @ 3,000 mls/hr IV PRN PRN PRN Reason: Hypotension during Dialysis Stop: 08/31/19 11:33 Sodium Chloride (Normal Saline -) 250 mls @ 3,000 mls/hr IV PRN PRN PRN Reason: Hypotension during Dialysis Stop: 08/31/19 11:34 Sodium Chloride (Normal Saline -) 250 mls @ 3,000 mls/hr IV PRN PRN PRN Reason: Hypotension during Dialysis Stop: 08/31/19 11:35 Losartan Potassium (Cozaar -) 50 mg PO DAILY [facility]S [facility] Last Admin: 08/30/19 09:20 Dose: 50 mg Nifedipine (Procardia Xl -) 60 mg PO DAILY [facility]S [facility] Last Admin: 08/30/19 09:20 Dose: 60 mg Ondansetron HCl (Zofran Injection) 4 mg IVPUSH Q6H PRN PRN Reason: NAUSEA Ondansetron HCl (Zofran -) 4 mg PO BID PRN PRN Reason: NAUSEA AND/OR VOMITING Last Admin: 08/30/19 10:17 Dose: 4 mg Oxycodone HCl (Roxicodone -) 5 mg PO Q6H PRN PRN Reason: PAIN LEVEL 6-10 Sevelamer Carbonate (Renvela -) 1,600 mg PO TIDCM [facility] 234 BEDS [facility] Last Admin: 08/30/19 09:08 Dose: 1,600 mg - Objective Vital Signs: Vital Signs Temperature 98.2 F 08/30/19 10:18 Pulse Rate 94 H 08/30/19 10:18 Respiratory Rate 18 08/30/19 10:18 Blood Pressure 128/70 08/30/19 10:18 O2 Sat by Pulse Oximetry (%) 98 08/30/19 09:00 Constitutional: Yes: No Distress, Anxious Eyes: Yes: Conjunctiva Clear HENT: Yes: Atraumatic Neck: Yes: Supple Cardiovascular: Yes: Regular Rate and Rhythm Respiratory: Yes: CTA Bilaterally Gastrointestinal: Yes: Soft Musculoskeletal: No: Joint Stiffness, Joint Swelling Extremities: Yes: Other (RUE induration above the I&D site). No: Cold, Cool Edema: No Integumentary: No: Rash Neurological: Yes: WNL, Alert, Oriented ...Motor Strength: WNL Psychiatric: Yes: WNL, Alert, Oriented. No: Agitated, Suicidal Ideation Labs: CBC, BMP 08/30/19 12:50 INR, PTT INR 1.12 (0.83-1.09) H 08/24/19 10:30 - ....Imaging Other: Report Reviewed Assessment/Plan 84-year-old female with history of end-stage renal disease on hemodialysis, presents with worsening pain and erythema to the right upper extremity site catheter related thrombophlebitis, sepsis, positive blood cx ID and surgery f/u; IV ATB per ID HD per renal prognosis guarded echo noted surgery dr Buck loco pending d.w pt and staff;
--- NOTE | 2019-08-30 13:30 | PN ---
Progress Note (short form) - Note Progress Note: Renal follow up for ESRD on HD Seen and examined at the bedside awake and alert she is unhappy that her arm is still red and swollen denies any chest pain, fever, chills, N/V Vital Signs Temperature 98.2 F 08/30/19 10:18 Pulse Rate 94 H 08/30/19 10:18 Respiratory Rate 18 08/30/19 10:18 Blood Pressure 128/70 08/30/19 10:18 O2 Sat by Pulse Oximetry (%) 98 08/30/19 09:00 Intake & Output 08/27/19 08/28/19 08/29/19 08/30/19 23:59 23:59 23:59 23:59 Intake Total 200 1570 890 200 Output Total 1500 Balance 200 70 890 200 Weight 51.165 kg 48.625 kg NAD RRR CTA soft NT/ND no LE edema tunneled HD catheter in place, no cyanosis or clubbing dressing over the right arm CBC, BMP 08/30/19 12:50 Current Medications Acetaminophen (Tylenol -) 650 mg PO Q6H PRN PRN Reason: FEVER Alprazolam (Xanax -) 0.25 mg PO BID PRN PRN Reason: ANXIETY Last Admin: 08/29/19 22:58 Dose: 0.25 mg Amitriptyline HCl (Elavil -) 50 mg PO HS [facility] Last Admin: 08/29/19 22:58 Dose: 50 mg Aspirin (Asa -) 81 mg PO DAILY [facility] Last Admin: 08/30/19 11:05 Dose: 81 mg Atorvastatin Calcium (Lipitor -) 80 mg PO HS [facility] Last Admin: 08/29/19 22:58 Dose: 80 mg Bacitracin (Bacitracin -) 1 applic TP DAILY [facility] Last Admin: 08/29/19 10:03 Dose: 1 applic Calcitriol (Rocaltrol -) 0.25 mcg PO DAILY [facility] Last Admin: 08/30/19 11:04 Dose: 0.25 mcg Calcium Acetate (Phoslo -) 667 mg PO TIDCM [facility] Last Admin: 08/30/19 09:07 Dose: 667 mg Cholestyramine Resin (Questran Light Packet -) 4 gm PO BID [facility] Last Admin: 08/30/19 11:04 Dose: 4 gm Clopidogrel Bisulfate (Plavix -) 75 mg PO DAILY [facility] Last Admin: 08/30/19 11:11 Dose: 75 mg Epoetin Paco (Epogen -) 10,000 unit IVPUSH ONCE ONE Stop: 08/30/19 11:35 Ferrous Sulfate (Feosol -) 325 mg PO BIDWM [facility] Last Admin: 08/30/19 09:06 Dose: 325 mg Daptomycin 300 mg/ Sodium (Chloride) 50 mls @ 50 mls/hr IVPB MOWEFR [facility]; Protocol Sodium Chloride (Normal Saline -) 250 mls @ 3,000 mls/hr IV PRN PRN PRN Reason: Hypotension during Dialysis Stop: 08/31/19 11:33 Sodium Chloride (Normal Saline -) 250 mls @ 3,000 mls/hr IV PRN PRN PRN Reason: Hypotension during Dialysis Stop: 08/31/19 11:34 Sodium Chloride (Normal Saline -) 250 mls @ 3,000 mls/hr IV PRN PRN PRN Reason: Hypotension during Dialysis Stop: 08/31/19 11:35 Losartan Potassium (Cozaar -) 50 mg PO DAILY [facility] Last Admin: 08/30/19 09:20 Dose: 50 mg Nifedipine (Procardia Xl -) 60 mg PO DAILY [facility] Last Admin: 08/30/19 09:20 Dose: 60 mg Ondansetron HCl (Zofran Injection) 4 mg IVPUSH Q6H PRN PRN Reason: NAUSEA Ondansetron HCl (Zofran -) 4 mg PO BID PRN PRN Reason: NAUSEA AND/OR VOMITING Last Admin: 08/30/19 10:17 Dose: 4 mg Oxycodone HCl (Roxicodone -) 5 mg PO Q6H PRN PRN Reason: PAIN LEVEL 6-10 Sevelamer Carbonate (Renvela -) 1,600 mg PO TIDCM [facility] Last Admin: 08/30/19 09:08 Dose: 1,600 mg 84 year old woman with history of ESRD no HD (), DM, hypertension, CAD with recent NSTEMI, PVD, current smoker presents from home with boil on her right arm. 1. ESRD on HD 2. Abscess on arm 3. Gram positive bacteremia 4. Hypertension 5. CAD 6. Anemia For dialysis today with UF as tolerated Continue IV Dapto as per ID f/u repeat cultures Further debridement as per surgery Next dialysis planned for Monday will give JACOB with HD for anemia Thank you Quentin Goyal DO
[2019-08-30 13:34] LABS: BLOOD UREA NITROGEN 25.1 mg/dL (7-18); CALCIUM 8.9 mg/dL (8.5-10.1); CREATININE 6.3 mg/dL (0.55-1.3); POTASSIUM 4.5 mmol/L (3.5-5.1)
[2019-08-30] MEDS ORDERED: EPOETIN ALFA 10,000 UNIT/1 ML VIAL IVPUSH ONE (14:00)
[2019-08-30] MEDS ORDERED: PT OWN MED DRAWER 7, Y5N ONE (14:19)
[2019-08-30 15:31] VITALS: BMI 18.9
--- NOTE | 2019-08-30 15:33 | PN ---
Progress Note (short form) - Note Progress Note: [facility] Pt seen and examined during HD. S/P right forearm I&D by general surgery Pt had a IV there and now has phlebitis. There is a second area that is indurated. Will continue bacitracin, and start warm compresses 6 times a day for a duration of 10 min each. Will re-evaluate on monday, and if not better, will need drainage. Cont IV antibiotics with HD Bob Jane DO
[2019-08-30] MEDS ORDERED: SODIUM CHLORIDE 250 ML IV PRN ×3 (15:48→15:49)
[2019-08-30] MEDS: ALPRAZolam 0.25 MG TABLET PO PRN (16:12)
[2019-08-30] MEDS: DAPTOMYCIN 300 MG in SODIUM CHLORIDE 50 ML IVPB SCH (16:50)
[2019-08-30] MEDS: BACITRACIN 15 GM TUBE TOPICAL OINTMENT TP SCH (17:31)
[2019-08-30] MEDS: ATORVASTATIN CA 80 MG TABLET (FP) PO SCH (21:58)
[2019-08-30] MEDS: AMITRIPTYLINE HCL 25 MG TABLET PO SCH (21:58)
[2019-08-30] MEDS: ACETAMINOPHEN 325 MG TABLET (FP) PO PRN (22:56)
[2019-08-31] MEDS: SEVELAMER CARBONATE 800 MG TAB (FP) PO SCH ×3 (09:12→17:31)
[2019-08-31] MEDS: FERROUS SO4 325 MG TABLET (FP) PO SCH ×2 (09:13→17:31)
[2019-08-31] MEDS: LOSARTAN POTASSIUM 50 MG TABLET (FP) PO SCH (09:13)
[2019-08-31] MEDS: CALCIUM ACETATE 667 MG CAPSULE (FP) PO SCH ×3 (09:13→17:31)
[2019-08-31] MEDS: CLOPIDOGREL BISULFATE 75 MG TABLET (FP) PO SCH (09:13)
[2019-08-31] MEDS: ASPIRIN 81 MG CHEWABLE TABLETS PO SCH (09:14)
[2019-08-31] MEDS: CALCITRIOL 0.25 MCG CAPSULE (FP) PO SCH (09:14)
[2019-08-31] MEDS: NIFEdipine E.R 60 MG TABLET PO SCH (09:14)
[2019-08-31] MEDS: BACITRACIN 15 GM TUBE TOPICAL OINTMENT TP SCH (09:20)
--- NOTE | 2019-08-31 10:57 | PN ---
Progress Note, Physician Chief Complaint: OOB to chair feeling well seen by sx consult noted and d/w pt afebrile - Current Medication List Current Medications: Active Medications Acetaminophen (Tylenol -) 650 mg PO Q6H PRN PRN Reason: FEVER Last Admin: 08/30/19 22:56 Dose: 650 mg Alprazolam (Xanax -) 0.25 mg PO BID PRN PRN Reason: ANXIETY Last Admin: 08/30/19 16:12 Dose: 0.25 mg Amitriptyline HCl (Elavil -) 50 mg PO HS [facility] Last Admin: 08/30/19 21:58 Dose: 50 mg Aspirin (Asa -) 81 mg PO DAILY [facility] Last Admin: 08/31/19 09:14 Dose: 81 mg Atorvastatin Calcium (Lipitor -) 80 mg PO [facility] Last Admin: 08/30/19 21:58 Dose: 80 mg Bacitracin (Bacitracin -) 1 applic TP DAILY [facility] Last Admin: 08/31/19 09:20 Dose: 1 applic Calcitriol (Rocaltrol -) 0.25 mcg PO DAILY [facility] Last Admin: 08/31/19 09:14 Dose: 0.25 mcg Calcium Acetate (Phoslo -) 667 mg PO TIDCM [facility] Last Admin: 08/31/19 09:13 Dose: 667 mg Cholestyramine Resin (Questran Light Packet -) 4 gm PO BID [facility] Last Admin: 08/30/19 21:58 Dose: Not Given Clopidogrel Bisulfate (Plavix -) 75 mg PO DAILY [facility] Last Admin: 08/31/19 09:13 Dose: 75 mg Ferrous Sulfate (Feosol -) 325 mg PO BIDWM [facility] Last Admin: 08/31/19 09:13 Dose: 325 mg Daptomycin 300 mg/ Sodium (Chloride) 50 mls @ 50 mls/hr IVPB MOWEFR [facility]; Protocol Last Admin: 08/30/19 16:50 Dose: 50 mls/hr Sodium Chloride (Normal Saline -) 250 mls @ 3,000 mls/hr IV PRN PRN PRN Reason: Hypotension during Dialysis Stop: 08/31/19 15:47 Sodium Chloride (Normal Saline -) 250 mls @ 3,000 mls/hr IV PRN PRN PRN Reason: Hypotension during Dialysis Stop: 08/31/19 15:47 Sodium Chloride (Normal Saline -) 250 mls @ 3,000 mls/hr IV PRN PRN PRN Reason: Hypotension during Dialysis Stop: 08/31/19 15:48 Losartan Potassium (Cozaar -) 50 mg PO DAILY [facility] Last Admin: 08/31/19 09:13 Dose: 50 mg Nifedipine (Procardia Xl -) 60 mg PO DAILY [facility] Last Admin: 08/31/19 09:14 Dose: 60 mg Ondansetron HCl (Zofran Injection) 4 mg IVPUSH Q6H PRN PRN Reason: NAUSEA Ondansetron HCl (Zofran -) 4 mg PO BID PRN PRN Reason: NAUSEA AND/OR VOMITING Last Admin: 08/30/19 10:17 Dose: 4 mg Oxycodone HCl (Roxicodone -) 5 mg PO Q6H PRN PRN Reason: PAIN LEVEL 6-10 Sevelamer Carbonate (Renvela -) 1,600 mg PO TIDCM [facility] Last Admin: 08/31/19 09:12 Dose: 1,600 mg - Objective Vital Signs: Vital Signs Temperature 97.8 F 08/31/19 06:00 Pulse Rate 83 08/31/19 06:00 Respiratory Rate 18 08/31/19 06:00 Blood Pressure 152/49 L 08/31/19 06:00 O2 Sat by Pulse Oximetry (%) 98 08/30/19 20:59 Constitutional: Yes: No Distress Eyes: Yes: Conjunctiva Clear HENT: Yes: Atraumatic Neck: Yes: Supple Cardiovascular: Yes: Regular Rate and Rhythm Respiratory: Yes: CTA Bilaterally Gastrointestinal: Yes: Soft. No: Tenderness Genitourinary: No: Hematuria Musculoskeletal: No: Joint Stiffness, Joint Swelling Extremities: Yes: Other (RUE induration rash stable). No: Cold, Cool, Cyanosis Edema: No Integumentary: No: Rash, Venous Stasis Changes Neurological: Yes: WNL, Alert, Oriented ...Motor Strength: WNL Psychiatric: Yes: WNL, Alert, Oriented. No: Agitated, Suicidal Ideation Labs: CBC, BMP 08/30/19 12:50 08/30/19 12:50 INR, PTT INR 1.12 (0.83-1.09) H 08/24/19 10:30 - ....Imaging Other: Report Reviewed Assessment/Plan 84-year-old female with history of end-stage renal disease on hemodialysis, presents with worsening pain and erythema to the right upper extremity site catheter related thrombophlebitis, sepsis, positive blood cx ID and surgery f/u; IV ATB per ID HD per renal prognosis guarded surgery dr Jane f/u [email or web address] pt and staff;
--- NOTE | 2019-08-31 11:25 | PN ---
Progress Note, Physician History of Present Illness: stable improving - Current Medication List Current Medications: Active Medications Acetaminophen (Tylenol -) 650 mg PO Q6H PRN PRN Reason: FEVER Last Admin: 08/30/19 22:56 Dose: 650 mg Alprazolam (Xanax -) 0.25 mg PO BID PRN PRN Reason: ANXIETY Last Admin: 08/30/19 16:12 Dose: 0.25 mg Amitriptyline HCl (Elavil -) 50 mg PO [facility] Last Admin: 08/30/19 21:58 Dose: 50 mg Aspirin (Asa -) 81 mg PO DAILY [facility] Last Admin: 08/31/19 09:14 Dose: 81 mg Atorvastatin Calcium (Lipitor -) 80 mg PO [facility] Last Admin: 08/30/19 21:58 Dose: 80 mg Bacitracin (Bacitracin -) 1 applic TP DAILY [facility] Last Admin: 08/31/19 09:20 Dose: 1 applic Calcitriol (Rocaltrol -) 0.25 mcg PO DAILY [facility] Last Admin: 08/31/19 09:14 Dose: 0.25 mcg Calcium Acetate (Phoslo -) 667 mg PO TIDCM [facility] Last Admin: 08/31/19 09:13 Dose: 667 mg Cholestyramine Resin (Questran Light Packet -) 4 gm PO BID [facility] Last Admin: 08/30/19 21:58 Dose: Not Given Clopidogrel Bisulfate (Plavix -) 75 mg PO DAILY [facility] Last Admin: 08/31/19 09:13 Dose: 75 mg Ferrous Sulfate (Feosol -) 325 mg PO BIDWM [facility] Last Admin: 08/31/19 09:13 Dose: 325 mg Daptomycin 300 mg/ Sodium (Chloride) 50 mls @ 50 mls/hr IVPB MOWEFR [facility]; Protocol Last Admin: 08/30/19 16:50 Dose: 50 mls/hr Sodium Chloride (Normal Saline -) 250 mls @ 3,000 mls/hr IV PRN PRN PRN Reason: Hypotension during Dialysis Stop: 08/31/19 15:47 Sodium Chloride (Normal Saline -) 250 mls @ 3,000 mls/hr IV PRN PRN PRN Reason: Hypotension during Dialysis Stop: 08/31/19 15:47 Sodium Chloride (Normal Saline -) 250 mls @ 3,000 mls/hr IV PRN PRN PRN Reason: Hypotension during Dialysis Stop: 08/31/19 15:48 Losartan Potassium (Cozaar -) 50 mg PO DAILY [facility] Last Admin: 08/31/19 09:13 Dose: 50 mg Nifedipine (Procardia Xl -) 60 mg PO DAILY [facility] Last Admin: 08/31/19 09:14 Dose: 60 mg Ondansetron HCl (Zofran Injection) 4 mg IVPUSH Q6H PRN PRN Reason: NAUSEA Ondansetron HCl (Zofran -) 4 mg PO BID PRN PRN Reason: NAUSEA AND/OR VOMITING Last Admin: 08/30/19 10:17 Dose: 4 mg Oxycodone HCl (Roxicodone -) 5 mg PO Q6H PRN PRN Reason: PAIN LEVEL 6-10 Sevelamer Carbonate (Renvela -) 1,600 mg PO TIDCM [facility] Last Admin: 08/31/19 09:12 Dose: 1,600 mg - Objective Vital Signs: Vital Signs Temperature 97.8 F 08/31/19 06:00 Pulse Rate 83 08/31/19 06:00 Respiratory Rate 18 08/31/19 06:00 Blood Pressure 152/49 L 08/31/19 06:00 O2 Sat by Pulse Oximetry (%) 98 08/30/19 20:59 Constitutional: Yes: No Distress, Calm Cardiovascular: Yes: S1, S2 Respiratory: Yes: Regular, CTA Bilaterally Gastrointestinal: Yes: Normal Bowel Sounds, Soft Musculoskeletal: Yes: WNL Extremities: Yes: Other Neurological: Yes: Alert, Oriented Psychiatric: Yes: Alert, Oriented Labs: CBC, BMP 08/30/19 12:50 08/30/19 12:50 INR, PTT INR 1.12 (0.83-1.09) H 08/24/19 10:30 Assessment/Plan Problem List - Problems (1) Cellulitis of right upper extremity Code(s): L03.113 - CELLULITIS OF RIGHT UPPER LIMB (2) Anemia Code(s): D64.9 - ANEMIA, UNSPECIFIED Qualifiers: (3) Anxiety Code(s): F41.9 - ANXIETY DISORDER, UNSPECIFIED (4) CAD (coronary artery disease) Code(s): I25.10 - ATHSCL HEART DISEASE OF [place] CORONARY ARTERY W/O ANG PCTRS Qualifiers: Coronary Disease-Associated Artery/Lesion type: [place] artery [place] vs. transplanted heart: citizen [place] heart Associated angina: without angina Qualified Code(s): I25.10 - Atherosclerotic heart disease of [place] coronary artery without angina pectoris (5) COPD (chronic obstructive pulmonary disease) Code(s): J44.9 - CHRONIC OBSTRUCTIVE PULMONARY DISEASE, UNSPECIFIED Qualifiers: COPD type: unspecified COPD Qualified Code(s): J44.9 - Chronic obstructive pulmonary disease, unspecified (6) Cigarette nicotine dependence Code(s): F17.210 - NICOTINE DEPENDENCE, CIGARETTES, UNCOMPLICATED (7) Diabetes mellitus Code(s): E11.9 - TYPE 2 DIABETES MELLITUS WITHOUT COMPLICATIONS Qualifiers: Diabetes mellitus type: type 2 Diabetes mellitus complication status: with kidney complications Diabetes mellitus complication detail: with chronic kidney disease Chronic kidney disease stage: on chronic dialysis (8) ESRD (end stage renal disease) on dialysis Code(s): N18.6 - END STAGE RENAL DISEASE; Z99.2 - DEPENDENCE ON RENAL DIALYSIS (9) HTN (hypertension) Code(s): I10 - ESSENTIAL (PRIMARY) HYPERTENSION Qualifiers: Hypertension type: unspecified Qualified Code(s): I10 - Essential (primary ) hypertension (10) Hx of antibiotic allergy Code(s): Z88.1 - ALLERGY STATUS TO OTHER ANTIBIOTIC AGENTS STATUS (11) Hyperlipidemia Code(s): E78.5 - HYPERLIPIDEMIA, UNSPECIFIED Qualifiers: Hyperlipidemia type: pure hypercholesterolemia Qualified Code(s): E78.00 - Pure hypercholesterolemia, unspecified; E78.0 - Pure hypercholesterolemia (12) PAD (peripheral artery disease) Code(s): I73.9 - PERIPHERAL VASCULAR DISEASE, UNSPECIFIED (13) S/P femoropopliteal bypass surgery Code(s): Z95.828 - PRESENCE OF OTHER VASCULAR IMPLANTS AND GRAFTS Assessment/Plan 84 y.o. female with PMH of ESRD on HD, CAD, NSTEMI, DM, COPD, active smoker, HTN , PAD s/p Rt fem-pop bypass, Rt toe amp, HTN, HLD presents with complaints of worsening Rt forearm erythema/edema/and tenderness, low grade fever, mild leukocytosis with +blood cultures Gram positive bacteremia Rt forearm cellulitis/abscess s/p drainage ESRD on HD DM CAD COPD Nicotine dependence PAD HTN HLD continue dapt wbc has increased will order cbc today
[2019-08-31] MEDS: CHOLESTYRAMINE/ASPARTAME 4 GM PACKET PO SCH ×2 (12:22→21:38)
[2019-08-31 12:46] LABS: HEMATOCRIT 30.1 % (32.4-45.2); HEMOGLOBIN 9.7 GM/dL (10.7-15.3); MCH 31.3 pg (25.7-33.7); MCHC 32.3 g/dl (32.0-36.0); MEAN CELL VOLUME 96.9 fl (80-96); MEAN PLT VOLUME 8.4 fl (7.5-11.1); PLATELET COUNT 512 K/MM3 (134-434); RDW 15.2 % (11.6-15.6); WHITE BLOOD COUNT 10.2 K/mm3 (4.0-10.0)
[2019-08-31] MEDS: ALPRAZolam 0.25 MG TABLET PO PRN (15:44)
[2019-08-31] MEDS: ATORVASTATIN CA 80 MG TABLET (FP) PO SCH (21:36)
[2019-08-31] MEDS: AMITRIPTYLINE HCL 25 MG TABLET PO SCH (21:36)
[2019-08-31] MEDS ORDERED: ALPRAZolam 0.25 MG TABLET PO ONE (22:00)
--- NOTE | 2019-09-01 07:26 | PN ---
Progress Note, Physician Chief Complaint: in bed NAD VSS afebrile no c/o RUE rash and swelling better - Current Medication List Current Medications: Active Medications Acetaminophen (Tylenol -) 650 mg PO Q6H PRN PRN Reason: FEVER Last Admin: 08/30/19 22:56 Dose: 650 mg Alprazolam (Xanax -) 0.25 mg PO BID PRN PRN Reason: ANXIETY Last Admin: 08/31/19 15:44 Dose: 0.25 mg Amitriptyline HCl (Elavil -) 50 mg PO HS [facility] Last Admin: 08/31/19 21:36 Dose: 50 mg Aspirin (Asa -) 81 mg PO DAILY [facility] Last Admin: 08/31/19 09:14 Dose: 81 mg Atorvastatin Calcium (Lipitor -) 80 mg PO [facility] Last Admin: 08/31/19 21:36 Dose: 80 mg Bacitracin (Bacitracin -) 1 applic TP DAILY [facility] Last Admin: 08/31/19 09:20 Dose: 1 applic Calcitriol (Rocaltrol -) 0.25 mcg PO DAILY [facility] Last Admin: 08/31/19 09:14 Dose: 0.25 mcg Calcium Acetate (Phoslo -) 667 mg PO TIDCM [facility] Last Admin: 08/31/19 17:31 Dose: 667 mg Cholestyramine Resin (Questran Light Packet -) 4 gm PO BID [facility] Last Admin: 08/31/19 21:38 Dose: Not Given Clopidogrel Bisulfate (Plavix -) 75 mg PO DAILY [facility] Last Admin: 08/31/19 09:13 Dose: 75 mg Ferrous Sulfate (Feosol -) 325 mg PO BIDWM [facility] Last Admin: 08/31/19 17:31 Dose: 325 mg Daptomycin 300 mg/ Sodium (Chloride) 50 mls @ 50 mls/hr IVPB [facility]; Protocol Last Admin: 08/30/19 16:50 Dose: 50 mls/hr Losartan Potassium (Cozaar -) 50 mg PO DAILY [facility] Last Admin: 08/31/19 09:13 Dose: 50 mg Nifedipine (Procardia Xl -) 60 mg PO DAILY [facility] Last Admin: 08/31/19 09:14 Dose: 60 mg Ondansetron HCl (Zofran Injection) 4 mg IVPUSH Q6H PRN PRN Reason: NAUSEA Ondansetron HCl (Zofran -) 4 mg PO BID PRN PRN Reason: NAUSEA AND/OR VOMITING Last Admin: 08/30/19 10:17 Dose: 4 mg Oxycodone HCl (Roxicodone -) 5 mg PO Q6H PRN PRN Reason: PAIN LEVEL 6-10 Sevelamer Carbonate (Renvela -) 1,600 mg PO TIDCM [facility] Last Admin: 08/31/19 17:31 Dose: 1,600 mg - Objective Vital Signs: Vital Signs Temperature 98.1 F 09/01/19 06:00 Pulse Rate 81 09/01/19 06:00 Respiratory Rate 09/01/19 06:00 Blood Pressure 158/78 09/01/19 06:00 O2 Sat by Pulse Oximetry (%) 99 08/31/19 21:00 Constitutional: Yes: No Distress Eyes: Yes: Conjunctiva Clear HENT: Yes: Atraumatic Neck: Yes: Supple Cardiovascular: Yes: Regular Rate and Rhythm Respiratory: Yes: CTA Bilaterally Gastrointestinal: Yes: Soft. No: Tenderness Genitourinary: No: Hematuria Musculoskeletal: No: Joint Stiffness, Joint Swelling Extremities: Yes: Other (RUE I&D site healing NL, abpve it the induration area smaller no pain). No: Cold, Cool Edema: No Integumentary: No: Rash, Venous Stasis Changes Neurological: Yes: Alert ...Motor Strength: WNL Psychiatric: Yes: Alert. No: Agitated, Suicidal Ideation Labs: CBC, BMP 08/31/19 12:27 08/30/19 12:50 INR, PTT INR 1.12 (0.83-1.09) H 08/24/19 10:30 - ....Imaging Other: Report Reviewed Assessment/Plan 84-year-old female with history of end-stage renal disease on hemodialysis, presents with worsening pain and erythema to the right upper extremity site catheter related thrombophlebitis, sepsis, positive blood cx ID and surgery f/u; IV ATB per ID HD per renal prognosis guarded d.w pt and staff;
[2019-09-01] MEDS: CALCIUM ACETATE 667 MG CAPSULE (FP) PO SCH ×3 (08:20→16:31)
[2019-09-01] MEDS: FERROUS SO4 325 MG TABLET (FP) PO SCH ×2 (08:20→16:31)
[2019-09-01] MEDS: SEVELAMER CARBONATE 800 MG TAB (FP) PO SCH ×3 (08:20→16:31)
[2019-09-01] MEDS ORDERED: PT OWN MED DRAWER 7, Y5N ONE ×2 (09:35→20:54)
[2019-09-01] MEDS: BACITRACIN 15 GM TUBE TOPICAL OINTMENT TP SCH (09:42)
[2019-09-01] MEDS: CLOPIDOGREL BISULFATE 75 MG TABLET (FP) PO SCH (09:43)
[2019-09-01] MEDS: CALCITRIOL 0.25 MCG CAPSULE (FP) PO SCH (09:43)
[2019-09-01] MEDS: LOSARTAN POTASSIUM 50 MG TABLET (FP) PO SCH (09:43)
[2019-09-01] MEDS: ASPIRIN 81 MG CHEWABLE TABLETS PO SCH (09:43)
[2019-09-01] MEDS: NIFEdipine E.R 60 MG TABLET PO SCH (09:44)
[2019-09-01] MEDS: CHOLESTYRAMINE/ASPARTAME 4 GM PACKET PO SCH ×2 (09:44→21:05)
[2019-09-01] MEDS: ALPRAZolam 0.25 MG TABLET PO PRN ×2 (11:35→21:03)
--- NOTE | 2019-09-01 13:44 | PN ---
Progress Note, Physician - Current Medication List Current Medications: Active Medications Acetaminophen (Tylenol -) 650 mg PO Q6H PRN PRN Reason: FEVER Last Admin: 08/30/19 22:56 Dose: 650 mg Alprazolam (Xanax -) 0.25 mg PO Q12H PRN PRN Reason: ANXIETY Last Admin: 09/01/19 11:35 Dose: 0.25 mg Amitriptyline HCl (Elavil -) 50 mg PO [facility] Last Admin: 08/31/19 21:36 Dose: 50 mg Aspirin (Asa -) 81 mg PO DAILY [facility] Last Admin: 09/01/19 09:43 Dose: 81 mg Atorvastatin Calcium (Lipitor -) 80 mg PO [facility] Last Admin: 08/31/19 21:36 Dose: 80 mg Bacitracin (Bacitracin -) 1 applic TP DAILY [facility] Last Admin: 09/01/19 09:42 Dose: 1 applic Calcitriol (Rocaltrol -) 0.25 mcg PO DAILY [facility] Last Admin: 09/01/19 09:43 Dose: 0.25 mcg Calcium Acetate (Phoslo -) 667 mg PO [facility]CM [facility] Last Admin: 09/01/19 11:35 Dose: 667 mg Cholestyramine Resin (Questran Light Packet -) 4 gm PO BID [facility] Last Admin: 09/01/19 09:44 Dose: Not Given Clopidogrel Bisulfate (Plavix -) 75 mg PO DAILY [facility] Last Admin: 09/01/19 09:43 Dose: 75 mg Ferrous Sulfate (Feosol -) 325 mg PO BIDWM [facility] Last Admin: 09/01/19 08:20 Dose: 325 mg Daptomycin 300 mg/ Sodium (Chloride) 50 mls @ 50 mls/hr IVPB [facility]; Protocol Last Admin: 08/30/19 16:50 Dose: 50 mls/hr Losartan Potassium (Cozaar -) 50 mg PO DAILY [facility] Last Admin: 09/01/19 09:43 Dose: 50 mg Nifedipine (Procardia Xl -) 60 mg PO DAILY [facility] Last Admin: 09/01/19 09:44 Dose: 60 mg Ondansetron HCl (Zofran Injection) 4 mg IVPUSH Q6H PRN PRN Reason: NAUSEA Ondansetron HCl (Zofran -) 4 mg PO BID PRN PRN Reason: NAUSEA AND/OR VOMITING Last Admin: 08/30/19 10:17 Dose: 4 mg Sevelamer Carbonate (Renvela -) 1,600 mg PO TIDCM [facility] Last Admin: 09/01/19 11:34 Dose: 1,600 mg - Objective Vital Signs: Vital Signs Temperature 98.5 F 09/01/19 10:00 Pulse Rate 78 09/01/19 10:00 Respiratory Rate 18 09/01/19 10:00 Blood Pressure 144/73 09/01/19 10:00 O2 Sat by Pulse Oximetry (%) 99 09/01/19 09:00 Labs: CBC, BMP 08/31/19 12:27 08/30/19 12:50 INR, PTT INR 1.12 (0.83-1.09) H 08/24/19 10:30
--- NOTE | 2019-09-01 14:59 | PN ---
Progress Note, Physician History of Present Illness: Pt seen and examined at bedside. She is awake and alert. She denies fevers or chills. - Current Medication List Current Medications: Active Medications Acetaminophen (Tylenol -) 650 mg PO Q6H PRN PRN Reason: FEVER Last Admin: 08/30/19 22:56 Dose: 650 mg Alprazolam (Xanax -) 0.25 mg PO Q12H PRN PRN Reason: ANXIETY Last Admin: 09/01/19 11:35 Dose: 0.25 mg Amitriptyline HCl (Elavil -) 50 mg PO HS [facility] Last Admin: 08/31/19 21:36 Dose: 50 mg Aspirin (Asa -) 81 mg PO DAILY [facility] Last Admin: 09/01/19 09:43 Dose: 81 mg Atorvastatin Calcium (Lipitor -) 80 mg PO HS [facility] Last Admin: 08/31/19 21:36 Dose: 80 mg Bacitracin (Bacitracin -) 1 applic TP DAILY [facility] Last Admin: 09/01/19 09:42 Dose: 1 applic Calcitriol (Rocaltrol -) 0.25 mcg PO DAILY [facility] Last Admin: 09/01/19 09:43 Dose: 0.25 mcg Calcium Acetate (Phoslo -) 667 mg PO TIDCM [facility] Last Admin: 09/01/19 11:35 Dose: 667 mg Cholestyramine Resin (Questran Light Packet -) 4 gm PO BID [facility] Last Admin: 09/01/19 09:44 Dose: Not Given Clopidogrel Bisulfate (Plavix -) 75 mg PO DAILY [facility] Last Admin: 09/01/19 09:43 Dose: 75 mg Epoetin Paco (Epogen -) 10,000 unit IVPUSH ONCE ONE Stop: 09/02/19 14:56 Ferrous Sulfate (Feosol -) 325 mg PO BIDWM [facility] Last Admin: 09/01/19 08:20 Dose: 325 mg Daptomycin 300 mg/ Sodium (Chloride) 50 mls @ 50 mls/hr IVPB [facility]FR [facility]; Protocol Last Admin: 08/30/19 16:50 Dose: 50 mls/hr Sodium Chloride (Normal Saline -) 250 mls @ 3,000 mls/hr IV PRN PRN PRN Reason: Hypotension during Dialysis Stop: 09/02/19 14:55 Losartan Potassium (Cozaar -) 50 mg PO DAILY [facility] Last Admin: 09/01/19 09:43 Dose: 50 mg Nifedipine (Procardia Xl -) 60 mg PO DAILY [facility] Last Admin: 09/01/19 09:44 Dose: 60 mg Ondansetron HCl (Zofran Injection) 4 mg IVPUSH Q6H PRN PRN Reason: NAUSEA Ondansetron HCl (Zofran -) 4 mg PO BID PRN PRN Reason: NAUSEA AND/OR VOMITING Last Admin: 08/30/19 10:17 Dose: 4 mg Sevelamer Carbonate (Renvela -) 1,600 mg PO TIDCM [facility] Last Admin: 09/01/19 11:34 Dose: 1,600 mg - Objective Vital Signs: Vital Signs Temperature 98.5 F 09/01/19 10:00 Pulse Rate 78 09/01/19 10:00 Respiratory Rate 18 09/01/19 10:00 Blood Pressure 144/73 09/01/19 10:00 O2 Sat by Pulse Oximetry (%) 99 09/01/19 09:00 Constitutional: Yes: Calm Eyes: Yes: Conjunctiva Clear HENT: Yes: Atraumatic Neck: Yes: Supple Cardiovascular: Yes: S1, S2 Respiratory: Yes: CTA Bilaterally Gastrointestinal: Yes: Soft Genitourinary: Yes: WNL Musculoskeletal: Yes: WNL Extremities: Yes: WNL Edema: No Neurological: Yes: Oriented Psychiatric: Yes: Oriented Labs: CBC, BMP 08/31/19 12:27 08/30/19 12:50 INR, PTT INR 1.12 (0.83-1.09) H 08/24/19 10:30 Assessment/Plan Current Medications Generic Name Dose Route Start Last Admin Trade Name Freq PRN Reason Stop Dose Admin Acetaminophen 650 mg 08/26/19 18:18 08/30/19 22:56 Tylenol - PO 650 mg Q6H PRN Administration FEVER Alprazolam 0.25 mg 09/01/19 11:22 09/01/19 11:35 Xanax - PO 0.25 mg Q12H PRN Administration ANXIETY Amitriptyline HCl 50 mg 08/29/19 22:00 08/31/19 21:36 Elavil - PO 50 mg HS [facility] Administration Aspirin 81 mg 08/29/19 10:00 09/01/19 09:43 Asa - PO 81 mg DAILY [facility] Administration Atorvastatin Calcium 80 mg 08/29/19 22:00 08/31/19 21:36 Lipitor - PO 80 mg HS [facility] Administration Bacitracin 1 applic 08/29/19 10:00 09/01/19 09:42 Bacitracin - TP 1 applic DAILY [facility] Administration Calcitriol 0.25 mcg 08/29/19 10:00 09/01/19 09:43 Rocaltrol - PO 0.25 mcg DAILY [facility] Administration Calcium Acetate 667 mg 08/29/19 08:00 09/01/19 11:35 Phoslo - PO 667 mg TIDCM [facility] Administration Cholestyramine Resin 4 gm 08/29/19 10:00 09/01/19 09:44 Questran Light Packet - PO Not Given BID [facility] Clopidogrel Bisulfate 75 mg 08/29/19 10:00 09/01/19 09:43 Plavix - PO 75 mg DAILY [facility] Administration Epoetin Paco 10,000 unit 09/02/19 14:55 Epogen - IVPUSH 09/02/19 14:56 ONCE ONE Ferrous Sulfate 325 mg 08/29/19 08:15 09/01/19 08:20 Feosol - PO 325 mg BIDWM [facility] Administration Daptomycin 300 mg/ Sodium 50 mls @ 50 mls/hr 08/30/19 10:00 08/30/19 16:50 Chloride IVPB 50 mls/hr MOWEFR [facility] Administration Protocol Sodium Chloride 250 mls @ 3,000 mls/hr 09/01/19 14:55 Normal Saline - IV 09/02/19 14:55 PRN PRN Hypotension during Dialysis Losartan Potassium 50 mg 08/26/19 14:15 09/01/19 09:43 Cozaar - PO 50 mg DAILY [facility] Administration Nifedipine 60 mg 08/26/19 14:17 09/01/19 09:44 Procardia Xl - PO 60 mg DAILY [facility] Administration Ondansetron HCl 4 mg 08/28/19 09:08 Zofran Injection IVPUSH Q6H PRN NAUSEA Ondansetron HCl 4 mg 08/29/19 07:46 08/30/19 10:17 Zofran - PO 4 mg BID PRN Administration NAUSEA AND/OR VOMITING Sevelamer Carbonate 1,600 mg 08/29/19 08:00 09/01/19 11:34 Renvela - PO 1,600 mg TIDCM [facility] Administration 1. ESRD on HD 2. Abscess on arm 3. Gram positive bacteremia 4. Hypertension 5. CAD 6. Anemia Plan - HD tomorrow - orders written - renal diet - bp stable - abx per ID - epogen for anemia
[2019-09-01] MEDS: ONDANSETRON 4 MG TABLET PO PRN (21:04)
[2019-09-01] MEDS: AMITRIPTYLINE HCL 25 MG TABLET PO SCH (22:19)
[2019-09-01] MEDS: ATORVASTATIN CA 80 MG TABLET (FP) PO SCH (22:19)
--- NOTE | 2019-09-02 06:55 | PN ---
Progress Note, Physician Chief Complaint: in bed [place] better afebrile d/w pt DC planning if cleared by surgery and ID - will need outpt dapto during dialysis - Current Medication List Current Medications: Active Medications Acetaminophen (Tylenol -) 650 mg PO Q6H PRN PRN Reason: FEVER Last Admin: 08/30/19 22:56 Dose: 650 mg Alprazolam (Xanax -) 0.25 mg PO Q12H PRN PRN Reason: ANXIETY Last Admin: 09/01/19 21:03 Dose: 0.25 mg Amitriptyline HCl (Elavil -) 50 mg PO HS [facility] Last Admin: 09/01/19 22:19 Dose: 50 mg Aspirin (Asa -) 81 mg PO DAILY [facility] Last Admin: 09/01/19 09:43 Dose: 81 mg Atorvastatin Calcium (Lipitor -) 80 mg PO HS [facility] Last Admin: 09/01/19 22:19 Dose: 80 mg Bacitracin (Bacitracin -) 1 applic TP DAILY [facility] Last Admin: 09/01/19 09:42 Dose: 1 applic Calcitriol (Rocaltrol -) 0.25 mcg PO DAILY [facility] Last Admin: 09/01/19 09:43 Dose: 0.25 mcg Calcium Acetate (Phoslo -) 667 mg PO TIDCM [facility] Last Admin: 09/01/19 16:31 Dose: 667 mg Cholestyramine Resin (Questran Light Packet -) 4 gm PO BID [facility] Last Admin: 09/01/19 21:05 Dose: Not Given Clopidogrel Bisulfate (Plavix -) 75 mg PO DAILY [facility] Last Admin: 09/01/19 09:43 Dose: 75 mg Epoetin Paco (Procrit -) 10,000 unit IVPUSH ONCE ONE Stop: 09/02/19 08:01 Ferrous Sulfate (Feosol -) 325 mg PO BIDWM [facility] Last Admin: 09/01/19 16:31 Dose: 325 mg Daptomycin 300 mg/ Sodium (Chloride) 50 mls @ 50 mls/hr IVPB [facility]; Protocol Last Admin: 08/30/19 16:50 Dose: 50 mls/hr Sodium Chloride (Normal Saline -) 250 mls @ 3,000 mls/hr IV PRN PRN PRN Reason: Hypotension during Dialysis Stop: 09/02/19 08:01 Losartan Potassium (Cozaar -) 50 mg PO DAILY [facility] Last Admin: 09/01/19 09:43 Dose: 50 mg Nifedipine (Procardia Xl -) 60 mg PO DAILY [facility] Last Admin: 09/01/19 09:44 Dose: 60 mg Ondansetron HCl (Zofran Injection) 4 mg IVPUSH Q6H PRN PRN Reason: NAUSEA Ondansetron HCl (Zofran -) 4 mg PO BID PRN PRN Reason: NAUSEA AND/OR VOMITING Last Admin: 09/01/19 21:04 Dose: 4 mg Sevelamer Carbonate (Renvela -) 1,600 mg PO TIDCM [facility] Last Admin: 09/01/19 16:31 Dose: 1,600 mg - Objective Vital Signs: Vital Signs Temperature 98.2 F 09/02/19 06:00 Pulse Rate 80 09/02/19 06:00 Respiratory Rate 16 09/02/19 06:00 Blood Pressure 154/81 09/02/19 06:00 O2 Sat by Pulse Oximetry (%) 99 09/01/19 21:00 Constitutional: Yes: No Distress, Calm Eyes: Yes: Conjunctiva Clear HENT: Yes: Atraumatic Neck: Yes: Supple Cardiovascular: Yes: Regular Rate and Rhythm Respiratory: Yes: CTA Bilaterally Gastrointestinal: Yes: Soft. No: Tenderness Genitourinary: No: Hematuria Musculoskeletal: No: Joint Stiffness, Joint Swelling Extremities: No: Cold, Cool, Cyanosis Edema: No Integumentary: Yes: Rash (RUE better) Neurological: Yes: Alert, Oriented ...Motor Strength: WNL Psychiatric: Yes: Alert, Oriented. No: Agitated Labs: CBC, BMP 08/31/19 12:27 08/30/19 12:50 INR, PTT INR 1.12 (0.83-1.09) H 08/24/19 10:30 - ....Imaging Other: Report Reviewed Assessment/Plan 84-year-old female with history of end-stage renal disease on hemodialysis, presents with worsening pain and erythema to the right upper extremity site catheter related thrombophlebitis, sepsis, positive blood cx ID and surgery f/u; IV ATB per ID HD per renal prognosis guarded d.w pt and staff;
[2019-09-02 08:00] LABS: HEMOGLOBIN 8.4 GM/dL (10.7-15.3); MCH 32.5 pg (25.7-33.7); MCHC 33.5 g/dl (32.0-36.0); MEAN CELL VOLUME 97.1 fl (80-96); MEAN PLT VOLUME 8.5 fl (7.5-11.1); PLATELET COUNT 387 K/MM3 (134-434); RBC 2.57 M/mm3 (3.60-5.2); RDW 15.4 % (11.6-15.6); WHITE BLOOD COUNT 9.3 K/mm3 (4.0-10.0)
[2019-09-02] MEDS ORDERED: SODIUM CHLORIDE 250 ML IV PRN (08:00)
[2019-09-02] MEDS ORDERED: EPOETIN ALFA 10,000 UNIT/1 ML VIAL IVPUSH ONE (08:00)
[2019-09-02 09:03] LABS: BLOOD UREA NITROGEN 39.8 mg/dL (7-18); CALCIUM 8.2 mg/dL (8.5-10.1); POTASSIUM 4.5 mmol/L (3.5-5.1)
[2019-09-02 09:08] LABS: CREATININE 7.5 mg/dL (0.55-1.3)
[2019-09-02] MEDS: SEVELAMER CARBONATE 800 MG TAB (FP) PO SCH ×3 (09:08→17:59)
[2019-09-02] MEDS: CALCIUM ACETATE 667 MG CAPSULE (FP) PO SCH ×3 (09:09→17:59)
[2019-09-02] MEDS: FERROUS SO4 325 MG TABLET (FP) PO SCH ×2 (09:09→17:59)
[2019-09-02] MEDS: ALPRAZolam 0.25 MG TABLET PO PRN ×2 (09:09→21:23)
[2019-09-02] MEDS: DAPTOMYCIN 300 MG in SODIUM CHLORIDE 50 ML IVPB SCH (10:34)
[2019-09-02] MEDS: CALCITRIOL 0.25 MCG CAPSULE (FP) PO SCH (10:54)
[2019-09-02] MEDS: CLOPIDOGREL BISULFATE 75 MG TABLET (FP) PO SCH (10:54)
[2019-09-02] MEDS: ASPIRIN 81 MG CHEWABLE TABLETS PO SCH (10:54)
[2019-09-02] MEDS: BACITRACIN 15 GM TUBE TOPICAL OINTMENT TP SCH (10:55)
[2019-09-02] MEDS: CHOLESTYRAMINE/ASPARTAME 4 GM PACKET PO SCH ×2 (10:55→21:24)
[2019-09-02] MEDS: LOSARTAN POTASSIUM 50 MG TABLET (FP) PO SCH (10:55)
[2019-09-02] MEDS: NIFEdipine E.R 60 MG TABLET PO SCH (10:55)
--- NOTE | 2019-09-02 12:01 | PN ---
Progress Note (short form) - Note Progress Note: Renal follow up for ESRD on HD Seen and examined at the bedside awake and alert feels better no fever, chills s/p dialysis this am, tolerated it well Vital Signs Temperature 98.4 F 09/02/19 06:50 Pulse Rate 80 09/02/19 10:41 Respiratory Rate 18 09/02/19 10:41 Blood Pressure 182/70 H 09/02/19 10:41 O2 Sat by Pulse Oximetry (%) 99 09/02/19 10:00 Intake & Output 08/30/19 08/31/19 09/01/19 09/02/19 23:59 23:59 23:59 23:59 Intake Total 1160 1310 340 550 Output Total 1999 1 1501 Balance -840 1309 340 -951 Weight 47.797 kg NAD RRR CTA soft NT/ND no LE edema tunneled HD catheter in place, no cyanosis or clubbing erythema and induration over right forearm CBC, BMP 09/02/19 07:00 09/02/19 07:00 Current Medications Acetaminophen (Tylenol -) 650 mg PO Q6H PRN PRN Reason: FEVER Last Admin: 08/30/19 22:56 Dose: 650 mg Alprazolam (Xanax -) 0.25 mg PO Q12H PRN PRN Reason: ANXIETY Last Admin: 09/02/19 09:09 Dose: 0.25 mg Amitriptyline HCl (Elavil -) 50 mg PO HS [facility] Last Admin: 09/01/19 22:19 Dose: 50 mg Aspirin (Asa -) 81 mg PO DAILY [facility] Last Admin: 09/02/19 10:54 Dose: 81 mg Atorvastatin Calcium (Lipitor -) 80 mg PO HS [facility] Last Admin: 09/01/19 22:19 Dose: 80 mg Bacitracin (Bacitracin -) 1 applic TP DAILY [facility] Last Admin: 09/02/19 10:55 Dose: 1 applic Calcitriol (Rocaltrol -) 0.25 mcg PO DAILY [facility] Last Admin: 09/02/19 10:54 Dose: 0.25 mcg Calcium Acetate (Phoslo -) 667 mg PO TIDCM [facility] Last Admin: 09/02/19 09:09 Dose: 667 mg Cholestyramine Resin (Questran Light Packet -) 4 gm PO BID [facility] Last Admin: 09/02/19 10:55 Dose: Not Given Clopidogrel Bisulfate (Plavix -) 75 mg PO DAILY [facility] Last Admin: 09/02/19 10:54 Dose: 75 mg Ferrous Sulfate (Feosol -) 325 mg PO BIDWM [facility] Last Admin: 09/02/19 09:09 Dose: 325 mg Daptomycin 300 mg/ Sodium (Chloride) 50 mls @ 50 mls/hr IVPB [facility]; Protocol Last Admin: 09/02/19 10:34 Dose: 50 mls/hr Losartan Potassium (Cozaar -) 50 mg PO DAILY [facility] Last Admin: 09/02/19 10:55 Dose: 50 mg Nifedipine (Procardia Xl -) 60 mg PO DAILY [facility] Last Admin: 09/02/19 10:55 Dose: 60 mg Ondansetron HCl (Zofran Injection) 4 mg IVPUSH Q6H PRN PRN Reason: NAUSEA Ondansetron HCl (Zofran -) 4 mg PO BID PRN PRN Reason: NAUSEA AND/OR VOMITING Last Admin: 09/01/19 21:04 Dose: 4 mg Sevelamer Carbonate (Renvela -) 1,600 mg PO TIDCM [facility] Last Admin: 09/02/19 09:08 Dose: 1,600 mg 84 year old woman with history of ESRD no HD (), DM, hypertension, CAD with recent NSTEMI, PVD, current smoker presents from home with boil on her right arm. 1. ESRD on HD 2. Abscess on arm 3. Gram positive bacteremia 4. Hypertension 5. CAD 6. Anemia tolerated dialysis well Continue IV Dapto as per ID Repeat cultures w/o growth thus far Further debridement as per surgery Next dialysis planned for Monday will give JACOB with HD for anemia Thank you Quentin Goyal DO
--- NOTE | 2019-09-02 14:34 | PN ---
Progress Note, Physician History of Present Illness: patient stable swelling improving warm soaks still areas of induration - Current Medication List Current Medications: Active Medications Acetaminophen (Tylenol -) 650 mg PO Q6H PRN PRN Reason: FEVER Last Admin: 08/30/19 22:56 Dose: 650 mg Alprazolam (Xanax -) 0.25 mg PO Q12H PRN PRN Reason: ANXIETY Last Admin: 09/02/19 09:09 Dose: 0.25 mg Amitriptyline HCl (Elavil -) 50 mg PO HS [facility] Last Admin: 09/01/19 22:19 Dose: 50 mg Aspirin (Asa -) 81 mg PO DAILY [facility] Last Admin: 09/02/19 10:54 Dose: 81 mg Atorvastatin Calcium (Lipitor -) 80 mg PO [facility] Last Admin: 09/01/19 22:19 Dose: 80 mg Bacitracin (Bacitracin -) 1 applic TP DAILY [facility] Last Admin: 09/02/19 10:55 Dose: 1 applic Calcitriol (Rocaltrol -) 0.25 mcg PO DAILY [facility] Last Admin: 09/02/19 10:54 Dose: 0.25 mcg Calcium Acetate (Phoslo -) 667 mg PO TIDCM [facility] Last Admin: 09/02/19 12:18 Dose: Not Given Cholestyramine Resin (Questran Light Packet -) 4 gm PO BID [facility] Last Admin: 09/02/19 10:55 Dose: Not Given Clopidogrel Bisulfate (Plavix -) 75 mg PO DAILY [facility] Last Admin: 09/02/19 10:54 Dose: 75 mg Ferrous Sulfate (Feosol -) 325 mg PO BIDWM [facility] Last Admin: 09/02/19 09:09 Dose: 325 mg Daptomycin 300 mg/ Sodium (Chloride) 50 mls @ 50 mls/hr IVPB MOWEFR [facility]; Protocol Last Admin: 09/02/19 10:34 Dose: 50 mls/hr Losartan Potassium (Cozaar -) 50 mg PO DAILY [facility] Last Admin: 09/02/19 10:55 Dose: 50 mg Nifedipine (Procardia Xl -) 60 mg PO DAILY [facility] Last Admin: 09/02/19 10:55 Dose: 60 mg Ondansetron HCl (Zofran Injection) 4 mg IVPUSH Q6H PRN PRN Reason: NAUSEA Ondansetron HCl (Zofran -) 4 mg PO BID PRN PRN Reason: NAUSEA AND/OR VOMITING Last Admin: 09/01/19 21:04 Dose: 4 mg Sevelamer Carbonate (Renvela -) 1,600 mg PO TIDCM [facility] Last Admin: 09/02/19 12:18 Dose: Not Given - Objective Vital Signs: Vital Signs Temperature 98.4 F 09/02/19 06:50 Pulse Rate 80 09/02/19 10:41 Respiratory Rate 18 09/02/19 10:41 Blood Pressure 182/70 H 09/02/19 10:41 O2 Sat by Pulse Oximetry (%) 99 09/02/19 10:00 Constitutional: Yes: No Distress, Calm Cardiovascular: Yes: S1, S2 Respiratory: Yes: Regular, CTA Bilaterally Gastrointestinal: Yes: Normal Bowel Sounds, Soft Musculoskeletal: Yes: Other Extremities: Yes: Erythema (improved), Other Neurological: Yes: Alert, Oriented Psychiatric: Yes: Alert, Oriented Labs: CBC, BMP 09/02/19 07:00 09/02/19 07:00 INR, PTT INR 1.12 (0.83-1.09) H 08/24/19 10:30 Assessment/Plan Problem List - Problems (1) Cellulitis of right upper extremity Code(s): L03.113 - CELLULITIS OF RIGHT UPPER LIMB (2) Anemia Code(s): D64.9 - ANEMIA, UNSPECIFIED Qualifiers: (3) Anxiety Code(s): F41.9 - ANXIETY DISORDER, UNSPECIFIED (4) CAD (coronary artery disease) Code(s): I25.10 - ATHSCL HEART DISEASE OF [place] CORONARY ARTERY W/O ANG PCTRS Qualifiers: Coronary Disease-Associated Artery/Lesion type: [place] artery [place] vs. transplanted heart: [place] heart Associated angina: without angina Qualified Code(s): I25.10 - Atherosclerotic heart disease of [place] coronary artery without angina pectoris (5) COPD (chronic obstructive pulmonary disease) Code(s): J44.9 - CHRONIC OBSTRUCTIVE PULMONARY DISEASE, UNSPECIFIED Qualifiers: COPD type: unspecified COPD Qualified Code(s): J44.9 - Chronic obstructive pulmonary disease, unspecified (6) Cigarette nicotine dependence Code(s): F17.210 - NICOTINE DEPENDENCE, CIGARETTES, UNCOMPLICATED (7) Diabetes mellitus Code(s): E11.9 - TYPE 2 DIABETES MELLITUS WITHOUT COMPLICATIONS Qualifiers: Diabetes mellitus type: type 2 Diabetes mellitus complication status: with kidney complications Diabetes mellitus complication detail: with chronic kidney disease Chronic kidney disease stage: on chronic dialysis (8) ESRD (end stage renal disease) on dialysis Code(s): N18.6 - END STAGE RENAL DISEASE; Z99.2 - DEPENDENCE ON RENAL DIALYSIS (9) HTN (hypertension) Code(s): I10 - ESSENTIAL (PRIMARY) HYPERTENSION Qualifiers: Hypertension type: unspecified Qualified Code(s): I10 - Essential (primary ) hypertension (10) Hx of antibiotic allergy Code(s): Z88.1 - ALLERGY STATUS TO OTHER ANTIBIOTIC AGENTS STATUS (11) Hyperlipidemia Code(s): E78.5 - HYPERLIPIDEMIA, UNSPECIFIED Qualifiers: Hyperlipidemia type: pure hypercholesterolemia Qualified Code(s): E78.00 - Pure hypercholesterolemia, unspecified; E78.0 - Pure hypercholesterolemia (12) PAD (peripheral artery disease) Code(s): I73.9 - PERIPHERAL VASCULAR DISEASE, UNSPECIFIED (13) S/P femoropopliteal bypass surgery Code(s): Z95.828 - PRESENCE OF OTHER VASCULAR IMPLANTS AND GRAFTS Assessment/Plan 84 y.o. female with PMH of ESRD on HD, CAD, NSTEMI, DM, COPD, active smoker, HTN , PAD s/p Rt fem-pop bypass, Rt toe amp, HTN, HLD presents with complaints of worsening Rt forearm erythema/edema/and tenderness, low grade fever, mild leukocytosis with +blood cultures Gram positive bacteremia Rt forearm cellulitis/abscess s/p drainage ESRD on HD DM CAD COPD Nicotine dependence PAD HTN HLD continue dapt wound care
[2019-09-02] MEDS: AMITRIPTYLINE HCL 25 MG TABLET PO SCH (21:23)
[2019-09-02] MEDS: ATORVASTATIN CA 80 MG TABLET (FP) PO SCH (21:23)
[2019-09-02] MEDS: ACETAMINOPHEN 325 MG TABLET (FP) PO PRN (21:23)
[2019-09-03] MEDS: CALCIUM ACETATE 667 MG CAPSULE (FP) PO SCH ×3 (08:37→17:12)
[2019-09-03] MEDS: SEVELAMER CARBONATE 800 MG TAB (FP) PO SCH ×3 (08:37→17:11)
[2019-09-03] MEDS: FERROUS SO4 325 MG TABLET (FP) PO SCH ×2 (08:37→17:11)
--- NOTE | 2019-09-03 08:45 | PN ---
Progress Note, Physician Chief Complaint: in bed NAD but upset because she does not want to go home said she wants to stay in H to finish her IV dapto; d/w pt she will get it during dialysis for 4 more doses but she is not happy; d/w CM - Current Medication List Current Medications: Active Medications Acetaminophen (Tylenol -) 650 mg PO Q6H PRN PRN Reason: FEVER Last Admin: 09/02/19 21:23 Dose: 650 mg Alprazolam (Xanax -) 0.25 mg PO Q12H PRN PRN Reason: ANXIETY Last Admin: 09/02/19 21:23 Dose: 0.25 mg Amitriptyline HCl (Elavil -) 50 mg PO HS [facility] Last Admin: 09/02/19 21:23 Dose: 50 mg Aspirin (Asa -) 81 mg PO DAILY [facility] Last Admin: 09/02/19 10:54 Dose: 81 mg Atorvastatin Calcium (Lipitor -) 80 mg PO HS [facility] Last Admin: 09/02/19 21:23 Dose: 80 mg Bacitracin (Bacitracin -) 1 applic TP DAILY [facility] Last Admin: 09/02/19 10:55 Dose: 1 applic Calcitriol (Rocaltrol -) 0.25 mcg PO DAILY [facility] Last Admin: 09/02/19 10:54 Dose: 0.25 mcg Calcium Acetate (Phoslo -) 667 mg PO TIDCM [facility] Last Admin: 09/03/19 08:37 Dose: 667 mg Cholestyramine Resin (Questran Light Packet -) 4 gm PO BID [facility] Last Admin: 09/02/19 21:24 Dose: Not Given Clopidogrel Bisulfate (Plavix -) 75 mg PO DAILY [facility] Last Admin: 09/02/19 10:54 Dose: 75 mg Ferrous Sulfate (Feosol -) 325 mg PO BIDWM [facility] Last Admin: 09/03/19 08:37 Dose: 325 mg Daptomycin 300 mg/ Sodium (Chloride) 50 mls @ 50 mls/hr IVPB MOWEFR [facility]; Protocol Last Admin: 09/02/19 10:34 Dose: 50 mls/hr Losartan Potassium (Cozaar -) 50 mg PO DAILY [facility] Last Admin: 09/02/19 10:55 Dose: 50 mg Nifedipine (Procardia Xl -) 60 mg PO DAILY [facility] Last Admin: 09/02/19 10:55 Dose: 60 mg Ondansetron HCl (Zofran Injection) 4 mg IVPUSH Q6H PRN PRN Reason: NAUSEA Ondansetron HCl (Zofran -) 4 mg PO BID PRN PRN Reason: NAUSEA AND/OR VOMITING Last Admin: 09/01/19 21:04 Dose: 4 mg Sevelamer Carbonate (Renvela -) 1,600 mg PO TIDCM [facility] Last Admin: 09/03/19 08:37 Dose: 1,600 mg - Objective Vital Signs: Vital Signs Temperature 98.4 F 09/03/19 06:00 Pulse Rate 90 09/03/19 06:00 Respiratory Rate 16 09/03/19 06:00 Blood Pressure 144/70 09/03/19 06:00 O2 Sat by Pulse Oximetry (%) 99 09/02/19 20:53 Constitutional: Yes: No Distress, Calm Eyes: Yes: Conjunctiva Clear HENT: Yes: Atraumatic Neck: Yes: Supple Cardiovascular: Yes: Regular Rate and Rhythm Respiratory: Yes: CTA Bilaterally Gastrointestinal: Yes: Soft. No: Tenderness Genitourinary: No: Hematuria Musculoskeletal: No: Joint Stiffness, Joint Swelling Extremities: No: Cold, Cool Edema: No Integumentary: Yes: Rash (RUE much improved) Neurological: Yes: Alert, Oriented ...Motor Strength: WNL Psychiatric: Yes: Alert, Oriented. No: Agitated, Suicidal Ideation Labs: CBC, BMP 09/02/19 07:00 09/02/19 07:00 INR, PTT INR 1.12 (0.83-1.09) H 08/24/19 10:30 - ....Imaging Other: Report Reviewed Assessment/Plan 84-year-old female with history of end-stage renal disease on hemodialysis, presents with worsening pain and erythema to the right upper extremity site catheter related thrombophlebitis, sepsis, positive blood cx ID and surgery f/u; IV ATB per ID dapto HD per renal prognosis guarded d.w pt and staff; d/w CM DC planning
[2019-09-03] MEDS: NIFEdipine E.R 60 MG TABLET PO SCH (09:56)
[2019-09-03] MEDS: BACITRACIN 15 GM TUBE TOPICAL OINTMENT TP SCH (09:56)
[2019-09-03] MEDS: CLOPIDOGREL BISULFATE 75 MG TABLET (FP) PO SCH (09:56)
[2019-09-03] MEDS: ASPIRIN 81 MG CHEWABLE TABLETS PO SCH (09:56)
[2019-09-03] MEDS: ALPRAZolam 0.25 MG TABLET PO PRN ×2 (09:56→21:03)
[2019-09-03] MEDS: CALCITRIOL 0.25 MCG CAPSULE (FP) PO SCH (09:56)
[2019-09-03] MEDS: CHOLESTYRAMINE/ASPARTAME 4 GM PACKET PO SCH ×2 (09:56→21:03)
[2019-09-03] MEDS: LOSARTAN POTASSIUM 50 MG TABLET (FP) PO SCH (09:56)
[2019-09-03] MEDS ORDERED: SODIUM CHLORIDE 250 ML IV PRN (12:28)
--- NOTE | 2019-09-03 17:48 | PN ---
Progress Note (short form) - Note Progress Note: Vascular Surgery Pt seen and examined. Right arm looks much better. Pt still has phlebitis. Can place warm compresses. No need to do I&D , as arm has improved. Pt to follow up in wound care clinic Bob nichols DO
[2019-09-03] MEDS: ATORVASTATIN CA 80 MG TABLET (FP) PO SCH (21:03)
[2019-09-03] MEDS: AMITRIPTYLINE HCL 25 MG TABLET PO SCH (21:03)
--- NOTE | 2019-09-04 07:02 | PN ---
Progress Note, Physician History of Present Illness: doing well hand has improved blood cx clear - Current Medication List Current Medications: Active Medications Acetaminophen (Tylenol -) 650 mg PO Q6H PRN PRN Reason: FEVER Last Admin: 09/02/19 21:23 Dose: 650 mg Alprazolam (Xanax -) 0.25 mg PO Q12H PRN PRN Reason: ANXIETY Last Admin: 09/03/19 21:03 Dose: 0.25 mg Amitriptyline HCl (Elavil -) 50 mg PO HS [facility] Last Admin: 09/03/19 21:03 Dose: 50 mg Aspirin (Asa -) 81 mg PO DAILY [facility] Last Admin: 09/03/19 09:56 Dose: 81 mg Atorvastatin Calcium (Lipitor -) 80 mg PO [facility] Last Admin: 09/03/19 21:03 Dose: 80 mg Bacitracin (Bacitracin -) 1 applic TP DAILY [facility] Last Admin: 09/03/19 09:56 Dose: 1 applic Calcitriol (Rocaltrol -) 0.25 mcg PO DAILY [facility] Last Admin: 09/03/19 09:56 Dose: 0.25 mcg Calcium Acetate (Phoslo -) 667 mg PO TIDCM [facility] Last Admin: 09/03/19 17:12 Dose: 667 mg Cholestyramine Resin (Questran Light Packet -) 4 gm PO BID [facility] Last Admin: 09/03/19 21:03 Dose: Not Given Clopidogrel Bisulfate (Plavix -) 75 mg PO DAILY [facility] Last Admin: 09/03/19 09:56 Dose: 75 mg Epoetin Paco (Epogen -) 20,000 unit IVPUSH ONCE ONE Stop: 09/04/19 07:01 Ferrous Sulfate (Feosol -) 325 mg PO BIDWM [facility] Last Admin: 09/03/19 17:11 Dose: 325 mg Heparin Sodium (Porcine) (Heparin -) 300 unit IVPUSH Q1H [facility] Stop: 09/04/19 09:01 Daptomycin 300 mg/ Sodium (Chloride) 50 mls @ 50 mls/hr IVPB MOWEFR [facility]; Protocol Last Admin: 09/02/19 10:34 Dose: 50 mls/hr Sodium Chloride (Normal Saline -) 250 mls @ 3,000 mls/hr IV PRN PRN PRN Reason: Hypotension during Dialysis Stop: 09/04/19 12:28 Losartan Potassium (Cozaar -) 50 mg PO DAILY [facility] Last Admin: 09/03/19 09:56 Dose: 50 mg Nifedipine (Procardia Xl -) 60 mg PO DAILY [facility] Last Admin: 09/03/19 09:56 Dose: 60 mg Ondansetron HCl (Zofran Injection) 4 mg IVPUSH Q6H PRN PRN Reason: NAUSEA Ondansetron HCl (Zofran -) 4 mg PO BID PRN PRN Reason: NAUSEA AND/OR VOMITING Last Admin: 09/01/19 21:04 Dose: 4 mg Sevelamer Carbonate (Renvela -) 1,600 mg PO TIDCM [facility] Last Admin: 09/03/19 17:11 Dose: 1,600 mg - Objective Vital Signs: Vital Signs Temperature 98.1 F 09/04/19 06:00 Pulse Rate 81 09/04/19 06:00 Respiratory Rate 18 09/04/19 06:00 Blood Pressure 152/61 09/04/19 06:00 O2 Sat by Pulse Oximetry (%) 99 09/03/19 21:00 Constitutional: Yes: No Distress, Calm Neck: Yes: Supple Cardiovascular: Yes: S1, S2 Respiratory: Yes: Regular, CTA Bilaterally Gastrointestinal: Yes: Normal Bowel Sounds, Soft Musculoskeletal: Yes: Other Integumentary: Yes: Erythema (of the hand improved,some induration still present ), Other Neurological: Yes: Alert, Oriented Psychiatric: Yes: Alert, Oriented Labs: CBC, BMP 09/02/19 07:00 09/02/19 07:00 INR, PTT INR 1.12 (0.83-1.09) H 08/24/19 10:30 Assessment/Plan Problem List - Problems (1) Cellulitis of right upper extremity Code(s): L03.113 - CELLULITIS OF RIGHT UPPER LIMB (2) Anemia Code(s): D64.9 - ANEMIA, UNSPECIFIED Qualifiers: (3) Anxiety Code(s): F41.9 - ANXIETY DISORDER, UNSPECIFIED (4) CAD (coronary artery disease) Code(s): I25.10 - ATHSCL HEART DISEASE OF [place] CORONARY ARTERY W/O ANG PCTRS Qualifiers: Coronary Disease-Associated Artery/Lesion type: [place] artery [place] vs. transplanted heart: [place] heart Associated angina: without angina Qualified Code(s): I25.10 - Atherosclerotic heart disease of [place] coronary artery without angina pectoris (5) COPD (chronic obstructive pulmonary disease) Code(s): J44.9 - CHRONIC OBSTRUCTIVE PULMONARY DISEASE, UNSPECIFIED Qualifiers: COPD type: unspecified COPD Qualified Code(s): J44.9 - Chronic obstructive pulmonary disease, unspecified (6) Cigarette nicotine dependence Code(s): F17.210 - NICOTINE DEPENDENCE, CIGARETTES, UNCOMPLICATED (7) Diabetes mellitus Code(s): E11.9 - TYPE 2 DIABETES MELLITUS WITHOUT COMPLICATIONS Qualifiers: Diabetes mellitus type: type 2 Diabetes mellitus complication status: with kidney complications Diabetes mellitus complication detail: with chronic kidney disease Chronic kidney disease stage: on chronic dialysis (8) ESRD (end stage renal disease) on dialysis Code(s): N18.6 - END STAGE RENAL DISEASE; Z99.2 - DEPENDENCE ON RENAL DIALYSIS (9) HTN (hypertension) Code(s): I10 - ESSENTIAL (PRIMARY) HYPERTENSION Qualifiers: Hypertension type: unspecified Qualified Code(s): I10 - Essential (primary ) hypertension (10) Hx of antibiotic allergy Code(s): Z88.1 - ALLERGY STATUS TO OTHER ANTIBIOTIC AGENTS STATUS (11) Hyperlipidemia Code(s): E78.5 - HYPERLIPIDEMIA, UNSPECIFIED Qualifiers: Hyperlipidemia type: pure hypercholesterolemia Qualified Code(s): E78.00 - Pure hypercholesterolemia, unspecified; E78.0 - Pure hypercholesterolemia (12) PAD (peripheral artery disease) Code(s): I73.9 - PERIPHERAL VASCULAR DISEASE, UNSPECIFIED (13) S/P femoropopliteal bypass surgery Code(s): Z95.828 - PRESENCE OF OTHER VASCULAR IMPLANTS AND GRAFTS Assessment/Plan 84 y.o. female with PMH of ESRD on HD, CAD, NSTEMI, DM, COPD, active smoker, HTN , PAD s/p Rt fem-pop bypass, Rt toe amp, HTN, HLD presents with complaints of worsening Rt forearm erythema/edema/and tenderness, low grade fever, mild leukocytosis with +blood cultures Gram positive bacteremia Rt forearm cellulitis/abscess s/p drainage ESRD on HD DM CAD COPD Nicotine dependence PAD HTN HLD plan patient needs 4 more doses of dapto which can be given during dialysis rest as per the team
[2019-09-04] MEDS: FERROUS SO4 325 MG TABLET (FP) PO SCH ×2 (08:59→17:51)
[2019-09-04] MEDS: SEVELAMER CARBONATE 800 MG TAB (FP) PO SCH ×3 (08:59→17:52)
[2019-09-04] MEDS: CALCIUM ACETATE 667 MG CAPSULE (FP) PO SCH ×3 (08:59→17:52)
[2019-09-04] MEDS: ALPRAZolam 0.25 MG TABLET PO PRN ×2 (09:29→21:11)
--- NOTE | 2019-09-04 09:49 | DS ---
Physical Examination Vital Signs: Vital Signs Temperature 98.8 F 09/04/19 08:58 Pulse Rate 97 H 09/04/19 08:58 Respiratory Rate 18 09/04/19 08:58 Blood Pressure 170/95 09/04/19 08:58 O2 Sat by Pulse Oximetry (%) 99 09/03/19 21:00 Findings/Remarks: in bed NAD VSS in good spirits feeling well no pain n o fever chills; d/w pt and d/w cm Keyshawn AND RENAL DR Goyal - per ID dr Vasquez pt needs 3 more doses dapto IV during HD; she will get from H 1 dose for this Monday (today is monday) then the HD cenetr will give her 2 more doses next week; d/w pt impprtant to go to HD as scheduled she said she knows t time 45 min Constitutional: Yes: No Distress, Calm Eyes: Yes: Conjunctiva Clear HENT: Yes: Atraumatic Neck: Yes: Supple Cardiovascular: Yes: Regular Rate and Rhythm Respiratory: Yes: CTA Bilaterally Gastrointestinal: Yes: Soft. No: Tenderness Renal/: No: Hematuria Musculoskeletal: No: Joint Stiffness, Joint Swelling Extremities: No: Cold, Cool Edema: No Integumentary: Yes: Rash (RUE much better no abscess no fluctuence no tenderness ) Neurological: Yes: WNL, Alert, Oriented ...Motor Strength: WNL Psychiatric: Yes: WNL, Alert, Oriented. No: Agitated, Suicidal Ideation Labs: CBC, BMP 09/02/19 07:00 09/02/19 07:00 Discharge Summary Problems reviewed: Yes Reason For Visit: CELLULITIS OF RT UPPER EXTREMITY/DIABETES MELLITUS Current Active Problems Abscess of arm, right (Acute) Cellulitis of right upper extremity (Acute) ESRD (end stage renal disease) on dialysis (Acute) Procedures: Principal: 84 YOF ASHD HTN DM PVD ESRD / HD noncompliant admitted with RUE phlebitis and sepsis, blood cx + staph; IV dapto per ID during HD repeat blood cx negative Other Procedures: HD per renal; seen by surgery for I&D RUE abscess / phlebitis Hospital Course: improved with above; DC home and f/u as advised; strongly advised to be compliant with meds and HD and treatment as d/w pt Condition: Improved - Instructions Referrals: Angela Barahona [Primary Care Provider] - Bob Jane DO [Staff Physician] - Quentin Goyal MD [Staff Physician] - Oswaldo Lam MD [Staff Physician] - - Home Medications Comprehensive Discharge Medication List: Ambulatory Orders Alprazolam [Xanax] 0.25 mg PO BID PRN 02/19/19 Aspirin [ASA -] 81 mg PO DAILY 02/19/19 Calcitriol [Calcitriol -] 0.25 mcg PO DAILY 02/19/19 Calcium Acetate 667 mg PO TID 02/19/19 Carvedilol [Coreg -] 6.25 mg PO BID 02/19/19 Acetaminophen [Tylenol .Regular Strength -] 650 mg PO Q6H PRN tablet 04/19/19 Ferrous Sulfate 325 mg PO BID 05/25/19 Nifedipine ER [Procardia XL -] 120 mg PO DAILY #180 tab.er.24 05/28/19 Amitriptyline HCl [Elavil -] 50 mg PO HS #30 tablet 06/07/19 Sevelamer Carbonate [Renvela -] 1,600 mg PO TIDCM tab 06/07/19 Cholestyramine/Aspartame [Questran Light Packet -] 4 gm PO BID packet 07/05/19 Ondansetron [Zofran -] 4 mg PO BID PRN tablet 07/12/19 Losartan Potassium [Cozaar -] 100 mg PO DAILY 08/09/19 Atorvastatin Ca [Lipitor] 80 mg PO HS #90 tablet 08/21/19 Clopidogrel Bisulfate [Plavix -] 75 mg PO DAILY #90 tablet 08/21/19 Isosorbide Mononitrate [Imdur -] 30 mg PO DAILY #90 tab.sr.24h 08/21/19
[2019-09-04] MEDS ORDERED: EPOETIN ALFA 20,000 UNIT/1 ML VIAL IVPUSH ONE (10:15)
[2019-09-04 11:16] LABS: HEMATOCRIT 26.1 % (32.4-45.2); HEMOGLOBIN 8.6 GM/dL (10.7-15.3); MCHC 32.9 g/dl (32.0-36.0); MEAN CELL VOLUME 97.5 fl (80-96); MEAN PLT VOLUME 8.6 fl (7.5-11.1); PLATELET COUNT 332 K/MM3 (134-434); RBC 2.68 M/mm3 (3.60-5.2); RDW 16.1 % (11.6-15.6); WHITE BLOOD COUNT 5.9 K/mm3 (4.0-10.0)
--- NOTE | 2019-09-04 11:19 | PN ---
Progress Note, Physician History of Present Illness: stable no new issues hand improving - Current Medication List Current Medications: Active Medications Acetaminophen (Tylenol -) 650 mg PO Q6H PRN PRN Reason: FEVER Last Admin: 09/02/19 21:23 Dose: 650 mg Alprazolam (Xanax -) 0.25 mg PO Q12H PRN PRN Reason: ANXIETY Last Admin: 09/04/19 09:29 Dose: 0.25 mg Amitriptyline HCl (Elavil -) 50 mg PO HS [facility] Last Admin: 09/03/19 21:03 Dose: 50 mg Aspirin (Asa -) 81 mg PO DAILY [facility] Last Admin: 09/03/19 09:56 Dose: 81 mg Atorvastatin Calcium (Lipitor -) 80 mg PO [facility] Last Admin: 09/03/19 21:03 Dose: 80 mg Bacitracin (Bacitracin -) 1 applic TP DAILY [facility] Last Admin: 09/03/19 09:56 Dose: 1 applic Calcitriol (Rocaltrol -) 0.25 mcg PO DAILY [facility] Last Admin: 09/03/19 09:56 Dose: 0.25 mcg Calcium Acetate (Phoslo -) 667 mg PO TIDCM [facility] Last Admin: 09/04/19 08:59 Dose: 667 mg Cholestyramine Resin (Questran Light Packet -) 4 gm PO BID [facility] Last Admin: 09/03/19 21:03 Dose: Not Given Clopidogrel Bisulfate (Plavix -) 75 mg PO DAILY [facility] Last Admin: 09/03/19 09:56 Dose: 75 mg Ferrous Sulfate (Feosol -) 325 mg PO BIDWM [facility] Last Admin: 09/04/19 08:59 Dose: 325 mg Heparin Sodium (Porcine) (Heparin -) 300 unit IVPUSH Q1H [facility] Stop: 09/04/19 13:16 Daptomycin 300 mg/ Sodium (Chloride) 50 mls @ 50 mls/hr IVPB MOWEFR [facility]; Protocol Last Admin: 09/02/19 10:34 Dose: 50 mls/hr Sodium Chloride (Normal Saline -) 250 mls @ 3,000 mls/hr IV PRN PRN PRN Reason: Hypotension during Dialysis Stop: 09/04/19 12:28 Losartan Potassium (Cozaar -) 50 mg PO DAILY [facility] Last Admin: 09/03/19 09:56 Dose: 50 mg Nifedipine (Procardia Xl -) 60 mg PO DAILY [facility] Last Admin: 09/03/19 09:56 Dose: 60 mg Ondansetron HCl (Zofran Injection) 4 mg IVPUSH Q6H PRN PRN Reason: NAUSEA Ondansetron HCl (Zofran -) 4 mg PO BID PRN PRN Reason: NAUSEA AND/OR VOMITING Last Admin: 09/01/19 21:04 Dose: 4 mg Sevelamer Carbonate (Renvela -) 1,600 mg PO TIDCM [facility] Last Admin: 09/04/19 08:59 Dose: 1,600 mg - Objective Vital Signs: Vital Signs Temperature 98.2 F 09/04/19 10:20 Pulse Rate 84 09/04/19 10:30 Respiratory Rate 18 09/04/19 10:30 Blood Pressure 135/74 09/04/19 10:30 O2 Sat by Pulse Oximetry (%) 99 09/03/19 21:00 Constitutional: Yes: No Distress, Calm Cardiovascular: Yes: S1, S2 Respiratory: Yes: Regular, CTA Bilaterally Gastrointestinal: Yes: Normal Bowel Sounds, Soft Musculoskeletal: Yes: Other Extremities: Yes: Erythema (improving), Other Neurological: Yes: Alert, Oriented Psychiatric: Yes: Alert, Oriented Labs: INR, PTT INR 1.12 (0.83-1.09) H 08/24/19 10:30 Assessment/Plan Problem List - Problems (1) Cellulitis of right upper extremity Code(s): L03.113 - CELLULITIS OF RIGHT UPPER LIMB (2) Anemia Code(s): D64.9 - ANEMIA, UNSPECIFIED Qualifiers: (3) Anxiety Code(s): F41.9 - ANXIETY DISORDER, UNSPECIFIED (4) CAD (coronary artery disease) Code(s): I25.10 - ATHSCL HEART DISEASE OF [place] CORONARY ARTERY W/O ANG PCTRS Qualifiers: Coronary Disease-Associated Artery/Lesion type: [place] artery [place] vs. transplanted heart: [place] heart Associated angina: without angina Qualified Code(s): I25.10 - Atherosclerotic heart disease of [place] coronary artery without angina pectoris (5) COPD (chronic obstructive pulmonary disease) Code(s): J44.9 - CHRONIC OBSTRUCTIVE PULMONARY DISEASE, UNSPECIFIED Qualifiers: COPD type: unspecified COPD Qualified Code(s): J44.9 - Chronic obstructive pulmonary disease, unspecified (6) Cigarette nicotine dependence Code(s): F17.210 - NICOTINE DEPENDENCE, CIGARETTES, UNCOMPLICATED (7) Diabetes mellitus Code(s): E11.9 - TYPE 2 DIABETES MELLITUS WITHOUT COMPLICATIONS Qualifiers: Diabetes mellitus type: type 2 Diabetes mellitus complication status: with kidney complications Diabetes mellitus complication detail: with chronic kidney disease Chronic kidney disease stage: on chronic dialysis (8) ESRD (end stage renal disease) on dialysis Code(s): N18.6 - END STAGE RENAL DISEASE; Z99.2 - DEPENDENCE ON RENAL DIALYSIS (9) HTN (hypertension) Code(s): I10 - ESSENTIAL (PRIMARY) HYPERTENSION Qualifiers: Hypertension type: unspecified Qualified Code(s): I10 - Essential (primary ) hypertension (10) Hx of antibiotic allergy Code(s): Z88.1 - ALLERGY STATUS TO OTHER ANTIBIOTIC AGENTS STATUS (11) Hyperlipidemia Code(s): E78.5 - HYPERLIPIDEMIA, UNSPECIFIED Qualifiers: Hyperlipidemia type: pure hypercholesterolemia Qualified Code(s): E78.00 - Pure hypercholesterolemia, unspecified; E78.0 - Pure hypercholesterolemia (12) PAD (peripheral artery disease) Code(s): I73.9 - PERIPHERAL VASCULAR DISEASE, UNSPECIFIED (13) S/P femoropopliteal bypass surgery Code(s): Z95.828 - PRESENCE OF OTHER VASCULAR IMPLANTS AND GRAFTS Assessment/Plan 84 y.o. female with PMH of ESRD on HD, CAD, NSTEMI, DM, COPD, active smoker, HTN , PAD s/p Rt fem-pop bypass, Rt toe amp, HTN, HLD presents with complaints of worsening Rt forearm erythema/edema/and tenderness, low grade fever, mild leukocytosis with +blood cultures Gram positive bacteremia Rt forearm cellulitis/abscess s/p drainage ESRD on HD DM CAD COPD Nicotine dependence PAD HTN HLD plan 3 more doses after todays dose during dialysis rest continue current mgmt
[2019-09-04] MEDS: HEPARIN NA (PORCINE) 5,000 UNITS/ML 1ML VIAL IVPUSH SCH ×3 (11:20→13:59)
[2019-09-04 11:49] LABS: BLOOD UREA NITROGEN 29.7 mg/dL (7-18); CALCIUM 7.7 mg/dL (8.5-10.1); POTASSIUM 3.9 mmol/L (3.5-5.1)
--- NOTE | 2019-09-04 13:53 | PN ---
Progress Note (short form) - Note Progress Note: Renal follow up for ESRD on HD Seen and examined at the bedside during dialysis BP stable, catheter with good flow pt offers no acute complaints hand is improving Vital Signs Temperature 98.2 F 09/04/19 10:20 Pulse Rate 94 H 09/04/19 12:00 Respiratory Rate 18 09/04/19 12:00 Blood Pressure 162/100 09/04/19 12:00 O2 Sat by Pulse Oximetry (%) 99 09/03/19 21:00 Intake & Output 09/01/19 09/02/19 09/03/19 09/04/19 23:59 23:59 23:59 23:59 Intake Total 340 1050 1445 800 Output Total 1501 Balance 340 -451 1445 800 Weight 47.797 kg 48.988 kg 48.625 kg NAD RRR CTA soft NT/ND no LE edema tunneled HD catheter in place, no cyanosis or clubbing erythema and induration over right forearm CBC, BMP 09/04/19 11:00 09/04/19 11:00 Current Medications Acetaminophen (Tylenol -) 650 mg PO Q6H PRN PRN Reason: FEVER Last Admin: 09/02/19 21:23 Dose: 650 mg Alprazolam (Xanax -) 0.25 mg PO Q12H PRN PRN Reason: ANXIETY Last Admin: 09/04/19 09:29 Dose: 0.25 mg Amitriptyline HCl (Elavil -) 50 mg PO HS [facility] Last Admin: 09/03/19 21:03 Dose: 50 mg Aspirin (Asa -) 81 mg PO DAILY [facility] Last Admin: 09/03/19 09:56 Dose: 81 mg Atorvastatin Calcium (Lipitor -) 80 mg PO HS [facility] Last Admin: 09/03/19 21:03 Dose: 80 mg Bacitracin (Bacitracin -) 1 applic TP DAILY [facility] Last Admin: 09/03/19 09:56 Dose: 1 applic Calcitriol (Rocaltrol -) 0.25 mcg PO DAILY [facility] Last Admin: 09/03/19 09:56 Dose: 0.25 mcg Calcium Acetate (Phoslo -) 667 mg PO TIDCM [facility] Last Admin: 09/04/19 08:59 Dose: 667 mg Cholestyramine Resin (Questran Light Packet -) 4 gm PO BID [facility] Last Admin: 09/03/19 21:03 Dose: Not Given Clopidogrel Bisulfate (Plavix -) 75 mg PO DAILY [facility] Last Admin: 09/03/19 09:56 Dose: 75 mg Ferrous Sulfate (Feosol -) 325 mg PO BIDWM [facility] Last Admin: 09/04/19 08:59 Dose: 325 mg Daptomycin 300 mg/ Sodium (Chloride) 50 mls @ 50 mls/hr IVPB MOWEFR [facility]; Protocol Last Admin: 09/02/19 10:34 Dose: 50 mls/hr Losartan Potassium (Cozaar -) 50 mg PO DAILY [facility] Last Admin: 09/03/19 09:56 Dose: 50 mg Nifedipine (Procardia Xl -) 60 mg PO DAILY [facility] Last Admin: 09/03/19 09:56 Dose: 60 mg Ondansetron HCl (Zofran Injection) 4 mg IVPUSH Q6H PRN PRN Reason: NAUSEA Ondansetron HCl (Zofran -) 4 mg PO BID PRN PRN Reason: NAUSEA AND/OR VOMITING Last Admin: 09/01/19 21:04 Dose: 4 mg Sevelamer Carbonate (Renvela -) 1,600 mg PO TIDCM [facility] Last Admin: 09/04/19 08:59 Dose: 1,600 mg 84 year old woman with history of ESRD no HD (), DM, hypertension, CAD with recent NSTEMI, PVD, current smoker presents from home with boil on her right arm. 1. ESRD on HD 2. Abscess on arm 3. Gram positive bacteremia 4. Hypertension 5. CAD 6. Anemia tolerated dialysis well Continue IV Dapto as per ID Repeat cultures w/o growth thus far appears as though outpatient dialysis unit cannot administer outside sourced antibiotics may need to stay in hospital until Monday Thank you Quentin Goyal DO
[2019-09-04] MEDS: DAPTOMYCIN 300 MG in SODIUM CHLORIDE 50 ML IVPB SCH (13:58)
[2019-09-04] MEDS: ASPIRIN 81 MG CHEWABLE TABLETS PO SCH (15:21)
[2019-09-04] MEDS: CALCITRIOL 0.25 MCG CAPSULE (FP) PO SCH (15:21)
[2019-09-04] MEDS: CLOPIDOGREL BISULFATE 75 MG TABLET (FP) PO SCH (15:22)
[2019-09-04] MEDS: NIFEdipine E.R 60 MG TABLET PO SCH (15:22)
[2019-09-04] MEDS: LOSARTAN POTASSIUM 50 MG TABLET (FP) PO SCH (15:22)
[2019-09-04] MEDS: CHOLESTYRAMINE/ASPARTAME 4 GM PACKET PO SCH ×2 (15:29→21:12)
[2019-09-04] MEDS: BACITRACIN 15 GM TUBE TOPICAL OINTMENT TP SCH (15:30)
[2019-09-04] MEDS: AMITRIPTYLINE HCL 25 MG TABLET PO SCH (21:11)
[2019-09-04] MEDS: ATORVASTATIN CA 80 MG TABLET (FP) PO SCH (21:11)
[2019-09-04] MEDS: ACETAMINOPHEN 325 MG TABLET (FP) PO PRN (22:42)
[2019-09-05] MEDS: ALPRAZolam 0.25 MG TABLET PO PRN ×2 (07:00→19:51)
[2019-09-05] MEDS: FERROUS SO4 325 MG TABLET (FP) PO SCH ×2 (09:02→17:37)
[2019-09-05] MEDS: SEVELAMER CARBONATE 800 MG TAB (FP) PO SCH ×3 (09:02→17:37)
[2019-09-05] MEDS: CALCIUM ACETATE 667 MG CAPSULE (FP) PO SCH ×3 (09:03→17:38)
[2019-09-05] MEDS: LOSARTAN POTASSIUM 50 MG TABLET (FP) PO SCH (09:04)
[2019-09-05] MEDS: ASPIRIN 81 MG CHEWABLE TABLETS PO SCH (09:04)
[2019-09-05] MEDS: NIFEdipine E.R 60 MG TABLET PO SCH (09:05)
[2019-09-05] MEDS: CLOPIDOGREL BISULFATE 75 MG TABLET (FP) PO SCH (09:05)
[2019-09-05] MEDS: CALCITRIOL 0.25 MCG CAPSULE (FP) PO SCH (09:05)
[2019-09-05] MEDS: CHOLESTYRAMINE/ASPARTAME 4 GM PACKET PO SCH ×2 (09:06→21:12)
[2019-09-05] MEDS ORDERED: PT OWN MED DRAWER 7, Y5N ONE (09:20)
--- NOTE | 2019-09-05 10:27 | PN ---
Progress Note, Physician Chief Complaint: feeling well R arm abscess very much improved - Current Medication List Current Medications: Active Medications Acetaminophen (Tylenol -) 650 mg PO Q6H PRN PRN Reason: FEVER Last Admin: 09/04/19 22:42 Dose: 650 mg Alprazolam (Xanax -) 0.25 mg PO Q12H PRN PRN Reason: ANXIETY Last Admin: 09/05/19 07:00 Dose: 0.25 mg Amitriptyline HCl (Elavil -) 50 mg PO [facility] Last Admin: 09/04/19 21:11 Dose: 50 mg Aspirin (Asa -) 81 mg PO DAILY [facility] Last Admin: 09/05/19 09:04 Dose: 81 mg Atorvastatin Calcium (Lipitor -) 80 mg PO [facility] Last Admin: 09/04/19 21:11 Dose: 80 mg Bacitracin (Bacitracin -) 1 applic TP DAILY [facility] Last Admin: 09/04/19 15:30 Dose: 1 applic Calcitriol (Rocaltrol -) 0.25 mcg PO DAILY [facility] Last Admin: 09/05/19 09:05 Dose: 0.25 mcg Calcium Acetate (Phoslo -) 667 mg PO TIDCM [facility] Last Admin: 09/05/19 09:03 Dose: 667 mg Cholestyramine Resin (Questran Light Packet -) 4 gm PO BID [facility] Last Admin: 09/05/19 09:06 Dose: Not Given Clopidogrel Bisulfate (Plavix -) 75 mg PO DAILY [facility] Last Admin: 09/05/19 09:05 Dose: 75 mg Ferrous Sulfate (Feosol -) 325 mg PO BIDWM [facility] Last Admin: 09/05/19 09:02 Dose: 325 mg Daptomycin 300 mg/ Sodium (Chloride) 50 mls @ 50 mls/hr IVPB MOWEFR [facility]; Protocol Last Admin: 09/04/19 13:58 Dose: 50 mls/hr Losartan Potassium (Cozaar -) 50 mg PO DAILY [facility] Last Admin: 09/05/19 09:04 Dose: 50 mg Nifedipine (Procardia Xl -) 60 mg PO DAILY [facility] Last Admin: 09/05/19 09:05 Dose: 60 mg Ondansetron HCl (Zofran Injection) 4 mg IVPUSH Q6H PRN PRN Reason: NAUSEA Ondansetron HCl (Zofran -) 4 mg PO BID PRN PRN Reason: NAUSEA AND/OR VOMITING Last Admin: 09/01/19 21:04 Dose: 4 mg Sevelamer Carbonate (Renvela -) 1,600 mg PO TIDCM [facility] Last Admin: 09/05/19 09:02 Dose: 1,600 mg - Objective Vital Signs: Vital Signs Temperature 98.2 F 09/05/19 09:24 Pulse Rate 90 09/05/19 09:24 Respiratory Rate 18 09/05/19 09:24 Blood Pressure 173/85 H 09/05/19 09:24 O2 Sat by Pulse Oximetry (%) 99 09/05/19 09:00 Constitutional: Yes: No Distress Eyes: Yes: Conjunctiva Clear HENT: Yes: Atraumatic Neck: Yes: Supple Cardiovascular: Yes: Regular Rate and Rhythm Respiratory: Yes: CTA Bilaterally Gastrointestinal: Yes: Soft. No: Tenderness Genitourinary: No: Hematuria Musculoskeletal: No: Joint Stiffness, Joint Swelling Extremities: No: Cold, Cool, Cyanosis Edema: No Integumentary: No: Rash, Venous Stasis Changes Neurological: Yes: Alert, Oriented ...Motor Strength: WNL Psychiatric: Yes: Alert, Oriented. No: Agitated Labs: CBC, BMP 09/04/19 11:00 09/04/19 11:00 INR, PTT INR 1.12 (0.83-1.09) H 08/24/19 10:30 - ....Imaging Other: Report Reviewed Assessment/Plan 84-year-old female with history of end-stage renal disease on hemodialysis, presents with worsening pain and erythema to the right upper extremity site, catheter related thrombophlebitis, sepsis, positive blood cx ID and surgery f/u; IV ATB per ID dapto HD per renal prognosis guarded d.w pt and staff; d/w CM DC planning
[2019-09-05] MEDS: BACITRACIN 15 GM TUBE TOPICAL OINTMENT TP SCH (12:23)
--- NOTE | 2019-09-05 13:37 | PN ---
Progress Note, Physician History of Present Illness: stable - Current Medication List Current Medications: Active Medications Acetaminophen (Tylenol -) 650 mg PO Q6H PRN PRN Reason: FEVER Last Admin: 09/04/19 22:42 Dose: 650 mg Alprazolam (Xanax -) 0.25 mg PO Q12H PRN PRN Reason: ANXIETY Last Admin: 09/05/19 07:00 Dose: 0.25 mg Amitriptyline HCl (Elavil -) 50 mg PO HS [facility] Last Admin: 09/04/19 21:11 Dose: 50 mg Aspirin (Asa -) 81 mg PO DAILY [facility] Last Admin: 09/05/19 09:04 Dose: 81 mg Atorvastatin Calcium (Lipitor -) 80 mg PO HS [facility] Last Admin: 09/04/19 21:11 Dose: 80 mg Bacitracin (Bacitracin -) 1 applic TP DAILY [facility] Last Admin: 09/05/19 12:23 Dose: 1 applic Calcitriol (Rocaltrol -) 0.25 mcg PO DAILY [facility] Last Admin: 09/05/19 09:05 Dose: 0.25 mcg Calcium Acetate (Phoslo -) 667 mg PO TIDCM [facility] Last Admin: 09/05/19 12:19 Dose: 667 mg Cholestyramine Resin (Questran Light Packet -) 4 gm PO BID [facility] Last Admin: 09/05/19 09:06 Dose: Not Given Clopidogrel Bisulfate (Plavix -) 75 mg PO DAILY [facility] Last Admin: 09/05/19 09:05 Dose: 75 mg Epoetin Paco (Epogen -) 10,000 unit IVPUSH ONCE ONE Stop: 09/06/19 07:01 Ferrous Sulfate (Feosol -) 325 mg PO BIDWM [facility] Last Admin: 09/05/19 09:02 Dose: 325 mg Heparin Sodium (Porcine) (Heparin -) 300 unit IVPUSH Q1H [facility] Stop: 09/06/19 09:01 Daptomycin 300 mg/ Sodium (Chloride) 50 mls @ 50 mls/hr IVPB MOWEFR [facility]; Protocol Last Admin: 09/04/19 13:58 Dose: 50 mls/hr Sodium Chloride (Normal Saline -) 250 mls @ 3,000 mls/hr IV PRN PRN PRN Reason: Hypotension during Dialysis Stop: 09/06/19 13:30 Losartan Potassium (Cozaar -) 50 mg PO DAILY [facility] Last Admin: 09/05/19 09:04 Dose: 50 mg Nifedipine (Procardia Xl -) 60 mg PO DAILY [facility] Last Admin: 09/05/19 09:05 Dose: 60 mg Ondansetron HCl (Zofran Injection) 4 mg IVPUSH Q6H PRN PRN Reason: NAUSEA Ondansetron HCl (Zofran -) 4 mg PO BID PRN PRN Reason: NAUSEA AND/OR VOMITING Last Admin: 09/01/19 21:04 Dose: 4 mg Sevelamer Carbonate (Renvela -) 1,600 mg PO TIDCM [facility] Last Admin: 09/05/19 12:18 Dose: 1,600 mg - Objective Vital Signs: Vital Signs Temperature 98.2 F 09/05/19 09:24 Pulse Rate 90 09/05/19 09:24 Respiratory Rate 18 09/05/19 09:24 Blood Pressure 173/85 H 09/05/19 09:24 O2 Sat by Pulse Oximetry (%) 99 09/05/19 09:00 Labs: CBC, BMP 09/04/19 11:00 09/04/19 11:00 INR, PTT INR 1.12 (0.83-1.09) H 08/24/19 10:30
[2019-09-05] MEDS ORDERED: DOCUSATE SODIUM 100 MG CAPSULE (FP) PO PRN (14:13)
[2019-09-05] MEDS ORDERED: ONDANSETRON *ODT* 4 MG TABLET SL PRN (19:57)
[2019-09-05] MEDS: AMITRIPTYLINE HCL 25 MG TABLET PO SCH (21:11)
[2019-09-05] MEDS: ATORVASTATIN CA 80 MG TABLET (FP) PO SCH (21:11)
--- NOTE | 2019-09-06 05:58 | PN ---
Progress Note, Physician Chief Complaint: no pain no fever RUE rash almost resolved completely as previosuly d/w ID and CM pt will receive 1 dose dapto iv during today Monday HD then go home and have outpt 2 more doses IV dapto Monday and Monday HD d /w pt she is well aware and said she will dop as advised pt asked for xanax tid instead of bid for anxiety; d/w pt possible risks and SE fall tolerance dependence she is aware - I suggested psychiatry eval but she does not want to - Current Medication List Current Medications: Active Medications Acetaminophen (Tylenol -) 650 mg PO Q6H PRN PRN Reason: FEVER Last Admin: 09/04/19 22:42 Dose: 650 mg Alprazolam (Xanax -) 0.25 mg PO Q12H PRN PRN Reason: ANXIETY Last Admin: 09/05/19 19:51 Dose: 0.25 mg Amitriptyline HCl (Elavil -) 50 mg PO HS [facility] Last Admin: 09/05/19 21:11 Dose: 50 mg Aspirin (Asa -) 81 mg PO DAILY [facility] Last Admin: 09/05/19 09:04 Dose: 81 mg Atorvastatin Calcium (Lipitor -) 80 mg PO HS [facility] Last Admin: 09/05/19 21:11 Dose: 80 mg Bacitracin (Bacitracin -) 1 applic TP DAILY [facility] Last Admin: 09/05/19 12:23 Dose: 1 applic Calcitriol (Rocaltrol -) 0.25 mcg PO DAILY [facility] Last Admin: 09/05/19 09:05 Dose: 0.25 mcg Calcium Acetate (Phoslo -) 667 mg PO TIDCM [facility] Last Admin: 09/05/19 17:38 Dose: 667 mg Cholestyramine Resin (Questran Light Packet -) 4 gm PO BID [facility] Last Admin: 09/05/19 21:12 Dose: Not Given Clopidogrel Bisulfate (Plavix -) 75 mg PO DAILY [facility] Last Admin: 09/05/19 09:05 Dose: 75 mg Docusate Sodium (Colace -) 100 mg PO BID PRN PRN Reason: CONSTIPATION Last Admin: 09/05/19 17:38 Dose: 100 mg Epoetin Paco (Epogen -) 10,000 unit IVPUSH ONCE ONE Stop: 09/06/19 07:01 Ferrous Sulfate (Feosol -) 325 mg PO BIDWM [facility] Last Admin: 09/05/19 17:37 Dose: 325 mg Heparin Sodium (Porcine) (Heparin -) 300 unit IVPUSH Q1H [facility] Stop: 09/06/19 09:01 Daptomycin 300 mg/ Sodium (Chloride) 50 mls @ 50 mls/hr IVPB MOWEFR [facility]; Protocol Last Admin: 09/04/19 13:58 Dose: 50 mls/hr Sodium Chloride (Normal Saline -) 250 mls @ 3,000 mls/hr IV PRN PRN PRN Reason: Hypotension during Dialysis Stop: 09/06/19 13:30 Losartan Potassium (Cozaar -) 50 mg PO DAILY [facility] Last Admin: 09/05/19 09:04 Dose: 50 mg Nifedipine (Procardia Xl -) 60 mg PO DAILY [facility] Last Admin: 09/05/19 09:05 Dose: 60 mg Ondansetron HCl (Zofran Injection) 4 mg IVPUSH Q6H PRN PRN Reason: NAUSEA Ondansetron HCl (Zofran Odt -) 4 mg SL Q12H PRN PRN Reason: NAUSEA AND/OR VOMITING Last Admin: 09/05/19 21:11 Dose: 4 mg Sevelamer Carbonate (Renvela -) 1,600 mg PO TIDCM [facility] Last Admin: 09/05/19 17:37 Dose: 1,600 mg - Objective Vital Signs: Vital Signs Temperature 98.7 F 09/06/19 05:55 Pulse Rate 82 09/06/19 05:55 Respiratory Rate 16 09/06/19 05:55 Blood Pressure 152/74 09/06/19 05:55 O2 Sat by Pulse Oximetry (%) 99 09/05/19 20:37 Constitutional: Yes: No Distress, Calm Eyes: Yes: Conjunctiva Clear HENT: Yes: Atraumatic Neck: Yes: Supple Cardiovascular: Yes: Regular Rate and Rhythm Respiratory: Yes: CTA Bilaterally Gastrointestinal: Yes: Soft. No: Tenderness Genitourinary: No: Hematuria Musculoskeletal: No: Joint Stiffness, Joint Swelling Extremities: No: Cold, Cool, Cyanosis Edema: No Integumentary: No: Rash, Venous Stasis Changes Neurological: Yes: Alert, Oriented ...Motor Strength: WNL Psychiatric: Yes: Alert, Oriented. No: Agitated Labs: CBC, BMP 09/04/19 11:00 09/04/19 11:00 INR, PTT INR 1.12 (0.83-1.09) H 08/24/19 10:30 - ....Imaging Other: Report Reviewed Assessment/Plan 84-year-old female with history of end-stage renal disease on hemodialysis, presents with worsening pain and erythema to the right upper extremity site, catheter related thrombophlebitis, sepsis, positive blood cx ID and surgery f/u; IV ATB per ID dapto - much improved HD per renal prognosis guarded d.w pt and staff; d/w CM DC planning as per above
[2019-09-06] MEDS: ALPRAZolam 0.25 MG TABLET PO PRN (07:38)
[2019-09-06] MEDS ORDERED: EPOETIN ALFA 10,000 UNIT/1 ML VIAL IVPUSH ONE (08:00)
[2019-09-06] MEDS ORDERED: SODIUM CHLORIDE 250 ML IV PRN (08:00)
[2019-09-06] MEDS: HEPARIN NA (PORCINE) 5,000 UNITS/ML 1ML VIAL IVPUSH SCH ×3 (08:56→11:13)
[2019-09-06] MEDS: FERROUS SO4 325 MG TABLET (FP) PO SCH (09:00)
[2019-09-06] MEDS: SEVELAMER CARBONATE 800 MG TAB (FP) PO SCH (09:00)
[2019-09-06] MEDS: CALCIUM ACETATE 667 MG CAPSULE (FP) PO SCH (09:00)
[2019-09-06 09:01] LABS: BLOOD UREA NITROGEN 27.6 mg/dL (7-18); CALCIUM 8.3 mg/dL (8.5-10.1); CREATININE 5.6 mg/dL (0.55-1.3); POTASSIUM 3.9 mmol/L (3.5-5.1)
[2019-09-06] MEDS ORDERED: PT OWN MED DRAWER 7, Y5N ONE (09:46)
[2019-09-06] MEDS: DAPTOMYCIN 300 MG in SODIUM CHLORIDE 50 ML IVPB SCH ×2 (11:12→11:15)
[2019-09-06] MEDS: ASPIRIN 81 MG CHEWABLE TABLETS PO SCH (11:18)
[2019-09-06] MEDS: CLOPIDOGREL BISULFATE 75 MG TABLET (FP) PO SCH (11:19)
[2019-09-06] MEDS: CALCITRIOL 0.25 MCG CAPSULE (FP) PO SCH (11:19)
[2019-09-06] MEDS: NIFEdipine E.R 60 MG TABLET PO SCH (11:19)
[2019-09-06] MEDS: LOSARTAN POTASSIUM 50 MG TABLET (FP) PO SCH (11:19)
[2019-09-06] MEDS: CHOLESTYRAMINE/ASPARTAME 4 GM PACKET PO SCH (11:24)
[2019-09-06] MEDS: BACITRACIN 15 GM TUBE TOPICAL OINTMENT TP SCH (11:24)
[2019-09-06 11:56] VITALS: BP 163/88; PULSE 87; TEMP 97.9
--- NOTE | 2019-09-06 12:47 | PN ---
Progress Note (short form) - Note Progress Note: Renal follow up for ESRD on HD Seen and examined at the bedside s/p dialysis this am with 1kg UF tolerated it well no fevers, chills, cp, sob arm pain now resolved Vital Signs Temperature 97.9 F 09/06/19 11:54 Pulse Rate 87 09/06/19 11:54 Respiratory Rate 18 09/06/19 11:54 Blood Pressure 163/88 09/06/19 11:54 O2 Sat by Pulse Oximetry (%) 99 09/06/19 09:00 Intake & Output 09/03/19 09/04/19 09/05/19 09/06/19 23:59 23:59 23:59 23:59 Intake Total 1445 2780 1865 700 Output Total 2500 1500 Balance 0919 914 1891 -800 Weight 48.988 kg 48.625 kg 46.72 kg 47.718 kg NAD RRR CTA soft NT/ND no LE edema tunneled HD catheter in place, no cyanosis or clubbing erythema and induration over right forearm CBC, BMP 09/04/19 11:00 09/06/19 07:15 Current Medications Acetaminophen (Tylenol -) 650 mg PO Q6H PRN PRN Reason: FEVER Last Admin: 09/04/19 22:42 Dose: 650 mg Alprazolam (Xanax -) 0.25 mg PO Q12H PRN PRN Reason: ANXIETY Last Admin: 09/06/19 07:38 Dose: 0.25 mg Amitriptyline HCl (Elavil -) 50 mg PO HS [facility] Last Admin: 09/05/19 21:11 Dose: 50 mg Aspirin (Asa -) 81 mg PO DAILY [facility] Last Admin: 09/06/19 11:18 Dose: 81 mg Atorvastatin Calcium (Lipitor -) 80 mg PO HS [facility] Last Admin: 09/05/19 21:11 Dose: 80 mg Bacitracin (Bacitracin -) 1 applic TP DAILY [facility] Last Admin: 09/06/19 11:24 Dose: 1 applic Calcitriol (Rocaltrol -) 0.25 mcg PO DAILY [facility] Last Admin: 09/06/19 11:19 Dose: 0.25 mcg Calcium Acetate (Phoslo -) 667 mg PO TIDCM [facility] Last Admin: 09/06/19 09:00 Dose: Not Given Cholestyramine Resin (Questran Light Packet -) 4 gm PO BID [facility] Last Admin: 09/06/19 11:24 Dose: Not Given Clopidogrel Bisulfate (Plavix -) 75 mg PO DAILY [facility] Last Admin: 09/06/19 11:19 Dose: 75 mg Docusate Sodium (Colace -) 100 mg PO BID PRN PRN Reason: CONSTIPATION Last Admin: 09/05/19 17:38 Dose: 100 mg Ferrous Sulfate (Feosol -) 325 mg PO BIDWM [facility] Last Admin: 09/06/19 09:00 Dose: Not Given Daptomycin 300 mg/ Sodium (Chloride) 50 mls @ 50 mls/hr IVPB MOWEFR [facility]; Protocol Last Admin: 09/06/19 11:15 Dose: 50 mls/hr Losartan Potassium (Cozaar -) 50 mg PO DAILY [facility] Last Admin: 09/06/19 11:19 Dose: 50 mg Nifedipine (Procardia Xl -) 60 mg PO DAILY [facility] Last Admin: 09/06/19 11:19 Dose: 60 mg Ondansetron HCl (Zofran Injection) 4 mg IVPUSH Q6H PRN PRN Reason: NAUSEA Ondansetron HCl (Zofran Odt -) 4 mg SL Q12H PRN PRN Reason: NAUSEA AND/OR VOMITING Last Admin: 09/05/19 21:11 Dose: 4 mg Sevelamer Carbonate (Renvela -) 1,600 mg PO TIDCM [facility] Last Admin: 09/06/19 09:00 Dose: Not Given 84 year old woman with history of ESRD no HD (), DM, hypertension, CAD with recent NSTEMI, PVD, current smoker presents from home with boil on her right arm. 1. ESRD on HD 2. Abscess on arm 3. Gram positive bacteremia/MRSA 4. Hypertension 5. CAD 6. Anemia Tolerated dialysis well this am. Next planned dialysis is Monday as an outpatient. To get 2 additional does of Daptomycin with dialysis on Monday and Monday To run on a MWF schedule next week but likely can be transitioned back to Monday and Monday after that Advised to hold off on her Lokelma medication for next week will continue JACOB and iron therapy with HD continue present antihypertensives including Losartan Nifedpine Anticipated discharge today Thank you Quentin Goyal DO
--- NOTE | 2019-09-06 15:49 | PN ---
Progress Note, Physician History of Present Illness: stable - Objective Vital Signs: Vital Signs Temperature 97.9 F 09/06/19 11:54 Pulse Rate 87 09/06/19 11:54 Respiratory Rate 18 09/06/19 11:54 Blood Pressure 163/88 09/06/19 11:54 O2 Sat by Pulse Oximetry (%) 99 09/06/19 09:00 Constitutional: Yes: No Distress, Calm Cardiovascular: Yes: S1, S2 Respiratory: Yes: Regular, CTA Bilaterally Gastrointestinal: Yes: Normal Bowel Sounds, Soft Musculoskeletal: Yes: WNL Extremities: Yes: Other Neurological: Yes: Alert, Oriented Psychiatric: Yes: Alert, Oriented Labs: CBC, BMP 09/04/19 11:00 09/06/19 07:15 INR, PTT INR 1.12 (0.83-1.09) H 08/24/19 10:30 Assessment/Plan Problem List - Problems (1) Cellulitis of right upper extremity Code(s): L03.113 - CELLULITIS OF RIGHT UPPER LIMB (2) Anemia Code(s): D64.9 - ANEMIA, UNSPECIFIED Qualifiers: (3) Anxiety Code(s): F41.9 - ANXIETY DISORDER, UNSPECIFIED (4) CAD (coronary artery disease) Code(s): I25.10 - ATHSCL HEART DISEASE OF [place] CORONARY ARTERY W/O ANG PCTRS Qualifiers: Coronary Disease-Associated Artery/Lesion type: [place] artery [place] vs. transplanted heart: [place] heart Associated angina: without angina Qualified Code(s): I25.10 - Atherosclerotic heart disease of [place] coronary artery without angina pectoris (5) COPD (chronic obstructive pulmonary disease) Code(s): J44.9 - CHRONIC OBSTRUCTIVE PULMONARY DISEASE, UNSPECIFIED Qualifiers: COPD type: unspecified COPD Qualified Code(s): J44.9 - Chronic obstructive pulmonary disease, unspecified (6) Cigarette nicotine dependence Code(s): F17.210 - NICOTINE DEPENDENCE, CIGARETTES, UNCOMPLICATED (7) Diabetes mellitus Code(s): E11.9 - TYPE 2 DIABETES MELLITUS WITHOUT COMPLICATIONS Qualifiers: Diabetes mellitus type: type 2 Diabetes mellitus complication status: with kidney complications Diabetes mellitus complication detail: with chronic kidney disease Chronic kidney disease stage: on chronic dialysis (8) ESRD (end stage renal disease) on dialysis Code(s): N18.6 - END STAGE RENAL DISEASE; Z99.2 - DEPENDENCE ON RENAL DIALYSIS (9) HTN (hypertension) Code(s): I10 - ESSENTIAL (PRIMARY) HYPERTENSION Qualifiers: Hypertension type: unspecified Qualified Code(s): I10 - Essential (primary ) hypertension (10) Hx of antibiotic allergy Code(s): Z88.1 - ALLERGY STATUS TO OTHER ANTIBIOTIC AGENTS STATUS (11) Hyperlipidemia Code(s): E78.5 - HYPERLIPIDEMIA, UNSPECIFIED Qualifiers: Hyperlipidemia type: pure hypercholesterolemia Qualified Code(s): E78.00 - Pure hypercholesterolemia, unspecified; E78.0 - Pure hypercholesterolemia (12) PAD (peripheral artery disease) Code(s): I73.9 - PERIPHERAL VASCULAR DISEASE, UNSPECIFIED (13) S/P femoropopliteal bypass surgery Code(s): Z95.828 - PRESENCE OF OTHER VASCULAR IMPLANTS AND GRAFTS Assessment/Plan 84 y.o. female with PMH of ESRD on HD, CAD, NSTEMI, DM, COPD, active smoker, HTN , PAD s/p Rt fem-pop bypass, Rt toe amp, HTN, HLD presents with complaints of worsening Rt forearm erythema/edema/and tenderness, low grade fever, mild leukocytosis with +blood cultures Gram positive bacteremia Rt forearm cellulitis/abscess s/p drainage ESRD on HD DM CAD COPD Nicotine dependence PAD HTN HLD plan 3 more doses after todays dose during dialysis rest continue current mgmt
== END 2019-09-06 13:09 | disposition home health service (06) | DRG 853 ==
LOC: JER 08:18 → JERBED 12:14 → J7W 18:59 → JICU 08-25 20:26 → J4S 08-28 20:46
PROVIDERS: ADMIT Internal Medicine; ATTEND Internal Medicine
PROC: 0JBG0ZZ Excision of Right Lower Arm Subcutaneous Tissue and Fascia, Open Approach (ICD-10-PCS; principal; 2019-08-25)
PROC: 0H9DXZZ Drainage of Right Lower Arm Skin, External Approach (ICD-10-PCS; 2019-08-25)
PROC: 5A1D70Z Performance of Urinary Filtration, Intermittent, Less than 6 Hours Per Day (ICD-10-PCS; 2019-09-06)
DX: A41.02 Sepsis due to Methicillin resistant Staphylococcus aureus (principal); N18.6 End stage renal disease; L03.113 Cellulitis of right upper limb; I12.0 Hypertensive chronic kidney disease with stage 5 chronic kidney disease or end stage renal disease; D64.9 Anemia, unspecified; F41.9 Anxiety disorder, unspecified; I25.10 Atherosclerotic heart disease of native coronary artery without angina pectoris; J44.9 Chronic obstructive pulmonary disease, unspecified; F17.210 Nicotine dependence, cigarettes, uncomplicated; E78.5 Hyperlipidemia, unspecified; E11.22 Type 2 diabetes mellitus with diabetic chronic kidney disease; Z99.2 Dependence on renal dialysis; I80.8 Phlebitis and thrombophlebitis of other sites; D72.829 Elevated white blood cell count, unspecified; Z91.15 Patient's noncompliance with renal dialysis; I95.9 Hypotension, unspecified
CPT/HCPCS: 36415; 71045-TC-FY; 76882-TC-RT-FY; 80048; 80053; 82550; 82962; 83735; 84100; 85025; 85027; 85610; 86850; 86900; 86901; 87040; 87070; 87186; 87205; 93005; 93010; 93306-TC; 99285-25; J0131; J0878; J0885; J1644; J7030; P9047; Q0162

== ENCOUNTER 2019-09-17 04:33 | Inpatient (IN) | payer OTHER ==
[2019-09-17 04:44] VITALS: BMI 19.8
--- NOTE | 2019-09-17 04:55 | PDOC ---
History of Present Illness - General Chief Complaint: Diarrhea Stated Complaint: NAUSEA Time Seen by Provider: 09/17/19 04:36 History Source: Patient Exam Limitations: No Limitations - History of Present Illness Initial Comments: 09/17/19 05:13 PCP: Dr. Angela Barahona HPI: 84yo F PMH HTN, ESRD on HD Monday (M, F), diabetes, anemia, anxiety, 64 pack-year smoker, who presents to the ER with diarrhea starting 12 hours ago. Patient left hemodialysis session 09/16, went home feeling find, had 2 episodes of diarrhea in the evening before going to bed. Woke up at 1:30 AM and experienced 5 additional episodes of diarrhea. At this point she became nauseous and felt she may be dehydrated and called EMS. She denies any fevers, chills, vomiting, diaphoresis, chest pain, difficulty breathing. Recently admitted 08/24-09/06 for bacteremia with prolonged antibiotic course. Denies sick contacts. 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 Past History - Travel Traveled outside of the country in the last 30 days: No Close contact w/someone who was outside of country & ill: No - Past Medical History Allergies/Adverse Reactions: Allergies Allergy/AdvReac Type Severity Reaction Status Date / Time iodine Allergy Rash Verified 09/17/19 04:42 penicillin V Allergy Verified 09/17/19 04:42 shellfish derived Allergy Rash Verified 09/17/19 04:42 vancomycin Allergy Verified 09/17/19 04:42 azithromycin AdvReac Verified 09/17/19 04:42 Home Medications: Ambulatory Orders Alprazolam [Xanax] 0.25 mg PO BID PRN 02/19/19 Aspirin [ASA -] 81 mg PO DAILY 02/19/19 Calcitriol [Calcitriol -] 0.25 mcg PO DAILY 02/19/19 Calcium Acetate 667 mg PO TID 02/19/19 Carvedilol [Coreg -] 6.25 mg PO BID 02/19/19 Acetaminophen [Tylenol .Regular Strength -] 650 mg PO Q6H PRN tablet 04/19/19 Ferrous Sulfate 325 mg PO BID 05/25/19 Nifedipine ER [Procardia XL -] 120 mg PO DAILY #180 tab.er.24 05/28/19 Amitriptyline HCl [Elavil -] 50 mg PO HS #30 tablet 06/07/19 Sevelamer Carbonate [Renvela -] 1,600 mg PO TIDCM tab 06/07/19 Cholestyramine/Aspartame [Questran Light Packet -] 4 gm PO BID packet 07/05/19 Ondansetron [Zofran -] 4 mg PO BID PRN tablet 07/12/19 Losartan Potassium [Cozaar -] 100 mg PO DAILY 08/09/19 Atorvastatin Ca [Lipitor] 80 mg PO HS #90 tablet 08/21/19 Clopidogrel Bisulfate [Plavix -] 75 mg PO DAILY #90 tablet 08/21/19 Isosorbide Mononitrate [Imdur -] 30 mg PO DAILY #90 tab.sr.24h 08/21/19 Acetaminophen [Tylenol .Regular Strength -] 650 mg PO Q6H PRN tablet 09/04/19 Bacitracin - [Bacitracin Topical Ointment -] 1 applic TP DAILY tube 09/04/19 Sodium Zirconium Cyclosilicate [Lokelma] 10 gm PO DAILY packet 09/18/19 metroNIDAZOLE [Flagyl -] 500 mg PO TID 10 Days #30 tablet MDD 3 09/18/19 Anemia: Yes Asthma: Yes Cancer: No Cardiac Disorders: Yes (PAD,CAD, PVD) CVA: No COPD: Yes CHF: No DVT: No Dementia: No Diabetes: Yes Dialysis: Yes (m,w,f) GI Disorders: Yes (chronic diarrhea) Disorders: No HTN: Yes Hypercholesterolemia: Yes Liver Disease: No Seizures: No Thyroid Disease: No - Surgical History Abdominal Surgery: No Appendectomy: No Cardiac Surgery: Yes (FEMORAL BYPASS) Cholecystectomy: Yes Lung Surgery: No Neurologic Surgery: No Orthopedic Surgery: Yes (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) - Immunization History Td Vaccination: Yes TDAP Vaccination: Yes Immunization Up to Date: Yes - Psycho Social/Smoking Cessation Hx Smoking Status: Yes Smoking History: Current every day smoker Have you smoked in the past 12 months: Yes Number of Cigarettes Smoked Daily: 30 If you are a former smoker, when did you quit?: 08/10/2012 Cigars Per Day: 30 'Breaking Loose' booklet given: 06/28/19 Hx Alcohol Use: No Drug/Substance Use Hx: No Substance Use Type: None Hx Substance Use Treatment: No Review of Systems - Review of Systems Able to Perform ROS?: Yes Is the patient limited [place]anese proficient: Yes Constitutional: No: Chills, Diaphoresis, Fever HEENTM: No: Nose Congestion, Throat Pain Respiratory: No: Cough, Orthopnea, Shortness of Breath Cardiac (ROS): No: Chest Pain, Edema, Irregular Heart Rate, Chest Tightness ABD/GI: Yes: Diarrhea, Nausea. No: Blood Streaked Bowels, Constipated, Poor Appetite, Poor Fluid Intake, Rectal Bleeding, Vomiting : No: Burning, Dysuria, Frequency Musculoskeletal: No: Muscle Pain, Muscle Weakness Integumentary: No: Bruising, Pruritus, Rash Neurological: No: Headache, Numbness, Tingling, Weakness Hematologic/Lymphatic: No: Anemia, Blood Clots, Easy Bleeding All Other Systems: Reviewed and Negative *Physical Exam - Physical Exam 09/17/19 05:24 Vitals reviewed, AFVSS GEN: Well appearing, appears younger than stated age, NAD, comfortable. AAOx3. HEENT: NCAT, EOMI, PERRL. Sclera anicteric, noninjected. No facial asymmetry. Moist mucous membranes. Normal voice. Trachea midline. CV: RRR, S1/S2, no murmurs / rubs / gallops appreciated. +R chest cath dressing , c/d/i LUNG: CTAB, normal work of breathing. No wheezes, rales, rhonchi. No cough. Speaking full sentences. GI: Soft, NTND, +BS, no guarding, no rebound. No masses. Neg CVAT b/l. EXTREMITIES: 2+ distal pulses. No LE edema. No obvious deformities of all extremities. SKIN: Warm, dry, no rashes appreciated, non-jaundiced. PSYCH: Normal mood and affect. Cooperative and appropriate. NEURO: CN grossly intact. Moving all extremities well. Normal strength and sensation grossly. ED Treatment Course - LABORATORY CBC & Chemistry Diagram: 09/18/19 07:05 09/18/19 07:05 Medical Decision Making - Medical Decision Making 09/17/19 05:29 84yo F PMH HTN, ESRD on HD Monday (M, F), diabetes, anemia, anxiety, 64 pack- year smoker, who presents to the ER with diarrhea starting 12 hours ago. History notable for recent hospitalization and ABX course. Vitals stable, afebrile. DDX: Viral syndrome, C Diff colitis, less likely inflammatory colitis or food intolerance. - CBC, CMP, Mg, Phos, Cardiac - EKG - C Dif Antigen 09/17/19 06:00 - EKbpm, NSR, normal axis, QTC prolonged at 487, narrow QRS, no ischemic changes 09/17/19 06:17 - Patient with large volume watery diarrhea here in the department - Several staff members identify the scent as C Diff - Contact precautions - Patient increasingly anxious, given home 0.25 Xanax - Of note, patient reports Vancomycin allergy and is insistent on different antibiotic 09/17/19 07:00 - Patient endorsed to day team Discharge - Discharge Information Problems reviewed: Yes Clinical Impression/Diagnosis: Diarrhea Qualifiers: Diarrhea type: presumed infectious Qualified Code(s): R19.7 - Diarrhea, unspecified Condition: Improved Disposition: HOME - Admission Yes - Follow up/Referral - Patient Discharge Instructions - Post Discharge Activity
--- NOTE | 2019-09-17 05:26 | PDOC ---
Attending Attestation - Resident Resident Name: Jimmie Landers - ED Attending Attestation I have performed the following: I have examined & evaluated the patient, The case was reviewed & discussed with the resident, I agree w/resident's findings & plan - HPI HPI: 09/17/19 05:28 see resident hpi - Physicial Exam PE: 09/17/19 05:28 agree with resident exam - Medical Decision Making 09/17/19 05:28 84-year-old female complaining of profuse diarrhea and weakness Patient is status post recent course of antibiotics Plan for labs, stool cultures if possible and admission due to patient's age and history of hemodialysis Patient has had multiple episodes of watery stool on the department
[2019-09-17] MEDS ORDERED: ALPRAZolam 0.25 MG TABLET ONE (05:55)
[2019-09-17] MEDS: ALPRAZolam 1 MG TABLET PO PRN ×2 (05:56→16:41)
[2019-09-17 06:35] LABS: BASO % 1.3 % (0-2.0); EOS % 6.5 % (0-4.5); HEMATOCRIT 27.4 % (32.4-45.2); LYMPH % 28.1 % (8-40); MCH 32.2 pg (25.7-33.7); MCHC 32.9 g/dl (32.0-36.0); MEAN CELL VOLUME 97.8 fl (80-96); MEAN PLT VOLUME 8.2 fl (7.5-11.1); MONO % 10.5 % (3.8-10.2); NEUT % 53.6 % (42.8-82.8); PLATELET COUNT 282 K/MM3 (134-434); RDW 16.5 % (11.6-15.6); WHITE BLOOD COUNT 5.1 K/mm3 (4.0-10.0)
--- NOTE | 2019-09-17 07:22 | PDOC ---
*Physical Exam - Vital Signs Last Vital Signs Temp Pulse Resp BP Pulse Ox 97.8 F 80 18 192/92 H 98 09/17/19 04:38 09/17/19 04:38 09/17/19 04:38 09/17/19 04:38 09/17/19 04:38 - Physical Exam General Appearance: Yes: Nourished, Appropriately Dressed. No: Apparent Distress HEENT: positive: EOMI, CHRISTINA, Normal Voice, Symmetrical. negative: Scleral Icterus (R), Scleral Icterus (L) Neck: positive: Supple. negative: Decreased range of motion Respiratory/Chest: positive: Lungs Clear, Normal Breath Sounds. negative: Respiratory Distress, Accessory Muscle Use, Crackles, Rales, Rhonchi, Stridor, Wheezing Cardiovascular: positive: Regular Rhythm, Regular Rate. negative: Murmur Gastrointestinal/Abdominal: positive: Normal Bowel Sounds, Flat, Soft. negative : Tender, Pulsatile Mass, Guarding, Rebound Musculoskeletal: positive: Normal Inspection. negative: CVA Tenderness Extremity: positive: Normal Capillary Refill, Normal Inspection. negative: Tender Integumentary: positive: Normal Color, Dry, Warm Neurologic: positive: Fully Oriented, Alert, Normal Mood/Affect, Normal Response ED Treatment Course - LABORATORY CBC & Chemistry Diagram: 09/17/19 06:22 09/17/19 06:22 - ADDITIONAL ORDERS Additional order review: 09/17/19 06:22 RBC 2.80 L MCV 97.8 H MCHC 32.9 RDW 16.5 H MPV 8.2 Neutrophils % 53.6 Lymphocytes % 28.1 D Monocytes % 10.5 H Eosinophils % 6.5 H Basophils % 1.3 Medical Decision Making - Medical Decision Making 09/17/19 07:17 Signed out to me by Dr. Landers. 84F ESRD w/ MWF HD last yesterday, HTN, DM, recent admission 09/03-09/06 for bacteremia here for 5x watery diarrhea with 2x diarrhea in ED concerning for C.diff. VS stable, abdomen non-tender. Labs sent. C. diff antigen sent. Patient has red man allergy to vancomycin IV, refusing to take PO, night team discussed this with patient who still refuses. Plan to wait for C. diff, give PO Flagyl, and admit for further Abx with renal f /u for HD tomorrow. 09/17/19 07:20 Labs notable for : - CBC WNL - Cr 4.4, known ESRD - remaining CMP WNL ECG shows NSR with HR 91, QRS 88, QTc 487 with no TWI or ischemic changes, mild peaking of T waves. 09/17/19 07:34 Patient re-assessed, mentating normally, in NAD, no abdominal pain. 09/17/19 09:21 Dr. Quintanilla discussed case with jemima Suh for admit to Med Surg for C. diff, dialysis tomorrow. Discharge - Discharge Information Problems reviewed: Yes Clinical Impression/Diagnosis: Diarrhea Qualifiers: Diarrhea type: presumed infectious Qualified Code(s): R19.7 - Diarrhea, unspecified Condition: Guarded - Follow up/Referral - Patient Discharge Instructions - Post Discharge Activity
[2019-09-17 07:41] LABS: PHOSPHOROUS 4.9 mg/dL (2.5-4.9)
[2019-09-17 08:03] LABS: ALBUMIN 2.9 g/dl (3.4-5.0); BILIRUBIN,TOTAL 0.2 mg/dL (0.2-1); BLOOD UREA NITROGEN 26.2 mg/dL (7-18); CALCIUM 8.4 mg/dL (8.5-10.1); CREATININE 4.4 mg/dL (0.55-1.3); MAGNESIUM 2.3 mg/dL (1.8-2.4); POTASSIUM 4.9 mmol/L (3.5-5.1); TOT PROT 6.7 g/dl (6.4-8.2)
[2019-09-17] MEDS ORDERED: metroNIDAZOLE 250 MG TABLET ONE ×2 (08:32→14:14)
[2019-09-17] MEDS: metroNIDAZOLE 250 MG TABLET PO SCH ×3 (08:35→22:51)
--- NOTE | 2019-09-17 11:56 | EKG ---
Test Reason : Blood Pressure : / mmHG Vent. Rate : 091 BPM Atrial Rate : 091 BPM P-R Int : 162 ms QRS Dur : 088 ms QT Int : 396 ms P-R-T Axes : 031 051 052 degrees QTc Int : 487 ms POOR DATA QUALITY, INTERPRETATION MAY BE ADVERSELY AFFECTED NORMAL SINUS RHYTHM NONSPECIFIC T WAVE ABNORMALITY PROLONGED QT ABNORMAL ECG Confirmed by MD HARMEET, EVELIO ([id number]) on 09/17/2019 11:56:23 AM Referred By: Confirmed By:EVELIO GA MD
[2019-09-17] MEDS ORDERED: CARVEDILOL 6.25 MG TABLET (FP) PO ONE (15:18)
[2019-09-17] MEDS ORDERED: LOSARTAN POTASSIUM 50 MG TABLET (FP) PO ONE (15:18)
[2019-09-17] MEDS ORDERED: LOSARTAN POTASSIUM 50 MG TABLET (FP) ONE (15:25)
[2019-09-17] MEDS ORDERED: NIFEdipine E.R. 30 MG TABLET ONE (15:25)
[2019-09-17] MEDS ORDERED: CARVEDILOL 3.125 MG TABLET (FP) ONE (15:25)
[2019-09-17] MEDS ORDERED: NIFEdipine E.R 60 MG TABLET PO SCH ×2 (15:30→16:15)
[2019-09-17] MEDS ORDERED: ALPRAZolam 0.25 MG TABLET PO PRN (16:12)
[2019-09-17] MEDS ORDERED: ACETAMINOPHEN 325 MG TABLET (FP) PO PRN (16:12)
[2019-09-17] MEDS ORDERED: ONDANSETRON 4 MG TABLET PO PRN (16:15)
[2019-09-17] MEDS: LOSARTAN POTASSIUM 50 MG TABLET (FP) PO SCH (16:32)
[2019-09-17] MEDS: BACITRACIN 15 GM TUBE TOPICAL OINTMENT TP SCH (16:40)
[2019-09-17] MEDS: CALCITRIOL 0.25 MCG CAPSULE (FP) PO SCH (16:40)
[2019-09-17] MEDS: CLOPIDOGREL BISULFATE 75 MG TABLET (FP) PO SCH (16:40)
--- NOTE | 2019-09-17 19:48 | HP ---
Admitting History and Physical - Primary Care Physician PCP: Jarrett Barahona - Admission Chief Complaint: Diarrhea History of Present Illness: Pt with known ERSD on HD started to develop diarrhea on Monday, not associated with fever/ abd pain/ nausea/ CP/ palpiations ; yesterday pt had episodes of diarrhea; this AM diarrhea continued and pt came to ER were it was noticed to have diarrhea. Pt states that diarrhea stopped around noon today. History Source: Patient - Past Medical History Cardiovascular: Yes: HTN, Hyperlipdemia, Murmur, Other (PAD) Pulmonary: Yes: Asthma, COPD Hepatobiliary: Yes: Cholelithiasis, Choledocholithiasis Renal/: Yes: Renal Inusuff, Hemodialysis Heme/Onc: No: Anemia Infectious Disease: Yes: Other (history of osteomyelitis in the past) Endocrine: Yes: Diabetes Mellitus - Past Surgical History Past Surgical History: Yes: Amputation (1-st R toe amputation), Bypass (Right fem pop bypass) - Smoking History Smoking history: Current every day smoker Have you smoked in the past 12 months: Yes Aproximately how many cigarettes per day: 30 If you are a former smoker, when did you quit?: 08/10/2012 - Alcohol/Substance Use Hx Alcohol Use: No History of Substance Use: reports: None - Social History ADL: Independent 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, 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, 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 Travel: No Home Medications - Allergies Allergies/Adverse Reactions: Allergies Allergy/AdvReac Type Severity Reaction Status Date / Time iodine Allergy Rash Verified 09/17/19 04:42 penicillin V Allergy Verified 09/17/19 04:42 shellfish derived Allergy Rash Verified 09/17/19 04:42 vancomycin Allergy Verified 09/17/19 04:42 azithromycin AdvReac Verified 09/17/19 04:42 - Home Medications Home Medications: Ambulatory Orders Alprazolam [Xanax] 0.25 mg PO BID PRN 02/19/19 Aspirin [ASA -] 81 mg PO DAILY 02/19/19 Calcitriol [Calcitriol -] 0.25 mcg PO DAILY 02/19/19 Calcium Acetate 667 mg PO TID 02/19/19 Carvedilol [Coreg -] 6.25 mg PO BID 02/19/19 Acetaminophen [Tylenol .Regular Strength -] 650 mg PO Q6H PRN tablet 04/19/19 Ferrous Sulfate 325 mg PO BID 05/25/19 Nifedipine ER [Procardia XL -] 120 mg PO DAILY #180 tab.er.24 05/28/19 Amitriptyline HCl [Elavil -] 50 mg PO HS #30 tablet 06/07/19 Sevelamer Carbonate [Renvela -] 1,600 mg PO TIDCM tab 06/07/19 Cholestyramine/Aspartame [Questran Light Packet -] 4 gm PO BID packet 07/05/19 Ondansetron [Zofran -] 4 mg PO BID PRN tablet 07/12/19 Losartan Potassium [Cozaar -] 100 mg PO DAILY 08/09/19 Atorvastatin Ca [Lipitor] 80 mg PO HS #90 tablet 08/21/19 Clopidogrel Bisulfate [Plavix -] 75 mg PO DAILY #90 tablet 08/21/19 Isosorbide Mononitrate [Imdur -] 30 mg PO DAILY #90 tab.sr.24h 08/21/19 Acetaminophen [Tylenol .Regular Strength -] 650 mg PO Q6H PRN tablet 09/04/19 Bacitracin - [Bacitracin Topical Ointment -] 1 applic TP DAILY tube 09/04/19 Review of Systems - Review of Systems Constitutional: denies: Chills, Fever Eyes: reports: Double Vision. denies: Blurred Vision HENT: denies: Ear Discharge, Throat Pain Cardiovascular: denies: Chest Pain, Edema, Palpitations Respiratory: denies: Cough, SOB, Wheezing Gastrointestinal: denies: Abdominal Pain, Nausea, Rectal Bleeding, Vomiting Genitourinary: reports: Burning Musculoskeletal: denies: Back Pain, Joint Pain Integumentary: denies: Bruising, Rash Neurological: denies: Change in LOC, Confusion, Seizure Endocrine: denies: Excessive Sweating, Intolerance to Cold Hematology/Lymphatic: denies: Easily Bruised, Excessive Bleeding Psychiatric: denies: Anxiety, Depression Physical Examination Vital Signs: Vital Signs Temperature 97.7 F 09/17/19 17:34 Pulse Rate 84 09/17/19 17:34 Respiratory Rate 18 09/17/19 17:34 Blood Pressure 180/90 H 09/17/19 17:34 O2 Sat by Pulse Oximetry (%) 99 09/17/19 17:34 Constitutional: Yes: No Distress, Calm Eyes: Yes: EOM Intact, PERRL HENT: No: Epistaxis, Nasal Congestion, Pharyngeal Erythema Neck: Yes: Trachea Midline. No: Lymphadenopathy, Tenderness Cardiovascular: Yes: Regular Rate and Rhythm, S1, S2 Respiratory: Yes: Regular, CTA Bilaterally. No: Rales Gastrointestinal: Yes: Normal Bowel Sounds, Soft, Palpable Mass. No: Tenderness ...Rectal Exam: Yes: Deferred Breast(s): Yes: Other (deferred) Musculoskeletal: No: Back Pain, Joint Swelling Edema: No Integumentary: No: Bruising, Jaundice Neurological: Yes: Alert, Oriented, Other (symmetric UE/ LE examination) Psychiatric: Yes: Alert, Oriented Labs: CBC, BMP 09/17/19 06:22 09/17/19 06:22 Problem List - Problems (1) Diarrhea Code(s): R19.7 - DIARRHEA, UNSPECIFIED Qualifiers: Diarrhea type: presumed infectious Qualified Code(s): R19.7 - Diarrhea, unspecified (2) Anemia Code(s): D64.9 - ANEMIA, UNSPECIFIED Qualifiers: (3) ESRD (end stage renal disease) on dialysis Code(s): N18.6 - END STAGE RENAL DISEASE; Z99.2 - DEPENDENCE ON RENAL DIALYSIS (4) Anxiety Code(s): F41.9 - ANXIETY DISORDER, UNSPECIFIED (5) Diabetes mellitus Code(s): E11.9 - TYPE 2 DIABETES MELLITUS WITHOUT COMPLICATIONS Qualifiers: Diabetes mellitus type: type 2 Diabetes mellitus complication status: with kidney complications Diabetes mellitus complication detail: with chronic kidney disease Chronic kidney disease stage: on chronic dialysis Assessment/Plan To f/u Stool CX, for C Diff. Pt on Metronidazole. Renal cosult. AM labs
[2019-09-17] MEDS ORDERED: hydrALAZINE HCL 10 MG TABLET PO ONE (20:02)
[2019-09-17] MEDS ORDERED: ATORVASTATIN CA 80 MG TABLET (FP) PO SCH (22:00)
[2019-09-17] MEDS ORDERED: AMITRIPTYLINE HCL 25 MG TABLET PO SCH (22:00)
[2019-09-17] MEDS: CARVEDILOL 6.25 MG TABLET (FP) PO SCH (22:51)
[2019-09-17] MEDS: FERROUS SO4 325 MG TABLET (FP) PO SCH (22:51)
[2019-09-17] MEDS: SEVELAMER CARBONATE 800 MG TAB (FP) PO SCH (23:59)
[2019-09-17] MEDS: CHOLESTYRAMINE/ASPARTAME 4 GM PACKET PO SCH (23:59)
[2019-09-18] MEDS: metroNIDAZOLE 250 MG TABLET PO SCH ×2 (06:18→14:31)
[2019-09-18] MEDS: CALCIUM ACETATE 667 MG CAPSULE (FP) PO SCH ×3 (06:18→14:32)
[2019-09-18 08:35] LABS: HEMATOCRIT 29.5 % (32.4-45.2); HEMOGLOBIN 9.6 GM/dL (10.7-15.3); MCH 31.9 pg (25.7-33.7); MCHC 32.7 g/dl (32.0-36.0); MEAN CELL VOLUME 97.6 fl (80-96); MEAN PLT VOLUME 8.2 fl (7.5-11.1); PLATELET COUNT 328 K/MM3 (134-434); RBC 3.02 M/mm3 (3.60-5.2); RDW 16.2 % (11.6-15.6); WHITE BLOOD COUNT 5.1 K/mm3 (4.0-10.0)
[2019-09-18 08:58] LABS: CALCIUM 8.3 mg/dL (8.5-10.1); CREATININE 6.2 mg/dL (0.55-1.3); POTASSIUM 5.3 mmol/L (3.5-5.1)
[2019-09-18] MEDS: CARVEDILOL 6.25 MG TABLET (FP) PO SCH (09:50)
[2019-09-18] MEDS: CALCITRIOL 0.25 MCG CAPSULE (FP) PO SCH (09:50)
[2019-09-18] MEDS: FERROUS SO4 325 MG TABLET (FP) PO SCH (09:50)
[2019-09-18] MEDS: SEVELAMER CARBONATE 800 MG TAB (FP) PO SCH ×3 (09:50→12:55)
[2019-09-18] MEDS: CHOLESTYRAMINE/ASPARTAME 4 GM PACKET PO SCH (09:51)
[2019-09-18] MEDS: LOSARTAN POTASSIUM 50 MG TABLET (FP) PO SCH (09:51)
[2019-09-18] MEDS: CLOPIDOGREL BISULFATE 75 MG TABLET (FP) PO SCH (09:51)
[2019-09-18] MEDS ORDERED: ASPIRIN 81 MG CHEWABLE TABLETS PO SCH (10:00)
[2019-09-18] MEDS ORDERED: NIFEdipine E.R 60 MG TABLET PO SCH ×2 (10:00)
[2019-09-18] MEDS ORDERED: ISOSORBIDE MONONITRATE 30 MG TAB.SR.24H (FP) PO SCH (10:00)
[2019-09-18] MEDS: ALPRAZolam 1 MG TABLET PO PRN (10:16)
[2019-09-18] MEDS ORDERED: SODIUM ZIRCONIUM CYCLOSILICATE (LOKELMA) 5 GM PACKET PO SCH (11:30)
--- NOTE | 2019-09-18 12:06 | CONSULT ---
Consult - text type - Consultation Consultation Note: Renal consult for ESRD on HD This is a 84 year old woman with history of ESRD on HD (Monday and Monday), Current smoker, hypertension, DM who presented from home with several episodes of loose stools. Last dialysis was Monday. Seen and examined at the bedside. No further loose stools today. No Abdominal pain, fever, chills, N/V. Denies any shortness of breath or chest pain. Has no leg swelling. Was on Daptomycin for MRSA bacteremia, completed course of antibiotics last week. PMhx: as above Allergies: NDKA Family Hx: NC Social Hx: + tobacco use ROS: as per HPI, all other pertinent ros negative Home Medications Medication Instructions Recorded Alprazolam [Xanax] 0.25 mg PO BID PRN 02/19/19 Aspirin [ASA -] 81 mg PO DAILY 02/19/19 Calcitriol [Calcitriol -] 0.25 mcg PO DAILY 02/19/19 Calcium Acetate 667 mg PO TID 02/19/19 Carvedilol [Coreg -] 6.25 mg PO BID 02/19/19 Acetaminophen [Tylenol .Regular 650 mg PO Q6H PRN tablet 04/19/19 Strength -] Ferrous Sulfate 325 mg PO BID 05/25/19 Nifedipine ER [Procardia XL -] 120 mg PO DAILY #180 tab.er.24 05/28/19 Amitriptyline HCl [Elavil -] 50 mg PO HS #30 tablet 06/07/19 Sevelamer Carbonate [Renvela -] 1,600 mg PO TIDCM tab 06/07/19 Cholestyramine/Aspartame [Questran 4 gm PO BID packet 07/05/19 Light Packet -] Ondansetron [Zofran -] 4 mg PO BID PRN tablet 07/12/19 Losartan Potassium [Cozaar -] 100 mg PO DAILY 08/09/19 Atorvastatin Ca [Lipitor] 80 mg PO HS #90 tablet 08/21/19 Clopidogrel Bisulfate [Plavix -] 75 mg PO DAILY #90 tablet 08/21/19 Isosorbide Mononitrate [Imdur -] 30 mg PO DAILY #90 tab.sr.24h 08/21/19 Acetaminophen [Tylenol .Regular 650 mg PO Q6H PRN tablet 09/04/19 Strength -] Bacitracin - [Bacitracin Topical 1 applic TP DAILY tube 09/04/19 Ointment -] Vital Signs Temperature 98.0 F 09/18/19 06:00 Pulse Rate 85 09/18/19 09:54 Respiratory Rate 18 09/18/19 09:54 Blood Pressure 156/66 09/18/19 09:54 O2 Sat by Pulse Oximetry (%) 99 09/17/19 23:44 NAD awake and alert neck supple, no JVD RRR, no M/R CTA, no rales or wheeze soft NT/ND no LE edema, clubbing or cyanosis CBC, BMP 09/18/19 07:05 09/18/19 07:05 Current Medications Acetaminophen (Tylenol -) 650 mg PO Q6H PRN PRN Reason: FEVER Alprazolam (Xanax) 0.25 mg PO ONCE PRN PRN Reason: ANXIETY Last Admin: 09/18/19 10:16 Dose: 0.25 mg Alprazolam (Xanax -) 0.25 mg PO BID PRN PRN Reason: ANXIETY Last Admin: 09/17/19 22:51 Dose: 0.25 mg Amitriptyline HCl (Elavil -) 50 mg PO HS [facility] Last Admin: 09/17/19 22:51 Dose: 50 mg Aspirin (Asa -) 81 mg PO DAILY [facility] Last Admin: 09/18/19 09:51 Dose: 81 mg Atorvastatin Calcium (Lipitor -) 80 mg PO HS [facility] Last Admin: 09/17/19 22:51 Dose: 80 mg Bacitracin (Bacitracin -) 1 applic TP DAILY [facility] Last Admin: 09/17/19 16:40 Dose: Not Given Calcitriol (Rocaltrol -) 0.25 mcg PO DAILY [facility] Last Admin: 09/18/19 09:50 Dose: 0.25 mcg Calcium Acetate (Phoslo -) 667 mg PO TID [facility] Last Admin: 09/18/19 06:18 Dose: 667 mg Carvedilol (Coreg -) 6.25 mg PO BID [facility] Last Admin: 09/18/19 09:50 Dose: 6.25 mg Cholestyramine Resin (Questran Light Packet -) 4 gm PO BID [facility] Last Admin: 09/18/19 09:51 Dose: 4 gm Clopidogrel Bisulfate (Plavix -) 75 mg PO DAILY [facility] Last Admin: 09/18/19 09:51 Dose: 75 mg Ferrous Sulfate (Feosol -) 325 mg PO BID [facility] Last Admin: 09/18/19 09:50 Dose: 325 mg Isosorbide Mononitrate (Imdur -) 30 mg PO DAILY [facility] Last Admin: 09/18/19 09:50 Dose: 30 mg Losartan Potassium (Cozaar -) 100 mg PO DAILY [facility] Last Admin: 09/18/19 09:51 Dose: 100 mg Metronidazole (Flagyl -) 500 mg PO TID [facility] Last Admin: 09/18/19 06:18 Dose: 500 mg Nifedipine (Procardia Xl -) 120 mg PO DAILY [facility] Ondansetron HCl (Zofran -) 4 mg PO BID PRN PRN Reason: NAUSEA AND/OR VOMITING Last Admin: 09/18/19 06:55 Dose: 4 mg Sevelamer Carbonate (Renvela -) 1,600 mg PO TIDCM [facility] Last Admin: 09/18/19 10:19 Dose: Not Given Sodium Zirconium Cyclosilicate (Lokelma) 10 gm PO DAILY [facility] 84 year old woman with history of ESRD on HD (Monday and Monday), Current smoker , hypertension, DM who presented from home with several episodes of loose stools. 1. Diarrhea r/o C. diff with recent antibiotic use 2. ESRD on HD (Monday and Monday) 3. Mild hyperkalemia 4. Chronic anemia 5. Hypertension Stool for C.diff antigen remains pending. Currently on Flagyl. No plans for dialysis today. Will treat hyperkalemia with Lokelma. Next planned dialysis is Monday. Continue current antihypertensves Will continue JACOB with HD for anemia Can consider discharge planning if C.diff is negative Thank you Quentin Goyal DO
[2019-09-18] MEDS: BACITRACIN 15 GM TUBE TOPICAL OINTMENT TP SCH (14:30)
--- NOTE | 2019-09-18 14:49 | DS ---
Physical Examination Vital Signs: Vital Signs Temperature 98.0 F 09/18/19 06:00 Pulse Rate 85 09/18/19 09:54 Respiratory Rate 18 09/18/19 09:54 Blood Pressure 156/66 09/18/19 09:54 O2 Sat by Pulse Oximetry (%) 99 09/17/19 23:44 Findings/Remarks: Pt w/o fever, chills, abd pain, diarrhea, nause, vomiting, CP, palpitations, dizziness. Constitutional: Yes: No Distress, Calm Cardiovascular: Yes: Regular Rate and Rhythm, S1, S2 Respiratory: Yes: Regular, CTA Bilaterally. No: Rales Gastrointestinal: Yes: Normal Bowel Sounds, Soft. No: Tenderness Edema: No Neurological: Yes: Alert, Oriented Labs: CBC, BMP 09/18/19 07:05 09/18/19 07:05 Discharge Summary Problems reviewed: Yes Reason For Visit: DIARRHEA Current Active Problems Diarrhea (Acute) Hospital Course: Pt came to ER with watery diarrhea, for few days, started on Flagyl with improvement of symptoms. Pt to be DC'ed home on Flagyl and f/u with HD (d/w Dr Goyal). Condition: Improved - Instructions Referrals: Angela Barahona [Primary Care Provider] - Disposition: HOME - Home Medications Comprehensive Discharge Medication List: Ambulatory Orders Alprazolam [Xanax] 0.25 mg PO BID PRN 02/19/19 Aspirin [ASA -] 81 mg PO DAILY 02/19/19 Calcitriol [Calcitriol -] 0.25 mcg PO DAILY 02/19/19 Calcium Acetate 667 mg PO TID 02/19/19 Carvedilol [Coreg -] 6.25 mg PO BID 02/19/19 Acetaminophen [Tylenol .Regular Strength -] 650 mg PO Q6H PRN tablet 04/19/19 Ferrous Sulfate 325 mg PO BID 05/25/19 Nifedipine ER [Procardia XL -] 120 mg PO DAILY #180 tab.er.24 05/28/19 Amitriptyline HCl [Elavil -] 50 mg PO HS #30 tablet 06/07/19 Sevelamer Carbonate [Renvela -] 1,600 mg PO TIDCM tab 06/07/19 Cholestyramine/Aspartame [Questran Light Packet -] 4 gm PO BID packet 07/05/19 Ondansetron [Zofran -] 4 mg PO BID PRN tablet 07/12/19 Losartan Potassium [Cozaar -] 100 mg PO DAILY 08/09/19 Atorvastatin Ca [Lipitor] 80 mg PO HS #90 tablet 08/21/19 Clopidogrel Bisulfate [Plavix -] 75 mg PO DAILY #90 tablet 08/21/19 Isosorbide Mononitrate [Imdur -] 30 mg PO DAILY #90 tab.sr.24h 08/21/19 Acetaminophen [Tylenol .Regular Strength -] 650 mg PO Q6H PRN tablet 09/04/19 Bacitracin - [Bacitracin Topical Ointment -] 1 applic TP DAILY tube 09/04/19
[2019-09-18 15:12] VITALS: BP 158/69; PULSE 81; TEMP 98.1
== END 2019-09-18 16:25 | disposition home or self-care (01) | DRG 371 ==
LOC: JER 04:33 → JERBED 06:23 → J8W 22:31
PROVIDERS: ADMIT Specialist; ATTEND Specialist
DX: A04.72 Enterocolitis due to Clostridium difficile, not specified as recurrent (principal); N18.6 End stage renal disease; K52.1 Toxic gastroenteritis and colitis; I12.0 Hypertensive chronic kidney disease with stage 5 chronic kidney disease or end stage renal disease; T36.8X5A Adverse effect of other systemic antibiotics, initial encounter; D64.9 Anemia, unspecified; F41.9 Anxiety disorder, unspecified; E11.22 Type 2 diabetes mellitus with diabetic chronic kidney disease; Z99.2 Dependence on renal dialysis; F17.210 Nicotine dependence, cigarettes, uncomplicated; Z89.421 Acquired absence of other right toe(s); E87.5 Hyperkalemia
CPT/HCPCS: 36415; 80048; 80053; 82550; 82962; 83690; 83735; 84100; 84484; 85025; 85027; 87324; 87449; 93005; 93010; 99284-25

== ENCOUNTER 2019-09-27 09:53 | Emergency (ER) | payer OTHER ==
[2019-09-27 10:18] VITALS: BP 176/79; PULSE 93; TEMP 97.9; BMI 19.8
[2019-09-27 11:05] LABS: EOS % 8.1 % (0-4.5); HEMATOCRIT 32.9 % (32.4-45.2); HEMOGLOBIN 10.8 GM/dL (10.7-15.3); LYMPH % 14.2 % (8-40); MCH 32.6 pg (25.7-33.7); MCHC 32.8 g/dl (32.0-36.0); MEAN CELL VOLUME 99.4 fl (80-96); MONO % 6.8 % (3.8-10.2); NEUT % 69.9 % (42.8-82.8); PLATELET COUNT 262 K/MM3 (134-434); RBC 3.31 M/mm3 (3.60-5.2); RDW 17.9 % (11.6-15.6); WHITE BLOOD COUNT 7.4 K/mm3 (4.0-10.0)
--- NOTE | 2019-09-27 11:27 | PDOC ---
Documentation entered by Janelle Lindquist SCRIBE, acting as scribe for Austin Garza MD. Austin Garza MD: This documentation has been prepared by the Ameena box Nirvannie, SCRIBE, under my direction and personally reviewed by me in its entirety. I confirm that the documentation accurately reflects all work, treatment, procedures, and medical decision making performed by me. History of Present Illness - General Chief Complaint: Weakness Stated Complaint: WEAKNESS Time Seen by Provider: 09/27/19 10:31 History Source: Patient Exam Limitations: No Limitations - History of Present Illness Initial Comments: 09/27/19 11:08 The patient is a 84 year old female, with a significant past medical history of htn, esrd (on hd m,w last session 09/23 for approx. 1.5 months), diabetes, anemia, anxiety, pvd, oa, 64 pack-year smoker, who presents to the emergency department secondary to missing dialysis. As per patient, she missed her dialysis session. As per patient, she missed her dialysis session 2 days ago on Monday (09/25) secondary to panic attacks (patient ran out of her anxiety medications). While in the ED, the patient notes mild generalized weakness but, otherwise feels at her baseline. She denies recent fevers, chills, headache or dizziness. She denies recent nausea, vomit, diarrhea or constipation. She denies recent chest pain or shortness of breath. Allergies: Iodine, penicillin, vancomycin, azithromycin Primary Care Physician: Dr. Angela Barahona Past History - Past Medical History Allergies/Adverse Reactions: Allergies Allergy/AdvReac Type Severity Reaction Status Date / Time iodine Allergy Rash Verified 09/27/19 10:14 penicillin V Allergy Verified 09/27/19 10:14 shellfish derived Allergy Rash Verified 09/27/19 10:14 vancomycin Allergy Verified 09/27/19 10:14 azithromycin AdvReac Verified 09/27/19 10:14 Home Medications: Ambulatory Orders Alprazolam [Xanax] 0.25 mg PO BID PRN 02/19/19 Aspirin [ASA -] 81 mg PO DAILY 02/19/19 Calcitriol [Calcitriol -] 0.25 mcg PO DAILY 02/19/19 Calcium Acetate 667 mg PO TID 02/19/19 Carvedilol [Coreg -] 6.25 mg PO BID 02/19/19 Acetaminophen [Tylenol .Regular Strength -] 650 mg PO Q6H PRN tablet 04/19/19 Ferrous Sulfate 325 mg PO BID 05/25/19 Nifedipine ER [Procardia XL -] 120 mg PO DAILY #180 tab.er.24 05/28/19 Amitriptyline HCl [Elavil -] 50 mg PO HS #30 tablet 06/07/19 Sevelamer Carbonate [Renvela -] 1,600 mg PO TIDCM tab 06/07/19 Cholestyramine/Aspartame [Questran Light Packet -] 4 gm PO BID packet 07/05/19 Ondansetron [Zofran -] 4 mg PO BID PRN tablet 07/12/19 Losartan Potassium [Cozaar -] 100 mg PO DAILY 08/09/19 Atorvastatin Ca [Lipitor] 80 mg PO HS #90 tablet 08/21/19 Clopidogrel Bisulfate [Plavix -] 75 mg PO DAILY #90 tablet 08/21/19 Isosorbide Mononitrate [Imdur -] 30 mg PO DAILY #90 tab.sr.24h 08/21/19 Acetaminophen [Tylenol .Regular Strength -] 650 mg PO Q6H PRN tablet 09/04/19 Bacitracin - [Bacitracin Topical Ointment -] 1 applic TP DAILY tube 09/04/19 Sodium Zirconium Cyclosilicate [Lokelma] 10 gm PO DAILY packet 09/18/19 metroNIDAZOLE [Flagyl -] 500 mg PO TID 10 Days #30 tablet MDD 3 09/18/19 Alprazolam [Xanax] 0.25 mg PO BID #10 tablet MDD 2 09/27/19 Anemia: Yes Asthma: Yes Cancer: No Cardiac Disorders: Yes (PAD,CAD, PVD) CVA: No COPD: Yes CHF: No DVT: No Dementia: No Diabetes: Yes Dialysis: Yes (m,w,f) GI Disorders: Yes (chronic diarrhea) Disorders: No HTN: Yes Hypercholesterolemia: Yes Liver Disease: No Seizures: No Thyroid Disease: No - Surgical History Abdominal Surgery: No Appendectomy: No Cardiac Surgery: Yes (FEMORAL BYPASS) Cholecystectomy: Yes Lung Surgery: No Neurologic Surgery: No Orthopedic Surgery: Yes (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) - Immunization History Td Vaccination: Yes TDAP Vaccination: Yes Immunization Up to Date: Yes - Psycho Social/Smoking Cessation Hx Smoking Status: Yes Smoking History: Current every day smoker Have you smoked in the past 12 months: Yes Number of Cigarettes Smoked Daily: 20 If you are a former smoker, when did you quit?: 08/10/2012 Cigars Per Day: 30 Information on smoking cessation initiated: No 'Breaking Loose' booklet given: 06/28/19 Hx Alcohol Use: No Drug/Substance Use Hx: No Substance Use Type: None Hx Substance Use Treatment: No Review of Systems - Review of Systems Able to Perform ROS?: Yes Comments:: 09/27/19 11:08 CONSTITUTIONAL: Present: Mild generalized weakness. No reported: Fever, Chills, Diaphoresis, Malaise, Loss of Appetite HEENT: No reported: Rhinorrhea, Nasal Congestion, Throat Pain, Throat Swelling, Difficulty Swallowing, Mouth Swelling, Ear Pain, Eye Pain, Visual Changes CARDIOVASCULAR: No reported: Chest Pain, Syncope, Palpitations, Irregular Heart Rate, Lightheadedness, Peripheral Edema RESPIRATORY: No reported: Cough, Shortness of Breath, SOB with Exertion, Orthopnea, Wheezing , Stridor, Hemoptysis GASTROINTESTINAL: No reported: Abdominal pain, Abdominal Distension, Nausea, Vomiting, Diarrhea, Constipation, Melena, Hematochezia GENITOURINARY: No reported: Flank Pain, Genital Pain MUSCULOSKELETAL: No reported: Myalgia, Arthralgia, Joint Swelling, Back pain, Neck Pain SKIN: No reported: Rash, Itching, Pallor HEMEATOLOGIC/IMMUNOLOGIC: No reported: Easy Bleeding, Easy Bruising, Lymphadenopathy, Frequent infections ENDOCRINE: No reported: Unexplained Weight Gain, Unexplained Weight Loss, Heat Intolerance , Cold Intolerance NEUROLOGIC: No reported: Headache, Focal Weakness, Paresthesias, Vertigo, Lightheadedness, Unsteady Gait, Seizure, Mental Status Changes, Incontinence PSYCHIATRIC: Present: Increased anxiety. No reported: Depression. All Other Systems: Reviewed and Negative *Physical Exam - Vital Signs Last Vital Signs Temp Pulse Resp BP Pulse Ox 97.9 F 93 H 20 176/79 H 99 09/27/19 10:14 09/27/19 10:14 09/27/19 10:14 09/27/19 10:14 09/27/19 10:14 - Physical Exam 09/27/19 11:08 GENERAL: The patient is awake, alert, and fully oriented, Nontoxic - in no acute distress. HEAD: Normocephalic, atraumatic. EYES: extraocular movements intact, sclera anicteric, conjunctiva clear. ENT: Normal voice, Moist mucous membranes. NECK: Normal range of motion, supple LUNGS: Breath sounds equal, clear to auscultation bilaterally. No wheezes, no rhonchi, no rales. CHEST: +Right permacath in place, clean and dry. HEART: Regular rate and rhythm, without murmur, rub or gallop. ABDOMEN: Soft, nontender, No guarding, no rebound.No CVA tenderness EXTREMITIES: Normal range of motion, no edema. No cyanosis. No erythema, or tenderness. NEUROLOGICAL: No facial asymmetry, Normal speech, PSYCH: Normal mood, normal affect. SKIN: Warm, Dry, normal turgor, +wrinkled Heart Score/ECG Review - ECG Impressions Comment:: 09/27/19 14:37 Twelve-lead EKG was performed and reviewed by me. There is normal sinus rhythm with a normal rate. Rate of 84 T wave inversion in V3 3 V6 Normal axis ED Treatment Course - LABORATORY CBC & Chemistry Diagram: 09/27/19 10:39 09/27/19 10:39 - RADIOLOGY Radiology Studies Ordered: Category Date Time Status CHEST X-RAY PORTABLE* [RAD] Stat Radiology 09/27/19 10:27 Ordered Medical Decision Making - Medical Decision Making 09/27/19 10:58 84y F hx of htn, ESRD (M & W), DM, anemia, anxiety Presents with a complaint of generalized weakness after missing Her dialysis on Monday. The patient denies any other kar symptoms including any fever, chills, dyspnea exertion, shortness of breath, chest pain, nausea, vomiting, back pain. Patient has no other complaints. On clinical exam the patient is well-appearing in no distress she has no clinical signs suggestive of acute overload Will obtain blood work and ekg to screen For hyperkalemia, And metabolic derangements Will discuss with her medical underwriter A portion of this note was documented by scribe services under my direction. I have reviewed the details of the note, within reason, and agree with the documentation with the following case summary and management plan written by me 09/27/19 11:58 The patient's blood work was reviewed creatinine is noted to be elevated at 7 with a BUN of 45. The patient's potassium is normal. Will discuss with renal regarding further plan Call made to Dr. Goyal 09/27/19 12:41 case was discussed with dr. Saldaña - recommends admission and dialysis due to reliability will dw dr. barahona 09/27/19 15:03 Plan is to dialyze the patient and discharge her upon completion. The patient is comfortable with this plan. She will not be admitted 09/27/19 18:54 Patient status post dialysis, vital signs normal, will discharge patient with PMD follow-up. Return precautions were discussed I discussed the physical exam findings, ancillary test results and final diagnoses with the patient. I answered all of the patient's questions. The patient was satisfied with the care received and felt comfortable with the discharge plan and treatment plan. The patient will call their primary care physician within 24 hours to arrange follow-up and will return to the Emergency Department with any new, persistent or worsening symptoms. Discharge - Discharge Information Problems reviewed: Yes Clinical Impression/Diagnosis: Anxiety, ESRD (end stage renal disease) on dialysis Condition: Improved Disposition: HOME - Admission No - Additional Discharge Information Prescriptions: Alprazolam [Xanax] 0.25 mg PO BID #10 tablet MDD 2 - Follow up/Referral Referrals: Angela Barahona [Primary Care Provider] - - Patient Discharge Instructions Patient Printed Discharge Instructions: DI for Kidney Failure, DI for Anxiety - - Adult Additional Instructions: Return to the emergency department immediately with ANY new, persistent or worsening symptoms. You MUST call and follow up with your doctor tomorrow for further evaluation of your symptoms. Results were discussed with you. Please make sure your doctor reviews the results of your emergency evaluation. Your Emergency Department visit is not complete without a follow up with your doctor. If you had any xrays during your visit, it was read preliminarily by myself, a Radiologist will review it and if there are any additional findings we will call you. Print Language: DUTCH - Post Discharge Activity
[2019-09-27 11:32] LABS: ALBUMIN 3.3 g/dl (3.4-5.0); BILIRUBIN,TOTAL 0.3 mg/dL (0.2-1); BLOOD UREA NITROGEN 45.1 mg/dL (7-18); CALCIUM 7.7 mg/dL (8.5-10.1); MAGNESIUM 2.1 mg/dL (1.8-2.4); TOT PROT 7.3 g/dl (6.4-8.2)
[2019-09-27 11:34] LABS: CREATININE 7.9 mg/dL (0.55-1.3)
[2019-09-27] MEDS ORDERED: ALPRAZolam 0.25 MG TABLET PO ONE (13:07)
[2019-09-27] MEDS ORDERED: ALPRAZolam 0.25 MG TABLET ONE (13:18)
--- NOTE | 2019-09-27 18:19 | CONSULT ---
Consult Consult Specialty:: Nephrology Reason for Consultation:: ESRD - History of Present Illness Chief Complaint: generalized malaise History of Present Illness: Pt is an 84 year old female with pmhx of esrd, htn, anemia, dm, anxiety and non compliance who presents to the ER after missing HD. She complains of generalized malaise. She does get shortness of breath with exertion. She denies fevers or chills. SHe last dialyzed on Monday. - History Source History Provided By: Patient, Medical Record - Past Medical History Cardio/Vascular: Yes: HTN, Hyperlipdemia, Murmur, Other (PAD) Pulmonary: Yes: Asthma, COPD Hepatobiliary: Yes: Cholelithiasis, Choledocholithiasis Renal/: Yes: Renal Inusuff, Hemodialysis Infectious Disease: Yes: Other (history of osteomyelitis in the past) Endocrine: Yes: Diabetes Mellitus - Past Surgical History Past Surgical History: Yes: Amputation (1-st R toe amputation), Bypass (Right fem pop bypass) - Alcohol/Substance Use Hx Alcohol Use: No History of Substance Use: reports: None - Smoking History Smoking history: Current every day smoker Have you smoked in the past 12 months: Yes Aproximately how many cigarettes per day: 20 If you are a former smoker, when did you quit?: 08/10/2012 - Social History Usual Living Arrangement: Alone ADL: Independent 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, 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, 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 Travel: No Home Medications - Allergies Allergies/Adverse Reactions: Allergies Allergy/AdvReac Type Severity Reaction Status Date / Time iodine Allergy Rash Verified 09/27/19 10:14 penicillin V Allergy Verified 09/27/19 10:14 shellfish derived Allergy Rash Verified 09/27/19 10:14 vancomycin Allergy Verified 09/27/19 10:14 azithromycin AdvReac Verified 09/27/19 10:14 - Home Medications Home Medications: Ambulatory Orders Alprazolam [Xanax] 0.25 mg PO BID PRN 02/19/19 Aspirin [ASA -] 81 mg PO DAILY 02/19/19 Calcitriol [Calcitriol -] 0.25 mcg PO DAILY 02/19/19 Calcium Acetate 667 mg PO TID 02/19/19 Carvedilol [Coreg -] 6.25 mg PO BID 02/19/19 Acetaminophen [Tylenol .Regular Strength -] 650 mg PO Q6H PRN tablet 04/19/19 Ferrous Sulfate 325 mg PO BID 05/25/19 Nifedipine ER [Procardia XL -] 120 mg PO DAILY #180 tab.er.24 05/28/19 Amitriptyline HCl [Elavil -] 50 mg PO HS #30 tablet 06/07/19 Sevelamer Carbonate [Renvela -] 1,600 mg PO TIDCM tab 06/07/19 Cholestyramine/Aspartame [Questran Light Packet -] 4 gm PO BID packet 07/05/19 Ondansetron [Zofran -] 4 mg PO BID PRN tablet 07/12/19 Losartan Potassium [Cozaar -] 100 mg PO DAILY 08/09/19 Atorvastatin Ca [Lipitor] 80 mg PO HS #90 tablet 08/21/19 Clopidogrel Bisulfate [Plavix -] 75 mg PO DAILY #90 tablet 08/21/19 Isosorbide Mononitrate [Imdur -] 30 mg PO DAILY #90 tab.sr.24h 08/21/19 Acetaminophen [Tylenol .Regular Strength -] 650 mg PO Q6H PRN tablet 09/04/19 Bacitracin - [Bacitracin Topical Ointment -] 1 applic TP DAILY tube 09/04/19 Sodium Zirconium Cyclosilicate [Lokelma] 10 gm PO DAILY packet 09/18/19 metroNIDAZOLE [Flagyl -] 500 mg PO TID 10 Days #30 tablet MDD 3 09/18/19 Family Medical History Family History: Denies Review of Systems - Review of Systems Constitutional: reports: Malaise Eyes: reports: No Symptoms HENT: reports: No Symptoms Neck: reports: No Symptoms Cardiovascular: reports: No Symptoms Respiratory: reports: No Symptoms Gastrointestinal: reports: No Symptoms Genitourinary: reports: No Symptoms Musculoskeletal: reports: No Symptoms Integumentary: reports: No Symptoms Neurological: reports: No Symptoms Endocrine: reports: No Symptoms Hematology/Lymphatic: reports: No Symptoms Physical Exam Vital Signs: Vital Signs Temperature 97.9 F 09/27/19 10:14 Pulse Rate 93 H 09/27/19 10:14 Respiratory Rate 09/27/19 10:14 Blood Pressure 176/79 H 09/27/19 10:14 O2 Sat by Pulse Oximetry (%) 99 09/27/19 10:14 Constitutional: Yes: Calm Eyes: Yes: Conjunctiva Clear HENT: Yes: Atraumatic Neck: Yes: Supple Cardiovascular: Yes: S1, S2 Respiratory: Yes: CTA Bilaterally Gastrointestinal: Yes: Normal Bowel Sounds, Soft Renal/: Yes: WNL Musculoskeletal: Yes: WNL Edema: No Neurological: Yes: Oriented Psychiatric: Yes: Oriented Labs: CBC, BMP 09/27/19 10:39 09/27/19 10:39 Imaging - Results Chest X-ray: Report Reviewed Problem List - Problems (1) ESRD (end stage renal disease) Code(s): N18.6 - END STAGE RENAL DISEASE Assessment/Plan 1. ESRD on HD 2. non compliance 3. anxiety 4. Hypertension 5. CAD 6. Anemia 7. uremia Plan - will arrange for HD today - will dialyze in the hospital - discussed compliance - pt already missed her HD slot for today as outpt - renal diet
--- NOTE | 2019-09-28 14:34 | EKG ---
Test Reason : Blood Pressure : / mmHG Vent. Rate : 084 BPM Atrial Rate : 084 BPM P-R Int : 162 ms QRS Dur : 090 ms QT Int : 376 ms P-R-T Axes : 039 047 012 degrees QTc Int : 444 ms NORMAL SINUS RHYTHM T WAVE ABNORMALITY, CONSIDER ANTEROLATERAL ISCHEMIA ABNORMAL ECG Confirmed by MD HARMEET, EVELIO ([id number]) on 09/28/2019 2:34:07 PM Referred By: Confirmed By:EVELIO GA MD
== END 2019-09-27 19:18 | disposition home or self-care (01) ==
LOC: JER 09:53
DX: F41.9 Anxiety disorder, unspecified (principal); E11.22 Type 2 diabetes mellitus with diabetic chronic kidney disease; I12.0 Hypertensive chronic kidney disease with stage 5 chronic kidney disease or end stage renal disease; N18.6 End stage renal disease; Z99.2 Dependence on renal dialysis; Z88.8 Allergy status to other drugs, medicaments and biological substances; Z88.0 Allergy status to penicillin; Z91.013 Allergy to seafood
CPT/HCPCS: 36415; 71045-TC-FY; 80053; 83735; 85025; 93005; 93010; 99282-25

== ENCOUNTER 2019-09-29 12:50 | Emergency (ER) | payer OTHER ==
[2019-09-29 13:11] VITALS: BP 171/84; PULSE 88; BMI 19.8
[2019-09-29] MEDS ORDERED: ALPRAZolam 1 MG TABLET PO ONE (13:56)
[2019-09-29] MEDS ORDERED: ALPRAZolam 0.25 MG TABLET ONE (13:58)
[2019-09-29 14:04] VITALS: TEMP 97.9
--- NOTE | 2019-09-29 14:11 | PDOC ---
History of Present Illness - General Chief Complaint: Psychiatric Stated Complaint: WEAKNESS Time Seen by Provider: 09/29/19 13:19 History Source: Patient Exam Limitations: No Limitations - History of Present Illness Initial Comments: 84yo F PMH HTN, ESRD on HD Monday (M, F), diabetes, anemia, anxiety, 64 pack- year smoker, who presents to the ER with anxiety and leg weakness. Per the patient, she states she has been having more anxiety because her last dose of xanax was night. She presented to our emergency department Monday and was given a prescription to her pharmacy. However, her pharmacy was closed after she left and is closed on Sundays. Per the patient, she is unsure if she feels weak because of the lack of xanax or other causes. She said she was having difficulty walking because of weakness. Denies the following: fevers, chills, SOB, chest pain, nausea, vomiting, abdominal pain, dysuria, hematuria, diarrhea, and leg pain. Past History - Past Medical History Allergies/Adverse Reactions: Allergies Allergy/AdvReac Type Severity Reaction Status Date / Time iodine Allergy Rash Verified 10/11/19 19:29 penicillin V Allergy Verified 10/11/19 19:29 shellfish derived Allergy Rash Verified 10/11/19 19:29 vancomycin Allergy Verified 10/11/19 19:29 azithromycin AdvReac Verified 10/11/19 19:29 Home Medications: Ambulatory Orders Aspirin [ASA -] 81 mg PO DAILY 02/19/19 Calcitriol [Calcitriol -] 0.25 mcg PO DAILY 02/19/19 Calcium Acetate 667 mg PO TID 02/19/19 Ferrous Sulfate 325 mg PO BID 05/25/19 Nifedipine ER [Procardia XL -] 120 mg PO DAILY #180 tab.er.24 05/28/19 Amitriptyline HCl [Elavil -] 50 mg PO HS #30 tablet 06/07/19 Cholestyramine/Aspartame [Questran Light Packet -] 4 gm PO BID packet 07/05/19 Ondansetron [Zofran -] 4 mg PO BID PRN tablet 07/12/19 Losartan Potassium [Cozaar -] 100 mg PO DAILY 08/09/19 Atorvastatin Ca [Lipitor] 80 mg PO HS #90 tablet 08/21/19 Clopidogrel Bisulfate [Plavix -] 75 mg PO DAILY #90 tablet 08/21/19 Isosorbide Mononitrate [Imdur -] 30 mg PO DAILY #90 tab.sr.24h 08/21/19 Acetaminophen [Tylenol .Regular Strength -] 650 mg PO Q6H PRN tablet 09/04/19 Bacitracin - [Bacitracin Topical Ointment -] 1 applic TP DAILY tube 09/04/19 Sodium Zirconium Cyclosilicate [Lokelma] 10 gm PO DAILY packet 09/18/19 Cyclobenzaprine HCl 5 mg PO BID PRN #30 tablet 10/06/19 Labetalol HCl [Normodyne -] 200 mg PO BID #60 tablet 10/06/19 hydrALAZINE HCL [Apresoline -] 25 mg PO BID #60 tablet 10/06/19 Alprazolam [Xanax] 0.25 mg PO Q8H PRN #90 tablet MDD 3 10/07/19 Anemia: Yes Asthma: Yes Cancer: No Cardiac Disorders: Yes (PAD,CAD, PVD) CVA: No COPD: Yes CHF: No DVT: No Dementia: No Diabetes: Yes Dialysis: Yes (m,w,f) GI Disorders: Yes (chronic diarrhea) Disorders: No HTN: Yes Hypercholesterolemia: Yes Liver Disease: No Seizures: No Thyroid Disease: No - Surgical History Abdominal Surgery: No Appendectomy: No Cardiac Surgery: Yes (FEMORAL BYPASS) Cholecystectomy: Yes Lung Surgery: No Neurologic Surgery: No Orthopedic Surgery: Yes (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) - Immunization History Td Vaccination: Yes TDAP Vaccination: Yes Immunization Up to Date: Yes - Psycho Social/Smoking Cessation Hx Smoking Status: Yes Smoking History: Current every day smoker Have you smoked in the past 12 months: Yes Number of Cigarettes Smoked Daily: 20 If you are a former smoker, when did you quit?: 08/10/2012 Cigars Per Day: 30 Information on smoking cessation initiated: Yes 'Breaking Loose' booklet given: 06/28/19 Hx Alcohol Use: No Drug/Substance Use Hx: No Substance Use Type: None Hx Substance Use Treatment: No Review of Systems - Review of Systems Able to Perform ROS?: Yes Is the patient limited Omani proficient: No Constitutional: No: Chills, Diaphoresis, Fever, Weakness HEENTM: No: Eye Pain, Ear Pain, Nose Pain, Throat Pain, Mouth Pain Respiratory: No: Cough, Shortness of Breath, SOB with Exertion Cardiac (ROS): No: Chest Pain, Lightheadedness, Palpitations, Chest Tightness ABD/GI: No: Constipated, Diarrhea, Nausea, Rectal Bleeding, Vomiting, Tarry Stools : No: Burning, Dysuria, Hematuria Musculoskeletal: Yes: Muscle Weakness (b/l leg). No: Back Pain, Joint Pain, Neck Pain Integumentary: No: Bruising, Erythema, Rash Neurological: No: Headache, Numbness, Tingling, Tremors Psychiatric: Yes: Anxiety. No: Stressors, Change in Appetite Endocrine: No: Unexplained Weight Loss Hematologic/Lymphatic: No: Anemia *Physical Exam - Vital Signs Last Vital Signs Temp Pulse Resp BP Pulse Ox 97.9 F 88 20 171/84 H 100 09/29/19 13:15 09/29/19 13:08 09/29/19 13:08 09/29/19 13:08 09/29/19 13:08 - Physical Exam General Appearance: Yes: Nourished, Appropriately Dressed, Thin. No: Apparent Distress, Intoxicated HEENT: positive: EOMI, CHRISTINA, Normal Voice, Symmetrical, Pharynx Normal, Hearing Grossly Normal. negative: Pale Conjunctivae, Scleral Icterus (R), Scleral Icterus (L), Muffled/Hoarse voice, Pharyngeal Erythema, Tonsillar Exudate, Tonsillar Erythema, Nasal Congestion, Rhinorrhea, Sinus Tenderness, Excessive drooling Neck: positive: Trachea midline, Supple. negative: Tender, Lymphadenopathy (R) , Lymphadenopathy (L), Tender lateral, Tender midline Respiratory/Chest: positive: Lungs Clear, Normal Breath Sounds. negative: Chest Tender, Respiratory Distress, Accessory Muscle Use Cardiovascular: positive: Regular Rhythm, Regular Rate, S1, S2. negative: Systolic Murmur Gastrointestinal/Abdominal: positive: Normal Bowel Sounds, Flat, Soft. negative : Tender, Distended, Guarding, Rebound Lymphatic: negative: Adenopathy Musculoskeletal: positive: Normal Inspection. negative: CVA Tenderness, Vertebral Tenderness Extremity: positive: Normal Capillary Refill, Normal Inspection, Normal Range of Motion. negative: Tender, Swelling, Calf Tenderness Integumentary: positive: Normal Color, Dry, Warm Neurologic: positive: director retail brand development II-XII NML intact, Fully Oriented, Alert, Normal Mood/ Affect, Normal Response, Motor Strength 5/5. negative: Abnormal Cranial NS, EOM Palsy, Facial Droop, Numbness, Sensory Deficit ED Treatment Course - Medications Given in the ED: ED Medications Discontinued Medications Generic Name Dose Route Start Last Admin Trade Name Nafisa PRN Reason Stop Dose Admin Alprazolam 0.25 mg 09/29/19 13:56 09/29/19 14:00 Xanax PO 09/29/19 13:57 0.25 mg ONCE ONE Administration Medical Decision Making - Medical Decision Making 84yo F PMH HTN, ESRD on HD Monday (M, F), diabetes, anemia, anxiety, 64 pack- year smoker, who presents to the ER with anxiety and leg weakness. Initial vitals: Initial Vital Signs Temp Pulse Resp BP Pulse Ox 97.8 F 88 20 171/84 H 100 09/29/19 13:08 09/29/19 13:08 09/29/19 13:08 09/29/19 13:08 09/29/19 13:08 Work up: patient presents with leg weakness that is at her baseline requesting xanax given that she ran out over the past 2 days and feels debilitated without having them due to anxiety. The patient was given 0.5 mg in the emergency department (0.25mg x2) and has an active prescription that was prescribed from her previous recent ED visit. The patient has no nausea, no vomiting, no lethargy, no tachycardia, and no tremors suggestive of benzo withdrawal. tolerating pO well with black coffee, turkey sandwich. The patient was able to ambulate in the ED. her acute on chronic leg pain resolved. The patient was DC home via medicaid taxi. Discharge - Discharge Information Problems reviewed: Yes Clinical Impression/Diagnosis: Anxiety, Medication administered, ESRD (end stage renal disease) Condition: Good Disposition: HOME - Admission No - Follow up/Referral Referrals: [facility] [Provider Group] Quentin Goyal MD [Staff Physician] - - Patient Discharge Instructions Patient Printed Discharge Instructions: DI for Anxiety -- Adult, Alprazolam Additional Instructions: You were seen in the emergency department for the evaluation of your anxiety, medication. you can take xanax as prescribed. your prescription has been sent to [facility] and you can pick it up in the am. follow up with DR Barahona. return for evaluation as needed. - Post Discharge Activity
--- NOTE | 2019-09-29 14:26 | PDOC ---
Attending Attestation - Resident Resident Name: ZackQuinn - ED Attending Attestation I have performed the following: I have examined & evaluated the patient, The case was reviewed & discussed with the resident, I agree w/resident's findings & plan, Exceptions are as noted - HPI HPI: 09/29/19 14:20 84 yo F with h/o esrd, anemia, htn hld, long time smoker copd, anxiety, here stating she is withdrawing from her anxiety medication. was seen 2 days ago for missing dialysis due to panic attack. got rx for her xanax at that time but could not pick it up due to pharmacy being closed. normally picks up medication at [facility]. states is closed on the weekends. overall is feeling weak because she did not get her medication, requesting admission until she can get her medication filled tomorrow. - Physicial Exam PE: 09/29/19 14:26 awake alert lungs clear bilat heart rrr no mrg skin warm and dry. abd soft nt nd. - Medical Decision Making 09/29/19 14:30 84 yo F here with c/o running out of xanax, feels weak because she hasn't had it for 2 days. plan replace xanax, given in ED total 0.5 mg pt will excelsior picker medication tomorrow morning when pharmacy opens. no current sx of benzo withdrawal. tolerating pO given cofffee, rice krispies and sandwich in ED. 09/29/19 14:32 pt no current signs of withdrawl no tachycardia, no tremors, midly hypertensive at baseline. given xanax will fu with DR esparza in am. 09/29/19 15:36 pt ambulating without difficulty and walker. dc to home via cab.
[2019-09-29] MEDS ORDERED: ALPRAZolam 0.25 MG TABLET PO ONE (14:48)
== END 2019-09-29 15:51 | disposition home or self-care (01) ==
LOC: JER 12:50
DX: F41.9 Anxiety disorder, unspecified (principal); I12.0 Hypertensive chronic kidney disease with stage 5 chronic kidney disease or end stage renal disease; E11.22 Type 2 diabetes mellitus with diabetic chronic kidney disease; N18.6 End stage renal disease; N17.8 Other acute kidney failure; Z99.2 Dependence on renal dialysis; I73.9 Peripheral vascular disease, unspecified; E78.00 Pure hypercholesterolemia, unspecified; D64.9 Anemia, unspecified; J44.9 Chronic obstructive pulmonary disease, unspecified; F17.210 Nicotine dependence, cigarettes, uncomplicated; Z91.013 Allergy to seafood; Z88.0 Allergy status to penicillin; Z88.1 Allergy status to other antibiotic agents
CPT/HCPCS: 99283-25

== ENCOUNTER 2019-09-30 10:23 | Observation (INO) | payer OTHER ==
--- NOTE | 2019-09-30 11:43 | PDOC ---
Documentation entered by Janelle Lindquist SCRIBE, acting as scribe for Paulina Flores MD. Paulina Flores MD: This documentation has been prepared by the Ameena box Nirvannie, SCRIBE, under my direction and personally reviewed by me in its entirety. I confirm that the documentation accurately reflects all work, treatment, procedures, and medical decision making performed by me. Attending Attestation - Resident Resident Name: Shakeel Wharton - ED Attending Attestation I have performed the following: I have examined & evaluated the patient, The case was reviewed & discussed with the resident, I agree w/resident's findings & plan, Exceptions are as noted - HPI HPI: 09/30/19 11:38 The patient is an 84 year old female, with a significant past medical history of htn, esrd (on hd m,w last session 09/23 for approx. 1.5 months), diabetes, anemia, anxiety, pvd, oa, 64 pack-year smoker, who presents to the emergency department secondary to missing dialysis. As per patient, she missed her dialysis session 4 days ago on Monday (09/25) secondary to panic attacks ( patient ran out of her anxiety medications). Patient was evaluated twice (09/27 , 09/29) for weakness and anxiety. Upon patients initial presentation 09/27 she was given a prescription for Xanax but, was unable to fill the prescription secondary to it being the weekend thus she reported to the ED yesterday. Patient presents to the ED today secondary to tremors and the inability to walk since this morning. She notes to have been without her Xanax 0.25 (takes BID) for the past 4 days. Allergies: Iodine, penicillin, vancomycin, azithromycin Primary Care Physician: Dr. Flores Barahona - Physicial Exam PE: GENERAL: Awake, alert, and fully oriented, in no acute distress. Appears anxious. HEAD: No signs of trauma EYES: PERRLA, EOMI, sclera anicteric, conjunctiva clear ENT: Auricles normal inspection, hearing grossly normal, nares patent, oropharynx clear without exudates. Moist mucosa NECK: Normal ROM, supple, no lymphadenopathy, JVD, or masses LUNGS: Breath sounds equal, clear to auscultation bilaterally. No wheezes, and no crackles HEART: Regular rate and rhythm, normal S1 and S2, no murmurs, rubs or gallops ABDOMEN: Soft, nontender, normoactive bowel sounds. No guarding, no rebound. No masses EXTREMITIES: Normal range of motion, no edema. No clubbing or cyanosis. No cords, erythema, or tenderness. 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 Normal speech. Motor exam limited by poor cooperation. Sensation intact to LLE. Dec sensation to pinprick to RLE, up to mid-yo SKIN: Warm, dry, normal turgor, no rashes or lesions noted. - Medical Decision Making Pt presents with "knees giving out" B/L, which she states she had all weekend. Extremely anxious on exam, has not had her xanax refilled yet, but received doses in the ED over the weekend. She is initially able to lift both legs with no drift, but when I attempted strength testing, she developed coarse tremors. She has decreased sensation to RLE to mid-yo. Unclear if the tremors are related to weakness or if they are related to anxiety. Will obtain stroke workup and plan for likely admission.
--- NOTE | 2019-09-30 12:13 | PDOC ---
History of Present Illness - General Chief Complaint: Tremors Stated Complaint: Tremors NIH Stroke Scale - Last Known Well Date/Time & Onset Date Last Known Well: 09/26/19 Time Last Known Well: 15:00 - Initial Evaluation Level of consciousness: Alert Ask patient the month and their age: Answers one correctly Ask patient to open & close eyes; make fist and let go: Obeys both correctly Best gaze (horizontal eye movement): Normal Visual field testing: No visual field loss Facial paresis (Show teeth/raise eyebrows/close eyes tight): Normal symmetrical movement Motor Function: Left Arm: Normal Motor Function: Right Arm: Normal (extends arm 90 (or 45) degrees for 10 seconds without drift Motor Function: Left Leg: Normal (extends leg 30 degrees for 5 seconds without drift) Motor Function: Right Leg: Normal (extends leg 30 degrees for 5 seconds without drift) Limb Ataxia: No ataxia Sensory(Use pinprick test arms,legs,trunk,face/side to side): Normal Best language (Describe picture, name items, read sentences): No Aphasia Dysarthria (read several words): Normal articulation Extinction and Inattention: No abnormality - Total Score NIH Stroke Scale Score: 1 Past History - Past Medical History Allergies/Adverse Reactions: Allergies Allergy/AdvReac Type Severity Reaction Status Date / Time iodine Allergy Rash Verified 10/16/19 09:23 penicillin V Allergy Verified 10/16/19 09:23 shellfish derived Allergy Rash Verified 10/16/19 09:23 vancomycin Allergy Verified 10/16/19 09:23 azithromycin AdvReac Verified 10/16/19 09:23 Home Medications: Ambulatory Orders Aspirin [ASA -] 81 mg PO DAILY 02/19/19 Calcitriol [Calcitriol -] 0.25 mcg PO DAILY 02/19/19 Calcium Acetate 667 mg PO TID 02/19/19 Ferrous Sulfate 325 mg PO BID 05/25/19 Nifedipine ER [Procardia XL -] 120 mg PO DAILY #180 tab.er.24 05/28/19 Amitriptyline HCl [Elavil -] 50 mg PO HS #30 tablet 06/07/19 Cholestyramine/Aspartame [Questran Light Packet -] 4 gm PO BID packet 07/05/19 Ondansetron [Zofran -] 4 mg PO BID PRN tablet 07/12/19 Losartan Potassium [Cozaar -] 100 mg PO DAILY 08/09/19 Atorvastatin Ca [Lipitor] 80 mg PO HS #90 tablet 08/21/19 Clopidogrel Bisulfate [Plavix -] 75 mg PO DAILY #90 tablet 08/21/19 Isosorbide Mononitrate [Imdur -] 30 mg PO DAILY #90 tab.sr.24h 08/21/19 Acetaminophen [Tylenol .Regular Strength -] 650 mg PO Q6H PRN tablet 09/04/19 Bacitracin - [Bacitracin Topical Ointment -] 1 applic TP DAILY tube 09/04/19 Sodium Zirconium Cyclosilicate [Lokelma] 10 gm PO DAILY packet 09/18/19 Cyclobenzaprine HCl 5 mg PO BID PRN #30 tablet 10/06/19 Labetalol HCl [Normodyne -] 200 mg PO BID #60 tablet 10/06/19 hydrALAZINE HCL [Apresoline -] 25 mg PO BID #60 tablet 10/06/19 Alprazolam [Xanax] 0.25 mg PO Q8H PRN #90 tablet MDD 3 10/07/19 Anemia: Yes Asthma: Yes Cancer: No Cardiac Disorders: Yes (PAD,CAD, PVD) CVA: No COPD: Yes CHF: No DVT: No Dementia: No Diabetes: Yes Dialysis: Yes (m,w,f) GI Disorders: Yes (chronic diarrhea) Disorders: No HTN: Yes Hypercholesterolemia: Yes Liver Disease: No Seizures: No Thyroid Disease: No - Surgical History Abdominal Surgery: No Appendectomy: No Cardiac Surgery: Yes (FEMORAL BYPASS) Cholecystectomy: Yes Lung Surgery: No Neurologic Surgery: No Orthopedic Surgery: Yes (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) - Immunization History Td Vaccination: Yes TDAP Vaccination: Yes Immunization Up to Date: Yes - Psycho Social/Smoking Cessation Hx Smoking Status: Yes Smoking History: Former smoker Have you smoked in the past 12 months: No Number of Cigarettes Smoked Daily: 20 If you are a former smoker, when did you quit?: 08/10/2012 Cigars Per Day: 30 Information on smoking cessation initiated: No 'Breaking Loose' booklet given: 06/28/19 Hx Alcohol Use: No Drug/Substance Use Hx: No Substance Use Type: None Hx Substance Use Treatment: No *Physical Exam - Vital Signs Last Vital Signs Temp Pulse Resp BP Pulse Ox 97.7 F 87 18 186/89 H 100 09/30/19 10:42 09/30/19 10:42 09/30/19 10:42 09/30/19 10:42 09/30/19 11:49 09/30/19 12:09 84 y/o female PMH ESRD (MWF), DM, HTN, CAD, and PVD c/o slurred speech and unsteadiness on her feet this AM. 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 This AM she attempted to call her neighbor (time unclear) and she noticed her speech was slurring (subjective slurring). She then attempted to get out of bed (walks with walker) and was unsteady on her feet. She normally walks with a walker. She denies PARR, vision change, and numbness/tingling. This has never happened before. She has not fallen. She did not hit her head. She never lost consciousness. NIHSS 1 for saying the month is August and not September REVIEW OF SYSTEMS CONSTITUTIONAL: Absent: fever, chills, diaphoresis, generalized weakness, malaise, loss of appetite, weight change HEENT: Absent: rhinorrhea, nasal congestion, throat pain, throat swelling, difficulty swallowing, mouth swelling, ear pain, eye pain, visual changes CARDIOVASCULAR: Absent: chest pain, syncope, palpitations, irregular heart rate, lightheadedness , peripheral edema RESPIRATORY: Absent: cough, shortness of breath, dyspnea with exertion, orthopnea, wheezing, stridor, hemoptysis GASTROINTESTINAL: Absent: abdominal pain, abdominal distension, nausea, vomiting, diarrhea, constipation, melena, hematochezia GENITOURINARY: Absent: dysuria, frequency, urgency, hesitancy, hematuria, flank pain, genital pain MUSCULOSKELETAL: Absent: myalgia, arthralgia, joint swelling, back pain, neck pain SKIN: Absent: rash, itching, pallor HEMATOLOGIC/IMMUNOLOGIC: Absent: easy bleeding, easy bruising, lymphadenopathy, frequent infections ENDOCRINE: Absent: unexplained weight gain, unexplained weight loss, heat intolerance, cold intolerance NEUROLOGIC: Absent: headache, focal weakness or paresthesias, dizziness, unsteady gait, seizure, mental status changes, bladder or bowel incontinence PSYCHIATRIC: Absent: anxiety, depression, suicidal or homicidal ideation, hallucinations. VS 193/97, 92, 17, 100% RA GENERAL: AO x3 NAD , anxious HEAD: NCAT EYES: ЮЛИЯ, EOMI, sclera anicteric, conjunctiva clear. No ptosis. ENT: Ears normal, nares patent, oropharynx clear without exudates, dry mucous membranes. NECK: Trachea midline, full range of motion, supple. LUNGS: CTAB , no wheezes, no crackles, no accessory muscle use. HEART: RRR, S1, S2 without murmur, rub or gallop. ABDOMEN: Soft, nontender, nondistended, normoactive bowel sounds, no guarding, no rebound, no hepatosplenomegaly, no masses. EXTREMITIES: 2+ pulses, warm, well-perfused, no edema. NEUROLOGICAL: Cranial nerves II through XII grossly intact. Normal speech, gait not observed. FTN neg. Refused to participate in [id number]. No disdiadokinesia. Pt sat at edge of the bed and swang feet, then refused to participate in walking. 4/5 LUE distal flexor strength, otherwise 5/5 throughout in distal and prox felx/extensors. Gross sensation intact. NO RIGHT patellar reflex, 2+ LEFT patellar reflex, no brachial reflexes elicited. PSYCH: Normal mood, normal affect. SKIN: Warm, dry, normal turgor, no rashes or lesions noted CT head ordered, BP med restarted, NPO, CBC, CMP Social work for FTT 09/30/19 12:25 0.25 mg xanax once 60 mg nifedepine once Pt states she has no family or friends and does not qualify for SNF 2/2 self- pay insurance. This case's additional pronounced problem is social. 09/30/19 18:15 Senior resident spoke with Dr. Barahona regarding admission. TIA/stroke w/u for admission. 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
[2019-09-30] MEDS ORDERED: ALPRAZolam 0.25 MG TABLET ONE (12:40)
[2019-09-30] MEDS ORDERED: ALPRAZolam 1 MG TABLET PO PRN (12:40)
[2019-09-30] MEDS ORDERED: NIFEdipine 10 MG CAPSULE (FP) PO ONE (12:41)
[2019-09-30] MEDS ORDERED: NIFEdipine E.R. 30 MG TABLET ONE ×2 (12:47→14:37)
[2019-09-30] MEDS ORDERED: NIFEdipine E.R 60 MG TABLET PO ONE (13:00)
[2019-09-30 14:51] LABS: BASO % 1.3 % (0-2.0); HEMOGLOBIN 10.6 GM/dL (10.7-15.3); LYMPH % 26.1 % (8-40); MCH 31.7 pg (25.7-33.7); MCHC 32.1 g/dl (32.0-36.0); MEAN CELL VOLUME 98.7 fl (80-96); MEAN PLT VOLUME 8.2 fl (7.5-11.1); MONO % 7.3 % (3.8-10.2); NEUT % 60.3 % (42.8-82.8); PLATELET COUNT 229 K/MM3 (134-434); RBC 3.34 M/mm3 (3.60-5.2); RDW 16.7 % (11.6-15.6); WHITE BLOOD COUNT 5.6 K/mm3 (4.0-10.0)
[2019-09-30 14:56] LABS: EPI CELLS 1.4 /HPF (0-5/HPF); HYALINE CASTS 0 /lpf (0-8); PH,URINE 8.5 (5.0-8.0); URINE APPEARANCE CLEAR; URINE BILIRUBIN NEGATIVE (NEGATIVE); URINE COLOR YELLOW; URINE GLUCOSE (UA) 1+ (NEGATIVE); URINE KETONE TRACE (NEGATIVE); URINE LEUK ESTERASE NEGATIVE (NEGATIVE); URINE NITRITE NEGATIVE (NEGATIVE); URINE PROTEIN 3+ (NEGATIVE); URINE RBC 1 /hpf (0-4); URINE UROBILINOGEN 0.2 mg/dL (0.2-1.0); URINE WBC 3 /hpf (0-5)
[2019-09-30 15:25] LABS: ALBUMIN 3.2 g/dl (3.4-5.0); ALK PHOS 81 U/L (45-117); ANION GAP 11 MMOL/L (8-16); BILIRUBIN,TOTAL 0.3 mg/dL (0.2-1); BLOOD UREA NITROGEN 34.3 mg/dL (7-18); CALCIUM 8.1 mg/dL (8.5-10.1); CHLORIDE 108 mmol/L (98-107); CO2 19 mmol/L (21-32); GLUCOSE,RANDOM 76 mg/dL (74-106); POTASSIUM 4.4 mmol/L (3.5-5.1); SGOT/AST 18 U/L (15-37); SGPT/ALT 20 U/L (13-61); SODIUM 139 mmol/L (136-145)
[2019-09-30 15:27] LABS: CREATININE 7.8 mg/dL (0.55-1.3)
[2019-09-30] MEDS ORDERED: ALPRAZolam 0.25 MG TABLET PO PRN (22:35)
[2019-09-30] MEDS ORDERED: ONDANSETRON 4 MG TABLET PO PRN (22:35)
[2019-09-30] MEDS ORDERED: ACETAMINOPHEN 325 MG TABLET (FP) PO PRN (22:35)
[2019-09-30] MEDS: CARVEDILOL 6.25 MG TABLET (FP) PO SCH (23:27)
[2019-09-30] MEDS: FERROUS SO4 325 MG TABLET (FP) PO SCH (23:27)
[2019-09-30] MEDS: CALCIUM ACETATE 667 MG CAPSULE (FP) PO SCH (23:27)
[2019-09-30] MEDS: CHOLESTYRAMINE/ASPARTAME 4 GM PACKET PO SCH (23:28)
[2019-10-01 08:09] LABS: BLOOD UREA NITROGEN 40.8 mg/dL (7-18); CALCIUM 8.3 mg/dL (8.5-10.1); POTASSIUM 4.3 mmol/L (3.5-5.1)
[2019-10-01 08:20] LABS: CREATININE 8.8 mg/dL (0.55-1.3)
--- NOTE | 2019-10-01 08:36 | CONSULT ---
Consult - text type - Consultation Consultation Note: Neurology History of Present Illness - General Chief Complaint: Tremors Primary Care Physician: Dr. Flores FABIAN The patient is an 84 year old female, with a significant past medical history of htn, esrd (on hd m,w last session 09/23 for approx. 1.5 months), diabetes, anemia, anxiety, pvd, oa, 64 pack-year smoker, who presented to the emergency department secondary to missing dialysis. As per patient, she missed her dialysis session 4 days prior to day of admission on Monday (09/25) secondary to panic attacks (patient ran out of her anxiety medications). Patient was evaluated twice (09/27, 09/29) for weakness and anxiety. Upon patients initial presentation 09/27 she was given a prescription for Xanax but , was unable to fill the prescription secondary to it being the weekend thus she reported to the ED on day prior to admission. Patient presented to the ED today secondary to tremors and the inability to walk since the morning. She noted to have been without her Xanax 0.25 (takes BID) for the past 4 days. She c /o slurred speech and unsteadiness on her feet on day of admission. She reported that she was in the hospital on day before admission because she felt unwell and was dc to home (she lives alone/no [employer]). On day of admission, she attempted to call her neighbor (time unclear) and she noticed her speech was slurring (subjective slurring). She then attempted to get out of bed (walks with walker) and was unsteady on her feet. She normally walks with a walker. She denied PARR, vision change, and numbness/tingling. This has never happened before. She has not fallen. She did not hit her head. She never lost consciousness. NIHSS 1 for saying the month is August and not September. Ct of head performed and showed no acute intracranial pathology. Generalized volume loss with moderate ventricular dilatation and extensive periventricular chronic microvascular ischemic changes. Left posterior calcified mass/meningioma without significant interval change in comparison to prior CT on 09/26/2018. Neurologically, patient without deficits and on admission there was concern for CVA which does not appear to be the case. Patient without focal deficits, normal speech, mental status at baseline. Past History Anemia: Yes Asthma: Yes Cancer: No Cardiac Disorders: Yes (PAD,CAD, PVD) CVA: No COPD: Yes CHF: No DVT: No Dementia: No Diabetes: Yes Dialysis: Yes (m,w,f) GI Disorders: Yes (chronic diarrhea) Disorders: No HTN: Yes Hypercholesterolemia: Yes Liver Disease: No Seizures: No Thyroid Disease: No FAMILY: HTN - Surgical History Abdominal Surgery: No Appendectomy: No Cardiac Surgery: Yes (FEMORAL BYPASS) Cholecystectomy: Yes Lung Surgery: No Neurologic Surgery: No Orthopedic Surgery: Yes (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) - Immunization History Td Vaccination: Yes TDAP Vaccination: Yes Immunization Up to Date: Yes - Psycho Social/Smoking Cessation Hx Smoking Status: Yes Smoking History: Former smoker Have you smoked in the past 12 months: No Number of Cigarettes Smoked Daily: 20 If you are a former smoker, when did you quit?: 08/10/2012 Cigars Per Day: 30 Information on smoking cessation initiated: No 'Breaking Loose' booklet given: 06/28/19 Hx Alcohol Use: No Drug/Substance Use Hx: No Substance Use Type: None Hx Substance Use Treatment: No REVIEW OF SYSTEMS CONSTITUTIONAL: Absent: fever, chills, diaphoresis, + generalized weakness, malaise HEENT: Absent: rhinorrhea, nasal congestion, throat pain, throat swelling, difficulty swallowing, mouth swelling, ear pain, eye pain, visual changes CARDIOVASCULAR: Absent: chest pain, syncope, palpitations, irregular heart rate, lightheadedness , peripheral edema RESPIRATORY: Absent: cough, shortness of breath, dyspnea with exertion, orthopnea, wheezing, stridor, hemoptysis GASTROINTESTINAL: Absent: abdominal pain, abdominal distension, nausea GENITOURINARY: Absent: dysuria, frequency, urgency, MUSCULOSKELETAL: Absent: myalgia, SKIN: Absent: rash, itching, pallor HEMATOLOGIC/IMMUNOLOGIC: Absent: easy bleeding, easy bruising, lymphadenopathy, frequent infections ENDOCRINE: Absent: unexplained weight gain, unexplained weight loss, heat intolerance, cold intolerance NEUROLOGIC: Absent: headache, focal weakness or paresthesias, dizziness, seizure, PSYCHIATRIC: Absent: anxiety, depression, suicidal or homicidal ideation, hallucinations. - Past Medical History Allergies/Adverse Reactions: Allergies Allergy/AdvReac Type Severity Reaction Status Date / Time iodine Allergy Rash Verified 09/30/19 10:45 penicillin V Allergy Verified 09/30/19 10:45 shellfish derived Allergy Rash Verified 09/30/19 10:45 vancomycin Allergy Verified 09/30/19 10:45 azithromycin AdvReac Verified 09/30/19 10:45 Home Medications: Ambulatory Orders Alprazolam [Xanax] 0.25 mg PO BID PRN 02/19/19 Aspirin [ASA -] 81 mg PO DAILY 02/19/19 Calcitriol [Calcitriol -] 0.25 mcg PO DAILY 02/19/19 Calcium Acetate 667 mg PO TID 02/19/19 Carvedilol [Coreg -] 6.25 mg PO BID 02/19/19 Ferrous Sulfate 325 mg PO BID 05/25/19 Nifedipine ER [Procardia XL -] 120 mg PO DAILY #180 tab.er.24 05/28/19 Amitriptyline HCl [Elavil -] 50 mg PO HS #30 tablet 06/07/19 Cholestyramine/Aspartame [Questran Light Packet -] 4 gm PO BID packet 07/05/19 Ondansetron [Zofran -] 4 mg PO BID PRN tablet 07/12/19 Losartan Potassium [Cozaar -] 100 mg PO DAILY 08/09/19 Atorvastatin Ca [Lipitor] 80 mg PO HS #90 tablet 08/21/19 Clopidogrel Bisulfate [Plavix -] 75 mg PO DAILY #90 tablet 08/21/19 Isosorbide Mononitrate [Imdur -] 30 mg PO DAILY #90 tab.sr.24h 08/21/19 Acetaminophen [Tylenol .Regular Strength -] 650 mg PO Q6H PRN tablet 09/04/19 Bacitracin - [Bacitracin Topical Ointment -] 1 applic TP DAILY tube 09/04/19 Sodium Zirconium Cyclosilicate [Lokelma] 10 gm PO DAILY packet 09/18/19 Active Medications Acetaminophen (Tylenol -) 650 mg PO Q6H PRN PRN Reason: FEVER Alprazolam (Xanax) 0.25 mg PO ONCE PRN PRN Reason: ANXIETY Last Admin: 09/30/19 12:44 Dose: 0.25 mg Alprazolam (Xanax -) 0.25 mg PO BID PRN PRN Reason: ANXIETY Last Admin: 10/01/19 06:03 Dose: 0.25 mg Amitriptyline HCl (Elavil -) 50 mg PO HS [facility] Aspirin (Asa -) 81 mg PO DAILY [facility] Atorvastatin Calcium (Lipitor -) 80 mg PO HS [facility] Bacitracin (Bacitracin -) 1 applic TP DAILY [facility] Calcitriol (Rocaltrol -) 0.25 mcg PO DAILY [facility] Calcium Acetate (Phoslo -) 667 mg PO TIDCM [facility] Last Admin: 09/30/19 23:27 Dose: 667 mg Carvedilol (Coreg -) 6.25 mg PO BID [facility] Last Admin: 09/30/19 23:27 Dose: 6.25 mg Cholestyramine Resin (Questran Light Packet -) 4 gm PO BID [facility] Last Admin: 09/30/19 23:28 Dose: 4 gm Clopidogrel Bisulfate (Plavix -) 75 mg PO DAILY [facility] Ferrous Sulfate (Feosol -) 325 mg PO BID [facility] Last Admin: 09/30/19 23:27 Dose: 325 mg Isosorbide Mononitrate (Imdur -) 30 mg PO DAILY [facility] Losartan Potassium (Cozaar -) 100 mg PO DAILY [facility] Nifedipine (Procardia Xl -) 120 mg PO DAILY [facility] Ondansetron HCl (Zofran -) 4 mg PO BID PRN PRN Reason: NAUSEA AND/OR VOMITING Sodium Zirconium Cyclosilicate (Lokelma) 10 gm PO DAILY [facility] *Physical Exam - Vital Signs Vital Signs Period Temp Pulse Resp BP Sys/Banuelos Pulse Ox Last 24 Hr 97.7 F-98.7 F 60-92 16-21 152-186/66-89 97-100 GENERAL: AO x3 NAD , anxious HEAD: NCAT EYES: ЮЛИЯ, EOMI, sclera anicteric, conjunctiva clear. No ptosis. ENT: Ears normal, nares patent, oropharynx clear without exudates, dry mucous membranes. NECK: Trachea midline, full range of motion, supple. LUNGS: CTAB , no wheezes, no crackles, no accessory muscle use. HEART: RRR, S1, S2 without murmur, rub or gallop. ABDOMEN: Soft, nontender, nondistended, normoactive bowel sounds, no guarding, no rebound, no hepatosplenomegaly, no masses. EXTREMITIES: 2+ pulses, warm, well-perfused, no edema. NEUROLOGICAL: Cranial nerves II through XII grossly intact. Normal speech, gait not observed. FTN neg. Refused to participate in [id number]. No disdiadokinesia. Pt sat at edge of the bed and swang feet, then refused to participate in walking. 4/5 LUE distal flexor strength, otherwise 5/5 throughout in distal and prox felx/extensors. Gross sensation intact. NO RIGHT patellar reflex, 2+ LEFT patellar reflex, no brachial reflexes elicited. PSYCH: Normal mood, normal affect. SKIN: Warm, dry, normal turgor, no rashes or lesions noted CBCD WBC 5.6 K/mm3 (4.0-10.0) 09/30/19 13:30 RBC 3.34 M/mm3 (3.60-5.2) L 09/30/19 13:30 Hgb 10.6 GM/dL (10.7-15.3) L 09/30/19 13:30 Hct 33.0 % (32.4-45.2) 09/30/19 13:30 MCV 98.7 fl (80-96) H 09/30/19 13:30 MCHC 32.1 g/dl (32.0-36.0) 09/30/19 13:30 RDW 16.7 % (11.6-15.6) H 09/30/19 13:30 Plt Count 229 K/MM3 (134-434) 09/30/19 13:30 MPV 8.2 fl (7.5-11.1) 09/30/19 13:30 CMP Sodium 138 mmol/L (136-145) 10/01/19 06:13 Potassium 4.3 mmol/L (3.5-5.1) 10/01/19 06:13 Chloride 109 mmol/L (98-107) H 10/01/19 06:13 Carbon Dioxide 19 mmol/L (21-32) L 10/01/19 06:13 Anion Gap 10 MMOL/L (8-16) 10/01/19 06:13 BUN 40.8 mg/dL (7-18) H 10/01/19 06:13 Creatinine 8.8 mg/dL (0.55-1.3) H* 10/01/19 06:13 Random Glucose 97 mg/dL (74-106) 10/01/19 06:13 Calcium 8.3 mg/dL (8.5-10.1) L 10/01/19 06:13 Total Bilirubin 0.3 mg/dL (0.2-1) 09/30/19 13:30 AST 18 U/L (15-37) 09/30/19 13:30 ALT 20 U/L (13-61) 09/30/19 13:30 Alkaline Phosphatase 81 U/L (45-117) 09/30/19 13:30 Total Protein 7.0 g/dl (6.4-8.2) 09/30/19 13:30 Albumin 3.2 g/dl (3.4-5.0) L 09/30/19 13:30 CARDIAC ENZYMES Creatine Kinase 91 U/L (26-192) 09/30/19 13:30 Troponin I < 0.02 ng/ml (0.00-0.05) 09/30/19 13:30 Plan The patient is an 84 year old female, with a significant past medical history of htn, esrd (on hd m,w last session 09/23 for approx. 1.5 months), diabetes, anemia, anxiety, pvd, oa, 64 pack-year smoker, who presented to the emergency department secondary to missing dialysis. As per patient, she missed her dialysis session 4 days prior to day of admission on Monday (09/25) secondary to panic attacks (patient ran out of her anxiety medications). Patient was evaluated twice (09/27, 09/29) for weakness and anxiety. Upon patients initial presentation 09/27 she was given a prescription for Xanax but , was unable to fill the prescription secondary to it being the weekend thus she reported to the ED on day prior to admission. Patient presented to the ED today secondary to tremors and the inability to walk since the morning. She noted to have been without her Xanax 0.25 (takes BID) for the past 4 days. She c /o slurred speech and unsteadiness on her feet on day of admission. She reported that she was in the hospital on day before admission because she felt unwell and was dc to home (she lives alone/no [employer]). On day of admission, she attempted to call her neighbor (time unclear) and she noticed her speech was slurring (subjective slurring). She then attempted to get out of bed (walks with walker) and was unsteady on her feet. She normally walks with a walker. She denied PARR, vision change, and numbness/tingling. This has never happened before. She has not fallen. She did not hit her head. She never lost consciousness. NIHSS 1 for saying the month is August and not September. Ct of head performed and showed no acute intracranial pathology. Generalized volume loss with moderate ventricular dilatation and extensive periventricular chronic microvascular ischemic changes. Left posterior calcified mass/meningioma without significant interval change in comparison to prior CT on 09/26/2018. Neurologically, patient without deficits and on admission there was concern for CVA which does not appear to be the case. Patient without focal deficits, normal speech, mental status at baseline. Patient for HD and this would be of benefit for clearing toxins, metabolites. Recommend monitoring anxiety which also precipitate subsequent episodes. Monitor blood pressure, maintain normotensive range. L posterior meningioma not likely etiology to her complaints and chronic, does not require acute intervention.
[2019-10-01] MEDS: CALCIUM ACETATE 667 MG CAPSULE (FP) PO SCH ×3 (09:00→18:11)
[2019-10-01] MEDS: CARVEDILOL 6.25 MG TABLET (FP) PO SCH ×2 (09:22→22:09)
[2019-10-01] MEDS: CLOPIDOGREL BISULFATE 75 MG TABLET (FP) PO SCH (09:22)
[2019-10-01] MEDS: CALCITRIOL 0.25 MCG CAPSULE (FP) PO SCH (09:22)
[2019-10-01] MEDS: ASPIRIN 81 MG CHEWABLE TABLETS PO SCH (09:23)
[2019-10-01] MEDS: FERROUS SO4 325 MG TABLET (FP) PO SCH ×2 (09:23→22:09)
[2019-10-01] MEDS: ISOSORBIDE MONONITRATE 30 MG TAB.SR.24H (FP) PO SCH (09:23)
[2019-10-01] MEDS: NIFEdipine E.R 60 MG TABLET PO SCH (09:24)
[2019-10-01] MEDS: LOSARTAN POTASSIUM 50 MG TABLET (FP) PO SCH (09:25)
[2019-10-01] MEDS: SODIUM ZIRCONIUM CYCLOSILICATE (LOKELMA) 5 GM PACKET PO SCH (09:31)
--- NOTE | 2019-10-01 09:50 | HP ---
Admitting History and Physical - Primary Care Physician PCP: Jarrett Barahona - Admission Chief Complaint: unsteady gait History of Present Illness: Pt came to ER c/o slurred sppech, noticed ti be normal by the time of ER evaluation, and that cannot walk; pt w/o other deficit; Head CT scan was negative. Pt was admitted for TIA, possible CVA. History Source: Patient Limitations to Obtaining History: No Limitations - Past Medical History Cardiovascular: Yes: HTN, Hyperlipdemia, Murmur, Other (PAD) Pulmonary: Yes: Asthma, COPD Hepatobiliary: Yes: Cholelithiasis, Choledocholithiasis Renal/: Yes: Renal Inusuff, Hemodialysis ...: No Heme/Onc: No: Anemia Infectious Disease: Yes: Other (history of osteomyelitis in the past) Endocrine: Yes: Diabetes Mellitus - Past Surgical History Past Surgical History: Yes: Amputation (1-st R toe amputation), Bypass (Right fem pop bypass) - Smoking History Smoking history: Current every day smoker Have you smoked in the past 12 months: Yes Aproximately how many cigarettes per day: 20 If you are a former smoker, when did you quit?: 08/10/2012 - Alcohol/Substance Use Hx Alcohol Use: Yes (OCCASIONAL) History of Substance Use: reports: None - Social History ADL: Independent 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, 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, 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 Travel: No Home Medications - Allergies Allergies/Adverse Reactions: Allergies Allergy/AdvReac Type Severity Reaction Status Date / Time iodine Allergy Rash Verified 09/30/19 10:45 penicillin V Allergy Verified 09/30/19 10:45 shellfish derived Allergy Rash Verified 09/30/19 10:45 vancomycin Allergy Verified 09/30/19 10:45 azithromycin AdvReac Verified 09/30/19 10:45 - Home Medications Home Medications: Ambulatory Orders Alprazolam [Xanax] 0.25 mg PO BID PRN 02/19/19 Aspirin [ASA -] 81 mg PO DAILY 02/19/19 Calcitriol [Calcitriol -] 0.25 mcg PO DAILY 02/19/19 Calcium Acetate 667 mg PO TID 02/19/19 Carvedilol [Coreg -] 6.25 mg PO BID 02/19/19 Ferrous Sulfate 325 mg PO BID 05/25/19 Nifedipine ER [Procardia XL -] 120 mg PO DAILY #180 tab.er.24 05/28/19 Amitriptyline HCl [Elavil -] 50 mg PO HS #30 tablet 06/07/19 Cholestyramine/Aspartame [Questran Light Packet -] 4 gm PO BID packet 07/05/19 Ondansetron [Zofran -] 4 mg PO BID PRN tablet 07/12/19 Losartan Potassium [Cozaar -] 100 mg PO DAILY 08/09/19 Atorvastatin Ca [Lipitor] 80 mg PO HS #90 tablet 08/21/19 Clopidogrel Bisulfate [Plavix -] 75 mg PO DAILY #90 tablet 08/21/19 Isosorbide Mononitrate [Imdur -] 30 mg PO DAILY #90 tab.sr.24h 08/21/19 Acetaminophen [Tylenol .Regular Strength -] 650 mg PO Q6H PRN tablet 09/04/19 Bacitracin - [Bacitracin Topical Ointment -] 1 applic TP DAILY tube 09/04/19 Sodium Zirconium Cyclosilicate [Lokelma] 10 gm PO DAILY packet 09/18/19 Review of Systems - Review of Systems Constitutional: denies: Chills, Fever Eyes: denies: Blurred Vision, Double Vision, Photophobia HENT: denies: Ear Pain, Epistaxis, Nasal Congestion, Throat Pain Neck: denies: Pain on Movement, Stiffness Cardiovascular: denies: Chest Pain, Edema, Palpitations Respiratory: reports: Wheezing. denies: Cough, Hemoptysis Gastrointestinal: denies: Abdominal Pain, Nausea, Vomiting Genitourinary: denies: Burning, Discharge Integumentary: denies: Bruising, Eczema, Rash Neurological: denies: Change in LOC, Confusion, Syncope, Tremors Endocrine: denies: Excessive Sweating, Unexplained Weight Gain Hematology/Lymphatic: denies: Easily Bruised, Excessive Bleeding Psychiatric: reports: Anxiety. denies: Depression, Hallucinations Physical Examination Vital Signs: Vital Signs Temperature 98.7 F 10/01/19 05:57 Pulse Rate 86 10/01/19 05:57 Respiratory Rate 16 10/01/19 06:49 Blood Pressure 170/66 10/01/19 05:57 O2 Sat by Pulse Oximetry (%) 98 10/01/19 06:49 Constitutional: Yes: No Distress, Calm (pt stated that just took Xanax) Eyes: Yes: Conjunctiva Clear, EOM Intact HENT: No: Drooling, Epistaxis, Rhinnorhea Neck: No: Trachea Midline, Lymphadenopathy Cardiovascular: Yes: Regular Rate and Rhythm, S1, S2 Respiratory: Yes: Regular, CTA Bilaterally. No: Rales, Wheezes Gastrointestinal: Yes: Normal Bowel Sounds, Soft. No: Hepatomegaly, Splenomegaly, Tenderness ...Rectal Exam: Yes: Deferred Renal/: No: CVA Tenderness - Left, CVA Tenderness - Right Breast(s): Yes: Other (deferred) Extremities: No: Cold, Cool Edema: No Integumentary: No: Bruising, Rash Neurological: Yes: Alert, Oriented, Other (motor and sensory examiantion is symmetric in UE/ LE/ face. Pt states that cannot walk because is anxious.) Psychiatric: Yes: Alert. No: Oriented Labs: CBC, BMP 09/30/19 13:30 10/01/19 06:13 Imaging - Results Cat Scan: Report Reviewed Problem List - Problems (1) TIA (transient ischemic attack) Code(s): G45.9 - TRANSIENT CEREBRAL ISCHEMIC ATTACK, UNSPECIFIED (2) Anxiety Code(s): F41.9 - ANXIETY DISORDER, UNSPECIFIED (3) Hypertension Code(s): I10 - ESSENTIAL (PRIMARY) HYPERTENSION (4) ESRD (end stage renal disease) on dialysis Code(s): N18.6 - END STAGE RENAL DISEASE; Z99.2 - DEPENDENCE ON RENAL DIALYSIS (5) CAD (coronary artery disease) Code(s): I25.10 - ATHSCL HEART DISEASE OF [place] CORONARY ARTERY W/O ANG PCTRS Qualifiers: Coronary Disease-Associated Artery/Lesion type: [place] artery [place] vs. transplanted heart: [place] heart Associated angina: without angina Qualified Code(s): I25.10 - Atherosclerotic heart disease of [place] coronary artery without angina pectoris (6) Diabetes mellitus Code(s): E11.9 - TYPE 2 DIABETES MELLITUS WITHOUT COMPLICATIONS Qualifiers: Diabetes mellitus type: type 2 Diabetes mellitus complication status: with kidney complications Diabetes mellitus complication detail: with chronic kidney disease Chronic kidney disease stage: on chronic dialysis Assessment/Plan Neuro consult Renal consult Psychiatry consult- pt is refusing to see a psychiatrist, states that she just needs extra medication, mainly Xanax, and would be fine; she agrees to see a psychiatrist but one that is across from hospital, to be easy to follow-up with ; she is refusing to see Dr Collier as worked with him many years ago; to try to bring in Dr Strauss if makes psychiatry consults. Physical therapy eval. To f/u in AM
[2019-10-01] MEDS: BACITRACIN 15 GM TUBE TOPICAL OINTMENT TP SCH (11:01)
[2019-10-01] MEDS: CHOLESTYRAMINE/ASPARTAME 4 GM PACKET PO SCH ×2 (11:02→22:09)
[2019-10-01] MEDS ORDERED: SODIUM CHLORIDE 250 ML IV PRN (13:03)
--- NOTE | 2019-10-01 13:10 | CONSULT ---
Consult - text type - Consultation Consultation Note: Renal consult for ESRD on HD This is a 84 year old woman with history of ESRD no HD, current smoker, DM, hypertension who presented from home with weakness and tremors and having missed dialysis. She was admitted for neurological work up. She last had dialysis in the hospital on Monday. She is very upset about not being admitted when she came to the ER on Monday. She denies any chest pain, fever or chills. PMhx: as above Allergies: NKDA Family Hx: NC Social Hx: + tobacco ROS: as per HPI, all other pertinent ros negative Home Medications Medication Instructions Recorded Alprazolam [Xanax] 0.25 mg PO BID PRN 02/19/19 Aspirin [ASA -] 81 mg PO DAILY 02/19/19 Calcitriol [Calcitriol -] 0.25 mcg PO DAILY 02/19/19 Calcium Acetate 667 mg PO TID 02/19/19 Carvedilol [Coreg -] 6.25 mg PO BID 02/19/19 Ferrous Sulfate 325 mg PO BID 05/25/19 Nifedipine ER [Procardia XL -] 120 mg PO DAILY #180 tab.er.24 05/28/19 Amitriptyline HCl [Elavil -] 50 mg PO HS #30 tablet 06/07/19 Cholestyramine/Aspartame [Questran 4 gm PO BID packet 07/05/19 Light Packet -] Ondansetron [Zofran -] 4 mg PO BID PRN tablet 07/12/19 Losartan Potassium [Cozaar -] 100 mg PO DAILY 08/09/19 Atorvastatin Ca [Lipitor] 80 mg PO HS #90 tablet 08/21/19 Clopidogrel Bisulfate [Plavix -] 75 mg PO DAILY #90 tablet 08/21/19 Isosorbide Mononitrate [Imdur -] 30 mg PO DAILY #90 tab.sr.24h 08/21/19 Acetaminophen [Tylenol .Regular 650 mg PO Q6H PRN tablet 09/04/19 Strength -] Bacitracin - [Bacitracin Topical 1 applic TP DAILY tube 09/04/19 Ointment -] Sodium Zirconium Cyclosilicate 10 gm PO DAILY packet 09/18/19 [Lokelma] Vital Signs Temperature 98.2 F 10/01/19 10:00 Pulse Rate 76 10/01/19 10:00 Respiratory Rate 16 10/01/19 11:00 Blood Pressure 169/77 10/01/19 10:00 O2 Sat by Pulse Oximetry (%) 98 10/01/19 11:00 Intake & Output 09/28/19 09/29/19 09/30/19 10/01/19 23:59 23:59 23:59 23:59 Intake Total 200 Balance 200 Weight 50.802 kg 50.802 kg NAD awake and alert neck supple, no JVD CTA, no rales or wheeze soft NT/ND no LE edema CBC, BMP 09/30/19 13:30 10/01/19 06:13 Current Medications Acetaminophen (Tylenol -) 650 mg PO Q6H PRN PRN Reason: FEVER Alprazolam (Xanax) 0.25 mg PO ONCE PRN PRN Reason: ANXIETY Last Admin: 09/30/19 12:44 Dose: 0.25 mg Alprazolam (Xanax -) 0.25 mg PO BID PRN PRN Reason: ANXIETY Last Admin: 10/01/19 06:03 Dose: 0.25 mg Amitriptyline HCl (Elavil -) 50 mg PO HS [facility] Aspirin (Asa -) 81 mg PO DAILY [facility] Last Admin: 10/01/19 09:23 Dose: 81 mg Atorvastatin Calcium (Lipitor -) 80 mg PO HS [facility] Bacitracin (Bacitracin -) 1 applic TP DAILY [facility] Last Admin: 10/01/19 11:01 Dose: 1 applic Calcitriol (Rocaltrol -) 0.25 mcg PO DAILY [facility] Last Admin: 10/01/19 09:22 Dose: 0.25 mcg Calcium Acetate (Phoslo -) 667 mg PO TIDCM [facility] Last Admin: 10/01/19 09:00 Dose: 667 mg Carvedilol (Coreg -) 6.25 mg PO BID [facility] Last Admin: 10/01/19 09:22 Dose: 6.25 mg Cholestyramine Resin (Questran Light Packet -) 4 gm PO BID [facility] Last Admin: 10/01/19 11:02 Dose: 4 gm Clopidogrel Bisulfate (Plavix -) 75 mg PO DAILY [facility] Last Admin: 10/01/19 09:22 Dose: 75 mg Ferrous Sulfate (Feosol -) 325 mg PO BID [facility] Last Admin: 10/01/19 09:23 Dose: 325 mg Heparin Sodium (Porcine) (Heparin -) 300 unit IVPUSH Q1H [facility] Stop: 10/01/19 14:31 Sodium Chloride (Normal Saline -) 250 mls @ 3,000 mls/hr IV PRN PRN PRN Reason: Hypotension during Dialysis Stop: 10/02/19 13:02 Isosorbide Mononitrate (Imdur -) 30 mg PO DAILY [facility] Last Admin: 10/01/19 09:23 Dose: 30 mg Losartan Potassium (Cozaar -) 100 mg PO DAILY [facility] Last Admin: 10/01/19 09:25 Dose: 100 mg Nifedipine (Procardia Xl -) 120 mg PO DAILY [facility] Last Admin: 10/01/19 09:24 Dose: 120 mg Ondansetron HCl (Zofran -) 4 mg PO BID PRN PRN Reason: NAUSEA AND/OR VOMITING Sodium Zirconium Cyclosilicate (Lokelma) 10 gm PO DAILY [facility] Last Admin: 10/01/19 09:31 Dose: 10 gm 84 year old woman with history of ESRD no HD, current smoker, DM, hypertension who presented from home with weakness and tremors and having missed dialysis. 1. ESRD on HD with missed dialysis 2. Tremors/Weakness w/o evidence of CVA 3. Hypertension 4. DM 5. Anxiety 6. CKD related Anemia Pt tolerating dialysis this AM. Can get next dialysis on Monday as an outpatient. Renal diet, 1.2L fluid restriction. Tremors unlikely to be related to uremia as BUN only ~40 but can reaccess after dialysis. Neurology consult noted, no evidence of acute CVA. Continue present antihypertensives including ARB. Xanax PRN as per primary team Psych eval. Hgb is at goal no indication for JACOB Discharge planning as per primary team Thank you Quentin Goyal DO
[2019-10-01] MEDS: HEPARIN NA (PORCINE) 5,000 UNITS/ML 1ML VIAL IVPUSH SCH ×2 (13:12→14:53)
[2019-10-01] MEDS ORDERED: PT OWN MED DRAWER 7, Y5N ONE (20:21)
[2019-10-01] MEDS: ALPRAZolam 0.25 MG TABLET PO PRN (22:09)
[2019-10-01] MEDS: ATORVASTATIN CA 80 MG TABLET (FP) PO SCH (22:09)
[2019-10-01] MEDS: AMITRIPTYLINE HCL 25 MG TABLET PO SCH (22:57)
--- NOTE | 2019-10-02 08:23 | PN ---
Progress Note (short form) - Note Progress Note: Neurology History of Present Illness - General Chief Complaint: Tremors Primary Care Physician: Dr. Flores FABIAN The patient is an 84 year old female, with a significant past medical history of htn, esrd (on hd m,w last session 09/23 for approx. 1.5 months), diabetes, anemia, anxiety, pvd, oa, 64 pack-year smoker, who presented to the emergency department secondary to missing dialysis. As per patient, she missed her dialysis session 4 days prior to day of admission on Monday (09/25) secondary to panic attacks (patient ran out of her anxiety medications). Patient was evaluated twice (09/27, 09/29) for weakness and anxiety. Upon patients initial presentation 09/27 she was given a prescription for Xanax but , was unable to fill the prescription secondary to it being the weekend thus she reported to the ED on day prior to admission. Patient presented to the ED today secondary to tremors and the inability to walk since the morning. She noted to have been without her Xanax 0.25 (takes BID) for the past 4 days. She c /o slurred speech and unsteadiness on her feet on day of admission. She reported that she was in the hospital on day before admission because she felt unwell and was dc to home (she lives alone/no DEALMAKER). On day of admission, she attempted to call her neighbor (time unclear) and she noticed her speech was slurring (subjective slurring). She then attempted to get out of bed (walks with walker) and was unsteady on her feet. She normally walks with a walker. She denied PARR, vision change, and numbness/tingling. This has never happened before. She has not fallen. She did not hit her head. She never lost consciousness. NIHSS 1 for saying the month is August and not September. Ct of head performed and showed no acute intracranial pathology. Generalized volume loss with moderate ventricular dilatation and extensive periventricular chronic microvascular ischemic changes. Left posterior calcified mass/meningioma without significant interval change in comparison to prior CT on 09/26/2018. Neurologically, patient without deficits and on admission there was concern for CVA which does not appear to be the case. Patient without focal deficits, normal speech, mental status at baseline. She does complain of muscle spasms and which she described as shaking. I did not visualize any involuntary movements but we discussed trial of cyclobenzaprine 5 mg twice a day in hopes that this will provide some relief. Xanax adjustment may also be considered, would defer to psychiatry her primary care provider. Neurologically otherwise stable at this time. Active Medications Acetaminophen (Tylenol -) 650 mg PO Q6H PRN PRN Reason: FEVER Alprazolam (Xanax -) 0.25 mg PO Q8H PRN PRN Reason: ANXIETY Last Admin: 10/01/19 22:09 Dose: 0.25 mg Amitriptyline HCl (Elavil -) 50 mg PO HS [facility] Last Admin: 10/01/19 22:57 Dose: 50 mg Aspirin (Asa -) 81 mg PO DAILY [facility] Last Admin: 10/01/19 09:23 Dose: 81 mg Atorvastatin Calcium (Lipitor -) 80 mg PO HS [facility] Last Admin: 10/01/19 22:09 Dose: 80 mg Bacitracin (Bacitracin -) 1 applic TP DAILY [facility] Last Admin: 10/01/19 11:01 Dose: 1 applic Calcitriol (Rocaltrol -) 0.25 mcg PO DAILY [facility] Last Admin: 10/01/19 09:22 Dose: 0.25 mcg Calcium Acetate (Phoslo -) 667 mg PO TIDCM [facility] Last Admin: 10/01/19 18:11 Dose: 667 mg Carvedilol (Coreg -) 6.25 mg PO BID [facility] Last Admin: 10/01/19 22:09 Dose: 6.25 mg Cholestyramine Resin (Questran Light Packet -) 4 gm PO BID [facility] Last Admin: 10/01/19 22:09 Dose: 4 gm Clopidogrel Bisulfate (Plavix -) 75 mg PO DAILY [facility] Last Admin: 10/01/19 09:22 Dose: 75 mg Ferrous Sulfate (Feosol -) 325 mg PO BID [facility] Last Admin: 10/01/19 22:09 Dose: 325 mg Sodium Chloride (Normal Saline -) 250 mls @ 3,000 mls/hr IV PRN PRN PRN Reason: Hypotension during Dialysis Stop: 10/02/19 13:02 Isosorbide Mononitrate (Imdur -) 30 mg PO DAILY [facility] Last Admin: 10/01/19 09:23 Dose: 30 mg Losartan Potassium (Cozaar -) 100 mg PO DAILY [facility] Last Admin: 10/01/19 09:25 Dose: 100 mg Nifedipine (Procardia Xl -) 120 mg PO DAILY [facility] Last Admin: 10/01/19 09:24 Dose: 120 mg Ondansetron HCl (Zofran -) 4 mg PO BID PRN PRN Reason: NAUSEA AND/OR VOMITING Sodium Zirconium Cyclosilicate (Lokelma) 10 gm PO DAILY [facility] Last Admin: 10/01/19 09:31 Dose: 10 gm *Physical Exam - Vital Signs Vital Signs Period Temp Pulse Resp BP Sys/Banuelos Pulse Ox Last 24 Hr 98.2 F-98.7 F 18-92 14-72 95-169/42-88 98-98 GENERAL: AO x3 NAD , anxious HEAD: NCAT EYES: ЮЛИЯ, EOMI, sclera anicteric, conjunctiva clear. No ptosis. ENT: Ears normal, nares patent, oropharynx clear without exudates, dry mucous membranes. NECK: Trachea midline, full range of motion, supple. LUNGS: CTAB , no wheezes, no crackles, no accessory muscle use. HEART: RRR, S1, S2 without murmur, rub or gallop. ABDOMEN: Soft, nontender, nondistended, normoactive bowel sounds, no guarding, no rebound, no hepatosplenomegaly, no masses. EXTREMITIES: 2+ pulses, warm, well-perfused, no edema. NEUROLOGICAL: Cranial nerves II through XII grossly intact. Normal speech, gait not observed. FTN neg. Refused to participate in [id number]. No disdiadokinesia. Pt sat at edge of the bed and swang feet, then refused to participate in walking. 4/5 LUE distal flexor strength, otherwise 5/5 throughout in distal and prox felx/extensors. Gross sensation intact. NO RIGHT patellar reflex, 2+ LEFT patellar reflex, no brachial reflexes elicited. PSYCH: Normal mood, normal affect. SKIN: Warm, dry, normal turgor, no rashes or lesions noted CBCD WBC 5.6 K/mm3 (4.0-10.0) 09/30/19 13:30 RBC 3.34 M/mm3 (3.60-5.2) L 09/30/19 13:30 Hgb 10.6 GM/dL (10.7-15.3) L 09/30/19 13:30 Hct 33.0 % (32.4-45.2) 09/30/19 13:30 MCV 98.7 fl (80-96) H 09/30/19 13:30 MCHC 32.1 g/dl (32.0-36.0) 09/30/19 13:30 RDW 16.7 % (11.6-15.6) H 09/30/19 13:30 Plt Count 229 K/MM3 (134-434) 09/30/19 13:30 MPV 8.2 fl (7.5-11.1) 09/30/19 13:30 CMP Sodium 138 mmol/L (136-145) 10/01/19 06:13 Potassium 4.3 mmol/L (3.5-5.1) 10/01/19 06:13 Chloride 109 mmol/L (98-107) H 10/01/19 06:13 Carbon Dioxide 19 mmol/L (21-32) L 10/01/19 06:13 Anion Gap 10 MMOL/L (8-16) 10/01/19 06:13 BUN 40.8 mg/dL (7-18) H 10/01/19 06:13 Creatinine 8.8 mg/dL (0.55-1.3) H* 10/01/19 06:13 Random Glucose 97 mg/dL (74-106) 10/01/19 06:13 Calcium 8.3 mg/dL (8.5-10.1) L 10/01/19 06:13 Total Bilirubin 0.3 mg/dL (0.2-1) 09/30/19 13:30 AST 18 U/L (15-37) 09/30/19 13:30 ALT 20 U/L (13-61) 09/30/19 13:30 Alkaline Phosphatase 81 U/L (45-117) 09/30/19 13:30 Total Protein 7.0 g/dl (6.4-8.2) 09/30/19 13:30 Albumin 3.2 g/dl (3.4-5.0) L 09/30/19 13:30 CARDIAC ENZYMES Creatine Kinase 91 U/L (26-192) 09/30/19 13:30 Troponin I < 0.02 ng/ml (0.00-0.05) 09/30/19 13:30 Plan The patient is an 84 year old female, with a significant past medical history of htn, esrd (on hd m,w last session 09/23 for approx. 1.5 months), diabetes, anemia, anxiety, pvd, oa, 64 pack-year smoker, who presented to the emergency department secondary to missing dialysis. As per patient, she missed her dialysis session 4 days prior to day of admission on Monday (09/25) secondary to panic attacks (patient ran out of her anxiety medications). Patient was evaluated twice (09/27, 09/29) for weakness and anxiety. Upon patients initial presentation 09/27 she was given a prescription for Xanax but , was unable to fill the prescription secondary to it being the weekend thus she reported to the ED on day prior to admission. Patient presented to the ED today secondary to tremors and the inability to walk since the morning. She noted to have been without her Xanax 0.25 (takes BID) for the past 4 days. She c /o slurred speech and unsteadiness on her feet on day of admission. She reported that she was in the hospital on day before admission because she felt unwell and was dc to home (she lives alone/no DEALMAKER). On day of admission, she attempted to call her neighbor (time unclear) and she noticed her speech was slurring (subjective slurring). She then attempted to get out of bed (walks with walker) and was unsteady on her feet. She normally walks with a walker. She denied PARR, vision change, and numbness/tingling. This has never happened before. She has not fallen. She did not hit her head. She never lost consciousness. NIHSS 1 for saying the month is August and not September. Ct of head performed and showed no acute intracranial pathology. Generalized volume loss with moderate ventricular dilatation and extensive periventricular chronic microvascular ischemic changes. Left posterior calcified mass/meningioma without significant interval change in comparison to prior CT on 09/26/2018. Neurologically, patient without deficits and on admission there was concern for CVA which does not appear to be the case. Patient without focal deficits, normal speech, mental status at baseline. Patient for HD and this would be of benefit for clearing toxins, metabolites. Recommend monitoring anxiety which also precipitate subsequent episodes. She does complain of muscle spasms and which she described as shaking. I did not visualize any involuntary movements but we discussed trial of cyclobenzaprine 5 mg twice a day in hopes that this will provide some relief. Xanax adjustment may also be considered, would defer to psychiatry her primary care provider. Neurologically otherwise stable at this time. Monitor blood pressure, maintain normotensive range. L posterior meningioma not likely etiology to her complaints and chronic, does not require acute intervention.
--- NOTE | 2019-10-02 09:47 | PN ---
Progress Note, Physician History of Present Illness: Pt w/o motor or sensory deficit except motor weakness in LE so cannot walk. Pt w/o fever, SOB, CP, palpitations, dizziness, abd pain, nausea, vomiting, diarrhea. - Current Medication List Current Medications: Active Medications Acetaminophen (Tylenol -) 650 mg PO Q6H PRN PRN Reason: FEVER Alprazolam (Xanax -) 0.25 mg PO Q8H PRN PRN Reason: ANXIETY Last Admin: 10/01/19 22:09 Dose: 0.25 mg Amitriptyline HCl (Elavil -) 50 mg PO HS [facility] Last Admin: 10/01/19 22:57 Dose: 50 mg Aspirin (Asa -) 81 mg PO DAILY [facility] Last Admin: 10/01/19 09:23 Dose: 81 mg Atorvastatin Calcium (Lipitor -) 80 mg PO HS [facility] Last Admin: 10/01/19 22:09 Dose: 80 mg Bacitracin (Bacitracin -) 1 applic TP DAILY [facility] Last Admin: 10/01/19 11:01 Dose: 1 applic Calcitriol (Rocaltrol -) 0.25 mcg PO DAILY [facility] Last Admin: 10/01/19 09:22 Dose: 0.25 mcg Calcium Acetate (Phoslo -) 667 mg PO TIDCM [facility] Last Admin: 10/01/19 18:11 Dose: 667 mg Carvedilol (Coreg -) 6.25 mg PO BID [facility] Last Admin: 10/01/19 22:09 Dose: 6.25 mg Cholestyramine Resin (Questran Light Packet -) 4 gm PO BID [facility] Last Admin: 10/01/19 22:09 Dose: 4 gm Clopidogrel Bisulfate (Plavix -) 75 mg PO DAILY [facility] Last Admin: 10/01/19 09:22 Dose: 75 mg Cyclobenzaprine HCl (Cyclobenzaprine Hcl) 5 mg PO BID [facility] Ferrous Sulfate (Feosol -) 325 mg PO BID [facility] Last Admin: 10/01/19 22:09 Dose: 325 mg Sodium Chloride (Normal Saline -) 250 mls @ 3,000 mls/hr IV PRN PRN PRN Reason: Hypotension during Dialysis Stop: 10/02/19 13:02 Isosorbide Mononitrate (Imdur -) 30 mg PO DAILY [facility] Last Admin: 10/01/19 09:23 Dose: 30 mg Losartan Potassium (Cozaar -) 100 mg PO DAILY [facility] Last Admin: 10/01/19 09:25 Dose: 100 mg Nifedipine (Procardia Xl -) 120 mg PO DAILY [facility] Last Admin: 10/01/19 09:24 Dose: 120 mg Ondansetron HCl (Zofran -) 4 mg PO BID PRN PRN Reason: NAUSEA AND/OR VOMITING Sodium Zirconium Cyclosilicate (Lokelma) 10 gm PO DAILY [facility] Last Admin: 10/01/19 09:31 Dose: 10 gm - Objective Vital Signs: Vital Signs Temperature 98.7 F 10/01/19 18:00 Pulse Rate 69 10/02/19 05:13 Respiratory Rate 15 10/02/19 05:13 Blood Pressure 147/54 L 10/02/19 05:13 O2 Sat by Pulse Oximetry (%) 98 10/01/19 19:15 Constitutional: Yes: No Distress, Calm Eyes: Yes: Conjunctiva Clear, EOM Intact Cardiovascular: Yes: Regular Rate and Rhythm, S1, S2 Respiratory: Yes: Regular, CTA Bilaterally. No: Rales Gastrointestinal: Yes: Normal Bowel Sounds, Soft. No: Hepatomegaly, Tenderness Edema: No Neurological: Yes: Alert, Oriented, Other (motor and sensory examination is symmetric in UE/ LE/face.) Labs: CBC, BMP 09/30/19 13:30 10/01/19 06:13 Problem List - Problems (1) TIA (transient ischemic attack) Code(s): G45.9 - TRANSIENT CEREBRAL ISCHEMIC ATTACK, UNSPECIFIED (2) Anxiety Code(s): F41.9 - ANXIETY DISORDER, UNSPECIFIED (3) Hypertension Code(s): I10 - ESSENTIAL (PRIMARY) HYPERTENSION (4) ESRD (end stage renal disease) on dialysis Code(s): N18.6 - END STAGE RENAL DISEASE; Z99.2 - DEPENDENCE ON RENAL DIALYSIS (5) CAD (coronary artery disease) Code(s): I25.10 - ATHSCL HEART DISEASE OF [place] CORONARY ARTERY W/O ANG PCTRS Qualifiers: Coronary Disease-Associated Artery/Lesion type: [place] artery [place] vs. transplanted heart: [place] heart Associated angina: without angina Qualified Code(s): I25.10 - Atherosclerotic heart disease of [place] coronary artery without angina pectoris (6) Diabetes mellitus Code(s): E11.9 - TYPE 2 DIABETES MELLITUS WITHOUT COMPLICATIONS Qualifiers: Diabetes mellitus type: type 2 Diabetes mellitus complication status: with kidney complications Diabetes mellitus complication detail: with chronic kidney disease Chronic kidney disease stage: on chronic dialysis Assessment/Plan Neuro and Renal consults are appreciated. S/p HD To f/u with PT if pt can walk. Dr. Strauss doesn't provide inpatient Psychiatry consult; pt is refunsing Dr Collier. Xanax was increased to TID. To f/u in AM
[2019-10-02] MEDS ORDERED: PT OWN MED DRAWER 7, Y5N ONE (10:00)
[2019-10-02] MEDS: SODIUM ZIRCONIUM CYCLOSILICATE (LOKELMA) 5 GM PACKET PO SCH ×2 (10:06→11:26)
[2019-10-02] MEDS: CALCIUM ACETATE 667 MG CAPSULE (FP) PO SCH ×3 (10:09→17:41)
[2019-10-02] MEDS: ASPIRIN 81 MG CHEWABLE TABLETS PO SCH (10:10)
[2019-10-02] MEDS: CALCITRIOL 0.25 MCG CAPSULE (FP) PO SCH (10:10)
[2019-10-02] MEDS: CLOPIDOGREL BISULFATE 75 MG TABLET (FP) PO SCH (10:10)
[2019-10-02] MEDS: CARVEDILOL 6.25 MG TABLET (FP) PO SCH ×2 (10:10→22:48)
[2019-10-02] MEDS: FERROUS SO4 325 MG TABLET (FP) PO SCH ×2 (10:10→22:49)
[2019-10-02] MEDS: ISOSORBIDE MONONITRATE 30 MG TAB.SR.24H (FP) PO SCH (10:10)
[2019-10-02] MEDS: CHOLESTYRAMINE/ASPARTAME 4 GM PACKET PO SCH ×3 (10:11→22:49)
[2019-10-02] MEDS: NIFEdipine E.R 60 MG TABLET PO SCH (10:11)
[2019-10-02] MEDS: LOSARTAN POTASSIUM 50 MG TABLET (FP) PO SCH (10:12)
[2019-10-02] MEDS: CYCLOBENZAPRINE HCL 5 MG TABLET PO SCH ×2 (10:12→22:49)
[2019-10-02] MEDS: ALPRAZolam 0.25 MG TABLET PO PRN ×2 (11:25→22:57)
[2019-10-02] MEDS: BACITRACIN 15 GM TUBE TOPICAL OINTMENT TP SCH (11:25)
--- NOTE | 2019-10-02 13:22 | EKG ---
Test Reason : Blood Pressure : / mmHG Vent. Rate : 085 BPM Atrial Rate : 085 BPM P-R Int : 106 ms QRS Dur : 092 ms QT Int : 380 ms P-R-T Axes : 005 058 -79 degrees QTc Int : 452 ms SINUS RHYTHM WITH SHORT MN T WAVE ABNORMALITY, CONSIDER INFERIOR ISCHEMIA T WAVE ABNORMALITY, CONSIDER ANTEROLATERAL ISCHEMIA ABNORMAL ECG WHEN COMPARED WITH ECG OF 27-SEP-2019 11:00, [place] INTERVAL HAS DECREASED Confirmed by MD Olaf, Ross ([id number]) on 10/02/2019 1:22:40 PM Referred By: Confirmed By:Ross Babin MD
--- NOTE | 2019-10-02 14:20 | PN ---
Progress Note (short form) - Note Progress Note: Renal follow up for ESRD on HD Seen and examined at the bedside chart reviewed, has periods of confusion last night awake and alert now, cannot recall acuretly events of last night has no acute complaints denies any sob, cp, fever, chills, N/V/D, abd pain, PARR, leg swelling, blurry vision Vital Signs Temperature 98.1 F 10/02/19 13:54 Pulse Rate 74 10/02/19 13:54 Respiratory Rate 18 10/02/19 13:54 Blood Pressure 183/69 H 10/02/19 09:00 O2 Sat by Pulse Oximetry (%) 98 10/01/19 19:15 Intake & Output 09/29/19 09/30/19 10/01/19 10/02/19 23:59 23:59 23:59 23:59 Intake Total 400 Output Total 1900 Balance -1500 Weight 50.802 kg 50.802 kg NAD awake and alert MMM neck supple, no JVD CTA, no rales or wheeze soft NT/ND no LE edema tunneled HD catheter in place CBC, BMP 09/30/19 13:30 10/01/19 06:13 Current Medications Acetaminophen (Tylenol -) 650 mg PO Q6H PRN PRN Reason: FEVER Alprazolam (Xanax -) 0.25 mg PO Q8H PRN PRN Reason: ANXIETY Last Admin: 10/02/19 11:25 Dose: 0.25 mg Amitriptyline HCl (Elavil -) 50 mg PO HS [facility] Last Admin: 10/01/19 22:57 Dose: 50 mg Aspirin (Asa -) 81 mg PO DAILY [facility] Last Admin: 10/02/19 10:10 Dose: 81 mg Atorvastatin Calcium (Lipitor -) 80 mg PO HS [facility] Last Admin: 10/01/19 22:09 Dose: 80 mg Bacitracin (Bacitracin -) 1 applic TP DAILY [facility] Last Admin: 10/02/19 11:25 Dose: 1 applic Calcitriol (Rocaltrol -) 0.25 mcg PO DAILY [facility] Last Admin: 10/02/19 10:10 Dose: 0.25 mcg Calcium Acetate (Phoslo -) 667 mg PO TIDCM [facility] Last Admin: 10/02/19 12:30 Dose: 667 mg Carvedilol (Coreg -) 6.25 mg PO BID [facility] Last Admin: 10/02/19 10:10 Dose: 6.25 mg Cholestyramine Resin (Questran Light Packet -) 4 gm PO BID [facility] Last Admin: 10/02/19 10:18 Dose: Not Given Clopidogrel Bisulfate (Plavix -) 75 mg PO DAILY [facility] Last Admin: 10/02/19 10:10 Dose: 75 mg Cyclobenzaprine HCl (Cyclobenzaprine Hcl) 5 mg PO BID [facility] Last Admin: 10/02/19 10:12 Dose: 5 mg Ferrous Sulfate (Feosol -) 325 mg PO BID [facility] Last Admin: 10/02/19 10:10 Dose: 325 mg Isosorbide Mononitrate (Imdur -) 30 mg PO DAILY [facility] Last Admin: 10/02/19 10:10 Dose: 30 mg Losartan Potassium (Cozaar -) 100 mg PO DAILY [facility] Last Admin: 10/02/19 10:12 Dose: 100 mg Nifedipine (Procardia Xl -) 120 mg PO DAILY [facility] Last Admin: 10/02/19 10:11 Dose: 120 mg Ondansetron HCl (Zofran -) 4 mg PO BID PRN PRN Reason: NAUSEA AND/OR VOMITING Sodium Zirconium Cyclosilicate (Lokelma) 10 gm PO DAILY [facility] Last Admin: 10/01/19 09:31 Dose: 10 gm 84 year old woman with history of ESRD no HD, current smoker, DM, hypertension who presented from home with weakness and tremors and having missed dialysis. 1. ESRD on HD with missed dialysis 2. Tremors/Weakness w/o evidence of CVA 3. Hypertension 4. DM 5. Anxiety 6. CKD related Anemia 7. Confusion No acute indication for dialysis today. Next planned session of dialysis is Monday. Continue Lokelma on non-dialysis days. continue work up as per neurology/primary continue present antihypertensive medications. Hgb at goal Thank you Quentin Goyal DO
[2019-10-02] MEDS: ATORVASTATIN CA 80 MG TABLET (FP) PO SCH (22:49)
[2019-10-02] MEDS: AMITRIPTYLINE HCL 25 MG TABLET PO SCH (22:49)
[2019-10-03 06:42] LABS: BLOOD UREA NITROGEN 26.1 mg/dL (7-18); CALCIUM 7.7 mg/dL (8.5-10.1); CREATININE 5.9 mg/dL (0.55-1.3); POTASSIUM 3.9 mmol/L (3.5-5.1)
--- NOTE | 2019-10-03 08:28 | PN ---
Progress Note (short form) - Note Progress Note: Neurology History of Present Illness - General Chief Complaint: Tremors Primary Care Physician: Dr. Flores FABIAN The patient is an 84 year old female, with a significant past medical history of htn, esrd (on hd m,w last session 09/23 for approx. 1.5 months), diabetes, anemia, anxiety, pvd, oa, 64 pack-year smoker, who presented to the emergency department secondary to missing dialysis. As per patient, she missed her dialysis session 4 days prior to day of admission on Monday (09/25) secondary to panic attacks (patient ran out of her anxiety medications). Patient was evaluated twice (09/27, 09/29) for weakness and anxiety. Upon patients initial presentation 09/27 she was given a prescription for Xanax but , was unable to fill the prescription secondary to it being the weekend thus she reported to the ED on day prior to admission. Patient presented to the ED today secondary to tremors and the inability to walk since the morning. She noted to have been without her Xanax 0.25 (takes BID) for the past 4 days. She c /o slurred speech and unsteadiness on her feet on day of admission. She reported that she was in the hospital on day before admission because she felt unwell and was dc to home (she lives alone/no ELEMENTARY EDUCATOR). On day of admission, she attempted to call her neighbor (time unclear) and she noticed her speech was slurring (subjective slurring). She then attempted to get out of bed (walks with walker) and was unsteady on her feet. She normally walks with a walker. She denied PARR, vision change, and numbness/tingling. This has never happened before. She has not fallen. She did not hit her head. She never lost consciousness. NIHSS 1 for saying the month is August and not September. Ct of head performed and showed no acute intracranial pathology. Generalized volume loss with moderate ventricular dilatation and extensive periventricular chronic microvascular ischemic changes. Left posterior calcified mass/meningioma without significant interval change in comparison to prior CT on 09/26/2018. Neurologically, patient without deficits and on admission there was concern for CVA which does not appear to be the case. Patient without focal deficits, normal speech, mental status at baseline. She does complain of muscle spasms and which she described as shaking. I did not visualize any involuntary movements but we discussed trial of cyclobenzaprine 5 mg twice a day in hopes that this will provide some relief, which was initiated but the patient was unsure if she receives the medication. I did not visualize any shaking but she reports its more noticeable when she is ambulating. Informed her that cyclobenzaprine can take a week orso to see a significant difference. Xanax adjustment may also be considered, would defer to psychiatry her primary care provider. Active Medications Acetaminophen (Tylenol -) 650 mg PO Q6H PRN PRN Reason: FEVER Alprazolam (Xanax -) 0.25 mg PO Q8H PRN PRN Reason: ANXIETY Last Admin: 10/02/19 22:57 Dose: 0.25 mg Amitriptyline HCl (Elavil -) 50 mg PO HS [facility] Last Admin: 10/02/19 22:49 Dose: 50 mg Aspirin (Asa -) 81 mg PO DAILY [facility] Last Admin: 10/02/19 10:10 Dose: 81 mg Atorvastatin Calcium (Lipitor -) 80 mg PO [facility] Last Admin: 10/02/19 22:49 Dose: 80 mg Bacitracin (Bacitracin -) 1 applic TP DAILY [facility] Last Admin: 10/02/19 11:25 Dose: 1 applic Calcitriol (Rocaltrol -) 0.25 mcg PO DAILY [facility] Last Admin: 10/02/19 10:10 Dose: 0.25 mcg Calcium Acetate (Phoslo -) 667 mg PO TIDCM [facility] Last Admin: 10/02/19 17:41 Dose: 667 mg Carvedilol (Coreg -) 6.25 mg PO BID [facility] Last Admin: 10/02/19 22:48 Dose: 6.25 mg Cholestyramine Resin (Questran Light Packet -) 4 gm PO BID [facility] Last Admin: 10/02/19 22:49 Dose: Not Given Clopidogrel Bisulfate (Plavix -) 75 mg PO DAILY [facility] Last Admin: 10/02/19 10:10 Dose: 75 mg Cyclobenzaprine HCl (Cyclobenzaprine Hcl) 5 mg PO BID [facility] Last Admin: 10/02/19 22:49 Dose: 5 mg Ferrous Sulfate (Feosol -) 325 mg PO BID [facility] Last Admin: 10/02/19 22:49 Dose: 325 mg Isosorbide Mononitrate (Imdur -) 30 mg PO DAILY [facility] Last Admin: 10/02/19 10:10 Dose: 30 mg Losartan Potassium (Cozaar -) 100 mg PO DAILY [facility] Last Admin: 10/02/19 10:12 Dose: 100 mg Nifedipine (Procardia Xl -) 120 mg PO DAILY [facility] Last Admin: 10/02/19 10:11 Dose: 120 mg Ondansetron HCl (Zofran -) 4 mg PO BID PRN PRN Reason: NAUSEA AND/OR VOMITING Sodium Zirconium Cyclosilicate (Lokelma) 10 gm PO DAILY [facility] Last Admin: 10/02/19 10:06 Dose: 10 gm *Physical Exam - Vital Signs Vital Signs Period Temp Pulse Resp BP Sys/Banuelos Pulse Ox Last 24 Hr 98.0 F-98.9 F 72-79 15-73 101-183/57-99 98-98 GENERAL: AO x3 NAD , anxious HEAD: NCAT EYES: ЮЛИЯ, EOMI, sclera anicteric, conjunctiva clear. No ptosis. ENT: Ears normal, nares patent, oropharynx clear without exudates, dry mucous membranes. NECK: Trachea midline, full range of motion, supple. LUNGS: CTAB , no wheezes, no crackles, no accessory muscle use. HEART: RRR, S1, S2 without murmur, rub or gallop. ABDOMEN: Soft, nontender, nondistended, normoactive bowel sounds, no guarding, no rebound, no hepatosplenomegaly, no masses. EXTREMITIES: 2+ pulses, warm, well-perfused, no edema. NEUROLOGICAL: Cranial nerves II through XII grossly intact. Normal speech, gait not observed. FTN neg. Refused to participate in [id number]. No disdiadokinesia. Pt sat at edge of the bed and swang feet, then refused to participate in walking. 4/5 LUE distal flexor strength, otherwise 5/5 throughout in distal and prox felx/extensors. Gross sensation intact. NO RIGHT patellar reflex, 2+ LEFT patellar reflex, no brachial reflexes elicited. PSYCH: Normal mood, normal affect. SKIN: Warm, dry, normal turgor, no rashes or lesions noted CBCD WBC 5.6 K/mm3 (4.0-10.0) 09/30/19 13:30 RBC 3.34 M/mm3 (3.60-5.2) L 09/30/19 13:30 Hgb 10.6 GM/dL (10.7-15.3) L 09/30/19 13:30 Hct 33.0 % (32.4-45.2) 09/30/19 13:30 MCV 98.7 fl (80-96) H 09/30/19 13:30 MCHC 32.1 g/dl (32.0-36.0) 09/30/19 13:30 RDW 16.7 % (11.6-15.6) H 09/30/19 13:30 Plt Count 229 K/MM3 (134-434) 09/30/19 13:30 MPV 8.2 fl (7.5-11.1) 09/30/19 13:30 CMP Sodium 141 mmol/L (136-145) 10/03/19 05:20 Potassium 3.9 mmol/L (3.5-5.1) 10/03/19 05:20 Chloride 105 mmol/L (98-107) 10/03/19 05:20 Carbon Dioxide 27 mmol/L (21-32) 10/03/19 05:20 Anion Gap 9 MMOL/L (8-16) 10/03/19 05:20 BUN 26.1 mg/dL (7-18) H 10/03/19 05:20 Creatinine 5.9 mg/dL (0.55-1.3) H 10/03/19 05:20 Random Glucose 85 mg/dL (74-106) 10/03/19 05:20 Calcium 7.7 mg/dL (8.5-10.1) L 10/03/19 05:20 Total Bilirubin 0.3 mg/dL (0.2-1) 09/30/19 13:30 AST 18 U/L (15-37) 09/30/19 13:30 ALT 20 U/L (13-61) 09/30/19 13:30 Alkaline Phosphatase 81 U/L (45-117) 09/30/19 13:30 Total Protein 7.0 g/dl (6.4-8.2) 09/30/19 13:30 Albumin 3.2 g/dl (3.4-5.0) L 09/30/19 13:30 CARDIAC ENZYMES Creatine Kinase 91 U/L (26-192) 09/30/19 13:30 Troponin I < 0.02 ng/ml (0.00-0.05) 09/30/19 13:30 Plan The patient is an 84 year old female, with a significant past medical history of htn, esrd (on hd m,w last session 09/23 for approx. 1.5 months), diabetes, anemia, anxiety, pvd, oa, 64 pack-year smoker, who presented to the emergency department secondary to missing dialysis. As per patient, she missed her dialysis session 4 days prior to day of admission on Monday (09/25) secondary to panic attacks (patient ran out of her anxiety medications). Patient was evaluated twice (09/27, 09/29) for weakness and anxiety. Upon patients initial presentation 09/27 she was given a prescription for Xanax but , was unable to fill the prescription secondary to it being the weekend thus she reported to the ED on day prior to admission. Patient presented to the ED today secondary to tremors and the inability to walk since the morning. She noted to have been without her Xanax 0.25 (takes BID) for the past 4 days. She c /o slurred speech and unsteadiness on her feet on day of admission. She reported that she was in the hospital on day before admission because she felt unwell and was dc to home (she lives alone/no ELEMENTARY EDUCATOR). On day of admission, she attempted to call her neighbor (time unclear) and she noticed her speech was slurring (subjective slurring). She then attempted to get out of bed (walks with walker) and was unsteady on her feet. She normally walks with a walker. She denied PARR, vision change, and numbness/tingling. This has never happened before. She has not fallen. She did not hit her head. She never lost consciousness. NIHSS 1 for saying the month is August and not September. Ct of head performed and showed no acute intracranial pathology. Generalized volume loss with moderate ventricular dilatation and extensive periventricular chronic microvascular ischemic changes. Left posterior calcified mass/meningioma without significant interval change in comparison to prior CT on 09/26/2018. Neurologically, patient without deficits and on admission there was concern for CVA which does not appear to be the case. Patient without focal deficits, normal speech, mental status at baseline. Patient for HD and this would be of benefit for clearing toxins, metabolites. Recommend monitoring anxiety which also precipitate subsequent episodes. She does complain of muscle spasms and which she described as shaking. I did not visualize any involuntary movements but we discussed trial of cyclobenzaprine 5 mg twice a day in hopes that this will provide some relief, patient unsure if she is receiving the medication, I confirm that it was ordered. May take a week or more for significant therapeutic benefit. Xanax adjustment may also be considered, would defer to psychiatry her primary care provider. Neurologically otherwise stable at this time. Monitor blood pressure, maintain normotensive range. L posterior meningioma not likely etiology to her complaints and chronic, does not require acute intervention.
[2019-10-03] MEDS: FERROUS SO4 325 MG TABLET (FP) PO SCH ×2 (09:46→21:59)
[2019-10-03] MEDS: CLOPIDOGREL BISULFATE 75 MG TABLET (FP) PO SCH (09:46)
[2019-10-03] MEDS: ASPIRIN 81 MG CHEWABLE TABLETS PO SCH (09:46)
[2019-10-03] MEDS: CARVEDILOL 6.25 MG TABLET (FP) PO SCH (09:47)
[2019-10-03] MEDS: LOSARTAN POTASSIUM 50 MG TABLET (FP) PO SCH (09:47)
[2019-10-03] MEDS: ISOSORBIDE MONONITRATE 30 MG TAB.SR.24H (FP) PO SCH (09:47)
[2019-10-03] MEDS: CALCIUM ACETATE 667 MG CAPSULE (FP) PO SCH ×3 (09:47→16:43)
[2019-10-03] MEDS: CALCITRIOL 0.25 MCG CAPSULE (FP) PO SCH (09:47)
[2019-10-03] MEDS: BACITRACIN 15 GM TUBE TOPICAL OINTMENT TP SCH (09:48)
[2019-10-03] MEDS: NIFEdipine E.R 60 MG TABLET PO SCH (09:50)
[2019-10-03] MEDS: CHOLESTYRAMINE/ASPARTAME 4 GM PACKET PO SCH ×2 (10:21→22:06)
[2019-10-03] MEDS: CYCLOBENZAPRINE HCL 5 MG TABLET PO SCH ×2 (10:22→22:16)
[2019-10-03] MEDS: ALPRAZolam 0.25 MG TABLET PO PRN ×2 (10:22→16:43)
[2019-10-03] MEDS ORDERED: PT OWN MED DRAWER 7, Y5N ONE ×3 (13:00→13:11)
[2019-10-03] MEDS: SODIUM ZIRCONIUM CYCLOSILICATE (LOKELMA) 5 GM PACKET PO SCH (13:08)
--- NOTE | 2019-10-03 14:34 | PN ---
Progress Note (short form) - Note Progress Note: Renal follow up for ESRD on HD Seen and examined at the bedside pt is anxious and upset about the timing of her medications she only took her AM medications about 1 hour ago as she refused when the nurse first offered it denies any PARR, blurry vision, cp, sob, fever, chills, N/V/D Vital Signs Temperature 98 F 10/03/19 13:00 Pulse Rate 84 10/03/19 13:00 Respiratory Rate 16 10/03/19 13:00 Blood Pressure 183/86 H 10/03/19 09:00 O2 Sat by Pulse Oximetry (%) 98 10/02/19 23:17 Intake & Output 09/30/19 10/01/19 10/02/19 10/03/19 23:59 23:59 23:59 23:59 Intake Total 400 350 250 Output Total 1900 0 Balance -1500 350 250 Weight 50.802 kg 50.802 kg 49.895 kg 50.757 kg NAD awake and alert MMM neck supple, no JVD CTA, no rales or wheeze soft NT/ND no LE edema tunneled HD catheter in place CBC, BMP 09/30/19 13:30 10/03/19 05:20 Current Medications Acetaminophen (Tylenol -) 650 mg PO Q6H PRN PRN Reason: FEVER Alprazolam (Xanax -) 0.25 mg PO Q8H PRN PRN Reason: ANXIETY Last Admin: 10/03/19 10:22 Dose: 0.25 mg Amitriptyline HCl (Elavil -) 50 mg PO HS [facility] Last Admin: 10/02/19 22:49 Dose: 50 mg Aspirin (Asa -) 81 mg PO DAILY [facility] Last Admin: 10/03/19 09:46 Dose: 81 mg Atorvastatin Calcium (Lipitor -) 80 mg PO HS [facility] Last Admin: 10/02/19 22:49 Dose: 80 mg Bacitracin (Bacitracin -) 1 applic TP DAILY [facility] Last Admin: 10/03/19 09:48 Dose: 1 applic Calcitriol (Rocaltrol -) 0.25 mcg PO DAILY [facility] Last Admin: 10/03/19 09:47 Dose: 0.25 mcg Calcium Acetate (Phoslo -) 667 mg PO TIDCM [facility] Last Admin: 02/13/20 09:47 Dose: 667 mg Cholestyramine Resin (Questran Light Packet -) 4 gm PO BID [facility] Last Admin: 10/03/19 10:21 Dose: Not Given Clopidogrel Bisulfate (Plavix -) 75 mg PO DAILY [facility] Last Admin: 10/03/19 09:46 Dose: 75 mg Cyclobenzaprine HCl (Cyclobenzaprine Hcl) 5 mg PO BID [facility] Last Admin: 10/03/19 10:22 Dose: 5 mg Ferrous Sulfate (Feosol -) 325 mg PO BID [facility] Last Admin: 10/03/19 09:46 Dose: 325 mg Hydralazine HCl (Apresoline -) 50 mg PO TID [facility] Isosorbide Mononitrate (Imdur -) 30 mg PO DAILY [facility] Last Admin: 10/03/19 09:47 Dose: 30 mg Labetalol HCl (Normodyne -) 200 mg PO TID [facility] Losartan Potassium (Cozaar -) 100 mg PO DAILY [facility] Last Admin: 10/03/19 09:47 Dose: 100 mg Nifedipine (Procardia Xl -) 120 mg PO DAILY [facility] Last Admin: 10/03/19 09:50 Dose: 120 mg Ondansetron HCl (Zofran -) 4 mg PO BID PRN PRN Reason: NAUSEA AND/OR VOMITING Sodium Zirconium Cyclosilicate (Lokelma) 10 gm PO DAILY [facility] Last Admin: 10/03/19 13:08 Dose: 10 gm 84 year old woman with history of ESRD no HD, current smoker, DM, hypertension who presented from home with weakness and tremors and having missed dialysis. 1. ESRD on HD with missed dialysis 2. Tremors/Weakness w/o evidence of CVA 3. Hypertension 4. DM 5. Anxiety 6. CKD related Anemia 7. Confusion No acute indication for dialysis today. Next planned session of dialysis is Monday. Continue Lokelma on non-dialysis days. Addted Labetalol Q8h and Hydralzine Q8h for additional BP control Continue Losartan, Nifedpine. d/c Coreg, pt does not have HF Hgb at goal Thank you Quentin Goyal DO
[2019-10-03] MEDS: hydrALAZINE HCL 25 MG TABLET (FP) PO SCH ×2 (16:02→21:59)
[2019-10-03] MEDS: LABETALOL HCL 100 MG TABLET (FP) PO SCH ×2 (16:02→22:06)
--- NOTE | 2019-10-03 19:15 | PN ---
Progress Note, Physician History of Present Illness: Pt w/o motor or sensory deficit. Pt walked today with help of PT; pt states that it was hard, afraid of falling. Pt w/o fever, SOB, CP, palpitations, dizziness, abd pain, nausea, vomiting, diarrhea. - Current Medication List Current Medications: Active Medications Acetaminophen (Tylenol -) 650 mg PO Q6H PRN PRN Reason: FEVER Alprazolam (Xanax -) 0.25 mg PO Q8H PRN PRN Reason: ANXIETY Last Admin: 10/03/19 16:43 Dose: 0.25 mg Amitriptyline HCl (Elavil -) 50 mg PO [facility] Last Admin: 10/02/19 22:49 Dose: 50 mg Aspirin (Asa -) 81 mg PO DAILY [facility] Last Admin: 10/03/19 09:46 Dose: 81 mg Atorvastatin Calcium (Lipitor -) 80 mg PO [facility] Last Admin: 10/02/19 22:49 Dose: 80 mg Bacitracin (Bacitracin -) 1 applic TP DAILY [facility] Last Admin: 10/03/19 09:48 Dose: 1 applic Calcitriol (Rocaltrol -) 0.25 mcg PO DAILY [facility] Last Admin: 10/03/19 09:47 Dose: 0.25 mcg Calcium Acetate (Phoslo -) 667 mg PO TIDCM [facility] Last Admin: 10/03/19 16:43 Dose: 667 mg Cholestyramine Resin (Questran Light Packet -) 4 gm PO BID [facility] Last Admin: 10/03/19 10:21 Dose: Not Given Clopidogrel Bisulfate (Plavix -) 75 mg PO DAILY [facility] Last Admin: 10/03/19 09:46 Dose: 75 mg Cyclobenzaprine HCl (Cyclobenzaprine Hcl) 5 mg PO BID [facility] Last Admin: 10/03/19 10:22 Dose: 5 mg Ferrous Sulfate (Feosol -) 325 mg PO BID [facility] Last Admin: 10/03/19 09:46 Dose: 325 mg Hydralazine HCl (Apresoline -) 50 mg PO TID [facility] Last Admin: 10/03/19 16:02 Dose: Not Given Isosorbide Mononitrate (Imdur -) 30 mg PO DAILY [facility] Last Admin: 10/03/19 09:47 Dose: 30 mg Labetalol HCl (Normodyne -) 200 mg PO TID [facility] Last Admin: 10/03/19 16:02 Dose: Not Given Losartan Potassium (Cozaar -) 100 mg PO DAILY [facility] Last Admin: 10/03/19 09:47 Dose: 100 mg Nifedipine (Procardia Xl -) 120 mg PO DAILY [facility] Last Admin: 10/03/19 09:50 Dose: 120 mg Ondansetron HCl (Zofran -) 4 mg PO BID PRN PRN Reason: NAUSEA AND/OR VOMITING Sodium Zirconium Cyclosilicate (Lokelma) 10 gm PO DAILY [facility] Last Admin: 10/03/19 13:08 Dose: 10 gm - Objective Vital Signs: Vital Signs Temperature 98.2 F 10/03/19 18:00 Pulse Rate 68 10/03/19 18:00 Respiratory Rate 15 10/03/19 18:00 Blood Pressure 117/42 L 10/03/19 18:00 O2 Sat by Pulse Oximetry (%) 98 10/03/19 15:00 Constitutional: Yes: No Distress, Calm Cardiovascular: Yes: Regular Rate and Rhythm, S1, S2 Respiratory: Yes: Regular, CTA Bilaterally. No: Rales Gastrointestinal: Yes: Normal Bowel Sounds, Soft. No: Tenderness Edema: No Neurological: Yes: Alert, Oriented, Other (symmetric motor and sensory deficit.) Labs: CBC, BMP 09/30/19 13:30 10/03/19 05:20 Problem List - Problems (1) TIA (transient ischemic attack) Code(s): G45.9 - TRANSIENT CEREBRAL ISCHEMIC ATTACK, UNSPECIFIED (2) Anxiety Code(s): F41.9 - ANXIETY DISORDER, UNSPECIFIED (3) Hypertension Code(s): I10 - ESSENTIAL (PRIMARY) HYPERTENSION (4) ESRD (end stage renal disease) on dialysis Code(s): N18.6 - END STAGE RENAL DISEASE; Z99.2 - DEPENDENCE ON RENAL DIALYSIS (5) CAD (coronary artery disease) Code(s): I25.10 - ATHSCL HEART DISEASE OF [place] CORONARY ARTERY W/O ANG PCTRS Qualifiers: Coronary Disease-Associated Artery/Lesion type: [place] artery [place] vs. transplanted heart: [place] heart Associated angina: without angina Qualified Code(s): I25.10 - Atherosclerotic heart disease of [place] coronary artery without angina pectoris (6) Diabetes mellitus Code(s): E11.9 - TYPE 2 DIABETES MELLITUS WITHOUT COMPLICATIONS Qualifiers: Diabetes mellitus type: type 2 Diabetes mellitus complication status: with kidney complications Diabetes mellitus complication detail: with chronic kidney disease Chronic kidney disease stage: on chronic dialysis (7) Uncontrolled hypertension Assessment/Plan: Labetalol and Hydralazine were added. To monitor Code(s): I10 - ESSENTIAL (PRIMARY) HYPERTENSION (8) Unsteady gait Code(s): R26.81 - UNSTEADINESS ON FEET Assessment/Plan Neuro and Renal consults are appreciated. Labetalol and Hydralazine were added for better BP control. To monitor BP/ Xanax was increased to TID, PRN. To f/u with PT To f/u in AM
[2019-10-03] MEDS: ATORVASTATIN CA 80 MG TABLET (FP) PO SCH (21:59)
[2019-10-03] MEDS: AMITRIPTYLINE HCL 25 MG TABLET PO SCH (22:03)
[2019-10-04] MEDS: ALPRAZolam 0.25 MG TABLET PO PRN ×3 (00:46→21:21)
[2019-10-04] MEDS: LABETALOL HCL 100 MG TABLET (FP) PO SCH ×4 (05:39→21:23)
[2019-10-04] MEDS: hydrALAZINE HCL 25 MG TABLET (FP) PO SCH ×3 (05:40→21:22)
[2019-10-04] MEDS ORDERED: SODIUM CHLORIDE 250 ML IV PRN (08:41)
--- NOTE | 2019-10-04 08:51 | PN ---
Progress Note, Physician Chief Complaint: axox3 NAD VSS no new c/o; walked better with PT; seen by neurology; feels better - d/w pt DC planning home with VNS (pt does not qualify for SNF per CM) pt is very upset and she said she can not go home she lives alone and can not manage her ADL at home; pt was advised long time ago to apply for medicaid but she did not - d/w rn case mgr further plans to follow - Current Medication List Current Medications: Active Medications Acetaminophen (Tylenol -) 650 mg PO Q6H PRN PRN Reason: FEVER Alprazolam (Xanax -) 0.25 mg PO Q8H PRN PRN Reason: ANXIETY Last Admin: 10/04/19 00:46 Dose: 0.25 mg Amitriptyline HCl (Elavil -) 50 mg PO HS [facility] Last Admin: 10/03/19 22:03 Dose: 50 mg Aspirin (Asa -) 81 mg PO DAILY [facility] Last Admin: 10/03/19 09:46 Dose: 81 mg Atorvastatin Calcium (Lipitor -) 80 mg PO [facility] Last Admin: 10/03/19 21:59 Dose: 80 mg Bacitracin (Bacitracin -) 1 applic TP DAILY [facility] Last Admin: 10/03/19 09:48 Dose: 1 applic Calcitriol (Rocaltrol -) 0.25 mcg PO DAILY [facility] Last Admin: 10/03/19 09:47 Dose: 0.25 mcg Calcium Acetate (Phoslo -) 667 mg PO TIDCM [facility] Last Admin: 10/03/19 16:43 Dose: 667 mg Cholestyramine Resin (Questran Light Packet -) 4 gm PO BID [facility] Last Admin: 10/03/19 22:06 Dose: 4 gm Clopidogrel Bisulfate (Plavix -) 75 mg PO DAILY [facility] Last Admin: 10/03/19 09:46 Dose: 75 mg Cyclobenzaprine HCl (Cyclobenzaprine Hcl) 5 mg PO BID [facility] Last Admin: 10/03/19 22:16 Dose: 5 mg Ferrous Sulfate (Feosol -) 325 mg PO BID [facility] Last Admin: 10/03/19 21:59 Dose: 325 mg Heparin Sodium (Porcine) (Heparin -) 300 unit IVPUSH Q1H [facility] Stop: 10/04/19 11:46 Hydralazine HCl (Apresoline -) 50 mg PO TID [facility] Last Admin: 10/04/19 05:40 Dose: 50 mg Sodium Chloride (Normal Saline -) 250 mls @ 3,000 mls/hr IV PRN PRN PRN Reason: Hypotension during Dialysis Stop: 10/05/19 08:41 Isosorbide Mononitrate (Imdur -) 30 mg PO DAILY [facility] Last Admin: 10/03/19 09:47 Dose: 30 mg Labetalol HCl (Normodyne -) 200 mg PO TID [facility] Last Admin: 10/04/19 05:44 Dose: Not Given Losartan Potassium (Cozaar -) 100 mg PO DAILY [facility] Last Admin: 10/03/19 09:47 Dose: 100 mg Nifedipine (Procardia Xl -) 120 mg PO DAILY [facility] Last Admin: 10/03/19 09:50 Dose: 120 mg Ondansetron HCl (Zofran -) 4 mg PO BID PRN PRN Reason: NAUSEA AND/OR VOMITING Sodium Zirconium Cyclosilicate (Lokelma) 10 gm PO DAILY [facility] Last Admin: 10/03/19 13:08 Dose: 10 gm - Objective Vital Signs: Vital Signs Temperature 98.1 F 10/04/19 05:09 Pulse Rate 68 10/04/19 05:09 Respiratory Rate 17 10/04/19 06:56 Blood Pressure 150/61 10/04/19 05:09 O2 Sat by Pulse Oximetry (%) 98 10/04/19 06:56 Constitutional: Yes: No Distress, Calm Eyes: Yes: Conjunctiva Clear HENT: Yes: Atraumatic Neck: Yes: Supple Cardiovascular: No: Regular Rate and Rhythm Respiratory: Yes: Diminished Gastrointestinal: Yes: Soft. No: Tenderness Genitourinary: No: Hematuria Musculoskeletal: No: Joint Stiffness, Joint Swelling Extremities: No: Cold, Cool, Cyanosis Edema: No Integumentary: No: Rash, Venous Stasis Changes Neurological: Yes: Alert, Oriented ...Motor Strength: WNL Psychiatric: Yes: Alert, Oriented. No: Agitated, Suicidal Ideation Labs: CBC, BMP 09/30/19 13:30 10/03/19 05:20 - ....Imaging Other: Report Reviewed Assessment/Plan 84 YOF ASHD DM HTN PVD COPD CRF ESRD / HD smoker anxiety nonc/w meds consults and dialysis admitted after missed HD and inability to walk, cleared by neurology for DC d/w CM further plans to follow PT rehab'; HD per renal stop tob; cont meds as ordered; pt asked for xanax TID d/w pt risks and SE falls tolerance dependence - also d/w pt risks ms relaxant (falls) she is aware ; advised psychiatry eval for anxiety but pt refused falls decubs DVT pfx d/w pt and staff
[2019-10-04] MEDS ORDERED: PT OWN MED DRAWER 7, Y5N ONE (09:12)
[2019-10-04] MEDS: CYCLOBENZAPRINE HCL 5 MG TABLET PO SCH ×2 (09:41→21:22)
[2019-10-04] MEDS: FERROUS SO4 325 MG TABLET (FP) PO SCH ×2 (09:41→21:22)
[2019-10-04] MEDS: CLOPIDOGREL BISULFATE 75 MG TABLET (FP) PO SCH (09:41)
[2019-10-04] MEDS: CALCITRIOL 0.25 MCG CAPSULE (FP) PO SCH (09:41)
[2019-10-04] MEDS: CALCIUM ACETATE 667 MG CAPSULE (FP) PO SCH ×3 (09:41→18:12)
[2019-10-04] MEDS: ASPIRIN 81 MG CHEWABLE TABLETS PO SCH (09:41)
[2019-10-04] MEDS: ISOSORBIDE MONONITRATE 30 MG TAB.SR.24H (FP) PO SCH (09:41)
[2019-10-04] MEDS: BACITRACIN 15 GM TUBE TOPICAL OINTMENT TP SCH (09:42)
[2019-10-04] MEDS: CHOLESTYRAMINE/ASPARTAME 4 GM PACKET PO SCH ×2 (10:29→21:27)
[2019-10-04] MEDS: HEPARIN NA (PORCINE) 5,000 UNITS/ML 1ML VIAL IVPUSH SCH ×4 (10:38→12:50)
[2019-10-04 11:01] LABS: HEMATOCRIT 30.9 % (32.4-45.2); MCH 31.6 pg (25.7-33.7); MCHC 32.3 g/dl (32.0-36.0); MEAN CELL VOLUME 97.7 fl (80-96); MEAN PLT VOLUME 8.5 fl (7.5-11.1); PLATELET COUNT 239 K/MM3 (134-434); RBC 3.17 M/mm3 (3.60-5.2); RDW 15.5 % (11.6-15.6); WHITE BLOOD COUNT 4.4 K/mm3 (4.0-10.0)
[2019-10-04 11:31] LABS: BLOOD UREA NITROGEN 35.3 mg/dL (7-18); PHOSPHOROUS 5.9 mg/dL (2.5-4.9); POTASSIUM 4.3 mmol/L (3.5-5.1)
[2019-10-04 11:36] LABS: CREATININE 7.5 mg/dL (0.55-1.3)
--- NOTE | 2019-10-04 13:56 | PN ---
Progress Note (short form) - Note Progress Note: Renal follow up for ESRD on HD Seen and examined during dialysis awake and alert BP stable, goal UF is 1.5L catheter with good blood flow no sob, cp, fever, chills, N/V/D, cramping Vital Signs Temperature 98.1 F 10/04/19 12:53 Pulse Rate 65 10/04/19 13:47 Respiratory Rate 18 10/04/19 13:47 Blood Pressure 167/77 10/04/19 13:47 O2 Sat by Pulse Oximetry (%) 98 10/04/19 06:56 Intake & Output 10/01/19 10/02/19 10/03/19 10/04/19 23:59 23:59 23:59 23:59 Intake Total 959 987 4459 710 Output Total 1900 0 2400 Balance -2674 947 1294 -1690 Weight 50.802 kg 49.895 kg 50.757 kg 50.349 kg NAD awake and alert MMM neck supple, no JVD CTA, no rales or wheeze soft NT/ND no LE edema tunneled HD catheter in place CBC, BMP 10/04/19 10:00 10/04/19 10:00 Current Medications Acetaminophen (Tylenol -) 650 mg PO Q6H PRN PRN Reason: FEVER Alprazolam (Xanax -) 0.25 mg PO Q8H PRN PRN Reason: ANXIETY Last Admin: 10/04/19 10:28 Dose: 0.25 mg Amitriptyline HCl (Elavil -) 50 mg PO HS [facility] Last Admin: 10/03/19 22:03 Dose: 50 mg Aspirin (Asa -) 81 mg PO DAILY [facility] Last Admin: 10/04/19 09:41 Dose: 81 mg Atorvastatin Calcium (Lipitor -) 80 mg PO HS [facility] Last Admin: 10/03/19 21:59 Dose: 80 mg Bacitracin (Bacitracin -) 1 applic TP DAILY [facility] Last Admin: 10/04/19 09:42 Dose: 1 applic Calcitriol (Rocaltrol -) 0.25 mcg PO DAILY [facility] Last Admin: 10/04/19 09:41 Dose: 0.25 mcg Calcium Acetate (Phoslo -) 667 mg PO TIDCM [facility] Last Admin: 10/04/19 09:41 Dose: 667 mg Cholestyramine Resin (Questran Light Packet -) 4 gm PO BID [facility] Last Admin: 10/04/19 10:29 Dose: 4 gm Clopidogrel Bisulfate (Plavix -) 75 mg PO DAILY [facility] Last Admin: 10/04/19 09:41 Dose: 75 mg Cyclobenzaprine HCl (Cyclobenzaprine Hcl) 5 mg PO BID [facility] Last Admin: 10/04/19 09:41 Dose: 5 mg Ferrous Sulfate (Feosol -) 325 mg PO BID [facility] Last Admin: 10/04/19 09:41 Dose: 325 mg Hydralazine HCl (Apresoline -) 50 mg PO TID [facility] Last Admin: 10/04/19 05:40 Dose: 50 mg Sodium Chloride (Normal Saline -) 250 mls @ 3,000 mls/hr IV PRN PRN PRN Reason: Hypotension during Dialysis Stop: 10/05/19 08:41 Isosorbide Mononitrate (Imdur -) 30 mg PO DAILY [facility] Last Admin: 10/04/19 09:41 Dose: 30 mg Labetalol HCl (Normodyne -) 200 mg PO TID [facility] Last Admin: 10/04/19 05:44 Dose: Not Given Losartan Potassium (Cozaar -) 100 mg PO DAILY [facility] Last Admin: 10/03/19 09:47 Dose: 100 mg Nifedipine (Procardia Xl -) 120 mg PO DAILY [facility] Last Admin: 10/03/19 09:50 Dose: 120 mg Ondansetron HCl (Zofran -) 4 mg PO BID PRN PRN Reason: NAUSEA AND/OR VOMITING Sodium Zirconium Cyclosilicate (Lokelma) 10 gm PO DAILY [facility] Last Admin: 10/03/19 13:08 Dose: 10 gm 84 year old woman with history of ESRD no HD, current smoker, DM, hypertension who presented from home with weakness and tremors and having missed dialysis. 1. ESRD on HD with missed dialysis 2. Tremors/Weakness w/o evidence of CVA 3. Hypertension 4. DM 5. Anxiety 6. CKD related Anemia 7. Confusion Tolerating dialysis well this am. Renal diet, 1.2L fluid restriction Continue Lokelma on non-dialysis days. Continue hydralzine, labetalol, losartan and nifedipine for hypertension Hgb at goal discharge planning as per primary team Thank you Quentin Goyal DO
[2019-10-04] MEDS: LOSARTAN POTASSIUM 50 MG TABLET (FP) PO SCH (15:14)
[2019-10-04] MEDS: SODIUM ZIRCONIUM CYCLOSILICATE (LOKELMA) 5 GM PACKET PO SCH (15:14)
[2019-10-04] MEDS: NIFEdipine E.R 60 MG TABLET PO SCH (15:14)
[2019-10-04] MEDS: ATORVASTATIN CA 80 MG TABLET (FP) PO SCH (21:22)
[2019-10-04] MEDS: AMITRIPTYLINE HCL 25 MG TABLET PO SCH (21:27)
[2019-10-05] MEDS: hydrALAZINE HCL 25 MG TABLET (FP) PO SCH ×2 (05:25→14:37)
--- NOTE | 2019-10-05 06:18 | PN ---
Progress Note, Physician Chief Complaint: in bed awake alert NAD said she will go home Monday (in 2 days) she refused to go home over the weekend d/w CM aware - Current Medication List Current Medications: Active Medications Acetaminophen (Tylenol -) 650 mg PO Q6H PRN PRN Reason: FEVER Alprazolam (Xanax -) 0.25 mg PO Q8H PRN PRN Reason: ANXIETY Last Admin: 10/04/19 21:21 Dose: 0.25 mg Amitriptyline HCl (Elavil -) 50 mg PO HS [facility] Last Admin: 10/04/19 21:27 Dose: 50 mg Aspirin (Asa -) 81 mg PO DAILY [facility] Last Admin: 10/04/19 09:41 Dose: 81 mg Atorvastatin Calcium (Lipitor -) 80 mg PO HS [facility] Last Admin: 10/04/19 21:22 Dose: 80 mg Bacitracin (Bacitracin -) 1 applic TP DAILY [facility] Last Admin: 10/04/19 09:42 Dose: 1 applic Calcitriol (Rocaltrol -) 0.25 mcg PO DAILY [facility] Last Admin: 10/04/19 09:41 Dose: 0.25 mcg Calcium Acetate (Phoslo -) 667 mg PO TIDCM [facility] Last Admin: 10/04/19 18:12 Dose: 667 mg Cholestyramine Resin (Questran Light Packet -) 4 gm PO BID [facility] Last Admin: 10/04/19 21:27 Dose: 4 gm Clopidogrel Bisulfate (Plavix -) 75 mg PO DAILY [facility] Last Admin: 10/04/19 09:41 Dose: 75 mg Cyclobenzaprine HCl (Cyclobenzaprine Hcl) 5 mg PO BID [facility] Last Admin: 10/04/19 21:22 Dose: 5 mg Ferrous Sulfate (Feosol -) 325 mg PO BID [facility] Last Admin: 10/04/19 21:22 Dose: 325 mg Hydralazine HCl (Apresoline -) 50 mg PO TID [facility] Last Admin: 10/05/19 05:25 Dose: 50 mg Sodium Chloride (Normal Saline -) 250 mls @ 3,000 mls/hr IV PRN PRN PRN Reason: Hypotension during Dialysis Stop: 10/05/19 08:41 Isosorbide Mononitrate (Imdur -) 30 mg PO DAILY [facility] Last Admin: 02/14/20 09:41 Dose: 30 mg Labetalol HCl (Normodyne -) 200 mg PO BID [facility] Last Admin: 10/04/19 21:23 Dose: 200 mg Losartan Potassium (Cozaar -) 100 mg PO DAILY [facility] Last Admin: 10/04/19 15:14 Dose: Not Given Nifedipine (Procardia Xl -) 120 mg PO DAILY [facility] Last Admin: 10/04/19 15:14 Dose: Not Given Ondansetron HCl (Zofran -) 4 mg PO BID PRN PRN Reason: NAUSEA AND/OR VOMITING Last Admin: 10/04/19 13:39 Dose: 4 mg Sodium Zirconium Cyclosilicate (Lokelma) 10 gm PO DAILY [facility] Last Admin: 10/04/19 15:14 Dose: Not Given - Objective Vital Signs: Vital Signs Temperature 98.6 F 10/05/19 02:00 Pulse Rate 64 10/05/19 04:00 Respiratory Rate 18 10/05/19 04:00 Blood Pressure 141/54 L 10/05/19 04:00 O2 Sat by Pulse Oximetry (%) 98 10/04/19 20:00 Constitutional: Yes: No Distress Eyes: Yes: Conjunctiva Clear HENT: Yes: Atraumatic Neck: Yes: Supple Cardiovascular: Yes: Regular Rate and Rhythm Respiratory: Yes: CTA Bilaterally Gastrointestinal: Yes: Soft. No: Tenderness Genitourinary: No: Hematuria Musculoskeletal: No: Joint Stiffness, Joint Swelling Extremities: No: Cold, Cool, Cyanosis Edema: No Integumentary: No: Rash, Venous Stasis Changes Neurological: Yes: Alert, Oriented ...Motor Strength: WNL Psychiatric: Yes: Alert, Oriented. No: Agitated, Suicidal Ideation Labs: CBC, BMP 10/04/19 10:00 10/04/19 10:00 - ....Imaging Other: Report Reviewed Assessment/Plan 84 YOF ASHD DM HTN PVD COPD CRF ESRD / HD smoker anxiety nonc/w meds consults and dialysis admitted after missed HD and inability to walk, cleared by neurology for DC d/w CM further plans to follow PT rehab'; HD per renal stop tob; cont meds as ordered; pt asked for xanax TID d/w pt risks and SE falls tolerance dependence - also d/w pt risks ms relaxant (falls) she is aware ; advised psychiatry eval for anxiety but pt refused falls decubs DVT pfx d/w pt and staff
[2019-10-05] MEDS: CALCIUM ACETATE 667 MG CAPSULE (FP) PO SCH ×3 (09:00→17:12)
[2019-10-05] MEDS: NIFEdipine E.R 60 MG TABLET PO SCH (09:00)
[2019-10-05] MEDS ORDERED: PT OWN MED DRAWER 7, Y5N ONE ×4 (09:10→21:44)
[2019-10-05] MEDS: ASPIRIN 81 MG CHEWABLE TABLETS PO SCH (09:41)
[2019-10-05] MEDS: FERROUS SO4 325 MG TABLET (FP) PO SCH ×2 (09:41→21:34)
[2019-10-05] MEDS: BACITRACIN 15 GM TUBE TOPICAL OINTMENT TP SCH (09:41)
[2019-10-05] MEDS: LOSARTAN POTASSIUM 50 MG TABLET (FP) PO SCH (09:41)
[2019-10-05] MEDS: CYCLOBENZAPRINE HCL 5 MG TABLET PO SCH ×2 (09:41→21:46)
[2019-10-05] MEDS: ISOSORBIDE MONONITRATE 30 MG TAB.SR.24H (FP) PO SCH (09:42)
[2019-10-05] MEDS: LABETALOL HCL 100 MG TABLET (FP) PO SCH ×2 (09:42→21:34)
[2019-10-05] MEDS: CALCITRIOL 0.25 MCG CAPSULE (FP) PO SCH (09:42)
[2019-10-05] MEDS: CLOPIDOGREL BISULFATE 75 MG TABLET (FP) PO SCH (09:42)
[2019-10-05] MEDS: SODIUM ZIRCONIUM CYCLOSILICATE (LOKELMA) 5 GM PACKET PO SCH (11:00)
[2019-10-05] MEDS: CHOLESTYRAMINE/ASPARTAME 4 GM PACKET PO SCH ×2 (11:00→21:35)
--- NOTE | 2019-10-05 11:11 | PN ---
Progress Note (short form) - Note Progress Note: Neurology History of Present Illness - General Chief Complaint: Tremors Primary Care Physician: Dr. Flores FABIAN The patient is an 84 year old female, with a significant past medical history of htn, esrd (on hd m,w last session 09/23 for approx. 1.5 months), diabetes, anemia, anxiety, pvd, oa, 64 pack-year smoker, who presented to the emergency department secondary to missing dialysis. As per patient, she missed her dialysis session 4 days prior to day of admission on Monday (09/25) secondary to panic attacks (patient ran out of her anxiety medications). Patient was evaluated twice (09/27, 09/29) for weakness and anxiety. Upon patients initial presentation 09/27 she was given a prescription for Xanax but , was unable to fill the prescription secondary to it being the weekend thus she reported to the ED on day prior to admission. Patient presented to the ED today secondary to tremors and the inability to walk since the morning. She noted to have been without her Xanax 0.25 (takes BID) for the past 4 days. She c /o slurred speech and unsteadiness on her feet on day of admission. She reported that she was in the hospital on day before admission because she felt unwell and was dc to home (she lives alone/no TUTORING MANAGER). On day of admission, she attempted to call her neighbor (time unclear) and she noticed her speech was slurring (subjective slurring). She then attempted to get out of bed (walks with walker) and was unsteady on her feet. She normally walks with a walker. She denied PARR, vision change, and numbness/tingling. This has never happened before. She has not fallen. She did not hit her head. She never lost consciousness. NIHSS 1 for saying the month is August and not September. Ct of head performed and showed no acute intracranial pathology. Generalized volume loss with moderate ventricular dilatation and extensive periventricular chronic microvascular ischemic changes. Left posterior calcified mass/meningioma without significant interval change in comparison to prior CT on 09/26/2018. Neurologically, patient without deficits and on admission there was concern for CVA which does not appear to be the case. Patient without focal deficits, normal speech, mental status at baseline. She does complain of muscle spasms and which she described as shaking. I did not visualize any involuntary movements but we discussed trial of cyclobenzaprine 5 mg twice a day in hopes that this will provide some relief, which was initiated but the patient was unsure if she receives the medication. I did not visualize any shaking but she reports its more noticeable when she is ambulating. CYclobenzaprine started and she reports shakign sensation resolved. Feels she's at baseline now. Active Medications Acetaminophen (Tylenol -) 650 mg PO Q6H PRN PRN Reason: FEVER Alprazolam (Xanax -) 0.25 mg PO Q8H PRN PRN Reason: ANXIETY Last Admin: 10/04/19 21:21 Dose: 0.25 mg Amitriptyline HCl (Elavil -) 50 mg PO HS [facility] Last Admin: 10/04/19 21:27 Dose: 50 mg Aspirin (Asa -) 81 mg PO DAILY [facility] Last Admin: 10/05/19 09:41 Dose: 81 mg Atorvastatin Calcium (Lipitor -) 80 mg PO [facility] Last Admin: 10/04/19 21:22 Dose: 80 mg Bacitracin (Bacitracin -) 1 applic TP DAILY [facility] Last Admin: 10/05/19 09:41 Dose: 1 applic Calcitriol (Rocaltrol -) 0.25 mcg PO DAILY [facility] Last Admin: 10/05/19 09:42 Dose: 0.25 mcg Calcium Acetate (Phoslo -) 667 mg PO TIDCM [facility] Last Admin: 10/05/19 09:00 Dose: 667 mg Cholestyramine Resin (Questran Light Packet -) 4 gm PO BID [facility] Last Admin: 10/04/19 21:27 Dose: 4 gm Clopidogrel Bisulfate (Plavix -) 75 mg PO DAILY [facility] Last Admin: 10/05/19 09:42 Dose: 75 mg Cyclobenzaprine HCl (Cyclobenzaprine Hcl) 5 mg PO BID [facility] Last Admin: 10/05/19 09:41 Dose: 5 mg Ferrous Sulfate (Feosol -) 325 mg PO BID [facility] Last Admin: 10/05/19 09:41 Dose: 325 mg Hydralazine HCl (Apresoline -) 50 mg PO TID [facility] Last Admin: 10/05/19 05:25 Dose: 50 mg Isosorbide Mononitrate (Imdur -) 30 mg PO DAILY [facility] Last Admin: 10/05/19 09:42 Dose: 30 mg Labetalol HCl (Normodyne -) 200 mg PO BID [facility] Last Admin: 10/05/19 09:42 Dose: 200 mg Losartan Potassium (Cozaar -) 100 mg PO DAILY [facility] Last Admin: 10/05/19 09:41 Dose: 100 mg Nifedipine (Procardia Xl -) 120 mg PO DAILY [facility] Last Admin: 10/04/19 15:14 Dose: Not Given Ondansetron HCl (Zofran -) 4 mg PO BID PRN PRN Reason: NAUSEA AND/OR VOMITING Last Admin: 10/04/19 13:39 Dose: 4 mg Sodium Zirconium Cyclosilicate (Lokelma) 10 gm PO DAILY [facility] Last Admin: 10/04/19 15:14 Dose: Not Given *Physical Exam - Vital Signs Vital Signs Period Temp Pulse Resp BP Sys/Banuelos Pulse Ox Last 24 Hr 98.1 F-98.6 F 60-83 18-18 110-170/46-90 98 GENERAL: AO x3 NAD , anxious HEAD: NCAT EYES: ЮЛИЯ, EOMI, sclera anicteric, conjunctiva clear. No ptosis. ENT: Ears normal, nares patent, oropharynx clear without exudates, dry mucous membranes. NECK: Trachea midline, full range of motion, supple. LUNGS: CTAB , no wheezes, no crackles, no accessory muscle use. HEART: RRR, S1, S2 without murmur, rub or gallop. ABDOMEN: Soft, nontender, nondistended, normoactive bowel sounds, no guarding, no rebound, no hepatosplenomegaly, no masses. EXTREMITIES: 2+ pulses, warm, well-perfused, no edema. NEUROLOGICAL: Cranial nerves II through XII grossly intact. Normal speech, gait not observed. FTN neg. Refused to participate in [id number]. No disdiadokinesia. Pt sat at edge of the bed and swang feet, then refused to participate in walking. 4/5 LUE distal flexor strength, otherwise 5/5 throughout in distal and prox felx/extensors. Gross sensation intact. NO RIGHT patellar reflex, 2+ LEFT patellar reflex, no brachial reflexes elicited. PSYCH: Normal mood, normal affect. SKIN: Warm, dry, normal turgor, no rashes or lesions noted CBCD WBC 4.4 K/mm3 (4.0-10.0) 10/04/19 10:00 RBC 3.17 M/mm3 (3.60-5.2) L 10/04/19 10:00 Hgb 10.0 GM/dL (10.7-15.3) L 10/04/19 10:00 Hct 30.9 % (32.4-45.2) L 10/04/19 10:00 MCV 97.7 fl (80-96) H 10/04/19 10:00 MCHC 32.3 g/dl (32.0-36.0) 10/04/19 10:00 RDW 15.5 % (11.6-15.6) 10/04/19 10:00 Plt Count 239 K/MM3 (134-434) 10/04/19 10:00 MPV 8.5 fl (7.5-11.1) 10/04/19 10:00 CMP Sodium 139 mmol/L (136-145) 10/04/19 10:00 Potassium 4.3 mmol/L (3.5-5.1) 10/04/19 10:00 Chloride 106 mmol/L (98-107) 10/04/19 10:00 Carbon Dioxide 24 mmol/L (21-32) 10/04/19 10:00 Anion Gap 9 MMOL/L (8-16) 10/04/19 10:00 BUN 35.3 mg/dL (7-18) H 10/04/19 10:00 Creatinine 7.5 mg/dL (0.55-1.3) H* 10/04/19 10:00 Random Glucose 186 mg/dL (74-106) H 10/04/19 10:00 Calcium 8.0 mg/dL (8.5-10.1) L 10/04/19 10:00 Total Bilirubin 0.3 mg/dL (0.2-1) 09/30/19 13:30 AST 18 U/L (15-37) 09/30/19 13:30 ALT 20 U/L (13-61) 09/30/19 13:30 Alkaline Phosphatase 81 U/L (45-117) 09/30/19 13:30 Total Protein 7.0 g/dl (6.4-8.2) 09/30/19 13:30 Albumin 3.2 g/dl (3.4-5.0) L 09/30/19 13:30 CARDIAC ENZYMES Creatine Kinase 91 U/L (26-192) 09/30/19 13:30 Troponin I < 0.02 ng/ml (0.00-0.05) 09/30/19 13:30 Plan The patient is an 84 year old female, with a significant past medical history of htn, esrd (on hd m,w last session 09/23 for approx. 1.5 months), diabetes, anemia, anxiety, pvd, oa, 64 pack-year smoker, who presented to the emergency department secondary to missing dialysis. As per patient, she missed her dialysis session 4 days prior to day of admission on Monday (09/25) secondary to panic attacks (patient ran out of her anxiety medications). Patient was evaluated twice (09/27, 09/29) for weakness and anxiety. Upon patients initial presentation 09/27 she was given a prescription for Xanax but , was unable to fill the prescription secondary to it being the weekend thus she reported to the ED on day prior to admission. Patient presented to the ED today secondary to tremors and the inability to walk since the morning. She noted to have been without her Xanax 0.25 (takes BID) for the past 4 days. She c /o slurred speech and unsteadiness on her feet on day of admission. She reported that she was in the hospital on day before admission because she felt unwell and was dc to home (she lives alone/no TUTORING MANAGER). On day of admission, she attempted to call her neighbor (time unclear) and she noticed her speech was slurring (subjective slurring). She then attempted to get out of bed (walks with walker) and was unsteady on her feet. She normally walks with a walker. She denied PARR, vision change, and numbness/tingling. This has never happened before. She has not fallen. She did not hit her head. She never lost consciousness. NIHSS 1 for saying the month is August and not September. Ct of head performed and showed no acute intracranial pathology. Generalized volume loss with moderate ventricular dilatation and extensive periventricular chronic microvascular ischemic changes. Left posterior calcified mass/meningioma without significant interval change in comparison to prior CT on 09/26/2018. Neurologically, patient without deficits and on admission there was concern for CVA which does not appear to be the case. Patient without focal deficits, normal speech, mental status at baseline. Patient for HD and this would be of benefit for clearing toxins, metabolites. Recommend monitoring anxiety which also precipitate subsequent episodes. She does complain of muscle spasms and which she described as shaking. I did not visualize any shaking but she reports its more noticeable when she is ambulating. CYclobenzaprine started and she reports shakign sensation resolved. Feels she's at baseline now. Neurologically otherwise stable at this time. Monitor blood pressure, maintain normotensive range. L posterior meningioma not likely etiology to her complaints and chronic, does not require acute intervention. Can continue flexeril as outpatient
[2019-10-05] MEDS: hydrALAZINE HCL 10 MG TABLET PO SCH (21:34)
[2019-10-05] MEDS: ATORVASTATIN CA 80 MG TABLET (FP) PO SCH (21:34)
[2019-10-05] MEDS: AMITRIPTYLINE HCL 25 MG TABLET PO SCH (21:46)
[2019-10-05] MEDS ORDERED: hydrALAZINE HCL 25 MG TABLET (FP) PO SCH (22:00)
[2019-10-05] MEDS: ALPRAZolam 0.25 MG TABLET PO PRN (23:04)
[2019-10-06] MEDS ORDERED: PT OWN MED DRAWER 7, Y5N ONE ×2 (08:54→21:13)
[2019-10-06] MEDS: CALCIUM ACETATE 667 MG CAPSULE (FP) PO SCH ×3 (09:03→17:19)
[2019-10-06] MEDS: ASPIRIN 81 MG CHEWABLE TABLETS PO SCH (09:04)
[2019-10-06] MEDS: BACITRACIN 15 GM TUBE TOPICAL OINTMENT TP SCH (09:04)
[2019-10-06] MEDS: hydrALAZINE HCL 10 MG TABLET PO SCH (09:07)
[2019-10-06] MEDS: FERROUS SO4 325 MG TABLET (FP) PO SCH ×2 (09:09→21:32)
[2019-10-06] MEDS: ISOSORBIDE MONONITRATE 30 MG TAB.SR.24H (FP) PO SCH (09:10)
[2019-10-06] MEDS: CYCLOBENZAPRINE HCL 5 MG TABLET PO SCH ×2 (09:10→21:32)
[2019-10-06] MEDS: CLOPIDOGREL BISULFATE 75 MG TABLET (FP) PO SCH (09:11)
[2019-10-06] MEDS: SODIUM ZIRCONIUM CYCLOSILICATE (LOKELMA) 5 GM PACKET PO SCH (09:11)
[2019-10-06] MEDS: LABETALOL HCL 100 MG TABLET (FP) PO SCH ×2 (09:11→21:32)
[2019-10-06] MEDS: CHOLESTYRAMINE/ASPARTAME 4 GM PACKET PO SCH ×3 (09:12→21:32)
[2019-10-06] MEDS: LOSARTAN POTASSIUM 50 MG TABLET (FP) PO SCH (09:13)
[2019-10-06] MEDS: NIFEdipine E.R 60 MG TABLET PO SCH (09:13)
[2019-10-06] MEDS: CALCITRIOL 0.25 MCG CAPSULE (FP) PO SCH (09:14)
[2019-10-06] MEDS: ALPRAZolam 0.25 MG TABLET PO PRN ×2 (09:20→19:42)
--- NOTE | 2019-10-06 09:34 | PN ---
Progress Note, Physician Chief Complaint: labile HTN (was low then high) BP meds adjusted and d/w pt - Current Medication List Current Medications: Active Medications Acetaminophen (Tylenol -) 650 mg PO Q6H PRN PRN Reason: FEVER Alprazolam (Xanax -) 0.25 mg PO Q8H PRN PRN Reason: ANXIETY Last Admin: 10/06/19 09:20 Dose: 0.25 mg Amitriptyline HCl (Elavil -) 50 mg PO HS [facility] Last Admin: 10/05/19 21:46 Dose: 50 mg Aspirin (Asa -) 81 mg PO DAILY [facility] Last Admin: 10/06/19 09:04 Dose: 81 mg Atorvastatin Calcium (Lipitor -) 80 mg PO HS [facility] Last Admin: 10/05/19 21:34 Dose: Not Given Bacitracin (Bacitracin -) 1 applic TP DAILY [facility] Last Admin: 10/06/19 09:04 Dose: 1 applic Calcitriol (Rocaltrol -) 0.25 mcg PO DAILY [facility] Last Admin: 10/06/19 09:14 Dose: 0.25 mcg Calcium Acetate (Phoslo -) 667 mg PO TIDCM [facility] Last Admin: 10/06/19 09:03 Dose: 667 mg Cholestyramine Resin (Questran Light Packet -) 4 gm PO BID [facility] Last Admin: 10/06/19 09:18 Dose: Not Given Clopidogrel Bisulfate (Plavix -) 75 mg PO DAILY [facility] Last Admin: 10/06/19 09:11 Dose: 75 mg Cyclobenzaprine HCl (Cyclobenzaprine Hcl) 5 mg PO BID [facility] Last Admin: 10/06/19 09:10 Dose: 5 mg Ferrous Sulfate (Feosol -) 325 mg PO BID [facility] Last Admin: 10/06/19 09:09 Dose: 325 mg Hydralazine HCl (Apresoline -) 10 mg PO BID [facility] Last Admin: 10/06/19 09:07 Dose: 10 mg Isosorbide Mononitrate (Imdur -) 30 mg PO DAILY [facility] Last Admin: 10/06/19 09:10 Dose: 30 mg Labetalol HCl (Normodyne -) 200 mg PO BID [facility] Last Admin: 10/06/19 09:11 Dose: 200 mg Losartan Potassium (Cozaar -) 100 mg PO DAILY [facility] Last Admin: 10/06/19 09:13 Dose: Not Given Nifedipine (Procardia Xl -) 120 mg PO DAILY [facility] Last Admin: 10/06/19 09:13 Dose: Not Given Ondansetron HCl (Zofran -) 4 mg PO BID PRN PRN Reason: NAUSEA AND/OR VOMITING Last Admin: 10/04/19 13:39 Dose: 4 mg Sodium Zirconium Cyclosilicate (Lokelma) 10 gm PO DAILY [facility] Last Admin: 10/06/19 09:11 Dose: 10 gm - Objective Vital Signs: Vital Signs Temperature 97.8 F 10/06/19 08:10 Pulse Rate 73 10/06/19 09:02 Respiratory Rate 18 10/06/19 09:22 Blood Pressure 162/82 10/06/19 09:02 O2 Sat by Pulse Oximetry (%) 98 10/06/19 09:22 Constitutional: Yes: No Distress Eyes: Yes: Conjunctiva Clear HENT: Yes: Atraumatic Neck: Yes: Supple Cardiovascular: Yes: Regular Rate and Rhythm Respiratory: Yes: CTA Bilaterally Gastrointestinal: Yes: Soft. No: Tenderness Genitourinary: No: Hematuria Musculoskeletal: No: Joint Stiffness, Joint Swelling Extremities: No: Cold, Cool, Cyanosis Edema: No Integumentary: No: Rash, Venous Stasis Changes Neurological: Yes: Alert, Oriented ...Motor Strength: WNL Psychiatric: Yes: Alert, Oriented. No: Agitated, Suicidal Ideation Labs: CBC, BMP 10/04/19 10:00 10/04/19 10:00 - ....Imaging Other: Report Reviewed Assessment/Plan 84 YOF ASHD DM HTN PVD COPD CRF ESRD / HD smoker anxiety nonc/w meds consults and dialysis admitted after missed HD and inability to walk, cleared by neurology for DC d/w CM further plans to follow PT rehab'; HD per renal stop tob; cont meds as ordered; pt asked for xanax TID d/w pt risks and SE falls tolerance dependence - also d/w pt risks ms relaxant (falls) she is aware ; advised psychiatry eval for anxiety but pt refused falls decubs DVT pfx d/w pt and staff
--- NOTE | 2019-10-06 10:42 | PN ---
Progress Note (short form) - Note Progress Note: Neurology History of Present Illness - General Chief Complaint: Tremors Primary Care Physician: Dr. Flores FABIAN The patient is an 84 year old female, with a significant past medical history of htn, esrd (on hd m,w last session 09/23 for approx. 1.5 months), diabetes, anemia, anxiety, pvd, oa, 64 pack-year smoker, who presented to the emergency department secondary to missing dialysis. As per patient, she missed her dialysis session 4 days prior to day of admission on Monday (09/25) secondary to panic attacks (patient ran out of her anxiety medications). Patient was evaluated twice (09/27, 09/29) for weakness and anxiety. Upon patients initial presentation 09/27 she was given a prescription for Xanax but , was unable to fill the prescription secondary to it being the weekend thus she reported to the ED on day prior to admission. Patient presented to the ED today secondary to tremors and the inability to walk since the morning. She noted to have been without her Xanax 0.25 (takes BID) for the past 4 days. She c /o slurred speech and unsteadiness on her feet on day of admission. She reported that she was in the hospital on day before admission because she felt unwell and was dc to home (she lives alone/no [employer]). On day of admission, she attempted to call her neighbor (time unclear) and she noticed her speech was slurring (subjective slurring). She then attempted to get out of bed (walks with walker) and was unsteady on her feet. She normally walks with a walker. She denied PARR, vision change, and numbness/tingling. This has never happened before. She has not fallen. She did not hit her head. She never lost consciousness. NIHSS 1 for saying the month is August and not September. Ct of head performed and showed no acute intracranial pathology. Generalized volume loss with moderate ventricular dilatation and extensive periventricular chronic microvascular ischemic changes. Left posterior calcified mass/meningioma without significant interval change in comparison to prior CT on 09/26/2018. Neurologically, patient without deficits and on admission there was concern for CVA which does not appear to be the case. Patient without focal deficits, normal speech, mental status at baseline. She does complain of muscle spasms and which she described as shaking. I did not visualize any involuntary movements but we discussed trial of cyclobenzaprine 5 mg twice a day in hopes that this will provide some relief, which was initiated and provided significant relief, notes reviewed and patient awaiting placement Active Medications Acetaminophen (Tylenol -) 650 mg PO Q6H PRN PRN Reason: FEVER Alprazolam (Xanax -) 0.25 mg PO Q8H PRN PRN Reason: ANXIETY Last Admin: 10/06/19 09:20 Dose: 0.25 mg Amitriptyline HCl (Elavil -) 50 mg PO HS [facility] Last Admin: 10/05/19 21:46 Dose: 50 mg Aspirin (Asa -) 81 mg PO DAILY [facility] Last Admin: 10/06/19 09:04 Dose: 81 mg Atorvastatin Calcium (Lipitor -) 80 mg PO [facility] Last Admin: 10/05/19 21:34 Dose: Not Given Bacitracin (Bacitracin -) 1 applic TP DAILY [facility] Last Admin: 10/06/19 09:04 Dose: 1 applic Calcitriol (Rocaltrol -) 0.25 mcg PO DAILY [facility] Last Admin: 10/06/19 09:14 Dose: 0.25 mcg Calcium Acetate (Phoslo -) 667 mg PO TIDCM [facility] Last Admin: 10/06/19 09:03 Dose: 667 mg Cholestyramine Resin (Questran Light Packet -) 4 gm PO BID [facility] Last Admin: 10/06/19 09:18 Dose: Not Given Clopidogrel Bisulfate (Plavix -) 75 mg PO DAILY [facility] Last Admin: 10/06/19 09:11 Dose: 75 mg Cyclobenzaprine HCl (Cyclobenzaprine Hcl) 5 mg PO BID [facility] Last Admin: 10/06/19 09:10 Dose: 5 mg Ferrous Sulfate (Feosol -) 325 mg PO BID [facility] Last Admin: 10/06/19 09:09 Dose: 325 mg Hydralazine HCl (Apresoline -) 25 mg PO BID [facility] Isosorbide Mononitrate (Imdur -) 30 mg PO DAILY [facility] Last Admin: 10/06/19 09:10 Dose: 30 mg Labetalol HCl (Normodyne -) 200 mg PO BID [facility] Last Admin: 10/06/19 09:11 Dose: 200 mg Losartan Potassium (Cozaar -) 100 mg PO DAILY [facility] Last Admin: 02/16/20 09:13 Dose: Not Given Nifedipine (Procardia Xl -) 120 mg PO DAILY [facility] Last Admin: 10/06/19 09:13 Dose: Not Given Ondansetron HCl (Zofran -) 4 mg PO BID PRN PRN Reason: NAUSEA AND/OR VOMITING Last Admin: 10/04/19 13:39 Dose: 4 mg Sodium Zirconium Cyclosilicate (Lokelma) 10 gm PO DAILY [facility] Last Admin: 10/06/19 09:11 Dose: 10 gm *Physical Exam - Vital Signs Vital Signs Period Temp Pulse Resp BP Sys/Banuelos Pulse Ox Last 24 Hr 97.8 F-98.8 F 55-77 17-22 80-162/36-82 98-98 GENERAL: AO x3 NAD , anxious HEAD: NCAT EYES: ЮЛИЯ, EOMI, sclera anicteric, conjunctiva clear. No ptosis. ENT: Ears normal, nares patent, oropharynx clear without exudates, dry mucous membranes. NECK: Trachea midline, full range of motion, supple. LUNGS: CTAB , no wheezes, no crackles, no accessory muscle use. HEART: RRR, S1, S2 without murmur, rub or gallop. ABDOMEN: Soft, nontender, nondistended, normoactive bowel sounds, no guarding, no rebound, no hepatosplenomegaly, no masses. EXTREMITIES: 2+ pulses, warm, well-perfused, no edema. NEUROLOGICAL: Cranial nerves II through XII grossly intact. Normal speech, gait not observed. FTN neg. Refused to participate in [id number]. No disdiadokinesia. Pt sat at edge of the bed and swang feet, then refused to participate in walking. 4/5 LUE distal flexor strength, otherwise 5/5 throughout in distal and prox felx/extensors. Gross sensation intact. NO RIGHT patellar reflex, 2+ LEFT patellar reflex, no brachial reflexes elicited. PSYCH: Normal mood, normal affect. SKIN: Warm, dry, normal turgor, no rashes or lesions noted CBCD WBC 4.4 K/mm3 (4.0-10.0) 10/04/19 10:00 RBC 3.17 M/mm3 (3.60-5.2) L 10/04/19 10:00 Hgb 10.0 GM/dL (10.7-15.3) L 10/04/19 10:00 Hct 30.9 % (32.4-45.2) L 10/04/19 10:00 MCV 97.7 fl (80-96) H 10/04/19 10:00 MCHC 32.3 g/dl (32.0-36.0) 10/04/19 10:00 RDW 15.5 % (11.6-15.6) 10/04/19 10:00 Plt Count 239 K/MM3 (134-434) 10/04/19 10:00 MPV 8.5 fl (7.5-11.1) 10/04/19 10:00 CMP Sodium 139 mmol/L (136-145) 10/04/19 10:00 Potassium 4.3 mmol/L (3.5-5.1) 10/04/19 10:00 Chloride 106 mmol/L (98-107) 10/04/19 10:00 Carbon Dioxide 24 mmol/L (21-32) 10/04/19 10:00 Anion Gap 9 MMOL/L (8-16) 10/04/19 10:00 BUN 35.3 mg/dL (7-18) H 10/04/19 10:00 Creatinine 7.5 mg/dL (0.55-1.3) H* 10/04/19 10:00 Random Glucose 186 mg/dL (74-106) H 10/04/19 10:00 Calcium 8.0 mg/dL (8.5-10.1) L 10/04/19 10:00 Total Bilirubin 0.3 mg/dL (0.2-1) 09/30/19 13:30 AST 18 U/L (15-37) 09/30/19 13:30 ALT 20 U/L (13-61) 09/30/19 13:30 Alkaline Phosphatase 81 U/L (45-117) 09/30/19 13:30 Total Protein 7.0 g/dl (6.4-8.2) 09/30/19 13:30 Albumin 3.2 g/dl (3.4-5.0) L 09/30/19 13:30 CARDIAC ENZYMES Creatine Kinase 91 U/L (26-192) 09/30/19 13:30 Troponin I < 0.02 ng/ml (0.00-0.05) 09/30/19 13:30 Plan The patient is an 84 year old female, with a significant past medical history of htn, esrd (on hd m,w last session 09/23 for approx. 1.5 months), diabetes, anemia, anxiety, pvd, oa, 64 pack-year smoker, who presented to the emergency department secondary to missing dialysis. As per patient, she missed her dialysis session 4 days prior to day of admission on Monday (09/25) secondary to panic attacks (patient ran out of her anxiety medications). Patient was evaluated twice (09/27, 09/29) for weakness and anxiety. Upon patients initial presentation 09/27 she was given a prescription for Xanax but , was unable to fill the prescription secondary to it being the weekend thus she reported to the ED on day prior to admission. Patient presented to the ED today secondary to tremors and the inability to walk since the morning. She noted to have been without her Xanax 0.25 (takes BID) for the past 4 days. She c /o slurred speech and unsteadiness on her feet on day of admission. She reported that she was in the hospital on day before admission because she felt unwell and was dc to home (she lives alone/no [employer]). On day of admission, she attempted to call her neighbor (time unclear) and she noticed her speech was slurring (subjective slurring). She then attempted to get out of bed (walks with walker) and was unsteady on her feet. She normally walks with a walker. She denied PARR, vision change, and numbness/tingling. This has never happened before. She has not fallen. She did not hit her head. She never lost consciousness. NIHSS 1 for saying the month is August and not September. Ct of head performed and showed no acute intracranial pathology. Generalized volume loss with moderate ventricular dilatation and extensive periventricular chronic microvascular ischemic changes. Left posterior calcified mass/meningioma without significant interval change in comparison to prior CT on 09/26/2018. Neurologically, patient without deficits and on admission there was concern for CVA which does not appear to be the case. Patient without focal deficits, normal speech, mental status at baseline. Patient for HD and this would be of benefit for clearing toxins, metabolites. Recommend monitoring anxiety which also precipitate subsequent episodes. She does complain of muscle spasms and which she described as shaking. I did not visualize any shaking but she reports its more noticeable when she is ambulating. Cyclobenzaprine started and she reports shaking sensation resolved. Feels she's at baseline now. Monitor blood pressure, maintain normotensive range. L posterior meningioma not likely etiology to her complaints and chronic, does not require acute intervention. Can continue flexeril as outpatientfollow-up placement as per primary care, case management. Neurologically otherwise stable at this time
[2019-10-06] MEDS: hydrALAZINE HCL 25 MG TABLET (FP) PO SCH ×2 (10:52→21:32)
--- NOTE | 2019-10-06 13:15 | PN ---
Progress Note (short form) - Note Progress Note: RENAL Pt is awake and alert denies complaints no nause aor vomiting Last Vital Signs Temp Pulse Resp BP Pulse Ox 97.8 F 71 18 163/70 98 10/06/19 08:10 10/06/19 11:42 10/06/19 11:42 10/06/19 11:42 10/06/19 09:22 lungs clear cvs 1s2 rr abd soft ext no edema neuro a+ox3 CBC, BMP 10/04/19 10:00 10/04/19 10:00 Current Medications Generic Name Dose Route Start Last Admin Trade Name Freq PRN Reason Stop Dose Admin Acetaminophen 650 mg 09/30/19 22:35 Tylenol - PO Q6H PRN FEVER Alprazolam 0.25 mg 10/01/19 19:02 10/06/19 09:20 Xanax - PO 0.25 mg Q8H PRN Administration ANXIETY Amitriptyline HCl 50 mg 10/01/19 22:00 10/05/19 21:46 Elavil - PO 50 mg HS [facility] Administration Aspirin 81 mg 10/01/19 10:00 10/06/19 09:04 Asa - PO 81 mg DAILY [facility] Administration Atorvastatin Calcium 80 mg 10/01/19 22:00 10/05/19 21:34 Lipitor - PO Not Given HS [facility] Bacitracin 1 applic 10/01/19 10:00 10/06/19 09:04 Bacitracin - TP 1 applic DAILY [facility] Administration Calcitriol 0.25 mcg 10/01/19 10:00 10/06/19 09:14 Rocaltrol - PO 0.25 mcg DAILY [facility] Administration Calcium Acetate 667 mg 09/30/19 22:45 10/06/19 12:25 Phoslo - PO 667 mg TIDCM [facility] Administration Cholestyramine Resin 4 gm 09/30/19 22:45 10/06/19 09:18 Questran Light Packet - PO Not Given BID [facility] Clopidogrel Bisulfate 75 mg 10/01/19 10:00 10/06/19 09:11 Plavix - PO 75 mg DAILY [facility] Administration Cyclobenzaprine HCl 5 mg 10/02/19 10:00 10/06/19 09:10 Cyclobenzaprine Hcl PO 5 mg BID [facility] Administration Ferrous Sulfate 325 mg 09/30/19 22:45 10/06/19 09:09 Feosol - PO 325 mg BID [facility] Administration Hydralazine HCl 25 mg 10/06/19 10:00 10/06/19 10:52 Apresoline - PO Not Given BID [facility] Isosorbide Mononitrate 30 mg 10/01/19 10:00 10/06/19 09:10 Imdur - PO 30 mg DAILY [facility] Administration Labetalol HCl 200 mg 10/05/19 22:00 10/06/19 09:11 Normodyne - PO 200 mg BID [facility] Administration Losartan Potassium 100 mg 10/06/19 10:00 10/06/19 09:13 Cozaar - PO Not Given DAILY [facility] Nifedipine 120 mg 10/06/19 10:00 10/06/19 09:13 Procardia Xl - PO Not Given DAILY [facility] Ondansetron HCl 4 mg 09/30/19 22:35 10/04/19 13:39 Zofran - PO 4 mg BID PRN Administration NAUSEA AND/OR VOMITING Sodium Zirconium Cyclosilicate 10 gm 10/01/19 10:00 10/06/19 09:11 Lokelma PO 10 gm DAILY [facility] Administration 84 year old woman with history of ESRD no HD, current smoker, DM, hypertension who presented from home with weakness and tremors and having missed dialysis. 1. ESRD on HD with missed dialysis 2. Tremors/Weakness w/o evidence of CVA 3. Hypertension 4. DM 5. Anxiety 6. CKD related Anemia 7. Confusion I will make arrangements for hd tomorrow no other changes for now neuro note read MV
[2019-10-06] MEDS ORDERED: SODIUM CHLORIDE 250 ML IV PRN (13:22)
[2019-10-06] MEDS: AMITRIPTYLINE HCL 25 MG TABLET PO SCH (21:32)
[2019-10-06] MEDS: ATORVASTATIN CA 80 MG TABLET (FP) PO SCH (21:32)
[2019-10-07] MEDS: CALCIUM ACETATE 667 MG CAPSULE (FP) PO SCH ×3 (08:55→18:20)
[2019-10-07] MEDS: CYCLOBENZAPRINE HCL 5 MG TABLET PO SCH ×2 (10:58→21:56)
[2019-10-07] MEDS: FERROUS SO4 325 MG TABLET (FP) PO SCH ×2 (10:58→21:56)
[2019-10-07] MEDS: CALCITRIOL 0.25 MCG CAPSULE (FP) PO SCH (10:59)
[2019-10-07] MEDS: CLOPIDOGREL BISULFATE 75 MG TABLET (FP) PO SCH (10:59)
[2019-10-07] MEDS: BACITRACIN 15 GM TUBE TOPICAL OINTMENT TP SCH (10:59)
[2019-10-07] MEDS: ASPIRIN 81 MG CHEWABLE TABLETS PO SCH (10:59)
[2019-10-07] MEDS: LABETALOL HCL 100 MG TABLET (FP) PO SCH ×2 (11:00→21:56)
[2019-10-07] MEDS: hydrALAZINE HCL 25 MG TABLET (FP) PO SCH ×2 (11:02→21:56)
[2019-10-07] MEDS: ISOSORBIDE MONONITRATE 30 MG TAB.SR.24H (FP) PO SCH (11:03)
[2019-10-07] MEDS: NIFEdipine E.R 60 MG TABLET PO SCH (11:05)
[2019-10-07] MEDS: CHOLESTYRAMINE/ASPARTAME 4 GM PACKET PO SCH ×2 (11:06→21:56)
[2019-10-07] MEDS: LOSARTAN POTASSIUM 50 MG TABLET (FP) PO SCH ×2 (11:08→12:12)
[2019-10-07] MEDS: SODIUM ZIRCONIUM CYCLOSILICATE (LOKELMA) 5 GM PACKET PO SCH (11:33)
--- NOTE | 2019-10-07 12:16 | PN ---
Progress Note, Physician History of Present Illness: Pt seen and examined at bedside. She tolerated HD. - Current Medication List Current Medications: Active Medications Acetaminophen (Tylenol -) 650 mg PO Q6H PRN PRN Reason: FEVER Alprazolam (Xanax -) 0.25 mg PO Q8H PRN PRN Reason: ANXIETY Last Admin: 10/06/19 19:42 Dose: 0.25 mg Amitriptyline HCl (Elavil -) 50 mg PO HS [facility] Last Admin: 10/06/19 21:32 Dose: 50 mg Aspirin (Asa -) 81 mg PO DAILY [facility] Last Admin: 10/07/19 10:59 Dose: 81 mg Atorvastatin Calcium (Lipitor -) 80 mg PO HS [facility] Last Admin: 10/06/19 21:32 Dose: 80 mg Bacitracin (Bacitracin -) 1 applic TP DAILY [facility] Last Admin: 10/07/19 10:59 Dose: 1 applic Calcitriol (Rocaltrol -) 0.25 mcg PO DAILY [facility] Last Admin: 10/07/19 10:59 Dose: 0.25 mcg Calcium Acetate (Phoslo -) 667 mg PO TIDCM [facility] Last Admin: 10/07/19 11:07 Dose: 667 mg Cholestyramine Resin (Questran Light Packet -) 4 gm PO BID [facility] Last Admin: 10/07/19 11:06 Dose: 4 gm Clopidogrel Bisulfate (Plavix -) 75 mg PO DAILY [facility] Last Admin: 10/07/19 10:59 Dose: 75 mg Cyclobenzaprine HCl (Cyclobenzaprine Hcl) 5 mg PO BID [facility] Last Admin: 10/07/19 10:58 Dose: 5 mg Ferrous Sulfate (Feosol -) 325 mg PO BID [facility] Last Admin: 10/07/19 10:58 Dose: 325 mg Hydralazine HCl (Apresoline -) 25 mg PO BID [facility] Last Admin: 10/07/19 11:02 Dose: 25 mg Sodium Chloride (Normal Saline -) 250 mls @ 3,000 mls/hr IV PRN PRN PRN Reason: Hypotension during Dialysis Stop: 10/07/19 13:22 Isosorbide Mononitrate (Imdur -) 30 mg PO DAILY [facility] Last Admin: 10/07/19 11:03 Dose: 30 mg Labetalol HCl (Normodyne -) 200 mg PO BID [facility] Last Admin: 10/07/19 11:00 Dose: 200 mg Losartan Potassium (Cozaar -) 100 mg PO DAILY [facility] Last Admin: 10/07/19 11:08 Dose: Not Given Nifedipine (Procardia Xl -) 120 mg PO DAILY [facility] Last Admin: 10/07/19 11:05 Dose: Not Given Ondansetron HCl (Zofran -) 4 mg PO BID PRN PRN Reason: NAUSEA AND/OR VOMITING Last Admin: 10/04/19 13:39 Dose: 4 mg Sodium Zirconium Cyclosilicate (Lokelma) 10 gm PO DAILY [facility] Last Admin: 10/07/19 11:33 Dose: Not Given - Objective Vital Signs: Vital Signs Temperature 98 F 10/07/19 11:30 Pulse Rate 69 10/07/19 11:30 Respiratory Rate 16 10/07/19 11:41 Blood Pressure 170/47 L 10/07/19 11:30 O2 Sat by Pulse Oximetry (%) 96 10/07/19 11:41 Constitutional: Yes: Calm Eyes: Yes: Conjunctiva Clear HENT: Yes: Atraumatic Neck: Yes: Supple Cardiovascular: Yes: S1, S2 Respiratory: Yes: CTA Bilaterally Gastrointestinal: Yes: Soft Genitourinary: Yes: WNL Musculoskeletal: Yes: WNL Edema: No Neurological: Yes: Oriented Psychiatric: Yes: Oriented Labs: CBC, BMP 10/04/19 10:00 10/04/19 10:00 Problem List - Problems (1) ESRD (end stage renal disease) on dialysis Code(s): N18.6 - END STAGE RENAL DISEASE; Z99.2 - DEPENDENCE ON RENAL DIALYSIS Assessment/Plan Current Medications Generic Name Dose Route Start Last Admin Trade Name Freq PRN Reason Stop Dose Admin Acetaminophen 650 mg 09/30/19 22:35 Tylenol - PO Q6H PRN FEVER Alprazolam 0.25 mg 10/01/19 19:02 10/06/19 19:42 Xanax - PO 0.25 mg Q8H PRN Administration ANXIETY Amitriptyline HCl 50 mg 10/01/19 22:00 10/06/19 21:32 Elavil - PO 50 mg HS [facility] Administration Aspirin 81 mg 10/01/19 10:00 10/07/19 10:59 Asa - PO 81 mg DAILY [facility] Administration Atorvastatin Calcium 80 mg 10/01/19 22:00 10/06/19 21:32 Lipitor - PO 80 mg HS [facility] Administration Bacitracin 1 applic 10/01/19 10:00 10/07/19 10:59 Bacitracin - TP 1 applic DAILY [facility] Administration Calcitriol 0.25 mcg 10/01/19 10:00 10/07/19 10:59 Rocaltrol - PO 0.25 mcg DAILY [facility] Administration Calcium Acetate 667 mg 09/30/19 22:45 10/07/19 11:07 Phoslo - PO 667 mg TIDCM [facility] Administration Cholestyramine Resin 4 gm 09/30/19 22:45 10/07/19 11:06 Questran Light Packet - PO 4 gm BID [facility] Administration Clopidogrel Bisulfate 75 mg 10/01/19 10:00 10/07/19 10:59 Plavix - PO 75 mg DAILY [facility] Administration Cyclobenzaprine HCl 5 mg 10/02/19 10:00 10/07/19 10:58 Cyclobenzaprine Hcl PO 5 mg BID [facility] Administration Ferrous Sulfate 325 mg 09/30/19 22:45 10/07/19 10:58 Feosol - PO 325 mg BID [facility] Administration Hydralazine HCl 25 mg 10/06/19 10:00 10/07/19 11:02 Apresoline - PO 25 mg BID [facility] Administration Sodium Chloride 250 mls @ 3,000 mls/hr 10/06/19 13:22 Normal Saline - IV 10/07/19 13:22 PRN PRN Hypotension during Dialysis Isosorbide Mononitrate 30 mg 10/01/19 10:00 10/07/19 11:03 Imdur - PO 30 mg DAILY [facility] Administration Labetalol HCl 200 mg 10/05/19 22:00 10/07/19 11:00 Normodyne - PO 200 mg BID [facility] Administration Losartan Potassium 100 mg 10/06/19 10:00 10/07/19 12:12 Cozaar - PO 100 mg DAILY [facility] Administration Nifedipine 120 mg 10/06/19 10:00 10/07/19 11:05 Procardia Xl - PO Not Given DAILY [facility] Ondansetron HCl 4 mg 09/30/19 22:35 10/04/19 13:39 Zofran - PO 4 mg BID PRN Administration NAUSEA AND/OR VOMITING Sodium Zirconium Cyclosilicate 10 gm 10/01/19 10:00 10/07/19 11:33 Lokelma PO Not Given DAILY [facility] 1. ESRD on HD with missed dialysis 2. Tremors/Weakness w/o evidence of CVA 3. Hypertension 4. DM 5. Anxiety 6. CKD related Anemia 7. Confusion Plan - pt tolerated HD - renal diet - d/c lokelma - monitor lytes - discussed compliance
--- NOTE | 2019-10-07 12:31 | DS ---
Physical Examination Vital Signs: Vital Signs Temperature 98 F 10/07/19 11:30 Pulse Rate 69 10/07/19 11:30 Respiratory Rate 16 10/07/19 11:41 Blood Pressure 170/47 L 10/07/19 11:30 O2 Sat by Pulse Oximetry (%) 96 10/07/19 11:41 Findings/Remarks: Pt w/o SOB, CP, palpitations, abd pain. She tolerated HD well. Constitutional: Yes: No Distress, Calm Cardiovascular: Yes: Regular Rate and Rhythm, S1, S2 Respiratory: Yes: Regular, CTA Bilaterally. No: Rales Gastrointestinal: Yes: Normal Bowel Sounds, Soft. No: Tenderness Edema: No Neurological: Yes: Alert, Oriented, Other Labs: CBC, BMP 10/04/19 10:00 10/04/19 10:00 Discharge Summary Problems reviewed: Yes Reason For Visit: TIA Current Active Problems Amputated toe (Acute) Anxiety (Acute) ESRD (end stage renal disease) on dialysis (Acute) HTN (hypertension) (Acute) Hypertension (Acute) TIA (transient ischemic attack) (Acute) Uncontrolled hypertension (Acute) Unsteady gait (Acute) Procedures: Principal: Head CT scan Hospital Course: Pt came in c/o slurred speech, weakness in both legs and gait impairment; pt had negative ( for acute event) Head CT scan; pt was seen by Neuro (Dr Chopra) , not considered to have acute neurologic event. Pt was seen by by Renal (Dr Goyal) had HD, had anti-HTN medications adjusted secondary to elevated BP. Pt was evaluated by PT, improved slowly her walking; pt doesn't qualify for Rehab. Pt was noticed to be anxious, refused Psychiatry evaluation, Xanax was increased to TID PRN with improvement in her anxiety. Pt to be DCed home vs Rehab. Condition: Improved - Instructions Diet, Activity, Other Instructions: f/u PCP cardiology renal and psychiatry within 1-4 weeks take meds as prescribed HD per renal; stop tobacco; falls PFX Return to ER if worse. Referrals: Angela Barahona [Primary Care Provider] - Quentin Goyal MD [Staff Physician] - Disposition: HOME - Home Medications Comprehensive Discharge Medication List: Ambulatory Orders See patient instruction list.
[2019-10-07] MEDS: ALPRAZolam 0.25 MG TABLET PO PRN (18:19)
[2019-10-07] MEDS ORDERED: PT OWN MED DRAWER 7, Y5N ONE (21:12)
[2019-10-07] MEDS: AMITRIPTYLINE HCL 25 MG TABLET PO SCH (21:56)
[2019-10-07] MEDS: ATORVASTATIN CA 80 MG TABLET (FP) PO SCH (21:57)
[2019-10-08] MEDS: hydrALAZINE HCL 25 MG TABLET (FP) PO SCH ×3 (06:45→21:35)
[2019-10-08] MEDS: ALPRAZolam 0.25 MG TABLET PO PRN ×3 (07:01→21:40)
[2019-10-08] MEDS ORDERED: PT OWN MED DRAWER 7, Y5N ONE ×2 (08:35→21:31)
--- NOTE | 2019-10-08 08:38 | PN ---
Progress Note (short form) - Note Progress Note: Neurology History of Present Illness - General Chief Complaint: Tremors Primary Care Physician: Dr. Flores FABIAN The patient is an 84 year old female, with a significant past medical history of htn, esrd (on hd m,w last session 09/23 for approx. 1.5 months), diabetes, anemia, anxiety, pvd, oa, 64 pack-year smoker, who presented to the emergency department secondary to missing dialysis. As per patient, she missed her dialysis session 4 days prior to day of admission on Monday (09/25) secondary to panic attacks (patient ran out of her anxiety medications). Patient was evaluated twice (09/27, 09/29) for weakness and anxiety. Upon patients initial presentation 09/27 she was given a prescription for Xanax but , was unable to fill the prescription secondary to it being the weekend thus she reported to the ED on day prior to admission. Patient presented to the ED today secondary to tremors and the inability to walk since the morning. She noted to have been without her Xanax 0.25 (takes BID) for the past 4 days. She c /o slurred speech and unsteadiness on her feet on day of admission. She reported that she was in the hospital on day before admission because she felt unwell and was dc to home (she lives alone/no IRON INSTALLER). On day of admission, she attempted to call her neighbor (time unclear) and she noticed her speech was slurring (subjective slurring). She then attempted to get out of bed (walks with walker) and was unsteady on her feet. She normally walks with a walker. She denied PARR, vision change, and numbness/tingling. This has never happened before. She has not fallen. She did not hit her head. She never lost consciousness. NIHSS 1 for saying the month is August and not September. Ct of head performed and showed no acute intracranial pathology. Generalized volume loss with moderate ventricular dilatation and extensive periventricular chronic microvascular ischemic changes. Left posterior calcified mass/meningioma without significant interval change in comparison to prior CT on 09/26/2018. Neurologically, patient without deficits and on admission there was concern for CVA which does not appear to be the case. Patient without focal deficits, normal speech, mental status at baseline. She does complain of muscle spasms and which she described as shaking. I did not visualize any involuntary movements but we discussed trial of cyclobenzaprine 5 mg twice a day in hopes that this will provide some relief, which was initiated and provided significant relief, notes reviewed and patient awaiting placement. NO new events and remains stable. Active Medications Acetaminophen (Tylenol -) 650 mg PO Q6H PRN PRN Reason: FEVER Alprazolam (Xanax -) 0.25 mg PO Q8H PRN PRN Reason: ANXIETY Last Admin: 10/08/19 07:01 Dose: 0.25 mg Amitriptyline HCl (Elavil -) 50 mg PO HS [facility] Last Admin: 10/07/19 21:56 Dose: 50 mg Aspirin (Asa -) 81 mg PO DAILY [facility] Last Admin: 10/07/19 10:59 Dose: 81 mg Atorvastatin Calcium (Lipitor -) 80 mg PO HS [facility] Last Admin: 10/07/19 21:57 Dose: 80 mg Bacitracin (Bacitracin -) 1 applic TP DAILY [facility] Last Admin: 10/07/19 10:59 Dose: 1 applic Calcitriol (Rocaltrol -) 0.25 mcg PO DAILY [facility] Last Admin: 10/07/19 10:59 Dose: 0.25 mcg Calcium Acetate (Phoslo -) 667 mg PO TIDCM [facility] Last Admin: 10/07/19 18:20 Dose: 667 mg Cholestyramine Resin (Questran Light Packet -) 4 gm PO BID [facility] Last Admin: 10/07/19 21:56 Dose: 4 gm Clopidogrel Bisulfate (Plavix -) 75 mg PO DAILY [facility] Last Admin: 10/07/19 10:59 Dose: 75 mg Cyclobenzaprine HCl (Cyclobenzaprine Hcl) 5 mg PO BID [facility] Last Admin: 10/07/19 21:56 Dose: 5 mg Ferrous Sulfate (Feosol -) 325 mg PO BID [facility] Last Admin: 10/07/19 21:56 Dose: 325 mg Hydralazine HCl (Apresoline -) 25 mg PO TID [facility] Last Admin: 10/08/19 06:45 Dose: 25 mg Sodium Chloride (Normal Saline -) 250 mls @ 3,000 mls/hr IV PRN PRN PRN Reason: Hypotension during Dialysis Stop: 10/07/19 13:22 Isosorbide Mononitrate (Imdur -) 30 mg PO DAILY [facility] Last Admin: 10/07/19 11:03 Dose: 30 mg Labetalol HCl (Normodyne -) 200 mg PO BID [facility] Last Admin: 10/07/19 21:56 Dose: 200 mg Losartan Potassium (Cozaar -) 100 mg PO DAILY [facility] Last Admin: 10/07/19 12:12 Dose: 100 mg Nifedipine (Procardia Xl -) 120 mg PO DAILY [facility] Last Admin: 10/07/19 11:05 Dose: Not Given Ondansetron HCl (Zofran -) 4 mg PO BID PRN PRN Reason: NAUSEA AND/OR VOMITING Last Admin: 10/04/19 13:39 Dose: 4 mg *Physical Exam - Vital Signs Vital Signs Period Temp Pulse Resp BP Sys/Banuelos Pulse Ox Last 24 Hr 98 F-98.3 F 62-70 14-18 106-185/43-91 96-97 GENERAL: AO x3 NAD , anxious HEAD: NCAT EYES: ЮЛИЯ, EOMI, sclera anicteric, conjunctiva clear. No ptosis. ENT: Ears normal, nares patent, oropharynx clear without exudates, dry mucous membranes. NECK: Trachea midline, full range of motion, supple. LUNGS: CTAB , no wheezes, no crackles, no accessory muscle use. HEART: RRR, S1, S2 without murmur, rub or gallop. ABDOMEN: Soft, nontender, nondistended, normoactive bowel sounds, no guarding, no rebound, no hepatosplenomegaly, no masses. EXTREMITIES: 2+ pulses, warm, well-perfused, no edema. NEUROLOGICAL: Cranial nerves II through XII grossly intact. Normal speech, gait not observed. FTN neg. Refused to participate in [id number]. No disdiadokinesia. Pt sat at edge of the bed and swang feet, then refused to participate in walking. 4/5 LUE distal flexor strength, otherwise 5/5 throughout in distal and prox felx/extensors. Gross sensation intact. NO RIGHT patellar reflex, 2+ LEFT patellar reflex, no brachial reflexes elicited. PSYCH: Normal mood, normal affect. SKIN: Warm, dry, normal turgor, no rashes or lesions noted CBCD WBC 4.4 K/mm3 (4.0-10.0) 10/04/19 10:00 RBC 3.17 M/mm3 (3.60-5.2) L 10/04/19 10:00 Hgb 10.0 GM/dL (10.7-15.3) L 10/04/19 10:00 Hct 30.9 % (32.4-45.2) L 10/04/19 10:00 MCV 97.7 fl (80-96) H 10/04/19 10:00 MCHC 32.3 g/dl (32.0-36.0) 10/04/19 10:00 RDW 15.5 % (11.6-15.6) 10/04/19 10:00 Plt Count 239 K/MM3 (134-434) 10/04/19 10:00 MPV 8.5 fl (7.5-11.1) 10/04/19 10:00 CMP Sodium 139 mmol/L (136-145) 10/04/19 10:00 Potassium 4.3 mmol/L (3.5-5.1) 10/04/19 10:00 Chloride 106 mmol/L (98-107) 10/04/19 10:00 Carbon Dioxide 24 mmol/L (21-32) 10/04/19 10:00 Anion Gap 9 MMOL/L (8-16) 10/04/19 10:00 BUN 35.3 mg/dL (7-18) H 10/04/19 10:00 Creatinine 7.5 mg/dL (0.55-1.3) H* 10/04/19 10:00 Random Glucose 186 mg/dL (74-106) H 10/04/19 10:00 Calcium 8.0 mg/dL (8.5-10.1) L 10/04/19 10:00 Total Bilirubin 0.3 mg/dL (0.2-1) 09/30/19 13:30 AST 18 U/L (15-37) 09/30/19 13:30 ALT 20 U/L (13-61) 09/30/19 13:30 Alkaline Phosphatase 81 U/L (45-117) 09/30/19 13:30 Total Protein 7.0 g/dl (6.4-8.2) 09/30/19 13:30 Albumin 3.2 g/dl (3.4-5.0) L 09/30/19 13:30 CARDIAC ENZYMES Creatine Kinase 91 U/L (26-192) 09/30/19 13:30 Troponin I < 0.02 ng/ml (0.00-0.05) 09/30/19 13:30 Plan The patient is an 84 year old female, with a significant past medical history of htn, esrd (on hd m,w last session 09/23 for approx. 1.5 months), diabetes, anemia, anxiety, pvd, oa, 64 pack-year smoker, who presented to the emergency department secondary to missing dialysis. As per patient, she missed her dialysis session 4 days prior to day of admission on Monday (09/25) secondary to panic attacks (patient ran out of her anxiety medications). Patient was evaluated twice (09/27, 09/29) for weakness and anxiety. Upon patients initial presentation 09/27 she was given a prescription for Xanax but , was unable to fill the prescription secondary to it being the weekend thus she reported to the ED on day prior to admission. Patient presented to the ED today secondary to tremors and the inability to walk since the morning. She noted to have been without her Xanax 0.25 (takes BID) for the past 4 days. She c /o slurred speech and unsteadiness on her feet on day of admission. She reported that she was in the hospital on day before admission because she felt unwell and was dc to home (she lives alone/no IRON INSTALLER). On day of admission, she attempted to call her neighbor (time unclear) and she noticed her speech was slurring (subjective slurring). She then attempted to get out of bed (walks with walker) and was unsteady on her feet. She normally walks with a walker. She denied PARR, vision change, and numbness/tingling. This has never happened before. She has not fallen. She did not hit her head. She never lost consciousness. NIHSS 1 for saying the month is August and not September. Ct of head performed and showed no acute intracranial pathology. Generalized volume loss with moderate ventricular dilatation and extensive periventricular chronic microvascular ischemic changes. Left posterior calcified mass/meningioma without significant interval change in comparison to prior CT on 09/26/2018. Neurologically, patient without deficits and on admission there was concern for CVA which does not appear to be the case. Patient without focal deficits, normal speech, mental status at baseline. Patient for HD and this would be of benefit for clearing toxins, metabolites. Recommend monitoring anxiety which also precipitate subsequent episodes. She does complain of muscle spasms and which she described as shaking. I did not visualize any shaking but she reports its more noticeable when she is ambulating. Cyclobenzaprine started and she reports shaking sensation resolved. Feels she's at baseline now. Monitor blood pressure, maintain normotensive range. L posterior meningioma not likely etiology to her complaints and chronic, does not require acute intervention. Can continue flexeril as outpatient follow-up placement as per primary care, case management. Medication has been helpful and not sedating. Neurologically otherwise stable at this time.
[2019-10-08] MEDS: CALCIUM ACETATE 667 MG CAPSULE (FP) PO SCH ×3 (08:57→16:52)
[2019-10-08] MEDS: ASPIRIN 81 MG CHEWABLE TABLETS PO SCH (09:19)
[2019-10-08] MEDS: BACITRACIN 15 GM TUBE TOPICAL OINTMENT TP SCH (09:19)
[2019-10-08] MEDS: ISOSORBIDE MONONITRATE 30 MG TAB.SR.24H (FP) PO SCH (09:20)
[2019-10-08] MEDS: CLOPIDOGREL BISULFATE 75 MG TABLET (FP) PO SCH (09:20)
[2019-10-08] MEDS: NIFEdipine E.R 60 MG TABLET PO SCH (09:20)
[2019-10-08] MEDS: LABETALOL HCL 100 MG TABLET (FP) PO SCH ×2 (09:20→21:36)
[2019-10-08] MEDS: LOSARTAN POTASSIUM 50 MG TABLET (FP) PO SCH (09:20)
[2019-10-08] MEDS: CYCLOBENZAPRINE HCL 5 MG TABLET PO SCH ×2 (09:20→21:36)
[2019-10-08] MEDS: CALCITRIOL 0.25 MCG CAPSULE (FP) PO SCH (09:20)
[2019-10-08] MEDS: FERROUS SO4 325 MG TABLET (FP) PO SCH ×2 (09:20→21:45)
[2019-10-08] MEDS: CHOLESTYRAMINE/ASPARTAME 4 GM PACKET PO SCH ×2 (09:24→22:15)
--- NOTE | 2019-10-08 10:02 | PN ---
Progress Note, Physician History of Present Illness: Pt w/o cg, SOB, CP, palpitations, dizziness, abd pain. - Current Medication List Current Medications: Active Medications Acetaminophen (Tylenol -) 650 mg PO Q6H PRN PRN Reason: FEVER Alprazolam (Xanax -) 0.25 mg PO Q8H PRN PRN Reason: ANXIETY Last Admin: 10/08/19 07:01 Dose: 0.25 mg Amitriptyline HCl (Elavil -) 50 mg PO HS [facility] Last Admin: 10/07/19 21:56 Dose: 50 mg Aspirin (Asa -) 81 mg PO DAILY [facility] Last Admin: 10/08/19 09:19 Dose: 81 mg Atorvastatin Calcium (Lipitor -) 80 mg PO HS [facility] Last Admin: 10/07/19 21:57 Dose: 80 mg Bacitracin (Bacitracin -) 1 applic TP DAILY [facility] Last Admin: 10/08/19 09:19 Dose: 1 applic Calcitriol (Rocaltrol -) 0.25 mcg PO DAILY [facility] Last Admin: 10/08/19 09:20 Dose: 0.25 mcg Calcium Acetate (Phoslo -) 667 mg PO TIDCM [facility] Last Admin: 10/08/19 08:57 Dose: 667 mg Cholestyramine Resin (Questran Light Packet -) 4 gm PO BID [facility] Last Admin: 10/08/19 09:24 Dose: 4 gm Clopidogrel Bisulfate (Plavix -) 75 mg PO DAILY [facility] Last Admin: 10/08/19 09:20 Dose: 75 mg Cyclobenzaprine HCl (Cyclobenzaprine Hcl) 5 mg PO BID [facility] Last Admin: 10/08/19 09:20 Dose: 5 mg Ferrous Sulfate (Feosol -) 325 mg PO BID [facility] Last Admin: 10/08/19 09:20 Dose: 325 mg Hydralazine HCl (Apresoline -) 25 mg PO TID [facility] Last Admin: 10/08/19 06:45 Dose: 25 mg Sodium Chloride (Normal Saline -) 250 mls @ 3,000 mls/hr IV PRN PRN PRN Reason: Hypotension during Dialysis Stop: 10/07/19 13:22 Isosorbide Mononitrate (Imdur -) 30 mg PO DAILY [facility] Last Admin: 10/08/19 09:20 Dose: 30 mg Labetalol HCl (Normodyne -) 200 mg PO BID [facility] Last Admin: 10/08/19 09:20 Dose: 200 mg Losartan Potassium (Cozaar -) 100 mg PO DAILY [facility] Last Admin: 10/08/19 09:20 Dose: 100 mg Nifedipine (Procardia Xl -) 120 mg PO DAILY [facility] Last Admin: 10/08/19 09:20 Dose: 120 mg Ondansetron HCl (Zofran -) 4 mg PO BID PRN PRN Reason: NAUSEA AND/OR VOMITING Last Admin: 10/04/19 13:39 Dose: 4 mg - Objective Vital Signs: Vital Signs Temperature 98.5 F 10/08/19 08:46 Pulse Rate 64 10/08/19 08:46 Respiratory Rate 18 10/08/19 08:46 Blood Pressure 181/71 H 10/08/19 08:46 O2 Sat by Pulse Oximetry (%) 98 10/08/19 08:46 Constitutional: Yes: No Distress, Calm Cardiovascular: Yes: Regular Rate and Rhythm, S1, S2 Respiratory: Yes: Regular, CTA Bilaterally. No: Rales Gastrointestinal: Yes: Normal Bowel Sounds, Soft. No: Tenderness Edema: No Neurological: Yes: Alert, Oriented Labs: CBC, BMP 10/04/19 10:00 10/04/19 10:00 Problem List - Problems (1) TIA (transient ischemic attack) Code(s): G45.9 - TRANSIENT CEREBRAL ISCHEMIC ATTACK, UNSPECIFIED (2) Anxiety Code(s): F41.9 - ANXIETY DISORDER, UNSPECIFIED (3) Hypertension Code(s): I10 - ESSENTIAL (PRIMARY) HYPERTENSION (4) ESRD (end stage renal disease) on dialysis Code(s): N18.6 - END STAGE RENAL DISEASE; Z99.2 - DEPENDENCE ON RENAL DIALYSIS (5) CAD (coronary artery disease) Code(s): I25.10 - ATHSCL HEART DISEASE OF [place] CORONARY ARTERY W/O ANG PCTRS Qualifiers: Coronary Disease-Associated Artery/Lesion type: [place] artery [place] vs. transplanted heart: [place] heart Associated angina: without angina Qualified Code(s): I25.10 - Atherosclerotic heart disease of [place] coronary artery without angina pectoris (6) Diabetes mellitus Code(s): E11.9 - TYPE 2 DIABETES MELLITUS WITHOUT COMPLICATIONS Qualifiers: Diabetes mellitus type: type 2 Diabetes mellitus complication status: with kidney complications Diabetes mellitus complication detail: with chronic kidney disease Chronic kidney disease stage: on chronic dialysis (7) Uncontrolled hypertension Code(s): I10 - ESSENTIAL (PRIMARY) HYPERTENSION (8) Unsteady gait Code(s): R26.81 - UNSTEADINESS ON FEET Assessment/Plan Neuro and Renal consults are appreciated. Labetalol and Hydralazine were added for better BP control; this AM BP was elevated, coming down now To monitor BP Xanax was increased to TID, PRN. To f/u with PT. To f/u with CM
--- NOTE | 2019-10-08 10:07 | PN ---
Progress Note, Physician Chief Complaint: The patient seen and examined in her room. Reports feeling better. She received dialysis yesterday. When I requested her to try to come for dialysis in the future regularly, she became extremely upset and angry with me. History of Present Illness: 84 year old woman with history of ESRD no HD, current smoker, DM, hypertension who presented from home with weakness and tremors and having missed dialysis. 1. ESRD on HD with missed dialysis 2. Tremors/Weakness w/o evidence of CVA 3. Hypertension 4. DM 5. Anxiety 6. CKD related Anemia 7. Confusion - Current Medication List Current Medications: Active Medications Acetaminophen (Tylenol -) 650 mg PO Q6H PRN PRN Reason: FEVER Alprazolam (Xanax -) 0.25 mg PO Q8H PRN PRN Reason: ANXIETY Last Admin: 10/08/19 07:01 Dose: 0.25 mg Amitriptyline HCl (Elavil -) 50 mg PO HS [facility] Last Admin: 10/07/19 21:56 Dose: 50 mg Aspirin (Asa -) 81 mg PO DAILY [facility] Last Admin: 10/08/19 09:19 Dose: 81 mg Atorvastatin Calcium (Lipitor -) 80 mg PO HS [facility] Last Admin: 10/07/19 21:57 Dose: 80 mg Bacitracin (Bacitracin -) 1 applic TP DAILY [facility] Last Admin: 10/08/19 09:19 Dose: 1 applic Calcitriol (Rocaltrol -) 0.25 mcg PO DAILY [facility] Last Admin: 10/08/19 09:20 Dose: 0.25 mcg Calcium Acetate (Phoslo -) 667 mg PO TIDCM [facility] Last Admin: 10/08/19 08:57 Dose: 667 mg Cholestyramine Resin (Questran Light Packet -) 4 gm PO BID [facility] Last Admin: 10/08/19 09:24 Dose: 4 gm Clopidogrel Bisulfate (Plavix -) 75 mg PO DAILY [facility] Last Admin: 10/08/19 09:20 Dose: 75 mg Cyclobenzaprine HCl (Cyclobenzaprine Hcl) 5 mg PO BID [facility] Last Admin: 10/08/19 09:20 Dose: 5 mg Ferrous Sulfate (Feosol -) 325 mg PO BID [facility] Last Admin: 10/08/19 09:20 Dose: 325 mg Hydralazine HCl (Apresoline -) 25 mg PO TID [facility] Last Admin: 10/08/19 06:45 Dose: 25 mg Sodium Chloride (Normal Saline -) 250 mls @ 3,000 mls/hr IV PRN PRN PRN Reason: Hypotension during Dialysis Stop: 10/07/19 13:22 Isosorbide Mononitrate (Imdur -) 30 mg PO DAILY [facility] Last Admin: 10/08/19 09:20 Dose: 30 mg Labetalol HCl (Normodyne -) 200 mg PO BID [facility] Last Admin: 10/08/19 09:20 Dose: 200 mg Losartan Potassium (Cozaar -) 100 mg PO DAILY [facility] Last Admin: 10/08/19 09:20 Dose: 100 mg Nifedipine (Procardia Xl -) 120 mg PO DAILY [facility] Last Admin: 10/08/19 09:20 Dose: 120 mg Ondansetron HCl (Zofran -) 4 mg PO BID PRN PRN Reason: NAUSEA AND/OR VOMITING Last Admin: 10/04/19 13:39 Dose: 4 mg - Objective Vital Signs: Vital Signs Temperature 98.5 F 10/08/19 08:46 Pulse Rate 64 10/08/19 08:46 Respiratory Rate 18 10/08/19 08:46 Blood Pressure 181/71 H 10/08/19 08:46 O2 Sat by Pulse Oximetry (%) 98 10/08/19 08:46 Constitutional: Yes: No Distress, Anxious Eyes: Yes: Conjunctiva Clear HENT: Yes: Normocephalic Neck: Yes: Trachea Midline Cardiovascular: Yes: Regular Rate and Rhythm Respiratory: Yes: CTA Bilaterally, Diminished Gastrointestinal: Yes: Normal Bowel Sounds, Soft Genitourinary: No: CVA Tenderness - Left, CVA Tenderness - Right Labs: CBC, BMP 10/04/19 10:00 10/04/19 10:00 Problem List - Problems (1) Anxiety Code(s): F41.9 - ANXIETY DISORDER, UNSPECIFIED (2) Uncontrolled hypertension Code(s): I10 - ESSENTIAL (PRIMARY) HYPERTENSION (3) CAD (coronary artery disease) Code(s): I25.10 - ATHSCL HEART DISEASE OF [place] CORONARY ARTERY W/O ANG PCTRS Qualifiers: Coronary Disease-Associated Artery/Lesion type: [place] artery [place] vs. transplanted heart: [place] heart Associated angina: without angina Qualified Code(s): I25.10 - Atherosclerotic heart disease of [place] coronary artery without angina pectoris (4) COPD (chronic obstructive pulmonary disease) Code(s): J44.9 - CHRONIC OBSTRUCTIVE PULMONARY DISEASE, UNSPECIFIED (5) ESRD (end stage renal disease) on dialysis Code(s): N18.6 - END STAGE RENAL DISEASE; Z99.2 - DEPENDENCE ON RENAL DIALYSIS (6) Hypertension Code(s): I10 - ESSENTIAL (PRIMARY) HYPERTENSION (7) Diabetes mellitus Code(s): E11.9 - TYPE 2 DIABETES MELLITUS WITHOUT COMPLICATIONS Qualifiers: Diabetes mellitus type: type 2 Diabetes mellitus complication status: with kidney complications Diabetes mellitus complication detail: with chronic kidney disease Chronic kidney disease stage: on chronic dialysis Assessment/Plan 84 year old woman with history of ESRD no HD, current smoker, DM, hypertension who presented from home with weakness and tremors and having missed dialysis. 1. ESRD on HD. H/o skipping dialysis regularly. Had uneventful HD yesterday. Next HD tomorrow. 2. Tremors/Weakness w/o evidence of CVA 3. Hypertension 4. DM 5. Anxiety 6. CKD related Anemia HD in AM [facility] for dialysis.
[2019-10-08 16:35] VITALS: BMI 20.2
[2019-10-08] MEDS: ATORVASTATIN CA 80 MG TABLET (FP) PO SCH (21:36)
[2019-10-08] MEDS: AMITRIPTYLINE HCL 25 MG TABLET PO SCH (21:46)
[2019-10-09] MEDS: hydrALAZINE HCL 25 MG TABLET (FP) PO SCH ×3 (06:23→22:27)
[2019-10-09] MEDS ORDERED: ONDANSETRON 4 MG TABLET PO PRN (07:28)
[2019-10-09] MEDS ORDERED: ACETAMINOPHEN 325 MG TABLET (FP) PO PRN (08:05)
[2019-10-09] MEDS: CALCIUM ACETATE 667 MG CAPSULE (FP) PO SCH ×3 (09:18→18:19)
[2019-10-09] MEDS ORDERED: EPOETIN ALFA 10,000 UNIT/1 ML VIAL SQ ONE (10:00)
--- NOTE | 2019-10-09 12:41 | PN ---
Progress Note, Physician Chief Complaint: The patient seen and examined while receiving dialysis. Reports feeling better. Again discussed compliance with dialysis regimen. History of Present Illness: 84 year old woman with history of ESRD no HD, current smoker, DM, hypertension who presented from home with weakness and tremors and having missed dialysis. 1. ESRD on HD who missed several dialysis sessions. 2. Tremors/Weakness w/o evidence of CVA 3. Hypertension 4. DM 5. Anxiety 6. CKD related Anemia 7. Confusion The patient is doing remarkably well now that she is taking her dialysis. Cristela Canales MD - Current Medication List Current Medications: Active Medications Acetaminophen (Tylenol -) 650 mg PO Q6H PRN PRN Reason: FEVER Alprazolam (Xanax -) 0.25 mg PO Q8H PRN PRN Reason: ANXIETY Amitriptyline HCl (Elavil -) 50 mg PO HS [facility] Aspirin (Asa -) 81 mg PO DAILY [facility] Atorvastatin Calcium (Lipitor -) 80 mg PO HS [facility] Bacitracin (Bacitracin -) 1 applic TP DAILY [facility] Calcitriol (Rocaltrol -) 0.25 mcg PO DAILY [facility] Calcium Acetate (Phoslo -) 667 mg PO TIDCM [facility] Last Admin: 10/09/19 11:30 Dose: Not Given Cholestyramine Resin (Questran Light Packet -) 4 gm PO BID [facility] Clopidogrel Bisulfate (Plavix -) 75 mg PO DAILY [facility] Cyclobenzaprine HCl (Cyclobenzaprine Hcl) 5 mg PO BID [facility] Ferrous Sulfate (Feosol -) 325 mg PO BIDWM [facility] Hydralazine HCl (Apresoline -) 25 mg PO TID [facility] Last Admin: 10/09/19 06:23 Dose: 25 mg Isosorbide Mononitrate (Imdur -) 30 mg PO DAILY [facility] Labetalol HCl (Normodyne -) 200 mg PO BID [facility] Losartan Potassium (Cozaar -) 100 mg PO DAILY [facility] Nifedipine (Procardia Xl -) 120 mg PO DAILY [facility] Ondansetron HCl (Zofran -) 4 mg PO BID PRN PRN Reason: NAUSEA AND/OR VOMITING - Objective Vital Signs: Vital Signs Temperature 97.6 F 10/09/19 09:50 Pulse Rate 68 10/09/19 12:25 Respiratory Rate 18 10/09/19 12:25 Blood Pressure 170/87 10/09/19 12:25 O2 Sat by Pulse Oximetry (%) 98 10/08/19 23:00 Labs: CBC, BMP 10/04/19 10:00 10/04/19 10:00 Problem List - Problems (1) Anxiety Code(s): F41.9 - ANXIETY DISORDER, UNSPECIFIED (2) Uncontrolled hypertension Code(s): I10 - ESSENTIAL (PRIMARY) HYPERTENSION (3) CAD (coronary artery disease) Code(s): I25.10 - ATHSCL HEART DISEASE OF [place] CORONARY ARTERY W/O ANG PCTRS Qualifiers: Coronary Disease-Associated Artery/Lesion type: [place] artery [place] vs. transplanted heart: [place] heart Associated angina: without angina Qualified Code(s): I25.10 - Atherosclerotic heart disease of [place] coronary artery without angina pectoris (4) COPD (chronic obstructive pulmonary disease) Code(s): J44.9 - CHRONIC OBSTRUCTIVE PULMONARY DISEASE, UNSPECIFIED (5) ESRD (end stage renal disease) on dialysis Code(s): N18.6 - END STAGE RENAL DISEASE; Z99.2 - DEPENDENCE ON RENAL DIALYSIS (6) Hypertension Code(s): I10 - ESSENTIAL (PRIMARY) HYPERTENSION (7) Diabetes mellitus Code(s): E11.9 - TYPE 2 DIABETES MELLITUS WITHOUT COMPLICATIONS Qualifiers: Diabetes mellitus type: type 2 Diabetes mellitus complication status: with kidney complications Diabetes mellitus complication detail: with chronic kidney disease Chronic kidney disease stage: on chronic dialysis
--- NOTE | 2019-10-09 12:45 | PN ---
Progress Note, Physician History of Present Illness: Pt w/o cg, SOB, CP, palpitations, dizziness, abd pain. - Current Medication List Current Medications: Active Medications Acetaminophen (Tylenol -) 650 mg PO Q6H PRN PRN Reason: FEVER Alprazolam (Xanax -) 0.25 mg PO Q8H PRN PRN Reason: ANXIETY Amitriptyline HCl (Elavil -) 50 mg PO HS [facility] Aspirin (Asa -) 81 mg PO DAILY [facility] Atorvastatin Calcium (Lipitor -) 80 mg PO HS [facility] Bacitracin (Bacitracin -) 1 applic TP DAILY [facility] Calcitriol (Rocaltrol -) 0.25 mcg PO DAILY [facility] Calcium Acetate (Phoslo -) 667 mg PO TIDCM [facility] Last Admin: 10/09/19 11:30 Dose: Not Given Cholestyramine Resin (Questran Light Packet -) 4 gm PO BID [facility] Clopidogrel Bisulfate (Plavix -) 75 mg PO DAILY [facility] Cyclobenzaprine HCl (Cyclobenzaprine Hcl) 5 mg PO BID [facility] Ferrous Sulfate (Feosol -) 325 mg PO BIDWM [facility] Hydralazine HCl (Apresoline -) 25 mg PO TID [facility] Last Admin: 10/09/19 06:23 Dose: 25 mg Isosorbide Mononitrate (Imdur -) 30 mg PO DAILY [facility] Labetalol HCl (Normodyne -) 200 mg PO BID [facility] Losartan Potassium (Cozaar -) 100 mg PO DAILY [facility] Nifedipine (Procardia Xl -) 120 mg PO DAILY [facility] Ondansetron HCl (Zofran -) 4 mg PO BID PRN PRN Reason: NAUSEA AND/OR VOMITING - Objective Vital Signs: Vital Signs Temperature 97.6 F 10/09/19 09:50 Pulse Rate 68 10/09/19 12:25 Respiratory Rate 18 10/09/19 12:25 Blood Pressure 170/87 10/09/19 12:25 O2 Sat by Pulse Oximetry (%) 98 10/08/19 23:00 Constitutional: Yes: No Distress, Calm Cardiovascular: Yes: Regular Rate and Rhythm, S1, S2 Respiratory: Yes: Regular, CTA Bilaterally. No: Rales Gastrointestinal: Yes: Normal Bowel Sounds, Soft. No: Tenderness Edema: No Neurological: Yes: Alert, Oriented Labs: CBC, BMP 10/04/19 10:00 10/04/19 10:00 Problem List - Problems (1) TIA (transient ischemic attack) Code(s): G45.9 - TRANSIENT CEREBRAL ISCHEMIC ATTACK, UNSPECIFIED (2) Anxiety Code(s): F41.9 - ANXIETY DISORDER, UNSPECIFIED (3) Hypertension Code(s): I10 - ESSENTIAL (PRIMARY) HYPERTENSION (4) ESRD (end stage renal disease) on dialysis Code(s): N18.6 - END STAGE RENAL DISEASE; Z99.2 - DEPENDENCE ON RENAL DIALYSIS (5) CAD (coronary artery disease) Code(s): I25.10 - ATHSCL HEART DISEASE OF [place] CORONARY ARTERY W/O ANG PCTRS Qualifiers: Coronary Disease-Associated Artery/Lesion type: [place] artery [place] vs. transplanted heart: [place] heart Associated angina: without angina Qualified Code(s): I25.10 - Atherosclerotic heart disease of [place] coronary artery without angina pectoris (6) Diabetes mellitus Code(s): E11.9 - TYPE 2 DIABETES MELLITUS WITHOUT COMPLICATIONS Qualifiers: Diabetes mellitus type: type 2 Diabetes mellitus complication status: with kidney complications Diabetes mellitus complication detail: with chronic kidney disease Chronic kidney disease stage: on chronic dialysis (7) Uncontrolled hypertension Code(s): I10 - ESSENTIAL (PRIMARY) HYPERTENSION (8) Unsteady gait Code(s): R26.81 - UNSTEADINESS ON FEET Assessment/Plan s/p HD today Neuro and Renal consults are appreciated. Labetalol and Hydralazine were added for better BP control; this AM BP was elevated, coming down now To monitor BP Xanax was increased to TID, PRN. To f/u with PT. To f/u with CM
[2019-10-09] MEDS: LOSARTAN POTASSIUM 50 MG TABLET (FP) PO SCH (13:51)
[2019-10-09] MEDS: LABETALOL HCL 100 MG TABLET (FP) PO SCH ×2 (13:52→22:27)
[2019-10-09] MEDS: ISOSORBIDE MONONITRATE 30 MG TAB.SR.24H (FP) PO SCH (13:52)
[2019-10-09] MEDS: CALCITRIOL 0.25 MCG CAPSULE (FP) PO SCH (13:52)
[2019-10-09] MEDS: CYCLOBENZAPRINE HCL 5 MG TABLET PO SCH ×2 (13:53→22:27)
[2019-10-09] MEDS: ASPIRIN 81 MG CHEWABLE TABLETS PO SCH (13:53)
[2019-10-09] MEDS: BACITRACIN 15 GM TUBE TOPICAL OINTMENT TP SCH (13:53)
[2019-10-09] MEDS: CLOPIDOGREL BISULFATE 75 MG TABLET (FP) PO SCH (13:53)
[2019-10-09] MEDS: NIFEdipine E.R 60 MG TABLET PO SCH (13:55)
[2019-10-09] MEDS: CHOLESTYRAMINE/ASPARTAME 4 GM PACKET PO SCH ×2 (13:56→22:28)
[2019-10-09] MEDS: ALPRAZolam 0.25 MG TABLET PO PRN ×2 (14:15→22:28)
[2019-10-09] MEDS: FERROUS SO4 325 MG TABLET (FP) PO SCH (18:19)
[2019-10-09] MEDS: ATORVASTATIN CA 80 MG TABLET (FP) PO SCH (22:27)
[2019-10-09] MEDS: AMITRIPTYLINE HCL 25 MG TABLET PO SCH (22:27)
[2019-10-10] MEDS: hydrALAZINE HCL 25 MG TABLET (FP) PO SCH ×3 (06:48→22:44)
[2019-10-10] MEDS: ALPRAZolam 0.25 MG TABLET PO PRN ×2 (08:29→15:04)
--- NOTE | 2019-10-10 08:52 | PN ---
Progress Note (short form) - Note Progress Note: Neurology History of Present Illness - General Chief Complaint: Tremors Primary Care Physician: Dr. Flores FABIAN The patient is an 84 year old female, with a significant past medical history of htn, esrd (on hd m,w last session 09/23 for approx. 1.5 months), diabetes, anemia, anxiety, pvd, oa, 64 pack-year smoker, who presented to the emergency department secondary to missing dialysis. As per patient, she missed her dialysis session 4 days prior to day of admission on Monday (09/25) secondary to panic attacks (patient ran out of her anxiety medications). Patient was evaluated twice (09/27, 09/29) for weakness and anxiety. Upon patients initial presentation 09/27 she was given a prescription for Xanax but , was unable to fill the prescription secondary to it being the weekend thus she reported to the ED on day prior to admission. Patient presented to the ED today secondary to tremors and the inability to walk since the morning. She noted to have been without her Xanax 0.25 (takes BID) for the past 4 days. She c /o slurred speech and unsteadiness on her feet on day of admission. She reported that she was in the hospital on day before admission because she felt unwell and was dc to home (she lives alone/no HOG STICKER). On day of admission, she attempted to call her neighbor (time unclear) and she noticed her speech was slurring (subjective slurring). She then attempted to get out of bed (walks with walker) and was unsteady on her feet. She normally walks with a walker. She denied PARR, vision change, and numbness/tingling. This has never happened before. She has not fallen. She did not hit her head. She never lost consciousness. NIHSS 1 for saying the month is August and not September. Ct of head performed and showed no acute intracranial pathology. Generalized volume loss with moderate ventricular dilatation and extensive periventricular chronic microvascular ischemic changes. Left posterior calcified mass/meningioma without significant interval change in comparison to prior CT on 09/26/2018. Neurologically, patient without deficits and on admission there was concern for CVA which does not appear to be the case. Patient without focal deficits, normal speech, mental status at baseline. She does complain of muscle spasms and which she described as shaking. I did not visualize any involuntary movements but we discussed trial of cyclobenzaprine 5 mg twice a day in hopes that this will provide some relief, which was initiated and provided significant relief, but during my visit today she indicated that the benefits seemed to be wearing off and therefore discussed adjusting the dose to 3 times a day and she was in agreement. She denied any dizziness drowsiness or other side effects related to the cyclobenzaprine. Active Medications Acetaminophen (Tylenol -) 650 mg PO Q6H PRN PRN Reason: FEVER Alprazolam (Xanax -) 0.25 mg PO Q8H PRN PRN Reason: ANXIETY Last Admin: 10/10/19 08:29 Dose: 0.25 mg Amitriptyline HCl (Elavil -) 50 mg PO [facility] Last Admin: 10/09/19 22:27 Dose: 50 mg Aspirin (Asa -) 81 mg PO DAILY [facility] Last Admin: 10/09/19 13:53 Dose: 81 mg Atorvastatin Calcium (Lipitor -) 80 mg PO HS [facility] Last Admin: 10/09/19 22:27 Dose: 80 mg Bacitracin (Bacitracin -) 1 applic TP DAILY [facility] Last Admin: 10/09/19 13:53 Dose: Not Given Calcitriol (Rocaltrol -) 0.25 mcg PO DAILY [facility] Last Admin: 10/09/19 13:52 Dose: 0.25 mcg Calcium Acetate (Phoslo -) 667 mg PO TIDCM [facility] Last Admin: 10/09/19 18:19 Dose: 667 mg Cholestyramine Resin (Questran Light Packet -) 4 gm PO BID [facility] Last Admin: 10/09/19 22:28 Dose: Not Given Clopidogrel Bisulfate (Plavix -) 75 mg PO DAILY [facility] Last Admin: 10/09/19 13:53 Dose: 75 mg Cyclobenzaprine HCl (Cyclobenzaprine Hcl) 5 mg PO BID [facility] Last Admin: 10/09/19 22:27 Dose: 5 mg Ferrous Sulfate (Feosol -) 325 mg PO BIDWM [facility] Last Admin: 10/09/19 18:19 Dose: 325 mg Hydralazine HCl (Apresoline -) 25 mg PO TID [facility] Last Admin: 10/10/19 06:48 Dose: 25 mg Isosorbide Mononitrate (Imdur -) 30 mg PO DAILY [facility] Last Admin: 10/09/19 13:52 Dose: 30 mg Labetalol HCl (Normodyne -) 200 mg PO BID [facility] Last Admin: 10/09/19 22:27 Dose: Not Given Losartan Potassium (Cozaar -) 100 mg PO DAILY [facility] Last Admin: 10/09/19 13:51 Dose: 100 mg Nifedipine (Procardia Xl -) 120 mg PO DAILY [facility] Last Admin: 10/09/19 13:55 Dose: 120 mg Ondansetron HCl (Zofran -) 4 mg PO BID PRN PRN Reason: NAUSEA AND/OR VOMITING *Physical Exam - Vital Signs Vital Signs Period Temp Pulse Resp BP Sys/Banuelos Pulse Ox Last 24 Hr 97.6 F-98.8 F 63-72 18-20 116-180/40-87 98-98 GENERAL: AO x3 NAD , anxious HEAD: NCAT EYES: ЮЛИЯ, EOMI, sclera anicteric, conjunctiva clear. No ptosis. ENT: Ears normal, nares patent, oropharynx clear without exudates, dry mucous membranes. NECK: Trachea midline, full range of motion, supple. LUNGS: CTAB , no wheezes, no crackles, no accessory muscle use. HEART: RRR, S1, S2 without murmur, rub or gallop. ABDOMEN: Soft, nontender, nondistended, normoactive bowel sounds, no guarding, no rebound, no hepatosplenomegaly, no masses. EXTREMITIES: 2+ pulses, warm, well-perfused, no edema. NEUROLOGICAL: Cranial nerves II through XII grossly intact. Normal speech, gait not observed. FTN neg. Refused to participate in [id number]. No disdiadokinesia. Pt sat at edge of the bed and swang feet, then refused to participate in walking. 4/5 LUE distal flexor strength, otherwise 5/5 throughout in distal and prox felx/extensors. Gross sensation intact. NO RIGHT patellar reflex, 2+ LEFT patellar reflex, no brachial reflexes elicited. PSYCH: Normal mood, normal affect. SKIN: Warm, dry, normal turgor, no rashes or lesions noted CBCD WBC 4.4 K/mm3 (4.0-10.0) 10/04/19 10:00 RBC 3.17 M/mm3 (3.60-5.2) L 10/04/19 10:00 Hgb 10.0 GM/dL (10.7-15.3) L 10/04/19 10:00 Hct 30.9 % (32.4-45.2) L 10/04/19 10:00 MCV 97.7 fl (80-96) H 10/04/19 10:00 MCHC 32.3 g/dl (32.0-36.0) 10/04/19 10:00 RDW 15.5 % (11.6-15.6) 10/04/19 10:00 Plt Count 239 K/MM3 (134-434) 10/04/19 10:00 MPV 8.5 fl (7.5-11.1) 10/04/19 10:00 CMP Sodium 139 mmol/L (136-145) 10/04/19 10:00 Potassium 4.3 mmol/L (3.5-5.1) 10/04/19 10:00 Chloride 106 mmol/L (98-107) 10/04/19 10:00 Carbon Dioxide 24 mmol/L (21-32) 10/04/19 10:00 Anion Gap 9 MMOL/L (8-16) 10/04/19 10:00 BUN 35.3 mg/dL (7-18) H 10/04/19 10:00 Creatinine 7.5 mg/dL (0.55-1.3) H* 10/04/19 10:00 Random Glucose 186 mg/dL (74-106) H 10/04/19 10:00 Calcium 8.0 mg/dL (8.5-10.1) L 10/04/19 10:00 Total Bilirubin 0.3 mg/dL (0.2-1) 09/30/19 13:30 AST 18 U/L (15-37) 09/30/19 13:30 ALT 20 U/L (13-61) 09/30/19 13:30 Alkaline Phosphatase 81 U/L (45-117) 09/30/19 13:30 Total Protein 7.0 g/dl (6.4-8.2) 09/30/19 13:30 Albumin 3.2 g/dl (3.4-5.0) L 09/30/19 13:30 CARDIAC ENZYMES Creatine Kinase 91 U/L (26-192) 09/30/19 13:30 Troponin I < 0.02 ng/ml (0.00-0.05) 09/30/19 13:30 Plan The patient is an 84 year old female, with a significant past medical history of htn, esrd (on hd m,w last session 09/23 for approx. 1.5 months), diabetes, anemia, anxiety, pvd, oa, 64 pack-year smoker, who presented to the emergency department secondary to missing dialysis. As per patient, she missed her dialysis session 4 days prior to day of admission on Monday (09/25) secondary to panic attacks (patient ran out of her anxiety medications). Patient was evaluated twice (09/27, 09/29) for weakness and anxiety. Upon patients initial presentation 09/27 she was given a prescription for Xanax but , was unable to fill the prescription secondary to it being the weekend thus she reported to the ED on day prior to admission. Patient presented to the ED today secondary to tremors and the inability to walk since the morning. She noted to have been without her Xanax 0.25 (takes BID) for the past 4 days. She c /o slurred speech and unsteadiness on her feet on day of admission. She reported that she was in the hospital on day before admission because she felt unwell and was dc to home (she lives alone/no HOG STICKER). On day of admission, she attempted to call her neighbor (time unclear) and she noticed her speech was slurring (subjective slurring). She then attempted to get out of bed (walks with walker) and was unsteady on her feet. She normally walks with a walker. She denied PARR, vision change, and numbness/tingling. This has never happened before. She has not fallen. She did not hit her head. She never lost consciousness. NIHSS 1 for saying the month is August and not September. Ct of head performed and showed no acute intracranial pathology. Generalized volume loss with moderate ventricular dilatation and extensive periventricular chronic microvascular ischemic changes. Left posterior calcified mass/meningioma without significant interval change in comparison to prior CT on 09/26/2018. Neurologically, patient without deficits and on admission there was concern for CVA which does not appear to be the case. Patient without focal deficits, normal speech, mental status at baseline. Patient for HD and this would be of benefit for clearing toxins, metabolites. Recommend monitoring anxiety which also precipitate subsequent episodes. She does complain of muscle spasms and which she described as shaking. I did not visualize any shaking but she reports its more noticeable when she is ambulating. Cyclobenzaprine started and she reports shaking sensation improved, , but during my visit today she indicated that the benefits seemed to be wearing off and therefore discussed adjusting the dose to 3 times a day and she was in agreement. She denied any dizziness drowsiness or other side effects related to the cyclobenzaprine. Feels she's at baseline now. Monitor blood pressure, maintain normotensive range. L posterior meningioma not likely etiology to her complaints and chronic, does not require acute intervention. Can continue flexeril as outpatient follow-up placement as per primary care, case management. Medication has been helpful and not sedating. Neurologically otherwise stable at this time.
[2019-10-10] MEDS ORDERED: PT OWN MED DRAWER 7, Y5N ONE (09:37)
[2019-10-10] MEDS: CLOPIDOGREL BISULFATE 75 MG TABLET (FP) PO SCH (09:40)
[2019-10-10] MEDS: ISOSORBIDE MONONITRATE 30 MG TAB.SR.24H (FP) PO SCH (09:40)
[2019-10-10] MEDS: CALCIUM ACETATE 667 MG CAPSULE (FP) PO SCH ×3 (09:40→17:38)
[2019-10-10] MEDS: NIFEdipine E.R 60 MG TABLET PO SCH (09:40)
[2019-10-10] MEDS: LOSARTAN POTASSIUM 50 MG TABLET (FP) PO SCH (09:41)
[2019-10-10] MEDS: ASPIRIN 81 MG CHEWABLE TABLETS PO SCH (09:42)
[2019-10-10] MEDS: LABETALOL HCL 100 MG TABLET (FP) PO SCH ×2 (09:42→21:35)
[2019-10-10] MEDS: FERROUS SO4 325 MG TABLET (FP) PO SCH ×2 (09:42→17:38)
[2019-10-10] MEDS: CHOLESTYRAMINE/ASPARTAME 4 GM PACKET PO SCH ×2 (09:43→21:37)
[2019-10-10] MEDS: CALCITRIOL 0.25 MCG CAPSULE (FP) PO SCH (09:43)
[2019-10-10] MEDS: BACITRACIN 15 GM TUBE TOPICAL OINTMENT TP SCH (10:12)
[2019-10-10] MEDS: CYCLOBENZAPRINE HCL 5 MG TABLET PO SCH ×2 (15:05→21:27)
--- NOTE | 2019-10-10 18:06 | CON.PSY ---
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 She has a long history of anxiety disorder and multipler cHronic medical conditions, on Dialysis. She apparantly has been refusing care and proper follow up. Neuro consult appreciated. Patient is alert and is able to comprehend and converse with good memory. Symptoms: reports: Anxiety, Panic Attacks - Previous Psychiatric Treatment Outpatient: Less than 6 mos ago Inpatient: None - Previous Substance Abuse Treatment Outpatient: None Inpatient: None - Reason for Previous Treatment Reason for Previous Treatment: Anxiety or Panic Disorder - Current Medications Current Medications: Active Medications Acetaminophen (Tylenol -) 650 mg PO Q6H PRN PRN Reason: FEVER Alprazolam (Xanax -) 0.25 mg PO Q8H PRN PRN Reason: ANXIETY Last Admin: 10/10/19 15:04 Dose: 0.25 mg Amitriptyline HCl (Elavil -) 50 mg PO [facility] Last Admin: 10/09/19 22:27 Dose: 50 mg Aspirin (Asa -) 81 mg PO DAILY [facility] Last Admin: 10/10/19 09:42 Dose: 81 mg Atorvastatin Calcium (Lipitor -) 80 mg PO [facility] Last Admin: 10/09/19 22:27 Dose: 80 mg Bacitracin (Bacitracin -) 1 applic TP DAILY [facility] Last Admin: 10/10/19 10:12 Dose: Not Given Calcitriol (Rocaltrol -) 0.25 mcg PO DAILY [facility] Last Admin: 10/10/19 09:43 Dose: 0.25 mcg Calcium Acetate (Phoslo -) 667 mg PO TIDCM [facility] Last Admin: 10/10/19 17:38 Dose: 667 mg Cholestyramine Resin (Questran Light Packet -) 4 gm PO BID [facility] Last Admin: 10/10/19 09:43 Dose: 4 gm Clopidogrel Bisulfate (Plavix -) 75 mg PO DAILY [facility] Last Admin: 10/10/19 09:40 Dose: 75 mg Cyclobenzaprine HCl (Cyclobenzaprine Hcl) 5 mg PO TID [facility] Last Admin: 10/10/19 15:05 Dose: 5 mg Ferrous Sulfate (Feosol -) 325 mg PO BIDWM [facility] Last Admin: 10/10/19 17:38 Dose: 325 mg Hydralazine HCl (Apresoline -) 25 mg PO TID [facility] Last Admin: 10/10/19 15:04 Dose: 25 mg Isosorbide Mononitrate (Imdur -) 30 mg PO DAILY [facility] Last Admin: 10/10/19 09:40 Dose: 30 mg Labetalol HCl (Normodyne -) 200 mg PO BID [facility] Last Admin: 10/10/19 09:42 Dose: 200 mg Losartan Potassium (Cozaar -) 100 mg PO DAILY [facility] Last Admin: 10/10/19 09:41 Dose: 100 mg Nifedipine (Procardia Xl -) 120 mg PO DAILY [facility] Last Admin: 10/10/19 09:40 Dose: 120 mg Ondansetron HCl (Zofran -) 4 mg PO BID PRN PRN Reason: NAUSEA AND/OR VOMITING - Allergies Allergies: Allergies Allergy/AdvReac Type Severity Reaction Status Date / Time iodine Allergy Rash Verified 09/30/19 10:45 penicillin V Allergy Verified 09/30/19 10:45 shellfish derived Allergy Rash Verified 09/30/19 10:45 vancomycin Allergy Verified 09/30/19 10:45 azithromycin AdvReac Verified 09/30/19 10:45 - Current Living Status Usual Living Arrangement: Alone - Current Mental Status Evaluation Appearance: Disheveled Attitude: Cooperative - Affect Affect: Full Range, Constrictive Appropriateness: Appropriate to Content - Mood Mood: Euthymic - Speech/Language Expressive: Coherent - Psychomotor Activity Psychomotor Activity: Normal - Thought Process Thought Process: Intact - Thought Content Hallucinations: Absent Delusions: Absent - Self Perception Self Perception: No Impairment - Cognition Attention: Alert Orientation: Time Memory, Immediate Recall: Intact Memory, Short Term: 3/3 Memory, Remote with Promptin/3 - Concentration Serial Sevens Intact: Yes Simple Calculations Intact: Yes - Abstraction Proverb Interpretation: Intact Judgement: Minimally Impaired - Insight Insight: Intact - Impulse Control Impulse Control: Good Control - Suicidal Ideation Suicidal Ideation: No - Homicidal Ideation Homicidal Ideation: No Assessment/Plan 1) Patient has the Capacity to make decisions at this time.
--- NOTE | 2019-10-10 19:46 | PN ---
Progress Note, Physician History of Present Illness: Pt w/o cough, SOB, CP, palpitations, dizziness, abd pain. - Current Medication List Current Medications: Active Medications Acetaminophen (Tylenol -) 650 mg PO Q6H PRN PRN Reason: FEVER Alprazolam (Xanax -) 0.25 mg PO Q8H PRN PRN Reason: ANXIETY Last Admin: 10/10/19 15:04 Dose: 0.25 mg Amitriptyline HCl (Elavil -) 50 mg PO HS [facility] Last Admin: 10/09/19 22:27 Dose: 50 mg Aspirin (Asa -) 81 mg PO DAILY [facility] Last Admin: 10/10/19 09:42 Dose: 81 mg Atorvastatin Calcium (Lipitor -) 80 mg PO [facility] Last Admin: 10/09/19 22:27 Dose: 80 mg Bacitracin (Bacitracin -) 1 applic TP DAILY [facility] Last Admin: 10/10/19 10:12 Dose: Not Given Calcitriol (Rocaltrol -) 0.25 mcg PO DAILY [facility] Last Admin: 10/10/19 09:43 Dose: 0.25 mcg Calcium Acetate (Phoslo -) 667 mg PO TIDCM [facility] Last Admin: 10/10/19 17:38 Dose: 667 mg Cholestyramine Resin (Questran Light Packet -) 4 gm PO BID [facility] Last Admin: 10/10/19 09:43 Dose: 4 gm Clopidogrel Bisulfate (Plavix -) 75 mg PO DAILY [facility] Last Admin: 10/10/19 09:40 Dose: 75 mg Cyclobenzaprine HCl (Cyclobenzaprine Hcl) 5 mg PO TID [facility] Last Admin: 10/10/19 15:05 Dose: 5 mg Ferrous Sulfate (Feosol -) 325 mg PO BIDWM [facility] Last Admin: 10/10/19 17:38 Dose: 325 mg Hydralazine HCl (Apresoline -) 25 mg PO TID [facility] Last Admin: 10/10/19 15:04 Dose: 25 mg Hydralazine HCl (Apresoline -) 25 mg PO ONCE ONE Stop: 10/10/19 22:01 Isosorbide Mononitrate (Imdur -) 30 mg PO DAILY [facility] Last Admin: 10/10/19 09:40 Dose: 30 mg Labetalol HCl (Normodyne -) 200 mg PO BID [facility] Last Admin: 10/10/19 09:42 Dose: 200 mg Losartan Potassium (Cozaar -) 100 mg PO DAILY [facility] Last Admin: 10/10/19 09:41 Dose: 100 mg Nifedipine (Procardia Xl -) 120 mg PO DAILY [facility] Last Admin: 10/10/19 09:40 Dose: 120 mg Ondansetron HCl (Zofran -) 4 mg PO BID PRN PRN Reason: NAUSEA AND/OR VOMITING - Objective Vital Signs: Vital Signs Temperature 98 F 10/10/19 10:22 Pulse Rate 78 10/10/19 10:22 Respiratory Rate 18 10/10/19 15:00 Blood Pressure 124/54 L 10/10/19 10:22 O2 Sat by Pulse Oximetry (%) 98 10/10/19 15:00 Constitutional: Yes: No Distress, Calm Cardiovascular: Yes: Regular Rate and Rhythm, S1, S2 Respiratory: Yes: Regular, CTA Bilaterally. No: Rales Gastrointestinal: Yes: Normal Bowel Sounds, Soft. No: Tenderness Edema: No Neurological: Yes: Alert, Oriented Labs: CBC, BMP 10/04/19 10:00 10/04/19 10:00 Problem List - Problems (1) TIA (transient ischemic attack) Code(s): G45.9 - TRANSIENT CEREBRAL ISCHEMIC ATTACK, UNSPECIFIED (2) Anxiety Code(s): F41.9 - ANXIETY DISORDER, UNSPECIFIED (3) Hypertension Code(s): I10 - ESSENTIAL (PRIMARY) HYPERTENSION (4) ESRD (end stage renal disease) on dialysis Code(s): N18.6 - END STAGE RENAL DISEASE; Z99.2 - DEPENDENCE ON RENAL DIALYSIS (5) CAD (coronary artery disease) Code(s): I25.10 - ATHSCL HEART DISEASE OF [place] CORONARY ARTERY W/O ANG PCTRS Qualifiers: Coronary Disease-Associated Artery/Lesion type: [place] artery [place] vs. transplanted heart: [place] heart Associated angina: without angina Qualified Code(s): I25.10 - Atherosclerotic heart disease of [place] coronary artery without angina pectoris (6) Diabetes mellitus Code(s): E11.9 - TYPE 2 DIABETES MELLITUS WITHOUT COMPLICATIONS Qualifiers: Diabetes mellitus type: type 2 Diabetes mellitus complication status: with kidney complications Diabetes mellitus complication detail: with chronic kidney disease Chronic kidney disease stage: on chronic dialysis (7) Uncontrolled hypertension Code(s): I10 - ESSENTIAL (PRIMARY) HYPERTENSION (8) Unsteady gait Code(s): R26.81 - UNSTEADINESS ON FEET Assessment/Plan Psychiatry consult is appreciated Neuro and Renal consults are appreciated. Labetalol and Hydralazine were added for better BP control. In AM BP is elevated, then coming down; to add extra Hydralazine with night dose and monitor BP in early AM hours To monitor BP Xanax was increased to TID, PRN. To f/u with PT. To f/u with CM
--- NOTE | 2019-10-10 20:12 | PN ---
Progress Note, Physician History of Present Illness: Pt seen and examined at bedside. She is awake and alert. She denies shortness of breath. - Current Medication List Current Medications: Active Medications Acetaminophen (Tylenol -) 650 mg PO Q6H PRN PRN Reason: FEVER Alprazolam (Xanax -) 0.25 mg PO Q8H PRN PRN Reason: ANXIETY Last Admin: 10/10/19 15:04 Dose: 0.25 mg Amitriptyline HCl (Elavil -) 50 mg PO HS [facility] Last Admin: 10/09/19 22:27 Dose: 50 mg Aspirin (Asa -) 81 mg PO DAILY [facility] Last Admin: 10/10/19 09:42 Dose: 81 mg Atorvastatin Calcium (Lipitor -) 80 mg PO [facility] Last Admin: 10/09/19 22:27 Dose: 80 mg Bacitracin (Bacitracin -) 1 applic TP DAILY [facility] Last Admin: 10/10/19 10:12 Dose: Not Given Calcitriol (Rocaltrol -) 0.25 mcg PO DAILY [facility] Last Admin: 10/10/19 09:43 Dose: 0.25 mcg Calcium Acetate (Phoslo -) 667 mg PO TIDCM [facility] Last Admin: 10/10/19 17:38 Dose: 667 mg Cholestyramine Resin (Questran Light Packet -) 4 gm PO BID [facility] Last Admin: 10/10/19 09:43 Dose: 4 gm Clopidogrel Bisulfate (Plavix -) 75 mg PO DAILY [facility] Last Admin: 10/10/19 09:40 Dose: 75 mg Cyclobenzaprine HCl (Cyclobenzaprine Hcl) 5 mg PO TID [facility] Last Admin: 10/10/19 15:05 Dose: 5 mg Ferrous Sulfate (Feosol -) 325 mg PO BIDWM [facility] Last Admin: 10/10/19 17:38 Dose: 325 mg Hydralazine HCl (Apresoline -) 25 mg PO TID [facility] Last Admin: 10/10/19 15:04 Dose: 25 mg Hydralazine HCl (Apresoline -) 25 mg PO ONCE ONE Stop: 10/10/19 22:01 Isosorbide Mononitrate (Imdur -) 30 mg PO DAILY [facility] Last Admin: 10/10/19 09:40 Dose: 30 mg Labetalol HCl (Normodyne -) 200 mg PO BID [facility] Last Admin: 10/10/19 09:42 Dose: 200 mg Losartan Potassium (Cozaar -) 100 mg PO DAILY [facility] Last Admin: 10/10/19 09:41 Dose: 100 mg Nifedipine (Procardia Xl -) 120 mg PO DAILY [facility] Last Admin: 10/10/19 09:40 Dose: 120 mg Ondansetron HCl (Zofran -) 4 mg PO BID PRN PRN Reason: NAUSEA AND/OR VOMITING - Objective Vital Signs: Vital Signs Temperature 97.5 F L 10/10/19 19:48 Pulse Rate 62 10/10/19 19:48 Respiratory Rate 18 10/10/19 19:48 Blood Pressure 102/54 L 10/10/19 19:48 O2 Sat by Pulse Oximetry (%) 98 10/10/19 15:00 Constitutional: Yes: Calm Eyes: Yes: Conjunctiva Clear HENT: Yes: Atraumatic Neck: Yes: Supple Cardiovascular: Yes: S1, S2 Respiratory: Yes: CTA Bilaterally Gastrointestinal: Yes: Soft Genitourinary: Yes: WNL Musculoskeletal: Yes: WNL Edema: No Neurological: Yes: Oriented Psychiatric: Yes: Oriented Labs: CBC, BMP 10/04/19 10:00 10/04/19 10:00 Problem List - Problems (1) ESRD (end stage renal disease) on dialysis Code(s): N18.6 - END STAGE RENAL DISEASE; Z99.2 - DEPENDENCE ON RENAL DIALYSIS Assessment/Plan Current Medications Generic Name Dose Route Start Last Admin Trade Name Freq PRN Reason Stop Dose Admin Acetaminophen 650 mg 10/09/19 08:05 Tylenol - PO Q6H PRN FEVER Alprazolam 0.25 mg 10/09/19 07:28 10/10/19 15:04 Xanax - PO 0.25 mg Q8H PRN Administration ANXIETY Amitriptyline HCl 50 mg 10/09/19 22:00 10/09/19 22:27 Elavil - PO 50 mg HS [facility] Administration Aspirin 81 mg 10/09/19 10:00 10/10/19 09:42 Asa - PO 81 mg DAILY [facility] Administration Atorvastatin Calcium 80 mg 10/09/19 22:00 10/09/19 22:27 Lipitor - PO 80 mg HS [facility] Administration Bacitracin 1 applic 10/09/19 10:00 10/10/19 10:12 Bacitracin - TP Not Given DAILY [facility] Calcitriol 0.25 mcg 10/09/19 10:00 10/10/19 09:43 Rocaltrol - PO 0.25 mcg DAILY [facility] Administration Calcium Acetate 667 mg 10/09/19 08:00 10/10/19 17:38 Phoslo - PO 667 mg TIDCM [facility] Administration Cholestyramine Resin 4 gm 10/09/19 10:00 10/10/19 09:43 Questran Light Packet - PO 4 gm BID [facility] Administration Clopidogrel Bisulfate 75 mg 10/09/19 10:00 10/10/19 09:40 Plavix - PO 75 mg DAILY [facility] Administration Cyclobenzaprine HCl 5 mg 10/10/19 14:00 10/10/19 15:05 Cyclobenzaprine Hcl PO 5 mg TID [facility] Administration Ferrous Sulfate 325 mg 10/09/19 17:30 10/10/19 17:38 Feosol - PO 325 mg BIDWM [facility] Administration Hydralazine HCl 25 mg 10/08/19 06:00 10/10/19 15:04 Apresoline - PO 25 mg TID [facility] Administration Hydralazine HCl 25 mg 10/10/19 22:00 Apresoline - PO 10/10/19 22:01 ONCE ONE Isosorbide Mononitrate 30 mg 10/09/19 10:00 10/10/19 09:40 Imdur - PO 30 mg DAILY [facility] Administration Labetalol HCl 200 mg 10/09/19 10:00 10/10/19 09:42 Normodyne - PO 200 mg BID [facility] Administration Losartan Potassium 100 mg 10/09/19 10:00 10/10/19 09:41 Cozaar - PO 100 mg DAILY [facility] Administration Nifedipine 120 mg 10/09/19 10:00 10/10/19 09:40 Procardia Xl - PO 120 mg DAILY [facility] Administration Ondansetron HCl 4 mg 10/09/19 07:28 Zofran - PO BID PRN NAUSEA AND/OR VOMITING 1. ESRD on HD with missed dialysis 2. Tremors/Weakness w/o evidence of CVA 3. Hypertension 4. DM 5. Anxiety 6. CKD related Anemia 7. Confusion Plan - HD in am - orders written - renal diet - monitor lytes - discussed compliance
[2019-10-10] MEDS: ATORVASTATIN CA 80 MG TABLET (FP) PO SCH (21:26)
[2019-10-10] MEDS: AMITRIPTYLINE HCL 25 MG TABLET PO SCH (21:26)
[2019-10-10] MEDS ORDERED: hydrALAZINE HCL 25 MG TABLET (FP) PO ONE (22:00)
[2019-10-10] MEDS ORDERED: DOCUSATE SODIUM 100 MG CAPSULE (FP) PO PRN (22:10)
[2019-10-10] MEDS ORDERED: LABETALOL HCL 200 MG TABLET (FP) PO SCH (22:55)
[2019-10-11] MEDS: hydrALAZINE HCL 25 MG TABLET (FP) PO SCH ×2 (06:01→13:44)
[2019-10-11] MEDS: CYCLOBENZAPRINE HCL 5 MG TABLET PO SCH ×2 (06:02→13:45)
[2019-10-11] MEDS: CALCIUM ACETATE 667 MG CAPSULE (FP) PO SCH ×3 (08:12→17:22)
[2019-10-11] MEDS: FERROUS SO4 325 MG TABLET (FP) PO SCH ×2 (08:13→17:22)
[2019-10-11] MEDS ORDERED: SODIUM CHLORIDE 250 ML IV PRN (08:53)
[2019-10-11] MEDS ORDERED: EPOETIN ALFA 10,000 UNIT/1 ML VIAL IVPUSH ONE (09:00)
[2019-10-11 09:20] LABS: HEMATOCRIT 29.7 % (32.4-45.2); MCHC 33.6 g/dl (32.0-36.0); MEAN CELL VOLUME 95.2 fl (80-96); MEAN PLT VOLUME 9.6 fl (7.5-11.1); PLATELET COUNT 220 K/MM3 (134-434); RBC 3.12 M/mm3 (3.60-5.2); RDW 15.1 % (11.6-15.6); WHITE BLOOD COUNT 3.9 K/mm3 (4.0-10.0)
[2019-10-11 10:14] LABS: BLOOD UREA NITROGEN 36.2 mg/dL (7-18); CALCIUM 8.3 mg/dL (8.5-10.1); CREATININE 5.8 mg/dL (0.55-1.3); POTASSIUM 4.1 mmol/L (3.5-5.1)
--- NOTE | 2019-10-11 13:24 | PN ---
Progress Note, Physician Chief Complaint: The patient seen and examined while receiving dialysis. Reports feeling better. Again discussed compliance with dialysis regimen. The patient tends to run hyperkalemia when she does not show up for dialysis History of Present Illness: 84 year old woman with history of ESRD no HD, current smoker, DM, hypertension who presented from home with weakness and tremors and having missed dialysis. 1. ESRD on HD who missed several dialysis sessions. 2. Tremors/Weakness w/o evidence of CVA 3. Hypertension 4. DM 5. Anxiety 6. CKD related Anemia 7. Confusion - Current Medication List Current Medications: Active Medications Acetaminophen (Tylenol -) 650 mg PO Q6H PRN PRN Reason: FEVER Alprazolam (Xanax -) 0.25 mg PO Q8H PRN PRN Reason: ANXIETY Last Admin: 10/10/19 15:04 Dose: 0.25 mg Amitriptyline HCl (Elavil -) 50 mg PO HS [facility] Last Admin: 10/10/19 21:26 Dose: 50 mg Aspirin (Asa -) 81 mg PO DAILY [facility] Last Admin: 10/10/19 09:42 Dose: 81 mg Atorvastatin Calcium (Lipitor -) 80 mg PO HS [facility] Last Admin: 10/10/19 21:26 Dose: 80 mg Bacitracin (Bacitracin -) 1 applic TP DAILY [facility] Last Admin: 10/10/19 10:12 Dose: Not Given Calcitriol (Rocaltrol -) 0.25 mcg PO DAILY [facility] Last Admin: 10/10/19 09:43 Dose: 0.25 mcg Calcium Acetate (Phoslo -) 667 mg PO TIDCM [facility] Last Admin: 10/11/19 08:12 Dose: 667 mg Cholestyramine Resin (Questran Light Packet -) 4 gm PO BID [facility] Last Admin: 10/10/19 21:37 Dose: Not Given Clopidogrel Bisulfate (Plavix -) 75 mg PO DAILY [facility] Last Admin: 10/10/19 09:40 Dose: 75 mg Cyclobenzaprine HCl (Cyclobenzaprine Hcl) 5 mg PO TID [facility] Last Admin: 10/11/19 06:02 Dose: 5 mg Docusate Sodium (Colace -) 100 mg PO HS PRN PRN Reason: CONSTIPATION Last Admin: 10/10/19 22:37 Dose: 100 mg Ferrous Sulfate (Feosol -) 325 mg PO BIDWM [facility] Last Admin: 10/11/19 08:13 Dose: 325 mg Hydralazine HCl (Apresoline -) 25 mg PO TID [facility] Last Admin: 10/11/19 06:01 Dose: 25 mg Isosorbide Mononitrate (Imdur -) 30 mg PO DAILY [facility] Last Admin: 10/10/19 09:40 Dose: 30 mg Labetalol HCl (Normodyne -) 200 mg PO BID [facility] Losartan Potassium (Cozaar -) 100 mg PO DAILY [facility] Last Admin: 10/10/19 09:41 Dose: 100 mg Nifedipine (Procardia Xl -) 120 mg PO DAILY [facility] Last Admin: 10/10/19 09:40 Dose: 120 mg Ondansetron HCl (Zofran -) 4 mg PO BID PRN PRN Reason: NAUSEA AND/OR VOMITING - Objective Vital Signs: Vital Signs Temperature 98.2 F 10/11/19 08:55 Pulse Rate 65 10/11/19 12:35 Respiratory Rate 18 10/11/19 12:35 Blood Pressure 172/61 H 10/11/19 12:35 O2 Sat by Pulse Oximetry (%) 96 10/10/19 23:00 Constitutional: Yes: No Distress, Anxious Eyes: Yes: Conjunctiva Clear HENT: Yes: Normocephalic Neck: Yes: Trachea Midline Cardiovascular: Yes: Regular Rate and Rhythm, S1, S2 Respiratory: Yes: CTA Bilaterally Gastrointestinal: Yes: Normal Bowel Sounds, Soft Genitourinary: No: Bladder Distention, CVA Tenderness - Left, CVA Tenderness - Right Edema: No Labs: CBC, BMP 10/11/19 09:00 Problem List - Problems (1) Anxiety Code(s): F41.9 - ANXIETY DISORDER, UNSPECIFIED (2) Uncontrolled hypertension Code(s): I10 - ESSENTIAL (PRIMARY) HYPERTENSION (3) CAD (coronary artery disease) Code(s): I25.10 - ATHSCL HEART DISEASE OF [place] CORONARY ARTERY W/O ANG PCTRS Qualifiers: Coronary Disease-Associated Artery/Lesion type: [place] artery [place] vs. transplanted heart: [place] heart Associated angina: without angina Qualified Code(s): I25.10 - Atherosclerotic heart disease of [place] coronary artery without angina pectoris (4) COPD (chronic obstructive pulmonary disease) Code(s): J44.9 - CHRONIC OBSTRUCTIVE PULMONARY DISEASE, UNSPECIFIED (5) ESRD (end stage renal disease) on dialysis Code(s): N18.6 - END STAGE RENAL DISEASE; Z99.2 - DEPENDENCE ON RENAL DIALYSIS (6) Hypertension Code(s): I10 - ESSENTIAL (PRIMARY) HYPERTENSION (7) Diabetes mellitus Code(s): E11.9 - TYPE 2 DIABETES MELLITUS WITHOUT COMPLICATIONS Qualifiers: Diabetes mellitus type: type 2 Diabetes mellitus complication status: with kidney complications Diabetes mellitus complication detail: with chronic kidney disease Chronic kidney disease stage: on chronic dialysis Assessment/Plan 84 year old woman with history of ESRD no HD, current smoker, DM, hypertension who presented from home with weakness and tremors and having missed dialysis. 1. ESRD on HD. H/o skipping dialysis regularly. Had uneventful HD yesterday. Next HD tomorrow. 2. Tremors/Weakness w/o evidence of CVA 3. Hypertension 4. DM 5. Anxiety 6. CKD related Anemia Hemodialysis well tolerated. Orders written on reviewed with the nurses. Epogen at the end of dialysis Cristela Canales MD
[2019-10-11] MEDS: BACITRACIN 15 GM TUBE TOPICAL OINTMENT TP SCH (13:41)
[2019-10-11] MEDS: CLOPIDOGREL BISULFATE 75 MG TABLET (FP) PO SCH (13:42)
[2019-10-11] MEDS: CALCITRIOL 0.25 MCG CAPSULE (FP) PO SCH (13:43)
[2019-10-11] MEDS: ASPIRIN 81 MG CHEWABLE TABLETS PO SCH (13:43)
[2019-10-11] MEDS: ISOSORBIDE MONONITRATE 30 MG TAB.SR.24H (FP) PO SCH (13:44)
[2019-10-11] MEDS: LOSARTAN POTASSIUM 50 MG TABLET (FP) PO SCH (13:44)
[2019-10-11] MEDS: CHOLESTYRAMINE/ASPARTAME 4 GM PACKET PO SCH ×2 (13:46→14:05)
[2019-10-11] MEDS: NIFEdipine E.R 60 MG TABLET PO SCH (13:53)
[2019-10-11 14:10] LABS: CREATININE 1.1 mg/dL (0.55-1.3)
[2019-10-11 14:27] VITALS: BP 157/102; PULSE 76; TEMP 98
[2019-10-11] MEDS: ALPRAZolam 0.25 MG TABLET PO PRN (17:22)
[2019-10-11] MEDS ORDERED: DOCUSATE SODIUM 100 MG CAPSULE (FP) PO SCH (22:00)
--- NOTE | 2019-10-11 22:34 | PN ---
Progress Note, Physician History of Present Illness: Pt is in HD suite ([address]) ready to start HD Pt w/o cough, SOB, CP, palpitations, dizziness, abd pain. - Objective Vital Signs: Vital Signs Temperature 98.0 F 10/11/19 14:26 Pulse Rate 76 10/11/19 14:26 Respiratory Rate 18 10/11/19 14:26 Blood Pressure 157/102 H 10/11/19 14:26 O2 Sat by Pulse Oximetry (%) 96 10/11/19 15:00 Constitutional: Yes: No Distress, Calm Cardiovascular: Yes: Regular Rate and Rhythm, S1, S2 Respiratory: Yes: Regular, Other (right base crackles) Gastrointestinal: Yes: Normal Bowel Sounds, Soft. No: Tenderness Edema: No Neurological: Yes: Alert, Oriented Labs: CBC, BMP 10/11/19 09:00 10/11/19 12:30 Problem List - Problems (1) TIA (transient ischemic attack) Code(s): G45.9 - TRANSIENT CEREBRAL ISCHEMIC ATTACK, UNSPECIFIED (2) Anxiety Code(s): F41.9 - ANXIETY DISORDER, UNSPECIFIED (3) Hypertension Code(s): I10 - ESSENTIAL (PRIMARY) HYPERTENSION (4) ESRD (end stage renal disease) on dialysis Code(s): N18.6 - END STAGE RENAL DISEASE; Z99.2 - DEPENDENCE ON RENAL DIALYSIS (5) CAD (coronary artery disease) Code(s): I25.10 - ATHSCL HEART DISEASE OF [place] CORONARY ARTERY W/O ANG PCTRS Qualifiers: Coronary Disease-Associated Artery/Lesion type: [place] artery [place] vs. transplanted heart: [place] heart Associated angina: without angina Qualified Code(s): I25.10 - Atherosclerotic heart disease of [place] coronary artery without angina pectoris (6) Diabetes mellitus Code(s): E11.9 - TYPE 2 DIABETES MELLITUS WITHOUT COMPLICATIONS Qualifiers: Diabetes mellitus type: type 2 Diabetes mellitus complication status: with kidney complications Diabetes mellitus complication detail: with chronic kidney disease Chronic kidney disease stage: on chronic dialysis (7) Uncontrolled hypertension Code(s): I10 - ESSENTIAL (PRIMARY) HYPERTENSION (8) Unsteady gait Code(s): R26.81 - UNSTEADINESS ON FEET Assessment/Plan I saw pt this AM while at HD; at that time we were waiting for APS evaluation of the case; I found out this evening that in the afternoon pt was DC'ed home after APS closed her case. Psychiatry consult is appreciated (pt was found to have capacity to make medical decisions). Neuro and Renal consults are appreciated. Labetalol and Hydralazine were added for better BP control. Xanax was increased to TID, PRN.
== END 2019-10-11 18:01 | disposition home or self-care (01) ==
LOC: JER 10:23 → INTOOBSV 18:31 → JERBED 18:31 → J2W 22:06 → J7W 10-08 22:32
PROVIDERS: ADMIT Specialist; ATTEND Specialist
PROC: 3E033GC Introduction of Other Therapeutic Substance into Peripheral Vein, Percutaneous Approach (ICD-10-PCS; principal; 2019-09-30)
PROC: 3E013GC Introduction of Other Therapeutic Substance into Subcutaneous Tissue, Percutaneous Approach (ICD-10-PCS; 2019-09-30)
DX: G45.8 Other transient cerebral ischemic attacks and related syndromes (principal); F41.9 Anxiety disorder, unspecified; E11.22 Type 2 diabetes mellitus with diabetic chronic kidney disease; I12.0 Hypertensive chronic kidney disease with stage 5 chronic kidney disease or end stage renal disease; N18.6 End stage renal disease; Z99.2 Dependence on renal dialysis; Z91.15 Patient's noncompliance with renal dialysis; Z87.891 Personal history of nicotine dependence; E78.5 Hyperlipidemia, unspecified; D64.9 Anemia, unspecified; I73.9 Peripheral vascular disease, unspecified; M19.90 Unspecified osteoarthritis, unspecified site; J44.9 Chronic obstructive pulmonary disease, unspecified; I25.10 Atherosclerotic heart disease of native coronary artery without angina pectoris; R01.1 Cardiac murmur, unspecified; F17.210 Nicotine dependence, cigarettes, uncomplicated; R41.0 Disorientation, unspecified; R25.1 Tremor, unspecified; R53.1 Weakness; R26.81 Unsteadiness on feet; Z89.421 Acquired absence of other right toe(s); Z95.1 Presence of aortocoronary bypass graft; Z88.0 Allergy status to penicillin; Z88.1 Allergy status to other antibiotic agents; Z91.013 Allergy to seafood; Z91.048 Other nonmedicinal substance allergy status; Z79.82 Long term (current) use of aspirin; Z79.02 Long term (current) use of antithrombotics/antiplatelets; Z99.89 Dependence on other enabling machines and devices
CPT/HCPCS: 36415; 70450-TC; 80048; 80053; 81003; 82550; 82565; 82962; 84100; 84484; 84520; 85025; 85027; 86803; 87340; 93005; 93010; 96372; 96374; 96375; 96376; 97116-GP; 97161-GP; 99285-25; G0378; J0885; J1644

== ENCOUNTER 2019-10-11 19:16 | Emergency (ER) | payer OTHER ==
[2019-10-11 19:36] VITALS: BP 98/57; BMI 19.5
--- NOTE | 2019-10-11 20:22 | PDOC ---
History of Present Illness - General Chief Complaint: Weakness Stated Complaint: DIFFICULTY OF WALKING Time Seen by Provider: 10/11/19 20:20 History Source: Patient Exam Limitations: No Limitations - History of Present Illness Initial Comments: 10/11/19 20:30 84 y/o female PMH ESRD (dialysis MWF), DM, HTN, CAD, anxiety, PVD presenting w extremity tremors and inability to walk. Was recently DC for tremors/inability to walk, negative CVA workup by neuro, cleared by psych, DC home after APS/ social work closed her case w concerns about insurance coverage. Pt also refused rehab placement. Denies extremity pain/numbness/urinary incontinence Past History - Past Medical History Allergies/Adverse Reactions: Allergies Allergy/AdvReac Type Severity Reaction Status Date / Time iodine Allergy Rash Verified 10/11/19 19:29 penicillin V Allergy Verified 10/11/19 19:29 shellfish derived Allergy Rash Verified 10/11/19 19:29 vancomycin Allergy Verified 10/11/19 19:29 azithromycin AdvReac Verified 10/11/19 19:29 Home Medications: Ambulatory Orders Aspirin [ASA -] 81 mg PO DAILY 02/19/19 Calcitriol [Calcitriol -] 0.25 mcg PO DAILY 02/19/19 Calcium Acetate 667 mg PO TID 02/19/19 Ferrous Sulfate 325 mg PO BID 05/25/19 Nifedipine ER [Procardia XL -] 120 mg PO DAILY #180 tab.er.24 05/28/19 Amitriptyline HCl [Elavil -] 50 mg PO HS #30 tablet 06/07/19 Cholestyramine/Aspartame [Questran Light Packet -] 4 gm PO BID packet 07/05/19 Ondansetron [Zofran -] 4 mg PO BID PRN tablet 07/12/19 Losartan Potassium [Cozaar -] 100 mg PO DAILY 08/09/19 Atorvastatin Ca [Lipitor] 80 mg PO HS #90 tablet 08/21/19 Clopidogrel Bisulfate [Plavix -] 75 mg PO DAILY #90 tablet 08/21/19 Isosorbide Mononitrate [Imdur -] 30 mg PO DAILY #90 tab.sr.24h 08/21/19 Acetaminophen [Tylenol .Regular Strength -] 650 mg PO Q6H PRN tablet 09/04/19 Bacitracin - [Bacitracin Topical Ointment -] 1 applic TP DAILY tube 09/04/19 Sodium Zirconium Cyclosilicate [Lokelma] 10 gm PO DAILY packet 09/18/19 Cyclobenzaprine HCl 5 mg PO BID PRN #30 tablet 10/06/19 Labetalol HCl [Normodyne -] 200 mg PO BID #60 tablet 10/06/19 hydrALAZINE HCL [Apresoline -] 25 mg PO BID #60 tablet 10/06/19 Alprazolam [Xanax] 0.25 mg PO Q8H PRN #90 tablet MDD 3 10/07/19 Anemia: Yes Asthma: Yes Cancer: No Cardiac Disorders: Yes (PAD,CAD, PVD) CVA: No COPD: Yes CHF: No DVT: No Dementia: No Diabetes: Yes Dialysis: Yes (m,w,f) GI Disorders: Yes (chronic diarrhea) Disorders: No HTN: Yes Hypercholesterolemia: Yes Liver Disease: No Seizures: No Thyroid Disease: No - Surgical History Abdominal Surgery: No Appendectomy: No Cardiac Surgery: Yes (FEMORAL BYPASS) Cholecystectomy: Yes Lung Surgery: No Neurologic Surgery: No Orthopedic Surgery: Yes (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) - Immunization History Td Vaccination: Yes TDAP Vaccination: Yes Immunization Up to Date: Yes - Psycho Social/Smoking Cessation Hx Smoking Status: Yes Smoking History: Unknown if ever smoked Have you smoked in the past 12 months: No Number of Cigarettes Smoked Daily: 20 If you are a former smoker, when did you quit?: 08/10/2012 Cigars Per Day: 30 Information on smoking cessation initiated: No 'Breaking Loose' booklet given: 10/01/19 Hx Alcohol Use: No Drug/Substance Use Hx: No Substance Use Type: Alcohol Hx Substance Use Treatment: No Review of Systems - Review of Systems Constitutional: No: Chills, Fever HEENTM: No: Eye Pain, Nose Pain Respiratory: No: Cough, Shortness of Breath Cardiac (ROS): No: Chest Pain, Palpitations ABD/GI: No: Abdominal Distended, Constipated, Diarrhea : No: Burning, Dysuria Musculoskeletal: No: Back Pain, Joint Pain Integumentary: No: Bruising, Flushing Neurological: No: Headache, Seizure Psychiatric: No: Anxiety, Depression Endocrine: No: Intolerance to Cold, Intolerance to Heat Hematologic/Lymphatic: No: Anemia, Blood Clots *Physical Exam - Vital Signs Last Vital Signs Temp Pulse Resp BP Pulse Ox 97.9 F 60 20 98/57 L 100 10/11/19 19:29 10/11/19 19:29 10/11/19 19:29 10/11/19 19:29 10/11/19 19:29 - Physical Exam General Appearance: Yes: Nourished, Appropriately Dressed. No: Apparent Distress HEENT: positive: EOMI, CHRISTINA, Normal Voice. negative: Scleral Icterus (R), Scleral Icterus (L) Respiratory/Chest: positive: Lungs Clear, Normal Breath Sounds. negative: Chest Tender, Respiratory Distress Cardiovascular: positive: Regular Rhythm, Regular Rate, S1, S2. negative: Edema , Murmur Vascular Pulses: Dorsalis-Pedis (R): 2+, Doralis-Pedis (L): 2+ Integumentary: positive: Normal Color Neurologic: positive: donor relations officer II-XII NML intact, Fully Oriented, Alert, Normal Mood/ Affect, Normal Response, Motor Strength 5/5, Respond to painful stimul, Responsive, Other (no tremors on exam, pt refused on stand). negative: Numbness , Sensory Deficit, Confused, Disoriented Medical Decision Making - Medical Decision Making 10/11/19 23:00 84 y/o female PMH ESRD (dialysis MWF), DM, HTN, CAD, anxiety, PVD presenting w extremity tremors and inability to walk. No tremors, no neuro deficits on exam. Likely anxiety. Low concern for CVA (no focal neuro deficits) vs spinal stenosis (neg straight leg raise) Pt refused to leave ED. Competent to make own decisions Talked w Dr Barahona and pt, plan to DC at 9am on 10/12/19 Signed off to day team Discharge - Discharge Information Problems reviewed: Yes Clinical Impression/Diagnosis: Weakness Condition: Stable Disposition: HOME - Admission No - Follow up/Referral Referrals: Angela Barahona [Primary Care Provider] - - Patient Discharge Instructions Additional Instructions: Follow up with your primary care doctor - Post Discharge Activity
--- NOTE | 2019-10-11 20:58 | PDOC ---
Attending Attestation - Resident Resident Name: JenniferClayton - ED Attending Attestation I have performed the following: I have examined & evaluated the patient, The case was reviewed & discussed with the resident, I agree w/resident's findings & plan - HPI HPI: 10/11/19 22:13 Pt comes with complaint that she feels unsteady on her feet. She is anxious and she lives alone. She tells me that she ws just relesed from the ER. Pt is anxious and she acually is able to walk with her walker; though we discussed that she is getting older and that she needs a pln for the future ([facility] or NH or rehab) given that she has no kids and no relatives. - Physicial Exam PE: 10/13/19 20:46 Pt has a normal exam She is thin A+Ox3 no distress afebrile heart lungs normal abd soft NT ND no flank pain. Pt is able to move all extremities. Pt had a neuro exam/consult in house a couple days back. Pt was found to have only chronic neuro finings. Neuro consult deemed that pt was stable for outpatient followup. - Medical Decision Making 10/13/19 20:48 I discussed case with MATTY Barahona; he agrees that pt is stable for d/c in the AM Pt is refusing to take ambulette; she would rather arrange her own cab service home.
[2019-10-12 07:09] VITALS: PULSE 70; TEMP 98.2
--- NOTE | 2019-10-12 07:26 | PDOC ---
Medical Decision Making - Medical Decision Making Pt signed out to me by Dr. Matthews, see prior note. 84 year old PMH ESRD (M/W/F HD), DM, HTN, CAD, anxiety, PVD presented to ED after being discharged from an admission earlier in the day. Night team reported pt refused to go inside her house when the ambulance tried to drop her off 2/2 extremity tremors and difficulty walking. Dr. Barahona was called, he reported pt is to be discharged with OP F/U. Pt to leave at 0900 today when she can call a cab. 10/12/19 11:37 Pt has full strength, is ambulatory, no shaking of the lower extremities visualized or palpated. Pt reported she wishes to be sent to [facility] or rehab facility. Pt reported she has spoke with social work about facilities with HD capabilities, but can only go to a place that she does not owe money to. Pt advised to F/U with PCP regarding physical therapy. Pt offered cab with voucher, declined. Pt offered ambulance, did not qualify. Pt offered ambulette, will be $65. Discharge - Discharge Information Problems reviewed: Yes Clinical Impression/Diagnosis: Weakness Condition: Stable Disposition: HOME - Follow up/Referral Referrals: Angela Barahona [Primary Care Provider] - - Patient Discharge Instructions Additional Instructions: Follow up with your primary care doctor - Post Discharge Activity
== END 2019-10-12 12:00 | disposition home or self-care (01) ==
LOC: JER 19:16
DX: R53.1 Weakness (principal); F41.9 Anxiety disorder, unspecified; I25.10 Atherosclerotic heart disease of native coronary artery without angina pectoris; I13.11 Hypertensive heart and chronic kidney disease without heart failure, with stage 5 chronic kidney disease, or end stage renal disease; N18.6 End stage renal disease; Z99.2 Dependence on renal dialysis; E11.9 Type 2 diabetes mellitus without complications; E78.5 Hyperlipidemia, unspecified; I73.89 Other specified peripheral vascular diseases; D64.9 Anemia, unspecified; Z79.82 Long term (current) use of aspirin; Z79.02 Long term (current) use of antithrombotics/antiplatelets; J45.909 Unspecified asthma, uncomplicated; J44.9 Chronic obstructive pulmonary disease, unspecified; Z89.421 Acquired absence of other right toe(s); Z88.0 Allergy status to penicillin; Z88.1 Allergy status to other antibiotic agents; Z91.013 Allergy to seafood
CPT/HCPCS: 99282-25

== ENCOUNTER 2019-10-16 09:00 | Emergency (ER) | payer OTHER ==
[2019-10-16 09:09] VITALS: BMI 19.8
[2019-10-16 09:55] LABS: BASO % 1.5 % (0-2.0); EOS % 3.9 % (0-4.5); HEMATOCRIT 37.6 % (32.4-45.2); HEMOGLOBIN 12.4 GM/dL (10.7-15.3); LYMPH % 15.2 % (8-40); MCH 31.9 pg (25.7-33.7); MCHC 32.9 g/dl (32.0-36.0); MEAN PLT VOLUME 8.5 fl (7.5-11.1); MONO % 6.7 % (3.8-10.2); NEUT % 72.7 % (42.8-82.8); PLATELET COUNT 291 K/MM3 (134-434); RBC 3.88 M/mm3 (3.60-5.2); RDW 15.6 % (11.6-15.6); WHITE BLOOD COUNT 7.4 K/mm3 (4.0-10.0)
[2019-10-16 10:30] LABS: ALBUMIN 3.4 g/dl (3.4-5.0); BILIRUBIN,TOTAL 0.3 mg/dL (0.2-1); BLOOD UREA NITROGEN 55.5 mg/dL (7-18); CALCIUM 8.7 mg/dL (8.5-10.1); POTASSIUM 4.8 mmol/L (3.5-5.1); TOT PROT 7.6 g/dl (6.4-8.2)
--- NOTE | 2019-10-16 10:38 | PDOC ---
Documentation entered by Pauline Reis SCRIBE, acting as scribe for Purnima Chen MD. Purnima Chen MD: This documentation has been prepared by the [employer], SCRIBE, under my direction and personally reviewed by me in its entirety. I confirm that the documentation accurately reflects all work, treatment, procedures, and medical decision making performed by me. History of Present Illness - General Chief Complaint: Blood Pressure Problem Stated Complaint: MISSED DIALYSIS History Source: Patient Exam Limitations: No Limitations - History of Present Illness Initial Comments: 10/16/19 09:32 The patient is an 84 year old female, with a significant past medical history of htn, esrd (on hd m,w, f), diabetes, anemia, anxiety, pvd, oa, 64 pack-year smoker, who presents to the emergency department secondary to missing dialysis. As per patient, she missed her dialysis session today, Monday (10/16/19) secondary to not being able to get ready at 7am. Pt states her last dialysis was 10/11/2019. The patient denies chest pain, shortness of breath, headache and dizziness. Denies fever, chills, cough, nausea, vomiting, diarrhea and constipation. Allergies: Iodine, penicillin, vancomycin, azithromycin PCP: Dr. Flores Barahona Past History - Past Medical History Allergies/Adverse Reactions: Allergies Allergy/AdvReac Type Severity Reaction Status Date / Time iodine Allergy Rash Verified 10/16/19 09:23 penicillin V Allergy Verified 10/16/19 09:23 shellfish derived Allergy Rash Verified 10/16/19 09:23 vancomycin Allergy Verified 10/16/19 09:23 azithromycin AdvReac Verified 10/16/19 09:23 Home Medications: Ambulatory Orders Aspirin [ASA -] 81 mg PO DAILY 02/19/19 Calcitriol [Calcitriol -] 0.25 mcg PO DAILY 02/19/19 Calcium Acetate 667 mg PO TID 02/19/19 Ferrous Sulfate 325 mg PO BID 05/25/19 Nifedipine ER [Procardia XL -] 120 mg PO DAILY #180 tab.er.24 05/28/19 Amitriptyline HCl [Elavil -] 50 mg PO HS #30 tablet 06/07/19 Cholestyramine/Aspartame [Questran Light Packet -] 4 gm PO BID packet 07/05/19 Ondansetron [Zofran -] 4 mg PO BID PRN tablet 07/12/19 Losartan Potassium [Cozaar -] 100 mg PO DAILY 08/09/19 Atorvastatin Ca [Lipitor] 80 mg PO HS #90 tablet 08/21/19 Clopidogrel Bisulfate [Plavix -] 75 mg PO DAILY #90 tablet 08/21/19 Isosorbide Mononitrate [Imdur -] 30 mg PO DAILY #90 tab.sr.24h 08/21/19 Acetaminophen [Tylenol .Regular Strength -] 650 mg PO Q6H PRN tablet 09/04/19 Bacitracin - [Bacitracin Topical Ointment -] 1 applic TP DAILY tube 09/04/19 Sodium Zirconium Cyclosilicate [Lokelma] 10 gm PO DAILY packet 09/18/19 Cyclobenzaprine HCl 5 mg PO BID PRN #30 tablet 10/06/19 Labetalol HCl [Normodyne -] 200 mg PO BID #60 tablet 10/06/19 hydrALAZINE HCL [Apresoline -] 25 mg PO BID #60 tablet 10/06/19 Alprazolam [Xanax] 0.25 mg PO Q8H PRN #90 tablet MDD 3 10/07/19 Anemia: Yes Asthma: Yes Cancer: No Cardiac Disorders: Yes (PAD,CAD, PVD) CVA: No COPD: Yes CHF: No DVT: No Dementia: No Diabetes: Yes Dialysis: Yes (m,w,f) GI Disorders: Yes (chronic diarrhea) Disorders: No HTN: Yes Hypercholesterolemia: Yes Liver Disease: No Seizures: No Thyroid Disease: No - Surgical History Abdominal Surgery: No Appendectomy: No Cardiac Surgery: Yes (FEMORAL BYPASS) Cholecystectomy: Yes Lung Surgery: No Neurologic Surgery: No Orthopedic Surgery: Yes (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) - Immunization History Td Vaccination: Yes TDAP Vaccination: Yes Immunization Up to Date: Yes - Psycho Social/Smoking Cessation Hx Smoking Status: Yes Smoking History: Current every day smoker Have you smoked in the past 12 months: No Number of Cigarettes Smoked Daily: 10 If you are a former smoker, when did you quit?: 08/10/2012 Cigars Per Day: 30 Information on smoking cessation initiated: Yes 'Breaking Loose' booklet given: 10/01/19 Hx Alcohol Use: No Drug/Substance Use Hx: No Substance Use Type: Alcohol Hx Substance Use Treatment: No Review of Systems - Review of Systems Able to Perform ROS?: Yes Comments:: 10/16/19 09:33 GENERAL/CONSTITUTIONAL: No fever or chills. No weakness. +missed dialysis HEAD, EYES, EARS, NOSE AND THROAT: No change in vision. No ear pain or discharge. No sore throat. CARDIOVASCULAR: No chest pain or shortness of breath. RESPIRATORY: No cough, wheezing, or hemoptysis. GASTROINTESTINAL: No nausea, vomiting, diarrhea or constipation. GENITOURINARY: No dysuria, frequency, or change in urination. MUSCULOSKELETAL: No joint or muscle swelling or pain. No neck or back pain. SKIN: No rash NEUROLOGIC: No headache, vertigo, loss of consciousness, or change in strength/ sensation. ENDOCRINE: No increased thirst. No abnormal weight change. HEMATOLOGIC/LYMPHATIC: No anemia, easy bleeding, or history of blood clots. ALLERGIC/IMMUNOLOGIC: No hives or skin allergy. *Physical Exam - Vital Signs Last Vital Signs Temp Pulse Resp BP Pulse Ox 97.9 F 89 19 214/95 H 97 10/16/19 09:07 10/16/19 09:07 10/16/19 09:07 10/16/19 09:07 10/16/19 09:07 - Physical Exam 10/16/19 10:36 Awake alert no acute distress lungs are clear bilaterally without crackles. Heart is regular 30 murmurs rubs or gallops abdomen is soft nontender extremities are warm and well-perfused there is no noted edema neurologically patient is awake alert and oriented x3 moving all 4 extremities ED Treatment Course - LABORATORY CBC & Chemistry Diagram: 10/16/19 09:36 10/16/19 09:36 - ADDITIONAL ORDERS Additional order review: Laboratory Results 10/16/19 09:36 Sodium 139 Potassium 4.8 Chloride 105 Carbon Dioxide 21 Anion Gap 13 BUN 55.5 H Est GFR (CKD-EPI)AfAm 3.90 Est GFR (CKD-EPI)NonAf 3.36 Random Glucose 119 H Calcium 8.7 Total Bilirubin 0.3 AST 22 ALT 27 Alkaline Phosphatase 90 Total Protein 7.6 Albumin 3.4 10/16/19 09:36 RBC 3.88 MCV 97.0 H MCHC 32.9 RDW 15.6 MPV 8.5 D Neutrophils % 72.7 D Lymphocytes % 15.2 D Monocytes % 6.7 Eosinophils % 3.9 Basophils % 1.5 Medical Decision Making - Medical Decision Making 10/16/19 10:36 84-year-old female history of anxiety hypertension end-stage renal disease dialyzed usually Monday history of multiple ED visits after missing dialysis here today stating she was unable to go to dialysis because she could not get ready in time states that she had to get up and 5 in the morning it was too difficult for her to get dressed at that time before she came to the ER her last dialysis was 5 days ago denies any shortness of breath or chest pain however is noted to be hypertensive in the ED. 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 unable to get on outpatient schedule for dialysis today as slots are full, pt missed am appointemnt. will admit. givein 20 mg iv labetalol. will dialyze here. d/w dr barahona, will observe patient for dialysis. Discharge - Discharge Information Problems reviewed: Yes Clinical Impression/Diagnosis: ESRD (end stage renal disease) on dialysis - Admission Yes - Follow up/Referral Referrals: Angela Barahona [Primary Care Provider] - - Patient Discharge Instructions - Post Discharge Activity
[2019-10-16 10:39] LABS: CREATININE 9.7 mg/dL (0.55-1.3)
[2019-10-16] MEDS ORDERED: LABETALOL HCL 5 MG/1 ML (100MG/20 ML VIAL) IVPUSH ONE (11:17)
[2019-10-16] MEDS ORDERED: LABETALOL HCL 5 MG/1 ML (200MG/40ML VIAL) IVPB ONE (11:27)
[2019-10-16] MEDS ORDERED: SODIUM CHLORIDE 250 ML IV PRN (11:40)
--- NOTE | 2019-10-16 14:53 | CONSULT ---
Consult - text type - Consultation Consultation Note: Renal consult for ESRD on HD This is a 84 year old woman with history of ESRD on HD, hypertension, current smoker, history of non-compliance with dialysis presents with missed dialysis treatment and noted to have very elevated blood pressures. Pt last had dialysis on Monday in the hospital. She denies any PARR, chest pain, shortness of breath, abdominal pain, N/V/D. She reports taking her BP meds this morning. PMHx: as above Allergies: as listed in EMR Family Hx: NC Social Hx: + Tobacco ROS: as per HPI, all other pertinent ros negative Home Medications Medication Instructions Recorded Aspirin [ASA -] 81 mg PO DAILY 02/19/19 Calcitriol [Calcitriol -] 0.25 mcg PO DAILY 02/19/19 Calcium Acetate 667 mg PO TID 02/19/19 Ferrous Sulfate 325 mg PO BID 05/25/19 Nifedipine ER [Procardia XL -] 120 mg PO DAILY #180 tab.er.24 05/28/19 Amitriptyline HCl [Elavil -] 50 mg PO HS #30 tablet 06/07/19 Cholestyramine/Aspartame [Questran 4 gm PO BID packet 07/05/19 Light Packet -] Ondansetron [Zofran -] 4 mg PO BID PRN tablet 07/12/19 Losartan Potassium [Cozaar -] 100 mg PO DAILY 08/09/19 Atorvastatin Ca [Lipitor] 80 mg PO HS #90 tablet 08/21/19 Clopidogrel Bisulfate [Plavix -] 75 mg PO DAILY #90 tablet 08/21/19 Isosorbide Mononitrate [Imdur -] 30 mg PO DAILY #90 tab.sr.24h 08/21/19 Acetaminophen [Tylenol .Regular 650 mg PO Q6H PRN tablet 09/04/19 Strength -] Bacitracin - [Bacitracin Topical 1 applic TP DAILY tube 09/04/19 Ointment -] Sodium Zirconium Cyclosilicate 10 gm PO DAILY packet 09/18/19 [Lokelma] Cyclobenzaprine HCl 5 mg PO BID PRN #30 tablet 10/06/19 Labetalol HCl [Normodyne -] 200 mg PO BID #60 tablet 10/06/19 hydrALAZINE HCL [Apresoline -] 25 mg PO BID #60 tablet 10/06/19 Alprazolam [Xanax] 0.25 mg PO Q8H PRN #90 tablet MDD 3 10/07/19 Vital Signs Temperature 98.3 F 10/16/19 12:15 Pulse Rate 77 10/16/19 14:20 Respiratory Rate 18 10/16/19 14:20 Blood Pressure 156/77 10/16/19 14:20 O2 Sat by Pulse Oximetry (%) 99 10/16/19 11:54 NAD awake and alert neck supple RRR, no M/R CTA, no rales or wheeze soft NT/ND no LE edema, clubbing or cyanosis Right IJ tunneled HD catheter, clean dressing No focal neurologic deficits CBC, BMP 10/16/19 09:36 10/16/19 09:36 Current Medications Sodium Chloride (Normal Saline -) 250 mls @ 3,000 mls/hr IV PRN PRN PRN Reason: Hypotension during Dialysis Stop: 10/17/19 11:40 84 year old woman with history of ESRD on HD, hypertension, current smoker, history of non-compliance with dialysis presents with missed dialysis treatment and noted to have very elevated blood pressures. 1. Hypertensive urgency in setting of missed dialysis 2. ESRD on HD 3. Essential hypertension 4. Anxiety Will arrange for dialysis with [facility] as an inpatient. Discussed importance with compliance with her dialysis treatments and medications. S/p Labetalol in the ER. BP improved on dialysis can be discharged home s/p dialysis and continue outpatient dialysis on Monday. Thank you Quentin Goyal DO
[2019-10-16 16:28] VITALS: BP 121/62; PULSE 96; TEMP 97.6
--- NOTE | 2019-10-16 16:34 | EKG ---
Test Reason : Blood Pressure : / mmHG Vent. Rate : 075 BPM Atrial Rate : 075 BPM P-R Int : 178 ms QRS Dur : 102 ms QT Int : 398 ms P-R-T Axes : 051 059 047 degrees QTc Int : 444 ms NORMAL SINUS RHYTHM NONSPECIFIC T WAVE ABNORMALITY ABNORMAL ECG Confirmed by MD HARMEET, EVELIO ([id number]) on 10/16/2019 4:34:21 PM Referred By: Confirmed By:EVELIO GA MD
== END 2019-10-16 17:54 | disposition home or self-care (01) ==
LOC: JER 09:00 → JERBED 11:48 → UNDOADMOB 11:48 → JER 17:54
PROC: 3E033GC Introduction of Other Therapeutic Substance into Peripheral Vein, Percutaneous Approach (ICD-10-PCS; principal; 2019-10-16)
DX: Z76.89 Persons encountering health services in other specified circumstances (principal); E11.22 Type 2 diabetes mellitus with diabetic chronic kidney disease; I12.0 Hypertensive chronic kidney disease with stage 5 chronic kidney disease or end stage renal disease; N18.6 End stage renal disease; Z99.2 Dependence on renal dialysis; F41.9 Anxiety disorder, unspecified; M19.90 Unspecified osteoarthritis, unspecified site; F17.210 Nicotine dependence, cigarettes, uncomplicated; Z88.8 Allergy status to other drugs, medicaments and biological substances; Z88.0 Allergy status to penicillin; Z91.013 Allergy to seafood
CPT/HCPCS: 36415; 80053; 85025; 93005; 93010; 99284-25